=== PATIENT | female | born 1940 | race Caucasian/White ===

== ENCOUNTER → 2017-11-16 10:17 | Outpatient (CLI) | payer MEDICARE, OTHER, SELFPAY ==
--- NOTE | 2017-11-16 10:21 | US_ITS ---
STUDY: ABDOMINAL ULTRASOUND REASON FOR EXAM: Female, 77 years old. Abdominal pain. TECHNIQUE: Transabdominal ultrasound was performed with real-time and static gomez scale imaging. TECHNICAL QUALITY: Adequate. COMPARISON: None. FINDINGS: Liver: The liver measures 13.5 cm. There is normal echogenicity of the liver. The bile ducts are within normal limits. There is hepatic color flow. The direction of portal flow is hepatopetal. There is no demonstrated mass lesion. Gallbladder: Normal distended gallbladder. The gallbladder wall measures 1.9 mm. There is a negative sonographic Molina's sign. There is no pericholecystic fluid. There are no gallstones. Common Bile Duct (C.B.D.): The common bile duct measures 4.4 mm. Pancreas: Normal size of the head, body and tail of the pancreas. There is normal echogenicity of the pancreas. There is no demonstrated pancreatic mass or cyst. Spleen: Normal size of the spleen. The spleen measures 8.4 cm. Right Kidney: Normal size of the right kidney. The right kidney measures 9.3 cm in length. Normal renal cortex. The right cortex measures 1.0 cm. There is no demonstrated renal mass or cyst. There is no right hydronephrosis. Left Kidney: Normal size of the left kidney. The left kidney measures 7.5 cm in length. Normal renal cortex. The left cortex measures 1.2 cm. There is no demonstrated renal mass or cyst. There is no left hydronephrosis. Aorta: The visualized abdominal aorta is within normal limits. I.V.C.: The IVC is patent. There is no ascites. US/Abdomen Complete IMPRESSION: Normal abdominal ultrasound examination. Electronically Signed: Yulissa Reilly MD at 11:23 EDT Tel , Service support ,
== END ==
PROVIDERS: Family Provider Nurse Practitioner; PCP Nurse Practitioner; Visit Provider Nurse Practitioner
DX: R10.9 Unspecified abdominal pain (principal)
CPT/HCPCS: 76700

== ENCOUNTER → 2018-02-12 14:14 | Outpatient (CLI) | payer MEDICARE, OTHER, SELFPAY ==
--- NOTE | 2018-02-12 14:18 | RAD_ITS ---
STUDY: X-RAY - PELVIS AND RIGHT HIP REASON FOR EXAM: Female, 77 years old. Hip pain TECHNIQUE: Radiological exam, hip, unilateral, with pelvis when performed; minimum of 4 views COMPARISON: None. FINDINGS: There is a non-specific bowel gas pattern. Normal visualized soft tissue structures. Normal bilateral iliac wings, sacroiliac joints and visualized sacrum. Normal bilateral superior and inferior pubic rami. Normal pubic symphysis. Normal bilateral ischial tuberosities. There are degenerative changes of the visualized lumbar spine. Normal visualized femoral head. Normal acetabulum. Normal hip joint. RAD/HIP, UNI W/ Pelvis 2-3 Views IMPRESSION: Degenerative changes of the visualized lumbar spine. The bony pelvis and left and right hips are unremarkable. Electronically Signed: Justo Kennedy MD at 23:54 EDT , Service support ,
== END ==
PROVIDERS: Family Provider Nurse Practitioner; PCP Nurse Practitioner; Visit Provider Nurse Practitioner
DX: M25.551 Pain in right hip (principal)
CPT/HCPCS: 73502

== ENCOUNTER → 2018-03-22 13:22 | Outpatient (CLI) | payer MEDICARE, OTHER, SELFPAY ==
--- NOTE | 2018-03-22 13:25 | BI_ITS ---
MAMMOGRAPHY - BILATERAL SCREENING REASON FOR EXAM: Female, 77 years old. Routine annual screening examination. PERTINENT HISTORY: Non-contributory. TECHNIQUE: Digital bilateral breast iván (3D mammographic acquisition) in the CC and MLO projections. 2-D mediolateral oblique (MLO) and craniocaudad (CC) views of both breasts were obtained. CAD: Full Field Digital Mammography with Computer Added Detection was performed. COMPARISON: Comparison is made with prior study date March 09, 2017 and February 29, 2016. FINDINGS: Breast Composition: There are scattered areas of fibroglandular density. There are no dominant masses or suspicious calcifications. No other significant abnormalities are identified. There has been no significant change since the prior study. BI/SCREENING MAMM (CAD), BILAT IMPRESSION: Stable bilateral screening mammogram. Yearly follow-up mammogram recommended. (A) ASSESSMENT CATEGORY: BIRADS Category 1: Negative. A letter regarding these results will be sent to the patient by the facility within 30 days. Approximately 10% of breast cancers are not detected by mammography. A normal mammogram should not delay biopsy of a clinically suspicious abnormality. [id number] Electronically Signed: Sergio Perea MD at 10:28 EDT Tel [phone], Service support ,
--- NOTE | 2018-03-22 14:16 | BD_ITS ---
STUDY: DUAL ENERGY X-RAY ABSORPTIOMETRY / DXA REASON FOR EXAM: Female, 77 years old. The patient is postmenopausal. Loss of height. TECHNIQUE: Bone Mineral Density (BMD) measurements of lumbar spine and bilateral hips were obtained. COMPARISON: Comparison is made with prior examination dated April 25, 2013. FINDINGS: Lumbar Spine (L1-L4): g/cm2 (1.094) / T-score (-0.6) / Z-score (1.2) Findings are suggestive of normal bone density with a low fracture risk. Left Femur Total: g/cm2 (1.027) / T-score (0.2) / Z-score (2.1) Left Femoral Neck: g/cm2 (1.048) / T-score (0.1) / Z-score (2.2) Right Femur Total: g/cm2 (0.947) / T-score (-0.5) / Z-score (1.4) Right Femoral Neck: g/cm2 (0.979) / T-score (0.4) / Z-score (1.7) The T-Scores on the most recent prior examination were: Lumbar Spine (L1-L4): There has been worsening of bone density since the previous examination. Left Femur Total: which represents an improvement of 2.3%. Right Femur Total: which represents a worsening of 7.8%. BD/Dexa Bone Density Study IMPRESSION: The patient is considered normal as outlined below according to World Nico Organization (WHO) criteria with a low fracture risk. There has been worsening of bone density since the previous examination. Reference Information: The T-score is the number of standard deviations above or below the standard which is normal for young adults at their peak bone mineral density. The World Health Organization (WHO) interprets the T-scores as follows: Above -1 Normal bone density Between -1 and -2.5 Osteopenia Equal to / or below -2.5 Osteoporosis As a practical clinical guideline, osteopenia may be graded as follows: Mild -1 through -1.5 Moderate -1.6 through -2.0 Severe -2.1 through -2.4 The Z-score is the number of standard deviations above or below age-matched controls. A Z-score of less than -1.5 would be considered abnormal. References: 1. NIH Osteoporosis and Related Bone Diseases http://www.osteo.org 2. International Society for Clinical Densitometry http://www.iscd.org 3. National Osteoporosis Foundation http://www.nof.org Electronically Signed: Sergio Perea MD at 15:16 EDT Tel [phone], Service support ,
== END ==
PROVIDERS: Family Provider Nurse Practitioner; PCP Nurse Practitioner; Visit Provider Nurse Practitioner
DX: Z12.31 Encounter for screening mammogram for malignant neoplasm of breast (principal); Z78.0 Asymptomatic menopausal state
CPT/HCPCS: 77063; 77067; 77080

== ENCOUNTER 2018-05-04 12:15 | Outpatient (RCR) | payer MEDICARE, OTHER, SELFPAY ==
[2018-05-01 10:05] VITALS: BP 150/69; PULSE 80; RESP 18; TEMP 36.9; BMI 35.7
--- NOTE | 2018-05-01 10:54 | PCM.WC.HP ---
(1) GERD (gastroesophageal reflux disease) Status: Chronic Current Visit: No Code(s): K21.9 - Gastro-esophageal reflux disease without esophagitis (2) Osteoarthritis Status: Chronic Current Visit: No Code(s): M19.90 - Unspecified osteoarthritis, unspecified site (3) Edema of both legs Status: Chronic Current Visit: Yes Code(s): R60.0 - Localized edema (4) Hiatal hernia Status: Chronic Current Visit: No Code(s): K44.9 - Diaphragmatic hernia without obstruction or gangrene (5) Atherosclerotic heart disease of [place] coronary artery without angina pectoris Status: Chronic Current Visit: No Qualifiers: [place] vs. transplanted heart: [place] heart Code(s): I25.10 - Atherosclerotic heart disease of [place] coronary artery without angina pectoris (6) Failure to thrive Status: Chronic Current Visit: No Code(s): [id number] - (7) Positional vertigo Status: Chronic Current Visit: No Code(s): H81.10 - Benign paroxysmal vertigo, unspecified ear (8) Obesity Status: Chronic Current Visit: Yes Code(s): E66.9 - Obesity, unspecified (9) Hx of venous thrombosis and embolism Status: Chronic Current Visit: Yes Code(s): Z86.718 - Personal history of other venous thrombosis and embolism (10) history of cellulitis of leg Status: Chronic Current Visit: No (11) Leg swelling Status: Chronic Current Visit: Yes Code(s): M79.89 - Other specified soft tissue disorders (12) Hyperpigmentation of skin Status: Chronic Current Visit: Yes Code(s): L81.9 - Disorder of pigmentation, unspecified (13) Lipodermatosclerosis Status: Chronic Current Visit: Yes Code(s): I83.10 - Varicose veins of unspecified lower extremity with inflammation (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 Current Visit: Yes Code(s): I87.093 - Postthrombotic syndrome with other complications of bilateral lower extremity (15) Chronic venous hypertension (idiopathic) with inflammation of bilateral lower extremity Status: Chronic Current Visit: Yes Code(s): I87.323 - Chronic venous hypertension (idiopathic) with inflammation of bilateral lower extremity (16) Non-pressure chronic ulcer of left calf with fat layer exposed Status: Resolved Current Visit: Yes Code(s): L97.222 - Non-pressure chronic ulcer of left calf with fat layer exposed (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 Current Visit: No Code(s): E11.59 - Type 2 diabetes mellitus with other circulatory complications (18) Hyperlipidemia Status: Chronic Current Visit: No Qualifiers: Code(s): E78.5 - Hyperlipidemia, unspecified (19) Diabetes Status: Chronic Current Visit: No Code(s): E11.9 - Type 2 diabetes mellitus without complications (20) Hypertension Status: Chronic Current Visit: No Qualifiers: Code(s): I10 - Essential (primary) hypertension (21) Chronic venous hypertension (idiopathic) with ulcer of left lower extremity Status: Chronic Current Visit: Yes Code(s): I87.312 - Chronic venous hypertension (idiopathic) with ulcer of left lower extremity (22) Chronic venous stasis dermatitis Status: Chronic Current Visit: Yes Code(s): I87.2 - Venous insufficiency (chronic) (peripheral) (23) Non-pressure chronic ulcer of left ankle with fat layer exposed Status: Resolved Current Visit: Yes Code(s): L97.322 - Non-pressure chronic ulcer of left ankle with fat layer exposed (24) Type 2 diabetes mellitus Status: Chronic Current Visit: No Code(s): E11.9 - Type 2 diabetes mellitus without complications (25) Venous stasis ulcer Status: Chronic Current Visit: Yes Code(s): I83.009 - Varicose veins of unspecified lower extremity with ulcer of unspecified site; L97.909 - Non-pressure chronic ulcer of unspecified part of unspecified lower leg with unspecified severity History of Present Illness Chief Complaint: Severe swelling, edema, and lymphedema of the lower extremities associated with severe hyperpigmentation and lipodermatosclerosis; venous stasis dermatitis and venous stasis ulceration of left lower extremity; recent cat scratch of the left lower extremity History of Wound: This is a 77-year-old female who presents with an open wound on the distal aspect of the left lower extremity involving the gaiter area. According to the patient, she sustained a cat scratch by a strange cat approximately 3 weeks ago, which resulted in cellulitis. She has been evaluated by her primary care physician, at [facility], and has been prescribed Augmentin to be taken twice daily for a total of 10 days. She is in the midst of this prescription. Of significance, the patient has been treated in the past for manifestations of chronic venous disease, and has been advised of the proper conservative treatment measures relative to the management of this disease. Nonetheless, she has been largely noncompliant. She possesses graduated compression stockings, but has not been wearing them. She has been advised to elevate her lower extremities which is possible, but does so rarely. She sleeps in a recliner with her legs in a dependent position, which has been discouraged in the past. The patient is obese, which further exacerbates issues related to her chronic venous disease. Furthermore, she has been using peroxide topically at the site of the recent cat scratch. As mentioned, patient has a history of severe venous disease, and presents at this time with apparent exacerbation of her venous symptoms. This is likely due to her weight and noncompliance with recommended measures. The patient has been previously treated for an ulceration in the left lower extremity related to her venous disease. In 2010, the patient was treated for a deep vein thrombosis in the right lower extremity. She remained on Coumadin for many years. However, after gastrointestinal bleeding in September 2015, her Coumadin was discontinued. The patient has undergone vascular studies approximately 1 year ago, results of which revealed noncompressible vasculature at ankle level bilaterally, but normal digital-brachial indices bilaterally. 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 (Chronic) Positional vertigo (Chronic) Obesity (Chronic) Hx of venous thrombosis and embolism (Chronic) history of cellulitis of leg (Chronic) Leg swelling (Chronic) Hyperpigmentation of skin (Chronic) Lipodermatosclerosis (Chronic) 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) Localized edema (Chronic) 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 Surgical History: - - 2009 had colonoscopy 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 the 1979 fatty tumor tubal ligation 3 d&c spir removed. The patient underwent excision of a right hip lipoma in the past. Patient is a Ab0. Allergies/Adverse Reactions: Allergies atorvastatin calcium [From Lipitor] Allergy (Verified 09/21/17 11:28) Unknown ezetimibe [From Zetia] Allergy (Verified 09/21/17 11:28) Unknown lisinopril Allergy (Verified 09/21/17 11:28) Unknown neomycin [Neomycin] Allergy (Verified 09/21/17 11:28) Unknown neomycin sulfate [From Neosporin ([id number])] Allergy (Verified 09/21/17 11:28) Itching polymyxin B [Polymyxin B] Allergy (Verified 09/21/17 11:28) Unknown Sulfa (Sulfonamide Antibiotics) Allergy (Verified 09/21/17 11:28) Unknown tetracycline [Tetracycline] Allergy (Verified 09/21/17 11:28) Itching adhesive tape Adverse Reaction (Severe, Verified 09/21/17 11:28) Unknown Home Medications: Ambulatory Orders Medication Instructions Recorded Cholecalciferol (Vitamin D3) 2,000 unit PO DAILY 01/15/17 [Vitamin D3] Famotidine [Pepcid] 20 mg PO BID 01/15/17 Irbesartan [Avapro] 75 mg PO DAILY 01/15/17 Meclizine HCl [Antivert] 25 mg PO TID PRN PRN 01/15/17 Metformin HCl [Glucophage] 500 mg PO DAILY 01/15/17 Pentoxifylline [Trental] 400 mg PO TID 01/15/17 Potassium Chloride [K-Dur] 10 meq PO DAILY PRN 01/15/17 Pravastatin [Pravachol] 80 mg PO QHS 01/15/17 Torsemide [Demadex] 20 mg PO DAILY 01/15/17 cyanocobalamin (vit B-12) 1,000 1,000 mcg PO QDAY 09/21/17 mcg/mL oral drops - Family History Maternal Family History: Family History (Last Reviewed 09/21/17 @ 11:30 by Lila Costa) Mother CAD (coronary artery disease) Myocardial infarction Son Hypertension Brother Aortic aneurysm No pertinent history, - - Patient's father at age of 74 with a history of diabetes mellitus. The patient's mother at age of 59 with a myocardial infarction. Paternal Family History: Family History (Last Reviewed 09/21/17 @ 11:30 by Lila Costa) Mother CAD (coronary artery disease) Myocardial infarction Son Hypertension Brother Aortic aneurysm No pertinent history Smoking Status: Former smoker Tobacco Use: Non-smoker Alcohol: None Drugs: None Review of Systems Constitutional: Denies: Chills, Fever, Weight Change Eyes: Denies: Pain, Vision Change HEENT: Denies: Difficulty Hearing, Difficulty Swallowing, Sinus Congestion Cardiovascular: Denies: Chest Pain, Palpitations Respiratory: Denies: Cough, Shortness of Breath Gastrointestinal: Denies: Diarrhea, Nausea, Vomiting Genitourinary: Denies: Dysuria, Hematuria Endocrine: Denies: Heat/ Cold Intolerance, Polydipsia, Polyuria Hematologic/ Lymphatic: Denies: Easy Bruising, Easy Bleeding - Physical Exam Vital Signs Temp Pulse Resp BP 98.4 F 80 18 150/69 H 05/01/18 10:05 05/01/18 10:05 05/01/18 10:05 05/01/18 10:05 General: Alert, Oriented x3, Cooperative, No apparent distress, Well developed, Well nourished, - - Patient is obese HEENT: Atraumatic, PERRLA, EOMI, Normocephalic Oral: Moist Mucosa, No Gingival or Mucosal Lesions/ Ulcerations Neck: Supple, No JVD, Negative Carotid Bruits, Negative Hepatojugular Reflux, No Nodes, No Nuchal Rigidity, Trachea Midline Lungs: Clear to auscultation, Normal air movement, No rhonchi, No wheeze, No rales Cardiovascular: Regular rate, Regular Rhythm, Normal S1, Normal S2, No murmurs Abdomen: Soft, Non Tender, Non-Distended, Obese Extremities: No clubbing, No cyanosis, No Calf Tenderness, - - Severe swelling and edema are noted in the lower extremities bilaterally, particularly involving the ankles. In the right lower extremity, the skin is intact. There is a diffuse erythema in the right gaiter area. On the left, there is a large superficial ulceration in the gaiter area. There is erythema in the gaiter area as well. There is no evidence of a cat scratch. However, the appearance of the ulceration is consistent with a venous stasis ulceration. Dimensions are documented elsewhere. Swab cultures have been obtained for both aerobic and anaerobic bacterial growth. Wound Measurements and Assessment WC - Nurse 1 - General Ulcer Measurement Start: 05/01/18 09:46 Freq: Status: Active Protocol: Activity Type Activity Date Activity User E-Sign Co-Sign Detail Recorded Client Recorded Date Recorded By Document 05/01/18 10:05 [id number] 05/01/18 10:17 05/01/18 10:05 Wound Center Nurse 1 [Ulcer Assessment] #2 cat scratch-cellulits -Combined with other wound No -Current Size (cm) - Length 0.1 -Current Size (cm) - Width 0.1 -Current Size (cm) - Depth 0.1 -Total Square Cm 0.01 -Date of Last Picture (Recall this 05/01/18 field) -Photo Taken Yes -Epithelialization Large 67-100% -Tunneling No -Undermining/Tunneling No -Circular Undermining No -Classification - Thickness Partial Thickness -Exudate Amt Small (1-33%) -Exudate Type Serous -Wound Margin Distinct, Outline Attached -Granulation Amt Large (67-100%) -Granulation Quality [place] -Slough/Fibrin Yes -Necrosis Amt Small (1-33%) -Necrotic Tissue Type Adherent Slough -Structure Exposed None/Limited to Skin Breakdown -Texture (Leslye-wound Skin Appearance) Assessed Excoriation Friable Localized Edema Scarring -Moisture (Leslye-wound Skin Appearance Assessed ) Weeping -Color (Leslye-wound Skin Appearance) Assessed Erythema Hemosiderin Staining -Temperature (Leslye-wound Skin No Abnormality Appearance) (Pt Warm) -Tenderness on Palpation (Leslye-wound No Skin Appearance) -Ulcer Cleansing Rinsed/ Irrigated with Saline -Foul Odor after Cleansing No -Anesthetic Used 5% Lidocaine Gel [Edema Assessment] -Lower Limb Edema Present Yes -Right Calf (cm) 40.0 -Right Ankle (cm) 28.0 -Left Calf (cm) 41.5 -Left Ankle (cm) 30.0 JEAN PAUL - Nurse 2 - General Ulcer CM Notes Start: 05/01/18 09:46 Freq: Status: Active Protocol: Activity Type Activity Date Activity User E-Sign Co-Sign Detail Recorded Client Recorded Date Recorded By Document 05/01/18 10:41 [id number] 05/01/18 10:52 05/01/18 10:41 Wound Center Nurse 2 [Procedure/Treatment] #2 cat scratch-cellulits -Time 10:41 -Correct Patient Yes -Correct Side, Site, Position Yes -Correct Procedure Yes -Procedure Performed No -Wound/Ulcer Outcome Not Healed -Ulcer Cleansing Rinsed/ Irrigated with Saline -Foul Odor after Cleansing No -Topical Lidocaine (%) 4 -Lidocaine (ml) 10 -Bleeding Controlled with NA [See Physician Procedure note for Specifics] Pain Scale: 0-10 Numeric [Pain] -Is Patient Pain Free? Yes Neurological: Cranial nerves II-XII grossly intact, Neuro grossly intact Psych/Mental Status: Normal Affect, Appropriate, Alert and oriented to time, place, person, mood and affect Debridement Note Post-Debridement Measurements/Treatment JEAN PAUL - Nurse 2 - General Ulcer CM Notes Start: 05/01/18 09:46 Freq: Status: Active Protocol: Activity Type Activity Date Activity User E-Sign Co-Sign Detail Recorded Client Recorded Date Recorded By Document 05/01/18 10:41 [id number] 05/01/18 10:52 05/01/18 10:41 Wound Center Nurse 2 #2 cat scratch-cellulits -Time 10:41 -Correct Patient Yes -Correct Side, Site, Position Yes -Correct Procedure Yes -Procedure Performed No -Wound/Ulcer Outcome Not Healed -Ulcer Cleansing Rinsed/ Irrigated with Saline -Foul Odor after Cleansing No -Topical Lidocaine (%) 4 -Lidocaine (ml) 10 -Bleeding Controlled with NA Pain Scale: 0-10 Numeric Is Patient Pain Free? 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 She has been previously treated for ulcerations in the left lower extremity. However, despite clear instructions as to the appropriate management of her chronic venous disease, the patient has been largely noncompliant. She sits for prolonged periods of time. She is not very active. She sleeps in recliner with her legs in a dependent position. She does not reliably elevate her lower extreme these each day. She has failed to use compression as previously prescribed. Furthermore, she has been using peroxide topically to the ulceration in the distal left lower extremity. She relates a recent cat scratch to this area approximately 3 weeks ago, but the appearance of the ulceration is more consistent with the patient's history of chronic venous disease. The lack of compliance with previously recommended measures is likely the cause of the patient's presenting symptoms and manifestations. Plan: We have discussed the implementation of conservative treatment measures, and redoubling of the patient's efforts in this regard. The patient appears somewhat resistant to this idea. She has been largely noncompliant in the past. Leg elevation has been recommended. Her legs are to be elevated to heart level, or higher. This is to be accomplished during day and night time hours. She has been encouraged to sleep on a flat surface at night. Activity has been recommended. Prolonged idle sitting has been discouraged. Weight loss has been recommended. We are to implement compression to the left lower extremity by means of an [place] boot, which will be applied today, and changed twice weekly. The patient has been advised that the use of peroxide topically has been counterproductive. Patient has been advised to continue with her prescription for Augmentin twice daily for 10 days. Wound cultures have been obtained, and results will be awaited. The patient has previous venous and arterial studies, which do not appear to require repeating. The patient has return in 1 week for reassessment. The patient is not a smoker. Influenza vaccine was not administered today. Patient weighs 171 pounds. She stands 4 feet 10 inches tall, her BMI is 35.7, which places her in an obese class II category. Weight loss has been recommended, in collaboration with the patient's primary care physician has been advised in this regard.
--- NOTE | 2018-05-01 10:58 | HP.PCM_ITS ---
(1) GERD (gastroesophageal reflux disease) Status: Chronic Current Visit: No Code(s): K21.9 - Gastro-esophageal reflux disease without esophagitis (2) Osteoarthritis Status: Chronic Current Visit: No Code(s): M19.90 - Unspecified osteoarthritis, unspecified site (3) Edema of both legs Status: Chronic Current Visit: Yes Code(s): R60.0 - Localized edema (4) Hiatal hernia Status: Chronic Current Visit: No Code(s): K44.9 - Diaphragmatic hernia without obstruction or gangrene (5) Atherosclerotic heart disease of [place] coronary artery without angina pectoris Status: Chronic Current Visit: No Qualifiers: [place] vs. transplanted heart: [place] heart Code(s): I25.10 - Atherosclerotic heart disease of [place] coronary artery without angina pectoris (6) Failure to thrive Status: Chronic Current Visit: No Code(s): [id number] - (7) Positional vertigo Status: Chronic Current Visit: No Code(s): H81.10 - Benign paroxysmal vertigo, unspecified ear (8) Obesity Status: Chronic Current Visit: Yes Code(s): E66.9 - Obesity, unspecified (9) Hx of venous thrombosis and embolism Status: Chronic Current Visit: Yes Code(s): Z86.718 - Personal history of other venous thrombosis and embolism (10) history of cellulitis of leg Status: Chronic Current Visit: No (11) Leg swelling Status: Chronic Current Visit: Yes Code(s): M79.89 - Other specified soft tissue disorders (12) Hyperpigmentation of skin Status: Chronic Current Visit: Yes Code(s): L81.9 - Disorder of pigmentation, unspecified (13) Lipodermatosclerosis Status: Chronic Current Visit: Yes Code(s): I83.10 - Varicose veins of unspecified lower extremity with inflammation (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 Current Visit: Yes Code(s): I87.093 - Postthrombotic syndrome with other complications of bilateral lower extremity (15) Chronic venous hypertension (idiopathic) with inflammation of bilateral lower extremity Status: Chronic Current Visit: Yes Code(s): I87.323 - Chronic venous hypertension (idiopathic) with inflammation of bilateral lower extremity (16) Non-pressure chronic ulcer of left calf with fat layer exposed Status: Resolved Current Visit: Yes Code(s): L97.222 - Non-pressure chronic ulcer of left calf with fat layer exposed (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 Current Visit: No Code(s): E11.59 - Type 2 diabetes mellitus with other circulatory complications (18) Hyperlipidemia Status: Chronic Current Visit: No Qualifiers: Code(s): E78.5 - Hyperlipidemia, unspecified (19) Diabetes Status: Chronic Current Visit: No Code(s): E11.9 - Type 2 diabetes mellitus without complications (20) Hypertension Status: Chronic Current Visit: No Qualifiers: Code(s): I10 - Essential (primary) hypertension (21) Chronic venous hypertension (idiopathic) with ulcer of left lower extremity Status: Chronic Current Visit: Yes Code(s): I87.312 - Chronic venous hypertension (idiopathic) with ulcer of left lower extremity (22) Chronic venous stasis dermatitis Status: Chronic Current Visit: Yes Code(s): I87.2 - Venous insufficiency (chronic) (peripheral) (23) Non-pressure chronic ulcer of left ankle with fat layer exposed Status: Resolved Current Visit: Yes Code(s): L97.322 - Non-pressure chronic ulcer of left ankle with fat layer exposed (24) Type 2 diabetes mellitus Status: Chronic Current Visit: No Code(s): E11.9 - Type 2 diabetes mellitus without complications (25) Venous stasis ulcer Status: Chronic Current Visit: Yes Code(s): I83.009 - Varicose veins of unspecified lower extremity with ulcer of unspecified site; L97.909 - Non-p ressure chronic ulcer of unspecified part of unspecified lower leg with unspecified severity History of Present Illness Chief Complaint: Severe swelling, edema, and lymphedema of the lower extremities associated with severe hyperpigmentation and lipodermatosclerosis; venous stasis dermatitis and venous stasis ulceration of left lower extremity; recent cat scratch of the left lower extremity History of Wound: This is a 77-year-old female who presents with an open wound on the distal aspect of the left lower extremity involving the gaiter area. According to the patient, she sustained a cat scratch by a strange cat approximately 3 weeks ago, which resulted in cellulitis. She has been evaluated by her primary care physician, at [facility], and has been prescribed Augmentin to be taken twice daily for a total of 10 days. She is in the midst of this prescription. Of significance, the patient has been treated in the past for manifestations of chronic venous disease, and has been advised of the proper conservative treatment measures relative to the management of this disease. Nonetheless, she has been largely noncompliant. She possesses graduated compression stockings, but has not been wearing them. She has been advised to elevate her lower extremities which is possible, but does so rarely. She sleeps in a recliner with her legs in a dependent position, which has been discouraged in the past. The patient is obese, which further exacerbates issues related to her chronic venous disease. Furthermore, she has been using peroxide topically at the site of the recent cat scratch. As mentioned, patient has a history of severe venous disease, and presents at this time with apparent exacer bation of her venous symptoms. This is likely due to her weight and noncompliance with recommended measures. The patient has been previously treated for an ulceration in the left lower extremity related to her venous disease. In 2010, the patient was treated for a deep vein thrombosis in the right lower extremity. She remained on Coumadin for many years. However, after gastrointestinal bleeding in September 2015, her Coumadin was discontinued. The patient has undergone vascular studies approximately 1 year ago, results of which revealed noncompressible vasculature at ankle level bilaterally, but normal digital-brachial indices bilaterally. 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 (Chronic) Positional vertigo (Chronic) Obesity (Chronic) Hx of venous thrombosis and embolism (Chronic) history of cellulitis of leg (Chronic) Leg swelling (Chronic) Hyperpigmentation of skin (Chronic) Lipodermatosclerosis (Chronic) 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) Localized edema (Chronic) 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 Surgical History: - - 2009 had colonoscopy 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 the 1960s 1980 fatty tumor tubal ligation 3 d&c spir removed. The patient underwent excision of a right hip lipoma in the past. Patient is a Ab0. Allergies/Adverse Reactions: Allergies atorvastatin calcium [From Lipitor] Allergy (Verified 09/21/17 11:28) Unknown ezetimibe [From Zetia] Allergy (Verified 09/21/17 11:28) Unknown lisinopril Allergy (Verified 09/21/17 11:28) Unknown neomycin [Neomycin] Allergy (Verified 09/21/17 11:28) Unknown neomycin sulfate [From Neosporin ([id number])] Allergy (Verified 09/21/17 11:28) Itching polymyxin B [Polymyxin B] Allergy (Verified 09/21/17 11:28) Unknown Sulfa (Sulfonamide Antibiotics) Allergy (Verified 09/21/17 11:28) Unknown tetracycline [Tetracycline] Allergy (Verified 09/21/17 11:28) Itching adhesive tape Adverse Reaction (Severe, Verified 09/21/17 11:28) Unknown Home Medications: Ambulatory Orders Medication Instructions Recorded Cholecalciferol (Vitamin D3) 2,000 unit PO DAILY 01/15/17 [Vitamin D3] Famotidine [Pepcid] 20 mg PO BID 01/15/17 Irbesartan [Avapro] 75 mg PO DAILY 01/15/17 Meclizine HCl [Antivert] 25 mg PO TID PRN PRN 01/15/17 Metformin HCl [Glucophage] 500 mg PO DAILY 01/15/17 Pentoxifylline [Trental] 400 mg PO TID 01/15/17 Potassium Chloride [K-Dur] 10 meq PO DAILY PRN 08/13/17 Pravastatin [Pravachol] 80 mg PO QHS 01/15/17 Torsemide [Demadex] 20 mg PO DAILY 01/15/17 cyanocobalamin (vit B-12) 1,000 1,000 mcg PO QDAY 09/21/17 mcg/mL oral drops - Family History Maternal Family History: Family History (Last Reviewed 09/21/17 @ 11:30 by Lila Costa) Mother CAD (coronary artery disease) Myocardial infarction Son Hypertension Brother Aortic aneurysm No pertinent history, - - Patient's father at age of 74 with a history of diabetes mellitus. The patient's mother at age of 59 with a myocardial infarction. Paternal Family History: Family History (Last Reviewed 09/21/17 @ 11:30 by Lila Costa) Mother CAD (coronary artery disease) Myocardial infarction Son Hypertension Brother Aortic aneurysm No pertinent history Smoking Status: Former smoker Tobacco Use: Non-smoker Alcohol: None Drugs: None Review of Systems Constitutional: Denies: Chills, Fever, Weight Change Eyes: Denies: Pain, Vision Change HEENT: Denies: Difficulty Hearing, Difficulty Swallowing, Sinus Congestion Cardiovascular: Denies: Chest Pain, Palpitations Respiratory: Denies: Cough, Shortness of Breath Gastrointestinal: Denies: Diarrhea, Nausea, Vomiting Genitourinary: Denies: Dysuria, Hematuria Endocrine: Denies: Heat/ Cold Intolerance, Polydipsia, Polyuria Hematologic/ Lymphatic: Denies: Easy Bruising, Easy Bleeding - Physical Exam Vital Signs Temp Pulse Resp BP 98.4 F 80 18 150/69 H 05/01/18 10:05 05/01/18 10:05 05/01/18 10:05 05/01/18 10:05 General: Alert, Oriented x3, Cooperative, No apparent distress, Well developed, Well nourished, - - Patient is obese HEENT: Atraumatic, PERRLA, EOMI, Normocephalic Oral: Moist Mucosa, No Gingival or Mucosal Lesions/ Ulcerations Neck: Supple, No JVD, Negative Carotid Bruits, Negative Hepatojugular Reflux, No Nodes, No Nuchal Rigidity, Trachea Midline Lungs: Clear to auscultation, Normal air movement, No rhonchi, No wheeze, No rales Cardiovascular: Regular rate, Regular Rhythm, Normal S1, Normal S2, No murmurs Abdomen: Soft, Non Tender, Non-Distended, Obese Extremities: No clubbing, No cyanosis, No Calf Tenderness, - - Severe swelling and edema are noted in the lower extremities bilaterally, particularly involving the ankles. In the right lower extremity, the skin is intact. There is a diffuse erythema in the right gaiter area. On the left, there is a large superficial ulceration in the gaiter area. There is erythema in the gaiter area as well. There is no evidence of a cat scratch. However, the appearance of the ulceration is consistent with a venous stasis ulceration. Dimensions are documented elsewhere. Swab cultures have been obtained for both aerobic and anaerobic bacterial growth. Wound Measurements and Assessment WC - Nurse 1 - General Ulcer Measurement Start: 05/01/18 09:46 Freq: Status: Active Protocol: Activity Type Activity Date Activity User E-Sign Co-Sign Detail Recorded Client Recorded Date Recorded By Document 05/01/18 10:05 [id number] 05/01/18 10:17 TM 05/01/18 10:05 Wound Center Nurse 1 [Ulcer Assessment] #2 cat scratch-cellulits -Combined with other wound No -Current Size (cm) - Length 0.1 -Current Size (cm) - Width 0.1 -Current Size (cm) - Depth 0.1 -Total Square Cm 0.01 -Date of Last Picture (Recall this 05/01/18 field) -Photo Taken Yes -Epithelialization Large 67-100% -Tunneling No -Undermining/Tunneling No -Circular Undermining No -Classification - Thickness Partial Thickness -Exudate Amt Small (1-33%) -Exudate Type Serous -Wound Margin Distinct, Outline Attached -Granulation Amt Large (67-100%) -Granulation Quality [place] -Slough/Fibrin Yes -Necrosis Amt Small (1-33%) -Necrotic Tissue Type Adherent Slough -Structure Exposed None/Limited to Skin Breakdown -Texture (Leslye-wound Skin Appearance) Assessed Excoriation Friable Localized Edema Scarring -Moisture (Leslye-wound Skin Appearance Assessed ) Weeping -Color (Leslye-wound Skin Appearance) Assessed Erythema Hemosiderin Staining -Temperature (Leslye-wound Skin No Abnormality Appearance) (Pt Warm) -Tenderness on Palpation (Leslye-wound No Skin Appearance) -Ulcer Cleansing Rinsed/ Irrigated with Saline -Foul Odor after Cleansing No -Anesthetic Used 5% Lidocaine Gel [Edema Assessment] -Lower Limb Edema Present Yes -Right Calf (cm) 40.0 -Right Ankle (cm) 28.0 -Left Calf (cm) 41.5 -Left Ankle (cm) 30.0 WC - Nurse 2 - General Ulcer CM Notes Start: 05/01/18 09:46 Freq: Status: Active Protocol: Activity Type Activity Date Activity User E-Sign Co-Sign Detail Recorded Client Recorded Date Recorded By Document 05/01/18 10:41 [id number] 05/01/18 10:52 05/01/18 10:41 Wound Center Nurse 2 [Procedure/Treatment] #2 cat scratch-cellulits -Time 10:41 -Correct Patient Yes -Correct Side, Site, Position Yes -Correct Procedure Yes -Procedure Performed No -Wound/Ulcer Outcome Not Healed -Ulcer Cleansing Rinsed/ Irrigated with Saline -Foul Odor after Cleansing No -Topical Lidocaine (%) 4 -Lidocaine (ml) 10 -Bleeding Controlled with NA [See Physician Procedure note for Specifics] Pain Scale: 0-10 Numeric [Pain] -Is Patient Pain Free? Yes Neurological: Cranial nerves II-XII grossly intact, Neuro grossly intact Psych/Mental Status: Normal Affect, Appropriate, Alert and oriented to time, place, person, mood and affect Debridement Note Post-Debridement Measurements/Treatment JEAN PAUL - Nurse 2 - General Ulcer CM Notes Start: 05/01/18 09:46 Freq: Status: Active Protocol: Activity Type Activity Date Activity User E-Sign Co-Sign Detail Recorded Client Recorded Date Recorded By Document 05/01/18 10:41 [id number] 05/01/18 10:52 05/01/18 10:41 Wound Center Nurse 2 #2 cat scratch-cellulits -Time 10:41 -Correct Patient Yes -Correct Side, Site, Position Yes -Correct Procedure Yes -Procedure Performed No -Wound/Ulcer Outcome Not Healed -Ulcer Cleansing Rinsed/ Irrigated with Saline -Foul Odor after Cleansing No -Topical Lidocaine (%) 4 -Lidocaine (ml) 10 -Bleeding Controlled with NA Pain Scale: 0-10 Numeric Is Patient Pain Free? 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 She has been previously treated for ulcerations in the left lower extremity. However, despite clear instructions as to the appropriate management of her chronic venous disease, the patient has been largely noncompliant. She sits for prolonged periods of time. She is not very active. She sleeps in recliner with her legs in a dependent position. She does not reliably elevate her lower extreme these each day. She has failed to use compression as previously prescribed. Furthermore, she has been using peroxide topically to the ulceration in the distal left lower extremity. She relates a recent cat scratch to this area approximately 3 weeks ago, but the appearance of the ulceration is more consistent with the patient's history of chronic venous disease. The lack of compliance with previously recommended measures is likely the cause of the patient's presenting symptoms and manifestations. Plan: We have discussed the implementation of conservative treatment measures, and redoubling of the patient's efforts in this regard. The patient appears somewhat resistant to this idea. She has been largely noncompliant in the past. Leg elevation has been recommended. Her legs are to be elevated to heart level, or higher. This is to be accomplished during day and night time hours. She has been encouraged to sleep on a flat surface at night. Activity has been recommended. Prolonged idle sitting has been discouraged. Weight loss has been recommended. We are to implement compression to the left lower extremity by means of an [place] boot, which will be applied today, and changed twice weekly. The patient has been advised that the use of peroxide topically has been counterproductive. Patient has been advised to continue with her prescription for Augmentin twice daily for 10 days. Wound cultures have been obtained, and results will be awaited. The patient has previous venous and arterial studies, which do not appear to require repeating. The patient has return in 1 week for reassessment. The patient is not a smoker. Influenza vaccine was not administered today. Patient weighs 171 pounds. She stands 4 feet 10 inches tall, her BMI is 35.7, which places her in an obese class II category. Weight loss has been recommended, in collaboration with the patient's primary care physician has been advised in this regard.
[2018-05-04 12:09] VITALS: BP 152/72; PULSE 87; RESP 16; TEMP 36.9; BMI 35.7
--- OUTSIDE RECORDS SUMMARY | 2018-06-12 22:34 | XMS RPT_ITS | Continuity of Care Document ---
:1940 Author Organization [facility] Address [facility] [address] [place] [address] Phone Care Team Providers Name Role Phone Lesly Chairez CNP Unavailable [facility] Unavailable Edin BAUTISTA, Balwinder Tam Unavailable Matt Phelps Unavailable Elana BAUTISTA, Akosua Lackey Unavailable Dr. Prashant Hoffman Unavailable Liyah Diane Unavailable Dr. Shayla Goodman Unavailable Dr. Jonathan Oates Unavailable Eufemia Lemos Unavailable Unavailable Slarb SHAMPOO ASSISTANT, Maria T Unavailable Unavailable Long SHAMPOO ASSISTANT, Dima L Unavailable Unavailable Unavailable Unavailable Problems Name Dates Details Abdominal pain (R10.9, 789.00) Status: Active Anemia (D64.9, 285.9) Status: Active Arthritis (M19.90, 716.90) Comments: cant take aleve or ibuprofen ok for tylenol Status: Active Bee sting (T63.441A, 989.5) Status: Active Bee sting, accidental or unintentional, initial encounter (T63.441A, 989.5) Status: Active BMI 31.0-31.9,adult (Z68.31, V85.31) Status: Active BMI 31.0-31.9,adult (Z68.31, V85.31) Status: Active BMI 31.0-31.9,adult (Z68.31, V85.31) Status: Active Breast screening (Z12.39, V76.10) Status: Active Chronic stasis dermatitis (I87.2, 454.1) Comments: see Dr. roper. put on trental, creams and set up with cardiology. Status: Active Coronary artery disease (I25.10, 414.00) Comments: cath 1-14 mild. stres test [address] bledsoe Status: Active Current nonsmoker (Renamed from Current non-smoker) (Z78.9, V49.89) Status: Active Decubitus ulcer of buttock, left, stage I (707.05) Comments: told to get pressure off the sore. 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 see chiropactor Status: Active Deliveries (Parity) Comments: Term, 3 Status: Active Diabetes mellitus type II, controlled (E11.9, 250.00) Comments: stable good now. . metformin and creat great. A1c 5.2, will decrease metformin in 1/2, still with low BS 78 fasting and A1C 5.2 continue to decrease metformin take 1/2 tab qod, now will DC glucophageeye exam regularly yearly, ekg per cardio Status: Active Diabetic retinopathy, background (E11.319, 250.50) Status: Active Early satiety (R68.81, 780.94) Comments: gastric emptying normal esophagel ulcer healed Status: Active Edema extremities (R60.0, 782.3) Status: Active Encounter for Medicare annual wellness exam (Z00.00, V70.0) Comments: reviewed with patient all questions. not alot urinary incontinence. use water pill and if make there okay. no pap after 70. 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 both deep and superficial. pt had clot without incident and with supperficial clot in past she by literature at 10 % change to have another DVT regardless of tests. with bleedign now have to be off. Status: Active History of systemic reaction to bee sting (Z91.030, V15.06) Status: Active Hypercholesteremia (E78.00, 272.0) Comments: on pravachol labs stable Status: Active Hypercholesteremia (E78.00, 272.0) Status: Active Hypertension, benign (I10, 401.1) Comments: on avapro and stable and diuretic prn with k prn Status: Active Irritable bowel syndrome (K58.9, 564.1) Status: Active intermediate current use of 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 therapy (Z79.01, V58.61) Status: Active Low back pain, episodic (M54.5, 724.2) Comments: chronic low back pain, sees chiropracter without relief xray, takes acetamenophen, cannot take nsaids or ASAhad normal bone density in 2012 Status: Active Lymphedema, limb (I89.0, 457.1) Comments: better now with weight loss, uses compression stockings can only do 4 hrs Status: Active Need for prophylactic vaccination and inoculation against influenza (Renamed from Need for immunization against influenza) (Z23, V04.81) Status: Active Need for prophylactic vaccination and inoculation against influenza (Renamed from Need for immunization against influenza) (Z23, V04.81) Status: Active Nonsmoker (Z78.9, V49.89) Status: Active Obesity (E66.9, 278.00) Comments: pt not as hungry and loosing weight gradually which is good. Status: Active Postmenopausal (Renamed from Postmenopausal status) (Z78.0, V49.81) Status: Active Pregnancies () Comments: 3 Status: Active Sleep disorder (G47.9, 780.50) Comments: stable Status: Active Superficial thrombophlebitis (I80.9, 451.9) Comments: seeing Brothers, ASA cannot take Status: Active Tenosynovitis, de Quervain (M65.4, 727.04) Comments: rt wrist Status: Active Unspecified Diagnosis Status: Active Unspecified Diagnosis Status: Active Unspecified Diagnosis Status: Active Unspecified Diagnosis Status: Active VACCINE AGAINST INFLUENZA (Z23, V04.81) Status: Active Venous (peripheral) insufficiency (I87.2, 459.81) Comments: better since lost weight Status: Active Vitamin B12 deficiency (E53.8, 266.2) Comments: start Aug 02 for B12 122 Status: Active Vitamin D deficiency, unspecified (E55.9, 268.9) Comments: last in May was 30, now 22 will increase to D3 to 4000 daily Status: Active Weight loss (R63.4, 783.21) Comments: unintentional Status: Active Medications Name Dates Details Avapro 75 MG Oral Tablet 1 (one) Tablet QD for 0 days Quantity: 30 {Tablet} Refills: 6 Ordered:01-Sep-2017 Lesly Chairez CNP, CNP, Fátima Start : 01-Sep-2017 Active Cyanocobalamin 2500 MCG Sublingual Tablet Sublingual 1 (one) Microgram Microgram daily sublingual for 0 days Quantity: 30 {Milligram} Refills: 3 Ordered:02-Aug-2017 Dima Alexander LPN Start : 02-Aug-2017 Active Demadex 20 MG Oral Tablet 1 (one) Tablet qd prn for 0 days Quantity: 30 {Tablet} Refills: 3 Ordered:25-Jan-2018 Wendy June DO Start : 25-Jan-2018 Active DIABETIC TESTING SUPPLIES ( Strip) (Free Text) uad Strip up to QID for 0 days Quantity: 2 {Box} Refills: 6 Ordered:02-Jun-2014 Akosua Enrique MD Start : 02-Jun-2014 Active Comments:True Test Strips DX: 250.00NPI: [id number] Horse Otoe 300 MG Oral Capsule 1 qd (300 MG) Active Comments:per derm HydrOXYzine HCl 25 MG Oral Tablet 1 (one) Tablet bid prn for 10 days Quantity: 30 {Tablet} Refills: 1 Ordered:16-Apr-2018 Mihaela RODRIGUEZ Lesly CENTENOjaja RODRIGUEZ Lesly Chatman Start : 16-Apr-2018 Active MECLIZINE HCL, 25MG (Oral Tablet) 1 Tablet tid/prn for 0 days Quantity: 30 {Tablet} Refills: 0 Ordered:29-Sep-2015 Mihaela RODRIGUEZ Lesly Álvarezmichael RODRIGUEZ Lesly Chatman Start : 29-Sep-2015 Active Pentoxifylline ER 400 MG Oral Tablet Extended Release 1 (one) Tablet ER tid for 0 days Quantity: 90 {Tablet} Refills: 6 Ordered:27-Mar-2017 Mihaela RODRIGUEZ Lesly Álvarezmichael RODRIGUEZ Lesly Chatman Start : 27-Mar-2017 Active PEPCID, 20MG (Oral Tablet) 1 Tablet bid for 0 days Quantity: 60 {Tablet} Refills: 0 Ordered:19-Oct-2015 Akosua Enrique MD Start : 19-Oct-2015 Active Potassium Chloride ER 10 MEQ Oral Capsule Extended Release 1 Capsule ER qd prn when on water pill for 30 days Quantity: 30 {Capsule} Refills: 2 Ordered:29-Jan-2018 Mihaela RODRIGUEZ Lesly Álvarezmichael RODRIGUEZ Lesly Chatman Start : 29-Jan-2018 Active Pravachol 80 MG Oral Tablet 1 (one) Tablet qod for 0 days Quantity: 15 {Tablet} Refills: 6 Ordered:12-Feb-2018 Mihaela RODRIGUEZ Lesly Álvarezmichael RODRIGUEZ Lesly Chatman Start : 12-Feb-2018 Active Sucralfate 1 GM Oral Tablet 1 (one) Tablet qid prn for 0 days Quantity: 120 {Tablet} Refills: 3 Ordered:06-Nov-2017 Mihaela RODRIGUEZ Lesly Álvarezmichael RODRIGUEZ Lesly Chatman Start : 06-Nov-2017 Active Vitamin D3 Super Strength 2000 UNIT Oral Capsule 2 (two) Capsule Capsule daily for 0 days Quantity: 60 {Capsule} Refills: 0 Ordered:06-Nov-2017 Dima Alexander LPN Start : 02-Aug-2017 Active ACTOS, 45MG (Oral Tablet) 1/2 Tablet QD for 0 days Quantity: 30 {Tablet} Refills: 6 Ordered:15-Feb-2007 MATT Maloney Start : 15-Feb-2007 End : 15-Jul-2008 Inactive Amoxicillin-Pot Clavulanate 875-125 MG Oral Tablet 1 (one) Tablet Tablet bid for 0 days Quantity: 20 {Tablet} Refills: 0 Ordered:13-Mar-2017 SlaMaria T desouza LPN Start : 12-Jan-2017 End : 13-Mar-2017 Inactive ASPIRIN, 81MG (Oral Tablet) 1 qd for 0 days Refills: 0 Ordered:17-Sep-2015 MATT Maloney End : 17-Sep-2015 Inactive BACITRACIN ZINC, 500UNIT/GM (External Ointment) 1 Ointment bid for 14 days Quantity: 1 {Ointment} Refills: 1 Ordered:25-Jan-2013 MATT Maloney Start : 08-Jan-2013 End : 25-Jan-2013 Inactive Comments:large BACITRACIN, 500UNIT/GM (External Ointment) 1 Ointment bid for 0 days Quantity: 1 {Ointment} Refills: 0 Ordered:07-Jan-2013 MATT Maloney Start : 24-Dec-2012 End : 07-Jan-2013 Inactive BENADRYL, 25MG (Oral Tablet) Tablet for 0 days Refills: 0 Ordered:08-Jan-2007 MATT Maloney Start : 08-Jan-2007 End : 15-Jul-2008 Inactive Comments:OTC Cefdinir 300 MG Oral Capsule 1 (one) Capsule bid for 7 days Quantity: 14 {Capsule} Refills: 0 Ordered:24-Mar-2016 Wendy June DO Start : 24-Mar-2016 End : 31-Mar-2016 Inactive CEPHALEXIN, 500MG (Oral Capsule) 1 (one) Capsule bid for 10 days Quantity: 20 {Capsule} Refills: 0 Ordered:14-Jun-2012 Akosua Enrique MD Start : 14-Jun-2012 End : 24-Jun-2012 Inactive Comments:pt will call if need CEPHALEXIN, 500MG (Oral Tablet) 1 Tablet 4 times day for 0 days Quantity: 40 {Tablet} Refills: 0 Ordered:28-Apr-2014 MATT Maloney Start : 10-Feb-2014 End : 28-Apr-2014 Inactive CINNAMON, 500MG (Oral Capsule) 1 qd for 0 days Refills: 0 Ordered:29-Apr-2013 MATT Maloney End : 29-Apr-2013 Inactive CLARITIN, 10MG (Oral Tablet) 1 (one) Tablet daily for 0 days Quantity: 14 {Tablet(s)} Refills: 0 Ordered:29-Apr-2013 MTAT Maloney Start : 25-Jan-2013 End : 29-Apr-2013 Inactive Comments:OTC CLOBETASOL PROPIONATE, 0.05% (External Cream) uad Cream to affected area(s) prn for 0 days Quantity: 1 {Tube} Refills: 1 Ordered:17-Sep-2015 MATT Maloney Start : 28-Apr-2014 End : 17-Sep-2015 Inactive Clotrimazole 10 MG Mouth/Throat Roney 1 (one) Roney 5x daily for 10 days Quantity: 50 {Roney} Refills: 0 Ordered:31-Jul-2017 Nellypopmichael DIRECTOR OF ADMISSIONS, Lesly Leslie DIRECTOR OF ADMISSIONS, Fátima Start : 31-Jul-2017 End : 10-Aug-2017 Inactive COLESTID, 5GM (Oral Granules) Granules BID with meals for 0 days Quantity: 60 {Granules} Refills: 4 Ordered:15-Jul-2008 Mary Lorenz Start : 15-Jul-2008 Inactive COLESTID, 5GM (Oral Packet) 1 Packet bid with meals not use with meds for 0 days Quantity: 60 {Packet} Refills: 6 Ordered:20-Feb-2012 MATT Maloney Start : 08-Aug-2011 End : 20-Feb-2012 Inactive Comments:ignore COUMADIN, 1MG (Oral Tablet) uad Tablet 4 qd as directed for 0 days Quantity: 120 {Tablet} Refills: 4 Ordered:17-Sep-2015 MATT Maloney Start : 04-Sep-2015 End : 17-Sep-2015 Inactive CRESTOR, 10MG (Oral Tablet) 1/2 Tablet Q HS for 0 days Quantity: 30 {Tablet} Refills: 6 Ordered:28-Mar-2006 MATT Maloney Start : 28-Mar-2006 End : 15-Jul-2008 Inactive DERMA SOOTHE (External Lotion) Lotion BID for 0 days Quantity: 1 {Lotion} Refills: 5 Ordered:15-Feb-2007 MATT Maloney Start : 15-Feb-2007 End : 15-Jul-2008 Inactive DIFLUCAN, 150MG (Oral Tablet) 1 (one) Tablet daily for 0 days Quantity: 3 {Tablet} Refills: 0 Ordered:27-Apr-2009 Randa Aldana DAVID Start : 27-Apr-2009 End : 25-May-2009 Inactive Comments:for 3 days DUODERM CGF DRESSING (External Miscellaneous) 1 (one) Misc Misc apply and change every 72 hours for 0 days Quantity: 10 {Each} Refills: 0 Ordered:02-Mar-2015 MATT Maloney Start : 19-Jun-2014 End : 02-Mar-2015 Inactive FOLIC ACID, 400MCG (Oral Tablet) 1 qd for 0 days Refills: 0 Ordered:29-Apr-2013 MATT Maloney End : 29-Apr-2013 Inactive Glucophage 500 MG Oral Tablet 1/2 Tablet qod for 0 days Quantity: 30 {Tablet} Refills: 6 Ordered:06-Nov-2017 Nellypopmichael DIRECTOR OF ADMISSIONS, Lesly Leslie DIRECTOR OF ADMISSIONS, Fátima Start : 31-Jul-2017 End : 06-Nov-2017 Inactive HYDROCORTISONE, 2.5% (External Cream) uad to affected areas prn for 0 days Refills: 0 Ordered:10-May-2010 MATT Maloney End : 10-May-2010 Inactive HYDROCORTISONE, 2.5% (External Ointment) uad to affected areas prn for 0 days Refills: 0 Ordered:10-May-2010 MATT Maloney End : 10-May-2010 Inactive HYDROXYZINE HCL, 50MG (Oral Tablet) 1 Tablet q 8 hr prn for 0 days Quantity: 30 {Tablet} Refills: 0 Ordered:29-Apr-2013 MATT Maloney Start : 08-Apr-2013 End : 29-Apr-2013 Inactive KEFLEX, 500MG (Oral Capsule) 1 (one) Capsule qid for 10 days Quantity: 40 {Capsule} Refills: 0 Ordered:01-Mar-2013 Wendy June DO Start : 01-Mar-2013 End : 11-Mar-2013 Inactive LEVAQUIN, 500MG (Oral Tablet) 1 Tablet daily for 7 days Quantity: 7 {Tablet} Refills: 0 Ordered:14-Jan-2013 Akosua Enrique MD Start : 14-Jan-2013 End : 21-Jan-2013 Inactive LOVENOX, 100MG/ML (Subcutaneous Solution) 1 Solution bid SQ for 0 days Quantity: 10 {Solution} Refills: 0 Ordered:02-May-2011 MATT Maloney Start : 31-Jan-2011 End : 02-May-2011 Inactive MACROBID, 100MG (Oral Capsule) 1 (one) Capsule bid for 7 days Quantity: 14 {Capsule} Refills: 0 Ordered:31-Aug-2015 Mihaela RODRIGUEZ, Lesly Leslie RODRIGUEZ, Fátima Start : 31-Aug-2015 End : 07-Sep-2015 Inactive MEDROL (KUMAR), 4MG (Oral Tablet) 1 (one) Tablet TAD for 0 days Quantity: 1 {Package} Refills: 0 Ordered:17-Sep-2015 MATT Maloney Start : 07-Sep-2015 End : 17-Sep-2015 Inactive Comments:with food MUPIROCIN, 2% (External Ointment) uad Ointment apply on wound at dressing change for 0 days Quantity: 1 {Tube} Refills: 2 Ordered:17-Sep-2015 MATT Maloney Start : 18-Jun-2015 End : 17-Sep-2015 Inactive NEXIUM, 40MG (Oral Capsule Delayed Release) [address] daily for 0 days Quantity: 30 {Capsule_DR} Refills: 3 Ordered:20-Feb-2012 MATT Maloney Start : 12-Nov-2010 End : 20-Feb-2012 Inactive Nystatin 570363 UNIT/GM External Powder uad Powder bid to affected area(s) prn for 30 days Quantity: 1 {Packet} Refills: 3 Ordered:31-Jul-2017 SlaMaria T desouza LPN Start : 20-Feb-2017 End : 31-Jul-2017 Inactive PANTOPRAZOLE SODIUM, 40MG (Oral Tablet Delayed Release) 1 (one) Tablet DR qd (40 MG) Start : 22-Sep-2015 End : 19-Oct-2015 Inactive Comments:adverse reaction PredniSONE 10 MG Oral Tablet 3 (three) Tablet daily for 7 days Quantity: 21 {Tablet} Refills: 0 Ordered:13-Mar-2017 Ryanmichael RODRIGUEZ, Lesly CENTENOjaja RODRIGUEZ, Fátima Start : 13-Mar-2017 End : 20-Mar-2017 Inactive PROMETHAZINE HCL, 25MG (Oral Tablet) 1 (one) Tablet q8hrs prn nausea for 0 days Quantity: 30 {Tablet} Refills: 0 Ordered:19-Oct-2015 MATT Maloney Start : 29-Sep-2015 End : 19-Oct-2015 Inactive SPIRONOLACTONE, 50MG (Oral Tablet) 1 prn for 0 days Refills: 0 Ordered:15-Jul-2008 MATT Maloney End : 15-Jul-2008 Inactive TOPICORT LP, 0.05% (External Cream) Cream BID for 0 days Quantity: 1 {Cream} Refills: 0 Ordered:10-Oct-2006 MATT Maloney Start : 10-Oct-2006 End : 15-Jul-2008 Inactive TOPICORT, 0.25% (External Cream) apply to affected area Cream bid sparingly for 0 days Quantity: 15 {gram(s)} Refills: 0 Ordered:23-Sep-2013 MATT Maloney Start : 28-Feb-2013 End : 23-Sep-2013 Inactive Vicoprofen Inactive Vitamin D3 2000 UNIT Oral Tablet Chewable 1 (one) Tablet Chewable Tablet Chewable daily for 0 days Quantity: 30 {Tablet} Refills: 0 Ordered:13-Mar-2017 Slarb Maria T HERNANDEZ Start : 15-Aug-2016 End : 13-Mar-2017 Inactive WARFARIN SODIUM, 1MG (Oral Tablet) 3 1/2 Tablet qd as directed for 0 days Quantity: 100 {Tablet} Refills: 3 Ordered:22-Sep-2015 MATT Maloney Start : 31-Aug-2015 End : 22-Sep-2015 Inactive ZITHROMAX Z-KUMAR, 250MG (Oral Tablet) 1 Tablet TAD for 0 days Quantity: 1 {Package(s)} Refills: 0 Ordered:21-May-2012 MATT Maloney Start : 19-Mar-2012 End : 21-May-2012 Inactive ZOSTAVAX, 53380SJP/0.65ML (Subcutaneous Solution Reconstituted) 1 For Solution once SC for 0 days Quantity: 1 {For_Solution} Refills: 0 Ordered:29-Apr-2013 MATT Maloney Start : 08-Apr-2013 End : 29-Apr-2013 Inactive Cefadroxil 500 MG Oral Capsule 1 (one) Capsule bid for 7 days Quantity: 14 {Capsule} Refills: 0 Ordered:12-Jan-2017 Wendy June DO Start : 12-Jan-2017 End : 12-Jan-2017 Discontinued ERGOCALCIFEROL, 24956DPHW (Oral Capsule) 1 Capsule every 2 months for 0 days Quantity: 12 {Capsule} Refills: 3 Ordered:28-Apr-2014 Akosua Enrique MD Start : 28-Apr-2014 End : 28-Apr-2014 Discontinued Iron 325 (65 Fe) MG Oral Tablet 1 (one) Tablet daily for 0 days Quantity: 60 {Tablet} Refills: 3 Ordered:09-May-2016 Maria T Francisco LPN Start : 11-Jan-2016 End : 09-May-2016 Discontinued Medrol 4 MG Oral Tablet Therapy Pack 1 (one) Tab Ther Pack TAD for 0 days Quantity: 1 {Package} Refills: 0 Ordered:09-May-2016 Maria T Francisco LPN Start : 08-Apr-2016 End : 09-May-2016 Discontinued Comments:with food PEPCID AC, 10MG (Oral Tablet) 2 (two) Tablet Daily for 0 days Refills: 0 Ordered:08-Jan-2007 MATT Maloney Start : 08-Jan-2007 End : 14-Aug-2007 Discontinued Comments:OTC PLAVIX, 75MG (Oral Tablet) 1 Tablet QD for 0 days Refills: 0 Ordered:24-Apr-2009 Akosua Enrique MD Start : 15-Jul-2008 End : 24-Apr-2009 Discontinued PredniSONE 20 MG Oral Tablet 1 (one) Tablet qd with food for 0 days Quantity: 3 {Tablet} Refills: 0 Ordered:08-Apr-2016 Maria T Francisco LPN Start : 24-Mar-2016 End : 08-Apr-2016 Discontinued Allergies and Adverse Reactions Name Dates Details Adhesive Tape (Allergy) Status: Active Lanacane - Lidocane (Allergy) Status: Active Levaquin *Fluoroquinolones (Allergy) Status: Active Comments: rash LIDOCAINE (5%)/DEXTROSE 7.5% (Injection Solution) (Allergy) Status: Active LIPITOR, 10MG (Oral Tablet) (Allergy) Status: Active Neosporin - Tetratriacellene (Allergy) Status: Active Sulfa Drugs (Allergy) Status: Active TETRACYCLINE HCL, 100MG (PO Cap) (Allergy) Status: Active Zestril - Lipitor - Zetia (Allergy) Status: Active Allergy to Zetia *ANTIHYPERLIPIDEMICS* (Renamed from Zetia Status: Active *ANTIHYPERLIPIDEMICS*) (Allergy) Comments: Hives Past Medical History Name Dates Details Abdominal pain, acute, generalized (R10.84, 789.07) Comments: in center over umbilicus. ? hernia which is reduced if pain worsen call. lenard check aorta since fmx Status: Inactive as of 21-May-2012 Abnormal blood chemistry (R79.9, 790.6) Status: Inactive as of 21-May-2012 Abnormal mammogram (R92.8, 793.80) Comments: recheck Status: Inactive as of 21-May-2012 Abnormal TSH (R79.89, 790.6) Status: Inactive as of 23-Sep-2013 ACCIDENTAL FALL FROM ONE LEVEL TO ANOTHER NEC (E884.9) Comments: fell back from one step up to bathroom. lightheaded withwater pill. hit head but no signs and symptoms talk about on coumadin. beenover week and no signs and symptoms no headache. not scan at this point Status: Inactive as of 21-May-2012 Allergy to Zetia *ANTIHYPERLIPIDEMICS* (Renamed from Zetia *ANTIHYPERLIPIDEMICS*) Comments: Hives Status: Inactive as of 21-May-2012 Arm pain, inferior, right (M79.601, 729.5) Status: Inactive as of 13-Mar-2017 Bee sting (T63.441A, 989.5) Comments: used clobetasol propionat 0.05% to affected area Status: Inactive as of 13-Mar-2017 Bleeding ulcer (K27.4, 533.40) Comments: off coumadin and asa now. not able take PPI and now willhave on pepcid and carafate bid now. saw Dr. oates. hgb coiming back up. after strong and HGB 12 he will rescopepassed out, became weak, had julio k tary stools, was on a ventilator, and rec. multpile units PRBC's @ [facility] 09-18 Status: Inactive as of 13-Mar-2017 BMI 29.0-29.9,adult (Z68.29, V85.25) Status: Inactive as of 06-Nov-2017 BMI 29.0-29.9,adult (Z68.29, V85.25) Status: Resolved as of 31-Jul-2017 BMI 30.0-30.9,adult (Z68.30, V85.30) Status: Inactive as of 13-Mar-2017 BMI 33.0-33.9,adult (Z68.33, V85.33) Comments: much better than was pt staying here at this weight Status: Inactive as of 09-Jan-2017 Bronchitis (J40, 490) Status: Inactive as of 14-Jun-2012 Cellulitis (L03.90, 682.9) Comments: improving Status: Resolved as of 31-Jul-2017 Cellulitis and abscess of leg (L03.119, 682.6) 05-Jul-2011 Status: Resolved as of 08-Mar-2013 Cellulitis of left lower leg (L03.116, 682.6) Status: Resolved as of 31-Jul-2017 Cellulitis of right upper extremity (L03.113, 682.3) Status: Inactive as of 13-Mar-2017 Cellulitis, umbilical (682.2) Comments: resolved Status: Inactive as of 25-Jan-2013 Cerumen impaction (H61.20, 380.4) Status: Inactive as of 02-Mar-2015 Contact dermatitis and other eczema due to plants (except food) (L25.5, 692.6) Status: Inactive as of 21-May-2012 Cough (R05, 786.2) Comments: home meds Status: Inactive as of 14-Jun-2012 Deep vein thrombosis, unspecified laterality (453.40) 31-Jan-2011 Comments: right calf. no inciding event. had superficial in past. no nsaids. keep on coumadin Status: Inactive as of 14-Jun-2012 Dermatitis (L30.9, 692.9) 28-Jun-2010 Comments: stasis on ankles. hands chronic- no jewelry, no perfumes. using special hand cream. has helped. seeing gonzalo. Status: Inactive as of 21-May-2012 Diarrhea (R19.7, 787.91) Comments: scope 2009 good neg colitis bx. cultures negative. off glucophage not big change Status: Inactive as of 21-May-2012 Elevated blood pressure reading (R03.0, 796.2) Status: Inactive as of 06-Nov-2017 GI bleed (K92.2, 578.9) Comments: September 2015. Found esophagel ulcer, 09-12-15 hmg 7.9 off of all coumadin and ASA had recent gastric emptying, normal now, hemoglobin 13.0 on 12-21-2015 Status: Inactive as of 13-Mar-2017 Hematuria (R31.9, 599.70) Status: Inactive as of 13-Mar-2017 Hemorrhoids (K64.9, 455.6) Status: Inactive as of 21-May-2012 Hernia, umbilical (553.1) Status: Inactive as of 18-Jun-2015 Hypercalcemia (E83.52, 275.42) Status: Inactive as of 23-Sep-2013 Ingrown toenail (L60.0, 703.0) Comments: soaks and atb nto better back to suppan Status: Inactive as of 13-Mar-2017 Itch of skin (L29.9, 698.9) Comments: left arm Status: Resolved as of 31-Jul-2017 Itching (L29.9, 698.9) Status: Inactive as of 29-Apr-2013 Joint pain (719.4) Comments: left knee. had injection in past without problem and had marcaine inpast. will injection .told risk of bleedignwith on coumadin so will watch Status: Inactive as of 21-May-2012 Leg abrasion, left, initial encounter (S80.812A, 916.0) Status: Inactive as of 13-Mar-2017 Limb pain (M79.609, 729.5) Comments: injection help front of knee but still pain in back of knee and calf. she is concerned with clot. reveiwed with patient xray. Status: Inactive as of 14-Jun-2012 Lipoma (Renamed from Fatty tumor) (D17.9, 214.9) Comments: really think what on ankle. had in other areas of boddy had since early not change or grown not alot of pain Status: Inactive as of 23-Sep-2013 Low back pain (M54.5, 724.2) Comments: continued. will xray it and see in follow up Status: Inactive as of 21-May-2012 Nausea (R11.0, 787.02) Status: Resolved as of 31-Jul-2017 Need for prophylactic vaccination and inoculation against influenza (Z23, V04.81) Status: Inactive as of 23-Apr-2009 Need for vaccination against Streptococcus pneumoniae (Z23, V03.82) Status: Inactive as of 18-Jun-2015 Pain of lower leg, unspecified laterality (M79.669, 729.5) 06-Jan-2011 Comments: right knee pain and inject Status: Inactive as of 21-May-2012 Palpitations (R00.2, 785.1) Comments: seeing in a week occured x 2 to discuss with cardio Status: Resolved as of 31-Jul-2017 Pertussis exposure (Z20.818, V01.89) Status: Inactive as of 13-Mar-2017 Rash (R21, 782.1) 20-Feb-2012 Status: Inactive as of 29-Apr-2013 Right shoulder tendinitis (M75.81, 726.10) Comments: amanda pablo chiropactor therapy. pendulum exercises given and told how stretch. if ot better than will do [facility] PT xray Status: Inactive as of 13-Mar-2017 Shoulder pain, right (M25.511, 719.41) Comments: has seen chiro and ice, without releif, on acetamenophen, 6 months of conservative treatment with worsening pain unable to elevate Status: Inactive as of 13-Mar-2017 Skin abrasion (T14.8XXA, 919.0) Status: Resolved as of 31-Jul-2017 Stasis Dermatitis Status: Inactive as of 21-May-2012 Swelling of limb (M79.89, 729.81) 20-Feb-2012 Comments: talk about watch salt. not have echo but no cardiac ss. doppler in past with DVT and on coumdain. water pilland lymphedema wraps help. negative for sleep apnea in past. Status: Inactive as of 07-Jan-2013 SYMPTOMS INVOLVING RESPIRATORY SYSTEM AND OTHER CHEST SYMPTOMS; HICCOUGH (786.8) 20-Feb-2012 Comments: with nexium Status: Inactive as of 21-May-2012 Tendonitis of wrist, right (M77.8, 727.05) Status: Inactive as of 13-Mar-2017 Thrush (B37.0, 112.0) Status: Resolved as of 06-Nov-2017 Umbilical discharge (R19.8, 789.9) Status: Inactive as of 18-Jun-2015 Unspecified Diagnosis Status: Inactive as of 14-Jan-2013 Unspecified Diagnosis Status: Inactive as of 29-Apr-2013 Vertigo (R42, 780.4) Comments: inner [place] years--antivert works Status: Inactive as of 15-Feb-2007 Well woman exam with routine gynecological exam (Z01.419, V72.31) Comments: follow up pap once more, 02-11 colonscopy Status: Inactive as of 21-May-2012 Wrist pain, acute, right (M25.531, 719.43) Comments: use cock up splint at hs Status: Resolved as of 31-Jul-2017 WWV Comments: 12-09 pap due 12-11 Status: Inactive as of 21-May-2012 Procedures Procedure Dates Details Cardiac Cath Completed Comments: Dr. Martinez (had EKG, echo and nuclear stress test) Jun 14, 2013 Cataract Extraction-Bilateral Completed Colonoscopy Completed Comments: February 10 2009 (Dr. 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 Dilation And Curettage Of Uterus Completed Comments: Late 80s, early 90s Fatty Tumor removed Completed Comments: from right hip 1979 benign SPUR Completed Comments: Heel surgery 1997 Tubal Ligation Completed Comments: 1979 Date Value Details 22-Mar-2018 Dexa Bone Density Study Result: Comments: See Note; NOTES: [facility] Imaging Services [address] [place] [address] Dexa Bone Density Study MR#: [id number] Acct: [id number] Name: BRISSA SOARES Rep #: [id number] : 1940 F 77 From: Sergio Perea MD PCP: Lesly Chairez NP Status: REG CLI Study: Dexa Bone Density Study Date of Exam: 03/22/18 Exam# [id number] Ordering Dr: Lesly Chairez STUDY: D UAL ENERGY X-RAY ABSORPTIOMETRY / DXA REASON FOR EXAM: Female, 77 years old. The patient is postmenopausal. Loss of height. TECHNIQUE: Bone Mineral Density (BMD) measurements of lumbar spine and bilat eral hips were obtained. COMPARISON: Comparison is made with prior examination dated April 25, 2013. FINDINGS: Lumbar Spine (L1-L4): g/cm2 (1.094) / T-score (-0 .6) / Z-score (1.2) Findings are suggestive of normal bone density with a low fracture risk. Left Femur Total: g/cm2 (1.027) / T-score (0.2) / Z-score (2.1) Left Femoral Neck: g/cm2 (1.048) / T-score ( 0.1) / Z-score (2.2) Right Femur Total: g/cm2 (0.947) / T-score (-0.5) / Z-score (1.4) Right Femoral Neck: g/cm2 (0.979) / T-score (0.4) / Z-score (1.7) The T- Scores on the most recent prior examinatio n were: Lumbar Spine (L1-L4): There has been worsening of bone density since the previous examination. Left Femur Total: which represents an improvement of 2.3%. Right Femur Total: which represents a worsening of 7.8%. BD/Dexa Bone Density Study IMPRESSION: The patient is considered normal as outlined below according to World [employer]ico Organ[employer] n (WHO) criteria with a low fracture risk. There has been worsening of bone density since the previous examination. Reference Information: The T-score is the number of standard deviations above or below the standard which is normal for young adults at their peak bone mineral density. The World Health Organization (WHO) interprets the T-scores as follows: Above -1 Normal bone density Between -1 and -2.5 Osteopenia Equal to / or below -2.5 Osteoporosis As a practical clinical guideline, osteopenia may be graded as follows: Mild - 1 through -1.5 Moderate -1.6 thro ugh -2.0 Severe -2.1 through -2.4 The Z-score is the number of standard deviations above or below age-matched controls. A Z-score of less than -1.5 would be considered abnormal. References: 1. NIH Ost eoporosis and Related Bone Diseases http://www.osteo.org 2. International Society for Clinical Densitometry http://www.iscd.org 3. National Osteoporosis Foundation http://www.nof.org Electronically Sig macarena: Sergio Perea MD at 15:16 EDT Tel [phone], Service support , CC: Lesly Chairez NP Hand Tube Winder: Signed 22-Mar-2018 SCREENING MAMM (CAD), BILAT Result: Comments: See Note; NOTES: [facility] Imaging Services [address] [place] [address] SCREENING MAMM (CAD), BILAT MR#: [id number] Acct: [id number] Name: BRISSA SOARES Rep #: [id number] : 1940 F 77 From: Sergio Perea MD PCP: Lesly Chairez NP Status: REG CLI Study: SCREENING MAMM (CAD), BILAT Date of Exam: 03/22/18 Exam# [id number] Ordering Dr: Lesly Chairez [facility]-C MAMMOGRAPHY - BILATERAL SCREENING REASON FOR EXAM: Female, 77 years old. Routine annual screening examination. PERTINENT HISTORY: Non-contributory. TECHNIQUE: Digital bilateral breast iván (3D mammog raphic acquisition) in the CC and MLO projections. 2-D mediolateral oblique (MLO) and craniocaudad (CC) views of both breasts were obtained. CAD: Full Field Digital Mammography with Computer Added Detec tion was performed. COMPARISON: Comparison is made with prior study date March 09, 2017 and February 29, 2016. FINDINGS: Breast Composition: There are scattered a reas of fibroglandular density. There are no dominant masses or suspicious calcifications. No other significant abnormalities are identified. There has been no significant change since the prior study . BI/SCREENING MAMM (CAD), BILAT IMPRESSION: Stable bilateral screening mammogram. Yearly follow-up mammogram recommended. (A) ASSESSMENT CATEGORY: BIRADS Category 1: Negative. A letter regarding these results will be sent to the patient by the facility within 30 days. Approximately 10% of breast cancers ar e not detected by mammography. A normal mammogram should not delay biopsy of a clinically suspicious abnormality. [id number] Electronically Signed: Sergio Perea MD at 10:28 EDT Tel [phone], Service support , CC: Lesly Chairez NP Hand Tube Winder: Signed 12-Feb-2018 HIP, UNI W/ Pelvis 2-3 Views Result: Comments: See Note; NOTES: [facility] Imaging Services [address] [place] [id number] HIP, UNI W/ Pelvis 2-3 Views MR#: [id number] Acct: [id number] Name: BRISSA SOARES Rep # : [id number] : 1940 F 77 From: Justo Kennedy MD PCP: Lesly Chairez NP Status: REG CLI Study: HIP, UNI W/ Pelvis 2-3 Views Date of Exam: 02/12/18 Exam# [id number] Ordering Dr: Lesly Chairez Y: X-RAY - PELVIS AND RIGHT HIP REASON FOR EXAM: Female, 77 years old. Hip pain TECHNIQUE: Radiological exam, hip, unilateral, with pelvis when performed; minimum of 4 views COMPARISON: None. FINDINGS: There is a non-specific bowel gas pattern. Normal visualized soft tissue structures. Normal bilateral iliac wings, sacroiliac joints and visualized sacrum. Catrina l bilateral superior and inferior pubic rami. Normal pubic symphysis. Normal bilateral ischial tuberosities. There are degenerative changes of the visualized lumbar spine. Normal visualized femoral hea d. Normal acetabulum. Normal hip joint. RAD/HIP, UNI W/ Pelvis 2-3 Views IMPRESSION: Degenerative changes of the visualized lumbar spine. The [place] pelvis and left and right hips are unremarkable. Electronically Signed: Justo Kennedy MD at 23:54 EDT , Service support , CC: Lesly Chairez NP Hand Tube Winder: Signed 16-Nov-2017 Abdomen Complete Result: Comments: See Note; NOTES: [facility] Imaging Services [address] [place] [address] Abdomen Complete MR#: [id number] Acct: [id number] Name: BRISSA SOARES Rep #: [id number] : 1940 F 77 From: Yulissa Reilly MD PCP: Lesly Chairez NP Status: REG CLI Study: Abdomen Complete Date of Exam: 11/16/17 Exam# [id number] Ordering Dr: Lesly Chairez STUDY: ABDOMINAL ULTRASOUND R MAYELIN FOR EXAM: Female, 77 years old. Abdominal pain. TECHNIQUE: Transabdominal ultrasound was performed with real-time and static gomez scale imaging. TECHNICAL QUALITY: Adequate. COMPARISON: None. _ FINDINGS: Liver: The liver measures 13.5 cm. There is normal echogenicity of the liver. The bile ducts are within normal limits. There is hepatic color flow. The dir ection of portal flow is hepatopetal. There is no demonstrated mass lesion. Gallbladder: Normal distended gallbladder. The gallbladder wall measures 1.9 mm. There is a negative sonographic Molina's sig n. There is no pericholecystic fluid. There are no gallstones. Common Bile Duct (C.B.D.): The common bile duct measures 4.4 mm. Pancreas: Normal size of the head, body and tail of the pancreas. There is normal echogenicity of the pancreas. There is no demonstrated pancreatic mass or cyst. Spleen: Normal size of the spleen. The spleen measures 8.4 cm. Right Kidney: Normal size of the right kidney. The right kidney measures 9.3 cm in length. Normal renal cortex. The right cortex measures 1.0 cm. There is no demonstrated renal mass or cyst. There is no right hydronephrosis. Left Kidney: Normal siz e of the left kidney. The left kidney measures 7.5 cm in length. Normal renal cortex. The left cortex measures 1.2 cm. There is no demonstrated renal mass or cyst. There is no left hydronephrosis. Aort a: The visualized abdominal aorta is within normal limits. I.V.C.: The IVC is patent. There is no ascites. US/Abdomen Complete IMPRESSION: Norm al abdominal ultrasound examination. Electronically Signed: Yulissa Reilly MD at 11:23 EDT Tel , Service support , CC: Lesly Chairez NP Hand Tube Winder: Signed 22-Sep-2017 Cardiology Visit Report Result: Comments: See Note; NOTES: [facility] [address] [place], [place] [address]a. [address] [place] [address] OFFICE VISIT Date of Service: 09/21/17 MR#: [id number] Acct: [id number] Name: BRISSA SOARES Rep #: [id number] : 1940 Provider: Serenity Villarreal Age/Sex: 77/F Location: [facility] [place] Status: Signed HPI HPI Details: BRISSA SOARES, is a 77 F who presents to the office today for presents h ere today for a cardiovascular follow-up. She has a history of hypertension, DVT, hyperlipidemia and diabetes. pt had cataract surgery this past winter. From a cardiac standpoint, patient is doing wel l. She does not have any chest discomfort/heaviness/tightness. Her exercise tolerance is stable for her age. She does not have any worsening symptoms of shortness of breath. She does not have any orthop bonnie. She denies PND. She does not have any symptoms of congestive heart failure. She does not have any palpitations that she is aware of. She does not have any lightheadedness or dizziness. She does not have any near-syncope or syncope. She does not have any lower extremity edema. She does not have any symptoms of claudication. Intake Vital Signs09/21/17 Blood Pressure 130/70 09/21/17 Height 4 ft 10 in 09/21/17 Weight: 162 lb 09/21/17 Body Mass Index (BMI) 33.8 09/21/17 Blood Pressure 152/68 Intake Visit Reasons: 6 M FU Medical Office Professional Instructor Required: No Accompanied by: none Is patient in pain?: No Allerg ies atorvastatin calcium [From Lipitor] Allergy (Verified 09/21/17 11:28) Unknown ezetimibe [From Zetia] Allergy (Verified 09/21/17 11:28) Unknown lisinopril Allergy (Verified 09/21/17 11:28) Unknown n eomycin [Neomycin] Allergy (Verified 09/21/17 11:28) Unknown neomycin sulfate [From Neosporin ([id number])] Allergy (Verified 09/21/17 11:28) Itching polymyxin B [Polymyxin B] Allergy (Verified 09/21 11:28) Unknown Sulfa (Sulfonamide Antibiotics) Allergy (Verified 09/21/17 11:28) Unknown tetracycline [Tetracycline] Allergy (Verified 09/21/17 11:28) Itching adhesive tape Adverse Reaction (Severe, Verified 09/21/17 11:28) Unknown Medications Cholecalciferol (Vitamin D3) [Vitamin D3] 2,000 unit PO DAILY 01/15/17 [History Confirmed 09/21/17] Famotidine [Pepcid] 20 mg PO BID 01/15/17 [History Co nfirmed 09/21/17] Irbesartan [Avapro] 75 mg PO DAILY 01/15/17 [History Confirmed 09/21/17] Meclizine HCl [Antivert] 25 mg PO TID PRN PRN 01/15/17 [History Confirmed 09/21/17] Metformin HCl [Glucophage] 500 mg PO DAILY 01/15/17 [History Confirmed 09/21/17] Pentoxifylline [Trental] 400 mg PO TID 01/15/17 [History Confirmed 09/21/17] Potassium Chloride [K-Dur] 10 meq PO DAILY PRN 01/15/17 [History Confir med 09/21/17] Pravastatin [Pravachol] 80 mg PO QHS 01/15/17 [History Confirmed 09/21/17] Torsemide [Demadex] 20 mg PO DAILY 01/15/17 [History Confirmed 09/21/17] cyanocobalamin (vit B-12) 1,000 mcg/mL o ral drops 1,000 mcg PO QDAY 09/21/17 [History Confirmed 09/21/17] Ejection fraction %: 65 to 70 PFSH Medical History Palpitations (Chronic) 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 (Chronic) Hyperlipidemia (Chronic) Diabetes (Chronic) Hypertension (Chronic) Surgical History cataract surgery (Resolved) Heel spur (Re solved) H/O dilation and curettage (Resolved) H/O tubal ligation (Resolved) Lipoma (Resolved) Rectal fistula (Chronic) Family History Mother CAD (coronary art charity disease) Myocardial infarction Son Hypertension Brother Aortic aneurysm Social History Smoking Status: Never smoker alcohol intake: never substance use type: does not use caffeine: Yes Type: co ffee Number of servings: 1 what type of physical activity do you participate in: none seatbelt use: always do you feel safe at home: Yes ROS Const Const: Negative for weakness, fatigue, fever(s) or headache(s) Eyes Eyes: Negative for blind spots, loss of peripheral vision or transient loss of vision ENT ENT: Negative for headache(s), dizziness, tinnitus or Nosebleed/epistaxis Cardio Chest Pain : No Palpitations: No Edema: None Muscle aches with walking: None Resp Respiratory: Negative for SOB with activity, SOB at rest, SOB orthopnea\SOB lying down or Cough GI GI: Negative nausea, vomiting, h eartburn or vomiting blood/hematemesis : Negative for hematuria Musc Musc: Negative for muscle aches/ myalgia Neuro Neuro: Negative for weakness, headache(s), dizziness, near syncope, syncope, ligh theadedness or orthostatic symptoms Raoul Hematologic/Lymphatic: Negative for easy bleeding Endo Endo: Negative for fatigue Cardiology Exam Const Appearance: cooperative, no acute distress and well dev eloped Orientation: alert, awake and oriented x3 Head Head: normocephalic and atraumatic Mouth: moist mucous membranes Eyes General: appearance normal, both eyes and all related structures Conjunctivae: conjunctivae normal Pupils: PERRL EOM: EOM intact bilaterally Neck Neck: normal visual inspection, no lymphadenopathy and no JVD Carotids: Negative bruit Neck Mass: Negative Neck mass Chest Chest inspe ction: normal inspection of the chest and symmetric chest movement Auscultation: Bilateral: Clear to Auscultation Cardio Palpation: normal PMI Rate: regular rate Rhythm: regular rhythm Heart sounds: S1 normal and S2 normal; negative rub, gallop or murmur GI GI: normal to inspection, soft, no hepatosplenomegaly and bowel sounds present; negative tender Neuro General: alert, awake, oriented x3, CN's II- XI intact bilaterally and moves all extremities Extremities Pulses: Normal: Right Posterior Tibial Pulse, Left Posterior Tibial Pulse, Right Radial Pulse, Left Radial Pulse Lower Extremity Edema: +2: Bi lateral, Color Changes: Bilateral Psych Psychological: normal affect Supplemental Info Echocardiogram in 2012 demonstrated an ejection fraction of 65%. Stress test at that time indicated myocardial is chemia in the mid and distal inferior apical segments. Heart catheterization demonstrated mild coronary artery disease. Medical management was recommended. Assessment AND Plan 1. 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 We recommend that they continue with current aggr essive medical management and risk factor modification. 2. Essential hypertension I10 Plan Blood pressure is well controlled on current medications, we do not recommend any changes at this time. 3. Pu re hypercholesterolemia E78.00; E78.0 Plan Managed by primary care doctor. Have requested a copy of labs for continuity of care. Plan Detail Additional Comments Thank you for allowing us to participat e in patient's plan of care, if you have any questions please do not hesitate to call. This note was generated using a voice recognition system and there may be incorrect words, spelling or punctuation errors that were not noted when reviewing the office note prior to saving. Follow Up 9 Months (PFM) Coding Level of Care Code Off vis,est,level 3 Diagnoses Atherosclerosis of [place] coronary artery of [place] heart without angina pectoris I25.10 [place] vs. transplanted heart: [place] heart Essential hypertension I10 Hypertension type: essential hypertension Pure hypercholesterolemia E78.00; E78.0 Hy perlipidemia type: pure hypercholesterolemia Coding Level of Care Code Off vis,est,level 3 Diagnoses Atherosclerosis of [place] coronary artery of [place] heart without angina pectoris I25.10 [place] vs . transplanted heart: [place] heart Essential hypertension I10 Hypertension type: essential hypertension Pure hypercholesterolemia E78.00; E78.0 Hyperlipidemia type: pure hypercholesterolemia 09/22/17 0925 <Electronically signed by Serenity MAGAÑA> Date Serenity MAGAÑA Cosigner Signature: Date (if applicable) CC: Lesly Chairez NP 20-Mar-2017 Wound Ctr History AND Physical Result: Comments: See Note; NOTES: [facility] [address] [place] [address] Wound Ctr History AND Physical 03/20/17 1426 MR#: [id number] Acct: [id number] Name: BRISSA WHITE Rep #: [id number] : 1940 76 From: Bao Brothers MD PCP: Lesly Chairez Status: REG RCR Y Location: WC (1) 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 Status: Chronic Curr ent Visit: No Code(s): I70.249 - ATHSCL [place] ARTERIES OF LEFT LEG W ULCERATION OF UNSP SITE (2) Failure to thrive Status: Chronic Current Visit: No Code(s): [id number] - (3) Generalized weakness Status : Chronic Current Visit: No Code(s): R53.1 - WEAKNESS (4) Positional vertigo Status: Acute Current Visit: No Code(s): H81.10 - BENIGN PAROXYSMAL VERTIGO, UNSPECIFIED EAR (5) Chronic venous hypertensio n (idiopathic) with inflammation of bilateral lower extremity Status: Chronic Current Visit: Yes Code(s): I87.323 - CHRONIC VENOUS HTN W INFLAMMATION OF BILATERAL LOW EXTRM (6) Chronic venous stasis de rmatitis Status: Chronic Current Visit: Yes Code(s): I87.2 - VENOUS INSUFFICIENCY (CHRONIC) (PERIPHERAL) (7) Diabetes Status: Chronic Current Visit: Yes Qualifiers: Diabetes mellitus type: type 2 Code( s): E11.9 - TYPE 2 DIABETES MELLITUS WITHOUT COMPLICATIONS (8) Hx of venous thrombosis and embolism Status: Chronic Current Visit: Yes Code(s): Z86.718 - PERSONAL HISTORY OF OTHER VENOUS THROMBOSIS AND EMBOLISM (9) Hyperlipidemia Status: Chronic Current Visit: No Code(s): E78.5 - HYPERLIPIDEMIA, UNSPECIFIED (10) Hyperpigmentation of skin Status: Chronic Current Visit: Yes Code(s): L81.9 - DISORDER OF PIGMENTATION, UNSPECIFIED (11) Hypertension Status: Chronic Current Visit: No Code(s): I10 - ESSENTIAL (PRIMARY) HYPERTENSION (12) Hypertension Status: Chronic Current Visit: No Code(s): I10 - ESS ENTIAL (PRIMARY) HYPERTENSION (13) Leg swelling Status: Chronic Current Visit: Yes Code(s): M79.89 - OTHER SPECIFIED SOFT TISSUE DISORDERS (14) Lipodermatosclerosis Status: Chronic Current Visit: Yes Code(s): I83.10 - VARICOSE VEINS OF UNSP LOWER EXTREMITY WITH INFLAMMATION (15) Localized edema Status: Chronic Current Visit: Yes Code(s): R60.0 - LOCALIZED EDEMA (16) Obesity Status: Chronic Curren t Visit: Yes Qualifiers: Obesity type: due to excess calories Body mass index: BMI 33.0-33.9 Code(s): E66.9 - OBESITY, UNSPECIFIED (17) Post-phlebitic dermatosis of both lower extremities Status: Chron ic Current Visit: Yes Code(s): I87.093 - POSTTHROM SYNDROME W OTH COMP OF BILATERAL LOW EXTRM (18) Type 2 diabetes mellitus Status: Chronic Current Visit: Yes Code(s): E11.9 - TYPE 2 DIABETES MELLITUS WITHOUT COMPLICATIONS (19) 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 Current Visit: Yes Code(s): E11.59 - TYPE 2 DIABETES MELLITUS WITH OTH CIRCULATORY COMPLICATIONS (20) Ulcer Status: Resolved Current Visit: No Code(s): L98.499 - NON-PRESSURE CHRONIC ULCER OF SKIN OF SITES W UNSP SEVERITY (21) history of cellulitis of leg Status: Chronic Current Visit: Yes Hist ory of Present Illness Date of Service: 03/20/17 Chief Complaint: Severe swelling, edema, and lymphedema of the lower extremities associated with severe hyperpigmentation and lipodermatosclerosis Histor y of Wound: This is a 76-year-old female with a long-standing history of swelling, edema, lymphedema in her lower extremities. She has been treated at the [facility] wound healing center in recent weeks for an ulceration in the left medial supramalleolar area. With a combination of conservative treatment measures, including use of Milena and Tubigrip's, the ulcer healed. The ulceration is now completely healed and epithelialized. The patient claims to sleep in a recliner each night due to low back pain. She spends long hours each day in an idle sitting position. Patient has a history of bilateral lower extremity superficial thrombophlebitis. In 2010, the patient was treated for a deep vein thrombosis in the right lower extremity. She remained on Coumadin for many years. However, af ter gastrointestinal bleeding in September 2015, her Coumadin was discontinued. We have been using SurePress compression wraps to the lower extremities, in addition to implementing leg elevation, avoidance of idle standing and sitting, and active lifestyle as a result, the swelling in the lower extremities is markedly diminished. 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 The patient underwent excision of a right hip lipoma in the past. Patient is a Ab0. Allergies/Adverse Reactions: Allergies cathy rvastatin calcium [From Lipitor] Allergy (Verified 11/15/15 15:31) Unknown ezetimibe [From Zetia] Allergy (Verified 11/15/15 15:31) Unknown lisinopril Allergy (Verified 11/15/15 15:31) Unknown neomycin [Neomycin] Allergy (Verified 11/15/15 15:31) Unknown neomycin sulfate [From Neosporin ([id number])] Allergy (Verified 11/15/15 15:31) Itching polymyxin B [Polymyxin B] Allergy (Verified 11/15/15 15:3 1) Unknown Sulfa (Sulfonamide Antibiotics) Allergy (Verified 01/15/17 10:38) Unknown tetracycline [Tetracycline] Allergy (Verified 11/15/15 15:31) Itching Home Medications: Ambulatory Orders Medicati on Instructions Recorded Amoxicillin/Potassium Clav [Amox 1 each PO BID 01/15/17 - Family History Maternal No pertinent history, - - Patient's father at age of 74 with a history of diabetes m ellitus. The patient's mother at age of 59 with a myocardial infarction. Paternal No pertinent history Smoking Status: Never smoker Tobacco Use: Non- smoker Review of Systems Constitutional: De nies: Chills, Fever, Weight Change Eyes: Denies: Pain, Vision Change HEENT: Denies: Difficulty Hearing, Difficulty Swallowing, Sinus Congestion Cardiovascular: Denies: Chest Pain, Palpitations Respirato ry: Denies: Cough, Shortness of Breath Gastrointestinal: Denies: Diarrhea, Nausea, Vomiting Genitourinary: Denies: Dysuria, Hematuria Endocrine: Denies: Heat/ Cold Intolerance, Polydipsia, Polyuria Raoul tologic/ Lymphatic: Denies: Easy Bruising, Easy Bleeding - Physical Exam Vital Signs Temp Pulse Resp BP Pulse Ox 98.9 F 65 18 137/63 03/20/17 12:55 03/20/17 12:55 03/20/17 12:55 03/20/17 12:55 Gener al: Alert, Oriented x3, Cooperative, No apparent distress, Well developed, Well nourished HEENT: Atraumatic, PERRLA, EOMI, Normocephalic Oral: Moist Mucosa Neck: No JVD Lungs: Normal air movement Abdome n: Non-Distended Extremities: No clubbing, No cyanosis, No Calf Tenderness, - - Falling and edema in the lower extremities is markedly improved. However, soft tissue prominence persists overlying the la teral malleolus bilaterally. This may be due to lipoma or fatty tissue accumulation. There are no open wounds or ulcerations. There is no sign of infection or cellulitis. Chronic hyperpigmentation persi sts in the left distal lower extremity, consistent with the patient's chronic venous disease. Circumference measurements are documented elsewhere. Wound Measurements and Assessment WC - Nurse 1 - Gener al Ulcer Measurement Start: 03/06/17 13:13 Freq: Status: Active Activity Type Activity Date Activity User E-Sign Co-Sign Detail Recorded Client Recorded Date Recorded By Document 03/20/17 12:55 [id number] 03/20/17 13:02 Wound Center Nurse 1 [Edema Assessment] -Lower Limb Edema Present No -Right Calf (cm) 37.0 -Right Ankle (cm) 25.5 -Left Calf (cm) 37.0 - Left Ankle (cm) 24.0 WC - Nurse 2 - General Ulcer CM Notes Start: 03/06/17 13:13 Freq: Status: Active Activity Type Activity Date Activity User E-Sign Co-Sign Detail Recorded Client Recorded Date Recorded By Document 03/20/17 14:23 DV [id number] 03/05 11/19 14:25 DV Pain Scale: 0-10 Numeric [Pain] -Is Patient Pain Free? Yes Neurological: Cranial nerves II-XII grossly intact, Neuro grossly intact Psych/Mental Status: Normal Affect, Appropriate, Bonnie rt and oriented to time, place, person, mood and affect Debridement Note Post- Debridement Measurements/Treatment WC - Nurse 2 - General Ulcer CM Notes Start: 03/06/17 13:13 Freq: Status: Active Activi ty Type Activity Date Activity User E-Sign Co-Sign Detail Recorded Client Recorded Date Recorded By Document 03/20/17 14:23 DV [id number] 03/20/17 14:25 DV Pain Scale: 0-10 Numeric Is Patient Pain Free? 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 A noninvasive lower extremity arterial study has been performed, whic h was normal. Venous duplex examination reveals incompetence of the great saphenous veins bilaterally, as well as incompetence of the left small saphenous vein. Superficial thrombophlebitis is noted in the left posterior calf. These findings have been discussed with the patient in detail. It appears as though the patient's lifestyle will require modification, lest the patient continue to have problems in her lower extremities which will include swelling, edema, lymphedema, ulceration, profound skin changes, etc. In addition, with a history of lower extremity thrombophlebitis, she is also at enhanced risk, which can be moderated by means of behavioral modification. Plan: We have discussed the implementation of conservative treatment measures. The patient appears somewhat resistant to this idea. She states I cannot stand anything tight. Leg elevation has been highly recommended. The patient has been encouraged to refrain from sleeping in a recliner. She has been encouraged to sle ep on a flat surface at night. Leg elevation to heart level has been encouraged even during daytime hours. She has been discouraged from prolonged idle sitting. Activity has been encouraged. Weight loss has been encouraged. Compression of an adequate degree has also been recommended. We are to continue SurePress on a daily basis. The patient will be transitioned to the use of Juxta Lites, and a prescr iption for such has been provided. The patient will continue with SurePress wraps until which time the juxta-lites have been obtained. Patient will return in 1 week for reassessment. It is anticipated t hat compliance with recommended measures may be of significant benefit. We have briefly discussed the option of more aggressive intervention, though conservative measures appear more appropriate as an i nitial approach. Patient will return in 1 week for reassessment. Consideration may be given to an imaging study to further evaluate the possibility of suspected benign masses involving each ankle. The p atient does not smoke. Influenza vaccine was not administered today. The patient stands 4 feet 10 inches tall. She weighs 160 pounds. Her BMI is 33.4, which places her in the class I category. Weight lo ss has been recommended. The patient has been advised to collaborate with her primary care physician in terms of weight loss options. 03/20/17 1432 <Electronically signed by Bao Brothers MD&a mp;#[id number]; Date Bao Brothers MD CC: Signed 09-Mar-2017 SCREENING MAMM (CAD), BILAT Result: Comments: See Note; NOTES: [facility] Imaging Services [address] [place] [address] SCREENING MAMM (CAD), BILAT MR#: [id number] Acct: [id number] Name: BRISSA SOARES Rep #: [id number] : 1940 F 76 From: Jessica Gonzalez MD PCP: Lesly Chairez Status: REG CLI Study: SCREENING MAMM (CAD), BILAT Date of Exam: 03/09/17 Exam# [id number] Ordering Dr: Lesly Chairez MAMMOGRAPHY - BILATERAL SCREENING REASON FOR EXAM: Female, 76 years old. Routine annual screening examination. PERTINENT HISTORY: NO FAM HX LOST 40# SEVERAL BILAT MOLES AND KERATOSIS MARKED NO SX TECHNIQUE: Digi wicho bilateral breast iván (3D mammographic acquisition) in the CC and MLO projections. 2-D mediolateral oblique (MLO) and craniocaudad (CC) views of both breasts were obtained. CAD: Full Field Digital M ammography with Computer Added Detection was performed. COMPARISON: Feb 29 2016 10:31am .Feb 16 2015 10:12am FINDINGS: Breast Composition: The breasts are heterogen eously dense, which may obscure small masses. There are no dominant masses or suspicious calcifications. No other significant abnormalities are identified. HPBI/SCREENING MAMM (CAD), BILAT IMPRESSION: Stable bilateral screening mammogram. Yearly follow-up mammogram recommended. (A) ASSESSMENT CATEGORY: BIR ADS Category 2: Benign. A letter regarding these results will be sent to the patient by the facility within 30 days. Approximately 10% of breast cancers are not detected by mammography. A normal mammog coby should not delay biopsy of a clinically suspicious abnormality. 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 Curr ent Visit: No Code(s): I70.249 - ATHSCL [place] ARTERIES OF LEFT LEG W ULCERATION OF UNSP SITE (2) Cellulitis of left leg Status: Resolved Current Visit: No Code(s): L03.116 - CELLULITIS OF LEFT LOWER L IMB (3) Failure to thrive Status: Acute Current Visit: No Code(s): ING6196 - (4) Generalized weakness Status: Acute Current Visit: No Code(s): R53.1 - WEAKNESS (5) Non-pressure chronic ulcer of left ankle with fat layer exposed Status: Resolved Current Visit: No Code(s): L97.322 - NON-PRESSURE CHRONIC ULCER OF LEFT ANKLE W FAT LAYER EXPOSED (6) Non- pressure chronic ulcer of left calf with fat laye r exposed Status: Resolved Current Visit: No Code(s): L97.222 - NON-PRESSURE CHRONIC ULCER OF LEFT CALF W FAT LAYER EXPOSED (7) Positional vertigo Status: Acute Current Visit: No Code(s): H81.10 - OMAR GN PAROXYSMAL VERTIGO, UNSPECIFIED EAR (8) Chronic venous hypertension (idiopathic) with inflammation of bilateral lower extremity Status: Chronic Current Visit: Yes Code(s): I87.323 - CHRONIC VENOUS H TN W INFLAMMATION OF BILATERAL LOW EXTRM (9) Chronic venous hypertension (idiopathic) with ulcer of left lower extremity Status: Resolved Current Visit: No Code(s): I87.312 - CHRONIC VENOUS HYPERTENSIO N W ULCER OF L LOW EXTREM (10) Chronic venous stasis dermatitis Status: Chronic Current Visit: Yes Code(s): I87.2 - VENOUS INSUFFICIENCY (CHRONIC) (PERIPHERAL) (11) Diabetes Status: Chronic Current Vi sit: Yes Qualifiers: Diabetes mellitus type: type 2 Code(s): E11.9 - TYPE 2 DIABETES MELLITUS WITHOUT COMPLICATIONS (12) Hx of venous thrombosis and embolism Status: Chronic Current Visit: Yes Code(s): Z86.718 - PERSONAL HISTORY OF OTHER VENOUS THROMBOSIS AND EMBOLISM (13) Hyperlipidemia Status: Chronic Current Visit: No Code(s): E78.5 - HYPERLIPIDEMIA, UNSPECIFIED (14) Hyperpigmentation of skin St atus: Chronic Current Visit: Yes Code(s): L81.9 - DISORDER OF PIGMENTATION, UNSPECIFIED (15) Hypertension Status: Chronic Current Visit: No Code(s): I10 - ESSENTIAL (PRIMARY) HYPERTENSION (16) Hypert ension Status: Chronic Current Visit: No Code(s): I10 - ESSENTIAL (PRIMARY) HYPERTENSION (17) Leg swelling Status: Chronic Current Visit: Yes Code(s): M79.89 - OTHER SPECIFIED SOFT TISSUE DISORDERS ( 18) Lipodermatosclerosis Status: Chronic Current Visit: Yes Code(s): I83.10 - VARICOSE VEINS OF UNSP LOWER EXTREMITY WITH INFLAMMATION (19) Localized edema Status: Chronic Current Visit: Yes Code(s): R 60.0 - LOCALIZED EDEMA (20) Obesity Status: Chronic Current Visit: Yes Qualifiers: Obesity type: due to excess calories Body mass index: BMI 33.0-33.9 Code(s): E66.9 - OBESITY, UNSPECIFIED (21) Post-p hlebitic dermatosis of both lower extremities Status: Chronic Current Visit: Yes Code(s): I87.093 - POSTTHROM SYNDROME W OTH COMP OF BILATERAL LOW EXTRM (22) Type 2 diabetes mellitus Status: Chronic Cu rrent Visit: Yes Code(s): E11.9 - TYPE 2 DIABETES MELLITUS WITHOUT COMPLICATIONS (23) 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 Current Visit: Yes Code(s): E11.59 - TYPE 2 DIABETES MELLITUS WITH OTH CIRCULATORY COMPLICATIONS (24) Ulcer Status: Chronic Current Visit: No Code(s): L98.499 - NON-PRESSURE CHRONIC ULCER OF SKIN OF SITES W UNSP SEVERITY (25) history of cellulitis of leg Status: Chronic Current Visit: Yes History of Present Illness Date of Service: 03/06/17 Chief Complaint: Severe swelling, edema, and lymphedema of the lower extremities associated wit h severe hyperpigmentation and lipodermatosclerosis History of Wound: This is a 76-year-old female with a long-standing history of swelling, edema, lymphedema in her lower extremities. She has been garrett juan at the [facility] wound healing center in recent weeks for an ulceration in the left medial supramalleolar area. With a combination of conservative treatment measures, including use of Milena and Tubigrip's, the ulcer healed. The ulceration is now completely healed and epithelialized. The patient claims to sleep in a recliner each night due to low back pain. She spends long hours e ach day in an idle sitting position. Patient has a history of bilateral lower extremity superficial thrombophlebitis. In 2010, the patient was treated for a deep vein thrombosis in the right lower extre mity. She remained on Coumadin for many years. However, after gastrointestinal bleeding in September 2015, her Coumadin was discontinued. We have been using SurePress compression wraps to the lower extremit ies, in addition to implementing leg elevation, avoidance of idle standing and sitting, and active lifestyle as a result, the swelling in the lower extremities is markedly diminished. 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 The patient underwent excision of a right hip lipoma in the past. Patient is a Ab0. Allergies/Adverse Reactions: Allergies atorvastatin calcium [From Lipitor] Allergy (Verified 11/15/15 15:31) Unknown ezetimibe [From Zetia] Allergy (Verified 11/15/15 15:31) Unknown lisinopril Allergy (Verified 11/15/15 15:31) Un known neomycin [Neomycin] Allergy (Verified 11/15/15 15:31) Unknown neomycin sulfate [From Neosporin ([id number])] Allergy (Verified 11/15/15 15:31) Itching polymyxin B [Polymyxin B] Allergy (Verifie d 11/15/15 15:31) Unknown Sulfa (Sulfonamide Antibiotics) Allergy (Verified 01/15/17 10:38) Unknown tetracycline [Tetracycline] Allergy (Verified 11/15/15 15:31) Itching Home Medications: Ambulatory O rders Medication Instructions Recorded Amoxicillin/Potassium Clav [Amox 1 each PO BID 01/15/17 - Family History Maternal No pertinent history, - - Patient's father at age of 74 with a histor y of diabetes mellitus. The patient's mother at age of 59 with a myocardial infarction. Paternal No pertinent history Smoking Status: Never smoker Tobacco Use: Non-smoker Review of Systems Con stitutional: Denies: Chills, Fever, Weight Change Eyes: Denies: Pain, Vision Change HEENT: Denies: Difficulty Hearing, Difficulty Swallowing, Sinus Congestion Cardiovascular: Denies: Chest Pain, Palpita tions Respiratory: Denies: Cough, Shortness of Breath Gastrointestinal: Denies: Diarrhea, Nausea, Vomiting Genitourinary: Denies: Dysuria, Hematuria Endocrine: Denies: Heat/ Cold Intolerance, Polydipsia , Polyuria Hematologic/ Lymphatic: Denies: Easy Bruising, Easy Bleeding - Physical Exam Vital Signs Temp Pulse Resp BP Pulse Ox 99.5 F 84 18 150/59 03/06/17 13:13 03/06/17 13:13 03/06/17 13:13 7 13:13 General: Alert, Oriented x3, Cooperative, No apparent distress, Well developed, Well nourished HEENT: Atraumatic, PERRLA, EOMI, Normocephalic Oral: Moist Mucosa Neck: No JVD Lungs: Normal air movement Abdomen: Non-Distended Extremities: No clubbing, No cyanosis, No Calf Tenderness, - - Swelling and edema in the lower extremities is markedly improved. Circumference measurements are documented elsewhere. There are no open wounds or ulcerations. There is no evidence of erythema or cellulitis. Chronic changes are noted laterally, particularly on the left, comprising lipodermatosclerosis and hy perpigmentation in the gaiter areas. Wound Measurements and Assessment WC - Nurse 1 - General Ulcer Measurement Start: 03/06/17 13:13 Freq: Status: Active Activity Type Activity Date Activity User E-Si gn Co-Sign Detail Recorded Client Recorded Date Recorded By Document 03/06/17 13:13 [id number] 03/06/17 13:22 Wound Center Nurse 1 [Edema Assessment] - Lower Limb Edema Present Yes -Right Calf (cm) 38 -Right Ankle (cm) 24.5 -Left Calf (cm) 40.5 -Left Ankle (cm) 23.2 - Nurse 2 - General Ulcer CM Notes Start: 03/06/17 13:13 Freq: Status: Active Activity Type Activity Date Activity User E-Sign Co-S ign Detail Recorded Client Recorded Date Recorded By Document 03/06/17 14:12 DV [id number] 03/06/17 14:13 DV Pain Scale: 0-10 Numeric [Pain] -Is Patient Pain Free? Yes Neurological: Cranial nerves II-XI I grossly intact, Neuro grossly intact Psych/Mental Status: Normal Affect, Appropriate, Alert and oriented to time, place, person, mood and affect Debridement Note Post-Debridement Measurements/Treatme nt WC - Nurse 2 - General Ulcer CM Notes Start: 03/06/17 13:13 Freq: Status: Active Activity Type Activity Date Activity User E-Sign Co-Sign Detail Recorded Client Recorded Date Recorded By Document 14:12 DV [id number] 03/06/17 14:13 DV Pain Scale: 0-10 Numeric Is Patient Pain Free? 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 A noninvasive lower extremity arterial study has been performed, which was normal. Venous duplex examination reveals incompetence of the great saphenous veins bilaterally, as well as incompetence of the left small saphenous vein. Superficial thrombophlebitis is noted in the left posterior calf. These findings have been discussed with the patient in detail. It appears as though th e patient's lifestyle will require modification, lest the patient continue to have problems in her lower extremities which will include swelling, edema, lymphedema, ulceration, profound skin changes, et c. In addition, with a history of lower extremity thrombophlebitis, she is also at enhanced risk, which can be moderated by means of behavioral modification. Plan: We have discussed the implementation o f conservative treatment measures. The patient appears somewhat resistant to this idea. Leg elevation has been highly recommended. The patient has been encouraged to refrain from sleeping in a recliner. She has been encouraged to sleep on a flat surface at night. Leg elevation to heart level has been encouraged even during daytime hours. She has been discouraged from prolonged idle sitting. Activity h as been encouraged. Weight loss has been encouraged. Compression of an adequate degree has also been recommended. We are to continue SurePress on a daily basis. Only, the patient will be transitioned to the use of Juxta Lites or graduated compression stockings. She appears to prefer the use of Velcro garments in the future. The patient has been instructed in appropriate means of application, and she w ill do so each day from morning until bedtime. Patient will return in 1 week for reassessment. It is anticipated that compliance with recommended measures may be of significant benefit. We have briefly discussed the option of more aggressive intervention, though conservative measures appear more appropriate as an initial approach. Patient will return in 1 week for reassessment. Consideration may be gi sd to an imaging study to further evaluate the possibility of suspected benign masses involving each ankle, as has been previously diagnosed by other providers. The patient does not smoke. Influenza va ccine was not administered today. The patient stands 4 feet 10 inches tall. She weighs 160 pounds. Her BMI is 33.4, which places her in the class I category. Weight loss has been recommended. The jeffrey zhu has been advised to collaborate with her primary care physician in terms of weight loss options. 03/06/17 1422 <Electronically signed by Bao Brothers MD> Date Bao Brothers MD CC: Signed 27-Feb-2017 Wound Ctr History AND Physical Result: Comments: See Note; NOTES: [facility] [address] [place] [address] Wound Ctr History AND Physical 02/27/17 1412 MR#: [id number] Acct: [id number] Name: BRISSA WHITE Rep #: [id number] : 1940 76 From: Bao Brothers MD PCP: Lesly Chairez Status: REG RCR Y Location: WC (1) Chronic venous hypertension (idiopathic) with inflammation of bilateral lowe r extremity Status: Chronic Current Visit: Yes Code(s): I87.323 - CHRONIC VENOUS HTN W INFLAMMATION OF BILATERAL LOW EXTRM (2) 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 Curren t Visit: Yes Code(s): I87.093 - POSTTHROM SYNDROME W OTH COMP OF BILATERAL LOW EXTRM (3) Lipodermatosclerosis Status: Chronic Current Visit: Yes Code(s): I83.10 - VARICOSE VEINS OF UNSP LOWER EXTREMITY WITH INFLAMMATION (4) Hyperpigmentation of skin Status: Chronic Current Visit: Yes Code(s): L81.9 - DISORDER OF PIGMENTATION, UNSPECIFIED (5) Leg swelling Status: Chronic Current Visit: Yes Code(s): M79.89 - OTHER SPECIFIED SOFT TISSUE DISORDERS (6) Localized edema Status: Chronic Current Visit: Yes Code(s): R60.0 - LOCALIZED EDEMA (7) Type 2 diabetes mellitus with other circulatory complicatio ns Status: Chronic Current Visit: Yes Code(s): E11.59 - TYPE 2 DIABETES MELLITUS WITH OTH CIRCULATORY COMPLICATIONS (8) Chronic venous stasis dermatitis Status: Chronic Current Visit: Yes Code(s): I87. 2 - VENOUS INSUFFICIENCY (CHRONIC) (PERIPHERAL) (9) Diabetes Status: Chronic Current Visit: Yes Qualifiers: Diabetes mellitus type: type 2 Code(s): E11.9 - TYPE 2 DIABETES MELLITUS WITHOUT COMPLICATION S (10) Hyperlipidemia Status: Chronic Current Visit: No Code(s): E78.5 - HYPERLIPIDEMIA, UNSPECIFIED (11) Hypertension Status: Chronic Current Visit: No Code(s): I10 - ESSENTIAL (PRIMARY) HYPERTENSION (12) Obesity Status: Chronic Current Visit: Yes Qualifiers: Obesity type: due to excess calories Obesity classification: adult class 1 (BMI 30 ? 34.9) Body mass index: BMI 33.0-33.9 Code(s): E66.9 - O BESITY, UNSPECIFIED History of Present Illness Date of Service: 02/27/17 Chief Complaint: Severe swelling, edema, and lymphedema of the lower extremities associated with severe hyperpigmentation and li podermatosclerosis History of Wound: This is a 76-year-old female with a long- standing history of swelling, edema, lymphedema in her lower extremities. She has been treated at the [facility] wound healing center in recent weeks for an ulceration in the left medial supramalleolar area. With a combination of conservative treatment measures, including use of Milena and Tubigrip's, the ulc er healed. The ulceration is now completely healed and epithelialized. The patient claims to sleep in a recliner each night due to low back pain. She spends long hours each day in an idle sitting positi on. Patient has a history of bilateral lower extremity superficial thrombophlebitis. In 2010, the patient was treated for a deep vein thrombosis in the right lower extremity. She remained on Coumadin fo r many years. However, after gastrointestinal bleeding in September 2015, her Coumadin was discontinued. We have been using 3M 2 layer compression wraps to the lower extremities, in addition to implementing leg elevation, avoidance of idle standing and sitting, and active lifestyle as a result, the swelling in the lower extremities is markedly diminished. 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 The patient underwent excision of a right hip lipoma in the past. Patient is a Ab0. Allergies/Adverse Reactions: Allergies atorvastatin calcium [From Lipitor] Allergy (Verified 11/15/15 15:31) Unknown ezetimibe [From Zetia] Allergy (Verified 11/15/15 15:31) Unknown lisinopril Allergy (Verified 11/15/15 15:31) Unknown neomyc in [Neomycin] Allergy (Verified 11/15/15 15:31) Unknown neomycin sulfate [From Neosporin ([id number])] Allergy (Verified 11/15/15 15:31) Itching polymyxin B [Polymyxin B] Allergy (Verified 11/15/15 1 5:31) Unknown Sulfa (Sulfonamide Antibiotics) Allergy (Verified 01/15/17 10:38) Unknown tetracycline [Tetracycline] Allergy (Verified 11/15/15 15:31) Itching Home Medications: Ambulatory Orders Medic ation Instructions Recorded Amoxicillin/Potassium Clav [Amox 1 each PO BID 01/15/17 - Family History Maternal No pertinent history, - - Patient's father at age of 74 with a history of diabete s mellitus. The patient's mother at age of 59 with a myocardial infarction. Paternal No pertinent history Lives: Alone Smoking Status: Never smoker Tobacco Use: Non-smoker Alcohol: None Drugs: None Review of Systems Constitutional: Denies: Chills, Fever, Weight Change Eyes: Denies: Pain, Vision Change HEENT: Denies: Difficulty Hearing, Difficulty Swallowing, Sinus Congestion Cardiovascular: Denies: Chest Pain, Palpitations Respiratory: Denies: Cough, Shortness of Breath Gastrointestinal: Denies: Diarrhea, Nausea, Vomiting Genitourinary: Denies: Dysuria, Hematuria Endocrine: Denies: Heat/ C old Intolerance, Polydipsia, Polyuria Hematologic/ Lymphatic: Denies: Easy Bruising, Easy Bleeding - Physical Exam Vital Signs Temp Pulse Resp BP Pulse Ox 99.1 F 83 18 148/82 02/27/17 13:25 02/27/17 1 3:25 02/27/17 13:25 02/27/17 13:25 General: Alert, Oriented x3, Cooperative, No apparent distress, Well developed, Well nourished HEENT: Atraumatic, PERRLA, EOMI, Normocephalic Oral: Moist Mucosa Neck : No JVD Lungs: Normal air movement Abdomen: Non-Distended Extremities: No clubbing, No cyanosis, No Calf Tenderness, - - The swelling and edema in the lower extremities persists, but is markedly improv ed. Dimensions are documented elsewhere. There are no open wounds or ulcerations. There is no sign of infection or cellulitis. Chronic hyperpigmentation and lipodermatosclerosis persist in the distal le ft lower extremity. Ankles are markedly enlarged, and there is suspicion of possible lipomas involving the ankles, which is an issue that has been previously presented to the patient a s a possibility by other providers. Skin: No breakdown Wound Measurements and Assessment WC - Nurse 1 - General Ulcer Measurement Start: 02/03/17 13:02 Freq: Status: Active Activity Type Activity Date Activity User E-Sign Co-Sign Detail Recorded Client Recorded Date Recorded By Document 02/27/17 13:25 [facility] [id number] 02/27/17 13:34 [facility] Nurse 1 [Edema Assessment] -Lower Limb Edema Present Yes -Right Calf (cm) 39.7 -Right Ankle (cm) 26 -Left Calf (cm) 41 -Left Ankle (cm) 26.5 - Nurse 2 - General Ulcer CM Notes Start: 02/03/17 13:02 Freq: Status: Active Activity Type Activity Date Activit y User E-Sign Co-Sign Detail Recorded Client Recorded Date Recorded By Document 02/27/17 13:50 DV [id number] 02/27/17 13:50 DV Pain Scale: 0-10 Numeric [Pain] -Is Patient Pain Free? Yes Neurological: Cr anial nerves II-XII grossly intact, Neuro grossly intact Psych/Mental Status: Normal Affect, Appropriate, Alert and oriented to time, place, person, mood and affect Debridement Note Post-Debridement Me asurements/Treatment WC - Nurse 2 - General Ulcer CM Notes Start: 02/03/17 13:02 Freq: Status: Active Activity Type Activity Date Activity User E-Sign Co-Sign Detail Recorded Client Recorded Date Recor ded By Document 02/27/17 13:50 DV [id number] 02/27/17 13:50 DV Pain Scale: 0-10 Numeric Is Patient Pain Free? 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 A noninvasive lower extremity arterial study has been performed, which was normal. Venous duplex examination reveals incompete nce of the great saphenous veins bilaterally, as well as incompetence of the left small saphenous vein. Superficial thrombophlebitis is noted in the left posterior calf. These findings have been discuss ed with the patient in detail. It appears as though the patient's lifestyle will require modification, lest the patient continue to have problems in her lower extremities which will include swelling, ed mark, lymphedema, ulceration, profound skin changes, etc. In addition, with a history of lower extremity thrombophlebitis, she is also at enhanced risk, which can be moderated by means of behavioral keerthi fication. Plan: We have discussed the implementation of conservative treatment measures. The patient appears somewhat resistant to this idea. Leg elevation has been highly recommended. The patient has b een encouraged to refrain from sleeping in a recliner. She has been encouraged to sleep on a flat surface at night. Leg elevation to heart level has been encouraged even during daytime hours. She has be en discouraged from prolonged idle sitting. Activity has been encouraged. Weight loss has been encouraged. Compression of an adequate degree has also been recommended. We are to use SurePress on a daily basis. The patient has been instructed in appropriate means of application, and she will do so each day from morning until bedtime. Patient will return in 1 week for reassessment. It is anticipated kaylee t compliance with recommended measures may be of significant benefit. We have briefly discussed the option of more aggressive intervention, though conservative measures appear more appropriate as an ini tial approach. Patient will return in 1 week for reassessment. Consideration may be given to an imaging study to further evaluate the possibility of suspected benign masses involving each ankle, as has been previously diagnosed by other providers. The patient does not smoke. Influenza vaccine was not administered today. The patient stands 4 feet 10 inches tall. She weighs 160 pounds. Her BMI is 33.4, which places her in the class I category. Weight loss has been recommended. The patient has been advised to collaborate with her primary care physician in terms of weight loss options. 02/27/17 1418 & amp;#60;Electronically signed by Bao Brothers MD> Date Bao Brothers MD CC: Signed 20-Feb-2017 Wound Ctr History AND Physical Result: Comments: See Note; NOTES: [facility] [address] [place] [address] Wound Ctr History AND Physical 02/20/17 1309 MR#: [id number] Acct: [id number] Name: BRISSA WHITE Rep #: [id number] : 1940 76 From: Bao Brothers MD PCP: Lesly Chairez Status: REG RCR Y Location: WC (1) Chronic venous hypertension (idiopathic) with inflammation of bilateral lowe r extremity Status: Chronic Current Visit: Yes Code(s): I87.323 - CHRONIC VENOUS HTN W INFLAMMATION OF BILATERAL LOW EXTRM (2) 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 Curren t Visit: Yes Code(s): I87.093 - POSTTHROM SYNDROME W OTH COMP OF BILATERAL LOW EXTRM (3) Lipodermatosclerosis Status: Chronic Current Visit: Yes Code(s): I83.10 - VARICOSE VEINS OF UNSP LOWER EXTREMITY WITH INFLAMMATION (4) Hyperpigmentation of skin Status: Chronic Current Visit: Yes Code(s): L81.9 - DISORDER OF PIGMENTATION, UNSPECIFIED (5) Leg swelling Status: Chronic Current Visit: Yes Code(s): M79.89 - OTHER SPECIFIED SOFT TISSUE DISORDERS (6) Localized edema Status: Chronic Current Visit: Yes Code(s): R60.0 - LOCALIZED EDEMA (7) Type 2 diabetes mellitus with other circulatory complicatio ns Status: Chronic Current Visit: Yes Code(s): E11.59 - TYPE 2 DIABETES MELLITUS WITH OTH CIRCULATORY COMPLICATIONS (8) Chronic venous stasis dermatitis Status: Chronic Current Visit: Yes Code(s): I87. 2 - VENOUS INSUFFICIENCY (CHRONIC) (PERIPHERAL) (9) Diabetes Status: Chronic Current Visit: Yes Qualifiers: Diabetes mellitus type: type 2 Code(s): E11.9 - TYPE 2 DIABETES MELLITUS WITHOUT COMPLICATION S (10) Hyperlipidemia Status: Chronic Current Visit: No Code(s): E78.5 - HYPERLIPIDEMIA, UNSPECIFIED (11) Hypertension Status: Chronic Current Visit: No Code(s): I10 - ESSENTIAL (PRIMARY) HYPERTENSION (12) Obesity Status: Chronic Current Visit: Yes Qualifiers: Obesity type: due to excess calories Obesity classification: adult class 1 (BMI 30 ? 34.9) Body mass index: BMI 33.0-33.9 Code(s): E66.9 - O BESITY, UNSPECIFIED History of Present Illness Date of Service: 02/20/17 Chief Complaint: Severe swelling, edema, and lymphedema of the lower extremities associated with severe hyperpigmentation and li podermatosclerosis History of Wound: This is a 76-year-old female with a long- standing history of swelling, edema, lymphedema in her lower extremities. She has been treated at the [facility] wound healing center in recent weeks for an ulceration in the left medial supramalleolar area. With a combination of conservative treatment measures, including use of Milena and Tubigrip's, the [facility] er healed. The ulceration is now completely healed and epithelialized. The patient claims to sleep in a recliner each night due to low back pain. She spends long hours each day in an idle sitting positi on. Patient has a history of bilateral lower extremity superficial thrombophlebitis. In 2010, the patient was treated for a deep vein thrombosis in the right lower extremity. She remained on Coumadin fo r many years. However, after gastrointestinal bleeding in September 2015, her Coumadin was discontinued. 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 Patient's histor y is negative for myocardial infarction, congestive heart failure, cerebrovascular accident, pulmonary disease, renal disease, cancer, and thyroid disease. 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 The patient underwent excision of a right hip lipoma in the past. Patient is a Ab0. Allergies/Adve rse Reactions: Allergies atorvastatin calcium [From Lipitor] Allergy (Verified 11/15/15 15:31) Unknown ezetimibe [From Zetia] Allergy (Verified 11/15/15 15:31) Unknown lisinopril Allergy (Verified 11/03 07/21 15:31) Unknown neomycin [Neomycin] Allergy (Verified 11/15/15 15:31) Unknown neomycin sulfate [From Neosporin ([id number])] Allergy (Verified 11/15/15 15:31) Itching polymyxin B [Polymyxin B] Al lergy (Verified 11/15/15 15:31) Unknown Sulfa (Sulfonamide Antibiotics) Allergy (Verified 01/15/17 10:38) Unknown tetracycline [Tetracycline] Allergy (Verified 11/15/15 15:31) Itching Home Medications : Ambulatory Orders Medication Instructions Recorded Amoxicillin/Potassium Clav [Amox 1 each PO BID 01/15/17 - Family History Maternal No pertinent history, - - Patient's father at age of 74 with a history of diabetes mellitus. The patient's mother at age of 59 with a myocardial infarction. Paternal No pertinent history Social History: Patient is . 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 She denies use of alcohol and tobacco products. Lives: Alone Smoking Status: Never smoker Tobacco Use: Non-smoker Alcohol: None Drugs: None Review of Systems Constitutional: Denie s: Chills, Fever, Weight Change Eyes: Denies: Pain, Vision Change HEENT: Denies: Difficulty Hearing, Difficulty Swallowing, Sinus Congestion Cardiovascular: Denies: Chest Pain, Palpitations Respiratory: Denies: Cough, Shortness of Breath Gastrointestinal: Denies: Diarrhea, Nausea, Vomiting Genitourinary: Denies: Dysuria, Hematuria Endocrine: Denies: Heat/ Cold Intolerance, Polydipsia, Polyuria Hematol ogic/ Lymphatic: Denies: Easy Bruising, Easy Bleeding - Physical Exam Vital Signs Temp Pulse Resp BP Pulse Ox 97.8 F 76 18 135/92 02/20/17 12:18 02/20/17 12:18 02/20/17 12:18 02/20/17 12:18 General: Alert, Oriented x3, Cooperative, No apparent distress, Well developed, Well nourished HEENT: Atraumatic, PERRLA, EOMI, Normocephalic Oral: Moist Mucosa, No Gingival or Mucosal Lesions/ Ulcerations Neck : Supple, No JVD, Negative Carotid Bruits, Negative Hepatojugular Reflux, No Nodes, No Nuchal Rigidity, Trachea Midline Lungs: Clear to auscultation, Normal air movement, No rhonchi, No wheeze, No rales Cardiovascular: Regular rate, Regular Rhythm, Normal S1, Normal S2, No murmurs Abdomen: Soft, Non Tender, Non-Distended, Obese Extremities: No clubbing, No cyanosis, No Calf Tenderness, - - Severe swel ling, edema, lymphedema is noted in the lower extremity's bilaterally. Edema at ankle level is severe. Lipodermatosclerosis and hyperpigmentation are noted in the gaiter areas bilaterally. There are no keya open ulcerations at this time, but a pre-ulcerative lesion is noted in the right supramalleolar area on the medial surface. Wound Measurements and Assessment WC - Nurse 1 - General Ulcer Measurem ent Start: 02/03/17 13:02 Freq: Status: Active Activity Type Activity Date Activity User E-Sign Co-Sign Detail Recorded Client Recorded Date Recorded By Document 02/20/17 12:18 [facility] [id number] 02/20/17 12:21 [facility] WC - Nurse 2 - General Ulcer CM Notes Start: 02/03/17 13:02 Freq: Status: Active Activity Type Activity Date Activity User E-Sign Co-Sign Detail Recorded Client Recorded Date Recorded By Document 02/20/17 12:53 DV [id number] 02/20/17 13:04 DV Pain Scale: 0-10 Numeric [Pain] - Is Patient Pain Free? Yes Neurological: Cranial nerves II-XII grossly intact, Neuro grossly intact Psych/Mental Status: N ormal Affect, Appropriate, Alert and oriented to time, place, person, mood and affect Debridement Note Post-Debridement Measurements/Treatment WC - Nurse 2 - General Ulcer CM Notes Start: 02/03/17 13: 02 Freq: Status: Active Activity Type Activity Date Activity User E-Sign Co-Sign Detail Recorded Client Recorded Date Recorded By Document 02/20/17 12:53 DV [id number] 02/20/17 13:04 DV Pain Scale: 0-10 Amelie howell Is Patient Pain Free? 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 A n oninvasive lower extremity arterial study has been performed, which was normal. Venous duplex examination reveals incompetence of the great saphenous veins bilaterally, as well as incompetence of the le ft small saphenous vein. Superficial thrombophlebitis is noted in the left posterior calf. These findings have been discussed with the patient in detail. It appears as though the patient's lifestyle lenard l require modification, lest the patient continued to have problems in her lower extremities which will include swelling, edema, lymphedema, ulceration, profound skin changes, etc. In addition, with a h istory of lower extremity thrombophlebitis, she is also at enhanced risk, which can be moderated by means of behavioral modification. Plan: We have discussed the implementation of conservative treatment measures. The patient appears somewhat resistant to this idea. Leg elevation has been highly recommended. The patient has been encouraged to refrain from sleeping in a recliner. She has been encouraged to sleep on a flat surface at night. Leg elevation to heart level has been encouraged even during daytime hours. She has been discouraged from prolonged idle sitting. Activity has been encouraged. Weig ht loss has been encouraged. Compression of an adequate degree has also been recommended. We are to implement the use of 3M 2 layer compression wraps, which will be changed twice weekly. Patient will re turn in 1 week for reassessment. It is anticipated that compliance with recommended measures may be of significant benefit. We have briefly discussed the option of more aggressive intervention, though c onservative measures appear more appropriate as an initial approach. Patient will return in 1 week for reassessment. The patient does not smoke. Influenza vaccine was not administered today. The patient stands 4 feet 10 inches tall. She weighs 160 pounds. Her BMI is 33.4, which places her in the class I category. Weight loss has been recommended. The patient has been advised to collaborate with her [facility] physician in terms of weight loss options. 02/20/17 1330 <Electronically signed by Bao Brothers MD> Date Bao Brothers MD CC: Signed 17-Feb-2017 Lower Ext Arterial Study Result: Comments: See Note; NOTES: [facility] Cardiovascular Services [address] [place] [address] 02/17/17 1612 MR#: [id number] Acct: [id number] Name: BRISSA SOARES Rep #: [id number] : 1940 76 From: Bao Brothers MD Attending Dr: Andre Gutierrez MD Status: DIS RCR Ordering Dr: Date: 02/17/17 Location: [facility] Sex: F C Admitted: Arterial Study - Arterial Study Arteria l Study: This is a 76-year-old female with a history of coronary artery disease, peripheral arterial disease, hypertension, hyperlipidemia, and diabetes mellitus. Patient presents with a chronic nonhea ling ulceration of the left lower extremity as well as associated cellulitis. With a history of peripheral arterial occlusive disease, the patient was brought to the noninvasive vascular laboratory at t his time for the purpose of bilateral noninvasive lower extremity arterial assessment. Doppler signal assessment was used to evaluate the pulses at ankle level bilaterally. The posterior tibial and buffy salis pedis pulses were triphasic bilaterally. Segmental limb pressures were obtained bilaterally. However, ankle pressures could not be obtained on either side, based upon posterior tibial and dorsali s pedis pulses, due to the noncompressibility of the vasculature. The right digital pressure was measured at 110 mmHg. The left digital pressure was measured at 114 mmHg. Pulse-volume recordings were o btained bilaterally and segmentally. Waveform amplitudes appeared to be satisfactory at all levels bilaterally, including low thigh, calf, ankle, and digital levels. Resting ankle-brachial indices coul d not be determined on either side due to the noncompressibility of vasculature at ankle level bilaterally. Digital-brachial indices were calculated bilaterally. The right digital-brachial index was ca lculated to be 0.83. The left digital-brachial index was calculated to be 0.86. Impression: Based upon the findings of this resting noninvasive lower extremity arterial study, there is evidence of vin rial calcification at the ankle level bilaterally. This is evidenced by noncompressibility of the vasculature at ankle level bilaterally. Triphasic waveforms were noted at ankle level bilaterally. Digit al-brachial indices were bilaterally normal. These findings suggest relatively normal arterial perfusion in the lower extremities bilaterally, without evidence of significant arterial occlusive disease bilaterally. Clinical correlation is advised. 02/17/171615 <Electronically signed by Bao Brothers MD> Date Bao Brothers MD CC: Lesly Chairez Date Dictated: 02/17/171611 Date Transcribed: 02/17/171611 Hand Tube Winder: PASCALE Signed 14-Feb-2017 Venous Duplex Lower Extremity Result: Comments: See Note; NOTES: [facility] Cardiovascular Services [address] [place] [address] Venous Duplex US - Jasson Extrem 02/14/17 1252 MR#: [id number] Acct: [id number] Name: BRISSA SOARES Rep #: [id number] : 1940 76 From: Bao Brothers MD Attending Dr: Paul Srinivasan DPM Status: REG RCR Ordering Dr: Paul Srinivasan DPM Date: 02/14/17 Location: Sex: F C Admitte d: Reason For Study: Edema RIGHT LEFT GSV is normal. GSV is normal. CFV is compressible, spontaneous, phasic, CFV is compressible, spontaneous, phasic, competent and demonstrates normal competent, and demonstrates normal augmentation. augmentation. FV is compressible, spontaneous, phasic, FV is compressible, spontaneous, phasic, competent and demonstrates normal competent and demonstrates normal augmentation. augmentation. POP V is compressible, spontaneous, phasic, POP V is compressible, spontaneous, phasic, competent and demonstrates normal competent and demonstrates normal augmentation. aug mentation. T/P Trunk is compressible. T/P Trunk is compressible. PTV is compressible. PTV is compressible. RT PerV is compressible. LT PerV is compressible. SFJ is competent SFJ is competent GSV is INCO MPETENT with reflux greater GSV is INCOMPETENT with reflux greater than .5 sec and diameter of .35 x .39 cm than .5 sec and diameter of .74 x .71 cm SSV is competent. SSV is INCOMPETENT with reflux grea ter Procedure than .5 sec and diameter of .35 x .32 cm Exam performed in department. Thrombus filled varicosities noted lt A preliminary report was called and/or faxed posterior calf. to [facility]. Interpret ation Summary Deep veins of the lower extremities are bilaterally patent and compressible segmentally. There is no evidence of deep vein thrombosis on either side. Valvular competence appears intact wit hin the proximal deep venous systems bilaterally. The greater saphenous veins appear bilaterally patent and compressible segmentally. Sapheno-femoral junctions are bilaterally competent . Segmental valv ular incompetence is noted within the greater saphenous veins bilaterally. The right small saphenous vein is patent and competent. The left small saphenous vein is patent and incompetent. Acute superfic ial thrombophlebitis is noted involving superficial varicosities in the left posterior calf. Orde ring Physician: Paul Srinivasan Performed By: Laury Fragoso RVT 02/14/17 1529 Date _ Bao Brothers MD CC: Lesly Chairez; Paul Srinivasan DPM Date Dictated: 02/14/17 1252 Date Transcribed: 02/14/17 1529 Hand Tube Winder: Signed 07-Feb-2017 Wound Ctr History AND Physical Result: Comments: See Note; NOTES: [facility] [address] [place] [address] Wound Ctr History AND Physical 02/07/17 1617 MR#: [id number] Acct: [id number] Name: BRISSA WHITE Rep #: [id number] : 1940 76 From: Paul Srinivasan DPM PCP: Lesly Chairez Status: REG RCR Y Location: WC (1) Non-pressure chronic ulcer of left calf with fat layer exposed Status: Acu te Current Visit: Yes Code(s): L97.222 - NON-PRESSURE CHRONIC ULCER OF LEFT CALF W FAT LAYER EXPOSED (2) Chronic venous hypertension (idiopathic) with ulcer of left lower extremity Status: Chronic Curr ent Visit: Yes Code(s): I87.312 - CHRONIC VENOUS HYPERTENSION W ULCER OF L LOW EXTREM (3) 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 Current Visit: Yes Code(s): E11.5 9 - TYPE 2 DIABETES MELLITUS WITH OTH CIRCULATORY COMPLICATIONS (4) Localized edema Status: Chronic Current Visit: Yes Code(s): R60.0 - LOCALIZED EDEMA History of Present Illness Date of Service: 10/19 Chief Complaint: non healing ulcer left leg History of Wound: 76 year female. History of DVT RLE and chronic stasis dermatitis R and left leg, edema, and recurring cellulitis of the legs. Several w eeks ago she developed another episode of cellulitis left leg and is treated with antibiotics including augmentin by her PCP and is improving. She developed a wound on the left leg as well since about 3 weeks that is not healing. She is a former patient of Dr. Gutierrez and is seeing me for further treatment. Had arterial studies that show non-compressible blood vessels. Did not have venous study. Usin g milena every other day along with tubigrips. Ulcer improved. Denies redness, pus, malodor, warmth, pain. Denies N/V/F/C. Unable to take anti-coagulants due to hx of bleeding ulcer. 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 the 1979 fatyy tumor tubal ligation 3 d AND c spir removed Allergies/Adverse Reactions: Allergies atorvastatin jessica cium [From Lipitor] Allergy (Verified 11/15/15 15:31) Unknown ezetimibe [From Zetia] Allergy (Verified 11/15/15 15:31) Unknown lisinopril Allergy (Verified 11/15/15 15:31) Unknown neomycin [Neomycin] Al lergy (Verified 11/15/15 15:31) Unknown neomycin sulfate [From Neosporin ([id number])] Allergy (Verified 11/15/15 15:31) Itching polymyxin B [Polymyxin B] Allergy (Verified 11/15/15 15:31) Unknown De [place]az lfa (Sulfonamide Antibiotics) Allergy (Verified 01/15/17 10:38) Unknown tetracycline [Tetracycline] Allergy (Verified 11/15/15 15:31) Itching Home Medications: Ambulatory Orders Medication Instructio ns Recorded Amoxicillin/Potassium Clav [Amox 1 each PO BID 01/15/17 - Family History Maternal No pertinent history Paternal No pertinent history Smoking Status: Never smoker Tobacco Use: Non-s moker Alcohol: None Drugs: None Review of Systems Constitutional: Denies: Chills, Fever, Weight Change Eyes: Denies: Pain, Vision Change HEENT: Denies: Difficulty Hearing, Difficulty Swallowing, Sinus Congestion Cardiovascular: Reports: Edema. Denies: Chest Pain, Palpitations Respiratory: Denies: Cough, Shortness of Breath Gastrointestinal: Denies: Diarrhea, Nausea, Vomiting Genitourinary: Denies: Dy suria, Hematuria Skin: Reports: Wounds Neurological: Denies: Numbness, Tingling Endocrine: Denies: Heat/ Cold Intolerance, Polydipsia, Polyuria Hematologic/ Lymphatic: Reports: Hx of blood clot. Denies: Easy Bruising, Easy Bleeding - Physical Exam Vital Signs Temp Pulse Resp BP Pulse Ox 97.7 F 81 18 144/61 02/07/17 15:30 02/07/17 15:30 02/07/17 15:30 02/07/17 15:30 General: Alert, Oriented x3, Title I Coordinator perative, No apparent distress HEENT: Atraumatic, Normocephalic Extremities: No clubbing, No cyanosis, No Calf Tenderness, Edema, Peripheral Pulses Normal Skin: Ulcer/ Wound - L medial calf with no eryt raoul, no malodor, no purulence, no calor, or TTP of wound and tony-wound area, and no other clinical signs of acute bacterial infection noted. Please see wound/edema assessment below. Wound Measurements and Assessment WC - Nurse 1 - General Ulcer Measurement Start: 02/03/17 13:02 Freq: Status: Active Activity Type Activity Date Activity User E-Sign Co-Sign Detail Recorded Client Recorded Date Recorde d By Document 02/07/17 15:30 [id number] 02/07/17 15:32 Wound Center Nurse 1 - Nurse 2 - General Ulcer CM Notes Start: 02/03/17 13:02 Freq: Status: Active Activity Type Activity Date Activity User E-Sign Co-Sign Detail Recorded Client Recorded Date Recorded By Document 02/07/17 16:11 [id number] [id number] 02/07/17 16:12 Wound Center Nurse 2 [Procedure/Treatment] Musculoskeletal: No Tenderness to Palp ation of Joints or Extremities, No Muscle Wasting Neurological: Neuro grossly intact, Motor Exam 5/5 strength throughout, Sensory exam intact to light touch and pain, Coordination normal, Gait narrow ba sed and stable Psych/Mental Status: Alert and oriented to time, place, person, mood and affect - wnl Debridement Note Post-Debridement Measurements/Treatment WC - Nurse 2 - General Ulcer CM Notes Star t: 02/03/17 13:02 Freq: Status: Active Activity Type Activity Date Activity User E-Sign Co-Sign Detail Recorded Client Recorded Date Recorded By Document 02/07/17 16:11 IZZY [id number] 02/07/17 16:12 IZZY [facility] Nurse 2 #1 Left Medial Lower Extremity -Time 16:11 -Correct Patient Yes -Correct Side, Site, Position Yes Wound debrided: L calf Laterality: Left Wound Grade/Stage: full thickness VLU Type o f Debridement: Excisional debridement Anesthesia Used: 4% Lidocaine Solution Depth: Down to and including healthy tissue, in the subcutaneous layer Percentage of wound debrided: 100 Instrument Used: 3mm curette Tissue Removed: fibrous slough Severity: Fat Layer Exposed Amount of bleeding with debridement: Mild Bleeding Controlled with: Pressure, Compression and gauze Patient tolerated procedure well Assessment/Plan Active Problems Non-pressure chronic ulcer of left calf with fat layer exposed (Acute) Chronic venous hypertension (idiopathic) with ulcer of left lower extremity (Chronic) Localized ed mark (Chronic) 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 SQ/excision al debridement as above. Cont Milena moistened with saline followed by dry gauze every other day. Stop tubigrip, start spandagrip size E. Discussed importance of leg elevation, avoiding idle sitting or standing, increased activity, weight management for edema relief. Pt unable to take NSAIDs due to hx bleeding ulcer. Reviewed arterial studies--non-compressible vessels but waveforms are multiphasic and TBI normal. Ordered venous duplex. Will refer to Dr. Brothers prn. Monitor for redness, pus, malodor, warmth, pain, inc swelling as well as for N/V/F/C, calf pain, thigh pain, chest pain, SOB and go to [facility] ED with these. 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 Status: Acute Current Visit: Yes Code(s): I70.249 - ATHSCL [place] ARTERIES OF LEFT LEG W ULCERATION OF UNSP SI TE (3) Non-pressure chronic ulcer of left ankle with fat layer exposed Status: Acute Current Visit: Yes Code(s): L97.322 - NON-PRESSURE CHRONIC ULCER OF LEFT ANKLE W FAT LAYER EXPOSED (4) Chronic veno us stasis dermatitis Status: Acute Current Visit: Yes Code(s): I87.2 - VENOUS INSUFFICIENCY (CHRONIC) (PERIPHERAL) (5) Chronic venous hypertension (idiopathic) with ulcer of left lower extremity Status : Acute Current Visit: Yes Code(s): I87.312 - CHRONIC VENOUS HYPERTENSION W ULCER OF L LOW EXTREM (6) Hypertension Status: Acute Current Visit: Yes Code(s): I10 - ESSENTIAL (PRIMARY) HYPERTENSION (7) Diabetes Status: Acute Current Visit: Yes Code(s): E11.9 - TYPE 2 DIABETES MELLITUS WITHOUT COMPLICATIONS (8) Hyperlipidemia Status: Acute Current Visit: Yes Code(s): E78.5 - HYPERLIPIDEMIA, UNSPECIFIE D (9) Generalized weakness Status: Acute Current Visit: Yes Code(s): R53.1 - WEAKNESS (10) Hx of venous thrombosis and embolism Status: Chronic Current Visit: No Code(s): Z86.718 - PERSONAL HISTORY OF OTHER VENOUS THROMBOSIS AND EMBOLISM History of Present Illness Date of Service: 01/26/17 Chief Complaint: non healing ulcer left leg History of Wound: 76 year female. History of DVT unknown site, and chronic stasis dermatitis left leg, edema, reported PVD, and recurring cellulitis of the legs. Several weeks ago she developed another episode of cellulitis left leg and is treated with antibiotics inc luding augmentin by her PCP and is improving, cultures were not done at [facility]. She developed a wound on the left leg as well since about 2 weeks that is not healing. She presented to ER recently. She is referred to wound clinic for further care. 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 the 1960s 1979 fatyy tumor tubal ligation 3 d AND c spir removed Allergies/Adverse Reactions: Allergies atorvastatin calcium [From Lipitor] Allergy (Verified 11/15/15 15:31) Unknown ezetimibe [From Zetia] Allergy (Verified 11/15/15 15 :31) Unknown lisinopril Allergy (Verified 11/15/15 15:31) Unknown neomycin [Neomycin] Allergy (Verified 11/15/15 15:31) Unknown neomycin sulfate [From Neosporin ([id number])] Allergy (Verified 15:31) Itching polymyxin B [Polymyxin B] Allergy (Verified 11/15/15 15:31) Unknown Sulfa (Sulfonamide Antibiotics) Allergy (Verified 01/15/17 10:38) Unknown tetracycline [Tetracycline] Allergy (Verif ied 11/15/15 15:31) Itching Home Medications: Ambulatory Orders Medication Instructions Recorded Amoxicillin/Potassium Clav [Amox 1 each PO BID 01/15/17 - Family History Maternal No pertinent h istory Paternal No pertinent history Smoking Status: Never smoker Review of Systems Constitutional: Denies: Chills, Fever, Weight Change Eyes: Denies: Pain, Vision Change HEENT: Denies: Difficulty Hearing, Difficulty Swallowing, Sinus Congestion Cardiovascular: Denies: Chest Pain, Palpitations Respiratory: Denies: Cough, Shortness of Breath Gastrointestinal: Denies: Diarrhea, Nausea, Vomiting Gen itourinary: Denies: Dysuria, Hematuria Skin: Reports: Wounds - ulcer and rash of the left leg Endocrine: Denies: Heat/ Cold Intolerance, Polydipsia, Polyuria Hematologic/ Lymphatic: Denies: Easy Bruisin g, Easy Bleeding - Physical Exam Vital Signs Temp Pulse Resp BP Pulse Ox 96.0 F 54 18 140/53 01/26/17 09:48 01/26/17 09:48 01/26/17 09:48 01/26/17 09:48 General: Alert, Oriented x3, Cooperative, No apparent distress HEENT: PERRLA, EOMI Neck: Supple, No JVD, Negative Carotid Bruits Lungs: Clear to auscultation Cardiovascular: Regular rate, Regular Rhythm Abdomen: Soft, Non Tender Extremities: No ed mark, Capillary Refill Less than 3 Seconds Skin: Ulcer/ Wound - erythema and mild warmth in the mid left leg, no drainage. there is spots of erythema proximally which might be an allergy, otherwise looks like the cellulitis is improving. the wound with dry slough was debrided and exposed underlying healthy bleeding tissue. delayed capilary refil bilateral toes and cold and no palpable pedal pulses hilario artem no evidence of gangrene and this appears to be chronic. additionally chronic venous dermatitis skin changes, nonpitting lymphedema noted as well. 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 Milena dialy then gauze,. tubigrip and leg elevati on for edema relief,. check arterial studies,. follow up one week and prn, 01/26/17 1135 <Electronically signed by Andre Gutierrez MD> Date Andre Gutierrez MD CC: Signed 16-Jan-2017 Emergency Department Summary Result: Comments: See Note; NOTES: [facility] Medical Records Department [address] [place] [address] Emergency Department Summary 01/15/17 1100 MR#: [id number] Acct: [id number] Name: BARTBRISSA M Rep #: [id number] : 1940 76 From: Jackson Marshall MD PCP: Lesly Chairez Status: DEP ER - ER Visit Summary Date of Service: 01/15/17 Chief Complaint: [] Legs infected with yellow d rainage History of Present Illness: The patient is a 76 F [] presents with left leg greater than right cellulitis over the last 2-3 weeks. She has had this before and had to be admitted. She was starte d on flow cephalosporin a few days ago and then switched 3 days ago to Augmentin she said the redness is gone away but an open area on the medial left leg had some clear yellow drainage and she was conc erned. No fever chills nausea vomiting. Minimal discomfort Physical Examination: [] Vital signs are stable female lying on stretcher no sign of distress brains are moist. Her right distal leg just abov e the ankle where there is significant edema has pink erythema circumferentially no open wounds no extra warmth or discomfort. Her left leg has a same type of ankle and foot edema. Above it is a area of erythema circumferentially about 5 cm in length and then it turns into just chronic brawny changes. On the medial aspect of the reddened area she has some superficial skin loss with slight serous drain age. No signs of infection, lymphangitis, or increased warmth. Motor sensorivascular intact. Area the opened area is about 5 x 4 cm very irregular. Alert oriented good affect. She was advised of this. Test Results: [] Emergency Department Course and Treatment: [] She had a Telfa nonstick dressing after bacitracin and gauze. She should do the same once or twice daily. She notes that this may drain se ant fluid for quite some time. Watch for redness that increases which actually is less than a joya placed by her doctor a few days ago. Watch for red streaks fever chills nausea vomiting. Yellow that s he sees being serous cyst be watched for morbid purulent yellow base discharge and she understood. M is with her and understood. Treatment Plan: [] Above Disposition: [] Home with follow-up tomorrow a s already scheduled Impression: [] Lateral left greater than right lower extremity cellulitis. ED Disposition - Plan for ED Patient: Chief Complaint: Cellulitis What to do if you have Problems F or any increased pain, shortness of breath, bleeding, nausea or vomiting, chest pain, or any unexpected problems, contact your Primary Care Provider. Call [facility] ([phone]) or report to [facility] Emergency Room. Call 911 if necessary. 01/16/17 0747 <Electronically signed by Jackson Marshall MD> Date Jackson Marshall MD Cosign er Signature (If Indicated): Date CC: Lesly Chairez 09-Dec-2016 Spine Lumbar (Routine) Result: Comments: See Note; NOTES: [facility] Imaging Services [address] [place] [address] Verdana 4d Spine Lumbar (Routine) MR#: [id number] Acct: [id number] Name: BARTBRISSA Rep #: [id number] : 1940 F 76 From: Isidro Cole MD PCP: Lesly Chairez Status: REG CLI Study: Spine Lumbar (Routine) Date of Exam: 12/09/16 Exam# [id number] Ordering Dr: Lesly Chairez UDY: MRI LUMBAR SPINE WITHOUT CONTRAST REASON FOR EXAM: Female, 76 years old. Back low back pain TECHNIQUE: Standardized fat and water weighted pulse sequences were obtained in the sagittal and axial planes. COMPARISON: None FINDINGS: There is normal alignment and curvature of the lumbosacral spine with no acute fractures or dislocations and no abnormal marrow i nfiltrative processes. The conus medullaris terminates at L1. The disc spaces at L2-3 L3-4 L4-5 and L5-S1 are narrowed T12-L1: Normal endplates. Normal disc height, hydration and morphology. Normal jasson ateral facet joints. Normal central canal and bilateral lateral recesses. Normal bilateral intervertebral neural foramina. L1-2: Normal endplates. Normal disc height, hydration and morphology. Normal b ilateral facet joints. Normal central canal and bilateral lateral recesses. Normal bilateral intervertebral neural foramina. L2-3: Mild facet arthrosis. No focal disc protrusion or extrusion. Narrowed disc space L3-4: Disc space narrowing with Modic endplate changes and small marginal osteophytes. Asymmetric disc bulging. Bulging disc encroaches on the left intervertebral foramen. L4-5: Disc space narrowing with Modic endplate changes but no focal disc protrusion or extrusion. The facet joints are normal. No central canal stenosis. L5-S1: Disc space narrowing with spurs from the vertebral body a nd place an asymmetric disc bulging. The bulging disc narrows the right intervertebral foramen. There are degenerative changes of the facet joints. 013 MRI/Spine Lumbar (Routine) IMPRESSION: Intervertebral osteochondrosis at L2- 3 L3-4 L4-5 and L5-S1. No fractures and no abnormal marrow infiltrative processes Facet arthrosis at L2-3 and L5-S1. As ymmetric disc bulging at L5-S1 with bulging disc narrowing the right intervertebral foramen. Electronically Signed: Isidro Cole, at 7:17 EDT Tel , Service support 1- [phone], CC: Lesly Chairez Hand Tube Winder: Signed 23-Sep-2016 L/S Spine Min 4 Views Result: Comments: See Note; NOTES: [facility] Imaging Services [address] [place] [address] Verdana 4d L/S Spine Min 4 Views MR#: [id number] Acct: [id number] Name: BRISSA SOARES ep #: [id number] : 1940 F 76 From: Alisia Kinsey PCP: Lesly Chairez Status: REG CLI Study: L/S Spine Min 4 Views Date of Exam: 09/23/16 Exam# [id number] Ordering Dr: Lesly Chairez STUDY: X-RAY - TAYLOR MBAR SPINE REASON FOR EXAM: Female, 76 years old. low back pain TECHNIQUE: 5 view(s) of the lumbar spine were obtained. COMPARISON: None FINDINGS: There is moder ate multilevel endplate spondylosis of the lumbar vertebrae. There is moderate/severe multi-level degenerative disc disease with multi-level disc space narrowing. There is atherosclerotic calcification of the abdominal aorta without a demonstrated aneurysm. RAD/L/S Spine Min 4 Views IMPRESSION: Moderate/severe degenerative changes of the spine. Electronically Signed: Alisia Kinsey MD at 8:42 EDT Tel , Service support , CC: Lesly Chairez Hand Tube Winder: Signed 08-Apr-2016 Humerus min 2 Views Result: Comments: See Note; NOTES: [facility] Imaging Services [address] [place] [address] Verdana 4d Humerus min 2 Views MR#: [id number] Acct: [id number] Name: BRISSA SOARES p #: [id number] : 1940 F 75 From: Sergio Perea MD PCP: Lesly Chairez Status: REG CLI Study: Humerus min 2 Views Date of Exam: 04/08/16 Exam# [id number] Ordering Dr: Lesly Chairez STUDY: X-R AY - RIGHT HUMERUS REASON FOR EXAM: Female, 75 years old. Pain overlying the medial aspect of the elbow joint following a recent bee sting. TECHNIQUE: 2 view(s) of the humerus. COMPARISON: None. ____ FINDINGS: Normal visualized humerus. There is no demonstrated fracture or osseous destructive process. Suspect calcific tendinitis overlying the greater tuberosity of th e proximal humerus. RAD/Humerus min 2 Views IMPRESSION: Findings suggestive of calcific tendinitis overlying the proximal humerus. Electronica lly Signed: Sergio Perea MD at 15:05 EDT Tel [phone], Service support [phone], CC: Lesly Chairez Hand Tube Winder: Signed 29-Feb-2016 Bilat Scrn Digital AND CAD Result: Comments: See Note; NOTES: [facility] Imaging Services [address] [facility] [place] [address] Verdana 4d Bilat Scrn Digital AND CAD MR#: [id number] Acct: [id number] Name: FER SOARES Rep #: [id number] : 1940 F 75 From: Sergio Perea MD PCP: Lesly Chairez Status: REG CLI Study: Bilat Scrn Digital AND CAD Date of Exam: 02/29/16 Exam# [id number] Ordering Dr: Lesly Chairez MAMMOGRAPHY - BILATERAL SCREENING REASON FOR EXAM: Female, 75 years old. Routine annual screening examination. PERTINENT HISTORY: Non-contributory. TECHNIQUE: Digital bilateral breast iván (3D ma mmographic acquisition) in the CC and MLO projections. 2-D mediolateral oblique (MLO) and craniocaudad (CC) views of both breasts were obtained. CAD: Full Field Digital Mammography with Computer Added D etection was performed. COMPARISON: Comparison is made with prior study dated February 16, 2015 and February 06, 2014. FINDINGS: Breast Composition: There are scat tered areas of fibroglandular density. There are no dominant masses or suspicious calcifications. No other significant abnormalities are identified. There has been no significant change since the [facility] study. HPBI/Bilat Scrn Digital AND CAD IMPRESSION: Stable bilateral screening mammogram. Yearly follow-up mammogram recommended. (A) ASSESSMENT CATEGORY: BIRADS Category 1: Negative. A letter regarding these results will be sent to the patient by the facility within 30 days. Approximately 10% of breast c ancers are not detected by mammography. A normal mammogram should not delay biopsy of a clinically suspicious abnormality. [id number] Electronically Signed: Sergio Perea MD at 11:19 EDT Tel [phone], Service support [phone], CC: Lesly Chairez Hand Tube Winder: Signed 25-Dec-2015 Gastric Emptying Study Result: Comments: See Note; NOTES: [facility] Imaging Services [address] [place] [id number] Verdana 4d Gastric Emptying Study MR#: [id number] Acct: [id number] Name: BRISSA WHITE Rep #: [id number] : 1940 F 75 From: Jhon Carreno DO PCP: Akosua Enrique MD Status: REG CLI Study: Gastric Emptying Study Date of Exam: 12/25/15 Exam# [id number] Ordering Dr: Jonathan Blanco MD CLINICAL: 75-year-old female with reported history of chronic nausea and early satiety. SEMI-SOLID PHASE Tc SULFUR COLLOID GASTRIC EMPTYING STUDY COMPARISON: None available F INDINGS: The patient was administered 1.1 mCi of Tc sulfur colloid mixed with oatmeal and consumed per os. Image acquisitions in the anterior-posterior projections were obtained for 60 minutes. There is prompt visualization of the stomach. There is no gastroesophageal reflux identified. The T1/2 linear fit was calculated to be 46.1 minutes, (Normal: 12- 56 minutes). IMPRESSION: 1. NORMAL Tc sul fur colloid semi-solid phase (oatmeal) gastric emptying imaging examination. A. There is normal and preserved semi-solid phase gastric emptying compared to normal controls. (Leslie, J Nu cl Med Tech 38: 186, 2010). Electronically Signed: Jhon Carreno at 7:59 EDT Tel , Service support [phone], CC: Akosua Enrique MD; Jonathan Oates Hand Tube Winder: Signed 15-Nov-2015 Emergency Department Summary Result: Comments: See Note; NOTES: [facility] Medical Records Department [address] [place] [address] Emergency Department Summary MR#: [id number] Acct: [id number] Name: BRISSA SOARES Rep #: [id number] : 1940 75 From: Eladio Mai MD PCP: Akosua Enrique MD Status: DEP ER DATE OF SERVICE: 11/15/2015 HISTORY OF PRESENT ILLNESS: The patient presents because of black stool. She is presently on iron. She is taking one 325 mg iron sulfate tablet twice a day. She denies any orthostatic symptoms. She denies any cardiac or respiratory symptoms. She denies any abdominal discomfort. She reports not eating well and reports weight loss. PHYSICAL EXAMINATION: HEENT: Unremarkable. The conjunctiva is pink. She does not appear pale. There is no petechia or pur duane noted. LUNGS: Clear to auscultation. HEART: Regular. ABDOMEN: Soft, nontender. RECTAL: She has areas of excoriation in the perianal area and there is evidence of hemorrhoids. Stool is dark gre en. It is not black or sticky consistent with melena. Hemoccult test was obtained since there was no obvious bright red blood noted. EMERGENCY DEPARTMENT COURSE: The Hemoccult test is positive. IM PRESSION: Hemoccult-positive stool. DISPOSITION: Discharge. PLAN: Instructed to follow up with Dr. Oates. MD Parul Saunders C: Akosua Oates MD T: [facility] JOB: [id number] 11/15/152037 <Electronically signed by Eladio Mai MD> Date Eladio Mai MD Cosigner Signature (If Indicated): Date CC: Akosua Enrique MD; Jonathan Oates Date Dictated: 11/15/151620 Date Transcribed: 11/15/151620 Hand Tube Winder: Signed 15-Nov-2015 Discharge Instruction Result: Comments: See Note; NOTES: [facility] Medical Records Department [address] [place] [address] Discharge Instruction 11/15/158 MR#: [id number] Acct: [id number] Name: BRISSA SOARES Rep #: [id number] : 1940 75 From: Eladio Mai MD PCP: Akosua Enrique MD Status: REG ER ED Disposition - Plan for ED Patient: Disposition: Home or Assisted Living Chief Complaint: GI Bleed Instructions: ED GI Bleed, Upper (Stable) Referrals: Akosua Enrique MD [Primary Care Provider] - Jonathan Oates MD [STAFF PHYSICIAN] - 3-5 Days What to do if you have P roblems For any increased pain, shortness of breath, bleeding, nausea or vomiting, chest pain, or any unexpected problems, contact your doctor. Call [facility] ([phone]) or report to the closest Emergency Room. Call 911 if necessary. 11/15/151620 <Electronically signed by Eladio Mai MD> Date Eladio granados Signature (If Indicated): Date CC: Akosua Enrique MD 26-Sep-2015 Brain/Head without Contrast Result: Comments: See Note; NOTES: [facility] Imaging Services [address] [place] [address] Verdana 4d Brain/Head without Contrast MR#: [id number] Acct: [id number] Name: BRISSA SOARES Rep #: [id number] : 1940 F 75 From: Garry Knowles DO PCP: Akosua Enrique MD Status: REG ER Study: Brain/Head without Contrast Date of Exam: 09/26/15 [facility] [id number] [facility] Jacques Hunt MD STUDY: CT BRAIN WITHOUT CONTRAST REASON FOR EXAM: Female, 75 years old. Vertigo RADIATION DOSAGE (If Supplied By Facility): CTDIvol = ( 58.47 ) mGy, DLP = ( 1023.35 ) mGy cm TECHNIQUE: Transaxial CT imaging of the brain was performed without administration of intravenous contrast material. Sagittal and coronal reconstructed images are provided and reviewed. Individ ualized dose optimization techniques were used for this CT. COMPARISON: None. FINDINGS: Vascular calcifications are seen. Normal calvarium. There is mild cere bral atrophy with widening of the extra-axial spaces and ventricular dilatation. Normal white matter tracts of the cerebral hemispheres. Normal basal ganglia and thalami. Normal brainstem. Normal cer ebellum. There is no intracranial hemorrhage. There are no findings of an acute ischemic infarction. There is minimal opacification of the left ethmoid sinus. IMPRESSION: Chronic involutional changes. No acute intracranial abnormality. Electronically Signed: Garry Knowles DO at 21:04 EDT Tel , Service support [phone], F ax [phone] CC: Akosua Enrique MD; Jacques Hunt MD Hand Tube Winder: Signed 03-Aug-2015 Shoulder min 2 Views Result: Comments: See Note; NOTES: [facility] Imaging Services [address] [place] [address] Verdana 4d Shoulder min 2 Views MR#: [id number] Acct: [id number] Name: BRISSA FERNANDO Rep #: [id number] : 1940 F 75 From: Sergio Perea MD PCP: Akosua Enrique MD Status: REG CLI Study: Shoulder min 2 Views Date of Exam: 08/03/15 Exam# [id number] Ordering Dr: Lesly Huang sa STUDY: X-RAY - RIGHT SHOULDER REASON FOR EXAM: Female, 75 years old. 7 month history of pain. TECHNIQUE: 4 view(s) of the shoulder. COMPARISON: None. ___ FINDINGS: Normal glenohumeral articulation. Normal acromioclavicular joint. Normal acromion. Normal humeral head and visualized proximal humerus. There is periarticular soft tissue calcifica tion consistent with a calcific tendinitis. Normal visualized pulmonary apex. IMPRESSION: 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 Electronically Signed : Sergio Perea MD at 11:31 EST Tel [phone], Service support [phone], RAD/Shoulder min 2 Views IMPRESSION: 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 Electronically Signed: Sergio Perea MD at 11:31 EST Tel [phone], Service support [phone], CC: Lesly Chairez; Akosua Enrique MD Hand Tube Winder: Signed 16-Feb-2015 Bilat Scrn Digital AND CAD Result: Comments: See Note; NOTES: [facility] Imaging Services [address] [place] [address] Breast Imaging Report MR#: [id number] Acct: [id number] Name: BRISSA SOARES Rep # : [id number] : 1940 F 74 From: Sergio Perea MD PCP: Akosua Enrique MD Status: REG CLI Study: Bilat Scrn Digital AND CAD Date of Exam: 02/16/15 Exam# [id number] Ordering Dr: Akosua Enrique MD MAMMOGRAPHY - BILATERAL SCREENING REASON FOR EXAM: Female, 74 years old. Routine annual screening examination. PERTINENT HISTORY: Non- contributory. TECHNIQUE: Digital examination. Mediola teral oblique (MLO) and craniocaudad (CC) views of both breasts were obtained. CAD: CAD was performed on this study. COMPARISON: Comparison is made with prior study dated February 06, 2014 and 2012. FINDINGS: Breast Composition: The breasts are almost entirely fatty. There are no dominant masses or suspicious calcifications. No other signific ant abnormalities are identified. There has been no significant change since the prior study. IMPRESSION: Stable bilateral screening mammogram. Yearly follow-up recommended. (A) ASSESSMENT CATEGORY: BIRADS Category 1: Negative. A letter regarding these results will be sent to the patient by the facility within 30 days. Approximately 10% of breast cancers are not detected by mammography. A normal mammogram should not delay biopsy of a clinically suspicious abnormality. Electronically Signed: Sergio Perea MD at 10:27 EDT Tel [phone], Service support [phone], CC: Akosua Enrique MD Hand Tube Winder: Signed 06-Feb-2014 Luci Gresham Digital & CAD Result: Comments: See Note; NOTES: [facility] Imaging Services [address] [place] [address] Breast Imaging Report MR#: [id number] Acct: [id number] Name: BRISSA SOARES Rep #: [id number] : 1940 F 73 From: Sergio Perea MD PCP: Akosua Enrique MD Status: REG CLI Exam# [id number] Ordering Dr: Akosua Enrique MD MAMMOGRAPHY - BILATERAL SCREENING REASON FOR EXA M: Female, 73 years old. Routine annual screening examination. PERTINENT HISTORY: Non-contributory. TECHNIQUE: Digital examination. Mediolateral oblique (MLO) and craniocaudad (CC) views of both b reasts were obtained. CAD: CAD was performed on this study. COMPARISON: Comparison is made with prior study dated January 31, 2013 and January 30, 2012 FINDINGS: Breast Composition: There are scattered areas of fibroglandular density. There are no dominant masses or suspicious calcifications. No other significant abnormalities are identified. There has bee n no significant change since the prior study. IMPRESSION: Stable bilateral screening mammogram. Yearly follow-up recommended. (A) ASSESSMENT CATEGORY: BIRADS Category 2: Benign finding(s). A letter regarding these results will be sent to the patient by the facility within 30 days. Approximately 10% of breast cancers a re not detected by mammography. A normal mammogram should not delay biopsy of a clinically suspicious abnormality. Electronically Signed: Sergio Perea MD at 11:35 EDT , Service support [phone], CC: Akosua Enrique MD Hand Tube Winder: Signed 25-Apr-2013 Dexa Bone Density Study (HP) Result: Comments: See Note; NOTES: [facility] Imaging Services [address] [place] [address] Bone Density Report MR#: [id number] Acct: [id number] Name: BRISSA SOARES Rep #: [id number] : 1940 F 72 From: Sergio Perea MD PCP: Akosua Enrique MD Status: REG CLI Study: Dexa Bone Density Study () Date of Exam: 04/25/13 Exam# [id number] Ordering Dr: Akosua Enrique MD STUDY: DUAL ENERGY X-RAY ABSORPTIOMETRY / DXA REASON FOR EXAM: Female, 72 years old. The patient is postmenopausal. TECHNIQUE: Bone Mineral Density (BMD) measurements of lumbar spine and jasson ateral hips were obtained. COMPARISON: None. FINDINGS: Lumbar Spine (L1-L4): g/cm2 (1.266) / T-score (0.8) / Z-score (2.5) Findings are suggestive of normal b one density with a low fracture risk. Left Femur Total: g/cm2 (1.004) / T-score (0.0) / Z-score (1.6) Left Femoral Neck: g/cm2 (0.964) / T-score (-0.5) / Z- score (1.3) Right Femur Total: g/cm2 (1.02 7) / T-score (0.2) / Z-score (1.8) Right Femoral Neck: g/cm2 (0.962) / T-score (-0.5) / Z-score (1.3) IMPRESSION: The patient is considered normal as outlined b elow according to World Nico Organization (WHO) criteria with a low fracture risk. Reference Information: The T- score is the number of standard deviations abov e or below the standard which is normal for young adults at their peak bone mineral density. The World Health Organization (WHO) interprets the T-scores as follows: Above -1 Normal bone density Be tween -1 and -2.5 Osteopenia Equal to / or below -2.5 Osteoporosis As a practical clinical guideline, osteopenia may be graded as follows: Mild -1 through -1.5 Moderate -1.6 through -2.0 Severe -2 .1 through -2.4 The Z-score is the number of standard deviations above or below age-matched controls. A Z-score of less than -1.5 would be considered abnormal. References: 1. NIH Osteoporosis and Related Bone Diseases http://www.osteo.org 2. International Society for Clinical Densitometry http://www.iscd.org 3. National Osteoporosis Foundation http://www.nof.org Signed: Sergio Perea M.D. April 25, 2013 at 3:13:26 PM EST [phone] Electronically Signed GP/GP If you are the referring physician and would like to consult with the radiologist who provided this interpretati on, please contact Sergio Perea M.D. at [phone]. If this radiologist is unavailable, you will be directed to another radiologist to assist. If you are a patient with a question regarding this report, please contact your referring physician directly. Professional Interpretation Provided By: [employer], Phone , These documents contain legally protecte d and confidential health information intended only for the use of the individual or entity named above. If you are not the intended recipient, you are hereby notified that any disclosure, copying, d istribution, or other use of these documents is strictly prohibited. If you have received this information in error, please notify the sender immediately and arrange for the return or destruction of these documents. CC: Akosua Enrique MD Hand Tube Winder: Signed Immunization Name Dates Details Influenza (3 years and up) on: 28-Mar-2006 Influenza (3 years and up) on: 04-Apr-2006 Influenza (3 years and up) on: 25-Mar-2008 Influenza (3 years and up) on: 11-Mar-2009 Zoster (shingles) Comments: [place] 04-14-13 Family History Unknown Family Member Name Dates Details Brother 1 Comments: AAA Status: Active Family Members In General Comments: Stomach CA, heart, lung, HBP, Ovarian/pelvic Status: Active Father Comments: CAD, DM, liver disease Status: Active Mother Comments: heart disease 59 yo Status: Active Social History Name Dates Details Alcohol Use Comments: Occasional alcohol use Status: Active Caffeine Use Comments: 3 QD Status: Active 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 Status: Active Tobacco Use Comments: Very little Status: Inactive Smoking Status Name Dates Details Never smoker Vital Signs Date Test Result Details :28 Temperature 98 f Comments: Method: Temporal Pulse 114 /min Comments: Pattern: Regular Respiration Rate 18 /min Comments: Pattern: Unlabored O2 SAT 96 % Comments: Room air BP Systolic 152 mm[Hg] Comments: Patient Position: Sitting; Cuff Location: Left Arm; Cuff Size: Standard BP Diastolic 72 mm[Hg] Comments: Patient Position: Sitting; Cuff Location: Left Arm; Cuff Size: Standard Weight 168.25 lb Height 61 in Body Mass Index Calculated 31.79 kg/m2 Body Surface Area Calculated 1.76 m2 :02 Temperature 97.2 f Comments: Method: Temporal Pulse 60 /min Comments: Pattern: Regular Respiration Rate 16 /min Comments: Pattern: Unlabored O2 SAT 99 % Comments: Room air BP Systolic 160 mm[Hg] Comments: Patient Position: Sitting; Cuff Location: Left Arm; Cuff Size: Standard BP Diastolic 82 mm[Hg] Comments: Patient Position: Sitting; Cuff Location: Left Arm; Cuff Size: Standard Weight 169.125 lb Height 61 in Body Mass Index Calculated 31.96 kg/m2 Body Surface Area Calculated 1.76 m2 :03 Temperature 97.6 f Comments: Method: Temporal Pulse 76 /min Comments: Pattern: Regular Respiration Rate 16 /min Comments: Pattern: Unlabored O2 SAT 98 % Comments: Room air BP Systolic 138 mm[Hg] Comments: Patient Position: Sitting; Cuff Location: Left Arm; Cuff Size: Standard BP Diastolic 82 mm[Hg] Comments: Patient Position: Sitting; Cuff Location: Left Arm; Cuff Size: Standard Weight 165 lb Height 61 in Body Mass Index Calculated 31.18 kg/m2 Body Surface Area Calculated 1.74 m2 :55 Weight 165 lb Height 61 in Body Mass Index Calculated 31.18 kg/m2 Body Surface Area Calculated 1.74 m2 :30 Temperature 97.7 f Pulse 67 /min Comments: Pattern: Regular Respiration Rate 16 /min Comments: Pattern: Unlabored O2 SAT 99 % Comments: Room air BP Systolic 132 mm[Hg] Comments: Patient Position: Sitting; Cuff Location: Left Arm; Cuff Size: Standard BP Diastolic 62 mm[Hg] Comments: Patient Position: Sitting; Cuff Location: Left Arm; Cuff Size: Standard Weight 158.25 lb Height 61 in Body Mass Index Calculated 29.9 kg/m2 Body Surface Area Calculated 1.71 m2 [id number] Temperature 97.7 f Pulse 74 /min Comments: Pattern: Regular Respiration Rate 16 /min Comments: Pattern: Unlabored O2 SAT 98 % Comments: Room air BP Systolic 132 mm[Hg] Comments: Patient Position: Sitting; Cuff Location: Left Arm; Cuff Size: Standard BP Diastolic 76 mm[Hg] Comments: Patient Position: Sitting; Cuff Location: Left Arm; Cuff Size: Standard Weight 158.25 lb Height 61 in Body Mass Index Calculated 29.9 kg/m2 Body Surface Area Calculated 1.71 m2 :35 Temperature 98.1 f Pulse 77 /min Comments: Pattern: Regular Respiration Rate 18 /min Comments: Pattern: Unlabored O2 SAT 97 % Comments: Room air BP Systolic 160 mm[Hg] Comments: Patient Position: Sitting; Cuff Location: Left Arm; Cuff Size: Standard BP Diastolic 76 mm[Hg] Comments: Patient Position: Sitting; Cuff Location: Left Arm; Cuff Size: Standard Weight 156.5625 lb Height 61 in Body Mass Index Calculated 29.58 kg/m2 Body Surface Area Calculated 1.7 m2 :32 Temperature 97.7 f Pulse 64 /min Comments: Pattern: Regular Respiration Rate 16 /min Comments: Pattern: Unlabored O2 SAT 97 % Comments: Room air BP Systolic 122 mm[Hg] Comments: Patient Position: Sitting; Cuff Location: Left Arm; Cuff Size: Standard BP Diastolic 68 mm[Hg] Comments: Patient Position: Sitting; Cuff Location: Left Arm; Cuff Size: Standard Weight 162 lb Height 61 in Body Mass Index Calculated 30.61 kg/m2 Body Surface Area Calculated 1.73 m2 :43 Temperature 98.3 f Comments: Method: Temporal Pulse 68 /min Comments: Pattern: Regular Respiration Rate 18 /min Comments: Pattern: Unlabored O2 SAT 98 % Comments: Room air BP Systolic 114 mm[Hg] Comments: Patient Position: Sitting; Cuff Location: Left Arm; Cuff Size: Large BP Diastolic 68 mm[Hg] Comments: Patient Position: Sitting; Cuff Location: Left Arm; Cuff Size: Large Weight 162 lb Height 61 in Body Mass Index Calculated 30.61 kg/m2 Body Surface Area Calculated 1.73 m2 :53 Temperature 97.1 f Comments: Method: Tympanic Pulse 70 /min Comments: Pattern: Regular Respiration Rate 18 /min Comments: Pattern: Unlabored O2 SAT 96 % Comments: Room air BP Systolic 150 mm[Hg] Comments: Patient Position: Sitting; Cuff Location: Left Arm; Cuff Size: Standard BP Diastolic 60 mm[Hg] Comments: Patient Position: Sitting; Cuff Location: Left Arm; Cuff Size: Standard Weight 162 lb Height 61 in Body Mass Index Calculated 30.61 kg/m2 Body Surface Area Calculated 1.73 m2 :44 Temperature 97.1 f Pulse 81 /min Comments: Pattern: Regular Respiration Rate 18 /min Comments: Pattern: Unlabored O2 SAT 96 % Comments: Room air BP Systolic 132 mm[Hg] Comments: Patient Position: Sitting; Cuff Location: Left Arm; Cuff Size: Standard BP Diastolic 74 mm[Hg] Comments: Patient Position: Sitting; Cuff Location: Left Arm; Cuff Size: Standard Weight 162 lb Height 61 in Body Mass Index Calculated 30.61 kg/m2 Body Surface Area Calculated 1.73 m2 :34 Temperature 98 f Comments: Method: Temporal Pulse 74 /min Comments: Pattern: Regular Respiration Rate 16 /min Comments: Pattern: Unlabored O2 SAT 98 % Comments: Room air BP Systolic 122 mm[Hg] Comments: Patient Position: Sitting; Cuff Location: Left Arm; Cuff Size: Standard BP Diastolic 70 mm[Hg] Comments: Patient Position: Sitting; Cuff Location: Left Arm; Cuff Size: Standard Weight 159.125 lb Height 61 in Body Mass Index Calculated 30.07 kg/m2 Body Surface Area Calculated 1.71 m2 :44 Pulse 72 /min Comments: Pattern: Irregular Respiration Rate 16 /min Comments: Pattern: Unlabored O2 SAT 97 % Comments: Room air BP Systolic 124 mm[Hg] Comments: Patient Position: Sitting; Cuff Location: Left Arm; Cuff Size: Standard BP Diastolic 64 mm[Hg] Comments: Patient Position: Sitting; Cuff Location: Left Arm; Cuff Size: Standard Weight 165.125 lb Height 61 in Body Mass Index Calculated 31.2 kg/m2 Body Surface Area Calculated 1.74 m2 :47 Temperature 97.9 f Pulse 72 /min Comments: Pattern: Regular Respiration Rate 16 /min Comments: Pattern: Unlabored O2 SAT 98 % Comments: Room air BP Systolic 122 mm[Hg] Comments: Patient Position: Sitting; Cuff Location: Left Arm; Cuff Size: Standard BP Diastolic 76 mm[Hg] Comments: Patient Position: Sitting; Cuff Location: Left Arm; Cuff Size: Standard Weight 165.125 lb Height 61 in Body Mass Index Calculated 31.2 kg/m2 Body Surface Area Calculated 1.74 m2 :28 Pulse 78 /min Comments: Pattern: Regular Respiration Rate 18 /min Comments: Pattern: Unlabored O2 SAT 97 % Comments: Room air BP Systolic 142 mm[Hg] Comments: Patient Position: Sitting; Cuff Location: Left Arm; Cuff Size: Large BP Diastolic 88 mm[Hg] Comments: Patient Position: Sitting; Cuff Location: Left Arm; Cuff Size: Large Weight 165.125 lb Height 61 in Body Mass Index Calculated 31.2 kg/m2 Body Surface Area Calculated 1.74 m2 :59 Weight 165.125 lb Height 61 in Body Mass Index Calculated 31.2 kg/m2 Body Surface Area Calculated 1.74 m2 :37 Temperature 97.6 f Pulse 62 /min Comments: Pattern: Regular Respiration Rate 16 /min Comments: Pattern: Unlabored O2 SAT 96 % Comments: Room air BP Systolic 116 mm[Hg] Comments: Patient Position: Sitting; Cuff Location: Left Arm; Cuff Size: Standard BP Diastolic 74 mm[Hg] Comments: Patient Position: Sitting; Cuff Location: Left Arm; Cuff Size: Standard Weight 165.125 lb Height 61 in Body Mass Index Calculated 31.2 kg/m2 Body Surface Area Calculated 1.74 m2 :02 Temperature 97.1 f Pulse 71 /min Comments: Pattern: Regular Respiration Rate 16 /min Comments: Pattern: Unlabored O2 SAT 95 % Comments: Room air BP Systolic 118 mm[Hg] Comments: Patient Position: Sitting; Cuff Location: Left Arm; Cuff Size: Standard BP Diastolic 78 mm[Hg] Comments: Patient Position: Sitting; Cuff Location: Left Arm; Cuff Size: Standard Weight 165.125 lb Height 61 in Body Mass Index Calculated 31.2 kg/m2 Body Surface Area Calculated 1.74 m2 :41 Temperature 97.2 f Comments: Method: Temporal Pulse 76 /min Comments: Pattern: Regular Respiration Rate 18 /min Comments: Pattern: Unlabored O2 SAT 97 % Comments: Room air BP Systolic 126 mm[Hg] Comments: Patient Position: Sitting; Cuff Location: Left Arm; Cuff Size: Large BP Diastolic 76 mm[Hg] Comments: Patient Position: Sitting; Cuff Location: Left Arm; Cuff Size: Large Weight 171 lb Height 61 in Body Mass Index Calculated 32.31 kg/m2 Body Surface Area Calculated 1.77 m2 :33 Temperature 97.1 f Comments: Method: Temporal Pulse 80 /min Comments: Pattern: Regular Respiration Rate 20 /min Comments: Pattern: Unlabored O2 SAT 96 % Comments: Room air BP Systolic 160 mm[Hg] Comments: Patient Position: Sitting; Cuff Location: Left Arm; Cuff Size: Large BP Diastolic 60 mm[Hg] Comments: Patient Position: Sitting; Cuff Location: Left Arm; Cuff Size: Large Weight 179 lb Height 61 in Body Mass Index Calculated 33.82 kg/m2 Body Surface Area Calculated 1.8 m2 :26 Temperature 97.6 f Pulse 85 /min Comments: Pattern: Regular Respiration Rate 18 /min Comments: Pattern: Unlabored O2 SAT 99 % Comments: Room air BP Systolic 126 mm[Hg] Comments: Patient Position: Sitting; Cuff Location: Left Arm; Cuff Size: Standard BP Diastolic 78 mm[Hg] Comments: Patient Position: Sitting; Cuff Location: Left Arm; Cuff Size: Standard Weight 178.125 lb Height 61 in Body Mass Index Calculated 33.66 kg/m2 Body Surface Area Calculated 1.8 m2 :03 Temperature 97.9 f Pulse 78 /min Comments: Pattern: Regular Respiration Rate 16 /min Comments: Pattern: Unlabored O2 SAT 94 % Comments: Room air BP Systolic 120 mm[Hg] Comments: Patient Position: Sitting; Cuff Location: Left Arm; Cuff Size: Standard BP Diastolic 76 mm[Hg] Comments: Patient Position: Sitting; Cuff Location: Left Arm; Cuff Size: Standard Weight 178.125 lb Height 61 in Body Mass Index Calculated 33.66 kg/m2 Body Surface Area Calculated 1.8 m2 :40 Temperature 97.5 f Pulse 88 /min Comments: Pattern: Regular Respiration Rate 15 /min Comments: Pattern: Unlabored O2 SAT 100 % Comments: Room air BP Systolic 138 mm[Hg] Comments: Patient Position: Sitting; Cuff Location: Left Arm; Cuff Size: Standard BP Diastolic 84 mm[Hg] Comments: Patient Position: Sitting; Cuff Location: Left Arm; Cuff Size: Standard Weight 175 lb Height 61 in Body Mass Index Calculated 33.07 kg/m2 Body Surface Area Calculated 1.79 m2 :33 BP Systolic 116 mm[Hg] Comments: Patient Position: Sitting BP Diastolic 72 mm[Hg] Comments: Patient Position: Sitting :07 Temperature 97 f Comments: Method: Temporal Pulse 73 /min Comments: Pattern: Regular Respiration Rate 20 /min Comments: Pattern: Unlabored O2 SAT 94 % Comments: Room air BP Systolic 142 mm[Hg] Comments: Patient Position: Sitting; Cuff Location: Left Arm; Cuff Size: Large BP Diastolic 80 mm[Hg] Comments: Patient Position: Sitting; Cuff Location: Left Arm; Cuff Size: Large Weight 175 lb Height 61 in Body Mass Index Calculated 33.07 kg/m2 Body Surface Area Calculated 1.79 m2 :33 Temperature 97.9 f Comments: Method: Temporal Pulse 64 /min Comments: Pattern: Regular Respiration Rate 20 /min Comments: Pattern: Unlabored O2 SAT 98 % Comments: Room air BP Systolic 114 mm[Hg] Comments: Patient Position: Sitting; Cuff Location: Left Arm; Cuff Size: Large BP Diastolic 68 mm[Hg] Comments: Patient Position: Sitting; Cuff Location: Left Arm; Cuff Size: Large Weight 177 lb Height 61 in Body Mass Index Calculated 33.44 kg/m2 Body Surface Area Calculated 1.79 m2 :23 Temperature 97.6 f Comments: Method: Temporal Pulse 70 /min Comments: Pattern: Regular Respiration Rate 18 /min Comments: Pattern: Unlabored O2 SAT 97 % Comments: Room air BP Systolic 110 mm[Hg] Comments: Patient Position: Sitting; Cuff Location: Left Arm; Cuff Size: Standard BP Diastolic 70 mm[Hg] Comments: Patient Position: Sitting; Cuff Location: Left Arm; Cuff Size: Standard Weight 178 lb Height 61 in Body Mass Index Calculated 33.63 kg/m2 Body Surface Area Calculated 1.8 m2 :12 Temperature 97.2 f Comments: Method: Temporal Pulse 68 /min Comments: Pattern: Regular Respiration Rate 18 /min Comments: Pattern: Unlabored O2 SAT 97 % Comments: Room air BP Systolic 122 mm[Hg] Comments: Patient Position: Sitting; Cuff Location: Left Arm; Cuff Size: Standard BP Diastolic 64 mm[Hg] Comments: Patient Position: Sitting; Cuff Location: Left Arm; Cuff Size: Standard Weight 177 lb Height 61 in Body Mass Index Calculated 33.44 kg/m2 Body Surface Area Calculated 1.79 m2 :41 Temperature 97.4 f Comments: Method: Temporal Pulse 70 /min Comments: Pattern: Regular Respiration Rate 20 /min Comments: Pattern: Unlabored BP Systolic 120 mm[Hg] Comments: Patient Position: Sitting; Cuff Location: Left Arm; Cuff Size: Large BP Diastolic 70 mm[Hg] Comments: Patient Position: Sitting; Cuff Location: Left Arm; Cuff Size: Large Weight 177 lb Height 61 in Body Mass Index Calculated 33.44 kg/m2 Body Surface Area Calculated 1.79 m2 :31 Temperature 97.8 f Comments: Method: Tympanic Pulse 58 /min Comments: Pattern: Regular Respiration Rate 18 /min Comments: Pattern: Unlabored O2 SAT 98 % Comments: Room air BP Systolic 140 mm[Hg] Comments: Patient Position: Sitting; Cuff Location: Left Arm; Cuff Size: Standard BP Diastolic 62 mm[Hg] Comments: Patient Position: Sitting; Cuff Location: Left Arm; Cuff Size: Standard :02 Pulse 68 /min Comments: Pattern: Regular Respiration Rate 16 /min Comments: Pattern: Unlabored BP Systolic 142 mm[Hg] Comments: Patient Position: Sitting; Cuff Location: Left Arm; Cuff Size: Standard BP Diastolic 60 mm[Hg] Comments: Patient Position: Sitting; Cuff Location: Left Arm; Cuff Size: Standard Weight 185.5 lb Height 61 in Body Mass Index Calculated 35.05 kg/m2 Body Surface Area Calculated 1.83 m2 :02 Temperature 97.6 f Comments: Method: Oral Pulse 68 /min Comments: Pattern: Regular Respiration Rate 20 /min Comments: Pattern: Unlabored BP Systolic 110 mm[Hg] Comments: Patient Position: Sitting; Cuff Location: Left Arm; Cuff Size: Large BP Diastolic 74 mm[Hg] Comments: Patient Position: Sitting; Cuff Location: Left Arm; Cuff Size: Large Weight 188 lb Height 61 in Body Mass Index Calculated 35.52 kg/m2 Body Surface Area Calculated 1.84 m2 :09 Temperature 97.9 f Comments: Method: Oral Pulse 76 /min Comments: Pattern: Regular Respiration Rate 18 /min Comments: Pattern: Unlabored BP Systolic 130 mm[Hg] Comments: Patient Position: Sitting; Cuff Location: Left Arm; Cuff Size: Large BP Diastolic 70 mm[Hg] Comments: Patient Position: Sitting; Cuff Location: Left Arm; Cuff Size: Large Weight 187 lb Height 61 in Body Mass Index Calculated 35.33 kg/m2 Body Surface Area Calculated 1.84 m2 :25 Pulse 73 /min Comments: Pattern: Regular Respiration Rate 16 /min Comments: Pattern: Unlabored O2 SAT 98 % Comments: Room air BP Systolic 142 mm[Hg] Comments: Patient Position: Sitting; Cuff Location: Left Arm; Cuff Size: Standard BP Diastolic 78 mm[Hg] Comments: Patient Position: Sitting; Cuff Location: Left Arm; Cuff Size: Standard Weight 193.375 lb Height 61 in Body Mass Index Calculated 36.54 kg/m2 Body Surface Area Calculated 1.86 m2 :43 Pulse 60 /min Comments: Pattern: Regular Respiration Rate 20 /min Comments: Pattern: Unlabored BP Systolic 120 mm[Hg] Comments: Patient Position: Sitting; Cuff Location: Left Arm; Cuff Size: Large BP Diastolic 62 mm[Hg] Comments: Patient Position: Sitting; Cuff Location: Left Arm; Cuff Size: Large Weight 201.375 lb Height 61 in Body Mass Index Calculated 38.05 kg/m2 Body Surface Area Calculated 1.89 m2 :04 Temperature 99 f Comments: Method: Oral Pulse 67 /min Comments: Pattern: Regular Respiration Rate 20 /min Comments: Pattern: Unlabored O2 SAT 97 % Comments: Room air BP Systolic 128 mm[Hg] Comments: Patient Position: Sitting; Cuff Location: Left Arm; Cuff Size: Large BP Diastolic 62 mm[Hg] Comments: Patient Position: Sitting; Cuff Location: Left Arm; Cuff Size: Large Weight 200 lb Height 61 in Body Mass Index Calculated 37.79 kg/m2 Body Surface Area Calculated 1.89 m2 :40 Temperature 97.5 f Comments: Method: Oral Pulse 88 /min Comments: Pattern: Regular Respiration Rate 20 /min Comments: Pattern: Unlabored O2 SAT 98 % Comments: Room air BP Systolic 120 mm[Hg] Comments: Patient Position: Sitting; Cuff Location: Left Arm; Cuff Size: Large BP Diastolic 60 mm[Hg] Comments: Patient Position: Sitting; Cuff Location: Left Arm; Cuff Size: Large Weight 200 lb Height 61 in Body Mass Index Calculated 37.79 kg/m2 Body Surface Area Calculated 1.89 m2 :53 Temperature 97 f Comments: Method: Oral Pulse 68 /min Comments: Pattern: Regular Respiration Rate 20 /min Comments: Pattern: Unlabored BP Systolic 124 mm[Hg] Comments: Patient Position: Sitting; Cuff Location: Left Arm; Cuff Size: Large BP Diastolic 76 mm[Hg] Comments: Patient Position: Sitting; Cuff Location: Left Arm; Cuff Size: Large Weight 200 lb Height 61 in Body Mass Index Calculated 37.79 kg/m2 Body Surface Area Calculated 1.89 m2 :00 Temperature 98.1 f Comments: Method: Oral Pulse 84 /min Comments: Pattern: Regular Respiration Rate 20 /min Comments: Pattern: Unlabored BP Systolic 120 mm[Hg] Comments: Patient Position: Sitting; Cuff Location: Left Arm; Cuff Size: Standard BP Diastolic 70 mm[Hg] Comments: Patient Position: Sitting; Cuff Location: Left Arm; Cuff Size: Standard Weight 200 lb Height 61 in Body Mass Index Calculated 37.79 kg/m2 Body Surface Area Calculated 1.89 m2 :46 Temperature 97 f Comments: Method: Oral Pulse 68 /min Comments: Pattern: Regular Respiration Rate 20 /min Comments: Pattern: Unlabored BP Systolic 118 mm[Hg] Comments: Patient Position: Sitting; Cuff Location: Left Arm; Cuff Size: Standard BP Diastolic 70 mm[Hg] Comments: Patient Position: Sitting; Cuff Location: Left Arm; Cuff Size: Standard Weight 200 lb Height 61 in Body Mass Index Calculated 37.79 kg/m2 Body Surface Area Calculated 1.89 m2 :29 Temperature 98.6 f Comments: Method: Oral Pulse 72 /min Comments: Pattern: Regular Respiration Rate 16 /min Comments: Pattern: Unlabored O2 SAT 98 % Comments: Room air BP Systolic 130 mm[Hg] Comments: Patient Position: Sitting; Cuff Location: Left Arm; Cuff Size: Standard BP Diastolic 60 mm[Hg] Comments: Patient Position: Sitting; Cuff Location: Left Arm; Cuff Size: Standard Weight 203.375 lb Height 61 in Body Mass Index Calculated 38.43 kg/m2 Body Surface Area Calculated 1.9 m2 :38 Temperature 97.8 f Comments: Method: Oral Pulse 60 /min Comments: Pattern: Regular Respiration Rate 16 /min O2 SAT 98 % Comments: Room air BP Systolic 132 mm[Hg] Comments: Patient Position: Sitting; Cuff Location: Left Arm; Cuff Size: Standard BP Diastolic 82 mm[Hg] Comments: Patient Position: Sitting; Cuff Location: Left Arm; Cuff Size: Standard Weight 212 lb Height 61 in Body Mass Index Calculated 40.06 kg/m2 Body Surface Area Calculated 1.94 m2 :02 Temperature 96.8 f Comments: Method: Temporal Pulse 64 /min Comments: Pattern: Regular Respiration Rate 16 /min Comments: Pattern: Unlabored O2 SAT 98 % Comments: Room air BP Systolic 122 mm[Hg] Comments: Patient Position: Sitting; Cuff Location: Left Arm; Cuff Size: Standard BP Diastolic 80 mm[Hg] Comments: Patient Position: Sitting; Cuff Location: Left Arm; Cuff Size: Standard Weight 212 lb Height 61 in Body Mass Index Calculated 40.06 kg/m2 Body Surface Area Calculated 1.94 m2 :48 Temperature 97.9 f Comments: Method: Oral Pulse 64 /min Comments: Pattern: Regular Respiration Rate 20 /min Comments: Pattern: Unlabored BP Systolic 124 mm[Hg] Comments: Patient Position: Sitting; Cuff Location: Left Arm; Cuff Size: Standard BP Diastolic 64 mm[Hg] Comments: Patient Position: Sitting; Cuff Location: Left Arm; Cuff Size: Standard Weight 209 lb Height 61 in Body Mass Index Calculated 39.49 kg/m2 Body Surface Area Calculated 1.92 m2 :49 Temperature 98.2 f Comments: Method: Oral Pulse 74 /min Comments: Pattern: Regular Respiration Rate 20 /min Comments: Pattern: Unlabored BP Systolic 138 mm[Hg] Comments: Patient Position: Sitting; Cuff Location: Left Arm; Cuff Size: Standard BP Diastolic 60 mm[Hg] Comments: Patient Position: Sitting; Cuff Location: Left Arm; Cuff Size: Standard Weight 209 lb Height 61 in Body Mass Index Calculated 39.49 kg/m2 Body Surface Area Calculated 1.92 m2 [id number] Temperature 97.8 f Comments: Method: Oral Pulse 76 /min Comments: Pattern: Regular Respiration Rate 18 /min Comments: Pattern: Unlabored BP Systolic 140 mm[Hg] Comments: Patient Position: Sitting; Cuff Location: Left Arm; Cuff Size: Standard BP Diastolic 70 mm[Hg] Comments: Patient Position: Sitting; Cuff Location: Left Arm; Cuff Size: Standard Weight 209 lb Height 61 in Body Mass Index Calculated 39.49 kg/m2 Body Surface Area Calculated 1.92 m2 :51 Temperature 98.4 f Comments: Method: Oral Pulse 70 /min Comments: Pattern: Regular Respiration Rate 19 /min O2 SAT 97 % Comments: Room air BP Systolic 134 mm[Hg] Comments: Patient Position: Sitting; Cuff Location: Left Arm; Cuff Size: Standard BP Diastolic 64 mm[Hg] Comments: Patient Position: Sitting; Cuff Location: Left Arm; Cuff Size: Standard Weight 213 lb Height 61 in Body Mass Index Calculated 40.25 kg/m2 Body Surface Area Calculated 1.94 m2 :34 Temperature 97.6 f Comments: Method: Oral Pulse 64 /min Comments: Pattern: Regular Respiration Rate 20 /min Comments: Pattern: Unlabored BP Systolic 126 mm[Hg] Comments: Patient Position: Sitting; Cuff Location: Left Arm; Cuff Size: Standard BP Diastolic 68 mm[Hg] Comments: Patient Position: Sitting; Cuff Location: Left Arm; Cuff Size: Standard Weight 213 lb Height 64 in Body Mass Index Calculated 36.56 kg/m2 Body Surface Area Calculated 2.01 m2 :25 Temperature 98 f Comments: Method: Oral Pulse 60 /min Comments: Pattern: Regular Respiration Rate 20 /min Comments: Pattern: Unlabored BP Systolic 140 mm[Hg] Comments: Patient Position: Sitting; Cuff Location: Left Arm; Cuff Size: Standard BP Diastolic 60 mm[Hg] Comments: Patient Position: Sitting; Cuff Location: Left Arm; Cuff Size: Standard Weight 213 lb Height 64 in Body Mass Index Calculated 36.56 kg/m2 Body Surface Area Calculated 2.01 m2 :48 Temperature 97.9 f Comments: Method: Oral Pulse 68 /min Comments: Pattern: Regular Respiration Rate 20 /min Comments: Pattern: Unlabored BP Systolic 110 mm[Hg] Comments: Patient Position: Sitting; Cuff Location: Left Arm; Cuff Size: Large BP Diastolic 70 mm[Hg] Comments: Patient Position: Sitting; Cuff Location: Left Arm; Cuff Size: Large Weight 210 lb Height 64 in Body Mass Index Calculated 36.05 kg/m2 Body Surface Area Calculated 2 m2 :42 Temperature 97.9 f Comments: Method: Oral Pulse 80 /min Comments: Pattern: Regular Respiration Rate 18 /min Comments: Pattern: Unlabored BP Systolic 144 mm[Hg] Comments: Patient Position: Sitting; Cuff Location: Left Arm; Cuff Size: Large BP Diastolic 64 mm[Hg] Comments: Patient Position: Sitting; Cuff Location: Left Arm; Cuff Size: Large Weight 215 lb Height 64 in Body Mass Index Calculated 36.9 kg/m2 Body Surface Area Calculated 2.02 m2 :52 Temperature 98 f Comments: Method: Oral Pulse 72 /min Comments: Pattern: Regular Respiration Rate 16 /min Comments: Pattern: Unlabored BP Systolic 122 mm[Hg] Comments: Patient Position: Sitting; Cuff Location: Left Arm; Cuff Size: Standard BP Diastolic 68 mm[Hg] Comments: Patient Position: Sitting; Cuff Location: Left Arm; Cuff Size: Standard Weight 212 lb Height 64 in Body Mass Index Calculated 36.39 kg/m2 Body Surface Area Calculated 2.01 m2 :17 Temperature 97.9 f Pulse 70 /min Comments: Pattern: Regular Respiration Rate 18 /min Comments: Pattern: Unlabored BP Systolic 138 mm[Hg] Comments: Patient Position: Sitting; Cuff Location: Left Arm; Cuff Size: Standard BP Diastolic 70 mm[Hg] Comments: Patient Position: Sitting; Cuff Location: Left Arm; Cuff Size: Standard Weight 212 lb Height 64 in Body Mass Index Calculated 36.39 kg/m2 Body Surface Area Calculated 2.01 m2 :24 Temperature 97.6 f Comments: Method: Oral Pulse 76 /min Comments: Pattern: Regular Respiration Rate 20 /min Comments: Pattern: Unlabored BP Systolic 120 mm[Hg] Comments: Patient Position: Sitting; Cuff Location: Left Arm; Cuff Size: Standard BP Diastolic 74 mm[Hg] Comments: Patient Position: Sitting; Cuff Location: Left Arm; Cuff Size: Standard Weight 212 lb Height 64 in Body Mass Index Calculated 36.39 kg/m2 Body Surface Area Calculated 2.01 m2 :01 Temperature 98.1 f Comments: Method: Oral Pulse 64 /min Comments: Pattern: Regular Respiration Rate 20 /min Comments: Pattern: Unlabored BP Systolic 118 mm[Hg] Comments: Patient Position: Sitting; Cuff Location: Left Arm; Cuff Size: Standard BP Diastolic 70 mm[Hg] Comments: Patient Position: Sitting; Cuff Location: Left Arm; Cuff Size: Standard Weight 212 lb Height 64 in Body Mass Index Calculated 36.39 kg/m2 Body Surface Area Calculated 2.01 m2 :40 Temperature 97.9 f Comments: Method: Oral Pulse 70 /min Comments: Pattern: Regular Respiration Rate 20 /min Comments: Pattern: Unlabored BP Systolic 120 mm[Hg] Comments: Patient Position: Sitting; Cuff Location: Left Arm; Cuff Size: Standard BP Diastolic 70 mm[Hg] Comments: Patient Position: Sitting; Cuff Location: Left Arm; Cuff Size: Standard Weight 209 lb Height 64 in Body Mass Index Calculated 35.87 kg/m2 Body Surface Area Calculated 1.99 m2 :51 Temperature 97.9 f Comments: Method: Oral Pulse 68 /min Comments: Pattern: Regular Respiration Rate 18 /min Comments: Pattern: Unlabored BP Systolic 118 mm[Hg] Comments: Patient Position: Sitting; Cuff Location: Left Arm; Cuff Size: Standard BP Diastolic 64 mm[Hg] Comments: Patient Position: Sitting; Cuff Location: Left Arm; Cuff Size: Standard Weight 209 lb Height 64 in Body Mass Index Calculated 35.87 kg/m2 Body Surface Area Calculated 1.99 m2 :06 Temperature 97.6 f Comments: Method: Oral Pulse 64 /min Comments: Pattern: Regular Respiration Rate 20 /min Comments: Pattern: Unlabored BP Systolic 102 mm[Hg] Comments: Patient Position: Sitting; Cuff Location: Left Arm; Cuff Size: Large BP Diastolic 60 mm[Hg] Comments: Patient Position: Sitting; Cuff Location: Left Arm; Cuff Size: Large Weight 209 lb Height 64 in Body Mass Index Calculated 35.87 kg/m2 Body Surface Area Calculated 1.99 m2 :22 Temperature 97.7 f Comments: Method: Oral Pulse 68 /min Comments: Pattern: Regular Respiration Rate 20 /min Comments: Pattern: Unlabored BP Systolic 122 mm[Hg] Comments: Patient Position: Sitting; Cuff Location: Left Arm; Cuff Size: Standard BP Diastolic 76 mm[Hg] Comments: Patient Position: Sitting; Cuff Location: Left Arm; Cuff Size: Standard Weight 209 lb Height 61 in Body Mass Index Calculated 39.49 kg/m2 Body Surface Area Calculated 1.92 m2 :32 Temperature 97.6 f Comments: Method: Oral Pulse 64 /min Comments: Pattern: Regular Respiration Rate 20 /min Comments: Pattern: Unlabored BP Systolic 126 mm[Hg] Comments: Patient Position: Sitting; Cuff Location: Left Arm; Cuff Size: Large BP Diastolic 68 mm[Hg] Comments: Patient Position: Sitting; Cuff Location: Left Arm; Cuff Size: Large Weight 211 lb Height 61 in Body Mass Index Calculated 39.87 kg/m2 Body Surface Area Calculated 1.93 m2 :20 Temperature 97.5 f Comments: Method: Oral Pulse 60 /min Comments: Pattern: Regular Respiration Rate 16 /min Comments: Pattern: Unlabored BP Systolic 132 mm[Hg] Comments: Patient Position: Sitting; Cuff Location: Left Arm; Cuff Size: Standard BP Diastolic 70 mm[Hg] Comments: Patient Position: Sitting; Cuff Location: Left Arm; Cuff Size: Standard Weight 218 lb Height 61 in Body Mass Index Calculated 41.19 kg/m2 Body Surface Area Calculated 1.96 m2 :07 Temperature 97.3 f Comments: Method: Oral Pulse 60 /min Comments: Pattern: Regular Respiration Rate 20 /min Comments: Pattern: Unlabored BP Systolic 124 mm[Hg] Comments: Patient Position: Sitting; Cuff Location: Left Arm; Cuff Size: Large BP Diastolic 68 mm[Hg] Comments: Patient Position: Sitting; Cuff Location: Left Arm; Cuff Size: Large Weight 218 lb Height 61 in Body Mass Index Calculated 41.19 kg/m2 Body Surface Area Calculated 1.96 m2 :51 Pulse 64 /min Comments: Pattern: Regular Respiration Rate 18 /min Comments: Pattern: Unlabored BP Systolic 132 mm[Hg] Comments: Patient Position: Sitting; Cuff Location: Left Arm; Cuff Size: Standard BP Diastolic 60 mm[Hg] Comments: Patient Position: Sitting; Cuff Location: Left Arm; Cuff Size: Standard Weight 215.125 lb :56 Temperature 96.7 f Comments: Method: Oral Pulse 62 /min Comments: Pattern: Regular Respiration Rate 16 /min Comments: Pattern: Unlabored BP Systolic 132 mm[Hg] Comments: Patient Position: Sitting; Cuff Location: Left Arm; Cuff Size: Standard BP Diastolic 68 mm[Hg] Comments: Patient Position: Sitting; Cuff Location: Left Arm; Cuff Size: Standard Weight 223 lb Height 61 in Body Mass Index Calculated 42.14 kg/m2 Body Surface Area Calculated 1.98 m2 :55 Pulse 72 /min Comments: Pattern: Regular Respiration Rate 20 /min Comments: Pattern: Unlabored BP Systolic 142 mm[Hg] Comments: Patient Position: Sitting; Cuff Location: Left Arm; Cuff Size: Large BP Diastolic 78 mm[Hg] Comments: Patient Position: Sitting; Cuff Location: Left Arm; Cuff Size: Large Weight 223 lb Height 61 in Body Mass Index Calculated 42.14 kg/m2 Body Surface Area Calculated 1.98 m2 Head Circumference 0.00 cm :29 Temperature 97.9 f Comments: Method: Oral Pulse 64 /min Comments: Pattern: Regular Respiration Rate 18 /min Comments: Pattern: Unlabored BP Systolic 118 mm[Hg] Comments: Patient Position: Sitting; Cuff Location: Left Arm; Cuff Size: Large BP Diastolic 68 mm[Hg] Comments: Patient Position: Sitting; Cuff Location: Left Arm; Cuff Size: Large Weight 0 lb Height 0 in Head Circumference 0.00 cm :53 Pulse 60 /min Comments: Pattern: Regular Respiration Rate 16 /min Comments: Pattern: Unlabored BP Systolic 124 mm[Hg] Comments: Patient Position: Sitting; Cuff Location: Left Arm; Cuff Size: Large BP Diastolic 68 mm[Hg] Comments: Patient Position: Sitting; Cuff Location: Left Arm; Cuff Size: Large Weight 223 lb Height 61 in Body Mass Index Calculated 42.14 kg/m2 Body Surface Area Calculated 1.98 m2 Head Circumference 0.00 cm :22 Pulse 68 /min Comments: Pattern: Regular Respiration Rate 20 /min Comments: Pattern: Unlabored BP Systolic 128 mm[Hg] Comments: Patient Position: Sitting; Cuff Location: Left Arm; Cuff Size: Large BP Diastolic 64 mm[Hg] Comments: Patient Position: Sitting; Cuff Location: Left Arm; Cuff Size: Large Weight 225 lb Height 0 in Head Circumference 0.00 cm :30 Pulse 76 /min Comments: Pattern: Irregular Respiration Rate 16 /min Comments: Pattern: Unlabored BP Systolic 140 mm[Hg] Comments: Patient Position: Sitting; Cuff Location: Left Arm; Cuff Size: Large BP Diastolic 64 mm[Hg] Comments: Patient Position: Sitting; Cuff Location: Left Arm; Cuff Size: Large Weight 224 lb Height 0 in Head Circumference 0.00 cm :27 Temperature 98.4 f Comments: Method: Oral Pulse 68 /min Comments: Pattern: Regular Respiration Rate 18 /min Comments: Pattern: Unlabored BP Systolic 102 mm[Hg] Comments: Patient Position: Sitting; Cuff Location: Left Arm; Cuff Size: Standard BP Diastolic 62 mm[Hg] Comments: Patient Position: Sitting; Cuff Location: Left Arm; Cuff Size: Standard Weight 218 lb Height 0 in Head Circumference 0.00 cm :07 Temperature 98.2 f Comments: Method: Oral Pulse 68 /min Comments: Pattern: Regular Respiration Rate 18 /min Comments: Pattern: Unlabored BP Systolic 126 mm[Hg] Comments: Patient Position: Sitting; Cuff Location: Left Arm; Cuff Size: Standard BP Diastolic 60 mm[Hg] Comments: Patient Position: Sitting; Cuff Location: Left Arm; Cuff Size: Standard Weight 220 lb Height 0 in Head Circumference 0.00 cm :27 Temperature 97.1 f Comments: Method: Oral Pulse 82 /min Comments: Pattern: Regular BP Systolic 126 mm[Hg] Comments: Patient Position: Sitting; Cuff Location: Undefined; Cuff Size: Undefined BP Diastolic 50 mm[Hg] Comments: Patient Position: Sitting; Cuff Location: Undefined; Cuff Size: Undefined Weight 0 lb Height 0 in Head Circumference 0.00 cm :02 Temperature 98.2 f Comments: Method: Oral Pulse 72 /min Comments: Pattern: Regular Respiration Rate 18 /min Comments: Pattern: Unlabored BP Systolic 132 mm[Hg] Comments: Patient Position: Sitting; Cuff Location: Left Arm; Cuff Size: Large BP Diastolic 64 mm[Hg] Comments: Patient Position: Sitting; Cuff Location: Left Arm; Cuff Size: Large Weight 0 lb Height 0 in Head Circumference 0.00 cm :56 Temperature 97.6 f Comments: Method: Oral Pulse 70 /min Comments: Pattern: Regular Respiration Rate 20 /min Comments: Pattern: Unlabored BP Systolic 118 mm[Hg] Comments: Patient Position: Sitting; Cuff Location: Left Arm; Cuff Size: Standard BP Diastolic 62 mm[Hg] Comments: Patient Position: Sitting; Cuff Location: Left Arm; Cuff Size: Standard Weight 241 lb Height 0 in Head Circumference 0.00 cm :41 Temperature 97.7 f Comments: Method: Oral Pulse 88 /min Comments: Pattern: Regular Respiration Rate 20 /min Comments: Pattern: Unlabored BP Systolic 138 mm[Hg] Comments: Patient Position: Sitting; Cuff Location: Left Arm; Cuff Size: Standard BP Diastolic 60 mm[Hg] Comments: Patient Position: Sitting; Cuff Location: Left Arm; Cuff Size: Standard Weight 0 lb Height 0 in Head Circumference 0.00 cm :57 Temperature 98.4 f Comments: Method: Oral Pulse 76 /min Comments: Pattern: Regular Respiration Rate 20 /min Comments: Pattern: Unlabored BP Systolic 120 mm[Hg] Comments: Patient Position: Sitting; Cuff Location: Left Arm; Cuff Size: Standard BP Diastolic 72 mm[Hg] Comments: Patient Position: Sitting; Cuff Location: Left Arm; Cuff Size: Standard Weight 239 lb Height 0 in Head Circumference 0.00 cm :33 Temperature 97.6 f Comments: Method: Oral Pulse 78 /min Comments: Pattern: Regular Respiration Rate 20 /min Comments: Pattern: Unlabored BP Systolic 126 mm[Hg] Comments: Patient Position: Sitting; Cuff Location: Left Arm; Cuff Size: Standard BP Diastolic 64 mm[Hg] Comments: Patient Position: Sitting; Cuff Location: Left Arm; Cuff Size: Standard Weight 236 lb Height 0 in Head Circumference 0.00 cm :03 Temperature 97.6 f Comments: Method: Oral Pulse 74 /min Comments: Pattern: Regular Respiration Rate 17 /min Comments: Pattern: Unlabored BP Systolic 122 mm[Hg] Comments: Patient Position: Sitting; Cuff Location: Left Arm; Cuff Size: Standard BP Diastolic 60 mm[Hg] Comments: Patient Position: Sitting; Cuff Location: Left Arm; Cuff Size: Standard Weight 239.25 lb Height 60 in Body Mass Index Calculated 46.72 kg/m2 Body Surface Area Calculated 2.01 m2 Head Circumference 0.00 cm :13 Pulse 80 /min Comments: Pattern: Regular Respiration Rate 16 /min Comments: Pattern: Unlabored BP Systolic 124 mm[Hg] Comments: Patient Position: Sitting; Cuff Location: Left Arm; Cuff Size: Large BP Diastolic 60 mm[Hg] Comments: Patient Position: Sitting; Cuff Location: Left Arm; Cuff Size: Large Weight 239.25 lb Height 60 in Body Mass Index Calculated 46.72 kg/m2 Body Surface Area Calculated 2.01 m2 Head Circumference 0.00 cm Results Date Description Value Details 76-Bwa-[id number] MICROALBUMIN: CREATININE RATIO Comments: PATIENT WAS FASTINGPERFORMED BY: [facility]6370 [facility] [id number] ([id number]) AND (12413) Alb/Creat Ratio 6.6 {mg/g_creat} (Normal) Range: 0.0-30.0 Albumin, Urine 3.5 ug/mL (Normal) Creatinine, Urine 53.0 mg/dL (Normal) 13-Rde-528176:39 TSH (44410) Comments: PATIENT WAS FASTINGPERFORMED BY: [facility]CoM[facility] HospitalOtmdgt9282 [facility] [id number] TSH 1.080 {uIU/mL} (Normal) Range: 0.450-4.500 62-Brr-467038:39 CBC, Platelets & Auto Diff Comments: PATIENT WAS FASTINGPERFORMED BY: [facility]6370 [facility] [id number] ([id number]) Immature Grans (Abs) 0.0 {x10E3/uL} (Normal) Range: 0.0-0.1 Immature Granulocytes 0 % (Normal) Baso (Absolute) 0.0 {x10E3/uL} (Normal) Range: 0.0-0.2 Eos (Absolute) 0.1 {x10E3/uL} (Normal) Range: 0.0-0.4 Monocytes(Absolute) 0.6 {x10E3/uL} (Normal) Range: 0.1-0.9 Lymphs (Absolute) 2.5 {x10E3/uL} (Normal) Range: 0.7-3.1 Neutrophils (Absolute) 3.0 {x10E3/uL} (Normal) Range: 1.4-7.0 Basos 0 % (Normal) Eos 1 % (Normal) Monocytes 9 % (Normal) Lymphs 41 % (Normal) Neutrophils 49 % (Normal) Platelets 169 {x10E3/uL} (Normal) Range: 150-379 RDW 13.6 % (Normal) Range: 12.3-15.4 MCHC 32.9 g/dL (Normal) Range: 31.5-35.7 MCH 31.4 pg (Normal) Range: 26.6-33.0 MCV 96 fL (Normal) Range: 79-97 Hematocrit 40.1 % (Normal) Range: 34.0-46.6 Hemoglobin 13.2 g/dL (Normal) Range: 11.1-15.9 RBC 4.20 {x10E6/uL} (Normal) Range: 3.77-5.28 WBC 6.2 {x10E3/uL} (Normal) Range: 3.4-10.8 74-Msv-520872:39 Metabolic Panel, Comprehensive Comments: PATIENT WAS FASTINGPERFORMED BY: LILIANA Meet[employer]70 [facility] [id number] ([id number]) ALT (SGPT) 12 [iU]/L (Normal) Range: 0-32 AST (SGOT) 20 [iU]/L (Normal) Range: 0-40 Alkaline Phosphatase 53 [iU]/L (Normal) Range: 39-117 Bilirubin, Total 0.8 mg/dL (Normal) Range: 0.0-1.2 A/G Ratio 1.4 (Normal) Range: 1.2-2.2 Globulin, Total 2.8 g/dL (Normal) Range: 1.5-4.5 Albumin 3.9 g/dL (Normal) Range: 3.5-4.8 Protein, Total 6.7 g/dL (Normal) Range: 6.0-8.5 Calcium 9.7 mg/dL (Normal) Range: 8.7-10.3 Carbon Dioxide, Total 25 mmol/L (Normal) Range: 20-29 Chloride 104 mmol/L (Normal) Range: 96-106 Potassium 4.6 mmol/L (Normal) Range: 3.5-5.2 Sodium 142 mmol/L (Normal) Range: 134-144 BUN/Creatinine Ratio 25 (Normal) Range: 12-28 eGFR If Africn Am 73 mL/min/1.73 (Normal) eGFR If NonAfricn Am 63 mL/min/1.73 (Normal) Creatinine 0.88 mg/dL (Normal) Range: 0.57-1.00 BUN 22 mg/dL (Normal) Range: 8-27 Glucose 88 mg/dL (Normal) Range: 65-99 68-Arl-058359:39 LIPID PANEL (18338) Comments: PATIENT WAS FASTINGPERFORMED BY: LILIANA PharmatrophiX RoadDublin [place] [id number] LDL/HDL Ratio 1.1 {ratio} (Normal) Range: 0.0-3.2 Comments: LDL/HDL Ratio Men Women 1/2 Avg.Risk 1.0 1.5 Av g.Risk 3.6 3.2 2X Avg.Risk 6.2 5.0 3X Avg.Risk 8.0 6.1 LDL Cholesterol Calc 82 mg/dL (Normal) Range: 0-99 VLDL Cholesterol Jessica 12 mg/dL (Normal) Range: 5-40 HDL Cholesterol 77 mg/dL (Normal) Triglycerides 62 mg/dL (Normal) Range: 0-149 Cholesterol, Total 171 mg/dL (Normal) Range: 100-199 5-Cyu-940596:16 Basic Metabolic Panel (8) Comments: PATIENT NOT FASTINGPERFORMED BY: [employer] [facility] HoldingsD[facility] Health [id number] Calcium 9.8 mg/dL (Normal) Range: 8.7-10.3 Carbon Dioxide, Total 24 mmol/L (Normal) Range: 18-29 Comments: Effective November 13, 2017 Carbon Dioxide, Total reference interval will be changing to: Age Male Female 0 days - 30 days 16 - 29 16 - 29 31 days - 1 year 15 - 25 15 - 25 2 years - 5 years 17 - 26 17 - 26 6 y ears - 12 years 19 - 27 19 - 27 >12 years 20 - 29 20 - 29 Chloride 102 mmol/L (Normal) Range: 96-106 Potassium 4.8 mmol/L (Normal) Range: 3.5-5.2 Sodium 141 mmol/L (Normal) Range: 134-144 BUN/Creatinine Ratio 18 (Normal) Range: 12-28 eGFR If Africn Am 86 mL/min/1.73 (Normal) eGFR If NonAfricn Am 74 mL/min/1.73 (Normal) Creatinine 0.77 mg/dL (Normal) Range: 0.57-1.00 BUN 14 mg/dL (Normal) Range: 8-27 Glucose 76 mg/dL (Normal) Range: 65-99 2-Ehu-589480:16 CBC With Differential/Platelet Comments: PATIENT NOT FASTINGPERFORMED BY: Meetapp70 [facility] [id number] Immature Grans (Abs) 0.0 {x10E3/uL} (Normal) Range: 0.0-0.1 Immature Granulocytes 0 % (Normal) Baso (Absolute) 0.0 {x10E3/uL} (Normal) Range: 0.0-0.2 Eos (Absolute) 0.1 {x10E3/uL} (Normal) Range: 0.0-0.4 Monocytes(Absolute) 0.5 {x10E3/uL} (Normal) Range: 0.1-0.9 Lymphs (Absolute) 2.9 {x10E3/uL} (Normal) Range: 0.7-3.1 Neutrophils (Absolute) 3.0 {x10E3/uL} (Normal) Range: 1.4-7.0 Basos 1 % (Normal) Eos 1 % (Normal) Monocytes 7 % (Normal) Lymphs 45 % (Normal) Neutrophils 46 % (Normal) Platelets 188 {x10E3/uL} (Normal) Range: 150-379 RDW 13.2 % (Normal) Range: 12.3-15.4 MCHC 34.0 g/dL (Normal) Range: 31.5-35.7 MCH 31.8 pg (Normal) Range: 26.6-33.0 MCV 93 fL (Normal) Range: 79-97 Hematocrit 38.5 % (Normal) Range: 34.0-46.6 Hemoglobin 13.1 g/dL (Normal) Range: 11.1-15.9 RBC 4.12 {x10E6/uL} (Normal) Range: 3.77-5.28 WBC 6.5 {x10E3/uL} (Normal) Range: 3.4-10.8 6-Fzn-871254:18 FECAL OCCULT- Tubes sent home (75491) FECAL OCCULT HGB ASSAY, QUAL, 1-3 SIMULTANEOU negative (Normal) 1-Uwv-321962:56 HgA1C , Office (22130) HgA1C , Office 5.2 % (Normal) Range: 4.6 - 7.1 :56 Blood Glucose , Office (12985) Blood Glucose , Office 81 (Normal) 99-Iyy-745525:28 VITAMIN B12 AND FOLATES Comments: PATIENT WAS FASTINGPERFORMED BY: [place] 7200370 [facility] [id number] ([id number]) Folate (Folic Acid), Serum >20.0 ng/mL (Normal) Comments: A serum folate concentration of less than 3.1 ng/mL isconsidered to represent clinical deficiency. Vitamin B12 171 pg/mL (Abnormal) Range: 232-1245 87-Cgp-180752:28 CALCIFEDIOL (16198) Comments: PATIENT WAS FASTINGPERFORMED BY: [employer] Tzgdzg2921 [facility] [id number] Vitamin D, 25-Hydroxy 22.4 ng/mL (Abnormal) Range: 30.0-100.0 Comments: Vitamin D deficiency has been defined by the [place] of[place]icine and an Endocrine Society practice guideline as alevel of serum 25-OH vitamin D less than 20 ng/mL (1,2).The Endocrine Society went on to further define vitamin Dinsufficiency as a level between 21 and 29 ng/mL (2).1. IOM ([place] of Medicine). 2010. Dietary reference intakes for calcium and D. [place]: The National Academies Press.2. Tono MF, Jonatan NC, Fabiola HUANG, et al. Evaluation, treatment, and prevention of vitamin D deficiency: an Endocrine Society clinical practice guideline. JCEM. 2010; 96(7):1911-30. 42-Dow-380163:28 MICROALBUMIN: CREATININE RATIO Comments: PATIENT WAS FASTINGPERFORMED BY: [employer] Sujmjd4693 [facility] [id number] ([id number]) AND (76753) Alb/Creat Ratio <4.0 {mg/g_creat} (Normal) Range: 0.0-30.0 Albumin, Urine <3.0 ug/mL (Normal) Creatinine, Urine 74.9 mg/dL (Normal) 41-Kqs-175251:28 TSH (61103) Comments: PATIENT WAS FASTINGPERFORMED BY: [facility]CoM[facility] Rehabilitation HospitalBpvwgp0930 [facility] [id number] TSH 1.070 {uIU/mL} (Normal) Range: 0.450-4.500 74-Cez-588782:28 CBC, Platelets & Auto Diff Comments: PATIENT WAS FASTINGPERFORMED BY: [facility]6370 [facility] [id number] (97148) Immature Grans (Abs) 0.0 {x10E3/uL} (Normal) Range: 0.0-0.1 Immature Granulocytes 0 % (Normal) Baso (Absolute) 0.0 {x10E3/uL} (Normal) Range: 0.0-0.2 Eos (Absolute) 0.0 {x10E3/uL} (Normal) Range: 0.0-0.4 Monocytes(Absolute) 0.5 {x10E3/uL} (Normal) Range: 0.1-0.9 Lymphs (Absolute) 2.2 {x10E3/uL} (Normal) Range: 0.7-3.1 Neutrophils (Absolute) 2.7 {x10E3/uL} (Normal) Range: 1.4-7.0 Basos 0 % (Normal) Eos 1 % (Normal) Monocytes 10 % (Normal) Lymphs 40 % (Normal) Neutrophils 49 % (Normal) Platelets 207 {x10E3/uL} (Normal) Range: 150-379 RDW 13.5 % (Normal) Range: 12.3-15.4 MCHC 33.0 g/dL (Normal) Range: 31.5-35.7 MCH 31.2 pg (Normal) Range: 26.6-33.0 MCV 95 fL (Normal) Range: 79-97 Hematocrit 39.1 % (Normal) Range: 34.0-46.6 Hemoglobin 12.9 g/dL (Normal) Range: 11.1-15.9 RBC 4.13 {x10E6/uL} (Normal) Range: 3.77-5.28 WBC 5.6 {x10E3/uL} (Normal) Range: 3.4-10.8 10-Ujj-794157:28 Metabolic Panel, Comprehensive Comments: PATIENT WAS FASTINGPERFORMED BY: [facility]6[address] [facility] [id number] (58835) ALT (SGPT) 16 [iU]/L (Normal) Range: 0-32 AST (SGOT) 49 [iU]/L (Abnormal) Range: 0-40 Alkaline Phosphatase, S 65 [iU]/L (Normal) Range: 39-117 Bilirubin, Total 0.7 mg/dL (Normal) Range: 0.0-1.2 A/G Ratio 1.4 (Normal) Range: 1.2-2.2 Globulin, Total 2.9 g/dL (Normal) Range: 1.5-4.5 Albumin, Serum 4.1 g/dL (Normal) Range: 3.5-4.8 Protein, Total, Serum 7.0 g/dL (Normal) Range: 6.0-8.5 Calcium, Serum 9.8 mg/dL (Normal) Range: 8.7-10.3 Carbon Dioxide, Total 24 mmol/L (Normal) Range: 18-29 Chloride, Serum 102 mmol/L (Normal) Range: 96-106 Potassium, Serum 4.6 mmol/L (Normal) Range: 3.5-5.2 Sodium, Serum 142 mmol/L (Normal) Range: 134-144 BUN/Creatinine Ratio 17 (Normal) Range: 12-28 eGFR If Africn Am 79 mL/min/1.73 (Normal) eGFR If NonAfricn Am 69 mL/min/1.73 (Normal) Creatinine, Serum 0.82 mg/dL (Normal) Range: 0.57-1.00 BUN 14 mg/dL (Normal) Range: 8-27 Glucose, Serum 82 mg/dL (Normal) Range: 65-99 85-Frl-268736:28 Lipid Panel (25946) Comments: PATIENT WAS FASTINGPERFORMED BY: [facility]Co[facility] HospitalNudwhb9477 [facility] [id number] LDL/HDL Ratio 1.3 {ratio_units} (Normal) Range: 0.0-3.2 Comments: LDL/HDL Ratio Men Women 1/2 Avg.Risk 1.0 1.5 Av g.Risk 3.6 3.2 2X Avg.Risk 6.2 5.0 3X Avg.Risk 8.0 6.1 LDL Cholesterol Calc 101 mg/dL (Abnormal) Range: 0-99 VLDL Cholesterol Jessica 11 mg/dL (Normal) Range: 5-40 HDL Cholesterol 79 mg/dL (Normal) Triglycerides 53 mg/dL (Normal) Range: 0-149 Cholesterol, Total 191 mg/dL (Normal) Range: 100-199 79-Tpi-806262:55 Urinalysis, Office (18385) UA - LEUKOCYTE ESTERASE Small (Normal) UA - NITRITE Negative (Normal) URINE UROBILINGN HAIDER TIMED Normal mg/dL (Normal) UA - PROTEIN Negative mg/dL (Normal) UA - PH 6.0 (Normal) Comments: 5.5 UA - BLOOD non-hemolyzed trace (Normal) UA - SPECIFIC GRAVITY 1.015 (Normal) UA - KETONES Negative mg/dL (Normal) UA - BILIRUBIN Negative (Normal) UA - GLUCOSE Negative (Normal) :42 Blood Glucose , Office (27161) Comments: 91 Blood Glucose , Office 91 (Normal) :42 HgA1C , Office (50199) HgA1C , Office 5.1 % (Normal) Range: 4.6 - 7.1 :31 HgA1C , Office (56707) HgA1C , Office 5.2 % (Normal) Range: 4.6 - 7.1 :31 Blood Glucose , Office (35107) Blood Glucose , Office 78 (Normal) :13 Anaerobic & Aerobic Comments: PATIENT NOT FASTINGPERFORMED BY: [facility]CoM[facility] HospitalUqbwuo0618 [facility] [id number] Information: LEFT LEG SRC:FL Culture (20324) Antimicrobial MIHEAD (Normal) Comments: S = Susceptible; I = Intermediate; R = Resistant P = Positive; N = Negative MICS are expressed in micrograms per mL Antibiotic RSLT#1 RSLT#2 RS Susceptibility LT#3 RSLT#4Amikacin SAmpicillin/Sulbactam SCefepime SCefotaxime ICeftazidime ICeftriaxone SCiprofloxacin SGentamicin SLevofloxacin SMeropenem SPiperacillin ITobramycin STrimethoprim/Sulfa R Result 1 Acinetobacter lwoffii Comments: Heavy growth (Abnormal) Aerobic Culture Final report (Abnormal) Result 1 [id number] (Normal) Comments: No anaerobic growth in 72 hours. Anaerobic Culture Final report (Normal) :51 HgA1C , Office (62847) HgA1C , Office 5.2 % (Normal) Range: 4.6 - 7.1 :51 Blood Glucose , Office (54431) Blood Glucose , Office 83 (Normal) 82-Rky-775209:21 LIPID PANEL (36467) Comments: PATIENT WAS FASTINGPERFORMED BY: revoPT Ebjdkw3257 [facility] [id number] LDL/HDL Ratio 1.5 {ratio_units} (Normal) Range: 0.0-3.2 Comments: LDL/HDL Ratio Men Women 1/2 Avg.Risk 1.0 1.5 Av g.Risk 3.6 3.2 2X Avg.Risk 6.2 5.0 3X Avg.Risk 8.0 6.1 LDL Cholesterol Calc 88 mg/dL (Normal) Range: 0-99 VLDL Cholesterol Jessica 21 mg/dL (Normal) Range: 5-40 HDL Cholesterol 59 mg/dL (Normal) Triglycerides 106 mg/dL (Normal) Range: 0-149 Cholesterol, Total 168 mg/dL (Normal) Range: 100-199 86-Bfl-415920:21 CBC, Platelets & Auto Diff Comments: PATIENT WAS FASTINGPERFORMED BY: [employer]6370 [facility] [id number] (25042) Immature Grans (Abs) 0.0 {x10E3/uL} (Normal) Range: 0.0-0.1 Immature Granulocytes 0 % (Normal) Baso (Absolute) 0.0 {x10E3/uL} (Normal) Range: 0.0-0.2 Eos (Absolute) 0.1 {x10E3/uL} (Normal) Range: 0.0-0.4 Monocytes(Absolute) 0.7 {x10E3/uL} (Normal) Range: 0.1-0.9 Lymphs (Absolute) 2.9 {x10E3/uL} (Normal) Range: 0.7-3.1 Neutrophils (Absolute) 2.4 {x10E3/uL} (Normal) Range: 1.4-7.0 Basos 0 % (Normal) Eos 1 % (Normal) Monocytes 12 % (Normal) Lymphs 48 % (Normal) Neutrophils 39 % (Normal) Platelets 177 {x10E3/uL} (Normal) Range: 150-379 RDW 13.4 % (Normal) Range: 12.3-15.4 MCHC 32.0 g/dL (Normal) Range: 31.5-35.7 MCH 30.0 pg (Normal) Range: 26.6-33.0 MCV 94 fL (Normal) Range: 79-97 Hematocrit 37.8 % (Normal) Range: 34.0-46.6 Hemoglobin 12.1 g/dL (Normal) Range: 11.1-15.9 RBC 4.03 {x10E6/uL} (Normal) Range: 3.77-5.28 WBC 6.0 {x10E3/uL} (Normal) Range: 3.4-10.8 49-Iim-341925:21 Metabolic Panel, Comprehensive Comments: PATIENT WAS FASTINGPERFORMED BY: [facility]CoM[facility] HospitalGloein1845 [facility] [id number]; OV 11/28 (02819) ALT (SGPT) 8 [iU]/L (Normal) Range: 0-32 AST (SGOT) 21 [iU]/L (Normal) Range: 0-40 Alkaline Phosphatase, S 56 [iU]/L (Normal) Range: 39-117 Bilirubin, Total 0.4 mg/dL (Normal) Range: 0.0-1.2 A/G Ratio 1.4 (Normal) Range: 1.2-2.2 Globulin, Total 2.8 g/dL (Normal) Range: 1.5-4.5 Albumin, Serum 3.8 g/dL (Normal) Range: 3.5-4.8 Protein, Total, Serum 6.6 g/dL (Normal) Range: 6.0-8.5 Calcium, Serum 9.7 mg/dL (Normal) Range: 8.7-10.3 Carbon Dioxide, Total 25 mmol/L (Normal) Range: 18-29 Chloride, Serum 103 mmol/L (Normal) Range: 96-106 Potassium, Serum 4.9 mmol/L (Normal) Range: 3.5-5.2 Sodium, Serum 145 mmol/L (Abnormal) Range: 134-144 BUN/Creatinine Ratio 17 (Normal) Range: 12-28 eGFR If Africn Am 93 mL/min/1.73 (Normal) eGFR If NonAfricn Am 81 mL/min/1.73 (Normal) Creatinine, Serum 0.72 mg/dL (Normal) Range: 0.57-1.00 BUN 12 mg/dL (Normal) Range: 8-27 Glucose, Serum 73 mg/dL (Normal) Range: 65-99 :21 TSH (62913) Comments: PATIENT WAS FASTINGPERFORMED BY: revoPT Xfsora3991 [facility] [id number] TSH 0.748 {uIU/mL} (Normal) Range: 0.450-4.500 :33 HgA1C , Office (63372) HgA1C , Office 5.4 % (Normal) Range: 4.6 - 7.1 :33 Blood Glucose , Office (21491) Blood Glucose , Office 76 (Normal) 1-Qyc-640285:20 Microscopic Examination Comments: PATIENT WAS FASTINGPERFORMED BY: revoPT Oqndgj2102 [facility] [id number] Bacteria Few (Normal) Mucus Threads Present (Normal) Epithelial Cells (non renal) 0-10 {/hpf} (Normal) Range: 0 - 10 RBC 0-2 {/hpf} (Normal) Range: 0 - 2 WBC 11-30 {/hpf} (Abnormal) Range: 0 - 5 6-Wqn-436536:20 MICROALBUMIN: CREATININE RATIO Comments: PATIENT WAS FASTINGPERFORMED BY: revoPT Gfbdjo3107 [facility] [id number] (77903) AND (00747) Microalb/Creat Ratio 16.3 {mg/g_creat} (Normal) Range: 0.0-30.0 Microalbumin, Urine 21.2 ug/mL (Normal) Creatinine, Urine 130.4 mg/dL (Normal) 8-Wzr-566519:20 URINALYSIS (14748) Comments: PATIENT WAS FASTINGPERFORMED BY: [employer] Hudqks6927 [facility] [id number] Microscopic Examination See below: (Normal) Comments: Microscopic was indicated and was performed. Nitrite, Urine Negative (Normal) Urobilinogen,Semi-Qn 0.2 mg/dL (Normal) Range: 0.2-1.0 Bilirubin Negative (Normal) Occult Blood Negative (Normal) Ketones Negative (Normal) Glucose Negative (Normal) Protein Negative (Normal) WBC Esterase 1+ (Abnormal) Appearance Clear (Normal) Urine-Color Yellow (Normal) pH 6.0 (Normal) Range: 5.0-7.5 Specific Robertson 1.022 (Normal) Range: 1.005-1.030 8-Wah-362729:20 Metabolic Panel, Comprehensive Comments: PATIENT WAS FASTINGPERFORMED BY: LILIANA [facility] Dpvkpw3843 [facility] [id number] (21002) ALT (SGPT) 9 [iU]/L (Normal) Range: 0-32 AST (SGOT) 16 [iU]/L (Normal) Range: 0-40 Alkaline Phosphatase, S 74 [iU]/L (Normal) Range: 39-117 Bilirubin, Total 0.4 mg/dL (Normal) Range: 0.0-1.2 A/G Ratio 1.6 (Normal) Range: 1.1-2.5 Globulin, Total 2.5 g/dL (Normal) Range: 1.5-4.5 Albumin, Serum 4.1 g/dL (Normal) Range: 3.5-4.8 Protein, Total, Serum 6.6 g/dL (Normal) Range: 6.0-8.5 Calcium, Serum 9.6 mg/dL (Normal) Range: 8.7-10.3 Carbon Dioxide, Total 25 mmol/L (Normal) Range: 18-29 Chloride, Serum 102 mmol/L (Normal) Range: 97-106 Comments: Effective May 16, 2016 the reference interval for Chloride, Serum will be changing to: 96 - 106 Potassium, Serum 4.4 mmol/L (Normal) Range: 3.5-5.2 Sodium, Serum 143 mmol/L (Normal) Range: 136-144 Comments: Effective May 16, 2016 the reference interval for Sodium, Serum will be changing to: 134 - 144 BUN/Creatinine Ratio 15 (Normal) Range: 11-26 eGFR If Africn Am 99 mL/min/1.73 (Normal) eGFR If NonAfricn Am 86 mL/min/1.73 (Normal) Creatinine, Serum 0.67 mg/dL (Normal) Range: 0.57-1.00 BUN 10 mg/dL (Normal) Range: 8-27 Glucose, Serum 80 mg/dL (Normal) Range: 65-99 0-Mdt-495609:20 Lipid Panel (16288) Comments: PATIENT WAS FASTINGPERFORMED BY: LILIANA LabCoM[facility] HospitalJtmfrk2637 [facility] [id number] LDL/HDL Ratio 1.4 {ratio_units} (Normal) Range: 0.0-3.2 Comments: LDL/HDL Ratio Men Women 1/2 Avg.Risk 1.0 1.5 Av g.Risk 3.6 3.2 2X Avg.Risk 6.2 5.0 3X Avg.Risk 8.0 6.1 LDL Cholesterol Calc 98 mg/dL (Normal) Range: 0-99 VLDL Cholesterol Jessica 19 mg/dL (Normal) Range: 5-40 HDL Cholesterol 70 mg/dL (Normal) Triglycerides 95 mg/dL (Normal) Range: 0-149 Cholesterol, Total 187 mg/dL (Normal) Range: 100-199 8-Nmx-826449:20 CBC, Platelets & Auto Diff Comments: PATIENT WAS FASTINGPERFORMED BY: [employer]6370 [facility] [id number] (14588) Immature Grans (Abs) 0.0 {x10E3/uL} (Normal) Range: 0.0-0.1 Immature Granulocytes 0 % (Normal) Baso (Absolute) 0.0 {x10E3/uL} (Normal) Range: 0.0-0.2 Eos (Absolute) 0.1 {x10E3/uL} (Normal) Range: 0.0-0.4 Monocytes(Absolute) 0.5 {x10E3/uL} (Normal) Range: 0.1-0.9 Lymphs (Absolute) 2.4 {x10E3/uL} (Normal) Range: 0.7-3.1 Neutrophils (Absolute) 2.4 {x10E3/uL} (Normal) Range: 1.4-7.0 Basos 1 % (Normal) Eos 2 % (Normal) Monocytes 9 % (Normal) Lymphs 43 % (Normal) Neutrophils 45 % (Normal) Platelets 250 {x10E3/uL} (Normal) Range: 150-379 RDW 13.0 % (Normal) Range: 12.3-15.4 MCHC 32.3 g/dL (Normal) Range: 31.5-35.7 MCH 30.6 pg (Normal) Range: 26.6-33.0 MCV 95 fL (Normal) Range: 79-97 Hematocrit 40.0 % (Normal) Range: 34.0-46.6 Hemoglobin 12.9 g/dL (Normal) Range: 11.1-15.9 RBC 4.21 {x10E6/uL} (Normal) Range: 3.77-5.28 WBC 5.4 {x10E3/uL} (Normal) Range: 3.4-10.8 :20 CALCIFEDIOL (58388) Comments: PATIENT WAS FASTINGPERFORMED BY: revoPTCarlsbad Medical CenterQrzacr1328 [facility] [id number] Vitamin D, 25-Hydroxy 30.8 ng/mL (Normal) Range: 30.0-100.0 Comments: Vitamin D deficiency has been defined by the [place] ofAdena Health Systemcine and an Endocrine Society practice guideline as alevel of serum 25-OH vitamin D less than 20 ng/mL (1,2).The Endocrine Society went on to further define vitamin Dinsufficiency as a level between 21 and 29 ng/mL (2).1. IOM ([place] of Medicine). 2010. Dietary reference intakes for calcium and D. [place]: The National Academies Press.2. Tono MF, Jonatan NC, Fabiola HUANG, et al. Evaluation, treatment, and prevention of vitamin D deficiency: an Endocrine Society clinical practice guideline. JCEM. 2010; 96(7):1911-30. :53 HgA1C , Office (08523) HgA1C , Office 5.3 % (Normal) Range: 4.6 - 7.1 :53 Blood Glucose , Office (48890) Blood Glucose , Office 79 (Normal) :38 HgA1C , Office (85120) HgA1C , Office 5.5 % (Normal) Range: 4.6 - 7.1 :02 PT (Prothrobim Time) Comments: so; PATIENT NOT FASTINGPERFORMED BY: GroupVoxAspirus [facility] Hospital6370 [facility] [id number] Information: [id number] (47047) Prothrombin Time 20.8 {sec} (Abnormal) Range: 9.1-12.0 INR 2.0 (Abnormal) Range: 0.8-1.2 Comments: Reference interval is for non-anticoagulated patients. . Suggested INR therapeutic range for Vitamin K anta gonist therapy: Standard Dose (moderate intensity therapeutic range): 2.0 - 3.0 Higher intensity therapeutic range 2.5 - 3.5 11-Yru-513832:07 CBC W/Diff, Automated Comments: [facility] Gdyzhpjdng[address] [place], [place], [id number] ; Dr oates Absolute Lymph 2.18 {X10_3/ul} (Normal) Range: 0.83-4.51 Absolute Neut 1.9 {X10_3/uL} (Abnormal) Range: 2.0-7.7 IM GRAN % 0.200 % (Normal) Range: 0.0-0.9 Comments: IG% - Immature Granulocytes (promyelocytes, myelocytes andmetamyelocytes) > 1% indicates that a LEFT SHIFT is Present. BASO% 0.2 % (Normal) Range: 0-1 EO% 13.6 % (Abnormal) Range: 0-5 MONO% 10.9 % (Abnormal) Range: 0-10 LY% 40.1 % (Normal) Range: 19-41 NEUT% 35.0 % (Abnormal) Range: 47-70 MPV 12.6 fL (Abnormal) Range: 6.2-12.0 PLT 165 K/mm3 (Normal) Range: 150-450 RDW SD 44.6 fL (Abnormal) Range: 35.1-43.9 RDW CV 13.5 % (Normal) Range: 11.6-14.6 MCHC 32.3 {g/gl} (Normal) Range: 32-36 MCH 29.4 pg (Normal) Range: 27.0-32.0 MCV 91.0 fL (Normal) Range: 81-99 HCT 40.2 % (Normal) Range: 37-47 HGB 13.0 g/dL (Normal) Range: 12.0-15.0 RBC 4.42 {M/mm3} (Normal) Range: 4.2-5.4 WBC 5.4 K/mm3 (Normal) Range: 4.4-11.0 :36 CREATININE CLEARANCE ([id number]) Comments: PATIENT NOT FASTINGPERFORMED BY: [facility] [facility] [id number] Creatinine Clearance 61 mL/min (Abnormal) Range: 88-128 Comments: The above range is based on 1.73 square meter average body surfacearea. Creatinine, Ur 24hr 575.7 {mg/24_hr} (Abnormal) Range: 800.0-1800.0 Creatinine, Urine 60.6 mg/dL (Normal) :36 Total Protein,24 Hour Urine Comments: PATIENT NOT FASTINGPERFORMED BY: [facility] [facility] [id number] ([id number]) Prot,24hr calculated 191.0 {mg/24_hr} (Abnormal) Range: 30.0-150.0 Protein,Total,Urine 20.1 mg/dL (Normal) :36 METABOLIC PANEL, COMPREHENSIVE Comments: PATIENT NOT FASTINGPERFORMED BY: [place] [id number] [facility] [id number] ([id number]) ALT (SGPT) 8 [iU]/L (Normal) Range: 0-32 AST (SGOT) 14 [iU]/L (Normal) Range: 0-40 Alkaline Phosphatase, S 64 [iU]/L (Normal) Range: 39-117 Bilirubin, Total 0.5 mg/dL (Normal) Range: 0.0-1.2 A/G Ratio 1.4 (Normal) Range: 1.1-2.5 Globulin, Total 2.7 g/dL (Normal) Range: 1.5-4.5 Albumin, Serum 3.9 g/dL (Normal) Range: 3.5-4.8 Protein, Total, Serum 6.6 g/dL (Normal) Range: 6.0-8.5 Calcium, Serum 9.8 mg/dL (Normal) Range: 8.7-10.3 Carbon Dioxide, Total 27 mmol/L (Normal) Range: 18-29 Chloride, Serum 102 mmol/L (Normal) Range: 97-108 Potassium, Serum 4.7 mmol/L (Normal) Range: 3.5-5.2 Sodium, Serum 143 mmol/L (Normal) Range: 134-144 BUN/Creatinine Ratio 12 (Normal) Range: 11-26 eGFR If Africn Am 99 mL/min/1.73 (Normal) eGFR If NonAfricn Am 86 mL/min/1.73 (Normal) Creatinine, Serum 0.66 mg/dL (Normal) Range: 0.57-1.00 BUN 8 mg/dL (Normal) Range: 8-27 Glucose, Serum 87 mg/dL (Normal) Range: 65-99 :36 CBC with auto diff Comments: PATIENT NOT FASTINGPERFORMED BY: [facility]Onfexw[facility] [facility] [id number] Information: [id number] ([id number]) Immature Grans (Abs) 0.0 {x10E3/uL} (Normal) Range: 0.0-0.1 Immature Granulocytes 0 % (Normal) Baso (Absolute) 0.0 {x10E3/uL} (Normal) Range: 0.0-0.2 Eos (Absolute) 0.4 {x10E3/uL} (Normal) Range: 0.0-0.4 Monocytes(Absolute) 0.7 {x10E3/uL} (Normal) Range: 0.1-0.9 Lymphs (Absolute) 2.0 {x10E3/uL} (Normal) Range: 0.7-3.1 Neutrophils (Absolute) 2.3 {x10E3/uL} (Normal) Range: 1.4-7.0 Basos 0 % (Normal) Eos 7 % (Normal) Monocytes 12 % (Normal) Lymphs 37 % (Normal) Neutrophils 44 % (Normal) Platelets 161 {x10E3/uL} (Normal) Range: 150-379 RDW 13.8 % (Normal) Range: 12.3-15.4 MCHC 31.8 g/dL (Normal) Range: 31.5-35.7 MCH 29.4 pg (Normal) Range: 26.6-33.0 MCV 93 fL (Normal) Range: 79-97 Hematocrit 40.0 % (Normal) Range: 34.0-46.6 Hemoglobin 12.7 g/dL (Normal) Range: 11.1-15.9 RBC 4.32 {x10E6/uL} (Normal) Range: 3.77-5.28 WBC 5.4 {x10E3/uL} (Normal) Range: 3.4-10.8 :44 HgA1C , Office (83384) HgA1C , Office 5.2 % (Normal) Range: 4.6 - 7.1 :14 HH, Hemoglobin AND Hematocrit Comments: [facility] [address] [place], [address] HCT 35.4 % (Abnormal) Range: 37-47 HGB 11.3 g/dL (Abnormal) Range: 12.0-15.0 03-Lfw-014585:25 Basic Metabolic Profile (BMP) Comments: 'TROP' Serial specimen #1, #2, #3, or #4: [facility] [address] [place], [address] GAP 3 (Abnormal) Range: 5-15 CO2 29.0 mmol/L (Normal) Range: 21.0-32.0 CL 108 mmol/L (Abnormal) Range: 98-107 K 3.9 mmol/L (Normal) Range: 3.5-5.1 NA 140 mmol/L (Normal) Range: 136-145 CA 9.0 mg/dL (Normal) Range: 8.5-10.1 BUN/CRE 13.1 {RATIO} (Normal) Range: 10-20 Estimated CRCL 60.66 ml/min (Normal) EST GFR - AA 94 mL/min (Normal) Comments: GFR Calc EST GFR 78 mL/min (Normal) Comments: Non- GFR Calc CREAT,SERUM 0.76 mg/dL (Normal) Range: 0.55-1.20 Comments: The validity of the calculated GFR AND GFRAA in patients over70 years has not been determined. Clinical correlation isessential. BUN 10 mg/dL (Normal) Range: 7-18 GLU 116 mg/dL (Abnormal) Range: 70-110 Comments: Fasting Glucose result from 110 to <126 mg/dLsuggests IMPAIRED HOMEOSTASIS per A.D.A. criteria. 93-Zlc-[id number]:25 CBC W/Diff, Automated Comments: [facility] [address] [place], [place], [id number] Absolute Lymph 2.14 {X10_3/ul} (Normal) Range: 0.83-4.51 Absolute Neut 2.8 {X10_3/uL} (Normal) Range: 2.0-7.7 IM GRAN % 0.200 % (Normal) Range: 0.0-0.9 Comments: IG% - Immature Granulocytes (promyelocytes, myelocytes andmetamyelocytes) > 1% indicates that a LEFT SHIFT is Present. BASO% 0.7 % (Normal) Range: 0-1 EO% 1.0 % (Normal) Range: 0-5 MONO% 11.5 % (Abnormal) Range: 0-10 LY% 37.3 % (Normal) Range: 19-41 NEUT% 49.3 % (Normal) Range: 47-70 MPV 10.3 fL (Normal) Range: 6.2-12.0 PLT 222 K/mm3 (Normal) Range: 150-450 RDW SD 53.9 fL (Abnormal) Range: 35.1-43.9 RDW CV 15.7 % (Abnormal) Range: 11.6-14.6 MCHC 31.9 {g/gl} (Abnormal) Range: 32-36 MCH 30.2 pg (Normal) Range: 27.0-32.0 MCV 94.7 fL (Normal) Range: 81-99 HCT 32.0 % (Abnormal) Range: 37-47 HGB 10.2 g/dL (Abnormal) Range: 12.0-15.0 RBC 3.38 {M/mm3} (Abnormal) Range: 4.2-5.4 WBC 5.7 K/mm3 (Normal) Range: 4.4-11.0 78-Wam-784981:25 Troponin-I Comments: 'TROP' Serial specimen #1, #2, #3, or #4: [address] [place] [address] [address] [place], [place], [id number] TROPONIN-I < 0.02 ng/mL (Normal) Comments: TROPONIN-I EXPECTED VALUES <0.05 NEGATIVE 0.06 - 0.59 AT RISK OF NC > OR = 0.60 SUGGEST NC 18-Cuw-754799:25 METABOLIC PANEL, COMPREHENSIVE Comments: PATIENT NOT FASTINGPERFORMED BY: [facility] HospitalSshvsd2811 [facility] [id number] ([id number]) ALT (SGPT) 11 [iU]/L (Normal) Range: 0-32 AST (SGOT) 22 [iU]/L (Normal) Range: 0-40 Alkaline Phosphatase, S 41 [iU]/L (Normal) Range: 39-117 Bilirubin, Total 0.4 mg/dL (Normal) Range: 0.0-1.2 A/G Ratio 1.5 (Normal) Range: 1.1-2.5 Globulin, Total 2.5 g/dL (Normal) Range: 1.5-4.5 Albumin, Serum 3.7 g/dL (Normal) Range: 3.5-4.8 Protein, Total, Serum 6.2 g/dL (Normal) Range: 6.0-8.5 Calcium, Serum 9.3 mg/dL (Normal) Range: 8.7-10.3 Carbon Dioxide, Total 21 mmol/L (Normal) Range: 18-29 Chloride, Serum 100 mmol/L (Normal) Range: 97-108 Potassium, Serum 4.5 mmol/L (Normal) Range: 3.5-5.2 Sodium, Serum 142 mmol/L (Normal) Range: 134-144 BUN/Creatinine Ratio 13 (Normal) Range: 11-26 eGFR If Africn Am 97 mL/min/1.73 (Normal) eGFR If NonAfricn Am 84 mL/min/1.73 (Normal) Creatinine, Serum 0.70 mg/dL (Normal) Range: 0.57-1.00 BUN 9 mg/dL (Normal) Range: 8-27 Glucose, Serum 83 mg/dL (Normal) Range: 65-99 Comments: Specimen received in contact with cells. No visible hemolysispresent. However GLUC may be decreased and K increased. Clinicalcorrelation indicated. 17-Emi-633829:25 CBC with auto diff Comments: PATIENT NOT FASTINGPERFORMED BY: [facility] Qwywgu9878 [facility] [id number] Information: [id number] ([id number]) Immature Grans (Abs) 0.0 {x10E3/uL} (Normal) Range: 0.0-0.1 Immature Granulocytes 0 % (Normal) Baso (Absolute) 0.0 {x10E3/uL} (Normal) Range: 0.0-0.2 Eos (Absolute) 0.1 {x10E3/uL} (Normal) Range: 0.0-0.4 Monocytes(Absolute) 0.7 {x10E3/uL} (Normal) Range: 0.1-0.9 Lymphs (Absolute) 1.9 {x10E3/uL} (Normal) Range: 0.7-3.1 Neutrophils (Absolute) 5.1 {x10E3/uL} (Normal) Range: 1.4-7.0 Basos 1 % (Normal) Eos 1 % (Normal) Monocytes 9 % (Normal) Lymphs 24 % (Normal) Neutrophils 65 % (Normal) Platelets 249 {x10E3/uL} (Normal) Range: 150-379 RDW 15.8 % (Abnormal) Range: 12.3-15.4 MCHC 32.2 g/dL (Normal) Range: 31.5-35.7 MCH 29.8 pg (Normal) Range: 26.6-33.0 MCV 93 fL (Normal) Range: 79-97 Hematocrit 31.1 % (Abnormal) Range: 34.0-46.6 Hemoglobin 10.0 g/dL (Abnormal) Range: 11.1-15.9 RBC 3.36 {x10E6/uL} (Abnormal) Range: 3.77-5.28 WBC 7.8 {x10E3/uL} (Normal) Range: 3.4-10.8 :11 HH, Hemoglobin AND Hematocrit Comments: [facility] [address] [place], [address] ; ordred by another doctor [facility] HCT 24.1 % (Abnormal) Range: 37-47 HGB 7.9 g/dL (Abnormal) Range: 12.0-15.0 :25 Urinalysis, Complete Comments: How was Urine Obtained? ARBORIST REPRESENTATIVE TO [facility] [address] [facility] [place], [address] MUCUS, URINE 0 SEEN {/hpf} (Normal) BACTERIA 0 SEEN {/hpf} (Normal) SQUAM EPI 0 SEEN {/hpf} (Normal) Range: 5-10 RBC-UA 0 SEEN {/hpf} (Normal) Range: 0-5 WBC 0-5 SEEN {/hpf} (Normal) Range: 0-5 LEUK ESTERASE 25 /ul (Abnormal) OCCULT BLOOD-UR 10 /ul (Abnormal) NITRITE UR Negative (Normal) UROBILI Normal mg/dL (Normal) PROT DIPSTX Negative mg/dL (Normal) pH UR 6.0 (Normal) Range: 5.0 - 8.0 SP.GR. DIPSTX 1.020 (Normal) Range: 1.002-1.030 KETONE UR 5 mg/dL (Abnormal) BILIRUBIN URINE Negative mg/dL (Normal) GLUCOSE, UR Normal mg/dL (Normal) CLARITY Clear (Normal) COLOR Yellow (Normal) :00 Amylase Comments: 'TROP' Serial specimen #1, #2, #3, or #4: [facility] Lcrwihiwit5586 [facility] [address] [place], [place], [phone] LENNY 29 U/L (Normal) Range: 25-115 : CBC W/Diff, Automated Comments: [facility] [address] [facility] [place], [place], [phone] Absolute Lymph 1.14 {X10_3/ul} (Normal) Range: 0.83-4.51 Absolute Neut 6.6 {X10_3/uL} (Normal) Range: 2.0-7.7 IM GRAN % 0.200 % (Normal) Range: 0.0-0.9 Comments: IG% - Immature Granulocytes (promyelocytes, myelocytes andmetamyelocytes) > 1% indicates that a LEFT SHIFT is Present. BASO% 0.0 % (Normal) Range: 0-1 EO% 0.0 % (Normal) Range: 0-5 MONO% 8.2 % (Normal) Range: 0-10 LY% 13.4 % (Abnormal) Range: 19-41 NEUT% 78.2 % (Abnormal) Range: 47-70 MPV 11.8 fL (Normal) Range: 6.2-12.0 PLT 159 K/mm3 (Normal) Range: 150-450 RDW SD 46.6 fL (Abnormal) Range: 35.1-43.9 RDW CV 13.9 % (Normal) Range: 11.6-14.6 MCHC 32.8 {g/gl} (Normal) Range: 32-36 MCH 31.8 pg (Normal) Range: 27.0-32.0 MCV 97.0 fL (Normal) Range: 81-99 HCT 29.0 % (Abnormal) Range: 37-47 HGB 9.5 g/dL (Abnormal) Range: 12.0-15.0 RBC 2.99 {M/mm3} (Abnormal) Range: 4.2-5.4 WBC 8.5 K/mm3 (Normal) Range: 4.4-11.0 12-Sep-20153:00 Comprehensive Metabolic Profil Comments: 'TROP' Serial specimen #1, #2, #3, or #4: 1[facility] [address] [place], [place], [id number] GAP 11 (Normal) Range: 5-15 CO2 22.0 mmol/L (Normal) Range: 21.0-32.0 CL 106 mmol/L (Normal) Range: 98-107 K 4.7 mmol/L (Normal) Range: 3.5-5.1 Comments: Slight Hemolysis, Result may be falsely increased. NA 139 mmol/L (Normal) Range: 136-145 T BILI 0.40 mg/dL (Normal) Range: 0.20-1.00 ALT 21 U/L (Normal) Range: 12-78 ALK P 34 U/L (Abnormal) Range: 50-136 AST 20 U/L (Normal) Range: 15-37 Comments: Slight Hemolysis, Result may be falsely increased. CA 8.3 mg/dL (Abnormal) Range: 8.5-10.1 A/G 0.9 {RATIO} (Normal) Range: 0.9-2.4 GLOB 3.0 g/dL (Normal) Range: 2.3-3.5 ALB 2.7 g/dL (Abnormal) Range: 3.4-5.0 T PROT 5.7 g/dL (Abnormal) Range: 6.4-8.2 BUN/CRE 70.1 {RATIO} (Abnormal) Range: 10-20 Estimated CRCL 63.80 ml/min (Normal) EST GFR - AA 74 mL/min (Normal) Comments: GFR Calc EST GFR 61 mL/min (Normal) Comments: Non- GFR Calc CREAT,SERUM 0.94 mg/dL (Normal) Range: 0.55-1.20 Comments: The validity of the calculated GFR AND GFRAA in patients over70 years has not been determined. Clinical correlation isessential. BUN 66 mg/dL (Abnormal) Range: 7-18 GLU 173 mg/dL (Abnormal) Range: 70-110 Comments: Fasting Glucose result greater than or equal to 126 mg/dLsuggests DIABETES MELLITUS per A.D.A. criteria. :00 Lactic Acid Comments: [facility] [address] [place], [address] LACTIC ACID 3.8 mmol/L (Abnormal) Range: 0.4-2.0 :00 Lipase Comments: 'TROP' Serial specimen #1, #2, #3, or #4: [address] [place] [address] [place], [place], [id number] LIPASE 84 U/L (Normal) Range: 73-393 :00 Partial Thromboplast Time Comments: [place] [address] [place], [place], [phone] PTT 30.2 s (Normal) Range: 24.1-36.2 :00 Prothrombin Time w/INR Comments: [place] [address] [place], [place], [phone] INR 3.7 (Abnormal) Comments: CRITICAL VALUE REPEATED AND VERIFIED. CALLED TO [place] [phone] Nia Delong.RESULTS READ BACK BY SAME . PROTIME 35.8 s (Abnormal) Range: 11.7-14.9 12-Sep-20153:00 Troponin-I Comments: 'TROP' Serial specimen #1, #2, #3, or #4: [address] [place] [address] [place], [place], [id number] TROPONIN-I 0.05 ng/mL (Normal) Comments: TROPONIN-I EXPECTED VALUES <0.05 NEGATIVE 0.06 - 0.59 AT RISK OF NC > OR = 0.60 SUGGEST NC 37-Whw-653272:09 INR Fingerstick Comments: [facility] LaboratoryPoint [facility] [address] [place], [place] [address] INR ISTAT 1.60 (Normal) Comments: Critical Value > 3.5 28-Alh-522704:09 Prothrombin Time Fingerstick Comments: [facility] [place] [address] [place] [address] PROTIME ISTAT 19.2 {SEC} (Abnormal) Range: 11.9-14.4 Comments: Reference Range 11.9 - 14.4 74-Lze-018541:23 URINE CAMERON CULTURE-IDENTIFICATN Comments: PATIENT NOT FASTINGPERFORMED BY: [facility]Co[facility] HospitalFzbtiw1683 [facility] [id number] Information: [id number] ([id number]) Result 1 BETAGB (Abnormal) Comments: Beta hemolytic Streptococcus, group B10,000- 25,000 colony forming units per mLPenicillin and ampicillin are drugs of choice for treatment ofbeta-hemolytic streptococcal infections. Susceptibility testin g ofpenicillins and other beta-lactam agents approved by the FDA fortreatment of beta-hemolytic streptococcal infections need not beperformed routinely because nonsusceptible isolates are extremelyrare in any beta-hemolytic streptococcus and have not been reportedfor Streptococcus pyogenes (group A). (CLSI 2011) Urine Final report (Abnormal) Culture,Comprehensive 58-Qlu-228763:05 Urinalysis, Office (67974) UA - LEUKOCYTE ESTERASE Small (Normal) UA - NITRITE Negative (Normal) URINE UROBILINGN HAIDER TIMED Normal mg/dL (Normal) UA - PROTEIN Negative mg/dL (Normal) UA - PH 7 (Normal) UA - BLOOD Hemolyzed Large (Normal) UA - SPECIFIC GRAVITY 1.010 (Normal) UA - KETONES Negative mg/dL (Normal) UA - BILIRUBIN Negative (Normal) UA - GLUCOSE Negative (Normal) 78-Glo-716127:22 INR Fingerstick Comments: [facility] [place] [address] [place], [place] [phone] INR ISTAT 2.70 (Normal) Comments: Critical Value > 3.5 87-Cae-140440:22 Prothrombin Time Fingerstick Comments: [facility] [place] [address] [place] [address]( PROTIME ISTAT 30.9 {SEC} (Abnormal) Range: 11.9-14.4 Comments: Reference Range 11.9 - 14.4 :37 INR Fingerstick Comments: [place] [address] [place] [address]( INR ISTAT 2.90 (Normal) Comments: Critical Value > 3.5 :37 Prothrombin Time Fingerstick Comments: [place] [address] [place] [address] PROTIME ISTAT 32.8 {SEC} (Abnormal) Range: 11.9-14.4 Comments: Reference Range 11.9 - 14.4 :41 INR Fingerstick Comments: [place] [address] [place] [address] INR ISTAT 2.50 (Normal) Comments: Critical Value > 3.5 :41 Prothrombin Time Fingerstick Comments: [place] [address] [place] [address] PROTIME ISTAT 28.4 {SEC} (Abnormal) Range: 11.9-14.4 Comments: Reference Range 11.9 - 14.4 :30 INR Fingerstick Comments: [place] [address] [place] [address] INR ISTAT 2.40 (Normal) Comments: Critical Value > 3.5 :30 Prothrombin Time Fingerstick Comments: [place] [address] [place] [address] PROTIME ISTAT 27.3 {SEC} (Abnormal) Range: 11.9-14.4 Comments: Reference Range 11.9 - 14.4 :51 PT (Prothrobim Time) Comments: standing order fingerstick or serum; PATIENT NOT FASTINGPERFORMED BY: [facility]Co[facility] CenterDquysq5115 [place] [facility] [id number] Information: [id number] ([id number]) Prothrombin Time 33.2 {sec} (Abnormal) Range: 9.1-12.0 INR 3.2 (Abnormal) Range: 0.8-1.2 Comments: Reference interval is for non-anticoagulated patients. . Suggested INR therapeutic range for Vitamin K anta gonist therapy: Standard Dose (moderate intensity therapeutic range): 2.0 - 3.0 Higher intensity therapeutic range 2.5 - 3.5 54-Xle-212866:05 HgA1C , Office (43955) HgA1C , Office 5.5 % (Normal) Range: 4.6 - 7.1 68-Ehn-917536:50 Prothrombin Time w/INR Comments: [facility] [address] [place], [address] INR 2.5 (Normal) PROTIME 26.9 s (Abnormal) Range: 11.7-14.9 98-Pcv-115918:05 Prothrombin Time w/INR Comments: [facility] [address] [place], [address] INR 2.4 (Normal) PROTIME 26.1 s (Abnormal) Range: 11.7-14.9 54-Pgq-131580:31 Prothrombin Time w/INR Comments: [facility] [address] [place], [address] INR 3.1 (Normal) PROTIME 31.9 s (Abnormal) Range: 11.7-14.9 84-Kmj-853280:14 Prothrombin Time w/INR Comments: [facility] [address] [place], [address] INR 2.9 (Normal) PROTIME 30.4 s (Abnormal) Range: 11.7-14.9 60-Dap-707567:40 Prothrombin Time w/INR Comments: [facility] [address] [place], [address] INR 2.4 (Normal) PROTIME 26.3 s (Abnormal) Range: 11.7-14.9 59-Ltv-091830:00 PT (Prothrobim Time) Comments: standing order; PATIENT NOT FASTINGPERFORMED BY: [place] [id number] [facility] [id number] Information: [id number] ([id number]) Prothrombin Time 17.3 {sec} (Abnormal) Range: 9.1-12.0 INR 1.7 (Abnormal) Range: 0.8-1.2 Comments: Reference interval is for non-anticoagulated patients. . Suggested INR therapeutic range for Vitamin K anta gonist therapy: Standard Dose (moderate intensity therapeutic range): 2.0 - 3.0 Higher intensity therapeutic range 2.5 - 3.5 44-Fyx-356110:00 Hemoglobin Glyclated (HGB A1C) Comments: PATIENT NOT FASTINGPERFORMED BY: [facility]6370 [facility] [id number] ([id number]) Hemoglobin A1c 5.7 % (Abnormal) Range: 4.8-5.6 Comments: . Increased risk for diabetes: 5.7 - 6.4 Diabetes: >6.4 Glycemic control for adults with diabetes: <7.0 94-Okt-860540:34 Prothrombin Time w/INR Comments: Test performed at:[facility] [address] [place] [address] INR 2.3 (Normal) PROTIME 25.4 s (Abnormal) Range: 11.7-14.9 :54 Prothrombin Time w/INR Comments: Test performed at:[facility] [address] [place] [address] INR 2.6 (Normal) PROTIME 27.6 s (Abnormal) Range: 11.7-14.9 96-Rcl-063489:50 PT (Prothrobim Time) Comments: so; PATIENT NOT FASTINGPERFORMED BY: [place] [id number] [facility] [id number] Information: [id number] ([id number]) Prothrombin Time 35.6 {sec} (Abnormal) Range: 9.1-12.0 INR 3.4 (Abnormal) Range: 0.8-1.2 Comments: Reference interval is for non-anticoagulated patients. . Suggested INR therapeutic range for Vitamin K anta gonist therapy: Standard Dose (moderate intensity therapeutic range): 2.0 - 3.0 Higher intensity therapeutic range 2.5 - 3.5 :42 Prothrombin Time w/INR Comments: Test performed at:[facility] Refzkmtqet1551 [facility] [place] [address] INR 1.9 (Normal) PROTIME 22.2 s (Abnormal) Range: 11.7-14.9 06-Aye-87573:10 Prothrombin Time w/INR Comments: Test performed at:[facility] [address]um[address] [facility] [place] [address] INR 2.5 (Normal) PROTIME 26.7 s (Abnormal) Range: 11.7-14.9 93-Uog-910808:49 CBC with auto diff Comments: copy of all labs to Dr. martinez; PATIENT WAS FASTINGPERFORMED BY: [facility]CoM[facility] HospitalIrbauu0108 [facility] [id number] Information: [id number] ([id number]) Immature Grans (Abs) 0.0 {x10E3/uL} (Normal) Range: 0.0-0.1 Immature Granulocytes 0 % (Normal) Baso (Absolute) 0.0 {x10E3/uL} (Normal) Range: 0.0-0.2 Eos (Absolute) 0.1 {x10E3/uL} (Normal) Range: 0.0-0.4 Monocytes(Absolute) 0.5 {x10E3/uL} (Normal) Range: 0.1-0.9 Lymphs (Absolute) 2.6 {x10E3/uL} (Normal) Range: 0.7-3.1 Neutrophils (Absolute) 2.7 {x10E3/uL} (Normal) Range: 1.4-7.0 Basos 1 % (Normal) Eos 2 % (Normal) Monocytes 9 % (Normal) Lymphs 43 % (Normal) Neutrophils 45 % (Normal) Platelets 195 {x10E3/uL} (Normal) Range: 150-379 RDW 13.4 % (Normal) Range: 12.3-15.4 MCHC 32.0 g/dL (Normal) Range: 31.5-35.7 MCH 30.1 pg (Normal) Range: 26.6-33.0 MCV 94 fL (Normal) Range: 79-97 Hematocrit 38.7 % (Normal) Range: 34.0-46.6 Hemoglobin 12.4 g/dL (Normal) Range: 11.1-15.9 RBC 4.12 {x10E6/uL} (Normal) Range: 3.77-5.28 WBC 6.0 {x10E3/uL} (Normal) Range: 3.4-10.8 :49 CALCIFIDIOL (03804) VIT D 25 Comments: PATIENT WAS FASTINGPERFORMED BY: revoPT [address]ah[address] [place] [facility] [id number] Vitamin D, 25-Hydroxy 28.0 ng/mL (Abnormal) Range: 30.0-100.0 Comments: Vitamin D deficiency has been defined by the [place] of[facility] Systemcine and an Endocrine Society practice guideline as alevel of serum 25-OH vitamin D less than 20 ng/mL (1,2).The Endocrine Society went on to further define vitamin Dinsufficiency as a level between 21 and 29 ng/mL (2).1. IOM ([place] of Medicine). 2010. Dietary reference intakes for calcium and D. [place]: The National Academies Press.2. Tono MF, Jonatan NC, Fabiola HUANG, et al. Evaluation, treatment, and prevention of vitamin D deficiency: an Endocrine Society clinical practice guideline. JCEM. 2010; 96(7):1911-30. :49 MICROALBUMIN: CREATININE RATIO Comments: PATIENT WAS FASTINGPERFORMED BY: revoPTMarlton Rehabilitation HospitalNujvgm0084 [facility] [id number]; apt. 03-02-15 ([id number]) AND ([address]) Microalb/Creat Ratio 23.8 {mg/g_creat} (Normal) Range: 0.0-30.0 Microalbumin, Urine 17.2 ug/mL (Abnormal) Range: 0.0-17.0 Creatinine, Urine 72.3 mg/dL (Normal) Range: 15.0-278.0 :49 METABOLIC PANEL, COMPREHENSIVE Comments: PATIENT WAS FASTINGPERFORMED BY: [employer] [place] [facility] [id number] ([id number]) ALT (SGPT) 7 [iU]/L (Normal) Range: 0-32 AST (SGOT) 16 [iU]/L (Normal) Range: 0-40 Alkaline Phosphatase, S 55 [iU]/L (Normal) Range: 39-117 Bilirubin, Total 0.4 mg/dL (Normal) Range: 0.0-1.2 A/G Ratio 1.5 (Normal) Range: 1.1-2.5 Globulin, Total 2.7 g/dL (Normal) Range: 1.5-4.5 Albumin, Serum 4.0 g/dL (Normal) Range: 3.5-4.8 Protein, Total, Serum 6.7 g/dL (Normal) Range: 6.0-8.5 Calcium, Serum 9.3 mg/dL (Normal) Range: 8.7-10.3 Carbon Dioxide, Total 24 mmol/L (Normal) Range: 18-29 Chloride, Serum 102 mmol/L (Normal) Range: 97-108 Potassium, Serum 4.2 mmol/L (Normal) Range: 3.5-5.2 Sodium, Serum 141 mmol/L (Normal) Range: 134-144 BUN/Creatinine Ratio 16 (Normal) Range: 11-26 eGFR If Africn Am 99 mL/min/1.73 (Normal) eGFR If NonAfricn Am 86 mL/min/1.73 (Normal) Creatinine, Serum 0.68 mg/dL (Normal) Range: 0.57-1.00 BUN 11 mg/dL (Normal) Range: 8-27 Glucose, Serum 82 mg/dL (Normal) Range: 65-99 73-Qed-178688:49 LIPID PANEL (54604) Comments: PATIENT WAS FASTINGPERFORMED BY: revoPT Qptqkx8609 [facility] [id number] LDL/HDL Ratio 1.0 {ratio_units} (Normal) Range: 0.0-3.2 Comments: LDL/HDL Ratio Men Women 1/2 Avg.Risk 1.0 1.5 Av g.Risk 3.6 3.2 2X Avg.Risk 6.2 5.0 3X Avg.Risk 8.0 6.1 LDL Cholesterol Calc 64 mg/dL (Normal) Range: 0-99 VLDL Cholesterol Jessica 18 mg/dL (Normal) Range: 5-40 HDL Cholesterol 67 mg/dL (Normal) Comments: According to ATP-III Guidelines, HDL-C >59 mg/dL is considered anegative risk factor for CHD. Triglycerides 92 mg/dL (Normal) Range: 0-149 Cholesterol, Total 149 mg/dL (Normal) Range: 100-199 :26 HgA1C , Office (63028) HgA1C , Office 5.6 % (Normal) Range: 4.6 - 7.1 :26 Blood Glucose , Office (01371) Blood Glucose , Office 102 (Normal) :27 Prothrombin Time w/INR Comments: Test performed at:[facility] [address]rq[address] [facility] [place] [address] INR 3.3 (Normal) PROTIME 33.6 s (Abnormal) Range: 11.7-14.9 :35 Prothrombin Time w/INR Comments: Test performed at:[facility] [address] [place] [address] INR 2.7 (Normal) PROTIME 28.9 s (Abnormal) Range: 11.7-14.9 :18 Prothrombin Time w/INR Comments: Test performed at:[facility] [id number] [place] [address] INR 2.5 (Normal) PROTIME 27.0 s (Abnormal) Range: 11.7-14.9 :37 Prothrombin Time w/INR Comments: Test performed at:[facility] [id number] [place] [address] INR 2.2 (Normal) PROTIME 24.4 s (Abnormal) Range: 11.7-14.9 :13 Prothrombin Time w/INR Comments: Test performed at:[facility] [id number] [place], [place] [id number] INR 2.4 (Normal) PROTIME 26.2 s (Abnormal) Range: 11.7-14.9 :48 PT INR 2.4 (Normal) PTP 25.8 s (Abnormal) Range: 11.7-14.9 :43 HgA1C , Office (08735) HgA1C , Office 5.8 % (Normal) Range: 4.6 - 7.1 :43 Blood Glucose , Office ([id number]) Blood Glucose , Office 98 (Normal) :15 CBCD ALC 2.63 {X10_3/ul} (Normal) Range: 0.83-4.51 ANC 1.8 {X10_3/uL} (Abnormal) Range: 2.0-7.7 IG% 0.200 % (Normal) Range: 0.0-0.9 Comments: IG% - Immature Granulocytes (promyelocytes, myelocytes andmetamyelocytes) > 1% indicates that a LEFT SHIFT is Present. B% 0.6 % (Normal) Range: 0-1 E% 2.8 % (Normal) Range: 0-5 M% 9.3 % (Normal) Range: 0-10 L% 52.3 % (Abnormal) Range: 19-41 N% 34.8 % (Abnormal) Range: 47-70 MPV 12.6 fL (Abnormal) Range: 6.2-12.0 PLT 139 K/mm3 (Abnormal) Range: 150-450 RDWSD 43.5 fL (Normal) Range: 35.1-43.9 RDWCV 13.2 % (Normal) Range: 11.6-14.6 MCHC 32.4 {g/gl} (Normal) Range: 32-36 MCH 30.2 pg (Normal) Range: 27.0-32.0 MCV 93.2 fL (Normal) Range: 81-99 HCT 39.5 % (Normal) Range: 37-47 HGB 12.8 g/dL (Normal) Range: 12.0-15.0 RBC 4.24 {M/mm3} (Normal) Range: 4.2-5.4 WBC 5.0 K/mm3 (Normal) Range: 4.4-11.0 [id number]:15 CMP GAP 6 (Normal) Range: 5-15 CO2 29.0 mmol/L (Normal) Range: 21.0-32.0 CL 105 mmol/L (Normal) Range: 98-107 K 4.0 mmol/L (Normal) Range: 3.5-5.1 NA 140 mmol/L (Normal) Range: 136-145 BIT 0.70 mg/dL (Normal) Range: 0.00-4.00 ALT 15 U/L (Normal) Range: 12-78 ALK 57 U/L (Normal) Range: 50-136 AST 19 U/L (Normal) Range: 15-37 CA 8.9 mg/dL (Normal) Range: 8.5-10.1 AG 0.8 {RATIO} (Abnormal) Range: 0.9-2.4 GLOB 3.9 g/dL (Normal) Range: 2.7-4.2 ALB 3.3 g/dL (Abnormal) Range: 3.4-5.0 TPROT 7.2 g/dL (Normal) Range: 6.4-8.2 BC 17.1 {RATIO} (Normal) Range: 10-20 CREAT 0.7 mg/dL (Normal) Range: 0.6-1.0 BUN 12 mg/dL (Normal) Range: 7-18 GLU 80 mg/dL (Normal) Range: 70-110 [id number] LIPID VLDL 19 mg/dL (Normal) Range: 5-40 LDL 42 mg/dL (Normal) Range: 0-130 HDL 69 mg/dL (Normal) Comments: Reference RangeHDL <40 mg/dL Low HDL CholesterolHDL >or= 60 mg/dL High HDL Cholesterol TRIG 95 mg/dL (Normal) Range: 0-199 Comments: Serum Triglycerides Reference IntervalNormal <150 mg/dLBorderline high 150 - 199 mg/dLHigh 200 - 499 mg/ dLVery High > or = 500 mg/dL CHOL 130 mg/dL (Normal) Comments: <200 mg/dL Pedkeoysh261-613 mg/dL Borderline>240 mg/dL High Risk 32-Rqb-128944:15 PT INR 2.7 (Normal) PTP 28.2 s (Abnormal) Range: 11.7-14.9 35-Cgi-706182:15 UA Comments: How was Urine Obtained? CLEAN CATCH UMUC 0 SEEN {/hpf} (Normal) UBAC RARE {/hpf} (Normal) UEPIS 0-5 SEEN {/hpf} (Normal) Range: 5-10 URBC 0 SEEN {/hpf} (Normal) Range: 0-5 UWBC 0-5 SEEN {/hpf} (Normal) Range: 0-5 OLEG 25 /ul (Abnormal) UOB 10 /ul (Abnormal) TAMARA Negative (Normal) UROBU Normal mg/dL (Normal) uPROTU Negative mg/dL (Normal) DARLYN 7.0 (Normal) Range: 5.0 - 8.0 SGU 1.010 (Normal) Range: 1.002-1.030 KETU Negative mg/dL (Normal) BILIU Negative mg/dL (Normal) GLUR Normal mg/dL (Normal) UCLAR Clear (Normal) UCOL Yellow (Normal) :15 VITD 53.7 ng/mL (Normal) Comments: Vitamin D 25(OH) Status RangeDeficiency <20 ng/mL (50nmol/L)Insuffciency 20 - 30 ng/mL (50 - 75 nmol/L)Sufficiency 30 - 100 ng/mL (75 - 250 nmol/L)Toxicity >100 ng/mL (>250 nmol/L) :26 PT INR 2.4 (Normal) PTP 25.7 s (Abnormal) Range: 11.7-14.9 :54 PT INR 2.7 (Normal) PTP 28.7 s (Abnormal) Range: 11.7-14.9 :14 PT INR 3.0 (Normal) PTP 30.7 s (Abnormal) Range: 11.7-14.9 :30 PT INR 2.4 (Normal) PTP 26.4 s (Abnormal) Range: 11.7-14.9 Comments: Please note revised PROTIME reference range vhalhejhj40/14/15. 1-Dyb-476532:27 PT INR 1.6 (Normal) PTP 19.1 s (Abnormal) Range: 11.7-14.9 Comments: Please note revised PROTIME reference range uombpcoev91/14/15. 68-Ysa-467270:55 HgA1C , Office (09296) HgA1C , Office 6.0 % (Normal) Range: 4.6 - 7.1 :55 Blood Glucose , Office (36775) Blood Glucose , Office 103 (Normal) :55 PT INR 2.3 (Normal) PTP 24.9 s (Abnormal) Range: 11.7-14.9 Comments: Please note revised PROTIME reference range hxazqmlfr34/. 9-:51 PT INR 2.1 (Normal) PTP 21.9 s (Abnormal) Range: 11.9-14.4 :25 CBCD ANC 2.6 {X10_3/uL} (Normal) Range: 2.0-7.7 IG% 0.200 % (Normal) Range: 0.0-0.9 Comments: IG% - Immature Granulocytes (promyelocytes, myelocytes andmetamyelocytes) > 1% indicates that a LEFT SHIFT is Present. B% 0.5 % (Normal) Range: 0-1 E% 2.4 % (Normal) Range: 0-5 M% 9.4 % (Normal) Range: 0-10 L% 41.8 % (Abnormal) Range: 19-41 N% 45.7 % (Abnormal) Range: 47-70 MPV 11.8 fL (Normal) Range: 6.2-12.0 PLT 183 K/mm3 (Normal) Range: 150-450 RDWSD 44.8 fL (Abnormal) Range: 35.1-43.9 RDWCV 13.1 % (Normal) Range: 11.6-14.6 MCHC 32.8 {g/gl} (Normal) Range: 32-36 MCH 30.8 pg (Normal) Range: 27.0-32.0 MCV 93.8 fL (Normal) Range: 81-99 HCT 39.0 % (Normal) Range: 37-47 HGB 12.8 g/dL (Normal) Range: 12.0-15.0 RBC 4.16 {M/mm3} (Abnormal) Range: 4.2-5.4 WBC 5.7 K/mm3 (Normal) Range: 4.4-11.0 :25 CMP GAP 6 (Normal) Range: 5-15 CO2 30.0 mmol/L (Normal) Range: 21.0-32.0 CL 105 mmol/L (Normal) Range: 98-107 K 4.2 mmol/L (Normal) Range: 3.5-5.1 NA 141 mmol/L (Normal) Range: 136-145 BIT 0.60 mg/dL (Normal) Range: 0.00-1.00 ALT 18 U/L (Normal) Range: 12-78 ALK 58 U/L (Normal) Range: 45-117 AST 17 U/L (Normal) Range: 15-37 CA 9.6 mg/dL (Normal) Range: 8.5-10.1 AG 0.9 {RATIO} (Normal) Range: 0.9-2.4 GLOB 3.9 g/dL (Normal) Range: 2.7-4.2 ALB 3.5 g/dL (Normal) Range: 3.4-5.0 TPROT 7.4 g/dL (Normal) Range: 6.4-8.2 BC 16.3 {RATIO} (Normal) Range: 10-20 CREAT 0.8 mg/dL (Normal) Range: 0.6-1.0 BUN 13 mg/dL (Normal) Range: 7-18 GLU 96 mg/dL (Normal) Range: 70-110 :25 LIPID HDL 70 mg/dL (Normal) Comments: Reference RangeHDL <40 mg/dL Low HDL CholesterolHDL >or= 60 mg/dL High HDL Cholesterol LDL 64 mg/dL (Normal) Range: 0-130 VLDL 19 mg/dL (Normal) Range: 5-40 CHOL 153 mg/dL (Normal) Comments: <200 mg/dL Zyltbnltc656-785 mg/dL Borderline>240 mg/dL High Risk TRIG 93 mg/dL (Normal) Range: 0-199 Comments: Serum Triglycerides Reference IntervalNormal <150 mg/dLBorderline high 150 - 199 mg/dLHigh 200 - 499 mg/ dLVery High > or = 500 mg/dL :08 Blood Glucose , Office (06588) Blood Glucose , Office 90 (Normal) :08 HgA1C , Office (53838) HgA1C , Office 6.0 % (Normal) Range: 4.6 - 7.1 :10 PT INR 1.9 (Normal) PTP 20.6 s (Abnormal) Range: 11.9-14.4 :07 PT INR 2.5 (Normal) PTP 25.3 s (Abnormal) Range: 11.9-14.4 :01 PT INR 2.0 (Normal) PTP 21.1 s (Abnormal) Range: 11.9-14.4 :06 PT INR 1.1 (Normal) PTP 13.4 s (Normal) Range: 11.9-14.4 :41 PT INR 2.3 (Normal) PTP 23.8 s (Abnormal) Range: 11.9-14.4 :12 HgA1C , Office (24051) HgA1C , Office 6.8 % (Normal) Range: 4.6 - 7.1 :12 Blood Glucose , Office (22518) Blood Glucose , Office 109 (Normal) :20 CBCD ANC 2.8 {X10_3/uL} (Normal) Range: 2.0-7.7 IG% 0.000 % (Normal) Range: 0.0-0.9 Comments: IG% - Immature Granulocytes (promyelocytes, myelocytes andmetamyelocytes) > 1% indicates that a LEFT SHIFT is Present. B% 0.5 % (Normal) Range: 0-1 E% 3.3 % (Normal) Range: 0-5 M% 11.2 % (Abnormal) Range: 0-10 L% 42.5 % (Abnormal) Range: 19-41 N% 42.5 % (Abnormal) Range: 47-70 MPV 12.8 fL (Abnormal) Range: 6.2-12.0 PLT 182 K/mm3 (Normal) Range: 150-450 RDWCV 13.9 % (Normal) Range: 11.6-14.6 RDWSD 46.6 fL (Abnormal) Range: 35.1-43.9 MCHC 31.9 {g/gl} (Abnormal) Range: 32-36 MCH 29.4 pg (Normal) Range: 27.0-32.0 MCV 92.2 fL (Normal) Range: 81-99 HCT 42.3 % (Normal) Range: 37-47 HGB 13.5 g/dL (Normal) Range: 12.0-15.0 RBC 4.59 {M/mm3} (Normal) Range: 4.2-5.4 WBC 6.5 K/mm3 (Normal) Range: 4.4-11.0 :20 CMP GAP 11 (Normal) Range: 5-15 CO2 27.0 mmol/L (Normal) Range: 21.0-32.0 CL 103 mmol/L (Normal) Range: 98-107 K 4.2 mmol/L (Normal) Range: 3.5-5.1 NA 141 mmol/L (Normal) Range: 136-145 BIT 0.60 mg/dL (Normal) Range: 0.00-1.00 ALT 20 U/L (Normal) Range: 12-78 ALK 54 U/L (Normal) Range: 50-136 AST 17 U/L (Normal) Range: 15-37 CA 9.2 mg/dL (Normal) Range: 8.5-10.1 AG 0.9 {RATIO} (Normal) Range: 0.9-2.4 GLOB 3.9 g/dL (Normal) Range: 2.7-4.2 ALB 3.4 g/dL (Normal) Range: 3.4-5.0 TPROT 7.3 g/dL (Normal) Range: 6.4-8.2 BC 16.3 {RATIO} (Normal) Range: 10-20 CREAT 0.8 mg/dL (Normal) Range: 0.6-1.0 BUN 13 mg/dL (Normal) Range: 7-18 GLU 102 mg/dL (Normal) Range: 70-110 :20 LIPID VLDL 31 mg/dL (Normal) Range: 5-40 HDL 66 mg/dL (Normal) Comments: Reference RangeHDL <40 mg/dL Low HDL CholesterolHDL >or= 60 mg/dL High HDL Cholesterol LDL 70 mg/dL (Normal) Range: 0-130 CHOL 167 mg/dL (Normal) Comments: <200 mg/dL Sxgdkfewm582-345 mg/dL Borderline>240 mg/dL High Risk TRIG 155 mg/dL (Normal) Range: 0-199 Comments: Serum Triglycerides Reference IntervalNormal <150 mg/dLBorderline high 150 - 199 mg/dLHigh 200 - 499 mg/ dLVery High > or = 500 mg/dL :20 MIACRE tMICROCREAT 6.8 {mg/g_CRE} (Normal) MIALB 8.3 mg/L (Normal) CREU 121.9 mg/dL (Normal) :20 PT INR 2.1 (Normal) PTP 22.2 s (Abnormal) Range: 11.9-14.4 :20 VITD 76.9 mg/mL (Normal) Comments: Vitamin D 25(OH) Status RangeDeficiency <20 ng/mL (50nmol/L)Insuffciency 20 - 30 ng/mL (50 - 75 nmol/L)Sufficiency 30 - 100 ng/mL (75 - 250 nmol/L)Toxicity >100 ng/mL (>250 nmol/L) :54 PT (Prothrobim Time) Comments: PATIENT NOT FASTINGPERFORMED BY: [address] [id number] Information: [id number] ([id number]) Prothrombin Time 18.3 {sec} (Abnormal) Range: 9.1-12.0 INR 1.8 (Abnormal) Range: 0.8-1.2 Comments: Reference interval is for non-anticoagulated patients. . Suggested INR therapeutic range for Vitamin K anta gonist therapy: Standard Dose (moderate intensity therapeutic range): 2.0 - 3.0 Higher intensity therapeutic range 2.5 - 3.5 :06 PT (Prothrobim Time) Comments: PATIENT NOT FASTINGPERFORMED BY: [facility] [facility] [id number] Information: [id number] ([id number]) Prothrombin Time 29.0 {sec} (Abnormal) Range: 9.1-12.0 INR 2.8 (Abnormal) Range: 0.8-1.2 Comments: Reference interval is for non-anticoagulated patients. . Suggested INR therapeutic range for Vitamin K anta gonist therapy: Standard Dose (moderate intensity therapeutic range): 2.0 - 3.0 Higher intensity therapeutic range 2.5 - 3.5 :23 PT (Prothrobim Time) Comments: PATIENT NOT FASTINGPERFORMED BY: [address] [place] [id number] Information: [id number] ORDER NO DRAW F EE (56096) Prothrombin Time 31.6 {sec} (Abnormal) Range: 9.1-12.0 INR 3.0 (Abnormal) Range: 0.8-1.2 Comments: Reference interval is for non-anticoagulated patients. . Suggested INR therapeutic range for Vitamin K anta gonist therapy: Standard Dose (moderate intensity therapeutic range): 2.0 - 3.0 Higher intensity therapeutic range 2.5 - 3.5 9-Ojo-343919:23 TSH (10242) Comments: recheck in 3-4 weeks; PATIENT NOT FASTINGPERFORMED BY: [facility] [facility] [id number] TSH 1.150 {uIU/mL} (Normal) Range: 0.450-4.500 8-Cgd-272667:23 T4, FREE (THYROXINE) Comments: recheck in 3-4 weeks; PATIENT NOT FASTINGPERFORMED BY: [facility] [facility] [id number] Information: [id number] (51480) T4,Free(Direct) 1.08 ng/dL (Normal) Range: 0.82-1.77 1-Nwd-278250:23 T3, FREE (TRIDOTHYRONINE) (48013) Comments: recheck in 3-4 weeks; PATIENT NOT FASTINGPERFORMED BY: [facility] [facility] [id number] Triiodothyronine,Free,Serum 2.2 pg/mL (Normal) Range: 2.0-4.4 8-Eic-945692:44 PT (Prothrobim Time) Comments: results to Dr Enrique; PATIENT NOT FASTINGPERFORMED BY: [facility] [facility] [id number] Information: [id number] (61353) Prothrombin Time 31.4 {sec} (Abnormal) Range: 9.1-12.0 INR 3.0 (Abnormal) Range: 0.8-1.2 Comments: Reference interval is for non-anticoagulated patients. . Suggested INR therapeutic range for Vitamin K anta gonist therapy: Standard Dose (moderate intensity therapeutic range): 2.0 - 3.0 Higher intensity therapeutic range 2.5 - 3.5 :44 TSH (64062) Comments: PATIENT NOT FASTINGPERFORMED BY: [facility] [place] [id number] TSH 0.139 {uIU/mL} (Abnormal) Range: 0.450-4.500 :44 T4, FREE (THYROXINE) (27417) Comments: PATIENT NOT FASTINGPERFORMED BY: [facility] [facility] [place] [id number] T4,Free(Direct) 1.18 ng/dL (Normal) Range: 0.82-1.77 :44 T3, FREE (TRIDOTHYRONINE) (13159) Comments: PATIENT NOT FASTINGPERFORMED BY: [facility] [facility] [place] [id number] Triiodothyronine,Free,Serum 2.1 pg/mL (Normal) Range: 2.0-4.4 :02 SED RATE ERYTHROCYTE (98512) Comments: PATIENT NOT FASTINGPERFORMED BY: [facility] [facility] [place] [id number] Sedimentation Rate-Westergren 18 mm/h (Normal) Range: 0-40 :02 TSH (95068) Comments: PATIENT NOT FASTINGPERFORMED BY: [facility] [facility] [place] [id number] TSH 0.358 {uIU/mL} (Abnormal) Range: 0.450-4.500 9-Bds-063491:02 VIKI (ANTINUCLEAR ANTIBODY) Comments: PATIENT NOT FASTINGPERFORMED BY: [facility] Tqjqoq[address] [facility] [place] [id number] ([id number]) VIKI Direct Negative (Normal) : CBC WITH MANUAL DIFF Comments: PATIENT NOT FASTINGPERFORMED BY: [facility] [facility] [id number] Information: [id number] (68339) Immature Grans (Abs) 0.0 {x10E3/uL} (Normal) Range: 0.0-0.1 Immature Granulocytes 0 % (Normal) Range: 0-2 Baso (Absolute) 0.1 {x10E3/uL} (Normal) Range: 0.0-0.2 Eos (Absolute) 0.5 {x10E3/uL} (Abnormal) Range: 0.0-0.4 Lymphs (Absolute) 3.4 {x10E3/uL} (Normal) Range: 0.7-4.5 Monocytes(Absolute) 1.0 {x10E3/uL} (Normal) Range: 0.1-1.0 Neutrophils (Absolute) 4.1 {x10E3/uL} (Normal) Range: 1.8-7.8 Basos 1 % (Normal) Range: 0-3 Eos 5 % (Normal) Range: 0-7 Monocytes 11 % (Normal) Range: 4-13 Lymphs 38 % (Normal) Range: 14-46 Neutrophils 45 % (Normal) Range: 40-74 Platelets 210 {x10E3/uL} (Normal) Range: 140-415 Comments: Effective February 11, 2013, the reference intervals for CBC:WBC, Differential Parameters (Neutrophil %, Neutrophil Absolute, Lymphocyte %, Lymphocyte Absolute, Monocyte %, Monocyte Absolute, Eos inophil %, Eosinophil Absolute), and Platelet Counts will be adjusted to maintain consistency with the distribution of these values in the reference population. RDW 13.7 % (Normal) Range: 12.3-15.4 MCH 29.9 pg (Normal) Range: 26.6-33.0 MCHC 32.3 g/dL (Normal) Range: 31.5-35.7 MCV 93 fL (Normal) Range: 79-97 Hematocrit 41.8 % (Normal) Range: 34.0-46.6 Hemoglobin 13.5 g/dL (Normal) Range: 11.1-15.9 RBC 4.52 {x10E6/uL} (Normal) Range: 3.77-5.28 WBC 9.0 {x10E3/uL} (Normal) Range: 4.0-10.5 Comments: Effective February 11, 2013, the reference intervals for CBC:WBC, Differential Parameters (Neutrophil %, Neutrophil Absolute, Lymphocyte %, Lymphocyte Absolute, Monocyte %, Monocyte Absolute, Eos inophil %, Eosinophil Absolute), and Platelet Counts will be adjusted to maintain consistency with the distribution of these values in the reference population. 8-Iwh-042289:02 METABOLIC PANEL, COMPREHENSIVE Comments: PATIENT NOT FASTINGPERFORMED BY: [facility]Orqrvl[address] [facility] [id number] ([id number]) ALT (SGPT) 11 [iU]/L (Normal) Range: 0-32 AST (SGOT) 18 [iU]/L (Normal) Range: 0-40 A/G Ratio 1.2 (Normal) Range: 1.1-2.5 Alkaline Phosphatase, S 51 [iU]/L (Normal) Range: 45-108 Bilirubin, Total 0.8 mg/dL (Normal) Range: 0.0-1.2 Globulin, Total 3.3 g/dL (Normal) Range: 1.5-4.5 Albumin, Serum 3.9 g/dL (Normal) Range: 3.5-4.8 Protein, Total, Serum 7.2 g/dL (Normal) Range: 6.0-8.5 Calcium, Serum 10.0 mg/dL (Normal) Range: 8.6-10.2 Carbon Dioxide, Total 22 mmol/L (Normal) Range: 19-28 Chloride, Serum 102 mmol/L (Normal) Range: 97-108 Potassium, Serum 4.7 mmol/L (Normal) Range: 3.5-5.2 Sodium, Serum 141 mmol/L (Normal) Range: 134-144 BUN/Creatinine Ratio 17 (Normal) Range: 11-26 eGFR If Africn Am 99 mL/min/1.73 (Normal) Creatinine, Serum 0.70 mg/dL (Normal) Range: 0.57-1.00 eGFR If NonAfricn Am 86 mL/min/1.73 (Normal) BUN 12 mg/dL (Normal) Range: 8-27 Glucose, Serum 94 mg/dL (Normal) Range: 65-99 40-Bjv-667442:20 PT INR 2.0 (Normal) PTP 21.6 s (Abnormal) Range: 11.9-14.4 43-Qxo-037878:24 BILAT SCRN DIGITAL & CAD Radiology Report See Note Comments: MAMMOGRAPHY - BILATERAL SCREENING REASON FOR EXAM: Female, 72 years old. Routine annual screeningexamination. PERTINENT HISTORY: Non-contributory. TECHNIQUE: Digital examination. Med iolateral ob (Normal) lique (MLO) andcraniocaudad (CC) views of both breasts were obtained. CAD: CAD wasperformed on this study. COMPARISON: 01/30/12 FINDINGS:The breast composition is c om posed of scattered fibroglandular tissuesranging from 25% to 50% of the breast. There are no dominant masses or suspicious calcifications. Small asymmetric parenchymal density is in the outer right yadi st andupperright breast are unchanged from previous studies dating back at least to08/10/09. IMPRESSION:Stable bilateral screening mammogram. Yearly follow-up recommend ed. (A) ASSESSMENT CATEGORY:BIRADS Category 2: Benign finding(s). A letter regarding these resultswill be sent to the patient by the facility within 30 days. Appro ximately 10% of breast cancers are not detected by mammography. Anormal mammogram should not delay biopsy of a clinically suspiciousabnormality. Signed:Jhon Lazcano M.D.January 31, 2013 at 6:48:38 P M [phone] Signed RU/RU If you are the referring physician and would like to consult with theradiologist who provided this interpretation, please contact Taz Stack at [phone]. If this radiologist is unavailable, youwillbe directed to another radiologist to assist. If you are a patient with a question regarding this report, pleasecontactyour referring physician dire ctly. Professional Interpretation Provided By: [employer], Phone , These documents contain legally protected and confidential healthinformation intended only for the use o f the individual or entity namedabove. If you are not the intended recipient, you are hereby notifiedthatany disclosure, copying, distribution, or other use of these documents isstrictly prohibited. If you have received this information in error,pleasenotify the sender immediately and arrange for the return or destructionofthese documents. Dictated on 01/31/131847 by Jhon LazcanoTranscribed on 01/31/131904 by ITS IMPORTSign by Jhon Lazcano on 01/31/131905 Sign by: Jhon Lazcano :53 Blood Glucose , Office (64616) Blood Glucose , Office 115 (Normal) :53 HgA1C , Office (46690) HgA1C , Office 6.1 % (Normal) Range: 4.6 - 7.1 :52 PT INR 1.7 (Normal) PTP 18.6 s (Abnormal) Range: 11.9-14.4 :56 Aerobic Bacterial Culture Comments: PERFORMED BY: [facility] [facility] [id number] Information: SRC:UB Result 1 Mixed skin yaakov (Normal) Aerobic Bacterial Culture Final report (Normal) :37 PT INR 2.5 (Normal) PTP 25.6 s (Abnormal) Range: 11.9-14.4 :03 HgA1C , Office (69639) HgA1C , Office 7.1 % (Normal) Range: 4.6 - 7.1 :35 PT INR 3.0 (Normal) PTP 28.4 s (Abnormal) Range: 11.9-14.4 :51 PT INR 2.9 (Normal) PTP 28.0 s (Abnormal) Range: 11.9-14.4 :59 BMP GAP 8 (Normal) Range: 5-15 CO2 27.0 mmol/L (Normal) Range: 21.0-32.0 CL 104 mmol/L (Normal) Range: 98-107 K 4.6 mmol/L (Normal) Range: 3.5-5.1 NA 139 mmol/L (Normal) Range: 136-145 CA 10.5 mg/dL (Abnormal) Range: 8.5-10.1 BC 20.0 {RATIO} (Normal) Range: 10-20 BUN 14 mg/dL (Normal) Range: 7-18 CREAT 0.7 mg/dL (Normal) Range: 0.6-1.0 GLU 107 mg/dL (Normal) Range: 70-110 :59 MIACRE tMICROCREAT 6.5 {mg/g_CRE} (Normal) MIALB 5.0 mg/L (Normal) CREU 76.0 mg/dL (Normal) :59 PT INR 2.7 (Normal) PTP 26.7 s (Abnormal) Range: 11.9-14.4 :59 VITD 83.8 ng/mL (Normal) Comments: Vitamin D 25(OH) Status RangeDeficiency <20 ng/mL (50nmol/L)Insufficiency 20 - 30 ng/mL (50 - 75 nmol/L)Sufficiency 30 - 100 ng/mL (75 - 250 nm ol/L)Toxicity >100 ng/mL (250 nmol/L)Effective 2012:06 PT INR 1.8 (Normal) PTP 19.5 s (Abnormal) Range: 11.9-14.4 :51 PT INR 2.1 (Normal) PTP 22.2 s (Abnormal) Range: 11.9-14.4 :37 BMP GAP 7 (Normal) Range: 5-15 CO2 30.0 mmol/L (Normal) Range: 21.0-32.0 CL 102 mmol/L (Normal) Range: 98-107 K 4.6 mmol/L (Normal) Range: 3.5-5.1 NA 139 mmol/L (Normal) Range: 136-145 CA 9.6 mg/dL (Normal) Range: 8.5-10.1 BC 15.0 {RATIO} (Normal) Range: 10-20 CREAT 0.8 mg/dL (Normal) Range: 0.6-1.0 BUN 12 mg/dL (Normal) Range: 7-18 GLU 115 mg/dL (Abnormal) Range: 70-110 Comments: Fasting Glucose result from 110 to <126 mg/dL suggests IMPAIRED HOMEOSTASIS per A.D.A. criteria. :37 PT INR 2.1 (Normal) PTP 21.7 s (Abnormal) Range: 11.9-14.4 :20 PT INR 3.2 (Normal) PTP 30.3 s (Abnormal) Range: 11.9-14.4 :57 CBCMD RBCM NORM C+C {NORMAL} (Normal) BAS 1 % (Normal) Range: 0-1 PE ADEQUATE (Normal) EOS 1 % (Normal) Range: 0-5 MON 3 % (Normal) Range: 0-10 LYMPH 39 % (Normal) Range: 19-41 PMN 56 % (Normal) Range: 47-70 DONELL 100 (Normal) ANC 3.7 3/uL (Normal) Range: 2.0-7.7 PLT 182 K/mm3 (Normal) Range: 150-450 MCHC 32.7 g/dL (Normal) Range: 32-36 RDW 13.4 % (Normal) Range: 11.6-14.6 MCH 31.3 pg (Normal) Range: 27.0-32.0 MCV 95.6 fL (Normal) Range: 81-99 HCT 39.7 % (Normal) Range: 37-47 HGB 13.0 g.dL (Normal) Range: 12.0-15.0 RBC 4.16 {M/mm3} (Abnormal) Range: 4.2-5.4 WBC 7.1 K/mm3 (Normal) Range: 4.4-11.0 :57 CMP CO2 29.0 mmol/L (Normal) Range: 21.0-32.0 GAP 8 (Normal) Range: 5-15 CL 102 mmol/L (Normal) Range: 98-107 K 4.0 mmol/L (Normal) Range: 3.5-5.1 NA 139 mmol/L (Normal) Range: 136-145 BIT 0.60 mg/dL (Normal) Range: 0.00-1.00 ALT 23 U/L (Normal) Range: 12-78 ALK 50 U/L (Normal) Range: 50-136 AST 19 U/L (Normal) Range: 15-37 CA 9.0 mg/dL (Normal) Range: 8.5-10.1 AG 0.9 {RATIO} (Normal) Range: 0.9-2.4 GLOB 3.9 g/dL (Normal) Range: 2.7-4.2 ALB 3.5 g/dL (Normal) Range: 3.4-5.0 BC 18.6 {RATIO} (Normal) Range: 10-20 TPROT 7.4 g/dL (Normal) Range: 6.4-8.2 BUN 13 mg/dL (Normal) Range: 7-18 CREAT 0.7 mg/dL (Normal) Range: 0.6-1.0 GLU 91 mg/dL (Normal) Range: 70-110 :57 LIPID HDL 72 mg/dL (Normal) Comments: Reference Range HDL <40 mg/dL Low HDL Cholesterol HDL >or= 60 mg/dL High HDL Cholesterol LDL 70 mg/dL (Normal) Range: 0-130 VLDL 23 mg/dL (Normal) Range: 5-40 CHOL 165 mg/dL (Normal) Comments: <200 mg/dL Desirable 200-240 mg/dL Borderline >240 mg/dL High Risk TRIG 116 mg/dL (Normal) Comments: Serum Triglycerides Reference Interval Normal <150 mg/dL Borderline high 150 - 199 mg/dL High 200 - 499 mg/dL Very High > or = 500 mg/dL :57 MIACRE tMICROCREAT 62.2 {mg/g_CRE} (Abnormal) MIALB 25.7 mg/L (Normal) CREU 41.3 mg/dL (Normal) :57 VITD 55.0 ng/mL (Normal) Range: 30.0-100.0 Comments: Vitamin D deficiency has been defined by the [place] ofMedicine and an Endocrine Society practice guideline as alevel of serum 25-OH vitamin D less than 20 ng/mL (1,2).The Endocrine Society went on to further define vitamin Dinsufficiency as a level between 21 and 29 ng/mL (2).1. IOM ([place] of Medicine). 2010. Dietary reference intakes for calcium and D. [place]: The National Academies Press.2. Tono MF, Jonatan DYER, Fabiola HUANG et al. Evaluation, treatment, and prevention of vitamin D deficiency: an Endocrine Society clinical practice guideline. JCEM. 2010; 96(7): 1911-30.Performed at: [address] [id number] Director: Tyrese Arora PhD, Phone: [phone] PT INR 2.7 (Normal) PTP 26.4 s (Abnormal) Range: 11.9-14.4 :28 PT INR 1.6 (Normal) PTP 17.8 s (Abnormal) Range: 11.9-14.4 :04 PT INR 2.2 (Normal) PTP 22.8 s (Abnormal) Range: 11.9-14.4 :10 PT INR 1.8 (Normal) PTP 19.2 s (Abnormal) Range: 11.9-14.4 :32 PT INR 2.1 (Normal) PTP 21.9 s (Abnormal) Range: 11.9-14.4 :10 PT INR 2.9 (Normal) PTP 27.5 s (Abnormal) Range: 11.9-14.4 :29 PT INR 3.8 (Abnormal) Comments: RESULTS CALLED TO DIMA AT DR ENRIQUE'S002/20/12 1304 MELISSA BATEMAN.REPORT READ BACK BY SAME . PTP 34.2 s (Abnormal) Range: 11.9-14.4 :28 HgA1C , Office (40288) HgA1C , Office 6.1 % (Normal) Range: 4.6 - 7.1 :28 Blood Glucose , Office (10316) Blood Glucose , Office 154 (Normal) [id number] PT INR 2.5 (Normal) PTP 25.2 s (Abnormal) Range: 11.9-14.4 :46 BILAT SCRN DIGITAL & CAD Radiology Report See Note (Normal) Comments: MAMMOGRAPHY - BILATERAL SCREENING REASON FOR EXAM: Female, 71 years old. Routine annual screeningexamination. PERTINENT HISTORY: Non-contributory. TECHNIQUE: Digital examination. Med iolateral ob lique (MLO) andcraniocaudad (CC) views of both breasts were obtained. CAD: CAD wasperformed on this study. COMPARISON: Comparison is made with prior studies dated December 202009. FINDIN GS:The breast composition is composed of scattered fibroglandular densities. There are no dominant masses or suspicious calcifications. No other significant abnormalities are identified. There has been nosignificant change since the prior study. IMPRESSION:Stable bilateral screening mammogram. Yearly follow-up recommended. (A) ASSESSMENT CATEGORY:BIRADS Category 2: Benign finding(s). A letter re garding these resultswill be sent to the patient by the facility within 30 days. Approximately 10% of breast cancers are not detected by mammography. Anormal mammogram should not delay biopsy of a clin ically suspiciousabnormality. Signed:Sergio Perea M.D.January 30, 2012 at 12:54:04 PM [id number] Signed GP/GP If you are the referring physician and would like to consult with t heradiologist who provided this interpretation, please contact Taz Morrison at [phone]. If this radiologist is unavailable, youwill be directed to another radiologist to assist. If you a re a patient with a question regarding this report, pleasecontactyour referring physician directly. Professional Interpretation Provided By: [employer], Phone , These docu ments contain legally protected and confidential healthinformation intended only for the use of the individual or entity namedabove. If you are not the intended recipient, you are hereby notifiedthatany disclosure, copying, distribution, or other use of these documents isstrictly prohibited. If you have received this information in error,pleasenotify the sender immediately and arrange for the return o r destructionofthese documents. Dictated on 01/30/12 1146 by Spencer Perea MDribed on 01/30/12 1431 by ITS IMPORTSign by Sergio Perea MD on 01/30/12 1432 Sign by: Eliazar BAUTISTA,Sergio [id number] PT Comments: standing order INR 3.5 (Normal) PTP 32.2 s (Abnormal) Range: 11.9-14.4 [id number]:51 PT INR 2.6 (Normal) PTP 25.9 s (Abnormal) Range: 11.9-14.4 :41 AORTA Radiology Report See Note (Normal) Comments: History: Abdominal pain Findings: Real-time grayscale and color Doppler examination of abdominalaorta was performed as per standard protocol. No prior exam is available for comparison. Atherosclerotic p laques were noted at mid and distal abdomen aorta,however, no evidence of aortic aneurysmal dilatation. Proximal aorta measured 2.2 x 2.7 cm and mid abdomen aorta measured 2.4 x2.3 cm and distal aorta m easured 2.3 x 2.4 cm. Distal aorta lumenmeasuredapproximately 1.5 cm due to prominent plaque . Iliac arteries were not bevisualized due to bowel gas. IMPRESSION: Diffuse atherosclerotic disease at mid a nd distal abdomenaortawith prominent atherosclerotic plaques. No evidence of aneurysmaldilatation. Signed:Brian Alvarez M.D.December 26, 2011 at 10:00:06 AM [phone] Signed RB/RB If y ou are the referring physician and would like to consult with theradiologist who provided this interpretation, please contact Brian Alvarez M.D. at . If this radiologist is unavailable, you will bedirected to another radiologist to assist. If you are a patient with a question regarding this report, pleasecontactyour referring physician directly. Professional Interpretation Provided By: R bertramisphhelena, Phone , Dictated on 12/26/11 0846 by Lana Alvarez MDribed on 12/26/11 1005 by ITS IMPORTSign by Brian Alvarez MD on 12/26/11 1006 Sign by: Brian Alvarez MD :15 PT INR 1.9 (Normal) PTP 20.2 s (Abnormal) Range: 11.9-14.4 :46 HgA1C , Office (17322) HgA1C , Office 6.5 % (Normal) Range: 4.6 - 7.1 :46 Blood Glucose , Office (35634) Blood Glucose , Office 107 (Normal) :14 CMP GAP 8 (Normal) Range: 5-15 CO2 21.0 mmol/L (Normal) Range: 21.0-32.0 CL 106 mmol/L (Normal) Range: 98-107 K 4.6 mmol/L (Normal) Range: 3.5-5.1 NA 135 mmol/L (Abnormal) Range: 136-145 BIT 0.70 mg/dL (Normal) Range: 0.00-1.00 ALT 22 U/L (Normal) Range: 12-78 ALK 46 U/L (Abnormal) Range: 50-136 AST 24 U/L (Normal) Range: 15-37 CA 9.3 mg/dL (Normal) Range: 8.5-10.1 AG 0.8 {RATIO} (Abnormal) Range: 0.9-2.4 GLOB 4.3 g/dL (Abnormal) Range: 2.7-4.2 ALB 3.3 g/dL (Abnormal) Range: 3.4-5.0 TPROT 7.6 g/dL (Normal) Range: 6.4-8.2 BC 25.7 {RATIO} (Abnormal) Range: 10-20 CREAT 0.7 mg/dL (Normal) Range: 0.6-1.0 BUN 18 mg/dL (Normal) Range: 7-18 GLU 85 mg/dL (Normal) Range: 70-110 :14 LIPID VLDL 15 mg/dL (Normal) Range: 5-40 LDL 57 mg/dL (Normal) Range: 0-130 HDL 72 mg/dL (Normal) Comments: Reference Range HDL <40 mg/dL Low HDL Cholesterol HDL >or= 60 mg/dL High HDL Cholesterol TRIG 75 mg/dL (Normal) Comments: Serum Triglycerides Reference Interval Normal <150 mg/dL Borderline high 150 - 199 mg/dL High 200 - 499 mg/dL Very High > or = 500 mg/dL CHOL 144 mg/dL (Normal) Comments: <200 mg/dL Desirable 200-240 mg/dL Borderline >240 mg/dL High Risk :14 PT INR 2.2 (Normal) PTP 22.3 s (Abnormal) Range: 11.9-14.4 :36 PT INR 3.0 (Normal) PTP 29.5 s (Abnormal) Range: 11.9-14.4 :50 PT INR 2.6 (Normal) PTP 26.7 s (Abnormal) Range: 11.9-14.4 :05 PT INR 3.8 (Abnormal) Comments: RESULTS CALLED TO Parul BRUNER 08/24/11 0923 SHAYLA LEPE.REPORT READ BACK BY SAME . PTP 35.2 s (Abnormal) Range: 11.9-14.4 :14 HgA1C , Office (33193) HgA1C , Office 7.2 % (Abnormal) Range: 4.6 - 7.1 :14 Blood Glucose , Office (50716) Blood Glucose , Office 126 (Normal) :12 PRO TIME INR 2.9 (Normal) PROTIME 28.7 s (Abnormal) Range: 11.9-14.4 :22 CBCD,SMEAR DIFF RED CELL MORPH SeeNote {NORMAL} (Normal) Comments: Result: NORM C+C PLT EST SeeNote (Normal) Comments: Result: ADEQUATE BASOPHIL 1 % (Normal) Range: 0-1 MONOCYTE 9 % (Normal) Range: 0-10 LYMPH 25 % (Normal) Range: 19-41 SEGS 65 % (Normal) Range: 47-70 CELLS COUNTED 100 (Normal) ABSOLUTE NEUT 4.0 3/uL (Normal) Range: 2.0-7.7 PLT 187 K/mm3 (Normal) Range: 150-450 RDW 13.1 % (Normal) Range: 11.6-14.6 MCHC 33.7 g/dL (Normal) Range: 32-36 MCH 30.9 pg (Normal) Range: 27.0-32.0 MCV 91.6 fL (Normal) Range: 81-99 HCT 39.0 % (Normal) Range: 37-47 HGB 13.1 g/dL (Normal) Range: 12.0-16.0 RBC 4.25 {M/mm3} (Normal) Range: 4.2-5.4 WBC 7.4 K/mm3 (Normal) Range: 4.4-11.0 :22 COMP METABOLIC GAP 8 (Normal) Range: 5-15 CO2 29.0 mmol/L (Normal) Range: 21.0-32.0 CL 103 mmol/L (Normal) Range: 98-107 K 4.3 mmol/L (Normal) Range: 3.5-5.1 NA 140 mmol/L (Normal) Range: 136-145 T BILI 0.60 mg/dL (Normal) Range: 0.00-1.00 ALT 22 U/L (Normal) Range: 12-78 ALK P 60 U/L (Normal) Range: 50-136 AST 18 U/L (Normal) Range: 15-37 CA 8.7 mg/dL (Normal) Range: 8.5-10.1 A/G 0.8 {RATIO} (Abnormal) Range: 0.9-2.4 GLOB 4.1 g/dL (Normal) Range: 2.7-4.2 ALB 3.4 g/dL (Normal) Range: 3.4-5.0 T PROT 7.5 g/dL (Normal) Range: 6.4-8.2 BUN/CRE 20.0 {RATIO} (Normal) Range: 10-20 CREAT,SERUM 0.6 mg/dL (Normal) Range: 0.6-1.0 BUN 12 mg/dL (Normal) Range: 7-18 GLU 110 mg/dL (Normal) Range: 70-110 Comments: Fasting Glucose result from 110 to <126 mg/dL suggests IMPAIRED HOMEOSTASIS per A.D.A. criteria. :22 LIPID VLDL 25 mg/dL (Normal) Range: 5-40 HDL 62 mg/dL (Normal) Comments: Reference Range HDL <40 mg/dL Low HDL Cholesterol HDL >or= 60 mg/dL High HDL Cholesterol LDL 113 mg/dL (Normal) Range: 0-130 TRIG 125 mg/dL (Normal) Comments: Serum Triglycerides Reference Interval Normal <150 mg/dL Borderline high 150 - 199 mg/dL High 200 - 499 mg/dL Very High > or = 500 mg/dL CHOL 200 mg/dL (Normal) Comments: <200 mg/dL Desirable 200-240 mg/dL Borderline >240 mg/dL High Risk :22 MICROALB:CRE UR MALB:CREAT 7.9 {mg/g_CRE} (Normal) MICROALBUMIN,UR 7.0 mg/L (Normal) UR CREAT 88.0 mg/dL (Normal) :22 PRO TIME INR 2.5 (Normal) PROTIME 26.2 s (Abnormal) Range: 11.9-14.4 :22 VIT D,25 17530 45.9 ng/mL (Normal) Range: 30.0-100.0 Comments: Vitamin D deficiency has been defined by the [place] ofMedicine and an Endocrine Society practice guideline as alevel of serum 25-OH vitamin D less than 20 ng/mL (1,2).The Endocrine Society went on to further define vitamin Dinsufficiency as a level between 21 and 29 ng/mL (2).1. IOM ([place] of Medicine). 2011. Dietary reference intakes for calcium and D. [place]: The National Academies Press.2. Tono MF, Jonatan NC, Zach-Clifton HUANG, et al. Evaluation, treatment, and prevention of vitamin D deficiency: an Endocrine Society clinical practice guideline. JCEM. 2010; 96(7): 1911-30.Performed at: [facility] Lab[address] [id number] Director: Kathleen Lorenzo MD, Phone: [phone] :[phone] PRO TIME INR 2.6 (Normal) PROTIME 26.9 s (Abnormal) Range: 11.9-14.4 :18 PRO TIME INR 1.8 (Normal) PROTIME 20.1 s (Abnormal) Range: 11.9-14.4 :04 HgA1C , Office (23408) HgA1C , Office 5.9 % (Normal) Range: 4.6 - 7.1 :04 Blood Glucose , Office (24763) Blood Glucose , Office 101 (Normal) :12 PRO TIME INR 2.0 (Normal) PROTIME 22.1 s (Abnormal) Range: 11.9-14.4 :12 PRO TIME INR 2.1 (Normal) PROTIME 23.0 s (Abnormal) Range: 11.9-14.4 :46 CBCD ABSOLUTE NEUT 5.4 3/uL (Normal) Range: 2.0-7.7 BASO% 0.6 % (Normal) Range: 0-1 EO% 2.3 % (Normal) Range: 0-5 MONO% 8.3 % (Normal) Range: 0-10 LY% 30.2 % (Normal) Range: 19-41 NEUT% 58.6 % (Normal) Range: 47-70 MPV 9.7 fL (Normal) Range: 6.5-12.0 PLT 204 K/mm3 (Normal) Range: 150-450 RDW 13.7 % (Normal) Range: 11.6-14.6 MCHC 33.3 g/dL (Normal) Range: 32-36 MCH 31.5 pg (Normal) Range: 27.0-32.0 MCV 94.6 fL (Normal) Range: 81-99 HCT 37.7 % (Normal) Range: 37-47 HGB 12.5 g/dL (Normal) Range: 12.0-16.0 RBC 3.98 {M/mm3} (Abnormal) Range: 4.2-5.4 WBC 9.2 K/mm3 (Normal) Range: 4.4-11.0 :46 PRO TIME INR 1.6 (Normal) PROTIME 18.8 s (Abnormal) Range: 11.9-14.4 :10 PRO TIME INR 1.9 (Normal) PROTIME 21.4 s (Abnormal) Range: 11.9-14.4 :27 PRO TIME INR 5.4 (Abnormal) PROTIME 46.0 s (Abnormal) Range: 11.9-14.4 :23 PRO TIME INR 7.1 (Abnormal) PROTIME 56.4 s (Abnormal) Range: 11.9-14.4 :14 PRO TIME INR 2.8 (Normal) PROTIME 28.0 s (Abnormal) Range: 11.9-14.4 :58 PRO TIME INR 1.8 (Normal) PROTIME 20.4 s (Abnormal) Range: 11.9-14.4 :30 HgA1C , Office (08442) HgA1C , Office 6.4 % (Normal) Range: 4.6 - 7.1 C difficile Toxins Negative (Normal) Comments: PERFORMED BY: [address] [id number] :06 A+B, EIA Occult Blood, Fecal, Negative (Normal) Comments: PERFORMED BY: [address] [id number] :06 IA :06 Ova + Parasite Exam Comments: PERFORMED BY: [facility] [place] [address] [id number] Result 1 NOCP (Normal) Comments: No ova, cysts, or parasites seen. Ova + Parasite Exam Final report (Normal) Comments: These results were obtained using wet preparation(s) and trichromestained smear. This test does not include testing for Cryptosporidiumparvum, Cyclospora, or Microsporidia. :06 Stool Culture Comments: PERFORMED BY: [address] [id number] Information: SRC:ST E coli Shiga Toxin EIA Negative (Normal) Result 1 NCI (Normal) Comments: No Campylobacter species isolated. Campylobacter Culture Final report (Normal) Result 1 NSS (Normal) Comments: No Salmonella or Shigella recovered. Salmonella/Shigella Screen Final report (Normal) :06 White Blood Cells (WBC), Comments: PERFORMED BY: [address] [id number] Stool Result 1 NWBC (Normal) Comments: No white blood cells seen. White Blood Cells (WBC), Final report (Normal) Comments: Reference Range: None Seen Stool :25 KNEE,4 OR MORE VIEWS Radiology Report See Note (Normal) Comments: PROCEDURES: X-RAY - RIGHT KNEE REASON FOR EXAM: Female, 70 years old. Lower leg pain, anterior andlateral TECHNIQUE: Four views of the knee. COMPARISON: None. FINDINGS:Normal medial femorotibia l compartment. There is mild degenerativearthrosis of the lateral femorotibial compartment. There is moderatedegenerative arthrosis of the patellofemoral articulation. Normal visualized distal femur. Normal visualized proximal tibia andfibula. Normal proximal tibiofibular articulation. 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 Lower leg pain, anterior andlateral TECHNIQUE: Four views of the knee. COMPARISON: None. FINDINGS:Normal medial femorotibial compartment. Normal lateral femorotibialcompartment. There is moderate degenerative arthrosis of thepatellofemoral articulation. Normal visualized distal femur. Normal visualized proximal tibia andf ibula. Normal proximal tibiofibular articulation. IMPRESSION:Moderate arthrosis of the patellofemoral joint Dictated on 01/06/111438 by Tommy Rothman MDTranscribed on 01/06/111549 by ITS IMPORTSi gn by Tommy Rothman MD on 01/06/111549 Sign by: Tommy Rothman MD :00 L/S SPINE,MIN 4 VIEWS Radiology Report See Note (Normal) Comments: PROCEDURE: X-RAY - LUMBAR SPINE REASON FOR EXAM: Female, 70 years old. Low back pain TECHNIQUE: Five views of the lumbar spine were obtained. COMPARISON: None FINDINGS:Normal lumbar lordosis. There is no substantial scoliosis. Normal lumbar vertebrae. Narrowed disk spaces are seen at L3-4, L4-5 and L5-S1. A vacuum sign isseen on each of these disks. End plate spondylosis minimal amount is s een throughout the entire lumbarspine. There is no facet arthrosis or foraminal compromise. The soft tissue structures are unremarkable. IMPRESSION:Degenerative disk disease L3-4, L4-5, and L5-S1. End p late spondylosis is seen throughout the entire lumbar spine minimalinamount. Dictated on 01/06/11 1439 by Keya Nava MDTranscribed on 01/06/11 2223 by ITS IMPORTSign by Keya Nava MD on 2223 Sign by: Keya Nava MD [id number]:42 BILAT SCRN DIGITAL & CAD Radiology Report See Note (Normal) Comments: MAMMOGRAPHY - BILATERAL SCREENING REASON FOR EXAM: Female, 70 years old. Routine annual screeningexamination. PERTINENT HISTORY: Non-contributory. TECHNIQUE: Digital examination. Me diolateral o blique (MLO) andcraniocaudad (CC) views of both breasts were obtained. CAD: CAD wasperformed on this study. COMPARISON: August 10, 2009, November 11, 2008, May 26, 2008 FINDINGS:The breast composition i s composed of scattered fibroglandular densities. There are no masses or suspicious microcalcifications. No other significant abnormalities are identified. IMPRESSION:Normal bilateral screening mammogra m. One year follow-up recommended. (A) ASSESSMENT CATEGORY:BIRADS Category 2: Benign finding(s). A letter regarding these resultswill be sent to the patient by the facility within 30 days. Approximat dhruv 10% of breast cancers are not detected by mammography. Anormal mammogram should not delay biopsy of a clinically suspiciousabnormality. Dictated on 12/20/10 1104 by Harper Wade MDTranscribed on 12/21/10 1516 by ITS IMPORTSign by Harper Wade MD on 12/21/10 1517 Sign by: Harper Wade MD :43 CBCD,SMEAR DIFF RED CELL MORPH SeeNote {NORMAL} (Normal) Comments: Result: NORM C+C EOS 2 % (Normal) Range: 0-5 PLT EST SeeNote (Normal) Comments: Result: ADEQUATE LYMPH 43 % (Abnormal) Range: 19-41 MONOCYTE 7 % (Normal) Range: 0-10 BAND 1 % (Normal) Range: 0-5 ABSOLUTE NEUT 3.1 3/uL (Normal) Range: 2.0-7.7 CELLS COUNTED 100 (Normal) PLT 153 K/mm3 (Normal) Range: 150-450 SEGS 47 % (Normal) Range: 47-70 MCH 32.1 pg (Abnormal) Range: 27.0-32.0 MCHC 34.1 g/dL (Normal) Range: 32-36 RDW 12.9 % (Normal) Range: 11.6-14.6 HCT 38.9 % (Normal) Range: 37-47 MCV 93.9 fL (Normal) Range: 81-99 HGB 13.3 g/dL (Normal) Range: 12.0-16.0 RBC 4.15 {M/mm3} (Abnormal) Range: 4.2-5.4 WBC 7.0 K/mm3 (Normal) Range: 4.4-11.0 :43 COMP METABOLIC CO2 28.0 mmol/L (Normal) Range: 21.0-32.0 GAP 7 (Normal) Range: 5-15 CL 104 mmol/L (Normal) Range: 98-107 K 4.3 mmol/L (Normal) Range: 3.5-5.1 NA 139 mmol/L (Normal) Range: 136-145 T BILI 0.70 mg/dL (Normal) Range: 0.00-1.00 ALK P 51 U/L (Normal) Range: 50-136 ALT 28 U/L (Normal) Range: 12-78 A/G 0.9 {RATIO} (Normal) Range: 0.9-2.4 AST 18 U/L (Normal) Range: 15-37 CA 9.2 mg/dL (Normal) Range: 8.5-10.1 ALB 3.5 g/dL (Normal) Range: 3.4-5.0 GLOB 3.9 g/dL (Normal) Range: 2.7-4.2 T PROT 7.4 g/dL (Normal) Range: 6.4-8.2 BUN 14 mg/dL (Normal) Range: 7-18 BUN/CRE 17.5 {RATIO} (Normal) Range: 10-20 CREAT,SERUM 0.8 mg/dL (Normal) Range: 0.6-1.0 GLU 105 mg/dL (Normal) Range: 70-110 :43 LIPID HDL 56 mg/dL (Normal) Comments: Reference Range HDL <40 mg/dL Low HDL Cholesterol HDL >or= 60 mg/dL High HDL Cholesterol LDL 86 mg/dL (Normal) Range: 0-130 VLDL 26 mg/dL (Normal) Range: 5-40 CHOL 168 mg/dL (Normal) Comments: <200 mg/dL Desirable 200-240 mg/dL Borderline >240 mg/dL High Risk TRIG 131 mg/dL (Normal) Comments: Serum Triglycerides Reference Interval Normal <150 mg/dL Borderline high 150 - 199 mg/dL High 200 - 499 mg/dL Very High > or = 500 mg/dL :43 MICROALB:CRE UR MALB:CREAT 5.4 {mg/g_CRE} (Normal) MICROALBUMIN,UR 6.1 mg/L (Normal) UR CREAT 112.8 mg/dL (Normal) :43 VIT D,25 72079 38.3 ng/mL (Normal) Range: 32.0-100.0 Comments: Recent studies consider the lower limit of 32.0 ng/mL to gosia threshold for optimal health.Joseph NOEL. J Nutr. 2004;135(2):317-22.Performed at: [facility] [place] [address]Lab Director: Kathleen Lorenzo MD, Phone: [phone] [id number] CBCD,SMEAR DIFF PLT EST SeeNote (Normal) Comments: Result: ADEQUATE RED CELL MORPH SeeNote {NORMAL} (Normal) Comments: Result: NORM C+C EOS 3 % (Normal) Range: 0-5 MONOCYTE 8 % (Normal) Range: 0-10 BAND 1 % (Normal) Range: 0-5 CELLS COUNTED 100 (Normal) LYMPH 39 % (Normal) Range: 19-41 SEGS 49 % (Normal) Range: 47-70 ABSOLUTE NEUT 3.6 3/uL (Normal) Range: 2.0-7.7 MCHC 34.1 g/dL (Normal) Range: 32-36 PLT 157 K/mm3 (Normal) Range: 150-450 RDW 13.1 % (Normal) Range: 11.6-14.6 HCT 41.2 % (Normal) Range: 37-47 MCH 31.9 pg (Normal) Range: 27.0-32.0 MCV 93.7 fL (Normal) Range: 81-99 HGB 14.1 g/dL (Normal) Range: 12.0-16.0 RBC 4.40 {M/mm3} (Normal) Range: 4.2-5.4 WBC 7.1 K/mm3 (Normal) Range: 4.4-11.0 [id number]:14 COMP METABOLIC CO2 28.0 mmol/L (Normal) Range: 21.0-32.0 GAP 11 (Normal) Range: 5-15 CL 106 mmol/L (Normal) Range: 98-107 K 4.2 mmol/L (Normal) Range: 3.5-5.1 NA 145 mmol/L (Normal) Range: 136-145 T BILI 0.70 mg/dL (Normal) Range: 0.00-1.00 ALK P 58 U/L (Normal) Range: 50-136 ALT 24 U/L (Normal) Range: 12-78 AST 19 U/L (Normal) Range: 15-37 A/G 0.9 {RATIO} (Normal) Range: 0.9-2.4 CA 9.7 mg/dL (Normal) Range: 8.5-10.1 ALB 3.6 g/dL (Normal) Range: 3.4-5.0 GLOB 4.2 g/dL (Normal) Range: 2.7-4.2 T PROT 7.8 g/dL (Normal) Range: 6.4-8.2 BUN/CRE 18.6 {RATIO} (Normal) Range: 10-20 CREAT,SERUM 0.7 mg/dL (Normal) Range: 0.6-1.0 BUN 13 mg/dL (Normal) Range: 7-18 GLU 104 mg/dL (Normal) Range: 70-110 [id number]:14 LIPID VLDL 23 mg/dL (Normal) Range: 5-40 HDL 70 mg/dL (Normal) Comments: Reference Range HDL <40 mg/dL Low HDL Cholesterol HDL >or= 60 mg/dL High HDL Cholesterol LDL 85 mg/dL (Normal) Range: 0-130 TRIG 115 mg/dL (Normal) Comments: Serum Triglycerides Reference Interval Normal <150 mg/dL Borderline high 150 - 199 mg/dL High 200 - 499 mg/dL Very High > or = 500 mg/dL CHOL 178 mg/dL (Normal) Comments: <200 mg/dL Desirable 200-240 mg/dL Borderline >240 mg/dL High Risk :14 MICROALB:CRE UR MALB:CREAT 8.0 {mg/g_CRE} (Normal) MICROALBUMIN,UR 5.7 mg/L (Normal) UR CREAT 71.2 mg/dL (Normal) :14 VIT D,25 91242 39.1 ng/mL (Normal) Range: 32.0-100.0 Comments: Recent studies consider the lower limit of 32.0 ng/mL to gosia threshold for optimal health.Joseph NOEL. J Nutr. 2004;135(2):317-22.Performed at: [facility] [place] [address]Lab Director: Kathleen Lorenzo MD, Phone: [phone] [id number]:36 HgA1C , Office (03556) HgA1C , Office 7.5 % (Abnormal) Range: 4.6 - 7.1 :36 Blood Glucose , Office (60610) Blood Glucose , Office 108 (Normal) :41 COMP METABOLIC ALT 24 U/L (Normal) Range: 12-78 CL 104 mmol/L (Normal) Range: 98-107 CO2 28.0 mmol/L (Normal) Range: 21.0-32.0 GAP 5 (Normal) Range: 5-15 K 4.0 mmol/L (Normal) Range: 3.5-5.1 NA 137 mmol/L (Normal) Range: 136-145 T BILI 0.60 mg/dL (Normal) Range: 0.00-1.00 A/G 0.8 {RATIO} (Abnormal) Range: 0.9-2.4 ALB 3.2 g/dL (Abnormal) Range: 3.4-5.0 ALK P 66 U/L (Normal) Range: 50-136 AST 17 U/L (Normal) Range: 15-37 BUN 13 mg/dL (Normal) Range: 7-18 BUN/CRE 16.3 {RATIO} (Normal) Range: 10-20 CA 8.9 mg/dL (Normal) Range: 8.5-10.1 CREAT,SERUM 0.8 mg/dL (Normal) Range: 0.6-1.0 EST GFR 75 mL/min (Normal) EST GFR - AA 91 mL/min (Normal) GLOB 3.9 g/dL (Normal) Range: 2.7-4.2 T PROT 7.1 g/dL (Normal) Range: 6.4-8.2 GLU 117 mg/dL (Abnormal) Range: 70-110 Comments: Fasting Glucose result from 110 to <126 mg/dLsuggests IMPAIRED HOMEOSTASIS per A.D.A. criteria. :41 LIPID CHOL 148 mg/dL (Normal) Comments: <200 mg/dL Eghaqnymv270-542 mg/dL Borderline>240 mg/dL High Risk HDL 62 mg/dL (Normal) Comments: Reference RangeHDL <40 mg/dL Low HDL CholesterolHDL >or= 60 mg/dL High HDL Cholesterol LDL 64 mg/dL (Normal) Range: 0-130 TRIG 109 mg/dL (Normal) Comments: Serum Triglycerides Reference IntervalNormal <150 mg/dLBorderline high 150 - 199 mg/dLHigh 200 - 499 mg/ dLVery High > or = 500 mg/dL VLDL 22 mg/dL (Normal) Range: 5-40 :41 MICROALB:CRE UR MALB:CREAT 6.3 {mg/g_CRE} (Normal) MICROALBUMIN,UR 5.0 mg/L (Normal) UR CREAT 78.4 mg/dL (Normal) :41 VIT D,25 41443 37.9 ng/mL (Normal) Range: 32.0-100.0 Comments: Recent studies consider the lower limit of 32.0 ng/mL to gosia threshold for optimal health.Joseph NOEL. J Nutr. 2004;135(2):317-22.Performed at: - [facility] [id number]Lab Director: Kathleen Lorenzo MD, Phone: [phone] [id number]:54 Blood Glucose , Office (71561) Blood Glucose , Office 97 (Normal) :53 HgA1C , Office (20063) HgA1C , Office 7.1 % (Normal) Range: 4.6 - 7.1 :43 LIVER ALB 3.4 g/dL (Normal) Range: 3.4-5.0 ALK P 62 U/L (Normal) Range: 50-136 ALT 24 U/L (Normal) Range: 12-78 AST 16 U/L (Normal) Range: 15-37 D BILI 0.14 mg/dL (Normal) Range: 0.00-0.30 T BILI 0.60 mg/dL (Normal) Range: 0.00-1.00 T PROT 7.2 g/dL (Normal) Range: 6.4-8.2 :06 LIPID HDL 56 mg/dL (Normal) Comments: Reference RangeHDL <40 mg/dL Low HDL CholesterolHDL >or= 60 mg/dL High HDL Cholesterol LDL 83 mg/dL (Normal) Range: 0-130 VLDL 21 mg/dL (Normal) Range: 5-40 CHOL 160 mg/dL (Normal) Comments: <200 mg/dL Tdlhoutmv131-007 mg/dL Borderline>240 mg/dL High Risk TRIG 105 mg/dL (Normal) Comments: Serum Triglycerides Reference IntervalNormal <150 mg/dLBorderline high 150 - 199 mg/dLHigh 200 - 499 mg/ dLVery High > or = 500 mg/dL :06 LIVER ALB 3.3 g/dL (Abnormal) Range: 3.4-5.0 ALK P 58 U/L (Normal) Range: 50-136 ALT 22 U/L (Normal) Range: 12-78 AST 27 U/L (Normal) Range: 15-37 D BILI 0.12 mg/dL (Normal) Range: 0.00-0.30 T BILI 0.60 mg/dL (Normal) Range: 0.00-1.00 T PROT 7.2 g/dL (Normal) Range: 6.4-8.2 :06 TSH 0.87 {uIU/mL} (Normal) Range: 0.358-3.74 :55 BILAT SCRN DIGITAL & CAD Radiology Report See Note (Normal) Comments: Exam Number: [id number] MAMMOGRAM, BILATERAL SCREENING DIGITAL AND CAD HISTORYSix-month followup, abnormal mammogram. Full field digital images were obtained in mediolateral oblique andcraniocaudal proje ctions. CAD images were reviewed. Multiple smallmetal markers were placed on moles which are seen on both sides. There is a mild to moderate extent of fibroglandular parenchymapresent. There is no sk in thickening or retraction, architecturaldistortion, or cluster of suspicious microcalcifications. The densityseen in the outer right breast on the examination of May, is not significantl y changed. There is an area of density inthe retroareolar area of the right breast which most likelycorresponds to the density seen in the outer half of the breast onprevious studies. There is no skin thickening or retraction,architectural distortion or cluster of suspicious microcalcifications.If there is no suspicious palpable abnormality, followup mammogram in1 year is recommended. IMPRESSIONTher e is no radiographic evidence of malignancy identified. FINAL ASSESSMENTBenign findings. BIRADS Category 2. A letter regarding these results has been sent to the patient. This interpretation was render ed by a radiologist certified under theMammography Quality Standards Act of 1992 (MQSA). The mammograms werealso examined with computer-aided detection software ([employer], [employer] Reported By: ZULEYKA LYMAN M.D. [id number] Blood Glucose , Office (01025) Blood Glucose , Office 128 (Normal) 13-Oty-75010:24 CBCD,SMEAR DIFF BAND 1 % (Normal) Range: 0-5 CELLS COUNTED 100 (Normal) EOS 6 % (Abnormal) Range: 0-5 HCT 39.9 % (Normal) Range: 37-47 HGB 13.0 g/dL (Normal) Range: 12.0-16.0 LYMPH 40 % (Normal) Range: 19-41 MCH 30.9 pg (Normal) Range: 27.0-32.0 MCHC 32.6 g/dL (Normal) Range: 32-36 MCV 94.7 fL (Normal) Range: 81-99 MONOCYTE 8 % (Normal) Range: 0-10 PLT 172 K/mm3 (Normal) Range: 150-450 PLT EST SeeNote (Normal) Comments: Result: ADEQUATE RBC 4.21 {M/mm3} (Normal) Range: 4.2-5.4 RDW 12.9 % (Normal) Range: 11.6-14.6 RED CELL MORPH SeeNote {NORMAL} (Normal) Comments: Result: NORM C+C SEGS 45 % (Abnormal) Range: 47-70 WBC 7.8 K/mm3 (Normal) Range: 4.4-11.0 :24 COMP METABOLIC A/G 0.8 {RATIO} (Abnormal) Range: 0.9-2.4 ALB 3.4 g/dL (Normal) Range: 3.4-5.0 ALK P 55 U/L (Normal) Range: 50-136 ALT 23 U/L (Abnormal) Range: 30-65 AST 25 U/L (Normal) Range: 15-37 BUN 11 mg/dL (Normal) Range: 7-18 BUN/CRE 18.3 {RATIO} (Normal) Range: 10-20 CA 9.4 mg/dL (Normal) Range: 8.5-10.1 CL 99 mmol/L (Normal) Range: 98-107 CO2 29.0 mmol/L (Normal) Range: 21.0-32.0 CREAT,SERUM 0.6 mg/dL (Normal) Range: 0.6-1.0 EST GFR 105 mL/min (Normal) EST GFR - AA 127 mL/min (Normal) GAP 8 (Normal) Range: 5-15 GLOB 4.3 g/dL (Abnormal) Range: 2.7-4.2 K 4.2 mmol/L (Normal) Range: 3.5-5.1 NA 136 mmol/L (Normal) Range: 136-145 T BILI 0.60 mg/dL (Normal) Range: 0.00-1.00 T PROT 7.7 g/dL (Normal) Range: 6.4-8.2 GLU 116 mg/dL (Abnormal) Range: 70-110 Comments: Fasting Glucose result from 110 to <126 mg/dL suggests IMPAIRED HOMEOSTASIS per A.D.A. criteria. :24 LIPID CHOL 171 mg/dL (Normal) Comments: <200 mg/dL Desirable 200-240 mg/dL Borderline >240 mg/dL High Risk HDL 49 mg/dL (Normal) Comments: Reference Range HDL <40 mg/dL Low HDL Cholesterol HDL >or= 60 mg/dL High HDL Cholesterol LDL 91 mg/dL (Normal) Range: 0-130 TRIG 157 mg/dL (Normal) Comments: Serum Triglycerides Reference Interval Normal <150 mg/dL Borderline high 150 - 199 mg/dL High 200 - 499 mg/dL Very High > or = 500 mg/dL VLDL 31 mg/dL (Normal) Range: 5-40 :24 METHYLM [id number] 134 nmol/L (Normal) Comments: SPE Scanned image report available in PCI.See LAB REFERENCE RESULTS form. Range: 73-376 Comments: The reference range for methylmalonic acid has been set at+3sd above the mean for healthy blood bank donors. In theclinical assessment of patients with megaloblastic anemiasa cutoff of +3sd provides gre ater specificity in thediagnosis of the vitamin deficiency states, despite thesacrifice of some sensitivity. :24 MICROALB:CRE UR MALB:CREAT <TEST NOT PERFORMED> {mg/g_CRE} (Normal) MICROALBUMIN,UR < 5.0 mg/L (Normal) UR CREAT 79.1 mg/dL (Normal) :24 SPE [id number] Comments: SPE Scanned image report available in PCI.See LAB REFERENCE RESULTS form. A/G RATIO 1.1 (Normal) Range: 0.7-2.0 ALBUMIN 3.8 g/dL (Normal) Range: 3.2-5.6 ALPHA-1 GLOBUL 0.3 g/dL (Normal) Range: 0.1-0.4 ALPHA-2 GLOBUL 0.9 g/dL (Normal) Range: 0.4-1.2 BETA GLOBULIN 1.1 g/dL (Normal) Range: 0.6-1.3 GAMMA GLOBULIN 1.1 g/dL (Normal) Range: 0.5-1.6 GLOBULIN, TOTAL 3.4 g/dL (Normal) Range: 2.0-4.5 INTERPRETATION Comment (Normal) Comments: The SPE pattern appears essentially unremarkable. Evidenceof monoclonal protein is not apparent. M-SPIKE SeeNote g/dL (Normal) Comments: Result: Not Observed NOTE Comment (Normal) Comments: Protein electrophoresis scan will follow via computer,mail, or light rail signal technician delivery. PROTEIN,TOTAL 7.2 g/dL (Normal) Range: 6.0-8.5 :24 VIT D,25 31849 17.0 ng/mL (Abnormal) Comments: SPE Scanned image report available in PCI.See LAB REFERENCE RESULTS form. Range: 32.0-100.0 Comments: Recent studies consider the lower limit of 32.0 ng/mL to gosia threshold for optimal health.Joseph NOEL. J Nutr. 2004;135(2):317-22. :57 HgA1C , Office (82250) HgA1C , Office 7.3 % (Abnormal) Range: 4.6 - 7.1 :56 Blood Glucose , Office (13115) Blood Glucose , Office 144 (Normal) :52 COMP METABOLIC A/G 0.7 {RATIO} (Abnormal) Range: 0.9-2.4 ALB 3.0 g/dL (Abnormal) Range: 3.4-5.0 ALK P 66 U/L (Normal) Range: 50-136 ALT 33 U/L (Normal) Range: 30-65 AST 21 U/L (Normal) Range: 15-37 BUN 13 mg/dL (Normal) Range: 7-18 BUN/CRE 16.3 {RATIO} (Normal) Range: 10-20 CA 8.7 mg/dL (Normal) Range: 8.5-10.1 CL 107 mmol/L (Normal) Range: 98-107 CO2 26.0 mmol/L (Normal) Range: 21.0-32.0 CREAT,SERUM 0.8 mg/dL (Normal) Range: 0.6-1.0 EST GFR 76 mL/min (Normal) EST GFR - AA 92 mL/min (Normal) GAP 6 (Normal) Range: 5-15 GLOB 4.1 g/dL (Normal) Range: 2.7-4.2 GLU 120 mg/dL (Abnormal) Range: 70-110 Comments: Fasting Glucose result from 110 to <126 mg/dL suggests IMPAIRED HOMEOSTASIS per A.D.A. criteria. K 4.0 mmol/L (Normal) Range: 3.5-5.1 NA 139 mmol/L (Normal) Range: 136-145 T BILI 0.50 mg/dL (Normal) Range: 0.00-1.00 T PROT 7.1 g/dL (Normal) Range: 6.4-8.2 7-Jeferson-81229:52 LIPID CHOL 194 mg/dL (Normal) Comments: <200 mg/dL Desirable 200-240 mg/dL Borderline >240 mg/dL High Risk HDL 42 mg/dL (Normal) Comments: Reference Range HDL <40 mg/dL Low HDL Cholesterol HDL >or= 60 mg/dL High HDL Cholesterol LDL 110 mg/dL (Normal) Range: 0-130 TRIG 209 mg/dL (Abnormal) Comments: Serum Triglycerides Reference Interval Normal <150 mg/dL Borderline high 150 - 199 mg/dL High 200 - 499 mg/dL Very High > or = 500 mg/dL VLDL 42 mg/dL (Abnormal) Range: 5-40 [id number] [facility]AG DIGITAL & CAD Radiology Report See Note (Normal) Comments: Exam Number: [id number] MAMMOGRAM, UNILATERAL RIGHT DIAGNOSTIC DIGITAL AND CAD HISTORY6-month followup abnormal right mammogram. Full field digital images were obtained in mediolateral obli que andcrani ocaudal projections. Rolled craniocaudal and spot craniocaudalviews were also obtained. CAD images were reviewed. The current study is compared to the examinations of January 27, 2006,February 14, and May 20, 2008. There is moderately dense fibroglandular parenchyma present. Thereare 3 metal markers which are placed on moles which project on theright. There is no skin thickening or re traction, architecturaldistortion, or cluster of suspicious microcalcifications. The densityseen in the outer right breast May 20, 2008, is still present andunchanged. No new densities are identi fied. There are scatteredcalcifications present. There is no cluster of suspiciousmicrocalcifications seen. For further evaluation of this patient, abilateral screening mammogram in 6 months' time is recommended toreestablish the patient's screening schedule. IMPRESSIONThere is no change in the appearance of the small density seen in theouter right breast. Bilateral screening mammogram in 6 eboni hs issuggested to reestablish the patient's screening schedule. FINAL ASSESSMENTBenign findings. BIRADS Category 2. A letter regarding these results has been sent to the patient. This interpretati on was rendered by a radiologist certified under theMammography Quality Standards Act of 1992 (MQSA). The mammograms werealso examined with computer-aided detection software ([employer] Reported By: ZULEYKA LYMAN M.D. [id number] HgA1C , Office (18885) HgA1C , Office 6.6 % (Normal) Range: 4.6 - 7.1 [id number]:29 Blood Glucose , Office (32097) Blood Glucose , Office 115 (Normal) :53 LIPID CHOL 203 mg/dL (Abnormal) Comments: <200 mg/dL Desirable 200-240 mg/dL Borderline >240 mg/dL High Risk HDL 51 mg/dL (Normal) Comments: Reference Range HDL <40 mg/dL Low HDL Cholesterol HDL >or= 60 mg/dL High HDL Cholesterol LDL 126 mg/dL (Normal) Range: 0-130 TRIG 132 mg/dL (Normal) Comments: Serum Triglycerides Reference Interval Normal <150 mg/dL Borderline high 150 - 199 mg/dL High 200 - 499 mg/dL Very High > or = 500 mg/dL VLDL 26 mg/dL (Normal) Range: 5-40 :53 LIVER ALB 3.3 g/dL (Abnormal) Range: 3.4-5.0 ALK P 69 U/L (Normal) Range: 50-136 ALT 35 U/L (Normal) Range: 30-65 AST 23 U/L (Normal) Range: 15-37 D BILI 0.11 mg/dL (Normal) Range: 0.00-0.30 T BILI 0.56 mg/dL (Normal) Range: 0.00-1.00 T PROT 7.4 g/dL (Normal) Range: 6.4-8.2 [id number]:13 [facility] DIGITAL & CAD Radiology Report See Note (Normal) Comments: Exam Number: [id number] MAMMOGRAM, UNILATERAL RIGHT DIAGNOSTIC DIGITAL AND CAD HISTORYAbnormal screening study. Full field digital images were obtained in roll craniocaudal and spotcraniocaud al projectio ns. CAD images were reviewed. The current study is compared to the examinations of January 2005,January 2006, February 2007 and May 20, 2008. The density identified in the outer right breast in the craniocaudalview of May 20, 2008, appears smaller and less definite onadditional views. The appearance on the roll projections is similarto a density seen on the examination of February 14, 2007. Thisfinding, therefore, may represent superimposition or a density whichis smaller than suspected on the examination of May 20, 2008, andwhich was present February 14, 2007. If there is no suspi ciouspalpable abnormality, followup right mammogram in 6 months isrecommended. IMPRESSIONThe additional views demonstrate the density in the outer right breastto be variable in its position, in its appe arance. This appears lessfocal and may have been present February 14, 2007. If there is nosuspicious palpable abnormality, a right 6-month followup mammogram isrecommended. FINAL ASSESSMENTProbably b enign. BIRADS Category 3. A letter regarding these results has been sent to the patient. This interpretation was rendered by a radiologist certified under theMammography Quality Standards Act of 1992 (MQSA). The mammograms werealso examined with computer-aided detection software ([employer] Reported By: ZULEYKA LYMAN M.D. [id number] [facility] DIGITAL & CAD Radiology Report See Note (Normal) Comments: Exam Number: [id number] BILATERAL SCREENING MAMMOGRAM COMPARISONComparison is made to prior studies of February 14, 2007 and 2005. TECHNIQUERoutine MLO and CC views were acquired. FINDINGSTher e are scattered fibroglandular elements present. Benigncalcifications are shown in the left breast. There is a questionill-defined nodular density in the right breast shown on the CCprojection only. This measures approximately 7 mm and is shownlateral to the nipple in the mid depth. Further evaluation with spotcompression and rolled craniocaudal views would be suggested. Elsewhere no suspicious cl uster of calcification or area ofarchitectural distortion. No three-dimensional spiculated masses. IMPRESSION1. 7-mm nodular density shown on the CC projection of the right breast only. This appea rs new when compared to the prior study. Further evaluation with spot compression and rolled craniocaudal views would be suggested.2. BIRADS code 0. Incomplete. Followup with additional views o f the right breast. A letter regarding these results has been sent to the patient. This interpretation was rendered by a radiologist certified underthe Mammography Quality Standards Act of 1992 (MQSA). The mammogramswere also examined with computer-aided detection software([employer] Reported By: HARPER OLIVERA M.D. :38 Blood Glucose , Office (90039) Blood Glucose , Office 108 (Normal) :57 LIPID CHOL 214 mg/dL (Abnormal) Comments: <200 mg/dL Desirable 200-240 mg/dL Borderline >240 mg/dL High Risk HDL 42 mg/dL (Normal) Comments: Reference Range HDL <40 mg/dL Low HDL Cholesterol HDL >or= 60 mg/dL High HDL Cholesterol LDL 134 mg/dL (Abnormal) Range: 0-130 TRIG 190 mg/dL (Normal) Comments: Serum Triglycerides Reference Interval Normal <150 mg/dL Borderline high 150 - 199 mg/dL High 200 - 499 mg/dL Very High > or = 500 mg/dL VLDL 38 mg/dL (Normal) Range: 5-40 :57 LIVER ALB 3.4 g/dL (Normal) Range: 3.4-5.0 ALK P 68 U/L (Normal) Range: 50-136 ALT 38 U/L (Normal) Range: 30-65 AST 29 U/L (Normal) Range: 15-37 D BILI 0.09 mg/dL (Normal) Range: 0.00-0.30 T BILI 0.47 mg/dL (Normal) Range: 0.00-1.00 T PROT 7.4 g/dL (Normal) Range: 6.4-8.2 :42 HgA1C , Office (96183) HgA1C , Office 6.3 % (Normal) Range: 4.6 - 7.1 Comments: aw :42 CBCD,SMEAR DIFF BASOPHIL 1 % (Normal) Range: 0-1 CELLS COUNTED 100 (Normal) EOS 3 % (Normal) Range: 0-5 HCT 37.7 % (Normal) Range: 37-47 HGB 12.9 g/dL (Normal) Range: 12.0-16.0 LYMPH 29 % (Normal) Range: 19-41 MCH 30.6 pg (Normal) Range: 27.0-32.0 MCHC 34.1 g/dL (Normal) Range: 32-36 MCV 89.7 fL (Normal) Range: 81-99 MONOCYTE 13 % (Abnormal) Range: 0-10 PLT 176 K/mm3 (Normal) Range: 150-450 PLT EST SeeNote (Normal) Comments: Result: ADEQUATE RBC 4.20 {M/mm3} (Normal) Range: 4.2-5.4 RDW 13.4 % (Normal) Range: 11.6-14.6 RED CELL MORPH SeeNote {NORMAL} (Normal) Comments: Result: NORM C+C SEGS 54 % (Normal) Range: 47-70 WBC 6.0 K/mm3 (Normal) Range: 4.4-11.0 :42 COMP METABOLIC A/G 0.9 {RATIO} (Normal) Range: 0.9-2.4 ALB 3.4 g/dL (Normal) Range: 3.4-5.0 ALK P 66 U/L (Normal) Range: 50-136 ALT 36 [iU]/L (Normal) Range: 30-65 AST 26 U/L (Normal) Range: 15-37 BUN 16 mg/dL (Normal) Range: 7-18 BUN/CRE 22.9 {RATIO} (Abnormal) Range: 10-20 CA 9.0 mg/dL (Normal) Range: 8.5-10.1 CL 104 mmol/L (Normal) Range: 98-107 CO2 29.7 mmol/L (Normal) Range: 21.0-32.0 CREAT,SERUM 0.7 mg/dL (Normal) Range: 0.6-1.0 GAP 6 (Normal) Range: 5-15 GLOB 3.8 g/dL (Normal) Range: 2.7-4.2 GLU 95 mg/dL (Normal) Range: 70-110 K 4.5 mmol/L (Normal) Range: 3.5-5.1 NA 140 mmol/L (Normal) Range: 136-145 T BILI 0.46 mg/dL (Normal) Range: 0.00-1.00 T PROT 7.2 g/dL (Normal) Range: 6.4-8.2 :42 LIPID CHOL 195 mg/dL (Normal) Comments: <200 mg/dL Desirable 200-240 mg/dL Borderline >240 mg/dL High Risk HDL 48 mg/dL (Normal) Comments: Reference Range HDL <40 mg/dL Low HDL Cholesterol HDL >or= 60 mg/dL High HDL Cholesterol LDL 114 mg/dL (Normal) Range: 0-130 TRIG 167 mg/dL (Normal) Comments: Serum Triglycerides Reference Interval Normal <150 mg/dL Borderline high 150 - 199 mg/dL High 200 - 499 mg/dL Very High > or = 500 mg/dL VLDL 33 mg/dL (Normal) Range: 5-40 :42 MICROALB:CRE UR MALB:CREAT 4.3 {mg/g_CRE} (Normal) MICROALBUMIN,UR 5.1 mg/L (Normal) UR CREAT 117.3 mg/dL (Normal) :22 CBCD,SMEAR DIFF CELLS COUNTED 100 (Normal) EOS 3 % (Normal) Range: 0-5 HCT 35.7 % (Abnormal) Range: 37-47 HGB 12.2 g/dL (Normal) Range: 12.0-16.0 LYMPH 26 % (Normal) Range: 19-41 MCH 31.5 pg (Normal) Range: 27.0-32.0 MCHC 34.3 g/dL (Normal) Range: 32-36 MCV 91.9 fL (Normal) Range: 81-99 MONOCYTE 6 % (Normal) Range: 0-10 PLT 159 K/mm3 (Normal) Range: 150-450 PLT EST SeeNote (Normal) Comments: Result: ADEQUATE RBC 3.88 {M/mm3} (Abnormal) Range: 4.2-5.4 RDW 14.0 % (Normal) Range: 11.6-14.6 RED CELL MORPH SeeNote {NORMAL} (Normal) Comments: Result: NORM C&C SEGS 65 % (Normal) Range: 47-70 WBC 6.0 K/mm3 (Normal) Range: 4.4-11.0 :22 COMP METABOLIC A/G 0.9 {RATIO} (Normal) Range: 0.9-2.4 ALB 3.3 g/dL (Abnormal) Range: 3.4-5.0 ALK P 66 U/L (Normal) Range: 50-136 ALT 32 [iU]/L (Normal) Range: 30-65 AST 21 U/L (Normal) Range: 15-37 BUN 11 mg/dL (Normal) Range: 7-18 BUN/CRE 13.8 {RATIO} (Normal) Range: 10-20 CA 8.9 mg/dL (Normal) Range: 8.5-10.1 CL 103 mmol/L (Normal) Range: 98-107 CO2 31.1 mmol/L (Normal) Range: 21.0-32.0 Comments: Please Note Reference Interval Change CREAT,SERUM 0.8 mg/dL (Normal) Range: 0.6-1.0 GAP 6 (Normal) Range: 5-15 GLOB 3.5 g/dL (Normal) Range: 2.7-4.2 Comments: Please Note Reference Interval Change GLU 94 mg/dL (Normal) Range: 70-110 K 4.3 mmol/L (Normal) Range: 3.5-5.1 NA 140 mmol/L (Normal) Range: 136-145 T BILI 0.44 mg/dL (Normal) Range: 0.00-1.00 T PROT 6.8 g/dL (Normal) Range: 6.4-8.2 :22 LIPID CHOL 173 mg/dL (Normal) Comments: <200 mg/dL Desirable 200-240 mg/dL Borderline >240 mg/dL High Risk HDL 46 mg/dL (Normal) Comments: Reference Range HDL <40 mg/dL Low HDL Cholesterol HDL >or= 60 mg/dL High HDL Cholesterol LDL 97 mg/dL (Normal) Range: 0-130 TRIG 150 mg/dL (Normal) Comments: Serum Triglycerides Reference Interval Normal <150 mg/dL Borderline high 150 - 199 mg/dL High 200 - 499 mg/dL Very High > or = 500 mg/dL VLDL 30 mg/dL (Normal) Range: 5-40 :22 MICROALB:CRE UR MALB:CREAT 7.3 {mg/g_CRE} (Normal) MICROALBUMIN,UR 5.6 mg/L (Normal) UR CREAT 76.2 mg/dL (Normal) :19 Blood Glucose , Office (83844) Blood Glucose , Office 151 (Normal) Comments: :19 HgA1C , Office (62326) HgA1C , Office 6.0 % (Normal) Range: 4.6 - 7.1 Comments: opal [id number]-Wcl-[id number]:11 BREAST UNILATERAL US () Radiology Report See Note (Normal) Comments: Exam Number: [id number] TARGETED RIGHT BREAST ULTRASOUND High resolution real time linear images were obtained at 12:00 at thelevel of palpable abnormality reported by the ordering physician andin the up per outer quadrant of the breast where the patient reportedpain. No solid or cystic mass is seen. No displacement of softtissue planes is identified. IMPRESSIONThere is no ultrasound abnormality identified. Reported By: ZULEYKA LYMAN M.D. 13-[id number]:33 [facility] DIGITAL & CAD Radiology Report See Note (Normal) Comments: Exam Number: [id number] MAMMOGRAM, BILATERAL DIAGNOSTIC DIGITAL AND CAD HISTORYRoutine screening. Full field digital images were obtained in mediolateral oblique,craniocaudal and cleavage projections. C AD images were reviewed.Small metal markers were placed on moles which project on both sides. The current study is compared to the examinations of December 2003 andJanuary 2005. There is a mild extent of fib roglandular parenchyma present. No skin thickening or retraction, architectural distortion, or clusterof suspicious microcalcifications is identified. The areas ofclinical concern have been evaluated by ultrasound with no massesidentified. Based on the mammographic appearance of the breasts, noradiographic evidence of malignancy is identified. Failure todemonstrate a specific lesion should not del ay biopsy if there is aclinically palpable mass which is suspicious.Followup mammogram in 1 year is recommended. IMPRESSIONThere is no radiographic evidence of malignancy identified. FINAL ASSESSMENTBen ign findings. BIRADS Category 2. A letter regarding these results has been sent to the patient. This interpretation was rendered by a radiologist certified under theMammography Quality Standards Act o f 1992 (MQSA). The mammograms werealso examined with computer-aided detection software ([employer] Reported By: ZULEYKA LYMAN M.D. [id number]:16 DEXA BONE DENSITY STUDY () Radiology Report See Note (Normal) Comments: Exam Number: [id number] BONE DENSITOMETRY HISTORYPostmenopausal. TECHNIQUE Bone densitometry of the lumbar spine and left hip was performed. Thebest criteria for evaluation of osteoporosis is the T -value whichrepresents the comparison of the patient's bone mass to an expectedpeak bone mass. For most patients, the mean T-value of L1 through L4and the T-value of the total left hip are most useful. FINDINGSIn this patient, the mean T-value of L1 through L4 is 0.9. This iswithin normal limits. Digital lateral view for evaluation of vertebraldeformity only demonstrates no obvious compression fra ctures. Bonemineral density is measured at 3.4% greater than in 1999. The T-value of the left femoral neck is -0.4 which is normal. The T-value of the total left hip is 0.6 which is normal. Bone min eraldensity of the total left hip is measured at 8.4% less than in 1999. IMPRESSIONBone densitometry of the lumbar spine and total left hip are withinnormal limits. Reported By: ZULEYKA LYMAN M.D. 7-Wnd-891660:53 HgA1C , Office (96324) HgA1C , Office 5.8 % (Normal) Range: 4.6 - 7.1 6-Rfk-855983:53 Blood Glucose , Office (39494) Blood Glucose , Office 98 (Normal) 55-Cre-[id number]:00 CULTURE, URINE URINE CULTURE See Note {CFU/mL} (Normal) Comments: COLONY COUNT 11,000-25,000 ORGANISM 1: MIXED GRAM POS & NEG ORGANISMS 31-Fml-881485:57 Urinalysis, Office (17465) Comments: ABN signed UA - BILIRUBIN Negative (Normal) UA - BLOOD Negative (Normal) UA - GLUCOSE Negative (Normal) UA - KETONES Negative mg/dL (Normal) UA - LEUKOCYTE ESTERASE Trace (Normal) UA - NITRITE Negative (Normal) UA - PH 7.0 (Normal) UA - PROTEIN Negative mg/dL (Normal) UA - SPECIFIC GRAVITY 1.005 (Normal) URINE UROBILINGN HAIDER TIMED 2 mg/dL (Normal) 05-Rnf-13989:07 LIPID CHOL 166 mg/dL (Normal) Comments: <200 mg/dL Desirable 200-240 mg/dL Borderline >240 mg/dL High Risk HDL 46 mg/dL (Normal) Comments: Reference Range HDL <40 mg/dL Low HDL Cholesterol HDL >or= 60 mg/dL High HDL Cholesterol LDL 90 mg/dL (Normal) Range: 0-130 TRIG 151 mg/dL (Normal) Comments: Serum Triglycerides Reference Interval Normal <150 mg/dL Borderline high 150 - 199 mg/dL High 200 - 499 mg/dL Very High > or = 500 mg/dL VLDL 30 mg/dL (Normal) Range: 5-40 85-Rjj-84490:07 LIVER ALB 3.3 g/dL (Abnormal) Range: 3.4-5.0 ALK P 64 U/L (Normal) Range: 50-136 ALT 31 [iU]/L (Normal) Range: 30-65 AST 19 U/L (Normal) Range: 15-37 D BILI 0.15 mg/dL (Normal) Range: 0.00-0.30 T BILI 0.59 mg/dL (Normal) Range: 0.00-1.00 T PROT 7.2 g/dL (Normal) Range: 6.4-8.2 :21 Blood Glucose , Office (68557) Blood Glucose , Office 120 (Normal) :21 HgA1C , Office (28493) HgA1C , Office 5.6 % (Normal) Range: 4.6 - 7.1 Plan of Care Name Dates Details Instructions BMI 31.0-31.9,adult : Follow up as needed Indication: BMI 31.0-31.9,adult Encounter for Medicare annual wellness exam : fall reduction handout Indication: Encounter for Medicare annual wellness exam Encounter for Medicare annual wellness exam : elderly packet given Indication: Encounter for Medicare annual wellness exam Encounter for Medicare annual wellness exam : advance planning information Indication: Encounter for Medicare annual wellness exam Nonsmoker : Eprescribed prescriptions (G8553) Indication: Nonsmoker BMI 31.0-31.9,adult : Follow up in 3 months for Gen Med Indication: BMI 31.0-31.9,adult BMI 31.0-31.9,adult : Follow up in 1 month medicare physical Indication: BMI 31.0-31.9,adult Hypercholesteremia : Reviewed Lab Indication: Hypercholesteremia Diabetes mellitus type II, controlled : Reviewed Diagnostic Tests Indication: Diabetes mellitus type II, controlled Nonsmoker : Eprescribed prescriptions (G8553) Indication: Nonsmoker Nonsmoker : Follow up if no improvement or if symptoms worsen Indication: Nonsmoker Nonsmoker : Eprescribed prescriptions (G8553) Indication: Nonsmoker Abdominal pain : Follow up in 3 months Indication: Abdominal pain BMI 31.0-31.9,adult : Eprescribed prescriptions (G8553) Indication: BMI 31.0-31.9,adult Vitamin D deficiency, unspecified : Eprescribed prescriptions (G8553) Indication: Vitamin D deficiency, unspecified BMI 29.0-29.9,adult : Follow up in 3 months Indication: BMI 29.0-29.9,adult Thrush : Thrush: oral candidiasis Indication: Thrush Diabetes mellitus type II, controlled : Eprescribed prescriptions (G8553) Indication: Diabetes mellitus type II, controlled Cellulitis : Follow up in 3 months Indication: Cellulitis Diabetes mellitus type II, controlled : Eprescribed prescriptions (G8553) Indication: Diabetes mellitus type II, controlled Cellulitis of left lower leg : Follow up if no improvement or if symptoms worsen Indication: Cellulitis of left lower leg Cellulitis of left lower leg : Continue Current Prescription(s) Indication: Cellulitis of left lower leg Current nonsmoker (Renamed from Current non-smoker) : Eprescribed prescriptions (G8553) Indication: Current nonsmoker (Renamed from Current non-smoker) Cellulitis of left lower leg : 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 Indication: Cellulitis of left lower leg Current nonsmoker (Renamed from Current non-smoker) : Cellulitis: skin Indication: Current nonsmoker (Renamed from Current non-smoker) Current nonsmoker (Renamed from Current non-smoker) : Follow up if no improvement or if symptoms worsen Indication: Current nonsmoker (Renamed from Current non-smoker) Current nonsmoker (Renamed from Current non-smoker) : Eprescribed prescriptions (G8553) Indication: Current nonsmoker (Renamed from Current non-smoker) Hypercholesteremia : Reviewed Lab Indication: Hypercholesteremia Hypertension, benign : Reviewed Lab Indication: Hypertension, benign Current nonsmoker (Renamed from Current non-smoker) : Follow up in 3 months Indication: Current nonsmoker (Renamed from Current non-smoker) Diabetes mellitus type II, controlled : Eprescribed prescriptions (G8553) Indication: Diabetes mellitus type II, controlled Diabetes mellitus type II, controlled : Follow up in 3 months get labs prior to next visit Indication: Diabetes mellitus type II, controlled Diabetes mellitus type II, controlled : Eprescribed prescriptions (G8553) Indication: Diabetes mellitus type II, controlled Diabetes mellitus type II, controlled : Eprescribed prescriptions (G8553) Indication: Diabetes mellitus type II, controlled Bee sting, accidental or unintentional, initial encounter : Solu Medrol Injection/ Education Indication: Bee sting, accidental or unintentional, initial encounter Bleeding ulcer : Reviewed Lab Indication: Bleeding ulcer Vitamin D deficiency, unspecified : Reviewed Lab Indication: Vitamin D deficiency, unspecified Hypertension, benign : Reviewed Lab Indication: Hypertension, benign Irritable bowel syndrome : Reviewed Diagnostic Tests Indication: Irritable bowel syndrome GI bleed : Reviewed Lab Indication: GI bleed Hiatal hernia : Follow up in 3 months Indication: Hiatal hernia Diabetes mellitus type II, controlled : Eprescribed prescriptions (G8553) Indication: Diabetes mellitus type II, controlled Low back pain, episodic : Follow up in 1 week for UA and reassess back pain Indication: Low back pain, episodic Hematuria : Water in diet, brief version Indication: Hematuria Shoulder pain, right : Follow up after consult Indication: Shoulder pain, right BMI 33.0-33.9,adult : fall reduction handout Indication: BMI 33.0-33.9,adult BMI 33.0-33.9,adult : elderly packet given Indication: BMI 33.0-33.9,adult Encounter for Medicare annual wellness exam : advance planning information Indication: Encounter for Medicare annual wellness exam Encounter for Medicare annual wellness exam : Eprescribed prescriptions (G8553) Indication: Encounter for Medicare annual wellness exam Diabetes mellitus type II, controlled : Eprescribed prescriptions (G8553) Indication: Diabetes mellitus type II, controlled Encounter for Medicare annual wellness exam : Eprescribed prescriptions (G8553) Indication: Encounter for Medicare annual wellness exam Encounter for Medicare annual wellness exam : advance planning information Indication: Encounter for Medicare annual wellness exam VACCINE AGAINST INFLUENZA : Flu (Influenza) *: flu Indication: VACCINE AGAINST INFLUENZA VACCINE AGAINST INFLUENZA : Flu (Influenza) *: flu shot Indication: VACCINE AGAINST INFLUENZA Umbilical discharge : Follow up if no improvement or if symptoms worsen Indication: Umbilical discharge Diabetes mellitus type II, controlled : Diabetes and Exercise: Preventing Low Blood Sugar: blood sugar Indication: Diabetes mellitus type II, controlled Diabetes mellitus type II, controlled : Eprescribed prescriptions (G8553) Indication: Diabetes mellitus type II, controlled Encounter for Medicare annual wellness exam : Flu (Influenza) *: flu Indication: Encounter for Medicare annual wellness exam VACCINE AGAINST INFLUENZA : Flu (Influenza) *: flu shot Indication: VACCINE AGAINST INFLUENZA Cellulitis and abscess of leg : Continue Current Prescription(s) Indication: Cellulitis and abscess of leg Cellulitis and abscess of leg : Follow up in 2 days Indication: Cellulitis and abscess of leg Obesity : Diet, Exercise, and Wt loss Indication: Obesity Cellulitis and abscess of leg : Follow up tomorrow, as needed Indication: Cellulitis and abscess of leg Itching : Reviewed Lab Indication: Itching Itching : Itching: itch Indication: Itching Cellulitis and abscess of leg : Cellulitis: skin infection Indication: Cellulitis and abscess of leg Cellulitis and abscess of leg : Follow up if no improvement or if symptoms worsen Indication: Cellulitis and abscess of leg Hernia, umbilical : Follow up if no improvement or if symptoms worsen Indication: Hernia, umbilical Diabetes mellitus type II, controlled : Diabetes Overview (Living with Diabetes): diabetes type 2 Indication: Diabetes mellitus type II, controlled Bronchitis : *URI Treatment Indication: Bronchitis Bronchitis : *URI Symptoms Indication: Bronchitis Bronchitis : *Antibiotic Usage Education - Female Indication: Bronchitis Pain of lower leg, unspecified laterality : Knee Injections Indication: Pain of lower leg, unspecified laterality Diabetes mellitus type II, controlled : Follow up after lab work completed Indication: Diabetes mellitus type II, controlled Diabetes mellitus type II, controlled : Follow up in 3 months Indication: Diabetes mellitus type II, controlled Diabetes mellitus type II, controlled : Diabetes: The Importance of Exercise: type 2 diabetes Indication: Diabetes mellitus type II, controlled Joint pain : Knee Injections Indication: Joint pain Cellulitis and abscess of leg : Follow up in 1 week Indication: Cellulitis and abscess of leg Pain of lower leg, unspecified laterality : Knee Injections Indication: Pain of lower leg, unspecified laterality Diarrhea : *Abd Pain Red Flags Indication: Diarrhea Diarrhea : Diarrhea instructions Indication: Diarrhea Contact dermatitis and other eczema due to plants (except food) : FOLLOW UP IN 2 WEEKS Indication: Contact dermatitis and other eczema due to plants (except food) Pain of lower leg, unspecified laterality : FOLLOW UP IN 1 WEEK Indication: Pain of lower leg, unspecified laterality Diabetes mellitus type II, controlled : FOLLOW UP IN 6 WEEKS Indication: Diabetes mellitus type II, controlled Well woman exam with routine gynecological exam : Colon Cancer Screening Indication: Well woman exam with routine gynecological exam Well woman exam with routine gynecological exam : Pap/Pelvic/Bimanual/Rectal/Breast Exam was done. Indication: Well woman exam with routine gynecological exam Well woman exam with routine gynecological exam : Self Breast Exam Education Indication: Well woman exam with routine gynecological exam Well woman exam with routine gynecological exam : Well Female Maintenance (KF) Indication: Well woman exam with routine gynecological exam Diabetes mellitus type II, controlled : FOLLOW UP IN 6 MONTHS Indication: Diabetes mellitus type II, controlled Planned Observations CALCIFEDIOL (78721)Indication: Vitamin D deficiency, unspecified On: 75-Uap-139564:06 Request HgA1C , Office ([id number])Indication: Diabetes mellitus type II, controlled On: :02 Request Blood Glucose , Office ([id number])Indication: Diabetes mellitus type II, controlled On: 79-Fau-752770:02 Request Metabolic Panel, Basic (36424)Indication: Abdominal pain On: 5-Gdu-538889:30 Request CBC, Platelets & Auto Diff ([id number])Indication: Abdominal pain On: :29 Request CBC WITH MANUAL DIFF ([id number])Indication: Anemia On: 19-Euw-321256:56 Request CBC WITH MANUAL DIFF ([id number])Indication: Bleeding ulcer On: 01-Cvj-830931:49 Request URINALYSIS, W/ MICRO (52713)Indication: Hypertension, benign On: :21 Request METABOLIC PANEL, COMPREHENSIVE (55276)Indication: Hypertension, benign On: :21 Request LIPID PANEL (05910)Indication: Hypertension, benign On: :21 Request CBC with auto diff ([id number])Indication: Hypertension, benign On: 37-Ntf-144920:21 Request CALCIFIDIOL (39441) VIT D 25Indication: Vitamin D deficiency, unspecified On: :21 Request CALCIFIDIOL (57629) VIT D 25Indication: Vitamin D deficiency, unspecified On: :29 Request PT (Prothrobim Time) ([id number])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 On: :29 Request Comments: standing order for prn checks URINALYSIS, W/ MICRO (77907)Indication: Diabetes mellitus type II, controlled On: :28 Request METABOLIC PANEL, COMPREHENSIVE (53823)Indication: Diabetes mellitus type II, controlled On: :28 Request LIPID PANEL ([id number])Indication: Diabetes mellitus type II, controlled On: :28 Request CBC WITH MANUAL DIFF ([id number])Indication: Diabetes mellitus type II, controlled On: 71-Svb-434756:28 Request PT (Prothrobim Time) (73921)Indication: History of DVT (deep vein thrombosis) On: 71-Mvd-16646:04 Request Comments: standing order METABOLIC PANEL, COMPREHENSIVE (58173)Indication: Diabetes mellitus type II, controlled On: 06-Vno-315810:20 Request LIPID PANEL (47675)Indication: Diabetes mellitus type II, controlled On: 35-Ykm-298116:20 Request CBC WITH MANUAL DIFF ([id number])Indication: Diabetes mellitus type II, controlled On: 60-Dod-100781:20 Request PT (Prothrobim Time) (96071)Indication: intermediate current use of 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 therapy On: 13-Wbr-637471:55 Request CALCIFIDIOL (21405) VIT D 25Indication: Vitamin D deficiency, unspecified On: 80-Wta-003331:35 Request MICROALBUMIN: CREATININE RATIO (36391) AND (08950)Indication: Diabetes mellitus type II, controlled On: 41-Znd-791003:35 Request METABOLIC PANEL, COMPREHENSIVE ([id number])Indication: Diabetes mellitus type II, controlled On: 10-Afd-492459:35 Request LIPID PANEL ([id number])Indication: Diabetes mellitus type II, controlled On: 07-Amf-449649:35 Request CBC WITH MANUAL DIFF ([id number])Indication: Diabetes mellitus type II, controlled On: 81-Knt-540069:35 Request CAMERON CULTURE-OTHER (67223)Indication: Cellulitis, umbilical On: 56-Pfa-857234:06 Request PARATHORMONE (04773)Indication: Hypercalcemia On: 5-Dtr-400593:56 Request CALCIUM SERUM (11636)Indication: Hypercalcemia On: 0-Wbl-760454:56 Request Blood Glucose , Office (93315)Indication: Diabetes mellitus type II, controlled On: 2-Fzy-221537:26 Request Metabolic Panel, Basic (94929)Indication: Swelling of limb On: 93-Zuo-25039:39 Request Metabolic Panel, Basic (73165)Indication: Diabetes mellitus type II, controlled On: 51-Rkn-070278:48 Request MICROALBUMIN: CREATININE RATIO (47028) AND (31906)Indication: Diabetes mellitus type II, controlled On: 47-Pfy-537519:48 Request CALCIFIDIOL (27506) VIT D 25Indication: Vitamin D deficiency, unspecified On: 92-Ita-916971:46 Request CALCIFIDIOL (62320) VIT D 25Indication: Vitamin D deficiency, unspecified On: :42 Request MICROALBUMIN: CREATININE RATIO (53607) AND (05535)Indication: Diabetes mellitus type II, controlled On: : Request METABOLIC PANEL, COMPREHENSIVE (30762)Indication: Diabetes mellitus type II, controlled On: :42 Request LIPID PANEL (87258)Indication: Diabetes mellitus type II, controlled On: : Request CBC WITH MANUAL DIFF ([id number])Indication: Diabetes mellitus type II, controlled On: : Request METABOLIC PANEL, COMPREHENSIVE (98087)Indication: Hypercholesteremia On: :08 Request LIPID PANEL (29818)Indication: Hypercholesteremia On: :08 Request CALCIFIDIOL (81692) VIT D 25Indication: Vitamin D deficiency, unspecified On: : Request Comments: in three months (approximately) CBC WITH MANUAL DIFF ([id number])Indication: Diabetes mellitus type II, controlled On: Request Comments: in three months (approximately) MICROALBUMIN: CREATININE RATIO (15156) AND (02224)Indication: Diabetes mellitus type II, controlled On: : Request METABOLIC PANEL, COMPREHENSIVE ([id number])Indication: Diabetes mellitus type II, controlled On: : Request LIPID PANEL (99258)Indication: Diabetes mellitus type II, controlled On: : Request PT (Prothrobim Time) (97016)Indication: Deep vein thrombosis, unspecified laterality On: Request Comments: monday CBC (Auto) ([id number])Indication: Deep vein thrombosis, unspecified laterality On: : Request Comments: monday PT (Prothrobim Time) (42815)Indication: Deep vein thrombosis, unspecified laterality On: :32 Request Comments: standing order OVA & PARASITE DIR SMEAR (39928)Indication: Diarrhea On: :34 Request OCCULT BLOOD FECES SCREEN (93487)Indication: Diarrhea On: :34 Request LEUKOCYTE COUNT, FECAL (74520)Indication: Diarrhea On: :34 Request C-DIFFICILE, STOOL (21778)Indication: Diarrhea On: :34 Request CAMERON CULTURE-STOOL (16337)Indication: Diarrhea On: :34 Request CALCIFIDIOL (27742) VIT D 25Indication: Vitamin D deficiency, unspecified On: 88-Asb-818552:09 Request MICROALBUMIN: CREATININE RATIO (77154) AND ([id number])Indication: Diabetes mellitus type II, controlled On: :06 Request METABOLIC PANEL, COMPREHENSIVE (16313)Indication: Diabetes mellitus type II, controlled On: 99-Wqh-172972:06 Request LIPID PANEL (46182)Indication: Diabetes mellitus type II, controlled On: : Request CBC WITH MANUAL DIFF (25413)Indication: Diabetes mellitus type II, controlled On: 42-Ahg-949110:06 Request MICROALBUMIN: CREATININE RATIO (50238) AND (33129)Indication: Diabetes mellitus type II, controlled On: 2-Gha-461668:16 Request CALCIFIDIOL (08061) VIT D 25Indication: Vitamin D deficiency, unspecified On: 0-Nxd-623675:16 Request METABOLIC PANEL, COMPREHENSIVE (54880)Indication: Diabetes mellitus type II, controlled On: 1-Dwp-045039:15 Request LIPID PANEL (45590)Indication: Hypercholesteremia On: 8-Xsz-532553:15 Request TSH (49305)Indication: Hypercholesteremia On: 98-Hpg-983158:58 Request Comments: hair thinning HEPATIC FUNCTION PANEL (88426)Indication: Hypercholesteremia On: 06-Dsu-485316:58 Request LIPID PANEL (41954)Indication: Hypercholesteremia On: 09-Qec-696691:58 Request HgA1C , Office (05224)Indication: Diabetes mellitus type II, controlled On: 01-Nwp-247034:52 Request Methylmalonic acid, serum 58511Fqlqvatspp: Abnormal blood chemistry On: 47-Bdu-489344:26 Request CALCIFIDIOL (65802) VIT D 25Indication: Abnormal blood chemistry On: : Request Urine Protein Electrophoresis (UPEP) (25274)Indication: Abnormal blood chemistry On: : Request Serum Protein Electrophoresis (SPEP) (88836)Indication: Abnormal blood chemistry On: : Request LIPID PANEL (86607)Indication: Diabetes mellitus type II, controlled On: : Request METABOLIC PANEL, COMPREHENSIVE (11910)Indication: Diabetes mellitus type II, controlled On: : Request CBC WITH MANUAL DIFF (40714)Indication: Diabetes mellitus type II, controlled On: : Request Comments: in three months (approximately) MICROALBUMIN: CREATININE RATIO (37352) AND (40741)Indication: Diabetes mellitus type II, controlled On: : Request Metabolic Panel, Comprehensive (25734)Indication: Hypercholesteremia On: :45 Request Lipid Panel (49999)Indication: Hypercholesteremia On: 13-Knl-847501:45 Request HEPATIC FUNCTION PANEL (26264)Indication: Hypercholesteremia On: 54-Hjx-810970:12 Request Lipid Panel (36053)Indication: Hypercholesteremia On: 84-Apw-481767:11 Request Comments: in three months (approximately) HgA1C , Office (42088)Indication: Diabetes mellitus type II, controlled On: 03-Nwj-484168:38 Request HEPATIC FUNCTION PANEL (51011)Indication: Hypercholesteremia On: :40 Request Lipid Panel (00202)Indication: Hypercholesteremia On: :40 Request MICROALBUMIN: CREATININE RATIO (04007) AND (77646)Indication: Diabetes mellitus type II, controlled On: :29 Request LIPID PANEL (34898)Indication: Diabetes mellitus type II, controlled On: :29 Request METABOLIC PANEL, COMPREHENSIVE (77882)Indication: Diabetes mellitus type II, controlled On: :29 Request CBC WITH MANUAL DIFF ([id number])Indication: Diabetes mellitus type II, controlled On: 33-Fdn-372007:29 Request METABOLIC PANEL, COMPREHENSIVE (34867)Indication: Diabetes mellitus type II, controlled On: 98-Wok-405656:19 Request MICROALBUMIN: CREATININE RATIO (68219) AND (60387)Indication: Diabetes mellitus type II, controlled On: 02-Vme-119494:19 Request LIPID PANEL (07020)Indication: Diabetes mellitus type II, controlled On: 30-Xdz-529517:19 Request CBC WITH MANUAL DIFF ([id number])Indication: Diabetes mellitus type II, controlled On: 49-Ize-888649:19 Request FECAL OCCULT HGB ASSAY- tubes sent home (85343)Indication: Well woman exam with routine gynecological exam On: 41-Cht-750340:13 Request Thin prep Pap (34277)Indication: Well woman exam with routine gynecological exam On: 33-Fui-685414:13 Request URINE CAMERON CULTURE-HAIDER COL COUNT On: 59-Qvh-372856:10 Request (80006) HEPATIC FUNCTION PANEL (11225)Indication: Hypercholesteremia On: 31-Crd-452107:33 Request Comments: in six months LIPID PANEL ([id number])Indication: Hypercholesteremia On: 26-Vif-190924:33 Request Planned Encounters Medical; General Medical - On: 21-May-2018 10:45 [facility] Lesly Chairez CNP, CNP, Mary E Planned Procedures DEXA SCAN AXIAL SKELETON (29919)By: On: 19-Mar-2018 Intent Lesly Chairez CNP, CNP, Mary E SCREENING DIGITAL TOMOSYNTHESIS OF On: 19-Mar-2018 Intent BREAST ([id number])By: Lesly Chairez CNP, CNP, Mary E SCREENING DIGITAL TOMOSYNTHESIS OF On: 12-Feb-2018 Intent BREAST (87694)By: Lesly Chairez CNP Comments: after Mar 09 2018 Lesly Chairez CNP DEXA SCAN AXIAL SKELETON (05625)By: On: 12-Feb-2018 Intent Lesly Chairez CNP, CNP, Mary E Radiology - Hip - RightBy: Mihaela On: 12-Feb-2018 Intent Lesly RODRIGUEZ CNP, Mary E Flu Vaccine (Quadrivalent) 81396Hc: On: 12-Feb-2018 Intent Lesly Chairez CNP, CNP, Mary E Comments: Lot #[id number]-L dltd, IMDose prefilled syringegiven by: ELVIN ELIAS reviewed and ABN signed Kenalog 10 mg (J3301)By: Mihaela RODRIGUEZ, On: 08-Jan-2018 Intent Lesly Chairez CNP Fátima DRAIN/INJECT INTERMED JOINT/BURSA On: 08-Jan-2018 Intent ()By: Lesly Chairez CNP Comments: Rt wrist injection with marcaine and kenalog 1/2cc Lesly RODRIGUEZ Ultrasound - Abdomen CompleteBy: On: 06-Nov-2017 Intent Mihaela RODRIGUEZ Lesly Chatman Nellyfawn MICHAELLesly B 12 Injection, 1000 mcg (J3420)By: On: 24-Aug-2017 Intent Elgin Miller Comments: Vitamin b12 1000mcg injection lot:[id number]:10/2018R DELT IMpt tolerated well MSMITH,SHAMPOO ASSISTANT B 12 Injection, 1000 mcg (J3420)By: On: 17-Aug-2017 Intent Mihaela RODRIGUEZ FátimaCompa Chairez CNP Fátima Comments: vitamin b12 1000mcg injectionlot: [id number]: 10/2018L DELT IMpt tolerated wellAD SHAMPOO ASSISTANT B 12 Injection, 1000 mcg (J3420)By: On: 07-Aug-2017 Intent Visit, Nurse Comments: Lot #[id number]-10/2018Site- Left dtld, IMDose-prefilled syringegiven by:ELVIN Woo signed B 12 Injection, 1000 mcg (J3420)By: On: 02-Aug-2017 Intent Mihaela RODRIGUEZ FátimaCompa Chairez CNP Fátima Flu Vaccine (Quadrivalent) 80123Dg: On: 13-Mar-2017 Intent Mihaela RODRIGUEZ FátimaCompa Chairez CNP Fátima Comments: InfluenzaLot #[id number]/18Site-L dltd, IMDose prefilled syringeVIS and ABN signedgiven by:DAVID de paz MAMMOGRAM BREAST BILATERAL On: 27-Feb-2017 Intent SCREENING DIGITAL ([id number])By: Lesly Chairez CNP, CNP, Mary E MRI OF LUMBAR SPINE WITH AND On: 28-Nov-2016 Intent WITHOUT CONTRAST (09849)By: CiLesly augustine CNP, CNP, Mary E Radiology - Lumbar SpineBy: Ciesa On: 19-Sep-2016 Intent Lesly RODRIGUEZ CNP, Mary E Radiology - Humerus - RightBy: On: 08-Apr-2016 Intent Lesly Chairez CNP, CNP, Mary E Solu -Medrol Injection, 125 mg On: 08-Apr-2016 Intent (J2930)By: Lesly Chairez CNP, CNP, Mary E Solu- Medrol Injection, 125mg On: 24-Mar-2016 Intent (J2930)By: Wendy June DO Comments: Lot:[id number]/2018Dose:125mgRoute:imSite:r hipGiven By:Gaurang signed Flu Vaccine (Quadrivalent) 95583Kk: On: 29-Feb-2016 Intent Visit, Nurse Comments: Lot #[id number]/30/17ite-L dltd, IMDose prefilled syringegiven by:ELVIN Woo and ABN signed BILATERAL MAMMOGRAMS ([id number])By: On: 15-Feb-2016 Intent Lesly Chairez CNP, CNP, Mary E Kenalog Injection, 10 mgm On: 18-Jan-2016 Intent (J3301)By: Mihaela RODRIGUEZ Lesly Chairez CNP Lesly Chatman DRAIN/INJECT SMALL JOINT OR BURSA On: 18-Jan-2016 Intent (13644)By: Ryanmichael RODRIGUEZLesly CNP, Mary E Radiology - Lumbar SpineBy: Ciesa On: 07-Sep-2015 Intent Lesly RODRIGUEZ CNP, Mary E Toradol Injection, 30 mg On: 07-Sep-2015 Intent (J1885)By: Mihaela RODRIGUEZ Lesly Chairez Comments: Lot:[id number]:08/03/16Dose:30mgRoute:imSite:r hipGiven By:JUNG signed Lesly RODRIGUEZ MRI - Shoulder(s) - RightBy: Ciesa On: 03-Aug-2015 Intent Lesly RODRIGUEZ CNP, Mary E Radiology - Shoulder - RightBy: On: 03-Aug-2015 Intent Nellypopmichael Lesly RODRIGUEZ CNP, Mary E ADMINISTRATION OF INFLUENZA VIRUS On: 02-Mar-2015 Intent VACCINE (G0008)By: Akosua Enrique MD Flu Vaccine (Quadrivalent) 66185Fx: On: 02-Mar-2015 Intent Akosua Enrique MD Comments: Lot #:[id number] date:Amount given:0.5mlRoute: IMSite given:L DltdGiven by: jkmVIS and ABN signed Quad Flu Wax CurettesBy: Akosua Enrique MD On: 27-Nov-2014 Intent Ear Irrigation (38999)By: Elana On: 27-Nov-2014 Intent Akosua BAUTISTA MAMMOGRAM, SCREENING, BOTH BREAST On: 27-Nov-2014 Intent (46071)By: Akosua Enrique MD Prevnar 13 (51034)By: Maryam HERNANDEZ, On: 28-Apr-2014 Intent Maria T Comments: [id number] arm, IMAS ADMINISTRATION OF INFLUENZA VIRUS On: 31-Mar-2014 Intent VACCINE (G0008)By: Akosua Enrique MD Comments: [id number] syringeL Dltd, IMAS, LPNABN and VIS signed M FLU VAC, SPLIT, >3 YEARS, INTRAMUSC On: 31-Mar-2014 Intent (16426)By: Maria T Francisco LPN BILATERAL MAMMOGRAMS (81294)By: On: 06-Feb-2014 Intent Akosua Enrique MD MAMMOGRAM, SCREENING, BOTH BREAST On: 23-Dec-2013 Intent (60225)By: Akosua Enrique MD Eprescribed prescriptions On: 29-Apr-2013 Intent (G8553)By: Akosua Enrique MD Eprescribed prescriptions On: 08-Apr-2013 Intent (G8553)By: Akosua Enrique MD DXA, BONE DENSITY, AXIAL SKELETON On: 08-Apr-2013 Intent (28545)By: Akosua Enrique MD Comments: postmenapausal FLU VAC, SPLIT, >3 YEARS, INTRAMUSC On: 08-Mar-2013 Intent (55899)By: Wendy June DO Comments: Lot:[id number]:6.14Amt:0.5mlRoute:IMSite: L DltdGiven By: ELVIN Booker signed ADMINISTRATION OF INFLUENZA VIRUS On: 08-Mar-2013 Intent VACCINE (G0008)By: Wendy June DO Rocephon Injection, 2 Gm On: 28-Feb-2013 Intent (J0696)By: Wendy June DO Comments: im lt and rt hip 2.5 ml each [id number] 09/04/15 Eprescribed prescriptions On: 07-Feb-2013 Intent (G8553)By: Randa Aldana LPN Eprescribed prescriptions On: 24-Dec-2012 Intent (G8553)By: Lesly Chairez CNP, CNP, Fátima MAMMOGRAM, SCREENING, BOTH BREASTS On: 08-Oct-2012 Intent (20288)By: Akosua Enrique MD Eprescribed prescriptions On: 08-Oct-2012 Intent (G8553)By: Dima Alexander LPN Eprescribed prescriptions On: 14-Jun-2012 Intent (G8553)By: Akosua Enrique MD Eprescribed prescriptions On: 21-May-2012 Intent (G8553)By: Akosua Enrique MD Kenalog Injection, 10 mgm On: 12-Mar-2012 Intent (J3301)By: kAosua Enrique MD Kenalog Injection, 10 mgm On: 12-Mar-2012 Intent (J3301)By: Akosua Enrique MD Kenalog Injection, 10 mgm On: 12-Mar-2012 Intent (J3301)By: Akosua Enrique MD Kenalog Injection, 10 mgm On: 12-Mar-2012 Intent (J3301)By: Akosua Enrique MD FLU VAC, SPLIT, >3 YEARS, INTRAMUSC On: 20-Feb-2012 Intent (84939)By: Myrna Townsend Comments: Lot:[id number]:6.30.13Dose:prefilledRoute:IMSite:L DltdGiven By:JRAN signed ADMINISTRATION OF INFLUENZA VIRUS On: 20-Feb-2012 Intent VACCINE (G0008)By: Myrna Townsend ADMINISTRATION OF INFLUENZA VIRUS On: 20-Feb-2012 Intent VACCINE (G0008)By: MATT Maloney FLU VAC, SPLIT, >3 YEARS, INTRAMUSC On: 20-Feb-2012 Intent (56709)By: MATT Maloney MAMMOGRAM, SCREENING, BOTH BREASTS On: 24-Jan-2012 Intent (21856)By: Akosua Enrique MD Ultrasound - AortaBy: Elana BAUTISTA, On: 14-Nov-2011 Intent Akosua Lackey Kenalog Injection, 10 mgm On: 24-Oct-2011 Intent (J3301)By: Akosua Enrique MD Kenalog Injection, 10 mgm On: 24-Oct-2011 Intent (J3301)By: Akosua Enrique MD Kenalog Injection, 10 mgm On: 24-Oct-2011 Intent (J3301)By: Akosua Enrique MD Kenalog Injection, 10 mgm On: 24-Oct-2011 Intent (J3301)By: Akosua Enrique MD EKG (53831)By: Akosua Enrique MD On: 08-Aug-2011 Intent Eprescribed prescriptions On: 08-Aug-2011 Intent (G8553)By: Akosua Enrique MD INFUSION, NORMAL SALINE SOLUTION , On: 05-Jul-2011 Intent 250 CC (J7050)By: Mihaela RODRIGUEZ, Lesly Chairez CNP, Fátima FLU VAC, SPLIT, >3 YEARS, INTRAMUSC On: 02-May-2011 Intent (98021)By: Akosua Enrique MD Comments: had done ADMINISTRATION OF INFLUENZA VIRUS On: 28-Feb-2011 Intent VACCINE (G0008)By: Akosua Enrique MD FLU VAC, SPLIT, >3 YEARS, INTRAMUSC On: 28-Feb-2011 Intent (13908)By: Akosua Enrique MD Eprescribed prescriptions On: 28-Feb-2011 Intent (G8553)By: Akosua Enrique MD Venous Doppler - RightBy: Elana On: 31-Jan-2011 Intent Akosua BAUTISTA Comments: lower leg. wet read Kenalog Injection, 10 mgm On: 18-Jan-2011 Intent (J3301)By: Akosua Enrique MD Comments: x4 Radiology - Lumbar SpineBy: Elana On: 06-Jan-2011 Intent Akosua BAUTISTA Radiology - Knee - RightBy: Elana On: 06-Jan-2011 Intent Akosua BAUTISTA Radiology - Knee - LeftBy: Elana On: 06-Jan-2011 Intent Akosua BAUTISTA Radiology - Small Bowel Series On: 06-Jan-2011 Intent (23049)By: Akosua Enrique MD EKG (59872)By: Akosua Enrique MD On: 28-Jun-2010 Intent MAMMOGRAM, SCREENING, BOTH BREASTS On: 28-Jun-2010 Intent (89825)By: Akosua Enrique MD FLU VAC, SPLIT, >3 YEARS, INTRAMUSC On: 29-Mar-2010 Intent (31988)By: Ana Candelario Comments: Lot:[id number]:09/2010Dose:0.5mlRoute:IMSite:Left Deltoid Given by: WALESKA Valerio ADMINISTRATION OF INFLUENZA VIRUS On: 29-Mar-2010 Intent VACCINE (G0008)By: Ana Candelario EKG (55261)By: Akosua Enrique MD On: 24-Apr-2009 Intent IMMUNIZ ADMNIN, 1 VAC, SNGL/COMBO On: 11-Mar-2009 Intent (68979)By: Ladonna Briggs RN FLU VAC, SPLIT, >3 YEARS, INTRAMUSC On: 11-Mar-2009 Intent (07400)By: Ladonna Briggs RN Breast Diagnostic - RightBy: On: 23-Dec-2008 Intent Akosua Enrique MD Breast Screening - LeftBy: Elana On: 23-Dec-2008 Intent Akosua BAUTISTA Breast Diagnostic - RightBy: On: 15-Jul-2008 Intent Akosua Enrique MD Comments: 11-11 FLU VAC, SPLIT, >3 YEARS, INTRAMUSC On: 25-Mar-2008 Intent (17899)By: Alexa Metz ADMINISTRATION OF INFLUENZA VIRUS On: 25-Mar-2008 Intent VACCINE (G0008)By: Alexa Metz EKG ([id number])By: Akosua Enrique MD On: 04-Mar-2008 Intent MAMMOGRAM, SCREENING, BOTH BREASTS On: 04-Mar-2008 Intent (67056)By: Akosua Enrique MD Venous Doppler - BothBy: Elana On: 14-Aug-2007 Intent Akosua BAUTISTA Comments: lower legs EKG (28934)By: Akosua Enrique MD On: 15-Feb-2007 Intent Bone Density StudyBy: Jovan, On: 28-Dec-2006 Intent Randa MAMMOGRAM, SCREENING, BOTH BREASTS On: 28-Dec-2006 Intent (08771)By: Akosua Enrique MD SPECIMEN HANDLING/TRANSPORT On: 29-Sep-2006 Intent (17700)By: Akosua Enrique MD FLU VAC, SPLIT, >3 YEARS, INTRAMUSC On: 04-Apr-2006 Intent (04357)By: Alexa Joseph ADMINISTRATION OF INFLUENZA VIRUS On: 04-Apr-2006 Intent VACCINE (G0008)By: Alexa Joseph FLU VAC, SPLIT, >3 YEARS, INTRAMUSC On: 28-Mar-2006 Intent (79546)By: Akosua Enrique MD Planned Medications INFUSION, NORMAL SALINE SOLUTION , 250 CC Ordered: 05-Jul-2011 Pending Ciesa DIRECTOR OF ADMISSIONS, Fátima Ciesa DIRECTOR OF ADMISSIONS, Fátima INJECTION, CEFTRIAXONE SODIUM, PER 250 MG Ordered: 28-Feb-2013 Pending Shaylee DO, Wendy INJECTION, KETOROLAC TROMETHAMINE, PER 15 MG Ordered: 07-Sep-2015 Pending Ciesa DIRECTOR OF ADMISSIONS, Fátima Ciesa DIRECTOR OF ADMISSIONS, Fátima INJECTION, METHYLPREDNISOLONE SODIUM SUCCINATE, UP TO 125 MG Ordered: 08-Apr-2016 Pending Ciesa DIRECTOR OF ADMISSIONS, Fátima Ciesa DIRECTOR OF ADMISSIONS, Fátima INJECTION, METHYLPREDNISOLONE SODIUM SUCCINATE, UP TO 125 MG Ordered: 24-Mar-2016 Pending Shaylee DO, Wendy INJECTION, TRIAMCINOLONE ACETONIDE, NOT OTHERWISE SPECIFIED, 10 MG Ordered: 18-Jan-2011 Pending Akosua Enrique MD INJECTION, TRIAMCINOLONE ACETONIDE, NOT OTHERWISE SPECIFIED, 10 MG Ordered: 18-Jan-2016 Pending Ciesa DIRECTOR OF ADMISSIONS, Fátima Ciesa DIRECTOR OF ADMISSIONS, Fátima INJECTION, TRIAMCINOLONE ACETONIDE, NOT OTHERWISE SPECIFIED, 10 MG Ordered: 12-Mar-2012 Pending Akosua Enrique MD INJECTION, TRIAMCINOLONE ACETONIDE, NOT OTHERWISE SPECIFIED, 10 MG Ordered: 12-Mar-2012 Pending Akosua Enrique MD INJECTION, TRIAMCINOLONE ACETONIDE, NOT OTHERWISE SPECIFIED, 10 MG Ordered: 12-Mar-2012 Pending Akosua Enrique MD INJECTION, TRIAMCINOLONE ACETONIDE, NOT OTHERWISE SPECIFIED, 10 MG Ordered: 24-Oct-2011 Pending Akosua Enrique MD INJECTION, TRIAMCINOLONE ACETONIDE, NOT OTHERWISE SPECIFIED, 10 MG Ordered: 24-Oct-2011 Pending Akosua Enrique MD INJECTION, TRIAMCINOLONE ACETONIDE, NOT OTHERWISE SPECIFIED, 10 MG Ordered: 24-Oct-2011 Pending Akosua Enrique MD INJECTION, TRIAMCINOLONE ACETONIDE, NOT OTHERWISE SPECIFIED, 10 MG Ordered: 24-Oct-2011 Pending Akosua Enrique MD INJECTION, TRIAMCINOLONE ACETONIDE, NOT OTHERWISE SPECIFIED, 10 MG Ordered: 12-Mar-2012 Pending Akosua Enrique MD INJECTION, TRIAMCINOLONE ACETONIDE, NOT OTHERWISE SPECIFIED, 10 MG Ordered: 08-Jan-2018 Pending Mihaela RODRIGUEZ, Lesly Chairez CNP, Lesly Chatman Vitamin B-12 1000 MCG/ML Injection Solution Ordered: 24-Aug-2017 Pending Elgin Miller Vitamin B-12 1000 MCG/ML Injection Solution Ordered: 02-Aug-2017 Pending Lesly Chairez CNP, CNP, Lesly Chatman Vitamin B-12 1000 MCG/ML Injection Solution Ordered: 07-Aug-2017 Pending Nurse Damien Vitamin B-12 1000 MCG/ML Injection Solution Ordered: 17-Aug-2017 Pending Cifawn RODRIGUEZ, Lesly Chatman Cipopa MICHAEL, Fátima Instructions Name Dates Details Nonsmoker : How to access health information online Indication: Nonsmoker Nonsmoker : How to access health information online - Detail Indication: Nonsmoker Nonsmoker : Patient Instructions Indication: Nonsmoker Nonsmoker : How to access health information online Indication: Nonsmoker Nonsmoker : How to access health information online - Detail Indication: Nonsmoker BMI 31.0-31.9,adult : Patient Instructions Indication: BMI 31.0-31.9,adult Nonsmoker : How to access health information online Indication: Nonsmoker Nonsmoker : How to access health information online - Detail Indication: Nonsmoker Nonsmoker : Patient Instructions Indication: Nonsmoker BMI 31.0-31.9,adult : How to access health information online Indication: BMI 31.0-31.9,adult BMI 31.0-31.9,adult : How to access health information online - Detail Indication: BMI 31.0-31.9,adult Hypercholesteremia : Patient Instructions Indication: Hypercholesteremia Vitamin D deficiency, unspecified : How to access health information online Indication: Vitamin D deficiency, unspecified Vitamin D deficiency, unspecified : How to access health information online - Detail Indication: Vitamin D deficiency, unspecified Vitamin D deficiency, unspecified : Patient Instructions Indication: Vitamin D deficiency, unspecified Diabetes mellitus type II, controlled : How to access health information online Indication: Diabetes mellitus type II, controlled Diabetes mellitus type II, controlled : How to access health information online - Detail Indication: Diabetes mellitus type II, controlled Diabetes mellitus type II, controlled : Patient Instructions Indication: Diabetes mellitus type II, controlled Diabetes mellitus type II, controlled : How to access health information online Indication: Diabetes mellitus type II, controlled Diabetes mellitus type II, controlled : How to access health information online - Detail Indication: Diabetes mellitus type II, controlled Superficial thrombophlebitis : Patient Instructions Indication: Superficial thrombophlebitis Current nonsmoker (Renamed from Current non-smoker) : How to access health information online Indication: Current nonsmoker (Renamed from Current non-smoker) Current nonsmoker (Renamed from Current non-smoker) : How to access health information online - Detail Indication: Current nonsmoker (Renamed from Current non-smoker) Cellulitis of left lower leg : Patient Instructions Indication: Cellulitis of left lower leg Current nonsmoker (Renamed from Current non-smoker) : How to access health information online - Detail Indication: Current nonsmoker (Renamed from Current non-smoker) Current nonsmoker (Renamed from Current non-smoker) : Patient Instructions Indication: Current nonsmoker (Renamed from Current non-smoker) Current nonsmoker (Renamed from Current non-smoker) : How to access health information online Indication: Current nonsmoker (Renamed from Current non-smoker) Current nonsmoker (Renamed from Current non-smoker) : How to access health information online - Detail Indication: Current nonsmoker (Renamed from Current non-smoker) Current nonsmoker (Renamed from Current non-smoker) : Patient Instructions Indication: Current nonsmoker (Renamed from Current non-smoker) Diabetes mellitus type II, controlled : How to access health information online Indication: Diabetes mellitus type II, controlled Diabetes mellitus type II, controlled : How to access health information online - Detail Indication: Diabetes mellitus type II, controlled Diabetes mellitus type II, controlled : Patient Instructions Indication: Diabetes mellitus type II, controlled History of DVT (deep vein thrombosis) : DISCONTINUED - PT (PROTHROMBIN TIME) (26790) Indication: History of DVT (deep vein thrombosis) intermediate current use of 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 therapy : DISCONTINUED - PT (PROTHROMBIN TIME) (18172) Indication: intermediate current use of 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 therapy Diabetes mellitus type II, controlled : How to access health information online Indication: Diabetes mellitus type II, controlled Diabetes mellitus type II, controlled : How to access health information online - Detail Indication: Diabetes mellitus type II, controlled Diabetes mellitus type II, controlled : Patient Instructions Indication: Diabetes mellitus type II, controlled Diabetes mellitus type II, controlled : How to access health information online Indication: Diabetes mellitus type II, controlled Diabetes mellitus type II, controlled : How to access health information online - Detail Indication: Diabetes mellitus type II, controlled Diabetes mellitus type II, controlled : Patient Instructions Indication: Diabetes mellitus type II, controlled Bee sting, accidental or unintentional, initial encounter : Patient Instructions Indication: Bee sting, accidental or unintentional, initial encounter Diabetes mellitus type II, controlled : How to access health information online Indication: Diabetes mellitus type II, controlled Diabetes mellitus type II, controlled : How to access health information online - Detail Indication: Diabetes mellitus type II, controlled Diabetes mellitus type II, controlled : Patient Instructions Indication: Diabetes mellitus type II, controlled Diabetes mellitus type II, controlled : How to access health information online Indication: Diabetes mellitus type II, controlled Diabetes mellitus type II, controlled : How to access health information online - Detail Indication: Diabetes mellitus type II, controlled Diabetes mellitus type II, controlled : Patient Instructions Indication: Diabetes mellitus type II, controlled Bleeding ulcer : How to access health information online Indication: Bleeding ulcer Bleeding ulcer : How to access health information online - Detail Indication: Bleeding ulcer Bleeding ulcer : Patient Instructions Indication: Bleeding ulcer Hematuria : Patient Instructions Indication: Hematuria Encounter for Medicare annual wellness exam : How to access health information online Indication: Encounter for Medicare annual wellness exam Encounter for Medicare annual wellness exam : How to access health information online - Detail Indication: Encounter for Medicare annual wellness exam Encounter for Medicare annual wellness exam : Patient Instructions Indication: Encounter for Medicare annual wellness exam Diabetes mellitus type II, controlled : How to access health information online Indication: Diabetes mellitus type II, controlled Diabetes mellitus type II, controlled : How to access health information online - Detail Indication: Diabetes mellitus type II, controlled Diabetes mellitus type II, controlled : Patient Instructions Indication: Diabetes mellitus type II, controlled Diabetes mellitus type II, controlled : How to access health information online - Detail Indication: Diabetes mellitus type II, controlled Diabetes mellitus type II, controlled : Patient Instructions Indication: Diabetes mellitus type II, controlled Encounter for Medicare annual wellness exam : How to access health information online Indication: Encounter for Medicare annual wellness exam Encounter for Medicare annual wellness exam : How to access health information online - Detail Indication: Encounter for Medicare annual wellness exam Diabetes mellitus type II, controlled : How to access health information online Indication: Diabetes mellitus type II, controlled Diabetes mellitus type II, controlled : How to access health information online - Detail Indication: Diabetes mellitus type II, controlled Diabetes mellitus type II, controlled : Patient Instructions Indication: Diabetes mellitus type II, controlled Encounter for Medicare annual wellness exam : Patient Instructions Indication: Encounter for Medicare annual wellness exam Cellulitis and abscess of leg : Patient Instructions Indication: Cellulitis and abscess of leg Chronic stasis dermatitis : Patient Instructions Indication: Chronic stasis dermatitis Itching : Patient Instructions Indication: Itching Cellulitis and abscess of leg : Patient Instructions Indication: Cellulitis and abscess of leg Cellulitis, umbilical : Patient Instructions Indication: Cellulitis, umbilical Diabetes mellitus type II, controlled : Patient Instructions Indication: Diabetes mellitus type II, controlled Diabetes mellitus type II, controlled : Patient Instructions Indication: Diabetes mellitus type II, controlled Diabetes mellitus type II, controlled : Patient Instructions Indication: Diabetes mellitus type II, controlled Encounters Lab Order On: 30-Mar-2018 10:05 Encounter Diagnosis: Vitamin D deficiency, unspecified End: 30-Mar-2018 10:07 [facility] Office Visit On: 19-Mar-2018 13:27 Encounter Reason: Annual Medicare Exam - The patient had reviewed and updated the family history, medication/s, past medical history and social history. Yes the patient did have a mini mental status exam done today. The End: 19-Mar-2018 14:23 activities of daily living the patient needs help with are shopping for groceries and housework. The patient has had fecal incontinence, had urinary incontinence, driven in past 6 months and put handrai ls in bathroom, but the patient has not missed or ran out of medications to soon, fallen in the past 6 months, gotten lost, has a medalert necklace or bracelet or put area rugs through house. The patien t has completed the following preventative measures: mammography (1 year ago) and colonoscopy (dr oates- 9 years ago). The patient does not have durable power of trademark attorney or living will. The patient huang s noticed lack of energy and thinking most people are better off than them. Other providers contributing to the patient's care are chief resource officer (dr. martinez) and loan clerk (dr. roper). Note for Annual Medicare Exam: bone density 2012, [ADDITIONAL REASON] Cold Symptoms - Note for Cold symptoms: cold symptoms using OTC tylenol cold and flu, and tussin. Was coughing Encounter Diagnosis: Nonsmoker, BMI 31.0-31.9,adult, Encounter for Medicare annual wellness exam, Encounter for screening mammogram for breast cancer (Renamed from Encounter for screening mammogram for malignant neoplasm of breast), Postmenopausal (Renamed from Postmenopausal status) [facility] Office Visit On: 12-Feb-2018 13:00 Encounter Reason: Follow up for chronic medical issues - The patient feels well with minor complaints (hip pain) and is sleeping poorly. Patient has been compliant with instructions. Current medication use: experiencing End: 12-Feb-2018 14:00 side effects (hip pain) and compliant with dosing regimen. Patient sleeps 5 (broken) hours per night. The medical issues the patient is following up for include blood sugar issues, cardiac issues, gastr ic reflux, high blood pressure, high cholesterol and other (hx. dvt, chronic venous stasis, hx. GI bleed/anemia, DDD, IBS, glaucoma suspect, vitamin d def., venous insuff., overweight ). Note for Follo w up for chronic medical issues: Has been holding pravachol, [ADDITIONAL REASON] Follow up tests - Diagnostic tests include other (labs). Date: (02/01). Note for Discuss procedure results: Took meclizine x 2 on labor day then no more vertigo , [ADDITIONAL REASON] Hip Problem - Note for Hip problem: Rt hip pain with bending over Encounter Diagnosis: Diabetes mellitus type II, controlled, Nonsmoker, Need for prophylactic vaccination and inoculation against influenza (Renamed from Need for immunization against influenza), BMI 31.0-31.9,adult, Hypercholesteremia, Hip pain, right, Postmenopausal (Renamed from Postmenopausal status), Encounter for screening mammogram for breast cancer (Renamed from Encounter for screening mammogram for malignant neoplasm of breast) [facility] Office Visit On: 08-Jan-2018 9:01 Encounter Reason: Wrist Pain - The injury involved the right wrist. Note for Wrist pain: Rt wrist pain ongoing, some deep heat helped, but not as sharp.Encounter Diagnosis: BMI 31.0-31.9,adult, Nonsmoker, Tenosynovitis, de Quervain, Arthritis End: 08-Jan-2018 9:39 [facility] Office Visit On: 06-Nov-2017 10:50 Encounter Reason: Follow up for chronic medical issues - The patient does not feel well and is sleeping poorly. Patient has been compliant with instructions. Current medication use: compliant with dosing regimen. Patient End: 06-Nov-2017 11:30 sleeps 5 hours per night. The medical issues the patient is following up for include blood sugar issues, cardiac issues, gastric reflux, high blood pressure, high cholesterol and other (hx. dvt, chroni c venous stasis, hx. GI bleed/anemia, DDD, IBS, glaucoma suspect, vitamin d def., venous insuff., overweight ). Note for Follow up for chronic medical issues: Cataracts taken care of, [ADDITIONAL REASON] Diarrhea - Note for Diarrhea: Through last night diarrhea , [ADDITIONAL REASON] Abdominal Pain (Malignant) - Note for Malignant abdominal pain: Rt lower quad sharp, relieved with heating pad. Encounter Diagnosis: Current nonsmoker (Renamed from Current non-smoker), BMI 31.0-31.9,adult, Irritable bowel syndrome, Diabetes mellitus type II, controlled, Early satiety, Low back pain, episodic, Lymphedema, limb, Hypercholesteremia, Abdominal pain [facility] Nurse Visit On: 24-Aug-2017 11:04 Encounter Diagnosis: Vitamin B12 deficiency End: 25-Aug-2017 5:55 [facility] Nurse Visit On: 17-Aug-2017 11:22 Encounter Reason: Injections - The medication the patient is here to receive is vitamin B12 IM.Encounter Diagnosis: Vitamin B12 deficiency End: 17-Aug-2017 19:56 [facility] Office Visit On: 07-Aug-2017 11:13 Encounter Reason: Injections - The medication the patient is here to receive is vitamin B12 IM.Encounter Diagnosis: Vitamin B12 deficiency End: 07-Aug-2017 11:28 [facility] Office Visit On: 02-Aug-2017 15:10 Encounter Reason: Follow up tests - Diagnostic tests include other (labs). Note for Discuss procedure results: follow up from labs done low B12 and D here for [facility] Diagnosis: BMI 29.0-29.9,adult, Vitamin D deficiency, unspecified, End: 02-Aug-2017 16:07 Vitamin B12 deficiency [facility] Office Visit On: 31-Jul-2017 9:40 Encounter Reason: Follow up for chronic medical issues - The patient feels well with minor complaints (back pain) and is sleeping poorly. Patient has been compliant with instructions. Current medication use: compliant wi End: 31-Jul-2017 11:12 th dosing regimen. Patient sleeps 5 hours per night. Impact of disease: emotional impact-mild. Nutrition: supplemental vitamins. The medical issues the patient is following up for include blood sugar is sues, cardiac issues, gastric reflux, high blood pressure, high cholesterol and other (hx. dvt, chronic venous stasis, hx. GI bleed/anemia, DDD, IBS, glaucoma suspect, vitamin d def., venous insuff., ov erweight ). Note for Follow up for chronic medical issues: Cataracts taken care of, [ADDITIONAL REASON] Back Pain - Note for Back pain: Recently has been pushing rain water in basement , [ADDITIONAL REASON] Cellulitis - Note for Cellulitis: Uses some type of strechy thing on legs for horses, lower leg edema as a result of rain water in basement Encounter Diagnosis: Diabetes mellitus type II, controlled, Current nonsmoker (Renamed from Current non-smoker), BMI 29.0-29.9,adult, Vitamin D deficiency, unspecified, Thrush [facility] Office Visit On: 13-Mar-2017 10:25 Encounter Reason: Follow up for chronic medical issues - The patient feels well with minor complaints (rash back) and is sleeping poorly. Patient has been compliant with instructions. Current medication use: compliant wi End: 13-Mar-2017 11:31 th dosing regimen. Patient sleeps 5 hours per night. Impact of disease: emotional impact-mild. Nutrition: supplemental vitamins. The medical issues the patient is following up for include blood sugar is sues, cardiac issues, gastric reflux, high blood pressure, high cholesterol and other (hx. dvt, chronic venous stasis, hx. GI bleed/anemia, DDD, IBS, glaucoma suspect, vitamin d def., venous insuff., ov erweight ). Note for Follow up for chronic medical issues: seeing wound care has 3 superficial leg blood clots but cannot take ASA or blood thinners, had severe bleeding ulcer in past serious Was told by Иван and was told not to go on blood thinner., [ADDITIONAL REASON] Rash - Symptoms include skin redness. The skin rash is located on the left arm. The symptoms occur constantly. The patient describes this as worsening. Previous presentation included rash, redness and itching. , [ADDITIONAL REASON] Edema - Note for Edema: Bilateral leg edema, Dr. 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 Encounter Diagnosis: Current nonsmoker (Renamed from Current non-smoker), Diabetes mellitus type II, controlled, Need for prophylactic vaccination and inoculation against influenza (Renamed from Need for immunizati on against influenza), BMI 29.0-29.9,adult, Superficial thrombophlebitis, Itch of skin, Palpitations, Cellulitis [facility] Phone Encounter On: 27-Feb-2017 9:52 Encounter Diagnosis: Breast screening End: 27-Feb-2017 10:21 [facility] Annotation/Addendum On: 24-Jan-2017 16:29 Encounter Diagnosis: Unspecified Diagnosis End: 24-Jan-2017 16:32 [facility] Office Visit On: 16-Jan-2017 10:20 Encounter Reason: Follow up ER - Reason for hospitalization note: (cellulitis). Patient has been compliant with instructions. Note for Follow up ER: Pt seen last by Dr. Tung June and put on Augmentin. Went to End: 16-Jan-2017 11:37 ER on 01/15/17, thought infection was getting worse. ER dr said that her yellow drainage was good/healing drainage. No fever, chills, increased reddness, warmth or swelling. Pt still taking Augmentin.Encounter Diagnosis: BMI 30.0-30.9,adult, Cellulitis of left lower leg, Current nonsmoker (Renamed from Current non-smoker) [facility] Office Visit On: 12-Jan-2017 10:42 Encounter Reason: Cellulitis - Symptoms include pain, swelling, warmth and drainage. Symptoms are located on the left leg. The patient describes the pain as aching. Onset was gradual 3 day(s) ago.Encounter Diagnosis: BMI 30.0-30.9,adult, End: 12-Jan-2017 14:44 Current nonsmoker (Renamed from Current non-smoker), Cellulitis of left lower leg, Skin abrasion, Edema extremities [facility] Office Visit On: 09-Jan-2017 9:42 Encounter Reason: Cellulitis - Symptoms include pain, swelling, warmth and drainage. Symptoms are located on the left leg. The patient describes the pain as aching. Onset was gradual 3 day(s) ago.Encounter Diagnosis: BMI 30.0-30.9,adult, End: 09-Jan-2017 11:45 Current nonsmoker (Renamed from Current non-smoker), Cellulitis of left lower leg, Itch of skin, Leg abrasion, left, initial encounter, Elevated blood pressure reading [facility] Office Visit On: 28-Nov-2016 7:46 Encounter Reason: Follow up for chronic medical issues - The patient feels well with minor complaints (back pain, right shoulder) and is sleeping poorly. Patient has been compliant with instructions. Current medication u End: 28-Nov-2016 11:48 se: compliant with dosing regimen. Patient sleeps 5 (interuppted sleep) hours per night. Impact of disease: emotional impact-mild. Nutrition: inadequate caloric intake (appetite loss) and supplemental v itamins. The medical issues the patient is following up for include blood sugar issues, cardiac issues, gastric reflux, high blood pressure, high cholesterol and other (hx. dvt, chronic venous stasis, h x. GI bleed/anemia, DDD, IBS, glaucoma suspect, vitamin d def., venous insuff., overweight )., [ADDITIONAL REASON] Follow up tests - Diagnostic tests include other (labs) and X-Ray. Date: (11/17/16). Current symptoms include joint pains. , [ADDITIONAL REASON] Back Pain Lumbar, Chronic - Note for Chronic lumbar back pain: Low back pain for years, but worsening, has seen chiropracter with elec stim Unable to stand for long periods Encounter Diagnosis: Diabetes mellitus type II, controlled, BMI 30.0-30.9,adult, Current nonsmoker (Renamed from Current non-smoker), GERD (gastroesophageal reflux disease), Hypertension, benign, Hypercholesteremia, Low back pain, episodic [facility] Annotation/Addendum On: 19-Sep-2016 17:34 Encounter Diagnosis: Low back pain, episodic End: 19-Sep-2016 17:43 [facility] Office Visit On: 15-Aug-2016 9:31 Encounter Reason: Follow up for chronic medical issues - The patient feels well with minor complaints (hernia question), has decreased energy level and is sleeping poorly. Patient has been compliant with instructions. Cu End: 15-Aug-2016 11:33 rrent medication use: compliant with dosing regimen. Patient sleeps 5 (interuppted sleep) hours per night. Impact of disease: emotional impact-mild. Nutrition: inadequate caloric intake (appetite loss) and supplemental vitamins. The medical issues the patient is following up for include blood sugar issues, cardiac issues, gastric reflux, high blood pressure, high cholesterol and other (hx. dvt, chroni c venous stasis, hx. GI bleed/anemia, DDD, IBS, glaucoma suspect, vitamin d def., venous insuff., overweight )., [ADDITIONAL REASON] Constipation - Note for Constipation: with diarrhe and constipaition was told per Odalys 2009 had IBS Encounter Diagnosis: Diabetes mellitus type II, controlled, Current nonsmoker (Renamed from Current non-smoker), BMI 30.0-30.9,adult, Weight loss, intermediate current use of 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 therapy, History of DVT (deep vein thrombosis), Bee sting, Decubitus ulcer of buttock, left, stage I, Hypercholesteremia, Hypertension, benign, Vitamin D deficiency, unspecified, Pertussis [facility] Office Visit On: 09-May-2016 7:23 Encounter Reason: Follow up for chronic medical issues - The patient feels well with minor complaints (Still itchy from bee ) and has decreased energy level. Patient has been compliant with instructions. Current medicati End: 09-May-2016 11:26 on use: compliant with dosing regimen. Patient sleeps 5 hours per night. Impact of disease: emotional impact-mild. Nutrition: balanced diet and supplemental vitamins. The medical issues the patient is f ollowing up for include blood sugar issues, cardiac issues, gastric reflux, high blood pressure, high cholesterol and other (hx. dvt, chronic venous stasis, hx. GI bleed/anemia, DDD, IBS, glaucoma suspe ct, vitamin d def., venous insuff., overweight ). Note for Follow up for chronic medical issues: 'Rt arm still with redness and itching , [ADDITIONAL REASON] ulcer - decub ulcer left buttocks Encounter Diagnosis: BMI 33.0-33.9,adult, Current nonsmoker (Renamed from Current non-smoker), Vitamin D deficiency, unspecified, Diabetes mellitus type II, controlled, Hypertension, benign, Decubitus ulcer of buttock, left, stage I [facility] Annotation/Addendum On: 08-Apr-2016 12:01 Encounter Diagnosis: Arm pain, inferior, right End: 08-Apr-2016 12:13 [facility] Office Visit On: 08-Apr-2016 11:45 Encounter Reason: Insect Bite/Sting - The insect causing the bite/sting is thought to be a bee. The patient sustained an insect bite/sting to the right arm. This occurred week(s) ago. Symptoms include single bite or stin End: 08-Apr-2016 12:01 g, pain at the site of the bite or sting and redness at the site of the bite or sting.Encounter Diagnosis: Cellulitis of right upper extremity, Bee sting [facility] Office Visit On: 24-Mar-2016 9:26 Encounter Reason: Insect Bite/Sting - The insect causing the bite/sting is thought to be a bee. The patient sustained an insect bite/sting to the right arm. This occurred week(s) ago. Symptoms include single bite or stin End: 24-Mar-2016 11:58 g, pain at the site of the bite or sting and redness at the site of the bite or sting.Encounter Diagnosis: Bee sting, accidental or unintentional, initial encounter, Cellulitis of right upper extremity, History of systemic reaction to bee sting [facility] Office Visit On: 29-Feb-2016 10:59 Encounter Reason: InjectionsEncounter Diagnosis: VACCINE AGAINST INFLUENZA (V04.81) End: 29-Feb-2016 12:11 [facility] Phone Encounter On: 15-Feb-2016 13:20 Encounter Diagnosis: Breast screening End: 15-Feb-2016 13:25 [facility] Nurse Visit (Non-[place]) On: 25-Jan-2016 10:37 Encounter Reason: Nurse procedure visit - The symptoms have been associated with other (A1C).Encounter Diagnosis: Diabetes mellitus type II, controlled End: 26-Jan-2016 14:00 [facility] Office Visit On: 18-Jan-2016 10:33 Encounter Reason: Wrist Pain - This condition occurred without any known injury. The patient is right hand dominant. The injury involved the right wrist. This occurred 6 day(s) ago. Symptoms include wrist pain and decrea End: 18-Jan-2016 18:50 sed range of motion. Symptoms are located in the right wrist. There is no radiation. The symptoms occur constantly. Current treatment includes ice. Previous presentation included pain in the wrist.Encounter Diagnosis: Wrist pain, acute, right, Tendonitis of wrist, right [facility] Office Visit On: 11-Jan-2016 8:14 Encounter Reason: Follow up for chronic medical issues - The patient feels well with minor complaints (Still has some nausea, decreased appetite, and diarrhea) and has decreased energy level. Patient has been compliant w End: 11-Jan-2016 10:33 ith instructions. Current medication use: compliant with dosing regimen. Patient sleeps 5 hours per night. Impact of disease: emotional impact-mild. Nutrition: balanced diet and supplemental vitamins. T he medical issues the patient is following up for include blood sugar issues, cardiac issues, gastric reflux, high blood pressure, high cholesterol and other (hx. dvt, chronic venous stasis, hx. GI blee d/anemia, DDD, IBS, glaucoma suspect, vitamin d def., venous insuff., overweight ).Encounter Diagnosis: Diabetes mellitus type II, controlled, Irritable bowel syndrome, Hypertension, benign, Current nonsmoker (Renamed from Current non-smoker), Vitamin D deficiency, unspecified, GI bleed, History of DVT (deep vein thrombosis), Bleeding ulcer, Early satiety, Hiatal hernia [facility] Office Visit On: 19-Oct-2015 11:40 Encounter Reason: Follow up for chronic medical issues - The patient feels well with minor complaints and has decreased energy level. Patient has been compliant with instructions. Current medication use: compliant with d End: 19-Oct-2015 12:55 osing regimen. Patient sleeps 5 hours per night. Impact of disease: emotional impact- mild. Nutrition: balanced diet and supplemental vitamins. The medical issues the patient is following up for include blood sugar issues, cardiac issues, gastric reflux, high blood pressure, high cholesterol and other (hx. dvt, chronic venous stasis, hx. GI bleed/anemia, DDD, IBS, glaucoma suspect, vitamin d def., venous insuff., overweight ).Encounter Diagnosis: Diabetes mellitus type II, controlled, Current nonsmoker (Renamed from Current non- smoker), Ingrown toenail, Vitamin D deficiency, unspecified, Coronary artery disease, Venous (peripheral) insufficiency, Lymphedema, limb, Hypertension, benign, Arthritis, Glaucoma suspect, Chronic stasis dermatitis, Low back pain, episodic, Hypercholesteremia, GERD (gastroesophageal reflux disease), Diabetic retinopathy, background, Bleeding ulcer, Anemia, Degeneration of intervertebral disc of lumbar region, History of DVT (deep vein thrombosis), Irritable bowel syndrome, Sleep disorder, Obesity, Shoulder pain, right, BMI 33.0-33.9,adult, 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 The patient does not feel well and has decreased energy level. Patient has been compliant with instructions. Current medication use: co End: 22-Sep-2015 13:38 mpliant with dosing regimen. Patient sleeps 7 hours per night. Impact of disease: emotional impact-mild. Nutrition: balanced diet and supplemental vitamins. Hospital procedures performed were blood transfusion.Encounter Diagnosis: Current nonsmoker (Renamed from Current non-smoker), GERD (gastroesophageal reflux disease), Bleeding ulcer, History of DVT (deep vein thrombosis) [facility] Phone Encounter On: 08-Sep-2015 13:49 [facility] End: 08-Sep-2015 13:50 Office Visit On: 07-Sep-2015 9:23 Encounter Reason: Back Pain - This condition occurred without any known injury. The injury involved the lower back. This occurred 3 day(s) ago at home. Symptoms include back pain. Symptoms are located in the right lower End: 07-Sep-2015 10:24 back. The patient describes the pain as sharp. The patient describes symptoms as worsening. Symptoms are exacerbated by walking down stairs (walking in general). Symptoms are not relieved by rest, ice, heat, recumbency, nonsteroidal anti-inflammatory drugs, acetaminophen or opioid analgesics. Associated symptoms do not include fever, night sweats, abdominal pain, general malaise, weight loss, arm numb ness, leg numbness, arm weakness, leg weakness, urinary incontinence, fecal incontinence, urinary retention or rash localized to the area of pain. The patient is not currently being treated for this pro blem. Previous presentation included lower back pain.Encounter Diagnosis: Low back pain, episodic [facility] Phone Encounter On: 03-Sep-2015 8:49 [facility] End: 03-Sep-2015 8:52 Office Visit On: 31-Aug-2015 10:58 Encounter Reason: Hematuria - Symptoms include bright red urine. Onset was sudden 3 day(s) ago. There is no known event that preceded symptom onset. The symptoms occur intermittently. The episodes occur daily. The patien End: 31-Aug-2015 11:35 t describes this as unchanged. Symptoms are not exacerbated by activity, sports, prolonged sitting or prolonged standing. Symptoms are not relieved by rest, limited activity or increased fluid intake. A ssociated symptoms do not include pelvic pain, back pain, bladder spasm, incontinence, vaginal discharge, vaginal itching, fatigue, fever, chills, nausea, vomiting, edema, sore throat or rash. The patie nt is not currently being treated for this problem. By report there is good compliance with treatment. Previous presentation included hematuria.Encounter Diagnosis: Hematuria [facility] Phone Encounter On: 17-Aug-2015 15:24 [facility] End: 17-Aug-2015 15:25 Office Visit On: 03-Aug-2015 9:36 Encounter Reason: Arm pain - The onset of the pain has been gradual and has been occurring in a persistent pattern for 6 months. The course has been increasing. The pain is described as moderate. The pain is described a End: 03-Aug-2015 10:26 s being located in the right humerus. The pain is aggravated by reaching and lifting. The pain is relieved by nothing. Note for Pain: My rt shoulder hurt very bad since late Jan, chiropracter worked o n it with minimal result Cannot elevate rt shoulder. There was no precipitating event Encounter Diagnosis: Shoulder pain, right [facility] Phone Encounter On: 31-Jul-2015 15:20 [facility] End: 31-Jul-2015 15:21 Phone Encounter On: 20-Jul-2015 14:05 [facility] End: 20-Jul-2015 14:06 Phone Encounter On: 02-Jul-2015 13:22 [facility] End: 02-Jul-2015 13:26 Historical Summary On: 30-Jun-2015 12:38 [facility] End: 30-Jun-2015 12:39 Phone Encounter On: 19-Jun-2015 13:58 [facility] End: 19-Jun-2015 14:04 Office Visit On: 18-Jun-2015 11:07 Encounter Reason: Annual Medicare Exam - The patient had reviewed and updated the family history, medication/s, past medical history and social history. Yes the patient did have a mini mental status exam done today. The End: 22-Jun-2015 6:22 activities of daily living the patient needs help with are shopping for groceries (daughter and grand daughter help her ) and housework. The patient has had urinary incontinence, driven in past 6 months (not drive at night) and put handrails in bathroom, but the patient has not had fecal incontinence, missed or ran out of medications to soon, fallen in the past 6 months, gotten lost, has a medalert ne cklace or bracelet or put area rugs through house. The patient has completed the following preventative measures: PAP smear (over 70 ), mammography (02-16-2015) and colonoscopy (2008). The patient does n ot have durable power of trademark attorney or living will. The patient has noticed lack of energy. Other providers contributing to the patient's care are gastrologist (Dr. Oates ) and other: (Opthalm: Dr. Hebert ).Encounter Diagnosis: Encounter for Medicare annual wellness exam, Venous (peripheral) insufficiency, BMI 33.0-33.9,adult, Diabetes mellitus type II, controlled, Degenerative disc disease, Coronary artery disease, intermediate current use of 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 therapy, Encounter for screening for malignant neoplasm of cervix, GERD (gastroesophageal reflux disease), Chronic Stasis Dermatitis 454.1, Vitamin D deficiency, unspecified, Arthritis, Diabetic retinopathy, background, Lymphedema, limb, Irritable bowel syndrome, Sleep disorder, Obesity, History of DVT (deep vein thrombosis), Glaucoma suspect, Hypertension, benign, Hypercholesteremia, Right shoulder tendinitis [facility] Phone Encounter On: 25-May-2015 15:42 [facility] End: 25-May-2015 15:45 Phone Encounter On: 14-May-2015 15:32 [facility] End: 14-May-2015 15:33 Phone Encounter On: 27-Apr-2015 16:31 [facility] End: 27-Apr-2015 16:32 Phone Encounter On: 30-Mar-2015 16:29 [facility] End: 30-Mar-2015 16:29 Phone Encounter On: 16-Mar-2015 15:27 [facility] End: 16-Mar-2015 15:29 Phone Encounter On: 03-Mar-2015 13:19 [facility] End: 03-Mar-2015 13:20 Office Visit On: 02-Mar-2015 11:33 Encounter Reason: Follow up for chronic medical issues - The patient feels well with minor complaints and has decreased energy level. Patient has been compliant with instructions. Current medication use: no side effects, End: 02-Mar-2015 12:31 compliant with dosing regimen and considered effective by patient. Patient sleeps 7 hours per night. Impact of disease: emotional impact-mild. Nutrition: balanced diet and supplemental vitamins. The me dical issues the patient is following up for include blood sugar issues, cardiac issues, gastric reflux, high blood pressure, high cholesterol and other (obesity, venous insuff., sleep disorder, DDD, hx . DVT, vitamin d def., IBS, diabetic retinopathy ).Encounter Diagnosis: Diabetes, Type II, controlled (250.00), VACCINE AGAINST INFLUENZA (V04.81), Coronary Artery Disease (414.00), Lymphedema (457.1), Background diabetic retinopathy (362.01), Vitamin D deficiency, unspecified (268.9), Obesity (278.00), arthritis,unspecified (716.90), Well Woman Exam , Medicare (V76.2) (Renamed from Well Woman Exam , Medicare (V76.2, V72.31)), GERD (530.81), VENOUS (PERIPHERAL) INSUFFICIENCY, UNSPECIFIED (459.81), Degenerative Disc Disease (722.6), GLAUCOMA SUSPECT, NOS (365.00), Anticoagulant long-term use (V58.61), Hypertension,benign(401.1), History of DVT of lower extremity (V12.51), Sleep disorder (780.50), Irritable bowel syndrome (564.1), Chronic Stasis Dermatitis 454.1, Hypercholesteremia (272.0) [facility] Phone Encounter On: 17-Feb-2015 11:17 [facility] End: 17-Feb-2015 11:19 Phone Encounter On: 26-Jan-2015 14:00 [facility] End: 26-Jan-2015 14:01 Phone Encounter On: 06-Jan-2015 13:23 [facility] End: 06-Jan-2015 13:25 Phone Encounter On: 29-Dec-2014 17:53 [facility] End: 29-Dec-2014 17:54 Phone Encounter On: 29-Dec-2014 10:42 Encounter Diagnosis: Anticoagulant long-term use (V58.61) End: 29-Dec-2014 10:44 [facility] Phone Encounter On: 02-Dec-2014 12:58 [facility] End: 02-Dec-2014 13:01 Office Visit On: 27-Nov-2014 11:22 Encounter Reason: Follow up for chronic medical issues - The patient feels well with minor complaints and is sleeping well. Patient has been compliant with instructions. Current medication use: no side effects, compliant End: 27-Nov-2014 12:22 with dosing regimen and considered effective by patient. Patient sleeps 5 hours per night. Impact of disease: emotional impact-mild. Nutrition: balanced diet and supplemental vitamins. The medical issu es the patient is following up for include blood sugar issues, cardiac issues, gastric reflux, high blood pressure, high cholesterol, hypothyroid and other (IBS, glaucoma suspect, diabetic retinopathy, DDD, chronic venous insuff., vitamin d def., hx. DVT ).Encounter Diagnosis: Diabetes, Type II, controlled (250.00), Well Woman Exam , Medicare (V76.2) (Renamed from [facility] Exam , Medicare (V76.2, V72.31)), arthritis,unspecified (716.90), VENOUS (PERIPHERAL) INSUFFICIENCY, UNSPECIFIED (459.81), Anticoagulant long-term use (V58.61), GERD (530.81), Obesity (278.00), Lymphedema (457.1), Coronary Artery Disease (414.00), Vitamin D deficiency, unspecified (268.9), Background diabetic retinopathy (362.01), Irritable bowel syndrome (564.1), Sleep disorder (780.50), Hypercholesteremia (272.0), Chronic Stasis Dermatitis 454.1, History of DVT of lower extremity (V12.51), GLAUCOMA SUSPECT, NOS (365.00), Degenerative Disc Disease (722.6), Hypertension,benign(401.1), Annual Medicare Physical (V70.0), CERUMEN IMPACTION (380.4) [facility] Phone Encounter On: 18-Nov-2014 17:18 [facility] End: 18-Nov-2014 17:20 Office Visit On: 14-Oct-2014 17:20 [facility] End: 14-Oct-2014 17:22 Phone Encounter On: 08-Sep-2014 17:21 [facility] End: 08-Sep-2014 17:22 Phone Encounter On: 11-Aug-2014 17:32 [facility] End: 11-Aug-2014 17:34 Phone Encounter On: 14-Jul-2014 15:52 [facility] End: 14-Jul-2014 15:53 Office Visit On: 19-Jun-2014 9:12 Encounter Diagnosis: Decubitus ulcer of buttock, left, stage I End: 19-Jun-2014 10:05 [facility] Phone Encounter On: 04-Jun-2014 13:01 [facility] End: 04-Jun-2014 13:02 Phone Encounter On: 12-May-2014 14:27 [facility] End: 12-May-2014 14:28 Office Visit On: 28-Apr-2014 9:40 Encounter Reason: Follow up for chronic medical issues - The patient feels well with minor complaints, has good energy level and is sleeping well. Patient has been compliant with instructions. Current medication use: no End: 29-Apr-2014 16:34 side effects, compliant with dosing regimen and considered effective by patient. Patient sleeps 7 hours per night. Impact of disease: emotional impact-mild. Nutrition: balanced diet and supplemental vit amins. The medical issues the patient is following up for include blood sugar issues, cardiac issues, high blood pressure, high cholesterol and other (obesity, venous insuff., IBS,hx. DVT, vitamin d def ., diabetic retinopathy, glaucoma,chronic dermatitis, lymphedema )., [ADDITIONAL REASON] Annual Medicare Exam - Yes the patient did have a mini mental status exam done t nilam. The patient has driven in past 6 months and put area rugs through house. The patient has completed the following preventative measures: PAP smear (probably 5 years ago), mammography (2013) and col onoscopy (5-[address] Oates). The patient has noticed nothing from the geriatic depression scale. Other providers contributing to the patient's care are chief resource officer (Dr. Martinez) and other: (Glaucoma screens by Dr. Hebert). Encounter Diagnosis: Diabetes, Type II, controlled (250.00), VENOUS (PERIPHERAL) INSUFFICIENCY, UNSPECIFIED (459.81), GLAUCOMA SUSPECT, NOS (365.00), History of DVT of lower extremity (V12.51), Umbilical discharge, Hernia, umbilical (553.1), Lymphedema (457.1), arthritis,unspecified (716.90), Well Woman Exam , Medicare (V76.2) (Renamed from Well Woman Exam , Medicare (V76.2, V72.31)), Anticoagulant long- term use (V58.61), Hypertension,benign(401.1), Background diabetic retinopathy (362.01), Hypercholesteremia (272.0), Sleep disorder (780.50), Degenerative Disc Disease (722.6), Chronic Stasis Dermatitis 454.1, Irritable bowel syndrome (564.1), Obesity (278.00), GERD (530.81), Vitamin D deficiency, unspecified (268.9), Coronary Artery Disease (414.00), Annual Medicare Physical (V70.0), Need for vaccination against Streptococcus pneumoniae [facility] Phone Encounter On: 17-Apr-2014 13:24 [facility] End: 17-Apr-2014 13:25 Office Visit On: 31-Mar-2014 11:10 Encounter Reason: Injections - The medication the patient is here to receive is other (Flu shot).Encounter Diagnosis: VACCINE AGAINST INFLUENZA (V04.81) End: 01-Apr-2014 7:34 [facility] Phone Encounter On: 04-Mar-2014 15:02 [facility] End: 04-Mar-2014 15:04 Office Visit On: 10-Feb-2014 11:22 Encounter Reason: Skin Check - Symptoms include new skin lesion (naval seeping clear fluid, with a terrible odor). The patient describes the lesion(s) as raised, nontender, red, itchy and draining. Onset was sudden 2 day End: 10-Feb-2014 12:16 (s) ago. Lesion progression includes growing larger, changing shape and changing color. Symptoms are relieved by topical corticosteroids. Current treatment includes topical corticosteroids.Encounter Diagnosis: Umbilical discharge [facility] Phone Encounter On: 06-Feb-2014 14:32 [facility] End: 06-Feb-2014 14:32 Phone Encounter On: 06-Feb-2014 9:36 Encounter Diagnosis: Breast screening End: 06-Feb-2014 11:32 [facility] Phone Encounter On: 17-Jan-2014 15:45 [facility] End: 17-Jan-2014 15:46 Phone Encounter On: 06-Jan-2014 17:16 [facility] End: 06-Jan-2014 17:17 Office Visit On: 23-Dec-2013 12:54 Encounter Reason: Follow up for chronic medical issues - The patient feels well with no complaints, has decreased energy level and is sleeping well. Patient has been compliant with instructions. Current medication use: n End: 23-Dec-2013 13:39 o side effects, compliant with dosing regimen and considered effective by patient. Patient sleeps 6 hours per night. Impact of disease: emotional impact-mild. Nutrition: balanced diet and supplemental v itamins. The medical issues the patient is following up for include blood sugar issues, cardiac issues, gastric reflux, high blood pressure, high cholesterol, other (hx. DVT, obesity, Glaucoma, vitamin d def., IBS, lymphedema ) and peripheral vascular disease., [ADDITIONAL REASON] Follow up tests - Date: (10/07/13 blood work). Encounter Diagnosis: Diabetes, Type II, controlled (250.00), Hypercholesteremia (272.0), Anticoagulant long-term use (V58.61), Lymphedema (457.1), Degenerative Disc Disease (722.6), Irritable bowel syndrome (564.1), Obesity (278.00), Sleep disorder (780.50), Hypertension,benign(401.1), GLAUCOMA SUSPECT, NOS (365.00), Hernia, umbilical (553.1), VENOUS (PERIPHERAL) INSUFFICIENCY, UNSPECIFIED (459.81), Coronary Artery Disease (414.00), History of DVT of lower extremity (V12.51), Well Woman Exam , Medicare (V76.2) (Renamed from Well Woman Exam , Medicare (V76.2, V72.31)), arthritis,unspecified (716.90), Chronic Stasis Dermatitis 454.1, Vitamin D deficiency, unspecified (268.9), Background diabetic retinopathy (362.01), GERD (530.81) [facility] Lab Order On: 17-Dec-2013 8:04 Encounter Diagnosis: History of DVT of lower extremity (V12.51) End: 17-Dec-2013 8:05 [facility] Phone Encounter On: 11-Nov-2013 13:02 [facility] End: 11-Nov-2013 13:04 Phone Encounter On: 23-Sep-2013 16:46 [facility] End: 23-Sep-2013 16:47 Office Visit On: 23-Sep-2013 13:02 Encounter Reason: Follow up for chronic medical issues - The patient feels well with minor complaints and has decreased energy level. Patient has been compliant with instructions. Current medication use: no side effects, End: 23-Sep-2013 13:25 compliant with dosing regimen and considered effective by patient. Patient sleeps 7 hours per night. Impact of disease: emotional impact-mild. Nutrition: balanced diet and supplemental vitamins. The me dical issues the patient is following up for include blood sugar issues, cardiac issues, gastric reflux, high blood pressure, high cholesterol, other (hx. DVT, obesity, Glaucoma, vitamin d def., IBS, lymphedema ) and peripheral vascular disease. Encounter Diagnosis: Diabetes, Type II, controlled (250.00), History of DVT of lower extremity (V12.51), Sleep disorder (780.50), Obesity (278.00), GLAUCOMA SUSPECT, NOS (365.00), Hypertension,benign(401.1), Irritable bowel syndrome (564.1), Anticoagulant long-term use (V58.61), Hypercholesteremia (272.0), Degenerative Disc Disease (722.6), Well Woman Exam , Medicare (V76.2) (Renamed from [employer] Exam , Medicare (V76.2, V72.31)), Lymphedema (457.1), Hernia, umbilical (553.1), Vitamin D deficiency, unspecified (268.9), Chronic Stasis Dermatitis 454.1, GERD (530.81), Background diabetic retinopathy (362.01), arthritis,unspecified (716.90), VENOUS (PERIPHERAL) INSUFFICIENCY, UNSPECIFIED (459.81), Coronary Artery Disease (414.00) [facility] Office Visit On: 29-Apr-2013 10:09 Encounter Reason: Follow up for chronic medical issues - The patient feels well with minor complaints, has decreased energy level and is sleeping well. Patient has been compliant with instructions. Current medication use End: 29-Apr-2013 11:15 : no side effects, compliant with dosing regimen and considered effective by patient. Patient sleeps 7 hours per night. Impact of disease: emotional impact-mild. Nutrition: balanced diet and supplementa l vitamins. The medical issues the patient is following up for include blood sugar issues, cardiac issues, gastric reflux, high blood pressure, high cholesterol, osteoarthritis and other (venous insuff., vitamin d def., IBS, DDD, glaucoma, obesity ). Encounter Diagnosis: Diabetes, Type II, controlled (250.00), Anticoagulant long- term use (V58.61), Chronic Stasis Dermatitis 454.1, Irritable bowel syndrome (564.1), Hypercalcemia (275.42), Abnormal TSH (794.5), Degenerative Disc Disease (722.6), Hypercholesteremia (272.0), Obesity (278.00), Sleep disorder (780.50), Lipoma (Renamed from Fatty tumor), Hypertension,benign(401.1), Vitamin D deficiency, unspecified (268.9), GLAUCOMA SUSPECT, NOS (365.00), Well Woman Exam , Medicare (V76.2) (Renamed from Well Woman Exam , Medicare (V76.2, V72.31)), Background diabetic retinopathy (362.01), GERD (530.81), VENOUS (PERIPHERAL) INSUFFICIENCY, UNSPECIFIED (459.81), arthritis,unspecified (716.90), History of DVT of lower extremity (V12.51), Lymphedema (457.1) [facility] Office Visit On: 08-Apr-2013 11:08 Encounter Reason: Annual Medicare Exam - The patient had reviewed and updated the family history, medication/s, past medical history and social history. Yes the patient did have ( Alert) a mini mental status exam do End: 08-Apr-2013 11:47 ne today. The activities of daily living the patient needs help with are housework. The patient has had urinary incontinence, driven in past 6 months and put handrails in bathroom, but the patient has n ot had fecal incontinence, missed or ran out of medications to soon, fallen in the past 6 months, gotten lost, has a medalert necklace or bracelet or put area rugs through house. The patient has complet ed the following preventative measures: PAP smear (unsure of last timing, within last 5 yrs?), mammography (2012) and colonoscopy (2008 Dr. oates). The patient does not have durable power of trademark attorney o r living will. The patient has noticed lack of energy. Other providers contributing to the patient's care are loan clerk.Encounter Diagnosis: Annual Medicare Physical (V70.0), Itching (698.9) [facility] Office Visit On: 08-Mar-2013 11:41 Encounter Reason: Cellulitis - The last clinic visit was 1 week(s) ago. No changes in management were made at the last visit. Symptoms include pain, swelling, tenderness, warmth, drainage, edema and erythema, while sympt End: 08-Mar-2013 13:18 oms do not include fever. Symptoms are located on the left leg. The patient describes the pain as aching. Onset was sudden 3 day(s) ago. There is no known event that preceded symptom onset. The symptoms occur constantly. The patient describes this as moderate in severity and worsening. Associated symptoms include local lymphadenopathy, while associated symptoms do not include chills, joint stiffness or nausea.Encounter Diagnosis: Chronic Stasis Dermatitis 454.1, Cellulitis/ Abcess of leg (682.6), Abnormal TSH (794.5), Anticoagulant long-term use (V58.61), VACCINE AGAINST INFLUENZA (V04.81) [facility] Office Visit On: 01-Mar-2013 12:03 Encounter Reason: Cellulitis - The last clinic visit was 1 day(s) ago. No changes in management were made at the last visit. Symptoms include pain, swelling, tenderness, warmth, drainage, edema and erythema, while sympto End: 01-Mar-2013 12:40 ms do not include fever. Symptoms are located on the left leg. The patient describes the pain as aching. Onset was sudden 3 day(s) ago. There is no known event that preceded symptom onset. The symptoms occur constantly. The patient describes this as moderate in severity and worsening. Associated symptoms include local lymphadenopathy, while associated symptoms do not include chills, joint stiffness or nausea.Encounter Diagnosis: Chronic Stasis Dermatitis 454.1, Itching (698.9), Cellulitis/ Abcess of leg (682.6) [facility] Office Visit On: 28-Feb-2013 12:38 Encounter Reason: Cellulitis - The last clinic visit was 1 day(s) ago. No changes in management were made at the last visit. Symptoms include pain, swelling, tenderness, warmth, drainage, edema and erythema, while sympto End: 28-Feb-2013 14:40 ms do not include fever. Symptoms are located on the left leg. The patient describes the pain as aching. Onset was sudden 3 day(s) ago. There is no known event that preceded symptom onset. The symptoms occur constantly. The patient describes this as moderate in severity and worsening. Associated symptoms include local lymphadenopathy, while associated symptoms do not include chills, joint stiffness or nausea.Encounter Diagnosis: Itching (698.9), Obesity (278.00), Chronic Stasis Dermatitis 454.1, Cellulitis/ Abcess of leg (682.6), Rash (782.1) [facility] Lab Order On: 12-Feb-2013 9:09 Encounter Diagnosis: Abnormal TSH (794.5) End: 12-Feb-2013 9:10 [facility] Office Visit On: 11-Feb-2013 12:57 Encounter Reason: Follow up tests - Date: (02/07/13 labs).Encounter Diagnosis: Abnormal TSH (794.5), Itching (698.9) End: 11-Feb-2013 13:42 [facility] Office Visit On: 07-Feb-2013 11:49 Encounter Reason: Itching - The last clinic visit was 3 week(s) ago. No changes in management were made at the last visit. Symptoms include pruritus and rash. Symptom locations include the arms and the legs (left leg). O End: 07-Feb-2013 12:43 nset was sudden. Onset followed a new medication. The symptoms occur constantly. The patient describes this as severe and worsening.Encounter Diagnosis: Itching (698.9), Rash (782.1) [facility] Phone Encounter On: 30-Jan-2013 14:38 Encounter Diagnosis: Unspecified Diagnosis End: 30-Jan-2013 14:49 [facility] Office Visit On: 25-Jan-2013 12:59 Encounter Reason: Follow up acute care visit - The patient feels the same. Patient has been compliant with instructions. Current medication use: compliant with dosing regimen. Patient sleeps 7 hours per night. Impact of End: 25-Jan-2013 13:34 disease: emotional impact-mild. Nutrition: balanced diet and supplemental vitamins. The medical issues the patient is following up for include cellulitis.Encounter Diagnosis: Chronic Stasis Dermatitis 454.1, Rash (782.1) [facility] Office Visit On: 14-Jan-2013 9:46 Encounter Reason: Follow up for chronic medical issues - The patient feels well with minor complaints and has decreased energy level. Patient has been compliant with instructions. Current medication use: no side effects, End: 14-Jan-2013 17:49 compliant with dosing regimen and considered effective by patient. Patient sleeps 7 hours per night. Impact of disease: emotional impact-mild. Nutrition: balanced diet and supplemental vitamins. The me dical issues the patient is following up for include blood sugar issues, cardiac issues, gastric reflux, high blood pressure, high cholesterol and other (venous insuff., sleep disorder, IBS, arthiritis, DDD, glaucoma, sleed disorder, obesity ). Encounter Diagnosis: Cellulitis/ Abcess of leg (682.6), Diabetes, Type II, controlled (250.00), Degenerative Disc Disease (722.6), Irritable bowel syndrome (564.1), Sleep disorder (780.50), arthritis,unspecified (716.90), Hernia, umbilical (553.1) , Vitamin D deficiency, unspecified (268.9), Hypercalcemia (275.42), Well Woman Exam , Medicare (V76.2) (Renamed from [employer] Woman Exam , Medicare (V76.2, V72.31)), GLAUCOMA SUSPECT, NOS (365.00), Hypercholesteremia (272.0), VENOUS (PERIPHERAL) INSUFFICIENCY, UNSPECIFIED (459.81), GERD (530.81), Cellulitis, umbilical (682.2), Anticoagulant long-term use (V58.61), Chronic Stasis Dermatitis 454.1, Background diabetic retinopathy (362.01), Hypertension,benign(401.1), Obesity (278.00), Lipoma (214.9) [facility] Phone Encounter On: 08-Jan-2013 17:30 Encounter Diagnosis: Unspecified Diagnosis End: 08-Jan-2013 17:34 [facility] Office Visit On: 08-Jan-2013 11:20 Encounter Reason: Follow up hospital - Reason for ER visit: note: (cellulitis). The patient feels well with minor complaints and is sleeping well. Patient has been compliant with instructions. Current medication use: no End: 08-Jan-2013 11:51 side effects, compliant with dosing regimen and considered effective by patient. Patient sleeps 6 hours per night. Note for Follow up hospital: leg was still weeping went to ER Monday as was draining yellow told to put on bacitracin Zinc bid and wash with safeguard and bandage Has been on levoquin and also on coumadin, [ADDITIONAL REASON] Transition into care - The patient most recently received care from a hospital. Encounter Diagnosis: Cellulitis/ Abcess of leg (682.6), Anticoagulant long-term use (V58.61), Cellulitis, umbilical (682.2) [facility] Office Visit On: 24-Dec-2012 9:32 Encounter Reason: Skin Problems - The onset of the skin problems has been sudden and they have been occurring in a persistent pattern for 1 week. The course has been increasing. The problem is characterized as infection. End: 24-Dec-2012 10:10 Lesions are described as red. There has been no associated fatigue, fever, itching or pain.Encounter Diagnosis: Cellulitis, umbilical (682.2), Hernia, umbilical (553.1) [facility] Office Visit On: 08-Oct-2012 10:01 Encounter Reason: Follow up tests - Date: (august and september 2012)., [ADDITIONAL REASON] Follow up for chronic medical issues - The patient feels well with minor complai End: 08-Oct-2012 11:05 nts and has decreased energy level. Patient has been compliant with instructions. Current medication use: no side effects, compliant with dosing regimen and considered effective by patient. Patient slee ps 5 (wakes thru night) hours per night. Impact of disease: emotional impact-mild. Nutrition: balanced diet and supplemental vitamins. The medical issues the patient is following up for include blood de paz gar issues, cardiac issues, gastric reflux, high blood pressure, high cholesterol and other (chronic dermatitis, DDD, IBS, venous insuff., vitamin d def., glaucoma, hx. DVT, obesity ). Encounter Diagnosis: Diabetes, Type II, controlled (250.00), Hypercholesteremia (272.0), Vitamin D deficiency, unspecified (268.9), Hypertension,benign(401.1), Sleep disorder (780.50), Degenerative Disc Disease (722.6), arthritis,unspecified (716.90), Background diabetic retinopathy (362.01), GERD (530.81), VENOUS (PERIPHERAL) INSUFFICIENCY, UNSPECIFIED (459.81), Chronic Stasis Dermatitis 454.1, Lipoma (214.9), Obesity (278.00), Irritable bowel syndrome (564.1), GLAUCOMA SUSPECT, NOS (365.00), Well Woman Exam , Medicare (V76.2) (Renamed from Well Woman Exam , Medicare (V76.2, V72.31)), Hypercalcemia (275.42) [facility] Phone Encounter On: 03-Sep-2012 14:54 [facility] End: 03-Sep-2012 14:56 Office Visit On: 28-Jun-2012 11:47 Encounter Reason: Follow up acute care visit - The patient feeling better since last seen and improving. Patient has been compliant with instructions. Current medication use: no side effects, compliant with dosing regime End: 28-Jun-2012 12:28 n and considered effective by patient. Patient sleeps 7 hours per night. Impact of disease: emotional impact-mild. Nutrition: balanced diet and supplemental vitamins. The medical issues the patient is f ollowing up for include other (lower extrem edema ).Encounter Diagnosis: VENOUS (PERIPHERAL) INSUFFICIENCY, UNSPECIFIED (459.81), Chronic Stasis Dermatitis 454.1, Swelling of limb (729.81), Lipoma (214.9) [facility] Annotation/Addendum On: 14-Jun-2012 9:41 Encounter Diagnosis: Chronic Stasis Dermatitis 454.1 End: 14-Jun-2012 9:42 [facility] Office Visit On: 14-Jun-2012 8:49 Encounter Diagnosis: Chronic Stasis Dermatitis 454.1, Swelling of limb (729.81) End: 14-Jun-2012 9:40 [facility] Office Visit On: 21-May-2012 10:23 Encounter Reason: Follow up for chronic medical issues - The patient feels well with minor complaints and has decreased energy level. Patient has been compliant with instructions. Current medication use: no side effects, End: 21-May-2012 10:55 compliant with dosing regimen and considered effective by patient. Patient sleeps 5 hours per night. Impact of disease: emotional impact-mild. Nutrition: balanced diet and supplemental vitamins. The ok dical issues the patient is following up for include blood sugar issues, cardiac issues, gastric reflux, high blood pressure, high cholesterol and other (chronic dermatitis, DDD, IBS, venous insuff., vitamin d def., glaucoma, hx. DVT, obesity ). Encounter Diagnosis: Diabetes, Type II, controlled (250.00), Vitamin D deficiency, unspecified (268.9), Well Woman Exam , Medicare (V76.2) (Renamed from [employer] Woman Exam , Medicare (V76.2, V72.31)), Irritable bowel syndrome (564.1), VENOUS (PERIPHERAL) INSUFFICIENCY, UNSPECIFIED (459.81), Hypertension,benign(401.1), Obesity (278.00), GERD (530.81), arthritis,unspecified (716.90), Limb pain (729.5), Background diabetic retinopathy (362.01), GLAUCOMA SUSPECT, NOS (365.00), BRONCHITIS, NOT SPECIFIED ACUTE OR CHRONIC (490.), Cough (786.2), Degenerative Disc Disease (722.6), Chronic Stasis Dermatitis 454.1, Hypercholesteremia (272.0), Sleep disorder (780.50), DVT (453.42) [facility] Office Visit On: 19-Mar-2012 10:46 Encounter Reason: Cough - The onset of the cough has been sudden. The cough is characterized as dry. The amount of sputum produced is scanty. The cough occurs all the time. The symptoms are aggravated by supine posture. End: 19-Mar-2012 16:16 The symptoms have been associated with sore throat, while the symptoms have not been associated with fever, headache, hoarseness, runny nose or wheezing. Note for Cough : a little cough not as deep Encounter Diagnosis: BRONCHITIS, NOT SPECIFIED ACUTE OR CHRONIC (490.), Cough (786.2) [facility] Office Visit On: 12-Mar-2012 14:33 Encounter Reason: Injections - The medication the patient is here to receive is other (right knee injection 2cc marcaine, 1cc kenalog ).Encounter Diagnosis: Lower Leg Pain (719.46) End: 12-Mar-2012 14:45 [facility] Office Visit On: 20-Feb-2012 10:50 Encounter Diagnosis: VACCINE AGAINST INFLUENZA (V04.81) End: 20-Feb-2012 19:24 [facility] Office Visit On: 20-Feb-2012 10:25 Encounter Reason: Follow up for chronic medical issues - The patient feels well with minor complaints and is sleeping well. Patient has been compliant with instructions. Current medication use: no side effects, compliant End: 20-Feb-2012 10:47 with dosing regimen and considered effective by patient. Patient sleeps 8 hours per night. Impact of disease: emotional impact-mild. Nutrition: balanced diet and supplemental vitamins. The medical issu es the patient is following up for include asthma, blood sugar issues, cardiac issues, gastric reflux, high cholesterol, other (DVT, obesity, IBS, glaucoma, vitamin d def. ) and peripheral vascular disease.Encounter Diagnosis: Diabetes, Type II, controlled (250.00), VACCINE AGAINST INFLUENZA (V04.81), Hemorrhoids (455.8), arthritis,unspecified (716.90), Irritable bowel syndrome (564.1), Sleep disorder (780.50), Degenerative Disc Disease (722.6), Abnormal blood chemistry (790.6), Chronic Stasis Dermatitis 454.1, GLAUCOMA SUSPECT, NOS (365.00), Joint pain (719.4), VENOUS (PERIPHERAL) INSUFFICIENCY, UNSPECIFIED (459.81), Background diabetic retinopathy (362.01), Hypertension,benign(401.1), Vitamin D deficiency, unspecified (268.9), Well Woman Exam , Medicare (V76.2) (Renamed from Well Woman Exam , Medicare (V76.2, V72.31)), GERD (530.81), Obesity (278.00), Limb pain (729.5), Stasis Dermatitis, Hypercholesteremia (272.0), Low back pain (724.2), DVT (453.42), Swelling of limb (729.81), WWV, SYMPTOMS INVOLVING RESPIRATORY SYSTEM AND OTHER CHEST SYMPTOMS; HICCOUGH (786.8), Abnormal mammogram (793.80), Rash (782.1), Allergy to Zetia *ANTIHYPERLIPIDEMICS* (Renamed from Zetia *ANTIHYPERLIPIDEMICS*) [facility] Phone Encounter On: 24-Jan-2012 10:28 Encounter Diagnosis: Well Woman Exam , Medicare (V76.2) (Renamed from Well Woman Exam , Medicare (V76.2, V72.31)) End: 24-Jan-2012 10:31 [facility] Phone Encounter On: 16-Jan-2012 14:44 Encounter Diagnosis: DVT (453.42) End: 16-Jan-2012 14:45 [facility] Office Visit On: 14-Nov-2011 9:43 Encounter Reason: Follow up for chronic medical issues - The patient feels well with minor complaints and has decreased energy level. Patient has been compliant with instructions. Current medication use: no side effects, End: 14-Nov-2011 10:06 compliant with dosing regimen and considered effective by patient. Patient sleeps 6 hours per night. Impact of disease: emotional impact-mild. Nutrition: balanced diet and supplemental vitamins. The me dical issues the patient is following up for include blood sugar issues, cardiac issues, gastric reflux, high blood pressure, high cholesterol, hypothyroid and other (obesity, hx. DVT, DDD, vitamin d def., glaucoma ).Encounter Diagnosis: Diabetes, Type II, controlled (250.00), Limb pain (729.5), Low back pain (724.2), Hypercholesteremia (272.0), Obesity (278.00), Vitamin D deficiency, unspecified (268.9), Hypertension,benign(401.1), GERD (530.81), Abdominal Pain,General (789.07) [facility] Phone Encounter On: 07-Nov-2011 14:08 [facility] End: 07-Nov-2011 14:11 Office Visit On: 24-Oct-2011 10:39 Encounter Reason: Injections - The medication the patient is here to receive is other (cortisone).Encounter Diagnosis: Joint pain (719.4) End: 24-Oct-2011 11:08 [facility] Phone Encounter On: 21-Oct-2011 9:22 Encounter Diagnosis: Diabetes, Type II, controlled (250.00) End: 21-Oct-2011 9:27 [facility] Office Visit On: 08-Aug-2011 9:12 Encounter Reason: Follow up for chronic medical issues - The patient feels well with minor complaints and has decreased energy level. Patient has been compliant with instructions. Current medication use: no side effects, End: 08-Aug-2011 10:19 compliant with dosing regimen and considered effective by patient. Impact of disease: emotional impact-mild. Nutrition: balanced diet and supplemental vitamins. The medical issues the patient is follow ing up for include blood sugar issues, cardiac issues, gastric reflux, high blood pressure, high cholesterol, hypothyroid and other (obesity, hx. DVT, DDD, vitamin d def., glaucoma )., [ADDITIONAL REASON] Follow up, Laboratory Test Results - Date: (Jun 2011). Encounter Diagnosis: Diabetes, Type II, controlled (250.00), Chronic Stasis Dermatitis 454.1, VENOUS (PERIPHERAL) INSUFFICIENCY, UNSPECIFIED (459.81), Low back pain (724.2), Irritable bowel syndrome (564.1), Obesity (278.00), Hypertension,benign(401.1), Degenerative Disc Disease (722.6), Sleep disorder (780.50), Vitamin D deficiency, unspecified (268.9), Background diabetic retinopathy (362.01), Hypercholesteremia (272.0), GERD (530.81), DVT (453.42) [facility] Office Visit On: 12-Jul-2011 15:16 Encounter Reason: 1 week follow upEncounter Diagnosis: Cellulitis/ Abcess of leg (682.6) End: 12-Jul-2011 15:28 [facility] Office Visit On: 05-Jul-2011 14:17 Encounter Reason: Cellulitis - Symptoms include swelling, drainage and erythema, while symptoms do not include pain, warmth or fever. Symptoms are located on the left leg and on the right leg. Onset was sudden 3 day(s) a End: 05-Jul-2011 14:45 go. The symptoms occur constantly. The patient describes this as worsening. Associated symptoms include local lymphadenopathy, while associated symptoms do not include chills, joint stiffness or nausea.Encounter Diagnosis: Cellulitis/ Abcess of leg (682.6) [facility] Office Visit On: 02-May-2011 9:00 Encounter Reason: Follow up for chronic medical issues - The patient feels well with minor complaints and has decreased energy level. Patient has been compliant with instructions. Current medication use: no side effects, End: 02-May-2011 9:38 compliant with dosing regimen and considered effective by patient. Patient sleeps 7 hours per night. Impact of disease: emotional impact-mild. Nutrition: balanced diet and supplemental vitamins. The me dical issues the patient is following up for include blood sugar issues, cardiac issues, gastric reflux, high blood pressure, high cholesterol, hypothyroid and other (obesity, hx. DVT, DDD, vitamin d def., glaucoma ).Encounter Diagnosis: Diabetes, Type II, controlled (250.00), Background diabetic retinopathy (362.01), Vitamin D deficiency, unspecified (268.9), Obesity (278.00), Sleep disorder (780.50), GERD (530.81), Hypercholesteremia (272.0), Hypertension,benign(401.1), arthritis,unspecified (716.90), Degenerative Disc Disease (722.6), DVT (453.42), Lower Leg Pain (719.46), ACCIDENTAL FALL FROM ONE LEVEL TO ANOTHER NEC (E884.9) [facility] Phone Encounter On: 07-Mar-2011 10:04 [facility] End: 07-Mar-2011 10:06 Office Visit On: 28-Feb-2011 9:40 Encounter Diagnosis: DVT (453.42), Lower Leg Pain (719.46), Obesity (278.00), Diabetes, Type II, controlled (250.00), Vitamin D deficiency, unspecified (268.9), VACCINE AGAINST INFLUENZA (V04.81) End: 28-Feb-2011 10:10 [facility] Phone Encounter On: 28-Feb-2011 9:33 [facility] End: 28-Feb-2011 9:38 Office Visit On: 31-Jan-2011 16:21 Encounter Diagnosis: DVT (453.42) End: 31-Jan-2011 16:33 [facility] Office Visit On: 31-Jan-2011 10:51 Encounter Diagnosis: Limb pain (729.5), Degenerative Disc Disease (722.6), Obesity (278.00), Diabetes, Type II, controlled (250.00), Diarrhea (787.91), Irritable bowel syndrome (564.1), Hypertension,benign(401.1) End: 31-Jan-2011 11:34 [facility] Office Visit On: 18-Jan-2011 8:05 Encounter Reason: Injections - The medication the patient is here to receive is other (2cc marcaine, 1cc kenalog right knee ).Encounter Diagnosis: Lower Leg Pain (719.46) End: 18-Jan-2011 13:11 [facility] Office Visit On: 06-Jan-2011 13:21 Encounter Reason: Diarrhea - The onset of the diarrhea has been acute and has been occurring in an intermittent pattern for 2 years. The course has been increasing. The stools are watery. The volume of the stools is norm End: 06-Jan-2011 13:41 al. There has been no associated nausea, vomiting or weight loss. Note for Diarrhea: has seen Dr. Oates and he did colonoscopy (02/11)- and was told that her sx were r/t IBS. Encounter Diagnosis: Diabetes, Type II, controlled (250.00), Diarrhea (787.91), Low back pain (724.2), Lower Leg Pain (719.46) [facility] Office Visit On: 28-Jun-2010 13:31 Encounter Reason: Follow up for chronic medical issues - The patient feels well with minor complaints, has good energy level and is sleeping well. Patient has been compliant with instructions. Current medication use: no End: 28-Jun-2010 14:17 side effects, compliant with dosing regimen and considered effective by patient. Patient sleeps 7 hours per night. Impact of disease: emotional impact-mild. Nutrition: balanced diet and supplemental vit amins. The medical issues the patient is following up for include blood sugar issues, cardiac issues, gastric reflux, high blood pressure, high cholesterol and other (obesity, IBS, DDD, contact dermatitis ).Encounter Diagnosis: Diabetes, Type II, controlled (250.00), GERD (530.81), Stasis Dermatitis, VACCINE AGAINST INFLUENZA (V04.81), Irritable bowel syndrome (564.1), Sleep disorder (780.50), Hypercholesteremia (272.0), arthritis,unspecified (716.90), Hemorrhoids (455.8), Degenerative Disc Disease (722.6), Obesity (278.00), VENOUS (PERIPHERAL) INSUFFICIENCY, UNSPECIFIED (459.81), Hypertension,benign(401.1), GLAUCOMA SUSPECT, NOS (365.00), Dermatitis (692.9), Vitamin D deficiency, unspecified (268.9), Well Woman Exam (V72.31) (Pap,Mammo,Routine Female) [facility] Office Visit On: 21-Jun-2010 9:14 Encounter Reason: Rash - The onset of the rash has been sudden and has been occurring in a persistent pattern for 2 weeks. The course has been increasing. The rash is characterized as red, weeping and flat. The rash was End: 21-Jun-2010 9:30 first seen on sites of pressure (R hand). It spread to sites of pressure (bilatteral hands). There has been associated itching and pain (with sctaring).Encounter Diagnosis: Contact dermatitis and other eczema due to plants (except food) (692.6) [facility] Office Visit On: 10-May-2010 13:05 Encounter Reason: Rash - The onset of the rash has been acute and has been occurring in a persistent pattern for days (4). The course has been increasing. The rash is characterized as red and weeping. The rash was first End: 10-May-2010 13:35 seen on the upper extremity (left hand ). It spread to the upper extremity (right hand ). There has been associated itching.Encounter Diagnosis: Contact dermatitis and other eczema due to plants (except food) (692.6) [facility] Office Visit On: 29-Mar-2010 13:12 Encounter Reason: Injections - The medication the patient is here to receive is other (Influenza).Encounter Diagnosis: VACCINE AGAINST INFLUENZA (V04.81) End: 29-Mar-2010 13:16 [facility] Office Visit On: 08-Oct-2009 13:17 [facility] End: 08-Oct-2009 13:22 Office Visit On: 08-Oct-2009 12:44 Encounter Reason: Follow up, Laboratory Test Results - Date: (08/24 and 09/28). Encounter Diagnosis: Diabetes, Type II, controlled (250.00), Allergy to Zetia *ANTIHYPERLIPIDEMICS* (Renamed from Zetia *ANTIHYPERLIPIDEMICS*), End: 08-Oct-2009 13:17 Contact dermatitis and other eczema due to plants (except food) (692.6), Hypertension,benign(401.1), Degenerative Disc Disease (722.6), VENOUS (PERIPHERAL) INSUFFICIENCY, UNSPECIFIED (459.81), arthritis,unspecified (716.90), Stasis Dermatitis, Obesity (278.00), GLAUCOMA SUSPECT, NOS (365.00), Hemorrhoids (455.8), GERD (530.81), Hypercholesteremia (272.0), Rash (782.1), Irritable bowel syndrome (564.1), Sleep disorder (780.50), Abnormal mammogram (793.80), Well Woman Exam (V72.31) (Pap,Mammo,Routine Female), Abnormal blood chemistry (790.6), Chronic Stasis Dermatitis 454.1, Vitamin D deficiency, unspecified (268.9) [facility] Office Visit On: 09-Jun-2009 12:48 Encounter Reason: Follow up acute care visit - The patient feeling better since last seen and improving. Patient has been compliant with instructions. Current medication use: no side effects ,compliant with dosing regime End: 09-Jun-2009 13:09 n and considered effective by patient. Patient sleeps 4 hours per night. Nutrition: balanced diet. The medical issues the patient is following up for include All identified problems below and other (contact dermatitis). Encounter Diagnosis: Contact dermatitis and other eczema due to plants (except food) (692.6) [facility] Office Visit On: 25-May-2009 7:54 Encounter Reason: Rash - The onset of the rash has been sudden and has been occurring in a persistent pattern for 1 months. The course has been constant. The rash is characterized as red and raised above the skin. The ra End: 25-May-2009 8:18 sh was first seen on the upper extremity. There has been no progression. There has been associated itching. Encounter Diagnosis: Contact dermatitis and other eczema due to plants (except food) (692.6) [facility] Phone Encounter On: 14-May-2009 14:27 [facility] End: 14-May-2009 14:28 Office Visit On: 24-Apr-2009 10:25 Encounter Reason: Follow up, Laboratory Test Results - Date: (04/16/09). , [ADDITIONAL REASON] vaginal itching - The discharge has been occurring for 2 months and has been dec End: 24-Apr-2009 11:11 reasing. The discharge has been scant. The symptoms have been associated with vulvar pruritis. There is a history of wears daily pads (Pt said she bought an off brand and she thinks that is whaty starte d all of this.), while there is no history of sexual contact with a person having an STD ,use of tampons ,possible vaginal foreign body ,douching ,use of contraceptive devices ,sexual assault ,trauma ,v aginal exposure to chemical irritants ,sexual contact with a person exposed to an STD ,anal intercourse ,use of spermicides ,wearing tight fitting undergarments ,uses bubble baths or no new detergants. Encounter Diagnosis: Hypercholesteremia (272.0) , Diabetes, Type II, controlled (250.00), Hypertension,benign(401.1), GERD (530.81), Obesity (278.00), Rash (782.1) [facility] Nurse Visit On: 11-Mar-2009 16:55 Encounter Reason: Injections - The medication the patient is here to receive is other (Influenza vaccine). Encounter Diagnosis: Need for prophylactic vaccination and inoculation against influenza (V04.81) End: 11-Mar-2009 16:57 [facility] Office Visit On: 23-Dec-2008 9:53 Encounter Reason: Follow up for chronic medical issues - The patient feels well with minor complaints and has decreased energy level. Patient has been compliant with instructions. Current medication use: no side effects End: 23-Dec-2008 10:30 ,compliant with dosing regimen and considered effective by patient. Patient sleeps 6 hours per night. Impact of disease: emotional impact-mild. Nutrition: balanced diet and supplemental vitamins. The ok dical issues the patient is following up for include blood sugar issues ,cardiac issues ,gastric reflux ,high cholesterol ,hypothyroid and other (obesity, sleep disorder, arthiritis, DDD, glaucoma ). Encounter Diagnosis: Diabetes, Type II, controlled (250.00), Hypercholesteremia (272.0), Hypertension,benign(401.1), GERD (530.81), Degenerative Disc Disease (722.6), Obesity (278.00), Irritable bowel syndrome (564.1), Sleep disorder (780.50), Well Woman Exam (V72.31) (Pap,Mammo,Routine Female), Abnormal mammogram (793.80), Abnormal blood chemistry (790.6) [facility] Office Visit On: 11-Dec-2008 9:22 Encounter Reason: Follow up ER - Reason for hospitalization note: (cellullitus ). Patient has been compliant with instructions. Current medication use: no side effects ,compliant with dosing regimen and considered effect End: 11-Dec-2008 9:51 marsha by patient. The patient feels well with minor complaints. Patient sleeps 7 hours per night. Impact of disease: emotional impact-mild. Nutrition: balanced diet and supplemental vitamins. Note for Fo llow up ER: started on cephalaxin. still worsened and had go to ER. given IV now back to normalEncounter Diagnosis: Chronic Stasis Dermatitis 454.1, Cellulitis/ Abcess of leg (682.6) [facility] Historical Summary On: 20-Nov-2008 13:43 [facility] End: 20-Nov-2008 14:23 Phone Encounter On: 15-Jul-2008 15:47 [facility] End: 15-Jul-2008 15:48 Office Visit On: 15-Jul-2008 10:27 Encounter Reason: Follow up for chronic medical issues - The patient feels well with minor complaints ,has decreased energy level and is sleeping poorly. Patient has been compliant with instructions. Current medication u End: 15-Jul-2008 10:47 se: no side effects. Patient sleeps 5 hours per night. Impact of disease: emotional impact-mild. Nutrition: balanced diet and supplemental vitamins. The medical issues the patient is following up for in clude blood sugar issues ,cardiac issues ,gastric reflux ,high blood pressure ,high cholesterol and other (obesity, sleep disorder ). Encounter Diagnosis: Hypertension,benign(401.1), Diabetes, Type II, controlled (250.00), Stasis Dermatitis, Need for prophylactic vaccination and inoculation against influenza (V04.81), Obesity (278.00), Hypercholesteremia (272.0), arthritis,unspecified (716.90), Degenerative Disc Disease (722.6), GLAUCOMA SUSPECT, NOS (365.00), GERD (530.81), Dermatitis (692.9), Rash (782.1), Sleep disorder (780.50), Swelling of limb (729.81), Lower Leg Pain (719.46), Hemorrhoids (455.8), Irritable bowel syndrome (564.1), WWV, Abnormal mammogram (793.80) [facility] Nurse Visit On: 25-Mar-2008 13:32 Encounter Diagnosis: Need for prophylactic vaccination and inoculation against influenza (V04.81) End: 25-Mar-2008 13:32 [facility] Office Visit On: 04-Mar-2008 13:25 Encounter Reason: Follow up for chronic medical issues - The patient feels well with minor complaints. Patient has been compliant with instructions. Current medication use: no side effects. Patient sleeps 6 hours per nig End: 04-Mar-2008 14:21 ht. Nutrition: inappropriate diet. The medical issues the patient is following up for include All identified problems below ,blood sugar issues ,gastric reflux ,high blood pressure ,high cholesterol and other (DDD, Obesity). Encounter Diagnosis: Diabetes, Type II, controlled (250.00), Obesity (278.00), Stasis Dermatitis, Degenerative Disc Disease (722.6), Hypercholesteremia (272.0), arthritis,unspecified (716.90), GLAUCOMA SUSPECT, NOS (365.00), Hemorrhoids (455.8), GERD (530.81), Hypertension,benign(401.1), Dermatitis (692.9), Lower Leg Pain (719.46), Rash (782.1), Swelling of limb (729.81), Sleep disorder (780.50), [facility] Office Visit On: 09-Oct-2007 9:07 Encounter Reason: Follow up, Laboratory Test Results - Lab results: abnormal blood chemistry and abnormal CBC. Date: (09-19-07 ). Current symptoms/reason for visit include/s Follow up visit with no current symptoms. There End: 09-Oct-2007 9:43 is a family history of cardiovascular disease. Past medical history includes cardiovascular disease ,coronary artery disease ,diabetes mellitus ,elevated cholesterol ,elevated triglycerides and hypertension. Encounter Diagnosis: Diabetes, Type II, controlled (250.00), Hypercholesteremia (272.0) [facility] Office Visit On: 21-Aug-2007 14:19 Encounter Diagnosis: Dermatitis (692.9), Obesity (278.00), Diabetes, Type II, controlled (250.00) End: 21-Aug-2007 14:29 [facility] Office Visit On: 14-Aug-2007 14:02 Encounter Reason: Skin changes - The onset of the skin changes has been acute and they have been occurring in a persistent pattern for 5 days. The course has been increasing. The skin changes are described as moderate. N End: 14-Aug-2007 14:21 ote for Skin changes: cellulitus bilateral lower legs ?, tender in back of calf left. historu of blood clot in that leg in the 70's--superficial. note on left ankle/ palafox redder than usualEncounter Diagnosis: Lower Leg Pain (719.46) [facility] Historical Summary On: 27-Jul-2007 10:17 [facility] End: 27-Jul-2007 10:25 Office Visit On: 15-Feb-2007 13:35 [facility] End: 15-Feb-2007 14:20 Office Visit On: 15-Feb-2007 12:56 Encounter Reason: Follow up acute care visit - The patient feeling better since last seen and improving. Patient has been compliant with instructions. Current medication use: no side effects ,compliant with dosing regime End: 15-Feb-2007 13:30 n and considered effective by patient. Patient sleeps 7 hours per night. Impact of disease: emotional impact-mild. Nutrition: balanced diet and supplemental vitamins. The medical issues the patient is f ollowing up for include other (GERD ). Note for Follow up acute care visit: cut out caffiene breast better getting mammo, hives gone. still on nexium--help throat, [ADDITIONAL REASON] Follow up for chronic medical issues - The patient feels well with minor complaints. Patient has been compliant with instructions. Current medication use: no side effects. Patient s leeps 4 (frequent awakening) hours per night. Impact of disease: no overall impact. Nutrition: balanced diet. The medical issues the patient is following up for include All identified problems below. Encounter Diagnosis: Hypertension,benign(401.1), Diabetes, Type II, controlled (250.00), GERD (530.81), Rash (782.1), Degenerative Disc Disease (722.6), Obesity (278.00), Stasis Dermatitis, SYMPTOMS INVOLVING RESPIRATORY SYSTEM AND OTHER CHEST SYMPTOMS; HICCOUGH (786.8), Swelling of limb (729.81) , Hypercholesteremia (272.0), Vertigo (780.4), Dermatitis (692.9), Sleep disorder (780.50) [facility] Office Visit On: 08-Jan-2007 16:41 Encounter Reason: Rash - The onset of the rash has been acute and has been occurring in a persistent pattern for 1 days. The course has been increasing. The rash is characterized as red and raised above the skin. The mumtaz End: 08-Jan-2007 17:19 h was first seen on the back. It spread to the upper extremity. There has been associated itching. Note for Rash: [facility] and noticed back itchingEncounter Diagnosis: Rash (782.1) [facility] Office Visit On: 28-Dec-2006 9:57 Encounter Reason: Well Women Exam - The patient feels well with minor complaints ,has decreased energy level and is sleeping well. Pap smear: date of last pap: (2005). Contraceptive history: The patient is not using any End: 28-Dec-2006 12:38 method of contraception at this time. Patient does not exercise. The patient's libido is absent. The patient reports that she performs monthly self breast exam. Note for Well Women Exam: menopausal Encounter Diagnosis: Diabetes, Type II, controlled (250.00), Hypertension,benign(401.1), Well Woman Exam (V72.31) (Pap,Mammo,Routine Female), Degenerative Disc Disease (722.6), SYMPTOMS INVOLVING RESPIRATORY SYSTEM AND OTHER CHEST SYMPTOMS; HICCOUGH (786.8) [facility] Office Visit On: 10-Oct-2006 11:33 Encounter Reason: Follow up for chronic medical issues - The patient does not feel well. Patient has been compliant with instructions. Current medication use: no side effects. Patient sleeps 7 hours per night. Impact of End: 10-Oct-2006 11:58 disease: no overall impact. The medical issues the patient is following up for include All identified problems below. , [ADDITIONAL REASON] Follow up, Laboratory Test Results - Lab results: abnormal liver function tests. Date: (10-09). Current symptoms/reason for visit include/s Follow up visit with no current symptoms. There is a family history of cardiovascular disease. Past medical history includes anemia ,cardiovasc ular disease ,coronary artery disease ,diabetes mellitus ,elevated cholesterol ,elevated triglycerides ,hypertension and other (degenrative disc disease ). Note for Follow up, Laboratory Test Results: on half crestor doing okay Encounter Diagnosis: Need for prophylactic vaccination and inoculation against influenza (V04.81), Degenerative Disc Disease (722.6), Swelling of limb (729.81), Hypercholesteremia (272.0), Diabetes, Type II, controlled (250.00), Obesity (278.00), Dermatitis (692.9), Vertigo (780.4) [facility] Office Visit On: 29-Sep-2006 11:55 Encounter Diagnosis: Unspecified Diagnosis End: 29-Sep-2006 12:10 [facility] Nurse Visit On: 04-Apr-2006 10:05 Encounter Diagnosis: Need for prophylactic vaccination and inoculation against influenza (V04.81) End: 04-Apr-2006 10:05 [facility] Office Visit On: 28-Mar-2006 14:08 Encounter Reason: Follow up Hypertension - The patient has experienced follow up hypertension for years. The symptoms have been associated with kidney disease and obesity. , End: 28-Mar-2006 14:42 [ADDITIONAL REASON] Follow up for diabetes/glucose intolerance - The patient feels well with no complaints ,has decreased energy level and is sleeping poorly (wakes up often to use restroom). Patient h as been compliant with instructions. Nutrition: balanced diet and eats sweets daily. fasting blood sugars : (105). Note for Follow up for diabetes/glucose intolerance: SEE EYE DR BRAND Encounter Diagnosis: Diabetes, Type II, controlled (250.00), Obesity (278.00), Stasis Dermatitis, Degenerative Disc Disease (722.6), Swelling of limb (729.81), Hypercholesteremia (272.0) [facility] Historical Summary On: 23-Mar-2006 15:34 [facility] End: 23-Mar-2006 15:43 Office Visit On: 26-Feb-2006 20:01 [facility] End: 26-Feb-2006 20:01 Payers MedicareAARP/John Soares; michael guarantor
--- OUTSIDE RECORDS SUMMARY | 2018-06-12 22:37 | XMS RPT_ITS | Continuity of Care Document ---
:1940 Author Organization [facility] Address [facility] [address] [place] [address] Phone Care Team Providers Name Role Phone Lesly Chairez CNP Unavailable [facility] Unavailable Edin BAUTISTA, Balwinder Tam Unavailable Matt Phelps Unavailable Elana BAUTISTA, Akosua Lackey Unavailable Dr. Prashant Hoffman Unavailable Liyah Diane Unavailable Dr. Shayla Goodman Unavailable Dr. Jonathan Oates Unavailable Eufemia Lemos Unavailable Unavailable Slarb WINDING LATHE OPERATOR, Maria T Unavailable Unavailable Long WINDING LATHE OPERATOR, Dima L Unavailable Unavailable Unavailable Unavailable Problems [...] Irritable bowel syndrome (K58.9, 564.1) Status: Active care home current use of 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 therapy (Z79.01, V58.61) [...] 02-Jun-2014 Active Comments:True Test Strips DX: 250.00NPI: [id number] Horse [place] 300 MG Oral Capsule 1 qd (300 MG) Active Comments:per derm HydrOXYzine HCl 25 MG Oral Tablet 1 (one) Tablet bid prn for 10 days Quantity: 30 {Tablet} Refills: 1 Ordered:01-May-2017 Mihaela RODRIGUEZ Lesly CENTENOjaja RODRIGUEZ Lesly Chatman Start : 01-May-2017 Active MECLIZINE HCL, 25MG (Oral Tablet) 1 Tablet tid/prn for 0 days Quantity: 30 {Tablet} Refills: 0 Ordered:29-Sep-2015 Mihaela RODRIGUEZ Lesly Álvarezmichael RODRIGUEZ Lesly Chatman Start : 29-Sep-2015 Active Pentoxifylline ER 400 MG Oral Tablet Extended Release 1 (one) Tablet ER tid for 0 days Quantity: 90 {Tablet} Refills: 6 Ordered:27-Mar-2017 Mihaela RODRIGUEZ Lsely Álvarezmichael RODRIGUEZ Lesly Chatman Start : 27-Mar-2017 [...] days Quantity: 14 {Tablet(s)} Refills: 0 Ordered:29-Apr-2013 MATT Maloney Start : 25-Jan-2013 End : 29-Apr-2013 Inactive Comments:OTC CLOBETASOL PROPIONATE, 0.05% (External Cream) uad Cream to affected area(s) prn for 0 days Quantity: 1 {Tube} Refills: 1 Ordered:17-Sep-2015 MATT Maloney Start : 28-Apr-2014 End : 17-Sep-2015 Inactive Clotrimazole 10 MG Mouth/Throat Roney 1 (one) Roney 5x daily for 10 days Quantity: 50 {Roney} Refills: 0 Ordered:31-Jul-2017 Nellypopmichael PHY THERAPIST, Lesly Leslie PHY THERAPIST, Fátima Start : 31-Jul-2017 End : 10-Aug-2017 [...] Quantity: 30 {Tablet} Refills: 6 Ordered:06-Nov-2017 Nellypopmichael PHY THERAPIST, Lesly Leslie PHY THERAPIST, Fátima Start : 31-Jul-2017 End : 06-Nov-2017 [...] : 12-Nov-2010 End : 20-Feb-2012 Inactive Nystatin 380030 UNIT/GM External Powder uad Powder bid to [...] 21 {Tablet} Refills: 0 Ordered:13-Mar-2017 Ryanmichael RODRIGUEZ, Lelsy CENTENOjaja RODRIGUEZ, Fátima Start : 13-Mar-2017 End [...] : 19-Mar-2012 End : 21-May-2012 Inactive ZOSTAVAX, 96434RGS/0.65ML (Subcutaneous Solution Reconstituted) 1 For Solution once SC for 0 days Quantity: 1 {For_Solution} Refills: 0 Ordered:29-Apr-2013 MATT Maloney Start : 08-Apr-2013 End : 29-Apr-2013 Inactive Cefadroxil 500 MG Oral Capsule 1 (one) Capsule bid for 7 days Quantity: 14 {Capsule} Refills: 0 Ordered:12-Jan-2017 Wendy June DO Start : 12-Jan-2017 End : 12-Jan-2017 Discontinued ERGOCALCIFEROL, 38764CPRB (Oral Capsule) 1 Capsule every 2 months [...] ventilator, and rec. multpile units PRBC's @ [facility] 09-18 Status: Inactive as of 13-Mar-2017 [...] Density Study Result: Comments: See Note; NOTES: [facility] Imaging Services [address] [place] [address] Dexa Bone Density Study MR#: [id number] Acct: [id number] Name: BRISSA SOARES Rep #: [id number] : 1940 F 77 From: Sergio Perea MD PCP: Lesly Chairez NP Status: REG CLI Study: Dexa Bone Density Study Date of Exam: 03/22/18 Exam# [id number] Ordering Dr: Lesly Chairez STUDY: D UAL [...] Sergio Perea MD at 15:16 EDT Tel [phone], Service support , CC: Lesly Chairez NP Solvent Station Attendant: Signed 22-Mar-2018 SCREENING MAMM (CAD), BILAT Result: Comments: See Note; NOTES: [facility] Imaging Services [address] [place] [address] SCREENING MAMM (CAD), BILAT MR#: [id number] Acct: [id number] Name: BRISSA SOARES Rep #: [id number] : 1940 F 77 From: Sergio Perea MD PCP: Lesly Chairez NP Status: REG CLI Study: SCREENING MAMM (CAD), BILAT Date of Exam: 03/22/18 Exam# [id number] Ordering Dr: Lesly Chairez BAGEL MAKER-C MAMMOGRAPHY - BILATERAL SCREENING REASON FOR EXAM: [...] delay biopsy of a clinically suspicious abnormality. [id number] Electronically Signed: Sergio Perea MD at 10:28 EDT Tel [phone], Service support , CC: Lesly Chairez NP Solvent Station Attendant: Signed 12-Feb-2018 HIP, UNI W/ Pelvis 2-3 Views Result: Comments: See Note; NOTES: [facility] Imaging Services [address] [place] [address] HIP, UNI W/ Pelvis 2-3 Views MR#: [id number] Acct: [id number] Name: BRISSA SOARES Rep # : [id number] : 1940 F 77 From: Justo Kennedy MD PCP: Lesly Chairez NP Status: REG CLI Study: HIP, UNI W/ Pelvis 2-3 Views Date of Exam: 02/12/18 Exam# [id number] Ordering Dr: Lesly Chairez Y: X-RAY - [...] Service support , CC: Lesly Chairez NP Solvent Station Attendant: Signed 16-Nov-2017 Abdomen Complete Result: Comments: See Note; NOTES: [facility] Imaging Services [address] [place] [address] Abdomen Complete MR#: [id number] Acct: [id number] Name: BRISSA SOARES Rep #: [id number] : 1940 F 77 From: Yulissa Reilly MD PCP: Lesly Chairez NP Status: REG CLI Study: Abdomen Complete Date of Exam: 11/16/17 Exam# [id number] Ordering Dr: Lesly Chairez STUDY: ABDOMINAL ULTRASOUND [...] Service support , CC: Lesly Chairez NP Solvent Station Attendant: Signed 22-Sep-2017 Cardiology Visit Report Result: Comments: See Note; NOTES: [facility] [address] [place], [place] [address]compa. 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 Required: No Accompanied by: none Is patient in pain?: No Allerg ies atorvastatin calcium [From Lipitor] Allergy (Verified 09/21/17 11:28) Unknown ezetimibe [From Zetia] Allergy (Verified 09/21/17 11:28) Unknown lisinopril Allergy (Verified 09/21/17 11:28) Unknown n eomycin [Neomycin] Allergy (Verified 09/21/17 11:28) Unknown neomycin sulfate [From Neosporin (vie-vfu-enjqu)] Allergy (Verified 09/21/17 11:28) Itching polymyxin B [...] History Palpitations (Chronic) 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 transplanted heart: [place] heart Essential hypertension I10 Hypertension type: essential hypertension Pure hypercholesterolemia E78.00; E78.0 Hyperlipidemia type: pure hypercholesterolemia 09/22/17 0925 <Electronically signed by Serenity MAGAÑA> Date Serenity MGAAÑA Cosigner Signature: Date (if applicable) CC: Lesly Chairez NP 20-Mar-2017 Wound Ctr History AND Physical Result: Comments: See Note; NOTES: [facility] [address] [place] [address] Wound Ctr History AND Physical 03/20/17 1426 MR#: [id number] Acct: [id number] Name: BRISSA WHITE Rep #: [id number] : 1940 76 From: Bao Brothers MD PCP: Lesly Chairez Status: REG RCR Y Location: WC (1) 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 She has been treated at the [facility] wound healing center in recent weeks [...] 11/15/15 15:31) Unknown neomycin sulfate [From Neosporin (hbw-mcw-ftuew)] Allergy (Verified 11/15/15 15:31) Itching polymyxin B [...] Date Recorded By Document 03/20/17 14:23 DV [id number] 03/05 11/19 14:25 DV Pain Scale: 0-10 [...] Date Recorded By Document 03/20/17 14:23 DV [id number] 03/20/17 14:25 DV Pain Scale: 0-10 Numeric [...] (CAD), BILAT Result: Comments: See Note; NOTES: [facility] Imaging Services [address] [place] [address] SCREENING MAMM (CAD), BILAT MR#: [id number] Acct: [id number] Name: BRISSA SOARES Rep #: [id number] : 1940 F 76 From: Jessica Gonzalez MD PCP: Lesly Chairez Status: REG CLI Study: SCREENING MAMM (CAD), BILAT Date of Exam: 03/09/17 Exam# [id number] Ordering Dr: Lesly Chairez MAMMOGRAPHY - BILATERAL [...] delay biopsy of a clinically suspicious abnormality. 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 Curr ent Visit: No Code(s): I70.249 - ATHSCL HABEMATOLEL ARTERIES OF LEFT LEG W ULCERATION OF UNSP SITE (2) Cellulitis of left leg Status: Resolved Current Visit: No Code(s): L03.116 - CELLULITIS OF LEFT LOWER L IMB (3) Failure to thrive Status: Acute Current Visit: No Code(s): BER1922 - (4) Generalized weakness Status: Acute Current [...] She has been garrett juan at the [facility] wound healing center in recent weeks [...] 11/15/15 15:31) Unknown neomycin sulfate [From Neosporin (vzr-ruv-bamls)] Allergy (Verified 11/15/15 15:31) Itching polymyxin B [...] Recorded Date Recorded By Document 03/06/17 13:13 [id number] 03/06/17 13:22 Wound Center Nurse 1 [Edema [...] Date Recorded By Document 03/06/17 14:12 DV [id number] 03/06/17 14:13 DV Pain Scale: 0-10 Numeric [...] Recorded Date Recorded By Document 14:12 DV [id number] 03/06/17 14:13 DV Pain Scale: 0-10 Numeric [...] AND Physical Result: Comments: See Note; NOTES: [facility] [address] [place] [address] Wound Ctr History AND Physical 02/27/17 1412 MR#: [id number] Acct: [id number] Name: BRISSA WHITE Rep #: [id number] : 1940 76 From: Bao Brothers MD [...] extremities. She has been treated at the [facility] wound healing center in recent weeks [...] 11/15/15 15:31) Unknown neomycin sulfate [From Neosporin (vvm-pgc-jlniw)] Allergy (Verified 11/15/15 15:31) Itching polymyxin B [...] Date Recorded By Document 02/27/17 13:25 [facility] [id number] 02/27/17 13:34 [facility] Wound Center Nurse 1 [Edema Assessment] -Lower Limb Edema Present Yes -Right Calf (cm) 39.7 -Right Ankle (cm) 26 -Left Calf (cm) 41 -Left Ankle (cm) 26.5 - Nurse 2 - General Ulcer CM Notes Start: 02/03/17 13:02 Freq: Status: Active Activity Type Activity Date Activit y User E-Sign Co-Sign Detail Recorded Client Recorded Date Recorded By Document 02/27/17 13:50 DV [id number] 02/27/17 13:50 DV Pain Scale: 0-10 Numeric [...] Recor ded By Document 02/27/17 13:50 DV [id number] 02/27/17 13:50 DV Pain Scale: 0-10 Numeric [...] AND Physical Result: Comments: See Note; NOTES: [facility] [address] [place] [address] Wound Ctr History AND Physical 02/20/17 1309 MR#: [id number] Acct: [id number] Name: BRISSA WHITE Rep #: [id number] : 1940 76 From: Bao Brothers MD [...] extremities. She has been treated at the [facility] wound healing center in recent weeks for an ulceration in the left medial supramalleolar area. With a combination of conservative treatment measures, including use of Milena and Tubigrip's, the [facility] er healed. The ulceration is now completely [...] (Chronic) Chronic venous stasis dermatitis (Chronic) Diabetes (Freight Adjuster scarlett) Hyperpigmentation of skin (Chronic) Leg swelling [...] 11/15/15 15:31) Unknown neomycin sulfate [From Neosporin (dab-tpv-txaif)] Allergy (Verified 11/15/15 15:31) Itching polymyxin B [...] Date Recorded By Document 02/20/17 12:18 [facility] [id number] 02/20/17 12:21 [facility] WC - Nurse 2 - General Ulcer CM Notes Start: 02/03/17 13:02 Freq: Status: Active Activity Type Activity Date Activity User E-Sign Co-Sign Detail Recorded Client Recorded Date Recorded By Document 02/20/17 12:53 DV [id number] 02/20/17 13:04 DV Pain Scale: 0-10 Numeric [...] Date Recorded By Document 02/20/17 12:53 DV [id number] 02/20/17 13:04 DV Pain Scale: 0-10 Amelie [...] [facility]. 02/20/17 1330 <Electronically signed by Bao Brothers MD> Date Bao Brothers MD CC: Signed 17-Feb-2017 Lower Ext Arterial Study Result: Comments: See Note; NOTES: [facility] Cardiovascular Services [address] [place] [address] 02/17/17 1612 MR#: [id number] Acct: [id number] Name: BRISSA SOARES Rep #: [id number] : 1940 76 From: Bao Brothers MD Attending Dr: Andre Gutierrez MD Status: DIS RCR Ordering Dr: Date: 02/17/17 Location: [facility] Sex: F C Admitted: Arterial Study - [...] Chairez Date Dictated: 02/17/171611 Date Transcribed: 02/17/171611 Solvent Station Attendant: PASCALE Signed 14-Feb-2017 Venous Duplex Lower Extremity Result: Comments: See Note; NOTES: [facility] Cardiovascular Services [address] [place] [address] Venous Duplex US - Jasson Extrem 02/14/17 1252 MR#: [id number] Acct: [id number] Name: BRISSA SOARES Rep #: [id number] : 1940 76 From: Bao Brothers MD [...] was called and/or faxed posterior calf. to [facility]. Interpret ation Summary Deep veins of the [...] Dictated: 02/14/17 1252 Date Transcribed: 02/14/17 1529 Solvent Station Attendant: Signed 07-Feb-2017 Wound Ctr History AND Physical Result: Comments: See Note; NOTES: [facility] [address] [address] Wound Ctr History AND Physical 02/07/17 1617 MR#: [id number] Acct: [id number] Name: BRISSA WHITE Rep #: [id number] : 1940 76 From: Paul Srinivasan DPM [...] 11/15/15 15:31) Unknown neomycin sulfate [From Neosporin (elr-oec-xnsyv)] Allergy (Verified 11/15/15 15:31) Itching polymyxin B [...] 15:30 02/07/17 15:30 General: Alert, Oriented x3, Gis Analyst Developer perative, No apparent distress HEENT: Atraumatic, Normocephalic [...] Date Recorde d By Document 02/07/17 15:30 [id number] 02/07/17 15:32 Wound Center Nurse 1 - Nurse 2 - General Ulcer CM Notes Start: 02/03/17 13:02 Freq: Status: Active Activity Type Activity Date Activity User E-Sign Co-Sign Detail Recorded Client Recorded Date Recorded By Document 02/07/17 16:11 IZZY [id number] 02/07/17 16:12 Wound Center Nurse 2 [Procedure/Treatment] [...] Date Recorded By Document 02/07/17 16:11 IZZY [id number] 02/07/17 16:12 [facility] Nurse 2 [...] pressure ulcer, venous incompetence, arterial insufficiency Plan: BAGEL MAKER exam. SQ/excision al debridement as above. Cont [...] pain, chest pain, SOB and go to [facility] ED with these. 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 She developed a wound on the [...] 11/15/15 15:31) Unknown neomycin sulfate [From Neosporin (cqy-fvp-nzwqp)] Allergy (Verified 15:31) Itching polymyxin B [Polymyxin [...] Department Summary Result: Comments: See Note; NOTES: [facility] Medical Records Department [address] [address] Emergency Department Summary 01/15/17 1100 MR#: [id number] Acct: [id number] Name: BARTBRISSA M Rep #: [id number] : 1940 76 From: Jackson Marshall MD [...] your Primary Care Provider. Call [facility] ([phone]) or report to [facility] Emergency Room. Call 911 if necessary. 01/16/17 0747 <Electronically signed by Jackson Marshall MD> Date Jackson Marshall MD Cosign er Signature (If Indicated): Date CC: Lesly Chairez 09-Dec-2016 Spine Lumbar (Routine) Result: Comments: See Note; NOTES: [facility] Imaging Services [address] [place] [address] Verdana 4d Spine Lumbar (Routine) MR#: [id number] Acct: [id number] Name: BARTBRISSA Rep #: [id number] : 1940 F 76 From: Isidro Cole MD PCP: Lesly Chairez Status: REG CLI Study: Spine Lumbar (Routine) Date of Exam: 12/09/16 Exam# [id number] Ordering Dr: Lesly Chairez UDY: MRI LUMBAR [...] 7:17 EDT Tel , Service support [phone]- [phone], CC: Lesly Chairez Solvent Station Attendant: Signed 23-Sep-2016 L/S Spine Min 4 Views Result: Comments: See Note; NOTES: [facility] Imaging Services [address] [place] [address] Verdana 4d L/S Spine Min 4 Views MR#: [id number] Acct: [id number] Name: BRISSA SAORES ep #: [id number] : 1940 F 76 From: Alisia Kinsey PCP: Lesly Chairez Status: REG CLI Study: L/S Spine Min 4 Views Date of Exam: 09/23/16 Exam# [id number] Ordering Dr: Lesly Chairez STUDY: X-RAY - [...] , Service support , CC: Lesly Chairez Solvent Station Attendant: Signed 08-Apr-2016 Humerus min 2 Views Result: Comments: See Note; NOTES: [facility] Imaging Services [address] [place] [address] Verdana 4d Humerus min 2 Views MR#: [id number] Acct: [id number] Name: BRISSA SOARES p #: [id number] : 1940 F 75 From: Sergio Perea MD PCP: Lesly Chairez Status: REG CLI Study: Humerus min 2 Views Date of Exam: 04/08/16 Exam# [id number] Ordering Dr: Lesly Chairez STUDY: X-R AY [...] Sergio Perea MD at 15:05 EDT Tel [phone], Service support [phone], CC: Lesly Chairez Solvent Station Attendant: Signed 29-Feb-2016 Bilat Scrn Digital AND CAD Result: Comments: See Note; NOTES: [facility] [address] [facility] [address] Verdana 4d Bilat Scrn Digital AND CAD MR#: [id number] Acct: [id number] Name: FER SOARES Rep #: [id number] : 1940 F 75 From: Sergio Perea MD PCP: Lesly Chairez Status: REG CLI Study: Bilat Scrn Digital AND CAD Date of Exam: 02/29/16 Exam# [id number] Ordering Dr: Lesly Chairez MAMMOGRAPHY - BILATERAL [...] has been [facility] significant [facility] HPBI/Bilat Scrn Digital AND CAD IMPRESSION: Stable bilateral screening mammogram. Yearly follow-up mammogram recommended. (A) ASSESSMENT CATEGORY: BIRADS Category 1: Negative. A letter regarding these results will be sent to the patient by the facility within 30 days. Approximately 10% of breast c ancers are not detected by mammography. A normal mammogram should not delay biopsy of a clinically suspicious abnormality. [id number] Electronically Signed: Sergio Perea MD at 11:19 EDT Tel [phone], Service support [phone], CC: Lesly Chairez Solvent Station Attendant: Signed 25-Dec-2015 Gastric Emptying Study Result: Comments: See Note; NOTES: [facility] Imaging Services [address] [place] [address] Verdana 4d Gastric Emptying Study MR#: [id number] Acct: [id number] Name: BRISSA WHITE Rep #: [id number] : 1940 F 75 From: Jhon Carreno DO PCP: Akosua Enrique MD Status: REG CLI Study: Gastric Emptying Study Date of Exam: 12/25/15 Exam# [id number] Ordering Dr: Jonathan Blanco MD CLINICAL: 75-year-old [...] at 7:59 EDT Tel , Service support [phone], CC: Akosua Enrique MD; Jonathan Oates Solvent Station Attendant: Signed 15-Nov-2015 Emergency Department Summary Result: Comments: See Note; NOTES: [facility] Medical Records Department [address] [address] Emergency Department Summary MR#: [id number] Acct: [id number] Name: BRISSA SOARES Rep #: [id number] : 1940 75 From: Eladio Mai MD [...] Parul Saunders C: Akosua Oates MD T: [facility] JOB: [id number] 11/15/152037 <Electronically signed by Eladio Mai MD> Date Eladio Mai MD Cosigner Signature (If Indicated): Date CC: Akosua Enrique MD; Jonathan Oates Date Dictated: 11/15/151620 Date Transcribed: 11/15/151620 Solvent Station Attendant: Signed 15-Nov-2015 Discharge Instruction Result: Comments: See Note; NOTES: [facility] Medical Records Department [address] [place] [address] Discharge Instruction 11/15/158 MR#: [id number] Acct: [id number] Name: BRISSA SOARES Rep #: [id number] : 1940 75 From: Eladio Mai MD [...] problems, contact your doctor. Call [facility] ([phone]) or report to the closest Emergency Room. Call 911 if necessary. 11/15/151620 <Electronically signed by Eladio Mai MD> Date Eladio granados Signature (If Indicated): Date CC: Akosua Enrique MD 26-Sep-2015 Brain/Head without Contrast Result: Comments: See Note; NOTES: [facility] Imaging Services [address] [address] Verdana 4d Brain/Head without Contrast MR#: [id number] Acct: [id number] Name: BRISSA SOARES Rep #: [id number] : 1940 F 75 From: Garry Knowles DO PCP: Akosua Enrique MD Status: REG ER Study: Brain/Head without Contrast Date of Exam: 09/26/15 Exam# [id number] [facility]: Jacques Hunt MD STUDY: CT [...] at 21:04 EDT Tel , Service support [phone], F ax [phone] CC: Akosua Enrique MD; Jacques Hunt MD Solvent Station Attendant: Signed 03-Aug-2015 Shoulder min 2 Views Result: Comments: See Note; NOTES: [facility] Imaging Services [address] [place] [address] Verdana 4d Shoulder min 2 Views MR#: [id number] Acct: [id number] Name: BRISSA FERNANDO Rep #: [id number] : 1940 F 75 From: Sergio Perea MD PCP: Akosua Enrique MD Status: REG CLI Study: Shoulder min 2 Views Date of Exam: 08/03/15 Exam# [id number] Ordering Dr: Lesly Huang sa STUDY: X-RAY [...] Sergio Perea MD at 11:31 EST Tel [phone], Service support [phone], RAD/Shoulder min 2 Views IMPRESSION: 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 Electronically Signed: Sergio Perea MD at 11:31 EST Tel [phone], Service support [phone], CC: Lesly Chairez; Akosua Enrique MD Solvent Station Attendant: Signed 16-Feb-2015 Bilat Scrn Digital AND CAD Result: Comments: See Note; NOTES: [facility] Imaging Services [address] [place] [address] Breast Imaging Report MR#: [id number] Acct: [id number] Name: BRISSA SOARES Rep # : [id number] : 1940 F 74 From: Sergio Perea MD PCP: Akosua Enrique MD Status: REG CLI Study: Bilat Scrn Digital AND CAD Date of Exam: 02/16/15 Exam# [id number] Ordering Dr: Akosua Enrique MD MAMMOGRAPHY - [...] Sergio Perea MD at 10:27 EDT Tel [phone], Service support [phone], CC: Akosua Enrique MD Solvent Station Attendant: Signed 06-Feb-2014 Luci Gresham Digital & CAD Result: Comments: See Note; NOTES: [facility] Imaging Services [address] [place] [address] Breast Imaging Report MR#: [id number] Acct: [id number] Name: BRISSA SOARES Rep #: [id number] : 1940 F 73 From: Sergio Perea MD PCP: Akosua Enrique MD Status: REG CLI Exam# [id number] Ordering Dr: Akosua Enrique MD MAMMOGRAPHY - [...] MD at 11:35 EDT , Service support [phone], CC: Akosua Enrique MD Solvent Station Attendant: Signed 25-Apr-2013 Dexa Bone Density Study (HP) Result: Comments: See Note; NOTES: [facility] Imaging Services [address] [place] [address] Bone Density Report MR#: [id number] Acct: [id number] Name: BRISSA SOARES Rep #: [id number] : 1940 F 72 From: Sergio Perea MD PCP: Akosua Enrique MD Status: REG CLI Study: Dexa Bone Density Study () Date of Exam: 04/25/13 Exam# [id number] Ordering Dr: Akosua Enrique MD STUDY: DUAL [...] April 25, 2013 at 3:13:26 PM EST [phone] Electronically Signed GP/GP If you are the referring physician and would like to consult with the radiologist who provided this interpretati on, please contact Sergio Perea M.D. at [phone]. If this radiologist is unavailable, you will be directed to another radiologist to assist. If you are a patient with a question regarding this report, please contact your referring physician directly. Professional Interpretation Provided By: [employer], Phone , These documents contain legally protecte [...] of these documents. CC: Akosua Enrique MD Solvent Station Attendant: Signed Immunization Name Dates Details Influenza (3 [...] kg/m2 Body Surface Area Calculated 1.71 m2 17-Iiv-690270:23 Temperature 97.7 f Pulse 74 /min Comments: [...] kg/m2 Body Surface Area Calculated 1.92 m2 51-Mjg-052657:23 Temperature 97.8 f Comments: Method: Oral Pulse [...] 0.00 cm Results Date Description Value Details 64-Uwy-625876:39 MICROALBUMIN: CREATININE RATIO Comments: PATIENT WAS FASTINGPERFORMED BY: [facility] [id number] ([id number]) AND (39083) Alb/Creat Ratio 6.6 {mg/g_creat} (Normal) Range: 0.0-30.0 Albumin, Urine 3.5 ug/mL (Normal) Creatinine, Urine 53.0 mg/dL (Normal) 80-Zcc-465084:39 TSH (22186) Comments: PATIENT WAS FASTINGPERFORMED BY: [facility]CoB[facility] for RehabilitationDmkqjk4492 [facility] [id number] TSH 1.080 {uIU/mL} (Normal) Range: 0.450-4.500 97-Mhq-348308:39 CBC, Platelets & Auto Diff Comments: PATIENT WAS FASTINGPERFORMED BY: [facility]6370 [facility] [id number] ([id number]) Immature Grans (Abs) 0.0 {x10E3/uL} (Normal) Range: [...] 3.77-5.28 WBC 6.2 {x10E3/uL} (Normal) Range: 3.4-10.8 68-Zpy-223573:39 Metabolic Panel, Comprehensive Comments: PATIENT WAS FASTINGPERFORMED BY: LILIANA [employer] Micropower70 [facility] [id number] ([id number]) ALT (SGPT) 12 [iU]/L (Normal) Range: 0-32 [...] 8-27 Glucose 88 mg/dL (Normal) Range: 65-99 79-Ycm-947831:39 LIPID PANEL (19819) Comments: PATIENT WAS FASTINGPERFORMED BY: LILIANA [employer] [place] RoadDublin [place] [id number] LDL/HDL Ratio 1.1 {ratio} (Normal) Range: 0.0-3.2 Comments: LDL/HDL Ratio Men Women 1/2 Avg.Risk 1.0 1.5 Av g.Risk 3.6 3.2 2X Avg.Risk 6.2 5.0 3X Avg.Risk 8.0 6.1 LDL Cholesterol Calc 82 mg/dL (Normal) Range: 0-99 VLDL Cholesterol Jessica 12 mg/dL (Normal) Range: 5-40 HDL Cholesterol 77 mg/dL (Normal) Triglycerides 62 mg/dL (Normal) Range: 0-149 Cholesterol, Total 171 mg/dL (Normal) Range: 100-199 7-Gxu-213360:16 Basic Metabolic Panel (8) Comments: PATIENT NOT FASTINGPERFORMED BY: [facility] [id number] Calcium 9.8 mg/dL (Normal) Range: 8.7-10.3 Carbon [...] 8-27 Glucose 76 mg/dL (Normal) Range: 65-99 1-Kil-687191:16 CBC With Differential/Platelet Comments: PATIENT NOT FASTINGPERFORMED BY: [employer] Micropower70 [facility] [id number] Immature Grans (Abs) 0.0 {x10E3/uL} (Normal) Range: [...] 3.77-5.28 WBC 6.5 {x10E3/uL} (Normal) Range: 3.4-10.8 7-Vyp-901702:18 FECAL OCCULT- Tubes sent home (84995) FECAL OCCULT HGB ASSAY, QUAL, 1-3 SIMULTANEOU negative (Normal) 6-Oxc-148499:56 HgA1C , Office (78639) HgA1C , Office 5.2 % (Normal) Range: 4.6 - 7.1 :56 Blood Glucose , Office (92860) Blood Glucose , Office 81 (Normal) 34-Quk-213681:28 VITAMIN B12 AND FOLATES Comments: PATIENT WAS FASTINGPERFORMED BY: [place] [id number] [facility] [id number] (75629) Folate (Folic Acid), Serum >20.0 ng/mL (Normal) Comments: A serum folate concentration of less than 3.1 ng/mL isconsidered to represent clinical deficiency. Vitamin B12 171 pg/mL (Abnormal) Range: 232-1245 16-Xfo-734950:28 CALCIFEDIOL (90130) Comments: PATIENT WAS FASTINGPERFORMED BY: [employer] Qygkbk8005 [facility] [id number] Vitamin D, 25-Hydroxy 22.4 ng/mL (Abnormal) Range: 30.0-100.0 Comments: Vitamin D deficiency has been defined by the [place] ofMedicine and an Endocrine Society practice guideline as alevel of serum 25-OH vitamin D less than 20 ng/mL (1,2).The Endocrine Society went on to further define vitamin Dinsufficiency as a level between 21 and 29 ng/mL (2).1. IOM ([place] of Medicine). 2010. Dietary reference intakes for calcium and D. [place]: The National Academies Press.2. Tono MF, Jonatan NC, Fabiola HUANG, et al. Evaluation, treatment, and prevention of vitamin D deficiency: an Endocrine Society clinical practice guideline. JCEM. 2010; 96(7):1911-30. 29-Qjn-723175:28 MICROALBUMIN: CREATININE RATIO Comments: PATIENT WAS FASTINGPERFORMED BY: [employer] Yogbzq5283 [facility] [id number] (03055) AND (76101) Alb/Creat Ratio <4.0 {mg/g_creat} (Normal) Range: 0.0-30.0 Albumin, Urine <3.0 ug/mL (Normal) Creatinine, Urine 74.9 mg/dL (Normal) 59-Xvo-293569:28 TSH (66989) Comments: PATIENT WAS FASTINGPERFORMED BY: [facility]CoB[facility] Institute for RehabilitationWgzdzy5086 [facility] [id number] TSH 1.070 {uIU/mL} (Normal) Range: 0.450-4.500 71-Ggj-485210:28 CBC, Platelets & Auto Diff Comments: PATIENT WAS FASTINGPERFORMED BY: [facility]6370 [facility] [id number] (02158) Immature Grans (Abs) 0.0 {x10E3/uL} (Normal) Range: [...] 3.77-5.28 WBC 5.6 {x10E3/uL} (Normal) Range: 3.4-10.8 28-Hij-183105:28 Metabolic Panel, Comprehensive Comments: PATIENT WAS FASTINGPERFORMED BY: [facility]6370 [facility] [id number] (37329) ALT (SGPT) 16 [iU]/L (Normal) Range: 0-32 [...] Glucose, Serum 82 mg/dL (Normal) Range: 65-99 44-Pmb-295221:28 Lipid Panel (92518) Comments: PATIENT WAS FASTINGPERFORMED BY: [facility]CoB[facility] Institute for RehabilitationCpdezu9977 [facility] [id number] LDL/HDL Ratio 1.3 {ratio_units} (Normal) Range: 0.0-3.2 Comments: LDL/HDL Ratio Men Women 1/2 Avg.Risk 1.0 1.5 Av g.Risk 3.6 3.2 2X Avg.Risk 6.2 5.0 3X Avg.Risk 8.0 6.1 LDL Cholesterol Calc 101 mg/dL (Abnormal) Range: 0-99 VLDL Cholesterol Jessica 11 mg/dL (Normal) Range: 5-40 HDL Cholesterol 79 mg/dL (Normal) Triglycerides 53 mg/dL (Normal) Range: 0-149 Cholesterol, Total 191 mg/dL (Normal) Range: 100-199 33-Dfv-341211:55 Urinalysis, Office (50182) UA - LEUKOCYTE ESTERASE Small (Normal) UA [...] Negative (Normal) :42 Blood Glucose , Office (42969) Comments: 91 Blood Glucose , Office 91 (Normal) :42 HgA1C , Office (29135) HgA1C , Office 5.1 % (Normal) Range: 4.6 - 7.1 :31 HgA1C , Office (47505) HgA1C , Office 5.2 % (Normal) Range: 4.6 - 7.1 :31 Blood Glucose , Office (52022) Blood Glucose , Office 78 (Normal) :13 Anaerobic & Aerobic Comments: PATIENT NOT FASTINGPERFORMED BY: [facility]CoB[facility] Institute for RehabilitationBkongs7238 [facility] [id number] Information: LEFT LEG SRC:FL Culture (73400) Antimicrobial MIHEAD (Normal) Comments: S = Susceptible; [...] Final report (Normal) :51 HgA1C , Office (60373) HgA1C , Office 5.2 % (Normal) Range: 4.6 - 7.1 :51 Blood Glucose , Office (88994) Blood Glucose , Office 83 (Normal) 29-Gfe-867198:21 LIPID PANEL (73890) Comments: PATIENT WAS FASTINGPERFORMED BY: [employer] Pmgpiy1166 [facility] [id number] LDL/HDL Ratio 1.5 {ratio_units} (Normal) Range: 0.0-3.2 Comments: LDL/HDL Ratio Men Women 1/2 Avg.Risk 1.0 1.5 Av g.Risk 3.6 3.2 2X Avg.Risk 6.2 5.0 3X Avg.Risk 8.0 6.1 LDL Cholesterol Calc 88 mg/dL (Normal) Range: 0-99 VLDL Cholesterol Jessica 21 mg/dL (Normal) Range: 5-40 HDL Cholesterol 59 mg/dL (Normal) Triglycerides 106 mg/dL (Normal) Range: 0-149 Cholesterol, Total 168 mg/dL (Normal) Range: 100-199 17-Jzy-998790:21 CBC, Platelets & Auto Diff Comments: PATIENT WAS FASTINGPERFORMED BY: [employer]6370 [facility] [id number] (34904) Immature Grans (Abs) 0.0 {x10E3/uL} (Normal) Range: [...] 3.77-5.28 WBC 6.0 {x10E3/uL} (Normal) Range: 3.4-10.8 28-Lvm-725845:21 Metabolic Panel, Comprehensive Comments: PATIENT WAS FASTINGPERFORMED BY: [facility]CoB[facility] Institute for RehabilitationUtdqvi5029 [facility] [id number]; OV 11/28 (87207) ALT (SGPT) 8 [iU]/L (Normal) Range: 0-32 [...] 73 mg/dL (Normal) Range: 65-99 :21 TSH (53817) Comments: PATIENT WAS FASTINGPERFORMED BY: [employer] Bvhhxn6661 [facility] [id number] TSH 0.748 {uIU/mL} (Normal) Range: 0.450-4.500 :33 HgA1C , Office (68452) HgA1C , Office 5.4 % (Normal) Range: 4.6 - 7.1 :33 Blood Glucose , Office (28183) Blood Glucose , Office 76 (Normal) 5-Tzj-156042:20 Microscopic Examination Comments: PATIENT WAS FASTINGPERFORMED BY: [employer] Kbsnkj6175 [facility] [id number] Bacteria Few (Normal) Mucus Threads Present (Normal) Epithelial Cells (non renal) 0-10 {/hpf} (Normal) Range: 0 - 10 RBC 0-2 {/hpf} (Normal) Range: 0 - 2 WBC 11-30 {/hpf} (Abnormal) Range: 0 - 5 2-Jmu-579469:20 MICROALBUMIN: CREATININE RATIO Comments: PATIENT WAS FASTINGPERFORMED BY: [employer] Fpdyan4394 [facility] [id number] (92870) AND (32595) Microalb/Creat Ratio 16.3 {mg/g_creat} (Normal) Range: 0.0-30.0 Microalbumin, Urine 21.2 ug/mL (Normal) Creatinine, Urine 130.4 mg/dL (Normal) 2-Tga-304074:20 URINALYSIS (81590) Comments: PATIENT WAS FASTINGPERFORMED BY: [email or web address] Fuogtz5174 [facility] [id number] Microscopic Examination See below: (Normal) Comments: Microscopic was indicated and was performed. Nitrite, Urine Negative (Normal) Urobilinogen,Semi-Qn 0.2 mg/dL (Normal) Range: 0.2-1.0 Bilirubin Negative (Normal) Occult Blood Negative (Normal) Ketones Negative (Normal) Glucose Negative (Normal) Protein Negative (Normal) WBC Esterase 1+ (Abnormal) Appearance Clear (Normal) Urine-Color Yellow (Normal) pH 6.0 (Normal) Range: 5.0-7.5 Specific [employer] 1.022 (Normal) Range: 1.005-1.030 2-Naa-629244:20 Metabolic Panel, Comprehensive Comments: PATIENT WAS FASTINGPERFORMED BY: LILIANA [facility] Awhnku3828 [facility]T.[facility] [id number] (68461) ALT (SGPT) 9 [iU]/L (Normal) Range: 0-32 [...] Glucose, Serum 80 mg/dL (Normal) Range: 65-99 4-Elm-548164:20 Lipid Panel (12732) Comments: PATIENT WAS FASTINGPERFORMED BY: LILIANA LabCoBacharach Institute for RehabilitationAtdsgp2032 [facility] [id number] LDL/HDL Ratio 1.4 {ratio_units} (Normal) Range: 0.0-3.2 Comments: LDL/HDL Ratio Men Women 1/2 Avg.Risk 1.0 1.5 Av g.Risk 3.6 3.2 2X Avg.Risk 6.2 5.0 3X Avg.Risk 8.0 6.1 LDL Cholesterol Calc 98 mg/dL (Normal) Range: 0-99 VLDL Cholesterol Jessica 19 mg/dL (Normal) Range: 5-40 HDL Cholesterol 70 mg/dL (Normal) Triglycerides 95 mg/dL (Normal) Range: 0-149 Cholesterol, Total 187 mg/dL (Normal) Range: 100-199 8-Psd-971947:20 CBC, Platelets & Auto Diff Comments: PATIENT WAS FASTINGPERFORMED BY: [employer]6370 [facility] [id number] (64016) Immature Grans (Abs) 0.0 {x10E3/uL} (Normal) Range: [...] 5.4 {x10E3/uL} (Normal) Range: 3.4-10.8 :20 CALCIFEDIOL (99741) Comments: PATIENT WAS FASTINGPERFORMED BY: [employer] Mobile TechnologiesCarlsbad Medical CenterMankbo3818 [facility] [id number] Vitamin D, 25-Hydroxy 30.8 ng/mL (Normal) Range: 30.0-100.0 Comments: Vitamin D deficiency has been defined by the [place] ofBarnes[facility] Hospitalcine and an Endocrine Society practice guideline as alevel of serum 25-OH vitamin D less than 20 ng/mL (1,2).The Endocrine Society went on to further define vitamin Dinsufficiency as a level between 21 and 29 ng/mL (2).1. IOM ([place] of Medicine). 2010. Dietary reference intakes for calcium and D. [place]: The National Academies Press.2. Tono MF, Jonatan NC, Fabiola HUANG, et al. Evaluation, treatment, and prevention of vitamin D deficiency: an Endocrine Society clinical practice guideline. JCEM. 2010; 96(7):1911-30. :53 HgA1C , Office (19652) HgA1C , Office 5.3 % (Normal) Range: 4.6 - 7.1 :53 Blood Glucose , Office (31832) Blood Glucose , Office 79 (Normal) :38 HgA1C , Office (27233) HgA1C , Office 5.5 % (Normal) Range: 4.6 - 7.1 :02 PT (Prothrobim Time) Comments: so; PATIENT NOT FASTINGPERFORMED BY: [facility]PaymentSelect [facility]6370 [facility] [id number] Information: [id number] (88647) Prothrombin Time 20.8 {sec} (Abnormal) Range: 9.1-12.0 INR 2.0 (Abnormal) Range: 0.8-1.2 Comments: Reference interval is for non-anticoagulated patients. . Suggested INR therapeutic range for Vitamin K anta gonist therapy: Standard Dose (moderate intensity therapeutic range): 2.0 - 3.0 Higher intensity therapeutic range 2.5 - 3.5 44-Exd-401658:07 CBC W/Diff, Automated Comments: [facility] [address] [place], [place], [id number] ; Dr oates Absolute Lymph 2.18 {X10_3/ul} [...] K/mm3 (Normal) Range: 4.4-11.0 :36 CREATININE CLEARANCE (49112) Comments: PATIENT NOT FASTINGPERFORMED BY: [facility]6370 [facility] [id number] Creatinine Clearance 61 mL/min (Abnormal) Range: 88-128 Comments: The above range is based on 1.73 square meter average body surfacearea. Creatinine, Ur 24hr 575.7 {mg/24_hr} (Abnormal) Range: 800.0-1800.0 Creatinine, Urine 60.6 mg/dL (Normal) :36 Total Protein,24 Hour Urine Comments: PATIENT NOT FASTINGPERFORMED BY: [facility]6370 [facility] [id number] (99074) Prot,24hr calculated 191.0 {mg/24_hr} (Abnormal) Range: 30.0-150.0 Protein,Total,Urine 20.1 mg/dL (Normal) :36 METABOLIC PANEL, COMPREHENSIVE Comments: PATIENT NOT FASTINGPERFORMED BY: [place] [id number] [facility] [id number] (87762) ALT (SGPT) 8 [iU]/L (Normal) Range: 0-32 [...] auto diff Comments: PATIENT NOT FASTINGPERFORMED BY: LabCoB[facility]arach Institute for RehabilitationGtcpem9285 [facility] [id number] Information: [id number] (85299) Immature Grans (Abs) 0.0 {x10E3/uL} (Normal) Range: [...] (Normal) Range: 3.4-10.8 :44 HgA1C , Office (49495) HgA1C , Office 5.2 % (Normal) Range: 4.6 - 7.1 :14 HH, Hemoglobin AND Hematocrit Comments: [facility] [address] [place], [address] HCT 35.4 % (Abnormal) Range: 37-47 HGB 11.3 g/dL (Abnormal) Range: 12.0-15.0 02-Mij-312867:25 Basic Metabolic Profile (BMP) Comments: 'TROP' Serial specimen #1, #2, #3, or #4: [facility] [address] [place], [address] GAP 3 (Abnormal) Range: 5-15 CO2 29.0 [...] <126 mg/dLsuggests IMPAIRED HOMEOSTASIS per A.D.A. criteria. 49-Vss-167418:25 CBC W/Diff, Automated Comments: [facility] [address] [place], [place], [address] Absolute Lymph 2.14 {X10_3/ul} (Normal) Range: 0.83-4.51 [...] 4.2-5.4 WBC 5.7 K/mm3 (Normal) Range: 4.4-11.0 98-Spd-387311:25 Troponin-I Comments: 'TROP' Serial specimen #1, #2, #3, or #4: [address] [place] [address] [address] [place], [place], [address] TROPONIN-I < 0.02 ng/mL (Normal) Comments: TROPONIN-I EXPECTED VALUES <0.05 NEGATIVE 0.06 - 0.59 AT RISK OF OR > OR = 0.60 SUGGEST OR 76-Zmq-983110:25 METABOLIC PANEL, COMPREHENSIVE Comments: PATIENT NOT FASTINGPERFORMED BY: LabCoBacharach Institute for RehabilitationDabvut4553 [facility] [id number] (94937) ALT (SGPT) 11 [iU]/L (Normal) Range: 0-32 [...] be decreased and K increased. Clinicalcorrelation indicated. 25-Zag-072443:25 CBC with auto diff Comments: PATIENT NOT FASTINGPERFORMED BY: [facility] Yvdchw0271 [facility] [id number] Information: [id number] (53059) Immature Grans (Abs) 0.0 {x10E3/uL} (Normal) Range: [...] 3.4-10.8 :11 HH, Hemoglobin AND Hematocrit Comments: [facility] [address] [place], [address] ; ordred by another doctor [facility] HCT 24.1 % (Abnormal) Range: 37-47 HGB 7.9 g/dL (Abnormal) Range: 12.0-15.0 :25 Urinalysis, Complete Comments: How was Urine Obtained? PV INSTALLER TECH TO [facility] J[address]ixyt5810 [facility] [place], [address] MUCUS, URINE 0 SEEN {/hpf} [...] Serial specimen #1, #2, #3, or #4: [facility] [address]mq3805 [facility] [address] [place], [place], [id number](588) LENNY 29 U/L (Normal) Range: 25-115 : CBC W/Diff, Automated Comments: [facility] X[address]184 [facility] [place], [place], [phone] Absolute Lymph 1.14 {X10_3/ul} (Normal) Range: 0.83-4.51 [...] Serial specimen #1, #2, #3, or #4: 1[facility] [address] [place], [place], [address] GAP 11 (Normal) Range: 5-15 CO2 22.0 [...] per A.D.A. criteria. :00 Lactic Acid Comments: [facility] [address] [place], [address] LACTIC ACID 3.8 mmol/L (Abnormal) Range: 0.4-2.0 :00 Lipase Comments: 'TROP' Serial specimen #1, #2, #3, or #4: [address] [place] [address] [place], [place], [address] LIPASE 84 U/L (Normal) Range: 73-393 :00 Partial Thromboplast Time Comments: [place] [address] [place], [place], [address] PTT 30.2 s (Normal) Range: 24.1-36.2 :00 Prothrombin Time w/INR Comments: [place] [address] [place], [place], [address] INR 3.7 (Abnormal) Comments: CRITICAL VALUE REPEATED AND VERIFIED. CALLED TO [place] [phone] Nia Delong.RESULTS READ BACK BY SAME . PROTIME 35.8 s (Abnormal) Range: 11.7-14.9 12-Sep-20153:00 Troponin-I Comments: 'TROP' Serial specimen #1, #2, #3, or #4: [address] [place] [address] [place], [place], [address] TROPONIN-I 0.05 ng/mL (Normal) Comments: TROPONIN-I EXPECTED VALUES <0.05 NEGATIVE 0.06 - 0.59 AT RISK OF OR > OR = 0.60 SUGGEST OR 06-Xvx-201753:09 INR Fingerstick Comments: [facility] LaboratoryPoint of [address] [place], [place] [address] INR ISTAT 1.60 (Normal) Comments: Critical Value > 3.5 43-Dhf-217114:09 Prothrombin Time Fingerstick Comments: [facility] [place] [address] [place] [address] PROTIME ISTAT 19.2 {SEC} (Abnormal) Range: 11.9-14.4 Comments: Reference Range 11.9 - 14.4 42-Qqy-106821:23 URINE CAMERON CULTURE-IDENTIFICATN Comments: PATIENT NOT FASTINGPERFORMED BY: LabCoBacharach Institute for RehabilitationJmnixz6099 [facility] [id number] Information: [id number] (02534) Result 1 BETAGB (Abnormal) Comments: Beta hemolytic [...] (CLSI 2011) Urine Final report (Abnormal) Culture,Comprehensive 47-Tiu-623679:05 Urinalysis, Office (50171) UA - LEUKOCYTE ESTERASE Small (Normal) UA - NITRITE Negative (Normal) URINE UROBILINGN HAIDER TIMED Normal mg/dL (Normal) UA - PROTEIN Negative mg/dL (Normal) UA - PH 7 (Normal) UA - BLOOD Hemolyzed Large (Normal) UA - SPECIFIC GRAVITY 1.010 (Normal) UA - KETONES Negative mg/dL (Normal) UA - BILIRUBIN Negative (Normal) UA - GLUCOSE Negative (Normal) 24-Zcb-144186:22 INR Fingerstick Comments: [facility] [place] [address] [place], [place] [address] INR ISTAT 2.70 (Normal) Comments: Critical Value > 3.5 07-Csv-725999:22 Prothrombin Time Fingerstick Comments: [facility] [place] [address] [place] [address]( PROTIME ISTAT 30.9 {SEC} (Abnormal) Range: 11.9-14.4 Comments: Reference Range 11.9 - 14.4 :37 INR Fingerstick Comments: [place] [address] [place] [address]( INR ISTAT 2.90 (Normal) Comments: Critical Value > 3.5 :37 Prothrombin Time Fingerstick Comments: [place] [address] [place] [address] PROTIME ISTAT 32.8 {SEC} (Abnormal) Range: 11.9-14.4 Comments: Reference Range 11.9 - 14.4 :41 INR Fingerstick Comments: [place] [address] [place] [address] INR ISTAT 2.50 (Normal) Comments: Critical Value > 3.5 :41 Prothrombin Time Fingerstick Comments: [place] [address] [place] [address] PROTIME ISTAT 28.4 {SEC} (Abnormal) Range: 11.9-14.4 Comments: Reference Range 11.9 - 14.4 :30 INR Fingerstick Comments: [place] [address] [place] [address] INR ISTAT 2.40 (Normal) Comments: Critical Value > 3.5 :30 Prothrombin Time Fingerstick Comments: [place] [address] [place] [address] PROTIME ISTAT 27.3 {SEC} (Abnormal) Range: 11.9-14.4 Comments: Reference Range 11.9 - 14.4 :51 PT (Prothrobim Time) Comments: standing order fingerstick or serum; PATIENT NOT FASTINGPERFORMED BY: LabCoCarlsbad Medical CenterRffydq5773 [facility] [id number] Information: [id number] (30527) Prothrombin Time 33.2 {sec} (Abnormal) Range: 9.1-12.0 INR 3.2 (Abnormal) Range: 0.8-1.2 Comments: Reference interval is for non-anticoagulated patients. . Suggested INR therapeutic range for Vitamin K anta gonist therapy: Standard Dose (moderate intensity therapeutic range): 2.0 - 3.0 Higher intensity therapeutic range 2.5 - 3.5 80-Diu-590751:05 HgA1C , Office (68533) HgA1C , Office 5.5 % (Normal) Range: 4.6 - 7.1 69-Thk-165787:50 Prothrombin Time w/INR Comments: [facility] [address] [place], [address] INR 2.5 (Normal) PROTIME 26.9 s (Abnormal) Range: 11.7-14.9 75-Asc-743121:05 Prothrombin Time w/INR Comments: [facility] [address] [place], [address] INR 2.4 (Normal) PROTIME 26.1 s (Abnormal) Range: 11.7-14.9 14-Sfw-288939:31 Prothrombin Time w/INR Comments: [facility] [address] [place], [address] INR 3.1 (Normal) PROTIME 31.9 s (Abnormal) Range: 11.7-14.9 70-Eyo-364861:14 Prothrombin Time w/INR Comments: [facility] [address] [place], [address] INR 2.9 (Normal) PROTIME 30.4 s (Abnormal) Range: 11.7-14.9 78-Ola-767938:40 Prothrombin Time w/INR Comments: [facility] [address] [place], [address] INR 2.4 (Normal) PROTIME 26.3 s (Abnormal) Range: 11.7-14.9 74-Rvo-985954:00 PT (Prothrobim Time) Comments: standing order; PATIENT NOT FASTINGPERFORMED BY: [place] [id number] [facility] [id number] Information: [id number] (14240) Prothrombin Time 17.3 {sec} (Abnormal) Range: 9.1-12.0 INR 1.7 (Abnormal) Range: 0.8-1.2 Comments: Reference interval is for non-anticoagulated patients. . Suggested INR therapeutic range for Vitamin K anta gonist therapy: Standard Dose (moderate intensity therapeutic range): 2.0 - 3.0 Higher intensity therapeutic range 2.5 - 3.5 94-Jll-786937:00 Hemoglobin Glyclated (HGB A1C) Comments: PATIENT NOT FASTINGPERFORMED BY: [facility]6370 [facility] [id number] (50095) Hemoglobin A1c 5.7 % (Abnormal) Range: 4.8-5.6 Comments: . Increased risk for diabetes: 5.7 - 6.4 Diabetes: >6.4 Glycemic control for adults with diabetes: <7.0 59-Ujy-494722:34 Prothrombin Time w/INR Comments: Test performed at:[facility] [address] [place] [address] INR 2.3 (Normal) PROTIME 25.4 s (Abnormal) Range: 11.7-14.9 :54 Prothrombin Time w/INR Comments: Test performed at:[facility] [id number] [place] [address] INR 2.6 (Normal) PROTIME 27.6 s (Abnormal) Range: 11.7-14.9 [id number] PT (Prothrobim Time) Comments: so; PATIENT NOT FASTINGPERFORMED BY: [place] [id number] [facility] [id number] Information: [id number] ([id number]) Prothrombin Time 35.6 {sec} (Abnormal) Range: 9.1-12.0 INR 3.4 (Abnormal) Range: 0.8-1.2 Comments: Reference interval is for non-anticoagulated patients. . Suggested INR therapeutic range for Vitamin K anta gonist therapy: Standard Dose (moderate intensity therapeutic range): 2.0 - 3.0 Higher intensity therapeutic range 2.5 - 3.5 :42 Prothrombin Time w/INR Comments: Test performed at:[facility] Akduwmnpje1022 [facility] [place] [address] INR 1.9 (Normal) PROTIME 22.2 s (Abnormal) Range: 11.7-14.9 35-Dzz-27058:10 Prothrombin Time w/INR Comments: Test performed at:[facility] Llxtpzmuos7367 [facility] [place] [address] INR 2.5 (Normal) PROTIME 26.7 s (Abnormal) Range: 11.7-14.9 24-Prs-411891:49 CBC with auto diff Comments: copy of all labs to Dr. martinez; PATIENT WAS FASTINGPERFORMED BY: LabCoBacharach Institute for RehabilitationVyfosh2809 [facility] [id number] Information: [id number] (08759) Immature Grans (Abs) 0.0 {x10E3/uL} (Normal) Range: [...] 6.0 {x10E3/uL} (Normal) Range: 3.4-10.8 :49 CALCIFIDIOL (47290) VIT D 25 Comments: PATIENT WAS FASTINGPERFORMED BY: [employer] Yeqbyc0862 [facility] [id number] Vitamin D, 25-Hydroxy 28.0 ng/mL (Abnormal) Range: 30.0-100.0 Comments: Vitamin D deficiency has been defined by the [place] [facility] and an Endocrine Society practice guideline as alevel of serum 25-OH vitamin D less than 20 ng/mL (1,2).The Endocrine Society went on to further define vitamin Dinsufficiency as a level between 21 and 29 ng/mL (2).1. IOM ([place] of Medicine). 2010. Dietary reference intakes for calcium and D. [place]: The National Academies Press.2. Tono MF, Jonatan NC, Fabiola HUANG, et al. Evaluation, treatment, and prevention of vitamin D deficiency: an Endocrine Society clinical practice guideline. JCEM. 2010; 96(7):1911-30. :49 MICROALBUMIN: CREATININE RATIO Comments: PATIENT WAS FASTINGPERFORMED BY: [employer] Mobile TechnologiesBacharach Institute for RehabilitationJqiudf8274 [facility] [id number]; apt. 03-02-15 (92285) AND (68447) Microalb/Creat Ratio 23.8 {mg/g_creat} (Normal) Range: 0.0-30.0 Microalbumin, Urine 17.2 ug/mL (Abnormal) Range: 0.0-17.0 Creatinine, Urine 72.3 mg/dL (Normal) Range: 15.0-278.0 :49 METABOLIC PANEL, COMPREHENSIVE Comments: PATIENT WAS FASTINGPERFORMED BY: [employer] [facility] [id number] (26724) ALT (SGPT) 7 [iU]/L (Normal) Range: 0-32 [...] Glucose, Serum 82 mg/dL (Normal) Range: 65-99 90-Jtb-875431:49 LIPID PANEL (59168) Comments: PATIENT WAS FASTINGPERFORMED BY: [employer] Xbbjyz5861 [facility] [id number] LDL/HDL Ratio 1.0 {ratio_units} (Normal) Range: 0.0-3.2 [...] (Normal) Range: 100-199 :26 HgA1C , Office (92763) HgA1C , Office 5.6 % (Normal) Range: 4.6 - 7.1 :26 Blood Glucose , Office (56511) Blood Glucose , Office 102 (Normal) :27 Prothrombin Time w/INR Comments: Test performed at:[facility] X[address] [facility] [place] [address] INR 3.3 (Normal) PROTIME 33.6 s (Abnormal) Range: 11.7-14.9 :35 Prothrombin Time w/INR Comments: Test performed at:[facility] [address] [place] [address] INR 2.7 (Normal) PROTIME 28.9 s (Abnormal) Range: 11.7-14.9 :18 Prothrombin Time w/INR Comments: Test performed at:[facility] [address] [place] [address] INR 2.5 (Normal) PROTIME 27.0 s (Abnormal) Range: 11.7-14.9 :37 Prothrombin Time w/INR Comments: Test performed at:[facility] [address] [place] [address] INR 2.2 (Normal) PROTIME 24.4 s (Abnormal) Range: 11.7-14.9 :13 Prothrombin Time w/INR Comments: Test performed at:[facility] [address] [place], [place] [address] INR 2.4 (Normal) PROTIME 26.2 s (Abnormal) Range: 11.7-14.9 :48 PT INR 2.4 (Normal) PTP 25.8 s (Abnormal) Range: 11.7-14.9 :43 HgA1C , Office (83698) HgA1C , Office 5.8 % (Normal) Range: 4.6 - 7.1 :43 Blood Glucose , Office (94427) Blood Glucose , Office 98 (Normal) :15 [...] 4.2-5.4 WBC 5.0 K/mm3 (Normal) Range: 4.4-11.0 93-Fqg-461853:15 CMP GAP 6 (Normal) Range: 5-15 CO2 [...] 7-18 GLU 80 mg/dL (Normal) Range: 70-110 28-Txy-724745:15 LIPID VLDL 19 mg/dL (Normal) Range: 5-40 [...] CHOL 130 mg/dL (Normal) Comments: <200 mg/dL Chkrodinb810-515 mg/dL Borderline>240 mg/dL High Risk 00-Ght-030773:15 PT INR 2.7 (Normal) PTP 28.2 s (Abnormal) Range: 11.7-14.9 88-Ffi-718682:15 UA Comments: How was Urine Obtained? CLEAN [...] Comments: Please note revised PROTIME reference range oxuncunya70/14/15. 0-Kbj-014557:27 PT INR 1.6 (Normal) PTP 19.1 s (Abnormal) Range: 11.7-14.9 Comments: Please note revised PROTIME reference range ajjqfyqpb10/14/15. 81-Lhl-250678:55 HgA1C , Office (83663) HgA1C , Office 6.0 % (Normal) Range: 4.6 - 7.1 :55 Blood Glucose , Office (01209) Blood Glucose , Office 103 (Normal) :55 PT INR 2.3 (Normal) PTP 24.9 s (Abnormal) Range: 11.7-14.9 Comments: Please note revised PROTIME reference range boeosiyxx10/. 9-:51 PT INR 2.1 (Normal) PTP 21.9 [...] CHOL 153 mg/dL (Normal) Comments: <200 mg/dL Wvcytuzsm088-821 mg/dL Borderline>240 mg/dL High Risk TRIG 93 mg/dL (Normal) Range: 0-199 Comments: Serum Triglycerides Reference IntervalNormal <150 mg/dLBorderline high 150 - 199 mg/dLHigh 200 - 499 mg/ dLVery High > or = 500 mg/dL :08 Blood Glucose , Office (99280) Blood Glucose , Office 90 (Normal) :08 HgA1C , Office (45287) HgA1C , Office 6.0 % (Normal) Range: [...] (Abnormal) Range: 11.9-14.4 :12 HgA1C , Office (79025) HgA1C , Office 6.8 % (Normal) Range: 4.6 - 7.1 :12 Blood Glucose , Office (73612) Blood Glucose , Office 109 (Normal) :20 [...] CHOL 167 mg/dL (Normal) Comments: <200 mg/dL Pufdxrzvz242-228 mg/dL Borderline>240 mg/dL High Risk TRIG 155 [...] (Prothrobim Time) Comments: PATIENT NOT FASTINGPERFORMED BY: [address] [id number] Information: [id number] (78769) Prothrombin Time 18.3 {sec} (Abnormal) Range: 9.1-12.0 INR 1.8 (Abnormal) Range: 0.8-1.2 Comments: Reference interval is for non-anticoagulated patients. . Suggested INR therapeutic range for Vitamin K anta gonist therapy: Standard Dose (moderate intensity therapeutic range): 2.0 - 3.0 Higher intensity therapeutic range 2.5 - 3.5 :06 PT (Prothrobim Time) Comments: PATIENT NOT FASTINGPERFORMED BY: [facility]6370 [facility] [id number] Information: [id number] (56011) Prothrombin Time 29.0 {sec} (Abnormal) Range: 9.1-12.0 INR 2.8 (Abnormal) Range: 0.8-1.2 Comments: Reference interval is for non-anticoagulated patients. . Suggested INR therapeutic range for Vitamin K anta gonist therapy: Standard Dose (moderate intensity therapeutic range): 2.0 - 3.0 Higher intensity therapeutic range 2.5 - 3.5 :23 PT (Prothrobim Time) Comments: PATIENT NOT FASTINGPERFORMED BY: [address] [place] [id number] Information: [id number] ORDER NO DRAW F EE (53306) Prothrombin Time 31.6 {sec} (Abnormal) Range: 9.1-12.0 INR 3.0 (Abnormal) Range: 0.8-1.2 Comments: Reference interval is for non-anticoagulated patients. . Suggested INR therapeutic range for Vitamin K anta gonist therapy: Standard Dose (moderate intensity therapeutic range): 2.0 - 3.0 Higher intensity therapeutic range 2.5 - 3.5 7-Jjo-000703:23 TSH (97413) Comments: recheck in 3-4 weeks; PATIENT NOT FASTINGPERFORMED BY: [facility]6370 [facility] [id number] TSH 1.150 {uIU/mL} (Normal) Range: 0.450-4.500 2-Cly-262379:23 T4, FREE (THYROXINE) Comments: recheck in 3-4 weeks; PATIENT NOT FASTINGPERFORMED BY: [facility]6370 [facility] [id number] Information: [id number] (65666) T4,Free(Direct) 1.08 ng/dL (Normal) Range: 0.82-1.77 2-Ofr-973575:23 T3, FREE (TRIDOTHYRONINE) (52339) Comments: recheck in 3-4 weeks; PATIENT NOT FASTINGPERFORMED BY: [facility]6370 [facility] [id number] Triiodothyronine,Free,Serum 2.2 pg/mL (Normal) Range: 2.0-4.4 1-Bpx-185610:44 PT (Prothrobim Time) Comments: results to Dr Enrique; PATIENT NOT FASTINGPERFORMED BY: [facility]6370 [facility] [id number] Information: [id number] (68766) Prothrombin Time 31.4 {sec} (Abnormal) Range: 9.1-12.0 INR 3.0 (Abnormal) Range: 0.8-1.2 Comments: Reference interval is for non-anticoagulated patients. . Suggested INR therapeutic range for Vitamin K anta gonist therapy: Standard Dose (moderate intensity therapeutic range): 2.0 - 3.0 Higher intensity therapeutic range 2.5 - 3.5 :44 TSH (18745) Comments: PATIENT NOT FASTINGPERFORMED BY: [facility] [place] [id number] TSH 0.139 {uIU/mL} (Abnormal) Range: 0.450-4.500 :44 T4, FREE (THYROXINE) (50639) Comments: PATIENT NOT FASTINGPERFORMED BY: [facility] [facility] [place] [id number] T4,Free(Direct) 1.18 ng/dL (Normal) Range: 0.82-1.77 :44 T3, FREE (TRIDOTHYRONINE) (69233) Comments: PATIENT NOT FASTINGPERFORMED BY: [facility] [facility] [place] [id number] Triiodothyronine,Free,Serum 2.1 pg/mL (Normal) Range: 2.0-4.4 :02 SED RATE ERYTHROCYTE (71944) Comments: PATIENT NOT FASTINGPERFORMED BY: [facility]6[address] [facility] [place] [id number] Sedimentation Rate-Westergren 18 mm/h (Normal) Range: 0-40 :02 TSH (96225) Comments: PATIENT NOT FASTINGPERFORMED BY: [facility]6[address] [facility] [place] [id number] TSH 0.358 {uIU/mL} (Abnormal) Range: 0.450-4.500 8-Biw-335504:02 VIKI (ANTINUCLEAR ANTIBODY) Comments: PATIENT NOT FASTINGPERFORMED BY: [facility] Sqorqw6[address] [facility] Hospital[facility] [place] [id number] (40698) VIKI Direct Negative (Normal) : CBC WITH MANUAL DIFF Comments: PATIENT NOT FASTINGPERFORMED BY: [facility] [facility] [id number] Information: [id number] (62550) Immature Grans (Abs) 0.0 {x10E3/uL} (Normal) Range: [...] of these values in the reference population. 4-Qnv-020918:02 METABOLIC PANEL, COMPREHENSIVE Comments: PATIENT NOT FASTINGPERFORMED BY: LabCoBacharach Institute for RehabilitationCsutsp6166 [facility] [id number] (87252) ALT (SGPT) 11 [iU]/L (Normal) Range: 0-32 [...] Glucose, Serum 94 mg/dL (Normal) Range: 65-99 18-Vaw-449947:20 PT INR 2.0 (Normal) PTP 21.6 s (Abnormal) Range: 11.9-14.4 27-Ewy-962861:24 BILAT SCRN DIGITAL & CAD Radiology Report [...] M.D.January 31, 2013 at 6:48:38 P M [id number] Signed RU/RU If you are the referring physician and would like to consult with theradiologist who provided this interpretation, please contact Taz Stack at . If this radiologist is unavailable, youwillbe directed to another radiologist to assist. If you are a patient with a question regarding this report, pleasecontactyour referring physician dire ctly. Professional Interpretation Provided By: [employer], Phone , These documents contain legally protected [...] Jhon Lazcano :53 Blood Glucose , Office (26286) Blood Glucose , Office 115 (Normal) :53 HgA1C , Office (74339) HgA1C , Office 6.1 % (Normal) Range: 4.6 - 7.1 :52 PT INR 1.7 (Normal) PTP 18.6 s (Abnormal) Range: 11.9-14.4 :56 Aerobic Bacterial Culture Comments: PERFORMED BY: [facility]6370 [facility] [id number] Information: SRC:UB Result 1 Mixed skin yaakov (Normal) Aerobic Bacterial Culture Final report (Normal) :37 PT INR 2.5 (Normal) PTP 25.6 s (Abnormal) Range: 11.9-14.4 :03 HgA1C , Office (05874) HgA1C , Office 7.1 % (Normal) Range: [...] D deficiency has been defined by the [place] ofMedicine and an Endocrine Society practice guideline as alevel of serum 25-OH vitamin D less than 20 ng/mL (1,2).The Endocrine Society went on to further define vitamin Dinsufficiency as a level between 21 and 29 ng/mL (2).1. IOM ([place] of Medicine). 2010. Dietary reference intakes for calcium and D. [place]: The National Academies Press.2. Tono MF, Jonatan DYER, Fabiola HUANG et al. Evaluation, treatment, and prevention of vitamin D deficiency: an Endocrine Society clinical practice guideline. JCEM. 2010; 96(7): 1911-30.Performed at: [address] [id number] Director: Tyrese Arora PhD, Phone: [phone] PT INR 2.7 (Normal) PTP 26.4 [...] (Abnormal) Range: 11.9-14.4 :28 HgA1C , Office (52044) HgA1C , Office 6.1 % (Normal) Range: 4.6 - 7.1 :28 Blood Glucose , Office (23409) Blood Glucose , Office 154 (Normal) 99-Ynw-911399:15 PT INR 2.5 (Normal) PTP 25.2 s [...] Perea M.D.January 30, 2012 at 12:54:04 PM [id number] Signed GP/GP If you are the referring physician and would like to consult with t heradiologist who provided this interpretation, please contact Taz Morrison at [phone]. If this radiologist is unavailable, youwill be directed to another radiologist to assist. If you a re a patient with a question regarding this report, pleasecontactyour referring physician directly. Professional Interpretation Provided By: [employer], Phone , These docu ments contain legally [...] on 01/30/12 1432 Sign by: Eliazar BAUTISTA,Sergio 53-Zyw-903154:58 PT Comments: standing order INR 3.5 (Normal) PTP 32.2 s (Abnormal) Range: 11.9-14.4 07-Dbx-923308:51 PT INR 2.6 (Normal) PTP 25.9 s [...] Alvarez M.D.December 26, 2011 at 10:00:06 AM [id number] Signed RB/RB If y ou are the [...] (Abnormal) Range: 11.9-14.4 :46 HgA1C , Office (12796) HgA1C , Office 6.5 % (Normal) Range: 4.6 - 7.1 :46 Blood Glucose , Office (77838) Blood Glucose , Office 107 (Normal) :14 [...] (Abnormal) Range: 11.9-14.4 :14 HgA1C , Office (68762) HgA1C , Office 7.2 % (Abnormal) Range: 4.6 - 7.1 :14 Blood Glucose , Office (94982) Blood Glucose , Office 126 (Normal) :12 [...] s (Abnormal) Range: 11.9-14.4 :22 VIT D,25 41004 45.9 ng/mL (Normal) Range: 30.0-100.0 Comments: Vitamin D deficiency has been defined by the [place] ofMedicine and an Endocrine Society practice guideline as alevel of serum 25-OH vitamin D less than 20 ng/mL (1,2).The Endocrine Society went on to further define vitamin Dinsufficiency as a level between 21 and 29 ng/mL (2).1. IOM ([place] of Medicine). 2011. Dietary reference intakes for calcium and D. [place]: The National Academies Press.2. Tono MF, Jonatan NC, Zach-Clifton HUANG, et al. Evaluation, treatment, and prevention of vitamin D deficiency: an Endocrine Society clinical practice guideline. JCEM. 2010; 96(7): 1911-30.Performed at: [facility] Lab[address] [id number] Director: Kathleen Lorenzo MD, Phone: [phone] PRO TIME INR 2.6 (Normal) PROTIME 26.9 s (Abnormal) Range: 11.9-14.4 :18 PRO TIME INR 1.8 (Normal) PROTIME 20.1 s (Abnormal) Range: 11.9-14.4 :04 HgA1C , Office (43072) HgA1C , Office 5.9 % (Normal) Range: 4.6 - 7.1 :04 Blood Glucose , Office (96868) Blood Glucose , Office 101 (Normal) :12 [...] (Abnormal) Range: 11.9-14.4 :30 HgA1C , Office (68820) HgA1C , Office 6.4 % (Normal) Range: 4.6 - 7.1 C difficile Toxins Negative (Normal) Comments: PERFORMED BY: [address] [id number] :[id number] A+B, EIA Occult Blood, Fecal, Negative (Normal) Comments: PERFORMED BY: [address] [id number] :[id number] IA :06 Ova + Parasite Exam Comments: PERFORMED BY: [facility] [place] [address] [id number] Result 1 NOCP (Normal) Comments: No ova, cysts, or parasites seen. Ova + Parasite Exam Final report (Normal) Comments: These results were obtained using wet preparation(s) and trichromestained smear. This test does not include testing for Cryptosporidiumparvum, Cyclospora, or Microsporidia. :06 Stool Culture Comments: PERFORMED BY: [address] [id number] Information: SRC:ST E coli Shiga Toxin EIA Negative (Normal) Result 1 NCI (Normal) Comments: No Campylobacter species isolated. Campylobacter Culture Final report (Normal) Result 1 NSS (Normal) Comments: No Salmonella or Shigella recovered. Salmonella/Shigella Screen Final report (Normal) :06 White Blood Cells (WBC), Comments: PERFORMED BY: [address] [id number] Stool Result 1 NWBC (Normal) Comments: No [...] on 2223 Sign by: Keya Nava MD 79-Gzt-187685:42 BILAT SCRN DIGITAL & CAD Radiology Report [...] CREAT 112.8 mg/dL (Normal) :43 VIT D,25 46461 38.3 ng/mL (Normal) Range: 32.0-100.0 Comments: Recent studies consider the lower limit of 32.0 ng/mL to gosia threshold for optimal health.Joseph NOEL. J Nutr. 2004;135(2):317-22.Performed at: [facility] LabStephanie [place] [address]Lab Director: Kathleen Lorenzo MD, Phone: [phone] 8-Vgh-188850:14 CBCD,SMEAR DIFF PLT EST SeeNote (Normal) Comments: [...] 4.2-5.4 WBC 7.1 K/mm3 (Normal) Range: 4.4-11.0 7-Khy-639696:14 COMP METABOLIC CO2 28.0 mmol/L (Normal) Range: [...] 7-18 GLU 104 mg/dL (Normal) Range: 70-110 6-Bdo-576380:14 LIPID VLDL 23 mg/dL (Normal) Range: 5-40 [...] CREAT 71.2 mg/dL (Normal) :14 VIT D,25 40054 39.1 ng/mL (Normal) Range: 32.0-100.0 Comments: Recent studies consider the lower limit of 32.0 ng/mL to gosia threshold for optimal health.Joseph NOEL. J Nutr. 2004;135(2):317-22.Performed at: [facility] LabSte[place]ie [place] [address]Lab Director: Kathleen Lorezno MD, Phone: [phone] 76-Qgr-521186:36 HgA1C , Office (58766) HgA1C , Office 7.5 % (Abnormal) Range: 4.6 - 7.1 :36 Blood Glucose , Office (52756) Blood Glucose , Office 108 (Normal) :41 [...] CHOL 148 mg/dL (Normal) Comments: <200 mg/dL Oszgffupu371-964 mg/dL Borderline>240 mg/dL High Risk HDL 62 [...] CREAT 78.4 mg/dL (Normal) :41 VIT D,25 76321 37.9 ng/mL (Normal) Range: 32.0-100.0 Comments: Recent studies consider the lower limit of 32.0 ng/mL to gosia threshold for optimal health.Joseph NOEL. J Nutr. 2004;135(2):317-22.Performed at: - LabCo[address] [id number] Director: Kathleen Lorenzo MD, Phone: [phone] 9-Jlv-534599:54 Blood Glucose , Office (88680) Blood Glucose , Office 97 (Normal) :53 HgA1C , Office (46099) HgA1C , Office 7.1 % (Normal) Range: [...] CHOL 160 mg/dL (Normal) Comments: <200 mg/dL Ielzxbnju952-561 mg/dL Borderline>240 mg/dL High Risk TRIG 105 [...] Report See Note (Normal) Comments: Exam Number: [id number] MAMMOGRAM, BILATERAL SCREENING DIGITAL AND CAD HISTORYSix-month [...] mammograms werealso examined with computer-aided detection software ([employer], [employer] Reported By: ZULEYKA LYMAN M.D. 20-Ydl-277383:52 Blood Glucose , Office (57426) Blood Glucose , Office 128 (Normal) 10-Moa-89768:24 CBCD,SMEAR DIFF BAND 1 % (Normal) Range: [...] 31 mg/dL (Normal) Range: 5-40 :24 METHYLM 185713 134 nmol/L (Normal) Comments: SPE Scanned image [...] UR CREAT 79.1 mg/dL (Normal) :24 SPE [id number] Comments: SPE Scanned image report available in [...] electrophoresis scan will follow via computer,mail, or airplane rigger delivery. PROTEIN,TOTAL 7.2 g/dL (Normal) Range: 6.0-8.5 :24 VIT D,25 48933 17.0 ng/mL (Abnormal) Comments: SPE Scanned image report available in PCI.See LAB REFERENCE RESULTS form. Range: 32.0-100.0 Comments: Recent studies consider the lower limit of 32.0 ng/mL to gosia threshold for optimal health.Joseph NOEL. J Nutr. 2004;135(2):317-22. :57 HgA1C , Office (12790) HgA1C , Office 7.3 % (Abnormal) Range: 4.6 - 7.1 :56 Blood Glucose , Office (42339) Blood Glucose , Office 144 (Normal) :52 [...] T PROT 7.1 g/dL (Normal) Range: 6.4-8.2 7-Jeferson-57424:52 LIPID CHOL 194 mg/dL (Normal) Comments: <200 [...] mg/dL VLDL 42 mg/dL (Abnormal) Range: 5-40 7-Gao-309662:19 UNILAT RT DIAG DIGITAL & CAD Radiology Report See Note (Normal) Comments: Exam Number: [id number] MAMMOGRAM, UNILATERAL RIGHT DIAGNOSTIC DIGITAL AND CAD [...] mammograms werealso examined with computer-aided detection software ([employer], [employer] Reported By: ZULEYKA LYMAN M.D. 08-Oaa-628197:29 HgA1C , Office (83461) HgA1C , Office 6.6 % (Normal) Range: 4.6 - 7.1 73-Bou-987514:29 Blood Glucose , Office (77152) Blood Glucose , Office 115 (Normal) :53 [...] T PROT 7.4 g/dL (Normal) Range: 6.4-8.2 82-Sxc-134892:13 [facility] DIA DIGITAL & CAD Radiology Report See Note (Normal) Comments: Exam Number: [id number] MAMMOGRAM, UNILATERAL RIGHT DIAGNOSTIC DIGITAL AND CAD [...] mammograms werealso examined with computer-aided detection software ([employer].). Reported By: ZULEYKA LYMAN M.D. 22-Jkz-252993:41 [facility] DIGITAL & CAD Radiology Report See Note (Normal) Comments: Exam Number: [id number] BILATERAL SCREENING MAMMOGRAM COMPARISONComparison is made to [...] The mammogramswere also examined with computer-aided detection software([employer].). Reported By: HARPER OLIVERA M.D. :38 Blood Glucose , Office (89171) Blood Glucose , Office 108 (Normal) :57 [...] (Normal) Range: 6.4-8.2 :42 HgA1C , Office (07498) HgA1C , Office 6.3 % (Normal) Range: [...] mg/dL (Normal) :19 Blood Glucose , Office (31105) Blood Glucose , Office 151 (Normal) Comments: :19 HgA1C , Office (18300) HgA1C , Office 6.0 % (Normal) Range: 4.6 - 7.1 Comments: opal 94-Pwl-755284:11 BREAST UNILATERAL US () Radiology Report See Note (Normal) Comments: Exam Number: [id number] TARGETED RIGHT BREAST ULTRASOUND High resolution real time linear images were obtained at 12:00 at thelevel of palpable abnormality reported by the ordering physician andin the up per outer quadrant of the breast where the patient reportedpain. No solid or cystic mass is seen. No displacement of softtissue planes is identified. IMPRESSIONThere is no ultrasound abnormality identified. Reported By: ZULEYKA LYMAN M.D. 00-Zik-537618:33 BILAT DIAG DIGITAL & CAD Radiology Report See Note (Normal) Comments: Exam Number: [id number] MAMMOGRAM, BILATERAL DIAGNOSTIC DIGITAL AND CAD HISTORYRoutine [...] mammograms werealso examined with computer-aided detection software ([employer], [employer] Reported By: ZULEYKA LYMAN M.D. 5-Lys-782639:16 DEXA BONE DENSITY STUDY () Radiology Report See Note (Normal) Comments: Exam Number: [id number] BONE DENSITOMETRY HISTORYPostmenopausal. TECHNIQUE Bone densitometry of [...] withinnormal limits. Reported By: ZULEYKA LYMAN M.D. 6-Ecb-732365:53 HgA1C , Office (21494) HgA1C , Office 5.8 % (Normal) Range: 4.6 - 7.1 8-Zmg-136625:53 Blood Glucose , Office (98391) Blood Glucose , Office 98 (Normal) 92-Llh-757117:00 CULTURE, URINE URINE CULTURE See Note {CFU/mL} (Normal) Comments: COLONY COUNT 11,000-25,000 ORGANISM 1: MIXED GRAM POS & NEG ORGANISMS 36-Dup-754970:57 Urinalysis, Office (78985) Comments: ABN signed UA - BILIRUBIN Negative (Normal) UA - BLOOD Negative (Normal) UA - GLUCOSE Negative (Normal) UA - KETONES Negative mg/dL (Normal) UA - LEUKOCYTE ESTERASE Trace (Normal) UA - NITRITE Negative (Normal) UA - PH 7.0 (Normal) UA - PROTEIN Negative mg/dL (Normal) UA - SPECIFIC GRAVITY 1.005 (Normal) URINE UROBILINGN HAIDER TIMED 2 mg/dL (Normal) 42-Ihu-17544:07 LIPID CHOL 166 mg/dL (Normal) Comments: <200 [...] mg/dL VLDL 30 mg/dL (Normal) Range: 5-40 63-Bsy-56483:07 LIVER ALB 3.3 g/dL (Abnormal) Range: 3.4-5.0 ALK P 64 U/L (Normal) Range: 50-136 ALT 31 [iU]/L (Normal) Range: 30-65 AST 19 U/L (Normal) Range: 15-37 D BILI 0.15 mg/dL (Normal) Range: 0.00-0.30 T BILI 0.59 mg/dL (Normal) Range: 0.00-1.00 T PROT 7.2 g/dL (Normal) Range: 6.4-8.2 :21 Blood Glucose , Office (69714) Blood Glucose , Office 120 (Normal) :21 HgA1C , Office (54423) HgA1C , Office 5.6 % (Normal) Range: [...] Cellulitis of left lower leg : Reviewed Safety Scientist Letter Indication: Cellulitis of left lower leg [...] mellitus type II, controlled Planned Observations CALCIFEDIOL (68699)Indication: Vitamin D deficiency, unspecified On: 25-Thk-600875:06 Request HgA1C , Office (56839)Indication: Diabetes mellitus type II, controlled On: :02 Request Blood Glucose , Office (54131)Indication: Diabetes mellitus type II, controlled On: 18-Qbe-613843:02 Request Metabolic Panel, Basic ([id number])Indication: Abdominal pain On: 1-Xtq-701615:30 Request CBC, Platelets & Auto Diff ([id number])Indication: Abdominal pain On: :29 Request CBC WITH MANUAL DIFF ([id number])Indication: Anemia On: 96-Uzh-328820:56 Request CBC WITH MANUAL DIFF ([id number])Indication: Bleeding ulcer On: 50-Kyl-949387:49 Request URINALYSIS, W/ MICRO (22499)Indication: Hypertension, benign On: :21 Request METABOLIC PANEL, COMPREHENSIVE (43510)Indication: Hypertension, benign On: :21 Request LIPID PANEL ([id number])Indication: Hypertension, benign On: :21 Request CBC with auto diff ([id number])Indication: Hypertension, benign On: 09-Rpc-763164:21 Request CALCIFIDIOL (45524) VIT D 25Indication: Vitamin D deficiency, unspecified On: :21 Request CALCIFIDIOL (11053) VIT D 25Indication: Vitamin D deficiency, unspecified On: :29 Request PT (Prothrobim Time) (01508)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 On: :29 Request Comments: standing order for prn checks URINALYSIS, W/ MICRO (62073)Indication: Diabetes mellitus type II, controlled On: :28 Request METABOLIC PANEL, COMPREHENSIVE (76815)Indication: Diabetes mellitus type II, controlled On: :28 Request LIPID PANEL (77797)Indication: Diabetes mellitus type II, controlled On: :28 Request CBC WITH MANUAL DIFF ([id number])Indication: Diabetes mellitus type II, controlled On: 82-Nwq-190386:28 Request PT (Prothrobim Time) ([id number])Indication: History of DVT (deep vein thrombosis) On: 30-Eox-74598:04 Request Comments: standing order METABOLIC PANEL, COMPREHENSIVE ([id number])Indication: Diabetes mellitus type II, controlled On: 18-Tkt-962012:20 Request LIPID PANEL ([id number])Indication: Diabetes mellitus type II, controlled On: 82-Dmf-623083:20 Request CBC WITH MANUAL DIFF ([id number])Indication: Diabetes mellitus type II, controlled On: 60-Kyl-490238:20 Request PT (Prothrobim Time) ([id number])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: care home 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 of 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 therapy On: 91-Etx-776364:55 Request CALCIFIDIOL (54112) VIT D 25Indication: Vitamin D deficiency, unspecified On: 61-Cwp-607641:35 Request MICROALBUMIN: CREATININE RATIO (63672) AND ([id number])Indication: Diabetes mellitus type II, controlled On: 57-Pcb-639119:35 Request METABOLIC PANEL, COMPREHENSIVE ([id number])Indication: Diabetes mellitus type II, controlled On: 58-Iih-351208:35 Request LIPID PANEL ([id number])Indication: Diabetes mellitus type II, controlled On: 10-Dtg-880201:35 Request CBC WITH MANUAL DIFF ([id number])Indication: Diabetes mellitus type II, controlled On: 34-Nyi-446010:35 Request CAMERON CULTURE-OTHER ([id number])Indication: Cellulitis, umbilical On: 50-Qbw-435511:06 Request PARATHORMONE ([id number])Indication: Hypercalcemia On: 5-Yaz-788679:56 Request CALCIUM SERUM (83163)Indication: Hypercalcemia On: 1-Nbr-864689:56 Request Blood Glucose , Office (99510)Indication: Diabetes mellitus type II, controlled On: 7-Xfu-113391:26 Request Metabolic Panel, Basic ([id number])Indication: Swelling of limb On: 43-Jty-43911:39 Request Metabolic Panel, Basic ([id number])Indication: Diabetes mellitus type II, controlled On: 46-Ogn-469100:48 Request MICROALBUMIN: CREATININE RATIO ([id number]) AND (28143)Indication: Diabetes mellitus type II, controlled On: 88-Jbp-912608:48 Request CALCIFIDIOL (18508) VIT D 25Indication: Vitamin D deficiency, unspecified On: 09-Zjh-284100:46 Request CALCIFIDIOL (69274) VIT D 25Indication: Vitamin D deficiency, unspecified On: :42 Request MICROALBUMIN: CREATININE RATIO ([id number]) AND ([id number])Indication: Diabetes mellitus type II, controlled On: : Request METABOLIC PANEL, COMPREHENSIVE ([id number])Indication: Diabetes mellitus type II, controlled On: :42 Request LIPID PANEL ([id number])Indication: Diabetes mellitus type II, controlled On: : Request CBC WITH MANUAL DIFF ([id number])Indication: Diabetes mellitus type II, controlled On: : Request METABOLIC PANEL, COMPREHENSIVE ([id number])Indication: Hypercholesteremia On: :08 Request LIPID PANEL ([id number])Indication: Hypercholesteremia On: :08 Request CALCIFIDIOL (51076) VIT D 25Indication: Vitamin D deficiency, unspecified On: : Request Comments: in three months (approximately) CBC WITH MANUAL DIFF ([id number])Indication: Diabetes mellitus type II, controlled On: Request Comments: in three months (approximately) MICROALBUMIN: CREATININE RATIO ([id number]) AND (80120)Indication: Diabetes mellitus type II, controlled On: : Request METABOLIC PANEL, COMPREHENSIVE ([id number])Indication: Diabetes mellitus type II, controlled On: : Request LIPID PANEL ([id number])Indication: Diabetes mellitus type II, controlled On: : Request PT (Prothrobim Time) (94563)Indication: Deep vein thrombosis, unspecified laterality On: Request Comments: monday CBC (Auto) (23492)Indication: Deep vein thrombosis, unspecified laterality On: : Request Comments: monday PT (Prothrobim Time) ([id number])Indication: Deep vein thrombosis, unspecified laterality On: :32 Request Comments: standing order OVA & PARASITE DIR SMEAR ([id number])Indication: Diarrhea On: :34 Request OCCULT BLOOD FECES SCREEN (98003)Indication: Diarrhea On: :34 Request LEUKOCYTE COUNT, FECAL ([id number])Indication: Diarrhea On: :34 Request C-DIFFICILE, STOOL (59354)Indication: Diarrhea On: :34 Request CAMERON CULTURE-STOOL (88653)Indication: Diarrhea On: :34 Request CALCIFIDIOL (98011) VIT D 25Indication: Vitamin D deficiency, unspecified On: 92-Qul-442872:09 Request MICROALBUMIN: CREATININE RATIO (63371) AND ([id number])Indication: Diabetes mellitus type II, controlled On: :06 Request METABOLIC PANEL, COMPREHENSIVE (22791)Indication: Diabetes mellitus type II, controlled On: 98-Qzx-378103:06 Request LIPID PANEL ([id number])Indication: Diabetes mellitus type II, controlled On: : Request CBC WITH MANUAL DIFF ([id number])Indication: Diabetes mellitus type II, controlled On: 89-Hbq-089993:06 Request MICROALBUMIN: CREATININE RATIO (62660) AND (06980)Indication: Diabetes mellitus type II, controlled On: 9-Xch-847266:16 Request CALCIFIDIOL (10967) VIT D 25Indication: Vitamin D deficiency, unspecified On: 6-Ing-515063:16 Request METABOLIC PANEL, COMPREHENSIVE (37126)Indication: Diabetes mellitus type II, controlled On: 6-Wyk-308280:15 Request LIPID PANEL (53328)Indication: Hypercholesteremia On: 7-Csx-809613:15 Request TSH ([id number])Indication: Hypercholesteremia On: 67-Uzq-002582:58 Request Comments: hair thinning HEPATIC FUNCTION PANEL (73026)Indication: Hypercholesteremia On: 22-Yst-902425:58 Request LIPID PANEL (66897)Indication: Hypercholesteremia On: 85-Bgg-867670:58 Request HgA1C , Office (48581)Indication: Diabetes mellitus type II, controlled On: 32-Eht-176693:52 Request Methylmalonic acid, serum 87428Rszoglfnsj: Abnormal blood chemistry On: 72-Oqx-481371:26 Request CALCIFIDIOL (03629) VIT D 25Indication: Abnormal blood chemistry On: : Request Urine Protein Electrophoresis (UPEP) ([id number])Indication: Abnormal blood chemistry On: : Request Serum Protein Electrophoresis (SPEP) (72297)Indication: Abnormal blood chemistry On: : Request LIPID PANEL (52473)Indication: Diabetes mellitus type II, controlled On: : Request METABOLIC PANEL, COMPREHENSIVE (54922)Indication: Diabetes mellitus type II, controlled On: : Request CBC WITH MANUAL DIFF ([id number])Indication: Diabetes mellitus type II, controlled On: : Request Comments: in three months (approximately) MICROALBUMIN: CREATININE RATIO (75254) AND ([id number])Indication: Diabetes mellitus type II, controlled On: : Request Metabolic Panel, Comprehensive ([id number])Indication: Hypercholesteremia On: :45 Request Lipid Panel (36175)Indication: Hypercholesteremia On: 92-Lqq-381542:45 Request HEPATIC FUNCTION PANEL ([id number])Indication: Hypercholesteremia On: 75-Yyz-620591:12 Request Lipid Panel (28645)Indication: Hypercholesteremia On: 77-Off-178188:11 Request Comments: in three months (approximately) HgA1C , Office ([id number])Indication: Diabetes mellitus type II, controlled On: 99-Sza-446561:38 Request HEPATIC FUNCTION PANEL (60430)Indication: Hypercholesteremia On: :40 Request Lipid Panel (22130)Indication: Hypercholesteremia On: :40 Request MICROALBUMIN: CREATININE RATIO (29639) AND (33992)Indication: Diabetes mellitus type II, controlled On: :29 Request LIPID PANEL (19138)Indication: Diabetes mellitus type II, controlled On: :29 Request METABOLIC PANEL, COMPREHENSIVE ([id number])Indication: Diabetes mellitus type II, controlled On: :29 Request CBC WITH MANUAL DIFF ([id number])Indication: Diabetes mellitus type II, controlled On: 11-Jyj-148735:29 Request METABOLIC PANEL, COMPREHENSIVE (28240)Indication: Diabetes mellitus type II, controlled On: 25-Yxv-912215:19 Request MICROALBUMIN: CREATININE RATIO ([id number]) AND (58805)Indication: Diabetes mellitus type II, controlled On: 87-Lcw-452552:19 Request LIPID PANEL ([id number])Indication: Diabetes mellitus type II, controlled On: 47-Fei-567259:19 Request CBC WITH MANUAL DIFF ([id number])Indication: Diabetes mellitus type II, controlled On: 04-Bat-933942:19 Request FECAL OCCULT HGB ASSAY- tubes sent home ([id number])Indication: Well woman exam with routine gynecological exam On: 92-Ugu-683776:13 Request Thin prep Pap ([id number])Indication: Well woman exam with routine gynecological exam On: 15-Fwy-397040:13 Request URINE CAMERON CULTURE-HAIDER COL COUNT On: 95-Owx-893143:10 Request ([id number]) HEPATIC FUNCTION PANEL (13469)Indication: Hypercholesteremia On: 11-Sjq-386901:33 Request Comments: in six months LIPID PANEL ([id number])Indication: Hypercholesteremia On: 18-Vcc-856464:33 Request Planned Encounters Medical; General Medical - On: 21-May-2018 10:45 [facility] Lesly Chairez CNP, CNP, Mary E Planned Procedures DEXA SCAN AXIAL SKELETON (33271)By: On: 19-Mar-2018 Intent Lesly Chairez CNP, CNP, Mary E SCREENING DIGITAL TOMOSYNTHESIS OF On: 19-Mar-2018 Intent BREAST (06493)By: Lesly Chairez CNP, CNP, Mary E SCREENING DIGITAL TOMOSYNTHESIS OF On: 12-Feb-2018 Intent BREAST ([id number])By: Lesly Chairez CNP Comments: after Mar 09 2018 Lesly Chairez CNP DEXA SCAN AXIAL SKELETON ([id number])By: On: 12-Feb-2018 Intent Lesly Chairez CNP, CNP, Mary E Radiology - Hip - RightBy: Mihaela On: 12-Feb-2018 Intent Lesly RODRIGUEZ CNP, Mary E Flu Vaccine (Quadrivalent) 58566Pt: On: 12-Feb-2018 Intent Lesly Chairez CNP, CNP, Mary E Comments: Lot #[id number]-L dltd, IMDose prefilled syringegiven by: ELVIN ELIAS [...] Elgin Miller Comments: Vitamin b12 1000mcg injection lot:[id number]:10/2018R DELT IMpt tolerated well MSMITH,WINDING LATHE OPERATOR B 12 Injection, 1000 mcg (J3420)By: On: 17-Aug-2017 Intent Mihaela RODRIGUEZ FátimaCompa Chairez CNP Fátima Comments: vitamin b12 1000mcg injectionlot: [id number]: 10/2018L DELT IMpt tolerated wellAD WINDING LATHE OPERATOR B 12 Injection, 1000 mcg (J3420)By: On: 07-Aug-2017 Intent Visit, Nurse Comments: Lot #[id number]-10/2018Site- Left dtld, IMDose-prefilled syringegiven by:ELVIN Woo signed B 12 Injection, 1000 mcg (J3420)By: On: 02-Aug-2017 Intent Mihaela RODRIGUEZ FátimaCompa Chairez CNP Fátima Flu Vaccine (Quadrivalent) 13554De: On: 13-Mar-2017 Intent Mihaela RODRIGUEZ FátimaCompa Chairez CNP Fátima Comments: InfluenzaLot #[id number]/18Site-L dltd, IMDose prefilled syringeVIS and ABN signedgiven by:DAVID de paz MAMMOGRAM BREAST BILATERAL On: 27-Feb-2017 Intent SCREENING DIGITAL (86194)By: Lesly Chairez CNP, CNP, Mary E MRI OF LUMBAR SPINE WITH AND On: 28-Nov-2016 Intent WITHOUT CONTRAST ([id number])By: CiLesly augustine CNP, CNP, Mary E Radiology - Lumbar SpineBy: Ciesa On: 19-Sep-2016 Intent Lesly RODRIGUEZ CNP, Mary E Radiology - Humerus - RightBy: On: 08-Apr-2016 Intent Lesly Chairez CNP, CNP, Mary E Solu -Medrol Injection, 125 mg On: 08-Apr-2016 Intent (J2930)By: Lesly Chairez CNP, CNP, Mary E Solu- Medrol Injection, 125mg On: 24-Mar-2016 Intent (J2930)By: Wendy June DO Comments: Lot:[id number]:10/2018Dose:125mgRoute:imSite:r hipGiven By:Gaurang signed Flu Vaccine (Quadrivalent) 27388Gr: On: 29-Feb-2016 Intent Visit, Nurse Comments: Lot #[id number]/30/17ite-L dltd, IMDose prefilled syringegiven by:ELVIN Woo and ABN signed BILATERAL MAMMOGRAMS (08701)By: On: 15-Feb-2016 Intent Lesly Chairez CNP, CNP, Mary E Kenalog Injection, 10 mgm On: 18-Jan-2016 Intent (J3301)By: Mihaela RODRIGUEZ Lesly Chairez CNP Lesly Chatman DRAIN/INJECT SMALL JOINT OR BURSA On: 18-Jan-2016 Intent ([id number])By: Ryanmichael RODRIGUEZLesly CNP, Mary E Radiology - Lumbar SpineBy: Ciesa On: 07-Sep-2015 Intent Lesly RODRIGUEZ CNP, Mary E Toradol Injection, 30 mg On: 07-Sep-2015 Intent (J1885)By: Mihaela RODRIGUEZ Lesly Chairez Comments: Lot:[id number]:08/03/16Dose:30mgRoute:imSite:r hipGiven By:JUNG signed Lesly RODRIGUEZ MRI - Shoulder(s) - RightBy: Ciesa On: 03-Aug-2015 Intent Lesly RODRIGUEZ CNP, Mary E Radiology - Shoulder - RightBy: On: 03-Aug-2015 Intent Nellypopmichael Lesly RODRIGUEZ CNP, Mary E ADMINISTRATION OF INFLUENZA VIRUS On: 02-Mar-2015 Intent VACCINE (G0008)By: Akosua Enrique MD Flu Vaccine (Quadrivalent) 96512Hc: On: 02-Mar-2015 Intent Akosua Enrique MD Comments: Lot #:[id number] date:Amount given:0.5mlRoute: IMSite given:L DltdGiven by: jkmVIS and ABN signed Quad Flu Wax CurettesBy: Akosua Enrique MD On: 27-Nov-2014 Intent Ear Irrigation (51445)By: Elana On: 27-Nov-2014 Intent Akosua BAUTISTA MAMMOGRAM, SCREENING, BOTH BREAST On: 27-Nov-2014 Intent (59266)By: Akosua Enrique MD Prevnar 13 (85845)By: Maryam HERNANDEZ, On: 28-Apr-2014 Intent Maria T Comments: [id number] arm, IMAS ADMINISTRATION OF INFLUENZA VIRUS On: 31-Mar-2014 Intent VACCINE (G0008)By: Akosua Enrique MD Comments: [id number] syringeL Dltd, IMAS, LPNABN and VIS signed M FLU VAC, SPLIT, >3 YEARS, INTRAMUSC On: 31-Mar-2014 Intent (32737)By: Maria T Francisco LPN BILATERAL MAMMOGRAMS (81376)By: On: 06-Feb-2014 Intent Akosua Enrique MD MAMMOGRAM, SCREENING, BOTH BREAST On: 23-Dec-2013 Intent (94933)By: Akosua Enrique MD Eprescribed prescriptions On: 29-Apr-2013 Intent (G8553)By: Akosua Enrique MD Eprescribed prescriptions On: 08-Apr-2013 Intent (G8553)By: Akosua Enrique MD DXA, BONE DENSITY, AXIAL SKELETON On: 08-Apr-2013 Intent (32587)By: Akosua Enrique MD Comments: postmenapausal FLU VAC, SPLIT, >3 YEARS, INTRAMUSC On: 08-Mar-2013 Intent (81852)By: Wendy June DO Comments: Lot:[id number]:6.14Amt:0.5mlRoute:IMSite: L DltdGiven By: ELVIN Booker signed ADMINISTRATION OF INFLUENZA VIRUS On: 08-Mar-2013 Intent VACCINE (G0008)By: Wendy June DO Rocephon Injection, 2 Gm On: 28-Feb-2013 Intent (J0696)By: Wendy June DO Comments: im lt and rt hip 2.5 ml each [id number] exp 09/04/15 Eprescribed prescriptions On: 07-Feb-2013 Intent (G8553)By: Randa Aldana LPN Eprescribed prescriptions On: 24-Dec-2012 Intent (G8553)By: Lesly Chairez CNP, CNP, Fátima MAMMOGRAM, SCREENING, BOTH BREASTS On: 08-Oct-2012 Intent (40016)By: Akosua Enrique MD Eprescribed prescriptions On: 08-Oct-2012 [...] SPLIT, >3 YEARS, INTRAMUSC On: 20-Feb-2012 Intent (32146)By: Myrna Townsend Comments: Lot:[id number]:6.30.13Dose:prefilledRoute:IMSite:L DltdGiven By:JRAN signed ADMINISTRATION OF INFLUENZA VIRUS On: 20-Feb-2012 Intent VACCINE (G0008)By: Myrna Townsend ADMINISTRATION OF INFLUENZA VIRUS On: 20-Feb-2012 Intent VACCINE (G0008)By: MATT Maloney FLU VAC, SPLIT, >3 YEARS, INTRAMUSC On: 20-Feb-2012 Intent (64590)By: MATT Maloney MAMMOGRAM, SCREENING, BOTH BREASTS On: 24-Jan-2012 Intent (47394)By: Akosua Enrique MD Ultrasound - AortaBy: Elana BAUTISTA, On: 14-Nov-2011 Intent Akosua Lackey Kenalog Injection, 10 mgm On: 24-Oct-2011 Intent (J3301)By: Akosua Enrique MD Kenalog Injection, 10 mgm On: 24-Oct-2011 Intent (J3301)By: Akosua Enrique MD Kenalog Injection, 10 mgm On: 24-Oct-2011 Intent (J3301)By: Akosua Enrique MD Kenalog Injection, 10 mgm On: 24-Oct-2011 Intent (J3301)By: Akosua Enrique MD EKG (12134)By: Akosua Enrique MD On: 08-Aug-2011 Intent Eprescribed prescriptions On: 08-Aug-2011 Intent (G8553)By: Akosua Enrique MD INFUSION, NORMAL SALINE SOLUTION , On: 05-Jul-2011 Intent 250 CC (J7050)By: Mihaela RODRIGUEZ, Lesly Chairez CNP, Fátima FLU VAC, SPLIT, >3 YEARS, INTRAMUSC On: 02-May-2011 Intent (22452)By: Akosua Enrique MD Comments: had done ADMINISTRATION OF INFLUENZA VIRUS On: 28-Feb-2011 Intent VACCINE (G0008)By: Akosua Enrique MD FLU VAC, SPLIT, >3 YEARS, INTRAMUSC On: 28-Feb-2011 Intent (23723)By: Akosua Enrique MD Eprescribed prescriptions On: 28-Feb-2011 Intent (G8553)By: Akosua Enrique MD Venous Doppler - RightBy: Elana On: 31-Jan-2011 Intent Akosua BAUTISTA Comments: lower leg. wet read Kenalog Injection, 10 mgm On: 18-Jan-2011 Intent (J3301)By: Akosau Enrique MD Comments: x4 Radiology - Lumbar SpineBy: Elaan On: 06-Jan-2011 Intent Akosua BAUTISTA Radiology - Knee - RightBy: Elana On: 06-Jan-2011 Intent Akosua BAUTISTA Radiology - Knee - LeftBy: Elana On: 06-Jan-2011 Intent Akosua BAUTISTA Radiology - Small Bowel Series On: 06-Jan-2011 Intent (14010)By: Akosua Enrique MD EKG (98150)By: Akosua Enrique MD On: 28-Jun-2010 Intent MAMMOGRAM, SCREENING, BOTH BREASTS On: 28-Jun-2010 Intent (94541)By: Akosua Enrique MD FLU VAC, SPLIT, >3 YEARS, INTRAMUSC On: 29-Mar-2010 Intent (62583)By: Ana Candelario Comments: Lot:[id number]:09/2010Dose:0.5mlRoute:IMSite:Left Deltoid Given by: WALESKA Valerio ADMINISTRATION OF INFLUENZA VIRUS On: 29-Mar-2010 Intent VACCINE (G0008)By: Ana Candelario EKG (44847)By: Akosua Enrique MD On: 24-Apr-2009 Intent IMMUNIZ ADMNIN, 1 VAC, SNGL/COMBO On: 11-Mar-2009 Intent (80197)By: Ladonna Briggs RN FLU VAC, SPLIT, >3 YEARS, INTRAMUSC On: 11-Mar-2009 Intent (17206)By: Ladonna Briggs RN Breast Diagnostic - RightBy: On: 23-Dec-2008 Intent Akosua Enrqiue MD Breast Screening - LeftBy: Elana On: 23-Dec-2008 Intent Akosua BAUTISTA Breast Diagnostic - RightBy: On: 15-Jul-2008 Intent Akosua Enrique MD Comments: 11-11 FLU VAC, SPLIT, >3 YEARS, INTRAMUSC On: 25-Mar-2008 Intent (16779)By: Alexa Metz ADMINISTRATION OF INFLUENZA VIRUS On: 25-Mar-2008 Intent VACCINE (G0008)By: Alexa Metz EKG (24247)By: Akosua Enrique MD On: 04-Mar-2008 Intent MAMMOGRAM, SCREENING, BOTH BREASTS On: 04-Mar-2008 Intent (63632)By: Akosua Enrique MD Venous Doppler - BothBy: Elana On: 14-Aug-2007 Intent Akosua BAUTISTA Comments: lower legs EKG (36634)By: Akosau Enrique MD On: 15-Feb-2007 Intent Bone Density StudyBy: Jovan, On: 28-Dec-2006 Intent Randa MAMMOGRAM, SCREENING, BOTH BREASTS On: 28-Dec-2006 Intent (24265)By: Akosua Enrique MD SPECIMEN HANDLING/TRANSPORT On: 29-Sep-2006 Intent (70034)By: Akosua Enrique MD FLU VAC, SPLIT, >3 YEARS, INTRAMUSC On: 04-Apr-2006 Intent (01045)By: Alexa Joseph ADMINISTRATION OF INFLUENZA VIRUS On: 04-Apr-2006 Intent VACCINE (G0008)By: Alexa Joseph FLU VAC, SPLIT, >3 YEARS, INTRAMUSC On: 28-Mar-2006 Intent (26247)By: Akosua Enrique MD Planned Medications INFUSION, NORMAL SALINE SOLUTION , 250 CC Ordered: 05-Jul-2011 Pending Ciesa PHY THERAPIST, Fátima Ciesa PHY THERAPIST, Fátima INJECTION, CEFTRIAXONE SODIUM, PER 250 MG Ordered: 28-Feb-2013 Pending Shaylee DO, Wendy INJECTION, KETOROLAC TROMETHAMINE, PER 15 MG Ordered: 07-Sep-2015 Pending Ciesa PHY THERAPIST, Fátima Ciesa PHY THERAPIST, Fátima INJECTION, METHYLPREDNISOLONE SODIUM SUCCINATE, UP TO 125 MG Ordered: 08-Apr-2016 Pending Ciesa PHY THERAPIST, Fátima Ciesa PHY THERAPIST, Fátima INJECTION, METHYLPREDNISOLONE SODIUM SUCCINATE, UP TO 125 MG Ordered: 24-Mar-2016 Pending Shaylee DO, Wendy INJECTION, TRIAMCINOLONE ACETONIDE, NOT OTHERWISE SPECIFIED, 10 MG Ordered: 18-Jan-2011 Pending Akosua Enrique MD INJECTION, TRIAMCINOLONE ACETONIDE, NOT OTHERWISE SPECIFIED, 10 MG Ordered: 18-Jan-2016 Pending Ciesa PHY THERAPIST, Fátima Ciesa PHY THERAPIST, Fátima INJECTION, TRIAMCINOLONE ACETONIDE, NOT OTHERWISE SPECIFIED, [...] thrombosis) : DISCONTINUED - PT (PROTHROMBIN TIME) (09938) Indication: History of DVT (deep vein thrombosis) 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 The patient huang s noticed lack of energy and thinking most people are better off than them. Other providers contributing to the patient's care are [facility] (dr. martinez) and machine striper (dr. roper). 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 The patient has noticed lack of energy. Other providers contributing to the patient's care are gastrologist (Dr. Oates ) and other: (Opthalm: Dr. Hebert ).Encounter Diagnosis: Encounter for Medicare annual wellness exam, Venous (peripheral) insufficiency, BMI 33.0-33.9,adult, Diabetes mellitus type II, controlled, Degenerative disc disease, Coronary artery disease, care home current use of 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 therapy, Encounter for [...] Woman Exam , Medicare (V76.2) (Renamed from [facility] Exam , Medicare (V76.2, V72.31)), arthritis,unspecified (716.90), [...] providers contributing to the patient's care are [facility] (Dr. Martinez) and other: (Glaucoma screens by [...] Woman Exam , Medicare (V76.2) (Renamed from [employer] Woman Exam , Medicare (V76.2, V72.31)), Lymphedema [...] patient does not have durable power of commonwealth attorney o r living will. The patient has noticed lack of energy. Other providers contributing to the patient's care are machine striper.Encounter Diagnosis: Annual Medicare Physical (V70.0), Itching (698.9) [...] Woman Exam , Medicare (V76.2) (Renamed from [employer] Woman Exam , Medicare (V76.2, V72.31)), GLAUCOMA [...] Nutrition: balanced diet and supplemental vitamins. The il dical issues the patient is following up for include blood sugar issues, cardiac issues, gastric reflux, high blood pressure, high cholesterol and other (chronic dermatitis, DDD, IBS, venous insuff., vitamin d def., glaucoma, hx. DVT, obesity ). Encounter Diagnosis: Diabetes, Type II, controlled (250.00), Vitamin D deficiency, unspecified (268.9), Well Woman Exam , Medicare (V76.2) (Renamed from [employer] Woman Exam , Medicare (V76.2, V72.31)), Irritable [...] Nutrition: balanced diet and supplemental vitamins. The il dical issues the patient is following up [...] Swelling of limb (729.81), Sleep disorder (780.50), [facility] Comprehensive Internal Medicine Office Visit On: [...] itching. Note for Rash: was [facility] and noticed back itchingEncounter Diagnosis: Rash [...]
--- OUTSIDE RECORDS SUMMARY | 2018-06-12 22:41 | XMS RPT_ITS | Continuity of Care Document ---
:1940 Author Organization [facility] Address [facility] [address] [place] [address] Phone Care Team Providers Name Role Phone Lesly Chairez CNP Unavailable [facility], [facility] Unavailable Edin BAUTISTA, Balwinder Tam Unavailable Matt Phelps Unavailable Elana BAUTISTA, Akosua Lackey Unavailable Dr. Prashant Hoffman Unavailable Healing Center, Wound Unavailable Liyah Diane Unavailable Dr. Shayla Goodman Unavailable Dr. Jonathan Oates Unavailable Eufemia Lemos Unavailable Unavailable Slarb MANAGER GAS, Maria T Unavailable Unavailable Long MANAGER GAS, Dima L Unavailable Unavailable Unavailable Unavailable Problems [...] BMI 31.0-31.9,adult (Z68.31, V85.31) Status: Active BMI 32.0-32.9,adult (Z68.32, V85.32) Status: Active Breast screening (Z12.39, V76.10) Status: Active Cat scratch of lower leg, unspecified laterality, sequela (S80.819S, 906.2) Status: Active Cellulitis (L03.90, 682.9) Comments: worsening Status: Active Chronic stasis dermatitis (I87.2, 454.1) [...] vaseline and helping got cushion, using gold b ond healing cream Using xerofoam per wound care Status: Active Degeneration of intervertebral disc of [...] (Z91.030, V15.06) Status: Active Hypercholesteremia (E78.00, 272.0) Status: Active Hypercholesteremia (E78.00, 272.0) Comments: on pravachol labs stable Status: Active Hypertension, benign (I10, 401.1) Comments: on avapro and stable and diuretic prn with k prn Status: Active Irritable bowel syndrome (K58.9, 564.1) Status: Active 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 Status: Active Postmenopausal (Renamed from Postmenopausal status) (Z78.0, V49.81) Status: Active Pregnancies () Comments: 3 Status: Active Skin tear of lower leg without complication, left, initial encounter (S81.812A, 891.0) Comments: with cat scratch lower extremity Status: Active Sleep disorder (G47.9, 780.50) Comments: stable Status: Active Superficial thrombophlebitis (I80.9, 451.9) Comments: seeing LUCIA Brothers cannot take Status: Active Tenosynovitis, de Quervain [...] now 22 will increase to D3 to 5000 daily Status: Active Weight loss (R63.4, 783.21) Comments: unintentional Status: Active Medications Name Dates Details Avapro 75 MG Oral Tablet 1 (one) Tablet QD for 0 days Quantity: 30 {Tablet} Refills: 6 Ordered:01-Sep-2017 Mihaela RODRIGUEZ, Lesly Nelson CNP, Lesly Chatman Start : 01-Sep-2017 Active Cyanocobalamin 2500 MCG Sublingual Tablet Sublingual 1 (one) Microgram Microgram daily sublingual for 0 days Quantity: 30 {Milligram} Refills: 3 Ordered:02-Aug-2017 Long MANAGER GASDima Scott L Start : 02-Aug-2017 Active Demadex 20 MG Oral Tablet 1 (one) Tablet qd prn for 0 days Quantity: 30 {Tablet} Refills: 3 Ordered:25-Jan-2018 Wendy June DO Start : 25-Jan-2018 Active DIABETIC TESTING SUPPLIES ( Strip) (Free Text) uad Strip up to QID for 0 days Quantity: 2 {Box} Refills: 6 Ordered:02-Jun-2014 Akosua Enrique MD Start : 02-Jun-2014 Active Comments:True Test Strips DX: 250.00NPI: [id number] Horse Olla 300 MG Oral Capsule 1 qd (300 MG) Active Comments:per derm HydrOXYzine HCl 25 MG Oral Tablet 1 (one) Tablet bid prn for 10 days Quantity: 30 {Tablet} Refills: 1 Ordered:16-Apr-2018 Mihaela RODRIGUEZ, Lesly Nelson CNP, Lesly Chatman Start : 16-Apr-2018 Active MECLIZINE HCL, 25MG (Oral Tablet) 1 Tablet tid/prn for 0 days Quantity: 30 {Tablet} Refills: 0 Ordered:29-Sep-2015 Mihaela RODRIGUEZ, Lesly Nelson CNP, Lesly Chatman Start : 29-Sep-2015 Active Pentoxifylline ER 400 MG Oral Tablet Extended Release 1 (one) Tablet ER tid for 0 days Quantity: 90 {Tablet} Refills: 6 Ordered:27-Mar-2017 Mihaela RODRIGUEZ, Lesly Nelson CNP, Lesly Chatman Start : 27-Mar-2017 Active PEPCID, 20MG (Oral Tablet) 1 Tablet bid for 0 days Quantity: 60 {Tablet} Refills: 0 Ordered:19-Oct-2015 Akosua Enrique MD Start : 19-Oct-2015 Active Potassium Chloride ER 10 MEQ Oral Capsule Extended Release 1 Capsule ER qd prn when on water pill for 30 days Quantity: 30 {Capsule} Refills: 2 Ordered:29-Jan-2018 Ciesa EXTERNAL GRINDER TENDER, Lesly Fleming CNP Start : 29-Jan-2018 Active Pravachol 80 MG Oral Tablet 1 (one) Tablet qod for 0 days Quantity: 15 {Tablet} Refills: 6 Ordered:12-Feb-2018 Mihaela RODRIGUEZ, Lesly Fleming CNP Start : 12-Feb-2018 Active Sucralfate 1 GM Oral Tablet 1 (one) Tablet qid prn for 0 days Quantity: 120 {Tablet} Refills: 3 Ordered:06-Nov-2017 Mihaela RODRIGUEZ, Lesly Fleming CNP Start : 06-Nov-2017 Active Vitamin D3 Super Strength 2000 UNIT Oral Capsule 2 (two) Capsule Capsule daily for 0 days Quantity: 60 {Capsule} Refills: 0 Ordered:06-Nov-2017 Long MANAGER GASDima L Start : 02-Aug-2017 Active Vitamin D3 Ultra Potency 42868 UNIT Oral Tablet 1 (one) Tablet daily for 0 days Quantity: 30 {Tablet} Refills: 0 Ordered:21-May-2018 Mihaela RODRIGUEZ, Lesly Fleming CNP Start : 21-May-2018 Active ACTOS, 45MG (Oral Tablet) 1/2 Tablet QD for 0 days Quantity: 30 {Tablet} Refills: 6 Ordered:15-Feb-2007 MATT Maloney Start : 15-Feb-2007 End : 15-Jul-2008 Inactive Amoxicillin 500 MG Oral Capsule 1 (one) Capsule tid for 7 days Quantity: 15 {Capsule} Refills: 0 Ordered:18-Apr-2018 Mihaela RODRIGUEZ, Lesly Fleming CNP Start : 18-Apr-2018 End : 25-Apr-2018 Inactive ASPIRIN, 81MG (Oral Tablet) 1 qd [...] days Quantity: 50 {Roney} Refills: 0 Ordered:31-Jul-2017 Mihaela RODRIGUEZ, Lesly Nelson CNP, Lesly Chatman Start : 31-Jul-2017 End : 10-Aug-2017 Inactive [...] 3 {Tablet} Refills: 0 Ordered:27-Apr-2009 Randa Aldana LPN Start : 27-Apr-2009 End : 25-May-2009 Inactive [...] days Quantity: 30 {Tablet} Refills: 6 Ordered:06-Nov-2017 Lesly Chairez CNP, CNP, Fátima Start : 31-Jul-2017 End : 06-Nov-2017 Inactive HYDROCORTISONE, 2.5% (External Cream) uad to affected areas prn for 0 days Refills: 0 Ordered:10-May-2010 MTAT Maloney End : 10-May-2010 Inactive HYDROCORTISONE, 2.5% [...] days Quantity: 40 {Capsule} Refills: 0 Ordered:01-Mar-2013 Shaylee LONG Wendy Start : 01-Mar-2013 End : 11-Mar-2013 Inactive [...] {Capsule} Refills: 0 Ordered:31-Aug-2015 Mihaela RODRIGUEZ, Lesly Nelson CNP, Fátima Start : 31-Aug-2015 End : 07-Sep-2015 [...] : 12-Nov-2010 End : 20-Feb-2012 Inactive Nystatin 573262 UNIT/GM External Powder uad Powder bid to affected area(s) prn for 30 days Quantity: 1 {Packet} Refills: 3 Ordered:31-Jul-2017 Slarb DAVID Maria T Start : 20-Feb-2017 End : 31-Jul-2017 Inactive PANTOPRAZOLE SODIUM, 40MG (Oral Tablet Delayed Release) 1 (one) Tablet DR qd (40 MG) Start : 22-Sep-2015 End : 19-Oct-2015 Inactive Comments:adverse reaction PredniSONE 10 MG Oral Tablet 3 (three) Tablet daily for 7 days Quantity: 21 {Tablet} Refills: 0 Ordered:13-Mar-2017 Mihaela RODRIGUEZ, Lesly Nelson CNP, Lesly Chatman Start : 13-Mar-2017 End : 20-Mar-2017 Inactive [...] Quantity: 30 {Tablet} Refills: 0 Ordered:13-Mar-2017 Slarb Shawn HERNANDEZa Start : 15-Aug-2016 End : 13-Mar-2017 Inactive WARFARIN SODIUM, 1MG (Oral Tablet) 3 1/2 Tablet qd as directed for 0 days Quantity: 100 {Tablet} Refills: 3 Ordered:22-Sep-2015 MATT Maloney Start : 31-Aug-2015 End : 22-Sep-2015 Inactive ZITHROMAX Z-KUMAR, 250MG (Oral Tablet) 1 Tablet TAD for 0 days Quantity: 1 {Package(s)} Refills: 0 Ordered:21-May-2012 MATT Maloney Start : 19-Mar-2012 End : 21-May-2012 Inactive ZOSTAVAX, 63442ZAF/0.65ML (Subcutaneous Solution Reconstituted) 1 For Solution once SC for 0 days Quantity: 1 {For_Solution} Refills: 0 Ordered:29-Apr-2013 MATT Maloney Start : 08-Apr-2013 End : 29-Apr-2013 Inactive Amoxicillin-Pot Clavulanate 875-125 MG Oral Tablet 1 (one) Tablet bid for 0 days Quantity: 20 {Tablet} Refills: 0 Ordered:21-May-2018 Eufemia Lemos Start : 25-Apr-2018 End : 21-May-2018 Discontinued Cefadroxil 500 MG Oral Capsule 1 (one) Capsule bid for 7 days Quantity: 14 {Capsule} Refills: 0 Ordered:12-Jan-2017 Wendy June DO Start : 12-Jan-2017 End : 12-Jan-2017 Discontinued ERGOCALCIFEROL, 76285CUAD (Oral Capsule) 1 Capsule every 2 months [...] ventilator, and rec. multpile units PRBC's @ [facility] 09-18 Status: Inactive as of 13-Mar-2017 BMI 29.0-29.9,adult (Z68.29, V85.25) Status: Inactive as of 06-Nov-2017 BMI 29.0-29.9,adult (Z68.29, V85.25) Status: Resolved as of 31-Jul-2017 BMI 30.0-30.9,adult (Z68.30, V85.30) Status: Inactive as of 13-Mar-2017 BMI 33.0-33.9,adult (Z68.33, V85.33) Comments: much better than was pt staying here at this weight Status: Inactive as of 09-Jan-2017 Bronchitis (J40, 490) Status: Inactive as of 14-Jun-2012 Cellulitis and abscess of leg (L03.119, 682.6) [...] 18-Jun-2015 Unspecified Diagnosis Status: Inactive as of 29-Apr-2013 Unspecified Diagnosis Status: Inactive as of 14-Jan-2013 Vertigo (R42, 780.4) Comments: inner parox years--antivert [...] Ligation Completed Comments: 1979 Date Value Details 18-May-2018 Wound Ctr History AND Physical Result: Comments: See Note; NOTES: [facility] [address] [place] [address] Wound Ctr History AND Physical 05/18/18 1245 MR#: [id number] Acct: [id number] Name: BRISSA WHITE Rep #: [id number] : 1940 77 From: Racquel OCHOA PCP: Lesly Chairez NP Status: REG RCR Y Location: (1) Diabetes Status: Chronic Current Visit: No Qualifiers: Diabetes melli tus type: type 2 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 insulin use: without senior living use Diabetes mellitus complication status: without complication Qualified Code(s): E11.9 - Type 2 diabetes mellitus without co mplications Code(s): E11.9 - Type 2 diabetes mellitus without complications (2) Failure to thrive Status: Chronic Current Visit: Yes Code(s): [id number] - (3) GERD (gastroesophageal reflux disease) Statu s: Chronic Current Visit: Yes Code(s): K21.9 - Gastro-esophageal reflux disease without esophagitis (4) Decubitus ulcer of left buttock, stage 2 Status: Acute Current Visit: Yes Code(s): L89.322 - Pres sure ulcer of left buttock, stage 2 History of Present Illness Chief Complaint: Here for nurse visit but is complaining about burning and pain in her left buttocks ulcer History of Wound: This is a 77 -year-old white female that has history of those buttocks ulcer approximately 2 years ago and closed it on her own with bag balm has recurrent opening that is been trying to take care of her to self wit h [id number] zinc oxide. Patient complains of increased pain and burning and unable to take it anymore. She has a small opening on her left buttocks cheek that is tender to palpate erythematous ar ound the edges has a crusted yellow slough across it. 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) Positional vertigo (Chronic) Obesity (Chronic) Hx of venous thrombosis and embolism (Chronic) history of cellulitis of leg (Chronic) Leg swelling (Chronic) Hyperpigmentation of skin (Chronic) Lipodermatosclerosis (Chronic) 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) Localized edema (Chronic) 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 The patient underwent excision of a right hip lipo ma in the past. Patient is a Ab0. Allergies/Adverse Reactions: Allergies atorvastatin calcium [From Lipitor] Allergy (Verified 09/21/17 11:28) Unknown ezetimibe [From Zetia] Allergy (Verified 11:28) Unknown lisinopril Allergy (Verified 09/21/17 11:28) Unknown neomycin [Neomycin] Allergy (Verified 09/21/17 11:28) Unknown neomycin sulfate [From Neosporin ([id number])] Allergy (Verifie d 09/21/17 11:28) Itching polymyxin B [Polymyxin B] Allergy (Verified 09/21/17 11:28) Unknown Sulfa (Sulfonamide Antibiotics) Allergy (Verified 09/21/17 11:28) Unknown tetracycline [Tetracycline] Allerg y (Verified 09/21/17 11:28) Itching adhesive tape Adverse Reaction (Severe, Verified 09/21/17 11:28) Unknown Home Medications: Ambulatory Orders Medication Instructions Recorded Cholecalciferol (Lizbet min D3) 2,000 unit PO DAILY 01/15/17 [Vitamin D3] Famotidine [Pepcid] 20 mg PO BID 01/15/17 Irbesartan [Avapro] 75 mg PO DAILY 01/15/17 - Family History Maternal Family History: Family History (La st Reviewed 09/21/17 @ 11:30 by Lila Costa) Mother CAD (coronary artery disease) Myocardial infarction Son Hypertension Brother Aortic aneurysm No pertinent history, - - Patient's father at age o f 74 with a history of diabetes mellitus. The patient's mother at age of 59 with a myocardial infarction. Paternal Family History: Family History (Last Reviewed 09/21/17 @ 11:30 by Lila Costa) Mother CAD (coronary artery disease) Myocardial infarction Son Hypertension Brother Aortic aneurysm No pertinent history Smoking Status: Former smoker Tobacco Use: Non-smoker Review of Systems Consti tutional: Denies: Chills, Fever Eyes: Denies: Blurred vision, Drainage, Pain HEENT: Denies: Difficulty Hearing, Difficulty Swallowing, Sore Throat, Visual Changes Cardiovascular: Denies: Chest Pain, Pal pitations, Syncope Respiratory: Denies: Cough, Shortness of Breath Gastrointestinal: Denies: Abdominal Pain, Nausea, Vomiting Genitourinary: Denies: Dysuria, Frequency Musculoskeletal: Denies: Joint Joni n, Muscle pain Skin: Denies: Jaundice, Rash Neurological: Denies: Balance problems, Change in Speech, Difficulty swallowing, Focal weakness Psychiatric: Denies: Anxiety, Depression Endocrine: Denies: Ch brittney in Body Habitus Hematologic/ Lymphatic: Denies: Adenopathy - Physical Exam Vital Signs Temp Pulse Resp BP 99.3 F H 89 16 154/72 H 05/18/18 11:46 05/18/18 11:46 05/18/18 11:46 05/18/18 11:46 Gen eral: Oriented x3, Cooperative, Well developed HEENT: Atraumatic, PERRLA Oral: Moist Mucosa Neck: Supple, No JVD Lungs: Clear to auscultation, Normal air movement Cardiovascular: Regular rate, Regular R hythm Abdomen: Bowel Sounds Present, Soft, Non Tender, No Hepato-splenomegaly Extremities: No clubbing, No edema Skin: Ulcer/ Wound - Decubitus ulcer left buttocks stage II Wound Measurements and Assess ment WC - Nurse 1 - General Ulcer Measurement Start: 12/04/18 09:50 Freq: Status: Active Protocol: Activity Type Activity Date Activity User E-Sign Co-Sign Detail Wound Center Nurse 1 [Ulcer Assessmen t] WC - Nurse 2 - General Ulcer CM Notes Start: 05/08/18 09:50 Freq: Status: Active Protocol: Activity Type Activity Date Activity User E-Sign Co-Sign Detail Recorded Client Recorded Date Recorded By Quang lopez 05/18/18 12:21 MW [id number] 05/18/18 12:25 MW Wound Center Nurse 2 Musculoskeletal: No Tenderness to Palpation of Joints or Extremities Lymphatic: No Cervical, Supraclavicular, or Inguinal Nic opathy Neurological: Cranial nerves II-XII grossly intact, Neuro grossly intact Psych/Mental Status: Normal Affect, Appropriate Debridement Note Post- Debridement Measurements/Treatment WC - Nurse 2 - General Ulcer CM Notes Start: 05/08/18 09:50 Freq: Status: Active Protocol: Activity Type Activity Date Activity User E-Sign Co-Sign Detail Wound debrided: Decubitus buttocks Laterality: Left Wound Grade/Stage: Stage II Type of Debridement: Excisional debridement Anesthesia Used: 5% Lidocaine Gel Depth: Down to and including healthy tissue, in the subcutaneous layer Percentage of wound debrided: 1 00 Instrument Used: 5mm curette Tissue Removed: Fibrin and slough Severity: Limited To Skin Breakdown Amount of bleeding with debridement: Mild Bleeding Controlled with: Compression and gauze Patient to lerated procedure well Assessment/Plan Active Problems (Last Updated 09/21/17 @ 11:42 by ARCHANA Ontiveros) GERD (gastroesophageal reflux disease) (Chronic) Edema of both legs (Chronic) Venous stasis ulcer (Chronic) Decubitus ulcer of left buttock, stage 2 (Acute) Failure to thrive (Chronic) history of cellulitis of leg (Chronic) Leg swelling (Chronic) Hyperpigmentation of skin (Chronic) Lipo dermatosclerosis (Chronic) 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 Failure to thrive. Diabetes controlled Plan: Xeroform gauze and tape to buttocks once or twice a day. Follow-up in [address] Brothers 05/18/18 1251 <Electronically signed by Racquel OCHOA&am p;#62; Date Racquel Teran CC: Signed 08-May-2018 Wound Ctr History AND Physical Result: Comments: See Note; NOTES: [facility] [address] [place] [address] Wound Ctr History AND Physical 05/08/18 1014 MR#: [id number] Acct: [id number] Name: BRISSA WHITE Rep #: [id number] : 1940 77 From: Bao Brothers MD PCP: Lesly Chairez NP Status: REG RCR Y Location: (1) GERD (gastroesophageal reflux disease) Status: Chronic Current Visit: No Code(s): K21.9 - Gastro-esophageal reflux disease without esophagitis (2) Osteoarthritis Status: Chronic Current Visit: No Code(s): M19.90 - Unspecified osteoarthritis, unspecified site (3) Edema of b oth legs Status: Chronic Current Visit: Yes Code(s): R60.0 - Localized edema (4) Hiatal hernia Status: Chronic Current Visit: No Code(s): K44.9 - Diaphragmatic hernia without obstruction or gangrene ( 5) Venous stasis ulcer Status: Chronic Current Visit: Yes Qualifiers: Venous stasis ulcer site: calf Varicose vein presence: with varicose veins Laterality: left Non-pressure ulcer stage: with fat layer exposed Qualified Code(s): I83.022 - Varicose veins of left lower extremity with ulcer of calf; L97.222 - Non-pressure chronic ulcer of left calf with fat layer exposed Code(s): I83.009 - Varicose vein s of unspecified lower extremity with ulcer of unspecified site; L97.909 - Non- pressure chronic ulcer of unspecified part of unspecified lower leg with unspecified severity (6) cataract surgery Status: Resolved Current Visit: No (7) Abnormal exercise myocardial perfusion study Status: Chronic Current Visit: No Code(s): R94.39 - Abnormal result of other cardiovascular function study (8) Palpitations Status: Chronic Current Visit: No Code(s): R00.2 - Palpitations (9) Heel spur Status: Resolved Current Visit: No Code(s): M77.30 - Calcaneal spur, unspecified foot Comment: right heel spur removed (1 0) H/O dilation and curettage Status: Resolved Current Visit: No Code(s): Z98.890 - Other specified postprocedural states (11) H/O tubal ligation Status: Resolved Current Visit: No Code(s): Z98.51 - T ubal ligation status (12) Lipoma Status: Resolved Current Visit: No Code(s): D17.9 - Benign lipomatous neoplasm, unspecified Comment: removed from right hip (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 Current Visit: No Code(s): K60.4 - Rectal fistula Comment: 1960 (14) Atherosclerotic heart disease of [place] coronary artery without angina pectoris Status: Chronic Current Visit: No Qualifiers: Code(s): I25 .10 - Atherosclerotic heart disease of [place] coronary artery without angina pectoris (15) Cellulitis of left leg Status: Resolved Current Visit: No Code(s): L03.116 - Cellulitis of left lower limb (1 6) Failure to thrive Status: Chronic Current Visit: No Code(s): CLL3298 - (17) Positional vertigo Status: Chronic Current Visit: No Code(s): H81.10 - Benign paroxysmal vertigo, unspecified ear (18) Ul cer Status: Resolved Current Visit: No Code(s): L98.499 - Non-pressure chronic ulcer of skin of other sites with unspecified severity (19) Obesity Status: Chronic Current Visit: No Code(s): E66.9 - Obe sity, unspecified (20) Hx of venous thrombosis and embolism Status: Chronic Current Visit: No Code(s): Z86.718 - Personal history of other venous thrombosis and embolism (21) history of cellulitis of leg Status: Chronic Current Visit: Yes (22) Leg swelling Status: Chronic Current Visit: Yes Code(s): M79.89 - Other specified soft tissue disorders (23) Hyperpigmentation of skin Status: Chronic Curr ent Visit: Yes Code(s): L81.9 - Disorder of pigmentation, unspecified (24) Lipodermatosclerosis Status: Chronic Current Visit: Yes Code(s): I83.10 - Varicose veins of unspecified lower extremity with inflammation (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 Current Visit: Yes Code(s): I87.093 - Postthrombotic syndrome with other complications of bilateral lower extremity (26) Chronic venous hypertension (idiopathic) with inflammation of bilateral lower extremity Status: Chronic Current Visit: Yes Code(s): I87.323 - Chronic venous hypertension (idiopathic) with inflamm ation of bilateral lower extremity (27) Localized edema Status: Chronic Current Visit: Yes Code(s): R60.0 - Localized edema (28) Non-pressure chronic ulcer of left calf with fat layer exposed Status: Resolved Current Visit: Yes Code(s): L97.222 - Non-pressure chronic ulcer of left calf with fat layer exposed (29) 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 Current Visit: No Code(s): E11.59 - Type 2 diabetes mellitus with other circulatory complications (30) Generalized weakness Status: Chronic Current Visit: No Code(s): R53.1 - Weakness (31) Hyperlipidemia Stat us: Chronic Current Visit: No Qualifiers: Code(s): E78.5 - Hyperlipidemia, unspecified (32) Diabetes Status: Chronic Current Visit: No Code(s): E11.9 - Type 2 diabetes mellitus without complications (33) Hypertension Status: Chronic Current Visit: No Qualifiers: Code(s): I10 - Essential (primary) hypertension (34) Chronic venous hypertension (idiopathic) with ulcer of left lower extremity Status: Chronic Current Visit: Yes Code(s): I87.312 - Chronic venous hypertension (idiopathic) with ulcer of left lower extremity (35) Chronic venous stasis dermatitis Status: Chronic Current Visit: Yes Code( s): I87.2 - Venous insufficiency (chronic) (peripheral) (36) Non-pressure chronic ulcer of left ankle with fat layer exposed Status: Resolved Current Visit: Yes Code(s): L97.322 - Non-pressure chronic ulcer of left ankle with fat layer exposed (37) 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 Status: Chronic Current Visit: No Code(s): I70.249 - Atherosclerosis of [place] arteries of left l eg with ulceration of unspecified site (38) Type 2 diabetes mellitus Status: Chronic Current Visit: No Code(s): E11.9 - Type 2 diabetes mellitus without complications History of Present Illness Chief Complaint: Severe swelling, edema, and lymphedema of the lower extremities associated with severe hyperpigmentation and lipodermatosclerosis; venous stasis dermatitis and venous stasis ulceration of lef t lower extremity; recent cat scratch of the left lower extremity History of Wound: This is a 77-year-old female who presents with an open wound on the distal aspect of the left lower extremity involvin g the [facility] area. According to the patient, she sustained a cat scratch by a strange cat approximately 3 weeks ago, which resulted in cellulitis. She has been evaluated by her primary care physician, michael zhu [facility], and has been prescribed Augmentin to be taken twice daily for a total of 10 days. She is in the midst of this prescription. Of significance, the patient has been treat ed in the past for manifestations of chronic venous disease, and has been advised of the proper conservative treatment measures relative to the management of this disease. Nonetheless, she has been larg dhruv noncompliant. She possesses graduated compression stockings, but has not been wearing them. She has been advised to elevate her lower extremities which is possible, but does so rarely. She sleeps in a recliner with her legs in a dependent position, which has been discouraged in the past. The patient is obese, which further exacerbates issues related to her chronic venous disease. Furthermore, she has been using peroxide topically at the site of the recent cat scratch. As mentioned, patient has a history of severe venous disease, and presents at this time with apparent exacerbation of her venous symptoms. This is likely due to her weight and noncompliance with recommended measures. The patient has been previously treated for an ulceration in the left lower extremity related to her venous diseas e. In 2010, the patient was treated for a deep vein thrombosis in the right lower extremity. She remained on Coumadin for many years. However, after gastrointestinal bleeding in September 2015, her Coumadin was discontinued. The patient has undergone vascular studies approximately 1 year ago, results of which revealed noncompressible vasculature at ankle level bilaterally, but normal digital-brachial miiram gaby bilaterally. 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) Failure to thrive (Chronic) Positional vertigo (Chronic) Obesity (Chronic) Hx of venous thrombosis and embolism (Chronic) history of cellulitis of leg (Chronic) Leg swelling (Chronic) Hyperpigmentation of skin (Chronic) Lipodermatosclerosis (Chronic) 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 hypertension (idiopathic) with inflamm ation of bilateral lower extremity (Chronic) Localized edema (Chronic) 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 The patient underwent excision of a right hip lipoma in the past. Patient is a Ab0. Allergies/Adverse Reactions: Allergies atorvastatin calcium [From Lipitor] Allergy (Verified 8 11:28) Unknown ezetimibe [From Zetia] Allergy (Verified 09/21/17 11:28) Unknown lisinopril Allergy (Verified 09/21/17 11:28) Unknown neomycin [Neomycin] Allergy (Verified 09/21/17 11:28) Unknown neomy germania sulfate [From Neosporin ([id number])] Allergy (Verified 09/21/17 11:28) Itching polymyxin B [Polymyxin B] Allergy (Verified 09/21/17 11:28) Unknown Sulfa (Sulfonamide Antibiotics) Allergy (Verifi ed 09/21/17 11:28) Unknown tetracycline [Tetracycline] Allergy (Verified 09/21/17 11:28) Itching adhesive tape Adverse Reaction (Severe, Verified 09/21/17 11:28) Unknown Home Medications: Ambulatory O rders Medication Instructions Recorded Cholecalciferol (Vitamin D3) 2,000 unit PO DAILY 01/15/17 [Vitamin D3] Famotidine [Pepcid] 20 mg PO BID 01/15/17 Irbesartan [Avapro] 75 mg PO DAILY 01/15/17 - Family History Maternal Family History: Family History (Last Reviewed 09/21/17 @ 11:30 by Lila Costa) Mother CAD (coronary artery disease) Myocardial infarction Son Hypertension Brother Aortic aneury sm No pertinent history, - - Patient's father at age of 74 with a history of diabetes mellitus. The patient's mother at age of 59 with a myocardial infarction. Paternal Family History: F amily History (Last Reviewed 09/21/17 @ 11:30 by Lila Costa) Mother CAD (coronary artery disease) Myocardial infarction Son Hypertension Brother Aortic aneurysm No pertinent history Smoking Status: Fo rmer smoker Tobacco Use: Non-smoker Review of Systems Constitutional: Denies: Chills, Fever, Weight Change Eyes: Denies: Pain, Vision Change HEENT: Denies: Difficulty Hearing, Difficulty Swallowing, Si nus Congestion Cardiovascular: Denies: Chest Pain, Palpitations Respiratory: Denies: Cough, Shortness of Breath Gastrointestinal: Denies: Diarrhea, Nausea, Vomiting Genitourinary: Denies: Dysuria, Hemat uria Endocrine: Denies: Heat/ Cold Intolerance, Polydipsia, Polyuria Hematologic/ Lymphatic: Denies: Easy Bruising, Easy Bleeding - Physical Exam Vital Signs Temp Pulse Resp BP 97.7 F L 79 16 149/57 H 05/08/18 09:50 05/08/18 09:50 05/08/18 09:50 05/08/18 09:50 General: Alert, Oriented x3, Cooperative, No apparent distress, Well developed, Well nourished HEENT: Atraumatic, PERRLA, EOMI, Normocephal ic Oral: Moist Mucosa Neck: No JVD Lungs: Normal air movement Abdomen: Non-Distended Extremities: No clubbing, No cyanosis, No Calf Tenderness, - - Mild swelling and edema persist in the left lower extr emity. The ulceration on the left anterior tibial surface is smaller in size. The base of the ulceration is generally pink and healthy in appearance, with evidence of active healthy granulation tissue. There is a small amount of bioburden. There is no sign of infection or cellulitis. Dimensions are documented elsewhere. Chronic skin changes are noted, including hyperpigmentation and lipodermatoscleros is. Wound Measurements and Assessment WC - Nurse 1 - General Ulcer Measurement Start: 05/08/18 09:50 Freq: Status: Active Protocol: Activity Type Activity Date Activity User E-Sign Co-Sign Detail Recor ded Client Recorded Date Recorded By Document 05/08/18 09:50 IZZY [id number] 05/08/18 09:55 IZZY W[facility] Center Nurse 1 [Ulcer Assessment] - Nurse 2 - General Ulcer CM Notes Start: 05/08/18 09:50 Freq: Statu s: Active Protocol: Activity Type Activity Date Activity User E-Sign Co-Sign Detail Recorded Client Recorded Date Recorded By Document 05/08/18 10:06 KELI [id number] 05/08/18 10:12 KELI W[facility] Center Nurse 2 Neurological: Cranial nerves II-XII grossly intact, Neuro grossly intact Psych/Mental Status: Normal Affect, Appropriate, Alert and oriented to time, place, person, mood and affect Debridement Note Po st-Debridement Measurements/Treatment WC - Nurse 2 - General Ulcer CM Notes Start: 05/08/18 09:50 Freq: Status: Active Protocol: Activity Type Activity Date Activity User E-Sign Co-Sign Detail Recorded Client Recorded Date Recorded By Document 05/08/18 10:06 KELI [id number] 05/08/18 10:12 DV W[facility] Center Nurse 2 #2 cat scratch-cellulits -Time 10:06 -Correct Patient Yes -Correct Side, Site, Position Yes Laterality: Left - Anterior tibial surface Type of Debridement: Excisional debridement Anesthesia Used: 5% Lidocaine Gel Depth: Down to and including healthy tissue, in the subcutaneous layer Percentag e of wound debrided: 100 Instrument Used: 3mm curette Severity: Fat Layer Exposed Amount of bleeding with debridement: Mild Bleeding Controlled with: Compression and gauze Patient tolerated procedure we ll Assessment/Plan Active Problems (Last Updated 09/21/17 @ 11:42 by ARCHANA Ontiveros) Edema of both legs (Chronic) Venous stasis ulcer (Chronic) history of cellulitis of leg (Chronic) Leg swe lling (Chronic) Hyperpigmentation of skin (Chronic) Lipodermatosclerosis (Chronic) 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 She has been previously treated for ulcerations in the left lower extremity. Malcolm gerardo, despite clear instructions as to the appropriate management of her chronic venous disease, the patient has been largely noncompliant. She sits for prolonged periods of time. She is not very activ e. She sleeps in recliner with her legs in a dependent position. She does not reliably elevate her lower extreme these each day. She has failed to use compression as previously prescribed. Furthermore, she has been using peroxide topically to the ulceration in the distal left lower extremity. She relates a recent cat scratch to this area approximately 3 weeks ago, but the appearance of the ulceration is more consistent with the patient's history of chronic venous disease. The lack of compliance with previously recommended measures is likely the cause of the patient's presenting symptoms and manifest ations. Plan: We have discussed the implementation of conservative treatment measures, and redoubling of the patient's efforts in this regard. The patient appears somewhat resistant to this idea. She huang s been largely noncompliant in the past. Leg elevation has been recommended. Her legs are to be elevated to heart level, or higher. This is to be accomplished during day and night time hours. She has be en encouraged to sleep on a flat surface at night. Activity has been recommended. Prolonged idle sitting has been discouraged. Weight loss has been recommended. We are to continue compression to the lef t lower extremity by means of an Unna boot, which will be applied today, and changed twice weekly. The patient has been advised that the use of peroxide topically has been counterproductive. Patient has now completed her prescription for Augmentin twice daily for 10 days. Wound cultures have been obtained, and results were negative. The patient has previous venous and arterial studies, which do not ap pear to require repeating. The patient will return in 2 weeks for reassessment. Her Unna boot will continue to be changed twice weekly. The patient is not a smoker. Influenza vaccine was not administere d today. Patient weighs 171 pounds. She stands 4 feet 10 inches tall, her BMI is 35.7, which places her in an obese class II category. Weight loss has been recommended, in collaboration with the patient 's primary care physician has been advised in this regard. 05/08/18 1020 <Electronically signed by Bao Brothers MD> Date Bao Brothers MD CC: Signed 01-May-2018 Wound Ctr History AND Physical Result: Comments: See Note; NOTES: [facility] [address] [place] [address] Wound Ctr History AND Physical 05/01/18 1054 MR#: [id number] Acct: [id number] Name: BRISSA WHITE Rep #: [id number] : 1940 77 From: Bao Brothers MD PCP: Lesly Chairez NP Status: REG RCR Y Location: WC (1) GERD (gastroesophageal reflux disease) Status: Chronic Current Visit: No Code(s): K21.9 - Gastro-esophageal reflux disease without esophagitis (2) Osteoarthritis Status: Chronic Current Visit: No Code(s): M19.90 - Unspecified osteoarthritis, unspecified site (3) Edema of b oth legs Status: Chronic Current Visit: Yes Code(s): R60.0 - Localized edema (4) Hiatal hernia Status: Chronic Current Visit: No Code(s): K44.9 - Diaphragmatic hernia without obstruction or gangrene ( 5) Atherosclerotic heart disease of [place] coronary artery without angina pectoris Status: Chronic Current Visit: No Qualifiers: [place] vs. transplanted heart: [place] heart Code(s): I25.10 - Atheroscler otic heart disease of [place] coronary artery without angina pectoris (6) Failure to thrive Status: Chronic Current Visit: No Code(s): [id number] - (7) Positional vertigo Status: Chronic Current Visit: No Code(s): H81.10 - Benign paroxysmal vertigo, unspecified ear (8) Obesity Status: Chronic Current Visit: Yes Code(s): E66.9 - Obesity, unspecified (9) Hx of venous thrombosis and embolism Status: [employer] Current Visit: Yes Code(s): Z86.718 - Personal history of other venous thrombosis and embolism (10) history of cellulitis of leg Status: Chronic Current Visit: No (11) Leg swelling Status: Chronic Current Visit: Yes Code(s): M79.89 - Other specified soft tissue disorders (12) Hyperpigmentation of skin Status: Chronic Current Visit: Yes Code(s): L81.9 - Disorder of pigmentation, unspecified ( 13) Lipodermatosclerosis Status: Chronic Current Visit: Yes Code(s): I83.10 - Varicose veins of unspecified lower extremity with inflammation (14) Post- phlebitic dermatosis of both lower extremities St atus: Chronic Current Visit: Yes Code(s): I87.093 - Postthrombotic syndrome with other complications of bilateral lower extremity (15) Chronic venous hypertension (idiopathic) with inflammation of bila teral lower extremity Status: Chronic Current Visit: Yes Code(s): I87.323 - Chronic venous hypertension (idiopathic) with inflammation of bilateral lower extremity (16) Non-pressure chronic ulcer of le ft calf with fat layer exposed Status: Resolved Current Visit: Yes Code(s): L97.222 - Non-pressure chronic ulcer of left calf with fat layer exposed (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 Current Visit: No Code(s): E11.59 - Type 2 diabetes mellitus with other circulatory complications (18) Hyperlipidemia Status: Chronic Current Visit: No Qualifiers: Code( s): E78.5 - Hyperlipidemia, unspecified (19) Diabetes Status: Chronic Current Visit: No Code(s): E11.9 - Type 2 diabetes mellitus without complications (20) Hypertension Status: Chronic Current Visit: No Qualifiers: Code(s): I10 - Essential (primary) hypertension (21) Chronic venous hypertension (idiopathic) with ulcer of left lower extremity Status: Chronic Current Visit: Yes Code(s): I87.312 - C hronic venous hypertension (idiopathic) with ulcer of left lower extremity (22) Chronic venous stasis dermatitis Status: Chronic Current Visit: Yes Code(s): I87.2 - Venous insufficiency (chronic) (tony pheral) (23) Non-pressure chronic ulcer of left ankle with fat layer exposed Status: Resolved Current Visit: Yes Code(s): L97.322 - Non-pressure chronic ulcer of left ankle with fat layer exposed (24) Type 2 diabetes mellitus Status: Chronic Current Visit: No Code(s): E11.9 - Type 2 diabetes mellitus without complications (25) Venous stasis ulcer Status: Chronic Current Visit: Yes Code(s): I83.009 - Varicose veins of unspecified lower extremity with ulcer of unspecified site; L97.909 - Non-pressure chronic ulcer of unspecified part of unspecified lower leg with unspecified severity History of Pr esent Illness Chief Complaint: Severe swelling, edema, and lymphedema of the lower extremities associated with severe hyperpigmentation and lipodermatosclerosis; venous stasis dermatitis and venous marty is ulceration of left lower extremity; recent cat scratch of the left lower extremity History of Wound: This is a 77-year-old female who presents with an open wound on the distal aspect of the left lowe r extremity involving the gaiter area. According to the patient, she sustained a cat scratch by a strange cat approximately 3 weeks ago, which resulted in cellulitis. She has been evaluated by her prima care physician, at [facility], and has been prescribed Augmentin to be taken twice daily for a total of 10 days. She is in the midst of this prescription. Of significance, the pa sumit has been treated in the past for manifestations of chronic venous disease, and has been advised of the proper conservative treatment measures relative to the management of this disease. Nonetheles s, she has been largely noncompliant. She possesses graduated compression stockings, but has not been wearing them. She has been advised to elevate her lower extremities which is possible, but does so r shilpa. She sleeps in a recliner with her legs in a dependent position, which has been discouraged in the past. The patient is obese, which further exacerbates issues related to her chronic venous diseas e. Furthermore, she has been using peroxide topically at the site of the recent cat scratch. As mentioned, patient has a history of severe venous disease, and presents at this time with apparent exacerb ation of her venous symptoms. This is likely due to her weight and noncompliance with recommended measures. The patient has been previously treated for an ulceration in the left lower extremity related to her venous disease. In 2010, the patient was treated for a deep vein thrombosis in the right lower extremity. She remained on Coumadin for many years. However, after gastrointestinal bleeding in 2015, her Coumadin was discontinued. The patient has undergone vascular studies approximately 1 year ago, results of which revealed noncompressible vasculature at ankle level bilaterally, but normal d igital-brachial indices bilaterally. 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) Failure to thrive (Chronic) Positional vertigo (Chronic) Obesity (Chronic) Hx of venous thrombosis and embolism (Chronic) history of cellulitis of leg (Chronic) Leg swelling (Chronic) Hyperpigmentation of skin (Chronic) Lipodermatosclerosis (Chronic) 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 hypertension (idio pathic) with inflammation of bilateral lower extremity (Chronic) Localized edema (Chronic) 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 Surgical History: - - 2009 had colonoscopy 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 the 1979 fa tty tumor tubal ligation 3 d AND c spir removed. The patient underwent excision of a right hip lipoma in the past. Patient is a Ab0. Allergies/Adverse Reactions: Allergies atorvastatin calcium [F rom Lipitor] Allergy (Verified 09/21/17 11:28) Unknown ezetimibe [From Zetia] Allergy (Verified 09/21/17 11:28) Unknown lisinopril Allergy (Verified 09/21/17 11:28) Unknown neomycin [Neomycin] Allergy ( Verified 09/21/17 11:28) Unknown neomycin sulfate [From Neosporin ([id number])] Allergy (Verified 09/21/17 11:28) Itching polymyxin B [Polymyxin B] Allergy (Verified 09/21/17 11:28) Unknown Sulfa (De Apz lfonamide Antibiotics) Allergy (Verified 09/21/17 11:28) Unknown tetracycline [Tetracycline] Allergy (Verified 09/21/17 11:28) Itching adhesive tape Adverse Reaction (Severe, Verified 09/21/17 11:28) Un known Home Medications: Ambulatory Orders Medication Instructions Recorded Cholecalciferol (Vitamin D3) 2,000 unit PO DAILY 01/15/17 [Vitamin D3] Famotidine [Pepcid] 20 mg PO BID 01/15/17 Irbesartan [Avapro] 75 mg PO DAILY 01/15/17 - Family History Maternal Family History: Family History (Last Reviewed 09/21/17 @ 11:30 by Lila Costa) Mother CAD (coronary artery disease) Myocardial infarction Son Hypertension Brother Aortic aneurysm No pertinent history, - - Patient's father at age of 74 with a history of diabetes mellitus. The patient's mother at age of 59 with a myocardial infa rction. Paternal Family History: Family History (Last Reviewed 09/21/17 @ 11:30 by Lila Costa) Mother CAD (coronary artery disease) Myocardial infarction Son Hypertension Brother Aortic aneurysm N o pertinent history Smoking Status: Former smoker Tobacco Use: Non-smoker Alcohol: None Drugs: None Review of Systems Constitutional: Denies: Chills, Fever, Weight Change Eyes: Denies: Pain, Vision Rufina nge HEENT: Denies: Difficulty Hearing, Difficulty Swallowing, Sinus Congestion Cardiovascular: Denies: Chest Pain, Palpitations Respiratory: Denies: Cough, Shortness of Breath Gastrointestinal: Denies: Diarrhea, Nausea, Vomiting Genitourinary: Denies: Dysuria, Hematuria Endocrine: Denies: Heat/ Cold Intolerance, Polydipsia, Polyuria Hematologic/ Lymphatic: Denies: Easy Bruising, Easy Bleeding - Physi jessica Exam Vital Signs Temp Pulse Resp BP 98.4 F 80 18 150/69 H 05/01/18 10:05 05/01/18 10:05 05/01/18 10:05 05/01/18 10:05 General: Alert, Oriented x3, Cooperative, No apparent distress, Well develope d, Well nourished, - - Patient is obese HEENT: Atraumatic, PERRLA, EOMI, Normocephalic Oral: Moist Mucosa, No Gingival or Mucosal Lesions/ Ulcerations Neck: Supple, No JVD, Negative Carotid Bruits, Nega tive Hepatojugular Reflux, No Nodes, No Nuchal Rigidity, Trachea Midline Lungs: Clear to auscultation, Normal air movement, No rhonchi, No wheeze, No rales Cardiovascular: Regular rate, Regular Rhythm, Normal S1, Normal S2, No murmurs Abdomen: Soft, Non Tender, Non-Distended, Obese Extremities: No clubbing, No cyanosis, No Calf Tenderness, - - Severe swelling and edema are noted in the lower extremiti es bilaterally, particularly involving the ankles. In the right lower extremity, the skin is intact. There is a diffuse erythema in the right gaiter area. On the left, there is a large superficial ulcer ation in the gaiter area. There is erythema in the gaiter area as well. There is no evidence of a cat scratch. However, the appearance of the ulceration is consistent with a venous stasis ulceration. Di mensions are documented elsewhere. Swab cultures have been obtained for both aerobic and anaerobic bacterial growth. Wound Measurements and Assessment WC - Nurse 1 - General Ulcer Measurement Start: 09:46 Freq: Status: Active Protocol: Activity Type Activity Date Activity User E-Sign Co-Sign Detail Recorded Client Recorded Date Recorded By Document 05/01/18 10:05 TM [id number] 05/01/18 10:17 TM Wound Center Nurse 1 [Ulcer Assessment] #2 cat scratch-cellulits -Combined with other wound No WC - Nurse 2 - General Ulcer CM Notes Start: 05/01/18 09:46 Freq: Status: Active Protocol: Activity Type Activity Date Activity User E-Sign Co-Sign Detail Recorded Client Recorded Date Recorded By Document 05/01/18 10:41 JS [id number] 05/01/18 10:52 CLAISTA Wound Center Nurse 2 [Procedure/Treatment] #2 cat scratch -cellulits -Time 10:41 -Correct Patient Yes -Correct Side, Site, Position Yes Neurological: Cranial nerves II-XII grossly intact, Neuro grossly intact Psych/Mental Status: Normal Affect, Appropriate, Alert and oriented to time, place, person, mood and affect Debridement Note Post-Debridement Measurements/Treatment WC - Nurse 2 - General Ulcer CM Notes Start: 05/01/18 09:46 Freq: Status: Active Pr otocol: Activity Type Activity Date Activity User E-Sign Co-Sign Detail Recorded Client Recorded Date Recorded By Document 05/01/18 10:41 CALISTA [id number] 05/01/18 10:52 [facility]ISTA [facility] Nurse 2 #2 cat scratch -cellulits No debridement was completed today Assessment/Plan Active Problems (Last Updated 09/21/17 @ 11:42 by ARCHANA Ontiveros) Edema of both legs (Chronic) Venous stasis ulcer (Chronic) Obesity (Chronic) Hx of venous thrombosis and embolism (Chronic) Leg swelling (Chronic) Hyperpigmentation of skin (Chronic) Lipodermatosclerosis (Chronic) 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 She has been previously treated f or ulcerations in the left lower extremity. However, despite clear instructions as to the appropriate management of her chronic venous disease, the patient has been largely noncompliant. She sits for pr olonged periods of time. She is not very active. She sleeps in recliner with her legs in a dependent position. She does not reliably elevate her lower extreme these each day. She has failed to use compr ession as previously prescribed. Furthermore, she has been using peroxide topically to the ulceration in the distal left lower extremity. She relates a recent cat scratch to this area approximately 3 we eks ago, but the appearance of the ulceration is more consistent with the patient's history of chronic venous disease. The lack of compliance with previously recommended measures is likely the cause of the patient's presenting symptoms and manifestations. Plan: We have discussed the implementation of conservative treatment measures, and redoubling of the patient's efforts in this regard. The patient a ppears somewhat resistant to this idea. She has been largely noncompliant in the past. Leg elevation has been recommended. Her legs are to be elevated to heart level, or higher. This is to be accomplish ed during day and night time hours. She has been encouraged to sleep on a flat surface at night. Activity has been recommended. Prolonged idle sitting has been discouraged. Weight loss has been recommen ded. We are to implement compression to the left lower extremity by means of an Unna boot, which will be applied today, and changed twice weekly. The patient has been advised that the use of peroxide to pically has been counterproductive. Patient has been advised to continue with her prescription for Augmentin twice daily for 10 days. Wound cultures have been obtained, and results will be awaited. The patient has previous venous and arterial studies, which do not appear to require repeating. The patient has return in 1 week for reassessment. The patient is not a smoker. Influenza vaccine was not admi nistered today. Patient weighs 171 pounds. She stands 4 feet 10 inches tall, her BMI is 35.7, which places her in an obese class II category. Weight loss has been recommended, in collaboration with the patient's primary care physician has been advised in this regard. 05/01/18 1122 <Electronically signed by Bao Brothers MD> Date Bao Brothers MD CC: Signed 22-Mar-2018 Dexa Bone Density Study Result: Comments: See Note; NOTES: [facility] Imaging Services [address] [place] [address] Dexa Bone Density Study MR#: [id number] Acct: [id number] Name: BRISSA SOARES Rep #: [id number] : 1940 F 77 From: Sergio Perea MD PCP: Lesly Chairez NP Status: REG CLI Study: Dexa Bone Density Study Date of Exam: 03/22/18 Exam# [id number] Ordering Dr: Lesly Chairez STUDY: D UAL [...] Sergio Perea MD at 15:16 EDT Tel [phone], Service support , CC: Lesly Chairez NP Primary Care Md: Signed 22-Mar-2018 SCREENING MAMM (CAD), BILAT Result: Comments: See Note; NOTES: [facility] Imaging Services [address] [place] [address] SCREENING MAMM (CAD), BILAT MR#: [id number] Acct: [id number] Name: BRISSA SOARES Rep #: [id number] : 1940 F 77 From: Sergio Perea MD PCP: Lesly Chairez NP Status: REG CLI Study: SCREENING MAMM (CAD), BILAT Date of Exam: 03/22/18 Exam# [id number] Ordering Dr: Lesly Chairez ELECTRICAL SYSTEMS DESIGNER-C MAMMOGRAPHY - BILATERAL SCREENING REASON FOR EXAM: [...] delay biopsy of a clinically suspicious abnormality. [id number] Electronically Signed: Sergio Perea MD at 10:28 EDT Tel [phone], Service support , CC: Lesly Chairez NP Primary Care Md: Signed 12-Feb-2018 HIP, UNI W/ Pelvis 2-3 Views Result: Comments: See Note; NOTES: [facility] Imaging Services [address] [place] [address] HIP, UNI W/ Pelvis 2-3 Views MR#: [id number] Acct: [id number] Name: BRISSA SOARES Rep # : [id number] : 1940 F 77 From: Justo Kennedy MD PCP: Lesly Chairez NP Status: REG CLI Study: HIP, UNI W/ Pelvis 2-3 Views Date of Exam: 02/12/18 Exam# [id number] Ordering Dr: Lesly Chairez STUD Y: X-RAY - PELVIS AND RIGHT HIP [...] Service support , CC: Lesly Chairez NP Primary Care Md: Signed 16-Nov-2017 Abdomen Complete Result: Comments: See Note; NOTES: [facility] Imaging Services [address] [place] [address] Abdomen Complete MR#: [id number] Acct: [id number] Name: BRISSA SOARES Rep #: [id number] : 1940 F 77 From: Yulissa Reilly MD PCP: Lesly Chairez NP Status: REG CLI Study: Abdomen Complete Date of Exam: 11/16/17 Exam# [id number] Ordering Dr: Lesly Chairez STUDY: ABDOMINAL ULTRASOUND [...] Service support , CC: Lesly Chairez NP Primary Care Md: Signed 22-Sep-2017 Cardiology Visit Report Result: Comments: See Note; NOTES: [facility] [address] [place] [address] OFFICE VISIT Date of Service: 09/21/17 MR#: [id number] Acct: [id number] Name: BARTBRISSA M Rep #: [id number] : 1940 Provider: Serenity Villarreal Age/Sex: 77/F Location: [facility] Status: Signed HPI HPI Details: BRISSA SOARES, [...] 152/68 Intake Visit Reasons: 6 M FU Rn Patient Services Required: No Accompanied by: none Is patient in pain?: No Allerg ies atorvastatin calcium [From Lipitor] Allergy (Verified 09/21/17 11:28) Unknown ezetimibe [From Zetia] Allergy (Verified 09/21/17 11:28) Unknown lisinopril Allergy (Verified 09/21/17 11:28) Unknown n eomycin [Neomycin] Allergy (Verified 09/21/17 11:28) Unknown neomycin sulfate [From Neosporin (mrs-ujd-uzbak)] Allergy (Verified 09/21/17 11:28) Itching polymyxin B [...] History Palpitations (Chronic) 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 Stress test at that time indicated myocardial is chemia in the mid and distal inferior apical segments. Heart catheterization demonstrated mild coronary artery disease. Medical management was recommended. Assessment AND Plan 1. Atherosclerosis of na tive coronary artery of [place] heart without angina pectoris I25.10 Plan Stable, [...] Code Off vis,est,level 3 Diagnoses Atherosclerosis of [place] coronary artery of [place] heart without angina pectoris I25.10 [place] vs. transplanted heart: [place] heart Essential hypertension I10 Hypertension type: essential hypertension Pure hypercholesterolemia E78.00; E78.0 Hy perlipidemia type: pure hypercholesterolemia Coding Level of Care Code Off vis,est,level 3 Diagnoses Atherosclerosis of [place] coronary artery of [place] heart without angina pectoris I25.10 [place] vs . transplanted heart: [place] heart Essential hypertension I10 Hypertension type: essential hypertension Pure hypercholesterolemia E78.00; E78.0 Hyperlipidemia type: pure hypercholesterolemia 09/22/17 0925 <Electronically signed by Serenity MAGAÑA> Date Serenity MAGAÑA Cosigner Signature: Date (if applicable) CC: Lesly Chairez ELECTRICAL SYSTEMS DESIGNER 20-Mar-2017 Wound Ctr History AND Physical Result: Comments: See Note; NOTES: [facility] [address] [facility] [place] [address] Wound Ctr History AND Physical 03/20/17 1426 MR#: [id number] Acct: [id number] Name: BRISSA WHITE Rep #: [id number] : 1940 76 From: Bao Brothers MD PCP: Lesly Chairez Status: REG RCR Y Location: WC (1) 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 Status: Chronic Curr ent Visit: No Code(s): I70.249 - ATHSCL AGUA CALIENTE ARTERIES OF LEFT LEG W ULCERATION OF UNSP SITE (2) Failure to thrive Status: Chronic Current Visit: No Code(s): CND3894 - (3) Generalized weakness Status : Chronic [...] has been treated at the [facility] wound healing center in recent weeks for [...] 11/15/15 15:31) Unknown neomycin sulfate [From Neosporin (iwq-zvh-haotc)] Allergy (Verified 11/15/15 15:31) Itching polymyxin B [...] Recorded Date Recorded By Document 03/20/17 12:55 TM [id number] 2 03/20/17 13:02 Wound Center Nurse [...] Date Recorded By Document 03/20/17 14:23 DV [id number] 03/05 11/19 14:25 DV Pain Scale: 0-10 [...] Date Recorded By Document 03/20/17 14:23 DV [id number] 03/20/17 14:25 DV Pain Scale: 0-10 Numeric [...] (CAD), BILAT Result: Comments: See Note; NOTES: [facility] Imaging Services [address] [place] [address] SCREENING MAMM (CAD), BILAT MR#: [id number] Acct: [id number] Name: BRISSA SOARES Rep #: [id number] : 1940 F 76 From: Jessica Gonzalez MD PCP: Lesly Chairez Status: REG CLI Study: SCREENING MAMM (CAD), BILAT Date of Exam: 03/09/17 Exam# [id number] Ordering Dr: Lesly Chairez MAMMOGRAPHY - BILATERAL [...] delay biopsy of a clinically suspicious abnormality. 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 Status: Chronic Curr ent Visit: No Code(s): I70.249 - ATHSCL AGUA CALIENTE ARTERIES OF LEFT LEG W ULCERATION OF UNSP SITE (2) Cellulitis of left leg Status: Resolved Current Visit: No Code(s): L03.116 - CELLULITIS OF LEFT LOWER L IMB (3) Failure to thrive Status: Acute Current Visit: No Code(s): KGH9358 - (4) Generalized weakness Status: Acute Current [...] She has been garrett juan at the [facility] wound healing center in recent weeks for [...] (Chronic) Ulcer (Chronic) Surgical History: - - 2009 had colonoscopy 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 tubal ligation 3 d [...] 11/15/15 15:31) Unknown neomycin sulfate [From Neosporin (gzl-epu-iryfk)] Allergy (Verified 11/15/15 15:31) Itching polymyxin B [...] Recorded Date Recorded By Document 03/06/17 13:13 IZZY [id number] 03/06/17 13:22 IZZY Wound Center Nurse 1 [Edema Assessment] - Lower Limb Edema Present Yes -Right Calf (cm) 38 -Right Ankle (cm) 24.5 -Left Calf (cm) 40.5 -Left Ankle (cm) 23.2 JEAN PAUL - Nurse 2 - General Ulcer CM Notes Start: 03/06/17 13:13 Freq: Status: Active Activity Type Activity Date Activity User E-Sign Co-S ign Detail Recorded Client Recorded Date Recorded By Document 03/06/17 14:12 DV [id number] 03/06/17 14:13 DV Pain Scale: 0-10 Numeric [...] Recorded Date Recorded By Document 14:12 DV [id number] 03/06/17 14:13 DV Pain Scale: 0-10 Numeric [...] Weight loss has been recommended. The jeffrey t has been advised to collaborate with her primary care physician in terms of weight loss options. 03/06/17 142 <Electronically signed by Bao Brothers MD> Date Bao Brothers MD CC: Signed 27-Feb-2017 Wound Ctr History AND Physical Result: Comments: See Note; NOTES: [facility] [address] [place] [address] Wound Ctr History AND Physical 02/27/17 1412 MR#: [id number] Acct: [id number] Name: BRISSA WHITE Rep #: [id number] : 1940 76 From: Bao Brothers MD [...] extremities. She has been treated at the [facility] wound healing center in recent weeks [...] 11/15/15 15:31) Unknown neomycin sulfate [From Neosporin (gmd-cei-tcbhg)] Allergy (Verified 11/15/15 15:31) Itching polymyxin B [...] Recorded Date Recorded By Document 02/27/17 13:25 [facility] [id number] 02/27/17 13:34 [facility] Wound Center Nurse 1 [Edema Assessment] -Lower Limb Edema Present Yes -Right Calf (cm) 39.7 -Right Ankle (cm) 26 -Left Calf (cm) 41 -Left Ankle (cm) 26.5 WC - Nurse 2 - General Ulcer CM Notes Start: 02/03/17 13:02 Freq: Status: Active Activity Type Activity Date Activit y User E-Sign Co-Sign Detail Recorded Client Recorded Date Recorded By Document 02/27/17 13:50 DV [id number] 02/27/17 13:50 DV Pain Scale: 0-10 Numeric [...] Recor ded By Document 02/27/17 13:50 DV [id number] 02/27/17 13:50 DV Pain Scale: 0-10 Numeric [...] AND Physical Result: Comments: See Note; NOTES: [facility] [address] [place] [address] Wound Ctr History AND Physical 02/20/17 1309 MR#: [id number] Acct: [id number] Name: BRISSA WHITE Rep #: [id number] : 1940 76 From: Bao Brothers MD [...] extremities. She has been treated at the [facility] wound healing center in recent weeks for an ulceration in the left medial supramalleolar area. With a combination of conservative treatment measures, including use of Milena and Tubigrip's, the [facility] er healed. 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 Wound Measurements and Assessment - Nurse 1 - General Ulcer Measurem ent Start: 02/03/17 13:02 Freq: Status: Active Activity Type Activity Date Activity User E-Sign Co-Sign Detail Recorded Client Recorded Date Recorded By Document 02/20/17 12:18 [facility] [id number] 02/20/17 12:21 [facility] - Nurse 2 - General Ulcer CM Notes Start: 02/03/17 13:02 Freq: Status: Active Activity Type Activity Date Activity User E-Sign Co-Sign Detail Recorded Client Recorded Date Recorded By Document 02/20/17 12:53 DV [id number] 02/20/17 13:04 DV Pain Scale: 0-10 Numeric [...] Date Recorded By Document 02/20/17 12:53 DV [id number] 02/20/17 13:04 DV Pain Scale: 0-10 Nu meric Is Patient Pain Free? Yes No debridement [...] has been advised to collaborate with her [facility] physician in terms of weight loss options. 02/20/17 1330 <Electronically signed by Bao Brothers MD> Date Bao Brothers MD CC: Signed 17-Feb-2017 Lower Ext Arterial Study Result: Comments: See Note; NOTES: [facility] Cardiovascular Services [address] [place] [address] 02/17/17 1612 MR#: [id number] Acct: [id number] Name: BRISSA SOARES Rep #: [id number] : 1940 76 From: Bao Brothers MD Attending Dr: Andre Gutierrez MD Status: DIS RCR Ordering Dr: Date: 02/17/17 Location: [facility] Sex: F C Admitted: Arterial Study [...] occlusive disease bilaterally. Clinical correlation is advised. 02/17/176 <Electronically signed by Bao Brothers MD> Date Bao Brothers MD CC: Lesly Chairez Date Dictated: 02/17/171611 Date Transcribed: 02/17/171611 Primary Care Md: PASCALE Signed 14-Feb-2017 Venous Duplex Lower Extremity Result: Comments: See Note; NOTES: [facility] Cardiovascular Services [address] [place] [address] Venous Duplex US - Jasson Extrem 02/14/17 1252 MR#: [id number] Acct: [id number] Name: BRISSA SOARES Rep #: [id number] : 1940 76 From: Bao Brothers MD Attending Dr: Paul Srinivasan DPM Status: REG RCR Ordering Dr: Paul Srinivasan DPM Date: 02/14/17 Location: WC Sex: F C Admitte d: Reason For [...] was called and/or faxed posterior calf. to [facility]. Interpret ation Summary Deep veins of [...] Dictated: 02/14/17 1252 Date Transcribed: 02/14/17 1529 Primary Care Md: Signed 07-Feb-2017 Wound Ctr History AND Physical Result: Comments: See Note; NOTES: [facility] [address] [facility] [place] [address] Wound Ctr History AND Physical 02/07/17 1617 MR#: [id number] Acct: [id number] Name: BRISSA WHITE Rep #: [id number] : 1940 76 From: Paul Srinivasan DPM PCP: Lesly Chairez Status: REG RCR Y Location: (1) Non-pressure chronic ulcer of left calf [...] of leg (Chronic) Surgical History: - - 2008 had colonoscopy 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 the 1979 fatyy tumor tubal ligation 3 d AND c spir removed Allergies/Adverse Reactions: Allergies atorvastatin jessica cium [From Lipitor] Allergy (Verified 11/15/15 15:31) Unknown ezetimibe [From Zetia] Allergy (Verified 11/15/15 15:31) Unknown lisinopril Allergy (Verified 11/15/15 15:31) Unknown neomycin [Neomycin] Al lergy (Verified 11/15/15 15:31) Unknown neomycin sulfate [From Neosporin (cem-vyq-esfyj)] Allergy (Verified 11/15/15 15:31) Itching polymyxin B [...] 15:30 02/07/17 15:30 General: Alert, Oriented x3, Ion Exchange Operator perative, No apparent distress HEENT: Atraumatic, Normocephalic [...] Date Recorde d By Document 02/07/17 15:30 [id number] 02/07/17 15:32 Wound Center Nurse 1 WC - Nurse 2 - General Ulcer CM Notes Start: 02/03/17 13:02 Freq: Status: Active Activity Type Activity Date Activity User E-Sign Co-Sign Detail Recorded Client Recorded Date Recorded By Document 02/07/17 16:11 [id number] 02/07/17 16:12 Wound Center Nurse 2 [Procedure/Treatment] [...] Date Recorded By Document 02/07/17 16:11 IZZY [id number] 02/07/17 16:12 [facility] Nurse 2 #1 Left Medial Lower [...] pressure ulcer, venous incompetence, arterial insufficiency Plan: ELECTRICAL SYSTEMS DESIGNER exam. SQ/excision al debridement as above. Cont [...] pain, chest pain, SOB and go to [facility] ED with these. 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 She developed a wound on the left [...] 11/15/15 15:31) Unknown neomycin sulfate [From Neosporin (tzu-fhs-tlaxk)] Allergy (Verified 15:31) Itching polymyxin B [Polymyxin [...] cold and no palpable pedal pulses hilario nisreen no evidence of gangrene and this appears [...] follow up one week and prn, 01/26/17 8295 <Electronically signed by Andre Gutierrez MD> Date Andre Gutierrez MD CC: Signed 16-Jan-2017 Emergency Department Summary Result: Comments: See Note; NOTES: [facility] Medical Records Department [address] [place] [address] Emergency Department Summary 01/15/17 1100 MR#: [id number] Acct: [id number] Name: BRISSA SOARES Rep #: [id number] : 1940 76 From: Jackson Marshall MD [...] problems, contact your Primary Care Provider. Call [facility] ([phone]) or report to [facility] Emergency Room. Call 911 if necessary. 01/16/17 0747 <Electronically signed by Jackson Marshall MD> Date Jackson Marshall MD Cosign er Signature (If Indicated): Date CC: Lesly Chairez 09-Dec-2016 Spine Lumbar (Routine) Result: Comments: See Note; NOTES: [facility] Imaging Services [address] [place] [address] Verdana 4d Spine Lumbar (Routine) MR#: [id number] Acct: [id number] Name: BRISSA SOARES Rep #: [id number] : 1940 F 76 From: Isidro Cole MD PCP: Lesly Chairez Status: REG CLI Study: Spine Lumbar (Routine) Date of Exam: 12/09/16 Exam# [id number] Ordering Dr: Lesly Chairez UDY: MRI LUMBAR [...] 7:17 EDT Tel , Service support [phone]- [phone], CC: Lesly Chairez Primary Care Md: Signed 23-Sep-2016 L/S Spine Min 4 Views Result: Comments: See Note; NOTES: [facility] Imaging Services [address] [place] [address] Nisreendalyly 4d L/S Spine Min 4 Views MR#: [id number] Acct: [id number] Name: BRISSA SOARES ep #: [id number] : 1940 F 76 From: Alisia Kinsey PCP: Lesly Chairez Status: REG CLI Study: L/S Spine Min 4 Views Date of Exam: 09/23/16 Exam# [id number] Ordering Dr: Lesly Chairez STUDY: X-RAY - [...] , Service support , CC: Lesly Chairez Primary Care Md: Signed 08-Apr-2016 Humerus min 2 Views Result: Comments: See Note; NOTES: [facility] Imaging Services [address] [place] [address] Verdana 4d Humerus min 2 Views MR#: [id number] Acct: [id number] Name: BRISSA SOARES Re p #: [id number] : 1940 F 75 From: Sergio Perea MD PCP: Lesly Chairez Status: REG CLI Study: Humerus min 2 Views Date of Exam: 04/08/16 Exam# [id number] Ordering Dr: Lesly Chairez STUDY: X-R AY [...] Sergio Perea MD at 15:05 EDT Tel [phone], Service support [phone], CC: Lesly Chairez Primary Care Md: Signed 29-Feb-2016 Bilat Scrn Digital AND CAD Result: Comments: See Note; NOTES: [facility] Imaging Services [address] [place] [address] Verdana 4d Bilat Scrn Digital AND CAD MR#: [id number] Acct: [id number] Name: FER SOARES Rep #: [id number] : 1940 F 75 From: Sergio Perea MD PCP: Lesly Chairez Status: REG CLI Study: Bilat Scrn Digital AND CAD Date of Exam: 02/29/16 Exam# [id number] Ordering Dr: Lesly Chairez MAMMOGRAPHY - BILATERAL [...] has been no significant change since the prio r study. HPBI/Bilat Scrn Digital AND CAD IMPRESSION: Stable bilateral screening mammogram. Yearly follow-up mammogram recommended. (A) ASSESSMENT CATEGORY: BIRADS Category 1: Negative. A letter regarding these results will be sent to the patient by the facility within 30 days. Approximately 10% of breast c ancers are not detected by mammography. A normal mammogram should not delay biopsy of a clinically suspicious abnormality. [id number] Electronically Signed: Sergio Perea MD at 11:19 EDT Tel [phone], Service support [phone], CC: Lesly Chairez Primary Care Md: Signed 25-Dec-2015 Gastric Emptying Study Result: Comments: See Note; NOTES: [facility] Imaging Services [address] [place] [address] Verdana 4d Gastric Emptying Study MR#: [id number] Acct: [id number] Name: BRISSA WHITE Rep #: [id number] : 1940 F 75 From: Jhon Carreno DO PCP: Akosua Enrique MD Status: REG CLI Study: Gastric Emptying Study Date of Exam: 12/25/15 Exam# [id number] Ordering Dr: Jonathan Blanco MD CLINICAL: 75-year-old [...] J Nu cl Med Tech 38: 186, 2009). Electronically Signed: Jhon Carreno DO at 7:59 EDT Tel , Service support [phone], CC: Akosua Enrique MD; Jonathan Oates Primary Care Md: Signed 15-Nov-2015 Emergency Department Summary Result: Comments: See Note; NOTES: [facility] Medical Records [facility] [address] [facility] [place] [address] Emergency Department Summary MR#: [id number] Acct: [id number] Name: BRISSA SOARES Rep #: [id number] : 1940 75 From: Eladio Mai MD [...] Parul Saunders C: Akosua Oates MD T: [facility] JOB: [id number] 11/15/152037 <Electronically signed by Eladio Mai MD> Date Eladio Mai MD Cosigner Signature (If Indicated): Date CC: Akosua Enrique MD; Jonathan Oates Date Dictated: 11/15/151620 Date Transcribed: 11/15/151620 Primary Care Md: Signed 15-Nov-2015 Discharge Instruction Result: Comments: See Note; NOTES: [facility] Medical Records Department [address] [place] [address] Discharge Instruction 11/15/151617 MR#: [id number] Acct: [id number] Name: BARTBRISSA Rep #: [id number] : 1940 75 From: Eladio Mai MD [...] problems, contact your doctor. Call [facility] ([phone]) or report to the closest Emergency Room. Call 911 if necessary. 11/15/151620 <Electronically signed by Eladio Mai MD> Date Eladio Villanueva gnradhames Signature (If Indicated): Date _ CC: Akosua Enrique MD 26-Sep-2015 Brain/Head without Contrast Result: Comments: See Note; NOTES: [facility] Imaging Services [address] [place] [address] Nisreendana 4d Brain/Head without Contrast MR#: [id number] Acct: [id number] Name: BRISSA SOARES Rep #: [id number] : 1940 F 75 From: Garry Knowles DO PCP: Akosua Enrique MD Status: REG ER Study: Brain/Head without Contrast Date of Exam: 09/26/15 Exam# [id number] Glendy horn Dr: Jacques Hunt MD STUDY: CT BRAIN [...] at 21:04 EDT Tel , Service support [phone], F [phone] CC: Akosua Enrique MD; Jacques Hunt MD Primary Care Md: Signed 03-Aug-2015 Shoulder min 2 Views Result: Comments: See Note; NOTES: [facility] Imaging Services [address] [place] [address] Verdana 4d Shoulder min 2 Views MR#: [id number] Acct: [id number] Name: BRISSA FERNANDO Rep #: [id number] : 1940 F 75 From: Sergio Perea MD PCP: Akosua Enrique MD Status: REG CLI Study: Shoulder min 2 Views Date of Exam: 08/03/15 Exam# [id number] Ordering Dr: Lesly Huang sa STUDY: X-RAY [...] Sergio Perea MD at 11:31 EST Tel [phone], Service support [phone], RAD/Shoulder min 2 Views IMPRESSION: 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 Electronically Signed: Sergio Perea MD at 11:31 EST Tel [phone], Service support [phone], CC: Lesly Chairez; Akosua Enrique MD Primary Care Md: Signed 16-Feb-2015 Bilat Scrn Digital AND CAD Result: Comments: See Note; NOTES: [facility] Imaging Services [address] [place] [address] Breast Imaging Report MR#: [id number] Acct: [id number] Name: BRISSA SOARES Rep # : [id number] : 1940 F 74 From: Sergio Perea MD PCP: Akosua Enrique MD Status: REG CLI Study: Bilramin Florezn Digital AND CAD Date of Exam: 02/16/15 Exam# [id number] Ordering Dr: Akosua Enrique MD MAMMOGRAPHY - [...] Sergio Perea MD at 10:27 EDT Tel [phone], Service support [phone], CC: Akosua Enrique MD Primary Care Md: Signed 06-Feb-2014 Luci Gresham Digital & CAD Result: Comments: See Note; NOTES: [facility] Imaging Services [address] [place] [address] Breast Imaging Report MR#: [id number] Acct: [id number] Name: BRISSA SOARES Rep #: [id number] : 1940 F 73 From: Sergio Perea MD PCP: Akosua Enrique MD Status: REG CLI Exam# [id number] Ordering Dr: Akosua Enrique MD MAMMOGRAPHY - [...] MD at 11:35 EDT , Service support [phone], CC: Akosua Enrique MD Primary Care Md: Signed 25-Apr-2013 Dexa Bone Density Study (HP) Result: Comments: See Note; NOTES: [facility] Imaging Services [address] [place] [address] Bone Density Report MR#: [id number] Acct: [id number] Name: BRISSA SOARES Rep #: [id number] : 1940 F 72 From: Sergio Perea MD PCP: Akosua Enrique MD Status: REG CLI Study: Dexa Bone Density Study () Date of Exam: 04/25/13 Exam# [id number] Ordering Dr: Akosua Enrique MD STUDY: DUAL [...] April 25, 2013 at 3:13:26 PM EST [phone] Electronically Signed GP/GP If you are the referring physician and would like to consult with the radiologist who provided this interpretati on, please contact Sergio Perea M.D. at [phone]. If this radiologist is unavailable, you will be directed to another radiologist to assist. If you are a patient with a question regarding this report, please contact your referring physician directly. Professional Interpretation Provided By: [place], Phone , These documents contain legally protecte [...] of these documents. CC: Akosua Enrique MD Primary Care Md: Signed Immunization Name Dates Details Influenza (3 [...] smoker Vital Signs Date Test Result Details :34 Temperature 97.2 f Comments: Method: Temporal Pulse 98 /min Comments: Pattern: Regular Respiration Rate 18 /min Comments: Pattern: Unlabored O2 SAT 91 % Comments: Room air BP Systolic 132 mm[Hg] Comments: Patient Position: Sitting; Cuff Location: Left Arm; Cuff Size: Standard BP Diastolic 68 mm[Hg] Comments: Patient Position: Sitting; Cuff Location: Left Arm; Cuff Size: Standard Weight 170.5 lb Height 61 in Body Mass Index Calculated 32.22 kg/m2 Body Surface Area Calculated 1.77 m2 :36 Temperature 98.6 f Comments: Method: Temporal Pulse 90 /min Comments: Pattern: Regular Respiration Rate 16 /min Comments: Pattern: Unlabored O2 SAT 98 % Comments: Room air BP Systolic 123 mm[Hg] Comments: Patient Position: Sitting; Cuff Location: Left Arm; Cuff Size: Standard BP Diastolic 79 mm[Hg] Comments: Patient Position: Sitting; Cuff Location: Left Arm; Cuff Size: Standard Weight 172.25 lb Height 61 in Body Mass Index Calculated 32.55 kg/m2 Body Surface Area Calculated 1.77 m2 :39 Temperature 97.6 f Comments: Method: Temporal Pulse 83 /min Comments: Pattern: Regular Respiration Rate 16 /min Comments: Pattern: Unlabored O2 SAT 96 % Comments: Room air BP Systolic 120 mm[Hg] Comments: Patient Position: Sitting; Cuff Location: Left Arm; Cuff Size: Standard BP Diastolic 66 mm[Hg] Comments: Patient Position: Sitting; Cuff Location: Left Arm; Cuff Size: Standard Weight 168.25 lb Height 61 in Body Mass Index Calculated 31.79 kg/m2 Body Surface Area Calculated 1.76 m2 :28 Temperature 98 f Comments: Method: Temporal [...] kg/m2 Body Surface Area Calculated 1.71 m2 00-Xsm-077259:23 Temperature 97.7 f Pulse 74 /min Comments: [...] kg/m2 Body Surface Area Calculated 1.92 m2 32-Jvi-027554:23 Temperature 97.8 f Comments: Method: Oral Pulse [...] kg/m2 Body Surface Area Calculated 2.01 m2 : Temperature 98.1 f Comments: Method: Oral Pulse [...] 0.00 cm Results Date Description Value Details :34 HgA1C , Office (86174) HgA1C , Office 5.4 % (Normal) Range: 4.6 - 7.1 :34 Blood Glucose , Office (98676) Blood Glucose , Office 99 (Normal) 67-Idd-314039:50 Prealbumin Comments: [facility] [address] [place], [address] PREALBUMIN 21.8 mg/dL (Normal) Range: 20.0-40.0 18-Zvs-486887:45 Culture, Deep Wound Comments: [facility] [address] [place], [address] CUDW See Note (Normal) Comments: Gram StainGram Stain No organisms seen Wound CultureNo growth aerobically. Cult, AnaerobicNo growth in 5 days. 5-Ime-885395:32 CALCIFEDIOL (32163) Comments: PATIENT WAS FASTINGPERFORMED BY: [employer]gedIn Gbpuxg8679 [facility] [id number] Vitamin D, 25-Hydroxy 37.8 ng/mL (Normal) Range: 30.0-100.0 Comments: Vitamin D deficiency has been defined by the [place] of[place]icine and an Endocrine Society practice guideline as alevel of serum 25-OH vitamin D less than 20 ng/mL (1,2).The Endocrine Society went on to further define vitamin Dinsufficiency as a level between 21 and 29 ng/mL (2).1. IOM ([place] of Medicine). 2010. Dietary reference intakes for calcium and D. [place]: The National Academies Press.2. Tono MF, Jonatan NC, Fabiola HUANG, et al. Evaluation, treatment, and prevention of vitamin D deficiency: an Endocrine Society clinical practice guideline. JCEM. 2010; 96(7):1911-30. 42-Pvw-917089:39 MICROALBUMIN: CREATININE RATIO Comments: PATIENT WAS FASTINGPERFORMED BY: FixberInspira Medical Center WoodburyQgauwm6616 [facility] [id number] (52688) AND (96710) Alb/Creat Ratio 6.6 {mg/g_creat} (Normal) Range: 0.0-30.0 Albumin, Urine 3.5 ug/mL (Normal) Creatinine, Urine 53.0 mg/dL (Normal) 30-Bre-082259:39 TSH (26517) Comments: PATIENT WAS FASTINGPERFORMED BY: Vita ProductsInspira Medical Center WoodburyAfeqvf5375 [facility] [id number] TSH 1.080 {uIU/mL} (Normal) Range: 0.450-4.500 49-Xew-714820:39 CBC, Platelets & Auto Diff Comments: PATIENT WAS FASTINGPERFORMED BY: [facility] CenterMx OrthopedicsInspira Medical Center WoodburyBppewh5829 [facility] [id number] (41250) Immature Grans (Abs) 0.0 {x10E3/uL} (Normal) Range: [...] 3.77-5.28 WBC 6.2 {x10E3/uL} (Normal) Range: 3.4-10.8 52-Fyv-854800:39 Metabolic Panel, Comprehensive Comments: PATIENT WAS FASTINGPERFORMED BY: FixberInspira Medical Center WoodburyVmyxqb2338 [facility] [id number] (35248) ALT (SGPT) 12 [iU]/L (Normal) Range: 0-32 [...] 8-27 Glucose 88 mg/dL (Normal) Range: 65-99 30-Aeo-626218:39 LIPID PANEL (56147) Comments: PATIENT WAS FASTINGPERFORMED BY: LabCoInspira Medical Center WoodburyQqinod1016 [facility] [id number] LDL/HDL Ratio 1.1 {ratio} (Normal) Range: 0.0-3.2 Comments: LDL/HDL Ratio Men Women 1/2 Avg.Risk 1.0 1.5 Av g.Risk 3.6 3.2 2X Avg.Risk 6.2 5.0 3X Avg.Risk 8.0 6.1 LDL Cholesterol Calc 82 mg/dL (Normal) Range: 0-99 VLDL Cholesterol Jessica 12 mg/dL (Normal) Range: 5-40 HDL Cholesterol 77 mg/dL (Normal) Triglycerides 62 mg/dL (Normal) Range: 0-149 Cholesterol, Total 171 mg/dL (Normal) Range: 100-199 3-Iru-763922:16 Basic Metabolic Panel (8) Comments: PATIENT NOT FASTINGPERFORMED BY: [employer] Rioqyu3036 [facility] [id number] Calcium 9.8 mg/dL (Normal) Range: 8.7-10.3 Carbon Dioxide, Total 24 mmol/L (Normal) Range: 18-29 Comments: Effective November 13, 2017 Carbon Dioxide, Total reference interval will be changing to: Age Male Female 0 days - 30 days 16 - 16 - 31 days - 1 year 15 - 25 15 - 25 2 years - 5 years 17 - 26 17 - 26 6 y ears - 12 years 19 - 19 - 27 >12 years 20 - 20 - 29 Chloride 102 mmol/L (Normal) Range: 96-106 Potassium 4.8 mmol/L (Normal) Range: 3.5-5.2 Sodium 141 mmol/L (Normal) Range: 134-144 BUN/Creatinine Ratio 18 (Normal) Range: 12-28 eGFR If Africn Am 86 mL/min/1.73 (Normal) eGFR If NonAfricn Am 74 mL/min/1.73 (Normal) Creatinine 0.77 mg/dL (Normal) Range: 0.57-1.00 BUN 14 mg/dL (Normal) Range: 8-27 Glucose 76 mg/dL (Normal) Range: 65-99 5-Wsm-691672:16 CBC With Differential/Platelet Comments: PATIENT NOT FASTINGPERFORMED BY: Medical DepotCo Ofovwd5225 [facility] [id number] Immature Grans (Abs) 0.0 {x10E3/uL} (Normal) Range: [...] 3.77-5.28 WBC 6.5 {x10E3/uL} (Normal) Range: 3.4-10.8 5-Exr-932943:30 Metabolic Panel, Basic (15984) Comments: PATIENT WAS FASTINGPERFORMED BY: [employer] LabCoPoliglotaEmouow9178 [facility] [id number] Calcium 9.6 mg/dL (Normal) Range: 8.7-10.3 Carbon Dioxide, Total 24 mmol/L (Normal) Range: 20-29 Chloride 103 mmol/L (Normal) Range: 96-106 Potassium 4.3 mmol/L (Normal) Range: 3.5-5.2 Sodium 142 mmol/L (Normal) Range: 134-144 BUN/Creatinine Ratio 21 (Normal) Range: 12-28 eGFR If Africn Am 94 mL/min/1.73 (Normal) eGFR If NonAfricn Am 82 mL/min/1.73 (Normal) Creatinine 0.71 mg/dL (Normal) Range: 0.57-1.00 BUN 15 mg/dL (Normal) Range: 8-27 Glucose 85 mg/dL (Normal) Range: 65-99 5-Rlz-150118:30 CBC, Platelets & Auto Diff Comments: PATIENT WAS FASTINGPERFORMED BY: [employer] [facility] Ckmqjg8821 Chow[address] [facility] [id number] (72683) Immature Grans (Abs) 0.0 {x10E3/uL} (Normal) Range: 0.0-0.1 Immature Granulocytes 0 % (Normal) Baso (Absolute) 0.0 {x10E3/uL} (Normal) Range: 0.0-0.2 Eos (Absolute) 0.3 {x10E3/uL} (Normal) Range: 0.0-0.4 Monocytes(Absolute) 0.5 {x10E3/uL} (Normal) Range: 0.1-0.9 Lymphs (Absolute) 3.1 {x10E3/uL} (Normal) Range: 0.7-3.1 Neutrophils (Absolute) 2.7 {x10E3/uL} (Normal) Range: 1.4-7.0 Basos 1 % (Normal) Eos 4 % (Normal) Monocytes 8 % (Normal) Lymphs 46 % (Normal) Neutrophils 41 % (Normal) Platelets 222 {x10E3/uL} (Normal) Range: 150-379 RDW 13.2 % (Normal) Range: 12.3-15.4 MCHC 32.1 g/dL (Normal) Range: 31.5-35.7 MCH 31.3 pg (Normal) Range: 26.6-33.0 MCV 97 fL (Normal) Range: 79-97 Hematocrit 41.4 % (Normal) Range: 34.0-46.6 Hemoglobin 13.3 g/dL (Normal) Range: 11.1-15.9 RBC 4.25 {x10E6/uL} (Normal) Range: 3.77-5.28 WBC 6.8 {x10E3/uL} (Normal) Range: 3.4-10.8 4-Ssu-682437:18 FECAL OCCULT- Tubes sent home (72526) FECAL OCCULT HGB ASSAY, QUAL, 1-3 SIMULTANEOU negative (Normal) 0-Ina-745181:56 HgA1C , Office (41999) HgA1C , Office 5.2 % (Normal) Range: 4.6 - 7.1 :56 Blood Glucose , Office (60332) Blood Glucose , Office 81 (Normal) 08-Nqa-302348:28 VITAMIN B12 AND FOLATES Comments: PATIENT WAS FASTINGPERFORMED BY: [place] [id number] (48393) Folate (Folic Acid), Serum >20.0 ng/mL (Normal) Comments: A serum folate concentration of less than 3.1 ng/mL isconsidered to represent clinical deficiency. Vitamin B12 171 pg/mL (Abnormal) Range: 232-1245 40-Lih-233605:28 CALCIFEDIOL (92919) Comments: PATIENT WAS FASTINGPERFORMED BY: [facility]6370 [facility] [id number] Vitamin D, 25-Hydroxy 22.4 ng/mL (Abnormal) Range: 30.0-100.0 Comments: Vitamin D deficiency has been defined by the [place] of[place]icine and an Endocrine Society practice guideline as alevel of serum 25-OH vitamin D less than 20 ng/mL (1,2).The Endocrine Society went on to further define vitamin Dinsufficiency as a level between 21 and 29 ng/mL (2).1. IOM ([place] of [employer]). 2010. Dietary reference intakes for calcium and D. [place]: The National Academies Press.2. Tono MF, Jonatan NC, Fabiola HUANG, et al. Evaluation, treatment, and prevention of vitamin D deficiency: an Endocrine Society clinical practice guideline. JCEM. 2010; 96(7):1911-30. 68-Qkn-729970:28 MICROALBUMIN: CREATININE RATIO Comments: PATIENT WAS FASTINGPERFORMED BY: [facility]ot[facility] Center6370 [facility] [id number] (92472) AND (36708) Alb/Creat Ratio <4.0 {mg/g_creat} (Normal) Range: 0.0-30.0 Albumin, Urine <3.0 ug/mL (Normal) Creatinine, Urine 74.9 mg/dL (Normal) 91-Uzl-129784:28 TSH (87135) Comments: PATIENT WAS FASTINGPERFORMED BY: [facility]6370 [facility] [id number] TSH 1.070 {uIU/mL} (Normal) Range: 0.450-4.500 28-Upa-265591:28 CBC, Platelets & Auto Diff Comments: PATIENT WAS FASTINGPERFORMED BY: [facility]6370 [facility] [id number] (31728) Immature Grans (Abs) 0.0 {x10E3/uL} (Normal) Range: [...] 3.77-5.28 WBC 5.6 {x10E3/uL} (Normal) Range: 3.4-10.8 37-Wxw-679403:28 Metabolic Panel, Comprehensive Comments: PATIENT WAS FASTINGPERFORMED BY: [facility]6370 [facility] [id number] (49268) ALT (SGPT) 16 [iU]/L (Normal) Range: 0-32 [...] Glucose, Serum 82 mg/dL (Normal) Range: 65-99 81-Vox-400677:28 Lipid Panel (64585) Comments: PATIENT WAS FASTINGPERFORMED BY: LabCoInspira Medical Center WoodburyFnyywg4742 [facility] [id number] LDL/HDL Ratio 1.3 {ratio_units} (Normal) Range: 0.0-3.2 Comments: LDL/HDL Ratio Men Women 1/2 Avg.Risk 1.0 1.5 Av g.Risk 3.6 3.2 2X Avg.Risk 6.2 5.0 3X Avg.Risk 8.0 6.1 LDL Cholesterol Calc 101 mg/dL (Abnormal) Range: 0-99 VLDL Cholesterol Jessica 11 mg/dL (Normal) Range: 5-40 HDL Cholesterol 79 mg/dL (Normal) Triglycerides 53 mg/dL (Normal) Range: 0-149 Cholesterol, Total 191 mg/dL (Normal) Range: 100-199 70-Ghq-438799:55 Urinalysis, Office (45398) UA - LEUKOCYTE ESTERASE Small (Normal) UA [...] Negative (Normal) :42 Blood Glucose , Office (14911) Comments: 91 Blood Glucose , Office 91 (Normal) :42 HgA1C , Office (52553) HgA1C , Office 5.1 % (Normal) Range: 4.6 - 7.1 :31 HgA1C , Office (83917) HgA1C , Office 5.2 % (Normal) Range: 4.6 - 7.1 :31 Blood Glucose , Office (99523) Blood Glucose , Office 78 (Normal) :13 Anaerobic & Aerobic Comments: PATIENT NOT FASTINGPERFORMED BY: [facility] Uqmezz4397 [facility] [id number] Information: LEFT LEG SRC:FL Culture (73572) Antimicrobial MIHEAD (Normal) Comments: S = Susceptible; [...] Final report (Normal) :51 HgA1C , Office (92579) HgA1C , Office 5.2 % (Normal) Range: 4.6 - 7.1 :51 Blood Glucose , Office (39400) Blood Glucose , Office 83 (Normal) 11-Ghm-840532:21 LIPID PANEL (09073) Comments: PATIENT WAS FASTINGPERFORMED BY: [employer] Gjqpgz0618 [facility] [id number] LDL/HDL Ratio 1.5 {ratio_units} (Normal) Range: 0.0-3.2 Comments: LDL/HDL Ratio Men Women 1/2 Avg.Risk 1.0 1.5 Av g.Risk 3.6 3.2 2X Avg.Risk 6.2 5.0 3X Avg.Risk 8.0 6.1 LDL Cholesterol Calc 88 mg/dL (Normal) Range: 0-99 VLDL Cholesterol Jessica 21 mg/dL (Normal) Range: 5-40 HDL Cholesterol 59 mg/dL (Normal) Triglycerides 106 mg/dL (Normal) Range: 0-149 Cholesterol, Total 168 mg/dL (Normal) Range: 100-199 46-Ami-159740:21 CBC, Platelets & Auto Diff Comments: PATIENT WAS FASTINGPERFORMED BY: Teleborder6370 [facility] [id number] (12138) Immature Grans (Abs) 0.0 {x10E3/uL} (Normal) Range: [...] 3.77-5.28 WBC 6.0 {x10E3/uL} (Normal) Range: 3.4-10.8 66-Ghn-187915:21 Metabolic Panel, Comprehensive Comments: PATIENT WAS FASTINGPERFORMED BY: LabCoInspira Medical Center WoodburyAhdfmm7038 [facility] [id number]; OV 11/28 (25011) ALT (SGPT) 8 [iU]/L (Normal) Range: 0-32 [...] Glucose, Serum 73 mg/dL (Normal) Range: 65-99 07-Jfs-794352:21 TSH (98527) Comments: PATIENT WAS FASTINGPERFORMED BY: [employer] Dpuhcs2262 [facility] [id number] TSH 0.748 {uIU/mL} (Normal) Range: 0.450-4.500 :33 HgA1C , Office (87770) HgA1C , Office 5.4 % (Normal) Range: 4.6 - 7.1 :33 Blood Glucose , Office (28040) Blood Glucose , Office 76 (Normal) 3-Xsf-465588:20 Microscopic Examination Comments: PATIENT WAS FASTINGPERFORMED BY: [employer] Kihdwc0905 [facility] [id number] Bacteria Few (Normal) Mucus Threads Present (Normal) Epithelial Cells (non renal) 0-10 {/hpf} (Normal) Range: 0 - 10 RBC 0-2 {/hpf} (Normal) Range: 0 - 2 WBC 11-30 {/hpf} (Abnormal) Range: 0 - 5 4-Ytm-033991:20 MICROALBUMIN: CREATININE RATIO Comments: PATIENT WAS FASTINGPERFORMED BY: [employer] Irsyto2570 [facility] [id number] (58213) AND (25885) Microalb/Creat Ratio 16.3 {mg/g_creat} (Normal) Range: 0.0-30.0 Microalbumin, Urine 21.2 ug/mL (Normal) Creatinine, Urine 130.4 mg/dL (Normal) 5-Qtd-974872:20 URINALYSIS (69527) Comments: PATIENT WAS FASTINGPERFORMED BY: [employer] Lxouyg1105 [facility] [id number] Microscopic Examination See below: (Normal) Comments: Microscopic was indicated and was performed. Nitrite, Urine Negative (Normal) Urobilinogen,Semi-Qn 0.2 mg/dL (Normal) Range: 0.2-1.0 Bilirubin Negative (Normal) Occult Blood Negative (Normal) Ketones Negative (Normal) Glucose Negative (Normal) Protein Negative (Normal) WBC Esterase 1+ (Abnormal) Appearance Clear (Normal) Urine-Color Yellow (Normal) pH 6.0 (Normal) Range: 5.0-7.5 Specific [employer] 1.022 (Normal) Range: 1.005-1.030 4-Amy-102095:20 Metabolic Panel, Comprehensive Comments: PATIENT WAS FASTINGPERFORMED BY: LILIANA [facility] Tifxbm7374 Chowdary [facility] HospitalNathanScion[facility] [id number] (20496) ALT (SGPT) 9 [iU]/L (Normal) Range: 0-32 [...] Glucose, Serum 80 mg/dL (Normal) Range: 65-99 9-Jxz-495927:20 Lipid Panel (12513) Comments: PATIENT WAS FASTINGPERFORMED BY: LILIANA LabCoInspira Medical Center WoodburyAkqwvw7139 [facility] [id number] LDL/HDL Ratio 1.4 {ratio_units} (Normal) Range: 0.0-3.2 Comments: LDL/HDL Ratio Men Women 1/2 Avg.Risk 1.0 1.5 Av g.Risk 3.6 3.2 2X Avg.Risk 6.2 5.0 3X Avg.Risk 8.0 6.1 LDL Cholesterol Calc 98 mg/dL (Normal) Range: 0-99 VLDL Cholesterol Jessica 19 mg/dL (Normal) Range: 5-40 HDL Cholesterol 70 mg/dL (Normal) Triglycerides 95 mg/dL (Normal) Range: 0-149 Cholesterol, Total 187 mg/dL (Normal) Range: 100-199 5-Qsg-718570:20 CBC, Platelets & Auto Diff Comments: PATIENT WAS FASTINGPERFORMED BY: Teleborder6370 [facility] [id number] (14335) Immature Grans (Abs) 0.0 {x10E3/uL} (Normal) Range: [...] 5.4 {x10E3/uL} (Normal) Range: 3.4-10.8 :20 CALCIFEDIOL (89925) Comments: PATIENT WAS FASTINGPERFORMED BY: FixberCrownpoint Healthcare FacilityVhkhks8400 [facility] [id number] Vitamin D, 25-Hydroxy 30.8 ng/mL (Normal) Range: 30.0-100.0 Comments: Vitamin D deficiency has been defined by the [place] ofCh[facility] Hospitalcine and an Endocrine Society practice guideline as alevel of serum 25-OH vitamin D less than 20 ng/mL (1,2).The Endocrine Society went on to further define vitamin Dinsufficiency as a level between 21 and 29 ng/mL (2).1. IOM ([place] of Medicine). 2010. Dietary reference intakes for calcium and D. [place]: The National Academies Press.2. Tono MF, Jonatan NC, Fabiola HUANG, et al. Evaluation, treatment, and prevention of vitamin D deficiency: an Endocrine Society clinical practice guideline. JCEM. 2010; 96(7):1911-30. :53 HgA1C , Office (49431) HgA1C , Office 5.3 % (Normal) Range: 4.6 - 7.1 :53 Blood Glucose , Office (09831) Blood Glucose , Office 79 (Normal) :38 HgA1C , Office (76248) HgA1C , Office 5.5 % (Normal) Range: 4.6 - 7.1 :02 PT (Prothrobim Time) Comments: so; PATIENT NOT FASTINGPERFORMED BY: [facility]6370 [facility] [id number] Information: [id number] (86552) Prothrombin Time 20.8 {sec} (Abnormal) Range: 9.1-12.0 INR 2.0 (Abnormal) Range: 0.8-1.2 Comments: Reference interval is for non-anticoagulated patients. . Suggested INR therapeutic range for Vitamin K anta gonist therapy: Standard Dose (moderate intensity therapeutic range): 2.0 - 3.0 Higher intensity therapeutic range 2.5 - 3.5 70-Ajl-943688:07 CBC W/Diff, Automated Comments: [facility] [address] [place], [place], [id number] ; Dr oates Absolute Lymph 2.18 {X10_3/ul} [...] K/mm3 (Normal) Range: 4.4-11.0 :36 CREATININE CLEARANCE (99061) Comments: PATIENT NOT FASTINGPERFORMED BY: [facility]6370 [facility] [id number] Creatinine Clearance 61 mL/min (Abnormal) Range: 88-128 Comments: The above range is based on 1.73 square meter average body surfacearea. Creatinine, Ur 24hr 575.7 {mg/24_hr} (Abnormal) Range: 800.0-1800.0 Creatinine, Urine 60.6 mg/dL (Normal) :36 Total Protein,24 Hour Urine Comments: PATIENT NOT FASTINGPERFORMED BY: [facility]6370 [facility] [id number] (38249) Prot,24hr calculated 191.0 {mg/24_hr} (Abnormal) Range: 30.0-150.0 Protein,Total,Urine 20.1 mg/dL (Normal) :36 METABOLIC PANEL, COMPREHENSIVE Comments: PATIENT NOT FASTINGPERFORMED BY: [place] 5117770 [facility] [id number] (96833) ALT (SGPT) 8 [iU]/L (Normal) Range: 0-32 [...] auto diff Comments: PATIENT NOT FASTINGPERFORMED BY: LabCoInspira [facility] Center WoodburyLkznjn4568 [facility] [id number] Information: [id number] (65358) Immature Grans (Abs) 0.0 {x10E3/uL} (Normal) Range: [...] (Normal) Range: 3.4-10.8 :44 HgA1C , Office (64699) HgA1C , Office 5.2 % (Normal) Range: 4.6 - 7.1 :14 HH, Hemoglobin AND Hematocrit Comments: [facility] [address] [place], [place], [address] HCT 35.4 % (Abnormal) Range: 37-47 HGB 11.3 g/dL (Abnormal) Range: 12.0-15.0 96-Naf-752646:25 Basic Metabolic Profile (BMP) Comments: 'TROP' Serial specimen #1, #2, #3, or #4: [facility] [address]ami[address] [place], [address] GAP 3 (Abnormal) Range: 5-15 CO2 29.0 [...] <126 mg/dLsuggests IMPAIRED HOMEOSTASIS per A.D.A. criteria. 83-Aqp-887492:25 CBC W/Diff, Automated Comments: [facility] [address] [place], [place], [address] Absolute Lymph 2.14 {X10_3/ul} (Normal) Range: 0.83-4.51 [...] 4.2-5.4 WBC 5.7 K/mm3 (Normal) Range: 4.4-11.0 09-[id number]:25 Troponin-I Comments: 'TROP' Serial specimen #1, #2, #3, or #4: [address] [place] [address] [id number] [place], [place], [id number] TROPONIN-I < 0.02 ng/mL (Normal) Comments: TROPONIN-I EXPECTED VALUES <0.05 NEGATIVE 0.06 - 0.59 AT RISK OF OK > OR = 0.60 SUGGEST OK 60-Ykp-[id number]:25 METABOLIC PANEL, COMPREHENSIVE Comments: PATIENT NOT FASTINGPERFORMED BY: [id number] [id number] ([id number]) ALT (SGPT) 11 [iU]/L (Normal) Range: 0-32 [...] be decreased and K increased. Clinicalcorrelation indicated. 95-Xyj-779373:25 CBC with auto diff Comments: PATIENT NOT FASTINGPERFORMED BY: [facility] Ygtwag6787 [facility] [id number] Information: [id number] ([id number]) Immature Grans (Abs) 0.0 {x10E3/uL} (Normal) Range: [...] 3.4-10.8 :11 HH, Hemoglobin AND Hematocrit Comments: [facility] [address] [place], [address] ; ordred by another doctor [facility] HCT 24.1 % (Abnormal) Range: 37-47 HGB 7.9 g/dL (Abnormal) Range: 12.0-15.0 :25 Urinalysis, Complete Comments: How was Urine Obtained? RN [facility] Axbnmshqia[address] [place], [address] MUCUS, URINE 0 SEEN {/hpf} [...] Serial specimen #1, #2, #3, or #4: [facility] Pfmhjeimnz230[address] [facility] [address] [place], [place], [phone] LENNY 29 U/L (Normal) Range: 25-115 : CBC W/Diff, Automated Comments: [facility] Rtucerneix[address] [facility] [address] [place], [place], [phone] Absolute Lymph 1.14 {X10_3/ul} (Normal) Range: 0.83-4.51 [...] Serial specimen #1, #2, #3, or #4: 1[facility] [address] [place], [place], [address] GAP 11 (Normal) Range: 5-15 CO2 22.0 [...] per A.D.A. criteria. :00 Lactic Acid Comments: [facility] [address] [place], [place], [phone] LACTIC ACID 3.8 mmol/L (Abnormal) Range: 0.4-2.0 :00 Lipase Comments: 'TROP' Serial specimen #1, #2, #3, or #4: [address] [place] [address] [place], [place], [phone] LIPASE 84 U/L (Normal) Range: 73-393 :00 Partial Thromboplast Time Comments: [place] [address] [place], [place], [address] PTT 30.2 s (Normal) Range: 24.1-36.2 :00 Prothrombin Time w/INR Comments: [place] [address] [place], [place], [address] INR 3.7 (Abnormal) Comments: CRITICAL VALUE REPEATED AND VERIFIED. CALLED TO [place] [phone] Nia Delong.RESULTS READ BACK BY SAME . PROTIME 35.8 s (Abnormal) Range: 11.7-14.9 12-Sep-20153:00 Troponin-I Comments: 'TROP' Serial specimen #1, #2, #3, or #4: [address] [place] [address] [place], [place], [address] TROPONIN-I 0.05 ng/mL (Normal) Comments: TROPONIN-I EXPECTED VALUES <0.05 NEGATIVE 0.06 - 0.59 AT RISK OF OK > OR = 0.60 SUGGEST OK 69-Qgl-233547:09 INR Fingerstick Comments: [facility] [address] [place], [place] [address] INR ISTAT 1.60 (Normal) Comments: Critical Value > 3.5 46-Nzq-801257:09 Prothrombin Time Fingerstick Comments: [facility] [place] [address] [place] [address] PROTIME ISTAT 19.2 {SEC} (Abnormal) Range: 11.9-14.4 Comments: Reference Range 11.9 - 14.4 13-Hqd-091259:23 URINE CAMERON CULTURE-IDENTIFICATN Comments: PATIENT NOT FASTINGPERFORMED BY: [facility] WoodburyEflwjj3428 [facility] [id number] Information: [id number] ([id number]) Result 1 BETAGB (Abnormal) Comments: Beta hemolytic [...] (CLSI 2011) Urine Final report (Abnormal) Culture,Comprehensive 60-Gqn-282788:05 Urinalysis, Office (81982) UA - LEUKOCYTE ESTERASE Small (Normal) UA - NITRITE Negative (Normal) URINE UROBILINGN HAIDER TIMED Normal mg/dL (Normal) UA - PROTEIN Negative mg/dL (Normal) UA - PH 7 (Normal) UA - BLOOD Hemolyzed Large (Normal) UA - SPECIFIC GRAVITY 1.010 (Normal) UA - KETONES Negative mg/dL (Normal) UA - BILIRUBIN Negative (Normal) UA - GLUCOSE Negative (Normal) 48-Sgf-463136:22 INR Fingerstick Comments: [facility] [place] [address] [place], [place] [id number] INR ISTAT 2.70 (Normal) Comments: Critical Value > 3.5 04-Ker-368985:22 Prothrombin Time Fingerstick Comments: [facility] [place] [address] [place], [place] [phone] PROTIME ISTAT 30.9 {SEC} (Abnormal) Range: 11.9-14.4 Comments: Reference Range 11.9 - 14.4 :37 INR Fingerstick Comments: [place] [address] [place] [address]( INR ISTAT 2.90 (Normal) Comments: Critical Value > 3.5 :37 Prothrombin Time Fingerstick Comments: [place] [address] [place] [address]( PROTIME ISTAT 32.8 {SEC} (Abnormal) Range: 11.9-14.4 Comments: Reference Range 11.9 - 14.4 :41 INR Fingerstick Comments: [place] [address] [place] [address] INR ISTAT 2.50 (Normal) Comments: Critical Value > 3.5 :41 Prothrombin Time Fingerstick Comments: [place] [address] [place] [address]( PROTIME ISTAT 28.4 {SEC} (Abnormal) Range: 11.9-14.4 Comments: Reference Range 11.9 - 14.4 :30 INR Fingerstick Comments: [place] [address] [place] [place] [address]( INR ISTAT 2.40 (Normal) Comments: Critical Value > 3.5 :30 Prothrombin Time Fingerstick Comments: [place] [address] [place] [place] [address]( PROTIME ISTAT 27.3 {SEC} (Abnormal) Range: 11.9-14.4 Comments: Reference Range 11.9 - 14.4 :51 PT (Prothrobim Time) Comments: standing order fingerstick or serum; PATIENT NOT FASTINGPERFORMED BY: [facility] Luudoq2728 [address] [facility] [id number] Information: [id number] ([id number]) Prothrombin Time 33.2 {sec} (Abnormal) Range: 9.1-12.0 INR 3.2 (Abnormal) Range: 0.8-1.2 Comments: Reference interval is for non-anticoagulated patients. . Suggested INR therapeutic range for Vitamin K anta gonist therapy: Standard Dose (moderate intensity therapeutic range): 2.0 - 3.0 Higher intensity therapeutic range 2.5 - 3.5 84-Lvn-359550:05 HgA1C , Office (96530) HgA1C , Office 5.5 % (Normal) Range: 4.6 - 7.1 68-Lim-516922:50 Prothrombin Time w/INR Comments: [facility] [address] [place], [address] INR 2.5 (Normal) PROTIME 26.9 s (Abnormal) Range: 11.7-14.9 38-Pzy-666293:05 Prothrombin Time w/INR Comments: [facility] [address] [place], [address] INR 2.4 (Normal) PROTIME 26.1 s (Abnormal) Range: 11.7-14.9 50-Rrw-909063:31 Prothrombin Time w/INR Comments: [facility] [address] [place], [address] INR 3.1 (Normal) PROTIME 31.9 s (Abnormal) Range: 11.7-14.9 11-Bph-949732:14 Prothrombin Time w/INR Comments: [facility] [address] [place], [address] INR 2.9 (Normal) PROTIME 30.4 s (Abnormal) Range: 11.7-14.9 07-Esk-219024:40 Prothrombin Time w/INR Comments: [facility] [address] [place], [address] INR 2.4 (Normal) PROTIME 26.3 s (Abnormal) Range: 11.7-14.9 19-Fjq-633802:00 PT (Prothrobim Time) Comments: standing order; PATIENT NOT FASTINGPERFORMED BY: [place] [address] [facility] [id number] Information: [id number] (93521) Prothrombin Time 17.3 {sec} (Abnormal) Range: 9.1-12.0 INR 1.7 (Abnormal) Range: 0.8-1.2 Comments: Reference interval is for non-anticoagulated patients. . Suggested INR therapeutic range for Vitamin K anta gonist therapy: Standard Dose (moderate intensity therapeutic range): 2.0 - 3.0 Higher intensity therapeutic range 2.5 - 3.5 15-Chs-432060:00 Hemoglobin Glyclated (HGB A1C) Comments: PATIENT NOT FASTINGPERFORMED BY: [place] [address] [facility] [id number] ([id number]) Hemoglobin A1c 5.7 % (Abnormal) Range: 4.8-5.6 Comments: . Increased risk for diabetes: 5.7 - 6.4 Diabetes: >6.4 Glycemic control for adults with diabetes: <7.0 61-Nbs-699949:34 Prothrombin Time w/INR Comments: Test performed at:[facility] [address] [place] [address] INR 2.3 (Normal) PROTIME 25.4 s (Abnormal) Range: 11.7-14.9 :54 Prothrombin Time w/INR Comments: Test performed at:[facility] [address] [place] [address] INR 2.6 (Normal) PROTIME 27.6 s (Abnormal) Range: 11.7-14.9 49-Bbr-158219:50 PT (Prothrobim Time) Comments: so; PATIENT NOT FASTINGPERFORMED BY: [place] [address] [facility] [id number] Information: [id number] (30511) Prothrombin Time 35.6 {sec} (Abnormal) Range: 9.1-12.0 INR 3.4 (Abnormal) Range: 0.8-1.2 Comments: Reference interval is for non-anticoagulated patients. . Suggested INR therapeutic range for Vitamin K anta gonist therapy: Standard Dose (moderate intensity therapeutic range): 2.0 - 3.0 Higher intensity therapeutic range 2.5 - 3.5 :42 Prothrombin Time w/INR Comments: Test performed at:[facility] [address]wyig[address] [facility] [place] [address] INR 1.9 (Normal) PROTIME 22.2 s (Abnormal) Range: 11.7-14.9 08-Viy-26884:10 Prothrombin Time w/INR Comments: Test performed at:[facility] Q[address]vszmvliu[address] [facility] [place] [address] INR 2.5 (Normal) PROTIME 26.7 s (Abnormal) Range: 11.7-14.9 03-Fdl-946202:49 CBC with auto diff Comments: copy of all labs to Dr. martinez; PATIENT WAS FASTINGPERFORMED BY: [facility] WoodburyRtmijq7017 [facility] [id number] Information: [id number] ([id number]) Immature Grans (Abs) 0.0 {x10E3/uL} (Normal) Range: [...] 6.0 {x10E3/uL} (Normal) Range: 3.4-10.8 :49 CALCIFIDIOL (87938) VIT D 25 Comments: PATIENT WAS FASTINGPERFORMED BY: Fixber Ninudi2144 [facility] [id number] Vitamin D, 25-Hydroxy 28.0 ng/mL (Abnormal) Range: 30.0-100.0 Comments: Vitamin D deficiency has been defined by the [place] [facility] and an Endocrine Society practice guideline as alevel of serum 25-OH vitamin D less than 20 ng/mL (1,2).The Endocrine Society went on to further define vitamin Dinsufficiency as a level between 21 and 29 ng/mL (2).1. IOM ([place] of Medicine). 2010. Dietary reference intakes for calcium and D. [place]: The National Academies Press.2. Tono MF, Jonatan NC, Fabiola HUANG, et al. Evaluation, treatment, and prevention of vitamin D deficiency: an Endocrine Society clinical practice guideline. JCEM. 2010; 96(7):1911-30. :49 MICROALBUMIN: CREATININE RATIO Comments: PATIENT WAS FASTINGPERFORMED BY: [facility] WoodburyAzdrao0767 [facility] [id number]; apt. 03-02-[birth year] ([address]) AND (64796) Microalb/Creat Ratio 23.8 {mg/g_creat} (Normal) Range: 0.0-30.0 Microalbumin, Urine 17.2 ug/mL (Abnormal) Range: 0.0-17.0 Creatinine, Urine 72.3 mg/dL (Normal) Range: 15.0-278.0 :49 METABOLIC PANEL, COMPREHENSIVE Comments: PATIENT WAS FASTINGPERFORMED BY: [employer] [facility] [id number] (10580) ALT (SGPT) 7 [iU]/L (Normal) Range: 0-32 [...] Glucose, Serum 82 mg/dL (Normal) Range: 65-99 13-Vwv-050940:49 LIPID PANEL (54734) Comments: PATIENT WAS FASTINGPERFORMED BY: [employer] [id number] LDL/HDL Ratio 1.0 {ratio_units} (Normal) Range: 0.0-3.2 [...] Cholesterol, Total 149 mg/dL (Normal) Range: 100-199 39-Cnc-889116:26 HgA1C , Office (07816) HgA1C , Office 5.6 % (Normal) Range: 4.6 - 7.1 :26 Blood Glucose , Office (29492) Blood Glucose , Office 102 (Normal) :27 Prothrombin Time w/INR Comments: Test performed at:[facility] [address] [place] [address] INR 3.3 (Normal) PROTIME 33.6 s (Abnormal) Range: 11.7-14.9 :35 Prothrombin Time w/INR Comments: Test performed at:[facility] [address] [place], [place] [address] INR 2.7 (Normal) PROTIME 28.9 s (Abnormal) Range: 11.7-14.9 :18 Prothrombin Time w/INR Comments: Test performed at:[facility] [address] [place], [place] [address] INR 2.5 (Normal) PROTIME 27.0 s (Abnormal) Range: 11.7-14.9 :37 Prothrombin Time w/INR Comments: Test performed at:[facility] [address] [place], [place] [address] INR 2.2 (Normal) PROTIME 24.4 s (Abnormal) Range: 11.7-14.9 :13 Prothrombin Time w/INR Comments: Test performed at:[facility] [address]ns[address] [facility] [place], [place] [address] INR 2.4 (Normal) PROTIME 26.2 s (Abnormal) Range: 11.7-14.9 :48 PT INR 2.4 (Normal) PTP 25.8 s (Abnormal) Range: 11.7-14.9 :43 HgA1C , Office (67674) HgA1C , Office 5.8 % (Normal) Range: 4.6 - 7.1 :43 Blood Glucose , Office (45494) Blood Glucose , Office 98 (Normal) :15 [...] 4.2-5.4 WBC 5.0 K/mm3 (Normal) Range: 4.4-11.0 74-Ses-263270:15 CMP GAP 6 (Normal) Range: 5-15 CO2 [...] 7-18 GLU 80 mg/dL (Normal) Range: 70-110 19-Wvm-585485:15 LIPID VLDL 19 mg/dL (Normal) Range: 5-40 [...] CHOL 130 mg/dL (Normal) Comments: <200 mg/dL Sqshlyqro312-501 mg/dL Borderline>240 mg/dL High Risk 89-Tbd-315733:15 PT INR 2.7 (Normal) PTP 28.2 s (Abnormal) Range: 11.7-14.9 98-Toh-397875:15 [facility] Comments: How was Urine Obtained? CLEAN CATCH [...] Comments: Please note revised PROTIME reference range jabdwpjhd07/14/15. 2-Mnu-808444:27 PT INR 1.6 (Normal) PTP 19.1 s (Abnormal) Range: 11.7-14.9 Comments: Please note revised PROTIME reference range jvoypvssx29/14/15. 15-Vgq-689153:55 HgA1C , Office (01601) HgA1C , Office 6.0 % (Normal) Range: 4.6 - 7.1 :55 Blood Glucose , Office (88950) Blood Glucose , Office 103 (Normal) :55 PT INR 2.3 (Normal) PTP 24.9 s (Abnormal) Range: 11.7-14.9 Comments: Please note revised PROTIME reference range oqcmutdje91/. 9-:51 PT INR 2.1 (Normal) PTP 21.9 [...] CHOL 153 mg/dL (Normal) Comments: <200 mg/dL Uyzswbcdl746-011 mg/dL Borderline>240 mg/dL High Risk TRIG 93 mg/dL (Normal) Range: 0-199 Comments: Serum Triglycerides Reference IntervalNormal <150 mg/dLBorderline high 150 - 199 mg/dLHigh 200 - 499 mg/ dLVery High > or = 500 mg/dL 29-Umt-845248:08 Blood Glucose , Office (57210) Blood Glucose , Office 90 (Normal) 49-Frl-280787:08 HgA1C , Office (75418) HgA1C , Office 6.0 % (Normal) Range: 4.6 - 7.1 84-Qva-647894:10 PT INR 1.9 (Normal) PTP 20.6 s (Abnormal) Range: 11.9-14.4 :07 PT INR 2.5 (Normal) PTP 25.3 s (Abnormal) Range: 11.9-14.4 :01 PT INR 2.0 (Normal) PTP 21.1 s (Abnormal) Range: 11.9-14.4 :06 PT INR 1.1 (Normal) PTP 13.4 s (Normal) Range: 11.9-14.4 :41 PT INR 2.3 (Normal) PTP 23.8 s (Abnormal) Range: 11.9-14.4 :12 HgA1C , Office (60053) HgA1C , Office 6.8 % (Normal) Range: 4.6 - 7.1 :12 Blood Glucose , Office (64958) Blood Glucose , Office 109 (Normal) :20 [...] CHOL 167 mg/dL (Normal) Comments: <200 mg/dL Qhhengamu627-453 mg/dL Borderline>240 mg/dL High Risk TRIG 155 [...] (Prothrobim Time) Comments: PATIENT NOT FASTINGPERFORMED BY: [facility] [employer] [id number] Information: [id number] (47168) Prothrombin Time 18.3 {sec} (Abnormal) Range: 9.1-12.0 INR 1.8 (Abnormal) Range: 0.8-1.2 Comments: Reference interval is for non-anticoagulated patients. . Suggested INR therapeutic range for Vitamin K anta gonist therapy: Standard Dose (moderate intensity therapeutic range): 2.0 - 3.0 Higher intensity therapeutic range 2.5 - 3.5 :06 PT (Prothrobim Time) Comments: PATIENT NOT FASTINGPERFORMED BY: [facility]6370 [facility] [id number] Information: [id number] (00796) Prothrombin Time 29.0 {sec} (Abnormal) Range: 9.1-12.0 INR 2.8 (Abnormal) Range: 0.8-1.2 Comments: Reference interval is for non-anticoagulated patients. . Suggested INR therapeutic range for Vitamin K anta gonist therapy: Standard Dose (moderate intensity therapeutic range): 2.0 - 3.0 Higher intensity therapeutic range 2.5 - 3.5 :23 PT (Prothrobim Time) Comments: PATIENT NOT FASTINGPERFORMED BY: [place] [address] [facility] [id number] Information: [id number],2ND ORDER NO DRAW F EE (01140) Prothrombin Time 31.6 {sec} (Abnormal) Range: 9.1-12.0 INR 3.0 (Abnormal) Range: 0.8-1.2 Comments: Reference interval is for non-anticoagulated patients. . Suggested INR therapeutic range for Vitamin K anta gonist therapy: Standard Dose (moderate intensity therapeutic range): 2.0 - 3.0 Higher intensity therapeutic range 2.5 - 3.5 5-Lcq-838466:23 TSH (69459) Comments: recheck in 3-4 weeks; PATIENT NOT FASTINGPERFORMED BY: [facility]6370 [facility] [id number] TSH 1.150 {uIU/mL} (Normal) Range: 0.450-4.500 8-Tll-186760:23 T4, FREE (THYROXINE) Comments: recheck in 3-4 weeks; PATIENT NOT FASTINGPERFORMED BY: [facility]6370 [facility] [id number] Information: [id number] (90132) T4,Free(Direct) 1.08 ng/dL (Normal) Range: 0.82-1.77 1-Pkq-470936:23 T3, FREE (TRIDOTHYRONINE) (55340) Comments: recheck in 3-4 weeks; PATIENT NOT FASTINGPERFORMED BY: [facility]6370 [facility] [id number] Triiodothyronine,Free,Serum 2.2 pg/mL (Normal) Range: 2.0-4.4 3-Keh-699878:44 PT (Prothrobim Time) Comments: results to Dr Enrique; PATIENT NOT FASTINGPERFORMED BY: [facility]6370 [facility] [id number] Information: [id number] (29009) Prothrombin Time 31.4 {sec} (Abnormal) Range: 9.1-12.0 INR 3.0 (Abnormal) Range: 0.8-1.2 Comments: Reference interval is for non-anticoagulated patients. . Suggested INR therapeutic range for Vitamin K anta gonist therapy: Standard Dose (moderate intensity therapeutic range): 2.0 - 3.0 Higher intensity therapeutic range 2.5 - 3.5 :44 TSH (80129) Comments: PATIENT NOT FASTINGPERFORMED BY: [facility] Iexeqb[address] [place] [id number] TSH 0.139 {uIU/mL} (Abnormal) Range: 0.450-4.500 :44 T4, FREE (THYROXINE) (44845) Comments: PATIENT NOT FASTINGPERFORMED BY: [facility] Dfgedv89[address] [place] [id number] T4,Free(Direct) 1.18 ng/dL (Normal) Range: 0.82-1.77 :44 T3, FREE (TRIDOTHYRONINE) (85474) Comments: PATIENT NOT FASTINGPERFORMED BY: [facility] [facility] [place] [id number] Triiodothyronine,Free,Serum 2.1 pg/mL (Normal) Range: 2.0-4.4 :02 SED RATE ERYTHROCYTE (17697) Comments: PATIENT NOT FASTINGPERFORMED BY: [facility] [facility] [place] [id number] Sedimentation Rate-Westergren 18 mm/h (Normal) Range: 0-40 :02 TSH (98748) Comments: PATIENT NOT FASTINGPERFORMED BY: [facility] Bvurdv8[address] [facility] [place] [id number] TSH 0.358 {uIU/mL} (Abnormal) Range: 0.450-4.500 3-Bey-459801:02 VIKI (ANTINUCLEAR ANTIBODY) Comments: PATIENT NOT FASTINGPERFORMED BY: [facility] Ygbxqn[address] [facility] [place] [id number] (79366) VIKI Direct Negative (Normal) :02 CBC WITH MANUAL DIFF Comments: PATIENT NOT FASTINGPERFORMED BY: [facility] Mphejg8075 [address] [facility] [id number] Information: [id number] (32811) Immature Grans (Abs) 0.0 {x10E3/uL} (Normal) Range: [...] of these values in the reference population. 7-Sex-925520:02 METABOLIC PANEL, COMPREHENSIVE Comments: PATIENT NOT FASTINGPERFORMED BY: [facility] WoodburyZxrikq4812 [facility] [id number] (09332) ALT (SGPT) 11 [iU]/L (Normal) Range: 0-32 [...] Glucose, Serum 94 mg/dL (Normal) Range: 65-99 40-Ntl-484808:20 PT INR 2.0 (Normal) PTP 21.6 s (Abnormal) Range: 11.9-14.4 38-Ssl-789526:24 BILAT SCRN DIGITAL & CAD Radiology Report [...] M.D.January 31, 2013 at 6:48:38 P M [id number] Signed RU/RU If you are the referring physician and would like to consult with theradiologist who provided this interpretation, please contact Taz Stack at [phone]. If this radiologist is unavailable, youwillbe directed to another radiologist to assist. If you are a patient with a question regarding this report, pleasecontactyour referring physician dire ctly. Professional Interpretation Provided By: [employer], Phone , These documents contain legally protected [...] Jhon Lazcano :53 Blood Glucose , Office (91287) Blood Glucose , Office 115 (Normal) :53 HgA1C , Office (31865) HgA1C , Office 6.1 % (Normal) Range: 4.6 - 7.1 :52 PT INR 1.7 (Normal) PTP 18.6 s (Abnormal) Range: 11.9-14.4 :56 Aerobic Bacterial Culture Comments: PERFORMED BY: [facility]6370 [facility] [id number] Information: SRC:UB Result 1 Mixed skin yaakov (Normal) Aerobic Bacterial Culture Final report (Normal) :37 PT INR 2.5 (Normal) PTP 25.6 s (Abnormal) Range: 11.9-14.4 :03 HgA1C , Office (39633) HgA1C , Office 7.1 % (Normal) Range: [...] D deficiency has been defined by the [place] ofMedicine and an Endocrine Society practice guideline as alevel of serum 25-OH vitamin D less than 20 ng/mL (1,2).The Endocrine Society went on to further define vitamin Dinsufficiency as a level between 21 and 29 ng/mL (2).1. IOM ([place] of Medicine). 2010. Dietary reference intakes for calcium and D. [place]: The National Academies Press.2. Tono MF, Jonatan DYER, Fabiola HUANG et al. Evaluation, treatment, and prevention of vitamin D deficiency: an Endocrine Society clinical practice guideline. JCEM. 2010; 96(7): 1911-30.Performed at: [address] [id number] Director: Tyrese Arora PhD, Phone: [phone] :[phone] PT INR 2.7 (Normal) PTP 26.4 [...] (Abnormal) Range: 11.9-14.4 :28 HgA1C , Office (35214) HgA1C , Office 6.1 % (Normal) Range: 4.6 - 7.1 :28 Blood Glucose , Office (29210) Blood Glucose , Office 154 (Normal) 00-Bad-415882:15 PT INR 2.5 (Normal) PTP 25.2 s [...] Perea M.D.January 30, 2012 at 12:54:04 PM [id number] Signed GP/GP If you are the referring physician and would like to consult with t heradiologist who provided this interpretation, please contact Taz Morrison at [phone]. If this radiologist is unavailable, youwill be directed to another radiologist to assist. If you a re a patient with a question regarding this report, pleasecontactyour referring physician directly. Professional Interpretation Provided By: [employer], Phone , These docu ments contain legally [...] destructionofthese documents. Dictated on 01/30/12 1146 by Dann Perea MDscribed on 01/30/12 1431 by ITS IMPORTSign by Sergio Perea MD on 01/30/12 1432 Sign by: Eliazar BAUTISTA,Sergio 88-Lcb-220238:58 PT Comments: standing order INR 3.5 (Normal) PTP 32.2 s (Abnormal) Range: 11.9-14.4 26-Yse-034521:51 PT INR 2.6 (Normal) PTP 25.9 s [...] Alvarez M.D.December 26, 2011 at 10:00:06 AM [id number] Signed RB/RB If y ou are the referring physician and would like to consult with theradiologist who provided this interpretation, please contact Brian Alvarez M.D. at . If this radiologist is unavailable, you will bedirected to another radiologist to assist. If you are a patient with a question regarding this report, pleasecontactyour referring physician directly. Professional Interpretation Provided By: R jony, Phone , Dictated on 12/26/11 0846 by Lana Alvarez MDribed on 12/26/11 1005 by ITS IMPORTSign by Brian Alvarez MD on 12/26/11 1006 Sign by: Eldon Alvarez MDh :15 PT INR 1.9 (Normal) PTP 20.2 s (Abnormal) Range: 11.9-14.4 :46 HgA1C , Office (28482) HgA1C , Office 6.5 % (Normal) Range: 4.6 - 7.1 :46 Blood Glucose , Office (63813) Blood Glucose , Office 107 (Normal) :14 [...] (Abnormal) Range: 11.9-14.4 :14 HgA1C , Office (49193) HgA1C , Office 7.2 % (Abnormal) Range: 4.6 - 7.1 :14 Blood Glucose , Office (27254) Blood Glucose , Office 126 (Normal) :12 [...] s (Abnormal) Range: 11.9-14.4 :22 VIT D,25 16148 45.9 ng/mL (Normal) Range: 30.0-100.0 Comments: Vitamin D deficiency has been defined by the [place] of[place]icine and an Endocrine Society practice guideline as alevel of serum 25-OH vitamin D less than 20 ng/mL (1,2).The Endocrine Society went on to further define vitamin Dinsufficiency as a level between 21 and 29 ng/mL (2).1. IOM ([place] [employer]). 2011. Dietary reference intakes for calcium and D. [place]: The National Academies Press.2. Tono MF, Jonatan NC, Fabiola HUANG, et al. Evaluation, treatment, and prevention of vitamin D deficiency: an Endocrine Society clinical practice guideline. JCEM. 2010; 96(7): 1911-30.Performed at: [address] [id number] Director: Kathleen Lorenzo MD, Phone: [phone] PRO TIME INR 2.6 (Normal) PROTIME 26.9 s (Abnormal) Range: 11.9-14.4 :18 PRO TIME INR 1.8 (Normal) PROTIME 20.1 s (Abnormal) Range: 11.9-14.4 :04 HgA1C , Office (61187) HgA1C , Office 5.9 % (Normal) Range: 4.6 - 7.1 :04 Blood Glucose , Office (33055) Blood Glucose , Office 101 (Normal) :12 [...] (Abnormal) Range: 11.9-14.4 :30 HgA1C , Office (35985) HgA1C , Office 6.4 % (Normal) Range: 4.6 - 7.1 C difficile Toxins Negative (Normal) Comments: PERFORMED BY: [address] [id number] :06 A+B, EIA Occult Blood, Fecal, Negative (Normal) Comments: PERFORMED BY: [address] [id number] :06 IA :06 Ova + Parasite Exam Comments: PERFORMED BY: [facility] [place] [address] [id number] Result 1 NOCP (Normal) Comments: No ova, cysts, or parasites seen. Ova + Parasite Exam Final report (Normal) Comments: These results were obtained using wet preparation(s) and trichromestained smear. This test does not include testing for Cryptosporidiumparvum, Cyclospora, or Microsporidia. :06 Stool Culture Comments: PERFORMED BY: [address] [id number] Information: SRC:ST E coli Shiga Toxin EIA Negative (Normal) Result 1 NCI (Normal) Comments: No Campylobacter species isolated. Campylobacter Culture Final report (Normal) Result 1 NSS (Normal) Comments: No Salmonella or Shigella recovered. Salmonella/Shigella Screen Final report (Normal) :06 White Blood Cells (WBC), Comments: PERFORMED BY: [facility] [place] [address] [id number] Stool Result 1 NWBC (Normal) Comments: No [...] 01/06/11 1439 by Keya Nava MDTranscribed on 01/06/113 by ITS IMPORTSign by Keya Nava MD on 2223 Sign by: Keya Nava MD 01-Ghn-879894:42 BILAT SCRN DIGITAL & CAD Radiology Report [...] CREAT 112.8 mg/dL (Normal) :43 VIT D,25 46536 38.3 ng/mL (Normal) Range: 32.0-100.0 Comments: Recent studies consider the lower limit of 32.0 ng/mL to gosia threshold for optimal health.Joseph NOEL. J Nutr. 2004;135(2):317-22.Performed at: [place] [address]Lab Director: Kathleen Lorenzo MD, Phone: [phone] 3-Pzg-974121:14 CBCD,SMEAR DIFF PLT EST SeeNote (Normal) Comments: [...] 4.2-5.4 WBC 7.1 K/mm3 (Normal) Range: 4.4-11.0 9-Pqb-230302:14 COMP METABOLIC CO2 28.0 mmol/L (Normal) Range: [...] 7-18 GLU 104 mg/dL (Normal) Range: 70-110 5-Mcq-769133:14 LIPID VLDL 23 mg/dL (Normal) Range: 5-40 [...] 200-240 mg/dL Borderline >240 mg/dL High Risk 5-Srm-197590:14 MICROALB:CRE UR MALB:CREAT 8.0 {mg/g_CRE} (Normal) MICROALBUMIN,UR 5.7 mg/L (Normal) UR CREAT 71.2 mg/dL (Normal) :14 VIT D,25 63737 39.1 ng/mL (Normal) Range: 32.0-100.0 Comments: Recent studies consider the lower limit of 32.0 ng/mL to gosia threshold for optimal health.Joseph NOEL. J Nutr. 2004;135(2):317-22.Performed at: [facility] [place] [address]Lab Director: Kathleen Lorenzo MD, Phone: [phone] 07-Ero-560066:36 HgA1C , Office (27245) HgA1C , Office 7.5 % (Abnormal) Range: 4.6 - 7.1 :36 Blood Glucose , Office (08226) Blood Glucose , Office 108 (Normal) :41 [...] CHOL 148 mg/dL (Normal) Comments: <200 mg/dL Iaoikhvev799-050 mg/dL Borderline>240 mg/dL High Risk HDL 62 [...] CREAT 78.4 mg/dL (Normal) :41 VIT D,25 07464 37.9 ng/mL (Normal) Range: 32.0-100.0 Comments: Recent studies consider the lower limit of 32.0 ng/mL to gosia threshold for optimal health.Joseph NOEL. J Nutr. 2004;135(2):317-22.Performed at: - [place] [address]Lab Director: Kathleen Lorenzo MD, Phone: [phone] 9-Uud-494045:54 Blood Glucose , Office (80438) Blood Glucose , Office 97 (Normal) :53 HgA1C , Office (19968) HgA1C , Office 7.1 % (Normal) Range: [...] CHOL 160 mg/dL (Normal) Comments: <200 mg/dL Wyfimlzob406-286 mg/dL Borderline>240 mg/dL High Risk TRIG 105 [...] Report See Note (Normal) Comments: Exam Number: [id number] MAMMOGRAM, BILATERAL SCREENING DIGITAL AND CAD HISTORYSix-month [...] mammograms werealso examined with computer-aided detection software ([employer], [employer] Reported By: ZULEYKA LYMAN M.D. 73-Rwg-667956:52 Blood Glucose , Office (57886) Blood Glucose , Office 128 (Normal) 80-Hht-03126:24 CBCD,SMEAR DIFF BAND 1 % (Normal) Range: [...] 31 mg/dL (Normal) Range: 5-40 :24 METHYLM 027567 134 nmol/L (Normal) Comments: SPE Scanned image [...] UR CREAT 79.1 mg/dL (Normal) :24 SPE [id number] Comments: SPE Scanned image report available in [...] electrophoresis scan will follow via computer,mail, or concrete stone finisher delivery. PROTEIN,TOTAL 7.2 g/dL (Normal) Range: 6.0-8.5 :24 VIT D,25 03536 17.0 ng/mL (Abnormal) Comments: SPE Scanned image report available in PCI.See LAB REFERENCE RESULTS form. Range: 32.0-100.0 Comments: Recent studies consider the lower limit of 32.0 ng/mL to gosia threshold for optimal health.Joseph NOEL. J Nutr. 2004;135(2):317-22. :57 HgA1C , Office (87292) HgA1C , Office 7.3 % (Abnormal) Range: 4.6 - 7.1 :56 Blood Glucose , Office (77352) Blood Glucose , Office 144 (Normal) :52 [...] T PROT 7.1 g/dL (Normal) Range: 6.4-8.2 09-Dec-20088:52 LIPID CHOL 194 mg/dL (Normal) Comments: <200 [...] mg/dL VLDL 42 mg/dL (Abnormal) Range: 5-40 3-Lwb-954928:19 UNILAT RT DIAG DIGITAL & CAD Radiology Report See Note (Normal) Comments: Exam Number: [id number] MAMMOGRAM, UNILATERAL RIGHT DIAGNOSTIC DIGITAL AND CAD [...] mammograms werealso examined with computer-aided detection software ([employer], [employer] Reported By: ZULEYKA LYMAN M.D. 75-Txi-711994:29 HgA1C , Office (69627) HgA1C , Office 6.6 % (Normal) Range: 4.6 - 7.1 :29 Blood Glucose , Office (39187) Blood Glucose , Office 115 (Normal) :53 [...] T PROT 7.4 g/dL (Normal) Range: 6.4-8.2 28-Uii-185420:13 [facility] DIA DIGITAL & CAD Radiology Report See Note (Normal) Comments: Exam Number: [id number] MAMMOGRAM, UNILATERAL RIGHT DIAGNOSTIC DIGITAL AND CAD [...] mammograms werealso examined with computer-aided detection software ([employer].). Reported By: ZULEYKA LYMAN M.D. 52-Ydz-430188:41 [facility] DIGITAL & CAD Radiology Report See Note (Normal) Comments: Exam Number: [id number] BILATERAL SCREENING MAMMOGRAM COMPARISONComparison is made to [...] The mammogramswere also examined with computer-aided detection software([employer].). Reported By: HARPER OLIVERA M.D. :38 Blood Glucose , Office (52695) Blood Glucose , Office 108 (Normal) :57 [...] (Normal) Range: 6.4-8.2 :42 HgA1C , Office (28725) HgA1C , Office 6.3 % (Normal) Range: [...] mg/dL (Normal) :19 Blood Glucose , Office (76105) Blood Glucose , Office 151 (Normal) Comments: :19 HgA1C , Office (91946) HgA1C , Office 6.0 % (Normal) Range: 4.6 - 7.1 Comments: opal 70-Clr-588147:11 BREAST UNILATERAL US (HP) Radiology Report See Note (Normal) Comments: Exam Number: [id number] TARGETED RIGHT BREAST ULTRASOUND High resolution real time linear images were obtained at 12:00 at thelevel of palpable abnormality reported by the ordering physician andin the up per outer quadrant of the breast where the patient reportedpain. No solid or cystic mass is seen. No displacement of softtissue planes is identified. IMPRESSIONThere is no ultrasound abnormality identified. Reported By: ZULEYKA LYMAN M.D. 85-Vzw-371347:33 BILAT DIAG DIGITAL & CAD Radiology Report See Note (Normal) Comments: Exam Number: [id number] MAMMOGRAM, BILATERAL DIAGNOSTIC DIGITAL AND CAD HISTORYRoutine [...] mammograms werealso examined with computer-aided detection software ([employer], [employer] Reported By: ZULEYKA LYMAN M.D. 0-Gzl-587499:16 DEXA BONE DENSITY STUDY () Radiology Report See Note (Normal) Comments: Exam Number: [id number] BONE DENSITOMETRY HISTORYPostmenopausal. TECHNIQUE Bone densitometry of [...] withinnormal limits. Reported By: ZULEYKA LYMAN M.D. 7-Okf-871850:53 HgA1C , Office (17057) HgA1C , Office 5.8 % (Normal) Range: 4.6 - 7.1 0-Mhu-420103:53 Blood Glucose , Office (15790) Blood Glucose , Office 98 (Normal) 63-Gjx-046019:00 CULTURE, URINE URINE CULTURE See Note {CFU/mL} (Normal) Comments: COLONY COUNT 11,000-25,000 ORGANISM 1: MIXED GRAM POS & NEG ORGANISMS 11-Tzj-921246:57 Urinalysis, Office (70421) Comments: ABN signed UA - BILIRUBIN Negative (Normal) UA - BLOOD Negative (Normal) UA - GLUCOSE Negative (Normal) UA - KETONES Negative mg/dL (Normal) UA - LEUKOCYTE ESTERASE Trace (Normal) UA - NITRITE Negative (Normal) UA - PH 7.0 (Normal) UA - PROTEIN Negative mg/dL (Normal) UA - SPECIFIC GRAVITY 1.005 (Normal) URINE UROBILINGN HAIDER TIMED 2 mg/dL (Normal) 14-Nfm-57678:07 LIPID CHOL 166 mg/dL (Normal) Comments: <200 [...] mg/dL VLDL 30 mg/dL (Normal) Range: 5-40 74-Roo-35737:07 LIVER ALB 3.3 g/dL (Abnormal) Range: 3.4-5.0 ALK P 64 U/L (Normal) Range: 50-136 ALT 31 [iU]/L (Normal) Range: 30-65 AST 19 U/L (Normal) Range: 15-37 D BILI 0.15 mg/dL (Normal) Range: 0.00-0.30 T BILI 0.59 mg/dL (Normal) Range: 0.00-1.00 T PROT 7.2 g/dL (Normal) Range: 6.4-8.2 42-Jai-856624:21 Blood Glucose , Office (94425) Blood Glucose , Office 120 (Normal) :21 HgA1C , Office (87772) HgA1C , Office 5.6 % (Normal) Range: 4.6 - 7.1 Plan of Care Name Dates Details Instructions BMI 32.0-32.9,adult : Follow up in 3 months Indication: BMI 32.0-32.9,adult Decubitus ulcer of buttock, left, stage I : Reviewed Jelly Maker Letter Indication: Decubitus ulcer of buttock, left, stage I Cat scratch of lower leg, unspecified laterality, sequela : Reviewed Jelly Maker Letter Indication: Cat scratch of lower leg, unspecified laterality, sequela Diabetes mellitus type II, controlled : Eprescribed prescriptions (G8553) Indication: Diabetes mellitus type II, controlled Non-smoker : Eprescribed prescriptions (G8553) Indication: Non-smoker Nonsmoker : Follow up in 10 days Indication: Nonsmoker Nonsmoker : Eprescribed prescriptions (G8553) Indication: Nonsmoker BMI 31.0-31.9,adult : Follow up as needed [...] Cellulitis of left lower leg : Reviewed Jelly Maker Letter Indication: Cellulitis of left lower leg [...] Diabetes mellitus type II, controlled Planned Observations HgA1C , Office (84115)Indication: Diabetes mellitus type II, controlled On: 62-Lvk-825482:02 Request Blood Glucose , Office (38378)Indication: Diabetes mellitus type II, controlled On: 22-Aeq-824728:02 Request CBC WITH MANUAL DIFF (56690)Indication: Anemia On: 49-Nxh-807974:56 Request CBC WITH MANUAL DIFF (68464)Indication: Bleeding ulcer On: 92-Qzd-183300:49 Request URINALYSIS, W/ MICRO (68066)Indication: Hypertension, benign On: :21 Request METABOLIC PANEL, COMPREHENSIVE (75154)Indication: Hypertension, benign On: :21 Request LIPID PANEL (24419)Indication: Hypertension, benign On: :21 Request CBC with auto diff (80433)Indication: Hypertension, benign On: 96-Ujw-135198:21 Request CALCIFIDIOL (83840) VIT D 25Indication: Vitamin D deficiency, unspecified On: :21 Request CALCIFIDIOL (31675) VIT D 25Indication: Vitamin D deficiency, unspecified On: :29 Request PT (Prothrobim Time) (71648)Indication: MCFP current use of 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 therapy On: :29 Request Comments: standing order for prn checks URINALYSIS, W/ MICRO (21309)Indication: Diabetes mellitus type II, controlled On: :28 Request METABOLIC PANEL, COMPREHENSIVE (28477)Indication: Diabetes mellitus type II, controlled On: :28 Request LIPID PANEL (32876)Indication: Diabetes mellitus type II, controlled On: :28 Request CBC WITH MANUAL DIFF (72170)Indication: Diabetes mellitus type II, controlled On: :28 Request PT (Prothrobim Time) (44912)Indication: History of DVT (deep vein thrombosis) On: 51-Mev-32993:04 Request Comments: standing order METABOLIC PANEL, COMPREHENSIVE (11354)Indication: Diabetes mellitus type II, controlled On: :20 Request LIPID PANEL (42211)Indication: Diabetes mellitus type II, controlled On: :20 Request CBC WITH MANUAL DIFF (10707)Indication: Diabetes mellitus type II, controlled On: :20 Request PT (Prothrobim Time) (93995)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 On: 28-Xbt-009258:55 Request CALCIFIDIOL (24633) VIT D 25Indication: Vitamin D deficiency, unspecified On: 12-Sap-091164:35 Request MICROALBUMIN: CREATININE RATIO (64911) AND (13283)Indication: Diabetes mellitus type II, controlled On: 22-Vze-741950:35 Request METABOLIC PANEL, COMPREHENSIVE (62287)Indication: Diabetes mellitus type II, controlled On: 60-Eho-515471:35 Request LIPID PANEL (30791)Indication: Diabetes mellitus type II, controlled On: 13-Exb-347593:35 Request CBC WITH MANUAL DIFF (62961)Indication: Diabetes mellitus type II, controlled On: 86-Tld-683754:35 Request CAMERON CULTURE-OTHER (55015)Indication: Cellulitis, umbilical On: 58-Vxh-088587:06 Request PARATHORMONE (11645)Indication: Hypercalcemia On: 1-Brr-412868:56 Request CALCIUM SERUM (23043)Indication: Hypercalcemia On: 6-Phu-291941:56 Request Blood Glucose , Office (09797)Indication: Diabetes mellitus type II, controlled On: 6-Xcm-267502:26 Request Metabolic Panel, Basic (96379)Indication: Swelling of limb On: 88-Dei-87704:39 Request Metabolic Panel, Basic (33913)Indication: Diabetes mellitus type II, controlled On: :48 Request MICROALBUMIN: CREATININE RATIO (64711) AND (90157)Indication: Diabetes mellitus type II, controlled On: :48 Request CALCIFIDIOL (86288) VIT D 25Indication: Vitamin D deficiency, unspecified On: 08-Ozj-095744:46 Request CALCIFIDIOL (52412) VIT D 25Indication: Vitamin D deficiency, unspecified On: :42 Request MICROALBUMIN: CREATININE RATIO (64199) AND (36593)Indication: Diabetes mellitus type II, controlled On: :42 Request METABOLIC PANEL, COMPREHENSIVE (06938)Indication: Diabetes mellitus type II, controlled On: :42 Request LIPID PANEL (05753)Indication: Diabetes mellitus type II, controlled On: :42 Request CBC WITH MANUAL DIFF (21063)Indication: Diabetes mellitus type II, controlled On: :42 Request METABOLIC PANEL, COMPREHENSIVE (61787)Indication: Hypercholesteremia On: :08 Request LIPID PANEL (96692)Indication: Hypercholesteremia On: :08 Request CALCIFIDIOL (14672) VIT D 25Indication: Vitamin D deficiency, unspecified On: : Request Comments: in three months (approximately) CBC WITH MANUAL DIFF (07662)Indication: Diabetes mellitus type II, controlled On: : Request Comments: in three months (approximately) MICROALBUMIN: CREATININE RATIO (92627) AND (22007)Indication: Diabetes mellitus type II, controlled On: : Request METABOLIC PANEL, COMPREHENSIVE (71764)Indication: Diabetes mellitus type II, controlled On: : Request LIPID PANEL (18223)Indication: Diabetes mellitus type II, controlled On: 37-Mfy-993603: Request PT (Prothrobim Time) (54429)Indication: Deep vein thrombosis, unspecified laterality On: :06 Request Comments: monday CBC (Auto) (24300)Indication: Deep vein thrombosis, unspecified laterality On: 84-Bxl-805451:06 Request Comments: monday PT (Prothrobim Time) (21303)Indication: Deep vein thrombosis, unspecified laterality On: 68-Hju-123528:32 Request Comments: standing order OVA & PARASITE DIR SMEAR (04299)Indication: Diarrhea On: :34 Request OCCULT BLOOD FECES SCREEN (65656)Indication: Diarrhea On: :34 Request LEUKOCYTE COUNT, FECAL (93585)Indication: Diarrhea On: :34 Request C-DIFFICILE, STOOL (44615)Indication: Diarrhea On: 34 Request CAMERON CULTURE-STOOL (58732)Indication: Diarrhea On: :34 Request CALCIFIDIOL (71565) VIT D 25Indication: Vitamin D deficiency, unspecified On: 52-Qcf-591471:09 Request MICROALBUMIN: CREATININE RATIO (28119) AND (89501)Indication: Diabetes mellitus type II, controlled On: 70-Mtz-693428:06 Request METABOLIC PANEL, COMPREHENSIVE (06578)Indication: Diabetes mellitus type II, controlled On: 86-Dwk-080027:06 Request LIPID PANEL (12202)Indication: Diabetes mellitus type II, controlled On: 83-Ten-913507:06 Request CBC WITH MANUAL DIFF (52363)Indication: Diabetes mellitus type II, controlled On: 28-Nbo-288494:06 Request MICROALBUMIN: CREATININE RATIO (92152) AND (29211)Indication: Diabetes mellitus type II, controlled On: 9-Nss-010831:16 Request CALCIFIDIOL (10541) VIT D 25Indication: Vitamin D deficiency, unspecified On: 3-Ajq-687429:16 Request METABOLIC PANEL, COMPREHENSIVE (93794)Indication: Diabetes mellitus type II, controlled On: 9-Ony-769211:15 Request LIPID PANEL (06665)Indication: Hypercholesteremia On: 1-Ohx-975490:15 Request TSH (29042)Indication: Hypercholesteremia On: 13-Byj-075668:58 Request Comments: hair thinning HEPATIC FUNCTION PANEL (50984)Indication: Hypercholesteremia On: 05-Cpm-123184:58 Request LIPID PANEL (66708)Indication: Hypercholesteremia On: 37-Gtk-712834:58 Request HgA1C , Office (99058)Indication: Diabetes mellitus type II, controlled On: 69-Rkb-457738:52 Request Methylmalonic acid, serum 66323Ghmeaxecgu: Abnormal blood chemistry On: : Request CALCIFIDIOL (27907) VIT D 25Indication: Abnormal blood chemistry On: : Request Urine Protein Electrophoresis (UPEP) (02544)Indication: Abnormal blood chemistry On: : Request Serum Protein Electrophoresis (SPEP) (45890)Indication: Abnormal blood chemistry On: : Request LIPID PANEL (46586)Indication: Diabetes mellitus type II, controlled On: :22 Request METABOLIC PANEL, COMPREHENSIVE (18166)Indication: Diabetes mellitus type II, controlled On: : Request CBC WITH MANUAL DIFF (09643)Indication: Diabetes mellitus type II, controlled On: 59-Ljb-106944:22 Request Comments: in three months (approximately) MICROALBUMIN: CREATININE RATIO (50827) AND (38828)Indication: Diabetes mellitus type II, controlled On: 99-Ite-807209:22 Request Metabolic Panel, Comprehensive (41168)Indication: Hypercholesteremia On: 22-Khn-991704:45 Request Lipid Panel (63767)Indication: Hypercholesteremia On: 85-Itz-605722:45 Request HEPATIC FUNCTION PANEL (28950)Indication: Hypercholesteremia On: 93-Elh-779185:12 Request Lipid Panel (66039)Indication: Hypercholesteremia On: 04-Zva-158862:11 Request Comments: in three months (approximately) HgA1C , Office (72225)Indication: Diabetes mellitus type II, controlled On: 22-Mws-437770:38 Request HEPATIC FUNCTION PANEL (84397)Indication: Hypercholesteremia On: :40 Request Lipid Panel (70778)Indication: Hypercholesteremia On: 09-Oct-20079:40 Request MICROALBUMIN: CREATININE RATIO (51323) AND (54016)Indication: Diabetes mellitus type II, controlled On: 97-Kxg-052847:29 Request LIPID PANEL (88493)Indication: Diabetes mellitus type II, controlled On: :29 Request METABOLIC PANEL, COMPREHENSIVE (82247)Indication: Diabetes mellitus type II, controlled On: :29 Request CBC WITH MANUAL DIFF (81240)Indication: Diabetes mellitus type II, controlled On: :29 Request METABOLIC PANEL, COMPREHENSIVE (33865)Indication: Diabetes mellitus type II, controlled On: :19 Request MICROALBUMIN: CREATININE RATIO (52557) AND (01264)Indication: Diabetes mellitus type II, controlled On: 41-Cki-499862:19 Request LIPID PANEL (67508)Indication: Diabetes mellitus type II, controlled On: :19 Request CBC WITH MANUAL DIFF (48400)Indication: Diabetes mellitus type II, controlled On: :19 Request FECAL OCCULT HGB ASSAY- tubes sent home (83089)Indication: Well woman exam with routine gynecological exam On: 85-Cny-245489:13 Request Thin prep Pap (82034)Indication: Well woman exam with routine gynecological exam On: 83-Hpm-767456:13 Request URINE CAMERON CULTURE-HAIDER COL COUNT On: 56-Ndw-320501:10 Request (74315) HEPATIC FUNCTION PANEL (49354)Indication: Hypercholesteremia On: 28-Yha-028004:33 Request Comments: in six months LIPID PANEL (44799)Indication: Hypercholesteremia On: 96-Kky-880094:33 Request Planned Encounters Medical; 3 Month FU - On: 20-Aug-2018 10:15 [facility] Lesly Chairez CNP, CNP, Mary E Planned Procedures DEXA SCAN AXIAL SKELETON (76469)By: On: 19-Mar-2018 Intent Lesly Chairez CNP, CNP, Mary E SCREENING DIGITAL TOMOSYNTHESIS OF On: 19-Mar-2018 Intent BREAST (95167)By: Lesly Chairez CNP, CNP, Mary E SCREENING DIGITAL TOMOSYNTHESIS OF On: 12-Feb-2018 Intent BREAST (70135)By: Lesly Chairez CNP Comments: after Mar 09 2018 Lesly Chairez CNP DEXA SCAN AXIAL SKELETON (46112)By: On: 12-Feb-2018 Intent Lesly Chairez CNP, CNP, Mary E Radiology - Hip - RightBy: Mihaela On: 12-Feb-2018 Intent Lesly RODRIGUEZ CNP, Mary E Flu Vaccine (Quadrivalent) 56213Fo: On: 12-Feb-2018 Intent Lesly Chairez CNP, CNP, Mary E Comments: Lot #[id number]-L dltd, IMDose prefilled syringegiven by: ELVIN ELIAS reviewed and ABN signed Kenalog 10 mg (J3301)By: Mihaela RODRIGUEZ, On: 08-Jan-2018 Intent Lesly Bianchi CNP DRAIN/INJECT INTERMED JOINT/BURSA On: 08-Jan-2018 Intent ()By: Nellypopmichael RODRIGUEZ Lesly Chairez Comments: Rt wrist injection with marcaine and kenalog 1/2cc Lesly RODRIGUEZ Ultrasound - Abdomen CompleteBy: On: 06-Nov-2017 Intent Lesly Chairez CNP, CNP, Mary E B 12 Injection, 1000 mcg (J3420)By: On: 24-Aug-2017 Intent Elgin Miller Comments: Vitamin b12 1000mcg injection lot:[id number]:10/2018R DELT IMpt tolerated well MSMITH,MANAGER GAS B 12 Injection, 1000 mcg (J3420)By: On: 17-Aug-2017 Intent Lesly Chairez CNP, CNP, Mary E Comments: vitamin b12 1000mcg injectionlot: [id number]: 10/2018L DELT IMpt tolerated wellAD MANAGER GAS B 12 Injection, 1000 mcg (J3420)By: On: 07-Aug-2017 Intent Visit, Nurse Comments: Lot #[id number]-10/2018Site- Left dtld, IMDose-prefilled syringegiven by:ELVIN Woo signed B 12 Injection, 1000 mcg (J3420)By: On: 02-Aug-2017 Intent Lesly Chairez CNP, CNP, Mary E Flu Vaccine (Quadrivalent) 39219Np: On: 13-Mar-2017 Intent Lesly Chairez CNP, CNP, Mary E Comments: InfluenzaLot #[id number]-L dltd, IMDose prefilled syringeVIS and ABN signedgiven by:DAVID de paz MAMMOGRAM BREAST BILATERAL On: 27-Feb-2017 Intent SCREENING DIGITAL (54415)By: Mihaela RODRIGUEZ Lesly Chairez MICHAEL Lesly Chatman MRI OF LUMBAR SPINE WITH AND On: 28-Nov-2016 Intent WITHOUT CONTRAST (27501)By: Mihaela RODRIGUEZ Lesly Chairez MICHAEL Fátima Radiology - Lumbar SpineBy: Mihaela On: 19-Sep-2016 Intent MICHAEL Lesly Chatman Nellyfawn MICHAEL Lesly Chatman Radiology - Humerus - RightBy: On: 08-Apr-2016 Intent Mihaela MICHAELLesly CNP, Mary E Solu -Medrol Injection, 125 mg On: 08-Apr-2016 Intent (J2930)By: Mihaela RODRIGUEZ Lesly Chairez CNP Lesly Chatman Solu- Medrol Injection, 125mg On: 24-Mar-2016 Intent (J2930)By: Wendy Jnue DO Comments: Lot:[id number]:10/2018Dose:125mgRoute:imSite:r hipGiven By:Gaurang signed Flu Vaccine (Quadrivalent) 50232Df: On: 29-Feb-2016 Intent Visit, Nurse Comments: Lot #[id number]/30/17ite-L dltd, IMDose prefilled syringegiven by:NISHANT WooNVIS and ABN signed BILATERAL MAMMOGRAMS (38882)By: On: 15-Feb-2016 Intent Mihaela RODRIGUEZ Lesly Chatman Nellyfawn MICHAEL Lesly Chatman Kenalog Injection, 10 mgm On: 18-Jan-2016 Intent (J3301)By: Mihaela RODRIGUEZ FátimaCompa Chairez CNP Fátima DRAIN/INJECT SMALL JOINT OR BURSA On: 18-Jan-2016 Intent (33594)By: Mihaela RODRIGUEZ Lesly Chatman Nellypopmichael RODRIGUEZ Fátima Radiology - Lumbar SpineBy: Mihaela On: 07-Sep-2015 Intent MICHAELLesly Nellyfawn MICHAEL Lesly Chatman Toradol Injection, 30 mg On: 07-Sep-2015 Intent (J1885)By: Lesly Chairez CNP Comments: Lot:[id number]:08/03/16Dose:30mgRoute:imSite:r hipGiven By:JUNG signed EXTERNAL GRINDER TENDER, Fátima MRI - Shoulder(s) - RightBy: Ciesa On: 03-Aug-2015 Intent MICHAEL, Fátima Mihaela RODRIGUEZ, Fátima Radiology - Shoulder - RightBy: On: 03-Aug-2015 Intent Ciesa EXTERNAL GRINDER TENDER, Fátima Cipopa EXTERNAL GRINDER TENDER, Fátima ADMINISTRATION OF INFLUENZA VIRUS On: 02-Mar-2015 Intent VACCINE (G0008)By: Akosua Enrique MD Flu Vaccine (Quadrivalent) 96675Yb: On: 02-Mar-2015 Intent Akosua Enrique MD Comments: Lot #:[id number] date:Amount given:0.5mlRoute: IMSite given:L DltdGiven by: Jung and ABN signed Quad Flu Wax CurettesBy: Akosua Enrique MD On: 27-Nov-2014 Intent Ear Irrigation (54232)By: Elana On: 27-Nov-2014 Intent Akosua BAUTISTA MAMMOGRAM, SCREENING, BOTH BREAST On: 27-Nov-2014 Intent (04768)By: Akosua Enrique MD Prevnar 13 (66090)By: Maryam HERNANDEZ, On: 28-Apr-2014 Intent Maria T Comments: [id number] arm, IMAS ADMINISTRATION OF INFLUENZA VIRUS On: 31-Mar-2014 Intent VACCINE (G0008)By: Akosua Enrique MD Comments: [id number] syringeL Dltd, IMAS, LPNABN and VIS signed M FLU VAC, SPLIT, >3 YEARS, INTRAMUSC On: 31-Mar-2014 Intent (00001)By: Maria T Francisco LPN BILATERAL MAMMOGRAMS (03206)By: On: 06-Feb-2014 Intent Akosua Enrique MD MAMMOGRAM, SCREENING, BOTH BREAST On: 23-Dec-2013 Intent (11602)By: Akosua Enrique MD Eprescribed prescriptions On: 29-Apr-2013 Intent (G8553)By: Akosua Enrique MD Eprescribed prescriptions On: 08-Apr-2013 Intent (G8553)By: Akosua Enrique MD DXA, BONE DENSITY, AXIAL SKELETON On: 08-Apr-2013 Intent (67006)By: Akosua Enrique MD Comments: postmenapausal FLU VAC, SPLIT, >3 YEARS, INTRAMUSC On: 08-Mar-2013 Intent ([id number])By: Wendy June DO Comments: Lot:[id number]:0.5mlRoute:IMSite: L DltdGiven By: DAVID BookerVIS signed ADMINISTRATION OF INFLUENZA VIRUS On: 08-Mar-2013 Intent VACCINE (G0008)By: Wendy June DO Rocephon Injection, 2 Gm On: 28-Feb-2013 Intent ([id number])By: Wendy June DO Comments: im lt and rt hip 2.5 ml each [id number] exp 09/04/15 Eprescribed prescriptions On: 07-Feb-2013 Intent (G8553)By: Randa Aldana LPN Eprescribed prescriptions On: 24-Dec-2012 Intent (G8553)By: Lesly Chairez CNP, CNP, Lesly Chatman MAMMOGRAM, SCREENING, BOTH BREASTS On: 08-Oct-2012 Intent ([id number])By: Akosua Enrique MD Eprescribed prescriptions On: 08-Oct-2012 [...] SPLIT, >3 YEARS, INTRAMUSC On: 20-Feb-2012 Intent ([id number])By: Myrna Townsend Comments: Lot:[id number]:[id number]:prefilledRoute:IMSite:L DltdGiven By:JUNG signed ADMINISTRATION OF INFLUENZA VIRUS On: 20-Feb-2012 Intent VACCINE (G0008)By: Myrna Townsend ADMINISTRATION OF INFLUENZA VIRUS On: 20-Feb-2012 Intent VACCINE (G0008)By: MATT Maloney FLU VAC, SPLIT, >3 YEARS, INTRAMUSC On: 20-Feb-2012 Intent ([id number])By: MATT Maloney MAMMOGRAM, SCREENING, BOTH BREASTS On: 24-Jan-2012 Intent ([id number])By: Akosua Enrique MD Ultrasound - AortaBy: Elana BAUTISTA, On: 14-Nov-2011 Intent Akosua Lackey Kenalog Injection, 10 mgm On: 24-Oct-2011 Intent ([id number])By: Akosua Enrique MD Kenalog Injection, 10 mgm On: 24-Oct-2011 Intent ([id number])By: Akosua Enrique MD Kenalog Injection, 10 mgm On: 24-Oct-2011 Intent ([id number])By: Akosua Enrique MD Kenalog Injection, 10 mgm On: 24-Oct-2011 Intent ([id number])By: Akosua Enrique MD EKG ([id number])By: Akosua Enrique MD On: 08-Aug-2011 Intent Eprescribed prescriptions On: 08-Aug-2011 Intent (G8553)By: Akosua Enrique MD INFUSION, NORMAL SALINE SOLUTION , On: 05-Jul-2011 Intent 250 CC ([id number])By: Lesly Chairez CNP, CNP, Mary E FLU VAC, SPLIT, >3 YEARS, INTRAMUSC On: 02-May-2011 Intent ([id number])By: Akosua Enrique MD Comments: had done ADMINISTRATION OF INFLUENZA VIRUS On: 28-Feb-2011 Intent VACCINE (G0008)By: Akosua Enrique MD FLU VAC, SPLIT, >3 YEARS, INTRAMUSC On: 28-Feb-2011 Intent ([id number])By: Akosua Enrique MD Eprescribed prescriptions On: 28-Feb-2011 [...] - Small Bowel Series On: 06-Jan-2011 Intent ([id number])By: Akosua Enrique MD EKG ([id number])By: Akosua Enrique MD On: 28-Jun-2010 Intent MAMMOGRAM, SCREENING, BOTH BREASTS On: 28-Jun-2010 Intent ([id number])By: Akosua Enrique MD FLU VAC, SPLIT, >3 YEARS, INTRAMUSC On: 29-Mar-2010 Intent ([id number])By: Ana Candelario Comments: Lot:[id number]:09/2010Dose:0.5mlRoute:IMSite:Left Deltoid Given by: WALESKA Valerio ADMINISTRATION OF INFLUENZA VIRUS On: 29-Mar-2010 Intent VACCINE (G0008)By: Ana Candelario EKG ([id number])By: Akosua Enrique MD On: 24-Apr-2009 Intent IMMUNIZ ADMNIN, 1 VAC, SNGL/COMBO On: 11-Mar-2009 Intent ([id number])By: Ladonna Birggs RN FLU VAC, SPLIT, >3 YEARS, INTRAMUSC On: 11-Mar-2009 Intent ([id number])By: Ladonna Briggs RN Breast Diagnostic - RightBy: On: 23-Dec-2008 Intent Akosua Enrique MD Breast Screening - LeftBy: Elana On: 23-Dec-2008 Intent Akosua BAUTISTA Breast Diagnostic - RightBy: On: 15-Jul-2008 Intent Akosua Enrique MD Comments: 11-11 FLU VAC, SPLIT, >3 YEARS, INTRAMUSC On: 25-Mar-2008 Intent ([id number])By: Alexa Metz ADMINISTRATION OF INFLUENZA VIRUS On: 25-Mar-2008 Intent VACCINE (G0008)By: Alexa Metz EKG ([id number])By: Akosua Enrique MD On: 04-Mar-2008 Intent MAMMOGRAM, SCREENING, BOTH BREASTS On: 04-Mar-2008 Intent ([id number])By: Akosua Enrique MD Venous Doppler - BothBy: Elana On: 14-Aug-2007 Intent Akosua BAUTISTA Comments: lower legs EKG ([id number])By: Akosua Enrique MD On: 15-Feb-2007 Intent Bone Density StudyBy: Jovan, On: 28-Dec-2006 Intent Randa MAMMOGRAM, SCREENING, BOTH BREASTS On: 28-Dec-2006 Intent ([id number])By: Akosua Enrique MD SPECIMEN HANDLING/TRANSPORT On: 29-Sep-2006 Intent ([id number])By: Akosua Enrique MD FLU VAC, SPLIT, >3 YEARS, INTRAMUSC On: 04-Apr-2006 Intent ([id number])By: Alexa Joseph ADMINISTRATION OF INFLUENZA VIRUS On: 04-Apr-2006 Intent VACCINE (G0008)By: Alexa Joseph FLU VAC, SPLIT, >3 YEARS, INTRAMUSC On: 28-Mar-2006 Intent ([id number])By: Akosua Enrique MD Planned Medications INFUSION, NORMAL SALINE SOLUTION , 250 CC Ordered: 05-Jul-2011 Pending Ciesa EXTERNAL GRINDER TENDER, Fátima Ciesa EXTERNAL GRINDER TENDER, Fátima INJECTION, CEFTRIAXONE SODIUM, PER 250 MG Ordered: 28-Feb-2013 Pending Shaylee DO, Wendy INJECTION, KETOROLAC TROMETHAMINE, PER 15 MG Ordered: 07-Sep-2015 Pending Ciesa EXTERNAL GRINDER TENDER, Fátima Ciesa EXTERNAL GRINDER TENDER, Fátima INJECTION, METHYLPREDNISOLONE SODIUM SUCCINATE, UP TO 125 MG Ordered: 08-Apr-2016 Pending Ciesa EXTERNAL GRINDER TENDER, Fátima Ciesa EXTERNAL GRINDER TENDER, Fátima INJECTION, METHYLPREDNISOLONE SODIUM SUCCINATE, UP TO 125 MG Ordered: 24-Mar-2016 Pending Shaylee DO, Wendy INJECTION, TRIAMCINOLONE ACETONIDE, NOT OTHERWISE SPECIFIED, 10 MG Ordered: 18-Jan-2011 Pending Akosua Enrique MD INJECTION, TRIAMCINOLONE ACETONIDE, NOT OTHERWISE SPECIFIED, 10 MG Ordered: 18-Jan-2016 PendLesly Francis CNP, CNP, Lesly Chatman INJECTION, TRIAMCINOLONE ACETONIDE, NOT OTHERWISE SPECIFIED, 10 MG Ordered: 12-Mar-2012 Pending Akosua Enrique MD M INJECTION, TRIAMCINOLONE ACETONIDE, NOT OTHERWISE SPECIFIED, 10 MG Ordered: 12-Mar-2012 Pending Akosua Enrique MD INJECTION, TRIAMCINOLONE ACETONIDE, NOT OTHERWISE SPECIFIED, 10 MG Ordered: 12-Mar-2012 Pending Akosua Enrique MD M INJECTION, TRIAMCINOLONE ACETONIDE, NOT OTHERWISE SPECIFIED, 10 MG Ordered: 24-Oct-2011 Pending Akosua Enrique MD M INJECTION, TRIAMCINOLONE ACETONIDE, NOT OTHERWISE SPECIFIED, 10 MG Ordered: 24-Oct-2011 Pending Akosua Enrique MD M INJECTION, TRIAMCINOLONE ACETONIDE, NOT OTHERWISE SPECIFIED, 10 MG Ordered: 24-Oct-2011 Pending Akosua Enrique MD M INJECTION, TRIAMCINOLONE ACETONIDE, NOT OTHERWISE SPECIFIED, 10 MG Ordered: 24-Oct-2011 Pending Akosua Enrique MD INJECTION, TRIAMCINOLONE ACETONIDE, NOT OTHERWISE SPECIFIED, 10 MG Ordered: 12-Mar-2012 Pending Akosua Enrique MD INJECTION, TRIAMCINOLONE ACETONIDE, NOT OTHERWISE SPECIFIED, 10 MG Ordered: 08-Jan-2018 Pending Lesly Chairez CNP, CNP, Lesly Chatman Vitamin B-12 1000 MCG/ML Injection Solution Ordered: 24-Aug-2017 Pending Elgin Miller Vitamin B-12 1000 MCG/ML Injection Solution Ordered: 02-Aug-2017 Pending Lesly Chairez CNP, CNP, Lesly Chatman Vitamin B-12 1000 MCG/ML Injection Solution Ordered: 07-Aug-2017 Pending Nurse Damien Vitamin B-12 1000 MCG/ML Injection Solution Ordered: 17-Aug-2017 Pending Lesly Chairez CNP, CNP, Lesly Chatman Instructions Name Dates Details Diabetes mellitus type II, controlled : How to access health information online Indication: Diabetes mellitus type II, controlled Diabetes mellitus type II, controlled : How to access health information online - Detail Indication: Diabetes mellitus type II, controlled Diabetes mellitus type II, controlled : Patient Instructions Indication: Diabetes mellitus type II, controlled Non-smoker : How to access health information online Indication: Non-smoker Non-smoker : How to access health information online - Detail Indication: Non-smoker Non-smoker : Patient Instructions Indication: Non-smoker Nonsmoker : How to access health information [...] thrombosis) : DISCONTINUED - PT (PROTHROMBIN TIME) (70315) Indication: History of DVT (deep vein thrombosis) 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 Patient has been compliant with instructions. Current medication u End: 21-May-2018 11:28 se: no side effects, compliant with dosing regimen and considered effective by patient. Patient sleeps 5 (broken) hours per night. Nutrition: inappropriate diet. The medical issues the patient is follow ing up for include blood sugar issues, cardiac issues, gastric reflux, high blood pressure, high cholesterol and other (hx. dvt, chronic venous stasis, hx. GI bleed/anemia, DDD, IBS, glaucoma suspect, v itamin d def., venous insuff., overweight ). fasting blood sugars : (97 this am). Note for Follow up for chronic medical issues: Seeing wound center with zinc on leg for cat scratch. Also sore on back side using STage 2 ulcer, [ADDITIONAL REASON] Follow up tests - Diagnostic tests include other (labs). , [ADDITIONAL REASON] Heartburn - Note for Heartburn: Feels worsening heartburn with lying flat and needing to leg raise , [ADDITIONAL REASON] decubitus ulcer - decubitus ulcer coccyx Encounter Diagnosis: Diabetes mellitus type II, controlled, Non-smoker, BMI 32.0-32.9,adult, Cat scratch of lower leg, unspecified laterality, sequela, Hiatal hernia, Decubitus ulcer of buttock, left, stage I, Vitamin D deficiency, unspecified [facility] Office Visit On: 25-Apr-2018 13:21 Encounter Reason: Cellulitis - The last clinic visit was 1 week(s) ago. Symptoms include pain, swelling, tenderness, warmth, drainage, edema and limited range of motion. Symptoms are located on the left leg (lower l leg)., End: 25-Apr-2018 14:23 [ADDITIONAL REASON] Diarrhea - Note for Diarrhea: started this am Encounter Diagnosis: BMI 32.0-32.9,adult, Non-smoker, Cellulitis [facility] Office Visit On: 18-Apr-2018 13:28 Encounter Reason: Cellulitis - Symptoms include pain, swelling, warmth and erythema. Symptoms are located on the left leg. The patient describes the pain as aching. Onset was 3 day(s) ago., End: 18-Apr-2018 14:32 [ADDITIONAL REASON] abrasion - Abrasion left lower extremity from cat scratch Encounter Diagnosis: BMI 31.0-31.9,adult, Nonsmoker, Skin tear of lower leg without complication, left, initial encounter, Cat scratch of lower leg, unspecified laterality, sequela [facility] Lab Order On: 30-Mar-2018 10:05 Encounter Diagnosis: [...] or put area rugs through house. The leticiaen t has completed the following preventative measures: mammography (1 year ago) and colonoscopy (dr oates- 9 years ago). The patient does not have durable power of finance attorney or living will. The patient huang s noticed lack of energy and thinking most people are better off than them. Other providers contributing to the patient's care are mechanical maintenance foreman (dr. martinez) and logistics service representative (dr. roper). Note for Annual Medicare Exam: [...] procedure results: Took meclizine x 2 on day then no more vertigo , [ADDITIONAL [...] done low B12 and D here for 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 The patient has completed the following preventative measures: PAP smear (over 70 ), mammography (02-16-2015) and colonoscopy (2008). The patient does n ot have durable power of finance attorney or living will. The patient has noticed lack of energy. Other providers contributing to the patient's care are gastrologist (Dr. Oates ) and other: (Opthalm: Dr. Hebert ).Encounter Diagnosis: Encounter for Medicare annual wellness exam, Venous (peripheral) insufficiency, BMI 33.0-33.9,adult, Diabetes mellitus type II, controlled, Degenerative disc disease, Coronary artery disease, [facility] current use of 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 therapy, Encounter for [...] Woman Exam , Medicare (V76.2) (Renamed from [facility] Exam , Medicare (V76.2, V72.31)), arthritis,unspecified (716.90), [...] providers contributing to the patient's care are mechanical maintenance foreman (Dr. Martinez) and other: (Glaucoma screens by [...] Woman Exam , Medicare (V76.2) (Renamed from [facility] Woman Exam , Medicare (V76.2, V72.31)), arthritis,unspecified [...] Woman Exam , Medicare (V76.2) (Renamed from [facility] Woman Exam , Medicare (V76.2, V72.31)), Lymphedema [...] patient does not have durable power of finance attorney o r living will. The patient has noticed lack of energy. Other providers contributing to the patient's care are logistics service representative.Encounter Diagnosis: Annual Medicare Physical (V70.0), Itching (698.9) [...] Woman Exam , Medicare (V76.2) (Renamed from [facility] Woman Exam , Medicare (V76.2, V72.31)), GLAUCOMA [...] Nutrition: balanced diet and supplemental vitamins. The wi dical issues the patient is following up [...] Well Woman Exam , Medicare (V76.2, V72.31)), Irritable [...] (362.01), Hypertension,benign(401.1), Vitamin D deficiency, unspecified (268.9), Leetchi Exam , Medicare (V76.2) (Renamed from [facility] , Medicare (V76.2, V72.31)), GERD (530.81), Obesity (278.00), Limb pain (729.5), Stasis Dermatitis, Hypercholesteremia (272.0), Low back pain (724.2), DVT (453.42), Swelling of limb (729.81), WWV, SYMPTOMS INVOLVING RESPIRATORY SYSTEM AND OTHER CHEST SYMPTOMS; HICCOUGH (786.8), Abnormal mammogram (793.80), Rash (782.1), Allergy to Zetia *ANTIHYPERLIPIDEMICS* (Renamed from Zetia *ANTIHYPERLIPIDEMICS*) [facility] Phone Encounter On: 24-Jan-2012 10:28 Encounter Diagnosis: [facility] Exam , Medicare (V76.2) (Renamed from [facility] , Medicare (V76.2, V72.31)) End: 24-Jan-2012 10:31 [...] Nutrition: balanced diet and supplemental vitamins. The wi dical issues the patient is following up [...] Swelling of limb (729.81), Sleep disorder (780.50), [facility] Office Visit On: 09-Oct-2007 [...] itching. Note for Rash: [facility] noticed back itchingEncounter Diagnosis: Rash (782.1) [...] [facility] End: 26-Feb-2006 20:01 Payers MedicareKEON/Massiel Soares; michael guarantor
--- OUTSIDE RECORDS SUMMARY | 2018-06-12 22:44 | XMS RPT_ITS | Continuity of Care Document ---
:1940 Author Organization [facility] Address [facility] [address] [place] [address] Phone Care Team Providers Name Role Phone Lesly Chairez CNP Unavailable [facility] Unavailable Edin BAUTISTA, Balwinder Tam Unavailable Matt Phelps Unavailable Elana BAUTISTA, Nell Lackey Unavailable Dr. Prashant Hoffman Unavailable Healing Center, Wound Unavailable Liyah Diane Unavailable Dr. Shayla Goodman Unavailable Dr. Jonathan Oates Unavailable Slarb PROJECT ADMINISTRATOR, Maria T Unavailable Unavailable Eufemia Lemos Unavailable Unavailable Long PROJECT ADMINISTRATOR, Dima L Unavailable Unavailable Unavailable Unavailable Problems [...] Irritable bowel syndrome (K58.9, 564.1) Status: Active half-way current use of 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 therapy (Z79.01, V58.61) [...] unintentional Status: Active Medications Name Dates Details Amoxicillin-Pot Clavulanate 875-125 MG Oral Tablet 1 (one) Tablet bid for 0 days Quantity: 20 {Tablet} Refills: 0 Ordered:25-Apr-2018 Mihaela RODRIGUEZ, Lesly Nelson CNP, Lesly Chatman Start : 25-Apr-2018 Active Avapro 75 MG Oral Tablet 1 (one) Tablet QD for 0 days Quantity: 30 {Tablet} Refills: 6 Ordered:01-Sep-2017 Mihaela RODRIGUEZ, Lesly Nelson CNP, Lesly Chatman Start : 01-Sep-2017 Active Cyanocobalamin 2500 MCG Sublingual Tablet Sublingual 1 (one) Microgram Microgram daily sublingual for 0 days Quantity: 30 {Milligram} Refills: 3 Ordered:02-Aug-2017 Long PROJECT ADMINISTRATOR, Dima L Start : 02-Aug-2017 Active Demadex 20 MG Oral Tablet 1 (one) Tablet qd prn for 0 days Quantity: 30 {Tablet} Refills: 3 Ordered:25-Jan-2018 ShayleeWendy swanson DO Start : 25-Jan-2018 Active DIABETIC TESTING SUPPLIES ( Strip) (Free Text) uad Strip up to QID for 0 days Quantity: 2 {Box} Refills: 6 Ordered:02-Jun-2014 Nell Enrique MD Start : 02-Jun-2014 Active Comments:True Test Strips DX: 250.00NPI: [id number] [place] 300 MG Oral Capsule 1 qd (300 [...] days Quantity: 60 {Tablet} Refills: 0 Ordered:19-Oct-2015 Nell Enrique MD Start : 19-Oct-2015 Active Potassium Chloride ER 10 MEQ Oral Capsule Extended Release 1 Capsule ER qd prn when on water pill for 30 days Quantity: 30 {Capsule} Refills: 2 Ordered:29-Jan-2018 Mihaela RODRIGUEZ, Lesly Nelson CNP, Lesly Chatman Start : 29-Jan-2018 Active Pravachol 80 MG Oral Tablet 1 (one) Tablet qod for 0 days Quantity: 15 {Tablet} Refills: 6 Ordered:12-Feb-2018 Mihaela RODRIGUEZ, Lesly Nelson CNP, Lesly Chatman Start : 12-Feb-2018 Active Sucralfate 1 GM Oral Tablet 1 (one) Tablet qid prn for 0 days Quantity: 120 {Tablet} Refills: 3 Ordered:06-Nov-2017 Mihaela RODRIGUEZ, Lesly Nelson CNP, Lesly Chatman Start : 06-Nov-2017 Active Vitamin [...] {Capsule} Refills: 0 Ordered:18-Apr-2018 Mihaela RODRIGUEZ, Lesly Nelson CNP, Lesly Chatman Start : 18-Apr-2018 End : 25-Apr-2018 Inactive [...] days Quantity: 14 {Capsule} Refills: 0 Ordered:24-Mar-2016 Shaylee LONG Wendy Start : 24-Mar-2016 End : 31-Mar-2016 Inactive CEPHALEXIN, 500MG (Oral Capsule) 1 (one) Capsule bid for 10 days Quantity: 20 {Capsule} Refills: 0 Ordered:14-Jun-2012 Nell Enrique MD Start : 14-Jun-2012 End : [...] 0 Ordered:31-Jul-2017 Mihaela RODRIGUEZ, Lesly Nelson CNP, Fátima Start : 31-Jul-2017 End : 10-Aug-2017 [...] days Quantity: 7 {Tablet} Refills: 0 Ordered:14-Jan-2013 Nell Enrique MD Start : 14-Jan-2013 End : [...] : 12-Nov-2010 End : 20-Feb-2012 Inactive Nystatin 230937 UNIT/GM External Powder uad Powder bid to affected area(s) prn for 30 days Quantity: 1 {Packet} Refills: 3 Ordered:31-Jul-2017 Maria T Francisco LPN Start : 20-Feb-2017 End : 31-Jul-2017 Inactive PANTOPRAZOLE SODIUM, 40MG (Oral Tablet Delayed Release) 1 (one) Tablet DR qd (40 MG) Start : 22-Sep-2015 End : 19-Oct-2015 Inactive Comments:adverse reaction PredniSONE 10 MG Oral Tablet 3 (three) Tablet daily for 7 days Quantity: 21 {Tablet} Refills: 0 Ordered:13-Mar-2017 Lesly Chairez CNP, CNP, Mary E Start : 13-Mar-2017 End : 20-Mar-2017 Inactive [...] days Quantity: 30 {Tablet} Refills: 0 Ordered:13-Mar-2017 Maria T Francisco LPN Start : 15-Aug-2016 End : 13-Mar-2017 Inactive WARFARIN SODIUM, 1MG (Oral Tablet) 3 1/2 Tablet qd as directed for 0 days Quantity: 100 {Tablet} Refills: 3 Ordered:22-Sep-2015 MATT Maloney Start : 31-Aug-2015 End : 22-Sep-2015 Inactive ZITHROMAX Z-KUMAR, 250MG (Oral Tablet) 1 Tablet TAD for 0 days Quantity: 1 {Package(s)} Refills: 0 Ordered:21-May-2012 MATT Maloney Start : 19-Mar-2012 End : 21-May-2012 Inactive ZOSTAVAX, 67990FVH/0.65ML (Subcutaneous Solution Reconstituted) 1 For Solution once SC for 0 days Quantity: 1 {For_Solution} Refills: 0 Ordered:29-Apr-2013 MATT Maloney Start : 08-Apr-2013 End : 29-Apr-2013 Inactive Cefadroxil 500 MG Oral Capsule 1 (one) Capsule bid for 7 days Quantity: 14 {Capsule} Refills: 0 Ordered:12-Jan-2017 Wendy June DO Start : 12-Jan-2017 End : 12-Jan-2017 Discontinued ERGOCALCIFEROL, 01223YAJQ (Oral Capsule) 1 Capsule every 2 months for 0 days Quantity: 12 {Capsule} Refills: 3 Ordered:28-Apr-2014 Nell Enrique MD Start : 28-Apr-2014 End : [...] QD for 0 days Refills: 0 Ordered:24-Apr-2009 Nell Enrique MD Start : 15-Jul-2008 End : [...] ventilator, and rec. multpile units PRBC's @ [facility] 09-18 Status: Inactive as of 13-Mar-2017 BMI [...] Status: Resolved as of 31-Jul-2017 WWV Comments: 7- pap due 12-11 Status: Inactive as of [...] Density Study Result: Comments: See Note; NOTES: [facility] Imaging Services [address] [place] [address] Dexa Bone Density Study MR#: [id number] Acct: [id number] Name: BRISSA SOARES Rep #: [id number] : 1940 F 77 From: Sergio Perea MD PCP: Lesly Chairez NP Status: REG CLI Study: Dexa Bone Density Study Date of Exam: 03/22/18 Exam# [id number] Ordering Dr: Lesly Chairez HUMAN RESOURCES ADVISOR-C STUDY: D UAL ENERGY X-RAY ABSORPTIOMETRY / [...] Sergio Perea MD at 15:16 EDT Tel [phone], Service support , CC: Lesly Chairez NP Commercial Real Estate Manager: Signed 22-Mar-2018 SCREENING MAMM (CAD), BILAT Result: Comments: See Note; NOTES: [facility] Imaging Services [address] [place] [address] SCREENING MAMM (CAD), BILAT MR#: [id number] Acct: [id number] Name: BRISSA SOARES Rep #: [id number] : 1940 F 77 From: Sergio Perea MD PCP: Lesly Chairez NP Status: REG CLI Study: SCREENING MAMM (CAD), BILAT Date of Exam: 03/22/18 Exam# [id number] Ordering Dr: Lesly Chairez HUMAN RESOURCES ADVISOR-C MAMMOGRAPHY - BILATERAL SCREENING REASON FOR EXAM: [...] delay biopsy of a clinically suspicious abnormality. [id number] Electronically Signed: Sergio Perea MD at 10:28 EDT Tel [phone], Service support , CC: Lesly Chairez NP Commercial Real Estate Manager: Signed 12-Feb-2018 HIP, UNI W/ Pelvis 2-3 Views Result: Comments: See Note; NOTES: [facility] Imaging Services [address] [place] [address] HIP, UNI W/ Pelvis 2-3 Views MR#: [id number] Acct: [id number] Name: BRISSA SOARES Rep # : [id number] : 1940 F 77 From: Justo Kennedy MD PCP: Lesly Chairez NP Status: REG CLI Study: HIP, UNI W/ Pelvis 2-3 Views Date of Exam: 02/12/18 Exam# [id number] Ordering Dr: Lesly Chairez STUD Y: X-RAY [...] Service support , CC: Lesly Chairez NP Commercial Real Estate Manager: Signed 16-Nov-2017 Abdomen Complete Result: Comments: See Note; NOTES: [facility] Imaging Services [address] [place] [address] Abdomen Complete MR#: [id number] Acct: [id number] Name: BRISSA SOARES Rep #: [id number] : 1940 F 77 From: Yulissa Reilly MD PCP: Lesly Chairez NP Status: REG CLI Study: Abdomen Complete Date of Exam: 11/16/17 Exam# [id number] Ordering Dr: Lesly Chairez STUDY: ABDOMINAL ULTRASOUND [...] Service support , CC: Lesly Chairez NP Commercial Real Estate Manager: Signed 22-Sep-2017 Cardiology Visit Report Result: Comments: See Note; NOTES: [facility] [address] [place] [address] OFFICE VISIT Date of Service: 09/21/17 MR#: [id number] Acct: [id number] Name: BRISSA SOARES Rep #: [id number] : 1940 Provider: Serenity Villarreal Age/Sex: 77/F Location: [facility] Status: Signed HPI HPI Details: BRISSA SOARES, [...] 152/68 Intake Visit Reasons: 6 M FU Linoleum Printer Required: No Accompanied by: none Is patient in pain?: No Allerg ies atorvastatin calcium [From Lipitor] Allergy (Verified 09/21/17 11:28) Unknown ezetimibe [From Zetia] Allergy (Verified 09/21/17 11:28) Unknown lisinopril Allergy (Verified 09/21/17 11:28) Unknown n eomycin [Neomycin] Allergy (Verified 09/21/17 11:28) Unknown neomycin sulfate [From Neosporin (wll-dco-kclhw)] Allergy (Verified 09/21/17 11:28) Itching polymyxin B [...] History Palpitations (Chronic) 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 transplanted heart: al[place]q heart Essential hypertension I10 Hypertension type: essential hypertension Pure hypercholesterolemia E78.00; E78.0 Hyperlipidemia type: pure hypercholesterolemia 09/22/17 0925 <Electronically signed by Serenity MAGAÑA> Date Serenity MAGAÑA Cosigner Signature: Date (if applicable) CC: Lesly Chairez NOHEMY 20-Mar-2017 Wound Ctr History AND Physical Result: Comments: See Note; NOTES: [facility] W[facility]aling [facility] [address] [place] [address] Wound Ctr History AND Physical 03/20/17 1426 MR#: [id number] Acct: [id number] Name: BRISSA WHITE Rep #: [id number] : 1940 76 From: Bao Brothers MD PCP: Lesly Chairez Status: REG RCR Y Location: WC (1) 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 She has been treated at the [facility] wound healing center in recent [...] 11/15/15 15:31) Unknown neomycin sulfate [From Neosporin (jff-fya-tgfqj)] Allergy (Verified 11/15/15 15:31) Itching polymyxin B [...] Date Recorded By Document 03/20/17 14:23 DV [id number] 03/05 11/19 14:25 DV Pain Scale: 0-10 [...] Date Recorded By Document 03/20/17 14:23 DV [id number] 03/20/17 14:25 DV Pain Scale: 0-10 Numeric [...] (CAD), BILAT Result: Comments: See Note; NOTES: [facility] Imaging Services [address] [place] [address] SCREENING MAMM (CAD), BILAT MR#: [id number] Acct: [id number] Name: BRISSA SOARES Rep #: [id number] : 1940 F 76 From: Jessica Gonzalez MD PCP: Lesly Chairez Status: REG CLI Study: SCREENING MAMM (CAD), BILAT Date of Exam: 03/09/17 Exam# [id number] Ordering Dr: Lesly Chairez MAMMOGRAPHY - BILATERAL [...] delay biopsy of a clinically suspicious abnormality. 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 Curr ent Visit: No Code(s): I70.249 - ATHSCL KASHIA ARTERIES OF LEFT LEG W ULCERATION OF UNSP SITE (2) Cellulitis of left leg Status: Resolved Current Visit: No Code(s): L03.116 - CELLULITIS OF LEFT LOWER L IMB (3) Failure to thrive Status: Acute Current Visit: No Code(s): MZE5347 - (4) Generalized weakness Status: Acute Current [...] She has been garrett juan at the [facility] wound healing center in recent [...] 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 fatty [...] 11/15/15 15:31) Unknown neomycin sulfate [From Neosporin (wan-sxn-ndjqf)] Allergy (Verified 11/15/15 15:31) Itching polymyxin B [...] Date Recorded By Document 03/06/17 13:13 IZZY [id number] 03/06/17 13:22 Wound Center Nurse 1 [Edema Assessment] - Lower Limb Edema Present Yes -Right Calf (cm) 38 -Right Ankle (cm) 24.5 -Left Calf (cm) 40.5 -Left Ankle (cm) 23.2 WC - Nurse 2 - General Ulcer CM Notes Start: 03/06/17 13:13 Freq: Status: Active Activity Type Activity Date Activity User E-Sign Co-S ign Detail Recorded Client Recorded Date Recorded By Document 03/06/17 14:12 DV [id number] 03/06/17 14:13 DV Pain Scale: 0-10 Numeric [...] Recorded Date Recorded By Document 14:12 DV [id number] 03/06/17 14:13 DV Pain Scale: 0-10 Numeric [...] category. Weight loss has been recommended. The patien t has been advised to collaborate with her primary care physician in terms of weight loss options. 03/06/17 1422 <Electronically signed by Bao Brothers MD> Date Bao Brothers MD CC: Signed 27-Feb-2017 Wound Ctr History AND Physical Result: Comments: See Note; NOTES: [facility] Wound Healing Center [address] [place] [address] Wound Ctr History AND Physical 02/27/17 1412 MR#: [id number] Acct: [id number] Name: BRISSA WHITE Rep #: [id number] : 1940 76 From: Bao Brothers MD [...] extremities. She has been treated at the [facility] wound healing center in recent weeks for an ulceration in the left medial supramalleolar area. With a combination of conservative treatment measures, including use of Milena and Tubigrip's, the [facility] er healed. The ulceration is now completely [...] 11/15/15 15:31) Unknown neomycin sulfate [From Neosporin (cku-qrd-dldmq)] Allergy (Verified 11/15/15 15:31) Itching polymyxin B [...] Recorded Date Recorded By Document 02/27/17 13:25 [facility] [id number] 02/27/17 13:34 [facility] Wound Center Nurse 1 [Edema Assessment] -Lower Limb Edema Present Yes -Right Calf (cm) 39.7 -Right Ankle (cm) 26 -Left Calf (cm) 41 -Left Ankle (cm) 26.5 WC - Nurse 2 - General Ulcer CM Notes Start: 02/03/17 13:02 Freq: Status: Active Activity Type Activity Date Activit y User E-Sign Co-Sign Detail Recorded Client Recorded Date Recorded By Document 02/27/17 13:50 DV [id number] 02/27/17 13:50 DV Pain Scale: 0-10 Numeric [...] Recor ded By Document 02/27/17 13:50 DV [id number] 02/27/17 13:50 DV Pain Scale: 0-10 Numeric [...] AND Physical Result: Comments: See Note; NOTES: [facility] Wound Healing Center [address] [place] [address] Wound Ctr History AND Physical 02/20/17 1309 MR#: [id number] Acct: [id number] Name: BRISSA WHITE Rep #: [id number] : 1940 76 From: Bao Brothers MD [...] extremities. 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 Surgical History: - - 2008 had colonoscopy rec ent egd fistula in [...] 11/15/15 15:31) Unknown neomycin sulfate [From Neosporin (xfj-tdk-qfgyu)] Allergy (Verified 11/15/15 15:31) Itching polymyxin B [...] the medial surface. Wound Measurements and Assessment JEAN PAUL - Nurse 1 - General Ulcer Measurem ent Start: 02/03/17 13:02 Freq: Status: Active Activity Type Activity Date Activity User E-Sign Co-Sign Detail Recorded Client Recorded Date Recorded By Document 02/20/17 12:18 [facility] [id number] 02/20/17 12:21 [facility] JEAN PAUL - Nurse 2 - General Ulcer CM Notes Start: 02/03/17 13:02 Freq: Status: Active Activity Type Activity Date Activity User E-Sign Co-Sign Detail Recorded Client Recorded Date Recorded By Document 02/20/17 12:53 DV [id number] 02/20/17 13:04 DV Pain Scale: 0-10 Numeric [...] Date Recorded By Document 02/20/17 12:53 DV [id number] 02/20/17 13:04 DV Pain Scale: 0-10 Nu [...] has been advised to collaborate with her [facility] physician in terms of weight loss options. 02/20/17 1330 <Electronically signed by Bao Brothers MD> Date Bao Brothers MD CC: Signed 17-Feb-2017 Lower Ext Arterial Study Result: Comments: See Note; NOTES: [facility] Cardiovascular Services [address] [place] [address] 02/17/17 1612 MR#: [id number] Acct: [id number] Name: BRISSA SOARES Rep #: [id number] : 1940 76 From: Bao Brothers MD Attending Dr: Andre Gutierrez MD Status: DIS RCR Ordering Dr: Date: 02/17/17 Location: [facility] Sex: F C Admitted: Arterial Study - [...] Chairez Date Dictated: 02/17/171611 Date Transcribed: 02/17/171611 Commercial Real Estate Manager: PASCALE Signed 14-Feb-2017 Venous Duplex Lower Extremity Result: Comments: See Note; NOTES: [facility] Cardiovascular Services [address] [place] [address] Venous Duplex US - Jasson Extrem 02/14/17 1252 MR#: [id number] Acct: [id number] Name: BRISSA SOARES Rep #: [id number] : 1940 76 From: Bao Brothers MD [...] was called and/or faxed posterior calf. to [facility]. Interpret ation Summary Deep veins of [...] DPM Date Dictated: 02/14/17 1252 Date Transcribed: 02/14/171528 Commercial Real Estate Manager: Signed 07-Feb-2017 Wound Ctr History AND Physical Result: Comments: See Note; NOTES: [facility] Wound Healing Center [address] [place] [address] Wound Ctr History AND Physical 02/07/17 1617 MR#: [id number] Acct: [id number] Name: BRISSA WHITE Rep #: [id number] : 1940 76 From: Paul Srinivasan DPM [...] 11/15/15 15:31) Unknown neomycin sulfate [From Neosporin (gjq-swo-kxysu)] Allergy (Verified 11/15/15 15:31) Itching polymyxin B [...] 15:30 02/07/17 15:30 General: Alert, Oriented x3, Central Office Associate perative, No apparent distress HEENT: Atraumatic, Normocephalic [...] Date Recorde d By Document 02/07/17 15:30 [id number] 02/07/17 15:32 Wound Center Nurse 1 WC - Nurse 2 - General Ulcer CM Notes Start: 02/03/17 13:02 Freq: Status: Active Activity Type Activity Date Activity User E-Sign Co-Sign Detail Recorded Client Recorded Date Recorded By Document 02/07/17 16:11 [id number] 02/07/17 16:12 Wound Center Nurse 2 [Procedure/Treatment] [...] Date Recorded By Document 02/07/17 16:11 IZZY [id number] 02/07/17 16:12 [facility] Nurse 2 [...] pressure ulcer, venous incompetence, arterial insufficiency Plan: HUMAN RESOURCES ADVISOR exam. SQ/excision al debridement as above. Cont [...] venous duplex. Will refer to Dr. Brothers prdixon. Monitor for redness, pus, malodor, warmth, pain, inc swelling as well as for N/V/F/C, calf pain, thigh pain, chest pain, SOB and go to [facility] ED with these. 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 She developed a wound on the [...] 11/15/15 15:31) Unknown neomycin sulfate [From Neosporin (qja-swp-gwkkf)] Allergy (Verified 15:31) Itching polymyxin B [Polymyxin [...] Department Summary Result: Comments: See Note; NOTES: [facility] Medical Records Department [address] [place] [address] Emergency Department Summary 01/15/17 1100 MR#: [id number] Acct: [id number] Name: RBISSA SOARES Rep #: [id number] : 1940 76 From: Jackson Marshall MD [...] problems, contact your Primary Care Provider. Call [facility] ([phone]) or report to [facility] Emergency Room. Call 911 if necessary. 01/16/17 0747 <Electronically signed by Jackson Marshall MD> Date Jackson Marshall MD Cosign er Signature (If Indicated): Date CC: Lesly Chairez 09-Dec-2016 Spine Lumbar (Routine) Result: Comments: See Note; NOTES: [facility] Imaging Services [address] [place] [address] Vernell 4d Spine Lumbar (Routine) MR#: [id number] Acct: [id number] Name: BRISSA SOARES Rep #: [id number] : 1940 F 76 From: Isidro Cole MD PCP: Lesly Chairez Status: REG CLI Study: Spine Lumbar (Routine) Date of Exam: 12/09/16 Exam# [id number] Ordering Dr: Lesly Chairez ST UDY: MRI LUMBAR SPINE WITHOUT CONTRAST REASON [...] 7:17 EDT Tel , Service support [phone]- [phone], CC: Lesly Chairez Commercial Real Estate Manager: Signed 23-Sep-2016 L/S Spine Min 4 Views Result: Comments: See Note; NOTES: [facility] Imaging Services [address] [place] [address] Verdana 4d L/S Spine Min 4 Views MR#: [id number] Acct: [id number] Name: BRISSA SOARES Ziyad Wilkins ep #: [id number] : 1940 F 76 From: Alisia Kinsey PCP: Lesly Chairez Status: REG CLI Study: L/S Spine Min 4 Views Date of Exam: 09/23/16 Exam# [id number] Ordering Dr: Lesly Chairez STUDY: X-RAY - [...] , Service support , CC: Lesly Chairez Commercial Real Estate Manager: Signed 08-Apr-2016 Humerus min 2 Views Result: Comments: See Note; NOTES: [facility] Imaging Services [address] [place] [address] Verdana 4d Humerus min 2 Views MR#: [id number] Acct: [id number] Name: BRISSA SOARES p #: [id number] : 1940 F 75 From: Sergio Perea MD PCP: Lesly Chairez Status: REG CLI Study: Humerus min 2 Views Date of Exam: 04/08/16 Exam# [id number] Ordering Dr: Lesly Chairez STUDY: X-R AY [...] Sergio Perea MD at 15:05 EDT Tel [phone], Service support [phone], CC: Lesly Chairez Commercial Real Estate Manager: Signed 29-Feb-2016 Bilat Scrn Digital AND CAD Result: Comments: See Note; NOTES: [facility] Imaging Services [address] [place] [address] Verdana 4d Bilat Scrn Digital AND CAD MR#: [id number] Acct: [id number] Name: FER SOARES Rep #: [id number] : 1940 F 75 From: Sergio Perea MD PCP: Lesly Chairez Status: REG CLI Study: Bilat Scrn Digital AND CAD Date of Exam: 02/29/16 Exam# [id number] Ordering Dr: Lesly Chairez MAMMOGRAPHY - BILATERAL [...] delay biopsy of a clinically suspicious abnormality. [id number] Electronically Signed: Sergio Perea MD at 11:19 EDT Tel [phone], Service support [phone], CC: Lesly Chairez Commercial Real Estate Manager: Signed 25-Dec-2015 Gastric Emptying Study Result: Comments: See Note; NOTES: [facility] Imaging Services [address] [place] [address] Verdana 4d Gastric Emptying Study MR#: [id number] Acct: [id number] Name: BRISSA WHITE Ziyad Rep #: [id number] : 1940 F 75 From: Jhon Carreno DO PCP: Nell Enrique MD Status: REG CLI Study: Gastric Emptying Study Date of Exam: 12/25/15 Exam# [id number] Ordering Dr: Jonathan Blanco MD CLINICAL: 75-year-old [...] 38: 186, 2010). Electronically Signed: Jhon Carreno DO at 7:59 EDT Tel , Service support [phone], CC: Nell Enrique MD; Jonathan Oates Commercial Real Estate Manager: Signed 15-Nov-2015 Emergency Department Summary Result: Comments: See Note; NOTES: [facility] Medical Records Department [address] [place] [address] Emergency Department Summary MR#: [id number] Acct: [id number] Name: BRISSA SOARES Rep #: [id number] : 1940 75 From: Eladio Mai MD PCP: Nell Enrique MD Status: DEP ER DATE OF [...] with Dr. Oates. MD Parul Saunders C: Nell Oates MD T: NTS JOB: [id number] 11/15/152037 <Electronically signed by Eladio Mai MD> Date Eladio Mai MD Cosigner Signature (If Indicated): Date CC: Nell Enrique MD; Jonathan Oates Date Dictated: 11/15/151620 Date Transcribed: 11/15/151620 Commercial Real Estate Manager: Signed 15-Nov-2015 Discharge Instruction Result: Comments: See Note; NOTES: [facility] Medical Records Department [address] [place] [address] Discharge Instruction 11/15/151617 MR#: [id number] Acct: [id number] Name: BRISSA SOARES Rep #: [id number] : 1940 75 From: Eladio Mai MD PCP: Nell Enrique MD Status: REG ER ED Disposition - Plan for ED Patient: Disposition: Home or Assisted Living Chief Complaint: GI Bleed Instructions: ED GI Bleed, Upper (Stable) Referrals: Nell Enrique MD [Primary Care Provider] - Jonathan Oates MD [STAFF PHYSICIAN] - 3-5 Days What to do if you have P roblems For any increased pain, shortness of breath, bleeding, nausea or vomiting, chest pain, or any unexpected problems, contact your doctor. Call [facility] ([phone]) or report to the closest Emergency Room. Call 911 if necessary. 11/15/151620 <Electronically signed by Eladio Mai MD> Date Eladio granados Signature (If Indicated): Date CC: Nell Enrique MD 26-Sep-2015 Brain/Head without Contrast Result: Comments: See Note; NOTES: [facility] Imaging Services [address] [place] [address] Verdana 4d Brain/Head without Contrast MR#: [id number] Acct: [id number] Name: BRISSA SOARES Rep #: [id number] : 1940 F 75 From: Garry Knowles DO PCP: Nell Enrique MD Status: REG ER Study: Brain/Head without Contrast Date of Exam: 09/26/15 Exam# [id number] [facility] Dr: Jacques Hunt MD STUDY: CT BRAIN [...] No acute intracranial abnormality. Electronically Signed: Garry DO Benson at 21:04 EDT Tel , Service support [phone], F ax [phone] CC: Nell Enrique MD; Jacques Hunt MD Commercial Real Estate Manager: Signed 03-Aug-2015 Shoulder min 2 Views Result: Comments: See Note; NOTES: [facility] Imaging Services [address] [place] [address] Verdana 4d Shoulder min 2 Views MR#: [id number] Acct: [id number] Name: BRISSA FERNANDO Rep #: [id number] : 1940 F 75 From: Sergio Perea MD PCP: Nell Enrique MD Status: REG CLI Study: Shoulder min 2 Views Date of Exam: 08/03/15 Exam# [id number] Ordering Dr: Lesly Huang sa STUDY: X-RAY [...] Sergio Perea MD at 11:31 EST Tel [phone], Service support [phone], RAD/Shoulder min 2 Views IMPRESSION: 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 Electronically Signed: Sergio Perea MD at 11:31 EST Tel [phone], Service support [phone], CC: Lesly Chaierz; Nell Enrique MD Commercial Real Estate Manager: Signed 16-Feb-2015 [employer] AND CAD Result: Comments: See Note; NOTES: [facility] Imaging Services [address] [place] [address] Breast Imaging Report MR#: [id number] Acct: [id number] Name: BRISSA SOARES Rep # : [id number] : 1940 F 74 From: Sergio Perea MD PCP: Nell Enrique MD Status: REG CLI Study: [employer] Date of Exam: 02/16/15 Exam# [id number] Ordering Dr: Nell Enrique MD MAMMOGRAPHY - BILATERAL SCREENING REASON [...] Sergio Perea MD at 10:27 EDT Tel [phone], Service support [phone], CC: Nell Enrique MD Commercial Real Estate Manager: Signed 06-Feb-2014 [employer] CAD Result: Comments: See Note; NOTES: [facility] Imaging Services [address] [place] [address] Breast Imaging Report MR#: [id number] Acct: [id number] Name: BRISSA SOARES Rep #: [id number] : 1940 F 73 From: Sergio Perea MD PCP: Nell Enrique MD Status: REG CLI Exam# [id number] Ordering Dr: Nell Enrique MD MAMMOGRAPHY - BILATERAL SCREENING REASON FOR EXTatum M: Female, 73 years old. Routine annual [...] MD at 11:35 EDT , Service support [phone], CC: Nell Enrique MD Commercial Real Estate Manager: Signed 25-Apr-2013 Dexa Bone Density Study (HP) Result: Comments: See Note; NOTES: [facility] Imaging Services [address] [facility] [place] [address] Bone Density Report MR#: [id number] Acct: [id number] Name: BRISSA SOARES Rep #: [id number] : 1940 F 72 From: Sergio Perea MD PCP: Nell Enrique MD Status: REG CLI Study: Dexa Bone Density Study (HP) Date of Exam: 04/25/13 Exam# [id number] Ordering Dr: Nell Enrique MD STUDY: DUAL ENERGY X-RAY ABSORPTIOMETRY [...] April 25, 2013 at 3:13:26 PM EST [phone] Electronically Signed GP/GP If you are the referring physician and would like to consult with the radiologist who provided this interpretati on, please contact Sergio Perea M.D. at [phone]. If this radiologist is unavailable, you will be directed to another radiologist to assist. If you are a patient with a question regarding this report, please contact your referring physician directly. Professional Interpretation Provided By: [employer], Phone , These documents contain legally protecte [...] return or destruction of these documents. CC: Nell Enrique MD Commercial Real Estate Manager: Signed Immunization Name Dates Details Influenza (3 [...] smoker Vital Signs Date Test Result Details :36 Temperature 98.6 f Comments: Method: Temporal [...] kg/m2 Body Surface Area Calculated 1.71 m2 50-Cml-063304:23 Temperature 97.7 f Pulse 74 /min Comments: [...] kg/m2 Body Surface Area Calculated 1.92 m2 :23 Temperature 97.8 f Comments: Method: Oral Pulse [...] 0.00 cm Results Date Description Value Details 56-Oxd-758989:39 MICROALBUMIN: CREATININE RATIO Comments: PATIENT WAS FASTINGPERFORMED BY: [facility] Hqyldl8262 [facility] [id number] ([id number]) AND (80029) Alb/Creat Ratio 6.6 {mg/g_creat} (Normal) Range: 0.0-30.0 Albumin, Urine 3.5 ug/mL (Normal) Creatinine, Urine 53.0 mg/dL (Normal) 16-Bzo-210994:39 TSH (84439) Comments: PATIENT WAS FASTINGPERFORMED BY: [facility]6370 [facility] [id number] TSH 1.080 {uIU/mL} (Normal) Range: 0.450-4.500 71-Axl-011768:39 CBC, Platelets & Auto Diff Comments: PATIENT WAS FASTINGPERFORMED BY: [facility]6370 [facility] [id number] (78067) Immature Grans (Abs) 0.0 {x10E3/uL} (Normal) Range: [...] 3.77-5.28 WBC 6.2 {x10E3/uL} (Normal) Range: 3.4-10.8 11-Zlz-366637:39 Metabolic Panel, Comprehensive Comments: PATIENT WAS FASTINGPERFORMED BY: [facility] Ste[employer] StudioHunterdon Medical CenterXxvhhl6045 [facility] [id number] (05647) ALT (SGPT) 12 [iU]/L (Normal) Range: 0-32 [...] 8-27 Glucose 88 mg/dL (Normal) Range: 65-99 94-Meh-667048:39 LIPID PANEL (07344) Comments: PATIENT WAS FASTINGPERFORMED BY: [employer] Ste[employer] StudioHunterdon Medical CenterYdksgw2953 [facility] [id number] LDL/HDL Ratio 1.1 {ratio} (Normal) Range: 0.0-3.2 Comments: LDL/HDL Ratio Men Women 1/2 Avg.Risk 1.0 1.5 Av g.Risk 3.6 3.2 2X Avg.Risk 6.2 5.0 3X Avg.Risk 8.0 6.1 LDL Cholesterol Calc 82 mg/dL (Normal) Range: 0-99 VLDL Cholesterol Jessica 12 mg/dL (Normal) Range: 5-40 HDL Cholesterol 77 mg/dL (Normal) Triglycerides 62 mg/dL (Normal) Range: 0-149 Cholesterol, Total 171 mg/dL (Normal) Range: 100-199 6-Tla-499615:16 Basic Metabolic Panel (8) Comments: PATIENT NOT FASTINGPERFORMED BY: [employer] Fbcxbx6464 [facility]Formerly [facility] [id number] Calcium 9.8 mg/dL (Normal) Range: 8.7-10.3 Carbon [...] 8-27 Glucose 76 mg/dL (Normal) Range: 65-99 6-Fmb-810693:16 CBC With Differential/Platelet Comments: PATIENT NOT FASTINGPERFORMED BY: [employer] Jurqre[address] [facility] [id number] Immature Grans (Abs) 0.0 {x10E3/uL} (Normal) Range: [...] 3.77-5.28 WBC 6.5 {x10E3/uL} (Normal) Range: 3.4-10.8 5-Vbg-104359:18 FECAL OCCULT- Tubes sent home (39813) FECAL OCCULT HGB ASSAY, QUAL, 1-3 SIMULTANEOU negative (Normal) 1-Lxu-856331:56 HgA1C , Office (14600) HgA1C , Office 5.2 % (Normal) Range: 4.6 - 7.1 1-Irh-570489:56 Blood Glucose , Office (98248) Blood Glucose , Office 81 (Normal) 86-Osi-075031:28 VITAMIN B12 AND FOLATES Comments: PATIENT WAS FASTINGPERFORMED BY: [facility]6370 [facility] [id number] (95546) Folate (Folic Acid), Serum >20.0 ng/mL (Normal) Comments: A serum folate concentration of less than 3.1 ng/mL isconsidered to represent clinical deficiency. Vitamin B12 171 pg/mL (Abnormal) Range: 232-1245 91-Xxw-521729:28 CALCIFEDIOL (13671) Comments: PATIENT WAS FASTINGPERFORMED BY: [employer]osCo Snjkzv6314 [facility] [place] [id number] Vitamin D, 25-Hydroxy 22.4 ng/mL (Abnormal) Range: 30.0-100.0 Comments: Vitamin D deficiency has been defined by the [place] ofMedicine and an Endocrine Society practice guideline as alevel of serum 25-OH vitamin D less than 20 ng/mL (1,2).The Endocrine Society went on to further define vitamin Dinsufficiency as a level between 21 and 29 ng/mL (2).1. IOM ([place] of Medicine). 2010. Dietary reference intakes for calcium and D. [place]: The National Academies Press.2. Tono MF, Jonatan NC, Fabiola HUANG, et al. Evaluation, treatment, and prevention of vitamin D deficiency: an Endocrine Society clinical practice guideline. JCEM. 2010; 96(7):1911-30. 17-Jtj-642293:28 MICROALBUMIN: CREATININE RATIO Comments: PATIENT WAS FASTINGPERFORMED BY: [facility] Kzhzrm0441 [facility] [id number] (06345) AND (30315) Alb/Creat Ratio <4.0 {mg/g_creat} (Normal) Range: 0.0-30.0 Albumin, Urine <3.0 ug/mL (Normal) Creatinine, Urine 74.9 mg/dL (Normal) 55-Idz-114570:28 TSH (84027) Comments: PATIENT WAS FASTINGPERFORMED BY: [facility] Lklsin5670 [facility] [id number] TSH 1.070 {uIU/mL} (Normal) Range: 0.450-4.500 58-Eab-767400:28 CBC, Platelets & Auto Diff Comments: PATIENT WAS FASTINGPERFORMED BY: [facility] Ekbypr0448 [facility] [id number] (55279) Immature Grans (Abs) 0.0 {x10E3/uL} (Normal) Range: [...] 3.77-5.28 WBC 5.6 {x10E3/uL} (Normal) Range: 3.4-10.8 61-Chp-987504:28 Metabolic Panel, Comprehensive Comments: PATIENT WAS FASTINGPERFORMED BY: LabCoHunterdon Medical CenterQqbwgr4125 [facility] [id number] (93719) ALT (SGPT) 16 [iU]/L (Normal) Range: 0-32 [...] Glucose, Serum 82 mg/dL (Normal) Range: 65-99 24-Zsv-068334:28 Lipid Panel (79503) Comments: PATIENT WAS FASTINGPERFORMED BY: LabCoHunterdon Medical CenterRlcgnc4096 [facility] [id number] LDL/HDL Ratio 1.3 {ratio_units} (Normal) Range: 0.0-3.2 Comments: LDL/HDL Ratio Men Women 1/2 Avg.Risk 1.0 1.5 Av g.Risk 3.6 3.2 2X Avg.Risk 6.2 5.0 3X Avg.Risk 8.0 6.1 LDL Cholesterol Calc 101 mg/dL (Abnormal) Range: 0-99 VLDL Cholesterol Jessica 11 mg/dL (Normal) Range: 5-40 HDL Cholesterol 79 mg/dL (Normal) Triglycerides 53 mg/dL (Normal) Range: 0-149 Cholesterol, Total 191 mg/dL (Normal) Range: 100-199 37-Yxo-403118:55 Urinalysis, Office (23533) UA - LEUKOCYTE ESTERASE Small (Normal) UA [...] Negative (Normal) :42 Blood Glucose , Office (97117) Comments: 91 Blood Glucose , Office 91 (Normal) :42 HgA1C , Office (17561) HgA1C , Office 5.1 % (Normal) Range: 4.6 - 7.1 :31 HgA1C , Office (01284) HgA1C , Office 5.2 % (Normal) Range: 4.6 - 7.1 :31 Blood Glucose , Office (01830) Blood Glucose , Office 78 (Normal) :13 Anaerobic & Aerobic Comments: PATIENT NOT FASTINGPERFORMED BY: [facility] Atjiog3549 [facility] [id number] Information: LEFT LEG SRC:FL Culture (86517) Antimicrobial MIHEAD (Normal) Comments: S = Susceptible; [...] Final report (Normal) :51 HgA1C , Office (50209) HgA1C , Office 5.2 % (Normal) Range: 4.6 - 7.1 :51 Blood Glucose , Office (80418) Blood Glucose , Office 83 (Normal) :21 LIPID PANEL (43169) Comments: PATIENT WAS FASTINGPERFORMED BY: LabCoHunterdon Medical CenterYhjoxm7311 [facility] [id number] LDL/HDL Ratio 1.5 {ratio_units} (Normal) Range: 0.0-3.2 Comments: LDL/HDL Ratio Men Women 1/2 Avg.Risk 1.0 1.5 Av g.Risk 3.6 3.2 2X Avg.Risk 6.2 5.0 3X Avg.Risk 8.0 6.1 LDL Cholesterol Calc 88 mg/dL (Normal) Range: 0-99 VLDL Cholesterol Jessica 21 mg/dL (Normal) Range: 5-40 HDL Cholesterol 59 mg/dL (Normal) Triglycerides 106 mg/dL (Normal) Range: 0-149 Cholesterol, Total 168 mg/dL (Normal) Range: 100-199 58-Xrp-623641:21 CBC, Platelets & Auto Diff Comments: PATIENT WAS FASTINGPERFORMED BY: LabCoHunterdon Medical CenterAdmqau3682 [facility] [id number] (74078) Immature Grans (Abs) 0.0 {x10E3/uL} (Normal) Range: [...] 3.77-5.28 WBC 6.0 {x10E3/uL} (Normal) Range: 3.4-10.8 73-Noe-787342:21 Metabolic Panel, Comprehensive Comments: PATIENT WAS FASTINGPERFORMED BY: [facility] Xlnnuk2852 [facility] [id number]; OV 11/28 (04319) ALT (SGPT) 8 [iU]/L (Normal) Range: 0-32 [...] Glucose, Serum 73 mg/dL (Normal) Range: 65-99 79-Pej-340390:21 TSH (98492) Comments: PATIENT WAS FASTINGPERFORMED BY: LabGini.netHunterdon Medical CenterMgritz9452 [facility] [id number] TSH 0.748 {uIU/mL} (Normal) Range: 0.450-4.500 :33 HgA1C , Office (95210) HgA1C , Office 5.4 % (Normal) Range: 4.6 - 7.1 86-Ywv-29360:33 Blood Glucose , Office (56306) Blood Glucose , Office 76 (Normal) :20 Microscopic Examination Comments: PATIENT WAS FASTINGPERFORMED BY: Steel Steed StudioLea Regional Medical CenterZpxmqq3422 [facility] [id number] Bacteria Few (Normal) Mucus Threads Present (Normal) Epithelial Cells (non renal) 0-10 {/hpf} (Normal) Range: 0 - 10 RBC 0-2 {/hpf} (Normal) Range: 0 - 2 WBC 11-30 {/hpf} (Abnormal) Range: 0 - 5 :20 MICROALBUMIN: CREATININE RATIO Comments: PATIENT WAS FASTINGPERFORMED BY: [employer] Steed StudioLea Regional Medical CenterQiodbd1078 [facility] [id number] (41138) AND (21200) Microalb/Creat Ratio 16.3 {mg/g_creat} (Normal) Range: 0.0-30.0 Microalbumin, Urine 21.2 ug/mL (Normal) Creatinine, Urine 130.4 mg/dL (Normal) :20 URINALYSIS (45643) Comments: PATIENT WAS FASTINGPERFORMED BY: [employer] [facility] [id number] Microscopic Examination See below: (Normal) Comments: Microscopic was indicated and was performed. Nitrite, Urine Negative (Normal) Urobilinogen,Semi-Qn 0.2 mg/dL (Normal) Range: 0.2-1.0 Bilirubin Negative (Normal) Occult Blood Negative (Normal) Ketones Negative (Normal) Glucose Negative (Normal) Protein Negative (Normal) WBC Esterase 1+ (Abnormal) Appearance Clear (Normal) Urine-Color Yellow (Normal) pH 6.0 (Normal) Range: 5.0-7.5 Specific [place] 1.022 (Normal) Range: 1.005-1.030 :20 Metabolic Panel, Comprehensive Comments: PATIENT WAS FASTINGPERFORMED BY: [facility] ConcursosApex Medical Center6370 [facility] [id number] (27961) ALT (SGPT) 9 [iU]/L (Normal) Range: 0-32 [...] Glucose, Serum 80 mg/dL (Normal) Range: 65-99 6-Jpi-325830:20 Lipid Panel (32004) Comments: PATIENT WAS FASTINGPERFORMED BY: LabCoHunterdon Medical CenterVhsugl0346 [facility] [id number] LDL/HDL Ratio 1.4 {ratio_units} (Normal) Range: 0.0-3.2 Comments: LDL/HDL Ratio Men Women 1/2 Avg.Risk 1.0 1.5 Av g.Risk 3.6 3.2 2X Avg.Risk 6.2 5.0 3X Avg.Risk 8.0 6.1 LDL Cholesterol Calc 98 mg/dL (Normal) Range: 0-99 VLDL Cholesterol Jesscia 19 mg/dL (Normal) Range: 5-40 HDL Cholesterol 70 mg/dL (Normal) Triglycerides 95 mg/dL (Normal) Range: 0-149 Cholesterol, Total 187 mg/dL (Normal) Range: 100-199 7-Ylv-727783:20 CBC, Platelets & Auto Diff Comments: PATIENT WAS FASTINGPERFORMED BY: LabApex Medical Center6370 [facility] [id number] (80684) Immature Grans (Abs) 0.0 {x10E3/uL} (Normal) Range: [...] 3.77-5.28 WBC 5.4 {x10E3/uL} (Normal) Range: 3.4-10.8 2-Lxc-556824:20 CALCIFEDIOL (49023) Comments: PATIENT WAS FASTINGPERFORMED BY: LabCoHunterdon Medical CenterTorgwd5524 [facility] [id number] Vitamin D, 25-Hydroxy 30.8 ng/mL (Normal) Range: 30.0-100.0 Comments: Vitamin D deficiency has been defined by the [place] ofMedicine and an Endocrine Society practice guideline as alevel of serum 25-OH vitamin D less than 20 ng/mL (1,2).The Endocrine Society went on to further define vitamin Dinsufficiency as a level between 21 and 29 ng/mL (2).1. IOM ([place] of Medicine). 2010. Dietary reference intakes for calcium and D. [place]: The National Academies Press.2. Tono MF, Jonatan DYER, Fabiola HUANG, et al. Evaluation, treatment, and prevention of vitamin D deficiency: an Endocrine Society clinical practice guideline. JCEM. 2010; 96(7):1911-30. :53 HgA1C , Office (95492) HgA1C , Office 5.3 % (Normal) Range: 4.6 - 7.1 :53 Blood Glucose , Office (20393) Blood Glucose , Office 79 (Normal) :38 HgA1C , Office (75835) HgA1C , Office 5.5 % (Normal) Range: 4.6 - 7.1 :02 PT (Prothrobim Time) Comments: so; PATIENT NOT FASTINGPERFORMED BY: [facility] Ejzsxf7670 [facility] [id number] Information: [id number] (11741) Prothrombin Time 20.8 {sec} (Abnormal) Range: 9.1-12.0 INR 2.0 (Abnormal) Range: 0.8-1.2 Comments: Reference interval is for non-anticoagulated patients. . Suggested INR therapeutic range for Vitamin K anta gonist therapy: Standard Dose (moderate intensity therapeutic range): 2.0 - 3.0 Higher intensity therapeutic range 2.5 - 3.5 :07 CBC W/Diff, Automated Comments: [facility] [address] [place], [place], [id number] ; Dr oates Absolute Lymph 2.18 {X10_3/ul} [...] K/mm3 (Normal) Range: 4.4-11.0 :36 CREATININE CLEARANCE (00156) Comments: PATIENT NOT FASTINGPERFORMED BY: LabCoHunterdon Medical CenterKxsgbb0652 [facility] [id number] Creatinine Clearance 61 mL/min (Abnormal) Range: 88-128 Comments: The above range is based on 1.73 square meter average body surfacearea. Creatinine, Ur 24hr 575.7 {mg/24_hr} (Abnormal) Range: 800.0-1800.0 Creatinine, Urine 60.6 mg/dL (Normal) :36 Total Protein,24 Hour Urine Comments: PATIENT NOT FASTINGPERFORMED BY: LILIANA [facility]ota dos ConcursosApex Medical Center6370 [facility] [id number] (61242) Prot,24hr calculated 191.0 {mg/24_hr} (Abnormal) Range: 30.0-150.0 Protein,Total,Urine 20.1 mg/dL (Normal) :36 METABOLIC PANEL, COMPREHENSIVE Comments: PATIENT NOT FASTINGPERFORMED BY: LILIANA Rota dos ConcursosHca Midwest DivisionBicspj8045 [facility] [id number] (43849) ALT (SGPT) 8 [iU]/L (Normal) Range: 0-32 [...] auto diff Comments: PATIENT NOT FASTINGPERFORMED BY: LILIANA [facility] Xybcet6225 E[address] [place] [id number] Information: [id number] (40183) Immature Grans (Abs) 0.0 {x10E3/uL} (Normal) Range: [...] (Normal) Range: 3.4-10.8 :44 HgA1C , Office (66975) HgA1C , Office 5.2 % (Normal) Range: 4.6 - 7.1 :14 HH, Hemoglobin AND Hematocrit Comments: [facility] [address] [place], [address] HCT 35.4 % (Abnormal) Range: 37-47 HGB 11.3 g/dL (Abnormal) Range: 12.0-15.0 75-Eef-563012:25 Basic Metabolic Profile (BMP) Comments: 'TROP' Serial specimen #1, #2, #3, or #4: 1[facility] [address]gaz[address] [place], [place], [address] GAP 3 (Abnormal) Range: 5-15 CO2 29.0 [...] <126 mg/dLsuggests IMPAIRED HOMEOSTASIS per A.D.A. criteria. 20-Csv-519901:25 CBC W/Diff, Automated Comments: [facility] [address]vhs[address] [place], [place], [address] Absolute Lymph 2.14 {X10_3/ul} (Normal) Range: 0.83-4.51 [...] 4.2-5.4 WBC 5.7 K/mm3 (Normal) Range: 4.4-11.0 91-Mpf-036952:25 Troponin-I Comments: 'TROP' Serial specimen #1, #2, #3, or #4: [address] [place] [address] [address] [place], [address] TROPONIN-I < 0.02 ng/mL (Normal) Comments: TROPONIN-I EXPECTED VALUES <0.05 NEGATIVE 0.06 - 0.59 AT RISK OF AL > OR = 0.60 SUGGEST AL 57-Vhm-104226:25 METABOLIC PANEL, COMPREHENSIVE Comments: PATIENT NOT FASTINGPERFORMED BY: LabCoHunterdon Medical CenterKrtkhf9901 [facility] [id number] (26847) ALT (SGPT) 11 [iU]/L (Normal) Range: 0-32 [...] be decreased and K increased. Clinicalcorrelation indicated. 89-Kjx-960108:25 CBC with auto diff Comments: PATIENT NOT FASTINGPERFORMED BY: [facility] Dsrahl2440 [facility] [id number] Information: [id number] (03418) Immature Grans (Abs) 0.0 {x10E3/uL} (Normal) Range: [...] 3.4-10.8 :11 HH, Hemoglobin AND Hematocrit Comments: [facility] [address]ax[address] [place], [place], [address] ; ordred by another doctor [facility] HCT 24.1 % (Abnormal) Range: 37-47 HGB 7.9 g/dL (Abnormal) Range: 12.0-15.0 :25 Urinalysis, Complete Comments: How was Urine Obtained? SENIOR C DEVELOPER TO [facility] [address] [place], [place], [id number] MUCUS, URINE 0 SEEN {/hpf} (Normal) BACTERIA [...] (Normal) CLARITY Clear (Normal) COLOR Yellow (Normal) 12-Sep-20153:00 Amylase Comments: 'TROP' Serial specimen #1, #2, #3, or #4: [facility] [address]htnh[address] [place], [place], [address] LENNY 29 U/L (Normal) Range: 25-115 12-Sep-20153:00 CBC W/Diff, Automated Comments: [facility] [address] [place], [place], [address] Absolute Lymph 1.14 {X10_3/ul} (Normal) Range: 0.83-4.51 [...] 4.2-5.4 WBC 8.5 K/mm3 (Normal) Range: 4.4-11.0 :00 Comprehensive Metabolic Profil Comments: 'TROP' Serial specimen #1, #2, #3, or #4: 1[facility] [address] [place], [address] GAP 11 (Normal) Range: 5-15 CO2 22.0 [...] 126 mg/dLsuggests DIABETES MELLITUS per A.D.A. criteria. 12-Sep-20153:00 Lactic Acid Comments: [facility] [address] [place], [address] LACTIC ACID 3.8 mmol/L (Abnormal) Range: 0.4-2.0 12-Sep-20153:00 Lipase Comments: 'TROP' Serial specimen #1, #2, #3, or #4: [address] [place] [address] [place], [address] LIPASE 84 U/L (Normal) Range: 73-393 12-Sep-20153:00 Partial Thromboplast Time Comments: [facility] [address] [place], [address] PTT 30.2 s (Normal) Range: 24.1-36.2 12-Sep-20153:00 Prothrombin Time w/INR Comments: [place] [address] [place], [address] INR 3.7 (Abnormal) Comments: CRITICAL VALUE REPEATED AND VERIFIED. CALLED TO [place] [phone] Nia Delong.RESULTS READ BACK BY SAME . PROTIME 35.8 s (Abnormal) Range: 11.7-14.9 12-Sep-20153:00 Troponin-I Comments: 'TROP' Serial specimen #1, #2, #3, or #4: [address] [place] [address] [place], [address] TROPONIN-I 0.05 ng/mL (Normal) Comments: TROPONIN-I EXPECTED VALUES <0.05 NEGATIVE 0.06 - 0.59 AT RISK OF AL > OR = 0.60 SUGGEST AL 47-Xdx-355215:09 INR Fingerstick Comments: [facility] LaboratoryPoint [place] [address] [place] [address] INR ISTAT 1.60 (Normal) Comments: Critical Value > 3.5 46-Yns-722902:09 Prothrombin Time Fingerstick Comments: [place] [address] [place] [address] PROTIME ISTAT 19.2 {SEC} (Abnormal) Range: 11.9-14.4 Comments: Reference Range 11.9 - 14.4 56-Qpv-126491:23 URINE CAMERON CULTURE-IDENTIFICATN Comments: PATIENT NOT FASTINGPERFORMED BY: [facility] Pnyfnm5156 [address] [place] [id number] Information: [id number] (08506) Result 1 BETAGB (Abnormal) Comments: Beta hemolytic [...] (CLSI 2011) Urine Final report (Abnormal) Culture,Comprehensive 26-Adk-284181:05 Urinalysis, Office (31104) UA - LEUKOCYTE ESTERASE Small (Normal) UA - NITRITE Negative (Normal) URINE UROBILINGN HAIDER TIMED Normal mg/dL (Normal) UA - PROTEIN Negative mg/dL (Normal) UA - PH 7 (Normal) UA - BLOOD Hemolyzed Large (Normal) UA - SPECIFIC GRAVITY 1.010 (Normal) UA - KETONES Negative mg/dL (Normal) UA - BILIRUBIN Negative (Normal) UA - GLUCOSE Negative (Normal) 46-Nsd-341970:22 INR Fingerstick Comments: [facility] LaboratoryPoint [place] [address] [place] [address] INR ISTAT 2.70 (Normal) Comments: Critical Value > 3.5 76-Okw-278085:22 Prothrombin Time Fingerstick Comments: [place] [address] [place] [address] PROTIME ISTAT 30.9 {SEC} (Abnormal) Range: 11.9-14.4 Comments: Reference Range 11.9 - 14.4 85-Xqe-377252:37 INR Fingerstick Comments: [place] [address] [address] [place] [address] INR ISTAT 2.90 (Normal) Comments: Critical Value > 3.5 60-Zeq-370817:37 Prothrombin Time Fingerstick Comments: [place] [address] [place] [address] PROTIME ISTAT 32.8 {SEC} (Abnormal) Range: 11.9-14.4 Comments: Reference Range 11.9 - 14.4 :41 INR Fingerstick Comments: [place] [address] [place] [address] INR ISTAT 2.50 (Normal) Comments: Critical Value > 3.5 :41 Prothrombin Time Fingerstick Comments: [place] [address] [place] [address] PROTIME ISTAT 28.4 {SEC} (Abnormal) Range: 11.9-14.4 Comments: Reference Range 11.9 - 14.4 45-Ngp-909207:30 INR Fingerstick Comments: [place] [address] [place] [address] INR ISTAT 2.40 (Normal) Comments: Critical Value > 3.5 :30 Prothrombin Time Fingerstick Comments: [place] [address] [place] [address] PROTIME ISTAT 27.3 {SEC} (Abnormal) Range: 11.9-14.4 Comments: Reference Range 11.9 - 14.4 :51 PT (Prothrobim Time) Comments: standing order fingerstick or serum; PATIENT NOT FASTINGPERFORMED BY: [facility] Ykpfch1845 [facility] [id number] Information: [id number] ([id number]) Prothrombin Time 33.2 {sec} (Abnormal) Range: 9.1-12.0 INR 3.2 (Abnormal) Range: 0.8-1.2 Comments: Reference interval is for non-anticoagulated patients. . Suggested INR therapeutic range for Vitamin K anta gonist therapy: Standard Dose (moderate intensity therapeutic range): 2.0 - 3.0 Higher intensity therapeutic range 2.5 - 3.5 09-Boc-667739:05 HgA1C , Office (88790) HgA1C , Office 5.5 % (Normal) Range: 4.6 - 7.1 68-Bcd-606668:50 Prothrombin Time w/INR Comments: [facility] [address] [place], [address] INR 2.5 (Normal) PROTIME 26.9 s (Abnormal) Range: 11.7-14.9 09-Aht-565240:05 Prothrombin Time w/INR Comments: [address] [place], [address] INR 2.4 (Normal) PROTIME 26.1 s (Abnormal) Range: 11.7-14.9 89-Dva-358049:31 Prothrombin Time w/INR Comments: [address] [place], [address] INR 3.1 (Normal) PROTIME 31.9 s (Abnormal) Range: 11.7-14.9 61-Our-217908:14 Prothrombin Time w/INR Comments: [place] [address] [place], [address] INR 2.9 (Normal) PROTIME 30.4 s (Abnormal) Range: 11.7-14.9 37-Ywf-104691:40 Prothrombin Time w/INR Comments: [place] [address] [place], [address] INR 2.4 (Normal) PROTIME 26.3 s (Abnormal) Range: 11.7-14.9 82-Zwe-657325:00 PT (Prothrobim Time) Comments: standing order; PATIENT NOT FASTINGPERFORMED BY: [facility] Mndifv9487 [facility] [id number] Information: [id number] ([id number]) Prothrombin Time 17.3 {sec} (Abnormal) Range: 9.1-12.0 INR 1.7 (Abnormal) Range: 0.8-1.2 Comments: Reference interval is for non-anticoagulated patients. . Suggested INR therapeutic range for Vitamin K anta gonist therapy: Standard Dose (moderate intensity therapeutic range): 2.0 - 3.0 Higher intensity therapeutic range 2.5 - 3.5 70-Pgf-517262:00 Hemoglobin Glyclated (HGB A1C) Comments: PATIENT NOT FASTINGPERFORMED BY: [facility] HospitalGini.netRachel Ville [id number] [facility] [id number] ([id number]) Hemoglobin A1c 5.7 % (Abnormal) Range: 4.8-5.6 Comments: . Increased risk for diabetes: 5.7 - 6.4 Diabetes: >6.4 Glycemic control for adults with diabetes: <7.0 59-Vhn-499248:34 Prothrombin Time w/INR Comments: Test performed at:[facility] [address] [place] [address] 134701 INR 2.3 (Normal) PROTIME 25.4 s (Abnormal) Range: 11.7-14.9 :54 Prothrombin Time w/INR Comments: Test performed at:[facility] [address] [place] [address] INR 2.6 (Normal) PROTIME 27.6 s (Abnormal) Range: 11.7-14.9 56-Vnw-123789:50 PT (Prothrobim Time) Comments: so; PATIENT NOT FASTINGPERFORMED BY: [facility]6370 [facility] [id number] Information: [id number] ([id number]) Prothrombin Time 35.6 {sec} (Abnormal) Range: 9.1-12.0 INR 3.4 (Abnormal) Range: 0.8-1.2 Comments: Reference interval is for non-anticoagulated patients. . Suggested INR therapeutic range for Vitamin K anta gonist therapy: Standard Dose (moderate intensity therapeutic range): 2.0 - 3.0 Higher intensity therapeutic range 2.5 - 3.5 62-Bha-569915:42 Prothrombin Time w/INR Comments: Test performed at:[facility] [address] [place] [address] INR 1.9 (Normal) PROTIME 22.2 s (Abnormal) Range: 11.7-14.9 :10 Prothrombin Time w/INR Comments: Test performed at:[facility] [address] [place] [address] INR 2.5 (Normal) PROTIME 26.7 s (Abnormal) Range: 11.7-14.9 59-Qim-088042:49 CBC with auto diff Comments: copy of all labs to Dr. martinez; PATIENT WAS FASTINGPERFORMED BY: [facility]CoHunterdon Medical CenterDwcgls7158 [facility] [id number] Information: [id number] (17984) Immature Grans (Abs) 0.0 {x10E3/uL} (Normal) Range: [...] 6.0 {x10E3/uL} (Normal) Range: 3.4-10.8 :49 CALCIFIDIOL (89308) VIT D 25 Comments: PATIENT WAS FASTINGPERFORMED BY: [employer] Vxhpny3160 [facility] [id number] Vitamin D, 25-Hydroxy 28.0 ng/mL (Abnormal) Range: 30.0-100.0 Comments: Vitamin D deficiency has been defined by the [place] ofMedicine and an Endocrine Society practice guideline as alevel of serum 25-OH vitamin D less than 20 ng/mL (1,2).The Endocrine Society went on to further define vitamin Dinsufficiency as a level between 21 and 29 ng/mL (2).1. IOM ([place] of Medicine). 2010. Dietary reference intakes for calcium and D. [place]: The National Academies Press.2. Tono MF, Jonatan DYER, Fabiola HUANG, et al. Evaluation, treatment, and prevention of vitamin D deficiency: an Endocrine Society clinical practice guideline. JCEM. 2010; 96(7):1911-30. :49 MICROALBUMIN: CREATININE RATIO Comments: PATIENT WAS FASTINGPERFORMED BY: [facility]6370 [facility] [id number]; apt. 03-02-[birth year] (37663) AND (82253) Microalb/Creat Ratio 23.8 {mg/g_creat} (Normal) Range: 0.0-30.0 Microalbumin, Urine 17.2 ug/mL (Abnormal) Range: 0.0-17.0 Creatinine, Urine 72.3 mg/dL (Normal) Range: 15.0-278.0 :49 METABOLIC PANEL, COMPREHENSIVE Comments: PATIENT WAS FASTINGPERFORMED BY: [facility] StudioHunterdon Medical CenterIelkme6450 [facility] [id number] (35649) ALT (SGPT) 7 [iU]/L (Normal) Range: 0-32 [...] Glucose, Serum 82 mg/dL (Normal) Range: 65-99 19-Rho-786239:49 LIPID PANEL (95732) Comments: PATIENT WAS FASTINGPERFORMED BY: [facility]CoHunterdon Medical CenterWfamut9467 [facility] [id number] LDL/HDL Ratio 1.0 {ratio_units} (Normal) Range: 0.0-3.2 [...] (Normal) Range: 100-199 :26 HgA1C , Office (26050) HgA1C , Office 5.6 % (Normal) Range: 4.6 - 7.1 :26 Blood Glucose , Office (37176) Blood Glucose , Office 102 (Normal) :27 Prothrombin Time w/INR Comments: Test performed at:[facility] [address] [place] [address] INR 3.3 (Normal) PROTIME 33.6 s (Abnormal) Range: 11.7-14.9 :35 Prothrombin Time w/INR Comments: Test performed at:[facility] [address] [place] [address] INR 2.7 (Normal) PROTIME 28.9 s (Abnormal) Range: 11.7-14.9 :18 Prothrombin Time w/INR Comments: Test performed at:[facility] P[address]no[address] [facility] [place] [address] INR 2.5 (Normal) PROTIME 27.0 s (Abnormal) Range: 11.7-14.9 :37 Prothrombin Time w/INR Comments: Test performed at:[facility] [address] [facility] [place] [address] INR 2.2 (Normal) PROTIME 24.4 s (Abnormal) Range: 11.7-14.9 :13 Prothrombin Time w/INR Comments: Test performed at:[facility] [address] [place] [address] INR 2.4 (Normal) PROTIME 26.2 s (Abnormal) Range: 11.7-14.9 :48 PT INR 2.4 (Normal) PTP 25.8 s (Abnormal) Range: 11.7-14.9 :43 HgA1C , Office (09571) HgA1C , Office 5.8 % (Normal) Range: 4.6 - 7.1 :43 Blood Glucose , Office (02974) Blood Glucose , Office 98 (Normal) 03-Fvs-219225:15 CBCD ALC 2.63 {X10_3/ul} (Normal) Range: 0.83-4.51 [...] 4.2-5.4 WBC 5.0 K/mm3 (Normal) Range: 4.4-11.0 :15 CMP GAP 6 (Normal) Range: 5-15 CO2 [...] 7-18 GLU 80 mg/dL (Normal) Range: 70-110 13-Exn-712741:15 LIPID VLDL 19 mg/dL (Normal) Range: 5-40 [...] CHOL 130 mg/dL (Normal) Comments: <200 mg/dL Xapnsbbai021-510 mg/dL Borderline>240 mg/dL High Risk 70-Tsg-885694:15 PT INR 2.7 (Normal) PTP 28.2 s (Abnormal) Range: 11.7-14.9 57-Igb-482408:15 UAC Comments: How was Urine Obtained? CLEAN CATCH [...] Comments: Please note revised PROTIME reference range wgsukrele94/14/15. 8-Ios-805662:27 PT INR 1.6 (Normal) PTP 19.1 s (Abnormal) Range: 11.7-14.9 Comments: Please note revised PROTIME reference range chkubnhxa44/14/15. :55 HgA1C , Office (25694) HgA1C , Office 6.0 % (Normal) Range: 4.6 - 7.1 :55 Blood Glucose , Office (02970) Blood Glucose , Office 103 (Normal) :55 PT INR 2.3 (Normal) PTP 24.9 s (Abnormal) Range: 11.7-14.9 Comments: Please note revised PROTIME reference range khnxlidfa32/14/15. 9-:51 PT INR 2.1 (Normal) PTP 21.9 [...] CHOL 153 mg/dL (Normal) Comments: <200 mg/dL Mnvdvxkbe567-789 mg/dL Borderline>240 mg/dL High Risk TRIG 93 mg/dL (Normal) Range: 0-199 Comments: Serum Triglycerides Reference IntervalNormal <150 mg/dLBorderline high 150 - 199 mg/dLHigh 200 - 499 mg/ dLVery High > or = 500 mg/dL :08 Blood Glucose , Office (37047) Blood Glucose , Office 90 (Normal) :08 HgA1C , Office (22566) HgA1C , Office 6.0 % (Normal) Range: [...] (Abnormal) Range: 11.9-14.4 :12 HgA1C , Office (10541) HgA1C , Office 6.8 % (Normal) Range: 4.6 - 7.1 :12 Blood Glucose , Office (45526) Blood Glucose , Office 109 (Normal) :20 [...] CHOL 167 mg/dL (Normal) Comments: <200 mg/dL Ppjgandhu903-779 mg/dL Borderline>240 mg/dL High Risk TRIG 155 [...] (Prothrobim Time) Comments: PATIENT NOT FASTINGPERFORMED BY: [address] [id number] Information: [id number] (66877) Prothrombin Time 18.3 {sec} (Abnormal) Range: 9.1-12.0 INR 1.8 (Abnormal) Range: 0.8-1.2 Comments: Reference interval is for non-anticoagulated patients. . Suggested INR therapeutic range for Vitamin K anta gonist therapy: Standard Dose (moderate intensity therapeutic range): 2.0 - 3.0 Higher intensity therapeutic range 2.5 - 3.5 03-Cvy-752079:06 PT (Prothrobim Time) Comments: PATIENT NOT FASTINGPERFORMED BY: [facility]6370 [facility] [id number] Information: [id number] (84569) Prothrombin Time 29.0 {sec} (Abnormal) Range: 9.1-12.0 INR 2.8 (Abnormal) Range: 0.8-1.2 Comments: Reference interval is for non-anticoagulated patients. . Suggested INR therapeutic range for Vitamin K anta gonist therapy: Standard Dose (moderate intensity therapeutic range): 2.0 - 3.0 Higher intensity therapeutic range 2.5 - 3.5 :23 PT (Prothrobim Time) Comments: PATIENT NOT FASTINGPERFORMED BY: [facility]6370 [facility] [id number] Information: [id number] ORDER NO DRAW F (72787) Prothrombin Time 31.6 {sec} (Abnormal) Range: 9.1-12.0 INR 3.0 (Abnormal) Range: 0.8-1.2 Comments: Reference interval is for non-anticoagulated patients. . Suggested INR therapeutic range for Vitamin K anta gonist therapy: Standard Dose (moderate intensity therapeutic range): 2.0 - 3.0 Higher intensity therapeutic range 2.5 - 3.5 4-Vvy-085346:23 TSH (57062) Comments: recheck in 3-4 weeks; PATIENT NOT FASTINGPERFORMED BY: [facility] Cwirlf4363 Chowdary RoadDublin [place] [id number] TSH 1.150 {uIU/mL} (Normal) Range: 0.450-4.500 0-Elt-492037:23 T4, FREE (THYROXINE) Comments: recheck in 3-4 weeks; PATIENT NOT FASTINGPERFORMED BY: [facility] Fntcgo[address] [facility]in [place] [id number] Information: [id number] (58943) T4,Free(Direct) 1.08 ng/dL (Normal) Range: 0.82-1.77 :23 T3, FREE (TRIDOTHYRONINE) (46701) Comments: recheck in 3-4 weeks; PATIENT NOT FASTINGPERFORMED BY: [facility] Zitiim[address] [facility]in [place] [id number] Triiodothyronine,Free,Serum 2.2 pg/mL (Normal) Range: 2.0-4.4 :44 PT (Prothrobim Time) Comments: results to Dr Enrique; PATIENT NOT FASTINGPERFORMED BY: [facility] Qohgfz0495 [facility] [place] [id number] Information: [id number] (61828) Prothrombin Time 31.4 {sec} (Abnormal) Range: 9.1-12.0 INR 3.0 (Abnormal) Range: 0.8-1.2 Comments: Reference interval is for non-anticoagulated patients. . Suggested INR therapeutic range for Vitamin K anta gonist therapy: Standard Dose (moderate intensity therapeutic range): 2.0 - 3.0 Higher intensity therapeutic range 2.5 - 3.5 :44 TSH (28845) Comments: PATIENT NOT FASTINGPERFORMED BY: [facility] Dcfpzw[address] [facility]in [place] [id number] TSH 0.139 {uIU/mL} (Abnormal) Range: 0.450-4.500 :44 T4, FREE (THYROXINE) (91794) Comments: PATIENT NOT FASTINGPERFORMED BY: [facility]6370 [facility] [id number] T4,Free(Direct) 1.18 ng/dL (Normal) Range: 0.82-1.77 :44 T3, FREE (TRIDOTHYRONINE) (42087) Comments: PATIENT NOT FASTINGPERFORMED BY: [place] [address] [facility] [id number] Triiodothyronine,Free,Serum 2.1 pg/mL (Normal) Range: 2.0-4.4 :02 SED RATE ERYTHROCYTE (16665) Comments: PATIENT NOT FASTINGPERFORMED BY: [facility]6370 [facility] [id number] Sedimentation Rate-Westergren 18 mm/h (Normal) Range: 0-40 :02 TSH (54477) Comments: PATIENT NOT FASTINGPERFORMED BY: [facility]6370 [facility] [id number] TSH 0.358 {uIU/mL} (Abnormal) Range: 0.450-4.500 :02 VIKI (ANTINUCLEAR ANTIBODY) Comments: PATIENT NOT FASTINGPERFORMED BY: [facility]6370 [facility] [id number] (34929) VIKI Direct Negative (Normal) :02 CBC WITH MANUAL DIFF Comments: PATIENT NOT FASTINGPERFORMED BY: [facility]6370 [facility] [id number] Information: [id number] (44051) Immature Grans (Abs) 0.0 {x10E3/uL} (Normal) Range: [...] of these values in the reference population. 0-Iiw-031717:02 METABOLIC PANEL, COMPREHENSIVE Comments: PATIENT NOT FASTINGPERFORMED BY: [facility] HospitalCoRachel [facility]ille [address] [place] [id number] (38419) ALT (SGPT) 11 [iU]/L (Normal) Range: 0-32 [...] Glucose, Serum 94 mg/dL (Normal) Range: 65-99 47-Awc-753965:20 PT INR 2.0 (Normal) PTP 21.6 s (Abnormal) Range: 11.9-14.4 99-Pef-021185:24 BILAT SCRN DIGITAL & CAD Radiology Report [...] M.D.January 31, 2013 at 6:48:38 P M [id number] Signed RU/RU If you are the referring physician and would like to consult with theradiologist who provided this interpretation, please contact Taz Stack at . If this radiologist is unavailable, youwillbe directed to another radiologist to assist. If you are a patient with a question regarding this report, pleasecontactyour referring physician dire ctly. Professional Interpretation Provided By: [employer], Phone , These documents contain legally protected [...] or destructionofthese documents. Dictated on 01/31/131847 by NenoJhonTranscribed on 01/31/131904 by ITS IMPORTSign by Jhon Lazcano on 01/31/131905 Sign by: yousifJhon :53 Blood Glucose , Office (31495) Blood Glucose , Office 115 (Normal) :53 HgA1C , Office (43393) HgA1C , Office 6.1 % (Normal) Range: 4.6 - 7.1 :52 PT INR 1.7 (Normal) PTP 18.6 s (Abnormal) Range: 11.9-14.4 :56 Aerobic Bacterial Culture Comments: PERFORMED BY: [facility]6370 [facility] [id number] Information: SRC:UB Result 1 Mixed skin yaakov (Normal) Aerobic Bacterial Culture Final report (Normal) :37 PT INR 2.5 (Normal) PTP 25.6 s (Abnormal) Range: 11.9-14.4 :03 HgA1C , Office (61368) HgA1C , Office 7.1 % (Normal) Range: [...] (Normal) PTP 30.3 s (Abnormal) Range: 11.9-14.4 03-Byq-277926:57 CBCMD RBCM NORM C+C {NORMAL} (Normal) BAS [...] 0.6-1.0 GLU 91 mg/dL (Normal) Range: 70-110 51-Mgd-584005:57 LIPID HDL 72 mg/dL (Normal) Comments: Reference [...] Very High > or = 500 mg/dL 92-Tur-380949:57 MIACRE tMICROCREAT 62.2 {mg/g_CRE} (Abnormal) MIALB 25.7 mg/L (Normal) CREU 41.3 mg/dL (Normal) :57 VITD 55.0 ng/mL (Normal) Range: 30.0-100.0 Comments: Vitamin D deficiency has been defined by the [place] ofMedicine and an Endocrine Society practice guideline as alevel of serum 25-OH vitamin D less than 20 ng/mL (1,2).The Endocrine Society went on to further define vitamin Dinsufficiency as a level between 21 and 29 ng/mL (2).1. IOM ([place] of Medicine). 2010. Dietary reference intakes for calcium and D. [place]: The National Academies Press.2. Tono MF, Jonatan NC, Zach-Clifton HUANG, et al. Evaluation, treatment, and prevention of vitamin D deficiency: an Endocrine Society clinical practice guideline. JCEM. 2010; 96(7): 1911-30.Performed at: [facility] Lab[address] [id number] Director: Tyrese Arora PhD, Phone: [phone] 05-Mli-125946:56 PT INR 2.7 (Normal) PTP 26.4 s (Abnormal) Range: 11.9-14.4 :28 PT INR 1.6 (Normal) PTP 17.8 s (Abnormal) Range: 11.9-14.4 38-Zxc-879341:04 PT INR 2.2 (Normal) PTP 22.8 s [...] (Abnormal) Range: 11.9-14.4 :28 HgA1C , Office (66284) HgA1C , Office 6.1 % (Normal) Range: 4.6 - 7.1 :28 Blood Glucose , Office (72277) Blood Glucose , Office 154 (Normal) 12-Jjf-821206:15 PT INR 2.5 (Normal) PTP 25.2 s [...] is made with prior studies dated December 20ndAugust 10, 2009. FINDIN GS:The breast composition is composed of [...] Perea M.D.January 30, 2012 at 12:54:04 PM [id number] Signed GP/GP If you are the referring physician and would like to consult with t heradiologist who provided this interpretation, please contact Taz Morrison at [phone]. If this radiologist is unavailable, youwill be directed to another radiologist to assist. If you a re a patient with a question regarding this report, pleasecontactyour referring physician directly. Professional Interpretation Provided By: [employer], Phone , These docu ments contain legally [...] Perea MD on 01/30/12 1432 Sign by: Sergio Perea MD 84-Jsy-381547:58 PT Comments: standing order INR 3.5 (Normal) PTP 32.2 s (Abnormal) Range: 11.9-14.4 59-Kpu-939524:51 PT INR 2.6 (Normal) PTP 25.9 s [...] Alvarez M.D.December 26, 2011 at 10:00:06 AM [phone] Signed RB/RB If y ou are the referring physician and would like to consult with theradiologist who provided this interpretation, please contact Brian Alvarez M.D. at . If this radiologist is unavailable, you will bedirected to another radiologist to assist. If you are a patient with a question regarding this report, pleasecontactyour referring physician directly. Professional Interpretation Provided By: Franky borges, Phone , Dictated on 12/26/11 0846 by Doni Alvarez MDranscribed on 12/26/11 1005 by ITS IMPORTSign by Brian Alvarez MD on 12/26/11 1006 Sign by: Brian Alvarez MD 8-Vjs-650934:15 PT INR 1.9 (Normal) PTP 20.2 s (Abnormal) Range: 11.9-14.4 :46 HgA1C , Office (43231) HgA1C , Office 6.5 % (Normal) Range: 4.6 - 7.1 :46 Blood Glucose , Office (93707) Blood Glucose , Office 107 (Normal) :14 [...] (Abnormal) Range: 11.9-14.4 :14 HgA1C , Office (97848) HgA1C , Office 7.2 % (Abnormal) Range: 4.6 - 7.1 :14 Blood Glucose , Office (08705) Blood Glucose , Office 126 (Normal) :12 [...] s (Abnormal) Range: 11.9-14.4 :22 VIT D,25 72582 45.9 ng/mL (Normal) Range: 30.0-100.0 Comments: Vitamin D deficiency has been defined by the [place] of[place]icine and an Endocrine Society practice guideline as alevel of serum 25-OH vitamin D less than 20 ng/mL (1,2).The Endocrine Society went on to further define vitamin Dinsufficiency as a level between 21 and 29 ng/mL (2).1. IOM ([place] of Medicine). 2011. Dietary reference intakes for calcium and D. [place]: The National Academies Press.2. Tono MF, Jonatan DYER, Fabiola HUANG, et al. Evaluation, treatment, and prevention of vitamin D deficiency: an Endocrine Society clinical practice guideline. JCEM. 2010; 96(7): 1911-30.Performed at: - Lab[address] [id number] Director: Kathleen Lorenzo MD, Phone: [phone] :[phone] PRO TIME INR 2.6 (Normal) PROTIME 26.9 s (Abnormal) Range: 11.9-14.4 :18 PRO TIME INR 1.8 (Normal) PROTIME 20.1 s (Abnormal) Range: 11.9-14.4 :04 HgA1C , Office (92969) HgA1C , Office 5.9 % (Normal) Range: 4.6 - 7.1 :04 Blood Glucose , Office (99347) Blood Glucose , Office 101 (Normal) :12 [...] (Abnormal) Range: 11.9-14.4 :30 HgA1C , Office (31692) HgA1C , Office 6.4 % (Normal) Range: 4.6 - 7.1 C difficile Toxins Negative (Normal) Comments: PERFORMED BY: [facility] [id number] :06 A+B, EIA Occult Blood, Fecal, Negative (Normal) Comments: PERFORMED BY: [address] [id number] :[id number] IA :06 Ova + Parasite Exam Comments: PERFORMED BY: [address] [id number] Result 1 NOCP (Normal) Comments: No ova, cysts, or parasites seen. Ova + Parasite Exam Final report (Normal) Comments: These results were obtained using wet preparation(s) and trichromestained smear. This test does not include testing for Cryptosporidiumparvum, Cyclospora, or Microsporidia. :06 Stool Culture Comments: PERFORMED BY: [address] [id number] Information: SRC:ST E coli Shiga Toxin EIA Negative (Normal) Result 1 NCI (Normal) Comments: No Campylobacter species isolated. Campylobacter Culture Final report (Normal) Result 1 NSS (Normal) Comments: No Salmonella or Shigella recovered. Salmonella/Shigella Screen Final report (Normal) :06 White Blood Cells (WBC), Comments: PERFORMED BY: [facility] [id number] Stool Result 1 NWBC (Normal) Comments: No [...] the entire lumbar spine minimalinamount. Dictated on 01/06/111438 by Keya Nava MDTranscribed on 01/06/112222 by ITS IMPORTSign by Keya Nava MD on 2224 Sign by: Keya Nava MD 01-Csp-880280:42 BILAT SCRN DIGITAL & CAD Radiology Report [...] CREAT 112.8 mg/dL (Normal) :43 VIT D,25 91141 38.3 ng/mL (Normal) Range: 32.0-100.0 Comments: Recent studies consider the lower limit of 32.0 ng/mL to gosia threshold for optimal health.Joseph NOEL. J Nutr. 2004;135(2):317-22.Performed at: [address] [id number]Lab Director: Kathleen Lorenzo MD, Phone: [phone] 4-Xpn-880640:14 CBCD,SMEAR DIFF PLT EST SeeNote (Normal) Comments: [...] 4.2-5.4 WBC 7.1 K/mm3 (Normal) Range: 4.4-11.0 4-Pbj-516557:14 COMP METABOLIC CO2 28.0 mmol/L (Normal) Range: [...] 7-18 GLU 104 mg/dL (Normal) Range: 70-110 1-Fmp-837260:14 LIPID VLDL 23 mg/dL (Normal) Range: 5-40 [...] 200-240 mg/dL Borderline >240 mg/dL High Risk 0-Ldm-056464:14 MICROALB:CRE UR MALB:CREAT 8.0 {mg/g_CRE} (Normal) MICROALBUMIN,UR 5.7 mg/L (Normal) UR CREAT 71.2 mg/dL (Normal) 4-Kna-209926:14 VIT D,25 55224 39.1 ng/mL (Normal) Range: 32.0-100.0 Comments: Recent studies consider the lower limit of 32.0 ng/mL to gosia threshold for optimal health.Joseph NOEL. J Nutr. 2004;135(2):317-22.Performed at: - [facility] [address] [id number] 296Lab Director: Kathleen Lorenzo MD, Phone: [phone] 53-Esn-423339:36 HgA1C , Office (47271) HgA1C , Office 7.5 % (Abnormal) Range: 4.6 - 7.1 18-Kub-080487:36 Blood Glucose , Office (62678) Blood Glucose , Office 108 (Normal) 08-Hdz-09282:41 COMP METABOLIC ALT 24 U/L (Normal) Range: [...] CHOL 148 mg/dL (Normal) Comments: <200 mg/dL Woklfalno393-342 mg/dL Borderline>240 mg/dL High Risk HDL 62 [...] CREAT 78.4 mg/dL (Normal) :41 VIT D,25 01640 37.9 ng/mL (Normal) Range: 32.0-100.0 Comments: Recent studies consider the lower limit of 32.0 ng/mL to gosia threshold for optimal health.Joseph NOEL. J Nutr. 2004;135(2):317-22.Performed at: [facility] LabSteven Ville [address]Lab Director: Kathleen Lorenzo MD, Phone: [phone] :[phone] Blood Glucose , Office (41353) Blood Glucose , Office 97 (Normal) :53 HgA1C , Office (76755) HgA1C , Office 7.1 % (Normal) Range: [...] CHOL 160 mg/dL (Normal) Comments: <200 mg/dL Csmlsubug761-256 mg/dL Borderline>240 mg/dL High Risk TRIG 105 [...] Report See Note (Normal) Comments: Exam Number: [id number] MAMMOGRAM, BILATERAL SCREENING DIGITAL AND CAD HISTORYSix-month [...] mammograms werealso examined with computer-aided detection software (ImageQueplix, [employer]ient, [employer].). Reported By: ZULEYKA LYMAN M.D. 22-Jif-460640:52 Blood Glucose , Office (84806) Blood Glucose , Office 128 (Normal) :24 CBCD,SMEAR DIFF BAND 1 % (Normal) Range: [...] 31 mg/dL (Normal) Range: 5-40 :24 METHYLM [id number] 134 nmol/L (Normal) Comments: SPE Scanned image [...] UR CREAT 79.1 mg/dL (Normal) :24 SPE [id number] Comments: SPE Scanned image report available in [...] electrophoresis scan will follow via computer,mail, or director medical economics delivery. PROTEIN,TOTAL 7.2 g/dL (Normal) Range: 6.0-8.5 :24 VIT D,25 35743 17.0 ng/mL (Abnormal) Comments: SPE Scanned image report available in PCI.See LAB REFERENCE RESULTS form. Range: 32.0-100.0 Comments: Recent studies consider the lower limit of 32.0 ng/mL to gosia threshold for optimal health.Joseph BW. J Nutr. 2004;135(2):317-22. :57 HgA1C , Office (95967) HgA1C , Office 7.3 % (Abnormal) Range: 4.6 - 7.1 :56 Blood Glucose , Office (10686) Blood Glucose , Office 144 (Normal) :52 [...] T PROT 7.1 g/dL (Normal) Range: 6.4-8.2 :52 LIPID CHOL 194 mg/dL (Normal) Comments: <200 [...] mg/dL VLDL 42 mg/dL (Abnormal) Range: 5-40 0-Atv-261084:19 UNILAT RT DIAG DIGITAL & CAD Radiology Report See Note (Normal) Comments: Exam Number: [id number] MAMMOGRAM, UNILATERAL RIGHT DIAGNOSTIC DIGITAL AND CAD [...] mammograms werealso examined with computer-aided detection software ([employer]ag, [employer]ient, [employer].). Reported By: ZULEYKA LYMAN M.D. 12-Ewr-482968:29 HgA1C , Office (21308) HgA1C , Office 6.6 % (Normal) Range: 4.6 - 7.1 53-Ids-024066:29 Blood Glucose , Office (71798) Blood Glucose , Office 115 (Normal) 95-Fjk-55046:53 LIPID CHOL 203 mg/dL (Abnormal) Comments: <200 [...] T PROT 7.4 g/dL (Normal) Range: 6.4-8.2 59-Onu-926127:13 UNILAT RT DIAG DIGITAL & CAD Radiology Report See Note (Normal) Comments: Exam Number: [id number] MAMMOGRAM, UNILATERAL RIGHT DIAGNOSTIC DIGITAL AND CAD [...] mammograms werealso examined with computer-aided detection software (Poken). Reported By: ZULEYKA LYMAN M.D. 44-Hlw-930045:41 BILAT SCRN DIGITAL & CAD Radiology Report See Note (Normal) Comments: Exam Number: [id number] BILATERAL SCREENING MAMMOGRAM COMPARISONComparison is made to [...] The mammogramswere also examined with computer-aided detection software(ZoomInfo.). Reported By: HARPER OLIVERA M.D. 01-Wgn-855901:38 Blood Glucose , Office (51152) Blood Glucose , Office 108 (Normal) :57 [...] (Normal) Range: 6.4-8.2 :42 HgA1C , Office (79710) HgA1C , Office 6.3 % (Normal) Range: 4.6 - 7.1 Comments: :42 CBCD,SMEAR DIFF BASOPHIL 1 % (Normal) [...] mg/dL (Normal) :19 Blood Glucose , Office (01222) Blood Glucose , Office 151 (Normal) Comments: :19 HgA1C , Office (87592) HgA1C , Office 6.0 % (Normal) Range: 4.6 - 7.1 Comments: :11 BREAST UNILATERAL US () Radiology Report See Note (Normal) Comments: Exam Number: [id number] TARGETED RIGHT BREAST ULTRASOUND High resolution real time linear images were obtained at 12:00 at thelevel of palpable abnormality reported by the ordering physician andin the up per outer quadrant of the breast where the patient reportedpain. No solid or cystic mass is seen. No displacement of softtissue planes is identified. IMPRESSIONThere is no ultrasound abnormality identified. Reported By: ZULEYKA LYMAN M.D. 57-Cnt-892815:33 BILAT DIAG DIGITAL & CAD Radiology Report See Note (Normal) Comments: Exam Number: [id number] MAMMOGRAM, BILATERAL DIAGNOSTIC DIGITAL AND CAD HISTORYRoutine [...] mammograms werealso examined with computer-aided detection software (PrepClass, [employer]oste [employer]y.). Reported By: ZULEYKA LYMAN M.D. 0-Syv-652112:16 DEXA BONE DENSITY STUDY (HP) Radiology Report See Note (Normal) Comments: Exam Number: [id number] BONE DENSITOMETRY HISTORYPostmenopausal. TECHNIQUE Bone densitometry of [...] is measured at 3.4% greater than in 1998. The T-value of the left femoral neck is -0.4 which is normal. The T-value of the total left hip is 0.6 which is normal. Bone min eraldensity of the total left hip is measured at 8.4% less than in 1999. IMPRESSIONBone densitometry of the lumbar spine and total left hip are withinnormal limits. Reported By: ZULEYKA LYMAN M.D. 3-Rzu-244366:53 HgA1C , Office (60219) HgA1C , Office 5.8 % (Normal) Range: 4.6 - 7.1 :53 Blood Glucose , Office (54662) Blood Glucose , Office 98 (Normal) 81-Qam-573992:00 CULTURE, URINE URINE CULTURE See Note {CFU/mL} (Normal) Comments: COLONY COUNT 11,000-25,000 ORGANISM 1: MIXED GRAM POS & NEG ORGANISMS 96-Fqc-862433:57 Urinalysis, Office (21737) Comments: ABN signed UA - BILIRUBIN Negative (Normal) UA - BLOOD Negative (Normal) UA - GLUCOSE Negative (Normal) UA - KETONES Negative mg/dL (Normal) UA - LEUKOCYTE ESTERASE Trace (Normal) UA - NITRITE Negative (Normal) UA - PH 7.0 (Normal) UA - PROTEIN Negative mg/dL (Normal) UA - SPECIFIC GRAVITY 1.005 (Normal) URINE UROBILINGN HAIDER TIMED 2 mg/dL (Normal) :07 LIPID CHOL 166 mg/dL (Normal) Comments: <200 [...] mg/dL VLDL 30 mg/dL (Normal) Range: 5-40 :07 LIVER ALB 3.3 g/dL (Abnormal) Range: 3.4-5.0 ALK P 64 U/L (Normal) Range: 50-136 ALT 31 [iU]/L (Normal) Range: 30-65 AST 19 U/L (Normal) Range: 15-37 D BILI 0.15 mg/dL (Normal) Range: 0.00-0.30 T BILI 0.59 mg/dL (Normal) Range: 0.00-1.00 T PROT 7.2 g/dL (Normal) Range: 6.4-8.2 :21 Blood Glucose , Office (13007) Blood Glucose , Office 120 (Normal) :21 HgA1C , Office (16777) HgA1C , Office 5.6 % (Normal) Range: 4.6 - 7.1 Plan of Care Name Dates Details Instructions Non-smoker : Eprescribed prescriptions (G8553) Indication: Non-smoker [...] : Follow up in 3 months for 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 Indication: Cellulitis of left lower leg [...] mellitus type II, controlled Planned Observations CALCIFEDIOL (43237)Indication: Vitamin D deficiency, unspecified On: 41-Uao-634090:06 Request HgA1C , Office (08473)Indication: Diabetes mellitus type II, controlled On: :02 Request Blood Glucose , Office (91451)Indication: Diabetes mellitus type II, controlled On: :02 Request Metabolic Panel, Basic (20560)Indication: Abdominal pain On: 8-Ben-622286:30 Request CBC, Platelets & Auto Diff (33106)Indication: Abdominal pain On: 2-Uki-307481:29 Request CBC WITH MANUAL DIFF (29294)Indication: Anemia On: 39-Tqk-132445:56 Request CBC WITH MANUAL DIFF (89828)Indication: Bleeding ulcer On: :49 Request URINALYSIS, W/ MICRO (41905)Indication: Hypertension, benign On: : Request METABOLIC PANEL, COMPREHENSIVE (10437)Indication: Hypertension, benign On: : Request LIPID PANEL (77174)Indication: Hypertension, benign On: : Request CBC with auto diff (17379)Indication: Hypertension, benign On: :21 Request CALCIFIDIOL (77307) VIT D 25Indication: Vitamin D deficiency, unspecified On: :21 Request CALCIFIDIOL (46181) VIT D 25Indication: Vitamin D deficiency, unspecified On: :29 Request PT (Prothrobim Time) (93664)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 On: :29 Request Comments: standing order for prn checks URINALYSIS, W/ MICRO (69075)Indication: Diabetes mellitus type II, controlled On: :28 Request METABOLIC PANEL, COMPREHENSIVE (21912)Indication: Diabetes mellitus type II, controlled On: :28 Request LIPID PANEL (97974)Indication: Diabetes mellitus type II, controlled On: : Request CBC WITH MANUAL DIFF (99706)Indication: Diabetes mellitus type II, controlled On: :28 Request PT (Prothrobim Time) (89552)Indication: History of DVT (deep vein thrombosis) On: 61-Yqv-83132:04 Request Comments: standing order METABOLIC PANEL, COMPREHENSIVE (15685)Indication: Diabetes mellitus type II, controlled On: :20 Request LIPID PANEL (81523)Indication: Diabetes mellitus type II, controlled On: :20 Request CBC WITH MANUAL DIFF (10883)Indication: Diabetes mellitus type II, controlled On: 30-Pwx-385372:20 Request PT (Prothrobim Time) (30904)Indication: half-way current use of 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 therapy On: 42-Shd-079554:55 Request CALCIFIDIOL (33550) VIT D 25Indication: Vitamin D deficiency, unspecified On: 30-Wpk-095569:35 Request MICROALBUMIN: CREATININE RATIO (56591) AND (57688)Indication: Diabetes mellitus type II, controlled On: 21-Sqf-850078:35 Request METABOLIC PANEL, COMPREHENSIVE (93839)Indication: Diabetes mellitus type II, controlled On: 66-Ezu-176701:35 Request LIPID PANEL (25660)Indication: Diabetes mellitus type II, controlled On: 24-Dye-846158:35 Request CBC WITH MANUAL DIFF (85964)Indication: Diabetes mellitus type II, controlled On: 14-Ezj-408705:35 Request CAMERON CULTURE-OTHER (76772)Indication: Cellulitis, umbilical On: 41-Dcq-698621:06 Request PARATHORMONE (91462)Indication: Hypercalcemia On: 8-Sdl-552055:56 Request CALCIUM SERUM (97102)Indication: Hypercalcemia On: 6-Flo-310989:56 Request Blood Glucose , Office (25966)Indication: Diabetes mellitus type II, controlled On: 8-Sjq-785784:26 Request Metabolic Panel, Basic (60470)Indication: Swelling of limb On: 77-Avf-64765:39 Request Metabolic Panel, Basic (09203)Indication: Diabetes mellitus type II, controlled On: 07-Mxx-510516:48 Request MICROALBUMIN: CREATININE RATIO (34852) AND (41568)Indication: Diabetes mellitus type II, controlled On: 53-Dqe-040980:48 Request CALCIFIDIOL (36740) VIT D 25Indication: Vitamin D deficiency, unspecified On: 73-Cli-036979:46 Request CALCIFIDIOL (50780) VIT D 25Indication: Vitamin D deficiency, unspecified On: :42 Request MICROALBUMIN: CREATININE RATIO (97764) AND (48341)Indication: Diabetes mellitus type II, controlled On: :42 Request METABOLIC PANEL, COMPREHENSIVE (70451)Indication: Diabetes mellitus type II, controlled On: : Request LIPID PANEL (60884)Indication: Diabetes mellitus type II, controlled On: Request CBC WITH MANUAL DIFF (03012)Indication: Diabetes mellitus type II, controlled On: : Request METABOLIC PANEL, COMPREHENSIVE (98596)Indication: Hypercholesteremia On: : Request LIPID PANEL (85462)Indication: Hypercholesteremia On: : Request CALCIFIDIOL (23228) VIT D 25Indication: Vitamin D deficiency, unspecified On: : Request Comments: in three months (approximately) CBC WITH MANUAL DIFF (49066)Indication: Diabetes mellitus type II, controlled On: : Request Comments: in three months (approximately) MICROALBUMIN: CREATININE RATIO (14614) AND (42878)Indication: Diabetes mellitus type II, controlled On: : Request METABOLIC PANEL, COMPREHENSIVE (64055)Indication: Diabetes mellitus type II, controlled On: : Request LIPID PANEL (79555)Indication: Diabetes mellitus type II, controlled On: : Request PT (Prothrobim Time) (56332)Indication: Deep vein thrombosis, unspecified laterality On: : Request Comments: monday CBC (Auto) (12693)Indication: Deep vein thrombosis, unspecified laterality On: : Request Comments: monday PT (Prothrobim Time) (73719)Indication: Deep vein thrombosis, unspecified laterality On: :32 Request Comments: standing order OVA & PARASITE DIR SMEAR (25617)Indication: Diarrhea On: :34 Request OCCULT BLOOD FECES SCREEN (89156)Indication: Diarrhea On: :34 Request LEUKOCYTE COUNT, FECAL (17261)Indication: Diarrhea On: :34 Request C-DIFFICILE, STOOL (70232)Indication: Diarrhea On: :34 Request CAMERON CULTURE-STOOL (86564)Indication: Diarrhea On: :34 Request CALCIFIDIOL (24302) VIT D 25Indication: Vitamin D deficiency, unspecified On: 87-Ofn-700429:09 Request MICROALBUMIN: CREATININE RATIO (61884) AND (94348)Indication: Diabetes mellitus type II, controlled On: 04-Cae-263142:06 Request METABOLIC PANEL, COMPREHENSIVE (62911)Indication: Diabetes mellitus type II, controlled On: :06 Request LIPID PANEL (48675)Indication: Diabetes mellitus type II, controlled On: : Request CBC WITH MANUAL DIFF (82862)Indication: Diabetes mellitus type II, controlled On: 33-Zvu-139686:06 Request MICROALBUMIN: CREATININE RATIO (13194) AND (58798)Indication: Diabetes mellitus type II, controlled On: 7-Tly-423888:16 Request CALCIFIDIOL (88701) VIT D 25Indication: Vitamin D deficiency, unspecified On: 3-Xit-597439:16 Request METABOLIC PANEL, COMPREHENSIVE (49004)Indication: Diabetes mellitus type II, controlled On: 9-Pwm-069562:15 Request LIPID PANEL (61142)Indication: Hypercholesteremia On: 6-Zwy-357996:15 Request TSH (77127)Indication: Hypercholesteremia On: 88-Oxl-098724:58 Request Comments: hair thinning HEPATIC FUNCTION PANEL (40558)Indication: Hypercholesteremia On: 88-Elt-321524:58 Request LIPID PANEL (71790)Indication: Hypercholesteremia On: 08-Rao-681976:58 Request HgA1C , Office (35125)Indication: Diabetes mellitus type II, controlled On: 62-Jpy-826830:52 Request Methylmalonic acid, serum 57269Igtjbpkgsb: Abnormal blood chemistry On: 89-Zyh-120766:26 Request CALCIFIDIOL (56604) VIT D 25Indication: Abnormal blood chemistry On: 26-Plc-404280:26 Request Urine Protein Electrophoresis (UPEP) (31141)Indication: Abnormal blood chemistry On: :26 Request Serum Protein Electrophoresis (SPEP) (98344)Indication: Abnormal blood chemistry On: :26 Request LIPID PANEL (92422)Indication: Diabetes mellitus type II, controlled On: :22 Request METABOLIC PANEL, COMPREHENSIVE (63327)Indication: Diabetes mellitus type II, controlled On: :22 Request CBC WITH MANUAL DIFF (26445)Indication: Diabetes mellitus type II, controlled On: 82-Rkl-825861:22 Request Comments: in three months (approximately) MICROALBUMIN: CREATININE RATIO (23731) AND (73387)Indication: Diabetes mellitus type II, controlled On: :22 Request Metabolic Panel, Comprehensive (45165)Indication: Hypercholesteremia On: :45 Request Lipid Panel (07542)Indication: Hypercholesteremia On: :45 Request HEPATIC FUNCTION PANEL (59175)Indication: Hypercholesteremia On: 64-Kqm-848924:12 Request Lipid Panel (07670)Indication: Hypercholesteremia On: 39-Rmv-669303:11 Request Comments: in three months (approximately) HgA1C , Office (26926)Indication: Diabetes mellitus type II, controlled On: 41-Vyu-672468:38 Request HEPATIC FUNCTION PANEL (56275)Indication: Hypercholesteremia On: :40 Request Lipid Panel (26545)Indication: Hypercholesteremia On: :40 Request MICROALBUMIN: CREATININE RATIO (84612) AND (45504)Indication: Diabetes mellitus type II, controlled On: :29 Request LIPID PANEL (19431)Indication: Diabetes mellitus type II, controlled On: 77-Jft-217005:29 Request METABOLIC PANEL, COMPREHENSIVE (83837)Indication: Diabetes mellitus type II, controlled On: :29 Request CBC WITH MANUAL DIFF (34361)Indication: Diabetes mellitus type II, controlled On: 79-Wwo-428958:29 Request METABOLIC PANEL, COMPREHENSIVE (28916)Indication: Diabetes mellitus type II, controlled On: 35-Qsq-706036:19 Request MICROALBUMIN: CREATININE RATIO (04001) AND (74329)Indication: Diabetes mellitus type II, controlled On: :19 Request LIPID PANEL (07064)Indication: Diabetes mellitus type II, controlled On: :19 Request CBC WITH MANUAL DIFF (88768)Indication: Diabetes mellitus type II, controlled On: :19 Request FECAL OCCULT HGB ASSAY- tubes sent home (84193)Indication: Well woman exam with routine gynecological exam On: 90-Ixc-783146:13 Request Thin prep Pap (37573)Indication: Well woman exam with routine gynecological exam On: 40-Pij-089050:13 Request URINE CAMERON CULTURE-HAIDER COL COUNT On: 69-Rja-758536:10 Request (51455) HEPATIC FUNCTION PANEL (90946)Indication: Hypercholesteremia On: :33 Request Comments: in six months LIPID PANEL (13520)Indication: Hypercholesteremia On: 87-Dnt-236451:33 Request Planned Encounters Medical; General Medical - On: 21-May-2018 10:45 Comprehensive Internal Medicine Lesly Chairez CNP, CNP, Mary E Planned Procedures DEXA SCAN AXIAL SKELETON (72997)By: On: 19-Mar-2018 Intent Lesly Chairez CNP, CNP, Mary E SCREENING DIGITAL TOMOSYNTHESIS OF On: 19-Mar-2018 Intent BREAST (72442)By: Lesly Chairez CNP, CNP, Mary E SCREENING DIGITAL TOMOSYNTHESIS OF On: 12-Feb-2018 Intent BREAST (18097)By: Lesly Chairez CNP Comments: after Mar 09 2018 Lesly Chairez CNP DEXA SCAN AXIAL SKELETON (55522)By: On: 12-Feb-2018 Intent Lesly Chairez CNP, CNP, Mary E Radiology - Hip - RightBy: Mihaela On: 12-Feb-2018 Intent Lesly RODRIGUEZ CNP, Mary E Flu Vaccine (Quadrivalent) 19426Xj: On: 12-Feb-2018 Intent Lesly Chairez CNP, CNP, Mary E Comments: Lot #[id number]-L dltd, IMDose prefilled syringegiven by: ELVIN ELIAS reviewed and ABN signed Kenalog 10 mg (J3301)By: Mihaela RODRIGUEZ, On: 08-Jan-2018 Intent Lesly Chairez CNP Fátima DRAIN/INJECT INTERMED JOINT/BURSA On: 08-Jan-2018 Intent ()By: Lesly Chairez CNP Comments: Rt wrist injection with marcaine and kenalog 1/2cc Lesly RODRIGUEZ Ultrasound - Abdomen CompleteBy: On: 06-Nov-2017 Intent Mihaela RODRIGUEZ FátimaCompa Chairez CNP Fátima B 12 Injection, 1000 mcg (J3420)By: On: 24-Aug-2017 Intent Elgin Miller Comments: Vitamin b12 1000mcg injection lot:[id number]:10/2018R DELT IMpt tolerated well MSMITH,PROJECT ADMINISTRATOR B 12 Injection, 1000 mcg (J3420)By: On: 17-Aug-2017 Intent Mihaela RODRIGUEZ FátimaCompa Chairez CNP Lesly Chatman Comments: vitamin b12 1000mcg injectionlot: [id number]: 10/2018L DELT IMpt tolerated wellAD PROJECT ADMINISTRATOR B 12 Injection, 1000 mcg (J3420)By: On: 07-Aug-2017 Intent Visit, Nurse Comments: Lot #[id number]-10/2018Site- Left dtld, IMDose-prefilled syringegiven by:ELVIN Woo signed B 12 Injection, 1000 mcg (J3420)By: On: 02-Aug-2017 Intent Mihaela RODRIGUEZ FátimaCompa Chairez CNP Fátima Flu Vaccine (Quadrivalent) 23540Sh: On: 13-Mar-2017 Intent Lesly Chairez CNP, CNP Fátima Comments: InfluenzaLot #[id number]-L dltd, IMDose prefilled syringeVIS and ABN signedgiven by:asNISHANTN MAMMOGRAM BREAST BILATERAL On: 27-Feb-2017 Intent SCREENING DIGITAL (03736)By: Lesly Chairez CNP, CNP, Mary E MRI OF LUMBAR SPINE WITH AND On: 28-Nov-2016 Intent WITHOUT CONTRAST (32513)By: Lesly Chairez CNP, CNP, Mary E Radiology - Lumbar SpineBy: Mihaela On: 19-Sep-2016 Intent Lesly RODRIGUEZ CNP, Mary E Radiology - Humerus - RightBy: On: 08-Apr-2016 Intent Lesly Chairez CNP, CNP, Mary E Solu -Medrol Injection, 125 mg On: 08-Apr-2016 Intent (J2930)By: Lesly Chairez CNP, CNP, Mary E Solu- Medrol Injection, 125mg On: 24-Mar-2016 Intent (J2930)By: Wendy June DO Comments: Lot:[id number]:10/2018Dose:125mgRoute:imSite:r hipGiven By:Gaurang signed Flu Vaccine (Quadrivalent) 09691Nw: On: 29-Feb-2016 Intent Visit, Nurse Comments: Lot #[id number]/30/17ite-L dltd, IMDose prefilled syringegiven by:ELVIN Woo and ANGIE signed BILATERAL MAMMOGRAMS (97095)By: On: 15-Feb-2016 Intent Mihaela MICHAEL Lesly Chairez CNP Lesly Chatman Kenalog Injection, 10 mgm On: 18-Jan-2016 Intent (J3301)By: Mihaela RODRIGUEZ Lesly Chatman Nellyfawn MICHAEL Fátima DRAIN/INJECT SMALL JOINT OR BURSA On: 18-Jan-2016 Intent (47142)By: Ryantatum RODRIGUEZ Lesly Chairez MICHAEL Fátima Radiology - Lumbar SpineBy: Ciesa On: 07-Sep-2015 Intent Lesly RODRIGUEZ CNP, Mary E Toradol Injection, 30 mg On: 07-Sep-2015 Intent (J1885)By: Mihaela RODRIGUEZ Lesly Chatman Nellyfawn Comments: Lot:[id number]:08/03/16Dose:30mgRoute:imSite:r hipGiven By:JUNG signed MICHAEL Lesly Chatman MRI - Shoulder(s) - RightBy: Ciesa On: 03-Aug-2015 Intent Lesly RODRIGUEZ CNP Lesly Chatman Radiology - Shoulder - RightBy: On: 03-Aug-2015 Intent Mihaela RODRIGUEZ Lesly Davistatum RODRIGUEZ Fátima ADMINISTRATION OF INFLUENZA VIRUS On: 02-Mar-2015 Intent VACCINE (G0008)By: Nell Enrique MD Flu Vaccine (Quadrivalent) 22732Be: On: 02-Mar-2015 Intent Nell Enrique MD Comments: Lot #:[id number] date:Amount given:0.5mlRoute: IMSite given:L DltdGiven by: Jung and ABN signed Quad Flu Wax CurettesBy: Nell Enrique MD On: 27-Nov-2014 Intent Ear Irrigation (76918)By: Elana On: 27-Nov-2014 Intent Nell BAUTISTA MAMMOGRAM, SCREENING, BOTH BREAST On: 27-Nov-2014 Intent (15179)By: Nell Enrique MD Prevnar 13 (58184)By: Maryam HERNANDEZ, On: 28-Apr-2014 Intent Maria T Comments: [id number] arm, IMAS ADMINISTRATION OF INFLUENZA VIRUS On: 31-Mar-2014 Intent VACCINE (G0008)By: Nell Enrique MD Comments: [id number] syringeL Dltd, IMAS, LPNABN and VIS signed M FLU VAC, SPLIT, >3 YEARS, INTRAMUSC On: 31-Mar-2014 Intent (20026)By: Maria T Francisco LPN BILATERAL MAMMOGRAMS (00147)By: On: 06-Feb-2014 Intent Nell Enrique MD MAMMOGRAM, SCREENING, BOTH BREAST On: 23-Dec-2013 Intent (35452)By: Nell Enrique MD Eprescribed prescriptions On: 29-Apr-2013 Intent (G8553)By: Nell Enrique MD Eprescribed prescriptions On: 08-Apr-2013 Intent (G8553)By: Nell Enrique MD DXA, BONE DENSITY, AXIAL SKELETON On: 08-Apr-2013 Intent (85170)By: Nell Enrique MD Comments: postmenapausal FLU VAC, SPLIT, >3 YEARS, INTRAMUSC On: 08-Mar-2013 Intent (64186)By: Wendy June DO Comments: Lot:[id number]:0.5mlRoute:IMSite: L DltdGiven By: ELVIN Booker signed ADMINISTRATION OF INFLUENZA VIRUS On: 08-Mar-2013 Intent VACCINE (G0008)By: Wendy June DO Rocephon Injection, 2 Gm On: 28-Feb-2013 Intent (J0696)By: Wendy June DO Comments: im lt and rt hip 2.5 ml each [id number] 09/04/15 Eprescribed prescriptions On: 07-Feb-2013 Intent (G8553)By: Randa Aldana LPN Eprescribed prescriptions On: 24-Dec-2012 Intent (G8553)By: Lesly Chairez CNP, CNP, Mary E MAMMOGRAM, SCREENING, BOTH BREASTS On: 08-Oct-2012 Intent (09410)By: Nell Enrique MD Eprescribed prescriptions On: 08-Oct-2012 Intent (G8553)By: Dima Alexander LPN Eprescribed prescriptions On: 14-Jun-2012 Intent (G8553)By: Nell Enrique MD Eprescribed prescriptions On: 21-May-2012 Intent (G8553)By: Nell Enrique MD Kenalog Injection, 10 mgm On: 12-Mar-2012 Intent (J3301)By: Nell Enrique MD Kenalog Injection, 10 mgm On: 12-Mar-2012 Intent (J3301)By: Nell Enrique MD Kenalog Injection, 10 mgm On: 12-Mar-2012 Intent (J3301)By: Nell Enrique MD Kenalog Injection, 10 mgm On: 12-Mar-2012 Intent (J3301)By: Nell Enrique MD FLU VAC, SPLIT, >3 YEARS, INTRAMUSC On: 20-Feb-2012 Intent (99405)By: Myrna Townsend Comments: Lot:[id number]:6.30.13Dose:prefilledRoute:IMSite:L DltdGiven By:JUNG signed ADMINISTRATION OF INFLUENZA VIRUS On: 20-Feb-2012 Intent VACCINE (G0008)By: Myrna Townsend ADMINISTRATION OF INFLUENZA VIRUS On: 20-Feb-2012 Intent VACCINE (G0008)By: MATT Maloney FLU VAC, SPLIT, >3 YEARS, INTRAMUSC On: 20-Feb-2012 Intent (29189)By: MATT Maloney MAMMOGRAM, SCREENING, BOTH BREASTS On: 24-Jan-2012 Intent (22545)By: Nell Enrique MD Ultrasound - AortaBy: Elana BAUTISTA, On: 14-Nov-2011 Intent Nell Lackey Kenalog Injection, 10 mgm On: 24-Oct-2011 Intent (J3301)By: Nell Enrique MD Kenalog Injection, 10 mgm On: 24-Oct-2011 Intent (J3301)By: Nell Enrique MD Kenalog Injection, 10 mgm On: 24-Oct-2011 Intent (J3301)By: Nell Enrique MD Kenalog Injection, 10 mgm On: 24-Oct-2011 Intent (J3301)By: Nell Enrique MD EKG (36586)By: Nell Enrique MD On: 08-Aug-2011 Intent Eprescribed prescriptions On: 08-Aug-2011 Intent (G8553)By: Nell Enrique MD INFUSION, NORMAL SALINE SOLUTION , On: 05-Jul-2011 Intent 250 CC (J7050)By: Mihaela RODRIGUEZ, FátimaCompa Chairez EQUIPMENT MAINTENANCE ENGINEER, Fátima FLU VAC, SPLIT, >3 YEARS, INTRAMUSC On: 02-May-2011 Intent (37802)By: Nell Enrique MD Comments: had done ADMINISTRATION OF INFLUENZA VIRUS On: 28-Feb-2011 Intent VACCINE (G0008)By: Nell Enrique MD FLU VAC, SPLIT, >3 YEARS, INTRAMUSC On: 28-Feb-2011 Intent (03975)By: Nell Enrique MD Eprescribed prescriptions On: 28-Feb-2011 Intent (G8553)By: Nell Enrique MD Venous Doppler - RightBy: Elana On: 31-Jan-2011 Intent Nell BAUTISTA Comments: lower leg. wet read Kenalog Injection, 10 mgm On: 18-Jan-2011 Intent (J3301)By: Nell Enrique MD Comments: x4 Radiology - Lumbar SpineBy: Elana On: 06-Jan-2011 Intent Nell BAUTISTA Radiology - Knee - RightBy: Elana On: 06-Jan-2011 Intent Nell BAUTISTA Radiology - Knee - LeftBy: Elana On: 06-Jan-2011 Intent Nell BAUTISTA Radiology - Small Bowel Series On: 06-Jan-2011 Intent (08624)By: Nell Enrique MD EKG (40218)By: Nell Enrique MD On: 28-Jun-2010 Intent MAMMOGRAM, SCREENING, BOTH BREASTS On: 28-Jun-2010 Intent (92605)By: Nell Enrique MD FLU VAC, SPLIT, >3 YEARS, INTRAMUSC On: 29-Mar-2010 Intent (17013)By: Ana Candelario Comments: Lot:[id number]:09/2010Dose:0.5mlRoute:IMSite:Left Deltoid Given by: WALESKA [place]MINISTRATION OF INFLUENZA VIRUS On: 29-Mar-2010 Intent VACCINE (G0008)By: Ana Candelario EKG ([id number])By: Nell Enrique MD On: 24-Apr-2009 Intent IMMUNIZ ADMNIN, 1 VAC, SNGL/COMBO On: 11-Mar-2009 Intent ([id number])By: Ldaonna Briggs RN FLU VAC, SPLIT, >3 YEARS, INTRAMUSC On: 11-Mar-2009 Intent ([id number])By: Ladonna Briggs RN Breast Diagnostic - RightBy: On: 23-Dec-2008 Intent Nell Enrique MD Breast Screening - LeftBy: Elana On: 23-Dec-2008 Intent Nell BAUTISTA Breast Diagnostic - RightBy: On: 15-Jul-2008 Intent Nell Enrique MD Comments: 11-11 FLU VAC, SPLIT, >3 YEARS, INTRAMUSC On: 25-Mar-2008 Intent ([id number])By: Alexa Metz ADMINISTRATION OF INFLUENZA VIRUS On: 25-Mar-2008 Intent VACCINE ([id number])By: Alexa Metz EKG ([id number])By: Nell Enrique MD On: 04-Mar-2008 Intent MAMMOGRAM, SCREENING, BOTH BREASTS On: 04-Mar-2008 Intent ([id number])By: Nell Enrique MD Venous Doppler - BothBy: Elana On: 14-Aug-2007 Intent Nell BAUTISTA Comments: lower legs EKG ([id number])By: Nell Enrique MD On: 15-Feb-2007 Intent Bone Density StudyBy: Messenger, On: 28-Dec-2006 Intent Randa MAMMOGRAM, SCREENING, BOTH BREASTS On: 28-Dec-2006 Intent ([id number])By: Nell Enrique MD SPECIMEN HANDLING/TRANSPORT On: 29-Sep-2006 Intent ([id number])By: Nell Enrique MD FLU VAC, SPLIT, >3 YEARS, INTRAMUSC On: 04-Apr-2006 Intent ([id number])By: Alexa Joseph ADMINISTRATION OF INFLUENZA VIRUS On: 04-Apr-2006 Intent VACCINE ([id number])By: Alexa Joseph FLU VAC, SPLIT, >3 YEARS, INTRAMUSC On: 28-Mar-2006 Intent ([id number])By: Nell Enrique MD Planned Medications INFUSION, NORMAL SALINE SOLUTION , 250 CC Ordered: 05-Jul-2011 Pending Ciesa EQUIPMENT MAINTENANCE ENGINEER, Fátima Ciesa EQUIPMENT MAINTENANCE ENGINEER, Fátima INJECTION, CEFTRIAXONE SODIUM, PER 250 MG Ordered: 28-Feb-2013 Pending Shaylee DO, Wendy INJECTION, KETOROLAC TROMETHAMINE, PER 15 MG Ordered: 07-Sep-2015 Pending Ciesa EQUIPMENT MAINTENANCE ENGINEER, Fátima Ciesa EQUIPMENT MAINTENANCE ENGINEER, Fátima INJECTION, METHYLPREDNISOLONE SODIUM SUCCINATE, UP TO 125 MG Ordered: 08-Apr-2016 Pending Ciesa EQUIPMENT MAINTENANCE ENGINEER, Fátima Ciesa EQUIPMENT MAINTENANCE ENGINEER, Fátima INJECTION, METHYLPREDNISOLONE SODIUM SUCCINATE, UP TO 125 MG Ordered: 24-Mar-2016 Pending Shaylee DO, Wendy INJECTION, TRIAMCINOLONE ACETONIDE, NOT OTHERWISE SPECIFIED, 10 MG Ordered: 18-Jan-2011 Pending Nell Enrique MD INJECTION, TRIAMCINOLONE ACETONIDE, NOT OTHERWISE SPECIFIED, 10 MG Ordered: 18-Jan-2016 Pending Ciesa EQUIPMENT MAINTENANCE ENGINEER, Fátima Ciesa EQUIPMENT MAINTENANCE ENGINEER, Fátima INJECTION, TRIAMCINOLONE ACETONIDE, NOT OTHERWISE SPECIFIED, 10 MG Ordered: 12-Mar-2012 Pending Nell Enrique MD INJECTION, TRIAMCINOLONE ACETONIDE, NOT OTHERWISE SPECIFIED, 10 MG Ordered: 12-Mar-2012 Pending Nell Enrique MD INJECTION, TRIAMCINOLONE ACETONIDE, NOT OTHERWISE SPECIFIED, 10 MG Ordered: 12-Mar-2012 Pending Nell Enrique MD INJECTION, TRIAMCINOLONE ACETONIDE, NOT OTHERWISE SPECIFIED, 10 MG Ordered: 24-Oct-2011 Pending Nell Enrique MD INJECTION, TRIAMCINOLONE ACETONIDE, NOT OTHERWISE SPECIFIED, 10 MG Ordered: 24-Oct-2011 Pending Nell Enrique MD INJECTION, TRIAMCINOLONE ACETONIDE, NOT OTHERWISE SPECIFIED, 10 MG Ordered: 24-Oct-2011 Pending Nell Enrique MD INJECTION, TRIAMCINOLONE ACETONIDE, NOT OTHERWISE SPECIFIED, 10 MG Ordered: 24-Oct-2011 Pending Nell Enrique MD INJECTION, TRIAMCINOLONE ACETONIDE, NOT OTHERWISE SPECIFIED, 10 MG Ordered: 12-Mar-2012 Pending Nell Enrique MD INJECTION, TRIAMCINOLONE ACETONIDE, NOT OTHERWISE [...] CNP, Lesly Chatman Instructions Name Dates Details Non-smoker : How to access health information [...] thrombosis) : DISCONTINUED - PT (PROTHROMBIN TIME) (33722) Indication: History of DVT (deep vein thrombosis) half-way current use of 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 therapy : DISCONTINUED - PT (PROTHROMBIN TIME) ([id number]) Indication: half-way current use of 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 therapy Diabetes mellitus [...] type II, controlled Encounters Office Visit On: 25-Apr-2018 13:21 Encounter Reason: [...] aching. Onset was 3 day(s) ago., End: 14-Nov-2018 14:32 [ADDITIONAL REASON] abrasion - Abrasion left [...] or put area rugs through house. The jeffrey t has completed the following preventative measures: mammography (1 year ago) and colonoscopy (dr oates- 9 years ago). The patient does not have durable power of assistant prosecuting attorney or living will. The patient huang s noticed lack of energy and thinking most people are better off than them. Other providers contributing to the patient's care are searchlight operator (dr. martinez) and life insurance salesperson (dr. roper). Note for Annual Medicare Exam: [...] done low B12 and D here for [facility] Diagnosis: BMI 29.0-29.9,adult, Vitamin D [...] from Current non-smoker), BMI 30.0-30.9,adult, Weight loss, half-way current use of 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 therapy, History of [...] Obesity, Shoulder pain, right, BMI 33.0-33.9,adult, Hematuria, half-way current use of 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 therapy, Encounter for [...] does n ot have durable power of assistant prosecuting attorney or living will. The patient has noticed lack of energy. Other providers contributing to the patient's care are gastrologist (Dr. Oates ) and other: (Opthalm: Dr. 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 Martinez) and other: (Glaucoma screens by [...] Woman Exam , Medicare (V76.2) (Renamed from [facility] Woman Exam , Medicare (V76.2, V72.31)), arthritis,unspecified [...] Woman Exam , Medicare (V76.2) (Renamed from [employer] Woman Exam , Medicare (V76.2, V72.31)), Lymphedema [...] patient does not have durable power of assistant prosecuting attorney o r living will. The patient has noticed lack of energy. Other providers contributing to the patient's care are life insurance salesperson.Encounter Diagnosis: Annual Medicare Physical (V70.0), Itching (698.9) [...] Woman Exam , Medicare (V76.2) (Renamed from [employer] Woman Exam , Medicare (V76.2, V72.31)), GLAUCOMA [...] Nutrition: balanced diet and supplemental vitamins. The ms dical issues the patient is following up [...] Woman Exam , Medicare (V76.2) (Renamed from [facility] Exam , Medicare (V76.2, V72.31)), GERD (530.81), [...] Woman Exam , Medicare (V76.2) (Renamed from [facility] Exam , Medicare (V76.2, V72.31)) End: 24-Jan-2012 [...] Swelling of limb (729.81), Sleep disorder (780.50), [facility] Comprehensive Internal Medicine Office Visit On: 09-Oct-2007 [...] itching. Note for Rash: [facility] and noticed back itchingEncounter Diagnosis: Rash (782.1) [...] Comprehensive Internal Medicine End: 26-Feb-2006 20:01 Payers MedicareAARP/Massiel Soares; tatum guarantor
--- OUTSIDE RECORDS SUMMARY | 2018-06-12 22:47 | XMS RPT_ITS | Continuity of Care Document ---
:1940 Author Organization [facility] Address [facility] 2 [place] [address] Phone Care Team Providers Name Role Phone Lesly Chairez CNP Unavailable [facility] Unavailable Edin BAUTISTA, Balwinder Tam Unavailable Matt Phelps Unavailable Elana BAUTISTA, Akosua Lackey Unavailable Dr. Prashant Hoffman Unavailable Liyah Diane Unavailable Dr. Shayla Goodman Unavailable Dr. Jonathan Oates Unavailable Eufemia Lemos Unavailable Unavailable Slarb DIRECTOR PROCESS IMPROVEMENT, Maria T Unavailable Unavailable Long DIRECTOR PROCESS IMPROVEMENT, Dima L Unavailable Unavailable Unavailable Unavailable Problems [...] unspecified laterality, sequela (S80.819S, 906.2) Status: Active Chronic stasis dermatitis (I87.2, 454.1) [...] there okay. no pap after 70. 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 current use of 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 therapy (Z79.01, V58.61) [...] unintentional Status: Active Medications Name Dates Details Amoxicillin 500 MG Oral Capsule 1 (one) Capsule tid for 7 days Quantity: 15 {Capsule} Refills: 0 Ordered:18-Apr-2018 Lesly Chairez CNP, CNP, Mary E Start : 18-Apr-2018 Active Avapro 75 MG Oral Tablet 1 (one) Tablet QD for 0 days Quantity: 30 {Tablet} Refills: 6 Ordered:01-Sep-2017 Lesly Chairez CNP, CNP, Mary E Start : 01-Sep-2017 Active Cyanocobalamin 2500 MCG [...] 02-Jun-2014 Active Comments:True Test Strips DX: 250.00NPI: [id number] Horse [place] 300 MG Oral Capsule 1 qd (300 MG) Active Comments:per derm HydrOXYzine HCl 25 MG Oral Tablet 1 (one) Tablet bid prn for 10 days Quantity: 30 {Tablet} Refills: 1 Ordered:16-Apr-2018 Mihaela RODRIGUEZ Lesly Leslie RODRIGUEZ, Fátima Start : 16-Apr-2018 Active MECLIZINE HCL, 25MG (Oral Tablet) 1 Tablet tid/prn for 0 days Quantity: 30 {Tablet} Refills: 0 Ordered:29-Sep-2015 Mihaela RODRIGUEZ, Lesly Leslie RODRIGUEZ, Fátima Start : 29-Sep-2015 Active Pentoxifylline ER 400 MG Oral Tablet Extended Release 1 (one) Tablet ER tid for 0 days Quantity: 90 {Tablet} Refills: 6 Ordered:27-Mar-2017 Mihaela RODRIGUEZ, Lesly Leslie RODRIGUEZ, Lesly Chatman Start : 27-Mar-2017 Active PEPCID, 20MG (Oral Tablet) 1 Tablet bid for 0 days Quantity: 60 {Tablet} Refills: 0 Ordered:19-Oct-2015 Akosua Enrique MD Start : 19-Oct-2015 Active Potassium Chloride ER 10 MEQ Oral Capsule Extended Release 1 Capsule ER qd prn when on water pill for 30 days Quantity: 30 {Capsule} Refills: 2 Ordered:29-Jan-2018 Mihaela RODRIGUEZ, Lesly Leslie RODRIGUEZ, Fátima Start : 29-Jan-2018 Active Pravachol 80 MG Oral Tablet 1 (one) Tablet qod for 0 days Quantity: 15 {Tablet} Refills: 6 Ordered:12-Feb-2018 Mihaela RODRIGUEZ, Lesly Nelson CNP, Fátima Start : 12-Feb-2018 Active Sucralfate 1 GM Oral Tablet 1 (one) Tablet qid prn for 0 days Quantity: 120 {Tablet} Refills: 3 Ordered:06-Nov-2017 Mihaela RODRIGUEZ, Lesly Nelson CNP, Lesly Chatman Start : 06-Nov-2017 Active Vitamin D3 Super Strength 2000 UNIT Oral Capsule 2 (two) Capsule Capsule daily for 0 days Quantity: 60 {Capsule} Refills: 0 Ordered:06-Nov-2017 Long Dima HERNANDEZ Start : 02-Aug-2017 Active ACTOS, 45MG (Oral Tablet) 1/2 Tablet QD for 0 days Quantity: 30 {Tablet} Refills: 6 Ordered:15-Feb-2007 MATT Maloney Start : 15-Feb-2007 End : 15-Jul-2008 Inactive Amoxicillin-Pot Clavulanate 875-125 MG Oral Tablet 1 (one) Tablet Tablet bid for 0 days Quantity: 20 {Tablet} Refills: 0 Ordered:13-Mar-2017 Slarb Maria T HERNANDEZ Start : 12-Jan-2017 End : 13-Mar-2017 Inactive [...] {Tablet} Refills: 6 Ordered:06-Nov-2017 Lesly Chairez CNP, CNP Fátima Start : 31-Jul-2017 End : 06-Nov-2017 [...] : 12-Nov-2010 End : 20-Feb-2012 Inactive Nystatin 052277 UNIT/GM External Powder uad Powder bid to [...] Quantity: 21 {Tablet} Refills: 0 Ordered:13-Mar-2017 Mihaela MICHAEL, Lesly Leslie RODRIGUEZ, Lesly Chatman Start : 13-Mar-2017 End : [...] : 19-Mar-2012 End : 21-May-2012 Inactive ZOSTAVAX, 56366IQP/0.65ML (Subcutaneous Solution Reconstituted) 1 For Solution once SC for 0 days Quantity: 1 {For_Solution} Refills: 0 Ordered:29-Apr-2013 MATT Maloney Start : 08-Apr-2013 End : 29-Apr-2013 Inactive Cefadroxil 500 MG Oral Capsule 1 (one) Capsule bid for 7 days Quantity: 14 {Capsule} Refills: 0 Ordered:12-Jan-2017 Shaylee LONG Wendy Start : 12-Jan-2017 End : 12-Jan-2017 Discontinued ERGOCALCIFEROL, 44425HWHW (Oral Capsule) 1 Capsule every 2 months [...] ventilator, and rec. multpile units [facility]BC's @ [facility] 09-18 Status: Inactive as of 13-Mar-2017 [...] Density Study Result: Comments: See Note; NOTES: [facility] Imaging Services [address] [place] [address] Dexa Bone Density Study MR#: [id number] Acct: [id number] Name: BRISSA SOARES Rep #: [id number] : 1940 F 77 From: Sergio Perea MD PCP: Lesly Chairez NP Status: REG CLI Study: Dexa Bone Density Study Date of Exam: 03/22/18 Exam# [id number] Ordering Dr: Lesly Chairez NP-Parul STUDY: D UAL ENERGY X-RAY ABSORPTIOMETRY / [...] Sergio Perea MD at 15:16 EDT Tel [phone], Service support , CC: Lesly Chairez NP Curing Finisher: Signed 22-Mar-2018 SCREENING MAMM (CAD), BILAT Result: Comments: See Note; NOTES: [facility] Imaging Services [address] [place] [address] SCREENING MAMM (CAD), BILAT MR#: [id number] Acct: [id number] Name: BRISSA SOARES Rep #: [id number] : 1940 F 77 From: Sergio Perea MD PCP: Lesly Chairez NP Status: REG CLI Study: SCREENING MAMM (CAD), BILAT Date of Exam: 03/22/18 Exam# [id number] Ordering Dr: Lesly Chairez BEHAVIORAL HEALTH TECHNICIAN-C MAMMOGRAPHY - BILATERAL SCREENING REASON FOR EXAM: [...] delay biopsy of a clinically suspicious abnormality. [id number] Electronically Signed: Sergio Perea MD at 10:28 EDT Tel [phone], Service support , CC: Lesly Chairez NP Curing Finisher: Signed 12-Feb-2018 HIP, UNI W/ Pelvis 2-3 Views Result: Comments: See Note; NOTES: [facility] Imaging Services [address] [place] [address] HIP, UNI W/ Pelvis 2-3 Views MR#: [id number] Acct: [id number] Name: BRISSA SOARES Rep # : [id number] : 1940 F 77 From: Justo Kennedy MD PCP: Lesly Chairez NP Status: REG CLI Study: HIP, UNI W/ Pelvis 2-3 Views Date of Exam: 02/12/18 Exam# [id number] Ordering Dr: Ciesa, Lesly STUD Y: X-RAY - PELVIS AND RIGHT [...] Service support , CC: Lesly Chairez NP Curing Finisher: Signed 16-Nov-2017 Abdomen Complete Result: Comments: See Note; NOTES: [facility] Imaging Services [address] [place] [address] Abdomen Complete MR#: [id number] Acct: [id number] Name: BRISSA SOARES Rep #: [id number] : 1940 F 77 From: Yulissa Reilly MD PCP: Lesly Chairez NP Status: REG CLI Study: Abdomen Complete Date of Exam: 11/16/17 Exam# [id number] Ordering Dr: Lesly Chairez STUDY: ABDOMINAL ULTRASOUND [...] Service support , CC: Lesly Chairez NP Curing Finisher: Signed 22-Sep-2017 Cardiology Visit Report Result: Comments: See Note; NOTES: [facility] [address] [place] [address]. [address] [place] [address] OFFICE VISIT Date of Service: 09/21/17 MR#: [id number] Acct: [id number] Name: BRISSA SOARES Rep #: [id number] : 1940 Provider: Serenity Villarreal Age/Sex: 77/F Location: [facility] Status: Signed HPI HPI Details: BRISSA [...] 152/68 Intake Visit Reasons: 6 M FU Topographical Drafter Required: No Accompanied by: none Is patient in pain?: No Allerg ies atorvastatin calcium [From Lipitor] Allergy (Verified 09/21/17 11:28) Unknown ezetimibe [From Zetia] Allergy (Verified 09/21/17 11:28) Unknown lisinopril Allergy (Verified 09/21/17 11:28) Unknown n eomycin [Neomycin] Allergy (Verified 09/21/17 11:28) Unknown neomycin sulfate [From Neosporin (yyw-plz-ykpsu)] Allergy (Verified 09/21/17 11:28) Itching polymyxin B [...] History Palpitations (Chronic) 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 transplanted heart: [place] heart Essential hypertension I10 Hypertension type: essential hypertension Pure hypercholesterolemia E78.00; E78.0 Hy perlipidemia type: pure hypercholesterolemia Coding Level of Care Code Off vis,est,level 3 Diagnoses Atherosclerosis of [place] coronary artery of [place] heart without angina pectoris I25.10 [place] vs . transplanted heart: [place] heart Essential hypertension I10 Hypertension type: essential hypertension Pure hypercholesterolemia E78.00; E78.0 Hyperlipidemia type: pure hypercholesterolemia 09/22/17 0925 <Electronically signed by Serenity MAGAÑA> Date Serenity MAGAÑA Cosigner Signature: Date (if applicable) CC: Lesly Chairez NP 20-Mar-2017 Wound Ctr History AND Physical Result: Comments: See Note; NOTES: [facility] Wound [facility]aling Center [address] [place] [address] Wound Ctr History AND Physical 03/20/17 1426 MR#: [id number] Acct: [id number] Name: BRISSA WHITE Rep #: [id number] : 1940 76 From: Bao Brothers MD PCP: Lesly Chairez Status: REG RCR Y Location: WC (1) 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 She has been treated at the [facility] wound healing center in recent [...] 11/15/15 15:31) Unknown neomycin sulfate [From Neosporin (mld-dxo-eekkq)] Allergy (Verified 11/15/15 15:31) Itching polymyxin B [...] Date Recorded By Document 03/20/17 14:23 DV [id number] 03/05 11/19 14:25 DV Pain Scale: 0-10 [...] Date Recorded By Document 03/20/17 14:23 DV [id number] 03/20/17 14:25 DV Pain Scale: 0-10 Numeric [...] (CAD), BILAT Result: Comments: See Note; NOTES: [facility] Imaging Services [address] [place] [address] SCREENING MAMM (CAD), BILAT MR#: [id number] Acct: [id number] Name: BRISSA SOARES Rep #: [id number] : 1940 F 76 From: Jessica Gonzalez MD PCP: Lesly Chairez Status: REG CLI Study: SCREENING MAMM (CAD), BILAT Date of Exam: 03/09/17 Exam# [id number] Ordering Dr: Lesly Chairez MAMMOGRAPHY - BILATERAL [...] delay biopsy of a clinically suspicious abnormality. 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 Curr ent Visit: No Code(s): I70.249 - ATHSCL LITTLE SHELL TRIBE ARTERIES OF LEFT LEG W ULCERATION OF UNSP SITE (2) Cellulitis of left leg Status: Resolved Current Visit: No Code(s): L03.116 - CELLULITIS OF LEFT LOWER L IMB (3) Failure to thrive Status: Acute Current Visit: No Code(s): UPK4647 - (4) Generalized weakness Status: Acute Current [...] She has been garrett juan at the [facility] wound healing center in recent [...] 11/15/15 15:31) Unknown neomycin sulfate [From Neosporin (wsb-ybo-nwdgr)] Allergy (Verified 11/15/15 15:31) Itching polymyxin B [...] Date Recorded By Document 03/06/17 13:13 IZZY [id number] 03/06/17 13:22 IZZY Wound Center Nurse 1 [...] Date Recorded By Document 03/06/17 14:12 DV [id number] 03/06/17 14:13 DV Pain Scale: 0-10 Numeric [...] Recorded Date Recorded By Document 14:12 DV [id number] 03/06/17 14:13 DV Pain Scale: 0-10 Numeric [...] patient in detail. It appears as though e patient's lifestyle will require modification, lest [...] AND Physical Result: Comments: See Note; NOTES: [facility] Wound Healing Center [address] [place] [address] Wound Ctr History AND Physical 02/27/17 1412 MR#: [id number] Acct: [id number] Name: BRISSA WHITE Rep #: [id number] : 1940 76 From: Bao Brothers MD PCP: Lesly Chairez Status: REG RCR Y Location: (1) Chronic venous hypertension (idiopathic) with inflammation [...] has been treated at the [facility] wound healing center in recent weeks for an ulceration in the left medial supramalleolar area. With a combination of conservative treatment measures, including use of Milena and Tubigrip's, the [facility] er healed. 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 ligation [...] 11/15/15 15:31) Unknown neomycin sulfate [From Neosporin (jgu-dre-plrbe)] Allergy (Verified 11/15/15 15:31) Itching polymyxin B [...] Recorded Date Recorded By Document 02/27/17 13:25 [facility] [id number] 02/27/17 13:34 [facility] Wound Center Nurse 1 [Edema Assessment] -Lower Limb Edema Present Yes -Right Calf (cm) 39.7 -Right Ankle (cm) 26 -Left Calf (cm) 41 -Left Ankle (cm) 26.5 WC - Nurse 2 - General Ulcer CM Notes Start: 02/03/17 13:02 Freq: Status: Active Activity Type Activity Date Activit y User E-Sign Co-Sign Detail Recorded Client Recorded Date Recorded By Document 02/27/17 13:50 DV [id number] 02/27/17 13:50 DV Pain Scale: 0-10 Numeric [...] Recor ded By Document 02/27/17 13:50 DV [id number] 02/27/17 13:50 DV Pain Scale: 0-10 Numeric [...] AND Physical Result: Comments: See Note; NOTES: [facility] Wound Healing Center [address] [place] [address] Wound Ctr History AND Physical 02/20/17 1309 MR#: [id number] Acct: [id number] Name: BRISSA WHITE Rep #: [id number] : 1940 76 From: Bao Brothers MD [...] has been treated at the [facility] wound healing center in recent weeks for [...] (Chronic) Chronic venous stasis dermatitis (Chronic) Diabetes (Human Factors Ergonomist scarlett) Hyperpigmentation of skin (Chronic) Leg swelling [...] 11/15/15 15:31) Unknown neomycin sulfate [From Neosporin (xzs-cwf-sdtab)] Allergy (Verified 11/15/15 15:31) Itching polymyxin B [...] Recorded Date Recorded By Document 02/20/17 12:18 [facility] [id number] 02/20/17 12:21 [facility] - Nurse 2 - General Ulcer CM Notes Start: 02/03/17 13:02 Freq: Status: Active Activity Type Activity Date Activity User E-Sign Co-Sign Detail Recorded Client Recorded Date Recorded By Document 02/20/17 12:53 DV [id number] 02/20/17 13:04 DV Pain Scale: 0-10 Numeric [...] Date Recorded By Document 02/20/17 12:53 DV [id number] 02/20/17 13:04 DV Pain Scale: 0-10 Nu [...] has been advised to collaborate with her [facility] physician in terms of weight loss options. 02/20/17 1330 <Electronically signed by Bao Brothers MD> Date Bao Brothers MD CC: Signed 17-Feb-2017 Lower Ext Arterial Study Result: Comments: See Note; NOTES: [facility] Cardiovascular Services [address] [place] [address] 02/17/17 1612 MR#: [id number] Acct: [id number] Name: BRISSA SOARES Rep #: [id number] : 1940 76 From: Bao Brothers MD Attending Dr: Andre Gutierrez MD Status: DIS RCR Ordering Dr: Date: 02/17/17 Location: [facility] Sex: F C Admitted: [...] occlusive disease bilaterally. Clinical correlation is advised. 02/17/17 1616 <Electronically signed by Bao Brothers MD> Date Bao Brothers MD CC: Lesly Nellypoptatum Date Dictated: 02/17/171611 Date Transcribed: 02/17/171611 Curing Finisher: PASCALE Signed 14-Feb-2017 Venous Duplex Lower Extremity Result: Comments: See Note; NOTES: [facility] Cardiovascular Services [address] [place] [address] Venous Duplex US - Jasson Extrem 02/14/17 1252 MR#: [id number] Acct: [id number] Name: BRISSA SOARES Rep #: [id number] : 1940 76 From: Bao Brothers MD [...] was called and/or faxed posterior calf. to [facility]. Interpret ation Summary Deep veins of the [...] Dictated: 02/14/17 1252 Date Transcribed: 02/14/17 1529 Curing Finisher: Signed 07-Feb-2017 Wound Ctr History AND Physical Result: Comments: See Note; NOTES: [facility] Wound Healing Center [address] [facility] [place] [place] [address] Wound Ctr History AND Physical 02/07/17 1617 MR#: [id number] Acct: [id number] Name: BRISSA WHITE Rep #: [id number] : 1940 76 From: Paul Srinivasan DPM [...] 11/15/15 15:31) Unknown neomycin sulfate [From Neosporin (dhp-xap-wrmhj)] Allergy (Verified 11/15/15 15:31) Itching polymyxin B [...] 15:30 02/07/17 15:30 General: Alert, Oriented x3, Wet Pour Mixer perative, No apparent distress HEENT: Atraumatic, Normocephalic [...] Date Recorde d By Document 02/07/17 15:30 [id number] 02/07/17 15:32 Wound Center Nurse 1 WC - Nurse 2 - General Ulcer CM Notes Start: 02/03/17 13:02 Freq: Status: Active Activity Type Activity Date Activity User E-Sign Co-Sign Detail Recorded Client Recorded Date Recorded By Document 02/07/17 16:11 [id number] 02/07/17 16:12 Wound Center Nurse 2 [Procedure/Treatment] Musculoskeletal: No Tenderness to Palp ation of Joints or Extremities, No Muscle Wasting Neurological: Neuro grossly intact, Motor Exam 5/5 strength throughout, Sensory exam intact to light touch and pain, Coordination normal, Gait narrow ba sed and stable Psych/Mental Status: Alert and oriented to time, place, person, mood and affect - wnl Debridement Note Post-Debridement Measurements/Treatment - Nurse 2 - General Ulcer CM Notes Star t: 02/03/17 13:02 Freq: Status: Active Activity Type Activity Date Activity User E-Sign Co-Sign Detail Recorded Client Recorded Date Recorded By Document 02/07/17 16:11 IZZY [id number] 02/07/17 16:12 IZZY [facility] Nurse 2 [...] pressure ulcer, venous incompetence, arterial insufficiency Plan: BEHAVIORAL HEALTH TECHNICIAN exam. SQ/excision al debridement as above. Cont [...] pain, chest pain, SOB and go to [facility] ED with these. 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 She developed a wound on the left [...] 11/15/15 15:31) Unknown neomycin sulfate [From Neosporin (jjd-maj-quejy)] Allergy (Verified 15:31) Itching polymyxin B [Polymyxin [...] 96.0 F 54 18 140/53 01/26/17 09:48 08/24/17 09:48 01/26/17 09:48 01/26/17 09:48 General: Alert, [...] follow up one week and prn, 01/26/17 3695 <Electronically signed by Andre Gutierrez MD> Date Andre Brenda BAUTISTA CC: Signed 16-Jan-2017 Emergency Department Summary Result: Comments: See Note; NOTES: [facility] Medical Records Department [address] [place] [address] Emergency Department Summary 01/15/17 1100 MR#: [id number] Acct: [id number] Name: BRISSA SOARES Rep #: [id number] : 1940 76 From: Jackson Marshall MD [...] your Primary Care Provider. Call [facility] ([phone]) or report to [facility] Emergency Room. Call 911 if necessary. 01/16/17 0747 <Electronically signed by Jackson Marshall MD> Date Jackson Marshall MD Cosign er Signature (If Indicated): Date CC: Lesly Chairez 09-Dec-2016 Spine Lumbar (Routine) Result: Comments: See Note; NOTES: [facility] Imaging Services [address] [place] [address] Verdana 4d Spine Lumbar (Routine) MR#: [id number] Acct: [id number] Name: BARTBRISSA M Rep #: [id number] : 1940 F 76 From: Isidro Cole MD PCP: Lesly Chairez Status: REG CLI Study: Spine Lumbar (Routine) Date of Exam: 12/09/16 Exam# [id number] Ordering Dr: Lesly Chairez UDY: MRI LUMBAR [...] 7:17 EDT Tel , Service support [phone]- [phone], CC: Lesly Chairez Curing Finisher: Signed 23-Sep-2016 L/S Spine Min 4 Views Result: Comments: See Note; NOTES: [facility] Imaging Services [facility] [place] [address] Verdana 4d L/S Spine Min 4 Views MR#: [id number] Acct: [id number] Name: BRISSA SOARES Franky ep #: [id number] : 1940 F 76 From: Alisia Kinsey PCP: Lesly Chairez Status: REG CLI Study: L/S Spine Min 4 Views Date of Exam: 09/23/16 Exam# [id number] Ordering Dr: Lesly Chairez STUDY: X-RAY - [...] , Service support , CC: Lesly Chairez Curing Finisher: Signed 08-Apr-2016 Humerus min 2 Views Result: Comments: See Note; NOTES: [facility] Imaging Services [address] [place] [address] Verdana 4d Humerus min 2 Views MR#: [id number] Acct: [id number] Name: BRISSA SOARES Re p #: [id number] : 1940 F 75 From: Sergio Perea MD PCP: Lesly Chairez Status: REG CLI Study: Humerus min 2 Views Date of Exam: 04/08/16 Exam# [id number] Ordering Dr: Lesly Chairez STUDY: X-R AY [...] Sergio Perea MD at 15:05 EDT Tel [phone], Service support [phone], CC: Lesly Chairez Curing Finisher: Signed 29-Feb-2016 Bilat Scrn Digital AND CAD Result: Comments: See Note; NOTES: [facility] Imaging Services [address] [place] [address] Verdana 4d Bilat Scrn Digital AND CAD MR#: [id number] Acct: [id number] Name: FER SOARES Rep #: [id number] : 1940 F 75 From: Sergio Perea MD PCP: Lesly Chairez Status: REG CLI Study: Bilat Scrn Digital AND CAD Date of Exam: 02/29/16 Exam# [id number] Ordering Dr: Lesly Chairez MAMMOGRAPHY - BILATERAL [...] delay biopsy of a clinically suspicious abnormality. [id number] Electronically Signed: Sergio Perea MD at 11:19 EDT Tel [phone], Service support [phone], CC: Lesly Chairez Curing Finisher: Signed 25-Dec-2015 Gastric Emptying Study Result: Comments: See Note; NOTES: [facility] Imaging Services [address] [place] [address] Verdana 4d Gastric Emptying Study MR#: [id number] Acct: [id number] Name: BRISSA WHITE Rep #: [id number] : 1940 F 75 From: Jhon Carreno DO PCP: Akosua Enrique MD Status: REG CLI Study: Gastric Emptying Study Date of Exam: 12/25/15 Exam# [id number] Ordering Dr: Jonathan Blanco MD CLINICAL: 75-year-old [...] at 7:59 EDT Tel , Service support [phone], CC: Akosua Enrique MD; Jonathan Oates Curing Finisher: Signed 15-Nov-2015 Emergency Department Summary Result: Comments: See Note; NOTES: [facility] Medical Records Department [address] [place] [address] Emergency Department Summary MR#: [id number] Acct: [id number] Name: BRISSA SOARES Rep #: [id number] : 1940 75 From: Eladio Mai MD [...] Parul Saunders C: Akosua Oates MD T: NTS JOB: [id number] 11/15/152037 <Electronically signed by Eladio Mai MD> Date Eladio Mai MD Cosigner Signature (If Indicated): Date __ CC: Akosua Enrique MD; Jonathan Oates Date Dictated: 11/15/151620 Date Transcribed: 11/15/151620 Curing Finisher: Signed 15-Nov-2015 Discharge Instruction Result: Comments: See Note; NOTES: [facility] Medical Records Department [address] [place] [address] Discharge Instruction 11/15/151617 MR#: [id number] Acct: [id number] Name: BRISSA SOARES Rep #: [id number] : 1940 75 From: Eladio Mai MD [...] problems, contact your doctor. Call [facility] ([phone]) or report to the closest Emergency Room. Call 911 if necessary. 11/15/151620 <Electronically signed by Eladio Mai MD> Date Eladio granados Signature (If Indicated): Date CC: Akosua Enrique MD 26-Sep-2015 Brain/Head without Contrast Result: Comments: See Note; NOTES: [facility] Imaging Services [address] [place] [address] Verdana 4d Brain/Head without Contrast MR#: [id number] Acct: [id number] Name: BRISSA SOARES Rep #: [id number] : 1940 F 75 From: Garry Knowles DO PCP: Akosua Enrique MD Status: REG ER Study: Brain/Head without Contrast Date of Exam: 09/26/15 Exam# [id number] Glendy horn Dr: Jacques Hunt MD STUDY: [...] at 21:04 EDT Tel , Service support [phone], F ax [phone] CC: Akosua Enrique MD; Jacques Hunt MD Curing Finisher: Signed 03-Aug-2015 Shoulder min 2 Views Result: Comments: See Note; NOTES: [facility] Imaging Services [address] [place] [address] Nisreendana 4d Shoulder min 2 Views MR#: [id number] Acct: [id number] Name: BRISSA FERNANDO Rep #: [id number] : 1940 F 75 From: Sergio Perea MD PCP: Akosua Enrique MD Status: REG CLI Study: Shoulder min 2 Views Date of Exam: 08/03/15 Exam# [id number] Ordering Dr: Lesly Huang sa STUDY: X-RAY [...] Sergio Perea MD at 11:31 EST Tel [phone], Service support [phone], RAD/Shoulder min 2 Views IMPRESSION: 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 Electronically Signed: Sergio Perea MD at 11:31 EST Tel [phone], Service support [phone], CC: Lesly Chairez; Akosua Enrique MD Curing Finisher: Signed 16-Feb-2015 Bilat Scrn Digital AND CAD Result: Comments: See Note; NOTES: [facility] Imaging Services [address] [place] [address] Breast Imaging Report MR#: [id number] Acct: [id number] Name: BRISSA SOARES Rep # : [id number] : 1940 F 74 From: Sergio Perea MD PCP: Akosua Enrique MD Status: REG CLI Study: Bilat Scrn Digital AND CAD Date of Exam: 02/16/15 Exam# [id number] Ordering Dr: Akosua Enrique MD MAMMOGRAPHY - [...] Sergio Perea MD at 10:27 EDT Tel [phone], Service support [phone], CC: Akosua Enrique MD Curing Finisher: Signed 06-Feb-2014 Luci [facility] Digital & CAD Result: Comments: See Note; NOTES: [facility] Imaging Services [address] [place] [address] Breast Imaging Report MR#: [id number] Acct: [id number] Name: BRISSA SOARES Rep #: [id number] : 1940 F 73 From: Sergio Perea MD PCP: Akosua Enrique MD Status: REG CLI Exam# [id number] Ordering Dr: Akosua Enrique MD MAMMOGRAPHY - [...] MD at 11:35 EDT , Service support [phone], CC: Akosua Enrique MD Curing Finisher: Signed 25-Apr-2013 Dexa Bone Density Study (HP) Result: Comments: See Note; NOTES: [facility] Imaging Services [address] [place] [address] Bone Density Report MR#: [id number] Acct: [id number] Name: BRISSA SOARES Rep #: [id number] : 1940 F 72 From: Sergio Perea MD PCP: Akosua Enrique MD Status: REG CLI Study: Dexa Bone Density Study (HP) Date of Exam: 04/25/13 Exam# [id number] Ordering Dr: Akosua Enrique MD STUDY: DUAL [...] April 25, 2013 at 3:13:26 PM EST [phone] Electronically Signed GP/GP If you are the referring physician and would like to consult with the radiologist who provided this interpretati on, please contact Sergio Perea M.D. at [phone]. If this radiologist is unavailable, you will be directed to another radiologist to assist. If you are a patient with a question regarding this report, please contact your referring physician directly. Professional Interpretation Provided By: [employer], Phone , These documents contain legally protecte [...] of these documents. CC: Akosua Enrique MD Curing Finisher: Signed Immunization Name Dates Details Influenza (3 [...] smoker Vital Signs Date Test Result Details :39 Temperature 97.6 f Comments: Method: Temporal [...] kg/m2 Body Surface Area Calculated 1.71 m2 :23 Temperature 97.7 f Pulse 74 /min Comments: [...] Calculated 2.01 m2 Head Circumference 0.00 cm 46-Xvm-999075:13 Pulse 80 /min Comments: Pattern: Regular Respiration [...] 0.00 cm Results Date Description Value Details 67-Kjr-381053:39 MICROALBUMIN: CREATININE RATIO Comments: PATIENT WAS FASTINGPERFORMED BY: [facility]Rxnixm7594 [facility] [id number] ([id number]) AND (80146) Alb/Creat Ratio 6.6 {mg/g_creat} (Normal) Range: 0.0-30.0 Albumin, Urine 3.5 ug/mL (Normal) Creatinine, Urine 53.0 mg/dL (Normal) 15-Ryy-470426:39 TSH (07925) Comments: PATIENT WAS FASTINGPERFORMED BY: [facility])Cgjrst9503 [facility] [id number] TSH 1.080 {uIU/mL} (Normal) Range: 0.450-4.500 03-Diz-561441:39 CBC, Platelets & Auto Diff Comments: PATIENT WAS FASTINGPERFORMED BY: LabCoKelsey [place] 8327970 [facility] [id number] (91519) Immature Grans (Abs) 0.0 {x10E3/uL} (Normal) Range: [...] 3.77-5.28 WBC 6.2 {x10E3/uL} (Normal) Range: 3.4-10.8 67-Yji-473244:39 Metabolic Panel, Comprehensive Comments: PATIENT WAS FASTINGPERFORMED BY: [facility])Yjjqce6680 [facility] [id number] (50935) ALT (SGPT) 12 [iU]/L (Normal) Range: 0-32 [...] 8-27 Glucose 88 mg/dL (Normal) Range: 65-99 29-Tsq-359536:39 LIPID PANEL (83496) Comments: PATIENT WAS FASTINGPERFORMED BY: [employer]70 [facility] [id number] LDL/HDL Ratio 1.1 {ratio} (Normal) Range: 0.0-3.2 Comments: LDL/HDL Ratio Men Women 1/2 Avg.Risk 1.0 1.5 Av g.Risk 3.6 3.2 2X Avg.Risk 6.2 5.0 3X Avg.Risk 8.0 6.1 LDL Cholesterol Calc 82 mg/dL (Normal) Range: 0-99 VLDL Cholesterol Jessica 12 mg/dL (Normal) Range: 5-40 HDL Cholesterol 77 mg/dL (Normal) Triglycerides 62 mg/dL (Normal) Range: 0-149 Cholesterol, Total 171 mg/dL (Normal) Range: 100-199 8-Zix-194741:16 Basic Metabolic Panel (8) Comments: PATIENT NOT FASTINGPERFORMED BY: [employer]70 [facility] [id number] Calcium 9.8 mg/dL (Normal) Range: 8.7-10.3 Carbon [...] 12 years 19 - 27 19 - >12 years 20 - 20 - Chloride 102 mmol/L (Normal) Range: 96-106 Potassium 4.8 mmol/L (Normal) Range: 3.5-5.2 Sodium 141 mmol/L (Normal) Range: 134-144 BUN/Creatinine Ratio 18 (Normal) Range: 12-28 eGFR If Africn Am 86 mL/min/1.73 (Normal) eGFR If NonAfricn Am 74 mL/min/1.73 (Normal) Creatinine 0.77 mg/dL (Normal) Range: 0.57-1.00 BUN 14 mg/dL (Normal) Range: 8-27 Glucose 76 mg/dL (Normal) Range: 65-99 1-Dcg-875552:16 CBC With Differential/Platelet Comments: PATIENT NOT FASTINGPERFORMED BY: [facility])Ldzmid3882 [facility] [id number] Immature Grans (Abs) 0.0 {x10E3/uL} (Normal) Range: [...] 3.77-5.28 WBC 6.5 {x10E3/uL} (Normal) Range: 3.4-10.8 7-Nbw-270053:18 FECAL OCCULT- Tubes sent home (42643) FECAL OCCULT HGB ASSAY, QUAL, 1-3 SIMULTANEOU negative (Normal) :56 HgA1C , Office (40530) HgA1C , Office 5.2 % (Normal) Range: 4.6 - 7.1 1-Zrc-355649:56 Blood Glucose , Office (85084) Blood Glucose , Office 81 (Normal) 23-Mft-684998:28 VITAMIN B12 AND FOLATES Comments: PATIENT WAS FASTINGPERFORMED BY: Jiuxian.comVirtua [facility])Bsxips0475 [facility] [id number] (51037) Folate (Folic Acid), Serum >20.0 ng/mL (Normal) Comments: A serum folate concentration of less than 3.1 ng/mL isconsidered to represent clinical deficiency. Vitamin B12 171 pg/mL (Abnormal) Range: 232-1245 40-Cox-914312:28 CALCIFEDIOL (85985) Comments: PATIENT WAS FASTINGPERFORMED BY: Jiuxian.comRehabilitation Hospital of Southern New MexicoTxkgzs7572 [facility] [id number] Vitamin D, 25-Hydroxy 22.4 ng/mL (Abnormal) Range: 30.0-100.0 Comments: Vitamin D deficiency has been defined by the Golden ofMedicine and an Endocrine Society practice guideline as alevel of serum 25-OH vitamin D less than 20 ng/mL (1,2).The Endocrine Society went on to further define vitamin Dinsufficiency as a level between 21 and 29 ng/mL (2).1. IOM (Golden of Medicine). 2010. Dietary reference intakes for calcium and D. [place]: The National Academies Press.2. Tono MF, Jonatan DYER, Fabiola HUANG, et al. Evaluation, treatment, and prevention of vitamin D deficiency: an Endocrine Society clinical practice guideline. JCEM. 2010; 96(7):1911-30. 71-Lew-984042:28 MICROALBUMIN: CREATININE RATIO Comments: PATIENT WAS FASTINGPERFORMED BY: [facility]uxian.comVirt[facility])Jhszij3554 [facility] [id number] (43837) AND (63675) Alb/Creat Ratio <4.0 {mg/g_creat} (Normal) Range: 0.0-30.0 Albumin, Urine <3.0 ug/mL (Normal) Creatinine, Urine 74.9 mg/dL (Normal) :28 TSH (69879) Comments: PATIENT WAS FASTINGPERFORMED BY: [facility] GamesKres[facility] Institute6370 [facility] [id number] TSH 1.070 {uIU/mL} (Normal) Range: 0.450-4.500 30-Ais-975543:28 CBC, Platelets & Auto Diff Comments: PATIENT WAS FASTINGPERFORMED BY: [facility] GamesKres[facility] Institute6370 [facility] [id number] (51973) Immature Grans (Abs) 0.0 {x10E3/uL} (Normal) Range: [...] 3.77-5.28 WBC 5.6 {x10E3/uL} (Normal) Range: 3.4-10.8 08-Ctk-475647:28 Metabolic Panel, Comprehensive Comments: PATIENT WAS FASTINGPERFORMED BY: [facility])Fnnnen2804 [facility] [id number] (13872) ALT (SGPT) 16 [iU]/L (Normal) Range: 0-32 [...] Glucose, Serum 82 mg/dL (Normal) Range: 65-99 :28 Lipid Panel (89292) Comments: PATIENT WAS FASTINGPERFORMED BY: LILIANA [employer] mPort [facility] [id number] LDL/HDL Ratio 1.3 {ratio_units} (Normal) Range: 0.0-3.2 Comments: LDL/HDL Ratio Men Women 1/2 Avg.Risk 1.0 1.5 Av g.Risk 3.6 3.2 2X Avg.Risk 6.2 5.0 3X Avg.Risk 8.0 6.1 LDL Cholesterol Calc 101 mg/dL (Abnormal) Range: 0-99 VLDL Cholesterol Jessica 11 mg/dL (Normal) Range: 5-40 HDL Cholesterol 79 mg/dL (Normal) Triglycerides 53 mg/dL (Normal) Range: 0-149 Cholesterol, Total 191 mg/dL (Normal) Range: 100-199 85-Hyo-595948:55 Urinalysis, Office (34297) UA - LEUKOCYTE ESTERASE Small (Normal) UA [...] Negative (Normal) :42 Blood Glucose , Office (67174) Comments: 91 Blood Glucose , Office 91 (Normal) :42 HgA1C , Office (58676) HgA1C , Office 5.1 % (Normal) Range: 4.6 - 7.1 :31 HgA1C , Office (40580) HgA1C , Office 5.2 % (Normal) Range: 4.6 - 7.1 7-Abz-881562:31 Blood Glucose , Office (22602) Blood Glucose , Office 78 (Normal) :13 Anaerobic & Aerobic Comments: PATIENT NOT FASTINGPERFORMED BY: Jiuxian.comVirtua [facility] ([facility])Pztkbv2216 [facility] [id number] Information: LEFT LEG SRC:FL Culture (08059) Antimicrobial MIHEAD (Normal) Comments: S = Susceptible; [...] Final report (Normal) :51 HgA1C , Office (51891) HgA1C , Office 5.2 % (Normal) Range: 4.6 - 7.1 :51 Blood Glucose , Office (96196) Blood Glucose , Office 83 (Normal) 33-Qho-572973:21 LIPID PANEL (04402) Comments: PATIENT WAS FASTINGPERFORMED BY: [employer]24 [facility] HospitalTransMedicsGr[facility] [id number] LDL/HDL Ratio 1.5 {ratio_units} (Normal) Range: 0.0-3.2 Comments: LDL/HDL Ratio Men Women 1/2 Avg.Risk 1.0 1.5 Av g.Risk 3.6 3.2 2X Avg.Risk 6.2 5.0 3X Avg.Risk 8.0 6.1 LDL Cholesterol Calc 88 mg/dL (Normal) Range: 0-99 VLDL Cholesterol Jessica 21 mg/dL (Normal) Range: 5-40 HDL Cholesterol 59 mg/dL (Normal) Triglycerides 106 mg/dL (Normal) Range: 0-149 Cholesterol, Total 168 mg/dL (Normal) Range: 100-199 :21 CBC, Platelets & Auto Diff Comments: PATIENT WAS FASTINGPERFORMED BY: [employer]6370 [facility] [id number] (48187) Immature Grans (Abs) 0.0 {x10E3/uL} (Normal) Range: [...] 3.77-5.28 WBC 6.0 {x10E3/uL} (Normal) Range: 3.4-10.8 65-Vwi-394182:21 Metabolic Panel, Comprehensive Comments: PATIENT WAS FASTINGPERFORMED BY: [facility])Eimwbw5253 [facility] [id number]; OV 11/28 (22254) ALT (SGPT) 8 [iU]/L (Normal) Range: 0-32 [...] Glucose, Serum 73 mg/dL (Normal) Range: 65-99 59-Cki-777733:21 TSH (98783) Comments: PATIENT WAS FASTINGPERFORMED BY: [employer] Sxmqiq1825 [facility] [id number] TSH 0.748 {uIU/mL} (Normal) Range: 0.450-4.500 :33 HgA1C , Office (60714) HgA1C , Office 5.4 % (Normal) Range: 4.6 - 7.1 :33 Blood Glucose , Office (65488) Blood Glucose , Office 76 (Normal) 8-Ubj-953253:20 Microscopic Examination Comments: PATIENT WAS FASTINGPERFORMED BY: [employer] LabCoV[facility])Gixsnw3129 [facility] [id number] Bacteria Few (Normal) Mucus Threads Present (Normal) Epithelial Cells (non renal) 0-10 {/hpf} (Normal) Range: 0 - 10 RBC 0-2 {/hpf} (Normal) Range: 0 - 2 WBC 11-30 {/hpf} (Abnormal) Range: 0 - 5 :20 MICROALBUMIN: CREATININE RATIO Comments: PATIENT WAS FASTINGPERFORMED BY: [facility]6370 [facility] [id number] (97527) AND (02750) Microalb/Creat Ratio 16.3 {mg/g_creat} (Normal) Range: 0.0-30.0 Microalbumin, Urine 21.2 ug/mL (Normal) Creatinine, Urine 130.4 mg/dL (Normal) 9-Gzo-589674:20 URINALYSIS (27404) Comments: PATIENT WAS FASTINGPERFORMED BY: [facility]6370 [facility] [id number] Microscopic Examination See below: (Normal) Comments: Microscopic was indicated and was performed. Nitrite, Urine Negative (Normal) Urobilinogen,Semi-Qn 0.2 mg/dL (Normal) Range: 0.2-1.0 Bilirubin Negative (Normal) Occult Blood Negative (Normal) Ketones Negative (Normal) Glucose Negative (Normal) Protein Negative (Normal) WBC Esterase 1+ (Abnormal) Appearance Clear (Normal) Urine-Color Yellow (Normal) pH 6.0 (Normal) Range: 5.0-7.5 Specific Liberty 1.022 (Normal) Range: 1.005-1.030 5-Fxl-913076:20 Metabolic Panel, Comprehensive Comments: PATIENT WAS FASTINGPERFORMED BY: [facility]6370 [facility] [id number] (10642) ALT (SGPT) 9 [iU]/L (Normal) Range: 0-32 [...] Glucose, Serum 80 mg/dL (Normal) Range: 65-99 3-Vbe-255313:20 Lipid Panel (25473) Comments: PATIENT WAS FASTINGPERFORMED BY: [facility] TechnologiesGr[facility]ville Medical Center [id number] LDL/HDL Ratio 1.4 {ratio_units} (Normal) Range: 0.0-3.2 Comments: LDL/HDL Ratio Men Women 1/2 Avg.Risk 1.0 1.5 Av g.Risk 3.6 3.2 2X Avg.Risk 6.2 5.0 3X Avg.Risk 8.0 6.1 LDL Cholesterol Calc 98 mg/dL (Normal) Range: 0-99 VLDL Cholesterol Jessica 19 mg/dL (Normal) Range: 5-40 HDL Cholesterol 70 mg/dL (Normal) Triglycerides 95 mg/dL (Normal) Range: 0-149 Cholesterol, Total 187 mg/dL (Normal) Range: 100-199 8-Eda-392505:20 CBC, Platelets & Auto Diff Comments: PATIENT WAS FASTINGPERFORMED BY: [employer]70 [facility] [id number] (25011) Immature Grans (Abs) 0.0 {x10E3/uL} (Normal) Range: [...] 3.77-5.28 WBC 5.4 {x10E3/uL} (Normal) Range: 3.4-10.8 4-Qcm-621056:20 CALCIFEDIOL (02963) Comments: PATIENT WAS FASTINGPERFORMED BY: [facility]6370 [facility] [id number] Vitamin D, 25-Hydroxy 30.8 ng/mL (Normal) Range: 30.0-100.0 Comments: Vitamin D deficiency has been defined by the Golden ofMedicine and an Endocrine Society practice guideline as alevel of serum 25-OH vitamin D less than 20 ng/mL (1,2).The Endocrine Society went on to further define vitamin Dinsufficiency as a level between 21 and 29 ng/mL (2).1. IOM (Golden of Medicine). 2010. Dietary reference intakes for calcium and D. [place]: The National Academies Press.2. Tono KO, Jonatan DYER, Fabiola HUANG, et al. Evaluation, treatment, and prevention of vitamin D deficiency: an Endocrine Society clinical practice guideline. JCEM. 2010; 96(7):1911-30. :53 HgA1C , Office (74760) HgA1C , Office 5.3 % (Normal) Range: 4.6 - 7.1 :53 Blood Glucose , Office (71693) Blood Glucose , Office 79 (Normal) :38 HgA1C , Office (26267) HgA1C , Office 5.5 % (Normal) Range: 4.6 - 7.1 :02 PT (Prothrobim Time) Comments: so; PATIENT NOT FASTINGPERFORMED BY: [facility] Stycxz6378 [facility] [id number] Information: [id number] (93617) Prothrombin Time 20.8 {sec} (Abnormal) Range: 9.1-12.0 INR 2.0 (Abnormal) Range: 0.8-1.2 Comments: Reference interval is for non-anticoagulated patients. . Suggested INR therapeutic range for Vitamin K anta gonist therapy: Standard Dose (moderate intensity therapeutic range): 2.0 - 3.0 Higher intensity therapeutic range 2.5 - 3.5 :07 CBC W/Diff, Automated Comments: [facility] [address] [place], [place], [address] ; Dr oates Absolute Lymph 2.18 {X10_3/ul} [...] K/mm3 (Normal) Range: 4.4-11.0 :36 CREATININE CLEARANCE (11370) Comments: PATIENT NOT FASTINGPERFORMED BY: [employer] m[employer] [facility] [id number] Creatinine Clearance 61 mL/min (Abnormal) Range: 88-128 Comments: The above range is based on 1.73 square meter average body surfacearea. Creatinine, Ur 24hr 575.7 {mg/24_hr} (Abnormal) Range: 800.0-1800.0 Creatinine, Urine 60.6 mg/dL (Normal) :36 Total Protein,24 Hour Urine Comments: PATIENT NOT FASTINGPERFORMED BY: [facility]LETUS NETWORKVirtua [facility])Jdxuud6961 [facility] [id number] (51677) Prot,24hr calculated 191.0 {mg/24_hr} (Abnormal) Range: 30.0-150.0 Protein,Total,Urine 20.1 mg/dL (Normal) :36 METABOLIC PANEL, COMPREHENSIVE Comments: PATIENT NOT FASTINGPERFORMED BY: BOLETUS NETWORKVirtua [facility] ([facility])Murkwb6151 [facility] [id number] (53142) ALT (SGPT) 8 [iU]/L (Normal) Range: 0-32 [...] auto diff Comments: PATIENT NOT FASTINGPERFORMED BY: [facility]CoV[facility])Gjmpob8698 [facility] [id number] Information: [id number] (83579) Immature Grans (Abs) 0.0 {x10E3/uL} (Normal) Range: [...] (Normal) Range: 3.4-10.8 :44 HgA1C , Office (75293) HgA1C , Office 5.2 % (Normal) Range: 4.6 - 7.1 :14 HH, Hemoglobin AND Hematocrit Comments: [facility] Bdhnjfhirk6262 [facility] [address] [place], [place], [address](676) HCT 35.4 % (Abnormal) Range: 37-47 HGB 11.3 g/dL (Abnormal) Range: 12.0-15.0 11-Lte-216435:25 Basic Metabolic Profile (BMP) Comments: 'TROP' Serial specimen #1, #2, #3, or #4: [facility] [address] [place], [place], [address] GAP 3 (Abnormal) Range: 5-15 CO2 29.0 [...] <126 mg/dLsuggests IMPAIRED HOMEOSTASIS per A.D.A. criteria. 75-Nxk-271507:25 CBC W/Diff, Automated Comments: [facility] [address] [place], [place], [address] Absolute Lymph 2.14 {X10_3/ul} (Normal) Range: 0.83-4.51 [...] 4.2-5.4 WBC 5.7 K/mm3 (Normal) Range: 4.4-11.0 24-Gex-957088:25 Troponin-I Comments: 'TROP' Serial specimen #1, #2, #3, or #4: 1[facility] [address] [place], [address] TROPONIN-I < 0.02 ng/mL (Normal) Comments: TROPONIN-I EXPECTED VALUES <0.05 NEGATIVE 0.06 - 0.59 AT RISK OF MA > OR = 0.60 SUGGEST MA 51-Tve-669811:25 METABOLIC PANEL, COMPREHENSIVE Comments: PATIENT NOT FASTINGPERFORMED BY: [facility] Zqjqll7924 [facility] [id number] (61970) ALT (SGPT) 11 [iU]/L (Normal) Range: 0-32 [...] be decreased and K increased. Clinicalcorrelation indicated. 88-Ytd-662881:25 CBC with auto diff Comments: PATIENT NOT FASTINGPERFORMED BY: [facility] Ggtnwf9382 [facility] [id number] Information: [id number] (85967) Immature Grans (Abs) 0.0 {x10E3/uL} (Normal) Range: [...] 3.4-10.8 :11 HH, Hemoglobin AND Hematocrit Comments: [facility] [address] [place], [address] ; ordred by another doctor [facility] HCT 24.1 % (Abnormal) Range: 37-47 HGB 7.9 g/dL (Abnormal) Range: 12.0-15.0 :25 Urinalysis, Complete Comments: How was Urine Obtained? CLEANER TOUCH UP WORKER TO SPECIFYGrand [facility] Joint [facility] Hospital [address] [place], [address] MUCUS, URINE 0 SEEN {/hpf} (Normal) [...] Serial specimen #1, #2, #3, or #4: 1[facility] [address] [place], [address] LENNY 29 U/L (Normal) Range: 25-115 :00 CBC W/Diff, Automated Comments: [facility] [address] [place], [address] Absolute Lymph 1.14 {X10_3/ul} (Normal) Range: 0.83-4.51 [...] Serial specimen #1, #2, #3, or #4: 1[facility] [address] [place], [place], [address] GAP 11 (Normal) Range: 5-15 CO2 22.0 [...] per A.D.A. criteria. 12-Sep-20153:00 Lactic Acid Comments: [facility] [address] [place], [address] LACTIC ACID 3.8 mmol/L (Abnormal) Range: 0.4-2.0 12-Sep-20153:00 Lipase Comments: 'TROP' Serial specimen #1, #2, #3, or #4: [facility] [address] [place], [address] LIPASE 84 U/L (Normal) Range: 73-393 12-Sep-20153:00 Partial Thromboplast Time Comments: [facility] [address] [place], [address] PTT 30.2 s (Normal) Range: 24.1-36.2 12-Sep-20153:00 Prothrombin Time w/INR Comments: [facility] [address] [place], [address] INR 3.7 (Abnormal) Comments: CRITICAL VALUE REPEATED AND VERIFIED. CALLED TO HJBGZSQI68/09/16 0336 Nia Delong.RESULTS READ BACK BY SAME . PROTIME 35.8 s (Abnormal) Range: 11.7-14.9 12-Sep-20153:00 Troponin-I Comments: 'TROP' Serial specimen #1, #2, #3, or #4: 1[facility] [address] [place], [address] TROPONIN-I 0.05 ng/mL (Normal) Comments: TROPONIN-I EXPECTED VALUES <0.05 NEGATIVE 0.06 - 0.59 AT RISK OF MA > OR = 0.60 SUGGEST MA 23-Oac-461298:09 INR Fingerstick Comments: [facility] LaboratoryPoint [address] [place] [address] INR ISTAT 1.60 (Normal) Comments: Critical Value > 3.5 92-Qfi-237955:09 Prothrombin Time Fingerstick Comments: [facility] [address] [place] [address] PROTIME ISTAT 19.2 {SEC} (Abnormal) Range: 11.9-14.4 Comments: Reference Range 11.9 - 14.4 85-Gms-396303:23 URINE CAMERON CULTURE-IDENTIFICATN Comments: PATIENT NOT FASTINGPERFORMED BY: LabCoVirtua [facility])Nfyzts2622 [facility] [id number] Information: [id number] (96905) Result 1 BETAGB (Abnormal) Comments: Beta hemolytic [...] (CLSI 2011) Urine Final report (Abnormal) Culture,Comprehensive 93-Ulq-426354:05 Urinalysis, Office (65292) UA - LEUKOCYTE ESTERASE Small (Normal) UA - NITRITE Negative (Normal) URINE UROBILINGN HAIDER TIMED Normal mg/dL (Normal) UA - PROTEIN Negative mg/dL (Normal) UA - PH 7 (Normal) UA - BLOOD Hemolyzed Large (Normal) UA - SPECIFIC GRAVITY 1.010 (Normal) UA - KETONES Negative mg/dL (Normal) UA - BILIRUBIN Negative (Normal) UA - GLUCOSE Negative (Normal) 63-Nzv-603245:22 INR Fingerstick Comments: [address] [place] [address] INR ISTAT 2.70 (Normal) Comments: Critical Value > 3.5 76-Tro-577744:22 Prothrombin Time Fingerstick Comments: [address] [place] [address] PROTIME ISTAT 30.9 {SEC} (Abnormal) Range: 11.9-14.4 Comments: Reference Range 11.9 - 14.4 99-Dlr-560895:37 INR Fingerstick Comments: [place] [address] [place] [address] INR ISTAT 2.90 (Normal) Comments: Critical Value > 3.5 77-Vrf-116910:37 Prothrombin Time Fingerstick Comments: [place] [address] [place] [address] PROTIME ISTAT 32.8 {SEC} (Abnormal) Range: 11.9-14.4 Comments: Reference Range 11.9 - 14.4 :41 INR Fingerstick Comments: [place] [address] [place] [address] INR ISTAT 2.50 (Normal) Comments: Critical Value > 3.5 :41 Prothrombin Time Fingerstick Comments: [place] [address] [place] [address] PROTIME ISTAT 28.4 {SEC} (Abnormal) Range: 11.9-14.4 Comments: Reference Range 11.9 - 14.4 08-Fjh-871413:30 INR Fingerstick Comments: [place] [address] [place] [address] INR ISTAT 2.40 (Normal) Comments: Critical Value > 3.5 66-Iwx-130555:30 Prothrombin Time Fingerstick Comments: [place] [address] [place] [address] PROTIME ISTAT 27.3 {SEC} (Abnormal) Range: 11.9-14.4 Comments: Reference Range 11.9 - 14.4 :51 PT (Prothrobim Time) Comments: standing order fingerstick or serum; PATIENT NOT FASTINGPERFORMED BY: [facility])Iqtnbi7400 [facility] [id number] Information: [id number] (33094) Prothrombin Time 33.2 {sec} (Abnormal) Range: 9.1-12.0 INR 3.2 (Abnormal) Range: 0.8-1.2 Comments: Reference interval is for non-anticoagulated patients. . Suggested INR therapeutic range for Vitamin K anta gonist therapy: Standard Dose (moderate intensity therapeutic range): 2.0 - 3.0 Higher intensity therapeutic range 2.5 - 3.5 34-Ndx-336190:05 HgA1C , Office (74382) HgA1C , Office 5.5 % (Normal) Range: 4.6 - 7.1 62-Dot-476452:50 Prothrombin Time w/INR Comments: [place] [address] [place], [address] INR 2.5 (Normal) PROTIME 26.9 s (Abnormal) Range: 11.7-14.9 63-Mvo-620947:05 Prothrombin Time w/INR Comments: [place] [address] [place], [place], [phone] INR 2.4 (Normal) PROTIME 26.1 s (Abnormal) Range: 11.7-14.9 22-Wpm-946485:31 Prothrombin Time w/INR Comments: [facility] [address] [place], [address] INR 3.1 (Normal) PROTIME 31.9 s (Abnormal) Range: 11.7-14.9 12-Hgp-604383:14 Prothrombin Time w/INR Comments: [facility] [address] [place], [address] INR 2.9 (Normal) PROTIME 30.4 s (Abnormal) Range: 11.7-14.9 25-Jvx-160996:40 Prothrombin Time w/INR Comments: [facility] [address] [place], [address] INR 2.4 (Normal) PROTIME 26.3 s (Abnormal) Range: 11.7-14.9 14-Mfj-697780:00 PT (Prothrobim Time) Comments: standing order; PATIENT NOT FASTINGPERFORMED BY: Jiuxian.comRehabilitation Hospital of Southern New MexicoGtieuz9261 [facility] [id number] Information: [id number] (49994) Prothrombin Time 17.3 {sec} (Abnormal) Range: 9.1-12.0 INR 1.7 (Abnormal) Range: 0.8-1.2 Comments: Reference interval is for non-anticoagulated patients. . Suggested INR therapeutic range for Vitamin K anta gonist therapy: Standard Dose (moderate intensity therapeutic range): 2.0 - 3.0 Higher intensity therapeutic range 2.5 - 3.5 16-Uhz-702664:00 Hemoglobin Glyclated (HGB A1C) Comments: PATIENT NOT FASTINGPERFORMED BY: [place] GamesCoVirtua Mt. [facility] ([facility])Umawrl9305 [facility] [id number] (05479) Hemoglobin A1c 5.7 % (Abnormal) Range: 4.8-5.6 Comments: . Increased risk for diabetes: 5.7 - 6.4 Diabetes: >6.4 Glycemic control for adults with diabetes: <7.0 16-Soc-922322:34 Prothrombin Time w/INR Comments: Test performed at:[facility] [address] [place] [address] INR 2.3 (Normal) PROTIME 25.4 s (Abnormal) Range: 11.7-14.9 :54 Prothrombin Time w/INR Comments: Test performed at:[facility] [address] [place] [address] INR 2.6 (Normal) PROTIME 27.6 s (Abnormal) Range: 11.7-14.9 :50 PT (Prothrobim Time) Comments: so; PATIENT NOT FASTINGPERFORMED BY: [employer] [facility] [id number] Information: [id number] ([id number]) Prothrombin Time 35.6 {sec} (Abnormal) Range: 9.1-12.0 INR 3.4 (Abnormal) Range: 0.8-1.2 Comments: Reference interval is for non-anticoagulated patients. . Suggested INR therapeutic range for Vitamin K anta gonist therapy: Standard Dose (moderate intensity therapeutic range): 2.0 - 3.0 Higher intensity therapeutic range 2.5 - 3.5 71-Jae-559081:42 Prothrombin Time w/INR Comments: Test performed at:[facility] [address] [place] [address] INR 1.9 (Normal) PROTIME 22.2 s (Abnormal) Range: 11.7-14.9 :10 Prothrombin Time w/INR Comments: Test performed at:[facility] [address] [place] [address] INR 2.5 (Normal) PROTIME 26.7 s (Abnormal) Range: 11.7-14.9 :49 CBC with auto diff Comments: copy of all labs to Dr. martinez; PATIENT WAS FASTINGPERFORMED BY: [facility] Kfyktj1084 [facility] [id number] Information: [id number] (14065) Immature Grans (Abs) 0.0 {x10E3/uL} (Normal) Range: [...] 3.77-5.28 WBC 6.0 {x10E3/uL} (Normal) Range: 3.4-10.8 93-Hpu-290732:49 CALCIFIDIOL (49433) VIT D 25 Comments: PATIENT WAS FASTINGPERFORMED BY: [facility]6370 [facility] [id number] Vitamin D, 25-Hydroxy 28.0 ng/mL (Abnormal) Range: 30.0-100.0 Comments: Vitamin D deficiency has been defined by the Golden ofMedicine and an Endocrine Society practice guideline as alevel of serum 25-OH vitamin D less than 20 ng/mL (1,2).The Endocrine Society went on to further define vitamin Dinsufficiency as a level between 21 and 29 ng/mL (2).1. IOM (Golden of Medicine). 2010. Dietary reference intakes for calcium and D. [place]: The National Academies Press.2. Tono MF, Jonatan DYER, Fabiola HUANG, et al. Evaluation, treatment, and prevention of vitamin D deficiency: an Endocrine Society clinical practice guideline. JCEM. 2010; 96(7):1911-30. :49 MICROALBUMIN: CREATININE RATIO Comments: PATIENT WAS FASTINGPERFORMED BY: Jiuxian.comRehabilitation Hospital of Southern New MexicoMogmak5156 [facility] [id number]; [address] ([address]) AND (56360) Microalb/Creat Ratio 23.8 {mg/g_creat} (Normal) Range: 0.0-30.0 Microalbumin, Urine 17.2 ug/mL (Abnormal) Range: 0.0-17.0 Creatinine, Urine 72.3 mg/dL (Normal) Range: 15.0-278.0 :49 METABOLIC PANEL, COMPREHENSIVE Comments: PATIENT WAS FASTINGPERFORMED BY: BOLETUS NETWORKRehabilitation Hospital of Southern New MexicoKfnurh6838 [facility] [id number] (22895) ALT (SGPT) 7 [iU]/L (Normal) Range: 0-32 [...] Glucose, Serum 82 mg/dL (Normal) Range: 65-99 13-Uxi-993047:49 LIPID PANEL (61977) Comments: PATIENT WAS FASTINGPERFORMED BY: [facility]CoV[facility])Sdvdwb4225 [facility] [id number] LDL/HDL Ratio 1.0 {ratio_units} (Normal) Range: 0.0-3.2 [...] Cholesterol, Total 149 mg/dL (Normal) Range: 100-199 99-Onq-593962:26 HgA1C , Office (17462) HgA1C , Office 5.6 % (Normal) Range: 4.6 - 7.1 06-Gga-641561:26 Blood Glucose , Office (05366) Blood Glucose , Office 102 (Normal) :27 Prothrombin Time w/INR Comments: Test performed at:[facility] [address] [place], [place] [address] INR 3.3 (Normal) PROTIME 33.6 s (Abnormal) Range: 11.7-14.9 65-Gkv-208766:35 Prothrombin Time w/INR Comments: Test performed at:[facility] [address] [place] [address] INR 2.7 (Normal) PROTIME 28.9 s (Abnormal) Range: 11.7-14.9 :18 Prothrombin Time w/INR Comments: Test performed at:[facility] [address] [place] [address] INR 2.5 (Normal) PROTIME 27.0 s (Abnormal) Range: 11.7-14.9 :37 Prothrombin Time w/INR Comments: Test performed at:[facility] [address] [place] [address] INR 2.2 (Normal) PROTIME 24.4 s (Abnormal) Range: 11.7-14.9 :13 Prothrombin Time w/INR Comments: Test performed at:[facility] [address] [facility] [place] [address] INR 2.4 (Normal) PROTIME 26.2 s (Abnormal) Range: 11.7-14.9 :48 PT INR 2.4 (Normal) PTP 25.8 s (Abnormal) Range: 11.7-14.9 :43 HgA1C , Office (67653) HgA1C , Office 5.8 % (Normal) Range: 4.6 - 7.1 :43 Blood Glucose , Office (98404) Blood Glucose , Office 98 (Normal) :15 [...] 4.2-5.4 WBC 5.0 K/mm3 (Normal) Range: 4.4-11.0 01-Iyn-539511:15 CMP GAP 6 (Normal) Range: 5-15 CO2 [...] 7-18 GLU 80 mg/dL (Normal) Range: 70-110 10-Ohv-043646:15 LIPID VLDL 19 mg/dL (Normal) Range: 5-40 [...] CHOL 130 mg/dL (Normal) Comments: <200 mg/dL Dfhprekjn595-321 mg/dL Borderline>240 mg/dL High Risk 09-Icq-384427:15 PT INR 2.7 (Normal) PTP 28.2 s (Abnormal) Range: 11.7-14.9 75-Sio-477467:15 UAC Comments: How was Urine Obtained? CLEAN [...] (Normal) UCLAR Clear (Normal) UCOL Yellow (Normal) 63-Upb-275156:15 VITD 53.7 ng/mL (Normal) Comments: Vitamin D [...] Comments: Please note revised PROTIME reference range cbebidnuc47/14/15. 4-Vow-617837:27 PT INR 1.6 (Normal) PTP 19.1 s (Abnormal) Range: 11.7-14.9 Comments: Please note revised PROTIME reference range qjyyqmndy50/14/15. :55 HgA1C , Office (85296) HgA1C , Office 6.0 % (Normal) Range: 4.6 - 7.1 :55 Blood Glucose , Office (00970) Blood Glucose , Office 103 (Normal) :55 PT INR 2.3 (Normal) PTP 24.9 s (Abnormal) Range: 11.7-14.9 Comments: Please note revised PROTIME reference range ytissbqjz25. 9-:51 PT INR 2.1 (Normal) PTP 21.9 [...] CHOL 153 mg/dL (Normal) Comments: <200 mg/dL Dqdyvpror517-197 mg/dL Borderline>240 mg/dL High Risk TRIG 93 mg/dL (Normal) Range: 0-199 Comments: Serum Triglycerides Reference IntervalNormal <150 mg/dLBorderline high 150 - 199 mg/dLHigh 200 - 499 mg/ dLVery High > or = 500 mg/dL :08 Blood Glucose , Office (39480) Blood Glucose , Office 90 (Normal) :08 HgA1C , Office (61246) HgA1C , Office 6.0 % (Normal) Range: [...] (Abnormal) Range: 11.9-14.4 :12 HgA1C , Office (41412) HgA1C , Office 6.8 % (Normal) Range: 4.6 - 7.1 :12 Blood Glucose , Office (04326) Blood Glucose , Office 109 (Normal) :20 [...] CHOL 167 mg/dL (Normal) Comments: <200 mg/dL Sxcehwkth205-016 mg/dL Borderline>240 mg/dL High Risk TRIG 155 [...] (Prothrobim Time) Comments: PATIENT NOT FASTINGPERFORMED BY: [facility]CoV[facility])Aqozdz1508 [facility] [id number] Information: [id number] (98595) Prothrombin Time 18.3 {sec} (Abnormal) Range: 9.1-12.0 INR 1.8 (Abnormal) Range: 0.8-1.2 Comments: Reference interval is for non-anticoagulated patients. . Suggested INR therapeutic range for Vitamin K anta gonist therapy: Standard Dose (moderate intensity therapeutic range): 2.0 - 3.0 Higher intensity therapeutic range 2.5 - 3.5 82-Nuh-233076:06 PT (Prothrobim Time) Comments: PATIENT NOT FASTINGPERFORMED BY: [facility] Teiljn4256 [facility] [id number] Information: [id number] (45326) Prothrombin Time 29.0 {sec} (Abnormal) Range: 9.1-12.0 INR 2.8 (Abnormal) Range: 0.8-1.2 Comments: Reference interval is for non-anticoagulated patients. . Suggested INR therapeutic range for Vitamin K anta gonist therapy: Standard Dose (moderate intensity therapeutic range): 2.0 - 3.0 Higher intensity therapeutic range 2.5 - 3.5 4-Aqe-435599:23 PT (Prothrobim Time) Comments: PATIENT NOT FASTINGPERFORMED BY: [facility]6370 [facility] [id number] Information: [id number],2ND ORDER NO DRAW F EE (89588) Prothrombin Time 31.6 {sec} (Abnormal) Range: 9.1-12.0 INR 3.0 (Abnormal) Range: 0.8-1.2 Comments: Reference interval is for non-anticoagulated patients. . Suggested INR therapeutic range for Vitamin K anta gonist therapy: Standard Dose (moderate intensity therapeutic range): 2.0 - 3.0 Higher intensity therapeutic range 2.5 - 3.5 7-Jgl-001425:23 TSH (08614) Comments: recheck in 3-4 weeks; PATIENT NOT FASTINGPERFORMED BY: [facility] Cscesv4443 [facility] [id number] TSH 1.150 {uIU/mL} (Normal) Range: 0.450-4.500 5-Okd-611356:23 T4, FREE (THYROXINE) Comments: recheck in 3-4 weeks; PATIENT NOT FASTINGPERFORMED BY: [facility]6370 [facility] [id number] Information: [id number] (00614) T4,Free(Direct) 1.08 ng/dL (Normal) Range: 0.82-1.77 6-Dzu-571689:23 T3, FREE (TRIDOTHYRONINE) (63387) Comments: recheck in 3-4 weeks; PATIENT NOT FASTINGPERFORMED BY: [facility] Vofhmk1725 [facility] [place] [id number] Triiodothyronine,Free,Serum 2.2 pg/mL (Normal) Range: 2.0-4.4 :44 PT (Prothrobim Time) Comments: results to Dr Enrique; PATIENT NOT FASTINGPERFORMED BY: [facility] Nslgub2082 [facility] [id number] Information: [id number] (50461) Prothrombin Time 31.4 {sec} (Abnormal) Range: 9.1-12.0 INR 3.0 (Abnormal) Range: 0.8-1.2 Comments: Reference interval is for non-anticoagulated patients. . Suggested INR therapeutic range for Vitamin K anta gonist therapy: Standard Dose (moderate intensity therapeutic range): 2.0 - 3.0 Higher intensity therapeutic range 2.5 - 3.5 :44 TSH (10770) Comments: PATIENT NOT FASTINGPERFORMED BY: [facility] Fhepto0087 [facility] [id number] TSH 0.139 {uIU/mL} (Abnormal) Range: 0.450-4.500 :44 T4, FREE (THYROXINE) (62210) Comments: PATIENT NOT FASTINGPERFORMED BY: [facility] Grufel9262 [facility] [place] [id number] T4,Free(Direct) 1.18 ng/dL (Normal) Range: 0.82-1.77 :44 T3, FREE (TRIDOTHYRONINE) (82575) Comments: PATIENT NOT FASTINGPERFORMED BY: [facility] Emdwmk6434 [facility] [place] [id number] Triiodothyronine,Free,Serum 2.1 pg/mL (Normal) Range: 2.0-4.4 :02 SED RATE ERYTHROCYTE (74864) Comments: PATIENT NOT FASTINGPERFORMED BY: [facility]6370 [facility] [id number] Sedimentation Rate-Westergren 18 mm/h (Normal) Range: 0-40 :02 TSH (25147) Comments: PATIENT NOT FASTINGPERFORMED BY: LabCoKelsey [facility] [address]70 [facility] [id number] TSH 0.358 {uIU/mL} (Abnormal) Range: 0.450-4.500 :02 VIKI (ANTINUCLEAR ANTIBODY) Comments: PATIENT NOT FASTINGPERFORMED BY: [address] [id number] (64991) VIKI Direct Negative (Normal) :02 CBC WITH MANUAL DIFF Comments: PATIENT NOT FASTINGPERFORMED BY: LabTanner [place] [address] [facility] [id number] Information: [id number] (01858) Immature Grans (Abs) 0.0 {x10E3/uL} (Normal) Range: [...] of these values in the reference population. 9-Pss-296825:02 METABOLIC PANEL, COMPREHENSIVE Comments: PATIENT NOT FASTINGPERFORMED BY: [facility]CoV[facility])Spdoit2021 [facility] [id number] (26821) ALT (SGPT) 11 [iU]/L (Normal) Range: 0-32 [...] Glucose, Serum 94 mg/dL (Normal) Range: 65-99 29-Juw-516908:20 PT INR 2.0 (Normal) PTP 21.6 s (Abnormal) Range: 11.9-14.4 68-Yzf-722835:24 BILAT SCRN DIGITAL & CAD Radiology Report [...] M.D.January 31, 2013 at 6:48:38 P M [id number] Signed RU/RU If you are the referring physician and would like to consult with theradiologist who provided this interpretation, please contact Taz Stack at . If this radiologist is unavailable, youwillbe directed to another radiologist to assist. If you are a patient with a question regarding this report, pleasecontactyour referring physician johan dxeter. Professional Interpretation Provided By: [employer], Phone , These documents contain legally protected [...] the return or destructionofthese documents. Dictated on 01/31/13 184 by Jhon LazcanoTranscribed on 01/31/131904 by ITS IMPORTSign by Jhon Lazcano on 01/31/131905 Sign by: Jhon Lazcano :53 Blood Glucose , Office (94979) Blood Glucose , Office 115 (Normal) :53 HgA1C , Office (66409) HgA1C , Office 6.1 % (Normal) Range: 4.6 - 7.1 5-Baq-082039:52 PT INR 1.7 (Normal) PTP 18.6 s (Abnormal) Range: 11.9-14.4 66-Hye-398268:56 Aerobic Bacterial Culture Comments: PERFORMED BY: LILIANA LabCoV[facility])Rsbvgp0362 [place] [id number] Information: SRC:UB Result 1 Mixed skin yaakov (Normal) Aerobic Bacterial Culture Final report (Normal) :37 PT INR 2.5 (Normal) PTP 25.6 s (Abnormal) Range: 11.9-14.4 :03 HgA1C , Office (66867) HgA1C , Office 7.1 % (Normal) Range: [...] D deficiency has been defined by the Golden ofMedicine and an Endocrine Society practice guideline as alevel of serum 25-OH vitamin D less than 20 ng/mL (1,2).The Endocrine Society went on to further define vitamin Dinsufficiency as a level between 21 and 29 ng/mL (2).1. IOM (Golden of Medicine). 2010. Dietary reference intakes for calcium and D. [place]: The National Academies Press.2. Tono MF, Jonatan DYER, Fabiola HUANG, et al. Evaluation, treatment, and prevention of vitamin D deficiency: an Endocrine Society clinical practice guideline. JCEM. 2010; 96(7): 1911-30.Performed at: [facility] Lab[address] [id number] Director: Tyrese Arora PhD, Phone: [phone] PT INR 2.7 (Normal) PTP 26.4 [...] (Normal) PTP 27.5 s (Abnormal) Range: 11.9-14.4 82-Qju-632699:29 PT INR 3.8 (Abnormal) Comments: RESULTS CALLED TO DIMA AT DR ENRIQUE'S002/20/12 1304 MELISSA BATEMAN.REPORT READ BACK BY SAME . PTP 34.2 s (Abnormal) Range: 11.9-14.4 :28 HgA1C , Office (41745) HgA1C , Office 6.1 % (Normal) Range: 4.6 - 7.1 26-Lfx-420174:28 Blood Glucose , Office (52993) Blood Glucose , Office 154 (Normal) 69-Xfj-383387:15 PT INR 2.5 (Normal) PTP 25.2 s (Abnormal) Range: 11.9-14.4 62-Qdc-632937:46 BILAT SCRN DIGITAL & CAD Radiology Report [...] Perea M.D.January 30, 2012 at 12:54:04 PM [id number] Signed GP/GP If you are the referring physician and would like to consult with t heradiologist who provided this interpretation, please contact Taz Morrison at [phone]. If this radiologist is unavailable, youwill be directed to another radiologist to assist. If you a re a patient with a question regarding this report, pleasecontactyour referring physician directly. Professional Interpretation Provided By: [employer], Phone , These docu ments contain legally [...] destructionofthese documents. Dictated on 01/30/12 1146 by Eliazar BAUTISTA,Silvinoranscribed on 01/30/12 1431 by ITS IMPORTSign by Sergio Perea MD on 01/30/12 1432 Sign by: Sergio Perea MD 69-Frl-431643:58 PT Comments: standing order INR 3.5 (Normal) PTP 32.2 s (Abnormal) Range: 11.9-14.4 78-Dxm-234872:51 PT INR 2.6 (Normal) PTP 25.9 s [...] Alvarez M.D.December 26, 2011 at 10:00:06 AM [id number] Signed RB/RB If y ou are the [...] Phone , Dictated on 12/26/11 0846 by Antonio BAUTISTA,Doniranscribed on 12/26/11 1005 by ITS IMPORTSign by Brian Alvarez MD on 12/26/11 1006 Sign by: Brian Alvarez MD 2-Erp-046805:15 PT INR 1.9 (Normal) PTP 20.2 s (Abnormal) Range: 11.9-14.4 :46 HgA1C , Office (29514) HgA1C , Office 6.5 % (Normal) Range: 4.6 - 7.1 :46 Blood Glucose , Office (15494) Blood Glucose , Office 107 (Normal) :14 [...] (Abnormal) Range: 11.9-14.4 :14 HgA1C , Office (82069) HgA1C , Office 7.2 % (Abnormal) Range: 4.6 - 7.1 :14 Blood Glucose , Office (84350) Blood Glucose , Office 126 (Normal) 85-Jaq-998691:12 PRO TIME INR 2.9 (Normal) PROTIME 28.7 [...] s (Abnormal) Range: 11.9-14.4 :22 VIT D,25 99694 45.9 ng/mL (Normal) Range: 30.0-100.0 Comments: Vitamin D deficiency has been defined by the Golden ofMedicine and an Endocrine Society practice guideline as alevel of serum 25-OH vitamin D less than 20 ng/mL (1,2).The Endocrine Society went on to further define vitamin Dinsufficiency as a level between 21 and 29 ng/mL (2).1. IOM (Golden of Medicine). 2011. Dietary reference intakes for calcium and D. [place]: The National Academies Press.2. Tono MF, Jonatan DYER, Fabiola HUANG, et al. Evaluation, treatment, and prevention of vitamin D deficiency: an Endocrine Society clinical practice guideline. JCEM. 2010; 96(7): 1911-30.Performed at: - [address] [id number] Director: Kathleen Lorenzo MD, Phone: [phone] :[phone] PRO TIME INR 2.6 (Normal) PROTIME 26.9 s (Abnormal) Range: 11.9-14.4 :18 PRO TIME INR 1.8 (Normal) PROTIME 20.1 s (Abnormal) Range: 11.9-14.4 :04 HgA1C , Office (83175) HgA1C , Office 5.9 % (Normal) Range: 4.6 - 7.1 :04 Blood Glucose , Office (27175) Blood Glucose , Office 101 (Normal) :12 [...] (Abnormal) Range: 11.9-14.4 :30 HgA1C , Office (53848) HgA1C , Office 6.4 % (Normal) Range: 4.6 - 7.1 C difficile Toxins Negative (Normal) Comments: PERFORMED BY: Jiuxian.comRehabilitation Hospital of Southern New MexicoKzdohb3001 [facility] [id number] :06 A+B, EIA Occult Blood, Fecal, Negative (Normal) Comments: PERFORMED BY: Jiuxian.comVirtua Mt. Holly ([facility])Ogwktc1210 [facility] [id number] :06 IA :06 Ova + Parasite Exam Comments: PERFORMED BY: Jiuxian.comVirtua Mt. Holly ([facility]orial)Dpobuy8030 [facility] [id number] Result 1 NOCP (Normal) Comments: No ova, cysts, or parasites seen. Ova + Parasite Exam Final report (Normal) Comments: These results were obtained using wet preparation(s) and trichromestained smear. This test does not include testing for Cryptosporidiumparvum, Cyclospora, or Microsporidia. 39-Eij-680123:06 Stool Culture Comments: PERFORMED BY: [facility]6370 [facility] [id number] Information: SRC:ST E coli Shiga Toxin EIA Negative (Normal) Result 1 NCI (Normal) Comments: No Campylobacter species isolated. Campylobacter Culture Final report (Normal) Result 1 NSS (Normal) Comments: No Salmonella or Shigella recovered. Salmonella/Shigella Screen Final report (Normal) 30-Mmg-722709:06 White Blood Cells (WBC), Comments: PERFORMED BY: [facility]6370 [facility] [id number] Stool Result 1 NWBC (Normal) Comments: No white blood cells seen. White Blood Cells (WBC), Final report (Normal) Comments: Reference Range: None Seen Stool 7-Qyx-195620:25 KNEE,4 OR MORE VIEWS Radiology Report See [...] lateral compartment and patellofemoral joint Dictated on 01/06/11 1439 by Tommy Rothman MDTranscribed on 01/06/11 1550 by ITS IMPORTSign by Tommy Rothman MD on 01/06/11 1551 Sign by: Tommy Rothman MD :00 KNEE,4 [...] on 01/06/111549 Sign by: Tommy Rothman MD 06-Jan-20110:00 L/S SPINE,MIN 4 VIEWS Radiology Report See [...] on 2223 Sign by: Keya Nava MD 71-Cem-929898:42 BILAT SCRN DIGITAL & CAD Radiology Report [...] CREAT 112.8 mg/dL (Normal) :43 VIT D,25 98169 38.3 ng/mL (Normal) Range: 32.0-100.0 Comments: Recent studies consider the lower limit of 32.0 ng/mL to gosia threshold for optimal health.Joseph NOEL. J Nutr. 2004;135(2):317-22.Performed at: - LabCoAngela Ville [id number] Director: Kathleen Lorenzo MD, Phone: [phone] 1-Tij-980906:14 CBCD,SMEAR DIFF PLT EST SeeNote (Normal) Comments: [...] 4.2-5.4 WBC 7.1 K/mm3 (Normal) Range: 4.4-11.0 5-Zyc-467798:14 COMP METABOLIC CO2 28.0 mmol/L (Normal) Range: [...] 7-18 GLU 104 mg/dL (Normal) Range: 70-110 3-Peh-230814:14 LIPID VLDL 23 mg/dL (Normal) Range: 5-40 [...] 200-240 mg/dL Borderline >240 mg/dL High Risk 4-Myc-302747:14 MICROALB:CRE UR MALB:CREAT 8.0 {mg/g_CRE} (Normal) MICROALBUMIN,UR 5.7 mg/L (Normal) UR CREAT 71.2 mg/dL (Normal) :14 VIT D,25 71785 39.1 ng/mL (Normal) Range: 32.0-100.0 Comments: Recent studies consider the lower limit of 32.0 ng/mL to gosia threshold for optimal health.Joseph NOEL. J Nutr. 2004;135(2):317-22.Performed at: - LabJohn Ville [address]Lab Director: Kathleen Lorenzo MD, Phone: [phone] 68-Toq-079295:36 HgA1C , Office (28150) HgA1C , Office 7.5 % (Abnormal) Range: 4.6 - 7.1 07-Fov-914412:36 Blood Glucose , Office (15034) Blood Glucose , Office 108 (Normal) :41 [...] CHOL 148 mg/dL (Normal) Comments: <200 mg/dL Gibijsrbx801-408 mg/dL Borderline>240 mg/dL High Risk HDL 62 [...] CREAT 78.4 mg/dL (Normal) :41 VIT D,25 36391 37.9 ng/mL (Normal) Range: 32.0-100.0 Comments: Recent studies consider the lower limit of 32.0 ng/mL to gosia threshold for optimal health.Joseph NOEL. J Nutr. 2004;135(2):317-22.Performed at: [facility] [address]Lab Director: Kathleen Lorenzo MD, Phone: [phone] Blood Glucose , Office (24410) Blood Glucose , Office 97 (Normal) :53 HgA1C , Office (81286) HgA1C , Office 7.1 % (Normal) Range: [...] CHOL 160 mg/dL (Normal) Comments: <200 mg/dL Maduspmfr309-046 mg/dL Borderline>240 mg/dL High Risk TRIG 105 [...] T PROT 7.2 g/dL (Normal) Range: 6.4-8.2 : TSH 0.87 {uIU/mL} (Normal) Range: 0.358-3.74 :55 BILAT SCRN DIGITAL & CAD Radiology Report See Note (Normal) Comments: Exam Number: [id number] MAMMOGRAM, BILATERAL SCREENING DIGITAL AND CAD HISTORYSix-month [...] mammograms werealso examined with computer-aided detection software ([employer] Engine, [employer] Reported By: ZULEYKA LYMAN M.D. 72-Kbf-940475:52 Blood Glucose , Office (21858) Blood Glucose , Office 128 (Normal) :24 [...] 31 mg/dL (Normal) Range: 5-40 :24 METHYLM 332116 134 nmol/L (Normal) Comments: SPE Scanned image [...] UR CREAT 79.1 mg/dL (Normal) :24 SPE [id number] Comments: SPE Scanned image report available in [...] electrophoresis scan will follow via computer,mail, or consumer sales representative delivery. PROTEIN,TOTAL 7.2 g/dL (Normal) Range: 6.0-8.5 :24 VIT D,25 65912 17.0 ng/mL (Abnormal) Comments: SPE Scanned image report available in PCI.See LAB REFERENCE RESULTS form. Range: 32.0-100.0 Comments: Recent studies consider the lower limit of 32.0 ng/mL to gosia threshold for optimal health.Joseph NOEL. J Nutr. 2004;135(2):317-22. :57 HgA1C , Office (84909) HgA1C , Office 7.3 % (Abnormal) Range: 4.6 - 7.1 :56 Blood Glucose , Office (19225) Blood Glucose , Office 144 (Normal) :52 [...] mg/dL VLDL 42 mg/dL (Abnormal) Range: 5-40 4-Usx-700027:19 UNILAT RT DIAG DIGITAL & CAD Radiology Report See Note (Normal) Comments: Exam Number: [id number] MAMMOGRAM, UNILATERAL RIGHT DIAGNOSTIC DIGITAL AND CAD HISTORY6-month followup abnormal right mammogram. Full field digital images were obtained in mediolateral obli que andcrani ocaudal projections. Rolled craniocaudal and spot craniocaudalviews were also obtained. CAD images were reviewed. The current study is compared to the examinations of January 27, 2006,February 14 7, and May 20, 2008. There is moderately [...] mammograms werealso examined with computer-aided detection software ([employer], [employer], [employer] Reported By: ZULEYKA LYMAN M.D. 46-Kdt-446803:29 HgA1C , Office (99172) HgA1C , Office 6.6 % (Normal) Range: 4.6 - 7.1 64-Hns-819934:29 Blood Glucose , Office (43094) Blood Glucose , Office 115 (Normal) :53 [...] T PROT 7.4 g/dL (Normal) Range: 6.4-8.2 70-Jhi-156612:13 UNILAT RT DIAG DIGITAL & CAD Radiology Report See Note (Normal) Comments: Exam Number: [id number] MAMMOGRAM, UNILATERAL RIGHT DIAGNOSTIC DIGITAL AND CAD [...] mammograms werealso examined with computer-aided detection software ([employer], [employer] Reported By: ZULEYKA LYMAN M.D. 15-Muo-960229:41 BILAT SCRN DIGITAL & CAD Radiology Report See Note (Normal) Comments: Exam Number: [id number] BILATERAL SCREENING MAMMOGRAM COMPARISONComparison is made to [...] The mammogramswere also examined with computer-aided detection software([employer].). Reported By: HARPER OLIVERA M.D. 83-Ssm-590490:38 Blood Glucose , Office (91423) Blood Glucose , Office 108 (Normal) :57 [...] (Normal) Range: 6.4-8.2 :42 HgA1C , Office (51563) HgA1C , Office 6.3 % (Normal) Range: [...] mg/dL (Normal) :19 Blood Glucose , Office (78787) Blood Glucose , Office 151 (Normal) Comments: :19 HgA1C , Office (00032) HgA1C , Office 6.0 % (Normal) Range: 4.6 - 7.1 Comments: 62-Mfd-206916:11 BREAST UNILATERAL US (HP) Radiology Report See Note (Normal) Comments: Exam Number: [id number] TARGETED RIGHT BREAST ULTRASOUND High resolution real time linear images were obtained at 12:00 at thelevel of palpable abnormality reported by the ordering physician andin the up per outer quadrant of the breast where the patient reportedpain. No solid or cystic mass is seen. No displacement of softtissue planes is identified. IMPRESSIONThere is no ultrasound abnormality identified. Reported By: ZULEYKA LYMAN M.D. :33 BILAT DIAG DIGITAL & CAD Radiology Report See Note (Normal) Comments: Exam Number: [id number] MAMMOGRAM, BILATERAL DIAGNOSTIC DIGITAL AND CAD HISTORYRoutine [...] mammograms werealso examined with computer-aided detection software ([employer].). Reported By: ZULEYKA LYMAN M.D. 5-Drb-491089:16 DEXA BONE DENSITY STUDY (HP) Radiology Report See Note (Normal) Comments: Exam Number: [id number] BONE DENSITOMETRY HISTORYPostmenopausal. TECHNIQUE Bone densitometry of [...] withinnormal limits. Reported By: ZULEYKA LYMAN M.D. 6-Wyz-118188:53 HgA1C , Office (18357) HgA1C , Office 5.8 % (Normal) Range: 4.6 - 7.1 0-Hlv-017617:53 Blood Glucose , Office (76868) Blood Glucose , Office 98 (Normal) 56-Kon-667231:00 CULTURE, URINE URINE CULTURE See Note {CFU/mL} (Normal) Comments: COLONY COUNT 11,000-25,000 ORGANISM 1: MIXED GRAM POS & NEG ORGANISMS 97-Nxz-607363:57 Urinalysis, Office (05846) Comments: ABN signed UA - BILIRUBIN Negative (Normal) UA - BLOOD Negative (Normal) UA - GLUCOSE Negative (Normal) UA - KETONES Negative mg/dL (Normal) UA - LEUKOCYTE ESTERASE Trace (Normal) UA - NITRITE Negative (Normal) UA - PH 7.0 (Normal) UA - PROTEIN Negative mg/dL (Normal) UA - SPECIFIC GRAVITY 1.005 (Normal) URINE UROBILINGN HAIDER TIMED 2 mg/dL (Normal) 48-Maa-25160:07 LIPID CHOL 166 mg/dL (Normal) Comments: <200 [...] T PROT 7.2 g/dL (Normal) Range: 6.4-8.2 95-Dma-059633:21 Blood Glucose , Office (32012) Blood Glucose , Office 120 (Normal) :21 HgA1C , Office (58769) HgA1C , Office 5.6 % (Normal) Range: 4.6 - 7.1 Plan of Care Name Dates Details Instructions Nonsmoker : Follow up in 10 days [...] : Follow up in 3 months for [facility] Med Indication: BMI 31.0-31.9,adult BMI 31.0-31.9,adult : [...] Cellulitis of left lower leg : Reviewed Solar Resource Assessor Letter Indication: Cellulitis of left lower leg [...] mellitus type II, controlled Planned Observations CALCIFEDIOL (91284)Indication: Vitamin D deficiency, unspecified On: 86-Tlo-047824:06 Request HgA1C , Office (43562)Indication: Diabetes mellitus type II, controlled On: :02 Request Blood Glucose , Office (45905)Indication: Diabetes mellitus type II, controlled On: :02 Request Metabolic Panel, Basic (58700)Indication: Abdominal pain On: 4-Yrn-791194:30 Request CBC, Platelets & Auto Diff (60589)Indication: Abdominal pain On: 9-Tnk-179273:29 Request CBC WITH MANUAL DIFF (53367)Indication: Anemia On: 83-Ejg-871865:56 Request CBC WITH MANUAL DIFF (13059)Indication: Bleeding ulcer On: 76-Pza-618350:49 Request URINALYSIS, W/ MICRO (66394)Indication: Hypertension, benign On: 16-Srk-027441:21 Request METABOLIC PANEL, COMPREHENSIVE (72221)Indication: Hypertension, benign On: :21 Request LIPID PANEL (74975)Indication: Hypertension, benign On: : Request CBC with auto diff (27370)Indication: Hypertension, benign On: : Request CALCIFIDIOL (26199) VIT D 25Indication: Vitamin D deficiency, unspecified On: : Request CALCIFIDIOL (93069) VIT D 25Indication: Vitamin D deficiency, unspecified On: :29 Request PT (Prothrobim Time) (28302)Indication: FDC current use of 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 therapy On: : Request Comments: standing order for prn checks URINALYSIS, W/ MICRO (72618)Indication: Diabetes mellitus type II, controlled On: : Request METABOLIC PANEL, COMPREHENSIVE (37235)Indication: Diabetes mellitus type II, controlled On: : Request LIPID PANEL (26559)Indication: Diabetes mellitus type II, controlled On: :28 Request CBC WITH MANUAL DIFF (74844)Indication: Diabetes mellitus type II, controlled On: :28 Request PT (Prothrobim Time) (40717)Indication: History of DVT (deep vein thrombosis) On: 53-Hcz-90283:04 Request Comments: standing order METABOLIC PANEL, COMPREHENSIVE (14366)Indication: Diabetes mellitus type II, controlled On: :20 Request LIPID PANEL (82587)Indication: Diabetes mellitus type II, controlled On: :20 Request CBC WITH MANUAL DIFF (62143)Indication: Diabetes mellitus type II, controlled On: 23-Bfx-747963:20 Request PT (Prothrobim Time) (60473)Indication: FDC current use of 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 therapy On: 43-Uey-555879:55 Request CALCIFIDIOL (86639) VIT D 25Indication: Vitamin D deficiency, unspecified On: 01-Btr-710704:35 Request MICROALBUMIN: CREATININE RATIO (32428) AND (20349)Indication: Diabetes mellitus type II, controlled On: 91-Cvp-768637:35 Request METABOLIC PANEL, COMPREHENSIVE (83837)Indication: Diabetes mellitus type II, controlled On: 67-Kbz-886728:35 Request LIPID PANEL (81233)Indication: Diabetes mellitus type II, controlled On: 66-Igj-473674:35 Request CBC WITH MANUAL DIFF (85359)Indication: Diabetes mellitus type II, controlled On: 70-Qpq-030344:35 Request CAMERON CULTURE-OTHER (02748)Indication: Cellulitis, umbilical On: 34-Lnd-816581:06 Request PARATHORMONE (51488)Indication: Hypercalcemia On: 8-Zym-324087:56 Request CALCIUM SERUM (21143)Indication: Hypercalcemia On: 4-Ywj-755510:56 Request Blood Glucose , Office (94491)Indication: Diabetes mellitus type II, controlled On: 3-Sgw-084896:26 Request Metabolic Panel, Basic (56673)Indication: Swelling of limb On: 07-Tqh-77712:39 Request Metabolic Panel, Basic (35281)Indication: Diabetes mellitus type II, controlled On: 28-Nvu-105805:48 Request MICROALBUMIN: CREATININE RATIO (41356) AND (45935)Indication: Diabetes mellitus type II, controlled On: 45-Xse-883278:48 Request CALCIFIDIOL (39971) VIT D 25Indication: Vitamin D deficiency, unspecified On: 14-Qck-254344:46 Request CALCIFIDIOL (32735) VIT D 25Indication: Vitamin D deficiency, unspecified On: 38-Epo-100657:42 Request MICROALBUMIN: CREATININE RATIO (14231) AND (19271)Indication: Diabetes mellitus type II, controlled On: 22-Hwx-350647:42 Request METABOLIC PANEL, COMPREHENSIVE (46438)Indication: Diabetes mellitus type II, controlled On: 32-Gty-944524:42 Request LIPID PANEL (32093)Indication: Diabetes mellitus type II, controlled On: 59-Gmw-914898:42 Request CBC WITH MANUAL DIFF (59723)Indication: Diabetes mellitus type II, controlled On: 55-Umd-980384:42 Request METABOLIC PANEL, COMPREHENSIVE (78099)Indication: Hypercholesteremia On: 1-Dhb-367696:08 Request LIPID PANEL (25119)Indication: Hypercholesteremia On: 9-Rkd-199392:08 Request CALCIFIDIOL (03246) VIT D 25Indication: Vitamin D deficiency, unspecified On: : Request Comments: in three months (approximately) CBC WITH MANUAL DIFF (95609)Indication: Diabetes mellitus type II, controlled On: Request Comments: in three months (approximately) MICROALBUMIN: CREATININE RATIO (26994) AND (23833)Indication: Diabetes mellitus type II, controlled On: : Request METABOLIC PANEL, COMPREHENSIVE (54361)Indication: Diabetes mellitus type II, controlled On: : Request LIPID PANEL (40721)Indication: Diabetes mellitus type II, controlled On: : Request PT (Prothrobim Time) (39998)Indication: Deep vein thrombosis, unspecified laterality On: Request Comments: monday CBC (Auto) (54717)Indication: Deep vein thrombosis, unspecified laterality On: Request Comments: monday PT (Prothrobim Time) (54542)Indication: Deep vein thrombosis, unspecified laterality On: 32 Request Comments: standing order OVA & PARASITE DIR SMEAR (83314)Indication: Diarrhea On: 34 Request OCCULT BLOOD FECES SCREEN (18607)Indication: Diarrhea On: 34 Request LEUKOCYTE COUNT, FECAL (18294)Indication: Diarrhea On: 34 Request C-DIFFICILE, STOOL (13332)Indication: Diarrhea On: Request CAMERON CULTURE-STOOL (07798)Indication: Diarrhea On: 34 Request CALCIFIDIOL (30260) VIT D 25Indication: Vitamin D deficiency, unspecified On: :09 Request MICROALBUMIN: CREATININE RATIO (82528) AND (01708)Indication: Diabetes mellitus type II, controlled On: : Request METABOLIC PANEL, COMPREHENSIVE (61182)Indication: Diabetes mellitus type II, controlled On: : Request LIPID PANEL (12884)Indication: Diabetes mellitus type II, controlled On: : Request CBC WITH MANUAL DIFF (04552)Indication: Diabetes mellitus type II, controlled On: 87-Ulm-744496:06 Request MICROALBUMIN: CREATININE RATIO (50119) AND (05511)Indication: Diabetes mellitus type II, controlled On: 7-Bld-408007:16 Request CALCIFIDIOL (05021) VIT D 25Indication: Vitamin D deficiency, unspecified On: 9-Bpg-545036:16 Request METABOLIC PANEL, COMPREHENSIVE (67252)Indication: Diabetes mellitus type II, controlled On: 6-Hev-268337:15 Request LIPID PANEL (82276)Indication: Hypercholesteremia On: 5-Xrb-618352:15 Request TSH (54550)Indication: Hypercholesteremia On: 05-Rgf-489048:58 Request Comments: hair thinning HEPATIC FUNCTION PANEL (99139)Indication: Hypercholesteremia On: 86-Ajd-657014:58 Request LIPID PANEL (91503)Indication: Hypercholesteremia On: 87-Ida-172944:58 Request HgA1C , Office (08970)Indication: Diabetes mellitus type II, controlled On: 43-Isd-868782:52 Request Methylmalonic acid, serum 99956Pkwxkslaih: Abnormal blood chemistry On: 58-Fhw-587478:26 Request CALCIFIDIOL (56060) VIT D 25Indication: Abnormal blood chemistry On: 96-Mhy-288188:26 Request Urine Protein Electrophoresis (UPEP) (25942)Indication: Abnormal blood chemistry On: 58-Qsd-421447:26 Request Serum Protein Electrophoresis (SPEP) (39742)Indication: Abnormal blood chemistry On: 49-Lvm-031611:26 Request LIPID PANEL (86938)Indication: Diabetes mellitus type II, controlled On: 67-Nfq-145623:22 Request METABOLIC PANEL, COMPREHENSIVE (03293)Indication: Diabetes mellitus type II, controlled On: 19-Vhe-155090:22 Request CBC WITH MANUAL DIFF (60388)Indication: Diabetes mellitus type II, controlled On: 05-Rhh-614306:22 Request Comments: in three months (approximately) MICROALBUMIN: CREATININE RATIO (04289) AND (74804)Indication: Diabetes mellitus type II, controlled On: 80-Lir-480890:22 Request Metabolic Panel, Comprehensive (47599)Indication: Hypercholesteremia On: 53-Pes-605916:45 Request Lipid Panel (59280)Indication: Hypercholesteremia On: 31-Vna-690819:45 Request HEPATIC FUNCTION PANEL (29726)Indication: Hypercholesteremia On: 04-Jqw-880064:12 Request Lipid Panel (49080)Indication: Hypercholesteremia On: 99-Rhj-856436:11 Request Comments: in three months (approximately) HgA1C , Office (88981)Indication: Diabetes mellitus type II, controlled On: 43-Kbg-643875:38 Request HEPATIC FUNCTION PANEL (35780)Indication: Hypercholesteremia On: :40 Request Lipid Panel (88403)Indication: Hypercholesteremia On: :40 Request MICROALBUMIN: CREATININE RATIO (45209) AND (62380)Indication: Diabetes mellitus type II, controlled On: :29 Request LIPID PANEL (54314)Indication: Diabetes mellitus type II, controlled On: :29 Request METABOLIC PANEL, COMPREHENSIVE (00433)Indication: Diabetes mellitus type II, controlled On: :29 Request CBC WITH MANUAL DIFF (75162)Indication: Diabetes mellitus type II, controlled On: 31-Ggu-804547:29 Request METABOLIC PANEL, COMPREHENSIVE (69140)Indication: Diabetes mellitus type II, controlled On: 91-Txg-035455:19 Request MICROALBUMIN: CREATININE RATIO (76465) AND (52620)Indication: Diabetes mellitus type II, controlled On: 08-Jll-283286:19 Request LIPID PANEL (25441)Indication: Diabetes mellitus type II, controlled On: 41-Ufd-931550:19 Request CBC WITH MANUAL DIFF (05280)Indication: Diabetes mellitus type II, controlled On: 64-Gsy-473026:19 Request FECAL OCCULT HGB ASSAY- tubes sent home (34381)Indication: Well woman exam with routine gynecological exam On: 36-Cte-668950:13 Request Thin prep Pap (57370)Indication: Well woman exam with routine gynecological exam On: 59-Owv-061055:13 Request URINE CAMERON CULTURE-HAIDER COL COUNT On: 50-Xsx-506288:10 Request (18969) HEPATIC FUNCTION PANEL (71697)Indication: Hypercholesteremia On: 00-Ylf-984671:33 Request Comments: in six months LIPID PANEL (05827)Indication: Hypercholesteremia On: 46-Szt-446609:33 Request Planned Encounters Medical; 1 Week FU - On: 25-Apr-2018 13:30 [facility] Nellypoptatum RODRIGUEZ Lesly Chatman Nellypoptatum RODRIGUEZ F[facility]; General Medical - On: 21-May-2018 10:45 [facility] Nellypoptatum RODRIGUEZ Lesly Chatman Nellypoptatum RODRIGUEZ Lesly Chatman Planned Procedures DEXA SCAN AXIAL SKELETON (92526)By: On: 19-Mar-2018 Intent Mihaela RODRIGUEZ Lesly Chatman Mihaela RODRIGUEZ Fátima SCREENING DIGITAL TOMOSYNTHESIS OF On: 19-Mar-2018 Intent BREAST (52530)By: Mihaela RODRIGUEZ FátimaCompa Chairez CNP Fátima SCREENING DIGITAL TOMOSYNTHESIS OF On: 12-Feb-2018 Intent BREAST (58512)By: Mihaela RODRIGUEZ Fátima Comments: after Mar 09 2018 Mihaela RODRIGUEZ Fátima DEXA SCAN AXIAL SKELETON (23834)By: On: 12-Feb-2018 Intent Mihaela RODRIGUEZ Lesly Chatman Mihaela RODRIGUEZ Fátima Radiology - Hip - RightBy: Mihaela On: 12-Feb-2018 Intent MICHAELLesly Mihaela RODRIGUEZ Lesly Chatman Flu Vaccine (Quadrivalent) 91937Nn: On: 12-Feb-2018 Intent Nellypoptatum RODRIGUEZ Lesly Chatman Nellypoptatum RODRIGUEZ Lesly Chatman Comments: Lot #[id number]-L dltd, IMDose prefilled syringegiven by: ELVIN ELIAS reviewed and ABN signed Kenalog 10 mg (J3301)By: Mihaela RODRIGUEZ, On: 08-Jan-2018 Intent FátimaCompa Chairez CNP Fátima DRAIN/INJECT INTERMED JOINT/BURSA On: 08-Jan-2018 Intent ()By: Lesly Chairez CNP Comments: Rt wrist injection with marcaine and kenalog 1/2cc MICHAEL Fátima Ultrasound - Abdomen CompleteBy: On: 06-Nov-2017 Intent Nellypoptatum RODRIGUEZ Lesly Chatman Mihaela RODRIGUEZ Fátima B 12 Injection, 1000 mcg (J3420)By: On: 24-Aug-2017 Intent Elgin Miller Comments: Vitamin b12 1000mcg injection lot:[id number]:10/2018R DELT IMpt tolerated well MSMITH,DIRECTOR PROCESS IMPROVEMENT B 12 Injection, 1000 mcg (J3420)By: On: 17-Aug-2017 Intent Lesly Chairez CNP, CNP, Mary E Comments: vitamin b12 1000mcg injectionlot: [id number]: 10/2018L DELT IMpt tolerated wellAD DIRECTOR PROCESS IMPROVEMENT B 12 Injection, 1000 mcg (J3420)By: On: 07-Aug-2017 Intent Visit, Nurse Comments: Lot #[id number]-10/2018Site- Left dtld, IMDose-prefilled syringegiven by:ELVIN Woo signed B 12 Injection, 1000 mcg (J3420)By: On: 02-Aug-2017 Intent Lesly Chairez CNP, CNP, Mary E Flu Vaccine (Quadrivalent) 89904Cx: On: 13-Mar-2017 Intent Lesly Chairez CNP, CNP, Mary E Comments: InfluenzaLot #[id number]-L dltd, IMDose prefilled syringeVIS and ABN signedgiven by:DAVID de paz MAMMOGRAM BREAST BILATERAL On: 27-Feb-2017 Intent SCREENING DIGITAL (86730)By: Mihaela RODRIGUEZ Lesly Chatman Nellyfawn MICHAEL Lesly Chatman MRI OF LUMBAR SPINE WITH AND On: 28-Nov-2016 Intent WITHOUT CONTRAST (21884)By: Nellyfawn RODRIGUEZ Lesly Chairez CNP Lesly Chatman Radiology - Lumbar SpineBy: Mihaela On: 19-Sep-2016 Intent Lesly RODRIGUEZ CNP, Mary E Radiology - Humerus - RightBy: On: 08-Apr-2016 Intent Lesly Chairez CNP, CNP, Mary E Solu -Medrol Injection, 125 mg On: 08-Apr-2016 Intent (J2930)By: Mihaela RODRIGUEZ Lesly Chairez CNP Lesly Chatman Solu- Medrol Injection, 125mg On: 24-Mar-2016 Intent (J2930)By: Wendy June DO Comments: Lot:[id number]:10/2018Dose:125mgRoute:imSite:r hipGiven By:Gaurang signed Flu Vaccine (Quadrivalent) 29202Hj: On: 29-Feb-2016 Intent Visit, Nurse Comments: Lot #[id number]/30/17ite-L dltd, IMDose prefilled syringegiven by:ELVIN Woo and ABN signed BILATERAL MAMMOGRAMS (65133)By: On: 15-Feb-2016 Intent Lesly Chairez CNP, CNP Lesly Chatman Kenalog Injection, 10 mgm On: 18-Jan-2016 Intent (J3301)By: Mihaela RODRIGUEZ Lesly Chairez CNP Lesly Chatman DRAIN/INJECT SMALL JOINT OR BURSA On: 18-Jan-2016 Intent (33930)By: Mihaela RODRIGUEZ Lesly Chairez CNP Lesly Chatman Radiology - Lumbar SpineBy: Nellyesa On: 07-Sep-2015 Intent Lesly RODRIGUEZ CNP, Mary E Toradol Injection, 30 mg On: 07-Sep-2015 Intent (J1885)By: Mihaela RODRIGUEZ Lesly Chairez Comments: Lot:[id number]:08/03/16Dose:30mgRoute:imSite:r hipGiven By:JUNG signed Lesly RODRIGUEZ MRI - Shoulder(s) - RightBy: Mihaela On: 03-Aug-2015 Intent Lesly RODRIGUEZ CNP, Mary E Radiology - Shoulder - RightBy: On: 03-Aug-2015 Intent Lesly Chairez CNP, CNP Lesly Chatman ADMINISTRATION OF INFLUENZA VIRUS On: 02-Mar-2015 Intent VACCINE (G0008)By: Akosua Enrique MD Flu Vaccine (Quadrivalent) 61032Mi: On: 02-Mar-2015 Intent Akosua Enrique MD Comments: Lot #:[id number] date:Amount given:0.5mlRoute: IMSite given:L DltdGiven by: Jung and ANGIE signed Quad Flu Wax CurettesBy: Akosua Enrique MD On: 27-Nov-2014 Intent Ear Irrigation (01025)By: Elana On: 27-Nov-2014 Intent Akosua BAUTISTA MAMMOGRAM, SCREENING, BOTH BREAST On: 27-Nov-2014 Intent (16243)By: Akosua Enrique MD Prevnar 13 (47150)By: Maryam HERNANDEZ, On: 28-Apr-2014 Intent Maria T Comments: [id number] arm, IMAS ADMINISTRATION OF INFLUENZA VIRUS On: 31-Mar-2014 Intent VACCINE (G0008)By: Akosua Enrique MD Comments: [id number] syringeL Dltd, IMAS, LPNABN and VIS signed M FLU VAC, SPLIT, >3 YEARS, INTRAMUSC On: 31-Mar-2014 Intent (60731)By: Maria T Francisco LPN BILATERAL MAMMOGRAMS (46847)By: On: 06-Feb-2014 Intent Akosua Enrique MD MAMMOGRAM, SCREENING, BOTH BREAST On: 23-Dec-2013 Intent (95215)By: Akosua Enrique MD Eprescribed prescriptions On: 29-Apr-2013 Intent (G8553)By: Akosua Enrique MD Eprescribed prescriptions On: 08-Apr-2013 Intent (G8553)By: Akosua Enrique MD DXA, BONE DENSITY, AXIAL SKELETON On: 08-Apr-2013 Intent (55098)By: Akosua Enrique MD Comments: postmenapausal FLU VAC, SPLIT, >3 YEARS, INTRAMUSC On: 08-Mar-2013 Intent (71833)By: Wendy June DO Comments: Lot:[id number]:6.14Amt:0.5mlRoute:IMSite: L DltdGiven By: DAVID BookerVIS signed ADMINISTRATION OF INFLUENZA VIRUS On: 08-Mar-2013 Intent VACCINE (G0008)By: Wendy June DO Rocephon Injection, 2 Gm On: 28-Feb-2013 Intent (J0696)By: Wnedy June DO Comments: im lt and rt hip 2.5 ml each [id number] exp 09/04/15 Eprescribed prescriptions On: 07-Feb-2013 Intent (G8553)By: Randa Aldana LPN Eprescribed prescriptions On: 24-Dec-2012 Intent (G8553)By: Lesly Chairez CNP, CNP, Mary E MAMMOGRAM, SCREENING, BOTH BREASTS On: 08-Oct-2012 Intent (63003)By: Akosua Enrique MD Eprescribed prescriptions On: 08-Oct-2012 [...] SPLIT, >3 YEARS, INTRAMUSC On: 20-Feb-2012 Intent (77070)By: Myrna Townsend Comments: Lot:[id number]:6.30.13Dose:prefilledRoute:IMSite:L DltdGiven By:JUNG signed ADMINISTRATION OF INFLUENZA VIRUS On: 20-Feb-2012 Intent VACCINE (G0008)By: Myrna Townsend ADMINISTRATION OF INFLUENZA VIRUS On: 20-Feb-2012 Intent VACCINE (G0008)By: MATT Maloney FLU VAC, SPLIT, >3 YEARS, INTRAMUSC On: 20-Feb-2012 Intent (70131)By: MATT Maloney MAMMOGRAM, SCREENING, BOTH BREASTS On: 24-Jan-2012 Intent (19610)By: Akosua Enrique MD Ultrasound - AortaBy: Elana BAUTISTA, On: 14-Nov-2011 Intent Akosua Lackey Kenalog Injection, 10 mgm On: 24-Oct-2011 Intent (J3301)By: Akosua Enrique MD Kenalog Injection, 10 mgm On: 24-Oct-2011 Intent (J3301)By: Akosua Enrique MD Kenalog Injection, 10 mgm On: 24-Oct-2011 Intent (J3301)By: Akosua Enrique MD Kenalog Injection, 10 mgm On: 24-Oct-2011 Intent (J3301)By: Akosua Enrique MD EKG (92474)By: Akosua Enrique MD On: 08-Aug-2011 Intent Eprescribed prescriptions On: 08-Aug-2011 Intent (G8553)By: Akosua Enrique MD INFUSION, NORMAL SALINE SOLUTION , On: 05-Jul-2011 Intent 250 CC (J7050)By: Mihaela RODRIGUEZ, Fátima Cifawn SOLAR ENERGY TECHNICIAN, Fátima FLU VAC, SPLIT, >3 YEARS, INTRAMUSC On: 02-May-2011 Intent (63748)By: Akosua Enrique MD Comments: had done ADMINISTRATION OF INFLUENZA VIRUS On: 28-Feb-2011 Intent VACCINE (G0008)By: Akosua Enrique MD FLU VAC, SPLIT, >3 YEARS, INTRAMUSC On: 28-Feb-2011 Intent (65543)By: Akosua Enrique MD Eprescribed prescriptions On: 28-Feb-2011 [...] - Small Bowel Series On: 06-Jan-2011 Intent (89487)By: Akosua Enrique MD EKG (32408)By: Akosua Enrique MD On: 28-Jun-2010 Intent MAMMOGRAM, SCREENING, BOTH BREASTS On: 28-Jun-2010 Intent (77497)By: Akosua Enrique MD FLU VAC, SPLIT, >3 YEARS, INTRAMUSC On: 29-Mar-2010 Intent (15687)By: Ana Candelario Comments: Lot:[id number] 4pExp:09/2010Dose:0.5mlRoute:IMSite:Left Deltoid Given by: WALESKA Valerio ADMINISTRATION OF INFLUENZA VIRUS On: 29-Mar-2010 Intent VACCINE (G0008)By: Andree Ana EKG ([id number])By: Akosua Enrique MD On: 24-Apr-2009 Intent IMMUNIZ ADMNIN, 1 VAC, SNGL/COMBO On: 11-Mar-2009 Intent ([id number])By: Ladonna Briggs RN FLU VAC, SPLIT, >3 YEARS, INTRAMUSC On: 11-Mar-2009 Intent ([id number])By: Ladonna Briggs RN Breast Diagnostic - RightBy: On: 23-Dec-2008 Intent Akosua Enrique MD Breast Screening - LeftBy: Elana On: 23-Dec-2008 Intent Akosua BAUTISTA Breast Diagnostic - RightBy: On: 15-Jul-2008 Intent Akosua Enrique MD Comments: 11-11 FLU VAC, SPLIT, >3 YEARS, INTRAMUSC On: 25-Mar-2008 Intent ([id number])By: Alexa Metz ADMINISTRATION OF INFLUENZA VIRUS On: 25-Mar-2008 Intent VACCINE (G0008)By: Alexa Metz EKG ([id number])By: Akosua Enrique MD On: 04-Mar-2008 Intent MAMMOGRAM, SCREENING, BOTH BREASTS On: 04-Mar-2008 Intent ([id number])By: Akosua Enrique MD Venous Doppler - BothBy: Elana On: 14-Aug-2007 Intent Akosua BAUTISTA Comments: lower legs EKG ([id number])By: Akosua Enrique MD On: 15-Feb-2007 Intent Bone Density StudyBy: Jovan, On: 28-Dec-2006 Intent Radna MAMMOGRAM, SCREENING, BOTH BREASTS On: 28-Dec-2006 Intent ([id number])By: Akosua Enrique MD SPECIMEN HANDLING/TRANSPORT On: 29-Sep-2006 Intent ([id number])By: Akosua Enrique MD FLU VAC, SPLIT, >3 YEARS, INTRAMUSC On: 04-Apr-2006 Intent ([id number])By: Alexa Joseph ADMINISTRATION OF INFLUENZA VIRUS On: 04-Apr-2006 Intent VACCINE (G0008)By: Alexa Joseph FLU VAC, SPLIT, >3 YEARS, INTRAMUSC On: 28-Mar-2006 Intent ([id number])By: Akosua Enrique MD Planned Medications INFUSION, NORMAL SALINE SOLUTION , 250 CC Ordered: 05-Jul-2011 Pending Ciesa SOLAR ENERGY TECHNICIAN, Fátima Ciesa SOLAR ENERGY TECHNICIAN, Fátima INJECTION, CEFTRIAXONE SODIUM, PER 250 MG Ordered: 28-Feb-2013 Pending Shaylee DO, Wendy INJECTION, KETOROLAC TROMETHAMINE, PER 15 MG Ordered: 07-Sep-2015 Pending Ciesa SOLAR ENERGY TECHNICIAN, Fátima Ciesa SOLAR ENERGY TECHNICIAN, Fátima INJECTION, METHYLPREDNISOLONE SODIUM SUCCINATE, UP TO 125 MG Ordered: 08-Apr-2016 Pending Ciesa SOLAR ENERGY TECHNICIAN, Fátima Ciesa SOLAR ENERGY TECHNICIAN, Fátima INJECTION, METHYLPREDNISOLONE SODIUM SUCCINATE, UP TO 125 MG Ordered: 24-Mar-2016 Pending Shaylee DO, Wendy INJECTION, TRIAMCINOLONE ACETONIDE, NOT OTHERWISE SPECIFIED, 10 MG Ordered: 18-Jan-2011 Pending Akosua Enrique MD INJECTION, TRIAMCINOLONE ACETONIDE, NOT OTHERWISE SPECIFIED, 10 MG Ordered: 18-Jan-2016 Pending Ciesa SOLAR ENERGY TECHNICIAN, Fátima Ciesa SOLAR ENERGY TECHNICIAN, Fátima INJECTION, TRIAMCINOLONE ACETONIDE, NOT OTHERWISE SPECIFIED, [...] OTHERWISE SPECIFIED, 10 MG Ordered: 08-Jan-2018 Pending CiLesly augustine CNP, CNP Lesly Chatman Vitamin B-12 1000 MCG/ML Injection Solution Ordered: 24-Aug-2017 Pending Elgin Miller Vitamin B-12 1000 MCG/ML Injection Solution Ordered: 02-Aug-2017 Pending RyanLesly rodriguez CNP, CNP, Fátima Vitamin B-12 1000 MCG/ML Injection Solution Ordered: 07-Aug-2017 Pending Nurse Damien Vitamin B-12 1000 MCG/ML Injection Solution Ordered: 17-Aug-2017 Pending RyanLesly rodriguez CNP Ryantatum RODRIGUEZ, Lesly Chatman Instructions Name Dates Details Nonsmoker : How [...] thrombosis) : DISCONTINUED - PT (PROTHROMBIN TIME) (39120) Indication: History of DVT (deep vein thrombosis) FDC current use of 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 therapy : DISCONTINUED - PT (PROTHROMBIN TIME) (66594) 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 The patient huang s noticed lack of energy and thinking most people are better off than them. Other providers contributing to the patient's care are associate material handler (dr. martinez) and director of restaurant operations (dr. roper). 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 The patient has noticed lack of energy. Other providers contributing to the patient's care are gastrologist (Dr. Oates ) and other: (Opthalm: Dr. Hebert ).Encounter Diagnosis: Encounter for Medicare annual wellness exam, Venous (peripheral) insufficiency, BMI 33.0-33.9,adult, Diabetes mellitus type II, controlled, Degenerative disc disease, Coronary artery disease, FDC current use of 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 therapy, Encounter for [...] Woman Exam , Medicare (V76.2) (Renamed from [facility] Woman Exam , Medicare (V76.2, V72.31)), arthritis,unspecified [...] providers contributing to the patient's care are associate material handler (Dr. Martinez) and other: (Glaucoma screens by [...] Well Woman Exam , Medicare (V76.2, V72.31)), Lymphedema [...] patient does not have durable power of tax attorney o r living will. The patient has noticed lack of energy. Other providers contributing to the patient's care are director of restaurant operations.Encounter Diagnosis: Annual Medicare Physical (V70.0), Itching (698.9) [...] Well Woman Exam , Medicare (V76.2, V72.31)), GLAUCOMA [...] Nutrition: balanced diet and supplemental vitamins. The in dical issues the patient is following up for include blood sugar issues, cardiac issues, gastric reflux, high blood pressure, high cholesterol and other (chronic dermatitis, DDD, IBS, venous insuff., vitamin d def., glaucoma, hx. DVT, obesity ). Encounter Diagnosis: Diabetes, Type II, controlled (250.00), Vitamin D deficiency, unspecified (268.9), Well Woman Exam , Medicare (V76.2) (Renamed from [facility] Woman Exam , Medicare (V76.2, V72.31)), Irritable [...] Swelling of limb (729.81), Sleep disorder (780.50), [facility] Comprehensive Internal Medicine Office Visit On: [...] itching. Note for Rash: was at a familty reunion and noticed back itchingEncounter Diagnosis: Rash [...] Comprehensive Internal Medicine End: 26-Feb-2006 20:01 Payers MedicareCASS/Massiel Soares; a guarantor
--- OUTSIDE RECORDS SUMMARY | 2018-06-12 22:50 | XMS RPT_ITS | Continuity of Care Document ---
:1940 Author Organization [facility] Address [facility] 2 [place] [address] Phone Care Team Providers Name Role Phone Lesly Chairez CNP Unavailable [facility] Unavailable Edin BAUTISTA, Balwinder Tam Unavailable Matt Phelps Unavailable Elana BAUTISTA, Akosua Lackey Unavailable Dr. Prashant Hoffman Unavailable Liyah Diane Unavailable Dr. Shayla Goodman Unavailable Dr. 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 current use of 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 therapy (Z79.01, V58.61) [...] 02-Jun-2014 Active Comments:True Test Strips DX: 250.00NPI: [id number] [place] 300 MG Oral Capsule 1 qd (300 [...] for 0 days Refills: 0 Ordered:17-Sep-2015 MATT Mlaoney End : 17-Sep-2015 Inactive BACITRACIN ZINC, 500UNIT/GM [...] days Quantity: 30 {Tablet} Refills: 6 Ordered:06-Nov-2017 Lesyl Chairez CNP, CNP Fátima Start : 31-Jul-2017 [...] : 12-Nov-2010 End : 20-Feb-2012 Inactive Nystatin 756281 UNIT/GM External Powder uad Powder bid to [...] : 19-Mar-2012 End : 21-May-2012 Inactive ZOSTAVAX, 17774VWM/0.65ML (Subcutaneous Solution Reconstituted) 1 For Solution once SC for 0 days Quantity: 1 {For_Solution} Refills: 0 Ordered:29-Apr-2013 MATT Maloney Start : 08-Apr-2013 End : 29-Apr-2013 Inactive Cefadroxil 500 MG Oral Capsule 1 (one) Capsule bid for 7 days Quantity: 14 {Capsule} Refills: 0 Ordered:12-Jan-2017 Shaylee LONG Wendy Start : 12-Jan-2017 End : 12-Jan-2017 Discontinued ERGOCALCIFEROL, 09367IDAU (Oral Capsule) 1 Capsule every 2 months [...] and rec. multpile units PRBC's @ [facility] 09-18 Status: Inactive as of 13-Mar-2017 [...] Density Study Result: Comments: See Note; NOTES: [facility] Imaging Services [address] [place] [address] Dexa Bone Density Study MR#: [id number] Acct: [id number] Name: BRISSA SOARES Rep #: [id number] : 1940 F 77 From: Sergio Perea MD PCP: Lesly Chairez NP Status: REG CLI Study: Dexa Bone Density Study Date of Exam: 03/22/18 Exam# [id number] Ordering Dr: Lesly Chairez NP-Parul STUDY: D [...] Sergio Perea MD at 15:16 EDT Tel [phone], Service support , CC: Lesly Chairez NP Bellows Tester: Signed 22-Mar-2018 SCREENING MAMM (CAD), BILAT Result: Comments: See Note; NOTES: [facility] Imaging Services [address] [place] [address] SCREENING MAMM (CAD), BILAT MR#: [id number] Acct: [id number] Name: BRISSA SOARES Rep #: [id number] : 1940 F 77 From: Sergio Perea MD PCP: Lesly Chairez NP Status: REG CLI Study: SCREENING MAMM (CAD), BILAT Date of Exam: 03/22/18 Exam# [id number] Ordering Dr: Lesly Chairez CLASSIFICATION CASE MANAGER-C MAMMOGRAPHY - BILATERAL SCREENING REASON FOR EXAM: [...] delay biopsy of a clinically suspicious abnormality. [id number] Electronically Signed: Sergio Perea MD at 10:28 EDT Tel [phone], Service support , CC: Lesly Chairez NP Bellows Tester: Signed 12-Feb-2018 HIP, UNI W/ Pelvis 2-3 Views Result: Comments: See Note; NOTES: [facility] Imaging Services [address] [place] [address] HIP, UNI W/ Pelvis 2-3 Views MR#: [id number] Acct: [id number] Name: BRISSA SOARES Rep # : [id number] : 1940 F 77 From: Justo Kennedy MD PCP: Lesly Chairez NP Status: REG CLI Study: HIP, UNI W/ Pelvis 2-3 Views Date of Exam: 02/12/18 Exam# [id number] Ordering Dr: Ciesa, Lesly STUD Y: X-RAY [...] Service support , CC: Lesly Chairez NP Bellows Tester: Signed 16-Nov-2017 Abdomen Complete Result: Comments: See Note; NOTES: [facility] Imaging Services [address] [place] [address] Abdomen Complete MR#: [id number] Acct: [id number] Name: BRISSA SOARES Rep #: [id number] : 1940 F 77 From: Yulissa Reilly MD PCP: Lesly Chairez NP Status: REG CLI Study: Abdomen Complete Date of Exam: 11/16/17 Exam# [id number] Ordering Dr: Lesly Chairez STUDY: ABDOMINAL ULTRASOUND [...] Service support , CC: Lesly Chairez NP Bellows Tester: Signed 22-Sep-2017 Cardiology Visit Report Result: Comments: See Note; NOTES: [facility] [address] [place] [address]. [address] [place] [address] OFFICE VISIT Date of Service: 09/21/17 MR#: [id number] Acct: [id number] Name: BRISSA SOARES Rep #: [id number] : 1940 Provider: Serenity Villarreal Age/Sex: 77/F Location: [facility] Status: Signed HPI HPI Details: [...] 152/68 Intake Visit Reasons: 6 M FU Monotype Caster Required: No Accompanied by: none Is patient in pain?: No Allerg ies atorvastatin calcium [From Lipitor] Allergy (Verified 09/21/17 11:28) Unknown ezetimibe [From Zetia] Allergy (Verified 09/21/17 11:28) Unknown lisinopril Allergy (Verified 09/21/17 11:28) Unknown n eomycin [Neomycin] Allergy (Verified 09/21/17 11:28) Unknown neomycin sulfate [From Neosporin (set-lkz-lzjsh)] Allergy (Verified 09/21/17 11:28) Itching polymyxin B [...] History Palpitations (Chronic) 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 transplanted heart: [place] heart Essential hypertension I10 Hypertension type: essential hypertension Pure hypercholesterolemia E78.00; E78.0 Hy perlipidemia type: pure hypercholesterolemia Coding Level of Care Code Off vis,est,level 3 Diagnoses Atherosclerosis of [place] coronary artery of [place] heart without angina pectoris I25.10 [place] vs . transplanted heart: [place] heart Essential hypertension I10 Hypertension type: essential hypertension Pure hypercholesterolemia E78.00; E78.0 Hyperlipidemia type: pure hypercholesterolemia 09/22/17 0925 <Electronically signed by Serenity MAGAÑA> Date Serenity MAGAÑA Cosigner Signature: Date (if applicable) CC: Lesly Chairez NP 20-Mar-2017 Wound Ctr History AND Physical Result: Comments: See Note; NOTES: 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 She has been treated at the [facility] wound healing center in recent weeks for [...] 11/15/15 15:31) Unknown neomycin sulfate [From Neosporin (cxg-lkt-dmdxr)] Allergy (Verified 11/15/15 15:31) Itching polymyxin B [...] Date Recorded By Document 03/20/17 14:23 DV [id number] 03/05 11/19 14:25 DV Pain Scale: 0-10 [...] Date Recorded By Document 03/20/17 14:23 DV [id number] 03/20/17 14:25 DV Pain Scale: 0-10 Numeric [...] (CAD), BILAT Result: Comments: See Note; NOTES: [facility] Imaging Services [address] [place] [address] SCREENING MAMM (CAD), BILAT MR#: [id number] Acct: [id number] Name: BRISSA SOARES Rep #: [id number] : 1940 F 76 From: Jessica Gonzalez MD PCP: Lesly Chairez Status: REG CLI Study: SCREENING MAMM (CAD), BILAT Date of Exam: 03/09/17 Exam# [id number] Ordering Dr: Lesly Chairez MAMMOGRAPHY - BILATERAL [...] delay biopsy of a clinically suspicious abnormality. [id number] Electronically Signed: Jessica Gonzalez MD at 15:29 EDT Tel , Service support , Fax CC: Lesly Chairez Bellows Tester: Signed 06-Mar-2017 Wound Ctr History AND Physical Result: Comments: See Note; NOTES: 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 Curr ent Visit: No Code(s): I70.249 - ATHSCL SLEETMUTE ARTERIES OF LEFT LEG W ULCERATION OF UNSP SITE (2) Cellulitis of left leg Status: Resolved Current Visit: No Code(s): L03.116 - CELLULITIS OF LEFT LOWER L IMB (3) Failure to thrive Status: Acute Current Visit: No Code(s): BLR3410 - (4) Generalized weakness Status: Acute Current [...] She has been garrett juan at the [facility] wound healing center in recent weeks for [...] 11/15/15 15:31) Unknown neomycin sulfate [From Neosporin (cws-xft-csmoc)] Allergy (Verified 11/15/15 15:31) Itching polymyxin B [...] Date Recorded By Document 03/06/17 13:13 IZZY [id number] 03/06/17 13:22 IZZY Wound Center Nurse 1 [...] Date Recorded By Document 03/06/17 14:12 DV [id number] 03/06/17 14:13 DV Pain Scale: 0-10 Numeric [...] Recorded Date Recorded By Document 14:12 DV [id number] 03/06/17 14:13 DV Pain Scale: 0-10 Numeric [...] AND Physical Result: Comments: See Note; NOTES: [facility] Wound Healing Center [address] [place] [address] Wound Ctr History AND Physical 02/27/17 1412 MR#: [id number] Acct: [id number] Name: BRISSA WHITE Rep #: [id number] : 1940 76 From: Bao Brothers MD [...] extremities. She has been treated at the [facility] wound healing center in recent weeks for an ulceration in the left medial supramalleolar area. With a combination of conservative treatment measures, including use of Milena and Tubigrip's, the [facility] er healed. The ulceration is now [...] 11/15/15 15:31) Unknown neomycin sulfate [From Neosporin (qyr-rrz-lokto)] Allergy (Verified 11/15/15 15:31) Itching polymyxin B [...] Recorded Date Recorded By Document 02/27/17 13:25 [facility] [id number] 02/27/17 13:34 [facility] Wound Center Nurse 1 [Edema Assessment] -Lower Limb Edema Present Yes -Right Calf (cm) 39.7 -Right Ankle (cm) 26 -Left Calf (cm) 41 -Left Ankle (cm) 26.5 WC - Nurse 2 - General Ulcer CM Notes Start: 02/03/17 13:02 Freq: Status: Active Activity Type Activity Date Activit y User E-Sign Co-Sign Detail Recorded Client Recorded Date Recorded By Document 02/27/17 13:50 DV [id number] 02/27/17 13:50 DV Pain Scale: 0-10 Numeric [...] Recor ded By Document 02/27/17 13:50 DV [id number] 02/27/17 13:50 DV Pain Scale: 0-10 Numeric [...] AND Physical Result: Comments: See Note; NOTES: [facility] Wound Healing Center [address] [place] [address] Wound Ctr History AND Physical 02/20/17 1309 MR#: [id number] Acct: [id number] Name: BRISSA WHITE Rep #: [id number] : 1940 76 From: Bao Brothers MD [...] extremities. 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) Hyperpigmentation of skin (Chronic) Leg swelling [...] 11/15/15 15:31) Unknown neomycin sulfate [From Neosporin (iab-jrw-dfdqt)] Allergy (Verified 11/15/15 15:31) Itching polymyxin B [...] Recorded Date Recorded By Document 02/20/17 12:18 [facility] [id number] 02/20/17 12:21 [facility] - Nurse 2 - General Ulcer CM Notes Start: 02/03/17 13:02 Freq: Status: Active Activity Type Activity Date Activity User E-Sign Co-Sign Detail Recorded Client Recorded Date Recorded By Document 02/20/17 12:53 DV [id number] 02/20/17 13:04 DV Pain Scale: 0-10 Numeric [...] Date Recorded By Document 02/20/17 12:53 DV [id number] 02/20/17 13:04 DV Pain Scale: 0-10 Nu [...] [facility]. 02/20/17 1330 <Electronically signed by Bao Brothers MD> Date Bao Brothers MD CC: Signed 17-Feb-2017 Lower Ext Arterial Study Result: Comments: See Note; NOTES: [facility] Cardiovascular Services [address] [place] [address] 02/17/17 1612 MR#: [id number] Acct: [id number] Name: BRISSA SOARES Rep #: [id number] : 1940 76 From: Bao Brothers MD Attending Dr: Andre Gutierrez MD Status: DIS RCR Ordering Dr: Date: 02/17/17 Location: [facility] Sex: F C Admitted: Arterial [...] Nellypoptatum Date Dictated: 02/17/171611 Date Transcribed: 02/17/171611 Bellows Tester: PASCALE Signed 14-Feb-2017 Venous Duplex Lower Extremity Result: Comments: See Note; NOTES: [facility] Cardiovascular Services [address] [place] [address] Venous Duplex US - Jasson Extrem 02/14/17 1252 MR#: [id number] Acct: [id number] Name: BRISSA SOARES Rep #: [id number] : 1940 76 From: Bao Brothers MD [...] was called and/or faxed posterior calf. to [facility]. Interpret ation Summary Deep veins [...] Dictated: 02/14/17 1252 Date Transcribed: 02/14/17 1529 Bellows Tester: Signed 07-Feb-2017 Wound Ctr History AND Physical Result: Comments: See Note; NOTES: [facility] Wound Healing Center [address] [place] [address] Wound Ctr History AND Physical 02/07/17 1617 MR#: [id number] Acct: [id number] Name: BRISSA WHITE Rep #: [id number] : 1940 76 From: Paul Srinivasan DPM [...] 11/15/15 15:31) Unknown neomycin sulfate [From Neosporin (hvb-zye-cluic)] Allergy (Verified 11/15/15 15:31) Itching polymyxin B [...] 15:30 02/07/17 15:30 General: Alert, Oriented x3, Cell Technician perative, No apparent distress HEENT: Atraumatic, Normocephalic [...] Date Recorde d By Document 02/07/17 15:30 [id number] 02/07/17 15:32 Wound Center Nurse 1 WC - Nurse 2 - General Ulcer CM Notes Start: 02/03/17 13:02 Freq: Status: Active Activity Type Activity Date Activity User E-Sign Co-Sign Detail Recorded Client Recorded Date Recorded By Document 02/07/17 16:11 [id number] 02/07/17 16:12 Wound Center Nurse 2 [Procedure/Treatment] [...] Date Recorded By Document 02/07/17 16:11 IZZY [id number] 02/07/17 16:12 IZZY [facility] Nurse 2 [...] pressure ulcer, venous incompetence, arterial insufficiency Plan: CLASSIFICATION CASE MANAGER exam. SQ/excision al debridement as above. Cont [...] pain, chest pain, SOB and go to [facility] ED with these. 02/07/17 0987 <Electronically signed by Paul Srinivasan DPM> Date Paul Srinivasan DPM CC: Signed 26-Jan-2017 Wound Ctr History AND Physical Result: Comments: See Note; NOTES: 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 She developed a wound on the [...] 11/15/15 15:31) Unknown neomycin sulfate [From Neosporin (qai-eku-misor)] Allergy (Verified 15:31) Itching polymyxin B [Polymyxin [...] follow up one week and prn, 01/26/17 3445 <Electronically signed by Andre Gutierrez MD> Date Andre Brenda BAUTISTA CC: Signed 16-Jan-2017 Emergency Department Summary Result: Comments: See Note; NOTES: [facility] Medical Records Department [address] [place] [address] Emergency Department Summary 01/15/17 1100 MR#: [id number] Acct: [id number] Name: BRISSA SOARES Rep #: [id number] : 1940 76 From: Jackson Marshall MD [...] your Primary Care Provider. Call [facility] ([phone]) or report to [facility] Emergency Room. Call 911 if necessary. 01/16/17 0747 <Electronically signed by Jackson Marshall MD> Date Jackson Marshall MD Cosign er Signature (If Indicated): Date CC: Lesly Chairez 09-Dec-2016 Spine Lumbar (Routine) Result: Comments: See Note; NOTES: [facility] Imaging Services [address] [place] [address] Verdana 4d Spine Lumbar (Routine) MR#: [id number] Acct: [id number] Name: BARTBRISSA M Rep #: [id number] : 1940 F 76 From: Isidro Cole MD PCP: Lesly Chairez Status: REG CLI Study: Spine Lumbar (Routine) Date of Exam: 12/09/16 Exam# [id number] Ordering Dr: Lesly Chairez UDY: MRI LUMBAR [...] 7:17 EDT Tel , Service support [phone], CC: Lesly Chairez Bellows Tester: Signed 23-Sep-2016 L/S Spine Min 4 Views Result: Comments: See Note; NOTES: [facility] Imaging Services [facility] [address] Verdana 4d L/S Spine Min 4 Views MR#: [id number] Acct: [id number] Name: BRISSA SOARES Franky ep #: [id number] : 1940 F 76 From: Alisia Kinsey PCP: Lesly Chairez Status: REG CLI Study: L/S Spine Min 4 Views Date of Exam: 09/23/16 Exam# [id number] Ordering Dr: Lesly Chairez STUDY: X-RAY - [...] , Service support , CC: Lesly Chairez Bellows Tester: Signed 08-Apr-2016 Humerus min 2 Views Result: Comments: See Note; NOTES: [facility] Imaging Services [address] [place] [address] Verdana 4d Humerus min 2 Views MR#: [id number] Acct: [id number] Name: BRISSA SOARES Re p #: [id number] : 1940 F 75 From: Sergio Perea MD PCP: Lesly Chairez Status: REG CLI Study: Humerus min 2 Views Date of Exam: 04/08/16 Exam# [id number] Ordering Dr: Lesly Chairez STUDY: X-R AY [...] Sergio Perea MD at 15:05 EDT Tel [phone], Service support [phone], CC: Lesly Chairez Bellows Tester: Signed 29-Feb-2016 Bilat Scrn Digital AND CAD Result: Comments: See Note; NOTES: [facility] Imaging Services [address] [place] [address] Verdana 4d Bilat Scrn Digital AND CAD MR#: [id number] Acct: [id number] Name: FER SOARES Rep #: [id number] : 1940 F 75 From: Sergio Perea MD PCP: Lesly Chairez Status: REG CLI Study: Bilat Scrn Digital AND CAD Date of Exam: 02/29/16 Exam# [id number] Ordering Dr: Lesly Chairez MAMMOGRAPHY - BILATERAL [...] delay biopsy of a clinically suspicious abnormality. [id number] Electronically Signed: Sergio Perea MD at 11:19 EDT Tel [phone], Service support [phone], CC: Lesly Chairez Bellows Tester: Signed 25-Dec-2015 Gastric Emptying Study Result: Comments: See Note; NOTES: [facility] Imaging Services [address] [place] [address] Verdana 4d Gastric Emptying Study MR#: [id number] Acct: [id number] Name: BRISSA WHITE Rep #: [id number] : 1940 F 75 From: Jhon Carreno DO PCP: Akosua Enrique MD Status: REG CLI Study: Gastric Emptying Study Date of Exam: 12/25/15 Exam# [id number] Ordering Dr: Jonathan Blanco MD CLINICAL: 75-year-old [...] at 7:59 EDT Tel , Service support [phone], CC: Akosua Enrique MD; Jonathan Oates Bellows Tester: Signed 15-Nov-2015 Emergency Department Summary Result: Comments: See Note; NOTES: [facility] Medical Records Department [address] [place] [address] Emergency Department Summary MR#: [id number] Acct: [id number] Name: BRISSA SOARES Rep #: [id number] : 1940 75 From: Eladio Mai MD [...] C: Akosua Oates MD T: NTS JOB: [id number] 11/15/152037 <Electronically signed by Eladio Mai MD> Date Eladio Mai MD Cosigner Signature (If Indicated): Date __ CC: Akosua Enrique MD; Jonathan Oates Date Dictated: 11/15/151620 Date Transcribed: 11/15/151620 Bellows Tester: Signed 15-Nov-2015 Discharge Instruction Result: Comments: See Note; NOTES: [facility] Medical Records Department [address] [place] [address] Discharge Instruction 11/15/151617 MR#: [id number] Acct: [id number] Name: BRISSA SOARES Rep #: [id number] : 1940 75 From: Eladio Mai MD [...] problems, contact your doctor. Call [facility] ([phone]) or report to the closest Emergency Room. Call 911 if necessary. 11/15/151620 <Electronically signed by Eladio Mai MD> Date Eladio granados Signature (If Indicated): Date CC: Akosua Enrique MD 26-Sep-2015 Brain/Head without Contrast Result: Comments: See Note; NOTES: [facility] Imaging Services [address] [place] [address] Verdana 4d Brain/Head without Contrast MR#: [id number] Acct: [id number] Name: BRISSA SOARES Rep #: [id number] : 1940 F 75 From: Garry Knowles DO PCP: Akosua Enrique MD Status: REG ER Study: Brain/Head without Contrast Date of Exam: 09/26/15 Exam# [id number] Glendy horn Dr: Jacques Hunt MD STUDY: [...] at 21:04 EDT Tel , Service support [phone], F ax [phone] CC: Akosua Enrique MD; Jacques Hunt MD Bellows Tester: Signed 03-Aug-2015 Shoulder min 2 Views Result: Comments: See Note; NOTES: 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 Electronically Signed: Sergio Perea MD at 11:31 EST Tel [phone], Service support [phone], CC: Lesly Chairez; Akosua Enrique MD Bellows Tester: Signed 16-Feb-2015 Bilat Scrn Digital AND CAD Result: Comments: See Note; NOTES: [facility] Imaging Services [address] [place] [address] Breast Imaging Report MR#: [id number] Acct: [id number] Name: BRISSA SOARES Rep # : [id number] : 1940 F 74 From: Sergio Perea MD PCP: Akosua Enrique MD Status: REG CLI Study: Bilat Scrn Digital AND CAD Date of Exam: 02/16/15 Exam# [id number] Ordering Dr: Akosua Enrique MD MAMMOGRAPHY - [...] Sergio Perea MD at 10:27 EDT Tel [phone], Service support [phone], CC: Akosua Enrique MD Bellows Tester: Signed 06-Feb-2014 [facility] Result: Comments: See Note; NOTES: [facility] Imaging Services [address] [place] [address] Breast Imaging Report MR#: [id number] Acct: [id number] Name: BRISSA SOARES Rep #: [id number] : 1940 F 73 From: Sergio Perea MD PCP: Akosua Enrique MD Status: REG CLI Exam# [id number] Ordering Dr: Akosua Enrique MD MAMMOGRAPHY - [...] MD at 11:35 EDT , Service support [phone], CC: Akosua Enrique MD Bellows Tester: Signed 25-Apr-2013 Dexa Bone Density Study (HP) Result: Comments: See Note; NOTES: [facility] Imaging Services [address] [place] [address] Bone Density Report MR#: [id number] Acct: [id number] Name: BRISSA SOARES Rep #: [id number] : 1940 F 72 From: Sergio Perea MD PCP: Akosua Enrique MD Status: REG CLI Study: Dexa Bone Density Study (HP) Date of Exam: 04/25/13 Exam# [id number] Ordering Dr: Akosua Enrique MD STUDY: DUAL [...] April 25, 2013 at 3:13:26 PM EST [phone] Electronically Signed GP/GP If you are the referring physician and would like to consult with the radiologist who provided this interpretati on, please contact Sergio Perea M.D. at [phone]. If this radiologist is unavailable, you will be directed to another radiologist to assist. If you are a patient with a question regarding this report, please contact your referring physician directly. Professional Interpretation Provided By: [employer], Phone , These documents contain legally protecte [...] of these documents. CC: Akosua Enrique MD Bellows Tester: Signed Immunization Name Dates Details Influenza (3 [...] Calculated 2.01 m2 Head Circumference 0.00 cm [id number]-Cpp-904121:13 Pulse 80 /min Comments: Pattern: Regular Respiration [...] 0.00 cm Results Date Description Value Details [id number] MICROALBUMIN: CREATININE RATIO Comments: PATIENT WAS FASTINGPERFORMED BY: [id number] [id number] ([id number]) AND ([id number]) Alb/Creat Ratio 6.6 {mg/g_creat} (Normal) Range: 0.0-30.0 Albumin, Urine 3.5 ug/mL (Normal) Creatinine, Urine 53.0 mg/dL (Normal) 91-Pwc-674060:39 TSH (22873) Comments: PATIENT WAS FASTINGPERFORMED BY: LabCoSaint Clare's Hospital at DoverHrlomc4146 [facility] [id number] TSH 1.080 {uIU/mL} (Normal) Range: 0.450-4.500 89-Xci-078737:39 CBC, Platelets & Auto Diff Comments: PATIENT WAS FASTINGPERFORMED BY: LabCoMelissa Ville 9540370 [facility] [id number] (59043) Immature Grans (Abs) 0.0 {x10E3/uL} (Normal) Range: [...] 3.77-5.28 WBC 6.2 {x10E3/uL} (Normal) Range: 3.4-10.8 23-Gbu-932297:39 Metabolic Panel, Comprehensive Comments: PATIENT WAS FASTINGPERFORMED BY: LabCoSaint Clare's Hospital at DoverXsbfmi3815 [facility] [id number] (88409) ALT (SGPT) 12 [iU]/L (Normal) Range: 0-32 [...] 8-27 Glucose 88 mg/dL (Normal) Range: 65-99 74-Dsw-943867:39 LIPID PANEL (69896) Comments: PATIENT WAS FASTINGPERFORMED BY: TextDigger70 [facility] [id number] LDL/HDL Ratio 1.1 {ratio} (Normal) Range: 0.0-3.2 Comments: LDL/HDL Ratio Men Women 1/2 Avg.Risk 1.0 1.5 Av g.Risk 3.6 3.2 2X Avg.Risk 6.2 5.0 3X Avg.Risk 8.0 6.1 LDL Cholesterol Calc 82 mg/dL (Normal) Range: 0-99 VLDL Cholesterol Jessica 12 mg/dL (Normal) Range: 5-40 HDL Cholesterol 77 mg/dL (Normal) Triglycerides 62 mg/dL (Normal) Range: 0-149 Cholesterol, Total 171 mg/dL (Normal) Range: 100-199 4-Orz-210434:16 Basic Metabolic Panel (8) Comments: PATIENT NOT FASTINGPERFORMED BY: TextDigger70 Rewind MeNov[facility] [id number] Calcium 9.8 mg/dL (Normal) Range: 8.7-10.3 Carbon [...] 8-27 Glucose 76 mg/dL (Normal) Range: 65-99 6-Zlm-469254:16 CBC With Differential/Platelet Comments: PATIENT NOT FASTINGPERFORMED BY: LabCoSaint Clare's Hospital at DoverYjiovx0597 [facility] [id number] Immature Grans (Abs) 0.0 {x10E3/uL} (Normal) Range: [...] 3.77-5.28 WBC 6.5 {x10E3/uL} (Normal) Range: 3.4-10.8 5-Egl-265555:18 FECAL OCCULT- Tubes sent home (70651) FECAL OCCULT HGB ASSAY, QUAL, 1-3 SIMULTANEOU negative (Normal) :56 HgA1C , Office (16308) HgA1C , Office 5.2 % (Normal) Range: 4.6 - 7.1 3-Lnu-831645:56 Blood Glucose , Office (39002) Blood Glucose , Office 81 (Normal) 81-Cav-119145:28 VITAMIN B12 AND FOLATES Comments: PATIENT WAS FASTINGPERFORMED BY: Living ProofSaint Clare's Hospital at DoverQwucju1985 [facility] [id number] (87410) Folate (Folic Acid), Serum >20.0 ng/mL (Normal) Comments: A serum folate concentration of less than 3.1 ng/mL isconsidered to represent clinical deficiency. Vitamin B12 171 pg/mL (Abnormal) Range: 232-1245 99-Hwo-555505:28 CALCIFEDIOL (45550) Comments: PATIENT WAS FASTINGPERFORMED BY: Living ProofRehoboth McKinley Christian Health Care ServicesPkbdsc5571 [facility] [id number] Vitamin D, 25-Hydroxy 22.4 ng/mL (Abnormal) Range: 30.0-100.0 Comments: Vitamin D deficiency has been defined by the [place] ofMedicine and an Endocrine Society practice guideline as alevel of serum 25-OH vitamin D less than 20 ng/mL (1,2).The Endocrine Society went on to further define vitamin Dinsufficiency as a level between 21 and 29 ng/mL (2).1. IOM ([place] of Medicine). 2010. Dietary reference intakes for calcium and D. [place]: The National Academies Press.2. Tono MF, Jonatan DYER, Fabiola HUANG, et al. Evaluation, treatment, and prevention of vitamin D deficiency: an Endocrine Society clinical practice guideline. JCEM. 2010; 96(7):1911-30. 24-Ocs-450507:28 MICROALBUMIN: CREATININE RATIO Comments: PATIENT WAS FASTINGPERFORMED BY: Living ProofSaint Clare's Hospital at DoverAbrvqv2254 [facility] [id number] (83458) AND (08028) Alb/Creat Ratio <4.0 {mg/g_creat} (Normal) Range: 0.0-30.0 Albumin, Urine <3.0 ug/mL (Normal) Creatinine, Urine 74.9 mg/dL (Normal) :28 TSH (75281) Comments: PATIENT WAS FASTINGPERFORMED BY: AvesthagenHenry Ford West Bloomfield Hospital6370 [facility] [id number] TSH 1.070 {uIU/mL} (Normal) Range: 0.450-4.500 12-Mew-334021:28 CBC, Platelets & Auto Diff Comments: PATIENT WAS FASTINGPERFORMED BY: AvesthagenHenry Ford West Bloomfield Hospital6370 [facility] [id number] (22298) Immature Grans (Abs) 0.0 {x10E3/uL} (Normal) Range: [...] 3.77-5.28 WBC 5.6 {x10E3/uL} (Normal) Range: 3.4-10.8 49-Dcs-961350:28 Metabolic Panel, Comprehensive Comments: PATIENT WAS FASTINGPERFORMED BY: LabCoSaint Clare's Hospital at DoverXdpsxm3329 [facility] [id number] (08868) ALT (SGPT) 16 [iU]/L (Normal) Range: 0-32 [...] mg/dL (Normal) Range: 65-99 :28 Lipid Panel (22641) Comments: PATIENT WAS FASTINGPERFORMED BY: LILIANA Living Proof [place] [facility] [id number] LDL/HDL Ratio 1.3 {ratio_units} (Normal) Range: 0.0-3.2 Comments: LDL/HDL Ratio Men Women 1/2 Avg.Risk 1.0 1.5 Av g.Risk 3.6 3.2 2X Avg.Risk 6.2 5.0 3X Avg.Risk 8.0 6.1 LDL Cholesterol Calc 101 mg/dL (Abnormal) Range: 0-99 VLDL Cholesterol Jessica 11 mg/dL (Normal) Range: 5-40 HDL Cholesterol 79 mg/dL (Normal) Triglycerides 53 mg/dL (Normal) Range: 0-149 Cholesterol, Total 191 mg/dL (Normal) Range: 100-199 53-Pnx-299842:55 Urinalysis, Office (83546) UA - LEUKOCYTE ESTERASE Small (Normal) UA [...] Negative (Normal) :42 Blood Glucose , Office (54259) Comments: 91 Blood Glucose , Office 91 (Normal) :42 HgA1C , Office (78016) HgA1C , Office 5.1 % (Normal) Range: 4.6 - 7.1 :31 HgA1C , Office (33605) HgA1C , Office 5.2 % (Normal) Range: 4.6 - 7.1 4-Ihk-770749:31 Blood Glucose , Office (29555) Blood Glucose , Office 78 (Normal) :13 Anaerobic & Aerobic Comments: PATIENT NOT FASTINGPERFORMED BY: Living ProofSaint Clare's Hospital at DoverMzahay4978 [facility] [id number] Information: LEFT LEG SRC:FL Culture (58051) Antimicrobial MIHEAD (Normal) Comments: S = Susceptible; [...] Final report (Normal) :51 HgA1C , Office (56228) HgA1C , Office 5.2 % (Normal) Range: 4.6 - 7.1 :51 Blood Glucose , Office (59969) Blood Glucose , Office 83 (Normal) 57-Jql-119487:21 LIPID PANEL (24386) Comments: PATIENT WAS FASTINGPERFORMED BY: [employer]otec [facility] HospitalPromptCareNovant Health [facility] [id number] LDL/HDL Ratio 1.5 {ratio_units} (Normal) Range: 0.0-3.2 [...] Auto Diff Comments: PATIENT WAS FASTINGPERFORMED BY: AIRSIS6370 [employer] [facility] [id number] (12430) Immature Grans (Abs) 0.0 {x10E3/uL} (Normal) Range: [...] 3.77-5.28 WBC 6.0 {x10E3/uL} (Normal) Range: 3.4-10.8 50-Bls-651945:21 Metabolic Panel, Comprehensive Comments: PATIENT WAS FASTINGPERFORMED BY: LabCoSaint Clare's Hospital at DoverGkquvw4267 [facility] [id number]; OV 11/28 (89183) ALT (SGPT) 8 [iU]/L (Normal) Range: 0-32 [...] Glucose, Serum 73 mg/dL (Normal) Range: 65-99 73-Ypo-681420:21 TSH (96702) Comments: PATIENT WAS FASTINGPERFORMED BY: SimpleOrder LabCoQordoba Zpbmdc9893 [facility] [id number] TSH 0.748 {uIU/mL} (Normal) Range: 0.450-4.500 :33 HgA1C , Office (74906) HgA1C , Office 5.4 % (Normal) Range: 4.6 - 7.1 :33 Blood Glucose , Office (95471) Blood Glucose , Office 76 (Normal) 2-Kfq-700767:20 Microscopic Examination Comments: PATIENT WAS FASTINGPERFORMED BY: SimpleOrder LabCoSaint Clare's Hospital at DoverYutacs4841 [facility] [id number] Bacteria Few (Normal) Mucus Threads Present (Normal) Epithelial Cells (non renal) 0-10 {/hpf} (Normal) Range: 0 - 10 RBC 0-2 {/hpf} (Normal) Range: 0 - 2 WBC 11-30 {/hpf} (Abnormal) Range: 0 - 5 :20 MICROALBUMIN: CREATININE RATIO Comments: PATIENT WAS FASTINGPERFORMED BY: [facility]6370 [facility] [id number] (00119) AND (89758) Microalb/Creat Ratio 16.3 {mg/g_creat} (Normal) Range: 0.0-30.0 Microalbumin, Urine 21.2 ug/mL (Normal) Creatinine, Urine 130.4 mg/dL (Normal) 2-Ubs-419503:20 URINALYSIS (84538) Comments: PATIENT WAS FASTINGPERFORMED BY: [facility]6370 [facility] [id number] Microscopic Examination See below: (Normal) Comments: Microscopic was indicated and was performed. Nitrite, Urine Negative (Normal) Urobilinogen,Semi-Qn 0.2 mg/dL (Normal) Range: 0.2-1.0 Bilirubin Negative (Normal) Occult Blood Negative (Normal) Ketones Negative (Normal) Glucose Negative (Normal) Protein Negative (Normal) WBC Esterase 1+ (Abnormal) Appearance Clear (Normal) Urine-Color Yellow (Normal) pH 6.0 (Normal) Range: 5.0-7.5 Specific [place] 1.022 (Normal) Range: 1.005-1.030 5-Sbh-170928:20 Metabolic Panel, Comprehensive Comments: PATIENT WAS FASTINGPERFORMED BY: [facility]6370 [facility] [id number] (36500) ALT (SGPT) 9 [iU]/L (Normal) Range: 0-32 [...] Glucose, Serum 80 mg/dL (Normal) Range: 65-99 8-Qev-857106:20 Lipid Panel (69083) Comments: PATIENT WAS FASTINGPERFORMED BY: Alkami TechnologyNovant Health Brunswick Medical Center [id number] LDL/HDL Ratio 1.4 {ratio_units} (Normal) Range: 0.0-3.2 Comments: LDL/HDL Ratio Men Women 1/2 Avg.Risk 1.0 1.5 Av g.Risk 3.6 3.2 2X Avg.Risk 6.2 5.0 3X Avg.Risk 8.0 6.1 LDL Cholesterol Calc 98 mg/dL (Normal) Range: 0-99 VLDL Cholesterol Jessica 19 mg/dL (Normal) Range: 5-40 HDL Cholesterol 70 mg/dL (Normal) Triglycerides 95 mg/dL (Normal) Range: 0-149 Cholesterol, Total 187 mg/dL (Normal) Range: 100-199 4-Fez-328480:20 CBC, Platelets & Auto Diff Comments: PATIENT WAS FASTINGPERFORMED BY: TextDigger70 [employer] [facility] [id number] (79358) Immature Grans (Abs) 0.0 {x10E3/uL} (Normal) Range: [...] 3.77-5.28 WBC 5.4 {x10E3/uL} (Normal) Range: 3.4-10.8 3-Qbv-916189:20 CALCIFEDIOL (51071) Comments: PATIENT WAS FASTINGPERFORMED BY: [facility]6370 [facility] [id number] Vitamin D, 25-Hydroxy 30.8 ng/mL (Normal) Range: 30.0-100.0 Comments: Vitamin D deficiency has been defined by the [place] ofMedicine and an Endocrine Society practice guideline as alevel of serum 25-OH vitamin D less than 20 ng/mL (1,2).The Endocrine Society went on to further define vitamin Dinsufficiency as a level between 21 and 29 ng/mL (2).1. IOM ([place] of Medicine). 2010. Dietary reference intakes for calcium and D. [place]: The National Academies Press.2. Tono KO, Jonatan DYER, Fabiola HUANG, et al. Evaluation, treatment, and prevention of vitamin D deficiency: an Endocrine Society clinical practice guideline. JCEM. 2010; 96(7):1911-30. :53 HgA1C , Office (32646) HgA1C , Office 5.3 % (Normal) Range: 4.6 - 7.1 :53 Blood Glucose , Office (37390) Blood Glucose , Office 79 (Normal) :38 HgA1C , Office (53525) HgA1C , Office 5.5 % (Normal) Range: 4.6 - 7.1 :02 PT (Prothrobim Time) Comments: so; PATIENT NOT FASTINGPERFORMED BY: [facility] Pwttjg7431 [facility] [id number] Information: [id number] (40872) Prothrombin Time 20.8 {sec} (Abnormal) Range: 9.1-12.0 INR 2.0 (Abnormal) Range: 0.8-1.2 Comments: Reference interval is for non-anticoagulated patients. . Suggested INR therapeutic range for Vitamin K anta gonist therapy: Standard Dose (moderate intensity therapeutic range): 2.0 - 3.0 Higher intensity therapeutic range 2.5 - 3.5 :07 CBC W/Diff, Automated Comments: [facility] [address]faxrg[address] [place], [place], [id number] ; Dr oates Absolute Lymph 2.18 {X10_3/ul} [...] K/mm3 (Normal) Range: 4.4-11.0 :36 CREATININE CLEARANCE (02232) Comments: PATIENT NOT FASTINGPERFORMED BY: [employer] [place] [facility] [id number] Creatinine Clearance 61 mL/min (Abnormal) Range: 88-128 Comments: The above range is based on 1.73 square meter average body surfacearea. Creatinine, Ur 24hr 575.7 {mg/24_hr} (Abnormal) Range: 800.0-1800.0 Creatinine, Urine 60.6 mg/dL (Normal) :36 Total Protein,24 Hour Urine Comments: PATIENT NOT FASTINGPERFORMED BY: Amp'd MobileSaint Clare's Hospital at DoverAxwhyb9013 [facility] [id number] (20590) Prot,24hr calculated 191.0 {mg/24_hr} (Abnormal) Range: 30.0-150.0 Protein,Total,Urine 20.1 mg/dL (Normal) :36 METABOLIC PANEL, COMPREHENSIVE Comments: PATIENT NOT FASTINGPERFORMED BY: Amp'd MobileSaint Clare's Hospital at DoverByaebw1510 [facility] [id number] (58532) ALT (SGPT) 8 [iU]/L (Normal) Range: 0-32 [...] auto diff Comments: PATIENT NOT FASTINGPERFORMED BY: LabCoSaint Clare's Hospital at DoverDhlwtq8966 [facility] [id number] Information: [id number] (02861) Immature Grans (Abs) 0.0 {x10E3/uL} (Normal) Range: [...] (Normal) Range: 3.4-10.8 :44 HgA1C , Office (40269) HgA1C , Office 5.2 % (Normal) Range: 4.6 - 7.1 :14 HH, Hemoglobin AND Hematocrit Comments: [facility] Zcxztrcnsw4197 [facility] [address]. [place], [place], [phone](213) HCT 35.4 % (Abnormal) Range: 37-47 HGB 11.3 g/dL (Abnormal) Range: 12.0-15.0 22-Ycv-791294:25 Basic Metabolic Profile (BMP) Comments: 'TROP' Serial specimen #1, #2, #3, or #4: 1WC[facility] [address]rminil[address] [place], [place], [id number] GAP 3 (Abnormal) Range: 5-15 CO2 29.0 [...] <126 mg/dLsuggests IMPAIRED HOMEOSTASIS per A.D.A. criteria. 74-Gaa-521872:25 CBC W/Diff, Automated Comments: [facility] [address]asxlxfy[address] [place], [place], [address] Absolute Lymph 2.14 {X10_3/ul} (Normal) Range: 0.83-4.51 [...] 4.2-5.4 WBC 5.7 K/mm3 (Normal) Range: 4.4-11.0 08-Vjr-260578:25 Troponin-I Comments: 'TROP' Serial specimen #1, #2, #3, or #4: 1[facility] [address] [place], [address] TROPONIN-I < 0.02 ng/mL (Normal) Comments: TROPONIN-I EXPECTED VALUES <0.05 NEGATIVE 0.06 - 0.59 AT RISK OF NC > OR = 0.60 SUGGEST NC 13-Anx-232681:25 METABOLIC PANEL, COMPREHENSIVE Comments: PATIENT NOT FASTINGPERFORMED BY: [facility] Dnvnph6235 [facility] [id number] (39725) ALT (SGPT) 11 [iU]/L (Normal) Range: 0-32 [...] be decreased and K increased. Clinicalcorrelation indicated. 95-Tpf-467664:25 CBC with auto diff Comments: PATIENT NOT FASTINGPERFORMED BY: [facility] Wiloao8270 [facility] [id number] Information: [id number] (58217) Immature Grans (Abs) 0.0 {x10E3/uL} (Normal) Range: [...] 3.4-10.8 :11 HH, Hemoglobin AND Hematocrit Comments: [facility] [address] [place], [address] ; ord[facility] by [facility] HCT 24.1 % (Abnormal) Range: 37-47 HGB 7.9 g/dL (Abnormal) Range: 12.0-15.0 :25 Urinalysis, Complete Comments: How was Urine Obtained? SCRIPT DEVELOPER TO SPECIFYSum[facility] [address]mnpg[address] [place], [address] MUCUS, URINE 0 SEEN {/hpf} (Normal) [...] Serial specimen #1, #2, #3, or #4: 1[facility] [address] [place], [address] LENNY 29 U/L (Normal) Range: 25-115 :00 CBC W/Diff, Automated Comments: [facility] [address]brxw[address] [place], [address] Absolute Lymph 1.14 {X10_3/ul} (Normal) Range: [...] Serial specimen #1, #2, #3, or #4: 1[facility] Brgieykivf58[address] [place], [place], [id number] GAP 11 (Normal) Range: 5-15 CO2 22.0 [...] per A.D.A. criteria. 12-Sep-20153:00 Lactic Acid Comments: [facility] [address] [place], [address] LACTIC ACID 3.8 mmol/L (Abnormal) Range: 0.4-2.0 12-Sep-20153:00 Lipase Comments: 'TROP' Serial specimen #1, #2, #3, or #4: 1WC[facility] [address] [place], [address] LIPASE 84 U/L (Normal) Range: 73-393 12-Sep-20153:00 Partial Thromboplast Time Comments: [facility] [address] [place], [address] PTT 30.2 s (Normal) Range: 24.1-36.2 12-Sep-20153:00 Prothrombin Time w/INR Comments: [facility] [address] [place], [address] INR 3.7 (Abnormal) Comments: CRITICAL VALUE REPEATED AND VERIFIED. CALLED TO YSPYRIMT81/09/16 0336 Nia Delong.RESULTS READ BACK BY SAME . PROTIME 35.8 s (Abnormal) Range: 11.7-14.9 12-Sep-20153:00 Troponin-I Comments: 'TROP' Serial specimen #1, #2, #3, or #4: 1WC[facility] [address] [place], [address] TROPONIN-I 0.05 ng/mL (Normal) Comments: TROPONIN-I EXPECTED VALUES <0.05 NEGATIVE 0.06 - 0.59 AT RISK OF NC > OR = 0.60 SUGGEST NC 82-Xap-057066:09 INR Fingerstick Comments: [facility] LaboratoryPoint [address]qi[address] [place] [address] INR ISTAT 1.60 (Normal) Comments: Critical Value > 3.5 81-Ttu-192935:09 Prothrombin Time Fingerstick Comments: [facility]Point [address] [place] [address] PROTIME ISTAT 19.2 {SEC} (Abnormal) Range: 11.9-14.4 Comments: Reference Range 11.9 - 14.4 96-Gns-531826:23 URINE CAMERON CULTURE-IDENTIFICATN Comments: PATIENT NOT FASTINGPERFORMED BY: LabCoSaint Clare's Hospital at DoverMibtgj2207 [facility] [id number] Information: [id number] (96620) Result 1 BETAGB (Abnormal) Comments: Beta hemolytic [...] (CLSI 2011) Urine Final report (Abnormal) Culture,Comprehensive 65-Iyc-558133:05 Urinalysis, Office (00582) UA - LEUKOCYTE ESTERASE Small (Normal) UA - NITRITE Negative (Normal) URINE UROBILINGN HAIDER TIMED Normal mg/dL (Normal) UA - PROTEIN Negative mg/dL (Normal) UA - PH 7 (Normal) UA - BLOOD Hemolyzed Large (Normal) UA - SPECIFIC GRAVITY 1.010 (Normal) UA - KETONES Negative mg/dL (Normal) UA - BILIRUBIN Negative (Normal) UA - GLUCOSE Negative (Normal) 68-Pvq-895022:22 INR Fingerstick Comments: [address] [place] [address] INR ISTAT 2.70 (Normal) Comments: Critical Value > 3.5 83-Soj-151095:22 Prothrombin Time Fingerstick Comments: [address] [place] [address] PROTIME ISTAT 30.9 {SEC} (Abnormal) Range: 11.9-14.4 Comments: Reference Range 11.9 - 14.4 83-Pzy-031864:37 INR Fingerstick Comments: [place] [address] [place] [address] INR ISTAT 2.90 (Normal) Comments: Critical Value > 3.5 83-Xyg-842178:37 Prothrombin Time Fingerstick Comments: [place] [address] [place] [address] PROTIME ISTAT 32.8 {SEC} (Abnormal) Range: 11.9-14.4 Comments: Reference Range 11.9 - 14.4 :41 INR Fingerstick Comments: [place] [address] [place] [address] INR ISTAT 2.50 (Normal) Comments: Critical Value > 3.5 :41 Prothrombin Time Fingerstick Comments: [place] [address] [place] [address] PROTIME ISTAT 28.4 {SEC} (Abnormal) Range: 11.9-14.4 Comments: Reference Range 11.9 - 14.4 26-Ayh-631086:30 INR Fingerstick Comments: [place] [address] [place] [address] INR ISTAT 2.40 (Normal) Comments: Critical Value > 3.5 82-Wxs-205847:30 Prothrombin Time Fingerstick Comments: [place] [address] [place] [address] PROTIME ISTAT 27.3 {SEC} (Abnormal) Range: 11.9-14.4 Comments: Reference Range 11.9 - 14.4 :51 PT (Prothrobim Time) Comments: standing order fingerstick or serum; PATIENT NOT FASTINGPERFORMED BY: LabCoSaint Clare's Hospital at DoverHehbsu7418 [facility] [id number] Information: [id number] ([id number]) Prothrombin Time 33.2 {sec} (Abnormal) Range: 9.1-12.0 INR 3.2 (Abnormal) Range: 0.8-1.2 Comments: Reference interval is for non-anticoagulated patients. . Suggested INR therapeutic range for Vitamin K anta gonist therapy: Standard Dose (moderate intensity therapeutic range): 2.0 - 3.0 Higher intensity therapeutic range 2.5 - 3.5 05-Vuw-347062:05 HgA1C , Office (40227) HgA1C , Office 5.5 % (Normal) Range: 4.6 - 7.1 09-Dqo-770864:50 Prothrombin Time w/INR Comments: [place] [address] [place], [address] INR 2.5 (Normal) PROTIME 26.9 s (Abnormal) Range: 11.7-14.9 36-Mrm-638653:05 Prothrombin Time w/INR Comments: [place] [address] [place], [place], [phone] INR 2.4 (Normal) PROTIME 26.1 s (Abnormal) Range: 11.7-14.9 23-Ffy-158389:31 Prothrombin Time w/INR Comments: [facility] [address] [place], [address] INR 3.1 (Normal) PROTIME 31.9 s (Abnormal) Range: 11.7-14.9 59-Sra-953230:14 Prothrombin Time w/INR Comments: [facility] [address] [place], [address] INR 2.9 (Normal) PROTIME 30.4 s (Abnormal) Range: 11.7-14.9 09-Dzh-573495:40 Prothrombin Time w/INR Comments: [facility] [address] [place], [address] INR 2.4 (Normal) PROTIME 26.3 s (Abnormal) Range: 11.7-14.9 34-Qgs-553171:00 PT (Prothrobim Time) Comments: standing order; PATIENT NOT FASTINGPERFORMED BY: Living ProofRehoboth McKinley Christian Health Care ServicesRbggif6506 [facility] [id number] Information: [id number] (41439) Prothrombin Time 17.3 {sec} (Abnormal) Range: 9.1-12.0 INR 1.7 (Abnormal) Range: 0.8-1.2 Comments: Reference interval is for non-anticoagulated patients. . Suggested INR therapeutic range for Vitamin K anta gonist therapy: Standard Dose (moderate intensity therapeutic range): 2.0 - 3.0 Higher intensity therapeutic range 2.5 - 3.5 55-Rpv-951200:00 Hemoglobin Glyclated (HGB A1C) Comments: PATIENT NOT FASTINGPERFORMED BY: AvesthagenCoSaint Clare's Hospital at DoverCvjmey7110 [facility] [id number] ([id number]) Hemoglobin A1c 5.7 % (Abnormal) Range: 4.8-5.6 Comments: . Increased risk for diabetes: 5.7 - 6.4 Diabetes: >6.4 Glycemic control for adults with diabetes: <7.0 62-Bsh-583533:34 Prothrombin Time w/INR Comments: Test performed at:[facility] [address] [place] [address] INR 2.3 (Normal) PROTIME 25.4 s (Abnormal) Range: 11.7-14.9 :54 Prothrombin Time w/INR Comments: Test performed at:[facility] [address] [place] [address] INR 2.6 (Normal) PROTIME 27.6 s (Abnormal) Range: 11.7-14.9 :50 PT (Prothrobim Time) Comments: so; PATIENT NOT FASTINGPERFORMED BY: [employer] [facility] [id number] Information: [id number] ([id number]) Prothrombin Time 35.6 {sec} (Abnormal) Range: 9.1-12.0 INR 3.4 (Abnormal) Range: 0.8-1.2 Comments: Reference interval is for non-anticoagulated patients. . Suggested INR therapeutic range for Vitamin K anta gonist therapy: Standard Dose (moderate intensity therapeutic range): 2.0 - 3.0 Higher intensity therapeutic range 2.5 - 3.5 96-Gfu-953692:42 Prothrombin Time w/INR Comments: Test performed at:[facility] [address] [place] [address] INR 1.9 (Normal) PROTIME 22.2 s (Abnormal) Range: 11.7-14.9 :10 Prothrombin Time w/INR Comments: Test performed at:[facility] [address] [place] [address] INR 2.5 (Normal) PROTIME 26.7 s (Abnormal) Range: 11.7-14.9 :49 CBC with auto diff Comments: copy of all labs to Dr. martinez; PATIENT WAS FASTINGPERFORMED BY: [facility] Xiixsq7526 [facility] [id number] Information: [id number] (96582) Immature Grans (Abs) 0.0 {x10E3/uL} (Normal) Range: [...] 3.77-5.28 WBC 6.0 {x10E3/uL} (Normal) Range: 3.4-10.8 98-Qva-799068:49 CALCIFIDIOL (14182) VIT D 25 Comments: PATIENT WAS FASTINGPERFORMED BY: [facility]6370 [facility] [id number] Vitamin D, 25-Hydroxy 28.0 ng/mL (Abnormal) Range: 30.0-100.0 Comments: Vitamin D deficiency has been defined by the [place] ofMedicine and an Endocrine Society practice guideline as alevel of serum 25-OH vitamin D less than 20 ng/mL (1,2).The Endocrine Society went on to further define vitamin Dinsufficiency as a level between 21 and 29 ng/mL (2).1. IOM ([place] of Medicine). 2010. Dietary reference intakes for calcium and D. [place]: The National Academies Press.2. Tono MF, Jonatan DYER, Fabiola HUANG, et al. Evaluation, treatment, and prevention of vitamin D deficiency: an Endocrine Society clinical practice guideline. JCEM. 2010; 96(7):1911-30. :49 MICROALBUMIN: CREATININE RATIO Comments: PATIENT WAS FASTINGPERFORMED BY: [facility] [facility]qpk[facility]q8316 [facility] [id number]; [address] ([address]) AND ([address]87) Microalb/Creat Ratio 23.8 {mg/g_creat} (Normal) Range: 0.0-30.0 Microalbumin, Urine 17.2 ug/mL (Abnormal) Range: 0.0-17.0 Creatinine, Urine 72.3 mg/dL (Normal) Range: 15.0-278.0 :49 METABOLIC PANEL, COMPREHENSIVE Comments: PATIENT WAS FASTINGPERFORMED BY: Amp'd MobileRehoboth McKin[facility] Care ServicesRshvxi3281 [facility] [id number] (95838) ALT (SGPT) 7 [iU]/L (Normal) Range: 0-32 [...] Glucose, Serum 82 mg/dL (Normal) Range: 65-99 77-Afy-018185:49 LIPID PANEL (63070) Comments: PATIENT WAS FASTINGPERFORMED BY: [facility]CoSaint [facility] Hospital at DoverUmolpm3187 [facility] [id number] LDL/HDL Ratio 1.0 {ratio_units} (Normal) Range: 0.0-3.2 [...] Cholesterol, Total 149 mg/dL (Normal) Range: 100-199 60-Bdx-478236:26 HgA1C , Office (84910) HgA1C , Office 5.6 % (Normal) Range: 4.6 - 7.1 05-Fqe-778926:26 Blood Glucose , Office (24927) Blood Glucose , Office 102 (Normal) :27 Prothrombin Time w/INR Comments: Test performed at:[facility] [address] [place], [place] [address] INR 3.3 (Normal) PROTIME 33.6 s (Abnormal) Range: 11.7-14.9 90-Cwu-527612:35 Prothrombin Time w/INR Comments: Test performed at:[facility] [address] [place] [address] INR 2.7 (Normal) PROTIME 28.9 s (Abnormal) Range: 11.7-14.9 :18 Prothrombin Time w/INR Comments: Test performed at:[facility] [address] [place] [address] INR 2.5 (Normal) PROTIME 27.0 s (Abnormal) Range: 11.7-14.9 :37 Prothrombin Time w/INR Comments: Test performed at:[facility] [address] [place] [address] INR 2.2 (Normal) PROTIME 24.4 s (Abnormal) Range: 11.7-14.9 :13 Prothrombin Time w/INR Comments: Test performed at:[facility] [address] [facility] [address] [address] [place] [address] INR 2.4 (Normal) PROTIME 26.2 s (Abnormal) Range: 11.7-14.9 :48 PT INR 2.4 (Normal) PTP 25.8 s (Abnormal) Range: 11.7-14.9 :43 HgA1C , Office (39769) HgA1C , Office 5.8 % (Normal) Range: 4.6 - 7.1 :43 Blood Glucose , Office (94975) Blood Glucose , Office 98 (Normal) :15 [...] 4.2-5.4 WBC 5.0 K/mm3 (Normal) Range: 4.4-11.0 41-Bhk-683498:15 CMP GAP 6 (Normal) Range: 5-15 CO2 [...] 7-18 GLU 80 mg/dL (Normal) Range: 70-110 05-Xhs-303318:15 LIPID VLDL 19 mg/dL (Normal) Range: 5-40 [...] CHOL 130 mg/dL (Normal) Comments: <200 mg/dL Lfkhnldxf830-444 mg/dL Borderline>240 mg/dL High Risk 61-Abj-284016:15 PT INR 2.7 (Normal) PTP 28.2 s (Abnormal) Range: 11.7-14.9 93-Ehy-312534:15 UAC Comments: How was Urine Obtained? CLEAN [...] (Normal) UCLAR Clear (Normal) UCOL Yellow (Normal) 46-Bnz-241889:15 VITD 53.7 ng/mL (Normal) Comments: Vitamin D [...] Comments: Please note revised PROTIME reference range bbkcytmca91/14/15. 0-Tzh-589624:27 PT INR 1.6 (Normal) PTP 19.1 s (Abnormal) Range: 11.7-14.9 Comments: Please note revised PROTIME reference range /14/15. :55 HgA1C , Office (70668) HgA1C , Office 6.0 % (Normal) Range: 4.6 - 7.1 :55 Blood Glucose , Office (42512) Blood Glucose , Office 103 (Normal) :55 PT INR 2.3 (Normal) PTP 24.9 s (Abnormal) Range: 11.7-14.9 Comments: Please note revised PROTIME reference range rrrorgvkz78. 9-:51 PT INR 2.1 (Normal) PTP 21.9 [...] CHOL 153 mg/dL (Normal) Comments: <200 mg/dL Eksykeniu412-580 mg/dL Borderline>240 mg/dL High Risk TRIG 93 mg/dL (Normal) Range: 0-199 Comments: Serum Triglycerides Reference IntervalNormal <150 mg/dLBorderline high 150 - 199 mg/dLHigh 200 - 499 mg/ dLVery High > or = 500 mg/dL :08 Blood Glucose , Office (41922) Blood Glucose , Office 90 (Normal) :08 HgA1C , Office (26259) HgA1C , Office 6.0 % (Normal) Range: [...] (Abnormal) Range: 11.9-14.4 :12 HgA1C , Office (30378) HgA1C , Office 6.8 % (Normal) Range: 4.6 - 7.1 :12 Blood Glucose , Office (21140) Blood Glucose , Office 109 (Normal) :20 [...] CHOL 167 mg/dL (Normal) Comments: <200 mg/dL Vwxvovggf110-249 mg/dL Borderline>240 mg/dL High Risk TRIG 155 [...] (Prothrobim Time) Comments: PATIENT NOT FASTINGPERFORMED BY: LabCoSaint Clare's Hospital at DoverNlgyhx5097 [facility] [id number] Information: [id number] (38814) Prothrombin Time 18.3 {sec} (Abnormal) Range: 9.1-12.0 INR 1.8 (Abnormal) Range: 0.8-1.2 Comments: Reference interval is for non-anticoagulated patients. . Suggested INR therapeutic range for Vitamin K anta gonist therapy: Standard Dose (moderate intensity therapeutic range): 2.0 - 3.0 Higher intensity therapeutic range 2.5 - 3.5 86-Oyz-560333:06 PT (Prothrobim Time) Comments: PATIENT NOT FASTINGPERFORMED BY: [facility]Co Bgncbc7066 [facility] [id number] Information: [id number] (86989) Prothrombin Time 29.0 {sec} (Abnormal) Range: 9.1-12.0 INR 2.8 (Abnormal) Range: 0.8-1.2 Comments: Reference interval is for non-anticoagulated patients. . Suggested INR therapeutic range for Vitamin K anta gonist therapy: Standard Dose (moderate intensity therapeutic range): 2.0 - 3.0 Higher intensity therapeutic range 2.5 - 3.5 5-Dxs-389576:23 PT (Prothrobim Time) Comments: PATIENT NOT FASTINGPERFORMED BY: [facility]6370 [facility] [id number] Information: [id number],2ND ORDER NO DRAW F EE (15585) Prothrombin Time 31.6 {sec} (Abnormal) Range: 9.1-12.0 INR 3.0 (Abnormal) Range: 0.8-1.2 Comments: Reference interval is for non-anticoagulated patients. . Suggested INR therapeutic range for Vitamin K anta gonist therapy: Standard Dose (moderate intensity therapeutic range): 2.0 - 3.0 Higher intensity therapeutic range 2.5 - 3.5 3-Xnk-749094:23 TSH (81737) Comments: recheck in 3-4 weeks; PATIENT NOT FASTINGPERFORMED BY: [facility]Co Mamivj7831 [facility] [id number] TSH 1.150 {uIU/mL} (Normal) Range: 0.450-4.500 4-Cmn-115456:23 T4, FREE (THYROXINE) Comments: recheck in 3-4 weeks; PATIENT NOT FASTINGPERFORMED BY: [facility]6370 [facility] [id number] Information: [id number] (13712) T4,Free(Direct) 1.08 ng/dL (Normal) Range: 0.82-1.77 9-Wjb-962185:23 T3, FREE (TRIDOTHYRONINE) (57286) Comments: recheck in 3-4 weeks; PATIENT NOT FASTINGPERFORMED BY: [facility] Pdjvuu6810 [address] [facility] [place] [id number] Triiodothyronine,Free,Serum 2.2 pg/mL (Normal) Range: 2.0-4.4 :44 PT (Prothrobim Time) Comments: results to Dr Enrique; PATIENT NOT FASTINGPERFORMED BY: [facility] Kzvofn3875 [address] [facility] [id number] Information: [id number] (44237) Prothrombin Time 31.4 {sec} (Abnormal) Range: 9.1-12.0 INR 3.0 (Abnormal) Range: 0.8-1.2 Comments: Reference interval is for non-anticoagulated patients. . Suggested INR therapeutic range for Vitamin K anta gonist therapy: Standard Dose (moderate intensity therapeutic range): 2.0 - 3.0 Higher intensity therapeutic range 2.5 - 3.5 :44 TSH (79105) Comments: PATIENT NOT FASTINGPERFORMED BY: [facility] Afhcwn1942 [address] [facility] [id number] TSH 0.139 {uIU/mL} (Abnormal) Range: 0.450-4.500 :44 T4, FREE (THYROXINE) (54725) Comments: PATIENT NOT FASTINGPERFORMED BY: [facility] Mrujop5271 [address] [facility] [place] [id number] T4,Free(Direct) 1.18 ng/dL (Normal) Range: 0.82-1.77 :44 T3, FREE (TRIDOTHYRONINE) (60182) Comments: PATIENT NOT FASTINGPERFORMED BY: [facility] Wuleuc3683 [address] [facility] [place] [id number] Triiodothyronine,Free,Serum 2.1 pg/mL (Normal) Range: 2.0-4.4 :02 SED RATE ERYTHROCYTE (48214) Comments: PATIENT NOT FASTINGPERFORMED BY: [facility]Henry [facility]6370 [facility] [id number] Sedimentation Rate-Westergren 18 mm/h (Normal) Range: 0-40 :02 TSH (90332) Comments: PATIENT NOT FASTINGPERFORMED BY: LabCoMelissa [place] 9540370 [facility] [id number] TSH 0.358 {uIU/mL} (Abnormal) Range: 0.450-4.500 :02 VIKI (ANTINUCLEAR ANTIBODY) Comments: PATIENT NOT FASTINGPERFORMED BY: [address] [id number] (91139) VIKI Direct Negative (Normal) :02 CBC WITH MANUAL DIFF Comments: PATIENT NOT FASTINGPERFORMED BY: LabAllison Ville 3607270 [facility] [id number] Information: [id number] (82192) Immature Grans (Abs) 0.0 {x10E3/uL} (Normal) Range: [...] of these values in the reference population. 6-Frp-770195:02 METABOLIC PANEL, COMPREHENSIVE Comments: PATIENT NOT FASTINGPERFORMED BY: LabCoSaint Clare's Hospital at DoverGflmmj1714 [facility] [id number] (80358) ALT (SGPT) 11 [iU]/L (Normal) Range: 0-32 [...] Glucose, Serum 94 mg/dL (Normal) Range: 65-99 36-Ciq-520930:20 PT INR 2.0 (Normal) PTP 21.6 s (Abnormal) Range: 11.9-14.4 28-Trl-024282:24 BILAT SCRN DIGITAL & CAD Radiology Report [...] M.D.January 31, 2013 at 6:48:38 P M [id number] Signed RU/RU If you are the referring physician and would like to consult with theradiologist who provided this interpretation, please contact Taz Stack at . If this radiologist is unavailable, youwillbe directed to another radiologist to assist. If you are a patient with a question regarding this report, pleasecontactyour referring physician johan dexter. Professional Interpretation Provided By: [employer], Phone , These documents contain legally protected [...] Jhon Lazcano :53 Blood Glucose , Office (93963) Blood Glucose , Office 115 (Normal) :53 HgA1C , Office (64401) HgA1C , Office 6.1 % (Normal) Range: 4.6 - 7.1 0-Ucu-391903:52 PT INR 1.7 (Normal) PTP 18.6 s (Abnormal) Range: 11.9-14.4 05-Hvn-406523:56 Aerobic Bacterial Culture Comments: PERFORMED BY: LILIANA LabCoSaint Clare's Hospital at DoverQynoez7388 [address] [place] [id number] Information: SRC:UB Result 1 Mixed skin yaakov (Normal) Aerobic Bacterial Culture Final report (Normal) :37 PT INR 2.5 (Normal) PTP 25.6 s (Abnormal) Range: 11.9-14.4 :03 HgA1C , Office (49584) HgA1C , Office 7.1 % (Normal) Range: [...] D deficiency has been defined by the [place] ofMedicine and an Endocrine Society practice guideline as alevel of serum 25-OH vitamin D less than 20 ng/mL (1,2).The Endocrine Society went on to further define vitamin Dinsufficiency as a level between 21 and 29 ng/mL (2).1. IOM ([place] of Medicine). 2010. Dietary reference intakes for calcium and D. [place]: The National Academies Press.2. Tono MF, Jonatan DYER, Fabiola HUANG, et al. Evaluation, treatment, and prevention of vitamin D deficiency: an Endocrine Society clinical practice guideline. JCEM. 2010; 96(7): 1911-30.Performed at: [facility] Lab[address] [id number] Director: Tyrese Arora PhD, Phone: [phone] :[phone] PT INR 2.7 (Normal) PTP 26.4 [...] (Normal) PTP 27.5 s (Abnormal) Range: 11.9-14.4 57-Wca-940705:29 PT INR 3.8 (Abnormal) Comments: RESULTS CALLED TO DIMA AT DR ENRIQUE'S002/20/12 1304 MELISSA BATEMAN.REPORT READ BACK BY SAME . PTP 34.2 s (Abnormal) Range: 11.9-14.4 :28 HgA1C , Office (61234) HgA1C , Office 6.1 % (Normal) Range: 4.6 - 7.1 86-Btq-148791:28 Blood Glucose , Office (32523) Blood Glucose , Office 154 (Normal) 20-Wjy-378917:15 PT INR 2.5 (Normal) PTP 25.2 s (Abnormal) Range: 11.9-14.4 61-Nis-242775:46 BILAT SCRN DIGITAL & CAD Radiology Report [...] Perea M.D.January 30, 2012 at 12:54:04 PM [id number] Signed GP/GP If you are the referring physician and would like to consult with t heradiologist who provided this interpretation, please contact Taz Morrison at [phone]. If this radiologist is unavailable, youwill be directed to another radiologist to assist. If you a re a patient with a question regarding this report, pleasecontactyour referring physician directly. Professional Interpretation Provided By: [employer], Phone , These docu ments contain legally [...] 01/30/12 1432 Sign by: Sergio Perea MD 80-Yeb-712310:58 PT Comments: standing order INR 3.5 (Normal) PTP 32.2 s (Abnormal) Range: 11.9-14.4 93-Geq-956619:51 PT INR 2.6 (Normal) PTP 25.9 s [...] Alvarez M.D.December 26, 2011 at 10:00:06 AM [id number] Signed RB/RB If y ou are the [...] 12/26/11 1006 Sign by: Brian Alvarez MD 3-Mov-014207:15 PT INR 1.9 (Normal) PTP 20.2 s (Abnormal) Range: 11.9-14.4 :46 HgA1C , Office (57857) HgA1C , Office 6.5 % (Normal) Range: 4.6 - 7.1 :46 Blood Glucose , Office (67645) Blood Glucose , Office 107 (Normal) :14 [...] (Abnormal) Range: 11.9-14.4 :14 HgA1C , Office (31231) HgA1C , Office 7.2 % (Abnormal) Range: 4.6 - 7.1 :14 Blood Glucose , Office (46528) Blood Glucose , Office 126 (Normal) 33-Iuq-779230:12 PRO TIME INR 2.9 (Normal) PROTIME 28.7 [...] s (Abnormal) Range: 11.9-14.4 :22 VIT D,25 79634 45.9 ng/mL (Normal) Range: 30.0-100.0 Comments: Vitamin D deficiency has been defined by the [place] ofMedicine and an Endocrine Society practice guideline as alevel of serum 25-OH vitamin D less than 20 ng/mL (1,2).The Endocrine Society went on to further define vitamin Dinsufficiency as a level between 21 and 29 ng/mL (2).1. IOM ([place] of Medicine). 2011. Dietary reference intakes for calcium and D. [place]: The National Academies Press.2. Tono MF, Jonatan DYER, Fabiola HUANG, et al. Evaluation, treatment, and prevention of vitamin D deficiency: an Endocrine Society clinical practice guideline. JCEM. 2010; 96(7): 1911-30.Performed at: - [address] [id number] Director: Kathleen Lorenzo MD, Phone: [phone] :[phone] PRO TIME INR 2.6 (Normal) PROTIME 26.9 s (Abnormal) Range: 11.9-14.4 :18 PRO TIME INR 1.8 (Normal) PROTIME 20.1 s (Abnormal) Range: 11.9-14.4 :04 HgA1C , Office (92292) HgA1C , Office 5.9 % (Normal) Range: 4.6 - 7.1 :04 Blood Glucose , Office (26141) Blood Glucose , Office 101 (Normal) :12 [...] (Abnormal) Range: 11.9-14.4 :30 HgA1C , Office (03650) HgA1C , Office 6.4 % (Normal) Range: 4.6 - 7.1 C difficile Toxins Negative (Normal) Comments: PERFORMED BY: Living ProofRehob[facility] Care ServicesYmqjkz6078 [facility] [id number] :[id number] A+B, EIA Occult Blood, Fecal, Negative (Normal) Comments: PERFORMED BY: Living ProofSaint [facility] Hospital at DoverSfbbnh1884 [facility] [id number] :06 IA :06 Ova + Parasite Exam Comments: PERFORMED BY: Living ProofSaint [facility] Hospital at DoverArirey1795 [facility] [id number] Result 1 NOCP (Normal) Comments: No ova, cysts, or parasites seen. Ova + Parasite Exam Final report (Normal) Comments: These results were obtained using wet preparation(s) and trichromestained smear. This test does not include testing for Cryptosporidiumparvum, Cyclospora, or Microsporidia. 05-Bdg-047404:06 Stool Culture Comments: PERFORMED BY: [facility]6370 [facility] [id number] Information: SRC:ST E coli Shiga Toxin EIA Negative (Normal) Result 1 NCI (Normal) Comments: No Campylobacter species isolated. Campylobacter Culture Final report (Normal) Result 1 NSS (Normal) Comments: No Salmonella or Shigella recovered. Salmonella/Shigella Screen Final report (Normal) 09-Siy-240059:06 White Blood Cells (WBC), Comments: PERFORMED BY: [facility]6370 [facility] [id number] Stool Result 1 NWBC (Normal) Comments: No white blood cells seen. White Blood Cells (WBC), Final report (Normal) Comments: Reference Range: None Seen Stool 3-Fzh-928609:25 KNEE,4 OR MORE VIEWS Radiology Report See [...] on 01/06/111549 by ITS IMPORTSi gn by oTmmy Rothman MD on 01/06/111549 Sign by: Tommy [...] on 2223 Sign by: Keya Nava MD 64-Yit-101350:42 BILAT SCRN DIGITAL & CAD Radiology Report [...] CREAT 112.8 mg/dL (Normal) :43 VIT D,25 64907 38.3 ng/mL (Normal) Range: 32.0-100.0 Comments: Recent studies consider the lower limit of 32.0 ng/mL to gosia threshold for optimal health.Joseph NOEL. J Nutr. 2004;135(2):317-22.Performed at: - LabCoLaurie Ville [address]Lab Director: Kathleen Lorenzo MD, Phone: [phone] 4-Gjx-085259:14 CBCD,SMEAR DIFF PLT EST SeeNote (Normal) Comments: [...] 4.2-5.4 WBC 7.1 K/mm3 (Normal) Range: 4.4-11.0 7-Jwu-971651:14 COMP METABOLIC CO2 28.0 mmol/L (Normal) Range: [...] 7-18 GLU 104 mg/dL (Normal) Range: 70-110 6-Rkr-797965:14 LIPID VLDL 23 mg/dL (Normal) Range: 5-40 [...] 200-240 mg/dL Borderline >240 mg/dL High Risk 9-Gmu-651459:14 MICROALB:CRE UR MALB:CREAT 8.0 {mg/g_CRE} (Normal) MICROALBUMIN,UR 5.7 mg/L (Normal) UR CREAT 71.2 mg/dL (Normal) :14 VIT D,25 71351 39.1 ng/mL (Normal) Range: 32.0-100.0 Comments: Recent studies consider the lower limit of 32.0 ng/mL to gosia threshold for optimal health.Joseph NOEL. J Nutr. 2004;135(2):317-22.Performed at: - LabCameron Ville [address]Lab Director: Kathleen Lorenzo MD, Phone: [phone] 03-Ulo-915597:36 HgA1C , Office (71830) HgA1C , Office 7.5 % (Abnormal) Range: 4.6 - 7.1 49-Elv-692806:36 Blood Glucose , Office (05506) Blood Glucose , Office 108 (Normal) :41 [...] CHOL 148 mg/dL (Normal) Comments: <200 mg/dL Agpfzjejb132-730 mg/dL Borderline>240 mg/dL High Risk HDL 62 [...] CREAT 78.4 mg/dL (Normal) :41 VIT D,25 24751 37.9 ng/mL (Normal) Range: 32.0-100.0 Comments: Recent studies consider the lower limit of 32.0 ng/mL to gosia threshold for optimal health.Joseph NOEL. J Nutr. 2004;135(2):317-22.Performed at: [facility] - LabCo[address] [id number]Lab Director: Kathleen Lorenzo MD, Phone: [phone] :[phone] Blood Glucose , Office (07583) Blood Glucose , Office 97 (Normal) :53 HgA1C , Office (60995) HgA1C , Office 7.1 % (Normal) Range: [...] CHOL 160 mg/dL (Normal) Comments: <200 mg/dL Jqqtzscjs078-290 mg/dL Borderline>240 mg/dL High Risk TRIG 105 [...] Report See Note (Normal) Comments: Exam Number: [id number] MAMMOGRAM, BILATERAL SCREENING DIGITAL AND CAD HISTORYSix-month [...] mammograms werealso examined with computer-aided detection software ([employer], [employer] Reported By: ZULEYKA LYMAN M.D. 47-Mka-016770:52 Blood Glucose , Office (64223) Blood Glucose , Office 128 (Normal) :24 [...] 31 mg/dL (Normal) Range: 5-40 :24 METHYLM 112125 134 nmol/L (Normal) Comments: SPE Scanned image [...] UR CREAT 79.1 mg/dL (Normal) :24 SPE [id number] Comments: SPE Scanned image report available in [...] electrophoresis scan will follow via computer,mail, or nip wrapper delivery. PROTEIN,TOTAL 7.2 g/dL (Normal) Range: 6.0-8.5 :24 VIT D,25 77342 17.0 ng/mL (Abnormal) Comments: SPE Scanned image report available in PCI.See LAB REFERENCE RESULTS form. Range: 32.0-100.0 Comments: Recent studies consider the lower limit of 32.0 ng/mL to gosia threshold for optimal health.Joseph NOEL. J Nutr. 2004;135(2):317-22. :57 HgA1C , Office (65551) HgA1C , Office 7.3 % (Abnormal) Range: 4.6 - 7.1 :56 Blood Glucose , Office (41174) Blood Glucose , Office 144 (Normal) :52 [...] mg/dL VLDL 42 mg/dL (Abnormal) Range: 5-40 4-Klp-169766:19 UNILAT RT DIAG DIGITAL & CAD Radiology Report See Note (Normal) Comments: Exam Number: [id number] MAMMOGRAM, UNILATERAL RIGHT DIAGNOSTIC DIGITAL AND CAD [...] mammograms werealso examined with computer-aided detection software ([employer], [employer], [employer].). Reported By: ZULEYKA LYMAN M.D. 14-Zsg-421394:29 HgA1C , Office (36347) HgA1C , Office 6.6 % (Normal) Range: 4.6 - 7.1 58-Liz-653253:29 Blood Glucose , Office (10818) Blood Glucose , Office 115 (Normal) :53 [...] T PROT 7.4 g/dL (Normal) Range: 6.4-8.2 98-Ywy-149107:13 UNILAT RT DIAG DIGITAL & CAD Radiology Report See Note (Normal) Comments: Exam Number: [id number] MAMMOGRAM, UNILATERAL RIGHT DIAGNOSTIC DIGITAL AND CAD [...] mammograms werealso examined with computer-aided detection software ([employer], [employer], Inc.). Reported By: ZULEYKA LYMAN M.D. 11-Xhq-269612:41 BILAT SCRN DIGITAL & CAD Radiology Report See Note (Normal) Comments: Exam Number: [id number] BILATERAL SCREENING MAMMOGRAM COMPARISONComparison is made to [...] The mammogramswere also examined with computer-aided detection software(ImageFresenius Medical [facility] OKCD.). Reported By: HARPER OLIVERA M.D. 95-Xgw-149493:38 Blood Glucose , Office (43645) Blood Glucose , Office 108 (Normal) :57 [...] (Normal) Range: 6.4-8.2 :42 HgA1C , Office (82579) HgA1C , Office 6.3 % (Normal) Range: [...] mg/dL (Normal) :19 Blood Glucose , Office (01946) Blood Glucose , Office 151 (Normal) Comments: :19 HgA1C , Office (76650) HgA1C , Office 6.0 % (Normal) Range: 4.6 - 7.1 Comments: 30-Hlg-677871:11 BREAST UNILATERAL US (HP) Radiology Report See Note (Normal) Comments: Exam Number: [id number] TARGETED RIGHT BREAST ULTRASOUND High resolution real [...] Report See Note (Normal) Comments: Exam Number: [id number] MAMMOGRAM, BILATERAL DIAGNOSTIC DIGITAL AND CAD HISTORYRoutine [...] mammograms werealso examined with computer-aided detection software ([employer].). Reported By: ZULEYKA LYMAN M.D. 6-Ruh-961194:16 DEXA BONE DENSITY STUDY (HP) Radiology Report See Note (Normal) Comments: Exam Number: [id number] BONE DENSITOMETRY HISTORYPostmenopausal. TECHNIQUE Bone densitometry of [...] withinnormal limits. Reported By: ZULEYKA LYMAN M.D. 2-Wch-201325:53 HgA1C , Office (58824) HgA1C , Office 5.8 % (Normal) Range: 4.6 - 7.1 3-Vzz-417737:53 Blood Glucose , Office (18432) Blood Glucose , Office 98 (Normal) 14-Sva-928057:00 CULTURE, URINE URINE CULTURE See Note {CFU/mL} (Normal) Comments: COLONY COUNT 11,000-25,000 ORGANISM 1: MIXED GRAM POS & NEG ORGANISMS 63-Uim-412986:57 Urinalysis, Office (49253) Comments: ABN signed UA - BILIRUBIN Negative (Normal) UA - BLOOD Negative (Normal) UA - GLUCOSE Negative (Normal) UA - KETONES Negative mg/dL (Normal) UA - LEUKOCYTE ESTERASE Trace (Normal) UA - NITRITE Negative (Normal) UA - PH 7.0 (Normal) UA - PROTEIN Negative mg/dL (Normal) UA - SPECIFIC GRAVITY 1.005 (Normal) URINE UROBILINGN HAIDER TIMED 2 mg/dL (Normal) 83-Jzy-67200:07 LIPID CHOL 166 mg/dL (Normal) Comments: <200 [...] T PROT 7.2 g/dL (Normal) Range: 6.4-8.2 96-Wko-509234:21 Blood Glucose , Office (80127) Blood Glucose , Office 120 (Normal) :21 HgA1C , Office (85086) HgA1C , Office 5.6 % (Normal) Range: [...] : Follow up in 3 months for [facility] Med Indication: BMI 31.0-31.9,adult BMI 31.0-31.9,adult [...] Cellulitis of left lower leg : Reviewed Net Sql Developer Letter Indication: Cellulitis of left lower leg [...] mellitus type II, controlled Planned Observations CALCIFEDIOL (77557)Indication: Vitamin D deficiency, unspecified On: 96-Xsu-229495:06 Request HgA1C , Office (71501)Indication: Diabetes mellitus type II, controlled On: :02 Request Blood Glucose , Office (77915)Indication: Diabetes mellitus type II, controlled On: :02 Request Metabolic Panel, Basic (91593)Indication: Abdominal pain On: 8-Tjo-906091:30 Request CBC, Platelets & Auto Diff (53482)Indication: Abdominal pain On: 3-Xer-394880:29 Request CBC WITH MANUAL DIFF (89281)Indication: Anemia On: 97-Zmy-920441:56 Request CBC WITH MANUAL DIFF (53585)Indication: Bleeding ulcer On: 88-Gji-711191:49 Request URINALYSIS, W/ MICRO (13607)Indication: Hypertension, benign On: 97-Tac-844655:21 Request METABOLIC PANEL, COMPREHENSIVE (95476)Indication: Hypertension, benign On: :21 Request LIPID PANEL (64913)Indication: Hypertension, benign On: : Request CBC with auto diff (91887)Indication: Hypertension, benign On: : Request CALCIFIDIOL (31290) VIT D 25Indication: Vitamin D deficiency, unspecified On: : Request CALCIFIDIOL (59887) VIT D 25Indication: Vitamin D deficiency, unspecified On: :29 Request PT (Prothrobim Time) (11499)Indication: prison current use of 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 therapy On: : Request Comments: standing order for prn checks URINALYSIS, W/ MICRO (09686)Indication: Diabetes mellitus type II, controlled On: : Request METABOLIC PANEL, COMPREHENSIVE (51251)Indication: Diabetes mellitus type II, controlled On: : Request LIPID PANEL (51775)Indication: Diabetes mellitus type II, controlled On: :28 Request CBC WITH MANUAL DIFF (20660)Indication: Diabetes mellitus type II, controlled On: :28 Request PT (Prothrobim Time) (03589)Indication: History of DVT (deep vein thrombosis) On: 72-Zei-17707:04 Request Comments: standing order METABOLIC PANEL, COMPREHENSIVE ([id number])Indication: Diabetes mellitus type II, controlled On: :20 Request LIPID PANEL ([id number])Indication: Diabetes mellitus type II, controlled On: :20 Request CBC WITH MANUAL DIFF ([id number])Indication: Diabetes mellitus type II, controlled On: 48-Dvo-142813:20 Request PT (Prothrobim Time) ([id number])Indication: prison current use of 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 therapy On: 93-Boq-708101:55 Request CALCIFIDIOL (80518) VIT D 25Indication: Vitamin D deficiency, unspecified On: 12-Vok-207221:35 Request MICROALBUMIN: CREATININE RATIO ([id number]) AND ([id number])Indication: Diabetes mellitus type II, controlled On: 63-Prx-131848:35 Request METABOLIC PANEL, COMPREHENSIVE ([id number])Indication: Diabetes mellitus type II, controlled On: 85-Ddo-210219:35 Request LIPID PANEL ([id number])Indication: Diabetes mellitus type II, controlled On: 73-Zmt-983371:35 Request CBC WITH MANUAL DIFF ([id number])Indication: Diabetes mellitus type II, controlled On: 96-Crx-639658:35 Request CAMERNO CULTURE-OTHER ([id number])Indication: Cellulitis, umbilical On: 48-Oxw-132377:06 Request PARATHORMONE ([id number])Indication: Hypercalcemia On: 4-Ejq-831470:56 Request CALCIUM SERUM ([id number])Indication: Hypercalcemia On: 7-Ihe-684624:56 Request Blood Glucose , Office ([id number])Indication: Diabetes mellitus type II, controlled On: 4-Sjv-127906:26 Request Metabolic Panel, Basic (52774)Indication: Swelling of limb On: 94-Weu-78034:39 Request Metabolic Panel, Basic (97989)Indication: Diabetes mellitus type II, controlled On: 91-Ztl-280172:48 Request MICROALBUMIN: CREATININE RATIO (00334) AND ([id number])Indication: Diabetes mellitus type II, controlled On: 35-Ygj-051994:48 Request CALCIFIDIOL (01930) VIT D 25Indication: Vitamin D deficiency, unspecified On: 03-Toe-557335:46 Request CALCIFIDIOL (25845) VIT D 25Indication: Vitamin D deficiency, unspecified On: 49-Gpp-298887:42 Request MICROALBUMIN: CREATININE RATIO ([id number]) AND (08025)Indication: Diabetes mellitus type II, controlled On: 60-Hub-508272:42 Request METABOLIC PANEL, COMPREHENSIVE (54946)Indication: Diabetes mellitus type II, controlled On: 42-Fsn-184040:42 Request LIPID PANEL ([id number])Indication: Diabetes mellitus type II, controlled On: 55-Rgw-888816:42 Request CBC WITH MANUAL DIFF ([id number])Indication: Diabetes mellitus type II, controlled On: 94-Zfn-533630:42 Request METABOLIC PANEL, COMPREHENSIVE (17266)Indication: Hypercholesteremia On: 0-Fvp-315206:08 Request LIPID PANEL ([id number])Indication: Hypercholesteremia On: 7-Vdk-299495:08 Request CALCIFIDIOL (81350) VIT D 25Indication: Vitamin D deficiency, unspecified On: : Request Comments: in three months (approximately) CBC WITH MANUAL DIFF ([id number])Indication: Diabetes mellitus type II, controlled On: Request Comments: in three months (approximately) MICROALBUMIN: CREATININE RATIO (37313) AND ([id number])Indication: Diabetes mellitus type II, controlled On: : Request METABOLIC PANEL, COMPREHENSIVE ([id number])Indication: Diabetes mellitus type II, controlled On: : Request LIPID PANEL ([id number])Indication: Diabetes mellitus type II, controlled On: : Request PT (Prothrobim Time) (38109)Indication: Deep vein thrombosis, unspecified laterality On: Request Comments: monday CBC (Auto) ([id number])Indication: Deep vein thrombosis, unspecified laterality On: Request Comments: monday PT (Prothrobim Time) ([id number])Indication: Deep vein thrombosis, unspecified laterality On: 32 Request Comments: standing order OVA & PARASITE DIR SMEAR ([id number])Indication: Diarrhea On: 34 Request OCCULT BLOOD FECES SCREEN ([id number])Indication: Diarrhea On: 34 Request LEUKOCYTE COUNT, FECAL (10512)Indication: Diarrhea On: 34 Request C-DIFFICILE, STOOL (46930)Indication: Diarrhea On: Request CAMERON CULTURE-STOOL (02028)Indication: Diarrhea On: 34 Request CALCIFIDIOL (60467) VIT D 25Indication: Vitamin D deficiency, unspecified On: :09 Request MICROALBUMIN: CREATININE RATIO (01106) AND ([id number])Indication: Diabetes mellitus type II, controlled On: : Request METABOLIC PANEL, COMPREHENSIVE ([id number])Indication: Diabetes mellitus type II, controlled On: : Request LIPID PANEL ([id number])Indication: Diabetes mellitus type II, controlled On: : Request CBC WITH MANUAL DIFF ([id number])Indication: Diabetes mellitus type II, controlled On: 46-Xpi-252696:06 Request MICROALBUMIN: CREATININE RATIO (40130) AND ([id number])Indication: Diabetes mellitus type II, controlled On: 7-Ebb-789886:16 Request CALCIFIDIOL (88701) VIT D 25Indication: Vitamin D deficiency, unspecified On: 3-Vmw-833667:16 Request METABOLIC PANEL, COMPREHENSIVE (91689)Indication: Diabetes mellitus type II, controlled On: 8-Yeb-866797:15 Request LIPID PANEL (70743)Indication: Hypercholesteremia On: 2-Mds-248332:15 Request TSH (15903)Indication: Hypercholesteremia On: 89-Dxt-172129:58 Request Comments: hair thinning HEPATIC FUNCTION PANEL (09139)Indication: Hypercholesteremia On: 65-Pzp-251250:58 Request LIPID PANEL (02556)Indication: Hypercholesteremia On: 57-Dxj-966792:58 Request HgA1C , Office (06833)Indication: Diabetes mellitus type II, controlled On: 98-Gsp-261090:52 Request Methylmalonic acid, serum 43461Koxdvxfmzs: Abnormal blood chemistry On: 63-Iji-011188:26 Request CALCIFIDIOL ([id number]) VIT D 25Indication: Abnormal blood chemistry On: 61-Fsh-428488:26 Request Urine Protein Electrophoresis (UPEP) ([id number])Indication: Abnormal blood chemistry On: 14-Uid-514727:26 Request Serum Protein Electrophoresis (SPEP) ([id number])Indication: Abnormal blood chemistry On: 17-Ioy-662702:26 Request LIPID PANEL (80150)Indication: Diabetes mellitus type II, controlled On: 05-Oxe-748667:22 Request METABOLIC PANEL, COMPREHENSIVE ([id number])Indication: Diabetes mellitus type II, controlled On: 18-Loe-335928:22 Request CBC WITH MANUAL DIFF ([id number])Indication: Diabetes mellitus type II, controlled On: 56-Dxn-638249:22 Request Comments: in three months (approximately) MICROALBUMIN: CREATININE RATIO (97804) AND ([id number])Indication: Diabetes mellitus type II, controlled On: 42-Yxi-204077:22 Request Metabolic Panel, Comprehensive (92053)Indication: Hypercholesteremia On: 24-Hml-289025:45 Request Lipid Panel ([id number])Indication: Hypercholesteremia On: 11-Hsa-592808:45 Request HEPATIC FUNCTION PANEL ([id number])Indication: Hypercholesteremia On: 86-Bhb-519888:12 Request Lipid Panel ([id number])Indication: Hypercholesteremia On: 80-Jvl-361032:11 Request Comments: in three months (approximately) HgA1C , Office (82653)Indication: Diabetes mellitus type II, controlled On: 07-Drt-741422:38 Request HEPATIC FUNCTION PANEL (57163)Indication: Hypercholesteremia On: :40 Request Lipid Panel ([id number])Indication: Hypercholesteremia On: :40 Request MICROALBUMIN: CREATININE RATIO (42905) AND (54416)Indication: Diabetes mellitus type II, controlled On: :29 Request LIPID PANEL ([id number])Indication: Diabetes mellitus type II, controlled On: :29 Request METABOLIC PANEL, COMPREHENSIVE ([id number])Indication: Diabetes mellitus type II, controlled On: :29 Request CBC WITH MANUAL DIFF ([id number])Indication: Diabetes mellitus type II, controlled On: 97-Syu-522473:29 Request METABOLIC PANEL, COMPREHENSIVE (31480)Indication: Diabetes mellitus type II, controlled On: 86-Wzg-378798:19 Request MICROALBUMIN: CREATININE RATIO ([id number]) AND ([id number])Indication: Diabetes mellitus type II, controlled On: 32-Dyr-758607:19 Request LIPID PANEL ([id number])Indication: Diabetes mellitus type II, controlled On: 56-Naa-654169:19 Request CBC WITH MANUAL DIFF ([id number])Indication: Diabetes mellitus type II, controlled On: 22-Pdj-246774:19 Request FECAL OCCULT HGB ASSAY- tubes sent home ([id number])Indication: Well woman exam with routine gynecological exam On: 71-Hii-554733:13 Request Thin prep Pap ([id number])Indication: Well woman exam with routine gynecological exam On: 93-Hom-782530:13 Request URINE CAMERON CULTURE-HAIDER COL COUNT On: 76-Veo-495192:10 Request ([id number]) HEPATIC FUNCTION PANEL ([id number])Indication: Hypercholesteremia On: 10-Kny-245055:33 Request Comments: in six months LIPID PANEL ([id number])Indication: Hypercholesteremia On: 89-Int-371529:33 Request Planned Encounters Medical; 1 Week FU - On: 25-Apr-2018 13:30 [facility] Nellypoptatum RODRIGUEZ Lesly Chatman Nellypoptatum RODRIGUEZ [facility]; General Medical - On: 21-May-2018 10:45 [facility] Nellypoptatum RODRIGUEZ Lesly Chatman Nellypoptatum RODRIGUEZ Lesly Chatman Planned Procedures DEXA SCAN AXIAL SKELETON ([id number])By: On: 19-Mar-2018 Intent Mihaela RODRIGUEZ Lesly Chatman Mihaela RODRIGUEZ Fátima SCREENING DIGITAL TOMOSYNTHESIS OF On: 19-Mar-2018 Intent BREAST ([id number])By: Mihaela RODRIGUEZ FátimaCompa Chairez CNP Fátima SCREENING DIGITAL TOMOSYNTHESIS OF On: 12-Feb-2018 Intent BREAST ([id number])By: Mihaela RODRIGUEZ Fátima Comments: after Mar 09 2018 Mihaela RODRIGUEZ Fátima DEXA SCAN AXIAL SKELETON ([id number])By: On: 12-Feb-2018 Intent Mihaela RODRIGUEZ Lesly Chatman Mihaela RODRIGUEZ [facility] Radiology - Hip - RightBy: Mihaela On: 12-Feb-2018 Intent MICHAELLesly Mihaela RODRIGUEZ Lesly Chatman Flu Vaccine (Quadrivalent) 56823Gi: On: 12-Feb-2018 Intent Nellypoptatum RODRIGUEZ Lesly Chatman Nellypoptatum RODRIGUEZ Lesly Chatman Comments: Lot #[id number]-L dltd, IMDose prefilled syringegiven by: ELVIN ELIAS [...] Elgin Miller Comments: Vitamin b12 1000mcg injection lot:[id number]:10/2018R DELT IMpt tolerated well MSMITH,COLLAR PACKER B 12 Injection, 1000 mcg ([id number])By: On: 17-Aug-2017 Intent Lesly Chairez CNP, CNP, Mary E Comments: vitamin b12 1000mcg injectionlot: [id number]: 10/2018L DELT IMpt tolerated wellAD COLLAR PACKER B 12 Injection, 1000 mcg (J3420)By: On: 07-Aug-2017 Intent Visit, Nurse Comments: Lot #[id number]-10/2018Site- Left dtld, IMDose-prefilled syringegiven by:ELVIN Woo signed B 12 Injection, 1000 mcg (J3420)By: On: 02-Aug-2017 Intent Lesly Chairez CNP, CNP, Mary E Flu Vaccine (Quadrivalent) 44066Mf: On: 13-Mar-2017 Intent Lesly Chairez CNP, CNP, Mary E Comments: InfluenzaLot #[id number]-L dltd, IMDose prefilled syringeVIS and ABN signedgiven by:DAVID de paz MAMMOGRAM BREAST BILATERAL On: 27-Feb-2017 Intent SCREENING DIGITAL (67552)By: Mihaela RODRIGUEZ Lesly Chatman Nellyfawn MICHAEL Lesly Chatman MRI OF LUMBAR SPINE WITH AND On: 28-Nov-2016 Intent WITHOUT CONTRAST ([id number])By: Nellyfawn RODRIGUEZ Lesly Chairez CNP Lesly Chatman Radiology - Lumbar SpineBy: Mihaela On: 19-Sep-2016 Intent Lesly RODRIGUEZ CNP, Mary E Radiology - Humerus - RightBy: On: 08-Apr-2016 Intent Lesly Chairez CNP, CNP, Mary E Solu -Medrol Injection, 125 mg On: 08-Apr-2016 Intent (J2930)By: Mihaela RODRIGUEZ Lesly Chairez CNP Lesly Chatman Solu- Medrol Injection, 125mg On: 24-Mar-2016 Intent (J2930)By: Wendy June DO Comments: Lot:[id number]:10/2018Dose:125mgRoute:imSite:r hipGiven By:Gaurang signed Flu Vaccine (Quadrivalent) 61235Ky: On: 29-Feb-2016 Intent Visit, Nurse Comments: Lot #[id number]/17ite-L dltd, IMDose prefilled syringegiven by:ELVIN Woo and ABN signed BILATERAL MAMMOGRAMS ([id number])By: On: 15-Feb-2016 Intent Lesly Chairez CNP, CNP Lesly Chatman Kenalog Injection, 10 mgm On: 18-Jan-2016 Intent (J3301)By: Mihaela RODRIGUEZ Lesly Chairez CNP Lesly Chatman DRAIN/INJECT SMALL JOINT OR BURSA On: 18-Jan-2016 Intent ([id number])By: Mihaela RODRIGUEZ Lesly Chairez CNP Lesly Chatman Radiology - Lumbar SpineBy: Nellyesa On: 07-Sep-2015 Intent Lesly RODRIGUEZ CNP, Mary E Toradol Injection, 30 mg On: 07-Sep-2015 Intent (J1885)By: Mihaela RODRIGUEZ Lesly Chairez Comments: Lot:[id number]:08/03/16Dose:30mgRoute:imSite:r hipGiven By:JUNG signed Lesly RODRIGUEZ MRI - Shoulder(s) - RightBy: Mihaela On: 03-Aug-2015 Intent Lesly RODRIGUEZ CNP, Mary E Radiology - Shoulder - RightBy: On: 03-Aug-2015 Intent Lesly Chairez CNP, CNP Lesly Chatman ADMINISTRATION OF INFLUENZA VIRUS On: 02-Mar-2015 Intent VACCINE (G0008)By: Akosua Enrique MD Flu Vaccine (Quadrivalent) 00386Sx: On: 02-Mar-2015 Intent Akosua Enrique MD Comments: Lot #:[id number] date:Amount given:0.5mlRoute: IMSite given:L DltdGiven by: Jung and ANGIE signed Quad Flu Wax CurettesBy: Akosua Enrique MD On: 27-Nov-2014 Intent Ear Irrigation (78383)By: Elana On: 27-Nov-2014 Intent Akosua BAUTISTA MAMMOGRAM, SCREENING, BOTH BREAST On: 27-Nov-2014 Intent (12313)By: Akosua Enrique MD Prevnar 13 (76261)By: Maryam HERNANDEZ, On: 28-Apr-2014 Intent Maria T Comments: [id number] arm, IMAS ADMINISTRATION OF INFLUENZA VIRUS On: 31-Mar-2014 Intent VACCINE (G0008)By: Akosua Enrique MD Comments: [id number] syringeL Dltd, IMAS, LPNABN and VIS signed M FLU VAC, SPLIT, >3 YEARS, INTRAMUSC On: 31-Mar-2014 Intent (50162)By: Maria T Francisco LPN BILATERAL MAMMOGRAMS ([id number])By: On: 06-Feb-2014 Intent Akosua Enrique MD MAMMOGRAM, SCREENING, BOTH BREAST On: 23-Dec-2013 Intent (45545)By: Akosua Enrique MD Eprescribed prescriptions On: 29-Apr-2013 Intent (G8553)By: Akosua Enrique MD Eprescribed prescriptions On: 08-Apr-2013 Intent (G8553)By: Akosua Enrique MD DXA, BONE DENSITY, AXIAL SKELETON On: 08-Apr-2013 Intent (92065)By: Akosua Enrique MD Comments: postmenapausal FLU VAC, SPLIT, >3 YEARS, INTRAMUSC On: 08-Mar-2013 Intent (90961)By: Wendy June DO Comments: Lot:[id number]:6.14Amt:0.5mlRoute:IMSite: L DltdGiven By: DAVID BookerVIS signed ADMINISTRATION OF INFLUENZA VIRUS On: 08-Mar-2013 Intent VACCINE (G0008)By: Wendy June DO Rocephon Injection, 2 Gm On: 28-Feb-2013 Intent (J0696)By: Wendy June DO Comments: im lt and rt hip 2.5 ml each [id number] exp 09/04/15 Eprescribed prescriptions On: 07-Feb-2013 Intent (G8553)By: Randa Aldana LPN Eprescribed prescriptions On: 24-Dec-2012 Intent (G8553)By: Lesly Chairez CNP, CNP, Mary E MAMMOGRAM, SCREENING, BOTH BREASTS On: 08-Oct-2012 Intent (30620)By: Akosua Enrique MD Eprescribed prescriptions On: 08-Oct-2012 [...] SPLIT, >3 YEARS, INTRAMUSC On: 20-Feb-2012 Intent (00278)By: Myrna Townsend Comments: Lot:[id number]:6.30.13Dose:prefilledRoute:IMSite:L DltdGiven By:JUNG signed ADMINISTRATION OF INFLUENZA VIRUS On: 20-Feb-2012 Intent VACCINE (G0008)By: Myrna Townsend ADMINISTRATION OF INFLUENZA VIRUS On: 20-Feb-2012 Intent VACCINE (G0008)By: MATT Maloney FLU VAC, SPLIT, >3 YEARS, INTRAMUSC On: 20-Feb-2012 Intent (94499)By: MATT Maloney MAMMOGRAM, SCREENING, BOTH BREASTS On: 24-Jan-2012 Intent (91611)By: Akosua Enrique MD Ultrasound - AortaBy: Elana BAUTISTA, On: 14-Nov-2011 Intent Akosua Lackey Kenalog Injection, 10 mgm On: 24-Oct-2011 Intent (J3301)By: Akosua Enrique MD Kenalog Injection, 10 mgm On: 24-Oct-2011 Intent (J3301)By: Akosua Enrique MD Kenalog Injection, 10 mgm On: 24-Oct-2011 Intent (J3301)By: Akosua Enrique MD Kenalog Injection, 10 mgm On: 24-Oct-2011 Intent (J3301)By: Akosua Enrique MD EKG ([id number])By: Akosua Enrique MD On: 08-Aug-2011 Intent Eprescribed prescriptions On: 08-Aug-2011 Intent (G8553)By: Akosua Enrique MD INFUSION, NORMAL SALINE SOLUTION , On: 05-Jul-2011 Intent 250 CC (J7050)By: Mihaela RODRIGUEZ, Fátima Cifawn HOTEL CLERK, Fátima FLU VAC, SPLIT, >3 YEARS, INTRAMUSC On: 02-May-2011 Intent (25744)By: Akosua Enrique MD Comments: had done ADMINISTRATION OF INFLUENZA VIRUS On: 28-Feb-2011 Intent VACCINE (G0008)By: Akosua Enrique MD FLU VAC, SPLIT, >3 YEARS, INTRAMUSC On: 28-Feb-2011 Intent (01626)By: Akosua Enrique MD Eprescribed prescriptions On: 28-Feb-2011 [...] - Small Bowel Series On: 06-Jan-2011 Intent (09729)By: Akosua Enrique MD EKG ([id number])By: Akosua Enrique MD On: 28-Jun-2010 Intent MAMMOGRAM, SCREENING, BOTH BREASTS On: 28-Jun-2010 Intent (43539)By: Akosua Enrique MD FLU VAC, SPLIT, >3 YEARS, INTRAMUSC On: 29-Mar-2010 Intent (33017)By: Ana Candelario Comments: Lot:[id number] 4pExp:09/2010Dose:0.5mlRoute:IMSite:Left Deltoid Given by: WALESKA Valerio ADMINISTRATION OF INFLUENZA VIRUS On: 29-Mar-2010 Intent VACCINE (G0008)By: Andree Ana EKG (46477)By: Akosua Enrique MD On: 24-Apr-2009 Intent IMMUNIZ ADMNIN, 1 VAC, SNGL/COMBO On: 11-Mar-2009 Intent (04784)By: Ladonna Briggs RN FLU VAC, SPLIT, >3 YEARS, INTRAMUSC On: 11-Mar-2009 Intent (44850)By: Ladonna Briggs RN Breast Diagnostic - RightBy: On: 23-Dec-2008 Intent Akosua Enrique MD Breast Screening - LeftBy: Elana On: 23-Dec-2008 Intent Akosua BAUTISTA Breast Diagnostic - RightBy: On: 15-Jul-2008 Intent Akosua Enrique MD Comments: 11-11 FLU VAC, SPLIT, >3 YEARS, INTRAMUSC On: 25-Mar-2008 Intent (02469)By: Alexa Metz ADMINISTRATION OF INFLUENZA VIRUS On: 25-Mar-2008 Intent VACCINE (G0008)By: Alexa Metz EKG (33271)By: Akosua Enrique MD On: 04-Mar-2008 Intent MAMMOGRAM, SCREENING, BOTH BREASTS On: 04-Mar-2008 Intent ([id number])By: Akosua Enrique MD Venous Doppler - BothBy: Elana On: 14-Aug-2007 Intent Akosua BAUTISTA Comments: lower legs EKG (79312)By: Akosua Enrique MD On: 15-Feb-2007 Intent Bone Density StudyBy: Jovan, On: 28-Dec-2006 Intent Randa MAMMOGRAM, SCREENING, BOTH BREASTS On: 28-Dec-2006 Intent (00880)By: Akosua Enrique MD SPECIMEN HANDLING/TRANSPORT On: 29-Sep-2006 Intent (04737)By: Akosua Enrique MD FLU VAC, SPLIT, >3 YEARS, INTRAMUSC On: 04-Apr-2006 Intent (98681)By: Alexa Joseph ADMINISTRATION OF INFLUENZA VIRUS On: 04-Apr-2006 Intent VACCINE (G0008)By: Alexa Joseph FLU VAC, SPLIT, >3 YEARS, INTRAMUSC On: 28-Mar-2006 Intent (47462)By: Akosua Enrique MD Planned Medications INFUSION, NORMAL SALINE SOLUTION , 250 CC Ordered: 05-Jul-2011 Pending Ciesa HOTEL CLERK, Fátima Ciesa HOTEL CLERK, Fátima INJECTION, CEFTRIAXONE SODIUM, PER 250 MG Ordered: 28-Feb-2013 Pending Shaylee DO, Wendy INJECTION, KETOROLAC TROMETHAMINE, PER 15 MG Ordered: 07-Sep-2015 Pending Ciesa HOTEL CLERK, Fátima Ciesa HOTEL CLERK, Fátima INJECTION, METHYLPREDNISOLONE SODIUM SUCCINATE, UP TO 125 MG Ordered: 08-Apr-2016 Pending Ciesa HOTEL CLERK, Fátima Ciesa HOTEL CLERK, Fátima INJECTION, METHYLPREDNISOLONE SODIUM SUCCINATE, UP TO 125 MG Ordered: 24-Mar-2016 Pending Shaylee DO, Wendy INJECTION, TRIAMCINOLONE ACETONIDE, NOT OTHERWISE SPECIFIED, 10 MG Ordered: 18-Jan-2011 Pending Akosua Enrique MD INJECTION, TRIAMCINOLONE ACETONIDE, NOT OTHERWISE SPECIFIED, 10 MG Ordered: 18-Jan-2016 Pending Ciesa HOTEL CLERK, Fátima Ciesa HOTEL CLERK, Fátima INJECTION, TRIAMCINOLONE ACETONIDE, NOT OTHERWISE SPECIFIED, [...] thrombosis) : DISCONTINUED - PT (PROTHROMBIN TIME) (31040) Indication: History of DVT (deep vein thrombosis) prison current use of 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 therapy : DISCONTINUED - PT (PROTHROMBIN TIME) (18135) 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 The patient huang s noticed lack of energy and thinking most people are better off than them. Other providers contributing to the patient's care are medical numerical control operator (dr. martinez) and purchasing analyst (dr. roper). 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 The patient has noticed lack of energy. Other providers contributing to the patient's care are gastrologist (Dr. Oates ) and other: (Opthalm: Dr. Hebetr ).Encounter Diagnosis: Encounter for Medicare annual wellness exam, Venous (peripheral) insufficiency, BMI 33.0-33.9,adult, Diabetes mellitus type II, controlled, Degenerative disc disease, Coronary artery disease, prison current use of 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 therapy, Encounter for [...] Medicare (V76.2) (Renamed from [facility] Woman Exam , Medicare (V76.2, V72.31)), arthritis,unspecified [...] providers contributing to the patient's care are medical numerical control operator (Dr. Martinez) and other: (Glaucoma screens [...] patient does not have durable power of international trade teacher o r living will. The patient has noticed lack of energy. Other providers contributing to the patient's care are purchasing analyst.Encounter Diagnosis: Annual Medicare Physical (V70.0), Itching (698.9) [...] Nutrition: balanced diet and supplemental vitamins. The nj dical issues the patient is following up for include blood sugar issues, cardiac issues, gastric reflux, high blood pressure, high cholesterol and other (chronic dermatitis, DDD, IBS, venous insuff., vitamin d def., glaucoma, hx. DVT, obesity ). Encounter Diagnosis: Diabetes, Type II, controlled (250.00), Vitamin D deficiency, unspecified (268.9), Well Woman Exam , Medicare (V76.2) (Renamed from [facility] Woman Exam , Medicare (V76.2, V72.31)), Irritable [...] Swelling of limb (729.81), Sleep disorder (780.50), [facility] Office Visit On: 09-Oct-2007 [...]
--- OUTSIDE RECORDS SUMMARY | 2018-06-12 22:51 | XMS RPT_ITS ---
:1940 Author Organization [employer] Name Relationship Address Phone ERVIN ANNIE Unavailable [phone] + [place] [address] [employer] Unavailable [address] + [place] [address] ANNIE MUELLER Unavailable [address] + [place] [address] [employer] Unavailable [address] + [place] [address] ANNIE MUELLER Unavailable [address] + [place] [address] [employer] Unavailable [address] + [place] [address] ANNIE MUELLER Unavailable [address] + [place] [address] [employer] Unavailable [address] + [place] [address] ANNIE MUELLER Unavailable [address] [phone] [place] [address] [employer] Unavailable [address] + [place] [address] ANNIE MUELLER Unavailable . [phone] [place] [address] [employer] Unavailable [address] + [place] [address] [employer] Unavailable [address] + [place] [address] ANNIE MUELLER Unavailable . [phone] [place] [address] [employer] Unavailable [address] + [place] [address] PATRICIA MCGRATHA Unavailable [address] + [place] [address] ANNIE MUELLER Unavailable . [phone] [place] [address] [employer] Unavailable [address] + [place] [address] RAMILA MARYAM Unavailable [address] + [place] [address] Care Team Providers Name Role Phone Lesly Chairez Attending Unavailable Mihaela, Lesly Referring Unavailable Mihaela, Lesly Consulting Unavailable Lila Costa Attending Unavailable Samantha Oliveros Attending Unavailable Serenity Villarreal Attending Unavailable Nellyesa, Lesly Referring Unavailable Ciesa, Lesly Primary Care Unavailable Ciesa, Lesly Attending Unavailable Ciesa, Lesly Referring Unavailable Ciesa, Lesly Primary Care Unavailable Ciesa, Lesly Attending Unavailable Ciesa, Lesly Referring Unavailable Ciesa, Lesly Primary Care Unavailable Ciesa, Lesly Attending Unavailable Ciesa, Lesly Primary Care Unavailable Bao Brothers Attending Unavailable Ciesa, Lesly Primary Care Unavailable Bao Brothers Referring Unavailable Bao Brothers Attending Unavailable Bao Brothers Referring Unavailable Ciesa, Lesly Primary Care Unavailable PROBLEMS PROBLEMS DATE TYPE CONDITION / CODE ATTENDING STATUS SOURCE 03/22/2018 Unknown M81.0 - Age-related Lesly Chairez osteoporosis without Community current pathological Hospital fracture / Repository M81.0(ICD-10) 03/22/2018 Unknown Z12.31 - Encounter Lesly Chairez for screening Community mammogram for Hospital malignant neoplasm of Repository breast / Z12.31(ICD-10) 09/21/2017 Unknown R00.2 - Palpitations Regis Villarreal / R00.2(ICD-10) [facility] Repository 09/21/2017 Unknown I25.10 - Regis Villarreal Atherosclerotic heart [facility] disease [facility] coronary artery Repository without angina pectoris / I25.10(ICD-10) PROCEDURES PROCEDURES No Procedure Records FoundRESULTS RESULTS WOUND CTR HISTORY Observed: 05/22/2018 Status: F Source: DANIKA AND PHYSICAL 11:41 AM [facility] REPOSITORY [facility] Wound Healing Center [address] [place] [address] Wound Ctr History AND Physical 05/22/18 1114 MR#: [id number] Acct: [id number] Name: BRISSA ARRIAGA Rep #: [id number] : 1940 77 From: Bao Brothers MD PCP: Lesly Chairez NP Status: REG RCR Y Location: (1) GERD (gastroesophageal reflux disease) Status: Chronic Current Visit: Yes Code(s): K21.9 - Gastro- esophageal reflux disease without esophagitis (2) Osteoarthritis Status: Chronic Current Visit: No Code(s): M19.90 - Unspecified osteoarthritis, unspecified site (3) Edema of both legs Status: Chronic Current Visit: Yes Code(s): R60.0 - Localized edema (4) Hiatal hernia Status: Chronic Current Visit: No Code(s): K44.9 - Diaphragmatic hernia without obstruction or gangrene (5) Venous stasis ulcer Status: Chronic Current Visit: Yes Qualifiers: Venous stasis ulcer site: calf Varicose vein presence: with varicose veins Laterality: left Non-pressure ulcer stage: with fat layer exposed Qualified Code(s): I83.022 - Varicose veins of left lower extremity with ulcer of calf; L97.222 - Non-pressure chronic ulcer of left calf with fat layer exposed Code(s): I83.009 - Varicose veins of unspecified lower extremity with ulcer of unspecified site; L97.909 - Non-pressure chronic ulcer of unspecified part of unspecified lower leg with unspecified severity (6) Abnormal exercise myocardial perfusion study Status: Chronic Current Visit: No Code(s): R94.39 - Abnormal result of other cardiovascular function study (7) Palpitations Status: Chronic Current Visit: No Code(s): R00.2 - Palpitations (8) Rectal fistula Status: Chronic Current Visit: No Code(s): K60.4 - Rectal fistula Comment: 1960 (9) Atherosclerotic heart disease of [place] coronary artery without angina pectoris Status: Chronic Current Visit: No Qualifiers: Code(s): I25.10 - Atherosclerotic heart disease of [place] coronary artery without angina pectoris (10) Failure to thrive Status: Chronic Current Visit: Yes Code(s): [id number] - (11) Positional vertigo Status: Chronic Current Visit: No Code(s): H81.10 - Benign paroxysmal vertigo, unspecified ear (12) Obesity Status: Chronic Current Visit: No Code(s): E66.9 - Obesity, unspecified (13) Hx of venous thrombosis and embolism Status: Chronic Current Visit: No Code(s): Z86.718 - Personal history of other venous thrombosis and embolism (14) history of cellulitis of leg Status: Chronic Current Visit: Yes (15) Leg swelling Status: Chronic Current Visit: Yes Code(s): M79.89 - Other specified soft tissue disorders (16) Hyperpigmentation of skin Status: Chronic Current Visit: Yes Code(s): L81.9 - Disorder of pigmentation, unspecified (17) Lipodermatosclerosis Status: Chronic Current Visit: Yes Code(s): I83.10 - Varicose veins of unspecified lower extremity with inflammation (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 Current Visit: Yes Code(s): I87.093 - Postthrombotic syndrome with other complications of bilateral lower extremity (19) Chronic venous hypertension (idiopathic) with inflammation of bilateral lower extremity Status: Chronic Current Visit: Yes Code(s): I87.323 - Chronic venous hypertension (idiopathic) with inflammation of bilateral lower extremity (20) Localized edema Status: Chronic Current Visit: Yes Code(s): R60.0 - Localized edema (21) Non-pressure chronic ulcer of left calf with fat layer exposed Status: Resolved Current Visit: Yes Code(s): L97.222 - Non-pressure chronic ulcer of left calf with fat layer exposed (22) 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 Current Visit: No Code(s): E11.59 - Type 2 diabetes mellitus with other circulatory complications (23) Generalized weakness Status: Chronic Current Visit: No Code(s): R53.1 - Weakness (24) Hyperlipidemia Status: Chronic Current Visit: No Qualifiers: Code(s): E78.5 - Hyperlipidemia, unspecified (25) Diabetes Status: Chronic Current Visit: No Qualifiers: Diabetes mellitus type: type 2 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 care home use Diabetes mellitus complication status: without complication Qualified Code(s): E11.9 - Type 2 diabetes mellitus without complications Code(s): E11.9 - Type 2 diabetes mellitus without complications (26) Hypertension Status: Chronic Current Visit: No Qualifiers: Code(s): I10 - Essential (primary) hypertension (27) Chronic venous hypertension (idiopathic) with ulcer of left lower extremity Status: Chronic Current Visit: Yes Code(s): I87.312 - Chronic venous hypertension (idiopathic) with ulcer of left lower extremity (28) Chronic venous stasis dermatitis Status: Chronic Current Visit: Yes Code(s): I87.2 - Venous insufficiency (chronic) (peripheral) (29) Non-pressure chronic ulcer of left ankle with fat layer exposed Status: Resolved Current Visit: Yes Code(s): L97.322 - Non-pressure chronic ulcer of left ankle with fat layer exposed (30) 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 Status: Chronic Current Visit: No Code(s): I70.249 - Atherosclerosis of [place] arteries of left leg with ulceration of unspecified site (31) Type 2 diabetes mellitus Status: Chronic Current Visit: No Code(s): E11.9 - Type 2 diabetes mellitus without complications (32) Pressure ulcer of right buttock, stage 3 Status: Acute Current Visit: Yes Code(s): L89.313 - Pressure ulcer of right buttock, stage 3 History of Present Illness Chief Complaint: Here for nurse visit but is complaining about burning and pain in her left buttocks ulcer History of Wound: This is a 77-year-old white female that has history of those buttocks ulcer approximately 2 years ago and closed it on her own with bag balm has recurrent opening that is been trying to take care of her to self with [id number] zinc oxide. Patient complains of increased pain and burning and unable to take it anymore. She has a small opening on her left buttocks cheek that is tender to palpate erythematous around the edges has a crusted yellow slough across it. 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) Failure [...] diabetes mellitus (Chronic) Surgical History: - - 2009 had [...] 09/21/17 11:28) Unknown neomycin sulfate [From Neosporin ([id number])] Allergy (Verified 09/21/17 11:28) Itching polymyxin B [...] 11:46 05/18/18 11:46 05/18/18 11:46 05/18/18 11:46 General: Alert, Oriented x3, Cooperative, No apparent distress, Well developed, Well nourished HEENT: Atraumatic, PERRLA, EOMI, Normocephalic Oral: Moist Mucosa Neck: No JVD Lungs: Normal air movement Abdomen: Non-Distended Extremities: No clubbing, No cyanosis, No Calf Tenderness, - - The ulcerations of the left lower extremity are now completely healed and epithelialized. Chronic hyperpigmentation and lipodermatosclerosis persist in the left lower extremity. There is no significant swelling in the left lower extremity, having removed the patient's Unna boots upon her arrival today. Skin: - - A stage III pressure ulceration is noted on the left buttock. The base of the ulceration is generally pink and healthy in appearance. There is no sign of infection or cellulitis. Dimensions are documented elsewhere. Wound Measurements and Assessment WC - Nurse 1 - General Ulcer Measurement Start: 05/08/18 09:50 Freq: Status: Active Protocol: Activity Type Activity Date Activity User E-Sign Co-Sign Detail Recorded Client Recorded Date Recorded By Document 05/22/18 09:51 IZZY [id number] 05/22/18 10:02 IZZY Wound Center Nurse 1 [Ulcer Assessment] #3- LT BUTTOCK -Combined with other wound No -Current Size (cm) - Length 0.7 -Current Size (cm) - Width 0.6 -Current Size (cm) - Depth 0.1 JEAN PAUL - Nurse 2 - General Ulcer CM Notes Start: 05/08/18 09:50 Freq: Status: Active Protocol: Activity Type Activity Date Activity User E-Sign Co-Sign Detail Recorded Client Recorded Date Recorded By Document 05/22/18 11:08 KELI [id number] 05/22/18 11:13 KELI Wound Center Nurse 2 [Procedure/Treatment] #3- LT BUTTOCK -Time 11:09 -Correct Patient Yes -Correct Side, Site, Position Yes -Correct Procedure Yes Neurological: Cranial nerves II-XII grossly intact, Neuro grossly intact Psych/Mental Status: Normal Affect, Appropriate, Alert and oriented to time, place, person, mood and affect Debridement Note Post-Debridement Measurements/Treatment JEAN PAUL - Nurse 2 - General Ulcer CM Notes Start: 05/08/18 09:50 Freq: Status: Active Protocol: Activity Type Activity Date Activity User E-Sign Co-Sign Detail Recorded Client Recorded Date Recorded By Wound Center Nurse 2 Laterality: Left - Buttock Type of Debridement: Excisional debridement Anesthesia Used: 5% Lidocaine Gel Depth: Down to and including healthy tissue, in the subcutaneous layer Percentage of wound debrided: 100 Instrument Used: 7mm curette Severity: Fat Layer Exposed Amount of bleeding with debridement: Mild Bleeding Controlled with: Compression and gauze Patient tolerated procedure well Assessment/Plan Active Problems (Last Updated 09/21/17 @ 11:42 by ARCHANA Ontiveros) GERD (gastroesophageal reflux disease) (Chronic) Edema of both legs (Chronic) Venous stasis ulcer (Chronic) Decubitus ulcer of left buttock, stage 2 (Acute) Pressure ulcer of right buttock, stage 3 (Acute) 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 Diabetes controlled. The ulcerations in the patient's left lower extremity now appear to be completely healed. Chronic changes of the skin persist, namely hyperpigmentation and lipodermatosclerosis. The swelling appears to be reasonably well controlled at this moment. The patient has a recent ulceration which has developed on the left buttock. It appears to represent a stage III pressure ulceration. Plan: With respect to the patient's lower extremity swelling and edema and her chronic venous disease, leg elevation has been encouraged. Her legs are to be elevated to heart level, or higher. An adequate amount of compression is also been recommended, though the patient is resistant to this idea. At least 20-30 mmHg compression has been recommended, though the patient indicates that she will do as she pleases. She prefers a lesser degree of compression. This factor suggests a likelihood of lower extremity venous ulcer recurrence. The patient now has an ulceration on her left buttock. Offloading measures have been recommended. This has been discussed with the patient thoroughly. We are to utilize Milena topically, which will be applied by the patient every other day. The patient will return on a weekly basis, though the upcoming holidays will likely interfere with such scheduling. The patient is not a smoker. Influenza vaccine was not administered today. Patient weighs 171 pounds. She stands 4 feet 10 inches tall. Her BMI is 35.7, which places her in an obese class II category. Weight loss has been recommended, and collaboration with the patient's primary care physician has been advised in this regard. 05/22/18 1141 <Electronically signed by Bao Brothers MD> Date Bao Brothers MD CC: Signed WOUND CTR HISTORY Observed: 05/18/2018 Status: F Source: DANIKA AND PHYSICAL 12:51 PM [facility] REPOSITORY [facility] Wound Healing Center [address] [place], [place] [address] [place] [address] Wound Ctr History AND Physical 05/18/18 9175 MR#: [id number] Acct: [id number] Name: BRISSA ARRIAGA Rep #: [id number] : 1940 77 From: Maryam OCHOA PCP: Lesly Chairez NP Status: REG RCR Y Location: (1) Diabetes Status: Chronic Current Visit: No Qualifiers: Diabetes mellitus type: type 2 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 care home use Diabetes mellitus complication status: without complication Qualified Code(s): E11.9 - Type 2 diabetes mellitus without complications Code(s): E11.9 - Type 2 diabetes mellitus without complications (2) Failure to thrive Status: Chronic Current Visit: Yes Code(s): [id number] - (3) GERD (gastroesophageal reflux disease) Status: Chronic Current Visit: Yes Code(s): K21.9 - Gastro- esophageal reflux disease without esophagitis (4) Decubitus ulcer of left buttock, stage 2 Status: Acute Current Visit: Yes Code(s): L89.322 - Pressure ulcer of left buttock, stage 2 History of Present Illness Chief Complaint: Here for nurse visit but is complaining about burning and pain in her left buttocks ulcer History of Wound: This is a 77-year-old white female that has history of those buttocks ulcer approximately 2 years ago and closed it on her own with bag balm has recurrent opening that is been trying to take care of her to self with [id number] zinc oxide. Patient complains of increased pain and burning and unable to take it anymore. She has a small opening on her left buttocks cheek that is tender to palpate erythematous around the edges has a crusted yellow slough across it. 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) Failure [...] (Chronic) Past Medical History: Decubitus ulcer left buttocks Surgical History: - - 2009 had colonoscopy [...] 09/21/17 11:28) Unknown neomycin sulfate [From Neosporin ([id number])] Allergy (Verified 09/21/17 11:28) Itching polymyxin B [...] Non-smoker Review of Systems Constitutional: Denies: Chills, Fever Eyes: Denies: Blurred vision, Drainage, Pain HEENT: Denies: Difficulty Hearing, Difficulty Swallowing, Sore Throat, Visual Changes Cardiovascular: Denies: Chest Pain, Palpitations, Syncope Respiratory: Denies: Cough, Shortness of Breath Gastrointestinal: Denies: Abdominal Pain, Nausea, Vomiting Genitourinary: Denies: Dysuria, Frequency Musculoskeletal: Denies: Joint Pain, Muscle pain Skin: Denies: Jaundice, Rash Neurological: Denies: Balance problems, Change in Speech, Difficulty swallowing, Focal weakness Psychiatric: Denies: Anxiety, Depression Endocrine: Denies: Change in Body Habitus Hematologic/ Lymphatic: Denies: Adenopathy - Physical Exam Vital Signs Temp Pulse Resp BP 99.3 F H 89 16 154/72 H 05/18/18 11:46 05/18/18 11:46 05/18/18 11:46 05/18/18 11:46 General: Oriented x3, Cooperative, Well developed HEENT: Atraumatic, PERRLA Oral: Moist Mucosa Neck: Supple, No JVD Lungs: Clear to auscultation, Normal air movement Cardiovascular: Regular rate, Regular Rhythm Abdomen: Bowel Sounds Present, Soft, Non Tender, No Hepato-splenomegaly Extremities: No clubbing, No edema Skin: Ulcer/ Wound - Decubitus ulcer left buttocks stage II Wound Measurements and Assessment WC - Nurse 1 - General Ulcer Measurement Start: 05/08/18 09:50 Freq: Status: Active Protocol: Activity Type Activity Date Activity User E-Sign Co-Sign Detail Wound Center Nurse 1 [Ulcer Assessment] WC - Nurse 2 - General Ulcer CM Notes Start: 05/08/18 09:50 Freq: Status: Active Protocol: Activity Type Activity Date Activity User E-Sign Co-Sign Detail Recorded Client Recorded Date Recorded By Document 05/18/18 12:21 MW [id number] 05/18/18 12:25 MW Wound Center Nurse 2 Musculoskeletal: No Tenderness to Palpation of Joints or Extremities Lymphatic: No Cervical, Supraclavicular, or Inguinal Adenopathy Neurological: Cranial nerves II-XII grossly intact, Neuro grossly intact Psych/Mental Status: Normal Affect, Appropriate Debridement Note Post-Debridement Measurements/Treatment WC - Nurse [...] Percentage of wound debrided: 100 Instrument Used: 5mm curette Tissue Removed: Fibrin and slough Severity: Limited To Skin Breakdown Amount of bleeding with debridement: Mild Bleeding Controlled with: Compression and gauze Patient tolerated procedure well Assessment/Plan Active Problems (Last Updated [...] in [address] Brothers 05/18/18 9411 <Electronically signed by Maryam OCHOA> Date Maryam OCHOA CC: Signed PREALBUMIN Collected: 05/18/2018 Status: F Source: DANIKA 12:50 PM [facility] REPOSITORY TYPE CODE TESTS RESULT OUT OF RANGE REFERENCE UNITS LAB L506.0500 20.0-40.0 mg/dL Normal PREALBUMIN 21.8 Performed By: #### L506.0500 #### [facility] [address] [place], [address] WOUND CTR HISTORY Observed: 05/08/2018 Status: F Source: DANIKA AND PHYSICAL 10:20 AM [facility] REPOSITORY [facility] Wound Healing Center [address] [place] [address] Wound Ctr History AND Physical 05/08/18 1014 MR#: [id number] Acct: [id number] Name: BRISSA ARRIAGA Rep #: [id number] : 1940 77 From: Bao Brothers MD PCP: Lesly Chairez NP Status: REG RCR Y Location: (1) GERD (gastroesophageal reflux disease) Status: Chronic Current Visit: No Code(s): K21.9 - Gastro- esophageal reflux disease without esophagitis (2) Osteoarthritis Status: Chronic Current Visit: No Code(s): M19.90 - Unspecified osteoarthritis, unspecified site (3) Edema of both legs Status: Chronic Current Visit: Yes Code(s): R60.0 - Localized edema (4) Hiatal hernia Status: Chronic Current Visit: No Code(s): K44.9 - Diaphragmatic hernia without obstruction or gangrene (5) Venous stasis ulcer Status: Chronic Current Visit: Yes Qualifiers: Venous stasis ulcer site: calf Varicose vein presence: with varicose veins Laterality: left Non-pressure ulcer stage: with fat layer exposed Qualified Code(s): I83.022 - Varicose veins of left lower extremity with ulcer of calf; L97.222 - Non-pressure chronic ulcer of left calf with fat layer exposed Code(s): I83.009 - Varicose veins of unspecified [...] unspecified foot Comment: right heel spur removed (10) H/O dilation and curettage Status: Resolved Current Visit: No Code(s): Z98.890 - Other specified postprocedural states (11) H/O tubal ligation Status: Resolved Current Visit: No Code(s): Z98.51 - Tubal ligation status (12) Lipoma Status: Resolved Current Visit: No Code(s): D17.9 - Benign lipomatous neoplasm, unspecified Comment: removed from right hip (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 Current Visit: No Code(s): K60.4 - Rectal fistula Comment: 1960 (14) Atherosclerotic heart disease of [place] coronary artery without angina pectoris Status: Chronic Current Visit: No Qualifiers: Code(s): I25.10 - Atherosclerotic heart disease of [place] coronary artery without angina pectoris (15) Cellulitis of left leg Status: Resolved Current Visit: No Code(s): L03.116 - Cellulitis of left lower limb (16) Failure to thrive Status: Chronic Current Visit: No Code(s): [id number] - (17) Positional vertigo Status: Chronic Current Visit: No Code(s): H81.10 - Benign paroxysmal vertigo, unspecified ear (18) Ulcer Status: Resolved Current Visit: No Code(s): L98.499 - Non-pressure chronic ulcer of skin of other sites with unspecified severity (19) Obesity Status: Chronic Current Visit: No Code(s): E66.9 - Obesity, unspecified (20) Hx of venous thrombosis and embolism Status: Chronic Current Visit: No Code(s): Z86.718 - Personal history of other venous thrombosis and embolism (21) history of cellulitis of leg Status: Chronic Current Visit: Yes (22) Leg swelling Status: Chronic Current Visit: Yes Code(s): M79.89 - Other specified soft tissue disorders (23) Hyperpigmentation of skin Status: Chronic Current Visit: [...] (idiopathic) with inflammation of bilateral lower extremity (27) Localized edema [...] No Code(s): R53.1 - Weakness (31) Hyperlipidemia Status: Chronic Current Visit: No Qualifiers: Code(s): E78.5 [...] Yes Code(s): I87.2 - Venous insufficiency (chronic) (peripheral) (36) Non-pressure chronic ulcer of left ankle with fat layer exposed Status: Resolved Current Visit: Yes Code(s): L97.322 - Non-pressure chronic ulcer of left ankle with fat layer exposed (37) 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 Status: Chronic Current Visit: No Code(s): I70.249 - Atherosclerosis of [place] arteries of left leg with ulceration of unspecified site (38) Type 2 diabetes mellitus Status: Chronic Current Visit: No Code(s): E11.9 - Type 2 diabetes mellitus without complications History of Present Illness Chief Complaint: Severe swelling, edema, and lymphedema of the lower extremities associated with severe hyperpigmentation and lipodermatosclerosis; venous stasis dermatitis and venous stasis ulceration of left lower extremity; recent cat scratch of the left lower extremity History of Wound: This is a 77-year-old female who presents with an open wound on the distal aspect of the left lower extremity involving the gaiter area. According to the patient, she sustained a cat scratch by a strange cat approximately 3 weeks ago, which resulted in cellulitis. She has been evaluated by her primary care physician, at [facility], and has been prescribed Augmentin to be taken twice daily for a total of 10 days. She is in the midst of this prescription. Of significance, the patient has been treated in the past for manifestations of chronic venous disease, and has been advised of the proper conservative treatment measures relative to the management of this disease. Nonetheless, she has been largely noncompliant. She possesses [...] at ankle level bilaterally, but normal digital-brachial indices bilaterally. 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 The ulceration on the left anterior tibial surface is smaller in size. The base of the ulceration is generally pink and healthy in appearance, with evidence of active healthy granulation tissue. There is a small amount of bioburden. There is no sign of infection or cellulitis. Dimensions are documented elsewhere. Chronic skin changes are noted, including hyperpigmentation and lipodermatosclerosis. Wound Measurements and Assessment WC - Nurse 1 - General Ulcer Measurement Start: 05/08/18 09:50 Freq: Status: Active Protocol: Activity Type Activity Date Activity User E-Sign Co-Sign Detail Recorded Client Recorded Date Recorded By Document 05/08/18 09:50 [id number] 05/08/18 09:55 Wound Center Nurse 1 [Ulcer Assessment] WC - Nurse 2 - General Ulcer CM Notes Start: 05/08/18 09:50 Freq: Status: Active Protocol: Activity Type Activity Date Activity User E-Sign Co-Sign Detail Recorded Client Recorded Date Recorded By Document 05/08/18 10:06 DV [id number] 05/08/18 10:12 DV Wound Center Nurse 2 Neurological: Cranial nerves [...] Recorded Date Recorded By Document 05/08/18 10:06 DV [id number] 05/08/18 10:12 DV Wound Center Nurse 2 [...] with: Compression and gauze Patient tolerated procedure well Assessment/Plan Active Problems (Last Updated [...] (Chronic) Chronic venous stasis dermatitis (Chronic) Assessment: This is a 77-year-old female with a long-standing history of chronic venous disease and associated manifestations. She has been previously treated for ulcerations in the left lower extremity. However, [...] appears somewhat resistant to this idea. She has [...] We are to continue compression to the left lower extremity by [...] not appear to require repeating. The patient will return in 2 weeks for reassessment. Her Unna boot will continue to be changed twice weekly. The patient is not a smoker. Influenza vaccine was not administered today. Patient weighs 171 pounds. She stands 4 feet 10 inches tall, her BMI is 35.7, which places her in an obese class II category. Weight loss has been recommended, in collaboration with the patient's primary care physician has been advised in this regard. 05/08/18 1020 <Electronically signed by Bao Brothers MD> Date Bao Brothers MD CC: Signed WOUND CTR HISTORY Observed: 05/01/2018 Status: F Source: [facility] 11:22 AM [facility] REPOSITORY [facility] [address] [place] [address] Wound Ctr History AND Physical 05/01/18 1054 MR#: [id number] Acct: [id number] Name: BRISSA ARRIAGA Rep #: [id number] : 1940 77 From: Bao Brothers MD PCP: Lesly Chairez NP Status: REG RCR Y Location: (1) GERD (gastroesophageal reflux disease) Status: Chronic Current Visit: No Code(s): K21.9 - Gastro- esophageal reflux disease without esophagitis (2) Osteoarthritis Status: Chronic Current Visit: No Code(s): M19.90 - Unspecified osteoarthritis, unspecified site (3) Edema of both legs Status: Chronic Current Visit: Yes Code(s): R60.0 - Localized edema (4) Hiatal hernia Status: Chronic Current Visit: No Code(s): K44.9 - Diaphragmatic hernia without obstruction or gangrene (5) Atherosclerotic heart disease of [place] coronary artery without angina pectoris Status: Chronic Current Visit: No Qualifiers: [place] vs. transplanted heart: [place] heart Code(s): I25.10 - Atherosclerotic heart disease of [place] coronary artery without angina pectoris (6) Failure to thrive Status: Chronic Current Visit: No Code(s): [id number] - (7) Positional vertigo Status: Chronic Current Visit: No Code(s): H81.10 - Benign paroxysmal vertigo, unspecified ear (8) Obesity Status: Chronic Current Visit: Yes Code(s): E66.9 - Obesity, unspecified (9) Hx of venous thrombosis and embolism Status: Chronic Current Visit: Yes Code(s): Z86.718 - Personal history of other venous thrombosis and embolism (10) history of cellulitis of leg Status: Chronic Current Visit: No (11) Leg swelling Status: Chronic Current Visit: Yes Code(s): M79.89 - Other specified soft tissue disorders (12) Hyperpigmentation of skin Status: Chronic Current Visit: Yes Code(s): L81.9 - Disorder of pigmentation, unspecified (13) Lipodermatosclerosis Status: Chronic Current Visit: Yes Code(s): I83.10 - Varicose veins of unspecified lower extremity with inflammation (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 Current Visit: Yes Code(s): I87.093 - Postthrombotic syndrome with other complications of bilateral lower extremity (15) Chronic venous hypertension (idiopathic) with inflammation of bilateral lower extremity Status: Chronic Current Visit: Yes Code(s): I87.323 - Chronic venous hypertension (idiopathic) with inflammation of bilateral lower extremity (16) Non-pressure chronic ulcer of left calf with fat layer exposed Status: Resolved Current Visit: Yes Code(s): L97.222 - Non-pressure chronic ulcer of left calf with fat layer exposed (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 Current Visit: No Code(s): E11.59 - Type 2 diabetes mellitus with other circulatory complications (18) Hyperlipidemia Status: Chronic Current Visit: No Qualifiers: Code(s): E78.5 - Hyperlipidemia, unspecified (19) Diabetes Status: [...] Yes Code(s): I87.2 - Venous insufficiency (chronic) (peripheral) (23) Non-pressure chronic ulcer of left ankle [...] lower leg with unspecified severity History of Present Illness Chief Complaint: Severe swelling, edema, and lymphedema of the lower extremities associated with severe hyperpigmentation and lipodermatosclerosis; venous stasis dermatitis and venous stasis ulceration of left lower extremity; recent cat scratch of the left lower extremity History of Wound: This is a 77-year-old female who presents with an open wound on the distal aspect of the left lower extremity involving the gaiter area. According to the patient, she sustained a cat scratch by a strange cat approximately 3 weeks ago, which resulted in cellulitis. She has been evaluated by her primary care physician, at [facility], and has been prescribed Augmentin to be taken twice daily for a total of 10 days. She is in the midst of this prescription. Of significance, the patient has been treated in the past for manifestations of chronic venous disease, and has been advised of the proper conservative treatment measures relative to the management of this disease. Nonetheless, she has been largely noncompliant. She possesses [...] at ankle level bilaterally, but normal digital-brachial indices bilaterally. 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 Surgical History: - - 2008 had colonoscopy [...] 09/21/17 11:28) Unknown neomycin sulfate [From Neosporin ([id number]-jlx-aoegb)] Allergy (Verified 09/21/17 11:28) Itching polymyxin B [...] Cooperative, No apparent distress, Well developed, Well nourished, - - Patient is obese HEENT: Atraumatic, PERRLA, EOMI, Normocephalic Oral: Moist Mucosa, No Gingival or Mucosal Lesions/ Ulcerations Neck: Supple, No JVD, Negative Carotid Bruits, Negative [...] and edema are noted in the lower extremities bilaterally, particularly involving the ankles. In the right lower extremity, the skin is intact. There is a diffuse erythema in the right gaiter area. On the left, there is a large superficial ulceration in the gaiter area. There is erythema in the gaiter area as well. There is no evidence of a cat scratch. However, the appearance of the ulceration is consistent with a venous stasis ulceration. Dimensions are documented elsewhere. Swab cultures have been obtained for both aerobic and anaerobic bacterial growth. Wound Measurements and Assessment WC - Nurse 1 - General Ulcer Measurement Start: 05/01/18 09:46 Freq: Status: Active Protocol: Activity Type Activity Date Activity User E-Sign Co-Sign Detail Recorded Client Recorded Date Recorded By Document 05/01/18 10:05 [id number] 05/01/18 10:17 Wound Center Nurse 1 [Ulcer Assessment] #2 cat scratch-cellulits -Combined with other wound No WC - Nurse 2 - General Ulcer CM Notes Start: 05/01/18 09:46 Freq: Status: Active Protocol: Activity Type Activity Date Activity User E-Sign Co-Sign Detail Recorded Client Recorded Date Recorded By Document 05/01/18 10:41 [id number] 05/01/18 10:52 Wound Center Nurse 2 [Procedure/Treatment] #2 cat scratch-cellulits -Time 10:41 -Correct Patient Yes -Correct Side, [...] Recorded Date Recorded By Document 05/01/18 10:41 [id number] 05/01/18 10:52 Wound Center Nurse 2 #2 cat scratch-cellulits No debridement was completed today Assessment/Plan Active [...] (Chronic) Chronic venous stasis dermatitis (Chronic) Assessment: This is a 77-year-old female with a long-standing history of chronic venous disease and associated manifestations. She has been previously treated for ulcerations in the left lower extremity. However, [...] appears somewhat resistant to this idea. She has [...] loss has been recommended. We are to implement compression to the left lower extremity by means of an Unna boot, which will be applied today, and changed twice weekly. The patient has been advised that the use of peroxide topically has been counterproductive. Patient has been advised to continue with her prescription for Augmentin twice daily for 10 days. Wound cultures have been obtained, and results will be awaited. The patient has previous venous and arterial studies, which do not appear to require repeating. The patient has return in 1 week for reassessment. The patient is not a smoker. Influenza vaccine was not administered today. Patient weighs 171 pounds. She stands 4 feet 10 inches tall, her BMI is 35.7, which places her in an obese class II category. Weight loss has been recommended, in collaboration with the patient's primary care physician has been advised in this regard. 05/01/18 1122 <Electronically signed by Bao Brothers MD> Date Bao Brothers MD CC: Signed Observed: 05/01/2018 Status: F Source: [place] CULTURE, DEEP WOUND 10:45 AM [facility] REPOSITORY Gram Stain Gram Stain No organisms seen Wound Culture No growth aerobically. Cult, Anaerobic No growth in 5 days. Performed By: #### M100.1500 #### [facility] [address] [place], [address] SCREENING MAMM (CAD), Observed: 03/22/2018 Status: F Source: [place] BILAT 1:32 PM [facility] REPOSITORY [facility] Imaging Services [address] [place] [address] SCREENING MAMM (CAD), BILAT MR#: [id number] Acct: [id number] Name: BRISSA ARRIAGA Rep #: [id number] : 1940 F 77 From: Sergio Perea MD PCP: Lesly Chairez NP Status: REG CLI Study: SCREENING MAMM (CAD), BILAT Date of Exam: 03/22/18 Exam# [id number] Ordering Dr: Lesly Chairez [facility]-C MAMMOGRAPHY - BILATERAL SCREENING REASON FOR EXAM: Female, 77 years old. Routine annual screening examination. PERTINENT HISTORY: Non-contributory. TECHNIQUE: Digital bilateral breast iván (3D mammographic acquisition) in the CC and MLO projections. 2-D mediolateral oblique (MLO) and craniocaudad (CC) views of both breasts were obtained. CAD: Full Field Digital Mammography with Computer Added Detection was performed. COMPARISON: Comparison is made with prior study date March 09, 2017 and February 29, 2016. FINDINGS: Breast Composition: There are scattered areas of fibroglandular density. There are no dominant masses or suspicious calcifications. No other significant abnormalities are identified. There has been no significant change since the prior study. BI/SCREENING MAMM (CAD), BILAT IMPRESSION: Stable bilateral screening mammogram. Yearly follow-up mammogram recommended. (A) ASSESSMENT CATEGORY: BIRADS Category 1: Negative. A letter regarding these results will be sent to the patient by the facility within 30 days. Approximately 10% of breast cancers are not detected by mammography. A normal mammogram should not delay biopsy of a clinically suspicious abnormality. [id number] Electronically Signed: Sergio Perea MD at 10:28 EDT Tel [phone], Service support , CC: Lesly Chairez NP Nitroglycerin Supervisor: Signed DEXA BONE DENSITY Observed: 03/22/2018 Status: F Source: [place] STUDY 1:32 PM [facility] REPOSITORY [facility] Imaging Services [address] [place] [address] Dexa Bone Density Study MR#: [id number] Acct: [id number] Name: BRISSA ARRIAGA Rep #: [id number] : 1940 F 77 From: Sergio Perea MD PCP: Lesly Chairez NP Status: REG CLI Study: Dexa Bone Density Study Date of Exam: 03/22/18 Exam# [id number] Ordering Dr: Lesly Chairez MINE [facility]TER-C STUDY: DUAL ENERGY X-RAY ABSORPTIOMETRY / DXA REASON FOR EXAM: Female, 77 years old. The patient is postmenopausal. Loss of height. TECHNIQUE: Bone Mineral Density (BMD) measurements of lumbar spine and bilateral hips were obtained. COMPARISON: Comparison is made with prior examination dated April 25, 2013. FINDINGS: Lumbar Spine (L1-L4): g/cm2 (1.094) / T-score (-0.6) / Z-score (1.2) Findings are suggestive of normal bone density with a low fracture risk. Left Femur Total: g/cm2 (1.027) / T-score (0.2) / Z-score (2.1) Left Femoral Neck: g/cm2 (1.048) / T-score (0.1) / Z- score (2.2) Right Femur Total: g/cm2 (0.947) / T-score (-0.5) / Z- score (1.4) Right Femoral Neck: g/cm2 (0.979) / T-score (0.4) / Z- score (1.7) The T-Scores on the most recent prior examination were: Lumbar Spine (L1-L4): There has been worsening of bone density since the previous examination. Left Femur Total: which represents an improvement of 2.3%. Right Femur Total: which represents a worsening of 7.8%. BD/Dexa Bone Density Study IMPRESSION: The patient is considered normal as outlined below according to World Nico Organization (WHO) criteria [...] through -1.5 Moderate -1.6 through -2.0 Severe -2.1 through -2.4 The Z-score is the number of standard deviations above or below age-matched controls. A Z-score of less than -1.5 would be considered abnormal. References: 1. NIH Osteoporosis and Related Bone Diseases http://www.osteo.org 2. International Society for Clinical Densitometry http://www.iscd.org 3. National Osteoporosis Foundation http://www.nof.org Electronically Signed: Sergio Perea MD at 15:16 EDT Tel [phone], Service support , CC: Lesly Chairez NP Nitroglycerin Supervisor: Signed HIP, UNI W/ PELVIS Observed: 02/12/2018 Status: F Source: [place] 2-3 VIEWS 2:18 PM [facility] REPOSITORY [facility] Imaging Services [address] [place] [address] HIP, UNI W/ Pelvis 2-3 Views MR#: [id number] Acct: [id number] Name: BRISSA ARRIAGA Rep #: [id number] : 1940 F 77 From: Justo Kennedy MD PCP: Lesly Chairez NP Status: REG CLI Study: HIP, UNI W/ Pelvis 2-3 Views Date of Exam: 02/12/18 Exam# [id number] Ordering Dr: Lesly Chairez STUDY: X-RAY - PELVIS AND RIGHT HIP REASON FOR EXAM: Female, 77 years old. Hip pain TECHNIQUE: Radiological exam, hip, unilateral, with pelvis when performed; minimum of 4 views COMPARISON: None. FINDINGS: There is a non-specific bowel gas pattern. Normal visualized soft tissue structures. Normal bilateral iliac wings, sacroiliac joints and visualized sacrum. Normal bilateral superior and inferior pubic rami. Normal pubic symphysis. Normal bilateral ischial tuberosities. There are degenerative changes of the visualized lumbar spine. Normal visualized femoral head. Normal acetabulum. Normal hip joint. RAD/HIP, UNI W/ Pelvis 2-3 Views IMPRESSION: Degenerative changes of the visualized lumbar spine. The bony pelvis and left and right hips are unremarkable. Electronically Signed: Justo Kennedy MD at 23:54 EDT , Service support , CC: Lesly Chairez NP Nitroglycerin Supervisor: Signed ABDOMEN COMPLETE Observed: 11/16/2017 Status: F Source: [place] 10:21 AM [facility] REPOSITORY [facility] Imaging Services [address] [place] [address] Abdomen Complete MR#: [id number] Acct: [id number] Name: BRISSA ARRIAGA Rep #: [id number] : 1940 F 77 From: Yulissa Reilly MD PCP: Lesly Chairez NP Status: REG CLI Study: Abdomen Complete Date of Exam: 11/16/17 Exam# [id number] Ordering Dr: Lesly Chairez STUDY: ABDOMINAL ULTRASOUND REASON FOR EXAM: Female, 77 years old. Abdominal pain. TECHNIQUE: Transabdominal ultrasound was performed with real-time and static gomez scale imaging. TECHNICAL QUALITY: Adequate. COMPARISON: None. FINDINGS: Liver: The liver measures 13.5 cm. There is normal echogenicity of the liver. The bile ducts are within normal limits. There is hepatic color flow. The direction of portal flow is hepatopetal. There is no demonstrated mass lesion. Gallbladder: Normal distended gallbladder. The gallbladder wall measures 1.9 mm. There is a negative sonographic Molina's sign. There is no pericholecystic fluid. There are [...] is no right hydronephrosis. Left Kidney: Normal size of the left kidney. The left kidney measures 7.5 cm in length. Normal renal cortex. The left cortex measures 1.2 cm. There is no demonstrated renal mass or cyst. There is no left hydronephrosis. Aorta: The visualized abdominal aorta is within normal limits. I.V.C.: The IVC is patent. There is no ascites. US/Abdomen Complete IMPRESSION: Normal abdominal ultrasound examination. Electronically Signed: Yulissa Reilly MD at 11:23 EDT Tel , Service support , CC: Lesly Chairez NP Nitroglycerin Supervisor: Signed CARDIOLOGY VISIT Observed: 09/22/2017 Status: F Source: [place] REPORT 9:25 AM [facility] REPOSITORY [facility] [address] [place] [address]. [address] [place] [address] OFFICE VISIT Date of Service: 09/21/17 MR#: [id number] Acct: [id number] Name: BRISSA ARRIAGA Rep #: [id number] : 1940 Provider: Serenity Villarreal Age/Sex: 77/F [place] [facility] [place]: Signed HPI HPI Details: BRISSA ARRIAGA, is a 77 F who presents to the office today for presents here today for a cardiovascular follow-up. She has a history of hypertension, DVT, hyperlipidemia and diabetes. pt had cataract surgery this past winter. From a cardiac standpoint, patient is doing well. She does not have any chest discomfort/heaviness/tightness. Her exercise tolerance is stable for her age. She does not have any worsening symptoms of shortness of breath. She does not have any orthopnea. She denies PND. 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 Required: No Accompanied by: none Is patient in pain?: No Allergies atorvastatin calcium [From Lipitor] Allergy (Verified 09/21/17 11:28) Unknown ezetimibe [From Zetia] Allergy (Verified 09/21/17 11:28) Unknown lisinopril Allergy (Verified 09/21/17 11:28) Unknown neomycin [Neomycin] Allergy (Verified 09/21/17 11:28) Unknown neomycin sulfate [From Neosporin ([id number]-[id number])] Allergy (Verified 09/21/17 11:28) Itching polymyxin B [Polymyxin B] Allergy (Verified 09/21/17 11:28) Unknown Sulfa (Sulfonamide Antibiotics) Allergy (Verified 09/21/17 11:28) Unknown tetracycline [Tetracycline] Allergy (Verified 09/21/17 11:28) Itching adhesive tape Adverse Reaction (Severe, Verified 09/21/17 11:28) Unknown Medications Cholecalciferol (Vitamin D3) [Vitamin D3] 2,000 unit PO DAILY 01/15/17 [History Confirmed 09/21/17] Famotidine [Pepcid] 20 mg PO BID 01/15/17 [History Confirmed 09/21/17] Irbesartan [Avapro] 75 mg PO DAILY 01/15/17 [History Confirmed 09/21/17] Meclizine HCl [Antivert] 25 mg PO TID PRN PRN 01/15/17 [History Confirmed 09/21/17] Metformin HCl [Glucophage] 500 mg PO DAILY 01/15/17 [History Confirmed 09/21/17] Pentoxifylline [Trental] 400 mg PO TID 01/15/17 [History Confirmed 09/21/17] Potassium Chloride [K-Dur] 10 meq PO DAILY PRN 01/15/17 [History Confirmed 09/21/17] Pravastatin [Pravachol] 80 mg PO QHS 01/15/17 [History Confirmed 09/21/17] Torsemide [Demadex] 20 mg PO DAILY 01/15/17 [History Confirmed 09/21/17] cyanocobalamin (vit B-12) 1,000 mcg/mL oral drops 1,000 mcg PO QDAY 09/21/17 [History Confirmed 09/21/17] Ejection fraction %: 65 to 70 PFSH Medical History Palpitations (Chronic) Atherosclerotic heart disease of [place] coronary artery without angina pectoris (Chronic) Hyperlipidemia (Chronic) Diabetes (Chronic) Hypertension (Chronic) Surgical History cataract surgery (Resolved) Heel spur (Resolved) H/O dilation and curettage (Resolved) H/O tubal ligation (Resolved) Lipoma (Resolved) Rectal fistula (Chronic) Family History Mother CAD (coronary artery disease) Myocardial infarction Son Hypertension Brother Aortic aneurysm Social History Smoking Status: Never smoker alcohol intake: never substance use type: does not use caffeine: Yes Type: coffee Number of servings: 1 what type of physical activity do you participate in: none seatbelt use: always do you feel safe at home: Yes ROS Const Const: Negative for weakness, fatigue, fever(s) or headache(s) Eyes Eyes: Negative for blind spots, loss of peripheral vision or transient loss of vision ENT ENT: Negative for headache(s), dizziness, tinnitus or Nosebleed/epistaxis Cardio Chest Pain: No Palpitations: No Edema: None Muscle aches with walking: None Resp Respiratory: Negative for SOB with activity, SOB at rest, SOB orthopnea\SOB lying down or Cough GI GI: Negative nausea, vomiting, heartburn or vomiting blood/hematemesis : Negative for hematuria Musc Musc: Negative for muscle aches/ myalgia Neuro Neuro: Negative for weakness, headache(s), dizziness, near syncope, syncope, lightheadedness or orthostatic symptoms Raoul Hematologic/Lymphatic: Negative for easy bleeding Endo Endo: Negative for fatigue Cardiology Exam Const Appearance: cooperative, no acute distress and well developed Orientation: alert, awake and oriented x3 Head Head: normocephalic and atraumatic Mouth: moist mucous membranes Eyes General: appearance normal, both eyes and all related structures Conjunctivae: conjunctivae normal Pupils: PERRL EOM: EOM intact bilaterally Neck Neck: normal visual inspection, no lymphadenopathy and no JVD Carotids: Negative bruit Neck Mass: Negative Neck mass Chest Chest inspection: normal inspection of the chest and symmetric chest movement Auscultation: Bilateral: Clear to Auscultation Cardio Palpation: normal PMI Rate: regular rate Rhythm: regular rhythm Heart sounds: S1 normal and S2 normal; negative rub, gallop or murmur GI GI: normal to inspection, soft, no hepatosplenomegaly and bowel sounds present; negative tender Neuro General: alert, awake, oriented x3, CN's II-XI intact bilaterally and moves all extremities Extremities Pulses: Normal: Right Posterior Tibial Pulse, Left Posterior Tibial Pulse, Right Radial Pulse, Left Radial Pulse Lower Extremity Edema: +2: Bilateral, Color Changes: Bilateral Psych Psychological: normal affect Supplemental Info Echocardiogram in 2012 demonstrated an ejection fraction of 65%. Stress test at that time indicated myocardial ischemia in the mid and distal inferior apical segments. Heart catheterization demonstrated mild coronary artery disease. Medical management was recommended. Assessment AND Plan 1. Atherosclerosis of [place] coronary artery of [place] heart without angina pectoris I25.10 Plan Stable, from a cardiac standpoint patient does not have any symptoms of angina. We recommend that they continue with current aggressive medical management and risk factor modification. 2. Essential hypertension I10 Plan Blood pressure is well controlled on current medications, we do not recommend any changes at this time. 3. Pure hypercholesterolemia E78.00; E78.0 Plan Managed by primary care doctor. Have requested a copy of labs for continuity of care. Plan Detail Additional Comments Thank you for allowing us to participate in patient's plan of care, if you have any questions please do not hesitate to call. This note was generated using a voice recognition system and there may be incorrect words, spelling or punctuation errors that were not noted when reviewing the office note prior to saving. Follow Up 9 Months (PFM) Coding Level of Care Code Off vis,est,level 3 Diagnoses Atherosclerosis of [place] coronary artery of [place] heart without angina pectoris I25.10 [place] vs. transplanted heart: [place] heart Essential hypertension I10 Hypertension type: essential hypertension Pure hypercholesterolemia E78.00; E78.0 Hyperlipidemia type: pure hypercholesterolemia Coding Level of Care Code Off vis,est,level 3 Diagnoses Atherosclerosis of [place] coronary artery of [place] heart without angina pectoris I25.10 [place] vs. transplanted heart: [place] heart Essential hypertension I10 Hypertension type: essential hypertension Pure hypercholesterolemia E78.00; E78.0 Hyperlipidemia type: pure hypercholesterolemia 09/22/17 0925 <Electronically signed by Serenity MAGAÑA> Date Serenity MAGAÑA Cosigner Signature: Date (if applicable) CC: Lesly Chairez [facility] ALLERGIES DATE TYPE / CODE NAME / CODE REACTION SEVERITY SOURCE 09/21/2017 Drug neomycin Itching Unknown [place] Allergy/416 sulfate/[id number]( [facility] [id number] [place] [address]) Repository 09/21/2017 Drug atorvastatin Unknown Unknown [place] Allergy/416 calcium/[id number]( [address]) Repository 09/21/2017 Drug Sulfa (Sulfonamide Unknown Unknown [place] Allergy/416 Antibiotics)/[id number] [facility] 685863([address]) Repository 09/21/2017 Drug lisinopril/[id number] Unknown Unknown [place] Allergy/416 58(RXNORM) Community 513402([facility] ED CT) Repository 09/21/2017 Drug tetracycline/H96983 Itching Unknown [place] Allergy/416 2738(RXNORM) Community 372243([facility] ED CT) Repository 09/21/2017 Drug neomycin/[id number] Unknown Unknown [place] Allergy/416 (RXNORM) [facility] 235633([facility] ED CT) Repository 09/21/2017 Drug polymyxin Unknown Unknown [place] Allergy/416 B/[id number](RXNORM [address]) Repository 09/21/2017 Drug ezetimibe/[id number] Unknown Unknown [place] Allergy/416 7(RXNORM) Community 554745([facility] ED CT) Repository 09/21/2017 Drug adhesive Unknown SV [place] Allergy/416 tape/[id number](RXN [facility] 234739[facility]) Repository ENCOUNTERS ENCOUNTERS ADMIT/DISCHARGE ACCOUNT ADMITTING ENCOUNTER LOCATION SOURCE NUMBER CLASS 05/22/2018 [id number] Ambulatory Danika Danika 8 [facility] ing: Repository 05/21/2018 [id number] Ambulatory Building:[facility] [place] Practices Repository 05/04/2018/ [id number] Ambulatory [place] Danika 8 9 [facility] ing:WC Repository 03/22/2018 [id number] Ambulatory Danika Danika 8 [facility] ing:OPBD Repository 02/12/2018 [id number] Ambulatory Danika [place] 7 [facility] ing:HPRAD Repository 11/16/2017 [id number] Ambulatory [place] 4 [facility] ing:US Repository 09/21/2017/ [id number] Ambulatory BMSBuilding:B [place] 8 6 [facility] Repository 09/19/2017 [id number] Ambulatory BMS [place] 0 [facility] Repository 09/15/2017 [id number] Ambulatory BMSBuilding:B [place] 8 [facility] Repository PAYERS PAYERS ENCOUNTER GUARANTOR PAYER SUBSCRIBER SOURCE 05/22/2018 BRISSA Lackey Primary BRISSA Ziyad Danika [id number] Insurance:MEDICARE ACKERMANDOB: [facility] PART A [facility] [id number] Number: Repository [address]Ivi: [phone] [id number] [phone] () Date:2018-04-25 05/22/2018 Secondary BRISSA Ziyad Garnica Insurance:AARPPolicy ACKERMANDOB: [facility] Number: [id number] [facility] [id number] Repository Date:3321-21-96[address], [place] [address]EX: 05/22/2018 Tertiary NOT GIVENUNK [place] Insurance:SELF PAY [facility] Number: Effective Repository Date:2018-05-05 05/21/2018 Brissa Lackey Primary Brissa M OHIP Practices AckermanDOB: Insurance:MedicarePol AckermanDOB: Repository [id number] Box icy Number: [id number] [place] [id number] [address] [place], [place] Date:3811-60-33[facility], [place], [address]Lrb: (250) Name:GENERAL ACC[place] [address]Ysp: [phone] 773923Yoiayfbz, [place] (HP)Tel: [phone]: [phone] () [phone] 05/21/2018 Secondary Brissa Lackey OHIP Practices Insurance:AARP/UHCPol AckermanDOB: Repository icy Number: [id number] [id number] Date:9344-57-04Xvlu [address] STSjun, Name:F[place] [address]Gqh: [place], [place] [id number]: [phone] () [phone] 05/04/2018 BRISSA Lackey Primary BRISSA Lackey Danika [id number] Insurance:MEDICARE ACKERMANDOB: [facility] BOX PART A BPolicy [id number] Number: Repository [address]Yae: [phone] [id number] [phone] () Date:2018-04-25 05/04/2018 Secondary BRISSA Lackey Danika Insurance:AARPPolicy ACKERMANDOB: Community Number: [id number] Hospital [id number] Repository Date:3722-03-69TH [address], [place] [address]MF: 05/04/2018 Tertiary NOT GIVENUNK [place] Insurance:SELF PAY [facility] Number: Effective Repository Date:2018-04-25 03/22/2018 BRISSA Lackey Primary BRISSA M [place] [id number] E Insurance:MEDICARE ACKERMANDOB: Community [address] PART A [facility] [id number] Number: Repository [address]Out: 330 [id number] [phone] () Date:2018-02-13 03/22/2018 Secondary BRISSA Lackey Danika Insurance:AARPPolicy ACKERMANDOB: Community Number: [id number] [facility] [id number] Repository Date:4060-15-38[address] [address]HE: 03/22/2018 Tertiary NOT GIVENUNK [place] Insurance:SELF PAY [facility] Number: Effective Repository Date:2018-02-13 02/12/2018 BRISSA Lackey Primary BRISSA Lackey Danika [id number] [address] Insurance:MEDICARE ACKERMANDOB: Community [address] PART A [facility] [id number], [place] Number: Repository [address]Sqy: 330 [id number] [phone] () Date:2018-02-12 02/12/2018 Secondary BRISSA Lackey Danika Insurance:AARPPolicy ACKERMANDOB: Community Number: [id number] Hospital [id number] Repository Date:1915-18-96[address], [place] [address]VM: 02/12/2018 Tertiary NOT GIVENUNK [place] Insurance:SELF PAY [facility] Number: Effective Repository Date:2018-02-12 11/16/2017 BRISSA Lackey Primary BRISSA Lackey Danika [id number] Insurance:MEDICARE ACKERMANDOB: Community [address] PART A [facility] [id number], [place] Number: Repository [address]Iwm: 330 [id number] [phone] () Date:2017-11-13 11/16/2017 Secondary BRISSA Ziyad [place] Insurance:AARPPolicy ACKERMANDOB: Community Number: [id number] Hospital [id number] Repository Date:5614-57-27HA [address], [place] [address]QC: 11/16/2017 Tertiary NOT GIVENUNK [place] Insurance:SELF PAY [facility] Number: Effective Repository Date:2017-11-13 09/21/2017 BRISSA Lackey Primary BRISSA Lackey [place] [id number] [address] Insurance:MEDICARE ACKERMANDOB: Community [facility] BOX PART A [facility] [id number] Number: Repository [address]Kbe: 330 [id number] [phone] () Date:2017-05-15 09/21/2017 Secondary BRISSA M Danika Insurance:AARPPolicy ACKERMANDOB: Community Number: [id number] Hospital [id number] Repository Date:4245-40-15[address], [place] [address]PG: 09/21/2017 Tertiary NOT GIVENUNK [place] Insurance:SELF PAY [facility] Number: Effective Repository Date:2017-05-15 09/19/2017 Brissa Lackey Primary Brissa Lackey Danika [id number] Insurance:AARPPolicy AckermanDOB: [facility] Box Number: [id number] [id number] Repository [address]Rro: 330) Date:8893-37-00[phone] () [place], [place] [address]BC: 09/19/2017 Secondary Brissa M Danika Insurance:MEDICARE AckermanDOB: Community PART A [facility] [id number] Hospital Number: Repository [id number] Date:2017-09-19 09/19/2017 Tertiary NOT GIVENUNK [place] Insurance:SELF PAY [facility] Number: Effective Repository Date:2017-09-19 09/15/2017 Brissa Lackey Primary Brissa M [place] [id number] [address] Insurance:AARPPolicy AckermanDOB: [facility] Box Number: [id number] [id number] Repository [address]Kso: 330) Date:1047-70-86QA [phone] ( [place], [place] [address]BP: 09/15/2017 Secondary Brissa Garnica Insurance:MEDICARE AckermanDOB: Community [facility] [id number] Hospital Number: Repository [id number] Date:2017-09-15 09/15/2017 Tertiary NOT GIVENUNK [place] Insurance:SELF PAY [facility] Number: Effective Repository Date:2017-09-15
== END 2018-05-04 23:59 ==
LOC: WC 12:15
PROVIDERS: Family Provider Nurse Practitioner; PCP Nurse Practitioner; Referring Provider Surgery; Visit Provider Surgery
DX: I83.228 Varicose veins of left lower extremity with both ulcer of other part of lower extremity and inflammation (principal); L97.829 Non-pressure chronic ulcer of other part of left lower leg with unspecified severity; I89.0 Lymphedema, not elsewhere classified; E11.9 Type 2 diabetes mellitus without complications; K21.9 Gastro-esophageal reflux disease without esophagitis; M19.90 Unspecified osteoarthritis, unspecified site; R60.0 Localized edema; I25.10 Atherosclerotic heart disease of native coronary artery without angina pectoris; Z86.718 Personal history of other venous thrombosis and embolism; E66.9 Obesity, unspecified; Z68.35 Body mass index [BMI] 35.0-35.9, adult; Z91.19 Patient's noncompliance with other medical treatment and regimen; Z71.3 Dietary counseling and surveillance; E78.5 Hyperlipidemia, unspecified; I10 Essential (primary) hypertension; Z87.891 Personal history of nicotine dependence; I83.11 Varicose veins of right lower extremity with inflammation
CPT/HCPCS: 29580; 87070; 87075; 87205; 99212; G0463

== ENCOUNTER 2018-05-22 09:30 | Outpatient (RCR) | payer MEDICARE, OTHER, SELFPAY ==
[2018-05-05 02:10] VITALS: BP 152/72; PULSE 87; RESP 16; TEMP 36.9
[2018-05-08 09:50] VITALS: BP 149/57; PULSE 79; RESP 16; TEMP 36.5; BMI 35.7
--- NOTE | 2018-05-08 10:14 | PCM.WC.HP ---
(1) GERD (gastroesophageal reflux disease) Status: Chronic Current Visit: No Code(s): K21.9 - Gastro-esophageal reflux disease without esophagitis (2) Osteoarthritis Status: Chronic Current Visit: No Code(s): M19.90 - Unspecified osteoarthritis, unspecified site (3) Edema of both legs Status: Chronic Current Visit: Yes Code(s): R60.0 - Localized edema (4) Hiatal hernia Status: Chronic Current Visit: No Code(s): K44.9 - Diaphragmatic hernia without obstruction or gangrene (5) Venous stasis ulcer Status: Chronic Current Visit: Yes Qualifiers: Venous stasis ulcer site: calf Varicose vein presence: with varicose veins Laterality: left Non-pressure ulcer stage: with fat layer exposed Qualified Code(s): I83.022 - Varicose veins of left lower extremity with ulcer of calf; L97.222 - Non-pressure chronic ulcer of left calf with fat layer exposed Code(s): I83.009 - Varicose veins of unspecified lower extremity with ulcer of unspecified site; L97.909 - Non-pressure chronic ulcer of unspecified part of unspecified lower leg with unspecified severity (6) cataract surgery Status: Resolved Current Visit: No (7) Abnormal exercise myocardial perfusion study Status: Chronic Current Visit: No Code(s): R94.39 - Abnormal result of other cardiovascular function study (8) Palpitations Status: Chronic Current Visit: No Code(s): R00.2 - Palpitations (9) Heel spur Status: Resolved Current Visit: No Code(s): M77.30 - Calcaneal spur, unspecified foot Comment: right heel spur removed (10) H/O dilation and curettage Status: Resolved Current Visit: No Code(s): Z98.890 - Other specified postprocedural states (11) H/O tubal ligation Status: Resolved Current Visit: No Code(s): Z98.51 - Tubal ligation status (12) Lipoma Status: Resolved Current Visit: No Code(s): D17.9 - Benign lipomatous neoplasm, unspecified Comment: removed from right hip (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 Current Visit: No Code(s): K60.4 - Rectal fistula Comment: 1960 (14) Atherosclerotic heart disease of [place] coronary artery without angina pectoris Status: Chronic Current Visit: No Qualifiers: Code(s): I25.10 - Atherosclerotic heart disease of [place] coronary artery without angina pectoris (15) Cellulitis of left leg Status: Resolved Current Visit: No Code(s): L03.116 - Cellulitis of left lower limb (16) Failure to thrive Status: Chronic Current Visit: No Code(s): [id number] - (17) Positional vertigo Status: Chronic Current Visit: No Code(s): H81.10 - Benign paroxysmal vertigo, unspecified ear (18) Ulcer Status: Resolved Current Visit: No Code(s): L98.499 - Non-pressure chronic ulcer of skin of other sites with unspecified severity (19) Obesity Status: Chronic Current Visit: No Code(s): E66.9 - Obesity, unspecified (20) Hx of venous thrombosis and embolism Status: Chronic Current Visit: No Code(s): Z86.718 - Personal history of other venous thrombosis and embolism (21) history of cellulitis of leg Status: Chronic Current Visit: Yes (22) Leg swelling Status: Chronic Current Visit: Yes Code(s): M79.89 - Other specified soft tissue disorders (23) Hyperpigmentation of skin Status: Chronic Current Visit: Yes Code(s): L81.9 - Disorder of pigmentation, unspecified (24) Lipodermatosclerosis Status: Chronic Current Visit: Yes Code(s): I83.10 - Varicose veins of unspecified lower extremity with inflammation (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 Current Visit: Yes Code(s): I87.093 - Postthrombotic syndrome with other complications of bilateral lower extremity (26) Chronic venous hypertension (idiopathic) with inflammation of bilateral lower extremity Status: Chronic Current Visit: Yes Code(s): I87.323 - Chronic venous hypertension (idiopathic) with inflammation of bilateral lower extremity (27) Localized edema Status: Chronic Current Visit: Yes Code(s): R60.0 - Localized edema (28) Non-pressure chronic ulcer of left calf with fat layer exposed Status: Resolved Current Visit: Yes Code(s): L97.222 - Non-pressure chronic ulcer of left calf with fat layer exposed (29) 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 Current Visit: No Code(s): E11.59 - Type 2 diabetes mellitus with other circulatory complications (30) Generalized weakness Status: Chronic Current Visit: No Code(s): R53.1 - Weakness (31) Hyperlipidemia Status: Chronic Current Visit: No Qualifiers: Code(s): E78.5 - Hyperlipidemia, unspecified (32) Diabetes Status: Chronic Current Visit: No Code(s): E11.9 - Type 2 diabetes mellitus without complications (33) Hypertension Status: Chronic Current Visit: No Qualifiers: Code(s): I10 - Essential (primary) hypertension (34) Chronic venous hypertension (idiopathic) with ulcer of left lower extremity Status: Chronic Current Visit: Yes Code(s): I87.312 - Chronic venous hypertension (idiopathic) with ulcer of left lower extremity (35) Chronic venous stasis dermatitis Status: Chronic Current Visit: Yes Code(s): I87.2 - Venous insufficiency (chronic) (peripheral) (36) Non-pressure chronic ulcer of left ankle with fat layer exposed Status: Resolved Current Visit: Yes Code(s): L97.322 - Non-pressure chronic ulcer of left ankle with fat layer exposed (37) 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 Status: Chronic Current Visit: No Code(s): I70.249 - Atherosclerosis of [place] arteries of left leg with ulceration of unspecified site (38) Type 2 diabetes mellitus Status: Chronic Current Visit: No Code(s): E11.9 - Type 2 diabetes mellitus without complications History of Present Illness Chief Complaint: Severe swelling, edema, and lymphedema of the lower extremities associated with severe hyperpigmentation and lipodermatosclerosis; venous stasis dermatitis and venous stasis ulceration of left lower extremity; recent cat scratch of the left lower extremity History of Wound: This is a 77-year-old female who presents with an open wound on the distal aspect of the left lower extremity involving the gaiter area. According to the patient, she sustained a cat scratch by a strange cat approximately 3 weeks ago, which resulted in cellulitis. She has been evaluated by her primary care physician, at [facility], and has been prescribed Augmentin to be taken twice daily for a total of 10 days. She is in the midst of this prescription. Of significance, the patient has been treated in the past for manifestations of chronic venous disease, and has been advised of the proper conservative treatment measures relative to the management of this disease. Nonetheless, she has been largely noncompliant. She possesses graduated compression stockings, but has not been wearing them. She has been advised to elevate her lower extremities which is possible, but does so rarely. She sleeps in a recliner with her legs in a dependent position, which has been discouraged in the past. The patient is obese, which further exacerbates issues related to her chronic venous disease. Furthermore, she has been using peroxide topically at the site of the recent cat scratch. As mentioned, patient has a history of severe venous disease, and presents at this time with apparent exacerbation of her venous symptoms. This is likely due to her weight and noncompliance with recommended measures. The patient has been previously treated for an ulceration in the left lower extremity related to her venous disease. In 2010, the patient was treated for a deep vein thrombosis in the right lower extremity. She remained on Coumadin for many years. However, after gastrointestinal bleeding in September 2015, her Coumadin was discontinued. The patient has undergone vascular studies approximately 1 year ago, results of which revealed noncompressible vasculature at ankle level bilaterally, but normal digital-brachial indices bilaterally. 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 (Chronic) Positional vertigo (Chronic) Obesity (Chronic) Hx of venous thrombosis and embolism (Chronic) history of cellulitis of leg (Chronic) Leg swelling (Chronic) Hyperpigmentation of skin (Chronic) Lipodermatosclerosis (Chronic) 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) Localized edema (Chronic) 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 The patient underwent excision of a right hip lipoma in the past. Patient is a Ab0. Allergies/Adverse Reactions: Allergies atorvastatin calcium [From Lipitor] Allergy (Verified 09/21/17 11:28) Unknown ezetimibe [From Zetia] Allergy (Verified 09/21/17 11:28) Unknown lisinopril Allergy (Verified 09/21/17 11:28) Unknown neomycin [Neomycin] Allergy (Verified 09/21/17 11:28) Unknown neomycin sulfate [From Neosporin ([id number])] Allergy (Verified 09/21/17 11:28) Itching polymyxin B [Polymyxin B] Allergy (Verified 09/21/17 11:28) Unknown Sulfa (Sulfonamide Antibiotics) Allergy (Verified 09/21/17 11:28) Unknown tetracycline [Tetracycline] Allergy (Verified 09/21/17 11:28) Itching adhesive tape Adverse Reaction (Severe, Verified 09/21/17 11:28) Unknown Home Medications: Ambulatory Orders Medication Instructions Recorded Cholecalciferol (Vitamin D3) 2,000 unit PO DAILY 01/15/17 [Vitamin D3] Famotidine [Pepcid] 20 mg PO BID 01/15/17 Irbesartan [Avapro] 75 mg PO DAILY 01/15/17 Meclizine HCl [Antivert] 25 mg PO TID PRN PRN 01/15/17 Metformin HCl [Glucophage] 500 mg PO DAILY 01/15/17 Pentoxifylline [Trental] 400 mg PO TID 01/15/17 Potassium Chloride [K-Dur] 10 meq PO DAILY PRN 01/15/17 Pravastatin [Pravachol] 80 mg PO QHS 01/15/17 Torsemide [Demadex] 20 mg PO DAILY 01/15/17 cyanocobalamin (vit B-12) 1,000 1,000 mcg PO QDAY 09/21/17 mcg/mL oral drops - Family History Maternal Family History: Family History (Last Reviewed 09/21/17 @ 11:30 by Lila Costa) Mother CAD (coronary artery disease) Myocardial infarction Son Hypertension Brother Aortic aneurysm No pertinent history, - - Patient's father at age of 74 with a history of diabetes mellitus. The patient's mother at age of 59 with a myocardial infarction. Paternal Family History: Family History (Last Reviewed 09/21/17 @ 11:30 by Lila Costa) Mother CAD (coronary artery disease) Myocardial infarction Son Hypertension Brother Aortic aneurysm No pertinent history Smoking Status: Former smoker Tobacco Use: Non-smoker Review of Systems Constitutional: Denies: Chills, Fever, Weight Change Eyes: Denies: Pain, Vision Change HEENT: Denies: Difficulty Hearing, Difficulty Swallowing, Sinus Congestion Cardiovascular: Denies: Chest Pain, Palpitations Respiratory: Denies: Cough, Shortness of Breath Gastrointestinal: Denies: Diarrhea, Nausea, Vomiting Genitourinary: Denies: Dysuria, Hematuria Endocrine: Denies: Heat/ Cold Intolerance, Polydipsia, Polyuria Hematologic/ Lymphatic: Denies: Easy Bruising, Easy Bleeding - Physical Exam Vital Signs Temp Pulse Resp BP 97.7 F L 79 16 149/57 H 05/08/18 09:50 05/08/18 09:50 05/08/18 09:50 05/08/18 09:50 General: Alert, Oriented x3, Cooperative, No apparent distress, Well developed, Well nourished HEENT: Atraumatic, PERRLA, EOMI, Normocephalic Oral: Moist Mucosa Neck: No JVD Lungs: Normal air movement Abdomen: Non-Distended Extremities: No clubbing, No cyanosis, No Calf Tenderness, - - Mild swelling and edema persist in the left lower extremity. The ulceration on the left anterior tibial surface is smaller in size. The base of the ulceration is generally pink and healthy in appearance, with evidence of active healthy granulation tissue. There is a small amount of bioburden. There is no sign of infection or cellulitis. Dimensions are documented elsewhere. Chronic skin changes are noted, including hyperpigmentation and lipodermatosclerosis. Wound Measurements and Assessment WC - Nurse 1 - General Ulcer Measurement Start: 05/08/18 09:50 Freq: Status: Active Protocol: Activity Type Activity Date Activity User E-Sign Co-Sign Detail Recorded Client Recorded Date Recorded By Document 05/08/18 09:50 [email or web address] [id number] 05/08/18 09:55 JF 05/08/18 09:50 Wound Center Nurse 1 [Ulcer Assessment] #2 cat scratch-cellulits -Combined with other wound No -Current Size (cm) - Length 2.4 -Current Size (cm) - Width 5.3 -Current Size (cm) - Depth 0.1 -Total Square Cm 12.72 -Photo Taken No -Epithelialization Medium 34-66% -Tunneling No -Undermining/Tunneling No -Circular Undermining No -Exudate Amt Medium (34-66%) -Exudate Type Serosanguineous -Wound Margin Flat & Intact -Granulation Amt Large (67-100%) -Granulation Quality Red -Slough/Fibrin Yes -Necrosis Amt Small (1-33%) -Necrotic Tissue Type Adherent Slough -Structure Exposed N/A -Texture (Leslye-wound Skin Appearance) Assessed Localized Edema -Moisture (Leslye-wound Skin Appearance Assessed ) Dry/Scaly -Color (Leslye-wound Skin Appearance) Assessed Hemosiderin Staining -Temperature (Leslye-wound Skin No Abnormality Appearance) (Pt Warm) -Tenderness on Palpation (Leslye-wound No Skin Appearance) -Ulcer Cleansing Wound Cleanser -Foul Odor after Cleansing No -Anesthetic Used 4% Lidocaine Solution [Edema Assessment] -Lower Limb Edema Present Yes -Left Calf (cm) 41.0 -Left Ankle (cm) 23.6 WC - Nurse 2 - General Ulcer CM Notes Start: 05/08/18 09:50 Freq: Status: Active Protocol: Activity Type Activity Date Activity User E-Sign Co-Sign Detail Recorded Client Recorded Date Recorded By Document 05/08/18 10:06 DV [id number] 05/08/18 10:12 DV 05/08/18 10:06 Wound Center Nurse 2 [Procedure/Treatment] #2 cat scratch-cellulits -Time 10:06 -Correct Patient Yes -Correct Side, Site, Position Yes -Correct Procedure Yes -Procedure Performed Yes -Type of Procedure Debridement -Clinical Debridement Subcutaneous -Post Debridement Size (cm) - Length 2.5 -Post Debridement Size (cm) - Width 5.5 -Post Debridement Size (cm) - Depth 0.1 -Total Square Cm 13.75 -Wound/Ulcer Outcome Not Healed -Ulcer Cleansing Rinsed/ Irrigated with Saline -Foul Odor after Cleansing No -Bioengineered Tissue No -Bleeding Controlled with Pressure -Treatment Response Procedure Tolerated Well [See Physician Procedure note for Specifics] Pain Scale: 0-10 Numeric [Pain] -Is Patient Pain Free? Yes Neurological: Cranial nerves II-XII grossly intact, Neuro grossly intact Psych/Mental Status: Normal Affect, Appropriate, Alert and oriented to time, place, person, mood and affect Debridement Note Post-Debridement Measurements/Treatment WC - Nurse 2 - General Ulcer CM Notes Start: 05/08/18 09:50 Freq: Status: Active Protocol: Activity Type Activity Date Activity User E-Sign Co-Sign Detail Recorded Client Recorded Date Recorded By Document 05/08/18 10:06 DV [id number] 05/08/18 10:12 DV 05/08/18 10:06 Wound Center Nurse 2 #2 cat scratch-cellulits -Time 10:06 -Correct Patient Yes -Correct Side, Site, Position Yes -Correct Procedure Yes -Procedure Performed Yes -Type of Procedure Debridement -Clinical Debridement Subcutaneous -Post Debridement Size (cm) - Length 2.5 -Post Debridement Size (cm) - Width 5.5 -Post Debridement Size (cm) - Depth 0.1 -Total Square Cm 13.75 -Wound/Ulcer Outcome Not Healed -Ulcer Cleansing Rinsed/ Irrigated with Saline -Foul Odor after Cleansing No -Bioengineered Tissue No -Bleeding Controlled with Pressure -Treatment Response Procedure Tolerated Well Pain Scale: 0-10 Numeric Is Patient Pain Free? Yes Laterality: Left - Anterior tibial surface Type of Debridement: Excisional debridement Anesthesia Used: 5% Lidocaine Gel Depth: Down to and including healthy tissue, in the subcutaneous layer Percentage of wound debrided: 100 Instrument Used: 3mm curette Severity: Fat Layer Exposed Amount of bleeding with debridement: Mild Bleeding Controlled with: Compression and gauze Patient tolerated procedure well Assessment/Plan Active Problems (Last Updated 09/21/17 @ 11:42 by ARCHANA Ontiveros) Edema of both legs (Chronic) Venous stasis ulcer (Chronic) history of cellulitis of leg (Chronic) Leg swelling (Chronic) Hyperpigmentation of skin (Chronic) Lipodermatosclerosis (Chronic) 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 She has been previously treated for ulcerations in the left lower extremity. However, despite clear instructions as to the appropriate management of her chronic venous disease, the patient has been largely noncompliant. She sits for prolonged periods of time. She is not very active. She sleeps in recliner with her legs in a dependent position. She does not reliably elevate her lower extreme these each day. She has failed to use compression as previously prescribed. Furthermore, she has been using peroxide topically to the ulceration in the distal left lower extremity. She relates a recent cat scratch to this area approximately 3 weeks ago, but the appearance of the ulceration is more consistent with the patient's history of chronic venous disease. The lack of compliance with previously recommended measures is likely the cause of the patient's presenting symptoms and manifestations. Plan: We have discussed the implementation of conservative treatment measures, and redoubling of the patient's efforts in this regard. The patient appears somewhat resistant to this idea. She has been largely noncompliant in the past. Leg elevation has been recommended. Her legs are to be elevated to heart level, or higher. This is to be accomplished during day and night time hours. She has been encouraged to sleep on a flat surface at night. Activity has been recommended. Prolonged idle sitting has been discouraged. Weight loss has been recommended. We are to continue compression to the left lower extremity by means of an Unna boot, which will be applied today, and changed twice weekly. The patient has been advised that the use of peroxide topically has been counterproductive. Patient has now completed her prescription for Augmentin twice daily for 10 days. Wound cultures have been obtained, and results were negative. The patient has previous venous and arterial studies, which do not appear to require repeating. The patient will return in 2 weeks for reassessment. Her Unna boot will continue to be changed twice weekly. The patient is not a smoker. Influenza vaccine was not administered today. Patient weighs 171 pounds. She stands 4 feet 10 inches tall, her BMI is 35.7, which places her in an obese class II category. Weight loss has been recommended, in collaboration with the patient's primary care physician has been advised in this regard.
[2018-05-11 11:53] VITALS: BP 151/69; PULSE 78; RESP 18; TEMP 36.8; BMI 35.7
[2018-05-15 15:17] VITALS: BP 148/62; PULSE 64; RESP 18; TEMP 37.3; BMI 35.7
[2018-05-18 11:46] VITALS: BP 154/72; PULSE 89; RESP 16; TEMP 37.4; BMI 35.7
--- NOTE | 2018-05-18 12:45 | PCM.WC.HP ---
(1) Diabetes Status: Chronic Current Visit: No Qualifiers: Diabetes mellitus type: type 2 Diabetes mellitus terminal carman insulin use: without terminal carman use Diabetes mellitus complication status: without complication Qualified Code(s): E11.9 - Type 2 diabetes mellitus without complications Code(s): E11.9 - Type 2 diabetes mellitus without complications (2) Failure to thrive Status: Chronic Current Visit: Yes Code(s): [id number] - (3) GERD (gastroesophageal reflux disease) Status: Chronic Current Visit: Yes Code(s): K21.9 - Gastro-esophageal reflux disease without esophagitis (4) Decubitus ulcer of left buttock, stage 2 Status: Acute Current Visit: Yes Code(s): L89.322 - Pressure ulcer of left buttock, stage 2 History of Present Illness Chief Complaint: Here for nurse visit but is complaining about burning and pain in her left buttocks ulcer History of Wound: This is a 77-year-old white female that has history of those buttocks ulcer approximately 2 years ago and closed it on her own with bag balm has recurrent opening that is been trying to take care of her to self with [id number] zinc oxide. Patient complains of increased pain and burning and unable to take it anymore. She has a small opening on her left buttocks cheek that is tender to palpate erythematous around the edges has a crusted yellow slough across it. 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) Positional vertigo (Chronic) Obesity (Chronic) Hx of venous thrombosis and embolism (Chronic) history of cellulitis of leg (Chronic) Leg swelling (Chronic) Hyperpigmentation of skin (Chronic) Lipodermatosclerosis (Chronic) 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) Localized edema (Chronic) 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 The patient underwent excision of a right hip lipoma in the past. Patient is a Ab0. Allergies/Adverse Reactions: Allergies atorvastatin calcium [From Lipitor] Allergy (Verified 09/21/17 11:28) Unknown ezetimibe [From Zetia] Allergy (Verified 09/21/17 11:28) Unknown lisinopril Allergy (Verified 09/21/17 11:28) Unknown neomycin [Neomycin] Allergy (Verified 09/21/17 11:28) Unknown neomycin sulfate [From Neosporin ([id number])] Allergy (Verified 09/21/17 11:28) Itching polymyxin B [Polymyxin B] Allergy (Verified 09/21/17 11:28) Unknown Sulfa (Sulfonamide Antibiotics) Allergy (Verified 09/21/17 11:28) Unknown tetracycline [Tetracycline] Allergy (Verified 09/21/17 11:28) Itching adhesive tape Adverse Reaction (Severe, Verified 09/21/17 11:28) Unknown Home Medications: Ambulatory Orders Medication Instructions Recorded Cholecalciferol (Vitamin D3) 2,000 unit PO DAILY 01/15/17 [Vitamin D3] Famotidine [Pepcid] 20 mg PO BID 01/15/17 Irbesartan [Avapro] 75 mg PO DAILY 01/15/17 Meclizine HCl [Antivert] 25 mg PO TID PRN PRN 01/15/17 Metformin HCl [Glucophage] 500 mg PO DAILY 01/15/17 Pentoxifylline [Trental] 400 mg PO TID 01/15/17 Potassium Chloride [K-Dur] 10 meq PO DAILY PRN 01/15/17 Pravastatin [Pravachol] 80 mg PO QHS 01/15/17 Torsemide [Demadex] 20 mg PO DAILY 01/15/17 cyanocobalamin (vit B-12) 1,000 1,000 mcg PO QDAY 09/21/17 mcg/mL oral drops - Family History Maternal Family History: Family History (Last Reviewed 09/21/17 @ 11:30 by Lila Costa) Mother CAD (coronary artery disease) Myocardial infarction Son Hypertension Brother Aortic aneurysm No pertinent history, - - Patient's father at age of 74 with a history of diabetes mellitus. The patient's mother at age of 59 with a myocardial infarction. Paternal Family History: Family History (Last Reviewed 09/21/17 @ 11:30 by Lila Costa) Mother CAD (coronary artery disease) Myocardial infarction Son Hypertension Brother Aortic aneurysm No pertinent history Smoking Status: Former smoker Tobacco Use: Non-smoker Review of Systems Constitutional: Denies: Chills, Fever Eyes: Denies: Blurred vision, Drainage, Pain HEENT: Denies: Difficulty Hearing, Difficulty Swallowing, Sore Throat, Visual Changes Cardiovascular: Denies: Chest Pain, Palpitations, Syncope Respiratory: Denies: Cough, Shortness of Breath Gastrointestinal: Denies: Abdominal Pain, Nausea, Vomiting Genitourinary: Denies: Dysuria, Frequency Musculoskeletal: Denies: Joint Pain, Muscle pain Skin: Denies: Jaundice, Rash Neurological: Denies: Balance problems, Change in Speech, Difficulty swallowing, Focal weakness Psychiatric: Denies: Anxiety, Depression Endocrine: Denies: Change in Body Habitus Hematologic/ Lymphatic: Denies: Adenopathy - Physical Exam Vital Signs Temp Pulse Resp BP 99.3 F H 89 16 154/72 H 05/18/18 11:46 05/18/18 11:46 05/18/18 11:46 05/18/18 11:46 General: Oriented x3, Cooperative, Well developed HEENT: Atraumatic, PERRLA Oral: Moist Mucosa Neck: Supple, No JVD Lungs: Clear to auscultation, Normal air movement Cardiovascular: Regular rate, Regular Rhythm Abdomen: Bowel Sounds Present, Soft, Non Tender, No Hepato-splenomegaly Extremities: No clubbing, No edema Skin: Ulcer/ Wound - Decubitus ulcer left buttocks stage II Wound Measurements and Assessment WC - Nurse 1 - General Ulcer Measurement Start: 05/08/18 09:50 Freq: Status: Active Protocol: Activity Type Activity Date Activity User E-Sign Co-Sign Detail Recorded Client Recorded Date Recorded By Document 05/15/18 15:17 DV [id number] 05/15/18 15:35 DV Document 05/18/18 11:46 [facility] [id number] 05/18/18 12:03 BMF 05/15/18 05/18/18 15:17 11:46 Wound Center Nurse 1 [Ulcer Assessment] #3- LT BUTTOCK -Combined with other wound No -Current Size (cm) - Length 0.9 -Current Size (cm) - Width 0.6 -Current Size (cm) - Depth 0.2 -Total Square Cm 0.54 -Date of Last Picture (Recall this 05/18/18 field) -Photo Taken Yes -Epithelialization None Present -Tunneling No -Undermining/Tunneling No -Circular Undermining No -Exudate Amt None Present (0 %) -Wound Margin Thickened & Rolled Under -Granulation Amt Medium (34-66%) -Granulation Quality Red -Slough/Fibrin Yes -Necrosis Amt Medium (34-66%) -Necrotic Tissue Type Adherent Slough -Texture (Leslye-wound Skin Appearance) Scarring -Moisture (Leslye-wound Skin Appearance Dry/Scaly ) -Color (Leslye-wound Skin Appearance) Erythema -Temperature (Leslye-wound Skin No Abnormality Appearance) (Pt Warm) -Tenderness on Palpation (Leslye-wound No Skin Appearance) -Ulcer Cleansing Rinsed/ Irrigated with Saline -Foul Odor after Cleansing No -Anesthetic Used 5% Lidocaine Gel #2 cat scratch-cellulits -Combined with other wound No -Current Size (cm) - Length 0.7 -Current Size (cm) - Width 0.4 -Current Size (cm) - Depth 0.1 -Total Square Cm 0.28 -Photo Taken No -Epithelialization None Present -Tunneling No -Undermining/Tunneling No -Circular Undermining No -Classification - Thickness Full Thickness without Exposed Support Structure -Slough/Fibrin No -Necrosis Amt None Present (0 %) -Structure Exposed None/Limited to Skin Breakdown -Texture (Leslye-wound Skin Appearance) No Abnormality Assessed -Moisture (Leslye-wound Skin Appearance No Abnormality ) Assessed -Color (Leslye-wound Skin Appearance) No Abnormality Assessed -Temperature (Leslye-wound Skin No Abnormality Appearance) (Pt Warm) -Tenderness on Palpation (Leslye-wound No Skin Appearance) -Ulcer Cleansing Rinsed/ Irrigated with Saline -Foul Odor after Cleansing No [Edema Assessment] -Lower Limb Edema Present No Yes -Left Calf (cm) 45.2 -Left Ankle (cm) 25.2 WC - Nurse 2 - General Ulcer CM Notes Start: 05/08/18 09:50 Freq: Status: Active Protocol: Activity Type Activity Date Activity User E-Sign Co-Sign Detail Recorded Client Recorded Date Recorded By Document 05/18/18 12:21 MW [id number] 05/18/18 12:25 MW 05/18/18 12:21 Wound Center Nurse 2 [Procedure/Treatment] #3- LT BUTTOCK -Time 12:21 -Correct Patient Yes -Correct Side, Site, Position Yes -Correct Procedure Yes -Procedure Performed Yes -Type of Procedure Debridement -Clinical Debridement Subcutaneous -Post Debridement Size (cm) - Length 1.0 -Post Debridement Size (cm) - Width 1.0 -Post Debridement Size (cm) - Depth 0.1 -Total Square Cm 1.00 -Wound/Ulcer Outcome Not Healed -Ulcer Cleansing Rinsed/ Irrigated with Saline -Foul Odor after Cleansing No -Bioengineered Tissue No -Bleeding Controlled with Pressure -Offloading No -Treatment Response Procedure Tolerated Well [See Physician Procedure note for Specifics] Pain Scale: 0-10 Numeric [Pain] -Is Patient Pain Free? Yes Musculoskeletal: No Tenderness to Palpation of Joints or Extremities Lymphatic: No Cervical, Supraclavicular, or Inguinal Adenopathy Neurological: Cranial nerves II-XII grossly intact, Neuro grossly intact Psych/Mental Status: Normal Affect, Appropriate Debridement Note Post-Debridement Measurements/Treatment WC - Nurse 2 - General Ulcer CM Notes Start: 05/08/18 09:50 Freq: Status: Active Protocol: Activity Type Activity Date Activity User E-Sign Co-Sign Detail Recorded Client Recorded Date Recorded By Document 05/08/18 10:06 DV [id number] 05/08/18 10:12 DV Document 05/18/18 12:21 MW [id number] 05/18/18 12:25 MW 05/08/18 05/18/18 10:06 12:21 Wound Center Nurse 2 #3- LT BUTTOCK -Time 12:21 -Correct Patient Yes -Correct Side, Site, Position Yes -Correct Procedure Yes -Procedure Performed Yes -Type of Procedure Debridement -Clinical Debridement Subcutaneous -Post Debridement Size (cm) - Length 1.0 -Post Debridement Size (cm) - Width 1.0 -Post Debridement Size (cm) - Depth 0.1 -Total Square Cm 1.00 -Wound/Ulcer Outcome Not Healed -Ulcer Cleansing Rinsed/ Irrigated with Saline -Foul Odor after Cleansing No -Bioengineered Tissue No -Bleeding Controlled with Pressure -Offloading No -Treatment Response Procedure Tolerated Well #2 cat scratch-cellulits -Time 10:06 -Correct Patient Yes -Correct Side, Site, Position Yes -Correct Procedure Yes -Procedure Performed Yes -Type of Procedure Debridement -Clinical Debridement Subcutaneous -Post Debridement Size (cm) - Length 2.5 -Post Debridement Size (cm) - Width 5.5 -Post Debridement Size (cm) - Depth 0.1 -Total Square Cm 13.75 -Wound/Ulcer Outcome Not Healed -Ulcer Cleansing Rinsed/ Irrigated with Saline -Foul Odor after Cleansing No -Bioengineered Tissue No -Bleeding Controlled with Pressure -Treatment Response Procedure Tolerated Well Pain Scale: 0-10 Numeric Is Patient Pain Free? Yes Yes Wound debrided: Decubitus buttocks Laterality: Left Wound Grade/Stage: Stage II Type of Debridement: Excisional debridement Anesthesia Used: 5% Lidocaine Gel Depth: Down to and including healthy tissue, in the subcutaneous layer Percentage of wound debrided: 100 Instrument Used: 5mm curette Tissue Removed: Fibrin and slough Severity: Limited To Skin Breakdown Amount of bleeding with debridement: Mild Bleeding Controlled with: Compression and gauze Patient tolerated procedure well Assessment/Plan Active Problems (Last Updated 09/21/17 @ 11:42 by ARCHANA Ontiveros) GERD (gastroesophageal reflux disease) (Chronic) Edema of both legs (Chronic) Venous stasis ulcer (Chronic) Decubitus ulcer of left buttock, stage 2 (Acute) 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 Failure to thrive. Diabetes controlled Plan: Xeroform gauze and tape to buttocks once or twice a day. Follow-up in [address] Brothers
--- NOTE | 2018-05-18 12:49 | HP.PCM_ITS ---
(1) Diabetes Status: Chronic Current Visit: No Qualifiers: Diabetes mellitus type: type 2 Diabetes mellitus intermediate project manager insulin use: without intermediate project manager use Diabetes mellitus complication status: without complication Qualified Code(s): E11.9 - Type 2 diabetes mellitus without complications Code(s): E11.9 - Type 2 diabetes mellitus without complications (2) Failure to thrive Status: Chronic Current Visit: Yes Code(s): LVP5309 - (3) GERD (gastroesophageal reflux disease) Status: Chronic Current Visit: Yes Code(s): K21.9 - Gastro-esophageal reflux disease without esophagitis (4) Decubitus ulcer of left buttock, stage 2 Status: Acute Current Visit: Yes Code(s): L89.322 - Pressure ulcer of left buttock, stage 2 History of Present Illness Chief Complaint: Here for nurse visit but is complaining about burning and pain in her left buttocks ulcer History of Wound: This is a 77-year-old white female that has history of those buttocks ulcer approximately 2 years ago and closed it on her own with bag balm has recurrent opening that is been trying to take care of her to self with [id number] zinc oxide. Patient complains of increased pain and burning and unable to take it anymore. She has a small opening on her left buttocks cheek that is tender to palpate erythematous around the edges has a crusted yellow slough across it. 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) Positional vertigo (Chronic) Obesity (Chronic) Hx of venous thrombosis and embolism (Chronic) history of cellulitis of leg (Chronic) Leg swelling (Chronic) Hyperpigmentation of skin (Chronic) Lipodermatosclerosis (Chronic) 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) Localized edema (Chronic) 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 The patient underwent excision of a right hip lipoma in the past. Patient is a Ab0. Allergies/Adverse Reactions: Allergies atorvastatin calcium [From Lipitor] Allergy (Verified 09/21/17 11:28) Unknown ezetimibe [From Zetia] Allergy (Verified 09/21/17 11:28) Unknown lisinopril Allergy (Verified 09/21/17 11:28) Unknown neomycin [Neomycin] Allergy (Verified 09/21/17 11:28) Unknown neomycin sulfate [From Neosporin ([id number])] Allergy (Verified 09/21/17 11:28) Itching polymyxin B [Polymyxin B] Allergy (Verified 09/21/17 11:28) Unknown Sulfa (Sulfonamide Antibiotics) Allergy (Verified 09/21/17 11:28) Unknown tetracycline [Tetracycline] Allergy (Verified 09/21/17 11:28) Itching adhesive tape Adverse Reaction (Severe, Verified 09/21/17 11:28) Unknown Home Medications: Ambulatory Orders Medication Instructions Recorded Cholecalciferol (Vitamin D3) 2,000 unit PO DAILY 01/15/17 [Vitamin D3] Famotidine [Pepcid] 20 mg PO BID 01/15/17 Irbesartan [Avapro] 75 mg PO DAILY 01/15/17 Meclizine HCl [Antivert] 25 mg PO TID PRN PRN 01/15/17 Metformin HCl [Glucophage] 500 mg PO DAILY 01/15/17 Pentoxifylline [Trental] 400 mg PO TID 01/15/17 Potassium Chloride [K-Dur] 10 meq PO DAILY PRN 01/15/17 Pravastatin [Pravachol] 80 mg PO QHS 01/15/17 Torsemide [Demadex] 20 mg PO DAILY 01/15/17 cyanocobalamin (vit B-12) 1,000 1,000 mcg PO QDAY 09/21/17 mcg/mL oral drops - Family History Maternal Family History: Family History (Last Reviewed 09/21/17 @ 11:30 by Lila Costa) Mother CAD (coronary artery disease) Myocardial infarction Son Hypertension Brother Aortic aneurysm No pertinent history, - - Patient's father at age of 74 with a history of diabetes mellitus. The patient's mother at age of 59 with a myocardial infarction. Paternal Family History: Family History (Last Reviewed 09/21/17 @ 11:30 by Lila Costa) Mother CAD (coronary artery disease) Myocardial infarction Son Hypertension Brother Aortic aneurysm No pertinent history Smoking Status: Former smoker Tobacco Use: Non-smoker Review of Systems Constitutional: Denies: Chills, Fever Eyes: Denies: Blurred vision, Drainage, Pain HEENT: Denies: Difficulty Hearing, Difficulty Swallowing, Sore Throat, Visual Changes Cardiovascular: Denies: Chest Pain, Palpitations, Syncope Respiratory: Denies: Cough, Shortness of Breath Gastrointestinal: Denies: Abdominal Pain, Nausea, Vomiting Genitourinary: Denies: Dysuria, Frequency Musculoskeletal: Denies: Joint Pain, Muscle pain Skin: Denies: Jaundice, Rash Neurological: Denies: Balance problems, Change in Speech, Difficulty swallowing, Focal weakness Psychiatric: Denies: Anxiety, Depression Endocrine: Denies: Change in Body Habitus Hematologic/ Lymphatic: Denies: Adenopathy - Physical Exam Vital Signs Temp Pulse Resp BP 99.3 F H 89 16 154/72 H 05/18/18 11:46 05/18/18 11:46 05/18/18 11:46 05/18/18 11:46 General: Oriented x3, Cooperative, Well developed HEENT: Atraumatic, PERRLA Oral: Moist Mucosa Neck: Supple, No JVD Lungs: Clear to auscultation, Normal air movement Cardiovascular: Regular rate, Regular Rhythm Abdomen: Bowel Sounds Present, Soft, Non Tender, No Hepato-splenomegaly Extremities: No clubbing, No edema Skin: Ulcer/ Wound - Decubitus ulcer left buttocks stage II Wound Measurements and Assessment WC - Nurse 1 - General Ulcer Measurement Start: 05/08/18 09:50 Freq: Status: Active Protocol: Activity Type Activity Date Activity User E-Sign Co-Sign Detail Recorded Client Recorded Date Recorded By Document 05/15/18 15:17 DV [id number] 05/15/18 15:35 DV Document 05/18/18 11:46 [facility] [id number] 05/18/18 12:03 BMF 05/15/18 05/18/18 15:17 11:46 Wound Center Nurse 1 [Ulcer Assessment] #3- LT BUTTOCK -Combined with other wound No -Current Size (cm) - Length 0.9 -Current Size (cm) - Width 0.6 -Current Size (cm) - Depth 0.2 -Total Square Cm 0.54 -Date of Last Picture (Recall this 05/18/18 field) -Photo Taken Yes -Epithelialization None Present -Tunneling No -Undermining/Tunneling No -Circular Undermining No -Exudate Amt None Present (0 %) -Wound Margin Thickened & Rolled Under -Granulation Amt Medium (34-66%) -Granulation Quality Red -Slough/Fibrin Yes -Necrosis Amt Medium (34-66%) -Necrotic Tissue Type Adherent Slough -Texture (Leslye-wound Skin Appearance) Scarring -Moisture (Leslye-wound Skin Appearance Dry/Scaly ) -Color (Leslye-wound Skin Appearance) Erythema -Temperature (Leslye-wound Skin No Abnormality Appearance) (Pt Warm) -Tenderness on Palpation (Leslye-wound No Skin Appearance) -Ulcer Cleansing Rinsed/ Irrigated with Saline -Foul Odor after Cleansing No -Anesthetic Used 5% Lidocaine Gel #2 cat scratch-cellulits -Combined with other wound No -Current Size (cm) - Length 0.7 -Current Size (cm) - Width 0.4 -Current Size (cm) - Depth 0.1 -Total Square Cm 0.28 -Photo Taken No -Epithelialization None Present -Tunneling No -Undermining/Tunneling No -Circular Undermining No -Classification - Thickness Full Thickness without Exposed Support Structure -Slough/Fibrin No -Necrosis Amt None Present (0 %) -Structure Exposed None/Limited to Skin Breakdown -Texture (Leslye-wound Skin Appearance) No Abnormality Assessed -Moisture (Leslye-wound Skin Appearance No Abnormality ) Assessed -Color (Leslye-wound Skin Appearance) No Abnormality Assessed -Temperature (Leslye-wound Skin No Abnormality Appearance) (Pt Warm) -Tenderness on Palpation (Leslye-wound No Skin Appearance) -Ulcer Cleansing Rinsed/ Irrigated with Saline -Foul Odor after Cleansing No [Edema Assessment] -Lower Limb Edema Present No Yes -Left Calf (cm) 45.2 -Left Ankle (cm) 25.2 WC - Nurse 2 - General Ulcer CM Notes Start: 05/08/18 09:50 Freq: Status: Active Protocol: Activity Type Activity Date Activity User E-Sign Co-Sign Detail Recorded Client Recorded Date Recorded By Document 05/18/18 12:21 MW [id number] 05/18/18 12:25 MW 05/18/18 12:21 Wound Center Nurse 2 [Procedure/Treatment] #3- LT BUTTOCK -Time 12:21 -Correct Patient Yes -Correct Side, Site, Position Yes -Correct Procedure Yes -Procedure Performed Yes -Type of Procedure Debridement -Clinical Debridement Subcutaneous -Post Debridement Size (cm) - Length 1.0 -Post Debridement Size (cm) - Width 1.0 -Post Debridement Size (cm) - Depth 0.1 -Total Square Cm 1.00 -Wound/Ulcer Outcome Not Healed -Ulcer Cleansing Rinsed/ Irrigated with Saline -Foul Odor after Cleansing No -Bioengineered Tissue No -Bleeding Controlled with Pressure -Offloading No -Treatment Response Procedure Tolerated Well [See Physician Procedure note for Specifics] Pain Scale: 0-10 Numeric [Pain] -Is Patient Pain Free? Yes Musculoskeletal: No Tenderness to Palpation of Joints or Extremities Lymphatic: No Cervical, Supraclavicular, or Inguinal Adenopathy Neurological: Cranial nerves II-XII grossly intact, Neuro grossly intact Psych/Mental Status: Normal Affect, Appropriate Debridement Note Post-Debridement Measurements/Treatment WC - Nurse 2 - General Ulcer CM Notes Start: 05/08/18 09:50 Freq: Status: Active Protocol: Activity Type Activity Date Activity User E-Sign Co-Sign Detail Recorded Client Recorded Date Recorded By Document 05/08/18 10:06 DV [id number] 05/08/18 10:12 DV Document 05/18/18 12:21 MW [id number] 05/18/18 12:25 MW 05/08/18 05/18/18 10:06 12:21 Wound Center Nurse 2 #3- LT BUTTOCK -Time 12:21 -Correct Patient Yes -Correct Side, Site, Position Yes -Correct Procedure Yes -Procedure Performed Yes -Type of Procedure Debridement -Clinical Debridement Subcutaneous -Post Debridement Size (cm) - Length 1.0 -Post Debridement Size (cm) - Width 1.0 -Post Debridement Size (cm) - Depth 0.1 -Total Square Cm 1.00 -Wound/Ulcer Outcome Not Healed -Ulcer Cleansing Rinsed/ Irrigated with Saline -Foul Odor after Cleansing No -Bioengineered Tissue No -Bleeding Controlled with Pressure -Offloading No -Treatment Response Procedure Tolerated Well #2 cat scratch-cellulits -Time 10:06 -Correct Patient Yes -Correct Side, Site, Position Yes -Correct Procedure Yes -Procedure Performed Yes -Type of Procedure Debridement -Clinical Debridement Subcutaneous -Post Debridement Size (cm) - Length 2.5 -Post Debridement Size (cm) - Width 5.5 -Post Debridement Size (cm) - Depth 0.1 -Total Square Cm 13.75 -Wound/Ulcer Outcome Not Healed -Ulcer Cleansing Rinsed/ Irrigated with Saline -Foul Odor after Cleansing No -Bioengineered Tissue No -Bleeding Controlled with Pressure -Treatment Response Procedure Tolerated Well Pain Scale: 0-10 Numeric Is Patient Pain Free? Yes Yes Wound debrided: Decubitus buttocks Laterality: Left Wound Grade/Stage: Stage II Type of Debridement: Excisional debridement Anesthesia Used: 5% Lidocaine Gel Depth: Down to and including healthy tissue, in the subcutaneous layer Percentage of wound debrided: 100 Instrument Used: 5mm curette Tissue Removed: Fibrin and slough Severity: Limited To Skin Breakdown Amount of bleeding with debridement: Mild Bleeding Controlled with: Compression and gauze Patient tolerated procedure well Assessment/Plan Active Problems (Last Updated 09/21/17 @ 11:42 by ARCHANA Ontiveros) GERD (gastroesophageal reflux disease) (Chronic) Edema of both legs (Chronic) Venous stasis ulcer (Chronic) Decubitus ulcer of left buttock, stage 2 (Acute) 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 Failure to thrive. Diabetes controlled Plan: Xeroform gauze and tape to buttocks once or twice a day. Follow-up in [address] Brothers
[2018-05-18 14:42] LABS: Prealbumin 21.8 mg/dL (20.0-40.0)
[2018-05-22 09:51] VITALS: BMI 35.7
--- NOTE | 2018-05-22 11:14 | PCM.WC.HP ---
(1) GERD (gastroesophageal reflux disease) Status: Chronic Current Visit: Yes Code(s): K21.9 - Gastro-esophageal reflux disease without esophagitis (2) Osteoarthritis Status: Chronic Current Visit: No Code(s): M19.90 - Unspecified osteoarthritis, unspecified site (3) Edema of both legs Status: Chronic Current Visit: Yes Code(s): R60.0 - Localized edema (4) Hiatal hernia Status: Chronic Current Visit: No Code(s): K44.9 - Diaphragmatic hernia without obstruction or gangrene (5) Venous stasis ulcer Status: Chronic Current Visit: Yes Qualifiers: Venous stasis ulcer site: calf Varicose vein presence: with varicose veins Laterality: left Non-pressure ulcer stage: with fat layer exposed Qualified Code(s): I83.022 - Varicose veins of left lower extremity with ulcer of calf; L97.222 - Non-pressure chronic ulcer of left calf with fat layer exposed Code(s): I83.009 - Varicose veins of unspecified lower extremity with ulcer of unspecified site; L97.909 - Non-pressure chronic ulcer of unspecified part of unspecified lower leg with unspecified severity (6) Abnormal exercise myocardial perfusion study Status: Chronic Current Visit: No Code(s): R94.39 - Abnormal result of other cardiovascular function study (7) Palpitations Status: Chronic Current Visit: No Code(s): R00.2 - Palpitations (8) Rectal fistula Status: Chronic Current Visit: No Code(s): K60.4 - Rectal fistula Comment: 1960 (9) 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 Status: Chronic Current Visit: No Qualifiers: Code(s): I25.10 - 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 (10) Failure to thrive Status: Chronic Current Visit: Yes Code(s): [id number] - (11) Positional vertigo Status: Chronic Current Visit: No Code(s): H81.10 - Benign paroxysmal vertigo, unspecified ear (12) Obesity Status: Chronic Current Visit: No Code(s): E66.9 - Obesity, unspecified (13) Hx of venous thrombosis and embolism Status: Chronic Current Visit: No Code(s): Z86.718 - Personal history of other venous thrombosis and embolism (14) history of cellulitis of leg Status: Chronic Current Visit: Yes (15) Leg swelling Status: Chronic Current Visit: Yes Code(s): M79.89 - Other specified soft tissue disorders (16) Hyperpigmentation of skin Status: Chronic Current Visit: Yes Code(s): L81.9 - Disorder of pigmentation, unspecified (17) Lipodermatosclerosis Status: Chronic Current Visit: Yes Code(s): I83.10 - Varicose veins of unspecified lower extremity with inflammation (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 Current Visit: Yes Code(s): I87.093 - Postthrombotic syndrome with other complications of bilateral lower extremity (19) Chronic venous hypertension (idiopathic) with inflammation of bilateral lower extremity Status: Chronic Current Visit: Yes Code(s): I87.323 - Chronic venous hypertension (idiopathic) with inflammation of bilateral lower extremity (20) Localized edema Status: Chronic Current Visit: Yes Code(s): R60.0 - Localized edema (21) Non-pressure chronic ulcer of left calf with fat layer exposed Status: Resolved Current Visit: Yes Code(s): L97.222 - Non-pressure chronic ulcer of left calf with fat layer exposed (22) 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 Current Visit: No Code(s): E11.59 - Type 2 diabetes mellitus with other circulatory complications (23) Generalized weakness Status: Chronic Current Visit: No Code(s): R53.1 - Weakness (24) Hyperlipidemia Status: Chronic Current Visit: No Qualifiers: Code(s): E78.5 - Hyperlipidemia, unspecified (25) Diabetes Status: Chronic Current Visit: No Qualifiers: Diabetes mellitus type: type 2 Diabetes mellitus alf insulin use: without alf use Diabetes mellitus complication status: without complication Qualified Code(s): E11.9 - Type 2 diabetes mellitus without complications Code(s): E11.9 - Type 2 diabetes mellitus without complications (26) Hypertension Status: Chronic Current Visit: No Qualifiers: Code(s): I10 - Essential (primary) hypertension (27) Chronic venous hypertension (idiopathic) with ulcer of left lower extremity Status: Chronic Current Visit: Yes Code(s): I87.312 - Chronic venous hypertension (idiopathic) with ulcer of left lower extremity (28) Chronic venous stasis dermatitis Status: Chronic Current Visit: Yes Code(s): I87.2 - Venous insufficiency (chronic) (peripheral) (29) Non-pressure chronic ulcer of left ankle with fat layer exposed Status: Resolved Current Visit: Yes Code(s): L97.322 - Non-pressure chronic ulcer of left ankle with fat layer exposed (30) 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 Status: Chronic Current Visit: No Code(s): I70.249 - Atherosclerosis of kn[place] arteries of left leg with ulceration of unspecified site (31) Type 2 diabetes mellitus Status: Chronic Current Visit: No Code(s): E11.9 - Type 2 diabetes mellitus without complications (32) Pressure ulcer of right buttock, stage 3 Status: Acute Current Visit: Yes Code(s): L89.313 - Pressure ulcer of right buttock, stage 3 History of Present Illness Chief Complaint: Here for nurse visit but is complaining about burning and pain in her left buttocks ulcer History of Wound: This is a 77-year-old white female that has history of those buttocks ulcer approximately 2 years ago and closed it on her own with bag balm has recurrent opening that is been trying to take care of her to self with [id number] zinc oxide. Patient complains of increased pain and burning and unable to take it anymore. She has a small opening on her left buttocks cheek that is tender to palpate erythematous around the edges has a crusted yellow slough across it. 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) Positional vertigo (Chronic) Obesity (Chronic) Hx of venous thrombosis and embolism (Chronic) history of cellulitis of leg (Chronic) Leg swelling (Chronic) Hyperpigmentation of skin (Chronic) Lipodermatosclerosis (Chronic) 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) Localized edema (Chronic) 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 The patient underwent excision of a right hip lipoma in the past. Patient is a Ab0. Allergies/Adverse Reactions: Allergies atorvastatin calcium [From Lipitor] Allergy (Verified 09/21/17 11:28) Unknown ezetimibe [From Zetia] Allergy (Verified 09/21/17 11:28) Unknown lisinopril Allergy (Verified 09/21/17 11:28) Unknown neomycin [Neomycin] Allergy (Verified 09/21/17 11:28) Unknown neomycin sulfate [From Neosporin ([id number])] Allergy (Verified 09/21/17 11:28) Itching polymyxin B [Polymyxin B] Allergy (Verified 09/21/17 11:28) Unknown Sulfa (Sulfonamide Antibiotics) Allergy (Verified 09/21/17 11:28) Unknown tetracycline [Tetracycline] Allergy (Verified 09/21/17 11:28) Itching adhesive tape Adverse Reaction (Severe, Verified 09/21/17 11:28) Unknown Home Medications: Ambulatory Orders Medication Instructions Recorded Cholecalciferol (Vitamin D3) 2,000 unit PO DAILY 01/15/17 [Vitamin D3] Famotidine [Pepcid] 20 mg PO BID 01/15/17 Irbesartan [Avapro] 75 mg PO DAILY 01/15/17 Meclizine HCl [Antivert] 25 mg PO TID PRN PRN 01/15/17 Metformin HCl [Glucophage] 500 mg PO DAILY 01/15/17 Pentoxifylline [Trental] 400 mg PO TID 01/15/17 Potassium Chloride [K-Dur] 10 meq PO DAILY PRN 01/15/17 Pravastatin [Pravachol] 80 mg PO QHS 01/15/17 Torsemide [Demadex] 20 mg PO DAILY 01/15/17 cyanocobalamin (vit B-12) 1,000 1,000 mcg PO QDAY 09/21/17 mcg/mL oral drops - Family History Maternal Family History: Family History (Last Reviewed 09/21/17 @ 11:30 by Lila Costa) Mother CAD (coronary artery disease) Myocardial infarction Son Hypertension Brother Aortic aneurysm No pertinent history, - - Patient's father at age of 74 with a history of diabetes mellitus. The patient's mother at age of 59 with a myocardial infarction. Paternal Family History: Family History (Last Reviewed 09/21/17 @ 11:30 by Lila Costa) Mother CAD (coronary artery disease) Myocardial infarction Son Hypertension Brother Aortic aneurysm No pertinent history Smoking Status: Former smoker Tobacco Use: Non-smoker Review of Systems Constitutional: Denies: Chills, Fever, Weight Change Eyes: Denies: Pain, Vision Change HEENT: Denies: Difficulty Hearing, Difficulty Swallowing, Sinus Congestion Cardiovascular: Denies: Chest Pain, Palpitations Respiratory: Denies: Cough, Shortness of Breath Gastrointestinal: Denies: Diarrhea, Nausea, Vomiting Genitourinary: Denies: Dysuria, Hematuria Endocrine: Denies: Heat/ Cold Intolerance, Polydipsia, Polyuria Hematologic/ Lymphatic: Denies: Easy Bruising, Easy Bleeding - Physical Exam Vital Signs Temp Pulse Resp BP 99.3 F H 89 16 154/72 H 05/18/18 11:46 05/18/18 11:46 05/18/18 11:46 05/18/18 11:46 General: Alert, Oriented x3, Cooperative, No apparent distress, Well developed, Well nourished HEENT: Atraumatic, PERRLA, EOMI, Normocephalic Oral: Moist Mucosa Neck: No JVD Lungs: Normal air movement Abdomen: Non-Distended Extremities: No clubbing, No cyanosis, No Calf Tenderness, - - The ulcerations of the left lower extremity are now completely healed and epithelialized. Chronic hyperpigmentation and lipodermatosclerosis persist in the left lower extremity. There is no significant swelling in the left lower extremity, having removed the patient's Unna boots upon her arrival today. Skin: - - A stage III pressure ulceration is noted on the left buttock. The base of the ulceration is generally pink and healthy in appearance. There is no sign of infection or cellulitis. Dimensions are documented elsewhere. Wound Measurements and Assessment WC - Nurse 1 - General Ulcer Measurement Start: 05/08/18 09:50 Freq: Status: Active Protocol: Activity Type Activity Date Activity User E-Sign Co-Sign Detail Recorded Client Recorded Date Recorded By Document 05/22/18 09:51 [email or web address] [id number] 05/22/18 10:02 05/22/18 09:51 Wound Center Nurse 1 [Ulcer Assessment] #3- LT BUTTOCK -Combined with other wound No -Current Size (cm) - Length 0.7 -Current Size (cm) - Width 0.6 -Current Size (cm) - Depth 0.1 -Total Square Cm 0.42 -Photo Taken Yes -Epithelialization Small 1-33% -Tunneling No -Undermining/Tunneling No -Circular Undermining No -Exudate Amt None Present (0 %) -Wound Margin Flat & Intact -Granulation Amt Large (67-100%) -Granulation Quality Red -Slough/Fibrin Yes -Necrosis Amt Small (1-33%) -Necrotic Tissue Type Adherent Slough -Structure Exposed N/A -Texture (Leslye-wound Skin Appearance) Assessed -Moisture (Leslye-wound Skin Appearance Assessed ) Dry/Scaly -Color (Leslye-wound Skin Appearance) Assessed -Temperature (Leslye-wound Skin No Abnormality Appearance) (Pt Warm) -Tenderness on Palpation (Leslye-wound No Skin Appearance) -Ulcer Cleansing Wound Cleanser -Foul Odor after Cleansing No -Anesthetic Used 4% Lidocaine Solution 5% Lidocaine Gel #2 cat scratch-cellulits -Combined with other wound No -Current Size (cm) - Length 0 -Current Size (cm) - Width 0 -Current Size (cm) - Depth 0 -Total Square Cm 0 -Photo Taken Yes -Epithelialization Large 67-100% [Edema Assessment] -Left Calf (cm) 41.6 -Left Ankle (cm) 23.7 WC - Nurse 2 - General Ulcer CM Notes Start: 05/08/18 09:50 Freq: Status: Active Protocol: Activity Type Activity Date Activity User E-Sign Co-Sign Detail Recorded Client Recorded Date Recorded By Document 05/22/18 11:08 KELI [id number] 05/22/18 11:13 KELI 05/22/18 11:08 Wound Center Nurse 2 [Procedure/Treatment] #3- LT BUTTOCK -Time 11:09 -Correct Patient Yes -Correct Side, Site, Position Yes -Correct Procedure Yes -Procedure Performed Yes -Type of Procedure Debridement -Clinical Debridement Subcutaneous -Post Debridement Size (cm) - Length 1.0 -Post Debridement Size (cm) - Width 0.6 -Post Debridement Size (cm) - Depth 0.1 -Total Square Cm 0.60 -Wound/Ulcer Outcome Not Healed -Ulcer Cleansing Rinsed/ Irrigated with Saline -Foul Odor after Cleansing No -Bioengineered Tissue No -Bleeding Controlled with Pressure -Offloading No -Treatment Response Procedure Tolerated Well #2 cat scratch-cellulits -Time 11:09 -Correct Patient Yes -Correct Side, Site, Position Yes -Procedure Performed No -Post Debridement Size (cm) - Length 0 -Post Debridement Size (cm) - Width 0 -Post Debridement Size (cm) - Depth 0 -Total Square Cm 0 -Wound/Ulcer Outcome Healed- Epithelialized [See Physician Procedure note for Specifics] Pain Scale: 0-10 Numeric [Pain] -Is Patient Pain Free? No Neurological: Cranial nerves II-XII grossly intact, Neuro grossly intact Psych/Mental Status: Normal Affect, Appropriate, Alert and oriented to time, place, person, mood and affect Debridement Note Post-Debridement Measurements/Treatment WC - Nurse 2 - General Ulcer CM Notes Start: 05/08/18 09:50 Freq: Status: Active Protocol: Activity Type Activity Date Activity User E-Sign Co-Sign Detail Recorded Client Recorded Date Recorded By Document 05/08/18 10:06 DV [id number] 05/08/18 10:12 DV Document 05/18/18 12:21 MW [id number] 05/18/18 12:25 MW Document 05/22/18 11:08 DV [id number] 05/22/18 11:13 DV 05/08/18 05/18/18 05/22/18 10:06 12:21 11:08 Wound Center Nurse 2 #3- LT BUTTOCK -Time 12:21 11:09 -Correct Patient Yes Yes -Correct Side, Site, Position Yes Yes -Correct Procedure Yes Yes -Procedure Performed Yes Yes -Type of Procedure Debridement Debridement -Clinical Debridement Subcutaneous Subcutaneous -Post Debridement Size (cm) - Length 1.0 1.0 -Post Debridement Size (cm) - Width 1.0 0.6 -Post Debridement Size (cm) - Depth 0.1 0.1 -Total Square Cm 1.00 0.60 -Wound/Ulcer Outcome Not Healed Not Healed -Ulcer Cleansing Rinsed/ Rinsed/ Irrigated with Irrigated with Saline Saline -Foul Odor after Cleansing No No -Bioengineered Tissue No No -Bleeding Controlled with Pressure Pressure -Offloading No No -Treatment Response Procedure Procedure Tolerated Well Tolerated Well #2 cat scratch-cellulits -Time 10:06 11:09 -Correct Patient Yes Yes -Correct Side, Site, Position Yes Yes -Correct Procedure Yes -Procedure Performed Yes No -Type of Procedure Debridement -Clinical Debridement Subcutaneous -Post Debridement Size (cm) - Length 2.5 0 -Post Debridement Size (cm) - Width 5.5 0 -Post Debridement Size (cm) - Depth 0.1 0 -Total Square Cm 13.75 0 -Wound/Ulcer Outcome Not Healed Healed- Epithelialized -Ulcer Cleansing Rinsed/ Irrigated with Saline -Foul Odor after Cleansing No -Bioengineered Tissue No -Bleeding Controlled with Pressure -Treatment Response Procedure Tolerated Well Pain Scale: 0-10 Numeric Is Patient Pain Free? Yes Yes No Laterality: Left - Buttock Type of Debridement: Excisional debridement Anesthesia Used: 5% Lidocaine Gel Depth: Down to and including healthy tissue, in the subcutaneous layer Percentage of wound debrided: 100 Instrument Used: 7mm curette Severity: Fat Layer Exposed Amount of bleeding with debridement: Mild Bleeding Controlled with: Compression and gauze Patient tolerated procedure well Assessment/Plan Active Problems (Last Updated 09/21/17 @ 11:42 by ARCHANA Ontiveros) GERD (gastroesophageal reflux disease) (Chronic) Edema of both legs (Chronic) Venous stasis ulcer (Chronic) Decubitus ulcer of left buttock, stage 2 (Acute) Pressure ulcer of right buttock, stage 3 (Acute) 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 Diabetes controlled. The ulcerations in the patient's left lower extremity now appear to be completely healed. Chronic changes of the skin persist, namely hyperpigmentation and lipodermatosclerosis. The swelling appears to be reasonably well controlled at this moment. The patient has a recent ulceration which has developed on the left buttock. It appears to represent a stage III pressure ulceration. Plan: With respect to the patient's lower extremity swelling and edema and her chronic venous disease, leg elevation has been encouraged. Her legs are to be elevated to heart level, or higher. An adequate amount of compression is also been recommended, though the patient is resistant to this idea. At least 20-30 mmHg compression has been recommended, though the patient indicates that she will do as she pleases. She prefers a lesser degree of compression. This factor suggests a likelihood of lower extremity venous ulcer recurrence. The patient now has an ulceration on her left buttock. Offloading measures have been recommended. This has been discussed with the patient thoroughly. We are to utilize Milena topically, which will be applied by the patient every other day. The patient will return on a weekly basis, though the upcoming holidays will likely interfere with such scheduling. The patient is not a smoker. Influenza vaccine was not administered today. Patient weighs 171 pounds. She stands 4 feet 10 inches tall. Her BMI is 35.7, which places her in an obese class II category. Weight loss has been recommended, and collaboration with the patient's primary care physician has been advised in this regard.
--- NOTE | 2018-05-22 11:19 | HP.PCM_ITS ---
(1) GERD (gastroesophageal reflux disease) Status: Chronic Current Visit: Yes Code(s): K21.9 - Gastro-esophageal reflux disease without esophagitis (2) Osteoarthritis Status: Chronic Current Visit: No Code(s): M19.90 - Unspecified osteoarthritis, unspecified site (3) Edema of both legs Status: Chronic Current Visit: Yes Code(s): R60.0 - Localized edema (4) Hiatal hernia Status: Chronic Current Visit: No Code(s): K44.9 - Diaphragmatic hernia without obstruction or gangrene (5) Venous stasis ulcer Status: Chronic Current Visit: Yes Qualifiers: Venous stasis ulcer site: calf Varicose vein presence: with varicose veins Laterality: left Non-pressure ulcer stage: with fat layer exposed Qualified Code(s): I83.022 - Varicose veins of left lower extremity with ulcer of calf; L97.222 - Non-pressure chronic ulcer of left calf with fat layer exposed Code(s): I83.009 - Varicose veins of unspecified lower extremity with ulcer of unspecified site; L97.909 - Non-pressure chronic ulcer of unspecified part of unspecified lower leg with unspecified severity (6) Abnormal exercise myocardial perfusion study Status: Chronic Current Visit: No Code(s): R94.39 - Abnormal result of other cardiovascular function study (7) Palpitations Status: Chronic Current Visit: No Code(s): R00.2 - Palpitations (8) Rectal fistula Status: Chronic Current Visit: No Code(s): K60.4 - Rectal fistula Comment: 1960 (9) Atherosclerotic heart disease of [place] coronary artery without angina pectoris Status: Chronic Current Visit: No Qualifiers: Code(s): I25.10 - Atherosclerotic heart disease of [place] coronary artery without angina pectoris (10) Failure to thrive Status: Chronic Current Visit: Yes Code(s): [id number] - (11) Positional vertigo Status: Chronic Current Visit: No Code(s): H81.10 - Benign paroxysmal vertigo, unspecified ear (12) Obesity Status: Chronic Current Visit: No Code(s): E66.9 - Obesity, unspecified (13) Hx of venous thrombosis and embolism Status: Chronic Current Visit: No Code(s): Z86.718 - Personal history of other venous thrombosis and embolism (14) history of cellulitis of leg Status: Chronic Current Visit: Yes (15) Leg swelling Status: Chronic Current Visit: Yes Code(s): M79.89 - Other specified soft tissue disorders (16) Hyperpigmentation of skin Status: Chronic Current Visit: Yes Code(s): L81.9 - Disorder of pigmentation, unspecified (17) Lipodermatosclerosis Status: Chronic Current Visit: Yes Code(s): I83.10 - Varicose veins of unspecified lower extremity with inflammation (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 Current Visit: Yes Code(s): I87.093 - Postthrombotic syndrome with other complications of bilateral lower extremity (19) Chronic venous hypertension (idiopathic) with inflammation of bilateral lower extremity Status: Chronic Current Visit: Yes Code(s): I87.323 - Chronic venous hypertension (idiopathic) with inflammation of bilateral lower extremity (20) Localized edema Status: Chronic Current Visit: Yes Code(s): R60.0 - Localized edema (21) Non-pressure chronic ulcer of left calf with fat layer exposed Status: Resolved Current Visit: Yes Code(s): L97.222 - Non-pressure chronic ulcer of left calf with fat layer exposed (22) 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 Current Visit: No Code(s): E11.59 - Type 2 diabetes mellitus with other circulatory complications (23) Generalized weakness Status: Chronic Current Visit: No Code(s): R53.1 - Weakness (24) Hyperlipidemia Status: Chronic Current Visit: No Qualifiers: Code(s): E78.5 - Hyperlipidemia, unspecified (25) Diabetes Status: Chronic Current Visit: No Qualifiers: Diabetes mellitus type: type 2 Diabetes mellitus long-term insulin use: without long-term use Diabetes mellitus complication status: without complication Qualified Code(s): E11.9 - Type 2 diabetes mellitus without complications Code(s): E11.9 - Type 2 diabetes mellitus without complications (26) Hypertension Status: Chronic Current Visit: No Qualifiers: Code(s): I10 - Essential (primary) hypertension (27) Chronic venous hypertension (idiopathic) with ulcer of left lower extremity Status: Chronic Current Visit: Yes Code(s): I87.312 - Chronic venous hypertension (idiopathic) with ulcer of left lower extremity (28) Chronic venous stasis dermatitis Status: Chronic Current Visit: Yes Code(s): I87.2 - Venous insufficiency (chronic) (peripheral) (29) Non-pressure chronic ulcer of left ankle with fat layer exposed Status: Resolved Current Visit: Yes Code(s): L97.322 - Non-pressure chronic ulcer of left ankle with fat layer exposed (30) 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 Status: Chronic Current Visit: No Code(s): I70.249 - Atherosclerosis of [place] arteries of left leg with ulceration of unspecified site (31) Type 2 diabetes mellitus Status: Chronic Current Visit: No Code(s): E11.9 - Type 2 diabetes mellitus without complications (32) Pressure ulcer of right buttock, stage 3 Status: Acute Current Visit: Yes Code(s): L89.313 - Pressure ulcer of right buttock, stage 3 History of Present Illness Chief Complaint: Here for nurse visit but is complaining about burning and pain in her left buttocks ulcer History of Wound: This is a 77-year-old white female that has history of those buttocks ulcer approximately 2 years ago and closed it on her own with bag balm has recurrent opening that is been trying to take care of her to self with [id number] zinc oxide. Patient complains of increased pain and burning and unable to take it anymore. She has a small opening on her left buttocks cheek that is tender to palpate erythematous around the edges has a crusted yellow slough across it. 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) Positional vertigo (Chronic) Obesity (Chronic) Hx of venous thrombosis and embolism (Chronic) history of cellulitis of leg (Chronic) Leg swelling (Chronic) Hyperpigmentation of skin (Chronic) Lipodermatosclerosis (Chronic) 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) Localized edema (Chronic) 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 The patient underwent excision of a right hip lipoma in the past. Patient is a Ab0. Allergies/Adverse Reactions: Allergies atorvastatin calcium [From Lipitor] Allergy (Verified 09/21/17 11:28) Unknown ezetimibe [From Zetia] Allergy (Verified 09/21/17 11:28) Unknown lisinopril Allergy (Verified 09/21/17 11:28) Unknown neomycin [Neomycin] Allergy (Verified 09/21/17 11:28) Unknown neomycin sulfate [From Neosporin ([id number])] Allergy (Verified 09/21/17 11:28) Itching polymyxin B [Polymyxin B] Allergy (Verified 09/21/17 11:28) Unknown Sulfa (Sulfonamide Antibiotics) Allergy (Verified 09/21/17 11:28) Unknown tetracycline [Tetracycline] Allergy (Verified 09/21/17 11:28) Itching adhesive tape Adverse Reaction (Severe, Verified 09/21/17 11:28) Unknown Home Medications: Ambulatory Orders Medication Instructions Recorded Cholecalciferol (Vitamin D3) 2,000 unit PO DAILY 01/15/17 [Vitamin D3] Famotidine [Pepcid] 20 mg PO BID 01/15/17 Irbesartan [Avapro] 75 mg PO DAILY 01/15/17 Meclizine HCl [Antivert] 25 mg PO TID PRN PRN 01/15/17 Metformin HCl [Glucophage] 500 mg PO DAILY 01/15/17 Pentoxifylline [Trental] 400 mg PO TID 01/15/17 Potassium Chloride [K-Dur] 10 meq PO DAILY PRN 01/15/17 Pravastatin [Pravachol] 80 mg PO QHS 01/15/17 Torsemide [Demadex] 20 mg PO DAILY 01/15/17 cyanocobalamin (vit B-12) 1,000 1,000 mcg PO QDAY 09/21/17 mcg/mL oral drops - Family History Maternal Family History: Family History (Last Reviewed 09/21/17 @ 11:30 by Lila Costa) Mother CAD (coronary artery disease) Myocardial infarction Son Hypertension Brother Aortic aneurysm No pertinent history, - - Patient's father at age of 74 with a history of diabetes mellitus. The patient's mother at age of 59 with a myocardial infarction. Paternal Family History: Family History (Last Reviewed 09/21/17 @ 11:30 by Lila Costa) Mother CAD (coronary artery disease) Myocardial infarction Son Hypertension Brother Aortic aneurysm No pertinent history Smoking Status: Former smoker Tobacco Use: Non-smoker Review of Systems Constitutional: Denies: Chills, Fever, Weight Change Eyes: Denies: Pain, Vision Change HEENT: Denies: Difficulty Hearing, Difficulty Swallowing, Sinus Congestion Cardiovascular: Denies: Chest Pain, Palpitations Respiratory: Denies: Cough, Shortness of Breath Gastrointestinal: Denies: Diarrhea, Nausea, Vomiting Genitourinary: Denies: Dysuria, Hematuria Endocrine: Denies: Heat/ Cold Intolerance, Polydipsia, Polyuria Hematologic/ Lymphatic: Denies: Easy Bruising, Easy Bleeding - Physical Exam Vital Signs Temp Pulse Resp BP 99.3 F H 89 16 154/72 H 05/18/18 11:46 05/18/18 11:46 05/18/18 11:46 05/18/18 11:46 General: Alert, Oriented x3, Cooperative, No apparent distress, Well developed, Well nourished HEENT: Atraumatic, PERRLA, EOMI, Normocephalic Oral: Moist Mucosa Neck: No JVD Lungs: Normal air movement Abdomen: Non-Distended Extremities: No clubbing, No cyanosis, No Calf Tenderness, - - The ulcerations of the left lower extremity are now completely healed and epithelialized. Chronic hyperpigmentation and lipodermatosclerosis persist in the left lower extremity. There is no significant swelling in the left lower extremity, having removed the patient's Unna boots upon her arrival today. Skin: - - A stage III pressure ulceration is noted on the left buttock. The base of the ulceration is generally pink and healthy in appearance. There is no sign of infection or cellulitis. Dimensions are documented elsewhere. Wound Measurements and Assessment WC - Nurse 1 - General Ulcer Measurement Start: 05/08/18 09:50 Freq: Status: Active Protocol: Activity Type Activity Date Activity User E-Sign Co-Sign Detail Recorded Client Recorded Date Recorded By Document 05/22/18 09:51 [email or web address] [id number] 05/22/18 10:02 05/22/18 09:51 Wound Center Nurse 1 [Ulcer Assessment] #3- LT BUTTOCK -Combined with other wound No -Current Size (cm) - Length 0.7 -Current Size (cm) - Width 0.6 -Current Size (cm) - Depth 0.1 -Total Square Cm 0.42 -Photo Taken Yes -Epithelialization Small 1-33% -Tunneling No -Undermining/Tunneling No -Circular Undermining No -Exudate Amt None Present (0 %) -Wound Margin Flat & Intact -Granulation Amt Large (67-100%) -Granulation Quality Red -Slough/Fibrin Yes -Necrosis Amt Small (1-33%) -Necrotic Tissue Type Adherent Slough -Structure Exposed N/A -Texture (Leslye-wound Skin Appearance) Assessed -Moisture (Leslye-wound Skin Appearance Assessed ) Dry/Scaly -Color (Leslye-wound Skin Appearance) Assessed -Temperature (Leslye-wound Skin No Abnormality Appearance) (Pt Warm) -Tenderness on Palpation (Leslye-wound No Skin Appearance) -Ulcer Cleansing Wound Cleanser -Foul Odor after Cleansing No -Anesthetic Used 4% Lidocaine Solution 5% Lidocaine Gel #2 cat scratch-cellulits -Combined with other wound No -Current Size (cm) - Length 0 -Current Size (cm) - Width 0 -Current Size (cm) - Depth 0 -Total Square Cm 0 -Photo Taken Yes -Epithelialization Large 67-100% [Edema Assessment] -Left Calf (cm) 41.6 -Left Ankle (cm) 23.7 WC - Nurse 2 - General Ulcer CM Notes Start: 05/08/18 09:50 Freq: Status: Active Protocol: Activity Type Activity Date Activity User E-Sign Co-Sign Detail Recorded Client Recorded Date Recorded By Document 05/22/18 11:08 KELI [id number] 05/22/18 11:13 KELI 05/22/18 11:08 Wound Center Nurse 2 [Procedure/Treatment] #3- LT BUTTOCK -Time 11:09 -Correct Patient Yes -Correct Side, Site, Position Yes -Correct Procedure Yes -Procedure Performed Yes -Type of Procedure Debridement -Clinical Debridement Subcutaneous -Post Debridement Size (cm) - Length 1.0 -Post Debridement Size (cm) - Width 0.6 -Post Debridement Size (cm) - Depth 0.1 -Total Square Cm 0.60 -Wound/Ulcer Outcome Not Healed -Ulcer Cleansing Rinsed/ Irrigated with Saline -Foul Odor after Cleansing No -Bioengineered Tissue No -Bleeding Controlled with Pressure -Offloading No -Treatment Response Procedure Tolerated Well #2 cat scratch-cellulits -Time 11:09 -Correct Patient Yes -Correct Side, Site, Position Yes -Procedure Performed No -Post Debridement Size (cm) - Length 0 -Post Debridement Size (cm) - Width 0 -Post Debridement Size (cm) - Depth 0 -Total Square Cm 0 -Wound/Ulcer Outcome Healed- Epithelialized [See Physician Procedure note for Specifics] Pain Scale: 0-10 Numeric [Pain] -Is Patient Pain Free? No Neurological: Cranial nerves II-XII grossly intact, Neuro grossly intact Psych/Mental Status: Normal Affect, Appropriate, Alert and oriented to time, place, person, mood and affect Debridement Note Post-Debridement Measurements/Treatment WC - Nurse 2 - General Ulcer CM Notes Start: 05/08/18 09:50 Freq: Status: Active Protocol: Activity Type Activity Date Activity User E-Sign Co-Sign Detail Recorded Client Recorded Date Recorded By Document 05/08/18 10:06 DV [id number] 05/08/18 10:12 DV Document 05/18/18 12:21 MW [id number] 05/18/18 12:25 MW Document 05/22/18 11:08 DV [id number] 05/22/18 11:13 DV 05/08/18 05/18/18 05/22/18 10:06 12:21 11:08 Wound Center Nurse 2 #3- LT BUTTOCK -Time 12:21 11:09 -Correct Patient Yes Yes -Correct Side, Site, Position Yes Yes -Correct Procedure Yes Yes -Procedure Performed Yes Yes -Type of Procedure Debridement Debridement -Clinical Debridement Subcutaneous Subcutaneous -Post Debridement Size (cm) - Length 1.0 1.0 -Post Debridement Size (cm) - Width 1.0 0.6 -Post Debridement Size (cm) - Depth 0.1 0.1 -Total Square Cm 1.00 0.60 -Wound/Ulcer Outcome Not Healed Not Healed -Ulcer Cleansing Rinsed/ Rinsed/ Irrigated with Irrigated with Saline Saline -Foul Odor after Cleansing No No -Bioengineered Tissue No No -Bleeding Controlled with Pressure Pressure -Offloading No No -Treatment Response Procedure Procedure Tolerated Well Tolerated Well #2 cat scratch-cellulits -Time 10:06 11:09 -Correct Patient Yes Yes -Correct Side, Site, Position Yes Yes -Correct Procedure Yes -Procedure Performed Yes No -Type of Procedure Debridement -Clinical Debridement Subcutaneous -Post Debridement Size (cm) - Length 2.5 0 -Post Debridement Size (cm) - Width 5.5 0 -Post Debridement Size (cm) - Depth 0.1 0 -Total Square Cm 13.75 0 -Wound/Ulcer Outcome Not Healed Healed- Epithelialized -Ulcer Cleansing Rinsed/ Irrigated with Saline -Foul Odor after Cleansing No -Bioengineered Tissue No -Bleeding Controlled with Pressure -Treatment Response Procedure Tolerated Well Pain Scale: 0-10 Numeric Is Patient Pain Free? Yes Yes No Laterality: Left - Buttock Type of Debridement: Excisional debridement Anesthesia Used: 5% Lidocaine Gel Depth: Down to and including healthy tissue, in the subcutaneous layer Percentage of wound debrided: 100 Instrument Used: 7mm curette Severity: Fat Layer Exposed Amount of bleeding with debridement: Mild Bleeding Controlled with: Compression and gauze Patient tolerated procedure well Assessment/Plan Active Problems (Last Updated 09/21/17 @ 11:42 by ARCHANA Ontiveros) GERD (gastroesophageal reflux disease) (Chronic) Edema of both legs (Chronic) Venous stasis ulcer (Chronic) Decubitus ulcer of left buttock, stage 2 (Acute) Pressure ulcer of right buttock, stage 3 (Acute) 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 Diabetes controlled. The ulcerations in the patient's left lower extremity now appear to be completely healed. Chronic changes of the skin persist, namely hyperpigmentation and lipodermatosclerosis. The swelling appears to be reasonably well controlled at this moment. The patient has a recent ulceration which has developed on the left buttock. It appears to represent a stage III pressure ulceration. Plan: With respect to the patient's lower extremity swelling and edema and her chronic venous disease, leg elevation has been encouraged. Her legs are to be elevated to heart level, or higher. An adequate amount of compression is also been recommended, though the patient is resistant to this idea. At least 20-30 mmHg compression has been recommended, though the patient indicates that she will do as she pleases. She prefers a lesser degree of compression. This factor suggests a likelihood of lower extremity venous ulcer recurrence. The patient now has an ulceration on her left buttock. Offloading measures have been recommended. This has been discussed with the patient thoroughly. We are to utilize Milena topically, which will be applied by the patient every other day. The patient will return on a weekly basis, though the upcoming holidays will likely interfere with such scheduling. The patient is not a smoker. Influenza vaccine was not administered today. Patient weighs 171 pounds. She stands 4 feet 10 inches tall. Her BMI is 35.7, which places her in an obese class II category. Weight loss has been recommended, and collaboration with the patient's primary care physician has been advised in this regard.
== END 2018-06-04 23:59 ==
LOC: WC 09:30
PROVIDERS: Family Provider Nurse Practitioner; PCP Nurse Practitioner; Referring Provider Surgery; Visit Provider Surgery
DX: I83.022 Varicose veins of left lower extremity with ulcer of calf (principal); L97.222 Non-pressure chronic ulcer of left calf with fat layer exposed; K21.9 Gastro-esophageal reflux disease without esophagitis; M19.90 Unspecified osteoarthritis, unspecified site; L89.322 Pressure ulcer of left buttock, stage 2; R60.0 Localized edema; K44.9 Diaphragmatic hernia without obstruction or gangrene; D17.9 Benign lipomatous neoplasm, unspecified; I25.10 Atherosclerotic heart disease of native coronary artery without angina pectoris; E11.622 Type 2 diabetes mellitus with other skin ulcer; E78.5 Hyperlipidemia, unspecified; I10 Essential (primary) hypertension; I89.0 Lymphedema, not elsewhere classified; Z91.19 Patient's noncompliance with other medical treatment and regimen; E66.9 Obesity, unspecified; Z68.35 Body mass index [BMI] 35.0-35.9, adult; Z71.3 Dietary counseling and surveillance; Z86.718 Personal history of other venous thrombosis and embolism; L89.323 Pressure ulcer of left buttock, stage 3
CPT/HCPCS: 11042; 29580; 84134; 99212; 99213; G0463

== ENCOUNTER 2018-06-11 13:01 | Outpatient (RCR) | payer SELFPAY ==
[2018-06-05 01:25] VITALS: BP 154/72; PULSE 89; RESP 16; TEMP 37.4
[2018-06-11 13:03] VITALS: BP 151/80; PULSE 83; RESP 16; TEMP 37; BMI 35.7
--- NOTE | 2018-06-11 13:46 | PCM.WC.HP ---
(1) GERD (gastroesophageal reflux disease) Status: Chronic Current Visit: No Code(s): K21.9 - Gastro-esophageal reflux disease without esophagitis (2) Osteoarthritis Status: Chronic Current Visit: No Code(s): M19.90 - Unspecified osteoarthritis, unspecified site (3) Edema of both legs Status: Chronic Current Visit: No Code(s): R60.0 - Localized edema (4) Hiatal hernia Status: Chronic Current Visit: No Code(s): K44.9 - Diaphragmatic hernia without obstruction or gangrene (5) Decubitus ulcer of left buttock, stage 2 Status: Chronic Current Visit: No Code(s): L89.322 - Pressure ulcer of left buttock, stage 2 (6) cataract surgery Status: Acute Current Visit: No (7) Abnormal exercise myocardial perfusion study Status: Chronic Current Visit: No Code(s): R94.39 - Abnormal result of other cardiovascular function study (8) Palpitations Status: Chronic Current Visit: No Code(s): R00.2 - Palpitations (9) Heel spur Status: Resolved Current Visit: No Code(s): M77.30 - Calcaneal spur, unspecified foot Comment: right heel spur removed (10) H/O dilation and curettage Status: Resolved Current Visit: No Code(s): Z98.890 - Other specified postprocedural states (11) H/O tubal ligation Status: Resolved Current Visit: No Code(s): Z98.51 - Tubal ligation status (12) Lipoma Status: Resolved Current Visit: No Code(s): D17.9 - Benign lipomatous neoplasm, unspecified Comment: removed from right hip (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 Current Visit: No Code(s): K60.4 - Rectal fistula Comment: 1960 (14) Atherosclerotic heart disease of [place] coronary artery without angina pectoris Status: Chronic Current Visit: No Qualifiers: Code(s): I25.10 - Atherosclerotic heart disease of [place] coronary artery without angina pectoris (15) Cellulitis of left leg Status: Resolved Current Visit: No Code(s): L03.116 - Cellulitis of left lower limb (16) Failure to thrive Status: Chronic Current Visit: No Code(s): ILE2086 - (17) Positional vertigo Status: Chronic Current Visit: No Code(s): H81.10 - Benign paroxysmal vertigo, unspecified ear (18) Ulcer Status: Resolved Current Visit: No Code(s): L98.499 - Non-pressure chronic ulcer of skin of other sites with unspecified severity (19) Obesity Status: Chronic Current Visit: No Code(s): E66.9 - Obesity, unspecified (20) Hx of venous thrombosis and embolism Status: Chronic Current Visit: No Code(s): Z86.718 - Personal history of other venous thrombosis and embolism (21) history of cellulitis of leg Status: Chronic Current Visit: No (22) Leg swelling Status: Chronic Current Visit: No Code(s): M79.89 - Other specified soft tissue disorders (23) Hyperpigmentation of skin Status: Chronic Current Visit: No Code(s): L81.9 - Disorder of pigmentation, unspecified (24) Lipodermatosclerosis Status: Chronic Current Visit: No Code(s): I83.10 - Varicose veins of unspecified lower extremity with inflammation (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 Current Visit: No Code(s): I87.093 - Postthrombotic syndrome with other complications of bilateral lower extremity (26) Chronic venous hypertension (idiopathic) with inflammation of bilateral lower extremity Status: Chronic Current Visit: No Code(s): I87.323 - Chronic venous hypertension (idiopathic) with inflammation of bilateral lower extremity (27) Localized edema Status: Chronic Current Visit: No Code(s): R60.0 - Localized edema (28) Non-pressure chronic ulcer of left calf with fat layer exposed Status: Resolved Current Visit: No Code(s): L97.222 - Non-pressure chronic ulcer of left calf with fat layer exposed (29) 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 Current Visit: No Code(s): E11.59 - Type 2 diabetes mellitus with other circulatory complications (30) Generalized weakness Status: Chronic Current Visit: No Code(s): R53.1 - Weakness (31) Hyperlipidemia Status: Chronic Current Visit: No Qualifiers: Code(s): E78.5 - Hyperlipidemia, unspecified (32) Diabetes Status: Chronic Current Visit: No Qualifiers: Code(s): E11.9 - Type 2 diabetes mellitus without complications (33) Hypertension Status: Chronic Current Visit: No Qualifiers: Code(s): I10 - Essential (primary) hypertension (34) Chronic venous hypertension (idiopathic) with ulcer of left lower extremity Status: Chronic Current Visit: No Code(s): I87.312 - Chronic venous hypertension (idiopathic) with ulcer of left lower extremity (35) Chronic venous stasis dermatitis Status: Chronic Current Visit: No Code(s): I87.2 - Venous insufficiency (chronic) (peripheral) (36) Non-pressure chronic ulcer of left ankle with fat layer exposed Status: Resolved Current Visit: No Code(s): L97.322 - Non-pressure chronic ulcer of left ankle with fat layer exposed (37) 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 Status: Resolved Current Visit: No Code(s): I70.249 - Atherosclerosis of [place] arteries of left leg with ulceration of unspecified site (38) Type 2 diabetes mellitus Status: Chronic Current Visit: No Code(s): E11.9 - Type 2 diabetes mellitus without complications History of Present Illness Chief Complaint: Left buttocks ulceration History of Wound: This is a 77-year-old white female that has history of buttocks ulcer approximately 2 years ago. It healed with self treatment using bag balm. It has recurred and the patient has been treating herself with [id number] zinc oxide. Patient complains of increased pain and burning and unable to take it anymore. She presented with a small ulceration on her left buttocks cheek that was tender to palpate erythematous around the edges has a crusted yellow slough across it. 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 (Chronic) Positional vertigo (Chronic) Obesity (Chronic) Hx of venous thrombosis and embolism (Chronic) history of cellulitis of leg (Chronic) Leg swelling (Chronic) Hyperpigmentation of skin (Chronic) Lipodermatosclerosis (Chronic) 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 The patient underwent excision of a right hip lipoma in the past. Patient is a Ab0. Allergies/Adverse Reactions: Allergies atorvastatin calcium [From Lipitor] Allergy (Verified 09/21/17 11:28) Unknown ezetimibe [From Zetia] Allergy (Verified 09/21/17 11:28) Unknown lisinopril Allergy (Verified 09/21/17 11:28) Unknown neomycin [Neomycin] Allergy (Verified 09/21/17 11:28) Unknown neomycin sulfate [From Neosporin ([id number]-szpir)] Allergy (Verified 09/21/17 11:28) Itching polymyxin B [Polymyxin B] Allergy (Verified 09/21/17 11:28) Unknown Sulfa (Sulfonamide Antibiotics) Allergy (Verified 09/21/17 11:28) Unknown tetracycline [Tetracycline] Allergy (Verified 09/21/17 11:28) Itching adhesive tape Adverse Reaction (Severe, Verified 09/21/17 11:28) Unknown Home Medications: Ambulatory Orders Medication Instructions Recorded Cholecalciferol (Vitamin D3) 2,000 unit PO DAILY 01/15/17 [Vitamin D3] Famotidine [Pepcid] 20 mg PO BID 01/15/17 Irbesartan [Avapro] 75 mg PO DAILY 01/15/17 Meclizine HCl [Antivert] 25 mg PO TID PRN PRN 01/15/17 Metformin HCl [Glucophage] 500 mg PO DAILY 01/15/17 Pentoxifylline [Trental] 400 mg PO TID 01/15/17 Potassium Chloride [K-Dur] 10 meq PO DAILY PRN 01/15/17 Pravastatin [Pravachol] 80 mg PO QHS 01/15/17 Torsemide [Demadex] 20 mg PO DAILY 01/15/17 cyanocobalamin (vit B-12) 1,000 1,000 mcg PO QDAY 09/21/17 mcg/mL oral drops - Family History Maternal Family History: Family History (Last Reviewed 09/21/17 @ 11:30 by Lila Costa) Mother CAD (coronary artery disease) Myocardial infarction Son Hypertension Brother Aortic aneurysm No pertinent history, - - Patient's father at age of 74 with a history of diabetes mellitus. The patient's mother at age of 59 with a myocardial infarction. Paternal Family History: Family History (Last Reviewed 09/21/17 @ 11:30 by Lila Costa) Mother CAD (coronary artery disease) Myocardial infarction Son Hypertension Brother Aortic aneurysm No pertinent history Smoking Status: Former smoker Tobacco Use: Non-smoker Review of Systems Constitutional: Denies: Chills, Fever, Weight Change Eyes: Denies: Pain, Vision Change HEENT: Denies: Difficulty Hearing, Difficulty Swallowing, Sinus Congestion Cardiovascular: Denies: Chest Pain, Palpitations Respiratory: Denies: Cough, Shortness of Breath Gastrointestinal: Denies: Diarrhea, Nausea, Vomiting Genitourinary: Denies: Dysuria, Hematuria Endocrine: Denies: Heat/ Cold Intolerance, Polydipsia, Polyuria Hematologic/ Lymphatic: Denies: Easy Bruising, Easy Bleeding - Physical Exam Vital Signs Temp Pulse Resp BP 98.6 F 83 16 151/80 H 06/11/18 13:03 06/11/18 13:03 06/11/18 13:03 06/11/18 13:03 General: Alert, Oriented x3, Cooperative, No apparent distress, Well developed, Well nourished HEENT: Atraumatic, PERRLA, EOMI, Normocephalic Oral: Moist Mucosa Neck: No JVD Lungs: Normal air movement Abdomen: Non-Distended Extremities: No clubbing, No cyanosis, No Calf Tenderness, Edema - Lower extremities Skin: No breakdown, - - The left buttock ulceration is now completely healed and epithelialized. Wound Measurements and Assessment WC - Nurse 1 - General Ulcer Measurement Start: 06/11/18 13:03 Freq: Status: Active Protocol: Activity Type Activity Date Activity User E-Sign Co-Sign Detail Recorded Client Recorded Date Recorded By Document 06/11/18 13:03 [facility] [id number] 06/11/18 13:10 [facility] 06/11/18 13:03 Wound Center Nurse 1 [Ulcer Assessment] #3- LT BUTTOCK -Combined with other wound No -Current Size (cm) - Length 0.1 -Current Size (cm) - Width 0.1 -Current Size (cm) - Depth 0.1 -Total Square Cm 0.01 -Date of Last Picture (Recall this 06/11/18 field) -Photo Taken Yes -Epithelialization Large 67-100% -Tunneling No -Undermining/Tunneling No -Circular Undermining No -Exudate Amt None Present (0 %) -Structure Exposed N/A -Texture (Leslye-wound Skin Appearance) Scarring -Moisture (Leslye-wound Skin Appearance Assessed ) -Color (Leslye-wound Skin Appearance) Assessed -Temperature (Leslye-wound Skin No Abnormality Appearance) (Pt Warm) -Tenderness on Palpation (Leslye-wound No Skin Appearance) -Ulcer Cleansing Rinsed/ Irrigated with Saline -Foul Odor after Cleansing No -Anesthetic Used 5% Lidocaine Gel WC - Nurse 2 - General Ulcer CM Notes Start: 06/11/18 13:03 Freq: Status: Active Protocol: Activity Type Activity Date Activity User E-Sign Co-Sign Detail Recorded Client Recorded Date Recorded By Document 06/11/18 13:34 [id number] 06/11/18 13:42 06/11/18 13:34 Wound Center Nurse 2 [Procedure/Treatment] -Time 13:34 -Correct Patient Yes -Correct Side, Site, Position Yes -Correct Procedure Yes -Procedure Performed No -Post Debridement Size (cm) - Length 0 -Post Debridement Size (cm) - Width 0 -Post Debridement Size (cm) - Depth 0 -Total Square Cm 0 -Wound/Ulcer Outcome Healed- Epithelialized [See Physician Procedure note for Specifics] Pain Scale: 0-10 Numeric [Pain] -Is Patient Pain Free? Yes Neurological: Cranial nerves II-XII grossly intact, Neuro grossly intact Psych/Mental Status: Normal Affect, Appropriate, Alert and oriented to time, place, person, mood and affect Debridement Note Post-Debridement Measurements/Treatment WC - Nurse 2 - General Ulcer CM Notes Start: 06/11/18 13:03 Freq: Status: Active Protocol: Activity Type Activity Date Activity User E-Sign Co-Sign Detail Recorded Client Recorded Date Recorded By Document 06/11/18 13:34 [id number] 06/11/18 13:42 06/11/18 13:34 Wound Center Nurse 2 #3- LT BUTTOCK -Time 13:34 -Correct Patient Yes -Correct Side, Site, Position Yes -Correct Procedure Yes -Procedure Performed No -Post Debridement Size (cm) - Length 0 -Post Debridement Size (cm) - Width 0 -Post Debridement Size (cm) - Depth 0 -Total Square Cm 0 -Wound/Ulcer Outcome Healed- Epithelialized Pain Scale: 0-10 Numeric Is Patient Pain Free? Yes No debridement was completed today Assessment/Plan Assessment: Patient's left buttock ulceration is now completely healed and epithelialized. Plan: With respect to the patient's lower extremity swelling and edema and her chronic venous disease, leg elevation has been encouraged. Her legs are to be elevated to heart level, or higher. An adequate amount of compression is also been recommended, though the patient is resistant to this idea. At least 20-30 mmHg compression has been recommended, though the patient indicates that she will do as she pleases. She prefers a lesser degree of compression. This factor suggests a likelihood of lower extremity venous ulcer recurrence. The patient developed an ulceration on her left buttock. Offloading measures were recommended. This was discussed with the patient thoroughly. Milena was implemented topically, every other day. The patient is now completely healed and epithelialized, and will be discharged, for follow-up on an as-needed basis. The patient is not a smoker. Influenza vaccine was not administered today. Patient weighs 171 pounds. She stands 4 feet 10 inches tall. Her BMI is 35.7, which places her in an obese class II category. Weight loss has been recommended, and collaboration with the patient's primary care physician has been advised in this regard.
--- NOTE | 2018-06-11 13:51 | HP.PCM_ITS ---
(1) GERD (gastroesophageal reflux disease) Status: Chronic Current Visit: No Code(s): K21.9 - Gastro-esophageal reflux disease without esophagitis (2) Osteoarthritis Status: Chronic Current Visit: No Code(s): M19.90 - Unspecified osteoarthritis, unspecified site (3) Edema of both legs Status: Chronic Current Visit: No Code(s): R60.0 - Localized edema (4) Hiatal hernia Status: Chronic Current Visit: No Code(s): K44.9 - Diaphragmatic hernia without obstruction or gangrene (5) Decubitus ulcer of left buttock, stage 2 Status: Chronic Current Visit: No Code(s): L89.322 - Pressure ulcer of left buttock, stage 2 (6) cataract surgery Status: Acute Current Visit: No (7) Abnormal exercise myocardial perfusion study Status: Chronic Current Visit: No Code(s): R94.39 - Abnormal result of other cardiovascular function study (8) Palpitations Status: Chronic Current Visit: No Code(s): R00.2 - Palpitations (9) Heel spur Status: Resolved Current Visit: No Code(s): M77.30 - Calcaneal spur, unspecified foot Comment: right heel spur removed (10) H/O dilation and curettage Status: Resolved Current Visit: No Code(s): Z98.890 - Other specified postprocedural states (11) H/O tubal ligation Status: Resolved Current Visit: No Code(s): Z98.51 - Tubal ligation status (12) Lipoma Status: Resolved Current Visit: No Code(s): D17.9 - Benign lipomatous neoplasm, unspecified Comment: removed from right hip (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 Current Visit: No Code(s): K60.4 - Rectal fistula Comment: 1960 (14) Atherosclerotic heart disease of [place] coronary artery without angina pectoris Status: Chronic Current Visit: No Qualifiers: Code(s): I25.10 - Atherosclerotic heart disease of [place] coronary artery without angina pectoris (15) Cellulitis of left leg Status: Resolved Current Visit: No Code(s): L03.116 - Cellulitis of left lower limb (16) Failure to thrive Status: Chronic Current Visit: No Code(s): [id number] - (17) Positional vertigo Status: Chronic Current Visit: No Code(s): H81.10 - Benign paroxysmal vertigo, unspecified ear (18) Ulcer Status: Resolved Current Visit: No Code(s): L98.499 - Non-pressure chronic ulcer of skin of other sites with unspecified severity (19) Obesity Status: Chronic Current Visit: No Code(s): E66.9 - Obesity, unspecified (20) Hx of venous thrombosis and embolism Status: Chronic Current Visit: No Code(s): Z86.718 - Personal history of other venous thrombosis and embolism (21) history of cellulitis of leg Status: Chronic Current Visit: No (22) Leg swelling Status: Chronic Current Visit: No Code(s): M79.89 - Other specified soft tissue disorders (23) Hyperpigmentation of skin Status: Chronic Current Visit: No Code(s): L81.9 - Disorder of pigmentation, unspecified (24) Lipodermatosclerosis Status: Chronic Current Visit: No Code(s): I83.10 - Varicose veins of unspecified lower extremity with inflammation (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 Current Visit: No Code(s): I87.093 - Postthrombotic syndrome with other complications of bilateral lower extremity (26) Chronic venous hypertension (idiopathic) with inflammation of bilateral lower extremity Status: Chronic Current Visit: No Code(s): I87.323 - Chronic venous hypertension (idiopathic) with inflammation of bilateral lower extremity (27) Localized edema Status: Chronic Current Visit: No Code(s): R60.0 - Localized edema (28) Non-pressure chronic ulcer of left calf with fat layer exposed Status: Resolved Current Visit: No Code(s): L97.222 - Non-pressure chronic ulcer of left calf with fat layer exposed (29) 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 Current Visit: No Code(s): E11.59 - Type 2 diabetes mellitus with other circulatory complications (30) Generalized weakness Status: Chronic Current Visit: No Code(s): R53.1 - Weakness (31) Hyperlipidemia Status: Chronic Current Visit: No Qualifiers: Code(s): E78.5 - Hyperlipidemia, unspecified (32) Diabetes Status: Chronic Current Visit: No Qualifiers: Code(s): E11.9 - Type 2 diabetes mellitus without complications (33) Hypertension Status: Chronic Current Visit: No Qualifiers: Code(s): I10 - Essential (primary) hypertension (34) Chronic venous hypertension (idiopathic) with ulcer of left lower extremity Status: Chronic Current Visit: No Code(s): I87.312 - Chronic venous hypertension (idiopathic) with ulcer of left lower extremity (35) Chronic venous stasis dermatitis Status: Chronic Current Visit: No Code(s): I87.2 - Venous insufficiency (chronic) (peripheral) (36) Non-pressure chronic ulcer of left ankle with fat layer exposed Status: Resolved Current Visit: No Code(s): L97.322 - Non-pressure chronic ulcer of left ankle with fat layer exposed (37) 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 Status: Resolved Current Visit: No Code(s): I70.249 - Atherosclerosis of [place] arteries of left leg with ulceration of unspecified site (38) Type 2 diabetes mellitus Status: Chronic Current Visit: No Code(s): E11.9 - Type 2 diabetes mellitus without complications History of Present Illness Chief Complaint: Left buttocks ulceration History of Wound: This is a 77-year-old white female that has history of buttocks ulcer approximately 2 years ago. It healed with self treatment using bag balm. It has recurred and the patient has been treating herself with [id number] zinc oxide. Patient complains of increased pain and burning and unable to take it anymore. She presented with a small ulceration on her left buttocks cheek that was tender to palpate erythematous around the edges has a crusted yellow slough across it. 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 (Chronic) Positional vertigo (Chronic) Obesity (Chronic) Hx of venous thrombosis and embolism (Chronic) history of cellulitis of leg (Chronic) Leg swelling (Chronic) Hyperpigmentation of skin (Chronic) Lipodermatosclerosis (Chronic) 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 The patient underwent excision of a right hip lipoma in the past. Patient is a Ab0. Allergies/Adverse Reactions: Allergies atorvastatin calcium [From Lipitor] Allergy (Verified 09/21/17 11:28) Unknown ezetimibe [From Zetia] Allergy (Verified 09/21/17 11:28) Unknown lisinopril Allergy (Verified 09/21/17 11:28) Unknown neomycin [Neomycin] Allergy (Verified 09/21/17 11:28) Unknown neomycin sulfate [From Neosporin ([id number])] Allergy (Verified 09/21/17 11:28) Itching polymyxin B [Polymyxin B] Allergy (Verified 09/21/17 11:28) Unknown Sulfa (Sulfonamide Antibiotics) Allergy (Verified 09/21/17 11:28) Unknown tetracycline [Tetracycline] Allergy (Verified 09/21/17 11:28) Itching adhesive tape Adverse Reaction (Severe, Verified 09/21/17 11:28) Unknown Home Medications: Ambulatory Orders Medication Instructions Recorded Cholecalciferol (Vitamin D3) 2,000 unit PO DAILY 01/15/17 [Vitamin D3] Famotidine [Pepcid] 20 mg PO BID 01/15/17 Irbesartan [Avapro] 75 mg PO DAILY 01/15/17 Meclizine HCl [Antivert] 25 mg PO TID PRN PRN 01/15/17 Metformin HCl [Glucophage] 500 mg PO DAILY 01/15/17 Pentoxifylline [Trental] 400 mg PO TID 01/15/17 Potassium Chloride [K-Dur] 10 meq PO DAILY PRN 01/15/17 Pravastatin [Pravachol] 80 mg PO QHS 01/15/17 Torsemide [Demadex] 20 mg PO DAILY 01/15/17 cyanocobalamin (vit B-12) 1,000 1,000 mcg PO QDAY 09/21/17 mcg/mL oral drops - Family History Maternal Family History: Family History (Last Reviewed 09/21/17 @ 11:30 by Lila Costa) Mother CAD (coronary artery disease) Myocardial infarction Son Hypertension Brother Aortic aneurysm No pertinent history, - - Patient's father at age of 74 with a history of diabetes mellitus. The patient's mother at age of 59 with a myocardial infarction. Paternal Family History: Family History (Last Reviewed 09/21/17 @ 11:30 by Lila Costa) Mother CAD (coronary artery disease) Myocardial infarction Son Hypertension Brother Aortic aneurysm No pertinent history Smoking Status: Former smoker Tobacco Use: Non-smoker Review of Systems Constitutional: Denies: Chills, Fever, Weight Change Eyes: Denies: Pain, Vision Change HEENT: Denies: Difficulty Hearing, Difficulty Swallowing, Sinus Congestion Cardiovascular: Denies: Chest Pain, Palpitations Respiratory: Denies: Cough, Shortness of Breath Gastrointestinal: Denies: Diarrhea, Nausea, Vomiting Genitourinary: Denies: Dysuria, Hematuria Endocrine: Denies: Heat/ Cold Intolerance, Polydipsia, Polyuria Hematologic/ Lymphatic: Denies: Easy Bruising, Easy Bleeding - Physical Exam Vital Signs Temp Pulse Resp BP 98.6 F 83 16 151/80 H 06/11/18 13:03 06/11/18 13:03 06/11/18 13:03 06/11/18 13:03 General: Alert, Oriented x3, Cooperative, No apparent distress, Well developed, Well nourished HEENT: Atraumatic, PERRLA, EOMI, Normocephalic Oral: Moist Mucosa Neck: No JVD Lungs: Normal air movement Abdomen: Non-Distended Extremities: No clubbing, No cyanosis, No Calf Tenderness, Edema - Lower extremities Skin: No breakdown, - - The left buttock ulceration is now completely healed and epithelialized. Wound Measurements and Assessment WC - Nurse 1 - General Ulcer Measurement Start: 06/11/18 13:03 Freq: Status: Active Protocol: Activity Type Activity Date Activity User E-Sign Co-Sign Detail Recorded Client Recorded Date Recorded By Document 06/11/18 13:03 [facility] [id number] 06/11/18 13:10 [facility] 06/11/18 13:03 Wound Center Nurse 1 [Ulcer Assessment] #3- LT BUTTOCK -Combined with other wound No -Current Size (cm) - Length 0.1 -Current Size (cm) - Width 0.1 -Current Size (cm) - Depth 0.1 -Total Square Cm 0.01 -Date of Last Picture (Recall this 06/11/18 field) -Photo Taken Yes -Epithelialization Large 67-100% -Tunneling No -Undermining/Tunneling No -Circular Undermining No -Exudate Amt None Present (0 %) -Structure Exposed N/A -Texture (Leslye-wound Skin Appearance) Scarring -Moisture (Leslye-wound Skin Appearance Assessed ) -Color (Leslye-wound Skin Appearance) Assessed -Temperature (Leslye-wound Skin No Abnormality Appearance) (Pt Warm) -Tenderness on Palpation (Leslye-wound No Skin Appearance) -Ulcer Cleansing Rinsed/ Irrigated with Saline -Foul Odor after Cleansing No -Anesthetic Used 5% Lidocaine Gel WC - Nurse 2 - General Ulcer CM Notes Start: 06/11/18 13:03 Freq: Status: Active Protocol: Activity Type Activity Date Activity User E-Sign Co-Sign Detail Recorded Client Recorded Date Recorded By Document 06/11/18 13:34 [id number] 06/11/18 13:42 06/11/18 13:34 Wound Center Nurse 2 [Procedure/Treatment] -Time 13:34 -Correct Patient Yes -Correct Side, Site, Position Yes -Correct Procedure Yes -Procedure Performed No -Post Debridement Size (cm) - Length 0 -Post Debridement Size (cm) - Width 0 -Post Debridement Size (cm) - Depth 0 -Total Square Cm 0 -Wound/Ulcer Outcome Healed- Epithelialized [See Physician Procedure note for Specifics] Pain Scale: 0-10 Numeric [Pain] -Is Patient Pain Free? Yes Neurological: Cranial nerves II-XII grossly intact, Neuro grossly intact Psych/Mental Status: Normal Affect, Appropriate, Alert and oriented to time, place, person, mood and affect Debridement Note Post-Debridement Measurements/Treatment WC - Nurse 2 - General Ulcer CM Notes Start: 06/11/18 13:03 Freq: Status: Active Protocol: Activity Type Activity Date Activity User E-Sign Co-Sign Detail Recorded Client Recorded Date Recorded By Document 06/11/18 13:34 [id number] 06/11/18 13:42 06/11/18 13:34 Wound Center Nurse 2 #3- LT BUTTOCK -Time 13:34 -Correct Patient Yes -Correct Side, Site, Position Yes -Correct Procedure Yes -Procedure Performed No -Post Debridement Size (cm) - Length 0 -Post Debridement Size (cm) - Width 0 -Post Debridement Size (cm) - Depth 0 -Total Square Cm 0 -Wound/Ulcer Outcome Healed- Epithelialized Pain Scale: 0-10 Numeric Is Patient Pain Free? Yes No debridement was completed today Assessment/Plan Assessment: Patient's left buttock ulceration is now completely healed and epithelialized. Plan: With respect to the patient's lower extremity swelling and edema and her chronic venous disease, leg elevation has been encouraged. Her legs are to be elevated to heart level, or higher. An adequate amount of compression is also been recommended, though the patient is resistant to this idea. At least 20-30 mmHg compression has been recommended, though the patient indicates that she will do as she pleases. She prefers a lesser degree of compression. This factor suggests a likelihood of lower extremity venous ulcer recurrence. The patient developed an ulceration on her left buttock. Offloading measures were recommended. This was discussed with the patient thoroughly. Milena was implemented topically, every other day. The patient is now completely healed and epithelialized, and will be discharged, for follow-up on an as-needed basis. The patient is not a smoker. Influenza vaccine was not administered today. Patient weighs 171 pounds. She stands 4 feet 10 inches tall. Her BMI is 35.7, which places her in an obese class II category. Weight loss has been rec ommended, and collaboration with the patient's primary care physician has been advised in this regard.
== END 2018-07-05 23:59 ==
LOC: WC 13:01
PROVIDERS: Family Provider Nurse Practitioner; PCP Nurse Practitioner; Referring Provider Surgery; Visit Provider Surgery
DX: Z09 Encounter for follow-up examination after completed treatment for conditions other than malignant neoplasm (principal); R60.0 Localized edema; M79.89 Other specified soft tissue disorders; I25.10 Atherosclerotic heart disease of native coronary artery without angina pectoris; E66.9 Obesity, unspecified; Z68.35 Body mass index [BMI] 35.0-35.9, adult; Z71.3 Dietary counseling and surveillance; Z86.718 Personal history of other venous thrombosis and embolism; K21.9 Gastro-esophageal reflux disease without esophagitis; M19.90 Unspecified osteoarthritis, unspecified site; E11.59 Type 2 diabetes mellitus with other circulatory complications; E78.5 Hyperlipidemia, unspecified; I10 Essential (primary) hypertension; I87.2 Venous insufficiency (chronic) (peripheral); Z79.899 Other long term (current) drug therapy; Z79.84 Long term (current) use of oral hypoglycemic drugs; Z87.891 Personal history of nicotine dependence
CPT/HCPCS: 99213; G0463

== ENCOUNTER → 2018-10-23 11:49 | Outpatient (CLI) | payer MEDICARE, OTHER, SELFPAY ==
[2018-09-10 13:37] VITALS: BMI 36.8
--- NOTE | 2018-10-23 11:57 | RAD_ITS ---
STUDY: X-RAY CHEST REASON FOR EXAM: Female, 78 years old. Shortness of breath. TECHNIQUE: PA and lateral views of the chest. COMPARISON: Comparison is made with prior study dated April 29, 2013. FINDINGS: Hyperinflation. No acute abnormality is seen. There is no demonstrated pleural abnormality. Normal size heart. Normal mediastinum and elsy. Normal visualized pulmonary arteries. There is atherosclerotic tortuosity of the aortic arch and descending thoracic aorta. There are diffuse degenerative changes of the visualized thoracic spine. Normal visualized ribs, clavicles, and shoulders. There is no demonstrated abnormality of the visualized soft tissue structures of the upper abdomen. RAD/Chest PA and Lateral IMPRESSION: Hyperinflation. No acute abnormality is seen. Electronically Signed: Sergio Perea, at 12:39 EDT , Service support ,
--- NOTE | 2018-10-23 11:57 | RAD_ITS ---
STUDY: X-RAY - ABDOMEN/PELVIS REASON FOR EXAM: Female, 78 years old. One-week history of right lower quadrant pain. TECHNIQUE: AP supine and upright views of the abdomen and pelvis. COMPARISON: None. FINDINGS: Normal visualized lung bases. There is a moderate amount of colonic fecal material. There is no demonstrated free abdominal air. The visualized liver, spleen and kidneys are grossly normal in size and morphology. There are calcified phleboliths in the pelvis. There are diffuse degenerative changes of the visualized lumbar spine. Mild dextroscoliosis. Degenerative changes of the sacroiliac joints bilaterally. RAD/Abd Inc Decub and/or Erect IMPRESSION: Moderate amount of fecal material is seen in the colon. Electronically Signed: Sergio Perea, at 12:35 EDT , Service support ,
--- NOTE | 2018-10-23 14:32 | US_ITS ---
STUDY: ABDOMINAL ULTRASOUND - RIGHT UPPER QUADRANT REASON FOR VISIT: Female, 78 years old. Abdominal pain TECHNIQUE: Ultrasound evaluation of the right upper quadrant was performed with real-time and static gomez-scale imaging. TECHNICAL QUALITY: Adequate. COMPARISON: November 16, 2017 FINDINGS: Liver: The liver measures 15.1 cm. There is normal echogenicity of the liver. The bile ducts are within normal limits. There is hepatic color flow. The direction of portal flow is hepatopetal. There is no demonstrated mass lesion. Gallbladder: Normal distended gallbladder. The gallbladder wall measures 2 mm. There is a negative sonographic Molina's sign. There is no pericholecystic fluid. There is biliary sludge dependent within the gallbladder. Common Bile Duct (C.B.D.): The common bile duct measures 5-6 mm. Pancreas: Pancreatic tail is not well visualized due to bowel gas. There is normal echogenicity of the pancreas. There is no demonstrated pancreatic mass or cyst. Right Kidney: Normal size of the right kidney. The right kidney measures 9.2 cm. Normal renal cortex. The right cortex measures 1 cm. There is no demonstrated renal mass or cyst. There is no right hydronephrosis. US/Gallbladder IMPRESSION: Gallbladder sludge without evidence of cholecystitis or common bile duct obstruction Electronically Signed: Paul Alexandre MD at 17:13 EDT , Service support ,
== END ==
PROVIDERS: Family Provider Nurse Practitioner; PCP Nurse Practitioner; Referring Provider Nurse Practitioner; Visit Provider Nurse Practitioner
DX: R10.9 Unspecified abdominal pain (principal); R06.02 Shortness of breath
CPT/HCPCS: 71046; 74019; 76705

== ENCOUNTER 2018-11-22 05:39 | Day surgery (SDC) | payer MEDICARE, OTHER, SELFPAY ==
--- NOTE | 2018-11-08 01:46 | HP_ITS ---
Intake Vital Signs 11/08/18 Body Mass Index (BMI) 36.8 11/08/18 Height 4 ft 10 in 11/08/18 Weight: 179 lb 11/08/18 Body Mass Index (BMI) 37.4 11/08/18 Blood Pressure 154/70 H 11/08/18 Blood Pressure Location Rt brachial 11/08/18 Blood Pressure Position Sitting 11/08/18 Respiratory Rate 18 11/08/18 Pulse Rate 58 L 11/08/18 Pulse Source Monitor 11/08/18 Temperature 97.9 F 11/08/18 Temperature Source Oral 11/08/18 Pulse Ox 100 11/08/18 Oxygen Delivery Method room air Intake Visit Reasons: Gall Bladder Sludge US 10/23/18 Business Communications Instructor Required: No Is patient in pain?: No Allergies atorvastatin calcium [From Lipitor] Allergy (Verified 11/08/18 13:05) Unknown ezetimibe [From Zetia] Allergy (Verified 11/08/18 13:05) Unknown lisinopril Allergy (Verified 11/08/18 13:05) Unknown neomycin [Neomycin] Allergy (Verified 11/08/18 13:05) Unknown neomycin sulfate [From Neosporin ([id number])] Allergy (Verified 11/08/18 13:05) Itching polymyxin B [Polymyxin B] Allergy (Verified 11/08/18 13:05) Unknown Sulfa (Sulfonamide Antibiotics) Allergy (Verified 11/08/18 13:05) Unknown tetracycline [Tetracycline] Allergy (Verified 11/08/18 13:05) Itching adhesive tape Adverse Reaction (Severe, Verified 11/08/18 13:05) Unknown Medications Cholecalciferol (Vitamin D3) [Vitamin D3] 2,000 unit PO DAILY 01/15/17 [History Confirmed 11/08/18] Famotidine [Pepcid] 20 mg PO BID 01/15/17 [History Confirmed 11/08/18] Irbesartan [Avapro] 75 mg PO DAILY 01/15/17 [History Confirmed 11/08/18] Meclizine HCl [Antivert] 25 mg PO TID PRN PRN 01/15/17 [History Confirmed 11/08/18] Pentoxifylline [Trental] 400 mg PO TID 01/15/17 [History Confirmed 11/08/18] Potassium Chloride [K-Dur] 10 meq PO DAILY PRN 01/15/17 [History Confirmed 11/08/18] cyanocobalamin (vit B-12) 1,000 mcg/mL oral drops 1,000 mcg PO QDAY 09/21/17 [History Confirmed 11/08/18] pravastatin 80 mg tablet 40 mg PO .3xweek tab 09/10/18 [History Confirmed 11/08/18] torsemide 20 mg tablet 20 mg PO DAILY PRN 09/10/18 [History Confirmed 11/08/18] [facility] Medical History Type 2 diabetes mellitus (Chronic) Pure hypercholesterolemia (Chronic) Essential hypertension (Chronic) GERD (gastroesophageal reflux disease) (Chronic) Osteoarthritis (Chronic) Edema of both legs (Chronic) Hiatal hernia (Chronic) Venous stasis ulcer (Chronic) Decubitus ulcer of left buttock, stage 2 (Acute) Pressure ulcer of right buttock, stage 3 (Acute) Abnormal exercise myocardial perfusion study (Chronic) Palpitations (Chronic) Atherosclerotic heart disease of [place] coronary artery without angina pectoris (Chronic) Cellulitis of left leg (Resolved) Failure to thrive (Chronic) Positional vertigo (Chronic) Ulcer (Resolved) Obesity (Chronic) Hx of venous thrombosis and embolism (Chronic) history of cellulitis of leg (Chronic) Leg swelling (Chronic) Hyperpigmentation of skin (Chronic) Lipodermatosclerosis (Chronic) 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) Localized edema (Chronic) Non-pressure chronic ulcer of left calf with fat layer exposed (Resolved) 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) Generalized weakness (Chronic) Chronic venous hypertension (idiopathic) with ulcer of left lower 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) Non-pressure chronic ulcer of left ankle with fat layer exposed (Resolved) 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 (Resolved) Abdominal pain (Acute) Nausea (Acute) Sludge in gallbladder (Acute) Heel spur (Resolved) Diabetes (Inactive) Hypertension (Inactive) Surgical History Rectal fistula (Chronic) History of left heart catheterization (Acute) history excision heel spur right foot (Acute) H/O dilation and curettage (Resolved) History of cataract surgery (Resolved) History of tubal ligation (Resolved) Lipoma (Resolved) Family History Mother CAD (coronary artery disease) Myocardial infarction Son Hypertension Brother Aortic aneurysm Father Diabetes Heart disease Social History Smoking Status: Former smoker alcohol intake: never substance use type: does not use caffeine: Yes Type: coffee Number of servings: 1 what type of physical activity do you participate in: none seatbelt use: always do you feel safe at home: Yes HPI HPI HPI: BRISSA ARRIAGA, is a 78 F who presents to the office today for HPI HPI Surgical H&P: Yes HPI: BRISSA ARRIAGA, is a 78 F who presents to the office today for evaluation of right upper quadrant abdominal pain and nausea. Patient has had this going on for many months she has a history of having a ulcer and being treated with H2 blockers as well as Carafate. She has had a recent gallbladder ultrasound which showed sludge but no pericholecystic fluid and no other signs of acute cholecystitis. The gallbladder wall measured 2 mm in size. ROS General General: Yes weight change and fatigue; no appetite, colon cancer, breast cancer or weakness HEENT HEENT: Yes eye surgery; no difficulty swallowing, eye injury, swollen glands or hoarseness Endo Endocrine: Yes diabetes mellitus; no thyroid disease, thyroid cancer, Hair loss, heat intolerance or cold intolerance Skin Skin: No rash or changing moles Breast Breast: No left breast lump, right breast lump, nipple discharge, breast pain, abnormal mammogram, abnormal US or breast enlargement Musc Musculoskeletal: Yes back problems and arthritis; no rheumatoid arthritis, gout or joint pain Cardio Cardiovascular: Yes high blood pressure; no murmur, pacemaker, heart disease, atrial fibrillation, heart attack, heart stent, palpitations, shortness of breat with exertion or chest pain Psych Psychiatric: Yes anxiety; no depression or hearing voices Resp Respiratory: Yes shortness of breath, No sleep apnea, No cough, No COPD, No asthma, No emphysema, No wheezing Gastro Gastrointestinal: Yes abdominal pain, Yes nausea or vomiting, Yes diarrhea, Yes constipation, No blood in stool, Yes acid reflux, No hemorrhoids, No ulcers, Yes gallbladder problem, No black,tarry stools Raoul Hematologic: No blood thinners, No blood disorders, No bleeding, No anemia, No blood clots Neuro Neurologic: No system reviewed and no additional complaints, except as docu, No as per HPI, No abnormal walking, No abnormal hearing, No abnormal movements, No abnormal speech, No behavioral changes, No burning sensations, No confusion, No seizure-like activity, No unsteadiness, No dizziness, No localized weakness, No frequent falls, No headache(s), No lack of coordination, No loss of vision, No memory loss, No numbness, No other visual disturbances, No radiating pain, No restless legs, No sensory deficit, No fainting, No tingling, No tremor(s), No weakness, No other Exam Const General: no acute distress, well developed, well hydrated Orientation: oriented to person, oriented to place, oriented to time [facility] Head: normocephalic, atraumatic Ears: external ears normal Mouth: moist mucous membranes Eyes Sclera: sclerae normal Pupils: normal by confrontation Neck Neck: no lymphadenopathy noted Neck mass: No Thyroid: thyroid normal, symmetrical Chest Chest palpation & inspection: normal inspection of the chest Breast Palpation: No nipple discharge Resp Effort & Inspection: normal respiratory effort Auscultation: clear to auscultation bilaterally Percussion: percussion normal Cardio Rate: regular rate Rhythm: regular rhythm Heart Sounds: no murmurs GI Palpation: soft, no hepatosplenomegaly, no masses, tender Auscultation: normal bowel sounds Rectal Exam: other Other: Rectal exam deferred. Extrem General: normal to inspection, no clubbing, cyanosis or edema Assessment & Plan Problems 1. Gallbladder sludge K82.8 2. Right upper quadrant abdominal pain R10.11 3. Umbilical hernia without obstruction and without gangrene K42.9 Plan Reviewed the anatomy with the patient and discussed the procedure: laparoscopic cholecystectomy with possible cholangiograms, possible open. Review risks including but not limited to bleeding, infection, hernia, bile leak, retained gallstones requiring another procedure ERCP- Endoscopic Retrograde Cholangiopancreatography, injury to another organ (bile ducts, common bile duct, small bowel, etc.) and conversion to an open procedure. All questions were answered. Plan to do an umbilical herniorrhaphy without mesh. Reviewed the procedure with the patient including the risks, including but not limited to infection, bleeding, injury to the small bowel, and recurrence. All questions were answered. Also, discussed risk of strangulated bowel. Cautioned the patient that if she has N/V, ABD distention, increased umbilical pain or changes of the skin over the hernia needs to go to the ER. Patient understands and in the process of me repairing her umbilical hernia if the skin looks too tenuous I am going to remove her umbilicus and only give her a straight line scar. Coding Level of Care Code Off vis,new,level 3 Diagnoses Gallbladder sludge K82.8 Right upper quadrant abdominal pain R10.11 Umbilical hernia without obstruction and without gangrene K42.9 11/08/18 1348 <Electronically signed by Alan mchugh MD> Date _ Alan Valencia MD I have re-examined the patient. There are no clinical changes since date of exam.
[2018-11-08 13:06] VITALS: BMI 36.8
--- NOTE | 2018-11-19 12:30 | EKG12_ITS ---
Test Reason : PRE-OP Blood Pressure : / mmHG Vent. Rate : 062 BPM Atrial Rate : 062 BPM P-R Int : 222 ms QRS Dur : 096 ms QT Int : 400 ms P-R-T Axes : 063 -51 042 degrees QTc Int : 406 ms Sinus rhythm with sinus arrhythmia with 1st degree A-V block Left anterior fascicular block Abnormal ECG Confirmed by ELVA BAUTISTA, PEDRO ([id number]), food expeditor BARBARA JACOBO ([id number]) on 11/20/2018 9:20:43 AM Referred By: Alan Valencia Confirmed By:PEDRO STEVENSON MD
[2018-11-22] VITALS (9 sets, daily range): BP systolic 124–150; BP diastolic 45–76; PULSE 54–86; RESP 16–20; TEMP 36.7–37.1; O2SAT 92–100; BMI 36.4
--- NOTE | 2018-11-22 07:15 | GALL_PTH ---
PATIENT: BRISSA ARRIAGA LOC: [facility] U#:[id number] AGE/SX: 78/F ROOM: RE11/22/[address]: Dr. Alan Valencia MD : [id number] BED: DIS: 11/22/2018 SPEC #: [id number] RECD: 11/22/18 15:07 STATUS: NIRANJAN SNEHA #: [id number] RUBY: 11/22/18 07:[address]: Alan Valencia DEPT: SURGICAL PATHOLOGY RECD BY: Foster Hernandez ENTERED: 11/23/18 08:05 SP TYPE: JAMILA CURRIE DR: Lesly Chairez, HAULAGE ENGINE OPERATOR-C Tissues: Gallbladder, NOS Procedures: Surgery Specimen Level III HEADER OPERATION: Laparoscopic cholecystectomy, umbilical hernia repair PRE-OP DIAGNOSIS: Gallbladder sludge; right upper quadrant abdominal pain; umbilical hernia TISSUE SUBMITTED: Gallbladder and contents MICROSCOPIC DIAGNOSIS Gallbladder and contents, cholecystectomy: Chronic cholecystitis. Cholelithiasis. CE:hal 11/26/18 MICROSCOPIC DESCRIPTION Slides are reviewed. GROSS DESCRIPTION Received in fixative is one container labeled with the patient's name and designated gallbladder and contents. The specimen consists of an intact gallbladder measuring 9.5 x 3.8 x 3.8 cm. The serosal surface is green and smooth. The gallbladder is opened to reveal several black pigmented calculi ranging in diameter from 0.1 to 0.2 cm in diameter. The mucosal surface of the gallbladder is green and velvety. Sections through the cystic duct demonstrate a patent lumen. The gallbladder wall is uniform and thin (0.2 cm). Plant Protection Guard sections of the gallbladder and the cystic duct are submitted in one cassette. / CE:hal 11/23/18 TC:3 CPT: 79454
[2018-11-22] MEDS: Cefazolin 2 GM in 0.9% Normal Saline 100 ML IV (07:17)
--- NOTE | 2018-11-22 08:09 | OP.PCM_ITS ---
Problem List (1) Gallbladder sludge Status: Acute (2) Right upper quadrant pain Status: Acute (3) Umbilical hernia without obstruction or gangrene Status: Acute Report of Operation Date of Procedure: 11/22/18 Pre-Operative Diagnosis: 1. Gallbladder sludge. 2. Right upper quadrant abdominal pain. 3. Umbilical hernia Post-Operative Diagnosis: Same Surgery/Procedure Performed:: 1. Laparoscopic cholecystectomy. 2. Umbilical herniorrhaphy Type of Anesthesia:: General Anesthesiologist: Rikki Quick Estimated Blood Loss (mL): < 25 cc Description of Procedure: Patient was brought to the operating room. Placed in the supine position. Under excellent general trach intubation the abdomen was sterilely prepped and draped in usual fashion. Curvilinear incision was made above the umbilicus dissection was carried down I dissected off the umbilical hernia from the skin I did unfortunately buttonhole a small section of the umbilicus approximately 3 mm in width but I was able to get access to the abdominal cavity I placed a 10/12 trocar through the umbilical defect. Abdomen was insufflated to 15 torr. Patient was placed in the head up position rotated to the left subxiphoid #5 trocar was placed, inferior to this another #5 trocar was placed, laterally a #5 trocar was placed. All these under direct visualization without injury to underlying structures. Fundus of the gallbladder was retracted cephalad directi on I dissected the cystic artery free first place a Hemoclip on this and placed one proximally distally. Ligated the artery and identified the cystic duct placed hemoclips proximally distally and ligated the duct identified the posterior branch of the cystic artery placed a Hemoclip on this. I placed another one distally. I ligated the artery. Deliver the gallbladder from gallbladder bed with use of electrocautery. Place a specimen specimen bag delivered through the umbilical port. Irrigated the right upper quadrant good hemostasis was noted. Took down some adhesions from the umbilical defect without difficulty. I deflated the abdomen. I closed the umbilical defect with 3 interrupted sutures of 0 Nurolon reinflated the abdomen and inspected I had good hemostasis and there was no adhesions on the repair of the umbilical defect. I then went to the umbilical skin that I had buttonholed I closed this with deep dermal stitches of 4-0 Monocryl. The rest of the skin incisions were closed with 4-0 Monocryl deep dermal stitches. Sterile dressings were applied and the patient tolerated the procedure well. - Admit VTE Documentation VTE Present on Admission: No VTE Mechan Device Prophylaxis: SCD's VTE Pharm Prophylaxis ordered?: No Reason prophylaxis not ordered:: Treatment Not Indicated
[2018-11-22] MEDS: Bupivacaine Mpf 0.5% 30 ML VIAL (08:10)
--- NOTE | 2018-11-22 08:12 | DCINST_ITS ---
Discharge Diet: Light diet - advance as tolerated Discharge Activity: May Not Drive - for 2-3 days or while taking narcotic pain medications., - - Do not drive, work heavy equipment or sign legal documents for 24 hours. May shower in (days): 1 - with the bandage in place. Additional Activity Instructions:: Pain medication may cause nausea. You should typically eat light foods as you take your pain medications. Pain medication may also cause constipation. If this is a problem for you, please discuss with your doctor. Call your doctor if your incision/area has: Continuous Slow Oozing, Sudden Increased Bleeding, Increased Pain/ Swelling, Increased Redness, Foul Smelling Discharge Call your doctor if you observe: Fever of 101 or Higher Suture Line Care: Avoid Pulling/Pushing, Avoid Pinching/Bending Additional Dressing/Incision Instructions:: Leave operative bandaids on for 2 days. When you remove dressing, leave Steri-Strips on until your follow-up appointment, or until the Steri-Strips fall off on their own. Allergies/Adverse Reactions: Allergies atorvastatin calcium [From Lipitor] Allergy (Verified 11/16/18 08:17) Unknown ezetimibe [From Zetia] Allergy (Verified 11/16/18 08:17) Unknown lisinopril Allergy (Verified 11/16/18 08:17) Unknown neomycin [Neomycin] Allergy (Verified 11/16/18 08:17) Unknown neomycin sulfate [From Neosporin ([id number])] Allergy (Verified 11/16/18 08:17) Itching polymyxin B [Polymyxin B] Allergy (Verified 11/16/18 08:17) Unknown Sulfa (Sulfonamide Antibiotics) Allergy (Verified 11/16/18 08:17) Unknown tetracycline [Tetracycline] Allergy (Verified 11/16/18 08:17) Itching adhesive tape Adverse Reaction (Severe, Verified 11/16/18 08:17) Unknown Medications to take at Discharge Cholecalciferol (Vitamin D3) [Vitamin D3] 2,000 unit PO DAILY 01/15/17 Famotidine [Pepcid] 20 mg PO BID 01/15/17 Irbesartan [Avapro] 75 mg PO DAILY 01/15/17 Meclizine HCl [Antivert] 25 mg PO TID PRN PRN 01/15/17 Pentoxifylline [Trental] 400 mg PO BID 01/15/17 Potassium Chloride [K-Dur] 10 meq PO DAILY PRN 01/15/17 cyanocobalamin (vit B-12) 1,000 mcg/mL oral drops 1,000 mcg PO QDAY 09/21/17 pravastatin 80 mg tablet 40 mg PO MOWE tab 09/10/18 torsemide 20 mg tablet 20 mg PO DAILY PRN 09/10/18 Horse [place] Seed [Horse [place]] 300 mg PO DAILY 11/16/18 Oxycodone HCl/Acetaminophen [Percocet 5/325] 1 - 2 tab PO Q4H PRN PRN 6 Days #30 tab 11/22/18 The following prescriptions were given: Oxycodone HCl/Acetaminophen [Percocet 5/325] 1 - 2 tab PO Q4H PRN PRN 6 Days #30 tab PRN Reason: Pain Prescription Printed Orders to be completed after discharge: 12 Lead EKG [[facility]] Time Frame: 11/16/18, Facility: [facility], Location: Cardiovascular Services Primary Care Physician: Lesly Chairez NP-C [Primary Care Provider] - Test Results: Test results from this visit will be discussed in further detail at your follow- up appointment, if applicable. Please Follow Up With: Alan Valencia MD - Please call [phone] to schedule an appointment. When: 7 days after your surgery.
[2018-11-22 08:51] LABS: Bedside Glucose 100 mg/dL (70-110)
[2018-11-22] MEDS: oxyCODONE 5 MG Tablet PO (09:34)
[2018-11-22] MEDS: Acetaminophen 325 MG Tablet PO (09:35)
== END 2018-11-22 13:17 | disposition home or self-care (01) ==
LOC: PAT 05:41 → AC 05:42
PROVIDERS: Family Provider Nurse Practitioner; PCP Nurse Practitioner; Referring Provider Surgery; Visit Provider Surgery
PROC: (CPT 47562; principal; 2018-11-22 06:55)
DX: K82.8 Other specified diseases of gallbladder (principal); R10.11 Right upper quadrant pain; K42.9 Umbilical hernia without obstruction or gangrene; E11.9 Type 2 diabetes mellitus without complications; E78.00 Pure hypercholesterolemia, unspecified; I10 Essential (primary) hypertension; K21.9 Gastro-esophageal reflux disease without esophagitis; I25.10 Atherosclerotic heart disease of native coronary artery without angina pectoris; Z86.718 Personal history of other venous thrombosis and embolism; Z87.891 Personal history of nicotine dependence
CPT/HCPCS: 00750; 47562; 49585; 82962; 88304; 93005; J7120; J2405

== ENCOUNTER 2019-04-15 15:32 | Inpatient (IN) | payer MEDICARE, OTHER, SELFPAY ==
[2018-11-22 06:14] VITALS: BMI 36.4
[2019-04-15 15:34] VITALS: BP 158/75; PULSE 101; RESP 20; TEMP 36.6; O2SAT 97; BMI 35.9
--- NOTE | 2019-04-15 15:51 | ED.VISSUMM ---
- ER Visit Summary Date of Service: 04/15/19 Chief Complaint: Right upper quadrant abdominal pain History of Present Illness: The patient is a 78 F history of prior cholecystectomy, hiatal hernia, prior peptic ulcer disease and diet-controlled diabetes. Patient states she had diarrhea this morning which was loose. No melena. Became nauseated. Has had right upper quadrant abdominal pain. No fever or chills. Nausea without vomiting. No trauma. Physical Examination: Older female no acute distress. Vital signs are stable. She is afebrile. Initial pressure 158/75. HEENT exam unremarkable. Neck nontender no lymphadenopathy. Lungs clear to auscultation bilaterally. Heart regular rate and rhythm no murmur. Chest were nontender. Abdomen soft mild epigastric and right upper quadrant tenderness. No Molina sign. No signs of obstruction. No peritoneal signs. The left upper left lower and right lower quadrants are all unremarkable. Normal bowel sounds. No pulsatile mass. Patient is moving all 4 extremities. Neurologically she is awake and alert with no focal motor deficits. Test Results: CBC White count 7. Hemoglobin 12. Chemistries unremarkable normal creatinine gap. Liver enzymes slightly elevated total bilirubin 1.1. Direct bilirubin 0.3 and AST of 53. Otherwise liver enzymes are normal. Lipase elevated at 4695. Consistent with acute pancreatitis. Troponin normal. EKG sinus rhythm rate of 72 with PACs. I spoke to the hospitalist. The patient will be admitted she would like a CT abdomen pelvis with IV contrast prior to admission. That has been ordered. Emergency Department Course and Treatment: Patient with right upper quadrant midepigastric abdominal pain. Only mildly tender. Labs will be obtained. Clinically this does not appear to be cardiac. She has had a history of both a bleeding ulcer and a cholecystectomy in the past. Treatment Plan: Mid to the hospitalist. Disposition: Discharge Impression: Acute abdominal pain secondary to acute pancreatitis This note was generated with [employer] dictation software. It may contain incorrect words, spelling, and punctuation that were not noted in review of the chart prior to signing ED Disposition - Plan for ED Patient: Referrals: Lesly Chairez, NOHEMY-C [Primary Care Provider] -
--- NOTE | 2019-04-15 15:57 | EKG12_ITS ---
Test Reason : ABD PAIN Blood Pressure : / mmHG Vent. Rate : 077 BPM Atrial Rate : 077 BPM P-R Int : 256 ms QRS Dur : 100 ms QT Int : 362 ms P-R-T Axes : 070 -40 059 degrees QTc Int : 409 ms Sinus rhythm with 1st degree A-V block with Premature atrial complexes Left axis deviation Poor R wave progression Abnormal ECG Confirmed by NATALIA BAUTISTA, MARY ([id number]), associate entertainment editor MIKHAIL NOLASCO ([id number]) on 04/17/2019 9:35:49 AM Referred By: CARROLL Confirmed By:MARY FISHER MD
[2019-04-15] MEDS: 0.9% Normal Saline 1,000 ML 125 ML IV ×2 (16:03→22:57)
[2019-04-15] MEDS: Ondansetron 4 MG/2 ML Vial IV (16:04)
[2019-04-15 16:15] LABS: Absolute Lymphocyte Count 1.74 X10^3/uL (0.83-4.51); Absolute Neutrophil Count 5.3 X10^3/uL (2.0-7.7); Basophil# 0.02 X10^3/uL; Basophil% 0.3 % (0-1); Eosinophil# 0.07 X10^3/uL; Eosinophils% 0.9 % (0-5); Hematocrit 37.8 % (37-47); Hemoglobin 12.2 g/dL (12.0-15.0); Lymphocyte # 1.74 X10^3/ul (4.0); Lymphocyte % 22.4 % (19-41); Mean Corp Hgb Conc 32.3 g/dL (32-36); Mean Corpuscular Hgb 31.2 pg (27.0-32.0); Mean Corpuscular Volume 96.7 fL (81-99); Mean Platelet Vol. 11.7 fl (6.2-12.0); Monocyte# 0.68 X10^3/uL; Monocyte% 8.8 % (0-10); NRBC Flagged by Analyzer 0 % (0-5); Neutrophil # 5.25 X10^3/uL (2.7-7.7); Neutrophil % 67.5 % (47-70); Platelet Count 160 K/mm3 (150-450); RBC Distribution Width CV 12.9 % (11.6-14.6); RBC Distribution Width SD 46.4 fl (35.1-43.9); Red Blood Count 3.91 M/mm3 (4.2-5.4); White Blood Count 7.8 K/mm3 (4.4-11.0)
[2019-04-15] MEDS: Morphine 4 MG/ML Syringe IV (16:21)
[2019-04-15 16:45] LABS: AST(SGOT) 53 U/L (15-37); Alanine Aminotransfer ALT/SGPT 26 U/L (13-56); Alkaline Phosphatase 82 U/L (45-117); Anion Gap 7 (5-15); BUN 15 mg/dL (7-18); BUN/Creat Ratio 18.3 RATIO (10-20); Bilirubin, Direct 0.39 mg/dL (0.00-0.30); Calcium,Total 8.9 mg/dL (8.5-10.1); Chloride 106 mmol/L (98-107); Creatinine, Serum 0.82 mg/dL (0.55-1.02); EST Glomerular Filtration Rate 71 mL/min (>60); Est Glom Filt Rate - Afr Amer 86 mL/min (>60); Estimated Creatinine Clearance 68.41 ml/min; Glucose 96 mg/dL (74-106); Lipase 4695 U/L (73-393); Potassium 3.7 mmol/L (3.5-5.1); Sodium Level 141 mmol/L (136-145)
--- NOTE | 2019-04-15 16:59 | CT_ITS ---
STUDY: CT ABDOMEN AND PELVIS WITH CONTRAST REASON FOR EXAM: Female, 78 years old. Pancreatitis abdominal pain and diarrhea RADIATION DOSAGE (If Supplied By Facility): CTDIvol = ( 14.70 ) mGy, DLP = ( 803.43 ) mGycm TECHNIQUE: CT images were obtained from the dome of the diaphragm to the symphysis pubis without oral contrast. IV Isovue 300 100 was administered. Sagittal and coronal images were reconstructed. Individualized dose optimization techniques were used for this CT. COMPARISON: None. FINDINGS: The visualized lung bases are unremarkable. The visualized portions of the heart are within normal limits. There is a small hiatal hernia. There are no focal hepatic lesions. There is moderate central and peripheral biliary dilation. There is cholecystectomy. There is moderate dilation of the extrahepatic bile duct. Pancreatic duct is normal without dilation. Pancreas is normal without imaging findings of pancreatitis and there are no peripancreatic fluid collections. Spleen is normal. Normal bilateral adrenal glands. Normal right kidney. Normal left kidney. There is a left renal cyst and/or scar. There is no intestinal obstruction. Normal abdominal aorta. Normal inferior vena cava. Normal retroperitoneum. Normal urinary bladder. Normal abdominal wall. There is bilateral L5 lysis without anterolisthesis. There is osteoporosis. CT/Abdomen/Pelvis W IV Cont ONLY IMPRESSION: 1. Intrahepatic and extrahepatic biliary dilation without distinct obstructing lesion. A small lesion in the pancreatic head/ampulla below the resolution of CT is in the differential diagnosis, refer to further investigation/imaging. Electronically Signed: Renee Arambula, at 17:51 EST Tel , Service support ,
--- NOTE | 2019-04-15 17:06 | PCM.HP.STD ---
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 Pain is dull, worse with meals. No fever or chills associated. No sick contact. No new foods. Her vitals in ED showed temp 98F, HR 101, BP 158/75, RR 20, Spo2 97% on RA. Labs showed unremarkable CBCD, CMP also showed total bilirubin of 1.10, direct bilirubin 0.39, AST 53, lipase 4695. CT abd/pelvis showed intrahepatic and extrahepatic biliary dilatation without distinct obstruction, possible small lesion in pancreatic head/ampulla. 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) Positional vertigo (Chronic) Obesity (Chronic) Hx of venous thrombosis and embolism (Chronic) history of cellulitis of leg (Chronic) Leg swelling (Chronic) Hyperpigmentation of skin (Chronic) Lipodermatosclerosis (Chronic) 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) Localized edema (Chronic) 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) Generalized weakness (Chronic) Chronic venous hypertension (idiopathic) with ulcer of left lower 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) Type 2 diabetes mellitus (Chronic) Medical History: Medical History (Last Reviewed 11/08/18 @ 13:43 by Alan Valencia MD) Type 2 diabetes mellitus (Chronic) E11.9 Pure hypercholesterolemia (Chronic) E78.00 Essential hypertension (Chronic) I10 GERD (gastroesophageal reflux disease) (Chronic) K21.9 Osteoarthritis (Chronic) M19.90 Edema of both legs (Chronic) R60.0 Hiatal hernia (Chronic) K44.9 Venous stasis ulcer (Chronic) I83.009, L97.909 Decubitus ulcer of left buttock, stage 2 (Acute) L89.322 Pressure ulcer of right buttock, stage 3 (Acute) L89.313 Abnormal exercise myocardial perfusion study (Chronic) R94.39 Palpitations (Chronic) R00.2 Atherosclerotic heart disease of [place] coronary artery without angina pectoris (Chronic) I25.10 Mild Cellulitis of left leg (Resolved) L03.116 Failure to thrive (Chronic) [id number] Positional vertigo (Chronic) H81.10 Ulcer (Resolved) L98.499 Obesity (Chronic) E66.9 Hx of venous thrombosis and embolism (Chronic) Z86.718 history of cellulitis of leg (Chronic) Leg swelling (Chronic) M79.89 Hyperpigmentation of skin (Chronic) L81.9 Lipodermatosclerosis (Chronic) I83.10 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) I87.093 Chronic venous hypertension (idiopathic) with inflammation of bilateral lower extremity (Chronic) I87.323 Localized edema (Chronic) R60.0 Non-pressure chronic ulcer of left calf with fat layer exposed (Resolved) L97.222 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) E11.59 Generalized weakness (Chronic) R53.1 Chronic venous hypertension (idiopathic) with ulcer of left lower extremity (Chronic) I87.312 Chronic venous stasis dermatitis (Chronic) I87.2 Non-pressure chronic ulcer of left ankle with fat layer exposed (Resolved) L97.322 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 (Resolved) I70.249 Abdominal pain R10.9 Nausea R11.0 Sludge in gallbladder K82.8 Heel spur M77.30 Diabetes (Inactive) E11.9 Hypertension (Inactive) I10 Allergies atorvastatin calcium [From Lipitor] Allergy (Verified 04/15/19 15:34) Unknown ezetimibe [From Zetia] Allergy (Verified 04/15/19 15:34) Unknown lisinopril Allergy (Verified 04/15/19 15:34) Unknown neomycin [Neomycin] Allergy (Verified 04/15/19 15:34) Unknown neomycin sulfate [From Neosporin ([id number]-sbtur)] Allergy (Verified 04/15/19 15:34) Itching polymyxin B [Polymyxin B] Allergy (Verified 04/15/19 15:34) Unknown Sulfa (Sulfonamide Antibiotics) Allergy (Verified 04/15/19 15:34) Unknown tetracycline [Tetracycline] Allergy (Verified 04/15/19 15:34) Itching adhesive tape Adverse Reaction (Severe, Verified 04/15/19 15:34) Unknown Home Medications: Ambulatory Orders Medication Instructions Recorded Famotidine [Pepcid] 20 mg PO BID 01/15/17 Irbesartan [Avapro] 75 mg PO DAILY 01/15/17 Meclizine HCl [Antivert] 25 mg PO TID PRN PRN 01/15/17 Pentoxifylline [Trental] 400 mg PO BID 01/15/17 Potassium Chloride [K-Dur] 10 meq PO DAILY PRN 01/15/17 cyanocobalamin (vit B-12) 1,000 1,000 mcg PO DAILY 09/21/17 mcg/mL oral drops pravastatin 80 mg tablet 40 mg PO MOWE tab 09/10/18 torsemide 20 mg tablet 20 mg PO DAILY PRN 09/10/18 Horse [place] Seed [Horse 300 mg PO DAILY 11/16/18 [place]] Cholecalciferol (Vitamin D3) 2,000 unit PO DAILY 04/15/19 [Vitamin D3] Surgical History: Surgical History (Last Reviewed 11/08/18 @ 13:43 by Alan Valencia MD) Rectal fistula (Chronic) K60.4 1961 History of left heart catheterization Z98.890 history excision heel spur right foot H/O dilation and curettage Z98.890 History of cataract surgery Z98.49 History of tubal ligation Z98.51 Lipoma D17.9 removed from Rt hip Surgical History: - - 2009 had colonoscopy 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 the 1960s 1980 fatty tumor tubal ligation 3 d&c spir removed. The patient underwent excision of a right hip lipoma in the past. Patient is a Ab0. 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 Lives: Alone Smoking Status: Former smoker Tobacco Use: Non-smoker Alcohol: None Drugs: None - *Family History Maternal Family History: Family History (Last Reviewed 11/08/18 @ 13:43 by Alan Valencia MD) Mother CAD (coronary artery disease) Myocardial infarction Son Hypertension Brother Aortic aneurysm Father Diabetes Heart disease History Items: Heart Disease, - Paternal Family History: Family History (Last Reviewed 11/08/18 @ 13:43 by Alan Valencia MD) Mother CAD (coronary artery disease) Myocardial infarction Son Hypertension Brother Aortic aneurysm Father Diabetes Heart disease History Items: Diabetes Review of Systems Constitutional: Reports: Anorexia. Denies: Chills, Fever, Night Sweats, Weight Change Eyes: Denies: Blurred vision, Cataracts, Redness HEENT: Denies: Difficulty Swallowing, Head Aches, Hearing Changes, Sinus Congestion, Sinus Drainage Cardiovascular: Denies: Chest Pain, Claudication, Orthopnea, Palpitations, Paroxysmal Noc. Dyspnea Respiratory: Denies: Cough, Shortness of breath at rest, Sputum production Gastrointestinal: Reports: Abdominal Pain, Diarrhea, Dyspepsia, Nausea, Vomiting Genitourinary: Denies: Dysuria Musculoskeletal: Denies: Joint Pain, Joint stiffness, Joint swelling, Joint Tenderness Skin: Denies: Pruritis, Rash, Wounds Neurological: Denies: Numbness, Tingling, Focal weakness Psychiatric: Denies: Anxiety, Depression, Homicidal Ideations, Suicidal Ideations Hematologic/ Lymphatic: Denies: Easy Bruising, Easy Bleeding VTE Information - Inpt Only VTE Present on Admission: No VTE Pharm Prophylaxis ordered?: Yes Patient Problems: Active and Suspected Problems (Last Reviewed 11/08/18 @ 13:43 by Alan Valencia MD) Abdominal pain (Acute) - Physical Exam Vitals/I&O's: Vital Signs Temp Pulse Resp BP Pulse Ox 98 F 101 H 20 H 158/75 H 97 04/15/19 15:34 04/15/19 15:34 04/15/19 15:34 04/15/19 15:34 04/15/19 15:34 Oxygen Delivery Method Room Air Weight: 77.9 kg Body Mass Index (BMI) 35.9 Finger Stick Blood Glucose 101 Intake and Output for Last 24 Hours 04/13/19 04/14/19 04/15/19 23:59 23:59 23:59 Intake Total 110 / 110 Balance 110 / 110 General: Alert, Oriented x3, Cooperative, No apparent distress HEENT: Atraumatic, PERRLA, EOMI, Normocephalic Neck: Supple, No JVD, Negative Carotid Bruits Lungs: Clear to auscultation, Normal air movement Cardiovascular: Regular rate, Regular Rhythm, Normal S1, Normal S2 Abdomen: Bowel Sounds Present, Soft, Non-Distended, Tender - epigastric and RUQ tenderness with guarding but no RBT Extremities: No edema Skin: No rashes Musculoskeletal: No Tenderness to Palpation of Joints or Extremities Lymphatic: No Cervical, Supraclavicular, or Inguinal Adenopathy Neurological: Cranial nerves II-XII grossly intact, Neuro grossly intact Psych/Mental Status: Normal Affect, Appropriate Laboratory Results 04/15/19 16:03: WBC 7.8, RBC 3.91 L, Hgb 12.2, Hct 37.8, MCV 96.7, MCH 31.2, MCHC 32.3, RDW Std Deviation 46.4 H, RDW Coeff of Mihir 12.9, Plt Count 160, MPV 11.7, Immature Gran % (Auto) 0.100, Neut % (Auto) 67.5, Lymph % (Auto) 22.4, [place] % (Auto) 8.8, Eos % (Auto) 0.9, Baso % (Auto) 0.3, Absolute Neuts (auto) 5.3, Absolute Lymphs (auto) 1.74, Nucleated RBC % 0 04/15/19 16:03: Sodium 141, Potassium 3.7, Chloride 106, Carbon Dioxide 28.0, Anion Gap 7, BUN 15, Creatinine 0.82, Estim Creat Clear Calc 68.41, Est GFR (MDRD) Af Amer 86, Est GFR (MDRD) Non-Af 71, BUN/Creatinine Ratio 18.3, Glucose 96, Calcium 8.9, Total Bilirubin 1.10 H, Direct Bilirubin 0.39 H, AST 53 H, ALT 26, Alkaline Phosphatase 82, Troponin I < 0.015, Total Protein 7.0, Albumin 3.0 L, Globulin 4.0, Lipase 4695 H Current Medications Sodium Chloride () 1,000 mls @ 125 mls/hr IV .Q8H STEPHANIE Last Admin: 04/15/19 16:03 Dose: 125 mls/hr Documented by: Assessment/Plan All Active Problems (Last Reviewed 11/08/18 @ 13:43 by Alan Valencia MD) Gallbladder sludge (Acute) Right upper quadrant pain (Acute) Umbilical hernia without obstruction or gangrene (Acute) Abdominal pain (Acute) Decubitus ulcer of left buttock, stage 2 (Acute) Pressure ulcer of right buttock, stage 3 (Acute) Cellulitis of left leg (Resolved) Ulcer (Resolved) Non-pressure chronic ulcer of left calf with fat layer exposed (Resolved) Non-pressure chronic ulcer of left ankle with fat layer exposed (Resolved) 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 (Resolved) 78 year old F with PMHx of hypertension, Type 2 DM, s/p laparosocpic cholecyctecyomy in November 2018 comes in with sudden onset right upper and epigastric discomfort, associated with nausea, vomiting and diarrhea. 1. Possible gallstone pancreatitis with elevated lipase, presence of intrahepatic and extrahepatic duct dilatation s/p lap cholecystectomy, although CT abd/pelvis reported pancreas as normal except for the head of pancreas with small lesion PLan: Admit to Med surg, NPO, IVF, pain control, repeat LFTs, general surgery consult for possible ERCP 2. Hypertension, controlled, will continue to monitor 3. Type 2 DM, diet controlled, will monitor with blood glucose checks and ISS 4. Obesity, BMI 35.3, life style modification recommended 5. DVT PPx- Heparin Sc Code Visit Inpatient E&M: 93533 Init Hosp L3
[2019-04-15 18:06] VITALS: BMI 35.3
[2019-04-15 18:09] VITALS: BMI 35.3
[2019-04-15 18:37] VITALS: BP 138/63; PULSE 76; RESP 18; TEMP 36.6; O2SAT 96
[2019-04-15 23:02] VITALS: BP 114/46; PULSE 69; RESP 18; TEMP 36.5; O2SAT 98
[2019-04-15 23:16] LABS: Bedside Glucose 82 mg/dL (70-110)
[2019-04-16] VITALS (9 sets, daily range): BP systolic 127–163; BP diastolic 55–95; PULSE 60–88; RESP 16–18; TEMP 36.1–36.7; O2SAT 92–98; BMI 35.3
[2019-04-16] MEDS: Dextrose 50%-Water 25 GM/50 ML DISP.SYRIN IV (03:06)
[2019-04-16 03:36] LABS: Bedside Glucose 109 mg/dL (70-110)
[2019-04-16 03:36] LABS: Bedside Glucose 68 mg/dL (70-110)
[2019-04-16 05:49] LABS: Absolute Lymphocyte Count 1.75 X10^3/uL (0.83-4.51); Absolute Neutrophil Count 2.2 X10^3/uL (2.0-7.7); Basophil# 0.02 X10^3/uL; Basophil% 0.4 % (0-1); Eosinophil# 0.12 X10^3/uL; Eosinophils% 2.6 % (0-5); Hematocrit 35.1 % (37-47); Hemoglobin 11.1 g/dL (12.0-15.0); Lymphocyte # 1.75 X10^3/ul (4.0); Lymphocyte % 38.4 % (19-41); Mean Corp Hgb Conc 31.6 g/dL (32-36); Mean Corpuscular Hgb 31.4 pg (27.0-32.0); Mean Corpuscular Volume 99.2 fL (81-99); Mean Platelet Vol. 12.3 fl (6.2-12.0); Monocyte# 0.49 X10^3/uL; Monocyte% 10.7 % (0-10); NRBC Flagged by Analyzer 0 % (0-5); Neutrophil # 2.17 X10^3/uL (2.7-7.7); Neutrophil % 47.7 % (47-70); Platelet Count 139 K/mm3 (150-450); Red Blood Count 3.54 M/mm3 (4.2-5.4); White Blood Count 4.6 K/mm3 (4.4-11.0)
[2019-04-16 06:10] LABS: ALB/GLOB Ratio 0.8 RATIO (0.9-2.4); AST(SGOT) 292 U/L (15-37); Alanine Aminotransfer ALT/SGPT 156 U/L (13-56); Albumin, Serum 2.5 g/dL (3.2-5.0); Alkaline Phosphatase 121 U/L (45-117); Anion Gap 4 (5-15); BUN 11 mg/dL (7-18); BUN/Creat Ratio 16.7 RATIO (10-20); Calcium,Total 8.3 mg/dL (8.5-10.1); Chloride 112 mmol/L (98-107); Creatinine, Serum 0.66 mg/dL (0.55-1.02); EST Glomerular Filtration Rate 92 mL/min (>60); Est Glom Filt Rate - Afr Amer 111 mL/min (>60); Globulin 3.3 g/dL (2.2-4.2); Glucose 82 mg/dL (74-106); Potassium 3.8 mmol/L (3.5-5.1); Protein, Total 5.8 g/dL (6.4-8.2); Sodium Level 141 mmol/L (136-145)
[2019-04-16 06:20] LABS: Bedside Glucose 74 mg/dL (70-110)
--- NOTE | 2019-04-16 07:34 | PN_ITS ---
Patient Problems: Active and Suspected Problems (Last Reviewed 11/08/18 @ 13:43 by Alan Valencia MD) Abdominal pain (Acute) Bile duct obstruction (Acute) Pancreatitis (Acute) Subjective: Follow-up on probable gallstone pancreatitis Patient was seen and examined. Her pain is much improved. Denied any fever or chills. Denied any nausea vomiting or diarrhea. She is going for ERCP today. Objective: Physical exam: General: Alert, Oriented x3, Cooperative, No apparent distress HEENT: Atraumatic, PERRLA, EOMI, Normocephalic Neck: Supple, No JVD, Negative Carotid Bruits Lungs: Clear to auscultation, Normal air movement Cardiovascular: Regular rate, Regular Rhythm, Normal S1, Normal S2 Abdomen: Bowel Sounds Present, Soft, Non-Distended, Tender - epigastric and RUQ tenderness with guarding but no RBT Extremities: No edema Skin: No rashes Musculoskeletal: No Tenderness to Palpation of Joints or Extremities Lymphatic: No Cervical, Supraclavicular, or Inguinal Adenopathy Neurological: Cranial nerves II-XII grossly intact, Neuro grossly intact Psych/Mental Status: Normal Affect, Appropriate Vitals/I&O's: Vital Signs Temp Pulse Resp BP Pulse Ox 97.9 F 60 16 129/57 H 98 04/16/19 05:00 04/16/19 05:00 04/16/19 05:00 04/16/19 05:00 04/16/19 05:00 Oxygen Delivery Method Room Air Weight: 74.1 kg Body Mass Index (BMI) 35.3 Finger Stick Blood Glucose 101 Intake and Output for Last 24 Hours 04/14/19 04/15/19 04/16/19 23:59 23:59 23:59 Intake Total 1082.5 / 1082.5 Balance 1082.5 / 1082.5 Laboratory Results 04/15/19 16:03: WBC 7.8, RBC 3.91 L, Hgb 12.2, Hct 37.8, MCV 96.7, MCH 31.2, MCHC 32.3, RDW Std Deviation 46.4 H, RDW Coeff of Mihir 12.9, Plt Count 160, MPV 11.7, Immature Gran % (Auto) 0.100, Neut % (Auto) 67.5, Lymph % (Auto) 22.4, [place] % (Auto) 8.8, Eos % (Auto) 0.9, Baso % (Auto) 0.3, Absolute Neuts (auto) 5.3, Absolute Lymphs (auto) 1.74, Nucleated RBC % 0 04/15/19 16:03: Sodium 141, Potassium 3.7, Chloride 106, Carbon Dioxide 28.0, Anion Gap 7, BUN 15, Creatinine 0.82, Estim Creat Clear Calc 68.41, Est GFR (MDRD) Af Amer 86, Est GFR (MDRD) Non-Af 71, BUN/Creatinine Ratio 18.3, Glucose 96, Calcium 8.9, Total Bilirubin 1.10 H, Direct Bilirubin 0.39 H, AST 53 H, ALT 26, Alkaline Phosphatase 82, Troponin I < 0.015, Total Protein 7.0, Albumin 3.0 L, Globulin 4.0, Lipase 4695 H 04/15/19 22:59: POC Glucose 82 04/16/19 02:58: POC Glucose 68 L 04/16/19 03:32: POC Glucose 109 04/16/19 05:05: WBC 4.6, RBC 3.54 L, Hgb 11.1 L, Hct 35.1 L, MCV 99.2 H, MCH 31.4, MCHC 31.6 L, RDW Std Deviation 47.0 H, RDW Coeff of Mihir 13.0, Plt Count 139 L, MPV 12.3 H, Immature Gran % (Auto) 0.200, Neut % (Auto) 47.7, Lymph % (Auto) 38.4, [place] % (Auto) 10.7 H, Eos % (Auto) 2.6, Baso % (Auto) 0.4, Absolute Neuts (auto) 2.2, Absolute Lymphs (auto) 1.75, Nucleated RBC % 0 04/16/19 05:05: Sodium 141, Potassium 3.8, Chloride 112 H, Carbon Dioxide 25.0, Anion Gap 4 L, BUN 11, Creatinine 0.66, Estim Creat Clear Calc 55.20, Est GFR (MDRD) Af Amer 111, Est GFR (MDRD) Non-Af 92, BUN/Creatinine Ratio 16.7, Glucose 82, Calcium 8.3 L, Total Bilirubin 1.50 H, AST 292 H, ALT 156 H, Alkaline Phosphatase 121 H, Total Protein 5.8 L, Albumin 2.5 L, Globulin 3.3, Albumin/Globulin Ratio 0.8 L 04/16/19 06:15: POC Glucose 74 Current Medications Acetaminophen (Tylenol) 650 mg PO Q6H PRN PRN PRN Reason: Pain Score 1-3/Temp > 100.7 F Dextrose (D50w Syringe) 0 gm IV X1 PRN; Protocol PRN Reason: Hypoglycemia Last Admin: 04/16/19 03:06 Dose: 12.5 gm Documented by: Glucagon () 1 mg IM .X1 PRN PRN Reason: Hypoglycemia Heparin Sodium (Porcine) (Heparin Na) 5,000 unit SC Q8 STEPH[facility]IE Last Admin: 04/16/19 05:18 Dose: Not Given Documented by: Sodium Chloride () 1,000 mls @ 125 mls/hr IV .Q8H [facility] Last Infusion: 04/15/19 23:17 Dose: 125 mls/hr Documented by: Pantoprazole Sodium 40 mg/ (Sodium Chloride) 110 mls @ 330 mls/hr IV Q12 [facility] Last Infusion: 04/15/19 23:17 Dose: Infused Documented by: Insulin Human Lispro (Humalog Kwikpen (Bkc)) 0 unit SC Q6 [facility]; Protocol Last Admin: 04/16/19 06:20 Dose: Not Given Documented by: Melatonin (Melatonin) 3 mg PO QHS PRN PRN PRN Reason: INSOMNIA Morphine Sulfate () 2 mg IV Q3H PRN PRN PRN Reason: Pain Score 6-10/10 Ondansetron HCl (Zofran) 4 mg IV Q8H PRN PRN PRN Reason: NAUSEA/VOMITING Sodium Chloride () 10 - 40 ml IV UD PRN PRN Reason: SALINE FLUSH STROKE Vital Signs/Narrative: Vital Signs Temp Pulse Resp BP Pulse Ox 04/16/19 05:00 97.9 F 60 16 129/57 H 98 Medical Necessity - Tobacco Use Smoking Status: Never smoker Tobacco Use: Non-smoker Assessment/Plan All Active Problems (Last Reviewed 11/08/18 @ 13:43 by Alan Valencia MD) Gallbladder sludge (Acute) Right upper quadrant pain (Acute) Umbilical hernia without obstruction or gangrene (Acute) Abdominal pain (Acute) Bile duct obstruction (Acute) Pancreatitis (Acute) Decubitus ulcer of left buttock, stage 2 (Acute) Pressure ulcer of right buttock, stage 3 (Acute) Cellulitis of left leg (Resolved) Ulcer (Resolved) Non-pressure chronic ulcer of left calf with fat layer exposed (Resolved) Non-pressure chronic ulcer of left ankle with fat layer exposed (Resolved) 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 (Resolved) 78 year old F with PMHx of hypertension, Type 2 DM, s/p laparosocpic cholecyctecyomy in November 2018 comes in with sudden onset right upper and epigastric discomfort, associated with nausea, vomiting and diarrhea. 1. Probable gallstone pancreatitis with elevated lipase, presence of intrahepatic and extrahepatic duct dilatation s/p lap cholecystectomy, although CT abd/pelvis reported pancreas as normal except for the head of pancreas with small lesion Pain is fairly controlled. General surgery consulted, patient going for ERCP Continue with IV fluids, pain control, repeat LFTs in am, general surgery consult for possible ERCP 2. Hypertension, controlled, will continue to monitor 3. Type 2 DM, diet controlled, will monitor with blood glucose checks and ISS 4. Obesity, BMI 35.3, life style modification recommended 5. DVT PPx- Heparin Sc Code Visit Inpatient E&M: 40000 Subs Hosp L2
[2019-04-16] MEDS: 0.9% Normal Saline 1,000 ML 125 ML IV ×2 (07:40→17:48)
--- NOTE | 2019-04-16 07:43 | CON.PCM_ITS ---
Problem List (1) Bile duct obstruction Status: Acute (2) Pancreatitis Status: Acute Qualifiers: Chronicity: acute Pancreatitis type: biliary Acute pancreatitis complication: unspecified Qualified Code(s): K85.10 - Biliary acute pancreatitis without necrosis or infection Reason for Consult Date of Consultation: 04/16/19 History of Present Illness: The patient is a 78 year old F who presented to the hospital with epigastric pain yesterday. She had her gallbladder taken out 6 months ago and ever since she has had intermittent right upper quadrant pain. She reports that yesterday it became very severe all the sudden and it was in the epigastric region. She said it felt like somebody was tightening a rope around her. She did have nausea as well. 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) Positional vertigo (Chronic) Obesity (Chronic) Hx of venous thrombosis and embolism (Chronic) history of cellulitis of leg (Chronic) Leg swelling (Chronic) Hyperpigmentation of skin (Chronic) Lipodermatosclerosis (Chronic) 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) Localized edema (Chronic) 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) Generalized weakness (Chronic) Chronic venous hypertension (idiopathic) with ulcer of left lower 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) Type 2 diabetes mellitus (Chronic) Medical History: Medical History (Last Reviewed 11/08/18 @ 13:43 by Alan Valencia MD) Type 2 diabetes mellitus (Chronic) E11.9 Pure hypercholesterolemia (Chronic) E78.00 Essential hypertension (Chronic) I10 GERD (gastroesophageal reflux disease) (Chronic) K21.9 Osteoarthritis (Chronic) M19.90 Edema of both legs (Chronic) R60.0 Hiatal hernia (Chronic) K44.9 Venous stasis ulcer (Chronic) I83.009, L97.909 Decubitus ulcer of left buttock, stage 2 (Acute) L89.322 Pressure ulcer of right buttock, stage 3 (Acute) L89.313 Abnormal exercise myocardial perfusion study (Chronic) R94.39 Palpitations (Chronic) R00.2 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) I25.10 Mild Cellulitis of left leg (Resolved) L03.116 Failure to thrive (Chronic) [id number] Positional vertigo (Chronic) H81.10 Ulcer (Resolved) L98.499 Obesity (Chronic) E66.9 Hx of venous thrombosis and embolism (Chronic) Z86.718 history of cellulitis of leg (Chronic) Leg swelling (Chronic) M79.89 Hyperpigmentation of skin (Chronic) L81.9 Lipodermatosclerosis (Chronic) I83.10 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) I87.093 Chronic venous hypertension (idiopathic) with inflammation of bilateral lower extremity (Chronic) I87.323 Localized edema (Chronic) R60.0 Non-pressure chronic ulcer of left calf with fat layer exposed (Resolved) L97.222 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) E11.59 Generalized weakness (Chronic) R53.1 Chronic venous hypertension (idiopathic) with ulcer of left lower extremity (Chronic) I87.312 Chronic venous stasis dermatitis (Chronic) I87.2 Non-pressure chronic ulcer of left ankle with fat layer exposed (Resolved) L97 .322 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 (Resolved) I70.249 Abdominal pain R10.9 Nausea R11.0 Sludge in gallbladder K82.8 Heel spur M77.30 Diabetes (Inactive) E11.9 Hypertension (Inactive) I10 Allergies ezetimibe [From Zetia] Allergy (Verified 04/15/19 18:05) Itching lisinopril Allergy (Verified 04/15/19 18:05) Other cough neomycin [Neomycin] Allergy (Verified 04/15/19 15:34) Unknown neomycin sulfate [From Neosporin ([id number])] Allergy (Verified 04/15/19 15:34) Itching polymyxin B [Polymyxin B] Allergy (Verified 04/15/19 15:34) Unknown Sulfa (Sulfonamide Antibiotics) Allergy (Verified 04/15/19 15:34) Unknown tetracycline [Tetracycline] Allergy (Verified 04/15/19 15:34) Itching adhesive tape Adverse Reaction (Severe, Verified 04/15/19 15:34) Unknown atorvastatin calcium [From Lipitor] Adverse Reaction (Verified 04/15/19 18:10) Pain in joints Home Medications: Ambulatory Orders Medication Instructions Recorded Famotidine [Pepcid] 20 mg PO BID 01/15/17 Irbesartan [Avapro] 75 mg PO DAILY 01/15/17 Meclizine HCl [Antivert] 25 mg PO TID PRN PRN 01/15/17 Pentoxifylline [Trental] 400 mg PO BID 01/15/17 Potassium Chloride [K-Dur] 10 meq PO DAILY PRN 01/15/17 cyanocobalamin (vit B-12) 1,000 1,000 mcg PO DAILY 09/21/17 mcg/mL oral drops pravastatin 80 mg tablet 40 mg PO MOWE tab 09/10/18 torsemide 20 mg tablet 20 mg PO DAILY PRN 09/10/18 Horse Starbuck Seed [Horse 300 mg PO DAILY 11/16/18 Starbuck] Cholecalciferol (Vitamin D3) 2,000 unit PO DAILY 04/15/19 [Vitamin D3] Surgical History: Surgical History (Last Reviewed 11/08/18 @ 13:43 by Alan Valencia MD) Rectal fistula (Chronic) K60.4 1961 History of left heart catheterization Z98.890 history excision heel spur right foot H/O dilation and curettage Z98.890 History of cataract surgery Z98.49 History of tubal ligation Z98.51 Lipoma D17.9 removed from Rt hip Surgical History: - - 2009 had colonoscopy 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 the 1960s 1979 fatty tumor tubal ligation 3 d&c spir removed. The patient und erwent excision of a right hip lipoma in the past. Patient is a Ab0. 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 Lives: Alone Smoking Status: Never smoker Tobacco Use: Non-smoker Alcohol: None Drugs: None - *Family History Maternal Family History: Family History (Last Reviewed 11/08/18 @ 13:43 by Alan Valencia MD) Mother CAD (coronary artery disease) Myocardial infarction Son Hypertension Brother Aortic aneurysm Father Diabetes Heart disease History Items: Heart Disease, - Paternal Family History: Family History (Last Reviewed 11/08/18 @ 13:43 by Alan Valencia MD) Mother CAD (coronary artery disease) Myocardial infarction Son Hypertension Brother Aortic aneurysm Father Diabetes Heart disease History Items: Diabetes Review of Systems Constitutional: Denies: Anorexia, Fever Eyes: Denies: Blurred vision Cardiovascular: Denies: Chest Pain Respiratory: Denies: Cough, Shortness of Breath Gastrointestinal: Reports: Abdominal Pain, Diarrhea, Nausea. Denies: Constipation, Hematemesis, Hematochezia, Vomiting Genitourinary: Denies: Dysuria Musculoskeletal: Denies: Joint Tenderness Skin: Denies: Lesions Neurological: Denies: Balance problems Hematologic/ Lymphatic: Denies: Anemia Patient Problems: Active and Suspected Problems (Last Reviewed 11/08/18 @ 13:43 by Alan Valencia MD) Abdominal pain (Acute) Bile duct obstruction (Acute) Pancreatitis (Acute) - Physical Exam Vitals/I&O's: Vital Signs Temp Pulse Resp BP Pulse Ox 97.9 F 60 16 129/57 H 98 04/16/19 05:00 04/16/19 05:00 04/16/19 05:00 04/16/19 05:00 04/16/19 05:00 Oxygen Delivery Method Room Air Weight: 163 lb 5.8 oz Body Mass Index (BMI) 35.3 Finger Stick Blood Glucose 101 Intake and Output for Last 24 Hours 04/14/19 04/15/19 04/16/19 23:59 23:59 23:59 Intake Total 1082.5 / 1082.5 1000 / 1000 Balance 1082.5 / 1082.5 1000 / 1000 General: Alert, Oriented x3, No apparent distress HEENT: Atraumatic Neck: No JVD Lungs: Normal air movement Cardiovascular: Regular rate, Regular Rhythm Abdomen: Soft, Non-Distended, Tender - Mild tenderness in the epigastric region Psych/Mental Status: Normal Affect Laboratory Results 04/15/19 16:03: WBC 7.8, RBC 3.91 L, Hgb 12.2, Hct 37.8, MCV 96.7, MCH 31.2, MCHC 32.3, RDW Std Deviation 46.4 H, RDW Coeff of Mihir 12.9, Plt Count 160, MPV 11.7, Immature Gran % (Auto) 0.100, Neut % (Auto) 67.5, Lymph % (Auto) 22.4, [place] % (Auto) 8.8, Eos % (Auto) 0.9, Baso % (Auto) 0.3, Absolute Neuts (auto) 5.3, Absolute Lymphs (auto) 1.74, Nucleated RBC % 0 04/15/19 16:03: Sodium 141, Potassium 3.7, Chloride 106, Carbon Dioxide 28.0, Anion Gap 7, BUN 15, Creatinine 0.82, Estim Creat Clear Calc 68.41, Est GFR (MDRD) Af Amer 86, Est GFR (MDRD) Non-Af 71, BUN/Creatinine Ratio 18.3, Glucose 96, Calcium 8.9, Total Bilirubin 1.10 H, Direct Bilirubin 0.39 H, AST 53 H, ALT 26, Alkaline Phosphatase 82, Troponin I < 0.015, Total Protein 7.0, Albumin 3.0 L, Globulin 4.0, Lipase 4695 H 04/15/19 22:59: POC Glucose 82 04/16/19 02:58: POC Glucose 68 L 04/16/19 03:32: POC Glucose 109 04/16/19 05:05: WBC 4.6, RBC 3.54 L, Hgb 11.1 L, Hct 35.1 L, MCV 99.2 H, MCH 31.4, MCHC 31.6 L, RDW Std Deviation 47.0 H, RDW Coeff of Mihir 13.0, Plt Count 139 L, MPV 12.3 H, Immature Gran % (Auto) 0.200, Neut % (Auto) 47.7, Lymph % (Auto) 38.4, [place] % (Auto) 10.7 H, Eos % (Auto) 2.6, Baso % (Auto) 0.4, Absolute Neuts (auto) 2.2, Absolute Lymphs (auto) 1.75, Nucleated RBC % 0 04/16/19 05:05: Sodium 141, Potassium 3.8, Chloride 112 H, Carbon Dioxide 25.0, Anion Gap 4 L, BUN 11, Creatinine 0.66, Estim Creat Clear Calc 55.20, Est GFR (MDRD) Af Amer 111, Est GFR (MDRD) Non-Af 92, BUN/Creatinine Ratio 16.7, Glucose 82, Calcium 8.3 L, Total Bilirubin 1.50 H, AST 292 H, ALT 156 H, Alkaline Phosphatase 121 H, Total Protein 5.8 L, Albumin 2.5 L, Globulin 3.3, Albumin/Globulin Ratio 0.8 L 04/16/19 06:15: POC Glucose 74 Clinical Impression(s) from Imaging Studies Abdomen/Pelvis CT 04/15/19 16:59 IMPRESSION: 1. Intrahepatic and extrahepatic biliary dilation without distinct obstructing lesion. A small lesion in the pancreatic head/ampulla below the resolution of CT is in the differential diagnosis, refer to further investigation/imaging. Electronically Signed: Renee Arambula, at 17:51 EST Tel , Service support , Current Medications Acetaminophen (Tylenol) 650 mg PO Q6H PRN PRN PRN Reason: Pain Score 1-3/Temp > 100.7 F Dextrose (D50w Syringe) 0 gm IV X1 PRN; Protocol PRN Reason: Hypoglycemia Last Admin: 04/16/19 03:06 Dose: 12.5 gm Documented by: Glucagon () 1 mg IM .X1 PRN PRN Reason: Hypoglycemia Heparin Sodium (Porcine) (Heparin Na) 5,000 unit SC Q8 [facility] Last Admin: 04/16/19 07:39 Dose: Not Given Documented by: Sodium Chloride () 1,000 mls @ 125 mls/hr IV .Q8H [facility] Last Admin: 04/16/19 07:40 Dose: 125 mls/hr Documented by: Pantoprazole Sodium 40 mg/ (Sodium Chloride) 110 mls @ 330 mls/hr IV Q12 [facility] Last Infusion: 04/15/19 23:17 Dose: Infused Documented by: Insulin Human Lispro (Humalog Kwikpen (Bkc)) 0 unit SC Q6 STEPHANIE; Protocol Last Admin: 04/16/19 06:20 Dose: Not Given Documented by: Melatonin (Melatonin) 3 mg PO QHS PRN PRN PRN Reason: INSOMNIA Morphine Sulfate () 2 mg IV Q3H PRN PRN PRN Reason: Pain Score 6-10/10 Ondansetron HCl (Zofran) 4 mg IV Q8H PRN PRN PRN Reason: NAUSEA/VOMITING Sodium Chloride () 10 - 40 ml IV UD PRN PRN Reason: SALINE FLUSH Assessment/Plan All Active Problems (Last Reviewed 11/08/18 @ 13:43 by Alan Valencia MD) Gallbladder sludge (Acute) Right upper quadrant pain (Acute) Umbilical hernia without obstruction or gangrene (Acute) Abdominal pain (Acute) Bile duct obstruction (Acute) Pancreatitis (Acute) Decubitus ulcer of left buttock, stage 2 (Acute) Pressure ulcer of right buttock, stage 3 (Acute) Cellulitis of left leg (Resolved) Ulcer (Resolved) Non-pressure chronic ulcer of left calf with fat layer exposed (Resolved) Non-pressure chronic ulcer of left ankle with fat layer exposed (Resolved) 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 (Resolved) 78-year-old female with likely gallstone pancreatitis 1. The patient had a lipase level of almost 5000 yesterday. She described ep igastric pain which has now resolved. She said there is still some tenderness in the right upper quadrant and epigastric region. She had a cholecystectomy [address] scan showed dilation of the intra-and extrahepatic biliary ducts. Likely there is sludge or stones in her common bile duct which is causing the intermittent pain and caused her pancreatitis. I recommend ERCP to clear the duct and investigate for any mass in the duct which could be causing this. 2. I describe ERCP in detail with the patient including the risks. I described the risks including but not limited to bleeding, infection, perforation of the bile duct or bowel, pancreatitis, heart attack or stroke. The patient understands risks and is willing to proceed with ERCP. I also discussed the possibility of having to place a biliary or pancreatic stent and subsequent need for removal. Spencer Estevez MD Pager: [facility] [address] [place] [address], [address] [place] [address] Office:
[2019-04-16 07:59] LABS: Bilirubin, Direct 0.61 mg/dL (0.00-0.30); Lipase 2158 U/L (73-393)
--- NOTE | 2019-04-16 11:35 | CASEMGMT ---
RN CM attempted to complete assessment at this time. Patient is currently at ERCP. CM will attempted assessment at later time.
[2019-04-16 12:20] LABS: Bedside Glucose 68 mg/dL (70-110)
--- NOTE | 2019-04-16 15:30 | RAD_ITS ---
CLINICAL HISTORY: Female, 78 years old. Jaundice. Pancreatitis. PROCEDURE: CHOLANGIOGRAM - ERCP TECHNIQUE: A single procedural imaging was presented for interpretation. COMPARISON: CT of the abdomen and pelvis, April 15, 2019. FINDINGS: Study demonstrates an endoscope in the duodenum. There is a wire extending into the CBD. There is contrast in the intrahepatic ducts which are normal diameter without filling defect. Contrast is also seen in the pancreatic duct which appears unremarkable. The CBD is not opacified. Please refer to the procedural report for further details. RAD/ERCP Biliary Only IMPRESSION: ERCP in the OR. Electronically Signed: Reji Mcneal DO at 21:30 EST Tel [phone], Service support ,
[2019-04-16 16:25] LABS: Bedside Glucose 80 mg/dL (70-110)
--- NOTE | 2019-04-16 16:28 | OP.ERCP_ITS ---
Patient Name: Rebeca Soares Procedure Date: 04/16/2019 11:51 AM Date of : 1940 Age: 78 Procedure: ERCP Indications: Suspected bile duct stone(s) Providers: Spencer Estevez MD Medicines: General Anesthesia Patient Profile: This is a 78 year old female. Refer to note in patient chart for documentation of history and physical. Complications: No immediate complications. Estimated blood loss: Minimal. Procedure: Pre-Anesthesia Assessment: - Prior to the procedure, a History and Physical was performed, and patient medications and allergies were reviewed. The patient's tolerance of previous anesthesia was also reviewed. The risks and benefits of the procedure and the sedation options and risks were discussed with the patient. All questions were answered, and informed consent was obtained. Prior Anticoagulants: The patient has taken no previous 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 or antiplatelet agents. After reviewing the risks and benefits, the patient was deemed in satisfactory condition to undergo the procedure. After obtaining informed consent, the scope was passed under direct vision. Throughout the procedure, the patient's blood pressure, pulse, and oxygen saturations were monitored continuously. The [id number] endoscope was introduced through the mouth, and advanced to the duodenum and used to inject contrast into the bile duct. The ERCP was accomplished without difficulty. The patient tolerated the procedure well. Scope In: 3:32:13 PM Scope Out: 3:39:55 PM Total Procedure Duration Time 0 hours 7 minutes 42 seconds Findings: The major papilla was normal. A 0.035 inch x 260 cm straight Dreamwire was passed into the biliary tree. The sphincterotome was passed over the guidewire and the bile duct was then deeply cannulated. Contrast was injected. The entire biliary tree was dilated. Biliary sphincterotomy was made with a monofilament sphincterotome using ERBE electrocautery. There was no post-sphincterotomy bleeding. To discover objects, the biliary tree was swept with a 12 mm balloon starting at the bifurcation. Debris was swept from the duct. Impression: - The major papilla appeared normal. - The entire biliary tree was dilated. - A biliary sphincterotomy was performed. - The biliary tree was swept and debris was found. Recommendation: - Return patient to [facility] for ongoing care. - NPO. Procedure Code(s): --- Professional --- 58020, Endoscopic retrograde cholangiopancreatography (ERCP); with removal of calculi/debris from biliary/pancreatic duct(s) Diagnosis Code(s): --- Professional --- K83.8, Other specified diseases of biliary tract CPT copyright 2017 [employer]. All rights reserved. 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 Spencer Estevez MD 04/16/2019 4:28:15 PM This report has been signed electronically. Number of Addenda: 0 Note Initiated On: 04/16/2019 11:51 AM
[2019-04-16] MEDS: Lactated Ringers 1,000 ML 100 ML IV (16:36)
[2019-04-16 17:56] LABS: Bedside Glucose 88 mg/dL (70-110)
[2019-04-17] MEDS: 0.9% Normal Saline 1,000 ML 125 ML IV (00:41)
[2019-04-17 00:46] LABS: Bedside Glucose 123 mg/dL (70-110)
[2019-04-17 02:21] VITALS: BP 123/57; PULSE 63; RESP 18; TEMP 36.4; O2SAT 95
[2019-04-17 05:22] LABS: Absolute Lymphocyte Count 0.82 X10^3/uL (0.83-4.51); Absolute Neutrophil Count 5.2 X10^3/uL (2.0-7.7); Hematocrit 35.5 % (37-47); Hemoglobin 11.2 g/dL (12.0-15.0); Lymphocyte # 0.82 X10^3/ul (4.0); Lymphocyte % 13.4 % (19-41); Mean Corp Hgb Conc 31.5 g/dL (32-36); Mean Corpuscular Hgb 31.2 pg (27.0-32.0); Mean Corpuscular Volume 98.9 fL (81-99); Mean Platelet Vol. 12.5 fl (6.2-12.0); Monocyte# 0.12 X10^3/uL; NRBC Flagged by Analyzer 0 % (0-5); Neutrophil # 5.15 X10^3/uL (2.7-7.7); Neutrophil % 84.3 % (47-70); Platelet Count 134 K/mm3 (150-450); RBC Distribution Width CV 12.9 % (11.6-14.6); RBC Distribution Width SD 47.1 fl (35.1-43.9); Red Blood Count 3.59 M/mm3 (4.2-5.4); White Blood Count 6.1 K/mm3 (4.4-11.0)
[2019-04-17 05:46] LABS: ALB/GLOB Ratio 0.7 RATIO (0.9-2.4); AST(SGOT) 102 U/L (15-37); Alanine Aminotransfer ALT/SGPT 106 U/L (13-56); Albumin, Serum 2.6 g/dL (3.2-5.0); Alkaline Phosphatase 113 U/L (45-117); Anion Gap 7 (5-15); BUN 9 mg/dL (7-18); BUN/Creat Ratio 11.8 RATIO (10-20); Chloride 111 mmol/L (98-107); Creatinine, Serum 0.76 mg/dL (0.55-1.02); EST Glomerular Filtration Rate 78 mL/min (>60); Est Glom Filt Rate - Afr Amer 94 mL/min (>60); Estimated Creatinine Clearance 53.36 ml/min; Globulin 3.6 g/dL (2.2-4.2); Glucose 169 mg/dL (74-106); Lipase 1860 U/L (73-393); Protein, Total 6.2 g/dL (6.4-8.2); Sodium Level 142 mmol/L (136-145)
[2019-04-17] MEDS: Insulin Lispro 100 UNIT/ML INSULN.PEN SC ×2 (06:51→11:27)
[2019-04-17 07:00] LABS: Bedside Glucose 156 mg/dL (70-110)
--- NOTE | 2019-04-17 07:28 | PN_ITS ---
Patient Problems: Active and Suspected Problems (Last Reviewed 11/08/18 @ 13:43 by Alan Valencia MD) Abdominal pain (Acute) Bile duct obstruction (Acute) Pancreatitis (Acute) Subjective: Patient was seen and examined. Denied any new complaints. Denied any shortness of breath, chest pain. I personally examined patient's left buttck and saw the stage I pressure ulcers. Wound RN consulted for wound care recommendations. I recommended to patient to follow-up with the wound care center. Objective: Physical exam: General: Alert, Oriented x3, Cooperative, No apparent distress HEENT: Atraumatic, PERRLA, EOMI, Normocephalic Neck: Supple, No JVD, Negative Carotid Bruits Lungs: Clear to auscultation, Normal air movement Cardiovascular: Regular rate, Regular Rhythm, Normal S1, Normal S2 Abdomen: Bowel Sounds Present, Soft, Non-Distended, Tender - epigastric and RUQ tenderness with guarding but no RBT Extremities: No edema Skin: No rashes, 2 small left buttocks stage 1 pressure ulcers Musculoskeletal: No Tenderness to Palpation of Joints or Extremities Lymphatic: No Cervical, Supraclavicular, or Inguinal Adenopathy Neurological: Cranial nerves II-XII grossly intact, Neuro grossly intact Psych/Mental Status: Normal Affect, Appropriate Vitals/I&O's: Vital Signs Temp Pulse Resp BP Pulse Ox 97.6 F L 63 18 123/57 H 95 04/17/19 02:21 04/17/19 02:21 04/17/19 02:21 04/17/19 02:21 04/17/19 02:21 Oxygen Delivery Method Room Air Weight: 78.925 kg Body Mass Index (BMI) 35.3 Finger Stick Blood Glucose 80 Intake and Output for Last 24 Hours 04/15/19 04/16/19 04/17/19 23:59 23:59 23:59 Intake Total 1082.5 / 1082.5 2568.33 / 3368.33 2060.42 / 2060.42 Output Total 750 / 750 Balance 1082.5 / 1082.5 2568.33 / 2968.33 1310.42 / 1310.42 Laboratory Results 04/16/19 05:05: Direct Bilirubin 0.61 H, Lipase 2158 H 04/16/19 12:15: POC Glucose 68 L 04/16/19 16:15: POC Glucose 80 04/16/19 17:46: POC Glucose 88 04/17/19 00:39: POC Glucose 123 H 04/17/19 04:52: WBC 6.1, RBC 3.59 L, Hgb 11.2 L, Hct 35.5 L, MCV 98.9, MCH 31.2, MCHC 31.5 L, RDW Std Deviation 47.1 H, RDW Coeff of Mihir 12.9, Plt Count 134 L, MPV 12.5 H, Immature Gran % (Auto) 0.300, Neut % (Auto) 84.3 H, Lymph % (Auto) 13.4 L, [place] % (Auto) 2.0, Eos % (Auto) 0.0, Baso % (Auto) 0.0, Absolute Neuts (auto) 5.2, Absolute Lymphs (auto) 0.82 L, Nucleated RBC % 0 04/17/19 04:52: Sodium 142, Potassium 4.0, Chloride 111 H, Carbon Dioxide 24.0, Anion Gap 7, BUN 9, Creatinine 0.76, Estim Creat Clear Calc 53.36, Est GFR (MDRD) Af Amer 94, Est GFR (MDRD) Non-Af 78, BUN/Creatinine Ratio 11.8, Glucose 169 H, Calcium 8.0 L, Total Bilirubin 0.60, AST 102 H, ALT 106 H, Alkaline Phosphatase 113, Total Protein 6.2 L, Albumin 2.6 L, Globulin 3.6, Albumin/Globulin Ratio 0.7 L, Lipase 1860 H 04/17/19 06:43: POC Glucose 156 H Current Medications Acetaminophen (Tylenol) 650 mg PO Q6H PRN PRN PRN Reason: Pain Score 1-3/Temp > 100.7 F Dextrose (D50w Syringe) 0 gm IV X1 PRN; Protocol PRN Reason: Hypoglycemia Last Admin: 04/16/19 03:06 Dose: 12.5 gm Documented by: Glucagon () 1 mg IM .X1 PRN PRN Reason: Hypoglycemia Heparin Sodium (Porcine) (Heparin Na) 5,000 unit SC Q8 [facility] Last Admin: 04/17/19 06:22 Dose: Not Given Documented by: Pantoprazole Sodium 40 mg/ (Sodium Chloride) 110 mls @ 330 mls/hr IV Q12 [facility] Last Infusion: 04/16/19 22:10 Dose: Infused Documented by: Insulin Human Lispro (Humalog Kwikpen (Bkc)) 0 unit SC ACHS [facility]; Protocol Last Admin: 04/17/19 06:51 Dose: 1 u Documented by: Melatonin (Melatonin) 3 mg PO QHS PRN PRN PRN Reason: INSOMNIA Morphine Sulfate () 2 mg IV Q3H PRN PRN PRN Reason: Pain Score 6-10/10 Ondansetron HCl (Zofran) 4 mg IV Q8H PRN PRN PRN Reason: NAUSEA/VOMITING Sodium Chloride () 10 - 40 ml IV UD PRN PRN Reason: SALINE FLUSH Medical Necessity - Tobacco Use Smoking Status: Never smoker Tobacco Use: Non-smoker Assessment/Plan All Active Problems (Last Reviewed 11/08/18 @ 13:43 by Alan Valencia MD) Gallbladder sludge (Acute) Right upper quadrant pain (Acute) Umbilical hernia without obstruction or gangrene (Acute) Abdominal pain (Acute) Bile duct obstruction (Acute) Pancreatitis (Acute) Decubitus ulcer of left buttock, stage 2 (Acute) Pressure ulcer of right buttock, stage 3 (Acute) Cellulitis of left leg (Resolved) Ulcer (Resolved) Non-pressure chronic ulcer of left calf with fat layer exposed (Resolved) Non-pressure chronic ulcer of left ankle with fat layer exposed (Resolved) 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 (Resolved) 78 year old F with PMHx of hypertension, Type 2 DM, s/p laparosocpic c holecyctecyomy in November 2018 comes in with sudden onset right upper and epigastric discomfort, associated with nausea, vomiting and diarrhea. 1. Gallstone pancreatitis s/p ERCP, status post sphincterectomy. Intra-procedure findings included dissection of the extra and intrahepatic ducts, debris in the biliary tree. Patient is improved. Able to tolerate a diet. Liver function test shows improvement 2. Hypertension, controlled, will continue to monitor 3. Type 2 DM, diet controlled, will monitor with blood glucose checks and ISS 4. Obesity, BMI 35.3, life style modification recommended 5. DVT PPx- Heparin Sc Code Visit Inpatient E&M: 33146 Subs Hosp L2
--- NOTE | 2019-04-17 08:16 | PCM.PN.SRG ---
Patient Problems: Active and Suspected Problems (Last Reviewed 11/08/18 @ 13:43 by Alan Valencia MD) Abdominal pain (Acute) Bile duct obstruction (Acute) Pancreatitis (Acute) Subjective: Patient is doing well and tolerating clear liquids. She is passing urine and having no nausea or vomiting. She reports that her epigastric pain is very minimal. - Physical Exam Vitals/I&O's: Vital Signs Temp Pulse Resp BP Pulse Ox 97.6 F L 63 18 123/57 H 95 04/17/19 02:21 04/17/19 02:21 04/17/19 02:21 04/17/19 02:21 04/17/19 02:21 Oxygen Delivery Method Room Air Weight: 174 lb Body Mass Index (BMI) 35.3 Finger Stick Blood Glucose 80 Intake and Output for Last 24 Hours 04/15/19 04/16/19 04/17/19 23:59 23:59 23:59 Intake Total 1082.5 / 1082.5 2568.33 / 3368.33 2910.42 / 2910.42 Output Total 750 / 750 Balance 1082.5 / 1082.5 2568.33 / 2968.33 2160.42 / 2160.42 General: Alert, Oriented x3 Lungs: Normal air movement Cardiovascular: Regular rate, Regular Rhythm Abdomen: Soft, Non Tender, Non-Distended Laboratory Results 04/16/19 12:15: POC Glucose 68 L 04/16/19 16:15: POC Glucose 80 04/16/19 17:46: POC Glucose 88 04/17/19 00:39: POC Glucose 123 H 04/17/19 04:52: WBC 6.1, RBC 3.59 L, Hgb 11.2 L, Hct 35.5 L, MCV 98.9, MCH 31.2, MCHC 31.5 L, RDW Std Deviation 47.1 H, RDW Coeff of Mihir 12.9, Plt Count 134 L, MPV 12.5 H, Immature Gran % (Auto) 0.300, Neut % (Auto) 84.3 H, Lymph % (Auto) 13.4 L, [place] % (Auto) 2.0, Eos % (Auto) 0.0, Baso % (Auto) 0.0, Absolute Neuts (auto) 5.2, Absolute Lymphs (auto) 0.82 L, Nucleated RBC % 0 04/17/19 04:52: Sodium 142, Potassium 4.0, Chloride 111 H, Carbon Dioxide 24.0, Anion Gap 7, BUN 9, Creatinine 0.76, Estim Creat Clear Calc 53.36, Est GFR (MDRD) Af Amer 94, Est GFR (MDRD) Non-Af 78, BUN/Creatinine Ratio 11.8, Glucose 169 H, Calcium 8.0 L, Total Bilirubin 0.60, AST 102 H, ALT 106 H, Alkaline Phosphatase 113, Total Protein 6.2 L, Albumin 2.6 L, Globulin 3.6, Albumin/Globulin Ratio 0.7 L, Lipase 1860 H 04/17/19 06:43: POC Glucose 156 H Current Medications Acetaminophen (Tylenol) 650 mg PO Q6H PRN PRN PRN Reason: Pain Score 1-3/Temp > 100.7 F Dextrose (D50w Syringe) 0 gm IV X1 PRN; Protocol PRN Reason: Hypoglycemia Last Admin: 04/16/19 03:06 Dose: 12.5 gm Documented by: Glucagon () 1 mg IM .X1 PRN PRN Reason: Hypoglycemia Heparin Sodium (Porcine) (Heparin Na) 5,000 unit SC Q8 [facility] Last Admin: 04/17/19 06:22 Dose: Not Given Documented by: Pantoprazole Sodium 40 mg/ (Sodium Chloride) 110 mls @ 330 mls/hr IV Q12 [facility] Last Infusion: 04/16/19 22:10 Dose: Infused Documented by: Insulin Human Lispro (Humalog Kwikpen (Bkc)) 0 unit SC ACHS [facility]; Protocol Last Admin: 04/17/19 06:51 Dose: 1 u Documented by: Melatonin (Melatonin) 3 mg PO QHS PRN PRN PRN Reason: INSOMNIA Morphine Sulfate () 2 mg IV Q3H PRN PRN PRN Reason: Pain Score 6-10/10 Ondansetron HCl (Zofran) 4 mg IV Q8H PRN PRN PRN Reason: NAUSEA/VOMITING Sodium Chloride () 10 - 40 ml IV UD PRN PRN Reason: SALINE FLUSH Medical Necessity - Tobacco Use Smoking Status: Never smoker Tobacco Use: Non-smoker Assessment/Plan All Active Problems (Last Reviewed 11/08/18 @ 13:43 by Alan Valencia MD) Gallbladder sludge (Acute) Right upper quadrant pain (Acute) Umbilical hernia without obstruction or gangrene (Acute) Abdominal pain (Acute) Bile duct obstruction (Acute) Pancreatitis (Acute) Decubitus ulcer of left buttock, stage 2 (Acute) Pressure ulcer of right buttock, stage 3 (Acute) Cellulitis of left leg (Resolved) Ulcer (Resolved) Non-pressure chronic ulcer of left calf with fat layer exposed (Resolved) Non-pressure chronic ulcer of left ankle with fat layer exposed (Resolved) 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 (Resolved) 78-year-old female with pancreatitis status post ERCP 1. Patient appears to be doing well this morning. I will advance her to full liquid diet. If she tolerates that she can advance to regular diet at lunch to be discharged home this afternoon. Her lipase is decreasing and she is feeling better. She can follow-up with me in 2 weeks. Spencer Estevez MD Pager: [facility] [address] [place] [address], [address] [place] [address] Office:
[2019-04-17 09:42] VITALS: BP 111/54; PULSE 69; RESP 16; TEMP 36.6; O2SAT 96
--- NOTE | 2019-04-17 10:20 | CASEMGMT ---
RN KATHERINE Face to Face with patient for initial transition planning/care coordination assessment. RN CM introduced self and role at [facility]. Patient sitting in chair, alert and oriented. Patient willing to participate in assessment and is able to answer all questions appropriately. Care providers, pharmacy, and demographics verified. Patient wishes to discharge home, denies need for home health at this time. Patient states she has no further needs or concerns at this time. CM to follow for discharge planning needs that may arise. PCP: Mihaela BUSINESS SUPPORT ADMINISTRATOR Specialists: Michelle, field laboratory operator; MATT Oates Preferred Pharmacy: [facility] Insurance: [facility], [employer] Prescription Benefit: yes Living Will/HPOA: none, would like to complete while here at [facility], SW notified LNOK: son, daughter Living Arrangements: Patient lives alone in 2 story home with bed and bath on first floor. Patient is independent at home. Transportation: self/family DME/HHC: Patient has shower chair, raised toilet, cane, grab bars, walker. Patient denies need for HHC. Disposition Plan: Patient to discharge home with family support and follow-up plans in place. Lara JORDAN, RN, CM
--- NOTE | 2019-04-17 11:01 | PCM.DC ---
- Discharge Diagnoses Current Active Problems: Current Active and Chronic Problems (Last Reviewed 11/08/18 @ 13:43 by Alan Valencia MD) Abdominal pain (Acute) Bile duct obstruction (Acute) Pancreatitis (Acute) Reason(s) for Visit for Discharge Instructions: Abdominal pain You will use the following diet at home:: Calorie/Carbohydrate Controlled (specify 1200, 1400, etc) - 1800, Cardiac Your food should be the consistency of: Regular Your liquids should be the consistency of: Regular/Thin Discharge Activity: Return to Normal Activity Additional Instructions: Continue to remain active. Follow-up with your primary care doctor within 2 weeks, Dr. Estevez in 2 weeks. Allergies/Adverse Reactions: Allergies ezetimibe [From Zetia] Allergy (Verified 04/15/19 18:05) Itching lisinopril Allergy (Verified 04/15/19 18:05) Other cough neomycin [Neomycin] Allergy (Verified 04/15/19 15:34) Unknown neomycin sulfate [From Neosporin ([id number])] Allergy (Verified 04/15/19 15:34) Itching polymyxin B [Polymyxin B] Allergy (Verified 04/15/19 15:34) Unknown Sulfa (Sulfonamide Antibiotics) Allergy (Verified 04/15/19 15:34) Unknown tetracycline [Tetracycline] Allergy (Verified 04/15/19 15:34) Itching adhesive tape Adverse Reaction (Severe, Verified 04/15/19 15:34) Unknown atorvastatin calcium [From Lipitor] Adverse Reaction (Verified 04/15/19 18:10) Pain in joints Medications to take at Discharge Famotidine [Pepcid] 20 mg PO BID 01/15/17 Irbesartan [Avapro] 75 mg PO DAILY 01/15/17 Meclizine HCl [Antivert] 25 mg PO TID PRN PRN 01/15/17 Pentoxifylline [Trental] 400 mg PO BID 01/15/17 Potassium Chloride [K-Dur] 10 meq PO DAILY PRN 01/15/17 cyanocobalamin (vit B-12) 1,000 mcg/mL oral drops 1,000 mcg PO DAILY 09/21/17 pravastatin 80 mg tablet 40 mg PO MOWE tab 09/10/18 torsemide 20 mg tablet 20 mg PO DAILY PRN 09/10/18 Horse [place] Seed [Horse [place]] 300 mg PO DAILY 11/16/18 Cholecalciferol (Vitamin D3) [Vitamin D3] 2,000 unit PO DAILY 04/15/19 Primary Care Physician: Lesly Chairez NP-C [Primary Care Provider] - Please follow up with your Primary Care Physician in: within 1-2 weeks Test Results: Test results from this visit will be discussed in further detail at your follow-up appointment, if applicable. Please Follow Up With: Spencer Estevez MD When: in 2 weeks Proposed Discharge Date: 04/17/19
--- NOTE | 2019-04-17 11:03 | DS.PCM_ITS ---
Discharge Date and Diagnosis - Problem List Patient Problems: Active and Suspected Problems (Last Reviewed 11/08/18 @ 13:43 by Alan Valencia MD) Abdominal pain (Acute) Bile duct obstruction (Acute) Pancreatitis (Acute) Date of Admission: 04/15/19 Date of Discharge: 04/17/19 - Primary Discharge Diagnosis Active and Suspected Problems (Last Reviewed 11/08/18 @ 13:43 by Alan Valencia MD) Gallstone Pancreatitis (Acute) Biliary sludge Stage I pressure ulcers, present on admission - Secondary Discharge Diagnosis Chronic Problems (Last Reviewed 11/08/18 @ 13:43 by Alan Valencia MD) Type 2 diabetes mellitus (Chronic) Pure hypercholesterolemia (Chronic) Essential hypertension (Chronic) GERD (gastroesophageal reflux disease) (Chronic) Osteoarthritis (Chronic) Edema of both legs (Chronic) Hiatal hernia (Chronic) Venous stasis ulcer (Chronic) Abnormal exercise myocardial perfusion study (Chronic) Palpitations (Chronic) 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) Mild Failure to thrive (Chronic) Positional vertigo (Chronic) Obesity (Chronic) Hx of venous thrombosis and embolism (Chronic) history of cellulitis of leg (Chronic) Leg swelling (Chronic) Hyperpigmentation of skin (Chronic) Lipodermatosclerosis (Chronic) 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 Intrahepatic and extrahepatic biliary dilation without distinct obstructing lesion. A small lesion in the pancreatic head/ampulla below the resolution of CT is in the differential diagnosis, refer to further investigation/imaging. Electronically Signed: Renee Arambula, at 17:51 EST Tel , Service support , ERCP X-Ray 04/16/19 15:30 IMPRESSION: ERCP in the OR. Electronically Signed: Reji Mcneal DO at 21:30 EST Tel [phone], Service support , General surgery?Dr. Estevez Operations: ERCP Summary of Care Provided: The patient is a 78 year old F with PMHx of hypertension, Type 2 DM, s/p laparosocpic cholecyctecyomy in November 2018 comes in with sudden onset right upper and epigastric discomfort, associated with nausea, vomiting and diarrhea. Patient had an elevated lipase more thousand 600. She has a history of laparoscopic cholecystectomy [address] abd/pelvis reported pancreas as normal except for the head of pancreas with small lesion. Her LFTs were initially not elevated except for total bilirubin. General surgery was consulted for ERCP. Her liver enzymes increased next day. Patient underwent ERCP with sphincterectomy. Findings included dilated intrahepatic and extrahepatic duct. There was biliary debris throughout the biliary tree. Post procedure, patient continued to remain stable. She tolerated an advancement in her diet. Of note is that patient had a stage I the portals pressure ulcers which were present on admission. She said he had developed on the . She admits to sitting on her buttocks a lot. This is not the first time she has had pressure ulcers. She used to follow-up with the wound center. Wound RN was consulted. Patient will continue treatment with a barrier cream. I encouraged her to follow-up with the wound center. Patient Problems: Active and Suspected Problems (Last Reviewed 11/08/18 @ 13:43 by Alan Valencia MD) Abdominal pain (Acute) Bile duct obstruction (Acute) Pancreatitis (Acute) Subjective: See progress note of the day Objective: See progress note of the day - Physical Exam Vitals/I&O's: Vital Signs Temp Pulse Resp BP Pulse Ox 97.9 F 69 16 111/54 L 96 04/17/19 09:42 04/17/19 09:42 04/17/19 09:42 04/17/19 09:42 04/17/19 09:42 Oxygen Delivery Method Room Air Weight: 78.925 kg Body Mass Index (BMI) 35.3 Finger Stick Blood Glucose 80 Intake and Output for Last 24 Hours 04/15/19 04/16/19 04/17/19 23:59 23:59 23:59 Intake Total 1082.5 / 1082.5 2568.33 / 3368.33 2910.42 / 2910.42 Output Total 750 / 750 Balance 1082.5 / 1082.5 2568.33 / 2968.33 2160.42 / 2160.42 Laboratory Results 04/16/19 12:15: POC Glucose 68 L 04/16/19 16:15: POC Glucose 80 04/16/19 17:46: POC Glucose 88 04/17/19 00:39: POC Glucose 123 H 04/17/19 04:52: WBC 6.1, RBC 3.59 L, Hgb 11.2 L, Hct 35.5 L, MCV 98.9, MCH 31.2, MCHC 31.5 L, RDW Std Deviation 47.1 H, RDW Coeff of Mihir 12.9, Plt Count 134 L, MPV 12.5 H, Immature Gran % (Auto) 0.300, Neut % (Auto) 84.3 H, Lymph % (Auto) 13.4 L, [place] % (Auto) 2.0, Eos % (Auto) 0.0, Baso % (Auto) 0.0, Absolute Neuts (auto) 5.2, Absolute Lymphs (auto) 0.82 L, Nucleated RBC % 0 04/17/19 04:52: Sodium 142, Potassium 4.0, Chloride 111 H, Carbon Dioxide 24.0, Anion Gap 7, BUN 9, Creatinine 0.76, Estim Creat Clear Calc 53.36, Est GFR (MDRD) Af Amer 94, Est GFR (MDRD) Non-Af 78, BUN/Creatinine Ratio 11.8, Glucose 169 H, Calcium 8.0 L, Total Bilirubin 0.60, AST 102 H, ALT 106 H, Alkaline Phosphatase 113, Total Protein 6.2 L, Albumin 2.6 L, Globulin 3.6, Albumin/Globulin Ratio 0.7 L, Lipase 1860 H 04/17/19 06:43: POC Glucose 156 H Current Medications Acetaminophen (Tylenol) 650 mg PO Q6H PRN PRN PRN Reason: Pain Score 1-3/Temp > 100.7 F Dextrose (D50w Syringe) 0 gm IV X1 PRN; Protocol PRN Reason: Hypoglycemia Last Admin: 04/16/19 03:06 Dose: 12.5 gm Documented by: Glucagon () 1 mg IM .X1 PRN PRN Reason: Hypoglycemia Heparin Sodium (Porcine) (Heparin Na) 5,000 unit SC Q8 [facility] Last Admin: 04/17/19 06:22 Dose: Not Given Documented by: Pantoprazole Sodium 40 mg/ (Sodium Chloride) 110 mls @ 330 mls/hr IV Q12 [facility] Last Admin: 04/17/19 09:58 Dose: 330 mls/hr Documented by: Insulin Human Lispro (Humalog Kwikpen (Bkc)) 0 unit SC ACHS [facility]; Protocol Last Admin: 04/17/19 06:51 Dose: 1 u Documented by: Melatonin (Melatonin) 3 mg PO QHS PRN PRN PRN Reason: INSOMNIA Morphine Sulfate () 2 mg IV Q3H PRN PRN PRN Reason: Pain Score 6-10/10 Ondansetron HCl (Zofran) 4 mg IV Q8H PRN PRN PRN Reason: NAUSEA/VOMITING Sodium Chloride () 10 - 40 ml IV UD PRN PRN Reason: SALINE FLUSH Discharge Diet: Low fat/ Low Cholesterol, 1800 Calorie Control Diet, 2000 mg Sodium Diet Discharge Activity: Return to Normal Activity Home Medications: Medications to take at Discharge Famotidine [Pepcid] 20 mg PO BID 01/15/17 Irbesartan [Avapro] 75 mg PO DAILY 01/15/17 Meclizine HCl [Antivert] 25 mg PO TID PRN PRN 01/15/17 Pentoxifylline [Trental] 400 mg PO BID 01/15/17 Potassium Chloride [K-Dur] 10 meq PO DAILY PRN 01/15/17 cyanocobalamin (vit B-12) 1,000 mcg/mL oral drops 1,000 mcg PO DAILY 09/21/17 pravastatin 80 mg tablet 40 mg PO MOWE tab 09/10/18 torsemide 20 mg tablet 20 mg PO DAILY PRN 09/10/18 Horse [place] Seed [Horse [place]] 300 mg PO DAILY 11/16/18 Cholecalciferol (Vitamin D3) [Vitamin D3] 2,000 unit PO DAILY 04/15/19 Ensure Clear 120 ml PO 4X/DAY #120 liquid 04/17/19 Following Prescrptions Were Given to Patient: Ensure Clear 120 ml PO 4X/DAY #120 liquid Transmission Status: Received by [facility] Primary Care Physician: Lesly Chairez, GRAIN [employer] PL[employer]S SUPERVISOR-C [Primary Care Provider] - Please follow up with your Primary Care Physician in: within 1-2 weeks Please Follow Up With: Spencer Estevez MD When: in 2 weeks Disposition: Home Minutes spent on discharge:: 40 Patient Condition:: Stable Medical Necessity - Tobacco Use Smoking Status: Never smoker Tobacco Use: Non-smoker Meaningful Use Info Meaningful Use Diagnoses (Choose all that apply): None applicable Code Visit Inpatient E&M: 53445 Disch Hosp
--- NOTE | 2019-04-17 11:23 | CASEMGMT ---
SW met w/pt, assisted in completing LW/POA forms. Pt put her daughter Terrie Bowers as Healthcare POA. SW gave pt originals and copies, and placed copies on the chart. CORBY Morales
[2019-04-17 11:35] LABS: Bedside Glucose 164 mg/dL (70-110)
--- NOTE | 2019-04-17 12:30 | NURSING ---
wound photo: left buttock
[2019-04-17 14:55] VITALS: BP 128/55; PULSE 63; RESP 16; TEMP 36.8; O2SAT 98
[2019-04-17] MEDS: Acetaminophen 325 MG Tablet 650 MG PO ×2 (15:00→21:09)
--- NOTE | 2019-04-17 15:06 | NURSING ---
Called the wound healing center twice to set up appt for patient. had to leave a message. no return call so far. will have patient call the wound center tomorrow to verify her appt.
--- NOTE | 2019-04-17 15:07 | CHAPLAIN ---
Type of Pastoral Visit _x__ Initial Visit ___ Follow-up Visit ___ On-call Visit ___ General Patient Visit ___ Spiritual Assessment ___ Family Conference ___ Bereavement ___ Rapid Response ___ Code Blue ___ Other (describe below) Pastoral Care Referral From _x__ Patient ___ Family ___ Nurse ___ Physician ___ Production Pattern Maker ___ Fire Extinguisher Tester ___ Other (describe below) Sacrament/Intervention _x__ Active listening ___ Anointing ___ Tenriism ___ Bereavement ___ Communion ___ Crystal exploration ___ _x__ Life review _x__ Prayer ___ Reconciliation ___ Sacrament of Sick _x__ Supportive presence ___ Wedding ___ Other (describe below) Pastoral Comments
[2019-04-17 16:55] LABS: Bedside Glucose 119 mg/dL (70-110)
[2019-04-17 20:06] VITALS: BP 138/45; PULSE 62; RESP 18; TEMP 36.7; O2SAT 95
[2019-04-17] MEDS: Famotidine 20 MG Tablet PO (21:45)
[2019-04-17 21:56] LABS: Bedside Glucose 110 mg/dL (70-110)
[2019-04-18 05:40] VITALS: BP 140/57; PULSE 64; RESP 18; TEMP 36.8; O2SAT 95
[2019-04-18] MEDS: Acetaminophen 325 MG Tablet 650 MG PO ×3 (06:11→19:45)
[2019-04-18 06:21] LABS: Bedside Glucose 79 mg/dL (70-110)
[2019-04-18 08:14] LABS: ALB/GLOB Ratio 0.8 RATIO (0.9-2.4); AST(SGOT) 51 U/L (15-37); Alanine Aminotransfer ALT/SGPT 74 U/L (13-56); Alkaline Phosphatase 102 U/L (45-117); Anion Gap 8 (5-15); BUN 12 mg/dL (7-18); BUN/Creat Ratio 15.2 RATIO (10-20); Calcium,Total 8.7 mg/dL (8.5-10.1); Chloride 108 mmol/L (98-107); Creatinine, Serum 0.79 mg/dL (0.55-1.02); EST Glomerular Filtration Rate 75 mL/min (>60); Est Glom Filt Rate - Afr Amer 90 mL/min (>60); Estimated Creatinine Clearance 56.89 ml/min; Globulin 3.6 g/dL (2.2-4.2); Glucose 77 mg/dL (74-106); Potassium 3.7 mmol/L (3.5-5.1); Protein, Total 6.6 g/dL (6.4-8.2); Sodium Level 141 mmol/L (136-145)
--- NOTE | 2019-04-18 08:31 | PN.SURG_ITS ---
Patient Problems: Active and Suspected Problems (Last Reviewed 11/08/18 @ 13:43 by Alan Valencia MD) Abdominal pain (Acute) Bile duct obstruction (Acute) Pancreatitis (Acute) Subjective: Patient reported increased pain after eating lunch yesterday. She reported some nausea but no vomiting. - Physical Exam Vitals/I&O's: Vital Signs Temp Pulse Resp BP Pulse Ox 98.3 F 64 18 140/57 H 95 04/18/19 05:40 04/18/19 05:40 04/18/19 05:40 04/18/19 05:40 04/18/19 05:40 Oxygen Delivery Method Room Air Weight: 174 lb 2.643 oz Body Mass Index (BMI) 35.3 Finger Stick Blood Glucose 80 Intake and Output for Last 24 Hours 04/16/19 04/17/19 04/18/19 23:59 23:59 23:59 Intake Total 2568.33 / 3368.33 3020.42 / 3020.42 Output Total 750 / 750 Balance 2568.33 / 2968.33 2270.42 / 2270.42 General: Alert, Oriented x3 Cardiovascular: Regular Rhythm Abdomen: Soft, Non-Distended, Tender - Tender in the epigastrium Laboratory Results 04/17/19 11:23: POC Glucose 164 H 04/17/19 16:50: POC Glucose 119 H 04/17/19 21:48: POC Glucose 110 04/18/19 06:14: POC Glucose 79 04/18/19 07:50: Sodium 141, Potassium 3.7, Chloride 108 H, Carbon Dioxide 25.0, Anion Gap 8, BUN 12, Creatinine 0.79, Estim Creat Clear Calc 56.89, Est GFR (MDRD) Af Amer 90, Est GFR (MDRD) Non-Af 75, BUN/Creatinine Ratio 15.2, Glucose 77, Calcium 8.7, Total Bilirubin 0.70, AST 51 H, ALT 74 H, Alkaline Phosphatase 102, Total Protein 6.6, Albumin 3.0 L, Globulin 3.6, Albumin/Globulin Ratio 0.8 L 04/18/19 07:50: Lipase Pending Current Medications Acetaminophen (Tylenol) 650 mg PO Q6H PRN PRN PRN Reason: Pain Score 1-3/Temp > 100.7 F Last Admin: 11/14/19 06:11 Dose: 650 mg Documented by: Dextrose (D50w Syringe) 0 gm IV X1 PRN; Protocol PRN Reason: Hypoglycemia Last Admin: 04/16/19 03:06 Dose: 12.5 gm Documented by: Famotidine (Pepcid) 20 mg PO BID [facility] Last Admin: 04/17/19 21:45 Dose: 20 mg Documented by: Glucagon () 1 mg IM .X1 PRN PRN Reason: Hypoglycemia Heparin Sodium (Porcine) (Heparin Na) 5,000 unit SC Q8 [facility]IE Last Admin: 04/18/19 05:26 Dose: Not Given Documented by: Ibuprofen (Motrin) 600 mg PO Q6H PRN PRN PRN Reason: Pain Score 1-10/10 Insulin Human Lispro (Humalog Kwikpen (Bkc)) 0 unit SC ACHS [facility]; Protocol Last Admin: 04/18/19 06:15 Dose: Not Given Documented by: Melatonin (Melatonin) 3 mg PO QHS PRN PRN PRN Reason: INSOMNIA Ondansetron HCl (Zofran) 4 mg IV Q8H PRN PRN PRN Reason: NAUSEA/VOMITING Sodium Chloride () 10 - 40 ml IV UD PRN PRN Reason: SALINE FLUSH Medical Necessity - Tobacco Use Smoking Status: Never smoker Tobacco Use: Non-smoker Assessment/Plan All Active Problems (Last Reviewed 11/08/18 @ 13:43 by Alan Valencia MD) Gallbladder sludge (Acute) Right upper quadrant pain (Acute) Umbilical hernia without obstruction or gangrene (Acute) Abdominal pain (Acute) Bile duct obstruction (Acute) Pancreatitis (Acute) Decubitus ulcer of left buttock, stage 2 (Acute) Pressure ulcer of right buttock, stage 3 (Acute) Cellulitis of left leg (Resolved) Ulcer (Resolved) Non-pressure chronic ulcer of left calf with fat layer exposed (Resolved) Non-pressure chronic ulcer of left ankle with fat layer exposed (Resolved) 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 (Resolved) 78-year-old female with pancreatitis 1. Patient's LFTs continue to decrease. She started a regular diet yesterday afternoon and this caused her epigastric pain which was severe. He also caused her nausea. I would like to change her diet back to clear liquids and check lipase today. We may have started a diet too soon and the pancreatitis needs to settle down some more. Spencer Estevez MD Pager: [phone] [address] [place] [address], [address] [place] [address] Office:
[2019-04-18 08:42] LABS: Lipase 2585 U/L (73-393)
[2019-04-18 10:00] VITALS: BP 152/54; PULSE 65; RESP 18; TEMP 36.9; O2SAT 97
[2019-04-18] MEDS: Famotidine 20 MG Tablet PO (10:07)
--- NOTE | 2019-04-18 12:26 | PCM.PN.HOSP ---
Patient Problems: Active and Suspected Problems (Last Reviewed 11/08/18 @ 13:43 by Alan Valencia MD) Abdominal pain (Acute) Bile duct obstruction (Acute) Pancreatitis (Acute) Subjective: Late entry note for 04/17/19. Patient was seen and examined and dischargedon 04/17/19. She developed abdominal pain later around 7pm and discharge was cancelled. On 04/17/19, patient denied any pain. She was able to tolerate improvement in hand diet earlier on. Review of systems were negative. Objective: Physical exam: General: Alert, Oriented x3, Cooperative, No apparent distress HEENT: Atraumatic, PERRLA, EOMI, Normocephalic Neck: Supple, No JVD, Negative Carotid Bruits Lungs: Clear to auscultation, Normal air movement Cardiovascular: Regular rate, Regular Rhythm, Normal S1, Normal S2 Abdomen: Bowel Sounds Present, Soft, Non-Distended, Tender - epigastric and RUQ tenderness with guarding but no RBT Extremities: No edema Skin: No rashes, 2 small left buttocks stage 1 pressure ulcers Musculoskeletal: No Tenderness to Palpation of Joints or Extremities Lymphatic: No Cervical, Supraclavicular, or Inguinal Adenopathy Neurological: Cranial nerves II-XII grossly intact, Neuro grossly intact Psych/Mental Status: Normal Affect, Appropriate Vitals/I&O's: Vital Signs Temp Pulse Resp BP Pulse Ox 98.5 F 65 18 152/54 H 97 04/18/19 10:00 04/18/19 10:00 04/18/19 10:00 04/18/19 10:00 04/18/19 10:00 Oxygen Delivery Method Room Air Weight: 79 kg Body Mass Index (BMI) 35.3 Finger Stick Blood Glucose 80 Intake and Output for Last 24 Hours 04/16/19 04/17/19 04/18/19 23:59 23:59 23:59 Intake Total 2568.33 / 3368.33 3020.42 / 3020.42 240 / 240 Output Total 750 / 750 Balance 2568.33 / 2968.33 2270.42 / 2270.42 240 / 240 Laboratory Results 04/17/19 16:50: POC Glucose 119 H 04/17/19 21:48: POC Glucose 110 04/18/19 06:14: POC Glucose 79 04/18/19 07:50: Sodium 141, Potassium 3.7, Chloride 108 H, Carbon Dioxide 25.0, Anion Gap 8, BUN 12, Creatinine 0.79, Estim Creat Clear Calc 56.89, Est GFR (MDRD) Af Amer 90, Est GFR (MDRD) Non-Af 75, BUN/Creatinine Ratio 15.2, Glucose 77, Calcium 8.7, Total Bilirubin 0.70, AST 51 H, ALT 74 H, Alkaline Phosphatase 102, Total Protein 6.6, Albumin 3.0 L, Globulin 3.6, Albumin/Globulin Ratio 0.8 L 04/18/19 07:50: Lipase 2585 H Current Medications Acetaminophen (Tylenol) 650 mg PO Q6H PRN PRN PRN Reason: Pain Score 1-3/Temp > 100.7 F Last Admin: 04/18/19 12:22 Dose: 650 mg Documented by: Dextrose (D50w Syringe) 0 gm IV X1 PRN; Protocol PRN Reason: Hypoglycemia Last Admin: 04/16/19 03:06 Dose: 12.5 gm Documented by: Famotidine (Pepcid) 20 mg PO BID [facility] Last Admin: 04/18/19 10:07 Dose: 20 mg Documented by: Glucagon () 1 mg IM .X1 PRN PRN Reason: Hypoglycemia Heparin Sodium (Porcine) (Heparin Na) 5,000 unit SC Q8 [facility]PH[facility]IE Last Admin: 04/18/19 05:26 Dose: Not Given Documented by: Ibuprofen (Motrin) 600 mg PO Q6H PRN PRN PRN Reason: Pain Score 1-10/10 Insulin Human Lispro (Humalog Kwikpen (Bkc)) 0 unit SC ACHS [facility]; Protocol Last Admin: 04/18/19 11:42 Dose: Not Given Documented by: Melatonin (Melatonin) 3 mg PO QHS PRN PRN PRN Reason: INSOMNIA Ondansetron HCl (Zofran) 4 mg IV Q8H PRN PRN PRN Reason: NAUSEA/VOMITING Sodium Chloride () 10 - 40 ml IV UD PRN PRN Reason: SALINE FLUSH STROKE Vital Signs/Narrative: Vital Signs Temp Pulse Resp BP Pulse Ox 04/18/19 10:00 98.5 F 65 18 152/54 H 97 Medical Necessity - Tobacco Use Smoking Status: Never smoker Tobacco Use: Non-smoker Assessment/Plan All Active Problems (Last Reviewed 11/08/18 @ 13:43 by Alan Valencia MD) Gallbladder sludge (Acute) Right upper quadrant pain (Acute) Umbilical hernia without obstruction or gangrene (Acute) Abdominal pain (Acute) Bile duct obstruction (Acute) Pancreatitis (Acute) Decubitus ulcer of left buttock, stage 2 (Acute) Pressure ulcer of right buttock, stage 3 (Acute) Cellulitis of left leg (Resolved) Ulcer (Resolved) Non-pressure chronic ulcer of left calf with fat layer exposed (Resolved) Non-pressure chronic ulcer of left ankle with fat layer exposed (Resolved) 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 (Resolved) 78 year old F with PMHx of hypertension, Type 2 DM, s/p laparosocpic cholecyctecyomy in November 2018 comes in with sudden onset right upper and epigastric discomfort, associated with nausea, vomiting and diarrhea. 1. Gallstone pancreatitis s/p ERCP, status post sphincterectomy. Intra-procedure findings included dissection of the extra and intrahepatic ducts, debris in the biliary tree. Patient is improved. Able to tolerate a diet. Liver function test shows improvement 2. Hypertension, controlled, will continue to monitor 3. Type 2 DM, diet controlled, will monitor with blood glucose checks and ISS 4. Obesity, BMI 35.3, life style modification recommended 5. DVT PPx- Heparin Sc Code Visit Inpatient E&M: 88133 Subs Hosp L2
--- NOTE | 2019-04-18 12:27 | PCM.PN.HOSP ---
Patient Problems: Active and Suspected Problems (Last Reviewed 11/08/18 @ 13:43 by Alan Valencia MD) Abdominal pain (Acute) Bile duct obstruction (Acute) Pancreatitis (Acute) Vitals/I&O's: Vital Signs Temp Pulse Resp BP Pulse Ox 98.5 F 65 18 152/54 H 97 04/18/19 10:00 04/18/19 10:00 04/18/19 10:00 04/18/19 10:00 04/18/19 10:00 Oxygen Delivery Method Room Air Weight: 79 kg Body Mass Index (BMI) 35.3 Finger Stick Blood Glucose 80 Intake and Output for Last 24 Hours 04/16/19 04/17/19 04/18/19 23:59 23:59 23:59 Intake Total 2568.33 / 3368.33 3020.42 / 3020.42 240 / 240 Output Total 750 / 750 Balance 2568.33 / 2968.33 2270.42 / 2270.42 240 / 240 Laboratory Results 04/17/19 16:50: POC Glucose 119 H 04/17/19 21:48: POC Glucose 110 04/18/19 06:14: POC Glucose 79 04/18/19 07:50: Sodium 141, Potassium 3.7, Chloride 108 H, Carbon Dioxide 25.0, Anion Gap 8, BUN 12, Creatinine 0.79, Estim Creat Clear Calc 56.89, Est GFR (MDRD) Af Amer 90, Est GFR (MDRD) Non-Af 75, BUN/Creatinine Ratio 15.2, Glucose 77, Calcium 8.7, Total Bilirubin 0.70, AST 51 H, ALT 74 H, Alkaline Phosphatase 102, Total Protein 6.6, Albumin 3.0 L, Globulin 3.6, Albumin/Globulin Ratio 0.8 L 04/18/19 07:50: Lipase 2585 H Current Medications Acetaminophen (Tylenol) 650 mg PO Q6H PRN PRN PRN Reason: Pain Score 1-3/Temp > 100.7 F Last Admin: 04/18/19 12:22 Dose: 650 mg Documented by: Dextrose (D50w Syringe) 0 gm IV X1 PRN; Protocol PRN Reason: Hypoglycemia Last Admin: 04/16/19 03:06 Dose: 12.5 gm Documented by: Famotidine (Pepcid) 20 mg PO BID [facility] Last Admin: 04/18/19 10:07 Dose: 20 mg Documented by: Glucagon () 1 mg IM .X1 PRN PRN Reason: Hypoglycemia Heparin Sodium (Porcine) (Heparin Na) 5,000 unit SC Q8 [facility] Last Admin: 04/18/19 05:26 Dose: Not Given Documented by: Ibuprofen (Motrin) 600 mg PO Q6H PRN PRN PRN Reason: Pain Score 1-10/10 Insulin Human Lispro (Humalog Kwikpen (Bkc)) 0 unit SC ACHS [facility]; Protocol Last Admin: 04/18/19 11:42 Dose: Not Given Documented by: Melatonin (Melatonin) 3 mg PO QHS PRN PRN PRN Reason: INSOMNIA Ondansetron HCl (Zofran) 4 mg IV Q8H PRN PRN PRN Reason: NAUSEA/VOMITING Sodium Chloride () 10 - 40 ml IV UD PRN PRN Reason: SALINE FLUSH STROKE Vital Signs/Narrative: Vital Signs Temp Pulse Resp BP Pulse Ox 04/18/19 10:00 98.5 F 65 18 152/54 H 97 Medical Necessity - Tobacco Use Smoking Status: Never smoker Tobacco Use: Non-smoker Assessment/Plan All Active Problems (Last Reviewed 11/08/18 @ 13:43 by Alan Valencia MD) Gallbladder sludge (Acute) Right upper quadrant pain (Acute) Umbilical hernia without obstruction or gangrene (Acute) Abdominal pain (Acute) Bile duct obstruction (Acute) Pancreatitis (Acute) Decubitus ulcer of left buttock, stage 2 (Acute) Pressure ulcer of right buttock, stage 3 (Acute) Cellulitis of left leg (Resolved) Ulcer (Resolved) Non-pressure chronic ulcer of left calf with fat layer exposed (Resolved) Non-pressure chronic ulcer of left ankle with fat layer exposed (Resolved) 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 (Resolved) 78 year old F with PMHx of hypertension, Type 2 DM, s/p laparosocpic cholecyctecyomy in November 2018 comes in with sudden onset right upper and epigastric discomfort, associated with nausea, vomiting and diarrhea. 1. Gallstone pancreatitis s/p ERCP, status post sphincterectomy, slightly worse today. Lipase appears to have increased Findings during ERCP included dissection of the extra and intrahepatic ducts, debris in the biliary tree. Started on clear liquid diet. We will continue to monitor 2. Hypertension, controlled, will continue to monitor 3. Type 2 DM, diet controlled, will monitor with blood glucose checks and ISS 4. Obesity, BMI 35.3, life style modification recommended 5. DVT PPx- Heparin Sc Code Visit Inpatient E&M: 57275 Subs Hosp L2
[2019-04-18 13:15] LABS: Bedside Glucose 80 mg/dL (70-110)
[2019-04-18 13:15] LABS: Bedside Glucose 66 mg/dL (70-110)
[2019-04-18 15:27] VITALS: BP 152/47; PULSE 68; RESP 16; TEMP 36.7; O2SAT 97
[2019-04-18 17:05] LABS: Bedside Glucose 61 mg/dL (70-110)
[2019-04-18 18:36] LABS: Bedside Glucose 77 mg/dL (70-110)
[2019-04-18 20:03] VITALS: BP 155/58; PULSE 70; RESP 16; TEMP 37.2; O2SAT 100
[2019-04-18] MEDS: 0.9% Saline Lock 10 ML Syringe IV (22:12)
[2019-04-18 22:31] LABS: Bedside Glucose 91 mg/dL (70-110)
[2019-04-19] MEDS: Acetaminophen 325 MG Tablet 650 MG PO ×2 (02:04→08:10)
[2019-04-19 02:08] VITALS: BP 149/53; PULSE 76; RESP 16; TEMP 36.8; O2SAT 96
[2019-04-19 06:26] LABS: ALB/GLOB Ratio 0.7 RATIO (0.9-2.4); AST(SGOT) 29 U/L (15-37); Alanine Aminotransfer ALT/SGPT 52 U/L (13-56); Albumin, Serum 2.6 g/dL (3.2-5.0); Alkaline Phosphatase 97 U/L (45-117); Anion Gap 7 (5-15); BUN 8 mg/dL (7-18); BUN/Creat Ratio 11.7 RATIO (10-20); Calcium,Total 8.4 mg/dL (8.5-10.1); Chloride 108 mmol/L (98-107); Creatinine, Serum 0.69 mg/dL (0.55-1.02); EST Glomerular Filtration Rate 88 mL/min (>60); Est Glom Filt Rate - Afr Amer 106 mL/min (>60); Estimated Creatinine Clearance 56.89 ml/min; Globulin 3.8 g/dL (2.2-4.2); Glucose 88 mg/dL (74-106); Lipase 212 U/L (73-393); Potassium 3.7 mmol/L (3.5-5.1); Protein, Total 6.4 g/dL (6.4-8.2); Sodium Level 140 mmol/L (136-145)
[2019-04-19 06:46] LABS: Bedside Glucose 84 mg/dL (70-110)
--- NOTE | 2019-04-19 07:29 | PCM.PN.HOSP ---
Patient Problems: Active and Suspected Problems (Last Reviewed 11/08/18 @ 13:43 by Alan Valencia MD) Abdominal pain (Acute) Bile duct obstruction (Acute) Pancreatitis (Acute) Vitals/I&O's: Vital Signs Temp Pulse Resp BP Pulse Ox 98.3 F 76 16 149/53 H 96 04/19/19 02:08 04/19/19 02:08 04/19/19 02:08 04/19/19 02:08 04/19/19 02:08 Oxygen Delivery Method Room Air Weight: 78.562 kg Body Mass Index (BMI) 35.3 Finger Stick Blood Glucose 80 Intake and Output for Last 24 Hours 04/17/19 04/18/19 04/19/19 23:59 23:59 23:59 Intake Total 3020.42 / 3020.42 1000 / 1000 Output Total 750 / 750 Balance 2270.42 / 2270.42 1000 / 1000 General: Alert, Oriented x3, Cooperative, No apparent distress HEENT: Atraumatic, PERRLA, EOMI, Normocephalic Oral: Moist Mucosa Neck: Supple Lungs: Clear to auscultation, Normal air movement Cardiovascular: Regular rate, Regular Rhythm, Normal S1, Normal S2, No murmurs Abdomen: Bowel Sounds Present, Soft, Tender - over the upper abdomen Extremities: No edema Skin: No rashes, No breakdown Musculoskeletal: No Tenderness to Palpation of Joints or Extremities Lymphatic: No Cervical, Supraclavicular, or Inguinal Adenopathy Neurological: Cranial nerves II-XII grossly intact Psych/Mental Status: Normal Affect, Appropriate Laboratory Results 04/18/19 07:50: Sodium 141, Potassium 3.7, Chloride 108 H, Carbon Dioxide 25.0, Anion Gap 8, BUN 12, Creatinine 0.79, Estim Creat Clear Calc 56.89, Est GFR (MDRD) Af Amer 90, Est GFR (MDRD) Non-Af 75, BUN/Creatinine Ratio 15.2, Glucose 77, Calcium 8.7, Total Bilirubin 0.70, AST 51 H, ALT 74 H, Alkaline Phosphatase 102, Total Protein 6.6, Albumin 3.0 L, Globulin 3.6, Albumin/Globulin Ratio 0.8 L 04/18/19 07:50: Lipase 2585 H 04/18/19 11:41: POC Glucose 66 L 04/18/19 12:20: POC Glucose 80 04/18/19 16:58: POC Glucose 61 L 04/18/19 18:30: POC Glucose 77 04/18/19 22:15: POC Glucose 91 04/19/19 05:40: Sodium 140, Potassium 3.7, Chloride 108 H, Carbon Dioxide 25.0, Anion Gap 7, BUN 8, Creatinine 0.69, Estim Creat Clear Calc 56.89, Est GFR (MDRD) Af Amer 106, Est GFR (MDRD) Non-Af 88, BUN/Creatinine Ratio 11.7, Glucose 88, Calcium 8.4 L, Total Bilirubin 1.00, AST 29, ALT 52, Alkaline Phosphatase 97, Total Protein 6.4, Albumin 2.6 L, Globulin 3.8, Albumin/Globulin Ratio 0.7 L, Lipase 212 04/19/19 06:39: POC Glucose 84 Current Medications Acetaminophen (Tylenol) 650 mg PO Q6H PRN PRN PRN Reason: Pain Score 1-3/Temp > 100.7 F Last Admin: 04/19/19 02:04 Dose: 650 mg Documented by: Dextrose (D50w Syringe) 0 gm IV X1 PRN; Protocol PRN Reason: Hypoglycemia Last Admin: 04/16/19 03:06 Dose: 12.5 gm Documented by: Glucagon () 1 mg IM .X1 PRN PRN Reason: Hypoglycemia Heparin Sodium (Porcine) (Heparin Na) 5,000 unit SC Q8 STEPHANIE Last Admin: 04/19/19 05:07 Dose: Not Given Documented by: Pantoprazole Sodium 40 mg/ (Sodium Chloride) 110 mls @ 330 mls/hr IV Q12 STEPHANIE Last Infusion: 04/18/19 22:32 Dose: Infused Documented by: Sodium Chloride () 250 mls @ 15 mls/hr IV .[id number] PRN PRN Reason: Saline Flush Last Infusion: 04/18/19 23:52 Dose: 0 mls/hr Documented by: Insulin Human Lispro (Humalog Kwikpen (Bkc)) 0 unit SC ACHS [facility]; Protocol Last Admin: 04/19/19 06:48 Dose: Not Given Documented by: Melatonin (Melatonin) 3 mg PO QHS PRN PRN PRN Reason: INSOMNIA Morphine Sulfate () 1 mg IV Q4H PRN PRN PRN Reason: Pain Score 6-10/10 Ondansetron HCl (Zofran) 4 mg IV Q8H PRN PRN PRN Reason: NAUSEA/VOMITING Polyethylene Glycol (Miralax) 17 gm PO X1 ONE Stop: 04/19/19 07:31 Sodium Chloride () 10 - 40 ml IV UD PRN PRN Reason: SALINE FLUSH Last Admin: 04/18/19 22:12 Dose: 10 ml Documented by: Medical Necessity - Tobacco Use Smoking Status: Never smoker Tobacco Use: Non-smoker Assessment/Plan All Active Problems (Last Reviewed 11/08/18 @ 13:43 by Alan Valencia MD) Gallbladder sludge (Acute) Right upper quadrant pain (Acute) Umbilical hernia without obstruction or gangrene (Acute) Abdominal pain (Acute) Bile duct obstruction (Acute) Pancreatitis (Acute) Decubitus ulcer of left buttock, stage 2 (Acute) Pressure ulcer of right buttock, stage 3 (Acute) Cellulitis of left leg (Resolved) Ulcer (Resolved) Non-pressure chronic ulcer of left calf with fat layer exposed (Resolved) Non-pressure chronic ulcer of left ankle with fat layer exposed (Resolved) 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 (Resolved) 78 year old F with PMHx of hypertension, Type 2 DM, s/p laparoscopic cholecystectomy in November 2018 comes in with sudden onset right upper and epigastric discomfort, associated with nausea, vomiting and diarrhea. 1. Gallstone pancreatitis s/p ERCP, status post sphincterectomy, patient is still clinically not improved Unable to tolerate advancement in her diet; has severe nausea Started on clear liquid diet. Lipase was 212 We will continue on clear liquid diet and conservative management, IV fluids 2. Stage II left buttocks pressure ulcers, 2 in number, Wound RN consulted, Will continue with topical care and mobilization 3. Hypertension, controlled, will continue to monitor 4. Type 2 DM, diet controlled, blood sugars are relatively low Will continue to monitor with blood glucose checks and ISS 5. Obesity, BMI 35.3, life style modification recommended 6. DVT PPx- Heparin Sc Code Visit Inpatient E&M: 68309 Subs Hosp L2
--- NOTE | 2019-04-19 07:49 | PN.SURG_ITS ---
Patient Problems: Active and Suspected Problems (Last Reviewed 11/08/18 @ 13:43 by Alan Valencia MD) Abdominal pain (Acute) Bile duct obstruction (Acute) Pancreatitis (Acute) Subjective: The patient reports that her abdominal pain has resolved. She did not have any nausea or vomiting overnight. - Physical Exam Vitals/I&O's: Vital Signs Temp Pulse Resp BP Pulse Ox 98.3 F 76 16 149/53 H 96 04/19/19 02:08 04/19/19 02:08 04/19/19 02:08 04/19/19 02:08 04/19/19 02:08 Oxygen Delivery Method Room Air Weight: 173 lb 3.2 oz Body Mass Index (BMI) 35.3 Finger Stick Blood Glucose 80 Intake and Output for Last 24 Hours 04/17/19 04/18/19 04/19/19 23:59 23:59 23:59 Intake Total 3020.42 / 3020.42 1000 / 1000 Output Total 750 / 750 Balance 2270.42 / 2270.42 1000 / 1000 General: Alert, Oriented x3, Cooperative Neck: No JVD Lungs: Normal air movement Cardiovascular: Regular rate, Regular Rhythm Abdomen: Soft, Non Tender Laboratory Results 04/18/19 07:50: Sodium 141, Potassium 3.7, Chloride 108 H, Carbon Dioxide 25.0, Anion Gap 8, BUN 12, Creatinine 0.79, Estim Creat Clear Calc 56.89, Est GFR (MDRD) Af Amer 90, Est GFR (MDRD) Non-Af 75, BUN/Creatinine Ratio 15.2, Glucose 77, Calcium 8.7, Total Bilirubin 0.70, AST 51 H, ALT 74 H, Alkaline Phosphatase 102, Total Protein 6.6, Albumin 3.0 L, Globulin 3.6, Albumin/Globulin Ratio 0.8 L 04/18/19 07:50: Lipase 2585 H 04/18/19 11:41: POC Glucose 66 L 04/18/19 12:20: POC Glucose 80 04/18/19 16:58: POC Glucose 61 L 04/18/19 18:30: POC Glucose 77 04/18/19 22:15: POC Glucose 91 04/19/19 05:40: Sodium 140, Potassium 3.7, Chloride 108 H, Carbon Dioxide 25.0, Anion Gap 7, BUN 8, Creatinine 0.69, Estim Creat Clear Calc 56.89, Est GFR (MDRD) Af Amer 106, Est GFR (MDRD) Non-Af 88, BUN/Creatinine Ratio 11.7, Glucose 88, Calcium 8.4 L, Total Bilirubin 1.00, AST 29, ALT 52, Alkaline Phosphatase 97, Total Protein 6.4, Albumin 2.6 L, Globulin 3.8, Albumin/Globulin Ratio 0.7 L , Lipase 212 04/19/19 06:39: POC Glucose 84 Current Medications Acetaminophen (Tylenol) 650 mg PO Q6H PRN PRN PRN Reason: Pain Score 1-3/Temp > 100.7 F Last Admin: 04/19/19 02:04 Dose: 650 mg Documented by: Dextrose (D50w Syringe) 0 gm IV X1 PRN; Protocol PRN Reason: Hypoglycemia Last Admin: 04/16/19 03:06 Dose: 12.5 gm Documented by: Glucagon () 1 mg IM .X1 PRN PRN Reason: Hypoglycemia Heparin Sodium (Porcine) (Heparin Na) 5,000 unit SC Q8 STEPHANIE Last Admin: 04/19/19 05:07 Dose: Not Given Documented by: Pantoprazole Sodium 40 mg/ (Sodium Chloride) 110 mls @ 330 mls/hr IV Q12 STEPHANIE Last Infusion: 04/18/19 22:32 Dose: Infused Documented by: Sodium Chloride () 250 mls @ 15 mls/hr IV .[id number] PRN PRN Reason: Saline Flush Last Infusion: 04/18/19 23:52 Dose: 0 mls/hr Documented by: Insulin Human Lispro (Humalog Kwikpen (Bkc)) 0 unit SC ACHS [facility]; Protocol Last Admin: 04/19/19 06:48 Dose: Not Given Documented by: Melatonin (Melatonin) 3 mg PO QHS PRN PRN PRN Reason: INSOMNIA Morphine Sulfate () 1 mg IV Q4H PRN PRN PRN Reason: Pain Score 6-10/10 Ondansetron HCl (Zofran) 4 mg IV Q8H PRN PRN PRN Reason: NAUSEA/VOMITING Sodium Chloride () 10 - 40 ml IV UD PRN PRN Reason: SALINE FLUSH Last Admin: 04/18/19 22:12 Dose: 10 ml Documented by: Medical Necessity - Tobacco Use Smoking Status: Never smoker Tobacco Use: Non-smoker Assessment/Plan All Active Problems (Last Reviewed 11/08/18 @ 13:43 by Alan Valencia MD) Gallbladder sludge (Acute) Right upper quadrant pain (Acute) Umbilical hernia without obstruction or gangrene (Acute) Abdominal pain (Acute) Bile duct obstruction (Acute) Pancreatitis (Acute) Decubitus ulcer of left buttock, stage 2 (Acute) Pressure ulcer of right buttock, stage 3 (Acute) Cellulitis of left leg (Resolved) Ulcer (Resolved) Non-pressure chronic ulcer of left calf with fat layer exposed (Resolved) Non-pressure chronic ulcer of left ankle with fat layer exposed (Resolved) 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 (Resolved) 78-year-old female with pancreatitis 1. The patient reports that her abdominal pain has gotten better overnight. Today her lipase is normal. I will try her on a low-fat diet today. 2. Patient also ports she has not had a bowel movement I will order her dose of MiraLAX. Spencer Estevez MD Pager: [facility] [address] [place] [address] [address] [place] [address] Office:
[2019-04-19] MEDS: Polyethylene Glycol 3350 17 GM PACKET PO (08:10)
[2019-04-19] MEDS: Pantoprazole Sodium 40 MG Tablet PO (10:33)
[2019-04-19 10:39] VITALS: BP 145/68; PULSE 76; RESP 18; TEMP 36.7; O2SAT 100
[2019-04-19 11:45] LABS: Bedside Glucose 96 mg/dL (70-110)
[2019-04-19] MEDS: Ondansetron 4 MG/2 ML Vial IV (14:19)
[2019-04-19] MEDS: Morphine 2 MG/ML Syringe 1 MG IV (14:19)
[2019-04-19] MEDS: 0.9% Saline Lock 10 ML Syringe IV (14:20)
[2019-04-19] MEDS: Dextrose 5%/0.9% NaCl 1,000 ML 100 ML IV (16:23)
[2019-04-19] MEDS: Sucralfate 1 GM Tablet PO ×2 (16:23→21:08)
[2019-04-19 16:28] VITALS: BP 159/64; PULSE 72; RESP 18; TEMP 36.3; O2SAT 100
--- NOTE | 2019-04-19 17:15 | NURSING ---
multiple attempts to restart iv which started leaking- unsucessful x2 staff- nursing supervisor of instruction notified and will ask ER staff nurse to come assist with attempting iv. Pt given carb for blood sugar.
[2019-04-19 18:15] LABS: Bedside Glucose 75 mg/dL (70-110)
[2019-04-19 18:15] LABS: Bedside Glucose 69 mg/dL (70-110)
[2019-04-19 18:16] LABS: Bedside Glucose 90 mg/dL (70-110)
[2019-04-19 20:54] VITALS: BP 152/56; PULSE 68; RESP 18; TEMP 36.9; O2SAT 97
[2019-04-19 22:15] LABS: Bedside Glucose 96 mg/dL (70-110)
[2019-04-20 03:33] VITALS: BP 136/56; PULSE 65; RESP 18; TEMP 36.9; O2SAT 96
[2019-04-20] MEDS: Dextrose 5%/0.9% NaCl 1,000 ML 100 ML IV (03:41)
[2019-04-20] MEDS: Sucralfate 1 GM Tablet PO ×4 (06:53→21:33)
[2019-04-20 07:06] LABS: Bedside Glucose 102 mg/dL (70-110)
[2019-04-20 07:14] LABS: ALB/GLOB Ratio 0.6 RATIO (0.9-2.4); AST(SGOT) 20 U/L (15-37); Alanine Aminotransfer ALT/SGPT 36 U/L (13-56); Albumin, Serum 2.3 g/dL (3.2-5.0); Alkaline Phosphatase 84 U/L (45-117); Anion Gap 7 (5-15); BUN 7 mg/dL (7-18); BUN/Creat Ratio 10.7 RATIO (10-20); Chloride 111 mmol/L (98-107); Creatinine, Serum 0.65 mg/dL (0.55-1.02); EST Glomerular Filtration Rate 93 mL/min (>60); Est Glom Filt Rate - Afr Amer 112 mL/min (>60); Estimated Creatinine Clearance 57.49 ml/min; Globulin 3.7 g/dL (2.2-4.2); Glucose 105 mg/dL (74-106); Lipase 58 U/L (73-393); Potassium 3.5 mmol/L (3.5-5.1); Sodium Level 142 mmol/L (136-145)
[2019-04-20 08:02] LABS: Absolute Lymphocyte Count 1.98 X10^3/uL (0.83-4.51); Absolute Neutrophil Count 6.1 X10^3/uL (2.0-7.7); Basophil# 0.03 X10^3/uL; Basophil% 0.3 % (0-1); Eosinophils% 1.1 % (0-5); Hematocrit 33.7 % (37-47); Hemoglobin 10.9 g/dL (12.0-15.0); Lymphocyte # 1.98 X10^3/ul (4.0); Lymphocyte % 22.1 % (19-41); Mean Corp Hgb Conc 32.3 g/dL (32-36); Mean Corpuscular Hgb 31.6 pg (27.0-32.0); Mean Corpuscular Volume 97.7 fL (81-99); Mean Platelet Vol. 12.3 fl (6.2-12.0); Monocyte# 0.71 X10^3/uL; Monocyte% 7.9 % (0-10); NRBC Flagged by Analyzer 0 % (0-5); Neutrophil # 6.11 X10^3/uL (2.7-7.7); Neutrophil % 68.3 % (47-70); Platelet Count 129 K/mm3 (150-450); RBC Distribution Width SD 46.5 fl (35.1-43.9); Red Blood Count 3.45 M/mm3 (4.2-5.4)
--- NOTE | 2019-04-20 08:33 | PN_ITS ---
Patient Problems: Active and Suspected Problems (Last Reviewed 11/08/18 @ 13:43 by Alan Valencia MD) Abdominal pain (Acute) Bile duct obstruction (Acute) Pancreatitis (Acute) Subjective: Follow-up on gallstone pancreatitis: Patient was seen and examined. Her abdominal pain is improved. She did not take any clear liquid diet last night because of pain. She was started on IV fluids. She is feeling a little hungry. She is willing to continue on the clear liquid diet. Denied any nausea or vomiting or diarrhea today Objective: Physical exam: General: Alert, Oriented x3, Cooperative, No apparent distress HEENT: Atraumatic, PERRLA, EOMI, Normocephalic Oral: Moist Mucosa Neck: Supple Lungs: Clear to auscultation, Normal air movement Cardiovascular: Regular rate, Regular Rhythm, Normal S1, Normal S2, No murmurs Abdomen: Bowel Sounds Present, Soft, Tender - over the upper abdomen Extremities: No edema Skin: No rashes, No breakdown Musculoskeletal: No Tenderness to Palpation of Joints or Extremities Lymphatic: No Cervical, Supraclavicular, or Inguinal Adenopathy Neurological: Cranial nerves II-XII grossly intact Psych/Mental Status: Normal Affect, Appropriate Vitals/I&O's: Vital Signs Temp Pulse Resp BP Pulse Ox 98.5 F 65 18 136/56 H 96 04/20/19 03:33 04/20/19 03:33 04/20/19 03:33 04/20/19 03:33 04/20/19 03:33 Oxygen Delivery Method Room Air Weight: 79.832 kg Body Mass Index (BMI) 35.3 Finger Stick Blood Glucose 80 Intake and Output for Last 24 Hours 04/18/19 04/19/19 04/20/19 23:59 23:59 23:59 Intake Total 1000 / 1000 121.67 / 271.67 1216.67 / 1216.67 Balance 1000 / 1000 121.67 / 271.67 1216.67 / 1216.67 Laboratory Results 04/19/19 11:41: POC Glucose 96 04/19/19 16:14: POC Glucose 69 L 04/19/19 17:22: POC Glucose 75 04/19/19 18:06: POC Glucose 90 04/19/19 21:07: POC Glucose 96 04/20/19 06:13: WBC Cancelled, Corrected WBC Cancelled, RBC Cancelled, Hgb Cancelled, Hct Cancelled, MCV Cancelled, MCH Cancelled, MCHC Cancelled, RDW Std Deviation Cancelled, RDW Coeff of Mihir Cancelled, Plt Count Cancelled, MPV Cancelled, Immature Gran % (Auto) Cancelled, Neut % (Auto) Cancelled, Lymph % (Auto) Cancelled, [place] % (Auto) Cancelled, Eos % (Auto) Cancelled, Baso % (Auto) Cancelled, Absolute Neuts (auto) Cancelled, Absolute Lymphs (auto) Cancelled, Total Counted Cancelled, Neutrophils % (Manual) Cancelled, Band Neutrophils % Cancelled, Lymphocytes % (Manual) Cancelled, Monocytes % (Manual) Cancelled, Eosinophils % (Manual) Cancelled, Basophils % (Manual) Cancelled, Metamyelocytes % Cancelled, Myelocytes % Cancelled, Promyelocytes % Cancelled, Blast Cells % Cancelled, Plasma Cell % (Manual) Cancelled, Other Cells % Cancelled, Nucleated RBC % Cancelled, Nucleated RBCs/100 WBC Cancelled, Differential Comment Cancelled, Diff Path Review Cancelled, Hypersegmented Neuts Cancelled, Atypical Lymphocytes Cancelled, Reactive Lymphocytes Cancelled, Smudge Cells Cancelled, Toxic Granulation Cancelled, Toxic Vacuolation Cancelled, Dohle Bodies Cancelled, Radha Rods Cancelled, Platelet Estimate Cancelled, Plt Morphology Comment Cancelled, RBC Morphology Cancelled, Polychromasia Cancelled, Hypochromasia Cancelled, Poikilocytosis Cancelled, Basophilic Stippling Cancelled, Anisocytosis Cancelled, Microcytosis Cancelled, Macrocytosis Cancelled, Spherocytes Cancelled, Sickle Cells Cancelled, Target Cells Cancelled, Tear Drop Cells Cancelled, Ovalocytes Cancelled, Stomatocytes Cancelled, [place] Bodies Cancelled, Elmo Cells Cancelled, Bite Cells Cancelled, Crenated Cell Cancelled, Acanthocytes (Spur) Cancelled, Rouleaux Cancelled, Schistocytes Cancelled 04/20/19 06:13: Sodium 142, Potassium 3.5, Chloride 111 H, Carbon Dioxide 24.0, Anion Gap 7, BUN 7, Creatinine 0.65, Estim Creat Clear Calc 57.49, Est GFR (MDRD) Af Amer 112, Est GFR (MDRD) Non-Af 93, BUN/Creatinine Ratio 10.7, Glucose 105, Calcium 8.0 L, Total Bilirubin 0.60, AST 20, ALT 36, Alkaline Phosphatase 84, Total Protein 6.0 L, Albumin 2.3 L, Globulin 3.7, Albumin/Globulin Ratio 0.6 L, Lipase 58 L 04/20/19 06:47: POC Glucose 102 04/20/19 07:56: WBC 9.0, RBC 3.45 L, Hgb 10.9 L, Hct 33.7 L, MCV 97.7, MCH 31.6, MCHC 32.3, RDW Std Deviation 46.5 H, RDW Coeff of Mihir 13.0, Plt Count 129 L, MPV 12.3 H, Immature Gran % (Auto) 0.300, Neut % (Auto) 68.3, Lymph % (Auto) 22.1, [place] % (Auto) 7.9, Eos % (Auto) 1.1, Baso % (Auto) 0.3, Absolute Neuts (auto) 6.1, Absolute Lymphs (auto) 1.98, Nucleated RBC % 0 Current Medications Acetaminophen (Tylenol) 650 mg PO Q6H PRN PRN PRN Reason: Pain Score 1-3/Temp > 100.7 F Last Admin: 04/19/19 08:10 Dose: 650 mg Documented by: Dextrose (D50w Syringe) 0 gm IV X1 PRN; Protocol PRN Reason: Hypoglycemia Last Admin: 04/16/19 03:06 Dose: 12.5 gm Documented by: Glucagon () 1 mg IM .X1 PRN PRN Reason: Hypoglycemia Heparin Sodium (Porcine) (Heparin Na) 5,000 unit SC Q8 [facility] Last Admin: 04/20/19 06:12 Dose: Not Given Documented by: Sodium Chloride () 250 mls @ 15 mls/hr IV .[id number] PRN PRN Reason: Saline Flush Last Infusion: 04/19/19 10:40 Dose: Infused Documented by: Dextrose/Sodium Chloride (Dextrose 5%/0.9% Nacl) 1,000 mls @ 100 mls/hr IV .Q10H [facility] Stop: 04/20/19 12:22 Last Admin: 04/20/19 03:41 Dose: 100 mls/hr Documented by: Insulin Human Lispro (Humalog Kwikpen (Bkc)) 0 unit SC ACHS [facility]; Protocol Last Admin: 04/20/19 06:52 Dose: Not Given Documented by: Melatonin (Melatonin) 3 mg PO QHS PRN PRN PRN Reason: INSOMNIA Morphine Sulfate () 1 mg IV Q4H PRN PRN PRN Reason: Pain Score 6-10/10 Last Admin: 04/19/19 14:19 Dose: 1 mg Documented by: Ondansetron HCl (Zofran) 4 mg IV Q8H PRN PRN PRN Reason: NAUSEA/VOMITING Last Admin: 04/19/19 14:19 Dose: 4 mg Documented by: Pantoprazole Sodium (Protonix) 40 mg PO DAILY [facility] Last Admin: 04/19/19 10:33 Dose: 40 mg Documented by: Sodium Chloride () 10 - 40 ml IV UD PRN PRN Reason: SALINE FLUSH Last Admin: 04/19/19 14:20 Dose: 10 ml Documented by: Sucralfate (Carafate) 1 gm PO 1HR_ACHS [facility] Last Admin: 04/20/19 06:53 Dose: 1 gm Documented by: Medical Necessity - Tobacco Use Smoking Status: Never smoker Tobacco Use: Non-smoker Assessment/Plan All Active Problems (Last Reviewed 11/08/18 @ 13:43 by Alan Valencia MD) Gallbladder sludge (Acute) Right upper quadrant pain (Acute) Umbilical hernia without obstruction or gangrene (Acute) Abdominal pain (Acute) Bile duct obstruction (Acute) Pancreatitis (Acute) Decubitus ulcer of left buttock, stage 2 (Acute) Pressure ulcer of right buttock, stage 3 (Acute) Cellulitis of left leg (Resolved) Ulcer (Resolved) Non-pressure chronic ulcer of left calf with fat layer exposed (Resolved) Non-pressure chronic ulcer of left ankle with fat layer exposed (Resolved) 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 (Resolved) 78 year old F with PMHx of hypertension, Type 2 DM, s/p laparoscopic cholecystectomy in November 2018 comes in with sudden onset right upper and epigastric discomfort, associated with nausea, vomiting and diarrhea. 1. Gallstone pancreatitis s/p ERCP, status post sphincterectomy, patient's lipase is 22 today. However has been intolerant of advancement in her diet. She was started on clear liquid diet yesterday He appears to be a little improved today. We will continue her on the clear liquid diet. Continue with gentle IV fluids and conservative management. Possible discharge tomorrow if she is tolerating her diet. 2. Stage II left buttocks pressure ulcers, 2 in number, Wound RN consulted, Will continue with topical care and mobilization 3. Hypertension, controlled, will continue to monitor 4. Type 2 DM, diet controlled, blood sugars are relatively low Will continue to monitor with blood glucose checks and ISS 5. Obesity, BMI 35.3, life style modification recommended 6. DVT PPx- Heparin Sc Code Visit Inpatient E&M: 54343 Subs Hosp L2
--- NOTE | 2019-04-20 09:10 | PCM.PN.SRG ---
Patient Problems: Active and Suspected Problems (Last Reviewed 11/08/18 @ 13:43 by Alan Valencia MD) Abdominal pain (Acute) Bile duct obstruction (Acute) Pancreatitis (Acute) Subjective: Patient tried some Jell-O this morning started to feel nauseated. She has had no vomiting. Still complaining of some abdominal distention. He is passing some flatus Objective: Abdomen is soft it is slightly distended there is a few bowel sounds present. She has no rebound guarding or peritoneal signs. - Physical Exam Vitals/I&O's: Vital Signs Temp Pulse Resp BP Pulse Ox 98.5 F 65 18 136/56 H 96 04/20/19 03:33 04/20/19 03:33 04/20/19 03:33 04/20/19 03:33 04/20/19 03:33 Oxygen Delivery Method Room Air Weight: 176 lb Body Mass Index (BMI) 35.3 Finger Stick Blood Glucose 80 Intake and Output for Last 24 Hours 04/18/19 04/19/19 04/20/19 23:59 23:59 23:59 Intake Total 1000 / 1000 121.67 / 271.67 1216.67 / 1216.67 Balance 1000 / 1000 121.67 / 271.67 1216.67 / 1216.67 Laboratory Results 04/19/19 11:41: POC Glucose 96 04/19/19 16:14: POC Glucose 69 L 04/19/19 17:22: POC Glucose 75 04/19/19 18:06: POC Glucose 90 04/19/19 21:07: POC Glucose 96 04/20/19 06:13: WBC Cancelled, Corrected WBC Cancelled, RBC Cancelled, Hgb Cancelled, Hct Cancelled, MCV Cancelled, MCH Cancelled, MCHC Cancelled, RDW Std Deviation Cancelled, RDW Coeff of Mihir Cancelled, Plt Count Cancelled, MPV Cancelled, Immature Gran % (Auto) Cancelled, Neut % (Auto) Cancelled, Lymph % (Auto) Cancelled, [place] % (Auto) Cancelled, Eos % (Auto) Cancelled, Baso % (Auto) Cancelled, Absolute Neuts (auto) Cancelled, Absolute Lymphs (auto) Cancelled, Total Counted Cancelled, Neutrophils % (Manual) Cancelled, Band Neutrophils % Cancelled, Lymphocytes % (Manual) Cancelled, Monocytes % (Manual) Cancelled, Eosinophils % (Manual) Cancelled, Basophils % (Manual) Cancelled, Metamyelocytes % Cancelled, Myelocytes % Cancelled, Promyelocytes % Cancelled, Blast Cells % Cancelled, Plasma Cell % (Manual) Cancelled, Other Cells % Cancelled, Nucleated RBC % Cancelled, Nucleated RBCs/100 WBC Cancelled, Differential Comment Cancelled, Diff Path Review Cancelled, Hypersegmented Neuts Cancelled, Atypical Lymphocytes Cancelled, Reactive Lymphocytes Cancelled, Smudge Cells Cancelled, Toxic Granulation Cancelled, Toxic Vacuolation Cancelled, Dohle Bodies Cancelled, Radha Rods Cancelled, Platelet Estimate Cancelled, Plt Morphology Comment Cancelled, RBC Morphology Cancelled, Polychromasia Cancelled, Hypochromasia Cancelled, Poikilocytosis Cancelled, Basophilic Stippling Cancelled, Anisocytosis Cancelled, Microcytosis Cancelled, Macrocytosis Cancelled, Spherocytes Cancelled, Sickle Cells Cancelled, Target Cells Cancelled, Tear Drop Cells Cancelled, Ovalocytes Cancelled, Stomatocytes Cancelled, [place] Bodies Cancelled, Elmo Cells Cancelled, Bite Cells Cancelled, Crenated Cell Cancelled, Acanthocytes (Spur) Cancelled, Rouleaux Cancelled, Schistocytes Cancelled 04/20/19 06:13: Sodium 142, Potassium 3.5, Chloride 111 H, Carbon Dioxide 24.0, Anion Gap 7, BUN 7, Creatinine 0.65, Estim Creat Clear Calc 57.49, Est GFR (MDRD) Af Amer 112, Est GFR (MDRD) Non-Af 93, BUN/Creatinine Ratio 10.7, Glucose 105, Calcium 8.0 L, Total Bilirubin 0.60, AST 20, ALT 36, Alkaline Phosphatase 84, Total Protein 6.0 L, Albumin 2.3 L, Globulin 3.7, Albumin/Globulin Ratio 0.6 L, Lipase 58 L 04/20/19 06:47: POC Glucose 102 04/20/19 07:56: WBC 9.0, RBC 3.45 L, Hgb 10.9 L, Hct 33.7 L, MCV 97.7, MCH 31.6, MCHC 32.3, RDW Std Deviation 46.5 H, RDW Coeff of Mihir 13.0, Plt Count 129 L, MPV 12.3 H, Immature Gran % (Auto) 0.300, Neut % (Auto) 68.3, Lymph % (Auto) 22.1, [place] % (Auto) 7.9, Eos % (Auto) 1.1, Baso % (Auto) 0.3, Absolute Neuts (auto) 6.1, Absolute Lymphs (auto) 1.98, Nucleated RBC % 0 Current Medications Acetaminophen (Tylenol) 650 mg PO Q6H PRN PRN PRN Reason: Pain Score 1-3/Temp > 100.7 F Last Admin: 04/19/19 08:10 Dose: 650 mg Documented by: Dextrose (D50w Syringe) 0 gm IV X1 PRN; Protocol PRN Reason: Hypoglycemia Last Admin: 04/16/19 03:06 Dose: 12.5 gm Documented by: Glucagon () 1 mg IM .X1 PRN PRN Reason: Hypoglycemia Heparin Sodium (Porcine) (Heparin Na) 5,000 unit SC Q8 STEPHANIE Last Admin: 04/20/19 06:12 Dose: Not Given Documented by: Sodium Chloride () 250 mls @ 15 mls/hr IV .[id number] PRN PRN Reason: Saline Flush Last Infusion: 04/19/19 10:40 Dose: Infused Documented by: Dextrose/Sodium Chloride (Dextrose 5%/0.9% Nacl) 1,000 mls @ 100 mls/hr IV .Q10H [facility] Stop: 04/20/19 12:22 Last Admin: 04/20/19 03:41 Dose: 100 mls/hr Documented by: Insulin Human Lispro (Humalog Kwikpen (Bkc)) 0 unit SC ACHS [facility]; Protocol Last Admin: 04/20/19 06:52 Dose: Not Given Documented by: Melatonin (Melatonin) 3 mg PO QHS PRN PRN PRN Reason: INSOMNIA Morphine Sulfate () 1 mg IV Q4H PRN PRN PRN Reason: Pain Score 6-10/10 Last Admin: 04/19/19 14:19 Dose: 1 mg Documented by: Ondansetron HCl (Zofran) 4 mg IV Q8H PRN PRN PRN Reason: NAUSEA/VOMITING Last Admin: 04/19/19 14:19 Dose: 4 mg Documented by: Pantoprazole Sodium (Protonix) 40 mg PO DAILY [facility] Last Admin: 04/19/19 10:33 Dose: 40 mg Documented by: Sodium Chloride () 10 - 40 ml IV UD PRN PRN Reason: SALINE FLUSH Last Admin: 04/19/19 14:20 Dose: 10 ml Documented by: Sucralfate (Carafate) 1 gm PO 1HR_ACHS STEPHANIE Last Admin: 04/20/19 06:53 Dose: 1 gm Documented by: Medical Necessity - Tobacco Use Smoking Status: Never smoker Tobacco Use: Non-smoker Assessment/Plan All Active Problems (Last Reviewed 11/08/18 @ 13:43 by Alan Valencia MD) Gallbladder sludge (Acute) Right upper quadrant pain (Acute) Umbilical hernia without obstruction or gangrene (Acute) Abdominal pain (Acute) Bile duct obstruction (Acute) Pancreatitis (Acute) Decubitus ulcer of left buttock, stage 2 (Acute) Pressure ulcer of right buttock, stage 3 (Acute) Cellulitis of left leg (Resolved) Ulcer (Resolved) Non-pressure chronic ulcer of left calf with fat layer exposed (Resolved) Non-pressure chronic ulcer of left ankle with fat layer exposed (Resolved) 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 (Resolved) Labs show that the lipase is normal however clinically she clearly is not ready to start aggressive p.o. intake I think in would recommend at this point that we just give her the weekend to see how she progresses with just minimal p.o. intake.
[2019-04-20] MEDS: Pantoprazole Sodium 40 MG Tablet PO (09:50)
[2019-04-20 11:46] LABS: Bedside Glucose 81 mg/dL (70-110)
[2019-04-20 14:14] VITALS: BP 122/35; PULSE 70; RESP 18; TEMP 36.7; O2SAT 97
[2019-04-20 17:16] LABS: Bedside Glucose 84 mg/dL (70-110)
[2019-04-20 20:15] VITALS: BP 124/57; PULSE 71; RESP 18; TEMP 36.7; O2SAT 97
[2019-04-20 21:00] VITALS: O2SAT 97
[2019-04-20 21:16] LABS: Bedside Glucose 179 mg/dL (70-110)
[2019-04-20] MEDS: Insulin Lispro 100 UNIT/ML INSULN.PEN SC (21:33)
[2019-04-20] MEDS: 0.9% Saline Lock 10 ML Syringe IV (21:34)
[2019-04-21 02:15] VITALS: BP 125/71; PULSE 67; RESP 18; TEMP 36.8; O2SAT 97
[2019-04-21] MEDS: Sucralfate 1 GM Tablet PO ×4 (06:34→21:38)
[2019-04-21 06:55] LABS: Bedside Glucose 86 mg/dL (70-110)
[2019-04-21] MEDS: Pantoprazole Sodium 40 MG Tablet PO (07:59)
[2019-04-21 08:15] VITALS: BP 140/52; PULSE 65; RESP 18; TEMP 36.6; O2SAT 98
--- NOTE | 2019-04-21 09:08 | PN_ITS ---
Patient Problems: Active and Suspected Problems (Last Reviewed 11/08/18 @ 13:43 by Alan Valencia MD) Abdominal pain (Acute) Bile duct obstruction (Acute) Pancreatitis (Acute) Subjective: Follow-up on gallstone pancreatitis: Patient was seen and examined. Denies any abdominal pain or nausea or vomiting. She feels hungry. She was able to tolerate a clear liquid diet yesterday. ROS is negative Objective: Physical exam: General: Alert, Oriented x3, Cooperative, No apparent distress HEENT: Atraumatic, PERRLA, EOMI, Normocephalic Oral: Moist Mucosa Neck: Supple Lungs: Clear to auscultation, Normal air movement Cardiovascular: Regular rate, Regular Rhythm, Normal S1, Normal S2, No murmurs Abdomen: Bowel Sounds Present, Soft, Tender - over the upper abdomen Extremities: No edema Skin: No rashes, No breakdown Musculoskeletal: No Tenderness to Palpation of Joints or Extremities Lymphatic: No Cervical, Supraclavicular, or Inguinal Adenopathy Neurological: Cranial nerves II-XII grossly intact Psych/Mental Status: Normal Affect, Appropriate Vitals/I&O's: Vital Signs Temp Pulse Resp BP Pulse Ox 98.2 F 67 18 125/71 H 97 04/21/19 02:15 04/21/19 02:15 04/21/19 02:15 04/21/19 02:15 04/21/19 02:15 Oxygen Delivery Method Room Air Weight: 79.651 kg Body Mass Index (BMI) 35.3 Finger Stick Blood Glucose 80 Intake and Output for Last 24 Hours 04/19/19 04/20/19 04/21/19 23:59 23:59 23:59 Intake Total 121.67 / 271.67 3036.67 / 3336.67 650 / 650 Balance 121.67 / 271.67 3036.67 / 3336.67 650 / 650 Laboratory Results 04/20/19 11:35: POC Glucose 81 04/20/19 16:25: POC Glucose 84 04/20/19 21:13: POC Glucose 179 H 04/21/19 06:36: POC Glucose 86 Current Medications Acetaminophen (Tylenol) 650 mg PO Q6H PRN PRN PRN Reason: Pain Score 1-3/Temp > 100.7 F Last Admin: 04/19/19 08:10 Dose: 650 mg Documented by: Dextrose (D50w Syringe) 0 gm IV X1 PRN; Protocol PRN Reason: Hypoglycemia Last Admin: 04/16/19 03:06 Dose: 12.5 gm Documented by: Glucagon () 1 mg IM .X1 PRN PRN Reason: Hypoglycemia Heparin Sodium (Porcine) (Heparin Na) 5,000 unit SC Q8 [facility] Last Admin: 04/21/19 04:59 Dose: Not Given Documented by: Sodium Chloride () 250 mls @ 15 mls/hr IV .[id number] PRN PRN Reason: Saline Flush Last Infusion: 04/19/19 10:40 Dose: Infused Documented by: Insulin Human Lispro (Humalog Kwikpen (Bkc)) 0 unit SC [facility]; Protocol Last Admin: 04/21/19 06:37 Dose: Not Given Documented by: Melatonin (Melatonin) 3 mg PO QHS PRN PRN PRN Reason: INSOMNIA Morphine Sulfate () 1 mg IV Q4H PRN PRN PRN Reason: Pain Score 6-10/10 Last Admin: 04/19/19 14:19 Dose: 1 mg Documented by: Ondansetron HCl (Zofran) 4 mg IV Q8H PRN PRN PRN Reason: NAUSEA/VOMITING Last Admin: 04/19/19 14:19 Dose: 4 mg Documented by: Pantoprazole Sodium (Protonix) 40 mg PO DAILY [facility] Last Admin: 04/21/19 07:59 Dose: 40 mg Documented by: Sodium Chloride () 10 - 40 ml IV UD PRN PRN Reason: SALINE FLUSH Last Admin: 04/20/19 21:34 Dose: 10 ml Documented by: Sucralfate (Carafate) 1 gm PO [facility] Last Admin: 04/21/19 06:34 Dose: 1 gm Documented by: Medical Necessity - Tobacco Use Smoking Status: Never smoker Tobacco Use: Non-smoker Assessment/Plan All Active Problems (Last Reviewed 11/08/18 @ 13:43 by Alan Valencia MD) Gallbladder sludge (Acute) Right upper quadrant pain (Acute) Umbilical hernia without obstruction or gangrene (Acute) Abdominal pain (Acute) Bile duct obstruction (Acute) Pancreatitis (Acute) Decubitus ulcer of left buttock, stage 2 (Acute) Pressure ulcer of right buttock, stage 3 (Acute) Cellulitis of left leg (Resolved) Ulcer (Resolved) Non-pressure chronic ulcer of left calf with fat layer exposed (Resolved) Non-pressure chronic ulcer of left ankle with fat layer exposed (Resolved) 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 (Resolved) 78 year old F with PMHx of hypertension, Type 2 DM, s/p laparoscopic cholecystectomy in November 2018 comes in with sudden onset right upper and epigastric discomfort, associated with nausea, vomiting and diarrhea. 1. Gallstone pancreatitis s/p ERCP, status post sphincterectomy, slowly improving We will continue on clear liquid diet this morning and advance to a full liquid diet in the afternoon We will discharge if she is able to tolerate her diet 2. Stage II left buttocks pressure ulcers, 2 in number, Will continue with topical care and mobilization 3. Hypertension, controlled, will continue to monitor 4. Type 2 DM, diet controlled, blood sugars are relatively low Will continue to monitor with blood glucose checks and ISS 5. Obesity, BMI 35.3, life style modification recommended 6. DVT PPx- Heparin Sc Code Visit Inpatient E&M: 51213 Subs Hosp L2
--- NOTE | 2019-04-21 10:40 | PCM.PN.SRG ---
Patient Problems: Active and Suspected Problems (Last Reviewed 11/08/18 @ 13:43 by lAan Valencia MD) Abdominal pain (Acute) Bile duct obstruction (Acute) Pancreatitis (Acute) Subjective: Patient is feeling much better this morning. Tolerating liquids. Objective: Soft and nontender - Physical Exam Vitals/I&O's: Vital Signs Temp Pulse Resp BP Pulse Ox 98.2 F 67 18 125/71 H 97 04/21/19 02:15 04/21/19 02:15 04/21/19 02:15 04/21/19 02:15 04/21/19 02:15 Oxygen Delivery Method Room Air Weight: 175 lb 9.6 oz Body Mass Index (BMI) 35.3 Finger Stick Blood Glucose 80 Intake and Output for Last 24 Hours 04/19/19 04/20/19 04/21/19 23:59 23:59 23:59 Intake Total 121.67 / 271.67 3036.67 / 3336.67 650 / 650 Balance 121.67 / 271.67 3036.67 / 3336.67 650 / 650 Laboratory Results 04/20/19 11:35: POC Glucose 81 04/20/19 16:25: POC Glucose 84 04/20/19 21:13: POC Glucose 179 H 04/21/19 06:36: POC Glucose 86 Current Medications Acetaminophen (Tylenol) 650 mg PO Q6H PRN PRN PRN Reason: Pain Score 1-3/Temp > 100.7 F Last Admin: 04/19/19 08:10 Dose: 650 mg Documented by: Dextrose (D50w Syringe) 0 gm IV X1 PRN; Protocol PRN Reason: Hypoglycemia Last Admin: 04/16/19 03:06 Dose: 12.5 gm Documented by: Glucagon () 1 mg IM .X1 PRN PRN Reason: Hypoglycemia Heparin Sodium (Porcine) (Heparin Na) 5,000 unit SC Q8 [facility]IE Last Admin: 04/21/19 04:59 Dose: Not Given Documented by: Sodium Chloride () 250 mls @ 15 mls/hr IV .[id number] PRN PRN Reason: Saline Flush Last Infusion: 04/19/19 10:40 Dose: Infused Documented by: Insulin Human Lispro (Humalog Kwikpen (Bkc)) 0 unit SC ACHS STEPHANIE; Protocol Last Admin: 04/21/19 06:37 Dose: Not Given Documented by: Melatonin (Melatonin) 3 mg PO QHS PRN PRN PRN Reason: INSOMNIA Morphine Sulfate () 1 mg IV Q4H PRN PRN PRN Reason: Pain Score 6-10/10 Last Admin: 04/19/19 14:19 Dose: 1 mg Documented by: Ondansetron HCl (Zofran) 4 mg IV Q8H PRN PRN PRN Reason: NAUSEA/VOMITING Last Admin: 04/19/19 14:19 Dose: 4 mg Documented by: Pantoprazole Sodium (Protonix) 40 mg PO DAILY [facility] Last Admin: 04/21/19 07:59 Dose: 40 mg Documented by: Sodium Chloride () 10 - 40 ml IV UD PRN PRN Reason: SALINE FLUSH Last Admin: 04/20/19 21:34 Dose: 10 ml Documented by: Sucralfate (Carafate) 1 gm PO 1HR_ACHS [facility] Last Admin: 04/21/19 06:34 Dose: 1 gm Documented by: Medical Necessity - Tobacco Use Smoking Status: Never smoker Tobacco Use: Non-smoker Assessment/Plan All Active Problems (Last Reviewed 11/08/18 @ 13:43 by Alan Valencia MD) Gallbladder sludge (Acute) Right upper quadrant pain (Acute) Umbilical hernia without obstruction or gangrene (Acute) Abdominal pain (Acute) Bile duct obstruction (Acute) Pancreatitis (Acute) Decubitus ulcer of left buttock, stage 2 (Acute) Pressure ulcer of right buttock, stage 3 (Acute) Cellulitis of left leg (Resolved) Ulcer (Resolved) Non-pressure chronic ulcer of 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
[2019-04-21 11:35] LABS: Bedside Glucose 96 mg/dL (70-110)
[2019-04-21 14:15] VITALS: BP 138/56; PULSE 64; RESP 18; TEMP 36.6; O2SAT 98
[2019-04-21 16:46] LABS: Bedside Glucose 87 mg/dL (70-110)
[2019-04-21 20:06] VITALS: BP 141/49; PULSE 65; RESP 15; TEMP 36.7; O2SAT 96
[2019-04-21 21:00] VITALS: RESP 15
[2019-04-21 22:00] LABS: Bedside Glucose 82 mg/dL (70-110)
[2019-04-22 04:00] VITALS: BP 145/57; PULSE 57; RESP 15; TEMP 36.7; O2SAT 95
[2019-04-22] MEDS: Sucralfate 1 GM Tablet PO (06:54)
[2019-04-22 07:05] LABS: Bedside Glucose 75 mg/dL (70-110)
[2019-04-22 07:42] VITALS: BP 162/55; PULSE 68; RESP 16; TEMP 36.6; O2SAT 98
--- NOTE | 2019-04-22 08:03 | DCINST_ITS ---
- Discharge Diagnoses Current Active Problems: Current Active and Chronic Problems (Last Reviewed 11/08/18 @ 13:43 by Alan Valencia MD) Abdominal pain (Acute) Bile duct obstruction (Acute) Pancreatitis (Acute) You will use the following diet at home:: Full liquid Your food should be the consistency of: Mechanical soft (ground) Discharge Activity: Return to Normal Activity Allergies/Adverse Reactions: Allergies ezetimibe [From Zetia] Allergy (Verified 04/15/19 18:05) Itching lisinopril Allergy (Verified 04/15/19 18:05) Other cough neomycin [Neomycin] Allergy (Verified 04/15/19 15:34) Unknown neomycin sulfate [From Neosporin ([id number])] Allergy (Verified 04/15/19 15:34) Itching polymyxin B [Polymyxin B] Allergy (Verified 04/15/19 15:34) Unknown Sulfa (Sulfonamide Antibiotics) Allergy (Verified 04/15/19 15:34) Unknown tetracycline [Tetracycline] Allergy (Verified 04/15/19 15:34) Itching adhesive tape Adverse Reaction (Severe, Verified 04/15/19 15:34) Unknown atorvastatin calcium [From Lipitor] Adverse Reaction (Verified 04/15/19 18:10) Pain in joints Medications to take at Discharge Famotidine [Pepcid] 20 mg PO BID 01/15/17 Irbesartan [Avapro] 75 mg PO DAILY 01/15/17 Meclizine HCl [Antivert] 25 mg PO TID PRN PRN 01/15/17 Pentoxifylline [Trental] 400 mg PO BID 01/15/17 Potassium Chloride [K-Dur] 10 meq PO DAILY PRN 01/15/17 cyanocobalamin (vit B-12) 1,000 mcg/mL oral drops 1,000 mcg PO DAILY 09/21/17 pravastatin 80 mg tablet 40 mg PO MOWE tab 09/10/18 torsemide 20 mg tablet 20 mg PO DAILY PRN 09/10/18 [place] Seed [[place]] 300 mg PO DAILY 11/16/18 Cholecalciferol (Vitamin D3) [Vitamin D3] 2,000 unit PO DAILY 04/15/19 Ensure Clear 120 ml PO 4X/DAY #120 liquid 04/17/19 The following prescriptions were given: Ensure Clear 120 ml PO 4X/DAY #120 liquid Transmission Status: Received by [employer] [facility]30 Primary Care Physician: Lesly Chairez NP-C [Primary Care Provider] - Please follow up with your Primary Care Physician in: within 1-2 weeks Test Results: Test results from this visit will be discussed in further detail at your follow- up appointment, if applicable. Please Follow Up With: Spencer Estevez MD When: in 2 weeks Please Follow Up With: Lesly Chairez NP-C When: 1-2 weeks Please Follow Up With: [facility] When: next week Proposed Discharge Date: 04/22/19
--- NOTE | 2019-04-22 08:05 | DS.PCM_ITS ---
Discharge Date and Diagnosis - Problem List Patient Problems: Active and Suspected Problems (Last Reviewed 11/08/18 @ 13:43 by Alan Valencia MD) Abdominal pain (Acute) Bile duct obstruction (Acute) Pancreatitis (Acute) Date of Admission: 04/15/19 Date of Discharge: 04/22/19 - Primary Discharge Diagnosis Active and Suspected Problems (Last Reviewed 11/08/18 @ 13:43 by Alan Valencia MD) Abdominal pain (Acute) Bile duct obstruction (Acute) Pancreatitis (Acute) - Secondary Discharge Diagnosis Chronic Problems (Last Reviewed 11/08/18 @ 13:43 by Alan Valencia MD) Type 2 diabetes mellitus (Chronic) Pure hypercholesterolemia (Chronic) Essential hypertension (Chronic) GERD (gastroesophageal reflux disease) (Chronic) Osteoarthritis (Chronic) Edema of both legs (Chronic) Hiatal hernia (Chronic) Venous stasis ulcer (Chronic) Abnormal exercise myocardial perfusion study (Chronic) Palpitations (Chronic) 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) Mild Failure to thrive (Chronic) Positional vertigo (Chronic) Obesity (Chronic) Hx of venous thrombosis and embolism (Chronic) history of cellulitis of leg (Chronic) Leg swelling (Chronic) Hyperpigmentation of skin (Chronic) Lipodermatosclerosis (Chronic) 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 Intrahepatic and extrahepatic biliary dilation without distinct obstructing lesion. A small lesion in the pancreatic head/ampulla below the resolution of CT is in the differential diagnosis, refer to further investigation/imaging. Electronically Signed: Renee Arambula, at 17:51 EST Tel , Service support , ERCP X-Ray 04/16/19 15:30 IMPRESSION: ERCP in the OR. Electronically Signed: Reji Mcneal DO at 21:30 EST Tel [phone], Service support , Consultations 04/17/19 11:42 Consult: Onc/Wound/physical chemistry professor Routine Comment: Operations: ERCP Summary of Care Provided: The patient is a 78 year old F admitted with right upper quadrant and epigastric discomfort 1. Gallstone pancreatitis status post ERCP and sphincterectomy. Patient did improve with subsequent management 2. History of laparoscopic cholecystectomy in November 2018 stable 3. Hypertension ~ blood pressure controlled, home medications continued with dose adjustment as needed 4. Diabetes mellitus type II ~Diet controlled. Placed on Accu-Cheks a.c. and at bedtime and covered with sliding scale insulin 5. Obesity with BMI of 35.3 lifestyle modification advised 6. Stage II left buttocks pressure ulcer consult was placed to wound care nurse treated with frequent mobilization and topical care 7. DVT prophylaxis SC heparin Patient Problems: Active and Suspected Problems (Last Reviewed 11/08/18 @ 13:43 by Alan Valencia MD) Abdominal pain (Acute) Bile duct obstruction (Acute) Pancreatitis (Acute) - Physical Exam Vitals/I&O's: Vital Signs Temp Pulse Resp BP Pulse Ox 97.8 F 68 16 162/55 H 98 04/22/19 07:42 04/22/19 07:42 04/22/19 07:42 04/22/19 07:42 04/22/19 07:42 Oxygen Delivery Method Room Air Weight: 79.651 kg Body Mass Index (BMI) 35.3 Finger Stick Blood Glucose 80 Intake and Output for Last 24 Hours 04/20/19 04/21/19 04/22/19 23:59 23:59 23:59 Intake Total 3036.67 / 3336.67 650 / 750 100 / 100 Balance 3036.67 / 3336.67 650 / 750 100 / 100 General: Alert HEENT: Atraumatic Neck: No JVD Lungs: Clear to auscultation Cardiovascular: Regular rate, Regular Rhythm Neurological: Neuro grossly intact Psych/Mental Status: Normal Affect Laboratory Results 04/21/19 11:17: POC Glucose 96 04/21/19 15:55: POC Glucose 87 04/21/19 21:54: POC Glucose 82 04/22/19 06:58: POC Glucose 75 Current Medications Acetaminophen (Tylenol) 650 mg PO Q6H PRN PRN PRN Reason: Pain Score 1-3/Temp > 100.7 F Last Admin: 04/19/19 08:10 Dose: 650 mg Documented by: Dextrose (D50w Syringe) 0 gm IV X1 PRN; Protocol PRN Reason: Hypoglycemia Last Admin: 04/16/19 03:06 Dose: 12.5 gm Documented by: Glucagon () 1 mg IM .X1 PRN PRN Reason: Hypoglycemia Heparin Sodium (Porcine) (Heparin Na) 5,000 unit SC Q8 STEPHANIE Last Admin: 04/22/19 06:54 Dose: Not Given Documented by: Sodium Chloride () 250 mls @ 15 mls/hr IV .[id number] PRN PRN Reason: Saline Flush Last Infusion: 04/19/19 10:40 Dose: Infused Documented by: Insulin Human Lispro (Humalog Kwikpen (Bkc)) 0 unit SC [facility]; Protocol Last Admin: 04/22/19 07:41 Dose: Not Given Documented by: Melatonin (Melatonin) 3 mg PO QHS PRN PRN PRN Reason: INSOMNIA Morphine Sulfate () 1 mg IV Q4H PRN PRN PRN Reason: Pain Score 6-10/10 Last Admin: 04/19/19 14:19 Dose: 1 mg Documented by: Ondansetron HCl (Zofran) 4 mg IV Q8H PRN PRN PRN Reason: NAUSEA/VOMITING Last Admin: 04/19/19 14:19 Dose: 4 mg Documented by: Pantoprazole Sodium (Protonix) 40 mg PO DAILY [facility] Last Admin: 04/21/19 07:59 Dose: 40 mg Documented by: Sodium Chloride () 10 - 40 ml IV UD PRN PRN Reason: SALINE FLUSH Last Admin: 04/20/19 21:34 Dose: 10 ml Documented by: Sucralfate (Carafate) 1 gm PO 1HR_ACHS [facility] Last Admin: 04/22/19 06:54 Dose: 1 gm Documented by: Discharge Diet: Low fat/ Low Cholesterol, 1800 Calorie Control Diet, 2000 mg Sodium Diet Discharge Activity: Return to Normal Activity Home Medications: Medications to take at Discharge Famotidine [Pepcid] 20 mg PO BID 01/15/17 Irbesartan [Avapro] 75 mg PO DAILY 01/15/17 Meclizine HCl [Antivert] 25 mg PO TID PRN PRN 01/15/17 Pentoxifylline [Trental] 400 mg PO BID 01/15/17 Potassium Chloride [K-Dur] 10 meq PO DAILY PRN 01/15/17 cyanocobalamin (vit B-12) 1,000 mcg/mL oral drops 1,000 mcg PO DAILY 09/21/17 pravastatin 80 mg tablet 40 mg PO MOWE tab 09/10/18 torsemide 20 mg tablet 20 mg PO DAILY PRN 09/10/18 [place] Seed [[place]] 300 mg PO DAILY 11/16/18 Cholecalciferol (Vitamin D3) [Vitamin D3] 2,000 unit PO DAILY 04/15/19 Ensure Clear 120 ml PO 4X/DAY #120 liquid 04/17/19 Following Prescrptions Were Given to Patient: Ensure Clear 120 ml PO 4X/DAY #120 liquid Transmission Status: Received by [employer] #30 Primary Care Physician: Lesly Chairez NP-C [Primary Care Provider] - Please follow up with your Primary Care Physician in: within 1-2 weeks Please Follow Up With: Spencer Estevez MD When: in 2 weeks Please Follow Up With: Lesly Chairez NP-C When: 1-2 weeks Please Follow Up With: [facility] When: next week Disposition: Home Minutes spent on discharge:: 35 Patient Condition:: Stable Medical Necessity - Tobacco Use Smoking Status: Never smoker Tobacco Use: Non-smoker Meaningful Use Info Meaningful Use Diagnoses (Choose all that apply): None applicable Code Visit Inpatient E&M: 05478 Disch Hosp
--- NOTE | 2019-04-22 08:44 | PN.SURG_ITS ---
Patient Problems: Active and Suspected Problems (Last Reviewed 11/08/18 @ 13:43 by Alan Valencia MD) Abdominal pain (Acute) Bile duct obstruction (Acute) Pancreatitis (Acute) Subjective: Patient reports she is doing well with full liquids. - Physical Exam Vitals/I&O's: Vital Signs Temp Pulse Resp BP Pulse Ox 97.8 F 68 16 162/55 H 98 04/22/19 07:42 04/22/19 07:42 04/22/19 07:42 04/22/19 07:42 04/22/19 07:42 Oxygen Delivery Method Room Air Weight: 175 lb 9.6 oz Body Mass Index (BMI) 35.3 Finger Stick Blood Glucose 80 Intake and Output for Last 24 Hours 04/20/19 04/21/19 04/22/19 23:59 23:59 23:59 Intake Total 3036.67 / 3336.67 650 / 750 100 / 100 Balance 3036.67 / 3336.67 650 / 750 100 / 100 General: Alert, Oriented x3 Lungs: Normal air movement Cardiovascular: Regular rate, Regular Rhythm Abdomen: Soft, Non Tender Laboratory Results 04/21/19 11:17: POC Glucose 96 04/21/19 15:55: POC Glucose 87 04/21/19 21:54: POC Glucose 82 04/22/19 06:58: POC Glucose 75 Current Medications Acetaminophen (Tylenol) 650 mg PO Q6H PRN PRN PRN Reason: Pain Score 1-3/Temp > 100.7 F Last Admin: 04/19/19 08:10 Dose: 650 mg Documented by: Dextrose (D50w Syringe) 0 gm IV X1 PRN; Protocol PRN Reason: Hypoglycemia Last Admin: 04/16/19 03:06 Dose: 12.5 gm Documented by: Glucagon () 1 mg IM .X1 PRN PRN Reason: Hypoglycemia Heparin Sodium (Porcine) (Heparin Na) 5,000 unit SC Q8 STEPHANIE Last Admin: 04/22/19 06:54 Dose: Not Given Documented by: Sodium Chloride () 250 mls @ 15 mls/hr IV .[id number] PRN PRN Reason: Saline Flush Last Infusion: 04/19/19 10:40 Dose: Infused Documented by: Insulin Human Lispro (Humalog Kwikpen (Bkc)) 0 unit SC ACHS STEPHANIE; Protocol Last Admin: 04/22/19 07:41 Dose: Not Given Documented by: Melatonin (Melatonin) 3 mg PO QHS PRN PRN PRN Reason: INSOMNIA Morphine Sulfate () 1 mg IV Q4H PRN PRN PRN Reason: Pain Score 6-10/10 Last Admin: 04/19/19 14:19 Dose: 1 mg Documented by: Ondansetron HCl (Zofran) 4 mg IV Q8H PRN PRN PRN Reason: NAUSEA/VOMITING Last Admin: 04/19/19 14:19 Dose: 4 mg Documented by: Pantoprazole Sodium (Protonix) 40 mg PO DAILY [facility] Last Admin: 04/21/19 07:59 Dose: 40 mg Documented by: Sodium Chloride () 10 - 40 ml IV UD PRN PRN Reason: SALINE FLUSH Last Admin: 04/20/19 21:34 Dose: 10 ml Documented by: Sucralfate (Carafate) 1 gm PO 1HR_ACHS [facility] Last Admin: 04/22/19 06:54 Dose: 1 gm Documented by: Medical Necessity - Tobacco Use Smoking Status: Never smoker Tobacco Use: Non-smoker Assessment/Plan All Active Problems (Last Reviewed 11/08/18 @ 13:43 by Alan Valencia MD) Gallbladder sludge (Acute) Right upper quadrant pain (Acute) Umbilical hernia without obstruction or gangrene (Acute) Abdominal pain (Acute) Bile duct obstruction (Acute) Pancreatitis (Acute) Decubitus ulcer of left buttock, stage 2 (Acute) Pressure ulcer of right buttock, stage 3 (Acute) Cellulitis of left leg (Resolved) Ulcer (Resolved) Non-pressure chronic ulcer of left calf with fat layer exposed (Resolved) Non-pressure chronic ulcer of left ankle with fat layer exposed (Resolved) 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 (Resolved) 78-year-old female with pancreatitis 1. The patient seems to be doing better with full liquids. She is not having any epigastric pain. The patient may be having gastric outlet obstruction from his pancreatitis. He is tolerating full liquids and I would recommend discharge home on full liquids and she can follow-up with me in 2 weeks and we will try to advance diet as an outpatient. Spencer Estevez MD Pager: [facility] [address] [place] [address], [address] [place] [address] Office:
[2019-04-22] MEDS: Pantoprazole Sodium 40 MG Tablet PO (09:10)
--- NOTE | 2019-04-23 12:50 | CASEMGMT ---
NOAH CM Discharge Follow-up Phone Call: PAN: Sandra Strata: 4 Call Date: 04/23/19 Discharge Date: 04/22/19 Time of Call: 1130 & 1245 ? Admitting Diagnosis: Pancreatitis Discharge follow-up call placed to patient. Pt states she has been doing well since discharge. Rates her pain a 1-2 on the pain scale. States she has been able to get around her home without difficulty. Tolerated scrambled eggs, 1/2 cup of honey nut cheerios with a tiny bit of milk, and some tea for breakfast. Pt states her legs had become swollen while in the hospital but states she was up throughout the night with frequent urination and they look improved this morning. They remain slightly swollen and she plans to take her fluid pill after she has run some errands today. Reviewed appointments. Pt states she cancelled her appointment with the [facility] for this afternoon as she did not feel she needed to be seen so soon after discharge. She has an appointment with the [facility] for 05/20 with lab work to be obtained the week prior to the appointment. She is aware of the wound center appointment and plans to attend. Discussed buttock wound. Pt states she removed the dressing with her shower last evening and is applying udder cream with a panty liner cover. States she is fearful of using the cream provided as it is thick and difficult to remove. She feels this will make it difficult for the provider to see her wound at the wound center on . Discussed with wound RN Ebony and either product is acceptable at this time. Communicated this to pt who plans to continue to apply the udder cream at least 2 times a day. Pt denied any other questions or concerns since discharge. No additional needs identified. Radha Cortes RN
== END 2019-04-22 11:06 | disposition home or self-care (01) | DRG 438 ==
LOC: ED 16:19 → MS3 17:28
PROVIDERS: Surgery; Admitting Provider Internal Medicine; Emergency Provider Emergency Medicine; Family Provider Nurse Practitioner; PCP Nurse Practitioner; Visit Provider Internal Medicine
PROC: 0FC98ZZ Extirpation of Matter from Common Bile Duct, Via Natural or Artificial Opening Endoscopic (ICD-10-PCS; CPT 43260; principal; 2019-04-16 11:30)
DX: K85.10 Biliary acute pancreatitis without necrosis or infection (principal); K83.1 Obstruction of bile duct; K83.8 Other specified diseases of biliary tract; E66.9 Obesity, unspecified; K82.8 Other specified diseases of gallbladder; L89.322 Pressure ulcer of left buttock, stage 2; I10 Essential (primary) hypertension; K21.9 Gastro-esophageal reflux disease without esophagitis; E78.00 Pure hypercholesterolemia, unspecified; Z90.49 Acquired absence of other specified parts of digestive tract; K44.9 Diaphragmatic hernia without obstruction or gangrene; Z68.35 Body mass index [BMI] 35.0-35.9, adult; I25.10 Atherosclerotic heart disease of native coronary artery without angina pectoris; M19.90 Unspecified osteoarthritis, unspecified site; Z86.718 Personal history of other venous thrombosis and embolism
CPT/HCPCS: 36415; 74177; 74328; 76000; 80048; 80053; 80076; 82248; 82962; 83690; 84484; 85025; 93005; 97802; 97803; 99284; J7030; J7040; J7050; J7120; Q9967; A4216; J2405

== ENCOUNTER 2019-07-04 09:46 | Outpatient (RCR) | payer MEDICARE, OTHER, SELFPAY ==
[2019-04-17 12:56] VITALS: BMI 35.3
[2019-07-04 10:44] VITALS: BP 156/51; PULSE 71; RESP 16; TEMP 36.5; BMI 33.8
--- NOTE | 2019-07-04 12:23 | HP.PCM_ITS ---
(1) Decubitus ulcer of left buttock, stage 3 Status: Chronic Current Visit: Yes Code(s): L89.323 - Pressure ulcer of left buttock, stage 3 (2) Type 2 diabetes mellitus Status: Chronic Current Visit: Yes Code(s): E11.9 - Type 2 diabetes mellitus without complications History of Present Illness Date of Service: 07/04/19 Chief Complaint: Non healing left buttock ulcer History of Wound: Ms. Soares is an 79-year-old who presents to the wound center due to nonhealing left buttock ulcer. Has been seen at the wound center for this however current episode said to have started in April during recent hospital stay. Due to her chronic back pain, patient states that she stays seated most of the time. During her hospital stay, ulcer improved with Milena however since discharge home and due to being largely sedentary, it reopened. She has tried bacitracin ointment, gauze and other ointments without any significant improvement. She denies fecal contamination. She feels well otherwise at this time denies chills, fever or change in bowel habit. 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) Mild Failure to thrive (Chronic) Positional vertigo (Chronic) Obesity (Chronic) Hx of venous thrombosis and embolism (Chronic) history of cellulitis of leg (Chronic) Leg swelling (Chronic) Hyperpigmentation of skin (Chronic) Lipodermatosclerosis (Chronic) 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) Localized edema (Chronic) 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) Generalized weakness (Chronic) Chronic venous hypertension (idiopathic) with ulcer of left lower 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) Type 2 diabetes mellitus (Chronic) Surgical History: - Allergies/Adverse Reactions: Allergies ezetimibe [From Zetia] Allergy (Verified 05/01/19 09:54) Itching lisinopril Allergy (Verified 05/01/19 09:54) Other cough neomycin [Neomycin] Allergy (Verified 05/01/19 09:54) Unknown neomycin sulfate [From Neosporin ([id number])] Allergy (Verified 05/01/19 09:54) Itching polymyxin B [Polymyxin B] Allergy (Verified 05/01/19 09:54) Unknown Sulfa (Sulfonamide Antibiotics) Allergy (Verified 05/01/19 09:54) Unknown tetracycline [Tetracycline] Allergy (Verified 05/01/19 09:54) Itching adhesive tape Adverse Reaction (Severe, Verified 05/01/19 09:54) Unknown atorvastatin calcium [From Lipitor] Adverse Reaction (Verified 05/01/19 09:54) Pain in joints Home Medications: Ambulatory Orders Medication Instructions Recorded Famotidine [Pepcid] 20 mg PO BID 01/15/17 Irbesartan [Avapro] 75 mg PO DAILY 01/15/17 cyanocobalamin (vitamin B-12) 1,000 mcg PO DAILY 09/21/17 1,000 mcg/mL oral drops Cholecalciferol (Vitamin D3) 2,000 unit PO DAILY 04/15/19 [Vitamin D3] Sucralfate [Carafate] 2 gm PO DAILY 07/04/19 Vitamin B Complex 1 ea PO DAILY 07/04/19 - Family History Maternal Family History: Family History (Last Reviewed 05/01/19 @ 10:14 by Myrna Bowers) Mother CAD (coronary artery disease) Myocardial infarction Son Hypertension Brother Aortic aneurysm Father Diabetes Heart disease Heart Disease, - Paternal Family History: Family History (Last Reviewed 05/01/19 @ 10:14 by Myrna Bowers) Mother CAD (coronary artery disease) Myocardial infarction Son Hypertension Brother Aortic aneurysm Father Diabetes Heart disease Diabetes Smoking Status: Never smoker Review of Systems Constitutional: Denies: Anorexia, Chills, Fever Eyes: Denies: Pain, Redness HEENT: Denies: Difficulty Swallowing Cardiovascular: Denies: Chest Pain, Chest Pressure Gastrointestinal: Denies: Hematemesis, Vomiting Skin: Reports: Jaundice - Physical Exam Vital Signs Temp Pulse Resp BP 97.7 F L 71 16 156/51 H 07/04/19 10:44 07/04/19 10:44 07/04/19 10:44 07/04/19 10:44 General: Alert, Oriented x3, Cooperative, No apparent distress HEENT: Atraumatic, Normocephalic Oral: Moist Mucosa Neck: Supple Lungs: Normal air movement Cardiovascular: Regular rate, Regular Rhythm, Normal S1, Normal S2 Abdomen: Soft Extremities: No cyanosis Skin: Ulcer/ Wound Wound Measurements and Assessment WC - Nurse 1 - General Ulcer Measurement Start: 07/04/19 09:54 Freq: Status: Active Protocol: Activity Type Activity Date Activity User E-Sign Co-Sign Detail Recorded Client Recorded Date Recorded By Document 07/04/19 10:44 JF [id number] 07/04/19 10:47 [email or web address] 07/04/19 10:44 Wound Center Nurse 1 [Ulcer Assessment] 4-left buttucks -Combined with other wound No -Current Size (cm) - Length 1.2 -Current Size (cm) - Width 0.7 -Current Size (cm) - Depth 0.2 -Total Square Cm 0.84 -Photo Taken Yes -Epithelialization Small 1-33% -Tunneling No -Undermining/Tunneling No -Circular Undermining No -Classification - Pressure Ulcer Stage 2 -Exudate Amt Small -Exudate Type Serosanguineous -Wound Margin Flat & Intact -Granulation Amt Medium (34-66%) -Granulation Quality Red -Slough/Fibrin Yes -Necrosis Amt Small (1-33%) -Necrotic Tissue Type Adherent Slough -Structure Exposed N/A -Texture (Leslye-wound Skin Appearance) Assessed, Excoriation -Moisture (Leslye-wound Skin Appearance Assessed,Dry/ ) Scaly -Color (Leslye-wound Skin Appearance) Assessed -Temperature (Leslye-wound Skin No Abnormality Appearance) (Pt Warm) -Tenderness on Palpation (Leslye-wound No Skin Appearance) -Ulcer Cleansing Rinsed/ Irrigated with Saline -Foul Odor after Cleansing No -Anesthetic Used 5% Lidocaine Gel [Edema Assessment] -Lower Limb Edema Present NA WC - Nurse 2 - General Ulcer CM Notes Start: 07/04/19 09:54 Freq: Status: Active Protocol: Activity Type Activity Date Activity User E-Sign Co-Sign Detail Recorded Client Recorded Date Recorded By Document 01/30/20 10:38 MW [id number] 07/04/19 10:46 MW 07/04/19 10:38 Wound Center Nurse 2 [Procedure/Treatment] #4 left buttock -Time 10:40 -Correct Patient Yes -Correct Side, Site, Position Yes -Correct Procedure Yes -Procedure Performed Yes -Type of Procedure Debridement -Clinical Debridement Subcutaneous -Post Debridement Size (cm) - Length 1.2 -Post Debridement Size (cm) - Width 1.0 -Post Debridement Size (cm) - Depth 0.1 -Total Square Cm 1.20 -Wound/Ulcer Outcome Not Healed -Ulcer Cleansing Rinsed/ Irrigated with Saline -Foul Odor after Cleansing No -Bioengineered Tissue No -Bleeding Controlled with Pressure -Offloading No -Treatment Response Procedure Tolerated Well [See Physician Procedure note for Specifics] Pain Scale: 0-10 Numeric [Pain] -Is Patient Pain Free? Yes Musculoskeletal: No Muscle Wasting Neurological: Cranial nerves II-XII grossly intact Debridement Note Post-Debridement Measurements/Treatment WC - Nurse 2 - General Ulcer CM Notes Start: 07/04/19 09:54 Freq: Status: Active Protocol: Activity Type Activity Date Activity User E-Sign Co-Sign Detail Recorded Client Recorded Date Recorded By Document 07/04/19 10:38 MW [id number] 07/04/19 10:46 MW 07/04/19 10:38 Wound Center Nurse 2 #4 left buttock -Time 10:40 -Correct Patient Yes -Correct Side, Site, Position Yes -Correct Procedure Yes -Procedure Performed Yes -Type of Procedure Debridement -Clinical Debridement Subcutaneous -Post Debridement Size (cm) - Length 1.2 -Post Debridement Size (cm) - Width 1.0 -Post Debridement Size (cm) - Depth 0.1 -Total Square Cm 1.20 -Wound/Ulcer Outcome Not Healed -Ulcer Cleansing Rinsed/ Irrigated with Saline -Foul Odor after Cleansing No -Bioengineered Tissue No -Bleeding Controlled with Pressure -Offloading No -Treatment Response Procedure Tolerated Well Pain Scale: 0-10 Numeric Is Patient Pain Free? Yes Wound debrided: Left buttock Wound Grade/Stage: Stage III Type of Debridement: Excisional debridement Anesthesia Used: 4% Lidocaine Solution Depth: Down to and including healthy tissue, in the subcutaneous layer Percentage of wound debrided: 100 Instrument Used: 3mm curette Tissue Removed: Slough and devitalized tissue Severity: Fat Layer Exposed Amount of bleeding with debridement: Mild Bleeding Controlled with: Pressure Patient tolerated procedure well Assessment/Plan Active Problems (Last Reviewed 05/01/19 @ 10:14 by Myrna Bowers) Decubitus ulcer of left buttock, stage 3 (Chronic) Type 2 diabetes mellitus (Chronic) Assessment: Nonhealing/recurrent left buttock ulcer stage III. Plan: Debridement done as documented above. Procedure was well-tolerated. Culture taken. Milena with Optifoam over top. Change every other day. Offloading very strongly recommended. Increased protein intake also recommended. She does need a new cushion for her chair, prescription was given. Last A1c at 5.1, continue lifestyle and dietary modification for optimal diabetes control. Her questions were answered and she was advised to call with any further questions or concerns. Follow-up in a week. This note was generated with nprogress dictation software. It may contain incorrect words, spelling, and punctuation that were not noted in checking the note before signing. Multi Select Codes - Visit Charges Office Visit/Consults: 70667 OV L3 Est - Integumentary Integumentary CPT Codes: 54335 Yasmeen subq tissue 20 sq cm/<
== END 2019-07-05 23:59 ==
LOC: WC 09:46
PROVIDERS: PCP Nurse Practitioner; Referring Provider Internal Medicine; Visit Provider Internal Medicine
DX: L89.323 Pressure ulcer of left buttock, stage 3 (principal); I10 Essential (primary) hypertension; E78.00 Pure hypercholesterolemia, unspecified; K21.9 Gastro-esophageal reflux disease without esophagitis; M19.90 Unspecified osteoarthritis, unspecified site; I25.10 Atherosclerotic heart disease of native coronary artery without angina pectoris; E11.59 Type 2 diabetes mellitus with other circulatory complications
CPT/HCPCS: 11042; 87070; 87075; 87077; 87186; 87205; 99213; G0463

== ENCOUNTER 2019-08-01 11:00 | Outpatient (RCR) | payer MEDICARE, OTHER, SELFPAY ==
[2019-07-06 01:18] VITALS: BP 156/51; PULSE 71; RESP 16; TEMP 36.5
[2019-07-11 09:37] VITALS: BP 175/71; PULSE 83; RESP 16; BMI 33.8
--- NOTE | 2019-07-11 10:41 | PN.PCM_ITS ---
(1) Type 2 diabetes mellitus Status: Chronic Current Visit: No Code(s): E11.9 - Type 2 diabetes mellitus without complications (2) Decubitus ulcer of left buttock, stage 3 Status: Chronic Current Visit: Yes Code(s): L89.323 - Pressure ulcer of left buttock, stage 3 Type of Wound Date of Service: 07/11/19 Chief Complaint: Non healing left buttock ulcer History of Wound: Ms. Soares is an 79-year-old who presents to the wound center due to nonhealing left buttock ulcer. Has been seen at the wound center for this however current episode said to have started in April during recent hospital stay. Due to her chronic back pain, patient states that she stays seated most of the time. During her hospital stay, ulcer improved with Milena however since discharge home and due to being largely sedentary, it reopened. She has tried bacitracin ointment, gauze and other ointments without any significant improvement. She denies fecal contamination. She feels well otherwise at this time denies chills, fever or change in bowel habit. Progress of Wound: Improving, no new concerns at this time. - Physical Exam Vital Signs Temp Pulse Resp BP 97.7 F L 83 16 175/71 H 07/06/19 01:18 07/11/19 09:37 07/11/19 09:37 07/11/19 09:37 General: Alert, Oriented x3, Cooperative, No apparent distress HEENT: Atraumatic, Normocephalic Oral: Moist Mucosa Neck: Supple Lungs: Normal air movement Skin: Ulcer/ Wound Wound Measurements and Assessment WC - Nurse 1 - General Ulcer Measurement Start: 07/11/19 09:37 Freq: Status: Active Protocol: Activity Type Activity Date Activity User E-Sign Co-Sign Detail Recorded Client Recorded Date Recorded By Document 07/11/19 09:37 [facility] [id number] 07/11/19 09:46 [facility] 07/11/19 09:37 Wound Center Nurse 1 [Ulcer Assessment] 4-left buttucks -Combined with other wound No -Current Size (cm) - Length 1 -Current Size (cm) - Width 0.4 -Current Size (cm) - Depth 0.1 -Total Square Cm 0.4 -Photo Taken No -Epithelialization None Present -Tunneling No -Undermining/Tunneling No -Circular Undermining No -Exudate Amt Small -Exudate Type Serosanguineous -Wound Margin Flat & Intact -Granulation Amt Small (1-33%) -Granulation Quality Red -Slough/Fibrin Yes -Necrosis Amt Medium (34-66%) -Necrotic Tissue Type Adherent Slough -Texture (Leslye-wound Skin Appearance) Assessed, Excoriation, Scarring -Moisture (Leslye-wound Skin Appearance Assessed,Dry/ ) Scaly -Color (Leslye-wound Skin Appearance) Assessed, Erythema -Temperature (Leslye-wound Skin No Abnormality Appearance) (Pt Warm) -Tenderness on Palpation (Leslye-wound No Skin Appearance) -Ulcer Cleansing Rinsed/ Irrigated with Saline -Foul Odor after Cleansing No -Anesthetic Used 5% Lidocaine Gel WC - Nurse 2 - General Ulcer CM Notes Start: 07/11/19 09:37 Freq: Status: Active Protocol: Activity Type Activity Date Activity User E-Sign Co-Sign Detail Recorded Client Recorded Date Recorded By Document 07/11/19 10:24 MW [id number] 07/11/19 10:32 MW 07/11/19 10:24 Wound Center Nurse 2 [Procedure/Treatment] -Time 10:24 -Correct Patient Yes -Correct Side, Site, Position Yes -Correct Procedure Yes -Procedure Performed Yes -Type of Procedure Debridement -Clinical Debridement Subcutaneous -Post Debridement Size (cm) - Length 0.9 -Post Debridement Size (cm) - Width 0.4 -Post Debridement Size (cm) - Depth 0.1 -Total Square Cm 0.36 -Wound/Ulcer Outcome Not Healed -Ulcer Cleansing Rinsed/ Irrigated with Saline -Foul Odor after Cleansing No -Bioengineered Tissue No -Bleeding Controlled with Pressure -Offloading No -Treatment Response Procedure Tolerated Well [See Physician Procedure note for Specifics] Pain Scale: 0-10 Numeric [Pain] -Is Patient Pain Free? Yes Musculoskeletal: No Muscle Wasting Neurological: Cranial nerves II-XII grossly intact Psych/Mental Status: Normal Affect Debridement Note Post-Debridement Measurements/Treatment WC - Nurse 2 - General Ulcer CM Notes Start: 07/11/19 09:37 Freq: Status: Active Protocol: Activity Type Activity Date Activity User E-Sign Co-Sign Detail Recorded Client Recorded Date Recorded By Document 07/11/19 10:24 MW [id number] 07/11/19 10:32 MW 07/11/19 10:24 Wound Center Nurse 2 4-left buttucks -Time 10:24 -Correct Patient Yes -Correct Side, Site, Position Yes -Correct Procedure Yes -Procedure Performed Yes -Type of Procedure Debridement -Clinical Debridement Subcutaneous -Post Debridement Size (cm) - Length 0.9 -Post Debridement Size (cm) - Width 0.4 -Post Debridement Size (cm) - Depth 0.1 -Total Square Cm 0.36 -Wound/Ulcer Outcome Not Healed -Ulcer Cleansing Rinsed/ Irrigated with Saline -Foul Odor after Cleansing No -Bioengineered Tissue No -Bleeding Controlled with Pressure -Offloading No -Treatment Response Procedure Tolerated Well Pain Scale: 0-10 Numeric Is Patient Pain Free? Yes Wound debrided: Left Buttock Wound Grade/Stage: Stage III Type of Debridement: Excisional debridement Anesthesia Used: 4% Lidocaine Solution Depth: Down to and including healthy tissue, in the subcutaneous layer Percentage of wound debrided: 100 Instrument Used: 3mm curette Tissue Removed: Slough and devitalized tissue Severity: Fat Layer Exposed Amount of bleeding with debridement: Mild Bleeding Controlled with: Pressure Patient tolerated procedure well Assessment/Plan Active Problems (Last Reviewed 05/01/19 @ 10:14 by Myrna Bowers) Decubitus ulcer of left buttock, stage 3 (Chronic) Assessment: Nonhealing/recurrent left buttock ulcer stage III. Plan: Debridement done as documented above. Procedure was well-tolerated. Culture with no significant growth and ulcer size is improving. Continue Milena with adaptic and optifoam over top. Change every other day. Offloading very strongly recommended. Increased protein intake also recommended. She does need a new cushion for her chair, prescription was given. Last A1c at 5.1, continue lifestyle and dietary modification for optimal diabetes control. Her questions were answered and she was advised to call with any further questions or concerns. Follow-up in a week. This note was generated with [employer]toViva[employer] software. It may contain incorrect words, spelling, and punctuation that were not noted in checking the note before signing. Code Visit 111xxx-113xx: 38684 Yasmeen subq tissue 20 sq cm/<
[2019-07-25 10:31] VITALS: BP 170/60; PULSE 64; RESP 16; TEMP 36.4; BMI 33.8
[2019-08-01 11:44] VITALS: BP 178/61; PULSE 66; RESP 18; TEMP 36.4; BMI 33.8
--- NOTE | 2019-08-01 13:17 | PN.PCM_ITS ---
(1) Type 2 diabetes mellitus Status: Chronic Current Visit: No Code(s): E11.9 - Type 2 diabetes mellitus without complications (2) Decubitus ulcer of left buttock, stage 3 Status: Chronic Current Visit: Yes Code(s): L89.323 - Pressure ulcer of left buttock, stage 3 Type of Wound Date of Service: 08/01/19 Chief Complaint: Non healing left buttock ulcer History of Wound: Ms. Soares is an 79-year-old who presents to the wound center due to nonhealing left buttock ulcer. Has been seen at the wound center for this however current episode said to have started in April during recent hospital stay. Due to her chronic back pain, patient states that she stays seated most of the time. During her hospital stay, ulcer improved with Milena however since discharge home and due to being largely sedentary, it reopened. She has tried bacitracin ointment, gauze and other ointments without any significant improvement. She denies fecal contamination. She feels well otherwise at this time denies chills, fever or change in bowel habit. Progress of Wound: Improving, no new concerns at this time. - Physical Exam Vital Signs Temp Pulse Resp BP 97.5 F L 66 18 178/61 H 08/01/19 11:44 08/01/19 11:44 08/01/19 11:44 08/01/19 11:44 General: Alert, Oriented x3, Cooperative, No apparent distress HEENT: Atraumatic Oral: Moist Mucosa Neck: Supple Lungs: Normal air movement Extremities: No cyanosis Skin: Ulcer/ Wound Wound Measurements and Assessment WC - Nurse 1 - General Ulcer Measurement Start: 07/11/19 09:37 Freq: Status: Active Protocol: Activity Type Activity Date Activity User E-Sign Co-Sign Detail Recorded Client Recorded Date Recorded By Document 08/01/19 11:44 RB [id number] 08/01/19 11:46 RB 08/01/19 11:44 Wound Center Nurse 1 [Ulcer Assessment] 4-left buttucks -Combined with other wound No -Current Size (cm) - Length 0.2 -Current Size (cm) - Width 0.2 -Current Size (cm) - Depth 0.1 -Total Square Cm 0.04 -Tunneling No -Undermining/Tunneling No -Circular Undermining No -Exudate Amt Small -Exudate Type Serosanguineous -Wound Margin Flat & Intact -Granulation Amt Medium (34-66%) -Granulation Quality [place] -Slough/Fibrin Yes -Necrosis Amt Small (1-33%) -Necrotic Tissue Type Adherent Slough -Structure Exposed N/A -Texture (Leslye-wound Skin Appearance) Assessed -Moisture (Lesley-wound Skin Appearance Assessed ) -Color (Leslye-wound Skin Appearance) Hemosiderin Staining -Temperature (Leslye-wound Skin No Abnormality Appearance) (Pt Warm) -Tenderness on Palpation (Leslye-wound No Skin Appearance) -Ulcer Cleansing Wound Cleanser -Foul Odor after Cleansing No -Anesthetic Used 5% Lidocaine Gel WC - Nurse 2 - General Ulcer CM Notes Start: 07/11/19 09:37 Freq: Status: Active Protocol: Activity Type Activity Date Activity User E-Sign Co-Sign Detail Recorded Client Recorded Date Recorded By Document 08/01/19 12:32 MW [id number] 08/01/19 12:32 MW 08/01/19 12:32 Wound Center Nurse 2 [Procedure/Treatment] -Time 12:32 -Correct Patient Yes -Correct Side, Site, Position Yes -Correct Procedure Yes -Procedure Performed Yes -Type of Procedure Debridement -Clinical Debridement Subcutaneous -Post Debridement Size (cm) - Length 0.3 -Post Debridement Size (cm) - Width 0.3 -Post Debridement Size (cm) - Depth 0.1 -Total Square Cm 0.09 -Wound/Ulcer Outcome Not Healed -Ulcer Cleansing Rinsed/ Irrigated with Saline -Foul Odor after Cleansing No -Bioengineered Tissue No -Bleeding Controlled with Pressure -Offloading No -Treatment Response Procedure Tolerated Well [See Physician Procedure note for Specifics] Pain Scale: 0-10 Numeric [Pain] -Is Patient Pain Free? Yes Musculoskeletal: No Muscle Wasting Neurological: Cranial nerves II-XII grossly intact Psych/Mental Status: Normal Affect Debridement Note Post-Debridement Measurements/Treatment WC - Nurse 2 - General Ulcer CM Notes Start: 07/11/19 09:37 Freq: Status: Active Protocol: Activity Type Activity Date Activity User E-Sign Co-Sign Detail Recorded Client Recorded Date Recorded By Document 07/11/19 10:24 MW [id number] 07/11/19 10:32 MW Document 07/25/19 11:01 MW [id number] 07/25/19 11:04 MW Document 08/01/19 12:32 MW [id number] 08/01/19 12:32 MW 07/11/19 07/25/19 08/01/19 10:24 11:01 12:32 Wound Center Nurse 2 4-left buttucks -Time 10:24 11:01 12:32 -Correct Patient Yes Yes Yes -Correct Side, Site, Position Yes Yes Yes -Correct Procedure Yes Yes Yes -Procedure Performed Yes Yes Yes -Type of Procedure Debridement Debridement Debridement -Clinical Debridement Subcutaneous Subcutaneous Subcutaneous -Post Debridement Size (cm) - Length 0.9 1.0 0.3 -Post Debridement Size (cm) - Width 0.4 0.4 0.3 -Post Debridement Size (cm) - Depth 0.1 0.1 0.1 -Total Square Cm 0.36 0.40 0.09 -Wound/Ulcer Outcome Not Healed Not Healed Not Healed -Ulcer Cleansing Rinsed/ Rinsed/ Rinsed/ Irrigated with Irrigated with Irrigated with Saline Saline Saline -Foul Odor after Cleansing No No No -Bioengineered Tissue No No No -Bleeding Controlled with Pressure Pressure Pressure -Offloading No No No -Treatment Response Procedure Procedure Procedure Tolerated Well Tolerated Well Tolerated Well Pain Scale: 0-10 Numeric Is Patient Pain Free? Yes Yes Yes Wound debrided: Left Buttock Wound Grade/Stage: Stage II Type of Debridement: Selective debridement Anesthesia Used: 4% Lidocaine Solution Depth: Down to and including healthy tissue, in the subcutaneous layer Percentage of wound debrided: 100 Instrument Used: - - 1mm Tissue Removed: Devitalized tissue Severity: Limited To Skin Breakdown Amount of bleeding with debridement: Mild Bleeding Controlled with: Pressure Patient tolerated procedure well Assessment/Plan Active Problems (Last Reviewed 05/01/19 @ 10:14 by Myrna Bowers) Decubitus ulcer of left buttock, stage 3 (Chronic) Assessment: Nonhealing/recurrent left buttock ulcer stage III. Plan: Debridement done as documented above. Procedure was well-tolerated. Continue Milena with adaptic and guaze over top. Change daily. Offloading very strongly recommended. Increased protein intake also recommended. Last A1c at 5.1, continue lifestyle and dietary modification for optimal diabetes control. Her questions were answered and she was advised to call with any further questions or concerns. Follow-up in a week. This note was generated with Dragon dictation software. It may contain incorrect words, spelling, and punctuation that were not noted in checking the note before signing. Code Visit 111xxx-113xx: 13364 Yasmeen subq tissue 20 sq cm/< - Selective debridement done.
--- NOTE | 2019-08-01 13:23 | PCM.WC.PN ---
(1) Type 2 diabetes mellitus Status: Chronic Current Visit: No Code(s): E11.9 - Type 2 diabetes mellitus without complications (2) Decubitus ulcer of left buttock, stage 3 Status: Chronic Current Visit: Yes Code(s): L89.323 - Pressure ulcer of left buttock, stage 3 Type of Wound Date of Service: 07/25/19 Chief Complaint: Non healing left buttock ulcer History of Wound: Ms. Soares is an 79-year-old who presents to the wound center due to nonhealing left buttock ulcer. Has been seen at the wound center for this however current episode said to have started in April during recent hospital stay. Due to her chronic back pain, patient states that she stays seated most of the time. During her hospital stay, ulcer improved with Nahomi however since discharge home and due to being largely sedentary, it reopened. She has tried bacitracin ointment, gauze and other ointments without any significant improvement. She denies fecal contamination. She feels well otherwise at this time denies chills, fever or change in bowel habit. Progress of Wound: Late entry note. Entered on 08/01/19 for Visit on 07/25/19. Surrounding superficial skin tear. Has not applied nahomi to ulcer in over a week. Been applying A and D ointment. - Physical Exam Vital Signs Temp Pulse Resp BP 97.5 F L 66 18 178/61 H 08/01/19 11:44 08/01/19 11:44 08/01/19 11:44 08/01/19 11:44 General: Alert, Oriented x3, Cooperative, No apparent distress HEENT: Atraumatic, Normocephalic Oral: Moist Mucosa Neck: Supple Lungs: Normal air movement Skin: Ulcer/ Wound Wound Measurements and Assessment WC - Nurse 1 - General Ulcer Measurement Start: 07/11/19 09:37 Freq: Status: Active Protocol: Activity Type Activity Date Activity User E-Sign Co-Sign Detail Recorded Client Recorded Date Recorded By Document 08/01/19 11:44 RB [id number] 08/01/19 11:46 RB 08/01/19 11:44 Wound Center Nurse 1 [Ulcer Assessment] 4-left buttucks -Combined with other wound No -Current Size (cm) - Length 0.2 -Current Size (cm) - Width 0.2 -Current Size (cm) - Depth 0.1 -Total Square Cm 0.04 -Tunneling No -Undermining/Tunneling No -Circular Undermining No -Exudate Amt Small -Exudate Type Serosanguineous -Wound Margin Flat & Intact -Granulation Amt Medium (34-66%) -Granulation Quality [place] -Slough/Fibrin Yes -Necrosis Amt Small (1-33%) -Necrotic Tissue Type Adherent Slough -Structure Exposed N/A -Texture (Leslye-wound Skin Appearance) Assessed -Moisture (Leslye-wound Skin Appearance Assessed ) -Color (Leslye-wound Skin Appearance) Hemosiderin Staining -Temperature (Leslye-wound Skin No Abnormality Appearance) (Pt Warm) -Tenderness on Palpation (Leslye-wound No Skin Appearance) -Ulcer Cleansing Wound Cleanser -Foul Odor after Cleansing No -Anesthetic Used 5% Lidocaine Gel WC - Nurse 2 - General Ulcer CM Notes Start: 07/11/19 09:37 Freq: Status: Active Protocol: Activity Type Activity Date Activity User E-Sign Co-Sign Detail Recorded Client Recorded Date Recorded By Document 08/01/19 12:32 MW [id number] 08/01/19 12:32 MW 08/01/19 12:32 Wound Center Nurse 2 [Procedure/Treatment] -Time 12:32 -Correct Patient Yes -Correct Side, Site, Position Yes -Correct Procedure Yes -Procedure Performed Yes -Type of Procedure Debridement -Clinical Debridement Subcutaneous -Post Debridement Size (cm) - Length 0.3 -Post Debridement Size (cm) - Width 0.3 -Post Debridement Size (cm) - Depth 0.1 -Total Square Cm 0.09 -Wound/Ulcer Outcome Not Healed -Ulcer Cleansing Rinsed/ Irrigated with Saline -Foul Odor after Cleansing No -Bioengineered Tissue No -Bleeding Controlled with Pressure -Offloading No -Treatment Response Procedure Tolerated Well [See Physician Procedure note for Specifics] Pain Scale: 0-10 Numeric [Pain] -Is Patient Pain Free? Yes Neurological: Cranial nerves II-XII grossly intact Psych/Mental Status: Normal Affect Debridement Note Post-Debridement Measurements/Treatment WC - Nurse 2 - General Ulcer CM Notes Start: 07/11/19 09:37 Freq: Status: Active Protocol: Activity Type Activity Date Activity User E-Sign Co-Sign Detail Recorded Client Recorded Date Recorded By Document 02/06/20 10:24 MW [id number] 07/11/19 10:32 MW Document 07/25/19 11:01 MW [id number] 07/25/19 11:04 MW Document 08/01/19 12:32 MW [id number] 08/01/19 12:32 MW 07/11/19 07/25/19 08/01/19 10:24 11:01 12:32 Wound Center Nurse 2 4-left buttucks -Time 10:24 11:01 12:32 -Correct Patient Yes Yes Yes -Correct Side, Site, Position Yes Yes Yes -Correct Procedure Yes Yes Yes -Procedure Performed Yes Yes Yes -Type of Procedure Debridement Debridement Debridement -Clinical Debridement Subcutaneous Subcutaneous Subcutaneous -Post Debridement Size (cm) - Length 0.9 1.0 0.3 -Post Debridement Size (cm) - Width 0.4 0.4 0.3 -Post Debridement Size (cm) - Depth 0.1 0.1 0.1 -Total Square Cm 0.36 0.40 0.09 -Wound/Ulcer Outcome Not Healed Not Healed Not Healed -Ulcer Cleansing Rinsed/ Rinsed/ Rinsed/ Irrigated with Irrigated with Irrigated with Saline Saline Saline -Foul Odor after Cleansing No No No -Bioengineered Tissue No No No -Bleeding Controlled with Pressure Pressure Pressure -Offloading No No No -Treatment Response Procedure Procedure Procedure Tolerated Well Tolerated Well Tolerated Well Pain Scale: 0-10 Numeric Is Patient Pain Free? Yes Yes Yes Wound debrided: Left Buttock Wound Grade/Stage: Stage II Type of Debridement: Excisional debridement Anesthesia Used: 4% Lidocaine Solution Depth: Down to and including healthy tissue, in the subcutaneous layer Percentage of wound debrided: 100 Instrument Used: 3mm curette Tissue Removed: Slough and devitalized tissue Severity: Fat Layer Exposed Amount of bleeding with debridement: Mild Bleeding Controlled with: Pressure Patient tolerated procedure well Assessment/Plan Active Problems (Last Reviewed 05/01/19 @ 10:14 by Myrna Bowers) Decubitus ulcer of left buttock, stage 3 (Chronic) Assessment: Nonhealing/recurrent left buttock ulcer stage III. Plan: Debridement done as documented above. Procedure was well-tolerated. Advised to stop using A and D ointment. Continue Nahomi with adaptic and guaze over top. Change daily. Offloading very strongly recommended. Increased protein intake also recommended. Last A1c at 5.1, continue lifestyle and dietary modification for optimal diabetes control. Her questions were answered and she was advised to call with any further questions or concerns. Follow-up in a week. This note was generated with [employer] software. It may contain incorrect words, spelling, and punctuation that were not noted in checking the note before signin Code Visit [id number]: [id number] Yasmeen subq tissue 20 sq cm/<
== END 2019-08-03 23:59 ==
LOC: WC 11:00
PROVIDERS: PCP Nurse Practitioner; Referring Provider Internal Medicine; Visit Provider Internal Medicine
DX: L89.323 Pressure ulcer of left buttock, stage 3 (principal); E11.9 Type 2 diabetes mellitus without complications; L89.322 Pressure ulcer of left buttock, stage 2
CPT/HCPCS: 11042; 97597

== ENCOUNTER 2019-08-22 11:15 | Outpatient (RCR) | payer MEDICARE, OTHER, SELFPAY ==
[2019-08-04 00:59] VITALS: BP 178/61; PULSE 66; RESP 18; TEMP 36.4
[2019-08-08 11:15] VITALS: BP 178/67; PULSE 62; RESP 18; TEMP 36.8; BMI 33.8
--- NOTE | 2019-08-08 11:31 | WC ---
Patient requested rail stay down on the bed in case she needs to get to the bathroom real quick. This nurse expressed concern over doing so but patient insisted and stated she would take full responsibilty
--- NOTE | 2019-08-08 13:00 | PN.PCM_ITS ---
(1) Pressure ulcer of right buttock, stage 3 Status: Acute Current Visit: Yes Code(s): L89.313 - Pressure ulcer of right buttock, stage 3 (2) Type 2 diabetes mellitus Status: Chronic Current Visit: Yes Code(s): E11.9 - Type 2 diabetes mellitus without complications Type of Wound Date of Service: 08/08/19 Chief Complaint: Non healing left buttock ulcer History of Wound: Ms. Soares is an 79-year-old who presents to the wound center due to nonhealing left buttock ulcer. Has been seen at the wound center for this however current episode said to have started in April during recent hospital stay. Due to her chronic back pain, patient states that she stays seated most of the time. During her hospital stay, ulcer improved with Milena however since discharge home and due to being largely sedentary, it reopened. She has tried bacitracin ointment, gauze and other ointments without any significant improvement. She denies fecal contamination. She feels well otherwise at this time denies chills, fever or change in bowel habit. Progress of Wound: Superficial/surrounding skin tear noted. - Physical Exam Vital Signs Temp Pulse Resp BP 98.2 F 62 18 178/67 H 08/08/19 11:15 08/08/19 11:15 08/08/19 11:15 08/08/19 11:15 General: Alert, Oriented x3, Cooperative, No apparent distress HEENT: Atraumatic, Normocephalic Oral: Moist Mucosa Neck: Supple Lungs: Normal air movement Extremities: No cyanosis Skin: Ulcer/ Wound Wound Measurements and Assessment WC - Nurse 1 - General Ulcer Measurement Start: 08/08/19 11:14 Freq: Status: Active Protocol: Activity Type Activity Date Activity User E-Sign Co-Sign Detail Recorded Client Recorded Date Recorded By Document 08/08/19 11:15 DV [id number] 08/08/19 11:27 DV 08/08/19 11:15 Wound Center Nurse 1 [Ulcer Assessment] 4-left buttucks -Combined with other wound No -Current Size (cm) - Length 0.2 -Current Size (cm) - Width 0.1 -Current Size (cm) - Depth 0.1 -Total Square Cm 0.02 -Date of Last Picture (Recall this 08/08/19 field) -Photo Taken Yes -Epithelialization None Present -Tunneling No -Undermining/Tunneling No -Circular Undermining No -Exudate Amt None Present -Wound Margin Flat & Intact -Granulation Amt None Present (0 %) -Granulation Quality N/A -Slough/Fibrin No -Necrosis Amt None Present (0 %) -Structure Exposed N/A -Texture (Lesyle-wound Skin Appearance) Assessed, Scarring -Moisture (Leslye-wound Skin Appearance No Abnormality, ) Assessed -Color (Leslye-wound Skin Appearance) Assessed, Erythema -Temperature (Leslye-wound Skin No Abnormality Appearance) (Pt Warm) -Ulcer Cleansing Rinsed/ Irrigated with Saline -Foul Odor after Cleansing No -Anesthetic Used 4% Lidocaine Solution WC - Nurse 2 - General Ulcer CM Notes Start: 08/08/19 11:14 Freq: Status: Active Protocol: Activity Type Activity Date Activity User E-Sign Co-Sign Detail Recorded Client Recorded Date Recorded By Document 08/08/19 11:42 MW [id number] 08/08/19 11:43 MW 08/08/19 11:42 Wound Center Nurse 2 [Procedure/Treatment] -Time 11:42 -Correct Patient Yes -Correct Side, Site, Position Yes -Correct Procedure Yes -Procedure Performed Yes -Type of Procedure Debridement -Clinical Debridement Selective -Post Debridement Size (cm) - Length 0.4 -Post Debridement Size (cm) - Width 0.4 -Post Debridement Size (cm) - Depth 0.1 -Total Square Cm 0.16 -Wound/Ulcer Outcome Not Healed -Ulcer Cleansing Rinsed/ Irrigated with Saline -Foul Odor after Cleansing No -Bioengineered Tissue No -Bleeding Controlled with Pressure -Offloading No -Treatment Response Procedure Tolerated Well [See Physician Procedure note for Specifics] Pain Scale: 0-10 Numeric [Pain] -Is Patient Pain Free? Yes Musculoskeletal: No Muscle Wasting Neurological: Cranial nerves II-XII grossly intact Psych/Mental Status: Normal Affect Debridement Note Post-Debridement Measurements/Treatment - Nurse 2 - General Ulcer CM Notes Start: 08/08/19 11:14 Freq: Status: Active Protocol: Activity Type Activity Date Activity User E-Sign Co-Sign Detail Recorded Client Recorded Date Recorded By Document 08/08/19 11:42 MW [email or web address] 08/08/19 11:43 MW 08/08/19 11:42 Wound Center Nurse 2 4-left buttucks -Time 11:42 -Correct Patient Yes -Correct Side, Site, Position Yes -Correct Procedure Yes -Procedure Performed Yes -Type of Procedure Debridement -Clinical Debridement Selective -Post Debridement Size (cm) - Length 0.4 -Post Debridement Size (cm) - Width 0.4 -Post Debridement Size (cm) - Depth 0.1 -Total Square Cm 0.16 -Wound/Ulcer Outcome Not Healed -Ulcer Cleansing Rinsed/ Irrigated with Saline -Foul Odor after Cleansing No -Bioengineered Tissue No -Bleeding Controlled with Pressure -Offloading No -Treatment Response Procedure Tolerated Well Pain Scale: 0-10 Numeric Is Patient Pain Free? Yes Wound debrided: Right buttock Wound Grade/Stage: Stage 3 Type of Debridement: Selective debridement Depth: Down to and including healthy tissue Percentage of wound debrided: 100 Instrument Used: 3mm curette Tissue Removed: Devitalized tissue Severity: Limited To Skin Breakdown Amount of bleeding with debridement: Mild Bleeding Controlled with: Pressure Patient tolerated procedure well Assessment/Plan Active Problems (Last Reviewed 05/01/19 @ 10:14 by Myrna Bowers) Type 2 diabetes mellitus (Chronic) Pressure ulcer of right buttock, stage 3 (Acute) Assessment: Nonhealing/recurrent left buttock ulcer stage III. Plan: Debridement done as documented above. Procedure was well-tolerated. Continue Milena with adaptic and guaze over top. Tape changed. Change daily. Offloading very strongly recommended. Increased protein intake also recommended. Last A1c at 5.1, continue lifestyle and dietary modification for optimal diabetes control. Her questions were answered and she was advised to call with any further questions or concerns. Follow-up in a week. This note was generated with [employer] software. It may contain incorrect words, spelling, and punctuation that were not noted in checking the note before signing [id number]: [id number] Yasmeen subq tissue 20 sq cm/< - Selective debridement done.
[2019-08-15 13:34] VITALS: BP 178/61; PULSE 76; RESP 18; TEMP 36.4; BMI 33.8
--- NOTE | 2019-08-15 19:22 | PN.PCM_ITS ---
(1) Decubitus ulcer of left buttock, stage 3 Status: Chronic Current Visit: Yes Code(s): L89.323 - Pressure ulcer of left buttock, stage 3 (2) Pressure ulcer of right buttock, stage 3 Status: Acute Current Visit: Yes Code(s): L89.313 - Pressure ulcer of right buttock, stage 3 (3) Type 2 diabetes mellitus Status: Chronic Current Visit: Yes Code(s): E11.9 - Type 2 diabetes mellitus without complications (4) Edema of both legs Status: Chronic Current Visit: No Code(s): R60.0 - Localized edema (5) Essential hypertension Status: Chronic Current Visit: No Code(s): I10 - Essential (primary) hypertension Type of Wound Date of Service: 08/15/19 Chief Complaint: Non healing left buttock ulcer History of Wound: Ms. Soares is an 79-year-old who presents to the wound center due to nonhealing left buttock ulcer. Has been seen at the wound center for this however current episode said to have started in April during recent hospital stay. Due to her chronic back pain, patient states that she stays seated most of the time. During her hospital stay, ulcer improved with Milena however since discharge home and due to being largely sedentary, it reopened. She has tried bacitracin ointment, gauze and other ointments without any significant improvement. She denies fecal contamination. She feels well otherwise at this time denies chills, fever or change in bowel habit. Progress of Wound: right buttock healed, left buttock Superficial/surrounding skin tear noted. - Physical Exam Vital Signs Temp Pulse Resp BP 97.6 F L 76 18 178/61 H 08/15/19 13:34 08/15/19 13:34 08/15/19 13:34 08/15/19 13:34 General: Alert, Oriented x3, Cooperative, No apparent distress HEENT: Atraumatic Oral: Moist Mucosa Lungs: Clear to auscultation, Normal air movement Cardiovascular: Regular rate Abdomen: Soft Extremities: No clubbing, No cyanosis, No edema Skin: Ulcer/ Wound - Left buttock ulceration with adherent slough, no signs of infection at this time Wound Measurements and Assessment WC - Nurse 1 - General Ulcer Measurement Start: 08/08/19 11:14 Freq: Status: Active Protocol: Activity Type Activity Date Activity User E-Sign Co-Sign Detail Recorded Client Recorded Date Recorded By Document 08/15/19 13:34 DV [id number] 08/15/19 13:35 DV 08/15/19 13:34 Wound Center Nurse 1 [Ulcer Assessment] 4-left buttucks -Combined with other wound No -Current Size (cm) - Length 0.1 -Current Size (cm) - Width 0.1 -Current Size (cm) - Depth 0.1 -Total Square Cm 0.01 -Photo Taken No -Epithelialization None Present -Tunneling No -Undermining/Tunneling No -Circular Undermining No -Classification - Thickness Full Thickness without Exposed Support Structure -Wound Margin Flat & Intact -Granulation Amt None Present (0 %) -Granulation Quality N/A -Slough/Fibrin No -Necrosis Amt None Present (0 %) -Texture (Leslye-wound Skin Appearance) Assessed, Scarring,Rash -Moisture (Leslye-wound Skin Appearance Assessed,Dry/ ) Scaly -Color (Leslye-wound Skin Appearance) Assessed, Erythema -Temperature (Leslye-wound Skin No Abnormality Appearance) (Pt Warm) -Ulcer Cleansing Rinsed/ Irrigated with Saline -Foul Odor after Cleansing No -Anesthetic Used 4% Lidocaine Solution WC - Nurse 2 - General Ulcer CM Notes Start: 08/08/19 11:14 Freq: Status: Active Protocol: Activity Type Activity Date Activity User E-Sign Co-Sign Detail Recorded Client Recorded Date Recorded By Document 08/15/19 13:43 [id number] [id number] 08/15/19 13:44 08/15/19 13:43 Wound Center Nurse 2 [Procedure/Treatment] -Time 13:43 -Correct Patient Yes -Correct Side, Site, Position Yes -Correct Procedure Yes -Procedure Performed Yes -Type of Procedure Debridement -Clinical Debridement Subcutaneous -Post Debridement Size (cm) - Length 3.0 -Post Debridement Size (cm) - Width 0.5 -Post Debridement Size (cm) - Depth 0.1 -Total Square Cm 1.50 -Wound/Ulcer Outcome Not Healed -Ulcer Cleansing Rinsed/ Irrigated with Saline -Foul Odor after Cleansing No -Bioengineered Tissue No -Bleeding Controlled with Pressure -Offloading No -Treatment Response Procedure Tolerated Well [See Physician Procedure note for Specifics] Pain Scale: 0-10 Numeric [Pain] -Is Patient Pain Free? Yes Neurological: Neuro grossly intact Psych/Mental Status: Normal Affect, Appropriate, Alert and oriented to time, place, person, mood and affect Debridement Note Post-Debridement Measurements/Treatment WC - Nurse 2 - General Ulcer CM Notes Start: 08/08/19 11:14 Freq: Status: Active Protocol: Activity Type Activity Date Activity User E-Sign Co-Sign Detail Recorded Client Recorded Date Recorded By Document 08/08/19 11:42 MW [id number] 08/08/19 11:43 MW Document 08/15/19 13:43 [id number] 08/15/19 13:44 08/08/19 08/15/19 11:42 13:43 Wound Center Nurse 2 4-left buttucks -Time 11:42 13:43 -Correct Patient Yes Yes -Correct Side, Site, Position Yes Yes -Correct Procedure Yes Yes -Procedure Performed Yes Yes -Type of Procedure Debridement Debridement -Clinical Debridement Selective Subcutaneous -Post Debridement Size (cm) - Length 0.4 3.0 -Post Debridement Size (cm) - Width 0.4 0.5 -Post Debridement Size (cm) - Depth 0.1 0.1 -Total Square Cm 0.16 1.50 -Wound/Ulcer Outcome Not Healed Not Healed -Ulcer Cleansing Rinsed/ Rinsed/ Irrigated with Irrigated with Saline Saline -Foul Odor after Cleansing No No -Bioengineered Tissue No No -Bleeding Controlled with Pressure Pressure -Offloading No No -Treatment Response Procedure Procedure Tolerated Well Tolerated Well Pain Scale: 0-10 Numeric Is Patient Pain Free? Yes Yes Wound debrided: Nonhealing ulcer left buttock Type of Debridement: Excisional debridement Anesthesia Used: 5% Lidocaine Gel Depth: in the subcutaneous layer Percentage of wound debrided: 100 Instrument Used: 5mm curette Tissue Removed: Slough and devitalized tissue Severity: Fat Layer Exposed Amount of bleeding with debridement: Mild Bleeding Controlled with: Pressure Patient tolerated procedure well Assessment/Plan Active Problems (Last Reviewed 05/01/19 @ 10:14 by Myrna Bowers) Decubitus ulcer of left buttock, stage 3 (Chronic) Type 2 diabetes mellitus (Chronic) Pressure ulcer of right buttock, stage 3 (Acute) Assessment: Nonhealing/recurrent left buttock ulcer stage III. Plan: Courtesy visit for Dr. Finnegan?Debridement done as documented above. Procedure was well-tolerated. Continue with adaptic and guaze over top. Tape changed. Change daily. Offloading very strongly recommended. Increased protein intake also recommended. Last A1c at 5.1, continue lifestyle and dietary modification for optimal diabetes control. Her questions were answered and she was advised to call with any further questions or concerns. Follow-up in a week. This note was generated with [employer] dictation software. It may contain incorrect words, spelling, and punctuation that were not noted in checking the note before signing [id number]: [id number] Yasmeen subq tissue 20 sq cm/<
[2019-08-22 11:01] VITALS: BP 174/53; PULSE 59; RESP 16; TEMP 36.8; BMI 33.8
--- NOTE | 2019-08-22 12:18 | PN.PCM_ITS ---
(1) Pressure ulcer of right buttock, stage 3 Status: Acute Current Visit: No Code(s): L89.313 - Pressure ulcer of right buttock, stage 3 (2) Type 2 diabetes mellitus Status: Chronic Current Visit: Yes Code(s): E11.9 - Type 2 diabetes mellitus without complications (3) Decubitus ulcer of left buttock, stage 3 Status: Chronic Current Visit: Yes Code(s): L89.323 - Pressure ulcer of left buttock, stage 3 Type of Wound Date of Service: 08/22/19 Chief Complaint: Non healing left buttock ulcer History of Wound: Ms. Soares is an 79-year-old who presents to the wound center due to nonhealing left buttock ulcer. Has been seen at the wound center for this however current episode said to have started in April during recent hospital stay. Due to her chronic back pain, patient states that she stays seated most of the time. During her hospital stay, ulcer improved with Milena however since discharge home and due to being largely sedentary, it reopened. She has tried bacitracin ointment, gauze and other ointments without any significant improvement. She denies fecal contamination. She feels well otherwise at this time denies chills, fever or change in bowel habit. Progress of Wound: No new concerns at this time. Improving. - Physical Exam Vital Signs Temp Pulse Resp BP 98.3 F 59 L 16 174/53 H 08/22/19 11:01 08/22/19 11:01 08/22/19 11:01 08/22/19 11:01 General: Alert, Oriented x3, Cooperative, No apparent distress HEENT: Atraumatic, Normocephalic Oral: Moist Mucosa Neck: Supple Lungs: Normal air movement Extremities: No cyanosis Skin: Ulcer/ Wound Wound Measurements and Assessment WC - Nurse 1 - General Ulcer Measurement Start: 08/08/19 11:14 Freq: Status: Active Protocol: Activity Type Activity Date Activity User E-Sign Co-Sign Detail Recorded Client Recorded Date Recorded By Document 08/22/19 11:01 [facility] [id number] 08/22/19 11:07 [facility] 08/22/19 11:01 Wound Center Nurse 1 [Ulcer Assessment] 4-left buttucks -Combined with other wound No -Current Size (cm) - Length 0.4 -Current Size (cm) - Width 0.3 -Current Size (cm) - Depth 0.1 -Total Square Cm 0.12 -Photo Taken No -Epithelialization Large 67-100% -Tunneling No -Undermining/Tunneling No -Circular Undermining No -Exudate Amt None Present -Wound Margin Flat & Intact -Granulation Amt Large (67-100%) -Granulation Quality Red -Slough/Fibrin No -Necrosis Amt None Present (0 %) -Texture (Leslye-wound Skin Appearance) Assessed, Scarring -Moisture (Leslye-wound Skin Appearance Assessed ) -Color (Leslye-wound Skin Appearance) Assessed, Erythema -Temperature (Leslye-wound Skin No Abnormality Appearance) (Pt Warm) -Tenderness on Palpation (Leslye-wound No Skin Appearance) -Ulcer Cleansing Rinsed/ Irrigated with Saline -Foul Odor after Cleansing No -Anesthetic Used 5% Lidocaine Gel WC - Nurse 2 - General Ulcer CM Notes Start: 08/08/19 11:14 Freq: Status: Active Protocol: Activity Type Activity Date Activity User E-Sign Co-Sign Detail Recorded Client Recorded Date Recorded By Document 08/22/19 11:12 MW [id number] 08/22/19 11:14 MW 08/22/19 11:12 Wound Center Nurse 2 [Procedure/Treatment] -Time 11:13 -Correct Patient Yes -Correct Side, Site, Position Yes -Correct Procedure Yes -Procedure Performed No -Wound/Ulcer Outcome Not Healed -Ulcer Cleansing Rinsed/ Irrigated with Saline -Foul Odor after Cleansing No -Bioengineered Tissue No -Bleeding Controlled with Pressure -Offloading No -Treatment Response Procedure Tolerated Well [See Physician Procedure note for Specifics] Pain Scale: 0-10 Numeric [Pain] -Is Patient Pain Free? Yes Musculoskeletal: No Muscle Wasting Neurological: Cranial nerves II-XII grossly intact Psych/Mental Status: Normal Affect Debridement Note Post-Debridement Measurements/Treatment WC - Nurse 2 - General Ulcer CM Notes Start: 08/08/19 11:14 Freq: Status: Active Protocol: Activity Type Activity Date Activity User E-Sign Co-Sign Detail Recorded Client Recorded Date Recorded By Document 08/08/19 11:42 MW [id number] 08/08/19 11:43 MW Document 08/15/19 13:43 JF [id number] 08/15/19 13:44 JF Document 03/19/20 11:12 MW [id number] 08/22/19 11:14 MW 08/08/19 08/15/19 08/22/19 11:42 13:43 11:12 Wound Center Nurse 2 4-left buttucks -Time 11:42 13:43 11:13 -Correct Patient Yes Yes Yes -Correct Side, Site, Position Yes Yes Yes -Correct Procedure Yes Yes Yes -Procedure Performed Yes Yes No -Type of Procedure Debridement Debridement -Clinical Debridement Selective Subcutaneous -Post Debridement Size (cm) - Length 0.4 3.0 -Post Debridement Size (cm) - Width 0.4 0.5 -Post Debridement Size (cm) - Depth 0.1 0.1 -Total Square Cm 0.16 1.50 -Wound/Ulcer Outcome Not Healed Not Healed Not Healed -Ulcer Cleansing Rinsed/ Rinsed/ Rinsed/ Irrigated with Irrigated with Irrigated with Saline Saline Saline -Foul Odor after Cleansing No No No -Bioengineered Tissue No No No -Bleeding Controlled with Pressure Pressure Pressure -Offloading No No No -Treatment Response Procedure Procedure Procedure Tolerated Well Tolerated Well Tolerated Well Pain Scale: 0-10 Numeric Is Patient Pain Free? Yes Yes Yes No debridement was completed today Assessment/Plan Active Problems (Last Reviewed 05/01/19 @ 10:14 by Myrna Bowers) Decubitus ulcer of left buttock, stage 3 (Chronic) Type 2 diabetes mellitus (Chronic) Assessment: Nonhealing/recurrent left buttock ulcer stage III. Plan: No debridement completed today. Very superficial. Continue moistened pomogran with adaptic and guaze over top.Change daily. Offloading very strongly recommended. Increased protein intake also recommended. Last A1c at 5.1, continue lifestyle and dietary modification for optimal diabetes control. Her questions were answered and she was advised to call with any further questions or concerns. Follow-up in a week. This note was generated with [employer] software. It may contain incorrect words, spelling, and punctuation that were not noted in checking the note before signing Office Visits / Consults: [id number] OV L3 Est
== END 2019-09-03 23:59 ==
LOC: WC 11:15
PROVIDERS: PCP Nurse Practitioner; Referring Provider Internal Medicine; Visit Provider Internal Medicine
DX: L89.323 Pressure ulcer of left buttock, stage 3 (principal); E11.9 Type 2 diabetes mellitus without complications; L89.313 Pressure ulcer of right buttock, stage 3; I10 Essential (primary) hypertension
CPT/HCPCS: 11042; 97597; 99213; G0463

== ENCOUNTER 2019-09-19 09:30 | Outpatient (RCR) | payer MEDICARE, OTHER, SELFPAY ==
[2019-09-04 00:44] VITALS: BP 174/53; PULSE 59; RESP 16; TEMP 36.8
[2019-09-05 09:28] VITALS: BP 181/54; PULSE 67; RESP 16; TEMP 36.1; BMI 33.8
--- NOTE | 2019-09-05 09:51 | PCM.WC.PN ---
(1) Decubitus ulcer of left buttock, stage 2 Status: Acute Current Visit: No Code(s): L89.322 - Pressure ulcer of left buttock, stage 2 (2) Decubitus ulcer of left buttock, stage 3 Status: Chronic Current Visit: Yes Code(s): L89.323 - Pressure ulcer of left buttock, stage 3 (3) Type 2 diabetes mellitus Status: Chronic Current Visit: Yes Code(s): E11.9 - Type 2 diabetes mellitus without complications Type of Wound Date of Service: 09/05/19 Chief Complaint: Non healing left buttock ulcer History of Wound: Ms. Soares is an 79-year-old who presents to the wound center due to nonhealing left buttock ulcer. Has been seen at the wound center for this however current episode said to have started in April during recent hospital stay. Due to her chronic back pain, patient states that she stays seated most of the time. During her hospital stay, ulcer improved with Milena however since discharge home and due to being largely sedentary, it reopened. She has tried bacitracin ointment, gauze and other ointments without any significant improvement. She denies fecal contamination. She feels well otherwise at this time denies chills, fever or change in bowel habit. Progress of Wound: Prior ulcer has healed.New Stage II ulcer which may have been from a skin tear. - Physical Exam Vital Signs Temp Pulse Resp BP 96.9 F L 67 16 181/54 H 09/05/19 09:28 09/05/19 09:28 09/05/19 09:28 09/05/19 09:28 General: Alert, Oriented x3, Cooperative, No apparent distress HEENT: Atraumatic, Normocephalic Oral: Moist Mucosa Neck: Supple Lungs: Normal air movement Skin: Ulcer/ Wound Wound Measurements and Assessment WC - Nurse 1 - General Ulcer Measurement Start: 09/05/19 09:27 Freq: Status: Active Protocol: Activity Type Activity Date Activity User E-Sign Co-Sign Detail Recorded Client Recorded Date Recorded By Document 09/05/19 09:28 [facility] [id number] 09/05/19 09:34 [facility] 09/05/19 09:28 Wound Center Nurse 1 [Ulcer Assessment] 4-left buttucks -Combined with other wound No -Current Size (cm) - Length 0.5 -Current Size (cm) - Width 1 -Current Size (cm) - Depth 0.1 -Total Square Cm 0.5 -Photo Taken No -Epithelialization None Present -Tunneling No -Undermining/Tunneling No -Circular Undermining No -Exudate Amt Small -Exudate Type Sanguineous -Wound Margin Flat & Intact -Granulation Amt Large (67-100%) -Granulation Quality Red -Slough/Fibrin No -Necrosis Amt None Present (0 %) -Texture (Leslye-wound Skin Appearance) Assessed, Scarring -Moisture (Leslye-wound Skin Appearance Assessed,Dry/ ) Scaly -Color (Leslye-wound Skin Appearance) Erythema -Temperature (Leslye-wound Skin No Abnormality Appearance) (Pt Warm) -Tenderness on Palpation (Leslye-wound No Skin Appearance) -Ulcer Cleansing Rinsed/ Irrigated with Saline -Foul Odor after Cleansing No -Anesthetic Used 5% Lidocaine Gel WC - Nurse 2 - General Ulcer CM Notes Start: 09/05/19 09:27 Freq: Status: Active Protocol: Activity Type Activity Date Activity User E-Sign Co-Sign Detail Recorded Client Recorded Date Recorded By Document 09/05/19 09:39 MW [id number] 09/05/19 09:41 MW 09/05/19 09:39 Wound Center Nurse 2 [Procedure/Treatment] -Time 09:39 -Correct Patient Yes -Correct Side, Site, Position Yes -Correct Procedure Yes -Procedure Performed Yes -Type of Procedure Debridement -Clinical Debridement Subcutaneous -Post Debridement Size (cm) - Length 0.6 -Post Debridement Size (cm) - Width 1.0 -Post Debridement Size (cm) - Depth 0.1 -Total Square Cm 0.60 -Wound/Ulcer Outcome Not Healed -Ulcer Cleansing Rinsed/ Irrigated with Saline -Foul Odor after Cleansing No -Bioengineered Tissue No -Bleeding Controlled with Pressure -Offloading No -Treatment Response Procedure Tolerated Well [See Physician Procedure note for Specifics] Pain Scale: 0-10 Numeric [Pain] -Is Patient Pain Free? Yes Neurological: Cranial nerves II-XII grossly intact Psych/Mental Status: Normal Affect Debridement Note Post-Debridement Measurements/Treatment WC - Nurse 2 - General Ulcer CM Notes Start: 09/05/19 09:27 Freq: Status: Active Protocol: Activity Type Activity Date Activity User E-Sign Co-Sign Detail Recorded Client Recorded Date Recorded By Document 09/05/19 09:39 MW [id number] 09/05/19 09:41 MW 09/05/19 09:39 Wound Center Nurse 2 4-left buttucks -Time 09:39 -Correct Patient Yes -Correct Side, Site, Position Yes -Correct Procedure Yes -Procedure Performed Yes -Type of Procedure Debridement -Clinical Debridement Subcutaneous -Post Debridement Size (cm) - Length 0.6 -Post Debridement Size (cm) - Width 1.0 -Post Debridement Size (cm) - Depth 0.1 -Total Square Cm 0.60 -Wound/Ulcer Outcome Not Healed -Ulcer Cleansing Rinsed/ Irrigated with Saline -Foul Odor after Cleansing No -Bioengineered Tissue No -Bleeding Controlled with Pressure -Offloading No -Treatment Response Procedure Tolerated Well Pain Scale: 0-10 Numeric Is Patient Pain Free? Yes Wound debrided: Left Buttock Type of Debridement: Excisional debridement Anesthesia Used: 4% Lidocaine Solution Depth: Down to and including healthy tissue Percentage of wound debrided: 100 Instrument Used: 3mm curette Tissue Removed: Devitalized tissue Severity: Fat Layer Exposed Amount of bleeding with debridement: Mild Bleeding Controlled with: Pressure Patient tolerated procedure well Assessment/Plan Active Problems (Last Reviewed 05/01/19 @ 10:14 by Myrna Bowers) Decubitus ulcer of left buttock, stage 3 (Chronic) Type 2 diabetes mellitus (Chronic) Assessment: Nonhealing/recurrent left buttock ulcer stage III ( Healed ). New left stage II left buttock ulcer. Plan: Previous ulcer is healed. New stage II ulcer ? from skin tear. Moistened Milena with adaptic and guaze over top.Change daily. Offloading very strongly recommended. Increased protein intake also recommended. Last A1c at 5.1, continue lifestyle and dietary modification for optimal diabetes control. Her questions were answered and she was advised to call with any further questions or concerns. Follow-up in a week. This note was generated with [employer] software. It may contain incorrect words, spelling, and punctuation that were not noted in checking the note before signing [id number]: [id number] Yasmeen subq tissue 20 sq cm/<
[2019-09-19 09:33] VITALS: BP 182/56; PULSE 68; RESP 18; TEMP 36.6; BMI 33.8
--- NOTE | 2019-09-19 10:12 | PCM.WC.PN ---
(1) Decubitus ulcer of left buttock, stage 2 Status: Acute Current Visit: No Code(s): L89.322 - Pressure ulcer of left buttock, stage 2 (2) Decubitus ulcer of left buttock, stage 3 Status: Chronic Current Visit: Yes Code(s): L89.323 - Pressure ulcer of left buttock, stage 3 (3) Type 2 diabetes mellitus Status: Chronic Current Visit: Yes Code(s): E11.9 - Type 2 diabetes mellitus without complications Type of Wound Date of Service: 09/19/19 Chief Complaint: Non healing left buttock ulcer History of Wound: Ms. Soares is an 79-year-old who presents to the wound center due to nonhealing left buttock ulcer. Has been seen at the wound center for this however current episode said to have started in April during recent hospital stay. Due to her chronic back pain, patient states that she stays seated most of the time. During her hospital stay, ulcer improved with Milena however since discharge home and due to being largely sedentary, it reopened. She has tried bacitracin ointment, gauze and other ointments without any significant improvement. She denies fecal contamination. She feels well otherwise at this time denies chills, fever or change in bowel habit. Progress of Wound: Healed. No new concerns. - Physical Exam Vital Signs Temp Pulse Resp BP 97.8 F 68 18 182/56 H 09/19/19 09:33 09/19/19 09:33 09/19/19 09:33 09/19/19 09:33 General: Alert, Oriented x3, Cooperative, No apparent distress HEENT: Atraumatic, Normocephalic Oral: Moist Mucosa Neck: Supple Lungs: Normal air movement Abdomen: Non Tender Extremities: No cyanosis Wound Measurements and Assessment WC - Nurse 1 - General Ulcer Measurement Start: 09/05/19 09:27 Freq: Status: Active Protocol: Activity Type Activity Date Activity User E-Sign Co-Sign Detail Recorded Client Recorded Date Recorded By Document 09/19/19 09:33 PL [id number] 09/19/19 09:40 PL 09/19/19 09:33 Wound Center Nurse 1 [Ulcer Assessment] 4-left buttucks -Combined with other wound No -Current Size (cm) - Length 0 -Current Size (cm) - Width 0 -Current Size (cm) - Depth 0 -Total Square Cm 0 -Photo Taken No -Tunneling No -Undermining/Tunneling No -Exudate Amt None Present -Granulation Amt Large (67-100%) -Granulation Quality Weir -Texture (Leslye-wound Skin Appearance) No Abnormality -Moisture (Leslye-wound Skin Appearance No Abnormality ) -Color (Leslye-wound Skin Appearance) No Abnormality -Temperature (Leslye-wound Skin No Abnormality Appearance) (Pt Warm) -Tenderness on Palpation (Leslye-wound Yes Skin Appearance) -Ulcer Cleansing Rinsed/ Irrigated with Saline -Foul Odor after Cleansing No WC - Nurse 2 - General Ulcer CM Notes Start: 09/05/19 09:27 Freq: Status: Active Protocol: Activity Type Activity Date Activity User E-Sign Co-Sign Detail Recorded Client Recorded Date Recorded By Document 09/19/19 10:00 MW [id number] 09/19/19 10:01 MW 09/19/19 10:00 Wound Center Nurse 2 [Procedure/Treatment] -Time 10:00 -Correct Patient Yes -Correct Side, Site, Position Yes -Correct Procedure Yes -Procedure Performed No -Post Debridement Size (cm) - Length 0 -Post Debridement Size (cm) - Width 0 -Post Debridement Size (cm) - Depth 0 -Total Square Cm 0 -Wound/Ulcer Outcome Healed- Epithelialized [See Physician Procedure note for Specifics] Pain Scale: 0-10 Numeric [Pain] -Is Patient Pain Free? Yes Musculoskeletal: No Muscle Wasting Neurological: Cranial nerves II-XII grossly intact Psych/Mental Status: Normal Affect Debridement Note Post-Debridement Measurements/Treatment WC - Nurse 2 - General Ulcer CM Notes Start: 09/05/19 09:27 Freq: Status: Active Protocol: Activity Type Activity Date Activity User E-Sign Co-Sign Detail Recorded Client Recorded Date Recorded By Document 09/05/19 09:39 MW [id number] 09/05/19 09:41 MW Document 09/19/19 10:00 MW [id number] 09/19/19 10:01 MW 09/05/19 09/19/19 09:39 10:00 Wound Center Nurse 2 4-left buttucks -Time 09:39 10:00 -Correct Patient Yes Yes -Correct Side, Site, Position Yes Yes -Correct Procedure Yes Yes -Procedure Performed Yes No -Type of Procedure Debridement -Clinical Debridement Subcutaneous -Post Debridement Size (cm) - Length 0.6 0 -Post Debridement Size (cm) - Width 1.0 0 -Post Debridement Size (cm) - Depth 0.1 0 -Total Square Cm 0.60 0 -Wound/Ulcer Outcome Not Healed Healed- Epithelialized -Ulcer Cleansing Rinsed/ Irrigated with Saline -Foul Odor after Cleansing No -Bioengineered Tissue No -Bleeding Controlled with Pressure -Offloading No -Treatment Response Procedure Tolerated Well Pain Scale: 0-10 Numeric Is Patient Pain Free? Yes Yes No debridement was completed today Assessment/Plan Active Problems (Last Reviewed 05/01/19 @ 10:14 by Myrna Bowers) Decubitus ulcer of left buttock, stage 3 (Chronic) Type 2 diabetes mellitus (Chronic) Assessment: Nonhealing/recurrent left buttock ulcer stage III ( Healed ). New left stage II left buttock ulcer. ( Healed ) Plan: Healed. No new concerns. Continue A and D ointment and offloading very strongly recommended. Increased protein intake also recommended. Last A1c at 5.1, continue lifestyle and dietary modification for optimal diabetes control. Her questions were answered and she was advised to call with any further questions or concerns. Discharged from the wound clinic. This note was generated with [employer] dictation software. It may contain incorrect words, spelling, and punctuation that were not noted in checking the note before signing Office Visits / Consults: [id number] OV L3 Est
== END 2019-10-03 23:59 ==
LOC: WC 09:30
PROVIDERS: PCP Nurse Practitioner; Referring Provider Internal Medicine; Visit Provider Internal Medicine
DX: L89.323 Pressure ulcer of left buttock, stage 3 (principal); E11.9 Type 2 diabetes mellitus without complications; I10 Essential (primary) hypertension
CPT/HCPCS: 11042; 99212; G0463

== ENCOUNTER 2019-11-29 10:25 | Outpatient (RCR) | payer MEDICARE, OTHER, SELFPAY ==
[2019-10-11 13:05] VITALS: BMI 34.0
[2019-11-29 10:31] VITALS: BP 163/51; PULSE 63; RESP 16; TEMP 36.4; BMI 34.0
--- NOTE | 2019-11-29 16:48 | PCM.WC.HP ---
(1) Essential hypertension Status: Chronic Current Visit: Yes Code(s): I10 - Essential (primary) hypertension (2) Edema of both legs Status: Chronic Current Visit: Yes Code(s): R60.0 - Localized edema (3) Obesity Status: Chronic Current Visit: Yes Qualifiers: Obesity type: due to excess calories Obesity classification: unspecified obesity classification Serious obesity comorbidity presence: unspecified whether serious comorbidity present Qualified Code(s): E66.09 - Other obesity due to excess calories Code(s): E66.9 - Obesity, unspecified (4) Hx of venous thrombosis and embolism Status: Chronic Current Visit: Yes Code(s): Z86.718 - Personal history of other venous thrombosis and embolism (5) history of cellulitis of leg Status: Chronic Current Visit: Yes (6) Chronic venous stasis dermatitis Status: Chronic Current Visit: Yes Code(s): I87.2 - Venous insufficiency (chronic) (peripheral) (7) Type 2 diabetes mellitus Status: Chronic Current Visit: Yes Qualifiers: Diabetes mellitus chcf insulin use: unspecified long term care administrator insulin use status Diabetes mellitus complication status: with skin complications Diabetes mellitus complication detail: with other skin ulcer Qualified Code(s): E11.622 - Type 2 diabetes mellitus with other skin ulcer; L98.499 - Non-pressure chronic ulcer of skin of other sites with unspecified severity Code(s): E11.9 - Type 2 diabetes mellitus without complications History of Present Illness Date of Service: 11/29/19 Chief Complaint: Non healing ulcers left lower extremity History of Wound: Ms. Soares is an 79-year-old who presents to the wound center due to nonhealing ulcer of left lower leg. She has been seen for similar ulcers in the past. She noticed the ulcers on 11/14/2019 and has been applying Adaptic initially and then ran out of this so she started to apply Xeroform that she had from a previous wound. She is not sure how they developed but she does have intermittent cellulitis and did have a flare of cellulitis at that time and saw her PCP who prescribed her keflex and referred her to be seen here at the wound center. She feels well otherwise at this time denies chills, fever or change in bowel habit. 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) Mild Failure to thrive (Chronic) Positional vertigo (Chronic) Obesity (Chronic) Hx of venous thrombosis and embolism (Chronic) history of cellulitis of leg (Chronic) Leg swelling (Chronic) Hyperpigmentation of skin (Chronic) Lipodermatosclerosis (Chronic) 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) Localized edema (Chronic) 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) Generalized weakness (Chronic) Chronic venous hypertension (idiopathic) with ulcer of left lower 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) Type 2 diabetes mellitus (Chronic) Surgical History: - Allergies/Adverse Reactions: Allergies ezetimibe [From Zetia] Allergy (Verified 11/29/19 10:45) Itching lisinopril Allergy (Verified 11/29/19 10:45) Other cough neomycin [Neomycin] Allergy (Verified 11/29/19 10:45) Unknown neomycin sulfate [From Neosporin ([id number])] Allergy (Verified 11/29/19 10:45) Itching polymyxin B [Polymyxin B] Allergy (Verified 11/29/19 10:45) Unknown Sulfa (Sulfonamide Antibiotics) Allergy (Verified 11/29/19 10:45) Unknown tetracycline [Tetracycline] Allergy (Verified 11/29/19 10:45) Itching adhesive tape Adverse Reaction (Severe, Verified 11/29/19 10:45) Unknown atorvastatin calcium [From Lipitor] Adverse Reaction (Verified 11/29/19 10:45) Pain in joints Home Medications: Ambulatory Orders Medication Instructions Recorded Famotidine [Pepcid] 20 mg PO BID 01/15/17 Irbesartan [Avapro] 75 mg PO DAILY 01/15/17 cyanocobalamin (vitamin B-12) 1,000 mcg PO DAILY 09/21/17 1,000 mcg/mL oral drops meclizine 25 mg tablet 25 mg PO DAILY PRN 10/11/19 potassium chloride 10 mEq 10 meq PO DAILY PRN 10/11/19 capsule,extended release sucralfate 1 gram tablet 2 g PO DAILY PRN tab 10/11/19 torsemide 20 mg tablet 10 mg PO DAILY PRN tab 10/11/19 - Family History Maternal Family History: Family History (Last Reviewed 10/11/19 @ 13:17 by Serenity Gonzales) Mother CAD (coronary artery disease) Myocardial infarction Son Hypertension Brother Aortic aneurysm Father Diabetes Heart disease Heart Disease, - Paternal Family History: Family History (Last Reviewed 10/11/19 @ 13:17 by Serenity Gonzales) Mother CAD (coronary artery disease) Myocardial infarction Son Hypertension Brother Aortic aneurysm Father Diabetes Heart disease Diabetes Lives: Alone Smoking Status: Never smoker Tobacco Use: Non-smoker Alcohol: None Drugs: None Review of Systems Constitutional: Denies: Chills, Fever, Weight Change Eyes: Denies: Pain, Vision Change HEENT: Denies: Difficulty Hearing, Difficulty Swallowing, Sinus Congestion Cardiovascular: Denies: Chest Pain, Palpitations Respiratory: Denies: Cough, Shortness of Breath Gastrointestinal: Denies: Diarrhea, Nausea, Vomiting Genitourinary: Denies: Dysuria, Hematuria Musculoskeletal: Reports: Back Pain Skin: Reports: Wounds Endocrine: Denies: Heat/ Cold Intolerance, Polydipsia, Polyuria Hematologic/ Lymphatic: Denies: Easy Bruising, Easy Bleeding - Physical Exam Vital Signs Temp Pulse Resp BP 97.6 F L 63 16 163/51 H 11/29/19 10:31 11/29/19 10:31 11/29/19 10:31 11/29/19 10:31 General: Alert, Oriented x3, Cooperative, No apparent distress HEENT: Atraumatic, Normocephalic Oral: Moist Mucosa Abdomen: Obese Extremities: Edema Skin: Ulcer/ Wound Wound Measurements and Assessment WC - Nurse 1 - General Ulcer Measurement Start: 11/29/19 10:31 Freq: Status: Active Protocol: Activity Type Activity Date Activity User E-Sign Co-Sign Detail Recorded Client Recorded Date Recorded By Document 11/29/19 10:31 [facility] [id number] 11/29/19 10:44 [facility] 11/29/19 10:31 Wound Center Nurse 1 [Ulcer Assessment] #6- L LATERAL PALAFOX CLUSTER -Combined with other wound No -Current Size (cm) - Length 1.3 -Current Size (cm) - Width 0.8 -Current Size (cm) - Depth 0.1 -Total Square Cm 1.04 -Date of Last Picture (Recall this 11/29/19 field) -Photo Taken Yes -Epithelialization None Present -Tunneling No -Undermining/Tunneling No -Circular Undermining No -Exudate Amt Small -Exudate Type Serosanguineous -Wound Margin Flat & Intact -Granulation Amt Large (67-100%) -Granulation Quality Red -Slough/Fibrin No -Necrosis Amt None Present (0 %) -Texture (Leslye-wound Skin Appearance) Assessed -Moisture (Leslye-wound Skin Appearance Assessed ) -Color (Leslye-wound Skin Appearance) Assessed, Hemosiderin Staining -Temperature (Leslye-wound Skin No Abnormality Appearance) (Pt Warm) -Tenderness on Palpation (Leslye-wound No Skin Appearance) -Ulcer Cleansing Rinsed/ Irrigated with Saline -Foul Odor after Cleansing No -Anesthetic Used 5% Lidocaine Gel #5- L MEDIAL PALAFOX CLUSTER -Combined with other wound No -Current Size (cm) - Length 1.3 -Current Size (cm) - Width 2.6 -Current Size (cm) - Depth 0.1 -Total Square Cm 3.38 -Date of Last Picture (Recall this 11/29/19 field) -Photo Taken Yes -Epithelialization None Present -Tunneling No -Undermining/Tunneling No -Circular Undermining No -Exudate Amt Small -Exudate Type Serosanguineous -Wound Margin Flat & Intact -Granulation Amt Large (67-100%) -Granulation Quality Red -Slough/Fibrin No -Necrosis Amt None Present (0 %) -Texture (Leslye-wound Skin Appearance) Assessed, Scarring -Moisture (Leslye-wound Skin Appearance Assessed ) -Color (Leslye-wound Skin Appearance) Assessed, Hemosiderin Staining -Temperature (Leslye-wound Skin No Abnormality Appearance) (Pt Warm) -Tenderness on Palpation (Leslye-wound No Skin Appearance) -Ulcer Cleansing Rinsed/ Irrigated with Saline -Foul Odor after Cleansing No -Anesthetic Used 5% Lidocaine Gel [Edema Assessment] -Lower Limb Edema Present Yes -Right Calf (cm) 41.1 -Right Ankle (cm) 27.6 -Left Calf (cm) 43.5 -Left Ankle (cm) 26.8 WC - Nurse 2 - General Ulcer CM Notes Start: 11/29/19 10:31 Freq: Status: Active Protocol: Activity Type Activity Date Activity User E-Sign Co-Sign Detail Recorded Client Recorded Date Recorded By Document 11/29/19 11:35 DV [id number] 11/29/19 11:41 DV 11/29/19 11:35 Wound Center Nurse 2 [Procedure/Treatment] #6- L LATERAL PALAFOX CLUSTER -Time 11:36 -Correct Patient Yes -Correct Side, Site, Position Yes -Correct Procedure Yes -Procedure Performed Yes -Type of Procedure Debridement -Clinical Debridement Selective -Post Debridement Size (cm) - Length 1.5 -Post Debridement Size (cm) - Width 1.4 -Post Debridement Size (cm) - Depth 0.1 -Total Square Cm 2.10 -Wound/Ulcer Outcome Not Healed -Foul Odor after Cleansing No -Bioengineered Tissue No -Bleeding Controlled with Pressure -Offloading No -Treatment Response Procedure Tolerated Well #5- L MEDIAL PALAFOX CLUSTER -Time 11:36 -Correct Patient Yes -Correct Side, Site, Position Yes -Correct Procedure Yes -Procedure Performed Yes -Type of Procedure Debridement -Clinical Debridement Selective -Post Debridement Size (cm) - Length 1.4 -Post Debridement Size (cm) - Width 2.5 -Post Debridement Size (cm) - Depth 0.1 -Total Square Cm 3.50 -Wound/Ulcer Outcome Not Healed -Ulcer Cleansing Rinsed/ Irrigated with Saline -Foul Odor after Cleansing No -Bioengineered Tissue No -Bleeding Controlled with Pressure -Offloading No -Treatment Response Procedure Tolerated Well [See Physician Procedure note for Specifics] Pain Scale: 0-10 Numeric [Pain] -Is Patient Pain Free? Yes Psych/Mental Status: Normal Affect, Appropriate Debridement Note Post-Debridement Measurements/Treatment WC - Nurse 2 - General Ulcer CM Notes Start: 11/29/19 10:31 Freq: Status: Active Protocol: Activity Type Activity Date Activity User E-Sign Co-Sign Detail Recorded Client Recorded Date Recorded By Document 11/29/19 11:35 DV [id number] 11/29/19 11:41 DV 11/29/19 11:35 Wound Center Nurse 2 #6- L LATERAL PALAFOX CLUSTER -Time 11:36 -Correct Patient Yes -Correct Side, Site, Position Yes -Correct Procedure Yes -Procedure Performed Yes -Type of Procedure Debridement -Clinical Debridement Selective -Post Debridement Size (cm) - Length 1.5 -Post Debridement Size (cm) - Width 1.4 -Post Debridement Size (cm) - Depth 0.1 -Total Square Cm 2.10 -Wound/Ulcer Outcome Not Healed -Foul Odor after Cleansing No -Bioengineered Tissue No -Bleeding Controlled with Pressure -Offloading No -Treatment Response Procedure Tolerated Well #5- L MEDIAL PALAFOX CLUSTER -Time 11:36 -Correct Patient Yes -Correct Side, Site, Position Yes -Correct Procedure Yes -Procedure Performed Yes -Type of Procedure Debridement -Clinical Debridement Selective -Post Debridement Size (cm) - Length 1.4 -Post Debridement Size (cm) - Width 2.5 -Post Debridement Size (cm) - Depth 0.1 -Total Square Cm 3.50 -Wound/Ulcer Outcome Not Healed -Ulcer Cleansing Rinsed/ Irrigated with Saline -Foul Odor after Cleansing No -Bioengineered Tissue No -Bleeding Controlled with Pressure -Offloading No -Treatment Response Procedure Tolerated Well Pain Scale: 0-10 Numeric Is Patient Pain Free? Yes Wound debrided: left medial palafox cluster Laterality: Left Type of Debridement: Selective debridement Anesthesia Used: 4% Lidocaine Solution Depth: Down to and including healthy tissue, in the subcutaneous layer Percentage of wound debrided: 100 Tissue Removed: Yellow slough, devitalized tissue Severity: Fat Layer Exposed Amount of bleeding with debridement: Mild Bleeding Controlled with: Compression and gauze Patient tolerated procedure well - Additional Wound Wound debrided: left lateral palafox cluster Laterality: Left Type of Debridement: Selective debridement Anesthesia Used: 4% Lidocaine Solution Depth: Down to and including healthy tissue Percentage of wound debrided: 100 Tissue Removed: Yellow slough, devitalized tissue Severity: Limited To Skin Breakdown Amount of bleeding with debridement: Mild Bleeding Controlled with: Compression and gauze Patient tolerated procedure: Patient tolerated procedure well Assessment/Plan Active Problems (Last Reviewed 10/11/19 @ 13:17 by Serenity Gonzales) Essential hypertension (Chronic) Edema of both legs (Chronic) Obesity (Chronic) Hx of venous thrombosis and embolism (Chronic) history of cellulitis of leg (Chronic) Chronic venous stasis dermatitis (Chronic) Type 2 diabetes mellitus (Chronic) Assessment: Nonhealing/recurrent left buttock ulcer stage III ( Healed ). New left stage II left buttock ulcer. ( Healed ) Plan: Rebeca's ulcers were evaluated and debrided today as above. She was advised to continue using Xeroform gauze to the ulcers and to use BELLE wrap for compression of her LE and elevate as much as possible. Encouraged glucose control, increased protein intake and offloading. Advised to call with any increased pain, erythema, odor, or drainage. F/U in 2 weeks.
== END 2019-12-03 23:59 ==
LOC: WC 10:25
PROVIDERS: PCP Nurse Practitioner; Visit Provider Family Medicine
DX: E11.622 Type 2 diabetes mellitus with other skin ulcer (principal); I83.228 Varicose veins of left lower extremity with both ulcer of other part of lower extremity and inflammation; L97.821 Non-pressure chronic ulcer of other part of left lower leg limited to breakdown of skin; L97.822 Non-pressure chronic ulcer of other part of left lower leg with fat layer exposed; R60.0 Localized edema; I10 Essential (primary) hypertension; I25.10 Atherosclerotic heart disease of native coronary artery without angina pectoris; E78.00 Pure hypercholesterolemia, unspecified; M19.90 Unspecified osteoarthritis, unspecified site; K21.9 Gastro-esophageal reflux disease without esophagitis; E66.9 Obesity, unspecified; Z79.899 Other long term (current) drug therapy; Z86.718 Personal history of other venous thrombosis and embolism
CPT/HCPCS: 97597; 99213; G0463

== ENCOUNTER 2019-12-13 12:24 | Outpatient (RCR) | payer MEDICARE, OTHER, SELFPAY ==
[2019-12-04 00:40] VITALS: BP 163/51; PULSE 63; RESP 16; TEMP 36.4
[2019-12-13 13:04] VITALS: BP 148/60; PULSE 65; RESP 18; TEMP 36.9; BMI 34.0
== END 2020-01-03 23:59 ==
LOC: WC 12:24
PROVIDERS: PCP Nurse Practitioner; Visit Provider Family Medicine
DX: Z04.89 Encounter for examination and observation for other specified reasons (principal)
CPT/HCPCS: 99212; G0463

== ENCOUNTER 2020-10-11 14:20 | Inpatient (IN) | payer MEDICARE, OTHER, SELFPAY ==
[2020-10-11 14:21] VITALS: BP 144/65; PULSE 72; RESP 15; TEMP 36.8; O2SAT 100; BMI 36.3
--- NOTE | 2020-10-11 14:40 | CT_ITS ---
STUDY: CT ABDOMEN AND PELVIS WITH CONTRAST REASON FOR EXAM: Female, 80 years old. abdominal pain RADIATION DOSAGE (If Supplied By Facility): CTDIvol = ( 15.81 ) mGy, DLP = ( 794.25 ) mGycm TECHNIQUE: Transaxial images were obtained from the dome of the diaphragm to the symphysis pubis without oral contrast. IV 100mL Isovue-370 was administered. Sagittal and coronal images were reconstructed. Individualized dose optimization techniques were used for this CT. COMPARISON: 04/15/2019 FINDINGS: The visualized lung bases are unremarkable. The visualized portions of the heart are within normal limits. Biliary dilation likely related to prior cholecystectomy (stable since prior study). No hepatic masses. Gallbladder is surgically absent. Normal spleen. Normal pancreas. Normal bilateral adrenal glands. Normal right kidney. Normal left kidney. There is a small hiatal hernia. Normal small intestine. There are multiple colonic diverticula consistent with diverticulosis. There is non-visualization of the appendix. There is diffuse atherosclerotic calcification of the abdominal aorta, without a demonstrated aneurysm. Normal inferior vena cava. Normal retroperitoneum. Normal urinary bladder. Normal visualized uterus. Injection granulomata of the right hip subcutaneous fat. There are diffuse degenerative changes of the visualized lumbar spine. CT/Abdomen/Pelvis W IV Cont ONLY IMPRESSION: 1. No acute inflammatory process or bowel obstruction. 2. Stable chronic changes, as above. Electronically Signed: Bennett Man MD (Brooks) at 16:34 EDT , Service support ,
--- NOTE | 2020-10-11 14:40 | EKG12_ITS ---
Test Reason : Blood Pressure : / mmHG Vent. Rate : 061 BPM Atrial Rate : 061 BPM P-R Int : 220 ms QRS Dur : 094 ms QT Int : 408 ms P-R-T Axes : 020 -51 040 degrees QTc Int : 410 ms Sinus rhythm with 1st degree A-V block Left anterior fascicular block Nonspecific ST and T wave abnormality Abnormal ECG Confirmed by ELVA BAUTISTA, PEDRO ([id number]), editor in chief BARBARA JACOBO ([id number]) on 10/12/2020 1:04:03 PM Referred By: BJ Confirmed By:PEDRO STEVENSON MD
--- NOTE | 2020-10-11 14:42 | EX.ED.DYSGE1 ---
HPI History of Present Illness Chief Complaint: Abd Pain Informant: patient and family Onset/Context/Timing Onset: Today Narrative Narrative: 80-year-old female presents with abdominal pain. States this started at 1 AM. She has had nausea, vomiting, diarrhea. She states she has history of pancreatitis in April 2019 and this feels similar. At that time her gallbladder was removed. She denies fever. Denies chest pain or shortness of breath. Denies other complaints. Denies alcohol use. Prior similar symptoms: Yes Recent Illness/Hospitalization: No PFSH [facility] Medical History (Updated 10/11/20 @ 16:[address] 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 Cellulitis of left leg Chronic venous hypertension (idiopathic) with inflammation of bilateral lower extremity Chronic venous hypertension (idiopathic) with ulcer of left lower extremity Chronic venous stasis dermatitis Decubitus ulcer of left buttock, stage 2 Diabetes Edema of both legs Essential hypertension Failure to thrive Generalized weakness GERD (gastroesophageal reflux disease) Heel spur Hiatal hernia history of cellulitis of leg Hx of venous thrombosis and embolism Hyperpigmentation of skin Hypertension Leg swelling Lipodermatosclerosis Localized edema Nausea 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 Obesity Osteoarthritis Palpitations Positional vertigo Post-phlebitic dermatosis of both lower extremities Pressure ulcer of right buttock, stage 3 Pure hypercholesterolemia Sludge in gallbladder Type 2 diabetes mellitus Type 2 diabetes mellitus with other circulatory complications Ulcer Venous stasis ulcer Home Medications famotidine 20 mg PO BID 01/15/17 [History Last Taken 04/14/19] irbesartan 75 mg PO DAILY 01/15/17 [History Last Taken 04/14/19] cyanocobalamin (vitamin B-12) 1,000 mcg/mL oral drops 1,000 mcg PO DAILY 09/21/17 [History Last Taken Unknown] meclizine 25 mg tablet 25 mg PO DAILY PRN 10/11/19 [History Last Taken Unknown] potassium chloride 10 mEq capsule,extended release 10 meq PO DAILY PRN 10/11/19 [History Last Taken Unknown] sucralfate 1 gram tablet 2 g PO DAILY PRN tab 10/11/19 [History Last Taken Unknown] torsemide 20 mg tablet 10 mg PO DAILY PRN tab 10/11/19 [History Last Taken Unknown] Allergy/AdvReac Type Severity Reaction Status Date / Time ezetimibe [From Zetia] Allergy Itching Verified 10/11/20 14:21 lisinopril Allergy Other Verified 10/11/20 14:21 neomycin [Neomycin] Allergy Unknown Verified 10/11/20 14:21 neomycin sulfate Allergy Itching Verified 10/11/20 14:21 [From Neosporin ([id number])] polymyxin B [Polymyxin B] Allergy Unknown Verified 10/11/20 14:21 Sulfa (Sulfonamide Allergy Unknown Verified 10/11/20 14:21 Antibiotics) tetracycline [Tetracycline] Allergy Itching Verified 10/11/20 14:21 adhesive tape AdvReac Severe Unknown Verified 10/11/20 14:21 atorvastatin calcium AdvReac Pain in Verified 10/11/20 14:21 [From Lipitor] joints Family History Mother CAD (coronary artery disease) Myocardial infarction Son Hypertension Brother Aortic aneurysm Father Diabetes Heart disease Surgical History H/O dilation and curettage history excision heel spur right foot History of cataract surgery History of cholecystectomy History of hernia repair History of left heart catheterization History of tubal ligation Lipoma Rectal fistula Social History (Updated 10/11/20 @ 16:[address] Ana Chand MD) household members: none Smoking Status: Never smoker alcohol intake: never substance use type: does not use caffeine: Yes Type: coffee Number of servings: 1 what type of physical activity do you participate in: none seatbelt use: always do you feel safe at home: Yes ROS ROS ED Constitutional Constitutional ED: Denies fever(s) Eyes Eyes: Denies change in vision ENT ENT ED: Denies rhinorrhea or sore throat Cardiovascular Cardiovascular: Denies chest pain or palpitations Respiratory/Chest Respiratory/Chest: Denies cough or dyspnea Gastrointestinal Gastrointestinal: Reports abdominal pain, diarrhea, nausea and vomiting Genitourinary Genitourinary ED: Denies dysuria Musculoskeletal Musculoskeletal: Denies myalgias Integumentary Denies rash Neurologic Neurologic: Denies headache(s) Endocrine Endocrinology: Denies polyuria EXAM Physical Exam Const Vital Signs: 10/11/20 14:21 Temperature 98.2 F Temperature Source Temporal Pulse Rate 72 Respiratory Rate 15 Blood Pressure 144/65 H Blood Pressure Mean 91 Pulse Ox 100 Oxygen Delivery Method Room Air Positive well nourished and well developed General Appearance ED: well developed HEENT Reports normocephalic and head/scalp atraumatic Eyes PERRL and EOMs intact bilaterally Neck supple General: Negative for tenderness Chest Wall inspection of chest normal Resp normal respiratory effort and clear to auscultation bilaterally Cardio regular rate and regular rhythm GI non-distended Palpation: soft and tender epigastric; Negative for guarding or rebound tenderness present no CVA tenderness Extremity normal to inspection Neuro oriented x3 Sensorium / Orientation: alert Psych mental status grossly normal MDM MDM MDM Narrative Medical decision making narrative: Patient was given morphine, Zofran IV. Patient had some improvement of her pain with medications. Lipase 1249. CT is unremarkable. Discussed with hospitalist for admission. Lab Data Attestation: I reviewed the patient's lab results. Labs: Laboratory Results - last 24 hr 10/11/20 10/11/20 10/11/20 14:50 14:50 14:50 WBC 4.5 RBC 4.07 L Hgb 12.3 Hct 38.8 MCV 95.3 MCH 30.2 MCHC 31.7 L RDW Std Deviation 45.7 H RDW Coeff of Mihir 13.0 Plt Count 160 MPV 11.1 Immature Gran % (Auto) 0.200 Neut % (Auto) 56.4 Lymph % (Auto) 33.0 [place] % (Auto) 9.5 Eos % (Auto) 0.7 Baso % (Auto) 0.2 Absolute Neuts (auto) 2.5 Absolute Lymphs (auto) 1.49 Nucleated RBC % 0 Sodium 139 Potassium 3.3 L Chloride 102 Carbon Dioxide 28.0 Anion Gap 9 BUN 18 Creatinine 1.00 Estim Creat Clear Calc 54.97 Est GFR (MDRD) Af Amer 69 Est GFR (MDRD) Non-Af 57 L BUN/Creatinine Ratio 18.0 Glucose 111 H Calcium 8.4 L Magnesium 1.8 Total Bilirubin 0.80 AST 75 H ALT 34 Alkaline Phosphatase 85 Troponin I < 0.015 Total Protein 7.0 Albumin 3.0 L Globulin 4.0 Albumin/Globulin Ratio 0.8 L Lipase 1249 H Urine Color Urine Clarity Urine pH Ur Specific [place] Urine Protein Urine Glucose (UA) Urine Ketones Urine Occult Blood Urine Nitrite Urine Bilirubin Urine Urobilinogen Ur Leukocyte Esterase Urine RBC Urine WBC Ur Squamous Epith Cells Urine Bacteria Hyaline Casts Urine Mucus 10/11/20 15:15 WBC RBC Hgb Hct MCV MCH MCHC RDW Std Deviation RDW Coeff of Mihir Plt Count MPV Immature Gran % (Auto) Neut % (Auto) Lymph % (Auto) [place] % (Auto) Eos % (Auto) Baso % (Auto) Absolute Neuts (auto) Absolute Lymphs (auto) Nucleated RBC % Sodium Potassium Chloride Carbon Dioxide Anion Gap BUN Creatinine Estim Creat Clear Calc Est GFR (MDRD) Af Amer Est GFR (MDRD) Non-Af BUN/Creatinine Ratio Glucose Calcium Magnesium Total Bilirubin AST ALT Alkaline Phosphatase Troponin I Total Protein Albumin Globulin Albumin/Globulin Ratio Lipase Urine Color Yellow Urine Clarity Sl. Cloudy Urine pH 6.0 Ur Specific [place] 1.015 Urine Protein 15 H Urine Glucose (UA) Normal Urine Ketones 5 H Urine Occult Blood 250 H Urine Nitrite Negative Urine Bilirubin Negative Urine Urobilinogen Normal Ur Leukocyte Esterase 25 H Urine RBC 5-10 SEEN Urine WBC 0-5 SEEN Ur Squamous Epith Cells 5-10 SEEN Urine Bacteria 1+ Hyaline Casts 0-5 SEEN Urine Mucus 0 SEEN Radiography Diagnostic Testing: Radiology Impression Abdomen/Pelvis CT 10/11/20 14:40 IMPRESSION: 1. No acute inflammatory process or bowel obstruction. 2. Stable chronic changes, as above. Electronically Signed: Bennett Man MD ([place]) at 16:34 EDT , Service support , EKG Initial EKG: Attestation: I personally reviewed and interpreted this EKG as follows: Interpretation: Sinus Rhythm and No Acute Injury Pattern Discharge Plan Dx/Rx/DC Orders Clinical Impression: Acute pancreatitis Disposition Disposition: Acute Care Hospital [facility]
[2020-10-11] MEDS: Ondansetron 4 MG/2 ML Vial IV (14:57)
[2020-10-11] MEDS: Morphine 4 MG/ML Syringe IV (14:57)
[2020-10-11 14:59] LABS: Absolute Lymphocyte Count 1.49 X10^3/uL (0.83-4.51); Absolute Neutrophil Count 2.5 X10^3/uL (2.0-7.7); Basophil# 0.01 X10^3/uL; Basophil% 0.2 % (0-1); Eosinophil# 0.03 X10^3/uL; Eosinophils% 0.7 % (0-5); Hematocrit 38.8 % (37-47); Hemoglobin 12.3 g/dL (12.0-15.0); Lymphocyte # 1.49 X10^3/ul (0.83-4.51); Mean Corp Hgb Conc 31.7 g/dL (32-36); Mean Corpuscular Hgb 30.2 pg (27.0-32.0); Mean Corpuscular Volume 95.3 fL (81-99); Mean Platelet Vol. 11.1 fl (6.2-12.0); Monocyte# 0.43 X10^3/uL; Monocyte% 9.5 % (0-10); NRBC Flagged by Analyzer 0 % (0-5); Neutrophil # 2.54 X10^3/uL (2.7-7.7); Neutrophil % 56.4 % (47-70); Platelet Count 160 K/mm3 (150-450); RBC Distribution Width SD 45.7 fl (35.1-43.9); Red Blood Count 4.07 M/mm3 (4.2-5.4); White Blood Count 4.5 K/mm3 (4.4-11.0)
[2020-10-11 15:26] LABS: Mucous, Urine 0 SEEN /hpf (<or=2+)
[2020-10-11 15:27] LABS: Color, Urine Yellow (Yellow); Glucose, Dipstick Normal (Normal); Ketone-Dipstick 5 mg/dl (Negative); Leukocyte Esterase-Dipstick 25 /ul (Negative); Nitrite-Dipstick Negative (Negative); Occult Blood-Urine 250 /ul (Negative); Protein-Dipstick 15 mg/dl (Negative); Specific Gravity, Urine 1.015 (1.002-1.030); Urine Bilirubin Dipstick Negative (Negative); Urine Clarity Sl. Cloudy (Clear); Urine Urobilinogen Normal (Normal)
[2020-10-11 15:34] LABS: ALB/GLOB Ratio 0.8 RATIO (0.9-2.4); AST(SGOT) 75 U/L (15-37); Alanine Aminotransfer ALT/SGPT 34 U/L (13-56); Alkaline Phosphatase 85 U/L (45-117); Anion Gap 9 (5-15); BUN 18 mg/dL (7-18); Calcium,Total 8.4 mg/dL (8.5-10.1); Chloride 102 mmol/L (98-107); EST Glomerular Filtration Rate 57 mL/min (>60); Est Glom Filt Rate - Afr Amer 69 mL/min (>60); Estimated Creatinine Clearance 54.97 ml/min; Glucose 111 mg/dL (74-106); Lipase 1249 U/L (73-393); Potassium 3.3 mmol/L (3.5-5.1); Sodium Level 139 mmol/L (136-145)
[2020-10-11 15:34] LABS: Bacteria 1+ /hpf (None Seen); Hyaline Cast 0-5 SEEN /lpf (0-5); Red Blood Cells-Urine 5-10 SEEN /hpf (0-5); Squamous Epithelial Cells - UA 5-10 SEEN /hpf (5-10); White Blood Cells 0-5 SEEN /hpf (0-5)
--- NOTE | 2020-10-11 16:03 | PCM.HP.STD ---
HPI - General HPI Narrative The patient is an 80 y/o F w/ PMHx: HTN, HLD, Obesity, BL LE chronic lymphedema, Hx prior pancreatitis, Hx Gastric Ulcer, GERD, Hiatal hernia, Non-obstructive CAD, Hx DVT who presents to the [facility] ED on 10/11/20 with onset epigastric abdominal pain, sharp described as stabbing sensation, 10/10 in severity starting on day of presentation however noting nausea, emesis and loose stools starting the day prior with poor appetite similar to prior presentations for acute pancreatitis prompting ED evaluation given not improving. Work-up in the ED included T 98.2, heart rate 72, BP 144/65, respiratory rate 15, on her percent on room air, CBC with WBC 4.5, hemoglobin 12.3, platelet 160 without marked shift, CMP with potassium 3.3, glucose 111, total bilirubin 0.8, AST/ALT 75/34, trope less than 0.015, lipase 1249, EKG with sinus rhythm with first-degree AV block with nonspecific ST-T wave changes with no acute evidence of ischemia, urinalysis with specific IV 1.015, protein 15, ketone 5, occult blood 250, negative nitrite, leukocytes esterase 25, 0-5 urine WBCs, 1+ urine bacteria otherwise not symptomatic therefore, CT abdomen and pelvis requested per ED physician but patient yet to go to imaging upon evaluation. [facility] Medical History (Updated 10/11/20 @ 16:[address] 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 Atherosclerotic heart disease of [place] coronary artery without angina pectoris Cellulitis of left leg Chronic venous hypertension (idiopathic) with inflammation of bilateral lower extremity Chronic venous hypertension (idiopathic) with ulcer of left lower extremity Chronic venous stasis dermatitis Decubitus ulcer of left buttock, stage 2 Diabetes Edema of both legs Essential hypertension Failure to thrive Generalized weakness GERD (gastroesophageal reflux disease) Heel spur Hiatal hernia history of cellulitis of leg Hx of venous thrombosis and embolism Hyperpigmentation of skin Hypertension Leg swelling Lipodermatosclerosis Localized edema Nausea 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 Obesity Osteoarthritis Palpitations Positional vertigo Post-phlebitic dermatosis of both lower extremities Pressure ulcer of right buttock, stage 3 Pure hypercholesterolemia Sludge in gallbladder Type 2 diabetes mellitus Type 2 diabetes mellitus with other circulatory complications Ulcer Venous stasis ulcer Home Medications famotidine 20 mg PO BID 01/15/17 [History Last Taken 04/14/19] irbesartan 75 mg PO DAILY 01/15/17 [History Last Taken 04/14/19] cyanocobalamin (vitamin B-12) 1,000 mcg/mL oral drops 1,000 mcg PO DAILY 09/21/17 [History Last Taken Unknown] meclizine 25 mg tablet 25 mg PO DAILY PRN 10/11/19 [History Last Taken Unknown] potassium chloride 10 mEq capsule,extended release 10 meq PO DAILY PRN 10/11/19 [History Last Taken Unknown] sucralfate 1 gram tablet 2 g PO DAILY PRN tab 10/11/19 [History Last Taken Unknown] torsemide 20 mg tablet 10 mg PO DAILY PRN tab 10/11/19 [History Last Taken Unknown] Allergy/AdvReac Type Severity Reaction Status Date / Time ezetimibe [From Zetia] Allergy Itching Verified 10/11/20 14:21 lisinopril Allergy Other Verified 10/11/20 14:21 neomycin [Neomycin] Allergy Unknown Verified 10/11/20 14:21 neomycin sulfate Allergy Itching Verified 10/11/20 14:21 [From Neosporin ([id number])] polymyxin B [Polymyxin B] Allergy Unknown Verified 10/11/20 14:21 Sulfa (Sulfonamide Allergy Unknown Verified 10/11/20 14:21 Antibiotics) tetracycline [Tetracycline] Allergy Itching Verified 10/11/20 14:21 adhesive tape AdvReac Severe Unknown Verified 10/11/20 14:21 atorvastatin calcium AdvReac Pain in Verified 10/11/20 14:21 [From Lipitor] joints Family History Mother CAD (coronary artery disease) Myocardial infarction Son Hypertension Brother Aortic aneurysm Father Diabetes Heart disease Surgical History H/O dilation and curettage history excision heel spur right foot History of cataract surgery History of cholecystectomy History of hernia repair History of left heart catheterization History of tubal ligation Lipoma Rectal fistula Social History (Updated 10/11/20 @ 16:[address] Ana Chand MD) household members: none Smoking Status: Never smoker alcohol intake: never substance use type: does not use caffeine: Yes Type: coffee Number of servings: 1 what type of physical activity do you participate in: none seatbelt use: always do you feel safe at home: Yes ROS ANDRE Narrative Admission Review of Systems: CONSTITUTIONAL: No weight loss, fever, chills, + weakness or fatigue. HEENT: Eyes: No visual loss, blurred vision, double vision or yellow sclerae. Ears, Nose, Throat: No hearing loss, sneezing, congestion, runny nose or sore throat. SKIN: + BL LE chronic venous stasis skin changes. No rash or itching, lesions, wounds. CARDIOVASCULAR: No chest pain, chest pressure or chest discomfort, palpitations, edema, orthopnea, syncopal events. RESPIRATORY: No shortness of breath, cough or sputum, wheezing, hemoptysis. GASTROINTESTINAL: + anorexia, nausea, vomiting, diarrhea, abdominal pain, No melena, BRBPR, GENITOURINARY: No dysuria, frequency, urgency or retention. NEUROLOGICAL: No headache, dizziness, syncope, paralysis, ataxia, numbness or tingling in the extremities, focal weakness, change in bowel or bladder control, seizure. MUSCULOSKELETAL: + muscle, back pain, joint pain or stiffness. HEMATOLOGIC: No anemia, bleeding or bruising. LYMPHATICS: No enlarged nodes. No history of splenectomy. PSYCHIATRIC: No history of depression or anxiety. ENDOCRINOLOGIC: No reports of sweating, cold or heat intolerance. No polyuria or polydipsia. ALLERGIES: No history of asthma, hives, eczema or rhinitis. Vital Signs Vital Signs Vital Signs: 10/11/20 14:21 Temperature 98.2 F Temperature Source Temporal Pulse Rate 72 Respiratory Rate 15 Blood Pressure 144/65 H Blood Pressure Mean 91 Pulse Ox 100 Oxygen Delivery Method Room Air Physical Exam Narrative Physical Examination: General: awake, alert, oriented x 3 and cooperative, seated upright in the ED bed, notes still uncomfortable, rating pain 5 out of 10, recent IV pain medication, and holding emesis bag. Skin: normal color, normal turgor, no icterus, no cyanosis except for noted bilateral lower extremity chronic venous stasis skin changes. HEENT: AT/NC, EOMI, PERRLA, dry MM, no carotid bruits or JVD noted. Lungs: CTA bilaterally, moderate effort, mild decrease BL bases, no rales, ronchi or wheezing. Heart: Regular rate and rhythm; no gallop, rub audible. Abdomen: soft, obese, epigastric discomfort however no rebound or guarding, no obvious distention, mildly distant hyperactive bowel sounds, no obvious HSM. Extremities: no cyanosis or clubbing, bilateral lower extremity chronic stasis skin changes, significant bilateral lower extremity lymphedema, chronic. Neurological: patient awake, alert, oriented x 3, cognitive function intact; pupils equally reactive to light and accommodation, cranial nerves II-XII grossly normal, moving all 4 extremities, no focal deficits, strength moderately to severely global decrease given acute presentation. Psychiatric: affect appears fatigued, mildly uncomfortable, no acute evidence of depressive or anxiety feelings. Lab / Micro Data Result Diagrams: 10/11/20 14:50 10/11/20 14:50 Labs: Laboratory Results - last 24 hr 10/11/20 10/11/20 10/11/20 14:50 14:50 15:15 WBC 4.5 RBC 4.07 L Hgb 12.3 Hct 38.8 MCV 95.3 MCH 30.2 MCHC 31.7 L RDW Std Deviation 45.7 H RDW Coeff of Mihir 13.0 Plt Count 160 MPV 11.1 Immature Gran % (Auto) 0.200 Neut % (Auto) 56.4 Lymph % (Auto) 33.0 [place] % (Auto) 9.5 Eos % (Auto) 0.7 Baso % (Auto) 0.2 Absolute Neuts (auto) 2.5 Absolute Lymphs (auto) 1.49 Nucleated RBC % 0 Sodium 139 Potassium 3.3 L Chloride 102 Carbon Dioxide 28.0 Anion Gap 9 BUN 18 Creatinine 1.00 Estim Creat Clear Calc 54.97 Est GFR (MDRD) Af Amer 69 Est GFR (MDRD) Non-Af 57 L BUN/Creatinine Ratio 18.0 Glucose 111 H Calcium 8.4 L Total Bilirubin 0.80 AST 75 H ALT 34 Alkaline Phosphatase 85 Troponin I < 0.015 Total Protein 7.0 Albumin 3.0 L Globulin 4.0 Albumin/Globulin Ratio 0.8 L Lipase 1249 H Urine Color Yellow Urine Clarity Sl. Cloudy Urine pH 6.0 Ur Specific [place] 1.015 Urine Protein 15 H Urine Glucose (UA) Normal Urine Ketones 5 H Urine Occult Blood 250 H Urine Nitrite Negative Urine Bilirubin Negative Urine Urobilinogen Normal Ur Leukocyte Esterase 25 H Urine RBC 5-10 SEEN Urine WBC 0-5 SEEN Ur Squamous Epith Cells 5-10 SEEN Urine Bacteria 1+ Hyaline Casts 0-5 SEEN Urine Mucus 0 SEEN Assessment & Plan Assessment/Plan (1) Acute pancreatitis: QUALIFIERS: Pancreatitis type: unspecified pancreatitis type Acute pancreatitis complication: unspecified Qualified Code(s): K85.90 - Acute pancreatitis without necrosis or infection, unspecified PLAN: The patient is an 80 y/o F w/ PMHx: HTN, HLD, Obesity, BL LE chronic lymphedema, Hx prior pancreatitis, Hx Gastric Ulcer, GERD, Hiatal hernia, Non-obstructive CAD, Hx DVT who presents to the [facility] ED on 10/11/20 with onset epigastric abdominal pain, sharp described as stabbing sensation, 10/10 in severity starting on day of presentation however noting nausea, emesis and loose stools starting the day prior with poor appetite similar to prior presentations for acute pancreatitis prompting ED evaluation given not improving. 1. Acute pancreatitis w/ abdominal pain, N/V: CT abdomen and pelvis pending upon admission, lipase 1249. Will admit to medical surgical floor if no acute findings on CT abdomen pelvis requiring transfer, maintain on IVFs, NPO, PPI, IV/po pain control, trend lipase, CMP. Patient status post prior cholecystectomy with hepatic profile not marked appearing. Will obtain FLP. Patient does have a history of prior from description possible gastric ulcer therefore if no obvious etiology may need upper endoscopy follow-up given recurrent pancreatitis as noted. 2. Hypokalemia: Admission K+ 3.3, magnesium level requested, supplementation given, repeat level in AM. 3. Hx of Diabetes mellitus type II: Patient not on regimen, last A1c she notes 5.4%, given presentation in the interim we will maintain n.p.o. status and obtain every 6 hours Accu-Cheks with insulin sliding scale but not de-escalate off if blood sugars remain appropriate. 4. History of DVT: Not on 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 therapy, will maintain on prophylaxis. 5. Hypertension: Continue home regimen including irbesartan with hold parameters, PRN hydralazine. 6. Hyperlipidemia: Not on regimen, FLP requested. 7. Nonobstructive CAD: Noted mild in history, hold aspirin given #1 with history of gastric ulcer as may be etiology for current presentation, not on beta-leobardo therapy, on ARB, not on statin currently as had de-escalate it off. 8. Bilateral lower extremity chronic venous stasis, lymphedema: We will placed on gapes wraps if able to tolerate, encourage elevation, discussed sleeping habits which include patient sleeping in a chair and noted that the lower extremity swelling would never improve if this continues. 9. GERD with history of hiatal hernia, history of possible gastric ulcer: IV PPI as noted, given presentation may require upper endoscopy given recurrent pancreatitis. 10. Obesity: Weight loss and lifestyle changes encouraged. 11. DVT prophylaxis: SCDs, Lovenox. 12. CODE status: Patient HCPOA is her daughter who is present and living will is currently in place. Discussed CODE status at length including difference between FULL code, DNR-CCA and DNR-CC status. Following discussions about the differences in these status, requested Full Code status. Advanced Care Planning Face to Face Time: 16 minutes. Visit Charges Inpatient E&M: 27052 Init Hosp L3 Procedures Hospitalists Procedures: 69546 Advncd Care Plan 30 Min
[2020-10-11 16:11] VITALS: BP 154/57; PULSE 83; RESP 15; TEMP 36.8
[2020-10-11 16:16] LABS: Magnesium 1.8 mg/dL (1.6-2.6)
[2020-10-11 16:57] VITALS: BMI 35.4
[2020-10-11 17:27] VITALS: BP 134/51; PULSE 76; RESP 16; TEMP 36.8; O2SAT 94
[2020-10-11] MEDS: 0.9% Normal Saline 1,000 ML 150 ML IV (18:22)
[2020-10-11] MEDS: Enoxaparin 40 MG/0.4 ML Syringe SC (18:22)
[2020-10-11] MEDS: 0.9% Saline Lock 10 ML Syringe IV (18:24)
[2020-10-11] MEDS: Potassium Chloride Oral Tablet 20 MEQ 40 MEQ PO (18:30)
[2020-10-11 20:19] VITALS: BP 137/57; PULSE 65; RESP 16; TEMP 36.4; O2SAT 97
[2020-10-11 23:30] LABS: Bedside Glucose 84 mg/dL (70-110)
[2020-10-12 00:35] LABS: Bedside Glucose 95 mg/dL (70-110)
[2020-10-12] MEDS: 0.9% Normal Saline 1,000 ML 150 ML IV ×2 (01:20→08:44)
[2020-10-12 02:26] VITALS: BP 152/60; PULSE 84; RESP 17; TEMP 37.2; O2SAT 93
[2020-10-12 06:11] LABS: Bedside Glucose 83 mg/dL (70-110)
[2020-10-12 07:17] VITALS: O2SAT 93
[2020-10-12 07:26] LABS: Absolute Lymphocyte Count 1.07 X10^3/uL (0.83-4.51); Basophil# 0.02 X10^3/uL; Basophil% 0.3 % (0-1); Eosinophil# 0.03 X10^3/uL; Eosinophils% 0.5 % (0-5); Hematocrit 36.8 % (37-47); Hemoglobin 11.8 g/dL (12.0-15.0); Lymphocyte # 1.07 X10^3/ul (0.83-4.51); Lymphocyte % 16.1 % (19-41); Mean Corp Hgb Conc 32.1 g/dL (32-36); Mean Corpuscular Hgb 31.6 pg (27.0-32.0); Mean Corpuscular Volume 98.4 fL (81-99); Monocyte# 0.55 X10^3/uL; Monocyte% 8.3 % (0-10); NRBC Flagged by Analyzer 0 % (0-5); Neutrophil # 4.95 X10^3/uL (2.7-7.7); Neutrophil % 74.5 % (47-70); Platelet Count 125 K/mm3 (150-450); RBC Distribution Width CV 13.1 % (11.6-14.6); RBC Distribution Width SD 47.4 fl (35.1-43.9); Red Blood Count 3.74 M/mm3 (4.2-5.4); White Blood Count 6.6 K/mm3 (4.4-11.0)
[2020-10-12 07:48] LABS: ALB/GLOB Ratio 0.7 RATIO (0.9-2.4); AST(SGOT) 210 U/L (15-37); Alanine Aminotransfer ALT/SGPT 140 U/L (13-56); Albumin, Serum 2.6 g/dL (3.2-5.0); Alkaline Phosphatase 126 U/L (45-117); Anion Gap 5 (5-15); BUN 12 mg/dL (7-18); BUN/Creat Ratio 14.3 RATIO (10-20); Chloride 110 mmol/L (98-107); Cholesterol 135 mg/dL (200); Creatinine, Serum 0.84 mg/dL (0.55-1.02); EST Glomerular Filtration Rate 69 mL/min (>60); Est Glom Filt Rate - Afr Amer 84 mL/min (>60); Estimated Creatinine Clearance 64.76 ml/min; Globulin 3.5 g/dL (2.2-4.2); Glucose 71 mg/dL (74-106); High Density Lipoprotein 54 mg/dL; Lipase 861 U/L (73-393); Potassium 3.9 mmol/L (3.5-5.1); Protein, Total 6.1 g/dL (6.4-8.2); Sodium Level 140 mmol/L (136-145); Triglycerides 89 mg/dL; Very Low Density Lipoprotein 18 mg/dL (5-40)
[2020-10-12 08:28] LABS: Magnesium 1.7 mg/dL (1.6-2.6)
[2020-10-12 09:01] VITALS: BP 118/52; PULSE 61; RESP 17; TEMP 36.8; O2SAT 96
[2020-10-12] MEDS: Cyanocobalamin 500 MCG Tablet 1000 MCG PO (09:13)
[2020-10-12] MEDS: Losartan Potassium 25 MG Tablet PO (09:13)
[2020-10-12] MEDS: Enoxaparin 40 MG/0.4 ML Syringe SC (09:13)
--- NOTE | 2020-10-12 11:20 | CASEMGMT ---
RN KATHERINE Face to Face with patient for initial transition planning/care coordination assessment. RN CM introduced self and role at [facility]. Patient lying in bed, alert and oriented. Patient willing to participate in assessment and is able to answer all questions appropriately. Care providers, pharmacy, and demographics verified. Patient wishes to discharge home, denies need for home health at this time. Patient states she has no further needs or concerns at this time. CM to follow for discharge planning needs that may arise. PCP: Mihaela SUPPLY CONTROLLER Specialists: Michelle, staff technologist; MATT Oates; Snow, jewel hole gauger Preferred Pharmacy: [facility] Insurance: [facility], [place] Prescription Benefit: yes Living Will/HPOA: yes, daughter Terrie Bowers HPOA LNOK: daughter and son Living Arrangements: Patient lives alone in a 2 story home with bed and bath on first floor. Patient states she is independent at home. Transportation: self/daughter DME/HHC: Patient states she has shower chair, raised toilet, cane, walker, grab bars at home. Patient denies previous HHC or SNF. Disposition Plan: Patient to discharge home with family support and follow-up plans in place. Lara JORDAN, RN, CM
--- NOTE | 2020-10-12 11:43 | PN.HOSP_ITS ---
Subjective Subjective: Patient was seen and examined. She denies any pain. She feels hungry. She has been passing gas. Yet to move her bowels. Denies any fever or chills Objective Data Objective Data Vital Signs: Vital Signs Temp Pulse Resp BP Pulse Ox 98.2 F 61 17 118/52 L 96 10/12/20 09:01 10/12/20 09:01 10/12/20 09:01 10/12/20 09:01 10/12/20 09:01 Oxygen Delivery Method Room Air Weight: 78.1 kg Body Mass Index (BMI) 35.4 Finger Stick Blood Glucose 80 Intake & Output: Intake and Output for Last 24 Hours 10/10/20 10/11/20 10/12/20 23:59 23:59 23:59 Intake Total 610 / 610 2109 Balance 610 / 610 2109 / 2109 Lab / Micro Data Result Diagrams: 10/12/20 06:15 10/12/20 06:15 Labs: Laboratory Results - last 24 hr 10/11/20 10/11/20 10/11/20 14:50 14:50 14:50 WBC 4.5 RBC 4.07 L Hgb 12.3 Hct 38.8 MCV 95.3 MCH 30.2 MCHC 31.7 L RDW Std Deviation 45.7 H RDW Coeff of Mihir 13.0 Plt Count 160 MPV 11.1 Immature Gran % (Auto) 0.200 Neut % (Auto) 56.4 Lymph % (Auto) 33.0 [place] % (Auto) 9.5 Eos % (Auto) 0.7 Baso % (Auto) 0.2 Absolute Neuts (auto) 2.5 Absolute Lymphs (auto) 1.49 Nucleated RBC % 0 Sodium 139 Potassium 3.3 L Chloride 102 Carbon Dioxide 28.0 Anion Gap 9 BUN 18 Creatinine 1.00 Estim Creat Clear Calc 54.97 Est GFR (MDRD) Af Amer 69 Est GFR (MDRD) Non-Af 57 L BUN/Creatinine Ratio 18.0 Glucose 111 H Calcium 8.4 L Magnesium 1.8 Total Bilirubin 0.80 AST 75 H ALT 34 Alkaline Phosphatase 85 Troponin I < 0.015 Total Protein 7.0 Albumin 3.0 L Globulin 4.0 Albumin/Globulin Ratio 0.8 L Triglycerides Cholesterol LDL Cholesterol VLDL Cholesterol HDL Cholesterol Lipase 1249 H Urine Color Urine Clarity Urine pH Ur Specific [place] Urine Protein Urine Glucose (UA) Urine Ketones Urine Occult Blood Urine Nitrite Urine Bilirubin Urine Urobilinogen Ur Leukocyte Esterase Urine RBC Urine WBC Ur Squamous Epith Cells Urine Bacteria Hyaline Casts Urine Mucus POC Glucose 10/11/20 10/11/20 10/11/20 15:15 18:24 23:27 WBC RBC Hgb Hct MCV MCH MCHC RDW Std Deviation RDW Coeff of Mihir Plt Count MPV Immature Gran % (Auto) Neut % (Auto) Lymph % (Auto) [place] % (Auto) Eos % (Auto) Baso % (Auto) Absolute Neuts (auto) Absolute Lymphs (auto) Nucleated RBC % Sodium Potassium Chloride Carbon Dioxide Anion Gap BUN Creatinine Estim Creat Clear Calc Est GFR (MDRD) Af Amer Est GFR (MDRD) Non-Af BUN/Creatinine Ratio Glucose Calcium Magnesium Total Bilirubin AST ALT Alkaline Phosphatase Troponin I Total Protein Albumin Globulin Albumin/Globulin Ratio Triglycerides Cholesterol LDL Cholesterol VLDL Cholesterol HDL Cholesterol Lipase Urine Color Yellow Urine Clarity Sl. Cloudy Urine pH 6.0 Ur Specific [place] 1.015 Urine Protein 15 H Urine Glucose (UA) Normal Urine Ketones 5 H Urine Occult Blood 250 H Urine Nitrite Negative Urine Bilirubin Negative Urine Urobilinogen Normal Ur Leukocyte Esterase 25 H Urine RBC 5-10 SEEN Urine WBC 0-5 SEEN Ur Squamous Epith Cells 5-10 SEEN Urine Bacteria 1+ Hyaline Casts 0-5 SEEN Urine Mucus 0 SEEN POC Glucose 95 84 10/12/20 10/12/20 10/12/20 06:01 06:15 06:15 WBC 6.6 RBC 3.74 L Hgb 11.8 L Hct 36.8 L MCV 98.4 MCH 31.6 MCHC 32.1 RDW Std Deviation 47.4 H RDW Coeff of Mihir 13.1 Plt Count 125 L MPV 12.0 Immature Gran % (Auto) 0.300 Neut % (Auto) 74.5 H Lymph % (Auto) 16.1 L [place] % (Auto) 8.3 Eos % (Auto) 0.5 Baso % (Auto) 0.3 Absolute Neuts (auto) 5.0 Absolute Lymphs (auto) 1.07 Nucleated RBC % 0 Sodium 140 Potassium 3.9 Chloride 110 H Carbon Dioxide 25.0 Anion Gap 5 BUN 12 Creatinine 0.84 Estim Creat Clear Calc 64.76 Est GFR (MDRD) Af Amer 84 Est GFR (MDRD) Non-Af 69 BUN/Creatinine Ratio 14.3 Glucose 71 L Calcium 8.0 L Magnesium Total Bilirubin 0.80 AST 210 H ALT 140 H Alkaline Phosphatase 126 H Troponin I Total Protein 6.1 L Albumin 2.6 L Globulin 3.5 Albumin/Globulin Ratio 0.7 L Triglycerides 89 Cholesterol 135 LDL Cholesterol 63 VLDL Cholesterol 18 HDL Cholesterol 54 Lipase 861 H Urine Color Urine Clarity Urine pH Ur Specific [place] Urine Protein Urine Glucose (UA) Urine Ketones Urine Occult Blood Urine Nitrite Urine Bilirubin Urine Urobilinogen Ur Leukocyte Esterase Urine RBC Urine WBC Ur Squamous Epith Cells Urine Bacteria Hyaline Casts Urine Mucus POC Glucose 83 10/12/20 06:15 WBC RBC Hgb Hct MCV MCH MCHC RDW Std Deviation RDW Coeff of Mihir Plt Count MPV Immature Gran % (Auto) Neut % (Auto) Lymph % (Auto) [place] % (Auto) Eos % (Auto) Baso % (Auto) Absolute Neuts (auto) Absolute Lymphs (auto) Nucleated RBC % Sodium Potassium Chloride Carbon Dioxide Anion Gap BUN Creatinine Estim Creat Clear Calc Est GFR (MDRD) Af Amer Est GFR (MDRD) Non-Af BUN/Creatinine Ratio Glucose Calcium Magnesium 1.7 Total Bilirubin AST ALT Alkaline Phosphatase Troponin I Total Protein Albumin Globulin Albumin/Globulin Ratio Triglycerides Cholesterol LDL Cholesterol VLDL Cholesterol HDL Cholesterol Lipase Urine Color Urine Clarity Urine pH Ur Specific [place] Urine Protein Urine Glucose (UA) Urine Ketones Urine Occult Blood Urine Nitrite Urine Bilirubin Urine Urobilinogen Ur Leukocyte Esterase Urine RBC Urine WBC Ur Squamous Epith Cells Urine Bacteria Hyaline Casts Urine Mucus POC Glucose Radiography Diagnostic Testing: Radiology Impression Abdomen/Pelvis CT 10/11/20 14:40 IMPRESSION: 1. No acute inflammatory process or bowel obstruction. 2. Stable chronic changes, as above. Electronically Signed: Bennett Man MD ([place]) at 16:34 EDT , Service support , Physical Exam Narrative General: awake, alert, oriented x 3 and cooperative, comfortable Skin: bilateral lower extremity chronic venous stasis skin changes. HEENT: AT/NC, EOMI, PERRLA, dry MM, no carotid bruits or JVD noted. Lungs: CTA bilaterally Heart: Regular rate and rhythm, no murmurs Abdomen: soft, obese, nontender, no palpable organs, bowel sounds present Extremities: bilateral lower extremity chronic stasis skin changes, significant bilateral lower extremity lymphedema, chronic. Neurological: Grossly intact Assessment & Plan Assessment/Plan (1) Acute pancreatitis: QUALIFIERS: Acute pancreatitis complication: unspecified Pancreatitis type: unspecified pancreatitis type Qualified Code(s): K85.90 - Acute pancreatitis without necrosis or infection, unspecified (2) Hypokalemia: (3) Hypomagnesemia: PLAN: 1. Acute pancreatitis, improving CT abdomen and pelvis showed normal pancreas Admitting lipase 1249; lipase today is 861. History of gastric ulcer, continue on IV PPI Patient kept n.p.o.; would start on clear liquid diet; will advance diet as tolerated 2. Hypokalemia, resolved 3. Hypomagnesemia, magnesium is 1.8, replaced, recheck in a.m. 4. Hx of Diabetes mellitus type II, blood sugars are controlled, not on any medications at home Last HbA1c is 5.4, will discontinue Accu-Cheks and ISS 5. Rest of chronic medical problems appear stable -rest of home medication continued Visit Charges Inpatient E&M: 69555 Subs Hosp L2
[2020-10-12 12:15] LABS: Bedside Glucose 64 mg/dL (70-110)
[2020-10-12 13:21] LABS: Bedside Glucose 82 mg/dL (70-110)
[2020-10-12 15:50] VITALS: BP 138/50; PULSE 62; RESP 18; TEMP 36.8; O2SAT 95
[2020-10-12] MEDS: 0.9% Normal Saline 1,000 ML 100 ML IV (18:53)
[2020-10-12 21:46] VITALS: BP 127/44; PULSE 60; RESP 16; TEMP 36.6; O2SAT 100
[2020-10-13] VITALS: PULSE 60
[2020-10-13 03:50] VITALS: BP 114/46; PULSE 61; RESP 16; TEMP 36.4; O2SAT 100
[2020-10-13] MEDS: 0.9% Normal Saline 1,000 ML 100 ML IV (05:18)
[2020-10-13 07:12] LABS: Absolute Lymphocyte Count 1.91 X10^3/uL (0.83-4.51); Basophil# 0.01 X10^3/uL; Basophil% 0.2 % (0-1); Eosinophil# 0.12 X10^3/uL; Eosinophils% 2.6 % (0-5); Hematocrit 34.5 % (37-47); Hemoglobin 10.9 g/dL (12.0-15.0); Lymphocyte # 1.91 X10^3/ul (0.83-4.51); Lymphocyte % 40.8 % (19-41); Mean Corp Hgb Conc 31.6 g/dL (32-36); Mean Corpuscular Hgb 31.1 pg (27.0-32.0); Mean Corpuscular Volume 98.3 fL (81-99); Mean Platelet Vol. 12.2 fl (6.2-12.0); Monocyte% 12.8 % (0-10); NRBC Flagged by Analyzer 0 % (0-5); Neutrophil # 2.03 X10^3/uL (2.7-7.7); Neutrophil % 43.4 % (47-70); Platelet Count 128 K/mm3 (150-450); RBC Distribution Width CV 13.2 % (11.6-14.6); RBC Distribution Width SD 47.2 fl (35.1-43.9); Red Blood Count 3.51 M/mm3 (4.2-5.4); White Blood Count 4.7 K/mm3 (4.4-11.0)
[2020-10-13 07:25] VITALS: O2SAT 98
[2020-10-13 07:37] LABS: ALB/GLOB Ratio 0.7 RATIO (0.9-2.4); AST(SGOT) 88 U/L (15-37); Alanine Aminotransfer ALT/SGPT 90 U/L (13-56); Albumin, Serum 2.5 g/dL (3.2-5.0); Alkaline Phosphatase 108 U/L (45-117); Anion Gap 5 (5-15); BUN 10 mg/dL (7-18); BUN/Creat Ratio 14.5 RATIO (10-20); Chloride 110 mmol/L (98-107); Creatinine, Serum 0.69 mg/dL (0.55-1.02); EST Glomerular Filtration Rate 87 mL/min (>60); Est Glom Filt Rate - Afr Amer 105 mL/min (>60); Estimated Creatinine Clearance 55.79 ml/min; Globulin 3.5 g/dL (2.2-4.2); Glucose 74 mg/dL (74-106); Magnesium 2.2 mg/dL (1.6-2.6); Potassium 3.8 mmol/L (3.5-5.1); Sodium Level 141 mmol/L (136-145)
[2020-10-13 08:24] VITALS: BP 146/64; PULSE 58; RESP 16; TEMP 36.6; O2SAT 98
[2020-10-13] MEDS: Enoxaparin 40 MG/0.4 ML Syringe SC (08:45)
[2020-10-13] MEDS: Losartan Potassium 25 MG Tablet PO (08:46)
[2020-10-13] MEDS: Cyanocobalamin 500 MCG Tablet 1000 MCG PO (08:46)
[2020-10-13 09:01] LABS: Bedside Glucose 76 mg/dL (70-110)
--- NOTE | 2020-10-13 10:32 | DS.PCM_ITS ---
Providers Date of Admission: 10/11/20 Primary Care Physician: WILL BarbosaC Reason For Visit: ACUTE PANCREATITIS Diagnosis Discharge Diagnosis (1) Acute pancreatitis: Status: Resolved Code(s): K85.90 - Acute pancreatitis without necrosis or infection, unspecified Qualifiers: Acute pancreatitis complication: unspecified Pancreatitis type: unspecified pancreatitis type Qualified Code(s): K85.90 - Acute pancreatitis without necrosis or infection, unspecified (2) Hypokalemia: Status: Resolved Code(s): E87.6 - Hypokalemia (3) Hypomagnesemia: Status: Resolved Code(s): E83.42 - Hypomagnesemia Medications at Discharge Home Medications irbesartan 75 mg PO DAILY 01/15/17 cyanocobalamin (vitamin B-12) 1,000 mcg/mL oral drops 1,000 mcg PO DAILY 09/21/17 potassium chloride 10 mEq capsule,extended release 10 meq PO DAILY PRN 10/11/19 sucralfate 1 gram tablet 2 g PO DAILY PRN tab 10/11/19 nystatin 400,000 unit BUCCAL 4X/DAY #473 ml NS 10/13/20 pantoprazole 40 mg PO BID #60 tab 10/13/20 Hospital Course Operations None Procedures None Summary of Care Provided Minutes Spent on Discharge: 40 Hospital Course: 80-year-old with multiple comorbidities significant for recurrent pancreatitis, who presented with epigastric pain that started suddenly on the day of presentation, associated with nausea vomiting and loose stools. Patient's vitals in the ED were stable. Her admitting blood work was sent for count for lipase of 1249. CT of the abdomen and pelvis showed no acute abnormalities, pancreas was normal. Patient was managed symptomatically in the hospital, kept n.p.o., IV fluids with improvement in her lipase. She was advan ronal in her diet and she tolerated the advancement. She was discharged on pantoprazole 40 mg p.o. twice daily. No specific etiology was found for this pancreatitis. She was asked to follow-up with Dr. Estevez in the outpatient within 2 weeks. Physical Exam Narrative General: awake, alert, oriented x 3 and cooperative, comfortable Skin: bilateral lower extremity chronic venous stasis skin changes. HEENT: AT/NC, EOMI, PERRLA, dry MM, no carotid bruits or JVD noted. Lungs: CTA bilaterally Heart: Regular rate and rhythm, no murmurs Abdomen: soft, obese, nontender, no palpable organs, bowel sounds present Extremities: bilateral lower extremity chronic stasis skin changes, significant bilateral lower extremity lymphedema, chronic. Neurological: Grossly intact ABG / Lab / Microbiology Data Result Diagrams: 10/13/20 06:05 10/13/20 06:05 Laboratory: Laboratory Results - last 24 hr 10/12/20 10/12/20 10/13/20 12:13 13:02 06:05 WBC 4.7 RBC 3.51 L Hgb 10.9 L Hct 34.5 L MCV 98.3 MCH 31.1 MCHC 31.6 L RDW Std Deviation 47.2 H RDW Coeff of Mihir 13.2 Plt Count 128 L MPV 12.2 H Immature Gran % (Auto) 0.200 Neut % (Auto) 43.4 L Lymph % (Auto) 40.8 [place] % (Auto) 12.8 H Eos % (Auto) 2.6 Baso % (Auto) 0.2 Absolute Neuts (auto) 2.0 Absolute Lymphs (auto) 1.91 Nucleated RBC % 0 Sodium Potassium Chloride Carbon Dioxide Anion Gap BUN Creatinine Estim Creat Clear Calc Est GFR (MDRD) Af Amer Est GFR (MDRD) Non-Af BUN/Creatinine Ratio Glucose Calcium Magnesium Total Bilirubin AST ALT Alkaline Phosphatase Total Protein Albumin Globulin Albumin/Globulin Ratio POC Glucose 64 L 82 10/13/20 10/13/20 06:05 08:22 WBC RBC Hgb Hct MCV MCH MCHC RDW Std Deviation RDW Coeff of Mihir Plt Count MPV Immature Gran % (Auto) Neut % (Auto) Lymph % (Auto) [place] % (Auto) Eos % (Auto) Baso % (Auto) Absolute Neuts (auto) Absolute Lymphs (auto) Nucleated RBC % Sodium 141 Potassium 3.8 Chloride 110 H Carbon Dioxide 26.0 Anion Gap 5 BUN 10 Creatinine 0.69 Estim Creat Clear Calc 55.79 Est GFR (MDRD) Af Amer 105 Est GFR (MDRD) Non-Af 87 BUN/Creatinine Ratio 14.5 Glucose 74 Calcium 8.0 L Magnesium 2.2 Total Bilirubin 0.80 AST 88 H ALT 90 H Alkaline Phosphatase 108 Total Protein 6.0 L Albumin 2.5 L Globulin 3.5 Albumin/Globulin Ratio 0.7 L POC Glucose 76 D/C Instructions Discharge Diet: No restrictions Discharge Activity: Return to Normal Activity Meaningful Use Info Meaningful Use Diagnoses (Choose all that apply): None applicable Discharge Plan Admission Admit Date/Time: 10/11/20 16:03 Primary Reason for Your Visit: Acute pancreatitis Attending Provider: Alcira Vanegas Primary Care Provider: Lesly Chairez NP Instructions Additional Instructions / Restrictions: Continue to keep yourself hydrated. Take note of changes to medications. Follow-up with your primary care doctor within 1 to 2 weeks. Follow-up with the general surgeon within 2 weeks. Discharge Orders/Prescriptions Prescriptions: New pantoprazole 40 mg tablet,delayed release (DR/EC) 40 mg PO BID Qty: 60 RF: 0 nystatin 100,000 unit/mL suspension 400,000 unit buccal 4X/DAY Qty: 473 RF: 0 Continued cyanocobalamin (vitamin B-12) [Vitamin B-12] 1,000 mcg/mL drops 1,000 mcg PO DAILY RF: 0 potassium chloride 10 mEq capsule, extended release 10 meq PO DAILY PRN (Reason: HYPOKALEMIA) RF: 0 irbesartan 75 MG tablet 75 mg PO DAILY RF: 0 sucralfate 1 gram tablet 2 g PO DAILY PRN (Reason: GERD) RF: 0 Discontinued meclizine 25 mg tablet 25 mg PO DAILY PRN (Reason: Dizziness) RF: 0 torsemide 20 mg tablet 10 mg PO DAILY PRN (Reason: Dizziness) RF: 0 famotidine 20 MG tablet 20 mg PO BID RF: 0 Referrals / Follow Up: Spencer Estevez MD [STAFF PHYSICIAN] - Within 2 Weeks Lesly Chairez NP, CONSTRUCTION SERVICES TECHNICIAN-C [Primary Care Provider] - Disposition Disposition (needs filled in before D/C Order can be placed): Home, self care Visit Charges Inpatient E&M: 68635 Disch Hosp
[2020-10-13 13:40] VITALS: BP 150/66; PULSE 65; RESP 16; TEMP 36.7; O2SAT 100
--- NOTE | 2020-10-13 15:00 | PHA.DC.MR ---
Pharmacy Service has performed discharge medication reconciliation for this patient. The patient's discharge medication list was reviewed for discrepancies and discrepancies were resolved. Home Medications irbesartan 75 mg PO DAILY 01/15/17 cyanocobalamin (vitamin B-12) 1,000 mcg/mL oral drops 1,000 mcg PO DAILY 09/21/17 potassium chloride 10 mEq capsule,extended release 10 meq PO DAILY PRN 10/11/19 sucralfate 1 gram tablet 2 g PO DAILY PRN tab 10/11/19 nystatin 400,000 unit BUCCAL 4X/DAY #473 ml NS 10/13/20 pantoprazole 40 mg PO BID #60 tab 10/13/20
--- NOTE | 2020-10-14 13:33 | NURSING ---
LAURA DC F/u Call DC Date: 10/13/20 Discharge Diagnosis (1) Acute pancreatitis: Status: Resolved Code(s): K85.90 - Acute pancreatitis without necrosis or infection, unspecified Qualifiers: Acute pancreatitis complication: unspecified Pancreatitis type: unspecified pancreatitis type Qualified Code(s): K85.90 - Acute pancreatitis without necrosis or infection, unspecified (2) Hypokalemia: Status: Resolved Code(s): E87.6 - Hypokalemia (3) Hypomagnesemia: Status: Resolved Code(s): E83.42 - Hypomagnesemia DC Disposition: Home Lace/Strata: 03/07 Called patient listed number, patient answered. This video games storywriter introduced self and role. Patient states that she is doing better, confirmed her dtr picked up her DC medication. Has not made her F/u appt with Rj yet but states she does see Dr Oates. Answered questions and clarified her stopped medication on ACI. Ferny any further questions, issues or concerns with medications, ACI or f/u. Thanked patient for choosing care at [facility] and ended conversation. LAURA Corea
== END 2020-10-13 14:00 | disposition home or self-care (01) | DRG 440 ==
LOC: ED 16:12 → MS3 16:17
PROVIDERS: Admitting Provider Family Medicine; Emergency Provider Emergency Medicine; PCP Nurse Practitioner; Visit Provider Internal Medicine
DX: K85.90 Acute pancreatitis without necrosis or infection, unspecified (principal); E87.6 Hypokalemia; E83.42 Hypomagnesemia; E66.9 Obesity, unspecified; E11.9 Type 2 diabetes mellitus without complications; Z86.718 Personal history of other venous thrombosis and embolism; I10 Essential (primary) hypertension; E78.5 Hyperlipidemia, unspecified; I25.10 Atherosclerotic heart disease of native coronary artery without angina pectoris; I87.8 Other specified disorders of veins; K21.9 Gastro-esophageal reflux disease without esophagitis; K86.1 Other chronic pancreatitis; Z79.899 Other long term (current) drug therapy; Z68.35 Body mass index [BMI] 35.0-35.9, adult; Z87.11 Personal history of peptic ulcer disease
CPT/HCPCS: 36415; 74177; 80053; 80061; 81001; 82962; 83690; 83735; 84484; 85025; 93005; 97802; 99251; 99284; J7030; J7040; Q9967; A4216; G0463; J2405

== ENCOUNTER → 2020-10-26 10:57 | Outpatient (CLI) | payer MEDICARE, OTHER, SELFPAY ==
[2020-10-26 10:10] VITALS: BMI 35.4
--- NOTE | 2020-10-26 10:58 | MRI_ITS ---
STUDY: MR MRCP WITHOUT CONTRAST REASON FOR EXAM: Female, 80 years old. Dilated bile duct TECHNIQUE: Standard MRCP technique was utilized. 3-D post processed images were created. COMPARISON: None. FINDINGS: The study is limited by patient motion. The patient is status post cholecystectomy. The common bile duct is dilated, measuring up to 11 mm. There is mild intrahepatic biliary duct dilatation. This is stable when compared with the CT dated 10/11/20. The pancreatic duct is normal in caliber. There are no ductal stones identified. Evaluation of the abdominal organs is limited without intravenous contrast. The liver, spleen, pancreas and adrenal glands are normal in contour and signal intensity. There is a 1.2 cm cyst in the left kidney. There is no hydronephrosis. There is a stable small hiatal hernia. The visualized bowel demonstrates no evidence of obstruction. The aorta is normal in caliber. MRI/MRCP Abdomen without Contrast IMPRESSION: Study limited by patient motion. Status post cholecystectomy. Stable mild intrahepatic biliary duct dilatation and dilated common bile duct. No ductal stones identified. Electronically Signed: Luis Felipe Christina MD at 16:28 EDT Tel , Service support ,
== END ==
PROVIDERS: PCP Nurse Practitioner; Referring Provider Surgery; Visit Provider Surgery
DX: K83.8 Other specified diseases of biliary tract (principal)
CPT/HCPCS: 74181

== ENCOUNTER → 2020-11-30 12:49 | Outpatient (CLI) | payer MEDICARE, OTHER, SELFPAY ==
[2020-10-26 10:10] VITALS: BMI 35.4
--- NOTE | 2020-11-30 12:52 | ART_ITS ---
Reason For Study: Peripheral vascular insufficiency Procedure A bilateral upper extremity continuous wave Doppler with analog waveform analysis and segmental pressures. Left Segmental Pressures Left brachial= 143mmHg. Left ulnar= 171mmHg. Left radial= 170mmHg. The left radial waveforms are triphasic. The left ulnar waveforms are triphasic. Right Segmental Pressures Right brachial= 146mmHg. Right ulnar= 162mmHg. Right radial= 162mmHg. The right ulnar waveforms are triphasic. The right radial waveforms are triphasic. Indices Right wrist-brachial index by radial artery is 1.11. Right wrist-brachial index by ulnar artery is 1.11. Left wrist-brachial index by radial artery is 1.16. Left wrist-brachial index by ulnar artery is 1.17. VL/Upper Extremity Arterial Study Interpretation Summary Triphasic Doppler waveforms are noted at wrist level bilaterally. Pulse-volume recordings are satisfactory at all levels bilaterally. Wrist-brachial indices are normal bilat erally. There is no evidence of significant arterial occlusive disease in the upper ext remities bilaterally. Ordering Physician: Lesly Chairez Referring Physician: Lesly Chairez Performed By: Lara Johnson RVT and Student
--- NOTE | 2020-11-30 12:52 | ART_ITS ---
Reason For Study: Peripheral vascular insufficiency Procedure A bilateral lower extremity continuous wave Doppler with analog waveform analysis,segmental pressures,and ankle brachial indexes without exercise. Left Segmental Pressures Left brachial= 143mmHg. Left posterior tibial artery = >254mmHg. Left dorsalis pedis artery = 155mmHg. Left digit = 68 mmHg. The left dorsalis pedis waveforms are triphasic. The left posterior tibial artery waveforms are triphasic. Right Segmental Pressures Right brachial= 146mmHg. Right posterior tibial artery = >254mmHg. Right dorsalis pedis artery = >254mmHg. Right digit = 88 mmHg. The right dorsalis pedis waveforms are triphasic. The right posterior tibial artery waveforms are triphasic. Indices The right ankle brachial index by the dorsalis pedis is NC. The right ankle brachial index by the posterior tibial artery is NC. The right digital-brachial index is 0.55. The left ankle brachial index by the dorsalis pedis is 1.06. The left ankle brachial index by the posterior tibial artery is NC. The left digital-brachial index is 0.47. VL/Lower Ext Art Exam w/o Exercis Interpretation Summary Triphasic Doppler waveforms are noted at ankle level bilaterally. Pulse-volume recordings appear satisfactory at all levels bilaterally. The resting right ankle-brachial index could not be determined due to the non-compressibility of the vasculature. The resting left ankle-brachial index is normal. The right digital-brachial index is mildly diminished. The left digi wicho-brachial index is moderately diminished. There is evidence of arterial calcification at ankle level bilaterally, particu larly on the right. Arterial flow appears normal at ankle level bilaterally. There is evidence of m ild, distal, small- vessel arterial occlusive disease at digital level on the right. There is evide nce of moderate, distal, small-vessel arterial occlusive disease at digital level on the left. Ordering Physician: Lesly Chairez Referring Physician: Lesly Chairez Performed By: Lara Johnson RVT and Student
== END ==
PROVIDERS: PCP Nurse Practitioner; Referring Provider Nurse Practitioner; Visit Provider Nurse Practitioner
DX: I73.9 Peripheral vascular disease, unspecified (principal)
CPT/HCPCS: 93923

== ENCOUNTER 2020-12-21 20:13 | Inpatient (IN) | payer MEDICARE, OTHER, SELFPAY ==
[2020-10-26 10:10] VITALS: BMI 35.4
[2020-12-21] VITALS (10 sets, daily range): BP systolic 112–162; BP diastolic 48–75; PULSE 86–99; RESP 16–20; TEMP 36.9–37.4; O2SAT 96–100; BMI 35.3
--- NOTE | 2020-12-21 21:53 | EKG12_ITS ---
Test Reason : CP Blood Pressure : / mmHG Vent. Rate : 081 BPM Atrial Rate : 081 BPM P-R Int : 236 ms QRS Dur : 092 ms QT Int : 380 ms P-R-T Axes : 049 -59 068 degrees QTc Int : 441 ms Sinus rhythm with 1st degree A-V block Left axis deviation Poor R wave progression Abnormal ECG Confirmed by NATALIA BAUTISTA, MARY ([id number]), map editor BARBARA JACOBO ([id number]) on 12/23/2020 12:38:43 PM Referred By: SALVADOR Confirmed By:MARY FISHER MD
[2020-12-21 22:38] LABS: Absolute Lymphocyte Count 0.23 X10^3/uL (0.83-4.51); Absolute Neutrophil Count 12.7 X10^3/uL (2.0-7.7); Basophil# 0.04 X10^3/uL; Basophil% 0.3 % (0-1); Eosinophil# 0.01 X10^3/uL; Eosinophils% 0.1 % (0-5); Hematocrit 38.3 % (37-47); Hemoglobin 12.6 g/dL (12.0-15.0); Lymphocyte # 0.23 X10^3/ul (0.83-4.51); Lymphocyte % 1.7 % (19-41); Mean Corp Hgb Conc 32.9 g/dL (32-36); Mean Corpuscular Hgb 31.1 pg (27.0-32.0); Mean Corpuscular Volume 94.6 fL (81-99); Mean Platelet Vol. 11.4 fl (6.2-12.0); Monocyte# 0.45 X10^3/uL; Monocyte% 3.4 % (0-10); NRBC Flagged by Analyzer 0 % (0-5); Neutrophil # 12.66 X10^3/uL (2.7-7.7); Neutrophil % 94.3 % (47-70); POSITIVE DIFFERENTIAL YES; Platelet Count 156 K/mm3 (150-450); RBC Distribution Width CV 12.7 % (11.6-14.6); RBC Distribution Width SD 44.4 fl (35.1-43.9); Red Blood Count 4.05 M/mm3 (4.2-5.4); White Blood Count 13.4 K/mm3 (4.4-11.0)
[2020-12-21 22:46] LABS: Differential Indicated SCAN CRITERIA MET
[2020-12-21 22:49] LABS: International Normalized Ratio 1.1; Prothrombin Time (Protime)PT. 13.2 SECONDS (11.7-14.9)
[2020-12-21 22:50] LABS: Partial Thromboplast Time 25.7 Seconds (24.1-36.2)
[2020-12-21 22:57] LABS: ALB/GLOB Ratio 0.9 RATIO (0.9-2.4); AST(SGOT) 23 U/L (15-37); Alanine Aminotransfer ALT/SGPT 18 U/L (13-56); Albumin, Serum 3.4 g/dL (3.2-5.0); Alkaline Phosphatase 64 U/L (45-117); Anion Gap 7 (5-15); BUN 19 mg/dL (7-18); BUN/Creat Ratio 17.6 RATIO (10-20); Calcium,Total 9.2 mg/dL (8.5-10.1); Chloride 103 mmol/L (98-107); Creatinine, Serum 1.08 mg/dL (0.55-1.02); EST Glomerular Filtration Rate 52 mL/min (>60); Est Glom Filt Rate - Afr Amer 63 mL/min (>60); Estimated Creatinine Clearance 49.44 ml/min; Globulin 3.9 g/dL (2.2-4.2); Glucose 119 mg/dL (74-106); Potassium 4.1 mmol/L (3.5-5.1); Protein, Total 7.3 g/dL (6.4-8.2); Sodium Level 137 mmol/L (136-145)
[2020-12-21] MEDS: Morphine 4 MG/ML Syringe IV (23:06)
[2020-12-21 23:08] LABS: Differential Comment SCANNED
[2020-12-21 23:10] LABS: Lactic Acid 1.6 mmol/L (0.4-1.9)
--- NOTE | 2020-12-21 23:41 | EX.ED.DYSGE1 ---
HPI History of Present Illness Chief Complaint: Cellulitis Detail of Chief Complaint: Left lower extremity, leg Informant: patient and family Onset/Context/Timing Onset: Days (Onset a couple days.) Context: Sudden Onset Timing: Continuous Quality: Erythematous rash distal left leg with mild drainage Location: Left distal leg Current Severity: Moderate Maximum Severity: Moderate Worsened by: Scratching Relieved by: Nothing Associated Symptoms Associated Symptoms: Fever to 101.0 ?F, nausea vomiting Narrative Narrative: Patient is an elderly woman who has multiple medical problems who was seen by her PCP and placed on cephalexin. A culture of the wound was obtained. The wound is superficial. She had documented fever with shaking chills. She took 1 dose of cephalexin. She has had vomiting was not able to keep the medicine down. She contacted her primary care provider, Lesly colunga. She recommended she come to the emergency department. She denies headache, visual, ocular auditory symptoms. She denies cardiac respiratory symptoms. She denies hematemesis. She denies black or maroon-colored stool. She denies dysuria, frequency, urgency or hematuria. She states she has type 2 diabetes controlled by diet. She has had prior infections. She does have history of venous stasis dermatitis. 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 Cellulitis of left leg Chronic venous hypertension (idiopathic) with inflammation of bilateral lower extremity Chronic venous hypertension (idiopathic) with ulcer of left lower extremity Chronic venous stasis dermatitis Decubitus ulcer of left buttock, stage 2 Diabetes Edema of both legs Essential hypertension Failure to thrive Generalized weakness GERD (gastroesophageal reflux disease) Heel spur Hiatal hernia history of cellulitis of leg Hx of venous thrombosis and embolism Hyperpigmentation of skin Hypertension Leg swelling Lipodermatosclerosis Localized edema Nausea 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 Obesity Osteoarthritis Palpitations Positional vertigo Post-phlebitic dermatosis of both lower extremities Pressure ulcer of right buttock, stage 3 Pure hypercholesterolemia Sludge in gallbladder Ulcer Venous stasis ulcer Home Medications irbesartan 75 mg PO DAILY 01/15/17 [History Last Taken 10/10/20] potassium chloride 10 mEq capsule,extended release 10 meq PO DAILY PRN 10/11/19 [History Last Taken Unknown] torsemide 20 mg DAILY 12/21/20 [History Last Taken Unknown] Allergy/AdvReac Type Severity Reaction Status Date / Time ezetimibe [From Zetia] Allergy Itching Verified 12/21/20 20:56 lisinopril Allergy cough Verified 12/21/20 20:56 neomycin [Neomycin] Allergy gets in Verified 12/21/20 20:56 blood stream and pass out neomycin sulfate Allergy Itching Verified 12/21/20 20:56 [From Neosporin ([id number])] polymyxin B [Polymyxin B] Allergy Unknown Verified 12/21/20 20:56 Sulfa (Sulfonamide Allergy Unknown Verified 12/21/20 20:56 Antibiotics) tetracycline [Tetracycline] Allergy Itching Verified 12/21/20 20:56 adhesive tape AdvReac Severe pulls Verified 12/21/20 20:56 skin atorvastatin calcium AdvReac Pain in Verified 12/21/20 20:56 [From Lipitor] joints, muscle damage Family History Mother CAD (coronary artery disease) Myocardial infarction Son Hypertension Brother Aortic aneurysm Father Diabetes Heart disease Surgical History H/O dilation and curettage history excision heel spur right foot History of cataract surgery History of cholecystectomy History of hernia repair History of left heart catheterization History of tubal ligation Lipoma Rectal fistula Social History household members: none Smoking Status: Never smoker alcohol intake: never substance use type: does not use caffeine: Yes Type: coffee Number of servings: 1 what type of physical activity do you participate in: none seatbelt use: always do you feel safe at home: Yes ROS ROS ED Constitutional Constitutional ED: Reports chills and fever(s); Denies subjective or sweats Eyes Eyes: Denies blurry vision, change in vision or diplopia ENT ENT ED: Denies ear pain, rhinorrhea or sore throat Cardiovascular Cardiovascular: Denies chest pain, orthopnea or palpitations Respiratory/Chest Respiratory/Chest: Denies cough, dyspnea, dyspnea on exertion or orthopnea Gastrointestinal Gastrointestinal: Reports nausea and vomiting; Denies abdominal pain or diarrhea Genitourinary Genitourinary ED: Denies dysuria, hematuria or urinary frequency Musculoskeletal Musculoskeletal: Denies arthralgias, back pain, myalgias or neck pain Integumentary Reports Abrasions Neurologic Neurologic: Denies headache(s), paresthesias or weakness Endocrine Endocrinology: Denies polydipsia, polyphagia or polyuria Allergic/Immunologic Allergic/Immunologic ED: Denies urticaria EXAM Physical Exam Const Vital Signs: 12/21/20 20:14 12/21/20 20:16 12/21/20 21:32 Temperature 98.4 F 98.4 F 98.4 F Temperature Source Oral Oral Oral Pulse Rate 99 99 92 Respiratory Rate 16 16 18 Blood Pressure 144/54 H 144/54 H 162/71 H Blood Pressure Mean 84 84 101 Pulse Ox 100 100 99 Oxygen Delivery Method Room Air Room Air Room Air 12/21/20 22:08 12/21/20 22:15 12/21/20 22:16 Temperature 98.7 F Temperature Source Temporal Pulse Rate 92 90 Respiratory Rate 16 20 H Blood Pressure 154/75 H 154/75 H Blood Pressure Mean 101 101 Pulse Ox 97 97 97 Oxygen Delivery Method Room Air Room Air Room Air 12/21/20 22:51 12/21/20 23:08 12/21/20 23:10 Temperature 98.9 F 99.4 F H 99.4 F H Temperature Source Oral Oral Oral Pulse Rate 90 92 Respiratory Rate 19 H 18 Blood Pressure 135/48 H 135/48 H Blood Pressure Mean 77 77 Pulse Ox 96 97 Oxygen Delivery Method Room Air Room Air Positive well nourished, well developed and obese General Appearance ED: well developed and other Patient does not appear well. Nutritional Appearance: obese HEENT Reports TM's clear and moist mucous membranes HEENT Narrative: Face is symmetric. Ears are normal. Nares patent. Posterior pharynx unremarkable. Tympanic Membrane ED: Yes TM's clear Eyes PERRL and EOMs intact bilaterally General Eye ED: Negative for pale conjunctiva or scleral icterus Neck no lymphadenopathy, supple and no JVD Resp normal respiratory effort and clear to auscultation bilaterally Auscultation: Negative for diminished lung sounds Cardio regular rate, regular rhythm, S1 normal heart sound, S2 normal heart sound and no murmurs GI normal to inspection, nondistended, normoactive bowel sounds and non-tender Palpation: soft Back/Spine Negative for no CVA tenderness Thoracic Spine / Upper Back: Negative for paraspinal muscle tenderness Lumbar Spine / Lower Back: Negative for lumbar spinal tenderness Extremity Negative for normal to inspection Extremity Narrative: Patient has evidence of venous stasis dermatitis. There is discoloration of the distal third of the right leg. There is no wounds. There is no lymphangitis, popliteal or inguinal lymphadenopathy. There is erythema with warmth induration distal left leg with open wounds. There is no drainage. There is no lymphangitis, popliteal or inguinal lymphadenopathy. There is swelling of the foot. There is no involvement of the foot. General Extremety ED: Yes edema, tenderness and other findings General Extremity: edema and other findings Neuro oriented x3, CN's II-XII intact bilaterally and no sensory deficits noted Sensorium / Orientation: alert Motor Exam: strength 5/5 throughout Psych mental status grossly normal Skin No no wounds Skin Narrative: Previously described Wounds: wounds noted MDM MDM MDM Narrative Medical decision making narrative: Patient has evidence of cellulitis. With documented fever heart rate of 101 sepsis work was undertaken. She was treated with Zosyn and vancomycin since she is diabetic. She probably will require observation since she has nausea and vomiting unable to drink or take the medication she was prescribed by her primary care provider. Lab Data Attestation: I reviewed the patient's lab results. Lab results narrative: White count is elevated with shift. Coags normal. Creatinine slightly elevated at 1.08. This is up from baseline. Lactate is normal. Hepatic/liver enzymes are normal. Blood sugar is 119 which is slightly elevated. Labs: Laboratory Results - last 24 hr 12/21/20 12/21/20 12/21/20 22:26 22:26 22:26 WBC 13.4 H RBC 4.05 L Hgb 12.6 Hct 38.3 MCV 94.6 MCH 31.1 MCHC 32.9 RDW Std Deviation 44.4 H RDW Coeff of Mihir 12.7 Plt Count 156 MPV 11.4 Immature Gran % (Auto) 0.200 Neut % (Auto) 94.3 H Lymph % (Auto) 1.7 L [place] % (Auto) 3.4 Eos % (Auto) 0.1 Baso % (Auto) 0.3 Absolute Neuts (auto) 12.7 H Absolute Lymphs (auto) 0.23 L Nucleated RBC % 0 Differential Comment SCANNED PT 13.2 INR 1.1 APTT 25.7 Sodium 137 Potassium 4.1 Chloride 103 Carbon Dioxide 27.0 Anion Gap 7 BUN 19 H Creatinine 1.08 H Estim Creat Clear Calc 49.44 Est GFR (MDRD) Af Amer 63 Est GFR (MDRD) Non-Af 52 L BUN/Creatinine Ratio 17.6 Glucose 119 H Lactic Acid Calcium 9.2 Total Bilirubin 0.90 AST 23 ALT 18 Alkaline Phosphatase 64 Total Protein 7.3 Albumin 3.4 Globulin 3.9 Albumin/Globulin Ratio 0.9 12/21/20 22:26 WBC RBC Hgb Hct MCV MCH MCHC RDW Std Deviation RDW Coeff of Mihir Plt Count MPV Immature Gran % (Auto) Neut % (Auto) Lymph % (Auto) [place] % (Auto) Eos % (Auto) Baso % (Auto) Absolute Neuts (auto) Absolute Lymphs (auto) Nucleated RBC % Differential Comment PT INR APTT Sodium Potassium Chloride Carbon Dioxide Anion Gap BUN Creatinine Estim Creat Clear Calc Est GFR (MDRD) Af Amer Est GFR (MDRD) Non-Af BUN/Creatinine Ratio Glucose Lactic Acid 1.6 Calcium Total Bilirubin AST ALT Alkaline Phosphatase Total Protein Albumin Globulin Albumin/Globulin Ratio Discharge Plan Triage Chief Complaint: Cellulitis ED Provider: Eladio Mai Dx/Rx/DC Orders Clinical Impression: Cellulitis of left leg, Sepsis, Acute kidney insufficiency, Moderate nausea and vomiting Prescriptions: No Action potassium chloride 10 mEq capsule, extended release 10 meq PO DAILY PRN (Reason: HYPOKALEMIA) RF: 0 irbesartan 75 MG tablet 75 mg PO DAILY RF: 0 torsemide 20 mg tablet 20 mg DAILY RF: 0 Primary Care Provider: Lesly Chairez NP Referrals: Lesly Chairez TRACTOR DISTRIBUTOR, TRACTOR DISTRIBUTOR-C [Primary Care Provider] - Disposition Disposition: Acute Care [facility]
--- NOTE | 2020-12-21 23:53 | EX.ED.DYSGE1 ---
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 Cellulitis of left leg Chronic venous hypertension (idiopathic) with inflammation of bilateral lower extremity Chronic venous hypertension (idiopathic) with ulcer of left lower extremity Chronic venous stasis dermatitis Decubitus ulcer of left buttock, stage 2 Diabetes Edema of both legs Essential hypertension Failure to thrive Generalized weakness GERD (gastroesophageal reflux disease) Heel spur Hiatal hernia history of cellulitis of leg Hx of venous thrombosis and embolism Hyperpigmentation of skin Hypertension Leg swelling Lipodermatosclerosis Localized edema Nausea 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 Obesity Osteoarthritis Palpitations Positional vertigo Post-phlebitic dermatosis of both lower extremities Pressure ulcer of right buttock, stage 3 Pure hypercholesterolemia Sludge in gallbladder Ulcer Venous stasis ulcer Home Medications irbesartan 75 mg PO DAILY 01/15/17 [History Last Taken 10/10/20] potassium chloride 10 mEq capsule,extended release 10 meq PO DAILY PRN 10/11/19 [History Last Taken Unknown] torsemide 20 mg DAILY 12/21/20 [History Last Taken Unknown] Allergy/AdvReac Type Severity Reaction Status Date / Time ezetimibe [From Zetia] Allergy Itching Verified 12/21/20 20:56 lisinopril Allergy cough Verified 12/21/20 20:56 neomycin [Neomycin] Allergy gets in Verified 12/21/20 20:56 blood stream and pass out neomycin sulfate Allergy Itching Verified 12/21/20 20:56 [From Neosporin ([id number])] polymyxin B [Polymyxin B] Allergy Unknown Verified 12/21/20 20:56 Sulfa (Sulfonamide Allergy Unknown Verified 12/21/20 20:56 Antibiotics) tetracycline [Tetracycline] Allergy Itching Verified 12/21/20 20:56 adhesive tape AdvReac Severe pulls Verified 12/21/20 20:56 skin atorvastatin calcium AdvReac Pain in Verified 12/21/20 20:56 [From Lipitor] joints, muscle damage Family History Mother CAD (coronary artery disease) Myocardial infarction Son Hypertension Brother Aortic aneurysm Father Diabetes Heart disease Surgical History H/O dilation and curettage history excision heel spur right foot History of cataract surgery History of cholecystectomy History of hernia repair History of left heart catheterization History of tubal ligation Lipoma Rectal fistula Social History household members: none Smoking Status: Never smoker alcohol intake: never substance use type: does not use caffeine: Yes Type: coffee Number of servings: 1 what type of physical activity do you participate in: none seatbelt use: always do you feel safe at home: Yes EXAM Physical Exam Const Vital Signs: 12/21/20 20:14 12/21/20 20:16 12/21/20 21:32 Temperature 98.4 F 98.4 F 98.4 F Temperature Source Oral Oral Oral Pulse Rate 99 99 92 Respiratory Rate 16 16 18 Blood Pressure 144/54 H 144/54 H 162/71 H Blood Pressure Mean 84 84 101 Pulse Ox 100 100 99 Oxygen Delivery Method Room Air Room Air Room Air 12/21/20 22:08 12/21/20 22:15 12/21/20 22:16 Temperature 98.7 F Temperature Source Temporal Pulse Rate 92 90 Respiratory Rate 16 20 H Blood Pressure 154/75 H 154/75 H Blood Pressure Mean 101 101 Pulse Ox 97 97 97 Oxygen Delivery Method Room Air Room Air Room Air 12/21/20 22:51 12/21/20 23:08 12/21/20 23:10 Temperature 98.9 F 99.4 F H 99.4 F H Temperature Source Oral Oral Oral Pulse Rate 90 92 Respiratory Rate 19 H 18 Blood Pressure 135/48 H 135/48 H Blood Pressure Mean 77 77 Pulse Ox 96 97 Oxygen Delivery Method Room Air Room Air MDM MDM Lab Data Labs: Laboratory Results - last 24 hr 12/21/20 12/21/20 12/21/20 22:26 22:26 22:26 WBC 13.4 H RBC 4.05 L Hgb 12.6 Hct 38.3 MCV 94.6 MCH 31.1 MCHC 32.9 RDW Std Deviation 44.4 H RDW Coeff of Mihir 12.7 Plt Count 156 MPV 11.4 Immature Gran % (Auto) 0.200 Neut % (Auto) 94.3 H Lymph % (Auto) 1.7 L Sargent % (Auto) 3.4 Eos % (Auto) 0.1 Baso % (Auto) 0.3 Absolute Neuts (auto) 12.7 H Absolute Lymphs (auto) 0.23 L Nucleated RBC % 0 Differential Comment SCANNED PT 13.2 INR 1.1 APTT 25.7 Sodium 137 Potassium 4.1 Chloride 103 Carbon Dioxide 27.0 Anion Gap 7 BUN 19 H Creatinine 1.08 H Estim Creat Clear Calc 49.44 Est GFR (MDRD) Af Amer 63 Est GFR (MDRD) Non-Af 52 L BUN/Creatinine Ratio 17.6 Glucose 119 H Lactic Acid Calcium 9.2 Total Bilirubin 0.90 AST 23 ALT 18 Alkaline Phosphatase 64 Total Protein 7.3 Albumin 3.4 Globulin 3.9 Albumin/Globulin Ratio 0.9 12/21/20 22:26 WBC RBC Hgb Hct MCV MCH MCHC RDW Std Deviation RDW Coeff of Mihir Plt Count MPV Immature Gran % (Auto) Neut % (Auto) Lymph % (Auto) Sargent % (Auto) Eos % (Auto) Baso % (Auto) Absolute Neuts (auto) Absolute Lymphs (auto) Nucleated RBC % Differential Comment PT INR APTT Sodium Potassium Chloride Carbon Dioxide Anion Gap BUN Creatinine Estim Creat Clear Calc Est GFR (MDRD) Af Amer Est GFR (MDRD) Non-Af BUN/Creatinine Ratio Glucose Lactic Acid 1.6 Calcium Total Bilirubin AST ALT Alkaline Phosphatase Total Protein Albumin Globulin Albumin/Globulin Ratio EKG Initial EKG: Attestation: I personally reviewed and interpreted this EKG as follows: Interpretation: Sinus Rhythm (Ventricular rate 89, GA interval 260 ms which is prolonged. QRS duration 96 ms. QT interval 3 and 58 ms. [place] to the left. 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
[2020-12-22] VITALS (12 sets, daily range): BP systolic 107–131; BP diastolic 44–63; PULSE 61–93; RESP 16–18; TEMP 36.2–37.2; O2SAT 94–98; BMI 36.2
--- NOTE | 2020-12-22 | HP.PCM.HOS_ITS ---
HPI - General General Date of Admission: 12/21/20 HPI Narrative BRISSA ARRIAGA, is a 80 F with a significant history of chronic venous stasis dermatitis who presents to the emergency department with increased redness and swelling of her left that started 3 days before presentation. Reportedly she hit her left leg a day before her symptoms started. The next day she noticed a draining from her left leg and other symptoms as above. On the day of presentation her PCP started her on Keflex. Later on the same day of presentation she developed nausea and vomiting. Further she also had a fever of 100.9 Fahrenheit at home; and chills. She called her PCP and she was advised to come to the emergency department. At the Emergency Department patient was given Zosyn. She was then started on vancomycin. Few minutes after vancomycin was started patient complained of substernal and epigastric pain as well as difficulty breathing. Further, she had a flushed face. 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 Cellulitis of left leg Chronic venous hypertension (idiopathic) with inflammation of bilateral lower extremity Chronic venous hypertension (idiopathic) with ulcer of left lower extremity Chronic venous stasis dermatitis Decubitus ulcer of left buttock, stage 2 Diabetes Diabetes DVT (deep venous thrombosis) Edema of both legs Essential hypertension Failure to thrive Generalized weakness GERD (gastroesophageal reflux disease) GI bleed Heel spur Hiatal hernia history of cellulitis of leg Hx of venous thrombosis and embolism Hyperpigmentation of skin Hypertension Kidney disease Leg swelling Lipodermatosclerosis Localized edema Nausea 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 Non-smoker Obesity Osteoarthritis Osteoporosis Palpitations Positional vertigo Post-phlebitic dermatosis of both lower extremities Pressure ulcer of right buttock, stage 3 Pure hypercholesterolemia Sludge in gallbladder Ulcer Venous stasis ulcer Home Medications irbesartan 75 mg PO DAILY 01/15/17 [History Last Taken 10/10/20] potassium chloride 10 mEq capsule,extended release 10 meq PO DAILY PRN 10/11/19 [History Last Taken Unknown] torsemide 20 mg DAILY 12/21/20 [History Last Taken Unknown] Allergy/AdvReac Type Severity Reaction Status Date / Time ezetimibe [From tia] Allergy Itching Verified 12/21/20 20:56 lisinopril Allergy cough Verified 12/21/20 20:56 neomycin [Neomycin] Allergy gets in Verified 12/21/20 20:56 blood stream and pass out neomycin sulfate Allergy Itching Verified 12/21/20 20:56 [From Neosporin ([id number])] polymyxin B [Polymyxin B] Allergy Unknown Verified 12/21/20 20:56 Sulfa (Sulfonamide Allergy Unknown Verified 12/21/20 20:56 Antibiotics) tetracycline [Tetracycline] Allergy Itching Verified 12/21/20 20:56 adhesive tape AdvReac Severe pulls Verified 12/21/20 20:56 skin atorvastatin calcium AdvReac Pain in Verified 12/21/20 20:56 [From Lipitor] joints, muscle damage Family History Mother CAD (coronary artery disease) Myocardial infarction Son Hypertension Brother Aortic aneurysm Father Diabetes Heart disease Surgical History H/O dilation and curettage history excision heel spur right foot History of cataract surgery History of cholecystectomy History of hernia repair History of left heart catheterization History of tubal ligation Lipoma Rectal fistula Social History household members: none housing: house current occupational status: employed Smoking Status: Never smoker alcohol intake: never substance use type: does not use caffeine: Yes Type: coffee Number of servings: 1 what type of physical activity do you participate in: none seatbelt use: always do you feel safe at home: Yes ROS ROS Narrative 12 point review of system is negative except as stated in HPI. Vital Signs Vital Signs Vital Signs: 12/21/20 20:14 12/21/20 20:16 12/21/20 21:32 Temperature 98.4 F 98.4 F 98.4 F Temperature Source Oral Oral Oral Pulse Rate 99 99 92 Respiratory Rate 16 16 18 Blood Pressure 144/54 H 144/54 H 162/71 H Blood Pressure Mean 84 84 101 Pulse Ox 100 100 99 Oxygen Delivery Method Room Air Room Air Room Air 12/21/20 22:08 12/21/20 22:15 12/21/20 22:16 Temperature 98.7 F Temperature Source Temporal Pulse Rate 92 90 Respiratory Rate 16 20 H Blood Pressure 154/75 H 154/75 H Blood Pressure Mean 101 101 Pulse Ox 97 97 97 Oxygen Delivery Method Room Air Room Air Room Air 12/21/20 22:51 12/21/20 23:08 12/21/20 23:10 Temperature 98.9 F 99.4 F H 99.4 F H Temperature Source Oral Oral Oral Pulse Rate 90 92 Respiratory Rate 19 H 18 Blood Pressure 135/48 H 135/48 H Blood Pressure Mean 77 77 Pulse Ox 96 97 Oxygen Delivery Method Room Air Room Air 12/21/20 23:58 Temperature 98.8 F Temperature Source Axillary Pulse Rate 86 Respiratory Rate 20 H Blood Pressure 112/55 L Blood Pressure Mean 74 Pulse Ox 98 Oxygen Delivery Method Room Air Weight Weight: 76.657 kg Body Mass Index (BMI) 35.3 Physical Exam Narrative Physical exam: General: Well-nourished, well-developed, no acute distress Head: Normocephalic, atraumatic, no tenderness Eyes: PERRLA, EOMI ENT, no trauma, moist mucous membranes, no rhinorrhea Neck: Nontender, full range of motion, no spinal tenderness, deformities, step- off CVS: Regular rate and rhythm Respiratory no acute distress, clear to auscultation bilaterally, chest wall nontender, no wheezing Abdomen: Soft, nontender, nondistended, normal bowel sounds, no masses : Deferred Extremities: Nontender full range of motion, no trauma Skin: Erythema of bilateral legs left worse than right. Swelling of bilateral legs. Tenderness of left leg. Neuro: Alert, oriented, cranial nerves II through XII grossly intact. Results Lab / Micro Data Result Diagrams: 12/21/20 22:26 12/21/20 22:26 Labs: Laboratory Results - last 24 hr 12/21/20 22:26: WBC 13.4 H, RBC 4.05 L, Hgb 12.6, Hct 38.3, MCV 94.6, MCH 31.1, MCHC 32.9, RDW Std Deviation 44.4 H, RDW Coeff of Mihir 12.7, Plt Count 156, MPV 11.4, Immature Gran % (Auto) 0.200, Neut % (Auto) 94.3 H, Lymph % (Auto) 1.7 L, Lares % (Auto) 3.4, Eos % (Auto) 0.1, Baso % (Auto) 0.3, Absolute Neuts (auto) 12.7 H, Absolute Lymphs (auto) 0.23 L, Nucleated RBC % 0, Differential Comment SCANNED 12/21/20 22:26: PT 13.2, INR 1.1, APTT 25.7 12/21/20 22:26: Sodium 137, Potassium 4.1, Chloride 103, Carbon Dioxide 27.0, Anion Gap 7, BUN 19 H, Creatinine 1.08 H, Estim Creat Clear Calc 49.44, Est GFR (MDRD) Af Amer 63, Est GFR (MDRD) Non-Af 52 L, BUN/Creatinine Ratio 17.6, Glucose 119 H, Calcium 9.2, Total Bilirubin 0.90, AST 23, ALT 18, Alkaline Phosphatase 64, Total Protein 7.3, Albumin 3.4, Globulin 3.9, Albumin/Globulin Ratio 0.9 12/21/20 22:26: Lactic Acid 1.6 Assessment & Plan Assessment/Plan (1) Sepsis: QUALIFIERS: Sepsis acute organ dysfunction status: without acute organ dysfunction Sepsis type: sepsis due to unspecified organism Qualified Code(s): A41.9 - Sepsis, unspecified organism (2) Cellulitis of left leg: (3) Elevated serum creatinine: (4) Chest pain: QUALIFIERS: Chest pain type: unspecified Qualified Code(s): R07.9 - Chest pain, unspecified PLAN: Sepsis SIRS criteria: Review of medical department labs showed White count of 13.4; heart rate of more than 90. Source of infection likely cellulitis of left leg. Received Zosyn in the emergency department. Started on vancomycin and discontinued because of a possible adverse reaction. Ancef 2 g every 8 hours ordered. As needed Tylenol ordered. Elevated serum creatinine Review of ED labs show serum creatinine of 1.08. There is a slight bump but within baseline. Trend BMP. Chest pain Aspirin 325 mg x 1. Trend troponin. EKG independently interpreted did not show any ST or T wave abnormalities. Repeat EKG ordered. Stasis dermatitis Torsemide continued DVT prophylaxis: Subcutaneous Lovenox ordered Charges/Coding Visit Charges Inpatient E&M: 16994 Init Hosp L3
--- NOTE | 2020-12-22 00:14 | ED.RN ---
Patient up for admit and call light pressed while dr Ruiz in with patient. Walked in and Dr Ruiz at bedside. Patient reports started with chest pain and heaviness x 5 minutes ago. ECG called and vanc stopped per dr Ruiz, waiting on zofran until ecg rechecked and reviewed
--- NOTE | 2020-12-22 00:16 | EKG12_ITS ---
Test Reason : CELLULITIS Blood Pressure : / mmHG Vent. Rate : 089 BPM Atrial Rate : 089 BPM P-R Int : 260 ms QRS Dur : 096 ms QT Int : 358 ms P-R-T Axes : 064 -58 064 degrees QTc Int : 435 ms Sinus rhythm with 1st degree A-V block Left anterior fascicular block Poor R wave progression Abnormal ECG Confirmed by NATALIA BAUTISTA, MARY ([id number]), editor house organ BARBARA JACOBO ([id number]) on 12/23/2020 12:40:57 PM Referred By: PATRICE Confirmed By:MARY FISHER MD
[2020-12-22] MEDS: Aspirin 325 MG Tablet PO (00:27)
[2020-12-22 02:45] LABS: Troponin-I HS 8.5 pg/mL (3.0-53.7)
--- NOTE | 2020-12-22 03:26 | EKG12_ITS ---
Test Reason : ADMISSION Blood Pressure : / mmHG Vent. Rate : 058 BPM Atrial Rate : 058 BPM P-R Int : 242 ms QRS Dur : 090 ms QT Int : 428 ms P-R-T Axes : 070 -55 016 degrees QTc Int : 420 ms Sinus bradycardia with 1st degree A-V block Left anterior fascicular block Nonspecific ST abnormality Abnormal ECG Confirmed by NATALIA BAUTISTA, MARY ([id number]), graphic editor BARBARA JACOBO ([id number]) on 12/23/2020 12:43:27 PM Referred By: WINSOME Confirmed By:MARY FISHER MD
[2020-12-22] MEDS: Ondansetron 4 MG/2 ML Vial IV (03:32)
[2020-12-22] MEDS: Dicyclomine 10 MG Capsule PO (03:32)
[2020-12-22] MEDS: 0.9% Saline Lock 10 ML Syringe IV (03:33)
[2020-12-22 03:44] LABS: Troponin-I HS 8.5 pg/mL (3.0-53.7)
[2020-12-22] MEDS: Cefazolin 2 GM in 0.9% Normal Saline 100 ML IV ×3 (06:21→21:26)
[2020-12-22 07:02] LABS: Absolute Lymphocyte Count 0.36 X10^3/uL (0.83-4.51); Absolute Neutrophil Count 7.1 X10^3/uL (2.0-7.7); Basophil# 0.02 X10^3/uL; Basophil% 0.3 % (0-1); Eosinophil# 0.02 X10^3/uL; Eosinophils% 0.3 % (0-5); Hematocrit 35.9 % (37-47); Hemoglobin 11.7 g/dL (12.0-15.0); Lymphocyte # 0.36 X10^3/ul (0.83-4.51); Lymphocyte % 4.6 % (19-41); Mean Corp Hgb Conc 32.6 g/dL (32-36); Mean Corpuscular Hgb 31.3 pg (27.0-32.0); Mean Platelet Vol. 11.5 fl (6.2-12.0); Monocyte# 0.27 X10^3/uL; Monocyte% 3.5 % (0-10); NRBC Flagged by Analyzer 0 % (0-5); Neutrophil # 7.13 X10^3/uL (2.7-7.7); Neutrophil % 91.2 % (47-70); POSITIVE COUNT YES; POSITIVE DIFFERENTIAL YES; Platelet Count 135 K/mm3 (150-450); RBC Distribution Width SD 45.9 fl (35.1-43.9); Red Blood Count 3.74 M/mm3 (4.2-5.4); White Blood Count 7.8 K/mm3 (4.4-11.0)
[2020-12-22 07:08] LABS: Differential Indicated SCAN CRITERIA MET
[2020-12-22 07:25] LABS: Differential Comment SCANNED
[2020-12-22 07:35] LABS: Anion Gap 4 (5-15); BUN 22 mg/dL (7-18); BUN/Creat Ratio 18.5 RATIO (10-20); Calcium,Total 8.4 mg/dL (8.5-10.1); Chloride 104 mmol/L (98-107); Creatinine, Serum 1.19 mg/dL (0.55-1.02); EST Glomerular Filtration Rate 46 mL/min (>60); Est Glom Filt Rate - Afr Amer 56 mL/min (>60); Estimated Creatinine Clearance 46.06 ml/min; Glucose 111 mg/dL (74-106); Potassium 4.6 mmol/L (3.5-5.1); Sodium Level 137 mmol/L (136-145)
[2020-12-22 07:39] LABS: Lipase 2085 U/L (73-393); Troponin-I HS 7.5 pg/mL (3.0-53.7)
[2020-12-22] MEDS: Losartan Potassium 25 MG Tablet PO (08:43)
[2020-12-22] MEDS: Enoxaparin 40 MG/0.4 ML Syringe SC (08:43)
[2020-12-22] MEDS: Famotidine 20 MG Tablet PO ×2 (08:43→20:16)
--- NOTE | 2020-12-22 09:54 | CASEMGMT ---
NOAH MURPHY NOTE: Pt screened with [facility] Palliative Care Screening Tool for strata 3, pt did not meet criteria. Priscilla BOONEN RN CM
--- NOTE | 2020-12-22 10:50 | CASEMGMT ---
Addendum entered by Jerardo Villagomez 12/22/20 11:27: Script for OP PT/OT obtained from Dr Hamilton and given to pt at this time. Pt made aware, if she chooses to go to OP therapy, she can take to a location of her choices. She voices understanding and appreciation. Original Note: NOAH MURPHY ASSESSMENT: RN CM to room to meet with patient for initial transition planning/care coordination assessment. NOAH MURPHY introduced self and role at [facility]. Pt voices understanding and consents to assessment at this time. Pt resting in bed in no distress at this time. Pt is A/O at this time and answers all questions appropriately. Care providers, pharmacy, and demographics verified/updated at this time. PCP: Mihaela SHIFT PRODUCTION ASSOCIATE Specialists: Michelle, research environmental scientist; MATT Oates; Snow, dj instructor. Preferred Pharmacy: [facility] [place] Insurance: [facility], [employer] Prescription Benefit: yes Living Will/HPOA: yes, daughter Terrie Bowers HPOA LNOK: Terrie/dtr (REBEKAH), SonJa. Dtr, Randa. Living Arrangements: Patient lives alone in a 2 story home with bed and bath on first floor. Independent w/ADL's and most IADL's. Family are supportive and check in on her. They get her groceries for her and help w/housecleaning. Pt able to prepare her meals and she manages her own medications and appts. Transportation: Pt drives at times/short distances. Family assist as needed. DME: Patient states she has shower chair, raised toilet, cane, walker, grab bars, and functioning glucometer. HHC/SNF: Patient denies previous HHC or SNF. Denies needs and no needs identified. Pt states she may be interested in OP therapy, but she is not sure yet. States would be interested in taking a script for therapy and then if she decides later she wants to go, she will have it. Pt wishes to return home and states has no concerns with going home at time of discharge. CM to follow for any further discharge planning/needs. Pt voices no further concerns/needs at this time. Advised pt to ask for CM if any further questions/concerns/needs arise. Voices understanding. PLAN: Home w/family support and possible OP therapy. Priscilla BOONEN RN CM
--- NOTE | 2020-12-22 15:25 | NURSING ---
wound photo: left lower leg
--- NOTE | 2020-12-22 15:25 | NURSING ---
wound photo: left lower leg
--- NOTE | 2020-12-22 16:25 | CHAPLAIN ---
Type of Pastoral Visit _x__ Initial Visit ___ Follow-up Visit ___ On-call Visit ___ General Patient Visit ___ Spiritual Assessment ___ Family Conference ___ Bereavement ___ Rapid Response ___ Code Blue ___ Other (describe below) Pastoral Care Referral From _x__ Patient ___ Family ___ Nurse ___ Physician ___ Estate Tax Examiner ___ Ordering Box Operator ___ Other (describe below) Sacrament/Intervention _x__ Active listening ___ Anointing ___ Christian ___ Bereavement ___ Communion _x__ Crystal exploration ___ _x__ Life review _x__ Prayer ___ Reconciliation ___ Sacrament of Sick ___ Supportive presence ___ Wedding ___ Other (describe below) Pastoral Comments
[2020-12-22] MEDS: Acetaminophen 325 MG Tablet 650 MG PO (20:15)
[2020-12-22] MEDS: MELATONIN 3 MG TABLET PO (20:16)
[2020-12-23] VITALS (8 sets, daily range): BP systolic 99–116; BP diastolic 32–52; PULSE 49–69; RESP 16–18; TEMP 36.3–37.1; O2SAT 95–98
--- NOTE | 2020-12-23 04:53 | NURSING ---
Report received from Fiorella ZAMORA, this RN is assuming care of pt. at this time.
[2020-12-23] MEDS: Cefazolin 2 GM in 0.9% Normal Saline 100 ML IV ×2 (06:19→13:19)
[2020-12-23] MEDS: Losartan Potassium 25 MG Tablet PO (08:46)
[2020-12-23] MEDS: Famotidine 20 MG Tablet PO (08:46)
[2020-12-23] MEDS: Enoxaparin 40 MG/0.4 ML Syringe SC (08:46)
[2020-12-23] MEDS: Acetaminophen 325 MG Tablet 650 MG PO (10:10)
--- NOTE | 2020-12-23 13:01 | PCM.DC ---
Discharge Instructions Diet Discharge Diet: 1800 Calorie Control Diet Activity Discharge Activity: Return to Normal Activity Weight Bearing Status: Full weight bearing Follow Up Care Test Results: Test results from this visit will be discussed in further detail at your follow-up appointment, if applicable. Discharge Plan Admission Admit Date/Time: 12/21/20 23:59 Primary Reason for Your Visit: cellulitis, pancreatitis Attending Provider: Ludwig Hamilton Primary Care Provider: Lesly Chairez NP Instructions Patient Instructions: ED Chest Pain, Noncardiac Additional Instructions / Restrictions: Follow up with the wound care center within 3 weeks Discharge Orders/Prescriptions Prescriptions: New cefdinir 300 mg capsule 300 mg PO BID Qty: 15 RF: 0 Continued potassium chloride 10 mEq capsule, extended release 10 meq PO PRN PRN (Reason: HYPOKALEMIA) RF: 0 irbesartan 75 MG tablet 75 mg PO DAILY RF: 0 torsemide 20 mg tablet 10 mg DAILY RF: 0 famotidine 20 mg tablet 20 mg PO BID RF: 0 Discontinued cephalexin 500 mg capsule 500 mg PO BID RF: 0 No Action Acetaminophen Pain Relief 500 mg 1,000 mg PRN PRN (Reason: Pain) RF: 0 Referrals / Follow Up: Lesly Chairez NP, DOUBLE SPINDLE SHAPER OPERATOR-C [Primary Care Provider] - Within 1 Week Disposition Disposition (needs filled in before D/C Order can be placed): Home, Self Care
--- NOTE | 2020-12-23 14:06 | PHA.DC.MC ---
Pharmacy Service has performed discharge medication reconciliation and counseling for this patient. 1. CEFDINIR 300MG PO Q12 X 7 DAYS The patient's discharge medication list was reviewed for discrepancies and discrepancies were resolved. Spoke to Dr. Hamilton. It looked like the cefdinir did not go to a pharmacy, but he called it in to [facility]. Home Medications irbesartan 75 mg PO DAILY 01/15/17 potassium chloride 10 mEq capsule,extended release 10 meq PO PRN PRN 10/11/19 torsemide 10 mg DAILY 12/21/20 Acetaminophen Pain Relief 1,000 mg PRN PRN 12/22/20 famotidine 20 mg PO BID 12/22/20 cefdinir 300 mg PO BID #15 cap 12/23/20 The patient was counseled on the following discharge medications and changes in medications for homegoing were reviewed. The Reason for Use, instructions for use, and potential side effects were reviewed for all new medications. The patient's questions regarding all of their medications were answered. The patient was able to verbally demonstrate an understanding of their discharge medications.
--- NOTE | 2020-12-24 16:26 | CASEMGMT ---
NOAH CM Discharge Follow-Up Phone Call. Lace: 11 Strata: 3 Discharge Date: 12/23/20 Adm Dx: Sepsis Attempted discharge f/u phone call. No answer. Non-identifying VM received. Non-descript VM left requesting return call if there are any questions or concerns. Phone number provided. Priscilla JORDAN RN CM
--- NOTE | 2020-12-28 08:59 | DS.PCM_ITS ---
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 Reason For Visit: SEPSIS Diagnosis Discharge Diagnosis (1) Sepsis: Status: Acute Code(s): A41.9 - Sepsis, unspecified organism Qualifiers: Sepsis type: sepsis due to unspecified organism Sepsis acute organ dysfunction status: without acute organ dysfunction Qualified Code(s): A41.9 - Sepsis, unspecified organism (2) Cellulitis of left leg: Status: Acute Code(s): L03.116 - Cellulitis of left lower limb (3) Elevated serum creatinine: Status: Acute Code(s): R79.89 - Other specified abnormal findings of blood chemistry (4) Chest pain: Status: Acute Code(s): R07.9 - Chest pain, unspecified Qualifiers: Chest pain type: unspecified Qualified Code(s): R07.9 - Chest pain, unspecified Plan: 1. Sepsis secondary to cellulitis of the left leg-organism unknown #2 cellulitis of the left leg-organism unknown #3 chronic stasis dermatitis of the lower legs #4 brief noncardiac chest pain #5 elevated creatinine-not secondary to chronic kidney disease, etiology unclear Medications at Discharge Home Medications irbesartan 75 mg PO DAILY 01/15/17 potassium chloride 10 mEq capsule,extended release 10 meq PO PRN PRN 10/11/19 torsemide 10 mg DAILY 12/21/20 Acetaminophen Pain Relief 1,000 mg PRN PRN 12/22/20 famotidine 20 mg PO BID 12/22/20 cefdinir 300 mg PO BID #15 cap 12/23/20 Hospital Course Operations None Procedures None Summary of Care Provided Minutes Spent on Discharge: 32 Hospital Course: This 80-year-old white female was seen in the emergency room at [facility] with a chief complaint of redness and tenderness of her left lower leg. Patient has a history of stasis dermatitis of her lower legs, patient stated to this examiner that she was unable to take diuretics due to leg cramping and she was unable to wrap her legs with Cuauhtemoc wraps or com pression bandages due to extreme tenderness of the legs. On examination the ER her left lower leg was noted to be reddened and tender, white blood cell count was elevated and patient met sepsis criteria. Patient was given vancomycin and had an episode of chest discomfort-it was unknown whether this was secondary to vancomycin or other noncardiac reasons. Patient was admitted to PCU, she was maintained on IV antibiotics, and she was seen by the wound nurse. Patient's blood cultures showed no growth, her redness and tenderness of her left lower leg improved during her hospital stay. On 12/23/2020, patient was seen and examined: On examination she appeared in good health and spirits, she does not appear to be in any distress. Vital signs as documented. Skin warm and dry and without overt rashes. Neck without JVD, thyroid appears normal, trachea is midline, neck is supple. Lungs clear, normal air movement was noted. Heart exam notable for regular rhythm, normal sounds and absence of murmurs, rubs or gallops. Abdomen unremarkable and without evidence of organomegaly, masses, or abdominal aortic enlargement, bowel sounds are present in all 4 quadrants, no abdominal tenderness was noted. Extremities generalized edema was noted over both lower legs along with stasis dermatitis changes, left lower leg was slightly more reddened than the right lower leg., no cyanosis was noted, no clubbing was noted. Neuro: Cranial nerves II through XII are grossly intact, no focal motor deficits were noted, sensation to light touch and pinprick is intact, motor exam 5/5 throughout. Psych: Patient is alert and oriented x3, she does not appear anxious or depressed, she does not appear agitated. On 12/23/2020, patient was seen and examined and felt to be in stable condition for discharge home Weight / BMI Weight Weight: 78.7 kg Body Mass Index (BMI) 36.2 ABG / Lab / Microbiology Data Result Diagrams: 12/22/20 06:45 12/22/20 06:45 Microbiology: Microbiology 12/21/20 22:46 Blood Culture (Wb) - Anticubital Left Blood Culture - Final No growth in 5 days. 12/21/20 22:26 Blood Culture (Wb) - Anticubital Left Blood Culture - Final No growth in 5 days. D/C Instructions Discharge Diet: 1800 Calorie Control Diet Weight Bearing Status: Full weight bearing Meaningful Use Info Meaningful Use Diagnoses (Choose all that apply): None applicable Discharge Plan Admission Admit Date/Time: 12/21/20 23:59 Primary Reason for Your Visit: cellulitis, pancreatitis Attending Provider: Ludwig Hamilton Primary Care Provider: Lesly Chairez NP Instructions Patient Instructions: ED Chest Pain, Noncardiac Additional Instructions / Restrictions: Follow up with the wound care center within 3 weeks Discharge Orders/Prescriptions Prescriptions: New cefdinir 300 mg capsule 300 mg PO BID Qty: 15 RF: 0 Continued potassium chloride 10 mEq capsule, extended release 10 meq PO PRN PRN (Reason: HYPOKALEMIA) RF: 0 irbesartan 75 MG tablet 75 mg PO DAILY RF: 0 torsemide 20 mg tablet 10 mg DAILY RF: 0 famotidine 20 mg tablet 20 mg PO BID RF: 0 Discontinued cephalexin 500 mg capsule 500 mg PO BID RF: 0 No Action Acetaminophen Pain Relief 500 mg 1,000 mg PRN PRN (Reason: Pain) RF: 0 Referrals / Follow Up: Lesly Chairez NP, [employer] [Primary Care Provider] - Within 1 Week Disposition Disposition (needs filled in before D/C Order can be placed): Home, Self Care Charges/Coding Visit Charges Inpatient E&M: [id number] Disch Hosp
== END 2020-12-23 16:17 | disposition home or self-care (01) | DRG 872 ==
LOC: ED 23:49 → PCU 12-22 00:29
PROVIDERS: Hospitalist; Admitting Provider Internal Medicine; Emergency Provider Emergency Medicine; PCP Nurse Practitioner; Visit Provider Internal Medicine
DX: A41.9 Sepsis, unspecified organism (principal); L03.116 Cellulitis of left lower limb; I87.313 Chronic venous hypertension (idiopathic) with ulcer of bilateral lower extremity; I87.312 Chronic venous hypertension (idiopathic) with ulcer of left lower extremity; E11.9 Type 2 diabetes mellitus without complications; R79.89 Other specified abnormal findings of blood chemistry; R07.89 Other chest pain; I87.2 Venous insufficiency (chronic) (peripheral); K21.9 Gastro-esophageal reflux disease without esophagitis; E78.00 Pure hypercholesterolemia, unspecified; I25.10 Atherosclerotic heart disease of native coronary artery without angina pectoris; I10 Essential (primary) hypertension; I25.2 Old myocardial infarction; N28.9 Disorder of kidney and ureter, unspecified; Z82.49 Family history of ischemic heart disease and other diseases of the circulatory system; Z83.3 Family history of diabetes mellitus; Z86.718 Personal history of other venous thrombosis and embolism; Z88.1 Allergy status to other antibiotic agents; Z88.2 Allergy status to sulfonamides; Z88.8 Allergy status to other drugs, medicaments and biological substances; Z90.49 Acquired absence of other specified parts of digestive tract; Z98.51 Tubal ligation status
CPT/HCPCS: 36415; 80048; 80053; 83605; 83690; 84484; 85025; 85610; 85730; 87040; 93005; 97162; 97166; 97530; 97535; 97802; 99285; J7050; A4216; J2405

== ENCOUNTER 2020-12-30 08:41 | Outpatient (RCR) | payer MEDICARE, OTHER, SELFPAY ==
[2020-12-22 00:53] VITALS: BMI 36.2
[2020-12-30 11:05] VITALS: BP 184/59; PULSE 67; TEMP 36.3; BMI 36.2
--- NOTE | 2020-12-30 11:51 | PCM.WC.HP ---
History of Present Illness Date of Service: 12/30/20 Chief Complaint: Non healing ulcers left lower extremity History of Wound: Ms. Soares is an 79-year-old who presents to the wound center due to nonhealing ulcer of left lower leg. She has been seen for similar ulcers in the past. She noticed the ulcers on 11/14/2019 and has been applying Adaptic initially and then ran out of this so she started to apply Xeroform that she had from a previous wound. She is not sure how they developed but she does have intermittent cellulitis and did have a flare of cellulitis at that time and saw her PCP who prescribed her keflex and referred her to be seen here at the wound center. She feels well otherwise at this time denies chills, fever or change in bowel habit. Her vascular studies show PAD in both legs. She complains of increased pain with elevation. 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, stage 2 Diabetes Diabetes DVT (deep venous thrombosis) Edema of both legs Essential hypertension Failure to thrive Generalized weakness GERD (gastroesophageal reflux disease) GI bleed Heel spur Hiatal hernia history of cellulitis of leg Hx of venous thrombosis and embolism Hyperpigmentation of skin Hypertension Kidney disease Leg swelling Lipodermatosclerosis Localized edema Nausea 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 Non-smoker Obesity Osteoarthritis Osteoporosis Palpitations Peripheral arterial disease Positional vertigo Post-phlebitic dermatosis of both lower extremities Pressure ulcer of right buttock, stage 3 Pure hypercholesterolemia Sludge in gallbladder Ulcer Venous stasis ulcer Home Medications irbesartan 75 mg PO DAILY 01/15/17 [History Last Taken 12/20/20 09:00] potassium chloride 10 mEq capsule,extended release 10 meq PO PRN PRN 10/11/19 [History Last Taken 12/21/20] torsemide 10 mg DAILY 12/21/20 [History Last Taken 12/21/20] Acetaminophen Pain Relief 1,000 mg PRN PRN 12/22/20 [History Last Taken 12/21/20] famotidine 20 mg PO BID 12/22/20 [History Last Taken 12/20/20] cefdinir 300 mg PO BID #15 cap 12/23/20 [Rx Last Taken Unknown] Allergy/AdvReac Type Severity Reaction Status Date / Time ezetimibe [From Zetia] Allergy Itching Verified 12/21/20 20:56 lisinopril Allergy cough Verified 12/21/20 20:56 neomycin [Neomycin] Allergy gets in Verified 12/21/20 20:56 blood stream and pass out neomycin sulfate Allergy Itching Verified 12/21/20 20:56 [From Neosporin ([id number]-[id number])] polymyxin B [Polymyxin B] Allergy Unknown Verified 12/21/20 20:56 Sulfa (Sulfonamide Allergy Unknown Verified 12/21/20 20:56 Antibiotics) tetracycline [Tetracycline] Allergy Itching Verified 12/21/20 20:56 adhesive tape AdvReac Severe pulls Verified 12/21/20 20:56 skin atorvastatin calcium AdvReac Pain in Verified 12/21/20 20:56 [From Lipitor] joints, muscle damage Family History Mother CAD (coronary artery disease) Myocardial infarction Son Hypertension Brother Aortic aneurysm Father Diabetes Heart disease Surgical History H/O dilation and curettage history excision heel spur right foot History of cataract surgery History of cholecystectomy History of hernia repair History of left heart catheterization History of tubal ligation Lipoma Rectal fistula Social History household members: none housing: house current occupational status: employed Smoking Status: Never smoker alcohol intake: never substance use type: does not use caffeine: Yes Type: coffee Number of servings: 1 what type of physical activity do you participate in: none seatbelt use: always do you feel safe at home: Yes ROS ROS Narrative 12 point review of system is negative except as stated in HPI. Vital Signs Vital Signs Vital Signs: 12/30/20 11:05 Temperature 97.4 F L Temperature Source Oral Pulse Rate 67 Blood Pressure 184/59 H Blood Pressure Mean 100 Blood Pressure Source Monitor Blood Pressure Position Supine Blood Pressure Location Left Arm Weight Body Mass Index (BMI) 36.2 Physical Exam Const oriented x3 General Appearance: cooperative Exam Limitations: no limitations HEENT normocephalic Head and Scalp: normal to inspection Face and Sinus: normal facial exam Nose: external nose normal General Ear: hearing grossly impaired External Ear: external ears normal Mouth: oral and palatal mucosa normal Eyes PERRL General Eye: normal appearance of both eyes Neck full ROM General: normal visual inspection Resp normal respiratory effort Effort and Inspection: able to speak in complete sentences Auscultation: clear to auscultation bilaterally Cardio regular rate and regular rhythm Palpation: normal PMI Rate: regular rate Rhythm: regular rhythm GI Auscultation: normoactive bowel sounds Palpation: soft and no hepatosplenomegaly external exam normal Back/Spine Cervical Spine: cervical ROM normal Thoracic Spine / Upper Back: normal to inspection Lumbar Spine / Lower Back: normal to inspection Extremity normal to inspection General Extremity: normal exam except as noted and vascular access Skin Lesions: lesion noted Rashes: rashes noted Neuro oriented x3 Psych Appearance: grossly normal Speech: normal speech Thought Content: normal thought content Judgement: judgement good Debridement Note Debridement Note Post-Debridement Measurements and Additional Note: Post-Debridement Measurements/Treatment JEAN PAUL - Nurse 1 - General Ulcer Assessment Start: 12/30/20 09:50 Freq: Status: Active Protocol: DYAN Activity Type Activity Date Activity User E-Sign Co-Sign Detail Recorded Client Recorded Date Recorded By Document 12/30/20 11:05 EVAN [id number] 12/30/20 11:07 EVAN 12/30/20 11:05 - Today's Visit Information Type of service Initial Visit Arrival Mode Ambulatory Patient Identification Verified (Name & Yes ) Height and Weight Body Mass Index (BMI) 36.2 BMI Classification Obese Vital Signs Temperature (97.8 F-99.1 F) 97.4 F L Temperature Source Oral Pulse Rate (60-100) 67 Pulse Location Monitor Blood Pressure (90/60-120/80) 184/59 H Blood Pressure Mean (mm Hg) 100 Source Monitor Position Supine Blood Pressure Location Left Arm History Since Last Visit- (Skip if this is Patient's initial visit) Have you changed medications since your No last visit? Any new allergies or adverse reactions No Had a fall/change in ADL's that may No increase risk of falls Signs or symptoms of abuse and/or No neglect since last visit Have you been in the hospital since your No last visit? Has dressing in place as prescribed No Has compression in place as prescribed N/A Has offloadiing in place as prescribed N/A Experienced any changes in pain level or No management Left Footwear Regular Shoe Right Footwear Regular Shoe Pain Scale: 0-10 Numeric Is Patient Pain Free? Yes WC - Nurse 1 - General Ulcer Measurement Start: 12/30/20 09:50 Freq: Status: Active Protocol: Activity Type Activity Date Activity User E-Sign Co-Sign Detail Recorded Client Recorded Date Recorded By Document 12/30/20 11:05 KR [id number] 12/30/20 11:07 KR 12/30/20 11:05 Wound Center Nurse 1 #8 left lateral LE cluster -Current Size (cm) - Length 5.8 -Current Size (cm) - Width 5 -Current Size (cm) - Depth 0.1 -Total Square Cm 29.0 -Exudate Amt Small -Exudate Type Serosanguineous -Wound Margin Distinct, Outline Attached -Granulation Amt Medium (34-66%) -Granulation Quality Red -Necrosis Amt None Present (0 %) -Texture (Leslye-wound Skin Appearance) Assessed, Scarring -Moisture (Leslye-wound Skin Appearance) No Abnormality, Assessed -Color (Leslye-wound Skin Appearance) No Abnormality, Assessed -Temperature (Leslye-wound Skin No Abnormality Appearance) (Pt Warm) -Tenderness on Palpation (Leslye-wound No Skin Appearance) -Ulcer Cleansing Rinsed/ Irrigated with Saline -Foul Odor after Cleansing No -Anesthetic Used 4% Lidocaine Solution - Nurse 2 - General Ulcer CM Notes Start: 12/30/20 09:50 Freq: Status: Active Protocol: Activity Type Activity Date Activity User E-Sign Co-Sign Detail Recorded Client Recorded Date Recorded By Document 12/30/20 09:52 MW [id number] 12/30/20 09:55 MW 12/30/20 09:52 Wound Center Nurse 2 -Time 09:53 -Correct Patient Yes -Correct Side, Site, Position Yes -Correct Procedure Yes -Procedure Performed No -Tunneling No -Undermining/Tunneling No -Circular Undermining No -Wound/Ulcer Outcome Not Healed -Ulcer Cleansing Rinsed/ Irrigated with Saline -Foul Odor after Cleansing No -Bioengineered Tissue No -Bleeding Controlled with NA -Offloading No -Treatment Response Procedure Tolerated Well Pain Scale: 0-10 Numeric Is Patient Pain Free? Yes WC - Nurse 3 - General Ulcer D/C NN Start: 12/30/20 09:50 Freq: Status: Active Protocol: Activity Type Activity Date Activity User E-Sign Co-Sign Detail Recorded Client Recorded Date Recorded By Document 12/30/20 10:13 ML [id number] 12/30/20 10:14 ML 12/30/20 10:13 Wound Care Nurse 3 #8 left lateral LE cluster -Ulcer Cleansing Rinsed/ Irrigated with Saline -Foul Odor after Cleansing No -Primary Dressing Applied Other -Other Dressing xeroform -Primary Dressing Covered/Secured with Dry Gauze, Secured with Tape WC - Visit Discharge Discharge Condition Stable Ambulatory Status Ambulatory Medication Reconcilliation completed & No provided to patient/care provider Clinical Summary of Care Provided Yes Wound debrided: Left lower leg No debridement was completed: No debridement was completed today Assessment/Plan Assessment/Plan (1) Peripheral arterial disease: CODE(S): I73.9 - Peripheral vascular disease, unspecified (2) 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 Cover with gauze and Joshua daily follow-up in 1 week (3) Chronic venous stasis dermatitis: CODE(S): I87.2 - Venous insufficiency (chronic) (peripheral)
== END 2021-01-02 23:59 ==
LOC: WC 08:41
PROVIDERS: PCP Nurse Practitioner; Visit Provider Nurse Practitioner
DX: E11.621 Type 2 diabetes mellitus with foot ulcer (principal); I70.348 Atherosclerosis of unspecified type of bypass graft(s) of the left leg with ulceration of other part of lower leg; I87.312 Chronic venous hypertension (idiopathic) with ulcer of left lower extremity; E78.00 Pure hypercholesterolemia, unspecified; I10 Essential (primary) hypertension; I25.10 Atherosclerotic heart disease of native coronary artery without angina pectoris; I70.249 Atherosclerosis of native arteries of left leg with ulceration of unspecified site; K44.9 Diaphragmatic hernia without obstruction or gangrene; E11.51 Type 2 diabetes mellitus with diabetic peripheral angiopathy without gangrene; M81.0 Age-related osteoporosis without current pathological fracture; Z86.718 Personal history of other venous thrombosis and embolism; Z79.899 Other long term (current) drug therapy
CPT/HCPCS: 99213; G0463

== ENCOUNTER 2021-01-13 09:00 | Outpatient (RCR) | payer MEDICARE, OTHER, SELFPAY ==
[2021-01-03 00:40] VITALS: BP 184/59; PULSE 67; TEMP 36.3
[2021-01-06 08:48] VITALS: BP 121/61; PULSE 81; TEMP 36.3; BMI 36.2
--- NOTE | 2021-01-06 10:00 | PN.PCM_ITS ---
History of Present Illness Date of Service: 01/06/21 Chief Complaint: Non healing ulcers left lower extremity History of Wound: Ms. Soares is an 79-year-old who presents to the wound center due to nonhealing ulcer of left lower leg. She has been seen for similar ulcers in the past. She noticed the ulcers on 11/14/2019 and has been applying Adaptic initially and then ran out of this so she started to apply Xeroform that she had from a previous wound. She is not sure how they developed but she does have intermittent cellulitis and did have a flare of cellulitis at that time and saw her PCP who prescribed her keflex and referred her to be seen here at the wound center. She feels well otherwise at this time denies chills, fever or change in bowel habit. Her vascular studies show PAD in both legs. She complains of increased pain with elevation. Progress of Wound: Patient had MRSA on her cultures and is now being treated and tolerating medication very well. Wound is healing there is superficial Xeroform is working very well to heal her. She can only have limited amount of compression because she has calcification of her arteries going into her feet and toes. Subjective Subjective No concerns only of the MRSA I told her if she finishes her antibiotic she should be good she still insists on seeing a infectious disease doctor about it which is fine. Objective Data Objective Data Healing superficial one small area on the front and one small area on the back of the left lower ankle area. Using Xeroform very well. Still using her compression told her not to overdo with heavy compression but she needs some support. 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 Physical Exam Const oriented x3 General Appearance: cooperative Exam Limitations: no limitations HEENT normocephalic Head and Scalp: normal to inspection Face and Sinus: normal facial exam Nose: external nose normal General Ear: hearing grossly impaired External Ear: external ears normal Mouth: oral and palatal mucosa normal Eyes PERRL General Eye: normal appearance of both eyes Neck full ROM General: normal visual inspection Resp normal respiratory effort Effort and Inspection: able to speak in complete sentences Auscultation: clear to auscultation bilaterally Cardio regular rate and regular rhythm Palpation: normal PMI Rate: regular rate Rhythm: regular rhythm GI Auscultation: normoactive bowel sounds Palpation: soft and no hepatosplenomegaly external exam normal Back/Spine Cervical Spine: cervical ROM normal Thoracic Spine / Upper Back: normal to inspection Lumbar Spine / Lower Back: normal to inspection Extremity normal to inspection General Extremity: normal exam except as noted and vascular access Skin Lesions: lesion noted Rashes: rashes noted Neuro oriented x3 Psych Appearance: grossly normal Speech: normal speech Thought Content: normal thought content Judgement: judgement good Debridement Note Debridement Note Post-Debridement Measurements and Additional Note: Post-Debridement Measurements/Treatment WC - Nurse 1 - General Ulcer Assessment Start: 01/06/21 08:47 Freq: Status: Active Protocol: DYAN Activity Type Activity Date Activity User E-Sign Co-Sign Detail Recorded Client Recorded Date Recorded By Document 01/06/21 08:48 ND [id number] 01/06/21 09:04 ANUJ 01/06/21 08:48 WC - Today's Visit Information Type of service Follow-up Visit (Physician/[employer] ) Arrival Mode Ambulatory,Cane Patient Identification Verified (Name & Yes ) Height and Weight Body Mass Index (BMI) 36.2 BMI Classification Obese Vital Signs Temperature (97.8 F-99.1 F) 97.3 F L Temperature Source Temporal Pulse Rate (60-100) 81 Pulse Location Monitor Blood Pressure (90/60-120/80) 121/61 H Blood Pressure Mean (mm Hg) 81 Source Monitor History Since Last Visit- (Skip if this is Patient's initial visit) Have you changed medications since your No last visit? Any new allergies or adverse reactions No Had a fall/change in ADL's that may No increase risk of falls Signs or symptoms of abuse and/or No neglect since last visit Have you been in the hospital since your No last visit? Has dressing in place as prescribed Yes Has compression in place as prescribed Yes Has offloadiing in place as prescribed N/A Left Footwear Regular Shoe Right Footwear Regular Shoe WC - Nurse 1 - General Ulcer Measurement Start: 01/06/21 08:47 Freq: Status: Active Protocol: Activity Type Activity Date Activity User E-Sign Co-Sign Detail Recorded Client Recorded Date Recorded By Document 01/06/21 08:48 AK [id number] 01/06/21 09:04 AK 01/06/21 08:48 Wound Center Nurse 1 #8 left lateral LE cluster -Combined with other wound No -Current Size (cm) - Length 6 -Current Size (cm) - Width 10.5 -Current Size (cm) - Depth 0.1 -Total Square Cm 63.0 -Photo Taken No -Epithelialization Small 1-33% -Tunneling No -Undermining/Tunneling No -Circular Undermining No -Exudate Type Purulent -Granulation Amt None Present (0 %) -Slough/Fibrin No -Necrosis Amt None Present (0 %) -Structure Exposed N/A -Texture (Leslye-wound Skin Appearance) No Abnormality, Assessed -Moisture (Leslye-wound Skin Appearance) No Abnormality, Assessed -Color (Leslye-wound Skin Appearance) No Abnormality, Assessed -Temperature (Leslye-wound Skin No Abnormality Appearance) (Pt Warm) -Tenderness on Palpation (Leslye-wound No Skin Appearance) -Ulcer Cleansing Rinsed/ Irrigated with Saline -Anesthetic Used 4% Lidocaine Solution Left Calf (cm) 46.5 Left Ankle (cm) 24.6 WC - Nurse 2 - General Ulcer CM Notes Start: 01/06/21 08:47 Freq: Status: Active Protocol: Activity Type Activity Date Activity User E-Sign Co-Sign Detail Recorded Client Recorded Date Recorded By Document 01/06/21 09:15 MW [id number] 01/06/21 09:17 MW 01/06/21 09:15 Wound Center Nurse 2 #9 left posterior LE -Time 09:16 -Correct Patient Yes -Correct Side, Site, Position Yes -Correct Procedure Yes -Procedure Performed Yes -Type of Procedure Debridement -Clinical Debridement Subcutaneous -Tissue Removed Subcutaneous -Post Debridement (cm) - Length 1.0 -Post Debridement (cm) - Width 0.5 -Post Debridement (cm) - Depth 0.1 -Total Square (Post) (cm) 0.50 -Area of Debridement (cm) - Length 1.0 -Area of Debridement (cm) - Width 0.5 -Total Square (Area) (cm) 0.50 -Tunneling No -Undermining/Tunneling No -Circular Undermining No -Wound/Ulcer Outcome Not Healed -Ulcer Cleansing Rinsed/ Irrigated with Saline -Foul Odor after Cleansing No -Bioengineered Tissue No -Bleeding Controlled with Pressure -Offloading No -Treatment Response Procedure Tolerated Well -Debridement - Subq, 1st 20sq cm No #8 left lateral LE cluster -Time 09:15 -Correct Patient Yes -Correct Side, Site, Position Yes -Correct Procedure Yes -Procedure Performed Yes -Type of Procedure Debridement -Clinical Debridement Subcutaneous -Tissue Removed Subcutaneous -Post Debridement (cm) - Length 0.3 -Post Debridement (cm) - Width 0.3 -Post Debridement (cm) - Depth 0.1 -Total Square (Post) (cm) 0.09 -Area of Debridement (cm) - Length 0.3 -Area of Debridement (cm) - Width 0.3 -Total Square (Area) (cm) 0.09 -Tunneling No -Undermining/Tunneling No -Circular Undermining No -Wound/Ulcer Outcome Not Healed -Ulcer Cleansing Rinsed/ Irrigated with Saline -Foul Odor after Cleansing No -Bioengineered Tissue No -Bleeding Controlled with Pressure -Offloading No -Treatment Response Procedure Tolerated Well -Debridement - Subq, 1st 20sq cm Yes Pain Scale: 0-10 Numeric Is Patient Pain Free? Yes WC - Nurse 3 - General Ulcer D/C NN Start: 01/06/21 08:47 Freq: Status: Active Protocol: Activity Type Activity Date Activity User E-Sign Co-Sign Detail Recorded Client Recorded Date Recorded By Document 01/06/21 09:20 MW [id number] 01/06/21 09:21 MW 01/06/21 09:20 Wound Care Nurse 3 #9 left posterior LE -Ulcer Cleansing Rinsed/ Irrigated with Saline -Foul Odor after Cleansing No -Negative Pressure Wound Therapy N/A -Other Dressing xeroform -Primary Dressing Covered/Secured with Dry Gauze & Roll Gauze, Secured with Tape #8 left lateral LE cluster -Ulcer Cleansing Rinsed/ Irrigated with Saline -Foul Odor after Cleansing No -Negative Pressure Wound Therapy N/A -Other Dressing xeroform -Primary Dressing Covered/Secured with Dry Gauze & Roll Gauze, Secured with Tape Right -Lotion applied to leg before No compression wrap -Size of Tubigrip Used Size F Left -Lotion applied to leg before No compression wrap -Size of Tubigrip Used Size F Treatment Response Procedure Tolerated Well Pain Scale: 0-10 Numeric Is Patient Pain Free? Yes Teaching: Wound Center Dressing Your Wound -Person Taught Patient -Teaching Method Discussion, Demonstration -Response to teaching Verbalize understanding WC - Visit Discharge Discharge Condition Stable Ambulatory Status Ambulatory,Cane Transportation Private Auto Accompanied by self Medication Reconcilliation completed & No provided to patient/care provider Clinical Summary of Care Provided Yes Wound debrided: Left lower leg ulcers Type of Debridement: Excisional debridement Anesthesia Used: 5% Lidocaine Gel Depth: in the subcutaneous layer Percentage of wound debrided: 100 Instrument Used: 3mm curette Tissue Removed: Fibrin Assessment/Plan Assessment/Plan (1) Peripheral arterial disease: CODE(S): I73.9 - Peripheral vascular disease, unspecified (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 Cover with gauze and Joshua daily follow-up in 1 week (3) Chronic venous stasis dermatitis: CODE(S): I87.2 - Venous insufficiency (chronic) (peripheral)
[2021-01-13 08:46] VITALS: BP 174/54; PULSE 77; RESP 18; TEMP 36.8; BMI 36.2
--- NOTE | 2021-01-13 10:10 | PN.PCM_ITS ---
History of Present Illness Date of Service: 01/13/21 Chief Complaint: Non healing ulcers left lower extremity History of Wound: Ms. Soares is an 79-year-old who presents to the wound center due to nonhealing ulcer of left lower leg. She has been seen for similar ulcers in the past. She noticed the ulcers on 11/14/2019 and has been applying Adaptic initially and then ran out of this so she started to apply Xeroform that she had from a previous wound. She is not sure how they developed but she does have intermittent cellulitis and did have a flare of cellulitis at that time and saw her PCP who prescribed her keflex and referred her to be seen here at the wound center. She feels well otherwise at this time denies chills, fever or change in bowel habit. Her vascular studies show PAD in both legs. She complains of increased pain with elevation. Progress of Wound: Patient has completely healed and will be discharged from the wound center today Subjective Subjective No concerns thought she was healed Objective Data Objective Data Left lower leg wounds are healed patient was instructed to continue using Xeroform whenever she gets an outbreak of superficial blistering or open areas. To continue using her Tubigrip's and her wraps as needed take stop having open areas. Patient is to follow-up as needed to the wound center if any issues occur but otherwise be discharged Vital Signs: Vital Signs Temp Pulse Resp BP 98.3 F 77 18 174/54 H 01/13/21 08:46 01/13/21 08:46 01/13/21 08:46 01/13/21 08:46 Body Mass Index (BMI) 36.2 Physical Exam Const oriented x3 General Appearance: cooperative Exam Limitations: no limitations HEENT normocephalic Head and Scalp: normal to inspection Face and Sinus: normal facial exam Nose: external nose normal General Ear: hearing grossly impaired External Ear: external ears normal Mouth: oral and palatal mucosa normal Eyes PERRL General Eye: normal appearance of both eyes Neck full ROM General: normal visual inspection Resp normal respiratory effort Effort and Inspection: able to speak in complete sentences Auscultation: clear to auscultation bilaterally Cardio regular rate and regular rhythm Palpation: normal PMI Rate: regular rate Rhythm: regular rhythm GI Auscultation: normoactive bowel sounds Palpation: soft and no hepatosplenomegaly external exam normal Back/Spine Cervical Spine: cervical ROM normal Thoracic Spine / Upper Back: normal to inspection Lumbar Spine / Lower Back: normal to inspection Extremity normal to inspection General Extremity: normal exam except as noted and vascular access Skin Lesions: lesion noted Rashes: rashes noted Neuro oriented x3 Psych Appearance: grossly normal Speech: normal speech Thought Content: normal thought content Judgement: judgement good Debridement Note Debridement Note No debridement was completed: No debridement was completed today Assessment/Plan Assessment/Plan (1) Peripheral arterial disease: CODE(S): I73.9 - Peripheral vascular disease, unspecified (2) 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: CODE(S): I70.249 - Atherosclerosis of [place] arteries of left leg with ulceration of unspecified site QUALIFIERS: Peripheral atherosclerosis artery type: bypass graft, unspecified type Lower extremity ulceration location: other part of lower leg Qualified Code(s): I70.348 - Atherosclerosis of unspecified type of bypass graft(s) of the left leg with ulceration of other part of lower leg PLAN: Discharge from the wound center follow-up as needed continue using compression and she has extra Xeroform in case she gets open areas on her own only follow-up as needed (3) Chronic venous stasis dermatitis: CODE(S): I87.2 - Venous insufficiency (chronic) (peripheral)
== END 2021-01-13 09:16 | disposition home or self-care (01) ==
LOC: WC 09:00
PROVIDERS: PCP Nurse Practitioner; Visit Provider Nurse Practitioner
DX: I70.348 Atherosclerosis of unspecified type of bypass graft(s) of the left leg with ulceration of other part of lower leg (principal); Z86.14 Personal history of Methicillin resistant Staphylococcus aureus infection; I87.312 Chronic venous hypertension (idiopathic) with ulcer of left lower extremity
CPT/HCPCS: 11042; 99213; G0463

== ENCOUNTER 2021-05-19 23:04 | Inpatient (IN) | payer MEDICARE, OTHER, SELFPAY ==
[2021-05-19 23:05] VITALS: BP 150/66; PULSE 65; RESP 16; TEMP 36.1; O2SAT 98; BMI 36.2
--- NOTE | 2021-05-19 23:28 | CT_ITS ---
STUDY: CT ABDOMEN AND PELVIS WITH CONTRAST REASON FOR EXAM: Female, 80 years old. Abd pain / ? Pancreatitis RADIATION DOSAGE (If Supplied By Facility): CTDIvol = ( 16.89 ) mGy, DLP = ( 931.51 ) mGycm TECHNIQUE: Transaxial images were obtained from the dome of the diaphragm to the symphysis pubis without oral contrast. IV 100mL Isovue-370 was administered. Sagittal and coronal images were reconstructed. Individualized dose optimization techniques were used for this CT. COMPARISON: October 11, 2020 CT abdomen and pelvis, MRCP abdomen October 26, 2020 FINDINGS: There is a small focus of right middle lobe consolidation partially seen on this study. There is trace lower lobe atelectasis. The visualized portions of the heart are within normal limits. Normal liver. There is intra and extrahepatic ductal dilatation. The common duct measures 1.6 cm at the [place] hepatis. At the level of the pancreas that measures 1.1 cm radiopaque stone is not visualized. Normal spleen. There is mild distention of the pancreatic duct. Normal bilateral adrenal glands. There is a 3.6 mm cyst right kidney no hydronephrosis. There is a cyst left kidney measuring 6.7 mm. Stable since prior study. No hydronephrosis. There is a small to moderate hiatal hernia stable since prior study measuring 5.3 x 3.5 cm. There is a mildly distended appearance of the duodenum with mild wall thickening greater than prior study. There is mild distention of the proximal small bowel. There is abundant stool within the visualized colon. The appendix is visualized and appears normal. There is diffuse atherosclerotic calcification of the abdominal aorta with elongation and tortuosity, but without a demonstrated aneurysm. Normal inferior vena cava. Normal retroperitoneum. Normal urinary bladder. Normal visualized uterus. There is bilateral dependent edema. There are calcifications within the subcutaneous soft tissues of the gluteal region. There is multilevel disc space narrowing spondylosis. There is multilevel neural foraminal narrowing secondary to multilevel disc osteophyte protrusion. There is a left lateral disc osteophyte protrusion at the level of L3-L4 with moderate to severe left neural foraminal narrowing. There is degenerative change of the SI joints. CT/Abdomen/Pelvis W IV Cont ONLY IMPRESSION: Persistent intra and extrahepatic ductal dilatation. Consider possible chronic partial obstruction at the level of the sphincter of Larry. There is mild distention of the duodenal mild wall thickening consider possible duodenitis. Constipation. Bilateral benign-appearing stable renal cysts Hiatal hernia. No appendicitis. No radiographic evidence of pancreatitis. Degenerative change of the thoracolumbar spine. Electronically Signed: Ashley Hartman MD at 1:41 EST Tel , Service support ,
[2021-05-19] MEDS: Morphine 2 MG/ML Syringe IV (23:47)
[2021-05-19] MEDS: Ondansetron 4 MG/2 ML Vial IV (23:47)
[2021-05-19 23:49] LABS: Color, Urine Yellow (Yellow); Glucose, Dipstick Normal (Normal); Ketone-Dipstick Negative (Negative); Leukocyte Esterase-Dipstick Negative /ul (Negative); Mucous, Urine 0 SEEN /hpf (<or=2+); Nitrite-Dipstick Negative (Negative); Occult Blood-Urine 25 /ul (Negative); Protein-Dipstick Negative (Negative); Specific Gravity, Urine 1.005 (1.002-1.030); Urine Bilirubin Dipstick Negative (Negative); Urine Clarity Clear (Clear); Urine Urobilinogen Normal (Normal); Urine pH 6.5 (5.0 - 8.0); White Blood Cells 0 SEEN /hpf (0-5)
[2021-05-20] VITALS (10 sets, daily range): BP systolic 125–170; BP diastolic 37–95; PULSE 55–87; RESP 16–18; TEMP 35.7–36.6; O2SAT 93–98; BMI 35.0
[2021-05-20 00:04] LABS: Absolute Lymphocyte Count 2.66 X10^3/uL (0.83-4.51); Absolute Neutrophil Count 2.3 X10^3/uL (2.0-7.7); Basophil# 0.02 X10^3/uL; Basophil% 0.4 % (0-1); Eosinophil# 0.04 X10^3/uL; Eosinophils% 0.7 % (0-5); Hemoglobin 13.2 g/dL (12.0-15.0); Lymphocyte # 2.66 X10^3/ul (0.83-4.51); Lymphocyte % 46.9 % (19-41); Mean Corp Hgb Conc 33.8 g/dL (32-36); Mean Corpuscular Hgb 32.4 pg (27.0-32.0); Mean Corpuscular Volume 95.8 fL (81-99); Mean Platelet Vol. 12.2 fl (6.2-12.0); Monocyte# 0.61 X10^3/uL; Monocyte% 10.8 % (0-10); NRBC Flagged by Analyzer 0 % (0-5); Neutrophil # 2.32 X10^3/uL (2.7-7.7); Neutrophil % 40.8 % (47-70); Platelet Count 139 K/mm3 (150-450); RBC Distribution Width CV 12.7 % (11.6-14.6); RBC Distribution Width SD 44.9 fl (35.1-43.9); Red Blood Count 4.07 M/mm3 (4.2-5.4); White Blood Count 5.7 K/mm3 (4.4-11.0)
[2021-05-20 00:12] LABS: Bacteria RARE /hpf (None Seen); Red Blood Cells-Urine 0-5 SEEN /hpf (0-5); Squamous Epithelial Cells - UA 0-5 SEEN /hpf (5-10)
[2021-05-20 00:15] LABS: AST(SGOT) 20 U/L (15-37); Alanine Aminotransfer ALT/SGPT 15 U/L (13-56); Albumin, Serum 2.9 g/dL (3.2-5.0); Alkaline Phosphatase 72 U/L (45-117); Anion Gap 3 (5-15); BUN 17 mg/dL (7-18); BUN/Creat Ratio 19.1 RATIO (10-20); Bilirubin, Direct 0.15 mg/dL (0.00-0.30); Calcium,Total 8.8 mg/dL (8.5-10.1); Chloride 107 mmol/L (98-107); Creatinine, Serum 0.89 mg/dL (0.55-1.02); EST Glomerular Filtration Rate 65 mL/min (>60); Est Glom Filt Rate - Afr Amer 78 mL/min (>60); Estimated Creatinine Clearance 61.51 ml/min; Globulin 4.2 g/dL (2.2-4.2); Glucose 122 mg/dL (74-106); Lipase 155 U/L (73-393); Potassium 3.8 mmol/L (3.5-5.1); Protein, Total 7.1 g/dL (6.4-8.2); Sodium Level 139 mmol/L (136-145)
[2021-05-20] MEDS: Morphine 2 MG/ML Syringe IV (02:01)
--- NOTE | 2021-05-20 04:03 | EX.ED.DYSGE1 ---
HPI History of Present Illness Chief Complaint: Abd Pain Narrative Narrative: Patient is an 80-year-old female who reports a past medical history of pancreatitis. She states that her gallbladder has been removed she does not drink alcohol and does not have an obvious reason for her pancreatitis. Patient states that she was at home this evening and around 830 noticed some pain in her upper abdomen which is sharp in nature and feels similar to the previous bouts of pancreatitis. 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 Cellulitis of left leg Chronic venous hypertension (idiopathic) with inflammation of bilateral lower extremity Chronic venous hypertension (idiopathic) with ulcer of left lower extremity Chronic venous stasis dermatitis Decubitus ulcer of left buttock, stage 2 Diabetes Diabetes DVT (deep venous thrombosis) Edema of both legs Essential hypertension Failure to thrive Generalized weakness GERD (gastroesophageal reflux disease) GI bleed Heel spur Hiatal hernia history of cellulitis of leg Hx of venous thrombosis and embolism Hyperpigmentation of skin Hypertension Kidney disease Leg swelling Lipodermatosclerosis Localized edema Nausea 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 Non-smoker Obesity Osteoarthritis Osteoporosis Palpitations Peripheral arterial disease Positional vertigo Post-phlebitic dermatosis of both lower extremities Pressure ulcer of right buttock, stage 3 Pure hypercholesterolemia Sludge in gallbladder Ulcer Venous stasis ulcer Home Medications irbesartan 75 mg PO DAILY 01/15/17 [History Last Taken 12/20/20 09:00] potassium chloride 10 mEq capsule,extended release 10 meq PO PRN PRN 10/11/19 [History Last Taken 12/21/20] torsemide 10 mg DAILY PRN PRN 12/21/20 [History Last Taken 12/21/20] famotidine 20 mg PO BID 12/22/20 [History Last Taken 12/20/20] Allergy/AdvReac Type Severity Reaction Status Date / Time ezetimibe [From Zetia] Allergy Itching Verified 12/21/20 20:56 lisinopril Allergy cough Verified 12/21/20 20:56 neomycin [Neomycin] Allergy gets in Verified 12/21/20 20:56 blood stream and pass out neomycin sulfate Allergy Itching Verified 12/21/20 20:56 [From Neosporin ([id number])] polymyxin B [Polymyxin B] Allergy Unknown Verified 12/21/20 20:56 Sulfa (Sulfonamide Allergy Unknown Verified 12/21/20 20:56 Antibiotics) tetracycline [Tetracycline] Allergy Itching Verified 12/21/20 20:56 adhesive tape AdvReac Severe pulls Verified 12/21/20 20:56 skin atorvastatin calcium AdvReac Pain in Verified 12/21/20 20:56 [From Lipitor] joints, muscle damage Family History Mother CAD (coronary artery disease) Myocardial infarction Son Hypertension Brother Aortic aneurysm Father Diabetes Heart disease Surgical History H/O dilation and curettage history excision heel spur right foot History of cataract surgery History of cholecystectomy History of hernia repair History of left heart catheterization History of tubal ligation Lipoma Rectal fistula Social History household members: none housing: house current occupational status: employed Smoking Status: Never smoker alcohol intake: never substance use type: does not use caffeine: Yes Type: coffee Number of servings: 1 what type of physical activity do you participate in: none seatbelt use: always do you feel safe at home: Yes ROS ROS ED Constitutional Constitutional ED: Denies chills or fever(s) ENT ENT ED: Denies sore throat Cardiovascular Cardiovascular: Denies chest pain Respiratory/Chest Respiratory/Chest: Denies cough or dyspnea Gastrointestinal Gastrointestinal: Reports abdominal pain and nausea; Denies diarrhea or vomiting Genitourinary Genitourinary ED: Reports urinary frequency; Denies dysuria Musculoskeletal Musculoskeletal: Denies myalgias Integumentary Denies rash Neurologic Neurologic: Denies headache(s) Hematologic/Lymphatic Hematologic/Lymphatic: Denies easy bleeding or easy bruising EXAM Physical Exam Const Vital Signs: 05/19/21 23:05 05/20/21 02:38 Temperature 97.0 F L Temperature Source Temporal Pulse Rate 65 Respiratory Rate 16 18 Blood Pressure 150/66 H Blood Pressure Mean 94 Pulse Ox 98 Oxygen Delivery Method Room Air Positive well nourished and well developed General Appearance ED: well developed HEENT Reports moist mucous membranes Eyes PERRL and EOMs intact bilaterally Eyes Narrative: No scleral icterus Neck supple Resp normal respiratory effort and clear to auscultation bilaterally Cardio regular rate and regular rhythm Rate: other Other Details: Radial pulses are plus 2 out of 4 bilaterally they are equal and symmetric GI non-tender and non-distended GI Narrative: There is pain with palpation in the midepigastric region with slight guarding at the site but no peritoneal signs or pulsatile mass Auscultation: normoactive bowel sounds Palpation: soft Extremity normal to inspection Neuro oriented x3 and CN's II-XII intact bilaterally Sensorium / Orientation: alert Motor Exam: strength 5/5 throughout Psych mental status grossly normal Skin no rashes or lesions noted Skin Narrative: No jaundice noted MDM MDM MDM Narrative Medical decision making narrative: Patient presented to the ER afebrile but did have pain in the midepigastric region and reported a history of pancreatitis. Secondary to this I elected to perform basic laboratory studies as well as CT scan. The patient's lipase is normal at [address] scan shows a dilated intra and extrahepatic bile duct. 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 The patient's chart was reviewed and these changes were present at her previous admission in December with MRCP showing no obvious stone as the cause of the dilation. Reportedly the patient states she saw a GI doctor who does not come to this hospital and he advised her that if symptoms are persisting that she may need a stent placed. Based on her recurrent pain as well as the abnormal CT scan I did discuss the case with GI on-call Dr. Lundberg. He recommends because of her recurrent pain and abnormal CAT scan that she be placed in the hospital undergo an MRI with possible stent placement if a recurrent stricture is noted. Therefore medicine was contacted and they do agreed to admit the patient at this time for further care of her intractable abdominal pain and biliary ductal dilation. The patient's initial lipase was normal but repeat does now have elevation at approximately 1800 consistent with acute pancreatitis. Lab Data Attestation: I reviewed the patient's lab results. Labs: Laboratory Results - last 24 hr 05/19/21 05/19/21 05/19/21 23:09 23:09 23:46 WBC 5.7 RBC 4.07 L Hgb 13.2 Hct 39.0 MCV 95.8 MCH 32.4 H MCHC 33.8 RDW Std Deviation 44.9 H RDW Coeff of Mihir 12.7 Plt Count 139 L MPV 12.2 H Immature Gran % (Auto) 0.400 Neut % (Auto) 40.8 L Lymph % (Auto) 46.9 H [place] % (Auto) 10.8 H Eos % (Auto) 0.7 Baso % (Auto) 0.4 Absolute Neuts (auto) 2.3 Absolute Lymphs (auto) 2.66 Nucleated RBC % 0 Sodium 139 Potassium 3.8 Chloride 107 Carbon Dioxide 29.0 Anion Gap 3 L BUN 17 Creatinine 0.89 Estim Creat Clear Calc 61.51 Est GFR (MDRD) Af Amer 78 Est GFR (MDRD) Non-Af 65 BUN/Creatinine Ratio 19.1 Glucose 122 H Calcium 8.8 Total Bilirubin 0.50 Direct Bilirubin 0.15 AST 20 ALT 15 Alkaline Phosphatase 72 Total Protein 7.1 Albumin 2.9 L Globulin 4.2 Lipase 155 Urine Color Yellow Urine Clarity Clear Urine pH 6.5 Ur Specific [place] 1.005 Urine Protein Negative Urine Glucose (UA) Normal Urine Ketones Negative Urine Occult Blood 25 H Urine Nitrite Negative Urine Bilirubin Negative Urine Urobilinogen Normal Ur Leukocyte Esterase Negative Urine RBC 0-5 SEEN Urine WBC 0 SEEN Ur Squamous Epith Cells 0-5 SEEN Urine Bacteria RARE Urine Mucus 0 SEEN 05/20/21 03:50 WBC RBC Hgb Hct MCV MCH MCHC RDW Std Deviation RDW Coeff of Mihir Plt Count MPV Immature Gran % (Auto) Neut % (Auto) Lymph % (Auto) [place] % (Auto) Eos % (Auto) Baso % (Auto) Absolute Neuts (auto) Absolute Lymphs (auto) Nucleated RBC % Sodium Potassium Chloride Carbon Dioxide Anion Gap BUN Creatinine Estim Creat Clear Calc Est GFR (MDRD) Af Amer Est GFR (MDRD) Non-Af BUN/Creatinine Ratio Glucose Calcium Total Bilirubin Direct Bilirubin AST ALT Alkaline Phosphatase Total Protein Albumin Globulin Lipase 1822 H Urine Color Urine Clarity Urine pH Ur Specific [place] Urine Protein Urine Glucose (UA) Urine Ketones Urine Occult Blood Urine Nitrite Urine Bilirubin Urine Urobilinogen Ur Leukocyte Esterase Urine RBC Urine WBC Ur Squamous Epith Cells Urine Bacteria Urine Mucus Radiography Diagnostic Testing: Clinical Impression(s) from Imaging Studies Abdomen/Pelvis CT 05/19/21 23:28 IMPRESSION: Persistent intra and extrahepatic ductal dilatation. Consider possible chronic partial obstruction at the level of the sphincter of Larry. There is mild distention of the duodenal mild wall thickening consider possible duodenitis. Constipation. Bilateral benign-appearing stable renal cysts Hiatal hernia. No appendicitis. No radiographic evidence of pancreatitis. Degenerative change of the thoracolumbar spine. Electronically Signed: Ashley Hartman MD at 1:41 EST Tel , Service support , Discharge Plan Triage Chief Complaint: Abd Pain ED Provider: Shahid Davis Dx/Rx/DC Orders Clinical Impression: Acute pancreatitis Prescriptions: No Action potassium chloride 10 mEq capsule, extended release 10 meq PO PRN PRN (Reason: HYPOKALEMIA) RF: 0 irbesartan 75 MG tablet 75 mg PO DAILY RF: 0 torsemide 20 mg tablet 10 mg DAILY PRN PRN (Reason: Edema) RF: 0 famotidine 20 mg tablet 20 mg PO BID RF: 0 Primary Care Provider: Lesly Chairez NP Referrals: Lesly Chairez SUPPORT ANALYST, SUPPORT ANALYST-C [Primary Care Provider] - Disposition Disposition: Acute Care [facility]
--- NOTE | 2021-05-20 04:07 | PCM.HP.STD ---
[facility] - General General Date of Service: 05/20/21 Chief Complaint: Upper quadrant abdominal pain HPI Narrative BRISSA ARRIAGA, is a 80 F who presents to the emergency room at [facility] with a chief complaint of upper quadrant abdominal pain which started approximately 830 on 05/19/2021. Patient was hospitalized in October 2020 for acute pancreatitis, reason for pancreatitis was not determined. Patient had an MRCP performed in October 2020 which showed mild intrahepatic biliary ductal dilatation and dilated common bile duct-no ductal stones were identified. Patient was following up with Dr. Oates as an outpatient, he recommended insertion of a biliary stent if the patient had further problems, he stated this would be done at [facility] but the patient did not want to go to this hospital to have this done. Work-up in the ER included labs, patient had a normal white blood cell count, patient's glucose was 122, initial lipase was 155. CT of the abdomen showed a dilated common bile duct, a stone was not visualized. There was mild distention of the pancreatic duct-there is noted to be mild distention of the abdominal wall with possible duodenitis. A small focus of right middle lobe consolidation was partially seen also. Patient has no signs or symptoms of pneumonia however. Patient's lipase was repeated in the emergency room at approximately 4 AM, result was 1822. Patient was admitted to [facility] as a full admission for acute recurrent pancreatitis. 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 Cellulitis of left leg Chronic venous hypertension (idiopathic) with inflammation of bilateral lower extremity Chronic venous hypertension (idiopathic) with ulcer of left lower extremity Chronic venous stasis dermatitis Decubitus ulcer of left buttock, stage 2 Diabetes Diabetes DVT (deep venous thrombosis) Edema of both legs Essential hypertension Failure to thrive Generalized weakness GERD (gastroesophageal reflux disease) GI bleed Heel spur Hiatal hernia history of cellulitis of leg Hx of venous thrombosis and embolism Hyperpigmentation of skin Hypertension Kidney disease Leg swelling Lipodermatosclerosis Localized edema Nausea 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 Non-smoker Obesity Osteoarthritis Osteoporosis Palpitations Peripheral arterial disease Positional vertigo Post-phlebitic dermatosis of both lower extremities Pressure ulcer of right buttock, stage 3 Pure hypercholesterolemia Sludge in gallbladder Ulcer Venous stasis ulcer Home Medications irbesartan 75 mg PO DAILY 01/15/17 [History Last Taken 12/20/20 09:00] potassium chloride 10 mEq capsule,extended release 10 meq PO PRN PRN 10/11/19 [History Last Taken 12/21/20] torsemide 10 mg DAILY PRN PRN 12/21/20 [History Last Taken 12/21/20] famotidine 20 mg PO BID 12/22/20 [History Last Taken 12/20/20] Allergy/AdvReac Type Severity Reaction Status Date / Time ezetimibe [From Zetia] Allergy Itching Verified 12/21/20 20:56 lisinopril Allergy cough Verified 12/21/20 20:56 neomycin [Neomycin] Allergy gets in Verified 12/21/20 20:56 blood stream and pass out neomycin sulfate Allergy Itching Verified 12/21/20 20:56 [From Neosporin ([id number])] polymyxin B [Polymyxin B] Allergy Unknown Verified 12/21/20 20:56 Sulfa (Sulfonamide Allergy Unknown Verified 12/21/20 20:56 Antibiotics) tetracycline [Tetracycline] Allergy Itching Verified 12/21/20 20:56 adhesive tape AdvReac Severe pulls Verified 12/21/20 20:56 skin atorvastatin calcium AdvReac Pain in Verified 12/21/20 20:56 [From Lipitor] joints, muscle damage Family History Mother CAD (coronary artery disease) Myocardial infarction Son Hypertension Brother Aortic aneurysm Father Diabetes Heart disease Surgical History H/O dilation and curettage history excision heel spur right foot History of cataract surgery History of cholecystectomy History of hernia repair History of left heart catheterization History of tubal ligation Lipoma Rectal fistula Social History household members: none housing: house current occupational status: employed Smoking Status: Never smoker alcohol intake: never substance use type: does not use caffeine: Yes Type: coffee Number of servings: 1 what type of physical activity do you participate in: none seatbelt use: always do you feel safe at home: Yes ROS Constitutional Constitutional: Denies anorexia, change in weight, fever(s), night sweats or weakness Eyes Eyes: Denies blurry vision, change in vision, discharge from eye(s) or eye pain Cardiovascular Cardiovascular: Denies chest pain, claudication, edema or palpitations Respiratory/Chest Respiratory/Chest: Denies cough, hemoptysis, shortness of breath at rest or shortness of breath with exertion Gastrointestinal Gastrointestinal: Reports abdominal pain and nausea; Denies constipation, diarrhea, hematemesis, hematochezia, melena or vomiting Genitourinary Genitourinary: Denies dysuria, hematuria, urinary frequency, urinary hesitancy, urinary incontinence or urinary urgency Musculoskeletal Musculoskeletal: Denies back pain, joint pain, joint stiffness, joint swelling, myalgias or neck pain Neurologic Neurologic: Denies abnormal gait, abnormal speech, dizziness, focal weakness, headache(s), loss of vision, numbness, other visual disturbances, paresthesias, syncope or tingling Psychiatric Psychiatric: Denies anxiety, cognitive impairment, depression, irritability, mood swings or suicidal ideation Endocrine Endocrinology: Denies change in body appearance, cold intolerance, excessive sweating, heat intolerance, polydipsia or polyuria Hematologic/Lymphatic Hematologic/Lymphatic: Denies none, anemia, easy bleeding, easy bruising or lymphadenopathy Allergic/Immunologic Allergic/Immunologic: Denies rhinitis, urticaria, eczemia or asthma Vital Signs Vital Signs Vital Signs: 05/19/21 23:05 05/20/21 02:38 Temperature 97.0 F L Temperature Source Temporal Pulse Rate 65 Respiratory Rate 16 18 Blood Pressure 150/66 H Blood Pressure Mean 94 Pulse Ox 98 Oxygen Delivery Method Room Air Weight Weight: 78.6 kg Body Mass Index (BMI) 36.2 Physical Exam Const alert, oriented x3, no apparent distress and healthy appearing General Appearance: cooperative, well kempt and well developed Orientation / Consciousness: awake, oriented to person, oriented to place and oriented to time HEENT normocephalic, head/scalp atraumatic, hearing grossly normal bilaterally and moist oral mucous membranes Eyes PERRL, EOMs intact bilaterally and conjunctivae normal Neck nuchal rigidity, supple, no JVD, thyroid normal and no carotid bruits General: trachea midline Resp normal respiratory effort, no retractions, no use of accessory muscles and clear to auscultation bilaterally Auscultation: Negative for rales, rhonchi or wheezes Cardio regular rate, regular rhythm, no murmurs, no rub and no gallops GI soft to palpation and non-distended GI Narrative: Patient's abdomen was not distended, bowel sounds were present, patient had diffuse abdominal tenderness across the upper abdomen-worse in the mid abdominal area. There is no rebound abdominal tenderness noted. Extremity no clubbing, cyanosis or edema Skin no rashes or lesions noted and no wounds Skin Narrative: There are chronic stasis dermatitis changes noted over the lower legs bilaterally, there is generalized swelling of both lower legs without pitting edema. General Skin Exam: no breakdown Neuro oriented x3, CN's II-XII intact bilaterally, no focal motor deficits and no sensory deficits noted Sensorium / Orientation: awake and alert Speech: speech normal Psych thought process normal and affect normal Results Lab / Micro Data Result Diagrams: 05/19/21 23:09 05/19/21 23:09 Labs: Laboratory Results - last 24 hr 05/19/21 23:09: WBC 5.7, RBC 4.07 L, Hgb 13.2, Hct 39.0, MCV 95.8, MCH 32.4 H, MCHC 33.8, RDW Std Deviation 44.9 H, RDW Coeff of Mihir 12.7, Plt Count 139 L, MPV 12.2 H, Immature Gran % (Auto) 0.400, Neut % (Auto) 40.8 L, Lymph % (Auto) 46.9 H, [place] % (Auto) 10.8 H, Eos % (Auto) 0.7, Baso % (Auto) 0.4, Absolute Neuts (auto) 2.3, Absolute Lymphs (auto) 2.66, Nucleated RBC % 0 05/19/21 23:09: Sodium 139, Potassium 3.8, Chloride 107, Carbon Dioxide 29.0, Anion Gap 3 L, BUN 17, Creatinine 0.89, Estim Creat Clear Calc 61.51, Est GFR (MDRD) Af Amer 78, Est GFR (MDRD) Non-Af 65, BUN/Creatinine Ratio 19.1, Glucose 122 H, Calcium 8.8, Total Bilirubin 0.50, Direct Bilirubin 0.15, AST 20, ALT 15, Alkaline Phosphatase 72, Total Protein 7.1, Albumin 2.9 L, Globulin 4.2, Lipase 155 05/19/21 23:46: Urine Color Yellow, Urine Clarity Clear, Urine pH 6.5, Ur Specific [place] 1.005, Urine Protein Negative, Urine Glucose (UA) Normal, Urine Ketones Negative, Urine Occult Blood 25 H, Urine Nitrite Negative, Urine Bilirubin Negative, Urine Urobilinogen Normal, Ur Leukocyte Esterase Negative, Urine RBC 0-5 SEEN, Urine WBC 0 SEEN, Ur Squamous Epith Cells 0-5 SEEN, Urine Bacteria RARE, Urine Mucus 0 SEEN Micro: Microbiology 05/20/21 02:14 Nasal Secretion SARS-CoV-2 Antigen (Rapid) - Final Radiology Impression Abdomen/Pelvis CT 05/19/21 23:28 IMPRESSION: Persistent intra and extrahepatic ductal dilatation. Consider possible chronic partial obstruction at the level of the sphincter of Larry. There is mild distention of the duodenal mild wall thickening consider possible duodenitis. Constipation. Bilateral benign-appearing stable renal cysts Hiatal hernia. No appendicitis. No radiographic evidence of pancreatitis. Degenerative change of the thoracolumbar spine. Electronically Signed: Ashley Hartman MD at 1:41 EST Tel , Service support , Assessment & Plan Assessment/Plan (1) Bile duct obstruction: PLAN: 1. Acute recurrent pancreatitis-patient will be admitted to [facility], she will be given IV fluids and seen in consultation by gastroenterology, MRCP will be ordered, she may need a biliary stent placed. #2 type 2 diabetes-patient is diet controlled #3 essential hypertension #4 possible common bile duct obstruction-again patient will undergo an MRCP and see GI. #5 chronic lower extremity edema/lymphedema with stasis dermatitis Charges/Coding Visit Charges Inpatient E&M: 44399 Init Hosp L3
[2021-05-20 04:29] LABS: Lipase 1822 U/L (73-393)
--- NOTE | 2021-05-20 04:48 | MRI_ITS ---
History: Recurrent pancreatitis ,upper abd pain; prev cholecystectomy EXAMINATION: MR MRCP W/O Contrast TECHNIQUE: Multiplanar and multisequence MR images of the abdomen were obtained with MRCP sequence. Three-dimensional post-processing reconstructions were performed. IV Contrast dosage and agent: None. COMPARISON: CT abdomen and pelvis May 20, 2021 FINDINGS: LIVER: No mass. Normal morphology. GALLBLADDER AND BILIARY TREE: Gallbladder is surgically absent. A very low insertion site of the cystic duct noted with a very long segment cystic duct remnant. The extrahepatic CBD measures 12 mm. Distended intra-hepatic bile ducts noted. There appears to be a 6 mm filling defect within the distal common bile duct just beyond the junction of the common bile duct and pancreatic duct suggestive of an obstructive stone. PANCREAS: The proximal pancreatic duct is distended measuring nearly 5 mm in maximum diameter. No evidence of acute pancreatitis SPLEEN: Non-enlarged. ADRENAL GLANDS: No nodules. KIDNEYS: Normal renal size and position. No hydronephrosis. No mass. LYMPH NODES: No enlarged periportal or retroperitoneal lymph nodes. PERITONEUM: No ascites or fluid collection. VESSELS: Aorta is non-dilated. LOWER CHEST: No pleural effusion. MRI/MRCP Abdomen without Contrast IMPRESSION: Findings suggest a 6 mm distal common bile duct stone causing distention of the biliary tree and pancreatic duct. Long cystic duct remnant secondary to low insertion site. No evidence of acute pancreatitis at 1036 Reported and signed by: Dilan Wadsworth MD Electronically Signed: Dilan Wadsworth MD at 10:34 EST Tel , Service support ,
[2021-05-20] MEDS: 0.9% Normal Saline 1,000 ML 175 ML IV ×3 (05:35→18:53)
--- NOTE | 2021-05-20 05:55 | NURSING ---
Family member Randa Perez called and updated.
--- NOTE | 2021-05-20 09:35 | PCS.PANDOC ---
PANDEMIC DOCUMENTATION INITIATED: Date: 01/18/2021 Time: 190
[2021-05-20] MEDS: Famotidine 20 MG Tablet PO ×2 (10:35→22:27)
[2021-05-20] MEDS: Heparin Injection (Vial) 5,000 UNIT/ML VIAL 5000 UNIT SC ×2 (10:35→22:27)
[2021-05-20] MEDS: Losartan Potassium 25 MG Tablet PO (10:36)
--- NOTE | 2021-05-20 11:15 | CASEMGMT ---
RN KATHERINE Face to Face with patient for initial transition planning/care coordination assessment. RN CM introduced self and role at [facility]. Patient lying in bed, alert and oriented. Patient willing to participate in assessment and is able to answer all questions appropriately. Care providers, pharmacy, and demographics verified. Patient wishes to discharge home, denies need for home health at this time. Patient states she has no further needs or concerns at this time. CM to follow for discharge planning needs that may arise. PCP: Lesly Chairez Specialists: Isa[employer] travel counselor; Michelle, campus monitor Preferred Pharmacy: [facility] Benef[facility]: yes Living Will/HPOA: yes, daughter Terrie Bowers LNOK: daughter, son Living Arrangements: Patient lives in 2 story home with bed and bath on first floor. 1 step to enter the home. Patient states she is independent at home. Transportation: self/daughter DME/HHC: Patient states she has shower chair, BSC, raised toilet, cane, walker, and grab bars at home. Patient denies previous HHC or SNF. Disposition Plan: Patient to discharge home with family support and follow-up plans in place. Lara JORDAN, RN, CM
--- NOTE | 2021-05-20 12:01 | CON.PCM.GI_ITS ---
HPI Consult Data Date of Consult: 05/20/21 HPI Narrative HPI Narrative: BRISSA ARRIAGA, is a 80 F who presents with acute abdominal pain. She has a past medical history of pancreatitis diagnosed back in 2019. It was thought to be idiopathic. She had had her gallbladder out 6 months prior to her having her first episode of pancreatitis. She had 3 episodes of pancreatitis that she knows of. She did undergo MRCP approximately 6 months ago for recurrent idiopathic pancreatitis. MRCP showed dilated extra and intrahepatic ducts with some mild pancreatic duct dilation. However no filling defect was seen on MRCP in the bile duct. She comes in on this current visit with worsening abdominal pain and discovered to have pancreatitis again. CT scan shows significant ductal dilation of the common bile duct up to 1.6 cm and dilation of the pancreatic duct up until 5 mm. An MRCP was ordered today and it showed a filling defect approximately 6 mm in diameter in the distal common bile duct with pancreatic ductal dilation. She is still having a little bit of abdominal pain but is much improved since her initial presentation. She does not drink any alcohol. She has a family history of pancreatic cancer or autoimmune pancreatitis. She does not know her triglyceride levels. She denies any chest pain or shortness of breath. She has not had any complications associated with pancreatitis including ARDS, renal failure, pseudocyst or chronic pancreatitis. She also has no history of type 1 diabetes secondary to recurrent pancreatitis. She does have a history of DVT but it was not thought to be provoked by a hypercoagulable state. [facility] Medical History (Updated 05/20/21 @ 12:[address] 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 Cellulitis of left leg Choledocholithiasis Chronic venous hypertension (idiopathic) with inflammation of bilateral lower extremity Chronic venous hypertension (idiopathic) with ulcer of left lower extremity Chronic venous stasis dermatitis Decubitus ulcer of left buttock, stage 2 Diabetes Diabetes DVT (deep venous thrombosis) Edema of both legs Essential hypertension Failure to thrive Generalized weakness GERD (gastroesophageal reflux disease) GI bleed Heel spur Hiatal hernia history of cellulitis of leg Hx of venous thrombosis and embolism Hyperpigmentation of skin Hypertension Kidney disease Leg swelling Lipodermatosclerosis Localized edema Nausea 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 Non-smoker Obesity Osteoarthritis Osteoporosis Palpitations Peripheral arterial disease Positional vertigo Post-phlebitic dermatosis of both lower extremities Pressure ulcer of right buttock, stage 3 Pure hypercholesterolemia Sludge in gallbladder Ulcer Venous stasis ulcer Home Medications irbesartan 75 mg PO DAILY 01/15/17 [History Last Taken 12/20/20 09:00] potassium chloride 10 mEq capsule,extended release 10 meq PO PRN PRN 10/11/19 [History Last Taken 12/21/20] torsemide 10 mg DAILY PRN PRN 12/21/20 [History Last Taken 12/21/20] famotidine 20 mg PO BID 12/22/20 [History Last Taken 12/20/20] Allergy/AdvReac Type Severity Reaction Status Date / Time ezetimibe [From Zetia] Allergy Itching Verified 12/21/20 20:56 lisinopril Allergy cough Verified 12/21/20 20:56 neomycin [Neomycin] Allergy gets in Verified 12/21/20 20:56 blood stream and pass out neomycin sulfate Allergy Itching Verified 12/21/20 20:56 [From Neosporin ([id number])] polymyxin B [Polymyxin B] Allergy Unknown Verified 12/21/20 20:56 Sulfa (Sulfonamide Allergy Unknown Verified 12/21/20 20:56 Antibiotics) tetracycline [Tetracycline] Allergy Itching Verified 12/21/20 20:56 adhesive tape AdvReac Severe pulls Verified 12/21/20 20:56 skin atorvastatin calcium AdvReac Pain in Verified 12/21/20 20:56 [From Lipitor] joints, muscle damage Family History Mother CAD (coronary artery disease) Myocardial infarction Son Hypertension Brother Aortic aneurysm Father Diabetes Heart disease Surgical History H/O dilation and curettage history excision heel spur right foot History of cataract surgery History of cholecystectomy History of hernia repair History of left heart catheterization History of tubal ligation Lipoma Rectal fistula Social History household members: none housing: house current occupational status: employed Smoking Status: Never smoker alcohol intake: never substance use type: does not use caffeine: Yes Type: coffee Number of servings: 1 what type of physical activity do you participate in: none seatbelt use: always do you feel safe at home: Yes ROS Review of Systems ROS Unobtainable: other Constitutional Constitutional: Denies fatigue, fever(s), poor appetite, weight gain or weight loss ENT HEENT: Denies mouth lesions Cardiovascular Cardiovascular: Denies abdominal bloating, abdominal edema or abdominal pain Respiratory/Chest Respiratory/Chest: Denies change in mental status, change in phlegm color, chest congestion or chest tightness Gastrointestinal Gastrointestinal: Denies belching, bloating, change in bowel habits, change in stool character, chewing difficulty, coffee ground emesis, constipation, sealer aircraft mping, diarrhea, dyspepsia, dysphagia, early satiety, excessive flatus, fecal incontinence, heartburn, hematemesis, hematochezia, hemorrhoids, loose stools, melena, nausea, odynophagia, rectal bleeding, tenesmus, vomiting or weight changes Genitourinary Genitourinary: Denies abdominal discomfort, burning urination or itching Musculoskeletal Musculoskeletal: Reports as per HPI; Denies muscle weakness or myalgias Integumentary Integumentary: Denies jaundice Neurologic Neurologic: Denies lack of coordination or weakness Psychiatric Psychiatric: Denies confusion, depression, memory loss, mood swings, paranoia or suicidal ideation Endocrine Endocrinology: Denies systems reviewed and no addt'l complaints, except as documented Hematologic/Lymphatic Hematologic/Lymphatic: Denies anemia, easy bleeding, easy bruising or lymphadenopathy Allergic/Immunologic Allergic/Immunologic: Denies systems reviewed and no addt'l complaints, except as documented Physical Exam Const alert General Appearance: cooperative Orientation / Consciousness: oriented to person HEENT hearing grossly normal bilaterally Head and Scalp: normal to inspection Face and Sinus: face symmetric Nose: external nose normal Mouth: oral and palatal mucosa normal Eyes conjunctivae normal General Eye: normal appearance of both eyes Neck full ROM General: normal visual inspection Lymph Lymphatic: no lymphadenopathy noted Chest inspection of chest normal and palpation of chest normal Chest: symmetrical chest wall rise Resp normal respiratory effort Effort and Inspection: able to speak in complete sentences Cardio regular rate GI non-distended Percussion: normal to percussion Rectal Exam: deferred Neuro Speech: speech normal Gait (Neuro): normal gait Lab / Micro Data Result Diagrams: 05/19/21 23:09 05/19/21 23:09 Labs: Laboratory Results - last 24 hr 05/19/21 23:09: WBC 5.7, RBC 4.07 L, Hgb 13.2, Hct 39.0, MCV 95.8, MCH 32.4 H, MCHC 33.8, RDW Std Deviation 44.9 H, RDW Coeff of [place] 12.7, Plt Count 139 L, MPV 12.2 H, Immature Gran % (Auto) 0.400, Neut % (Auto) 40.8 L, Lymph % (Auto) 46.9 H, [place] % (Auto) 10.8 H, Eos % (Auto) 0.7, Baso % (Auto) 0.4, Absolute Neuts (auto) 2.3, Absolute Lymphs (auto) 2.66, Nucleated RBC % 0 05/19/21 23:09: Sodium 139, Potassium 3.8, Chloride 107, Carbon Dioxide 29.0, Anion Gap 3 L, BUN 17, Creatinine 0.89, Estim Creat Clear Calc 61.51, Est GFR (MDRD) Af Amer 78, Est GFR (MDRD) Non-Af 65, BUN/Creatinine Ratio 19.1, Glucose 122 H, Calcium 8.8, Total Bilirubin 0.50, Direct Bilirubin 0.15, AST 20, ALT 15, Alkaline Phosphatase 72, Total Protein 7.1, Albumin 2.9 L, Globulin 4.2, Lipase 155 05/19/21 23:46: Urine Color Yellow, Urine Clarity Clear, Urine pH 6.5, Ur Specific [place] 1.005, Urine Protein Negative, Urine Glucose (UA) Normal, Urine Ketones Negative, Urine Occult Blood 25 H, Urine Nitrite Negative, Urine Bilirubin Negative, Urine Urobilinogen Normal, Ur Leukocyte Esterase Negative, Urine RBC 0-5 SEEN, Urine WBC 0 SEEN, Ur Squamous Epith Cells 0-5 SEEN, Urine Bacteria RARE, Urine Mucus 0 SEEN 05/20/21 03:50: Lipase 1822 H Micro: Microbiology 05/20/21 02:14 Nasal Secretion SARS-CoV-2 Antigen (Rapid) - Final Radiology Impression Abdomen/Pelvis CT 05/19/21 23:28 IMPRESSION: Persistent intra and extrahepatic ductal dilatation. Consider possible chronic partial obstruction at the level of the sphincter of Larry. There is mild distention of the duodenal mild wall thickening consider possible duodenitis. Constipation. Bilateral benign-appearing stable renal cysts Hiatal hernia. No appendicitis. No radiographic evidence of pancreatitis. Degenerative change of the thoracolumbar spine. Electronically Signed: Ashley Hartman MD at 1:41 EST Tel , Service support , MRCP 05/20/21 04:48 IMPRESSION: Findings suggest a 6 mm distal common bile duct stone causing distention of the biliary tree and pancreatic duct. Long cystic duct remnant secondary to low insertion site. 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 I do not see any signs of pancreatic divisum on her MRCP. I think this is likely secondary to recurrent choledocholithiasis either from intrahepatic stones that may have transitioned into the extrahepatic biliary system. At this time she has a low Vu's criteria by lab work and CT findings. I would hold anticoagulation to prevent transformation to hemorrhagic pancreatitis. She is not on any medicines associated pancreatitis. She is currently 125 cc of normal saline. She has not shown any signs of CHF or fluid overload. I would continue that treatment regimen at this time. The goal is to get her hematocrit level down to 35%. (2) Choledocholithiasis: PLAN: Her MRI did show choledocholithiasis. She will need to undergo ERCP with stone removal, sphincterotomy and possible stent placement. All questions were answered by the patient at the bedside. She was explained alternatives, risk, benefits including and not withstanding bleeding, infection, sepsis, post ERCP pancreatitis being approximately 5% of cases of ERCP. She agreed to septals risk through verbal and written consent. Charges/Coding Visit Charges Inpatient E&M: 98857 Init Hosp L3
[2021-05-20] MEDS: Morphine 4 MG/ML Syringe IV (12:59)
--- NOTE | 2021-05-20 14:27 | CHAPLAIN ---
Type of Pastoral Visit _x__ Initial Visit ___ Follow-up Visit ___ On-call Visit ___ General Patient Visit ___ Spiritual Assessment ___ Family Conference ___ Bereavement ___ Rapid Response ___ Code Blue ___ Other (describe below) Pastoral Care Referral From _x__ Patient ___ Family ___ Nurse ___ Physician ___ Mixer Machine Feeder ___ Cfa ___ Other (describe below) Sacrament/Intervention _x__ Active listening ___ Anointing ___ Methodist ___ Bereavement ___ Communion _x__ Crystal exploration ___ _x__ Life review _x__ Prayer ___ Reconciliation ___ Sacrament of Sick _x__ Supportive presence ___ Wedding ___ Other (describe below) Pastoral Comments patient and daughter in room waiting for surgery later today; pt talks about crystal, hopes for better health, and welcomes prayer and presence
--- NOTE | 2021-05-20 15:49 | PN.HOSP_ITS ---
Subjective Subjective Patient seen and examined. Daughter was by her bedside. She had no complaints. She said abdominal pain was better at time I reviewed her but it was episodic. MRCP showed a common bile duct stone and she is due for ERCP later today. Objective Data Objective Data Vital Signs: Vital Signs Temp Pulse Resp BP Pulse Ox 97.9 F 70 18 159/74 H 93 05/20/21 14:28 05/20/21 14:28 05/20/21 14:28 05/20/21 14:28 05/20/21 14:28 Oxygen Delivery Method Room Air Weight: 167 lb 8.821 oz Body Mass Index (BMI) 35.0 Intake & Output: Intake and Output for Last 24 Hours 05/18/21 05/19/21 05/20/21 23:59 23:59 23:59 Intake Total 1500 / 1500 Balance 1500 / 1500 Lab / Micro Data Result Diagrams: 05/19/21 23:09 05/19/21 23:09 Labs: Laboratory Results - last 24 hr 05/19/21 23:09: WBC 5.7, RBC 4.07 L, Hgb 13.2, Hct 39.0, MCV 95.8, MCH 32.4 H, MCHC 33.8, RDW Std Deviation 44.9 H, RDW Coeff of Mihir 12.7, Plt Count 139 L, MPV 12.2 H, Immature Gran % (Auto) 0.400, Neut % (Auto) 40.8 L, Lymph % (Auto) 46.9 H, [place] % (Auto) 10.8 H, Eos % (Auto) 0.7, Baso % (Auto) 0.4, Absolute Neuts (auto) 2.3, Absolute Lymphs (auto) 2.66, Nucleated RBC % 0 05/19/21 23:09: Sodium 139, Potassium 3.8, Chloride 107, Carbon Dioxide 29.0, Anion Gap 3 L, BUN 17, Creatinine 0.89, Estim Creat Clear Calc 61.51, Est GFR (MDRD) Af Amer 78, Est GFR (MDRD) Non-Af 65, BUN/Creatinine Ratio 19.1, Glucose 122 H, Calcium 8.8, Total Bilirubin 0.50, Direct Bilirubin 0.15, AST 20, ALT 15, Alkaline Phosphatase 72, Total Protein 7.1, Albumin 2.9 L, Globulin 4.2, Lipase 155 05/19/21 23:46: Urine Color Yellow, Urine Clarity Clear, Urine pH 6.5, Ur Specific [place] 1.005, Urine Protein Negative, Urine Glucose (UA) Normal, Urine Ketones Negative, Urine Occult Blood 25 H, Urine Nitrite Negative, Urine Bilirubin Negative, Urine Urobilinogen Normal, Ur Leukocyte Esterase Negative, Urine RBC 0-5 SEEN, Urine WBC 0 SEEN, Ur Squamous Epith Cells 0-5 SEEN, Urine Bacteria RARE, Urine Mucus 0 SEEN 05/20/21 03:50: Lipase 1822 H Micro: Microbiology 05/20/21 02:14 Nasal Secretion SARS-CoV-2 Antigen (Rapid) - Final Radiography Diagnostic Testing: Radiology Impression Abdomen/Pelvis CT 05/19/21 23:28 IMPRESSION: Persistent intra and extrahepatic ductal dilatation. Consider possible chronic partial obstruction at the level of the sphincter of Larry. There is mild distention of the duodenal mild wall thickening consider possible duodenitis. Constipation. Bilateral benign-appearing stable renal cysts Hiatal hernia. No appendicitis. No radiographic evidence of pancreatitis. Degenerative change of the thoracolumbar spine. Electronically Signed: Ashley Hartman MD at 1:41 EST Tel , Service support , MRCP 05/20/21 04:48 IMPRESSION: Findings suggest a 6 mm distal common bile duct stone causing distention of the biliary tree and pancreatic duct. Long cystic duct remnant secondary to low insertion site. No evidence of acute pancreatitis at 1036 Reported and signed by: Dilan Wadsworth MD Electronically Signed: Dilan Wadsworth MD at 10:34 EST Tel , Service support , Physical Exam Const alert, oriented x3 and no apparent distress Exam Limitations: no limitations Nutritional Appearance: cachectic HEENT head/scalp atraumatic, moist oral mucous membranes and oropharynx normal Head and Scalp: normocephalic Eyes PERRL, EOMs intact bilaterally and conjunctivae normal Neck no lymphadenopathy Resp normal respiratory effort, no retractions, no use of accessory muscles and clear to auscultation bilaterally Cardio regular rate, regular rhythm, S1 normal heart sound, S2 normal heart sound and no murmurs GI normal to inspection, nondistended, normoactive bowel sounds, soft to palpation and non-distended GI Narrative: mild epigastric tenderness, no guarding or rebound tenderness. Extremity normal to inspection and full ROM Peripheral Pulses: Yes pulses 2+ throughout Skin no rashes or lesions noted Neuro oriented x3 and CN's II-XII intact bilaterally Sensorium / Orientation: awake and alert Psych affect normal Assessment & Plan Assessment/Plan (1) Choledocholithiasis: (2) Acute pancreatitis: PLAN: #Acute pancreatitis due to choledocholithiasis * ERCP showed a common bile duct stone. Lipase was also elevated in the 1800s. * Liver enzymes are within normal limits. Currently n.p.o. and on IV morphine for pain. Been hydrated with IV fluids. * Gastroenterology on board. For ERCP later today * #Type 2 diabetes mellitus: Currently NPO. Insulin sliding scale. Accu-Cheks q. 4 hourly as she is n.p.o. #Benign essential hypertension * On losartan #Chronic lower extremity edema with stasis dermatitis: * Wound care on board * On torsemide * DVT prophylaxis: Heparin Charges/Coding Visit Charges Inpatient E&M: 05119 Subs Hosp L3
--- NOTE | 2021-05-20 16:40 | EKG12_ITS ---
Test Reason : PRE OP Blood Pressure : / mmHG Vent. Rate : 056 BPM Atrial Rate : 056 BPM P-R Int : 244 ms QRS Dur : 088 ms QT Int : 416 ms P-R-T Axes : 048 -49 019 degrees QTc Int : 401 ms Sinus bradycardia with sinus arrhythmia with 1st degree A-V block Left anterior fascicular block Abnormal ECG When compared with ECG of 22-DEC-2020 03:29, No significant change was found Confirmed by ELVA BAUTISTA, PEDRO ([id number]), sports editor BARBARA JACOBO ([id number]) on 05/25/2021 8:35:49 AM Referred By: BATSHEVA Confirmed By:PEDRO STEVENSON MD
--- NOTE | 2021-05-20 17:18 | RAD_ITS ---
CLINICAL HISTORY: PAIN COMPARISON: Earlier same day. TECHNIQUE: 5 image(s) of ERCP performed by Physician: RJ CHRISTIANSON were submitted for evaluation. FINDINGS: 5 fluoroscopic intraprocedural images are provided for interpretation. Endoscope is seen in place with cannulization and opacification of the biliary tree. There is distention of the common bile duct and intrahepatic biliary system. Questionable small filling defects are noted within the distal CBD. A balloon pass is demonstrated. The other soft tissues and osseous structures are unremarkable. RAD/ERCP Biliary Only IMPRESSION: 5 fluoroscopic images of an ERCP. Please see procedure report for further details. Electronically Signed: Shaheed Puga MD at 19:11 EST Tel , Service support ,
--- NOTE | 2021-05-20 18:54 | OP.CCLET_ITS ---
05/20/2021 Lesly Chairez, NOHEMY [address] [place] [address] Re : ERCP procedure for Rebeca Soares Dear Ms. Chairez This procedure was performed on May. My impressions and recommendations are as follows: Impressions : - Minor papilla not seen. - The entire main bile duct was severely dilated, with a stone causing an obstruction. - The entire main bile duct was dilated, with a stone causing an obstruction. - Choledocholithiasis was found. Partial removal was accomplished with balloon extraction; a stent was inserted. - A pancreatic sphincterotomy was performed. - The biliary tree was swept and debris, sludge and pus were found. - The lower third of the main bile duct was successfully dilated. - One temporary stent was placed into the common bile duct. - The major papilla appeared normal. - Choledocholithiasis with acute cholecystitis and with an obstruction was found. Partial removal was accomplished with biliary sphincterotomy; a stent was inserted. Recommendations : - Clear liquid diet today. My findings are described in the full procedure note, which is enclosed. If I can be of further assistance, please feel free to contact me at . Sincerely, Spike Lundberg DO 05/20/2021 6:53:51 PM This report has been signed electronically.
--- NOTE | 2021-05-20 18:54 | OP.ERCP_ITS ---
Patient Name: Rebeca Soares Procedure Date: 05/20/2021 5:18 PM Date of : 1940 Age: 80 Procedure: ERCP Indications: Acute pancreatitis Providers: Spike Lundberg DO Medicines: See the Anesthesia note for documentation of the administered medications Patient Profile: This is an 80 year old female. Refer to note in patient chart for documentation of history and physical. Patient has symptoms of acute epigastric abdominal pain. Complications: No immediate complications. Procedure: Pre-Anesthesia Assessment: - Prior to the procedure, a History and Physical was performed, and patient medications and allergies were reviewed. The patient is competent. The risks and benefits of the procedure and the sedation options and risks were discussed with the patient. All questions were answered and informed consent was obtained. Patient identification and proposed procedure were verified by the physician in the pre-procedure area. Mental Status Examination: alert and oriented. Airway Examination: normal oropharyngeal airway and neck mobility. Respiratory Examination: clear to auscultation. CV Examination: normal. Prophylactic Antibiotics: The patient does not require prophylactic antibiotics. Prior Anticoagulants: The patient has taken no previous 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 or antiplatelet agents. ASA Grade Assessment: II - A patient with mild systemic disease. After reviewing the risks and benefits, the patient was deemed in satisfactory condition to undergo the procedure. The anesthesia plan was to use moderate sedation / analgesia (conscious sedation). Immediately prior to administration of medications, the patient was re-assessed for adequacy to receive sedatives. The heart rate, respiratory rate, oxygen saturations, blood pressure, adequacy of pulmonary ventilation, and response to care were monitored throughout the procedure. The physical status of the patient was re-assessed after the procedure. After obtaining informed consent, the scope was passed under direct vision. Throughout the procedure, the patient's blood pressure, pulse, and oxygen saturations were monitored continuously. The [id number] endoscope was introduced through the mouth, and advanced to the duodenum and used to inject contrast into the bile duct and ventral pancreatic duct. The ERCP was accomplished without difficulty. The patient tolerated the procedure well. Moderate Sedation: Moderate (conscious) sedation was administered by the endoscopy nurse and supervised by the endoscopist. The patient's oxygen saturation, heart rate, blood pressure and response to care were monitored. Total physician intraservice time was 15 minutes. Scope In: 5:40:18 PM Scope Out: 6:32:13 PM Total Procedure Duration Time 0 hours 51 minutes 55 seconds Findings: The mammography supervisor film was normal. The scope was advanced to a normal major papilla in the descending duodenum. Examination of the pharynx, larynx and associated structures, and upper GI tract was normal. The minor papilla was not seen. The esophagus was successfully intubated under direct vision. The scope was advanced to a normal major papilla in the descending duodenum without detailed examination of the pharynx, larynx and associated structures, and upper GI tract. The upper GI tract was grossly normal. The bile duct was deeply cannulated with the short-nosed traction sphincterotome. Contrast was injected. I personally interpreted the bile duct images. There was appropriate flow of contrast through the ducts. Image quality was adequate. Contrast extended to the entire biliary tree. The main bile duct was severely dilated and diffusely dilated, with a stone causing an obstruction. The largest diameter was 17 mm. The lower third of the main bile duct contained multiple stones, the largest of which was 6 mm in diameter. The main bile duct was dilated, with a stone causing an obstruction. A 0.035 inch x 260 cm angled Hydra Jagwire was passed into the ventral pancreatic duct. A 5 mm ventral pancreatic sphincterotomy was made with a braided traction (standard) sphincterotome using ERBE electrocautery. There was no post-sphincterotomy bleeding. To discover objects, the biliary tree was swept with a 15 mm balloon starting at the bifurcation. Many stones were removed. All stones remained. Debris was swept from the duct. Sludge was swept from the duct. Pus was swept from the duct. Dilation of the lower third of the main bile duct with a 6-7-8 mm balloon (to a maximum balloon size of 8 mm) dilator resulted in 90 percent obliteration of the waist. One 10 Fr by 12 cm temporary stent with a single external flap and two internal flaps was placed 5 cm into the common bile duct. Bile flowed through the stent. The stent was in good position. Impression: - Minor papilla not seen. - The entire main bile duct was severely dilated, with a stone causing an obstruction. - The entire main bile duct was dilated, with a stone causing an obstruction. - Choledocholithiasis was found. Partial removal was accomplished with balloon extraction; a stent was inserted. - A pancreatic sphincterotomy was performed. - The biliary tree was swept and debris, sludge and pus were found. - The lower third of the main bile duct was successfully dilated. - One temporary stent was placed into the common bile duct. - The major papilla appeared normal. - Choledocholithiasis with acute cholecystitis and with an obstruction was found. Partial removal was accomplished with biliary sphincterotomy; a stent was inserted. Recommendation: - Clear liquid diet today. Procedure Code(s): --- Professional --- 52498, Endoscopic retrograde cholangiopancreatography (ERCP); with placement of endoscopic stent into biliary or pancreatic duct, including pre- and post-dilation and guide wire passage, when performed, including sphincterotomy, when performed, each stent 45655, Endoscopic retrograde cholangiopancreatography (ERCP); with removal of calculi/debris from biliary/pancreatic duct(s) 43665, 59, Endoscopic retrograde cholangiopancreatography (ERCP); with sphincterotomy/papillotomy 17483, 59, Moderate sedation services provided by the same physician or other qualified health child care associate teacher performing the diagnostic or therapeutic service that the sedation supports, requiring the presence of an independent trained observer to assist in the monitoring of the patient's level of consciousness and physiological status; initial 15 minutes of intraservice time, patient age 5 years or older CPT copyright 2017 [employer]. All rights reserved. The codes documented in this report are preliminary and upon donor relations manager review may be revised to meet current compliance requirements. Spike Lundberg DO 05/20/2021 6:53:51 PM This report has been signed electronically. Number of Addenda: 0 Note Initiated On: 05/20/2021 5:18 PM
[2021-05-20] MEDS: Ondansetron 4 MG/2 ML Vial IV (20:55)
[2021-05-21 00:30] VITALS: BP 169/63; PULSE 54; RESP 16; TEMP 36.3; O2SAT 98
[2021-05-21] MEDS: 0.9% Normal Saline 1,000 ML 200 ML IV ×4 (00:40→16:40)
[2021-05-21 03:00] VITALS: BP 180/78; PULSE 53; PULSE 56; RESP 18; TEMP 36.4; O2SAT 97
[2021-05-21] MEDS: Acetaminophen 325 MG Tablet 650 MG PO ×2 (03:00→10:07)
[2021-05-21] MEDS: Losartan Potassium 50 MG Tablet PO (04:26)
[2021-05-21 05:53] LABS: Absolute Lymphocyte Count 0.85 X10^3/uL (0.83-4.51); Absolute Neutrophil Count 2.9 X10^3/uL (2.0-7.7); Hematocrit 38.3 % (37-47); Hemoglobin 12.5 g/dL (12.0-15.0); Lymphocyte # 0.85 X10^3/ul (0.83-4.51); Lymphocyte % 22.1 % (19-41); Mean Corp Hgb Conc 32.6 g/dL (32-36); Mean Corpuscular Hgb 31.4 pg (27.0-32.0); Mean Corpuscular Volume 96.2 fL (81-99); Monocyte# 0.08 X10^3/uL; Monocyte% 2.1 % (0-10); NRBC Flagged by Analyzer 0 % (0-5); Neutrophil # 2.92 X10^3/uL (2.7-7.7); Neutrophil % 75.8 % (47-70); Platelet Count 121 K/mm3 (150-450); RBC Distribution Width CV 12.5 % (11.6-14.6); RBC Distribution Width SD 44.8 fl (35.1-43.9); Red Blood Count 3.98 M/mm3 (4.2-5.4); White Blood Count 3.9 K/mm3 (4.4-11.0)
[2021-05-21 06:14] LABS: ALB/GLOB Ratio 0.7 RATIO (0.9-2.4); AST(SGOT) 64 U/L (15-37); Alanine Aminotransfer ALT/SGPT 47 U/L (13-56); Albumin, Serum 2.6 g/dL (3.2-5.0); Alkaline Phosphatase 96 U/L (45-117); Anion Gap 7 (5-15); BUN 12 mg/dL (7-18); BUN/Creat Ratio 17.7 RATIO (10-20); Calcium,Total 7.7 mg/dL (8.5-10.1); Chloride 110 mmol/L (98-107); Creatinine, Serum 0.68 mg/dL (0.55-1.02); EST Glomerular Filtration Rate 88 mL/min (>60); Est Glom Filt Rate - Afr Amer 107 mL/min (>60); Estimated Creatinine Clearance 52.94 ml/min; Globulin 3.9 g/dL (2.2-4.2); Glucose 139 mg/dL (74-106); Potassium 4.3 mmol/L (3.5-5.1); Protein, Total 6.5 g/dL (6.4-8.2); Sodium Level 139 mmol/L (136-145)
[2021-05-21 08:41] VITALS: BP 155/65; PULSE 55; RESP 16; TEMP 36.3; O2SAT 96
[2021-05-21 09:35] VITALS: BP 138/63; PULSE 47; RESP 16; TEMP 36.4; O2SAT 97
[2021-05-21] MEDS: Famotidine 20 MG Tablet PO (10:07)
[2021-05-21] MEDS: Heparin Injection (Vial) 5,000 UNIT/ML VIAL 5000 UNIT SC ×2 (10:09→21:34)
--- NOTE | 2021-05-21 11:00 | PN.HOSP_ITS ---
Subjective Subjective Patient seen and examined. She is feeling much better than she did yesterday. She had the ERCP with removal of the stone in the common bile duct and had stent placement as well. Blood pressure has remained a bit elevated but she is otherwise hemodynamically stable. Objective Data Objective Data Vital Signs: Vital Signs Temp Pulse Resp BP Pulse Ox 97.4 F L 55 L 16 155/65 H 96 05/21/21 08:41 05/21/21 08:41 05/21/21 08:41 05/21/21 08:41 05/21/21 08:41 Oxygen Delivery Method Room Air Weight: 167 lb 8.821 oz Body Mass Index (BMI) 35.0 Intake & Output: Intake and Output for Last 24 Hours 05/19/21 05/20/21 05/21/21 23:59 23:59 23:59 Intake Total 2870.42 / 2970.42 1829.58 / 1829.58 Balance 2870.42 / 2970.42 1829.58 / 1829.58 Lab / Micro Data Result Diagrams: 05/21/21 05:15 05/21/21 05:15 Labs: Laboratory Results - last 24 hr 05/21/21 05:15: WBC 3.9 L, RBC 3.98 L, Hgb 12.5, Hct 38.3, MCV 96.2, MCH 31.4, MCHC 32.6, RDW Std Deviation 44.8 H, RDW Coeff of Mihir 12.5, Plt Count 121 L, MPV 12.0, Immature Gran % (Auto) 0.000, Neut % (Auto) 75.8 H, Lymph % (Auto) 22.1, [place] % (Auto) 2.1, Eos % (Auto) 0.0, Baso % (Auto) 0.0, Absolute Neuts (auto) 2.9, Absolute Lymphs (auto) 0.85, Nucleated RBC % 0 05/21/21 05:15: Sodium 139, Potassium 4.3, Chloride 110 H, Carbon Dioxide 22.0, Anion Gap 7, BUN 12, Creatinine 0.68, Estim Creat Clear Calc 52.94, Est GFR (MDRD) Af Amer 107, Est GFR (MDRD) Non-Af 88, BUN/Creatinine Ratio 17.7, Glucose 139 H, Calcium 7.7 L, Total Bilirubin 0.30, AST 64 H, ALT 47, Alkaline Phosphatase 96, Total Protein 6.5, Albumin 2.6 L, Globulin 3.9, Albumin/Globulin Ratio 0.7 L Micro: Microbiology 05/20/21 02:14 Nasal Secretion SARS-CoV-2 Antigen (Rapid) - Final Radiography Diagnostic Testing: Radiology Impression ERCP X-Ray 05/20/21 17:18 IMPRESSION: 5 fluoroscopic images of an ERCP. Please see procedure report for further details. Electronically Signed: Shaheed Puga MD at 19:11 EST Tel , Service support , Physical Exam Const alert, oriented x3 and no apparent distress General Appearance: cooperative, well kempt and well developed Orientation / Consciousness: awake, oriented to person, oriented to place and oriented to time Exam Limitations: no limitations HEENT normocephalic, head/scalp atraumatic, hearing grossly normal bilaterally, moist oral mucous membranes and oropharynx normal Head and Scalp: normocephalic Eyes PERRL, EOMs intact bilaterally and conjunctivae normal Neck nuchal rigidity, no lymphadenopathy, supple, no JVD, thyroid normal and no carotid bruits General: trachea midline Resp normal respiratory effort, no retractions, no use of accessory muscles and clear to auscultation bilaterally Auscultation: Negative for rales, rhonchi or wheezes Cardio regular rate, regular rhythm, S1 normal heart sound, S2 normal heart sound, no murmurs, no rub and no gallops GI normal to inspection, nondistended, normoactive bowel sounds, soft to palpation, non-tender and non-distended Extremity normal to inspection, full ROM and no clubbing, cyanosis or edema Peripheral Pulses: Yes pulses 2+ throughout Skin no rashes or lesions noted and no wounds Skin Narrative: chronic stasis dermatitis. General Skin Exam: no breakdown Neuro oriented x3, CN's II-XII intact bilaterally, no focal motor deficits and no sensory deficits noted Sensorium / Orientation: awake and alert Speech: speech normal Psych thought process normal and affect normal Assessment & Plan Assessment/Plan (1) Choledocholithiasis: (2) Acute pancreatitis: PLAN: #Acute pancreatitis due to choledocholithiasis * MRCP showed a common bile duct stone. Lipase was also elevated in the 1800s. * she had ERCP findings of which were partial removal of the stone in the common bile duct, with balloon extraction and insertion of stent, and pancreatic sphi ncterotomy; lower third of main bile duct was successfully dilated, and theree were findings of acute cholecystitis. * she has no elevated wbc, and liver enzymes are WNL * on clear liquid diet. * gastroentrology on board * #Type 2 diabetes mellitus:on clear liquid diet. Advance as tolerated. ON ISS. Ac brandy ELLIOTTS. #Benign essential hypertension * On losartan #Chronic lower extremity edema with stasis dermatitis: * Wound care on board * On torsemide * DVT prophylaxis: Heparin Charges/Coding Visit Charges Inpatient E&M: 38270 Subs Hosp L2
[2021-05-21 13:32] VITALS: BP 144/68; PULSE 52; RESP 18; TEMP 36.3; O2SAT 97
[2021-05-21 19:04] VITALS: BP 173/72; PULSE 50; RESP 16; TEMP 36.4; O2SAT 97
[2021-05-21] MEDS: Morphine 4 MG/ML Syringe IV (19:07)
[2021-05-21] MEDS: 0.9% Saline Lock 10 ML Syringe IV (19:07)
--- NOTE | 2021-05-21 19:33 | PN.GI_ITS ---
Subjective Subjective Patient underwent ERCP yesterday with stone removal and stent placement. She is still having signs and symptoms of pancreatitis. She has been on 200 cc of an hour of IV fluids. She has been urinating well. She is oxygenating well. She does have some nausea and abdominal pain. Objective Data Objective Data Vital Signs: Vital Signs Temp Pulse Resp BP Pulse Ox 97.6 F L 50 L 16 173/72 H 97 05/21/21 19:04 05/21/21 19:04 05/21/21 19:04 05/21/21 19:04 05/21/21 19:04 Oxygen Delivery Method Room Air Weight: 167 lb 8.821 oz Body Mass Index (BMI) 35.0 Intake & Output: Intake and Output for Last 24 Hours 05/19/21 05/20/21 05/21/21 23:59 23:59 23:59 Intake Total 2870.42 / 2970.42 4429.58 / 4429.58 Balance 2870.42 / 2970.42 4429.58 / 4429.58 Lab / Micro Data Result Diagrams: 05/21/21 05:15 05/21/21 05:15 Labs: Laboratory Results - last 24 hr 05/21/21 05:15: WBC 3.9 L, RBC 3.98 L, Hgb 12.5, Hct 38.3, MCV 96.2, MCH 31.4, MCHC 32.6, RDW Std Deviation 44.8 H, RDW Coeff of Mihir 12.5, Plt Count 121 L, MPV 12.0, Immature Gran % (Auto) 0.000, Neut % (Auto) 75.8 H, Lymph % (Auto) 22.1, [place] % (Auto) 2.1, Eos % (Auto) 0.0, Baso % (Auto) 0.0, Absolute Neuts (auto) 2.9, Absolute Lymphs (auto) 0.85, Nucleated RBC % 0 05/21/21 05:15: Sodium 139, Potassium 4.3, Chloride 110 H, Carbon Dioxide 22.0, Anion Gap 7, BUN 12, Creatinine 0.68, Estim Creat Clear Calc 52.94, Est GFR (MDRD) Af Amer 107, Est GFR (MDRD) Non-Af 88, BUN/Creatinine Ratio 17.7, Glucose 139 H, Calcium 7.7 L, Total Bilirubin 0.30, AST 64 H, ALT 47, Alkaline Phosphatase 96, Total Protein 6.5, Albumin 2.6 L, Globulin 3.9, Albumin/Globulin Ratio 0.7 L Micro: Microbiology 05/20/21 02:14 Nasal Secretion SARS-CoV-2 Antigen (Rapid) - Final Physical Exam Const alert General Appearance: cooperative Orientation / Consciousness: oriented to person HEENT hearing grossly normal bilaterally Head and Scalp: normal to inspection Face and Sinus: face symmetric Nose: external nose normal Mouth: oral and palatal mucosa normal Eyes conjunctivae normal General Eye: normal appearance of both eyes Neck full ROM General: normal visual inspection Lymph Lymphatic: no lymphadenopathy noted Chest inspection of chest normal and palpation of chest normal Chest: symmetrical chest wall rise Resp normal respiratory effort Effort and Inspection: able to speak in complete sentences Cardio regular rate GI non-distended Percussion: normal to percussion Rectal Exam: deferred Neuro Speech: speech normal Gait (Neuro): normal gait Assessment & Plan Assessment/Plan (1) Choledocholithiasis: PLAN: Choledocholithiasis status post ERCP with multiple stones removed and biliary stent placement. I will start her on ursodiol twice a day. (2) Acute pancreatitis: PLAN: She will need to continue on 200 cc an hour IV fluids. I will also give her Lasix. Continue pain medicine and antinausea medicine. Charges/Coding Visit Charges Inpatient E&M: 03184 Subs Hosp L2
[2021-05-21] MEDS: Furosemide 20 MG/2 ML VIAL 10 MG IV (20:26)
[2021-05-21] MEDS: 0.9% Normal Saline 1,000 ML 150 ML IV (22:55)
[2021-05-21] MEDS: Metoclopramide 10 MG/2 ML Vial 5 MG IV (23:41)
[2021-05-22 01:00] VITALS: BP 125/57; PULSE 52; RESP 16; TEMP 36.4; O2SAT 95
[2021-05-22 04:53] VITALS: BP 154/61; PULSE 49; RESP 16; TEMP 36.3; O2SAT 97
[2021-05-22] MEDS: Metoclopramide 10 MG/2 ML Vial 5 MG IV ×4 (05:00→23:19)
[2021-05-22] MEDS: 0.9% Normal Saline 1,000 ML 150 ML IV ×3 (05:52→21:00)
[2021-05-22 07:30] LABS: Absolute Neutrophil Count 4.8 X10^3/uL (2.0-7.7); Basophil# 0.01 X10^3/uL; Basophil% 0.1 % (0-1); Hematocrit 32.7 % (37-47); Mean Corp Hgb Conc 33.6 g/dL (32-36); Mean Corpuscular Hgb 30.7 pg (27.0-32.0); Mean Corpuscular Volume 91.3 fL (81-99); Mean Platelet Vol. 12.5 fl (6.2-12.0); Monocyte# 0.49 X10^3/uL; NRBC Flagged by Analyzer 0 % (0-5); Neutrophil # 4.84 X10^3/uL (2.7-7.7); Neutrophil % 69.5 % (47-70); Platelet Count 108 K/mm3 (150-450); RBC Distribution Width CV 12.7 % (11.6-14.6); RBC Distribution Width SD 42.9 fl (35.1-43.9); Red Blood Count 3.58 M/mm3 (4.2-5.4)
[2021-05-22] MEDS: Morphine 4 MG/ML Syringe IV (07:53)
[2021-05-22] MEDS: Furosemide 20 MG/2 ML VIAL 10 MG IV ×2 (07:54→17:31)
[2021-05-22 08:05] LABS: ALB/GLOB Ratio 0.6 RATIO (0.9-2.4); AST(SGOT) 34 U/L (15-37); Alanine Aminotransfer ALT/SGPT 30 U/L (13-56); Albumin, Serum 2.1 g/dL (3.2-5.0); Alkaline Phosphatase 71 U/L (45-117); Anion Gap 8 (5-15); BUN 13 mg/dL (7-18); Calcium,Total 7.4 mg/dL (8.5-10.1); Chloride 115 mmol/L (98-107); Creatinine, Serum 0.69 mg/dL (0.55-1.02); EST Glomerular Filtration Rate 87 mL/min (>60); Est Glom Filt Rate - Afr Amer 106 mL/min (>60); Estimated Creatinine Clearance 52.94 ml/min; Globulin 3.8 g/dL (2.2-4.2); Glucose 94 mg/dL (74-106); Potassium 4.5 mmol/L (3.5-5.1); Protein, Total 5.9 g/dL (6.4-8.2); Sodium Level 140 mmol/L (136-145)
[2021-05-22 08:59] VITALS: BP 123/72; PULSE 65; RESP 16; TEMP 36.3; O2SAT 98
[2021-05-22] MEDS: Losartan Potassium 100 MG Tablet PO (09:56)
[2021-05-22] MEDS: Heparin Injection (Vial) 5,000 UNIT/ML VIAL 5000 UNIT SC ×2 (09:57→21:20)
[2021-05-22 11:42] VITALS: BP 132/70; PULSE 65; RESP 18; TEMP 36.2; O2SAT 97
--- NOTE | 2021-05-22 11:49 | PN.HOSP_ITS ---
Subjective Subjective Patient seen and examined this morning. Her abdominal pain was much better and she had no active complaints. Review of systems otherwise negative. She was started on ursodiol by gastroenterology yesterday. Objective Data Objective Data Vital Signs: Vital Signs Temp Pulse Resp BP Pulse Ox 97.2 F L 65 18 132/70 H 97 05/22/21 11:42 05/22/21 11:42 05/22/21 11:42 05/22/21 11:42 05/22/21 11:42 Oxygen Delivery Method Room Air Weight: 167 lb 8.821 oz Body Mass Index (BMI) 35.0 Intake & Output: Intake and Output for Last 24 Hours 05/20/21 05/21/21 05/22/21 23:59 23:59 23:59 Intake Total 2870.42 / 2970.42 5539.58 / 5659.58 1840 / 1840 Balance 2870.42 / 2970.42 5539.58 / 5659.58 1840 / 1840 Lab / Micro Data Result Diagrams: 05/22/21 06:41 05/22/21 06:41 Labs: Laboratory Results - last 24 hr 05/22/21 06:41: WBC 7.0, RBC 3.58 L, Hgb 11.0 L, Hct 32.7 L, MCV 91.3 D, MCH 30.7, MCHC 33.6, RDW Std Deviation 42.9, RDW Coeff of Mihir 12.7, Plt Count 108 L, MPV 12.5 H, Immature Gran % (Auto) 0.400, Neut % (Auto) 69.5, Lymph % (Auto) 23.0, [place] % (Auto) 7.0, Eos % (Auto) 0.0, Baso % (Auto) 0.1, Absolute Neuts (auto) 4.8, Absolute Lymphs (auto) 1.60, Nucleated RBC % 0 05/22/21 06:41: Sodium 140, Potassium 4.5, Chloride 115 H, Carbon Dioxide 17.0 L , Anion Gap 8, BUN 13, Creatinine 0.69, Estim Creat Clear Calc 52.94, Est GFR (MDRD) Af Amer 106, Est GFR (MDRD) Non-Af 87, BUN/Creatinine Ratio 19.0, Glucose 94, Calcium 7.4 L, Total Bilirubin 0.30, AST 34, ALT 30, Alkaline Phosphatase 71, Total Protein 5.9 L, Albumin 2.1 L, Globulin 3.8, Albumin/Globulin Ratio 0.6 L Micro: Microbiology 05/20/21 02:14 Nasal Secretion SARS-CoV-2 Antigen (Rapid) - Final Physical Exam Const alert, oriented x3 and no apparent distress General Appearance: cooperative, well kempt and well developed Orientation / Consciousness: awake, oriented to person, oriented to place and oriented to time Exam Limitations: no limitations Nutritional Appearance: cachectic HEENT normocephalic, head/scalp atraumatic, hearing grossly normal bilaterally, moist oral mucous membranes and oropharynx normal Head and Scalp: normocephalic Eyes PERRL, EOMs intact bilaterally and conjunctivae normal Neck nuchal rigidity, no lymphadenopathy, supple, no JVD, thyroid normal and no carotid bruits General: trachea midline Resp normal respiratory effort, no retractions, no use of accessory muscles and clear to auscultation bilaterally Auscultation: Negative for rales, rhonchi or wheezes Cardio regular rate, regular rhythm, S1 normal heart sound, S2 normal heart sound, no murmurs, no rub and no gallops GI normal to inspection, nondistended, normoactive bowel sounds, soft to palpation, non-tender and non-distended Extremity normal to inspection, full ROM and no clubbing, cyanosis or edema Peripheral Pulses: Yes pulses 2+ throughout Skin no rashes or lesions noted and no wounds Skin Narrative: chronic stasis dermatitis. General Skin Exam: no breakdown Neuro oriented x3, CN's II-XII intact bilaterally, no focal motor deficits and no sensory deficits noted Sensorium / Orientation: awake and alert Speech: speech normal Psych thought process normal and affect normal Assessment & Plan Assessment/Plan (1) Choledocholithiasis: (2) Acute pancreatitis: PLAN: #Acute pancreatitis due to choledocholithiasis * MRCP showed a common bile duct stone. Lipase was also elevated in the 1800s. * she had ERCP findings of which were partial removal of the stone in the common bile duct, with balloon extraction and insertion of stent, and pancreatic sphincterotomy; lower third of main bile duct was successfully dilated, and theree were findings of acute cholecystitis. * on clear liquid diet; to advance as per gastroenterology * gastroentrology on board * Started on ursodiol yesterday by GI * #Type 2 diabetes mellitus:on clear liquid diet. Advance as tolerated. ON ISS. Accuchecks ACHS. #Benign essential hypertension * On losartan #Chronic lower extremity edema with stasis dermatitis: * Wound care on board * On torsemide * DVT prophylaxis: Heparin Charges/Coding Visit Charges Inpatient E&M: 88404 Subs Hosp L2
[2021-05-22] MEDS: Acetaminophen 325 MG Tablet 650 MG PO ×2 (11:57→17:36)
[2021-05-22] MEDS: 0.9% Saline Lock 10 ML Syringe IV ×2 (11:58→17:31)
[2021-05-22 20:40] VITALS: BP 150/63; PULSE 57; RESP 16; TEMP 36.6; O2SAT 96
[2021-05-23 02:27] VITALS: BP 155/64; PULSE 58; RESP 18; TEMP 36.6; O2SAT 98
[2021-05-23] MEDS: 0.9% Normal Saline 1,000 ML 150 ML IV ×2 (04:37→12:03)
[2021-05-23] MEDS: Metoclopramide 10 MG/2 ML Vial 5 MG IV ×3 (05:57→18:15)
[2021-05-23 07:19] LABS: Absolute Neutrophil Count 4.1 X10^3/uL (2.0-7.7); Basophil# 0.01 X10^3/uL; Basophil% 0.1 % (0-1); Eosinophil# 0.02 X10^3/uL; Eosinophils% 0.3 % (0-5); Hematocrit 35.7 % (37-47); Hemoglobin 11.6 g/dL (12.0-15.0); Lymphocyte % 35.7 % (19-41); Mean Corp Hgb Conc 32.5 g/dL (32-36); Mean Corpuscular Hgb 31.1 pg (27.0-32.0); Mean Corpuscular Volume 95.7 fL (81-99); Mean Platelet Vol. 12.7 fl (6.2-12.0); Monocyte# 0.57 X10^3/uL; Monocyte% 7.8 % (0-10); NRBC Flagged by Analyzer 0 % (0-5); Neutrophil # 4.08 X10^3/uL (2.7-7.7); Platelet Count 123 K/mm3 (150-450); RBC Distribution Width SD 46.2 fl (35.1-43.9); Red Blood Count 3.73 M/mm3 (4.2-5.4); White Blood Count 7.3 K/mm3 (4.4-11.0)
[2021-05-23 08:11] LABS: ALB/GLOB Ratio 0.6 RATIO (0.9-2.4); AST(SGOT) 32 U/L (15-37); Alanine Aminotransfer ALT/SGPT 27 U/L (13-56); Albumin, Serum 2.4 g/dL (3.2-5.0); Alkaline Phosphatase 77 U/L (45-117); Anion Gap 5 (5-15); BUN 9 mg/dL (7-18); BUN/Creat Ratio 11.9 RATIO (10-20); Calcium,Total 8.2 mg/dL (8.5-10.1); Chloride 114 mmol/L (98-107); Creatinine, Serum 0.76 mg/dL (0.55-1.02); EST Glomerular Filtration Rate 78 mL/min (>60); Est Glom Filt Rate - Afr Amer 94 mL/min (>60); Estimated Creatinine Clearance 52.94 ml/min; Globulin 3.7 g/dL (2.2-4.2); Glucose 68 mg/dL (74-106); Potassium 3.5 mmol/L (3.5-5.1); Protein, Total 6.1 g/dL (6.4-8.2); Sodium Level 143 mmol/L (136-145)
[2021-05-23] MEDS: Acetaminophen 325 MG Tablet 650 MG PO ×2 (08:34→21:15)
[2021-05-23 08:57] VITALS: BP 168/78; PULSE 58; RESP 16; TEMP 36.8; O2SAT 94
[2021-05-23] MEDS: Furosemide 20 MG/2 ML VIAL 10 MG IV (10:06)
[2021-05-23] MEDS: Losartan Potassium 100 MG Tablet PO (10:06)
[2021-05-23] MEDS: Heparin Injection (Vial) 5,000 UNIT/ML VIAL 5000 UNIT SC ×2 (10:06→21:15)
[2021-05-23] MEDS: 0.9% Saline Lock 10 ML Syringe IV ×3 (12:04→21:18)
--- NOTE | 2021-05-23 12:11 | PN.HOSP_ITS ---
Subjective Subjective Patient seen and examined. She feels better than yesterday. She feels her pain is improved significantly. Review of systems otherwise negative. Objective Data Objective Data Vital Signs: Vital Signs Temp Pulse Resp BP Pulse Ox 98.3 F 58 L 16 168/78 H 94 05/23/21 08:57 05/23/21 08:57 05/23/21 08:57 05/23/21 08:57 05/23/21 08:57 Oxygen Delivery Method Room Air Weight: 167 lb 8.821 oz Body Mass Index (BMI) 35.0 Intake & Output: Intake and Output for Last 24 Hours 05/21/21 05/22/21 05/23/21 23:59 23:59 23:59 Intake Total 5539.58 / 5659.58 3262.5 / 3262.5 2230 / 2230 Balance 5539.58 / 5659.58 3262.5 / 3262.5 2230 / 2230 Lab / Micro Data Result Diagrams: 05/23/21 06:49 05/23/21 06:49 Labs: Laboratory Results - last 24 hr 05/23/21 06:49: WBC 7.3, RBC 3.73 L, Hgb 11.6 L, Hct 35.7 L, MCV 95.7, MCH 31.1, MCHC 32.5, RDW Std Deviation 46.2 H, RDW Coeff of Mihir 13.0, Plt Count 123 L, MPV 12.7 H, Immature Gran % (Auto) 0.100, Neut % (Auto) 56.0, Lymph % (Auto) 35.7, [place] % (Auto) 7.8, Eos % (Auto) 0.3, Baso % (Auto) 0.1, Absolute Neuts (auto) 4.1, Absolute Lymphs (auto) 2.60, Nucleated RBC % 0 05/23/21 06:49: Sodium 143, Potassium 3.5, Chloride 114 H, Carbon Dioxide 24.0, Anion Gap 5, BUN 9, Creatinine 0.76, Estim Creat Clear Calc 52.94, Est GFR (MDRD) Af Amer 94, Est GFR (MDRD) Non-Af 78, BUN/Creatinine Ratio 11.9, Glucose 68 L, Calcium 8.2 L, Total Bilirubin 0.60, AST 32, ALT 27, Alkaline Phosphatase 77, Total Protein 6.1 L, Albumin 2.4 L, Globulin 3.7, Albumin/Globulin Ratio 0.6 L Micro: Microbiology 05/20/21 02:14 Nasal Secretion SARS-CoV-2 Antigen (Rapid) - Final Physical Exam Const alert, oriented x3 and no apparent distress General Appearance: cooperative, well kempt and well developed Orientation / Consciousness: awake, oriented to person, oriented to place and oriented to time Exam Limitations: no limitations Nutritional Appearance: cachectic HEENT normocephalic, head/scalp atraumatic, hearing grossly normal bilaterally, moist oral mucous membranes and oropharynx normal Head and Scalp: normocephalic Eyes PERRL, EOMs intact bilaterally and conjunctivae normal Neck nuchal rigidity, no lymphadenopathy, supple, no JVD, thyroid normal and no carotid bruits General: trachea midline Resp normal respiratory effort, no retractions, no use of accessory muscles and clear to auscultation bilaterally Auscultation: Negative for rales, rhonchi or wheezes Cardio regular rate, regular rhythm, S1 normal heart sound, S2 normal heart sound, no murmurs, no rub and no gallops GI normal to inspection, nondistended, normoactive bowel sounds, soft to palpation, non-tender and non-distended Extremity normal to inspection, full ROM and no clubbing, cyanosis or edema Peripheral Pulses: Yes pulses 2+ throughout Skin no rashes or lesions noted and no wounds Skin Narrative: chronic stasis dermatitis. General Skin Exam: no breakdown Neuro oriented x3, CN's II-XII intact bilaterally, no focal motor deficits and no sensory deficits noted Sensorium / Orientation: awake and alert Speech: speech normal Psych thought process normal and affect normal Assessment & Plan Assessment/Plan (1) Choledocholithiasis: (2) Acute pancreatitis: PLAN: #Acute pancreatitis due to choledocholithiasis * MRCP showed a common bile duct stone. Lipase was also elevated in the 1800s. * she had ERCP findings of which were partial removal of the stone in the common bile duct, with balloon extraction and insertion of stent, and pancreatic sphincterotomy; lower third of main bile duct was successfully dilated, and theree were findings of acute cholecystitis. * on clear liquid diet; to advance as per gastroenterology * gastroenterology on board * on ursodiol, as per GI * #Type 2 diabetes mellitus:on clear liquid diet. Advance as tolerated. ON ISS. Accuchecks ACHS. #Benign essential hypertension * On losartan #Chronic lower extremity edema with stasis dermatitis: * Wound care on board * On torsemide * DVT prophylaxis: Heparin Charges/Coding Visit Charges Inpatient E&M: 77133 Subs Hosp L2
--- NOTE | 2021-05-23 13:09 | EX.PCM.PN.GI ---
Subjective Subjective Patient states that she is hungry. Her abdominal pain is improved. She is not nauseous. She continues to be afebrile. Objective Data Objective Data Vital Signs: Vital Signs Temp Pulse Resp BP Pulse Ox 98.3 F 58 L 16 168/78 H 94 05/23/21 08:57 05/23/21 08:57 05/23/21 08:57 05/23/21 08:57 05/23/21 08:57 Oxygen Delivery Method Room Air Weight: 167 lb 8.821 oz Body Mass Index (BMI) 35.0 Intake & Output: Intake and Output for Last 24 Hours 05/21/21 05/22/21 05/23/21 23:59 23:59 23:59 Intake Total 5539.58 / 5659.58 3262.5 / 3262.5 2230 / 2230 Balance 5539.58 / 5659.58 3262.5 / 3262.5 2230 / 2230 Lab / Micro Data Result Diagrams: 05/23/21 06:49 05/23/21 06:49 Labs: Laboratory Results - last 24 hr 05/23/21 06:49: WBC 7.3, RBC 3.73 L, Hgb 11.6 L, Hct 35.7 L, MCV 95.7, MCH 31.1, MCHC 32.5, RDW Std Deviation 46.2 H, RDW Coeff of Mihir 13.0, Plt Count 123 L, MPV 12.7 H, Immature Gran % (Auto) 0.100, Neut % (Auto) 56.0, Lymph % (Auto) 35.7, [place] % (Auto) 7.8, Eos % (Auto) 0.3, Baso % (Auto) 0.1, Absolute Neuts (auto) 4.1, Absolute Lymphs (auto) 2.60, Nucleated RBC % 0 05/23/21 06:49: Sodium 143, Potassium 3.5, Chloride 114 H, Carbon Dioxide 24.0, Anion Gap 5, BUN 9, Creatinine 0.76, Estim Creat Clear Calc 52.94, Est GFR (MDRD) Af Amer 94, Est GFR (MDRD) Non-Af 78, BUN/Creatinine Ratio 11.9, Glucose 68 L, Calcium 8.2 L, Total Bilirubin 0.60, AST 32, ALT 27, Alkaline Phosphatase 77, Total Protein 6.1 L, Albumin 2.4 L, Globulin 3.7, Albumin/Globulin Ratio 0.6 L Micro: Microbiology 05/20/21 02:14 Nasal Secretion SARS-CoV-2 Antigen (Rapid) - Final Physical Exam Const alert General Appearance: cooperative Orientation / Consciousness: oriented to person HEENT hearing grossly normal bilaterally Head and Scalp: normal to inspection Face and Sinus: face symmetric Nose: external nose normal Mouth: oral and palatal mucosa normal Eyes conjunctivae normal General Eye: normal appearance of both eyes Neck full ROM General: normal visual inspection Lymph Lymphatic: no lymphadenopathy noted Chest inspection of chest normal and palpation of chest normal Chest: symmetrical chest wall rise Resp normal respiratory effort Effort and Inspection: able to speak in complete sentences Cardio regular rate GI non-distended Percussion: normal to percussion Rectal Exam: deferred Neuro Speech: speech normal Gait (Neuro): normal gait Assessment & Plan Assessment/Plan (1) Choledocholithiasis: PLAN: She is status post ERCP with stone removal and stent placement. She will need to have stent removed in approximately 2 to 3 months. She will need to be on ursodiol which I will start today. 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 She continues on IV fluids. She will have food introduced into her diet. If she tolerates food then she should be able to go home tomorrow Charges/Coding Visit Charges Inpatient E&M: 44500 Subs Hosp L2
[2021-05-23] MEDS: Ursodiol 250 MG Tablet PO ×2 (14:50→21:15)
[2021-05-23 17:07] VITALS: BP 151/64; PULSE 62; RESP 16; TEMP 36.4; O2SAT 99
[2021-05-23 19:44] VITALS: BP 136/58; PULSE 68; RESP 18; TEMP 36.6; O2SAT 96
[2021-05-24 02:33] VITALS: BP 137/64; PULSE 64; RESP 18; TEMP 36.4; O2SAT 95
[2021-05-24 05:34] VITALS: BP 144/68; PULSE 63; RESP 18; TEMP 36.6; O2SAT 95
[2021-05-24] MEDS: Metoclopramide 10 MG/2 ML Vial 5 MG IV (05:37)
[2021-05-24] MEDS: Furosemide 20 MG/2 ML VIAL 10 MG IV (05:37)
[2021-05-24 07:14] LABS: Absolute Lymphocyte Count 2.06 X10^3/uL (0.83-4.51); Absolute Neutrophil Count 3.2 X10^3/uL (2.0-7.7); Basophil# 0.02 X10^3/uL; Basophil% 0.3 % (0-1); Eosinophil# 0.04 X10^3/uL; Eosinophils% 0.7 % (0-5); Hematocrit 40.3 % (37-47); Hemoglobin 13.1 g/dL (12.0-15.0); Lymphocyte # 2.06 X10^3/ul (0.83-4.51); Lymphocyte % 35.5 % (19-41); Mean Corp Hgb Conc 32.5 g/dL (32-36); Mean Corpuscular Hgb 30.6 pg (27.0-32.0); Mean Corpuscular Volume 94.2 fL (81-99); Mean Platelet Vol. 12.3 fl (6.2-12.0); Monocyte# 0.43 X10^3/uL; Monocyte% 7.4 % (0-10); NRBC Flagged by Analyzer 0 % (0-5); Neutrophil # 3.23 X10^3/uL (2.7-7.7); Neutrophil % 55.8 % (47-70); POSITIVE MORPHOLOGY YES; Platelet Count 162 K/mm3 (150-450); RBC Distribution Width SD 44.5 fl (35.1-43.9); Red Blood Count 4.28 M/mm3 (4.2-5.4); White Blood Count 5.8 K/mm3 (4.4-11.0)
[2021-05-24 07:19] LABS: Differential Indicated SCAN CRITERIA MET
[2021-05-24 07:42] LABS: ALB/GLOB Ratio 0.7 RATIO (0.9-2.4); AST(SGOT) 36 U/L (15-37); Alanine Aminotransfer ALT/SGPT 33 U/L (13-56); Albumin, Serum 2.7 g/dL (3.2-5.0); Alkaline Phosphatase 87 U/L (45-117); Anion Gap 6 (5-15); BUN 7 mg/dL (7-18); BUN/Creat Ratio 8.8 RATIO (10-20); Calcium,Total 8.5 mg/dL (8.5-10.1); Chloride 111 mmol/L (98-107); EST Glomerular Filtration Rate 73 mL/min (>60); Est Glom Filt Rate - Afr Amer 89 mL/min (>60); Estimated Creatinine Clearance 66.17 ml/min; Globulin 4.1 g/dL (2.2-4.2); Glucose 73 mg/dL (74-106); Potassium 3.6 mmol/L (3.5-5.1); Protein, Total 6.8 g/dL (6.4-8.2); Sodium Level 141 mmol/L (136-145)
[2021-05-24] MEDS: Heparin Injection (Vial) 5,000 UNIT/ML VIAL 5000 UNIT SC (10:04)
[2021-05-24] MEDS: Losartan Potassium 100 MG Tablet PO (10:04)
[2021-05-24] MEDS: Ursodiol 250 MG Tablet PO (10:04)
--- NOTE | 2021-05-24 11:13 | PCM.DC ---
Discharge Instructions Diet Discharge Diet: Low fat / Low cholesterol, 1800 Calorie Control Diet and 2000 mg Sodium Diet Activity Discharge Activity: Return to Normal Activity Follow Up Care Test Results: Test results from this visit will be discussed in further detail at your follow-up appointment, if applicable. Discharge Plan Admission Admit Date/Time: 05/20/21 04:44 Primary Reason for Your Visit: Acute pancreatitis Attending Provider: Alcira Vanegas Primary Care Provider: Lesly Chairez NP Instructions Additional Instructions / Restrictions: Continue on your medications. Follow-up with Dr. Lundberg in the outpatient in 2 weeks. Discharge Orders/Prescriptions Prescriptions: New ursodiol 250 mg Tablet 250 mg PO BID 30 Days Qty: 60 RF: 0 colestipol [Colestid] 1 gram tablet 2 g PO DAILY 30 Days Qty: 60 RF: 0 famotidine 20 mg tablet 20 mg PO BID 30 Days Qty: 60 RF: 0 Continued potassium chloride 10 mEq capsule, extended release 10 meq PO PRN PRN (Reason: HYPOKALEMIA) RF: 0 irbesartan 75 MG tablet 75 mg PO DAILY RF: 0 torsemide 20 mg tablet 10 mg DAILY PRN PRN (Reason: Edema) RF: 0 Discontinued famotidine 20 mg tablet 20 mg PO BID RF: 0 Referrals / Follow Up: Lesly Chairez NP, [employer]UP[employer] PROFESSIONAL-C [Primary Care Provider] - Within 2 Weeks Spike Lundberg DO [STAFF PHYSICIAN] - Within 2 Weeks Disposition Disposition (needs filled in before D/C Order can be placed): Home, Self Care
--- NOTE | 2021-05-24 11:37 | DS.PCM_ITS ---
Providers Date of Admission: 05/20/21 Date of Discharge: 05/24/21 Primary Care Physician: GABRIELA Barbosa Consultations 05/20/21 05:20 Consult: Gastroenterology Routine Consulting Provider: [facility] Reason for Consult: recurrent pancreatitis EMERGENT Consult: No MD Notified: Yes Date Notified: 05/20/21 Time Notified: 04:46 Method of Notification: Verbal Method of Consult:: In-Person Comments:: notified via phone Reason For Visit: RECURRENT PANCREATITIS Diagnosis Discharge Diagnosis (1) Choledocholithiasis: Status: Acute Code(s): K80.50 - Calculus of bile duct without cholangitis or cholecystitis without obstruction (2) Acute pancreatitis: Status: Acute Code(s): K85.90 - Acute pancreatitis without necrosis or infection, unspecified Medications at Discharge Home Medications irbesartan 75 mg PO DAILY 01/15/17 potassium chloride 10 mEq capsule,extended release 10 meq PO PRN PRN 10/11/19 torsemide 10 mg DAILY PRN PRN 12/21/20 colestipol [Colestid] 2 g PO DAILY 30 Days #60 tab 05/24/21 famotidine 20 mg PO BID 30 Days #60 tab 05/24/21 ursodiol 250 mg PO BID 30 Days #60 tab 05/24/21 Hospital Course Operations None Procedures None Summary of Care Provided Minutes Spent on Discharge: 50 Hospital Course: 80-year-old female with past medical history of recurrent idiopathic pancreatitis who presented with abdominal pain. CT of the abdomen and pelvis showed safe count dilatation of the common bile duct up to 1.6 cm in dilatation of the pancreatic duct up to 5 5 mm. Patient had an MRCP done showed filling defect approximately 6 mm in diameter in the distal common bile duct with pancreatic ductal dilatation. Gastroenterology was consulted Patient underwent ERCP that showed severe dilatation of the entire main bile duct with a stone causing obstruction. Choledocholithiasis was found. Partial removal was accomplished with balloon extraction and stent was placed. The pancreatic sphincterotomy was performed. The biliary tree was swept and debris, sludge and past were found. The lower third of the main biliary duct was successfully dilated, a temporary stent was placed into the common bile duct. Patient was then managed in the [facility] floor with titration of her diet towards a regular consistency. Patient tolerated this. She was discharged on ursodiol and colestipol. She will follow-up with gastroenterology in 2 weeks. Physical Exam Narrative Physical exam: General: Alert, Oriented x3, Cooperative, No apparent distress, Well developed HEENT: Atraumatic Oral: Moist Mucosa Neck: Supple Lungs: Clear to auscultation Cardiovascular: HS I+II, regular, no murmurs Abdomen: Bowel Sounds Present, Soft, Non Tender Extremities: Bilateral leg edema +2 Weight / BMI Weight Weight: 76 kg Body Mass Index (BMI) 35.0 ABG / Lab / Microbiology Data Result Diagrams: 05/24/21 07:06 05/24/21 07:06 Laboratory: Laboratory Results - last 24 hr 05/24/21 07:06: WBC 5.8, RBC 4.28, Hgb 13.1, Hct 40.3, MCV 94.2, MCH 30.6, MCHC 32.5, RDW Std Deviation 44.5 H, RDW Coeff of Mihir 13.0, Plt Count 162, MPV 12.3 H , Immature Gran % (Auto) 0.300, Neut % (Auto) 55.8, Lymph % (Auto) 35.5, [place] % (Auto) 7.4, Eos % (Auto) 0.7, Baso % (Auto) 0.3, Absolute Neuts (auto) 3.2, Absolute Lymphs (auto) 2.06, Nucleated RBC % 0 05/24/21 07:06: Sodium 141, Potassium 3.6, Chloride 111 H, Carbon Dioxide 24.0, Anion Gap 6, BUN 7, Creatinine 0.80, Estim Creat Clear Calc 66.17, Est GFR (MDRD) Af Amer 89, Est GFR (MDRD) Non-Af 73, BUN/Creatinine Ratio 8.8 L, Glucose 73 L, Calcium 8.5, Total Bilirubin 0.70, AST 36, ALT 33, Alkaline Phosphatase 87, Total Protein 6.8, Albumin 2.7 L, Globulin 4.1, Albumin/Globulin Ratio 0.7 L Microbiology: Microbiology 05/20/21 02:14 Nasal Secretion SARS-CoV-2 Antigen (Rapid) - Final D/C Instructions Discharge Diet: Low fat / Low cholesterol, 1800 Calorie Control Diet and 2000 mg Sodium Diet Meaningful Use Info Meaningful Use Diagnoses (Choose all that apply): None applicable Discharge Plan Admission Admit Date/Time: 05/20/21 04:44 Primary Reason for Your Visit: Acute pancreatitis Attending Provider: Alcira Vanegas Primary Care Provider: Lesly Chairez NP Instructions Additional Instructions / Restrictions: Continue on your medications. Follow-up with Dr. Lundberg in the outpatient in 2 weeks. Discharge Orders/Prescriptions Prescriptions: New ursodiol 250 mg Tablet 250 mg PO BID 30 Days Qty: 60 RF: 0 colestipol [Colestid] 1 gram tablet 2 g PO DAILY 30 Days Qty: 60 RF: 0 famotidine 20 mg tablet 20 mg PO BID 30 Days Qty: 60 RF: 0 Continued potassium chloride 10 mEq capsule, extended release 10 meq PO PRN PRN (Reason: HYPOKALEMIA) RF: 0 irbesartan 75 MG tablet 75 mg PO DAILY RF: 0 torsemide 20 mg tablet 10 mg DAILY PRN PRN (Reason: Edema) RF: 0 Discontinued famotidine 20 mg tablet 20 mg PO BID RF: 0 Referrals / Follow Up: Spike Lundberg DO [STAFF PHYSICIAN] - Within 2 Weeks Lesly Chairez NP, [employer] [Primary Care Provider] - Within 2 Weeks Disposition Disposition (needs filled in before D/C Order can be placed): Home, Self Care Charges/Coding Visit Charges Inpatient E&M: 75448 Subs Hosp L2
[2021-05-24 13:18] VITALS: BP 161/70; PULSE 60; RESP 18; TEMP 36.7; O2SAT 99
[2021-05-24 15:30] VITALS: BP 161/70; PULSE 60; RESP 18; TEMP 36.7; O2SAT 99
== END 2021-05-24 16:40 | disposition home or self-care (01) | DRG 439 ==
LOC: ED 05-20 04:39 → MS2 05-20 04:45
PROVIDERS: Internal Medicine Gastroenterology; Student in an Organized Health Care Education/Training Program; Admitting Provider Internal Medicine; Emergency Provider Emergency Medicine; PCP Nurse Practitioner; Visit Provider Internal Medicine
PROC: 0FC98ZZ Extirpation of Matter from Common Bile Duct, Via Natural or Artificial Opening Endoscopic (ICD-10-PCS; CPT 43260; principal; 2021-05-20 14:45)
DX: K85.90 Acute pancreatitis without necrosis or infection, unspecified (principal); K80.43 Calculus of bile duct with acute cholecystitis with obstruction; I25.10 Atherosclerotic heart disease of native coronary artery without angina pectoris; I10 Essential (primary) hypertension; E11.9 Type 2 diabetes mellitus without complications; I87.2 Venous insufficiency (chronic) (peripheral); Z80.0 Family history of malignant neoplasm of digestive organs; Z86.718 Personal history of other venous thrombosis and embolism; E78.00 Pure hypercholesterolemia, unspecified; I89.0 Lymphedema, not elsewhere classified
CPT/HCPCS: 36415; 74177; 74181; 74328; 76000; 80048; 80053; 80076; 81001; 83690; 85025; 87426; 93005; 97162; 97166; 97802; 99285; J7030; Q9967; A4216; J1940; J2405

== ENCOUNTER 2021-08-16 07:10 | Day surgery (SDC) | payer MEDICARE, OTHER, SELFPAY ==
--- NOTE | 2021-08-16 07:26 | EKG12_ITS ---
Test Reason : PRE OP Blood Pressure : / mmHG Vent. Rate : 057 BPM Atrial Rate : 057 BPM P-R Int : 254 ms QRS Dur : 098 ms QT Int : 402 ms P-R-T Axes : 055 -47 004 degrees QTc Int : 391 ms Sinus bradycardia with 1st degree A-V block Left anterior fascicular block Nonspecific ST abnormality Abnormal ECG When compared with ECG of 20-MAY-2021 16:58, No significant change was found Confirmed by BHAKTI BAUTISTA, JAMAL ([id number]), newspaper editor BARBARA JACOBO ([id number]) on 08/19/2021 1:38:27 PM Referred By: Lesly Chairez Confirmed By:KRISTOPHER YA MD
--- NOTE | 2021-08-16 07:35 | HP.PCM_ITS ---
History and Physical Date of Admission: 08/16/21 BRISSA ARRIAGA, is a 80 F who presents to the office today for Presented to [facility] ED 05.20.21 for evaluation of upper abdominal pain that is sharp in nature causing nausea. History of pancreatitis. Discharged 05.24.21. Gastroenterology visit 05.20.21 MRCP showed dilated extra and int rahepatic ducts with some mild pancreatic duct dilation. However no filling defect was seen on MRCP in the bile duct. Choledocholitiasis ? s/p ERCP with stone removal and stent placement Acute pancreatitis ? secondary to choledocholitiasis as seen on choledocholitiasis. Will require ERCP. ERCP performed 05.20.21 with main bile duct severely dilated with stone causing obstruction. Choledocholitiasis found with acute cholecystitis, partial removal accomplished with temporary stent placed. Pancreatic sphincterotomy performed. Biliary tree swept with debris. Sludge and pus found. Lower third of main bile duct successfully dilated. Reports ongoing soreness RUQ which heat and Tylenol help. Soreness present with position changes and has remained the same. Has not returned to work at this [employer] because she has to bend, push and pull and this does cause more pain. Midepigastric region she gets a discomfort and mild pain which occurs periodically and will reduce intake and it will resolve. Reports a softer diet with small portions. Denies weight loss. ROS Const Constitutional: No anorexia, fatigue, fever(s), weight change or sleep problems Eyes Eyes: No change in vision ENT ENT: No abnormal hearing, difficulty swallowing, mouth lesions, tongue swelling or throat swelling Resp Respiratory: No cough or shortness of breath Cardio Cardiology: No chest pain at rest, chest pain with exertion, shortness of breath or dyspnea on exertion Gastro GI: No difficulty swallowing Genitourinary-Female: No difficulty urinating or burning urination Musc Musculoskeletal: No joint pain, joint swelling, muscle weakness or decreased muscle mass Skin Skin: No hair loss in leg, yellowing of the eye, itchy eyes, rash, skin ulcer or skin swelling Neuro Neurology: No abnormal hearing, abnormal movements, confusion, unsteady gait/balance or memory loss Psych Psychiatric: No anxiety, No confusion and No memory loss Endo Endocrine: No fatigue or weight change Aller/Imm Allergy/Immunologic: No itchy eyes, throat swelling or tongue swelling [place]/Lymp Hematologic/Lymphatic: No easy bleeding, easy bruising or enlarged lymph nodes Exam Const General: cooperative and comfortable Nutritional Appearance: average body habitus and well nourished HENMT Head: normal to inspection Ears: hearing grossly normal bilaterally Nose: external nose normal Face and sinus: normal facial exam Mouth: oral mucosae normal Throat: posterior oropharynx normal Eyes General: appearance normal, both eyes and all related structures Neck Neck: normal visual inspection Chest Chest palpation & inspection: normal inspection of the chest and normal palpation of entire chest wall Resp Effort & Inspection: normal respiratory effort Auscultation: Bilateral: Clear to Auscultation Cardio Palpation: normal PMI Rate: regular rate Rhythm: regular rhythm GI Inspection: normal to inspection Auscultation: normal bowel sounds Percussion: normal to percussion Palpation: no hepatosplenomegaly Skin General: no rashes or lesions noted Neuro General: patient alert Extrem General: normal to inspection Psych Affect: normal affect Quality Reporting Tobacco Screening ([facility] 138) Smoking Status: Never smoker Assessment and Plan Assessment and Plan (1) Choledocholithiasis: Status: Acute Plan - Dr. Spike Lundberg, DO: He is status post ERCP with stone removal, biliary stricture dilation and stent placement. We will remove her stent in approximately 6 weeks. At that time she may need a metal stent if the stricture has not improved. I will also put her on ursodiol therapy to decrease her risk of developing recurrent stones. (2) Right upper quadrant pain: Status: Acute Plan - Dr. Spike Lunbderg, DO: Right upper quadrant and left upper quadrant pain thought to be secondary to musculoskeletal pain. Recommended abdominal binder. (3) Pancreatitis: Status: Acute Qualifiers: Chronicity: acute Pancreatitis type: biliary Acute pancreatitis complication: unspecified Qualified Code(s): K85.10 - Biliary acute pancreatitis without necrosis or infection Plan - Dr. Spike Lundberg, DO: Pancreatitis was secondary to gallstone pancreatitis. She had no more episodes since undergone stone removal and stent placement. Plan Details Other Medications: New: ursodiol 250 mg PO DAILY 30 days 30 tabs 1RF I have re-examined the patient. There are no clinical changes since date of exam.
[2021-08-16 07:51] VITALS: BP 146/60; PULSE 78; RESP 17; TEMP 36.9; O2SAT 97
[2021-08-16 08:07] LABS: Bedside Glucose 94 mg/dL (74-106)
--- NOTE | 2021-08-16 08:07 | RAD_ITS ---
CLINICAL HISTORY: ERCP WITH STENT REMOVAL COMPARISON: ERCP from 05/20/2021. TECHNIQUE: 14 image(s) of ERCP performed by Physician: RJ CHRISTIANSON were submitted for evaluation. FINDINGS: 14 fluoroscopic intraprocedural images are provided for interpretation. Initial images demonstrate a biliary stent in place. Endoscopic cannulation with contrast opacification of the biliary tree. Biliary stent is successfully removed endoscopically. There is minimal residual distention of the biliary tree which is overall improved from previous study. The previously seen filling defect within the common bile duct which likely related to a stone is no longer identified. RAD/ERCP Biliary/Pancreas IMPRESSION: 14 fluoroscopic images of ERCP with endoscopic removal of the biliary stent. Please see intraoperative procedural report for further details. Electronically Signed: Pranav Crawford, at 14:54 EDT ,
[2021-08-16] MEDS: Lactated Ringers 1,000 ML 15 ML IV (08:15)
--- NOTE | 2021-08-16 08:15 | FLU_PTH ---
PATIENT: BRISSA ARRIAGA LOC: EN U#:[id number] AGE/SX: 81/F ROOM: RE08/16/[address]: Dr. Spike Lundberg DO : 1940 BED: DIS: 08/16/2021 SPEC #: [id number] RECD: 08/16/21 09:42 STATUS: NIRANJAN SNEHA #: [id number] RUBY: 08/16/21 08:[address]: Spike Lundberg DEPT: CYTOLOGY RECD BY: Shanti Ennis ENTERED: 08/16/21 10:45 SP TYPE: Fluid OTHR DR: Lesly Chairez, LEARNING OFFICER-C Tissues: A - Bile duct, NOS B - Bile duct, NOS C - Bile duct, NOS Procedures: Special Stain Group II Surgery Specimen Level IV Cytospin Fluid Cytology Other HEADER OPERATION: ERCP with stent removal PRE-OP DIAGNOSIS: Choledocholithiasis; right upper quadrant pain; pancreatitis TISSUE SUBMITTED: A - Biliary stent fluid for cytology, B - Biliary stricture brush tip, C - Biliary stricture brushings x3 slides DIAGNOSIS CYTOLOGY A. Biliary stent fluid (cytospin and cell block): Atypical ductal epithelial cells present. B. Biliary stricture brush (cell block): Atypical ductal epithelial cells present. C. Biliary stricture brushings (smears): Atypical ductal epithelial cells present. AM:hal 08/31/2021 COMMENT A reactive process is favored. However, low grade epithelial dysplasia/low grade neoplastic process cannot be entirely excluded. Clinical correlation is suggested. This case is seen I consultation with Dr. Bond of [employer] who concurs with the diagnosis. The complete consultative report is in EMR. CYTOLOGY STUDY Slides are reviewed. CYTOLOGY GROSS A - Received is 0.5 ml of yellow cloudy fluid labeled with the patient's name and and designated per the requisition as biliary stent. Submitted for cytology preparation including cell block. B - Received is a metallic endoscopic cytobrush with adherent minute fragments of landin-red tissue brush in 2 ml of clear red fluid and labeled with the patient's name and and designated per the requisition as brush tip. The material is dislodged from the brush and submitted for cytology preparation including cell block. C - Received are three smears labeled with the patient's name and designated per the requisition as biliary stricture brushings. Submitted for staining. / hal 08/16/2021 TC:? CPT: 76678 x2, 46969, 26470
--- NOTE | 2021-08-16 09:14 | OP.ERCP_ITS ---
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 Refer to note in patient chart for documentation of history and physical. Patient has symptoms of chronic dyspepsia and acute jaundice. She is status post ERCP for stone removal within the past three months. Complications: No immediate complications. Procedure: Pre-Anesthesia Assessment: - Prior to the procedure, a History and Physical was performed, and patient medications and allergies were reviewed. The patient is competent. The risks and benefits of the procedure and the sedation options and risks were discussed with the patient. All questions were answered and informed consent was obtained. Patient identification and proposed procedure were verified by the physician in the pre-procedure area. Mental Status Examination: alert and oriented. Airway Examination: normal oropharyngeal airway and neck mobility. Respiratory Examination: clear to auscultation. CV Examination: normal. Prophylactic Antibiotics: The patient does not require prophylactic antibiotics. Prior Anticoagulants: The patient has taken no previous 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 or antiplatelet agents. ASA Grade Assessment: II - A patient with mild systemic disease. After reviewing the risks and benefits, the patient was deemed in satisfactory condition to undergo the procedure. The anesthesia plan was to use moderate sedation / analgesia (conscious sedation). Immediately prior to administration of medications, the patient was re-assessed for adequacy to receive sedatives. The heart rate, respiratory rate, oxygen saturations, blood pressure, adequacy of pulmonary ventilation, and response to care were monitored throughout the procedure. The physical status of the patient was re-assessed after the procedure. After obtaining informed consent, the scope was passed under direct vision. Throughout the procedure, the patient's blood pressure, pulse, and oxygen saturations were monitored continuously. The duodenoscope was introduced through the mouth, and advanced to the duodenum and used to inject contrast into the bile duct. The ERCP was accomplished without difficulty. The patient tolerated the procedure well. Moderate Sedation: Moderate (conscious) sedation was administered by the endoscopy nurse and supervised by the endoscopist. The patient's oxygen saturation, heart rate, blood pressure and response to care were monitored. Total physician intraservice time was 15 minutes. Scope In: 8:37:18 AM Scope Out: 9:03:35 AM Total Procedure Duration Time 0 hours 26 minutes 17 seconds Findings: The door technician film was normal. The esophagus was successfully intubated under direct vision. The scope was advanced to a normal major papilla in the descending duodenum without detailed examination of the pharynx, larynx and associated structures, and upper GI tract. The upper GI tract was grossly normal. The bile duct was deeply cannulated with the short-nosed traction sphincterotome. Contrast was injected. I personally interpreted the bile duct images. There was brisk flow of contrast through the ducts. Opacification of the lower third of the main bile duct and main bile duct was successful. The maximum diameter of the ducts was 7 mm. The lower third of the main bile duct contained one stone, which was 6 mm in diameter. The upper third of the main bile duct was diffusely dilated, uncertain etiology. The largest diameter was 10 mm. A cholecystectomy had been performed. A straight Roadrunner wire was passed into the biliary tree. A 5 mm biliary sphincterotomy was made with a traction (standard) sphincterotome using ERBE electrocautery. There was no post-sphincterotomy bleeding. The biliary tree was swept with a 12 mm balloon starting at the bifurcation. Sludge was swept from the duct. Two stones were removed. All stones remained. Cells for cytology were obtained by brushing in the lower third of the main bile duct. Dilation of the common bile duct with an 8-9-10 mm balloon dilator was successful. One stent was removed from the biliary tree using a snare and sent for cytology. The stent was found to be occluded via the water column test. Impression: - The upper third of the main bile duct was dilated, uncertain etiology. - The patient has had a cholecystectomy. - Choledocholithiasis was found. Partial removal was accomplished by biliary sphincterotomy; no stent was inserted. - A biliary sphincterotomy was performed. - The biliary tree was swept. - Cells for cytology obtained in the lower third of the main duct. - Common bile duct was successfully dilated. - One stent was removed from the biliary tree. Procedure Code(s): --- Professional --- 89413, 59, Endoscopic retrograde cholangiopancreatography (ERCP); with trans-endoscopic balloon dilation of biliary/pancreatic duct(s) or of ampulla (sphincteroplasty), including sphincterotomy, when performed, each duct 45746, Endoscopic retrograde cholangiopancreatography (ERCP); with removal of foreign body(s) or stent(s) from biliary/pancreatic duct(s) 02153, Endoscopic retrograde cholangiopancreatography (ERCP); with removal of calculi/debris from biliary/pancreatic duct(s) 30673, Endoscopic catheterization of the biliary ductal system, radiological supervision and interpretation 61366, 59, Moderate sedation services provided by the same physician or other qualified health health care social worker performing the diagnostic or therapeutic service that the sedation supports, requiring the presence of an independent trained observer to assist in the monitoring of the patient's level of consciousness and physiological status; initial 15 minutes of intraservice time, patient age 5 years or older CPT copyright 2017 [employer]. All rights reserved. The codes documented in this report are preliminary and upon speech pathologist assistant review may be revised to meet current compliance requirements. Spike Lundberg DO 08/16/2021 9:13:30 AM This report has been signed electronically. Number of Addenda: 0 Note Initiated On: 08/16/2021 7:52 AM
--- NOTE | 2021-08-16 09:15 | OP.CCLET_ITS ---
08/16/2021 Lesly Villegaspopmichael, EATING DISORDER PSYCHOLOGIST [address] [place] [address] Re : ERCP procedure for Rebeca Soares Dear Ms. Chairez This procedure was performed on Monday, August 16, 2021. My impressions and recommendations are as follows: Impressions : - The upper third of the main bile duct was dilated, uncertain etiology. - The patient has had a cholecystectomy. - Choledocholithiasis was found. Partial removal was accomplished by biliary sphincterotomy; no stent was inserted. - A biliary sphincterotomy was performed. - The biliary tree was swept. - Cells for cytology obtained in the lower third of the main duct. - Common bile duct was successfully dilated. - One stent was removed from the biliary tree. Recommendations : My findings are described in the full procedure note, which is enclosed. If I can be of further assistance, please feel free to contact me at . Sincerely, Spike Lundberg DO 08/16/2021 9:13:30 AM This report has been signed electronically.
[2021-08-16 09:17] VITALS: BP 132/63; BP 146/60; PULSE 88; RESP 16; TEMP 36.2; O2SAT 100
[2021-08-16 09:30] VITALS: BP 146/60; BP 98/82; PULSE 74; RESP 16; O2SAT 100
[2021-08-16 09:45] VITALS: BP 139/69; BP 146/60; PULSE 62; RESP 16; TEMP 36.2; O2SAT 100
[2021-08-16 09:46] LABS: Bedside Glucose 101 mg/dL (74-106)
[2021-08-16 10:25] VITALS: BP 140/62; BP 146/60; PULSE 56; RESP 16; TEMP 36.5; O2SAT 97
[2021-08-16 11:44] VITALS: BP 146/60
== END 2021-08-16 23:59 | disposition home or self-care (01) ==
LOC: EN 07:11 → AC 07:13
PROVIDERS: PCP Nurse Practitioner; Referring Provider Nurse Practitioner; Visit Provider Internal Medicine Gastroenterology
PROC: (CPT 43260; principal; 2021-08-16 07:45)
DX: K80.51 Calculus of bile duct without cholangitis or cholecystitis with obstruction (principal); K83.8 Other specified diseases of biliary tract; R10.11 Right upper quadrant pain; K85.10 Biliary acute pancreatitis without necrosis or infection
CPT/HCPCS: 43275; 43264; 43277; 74330; 76000; 82962; 87426; 88108; 88161; 88305; 88313; 93005; J7120; J2405

== ENCOUNTER → 2021-10-12 | Outpatient (CLI) | payer MEDICARE, OTHER, SELFPAY ==
--- NOTE | 2021-10-12 14:39 | BI_ITS ---
MAMMOGRAPHY - BILATERAL SCREENING REASON FOR EXAM: Female, 81 years old. Routine annual screening examination. PERTINENT HISTORY: Non-contributory. TECHNIQUE: Digital bilateral breast wu (3D mammographic acquisition) in the CC and MLO projections. 2-D mediolateral oblique (MLO) and craniocaudad (CC) views of both breasts were obtained. CAD: Full Field Digital Mammography with Computer Added Detection was performed. COMPARISON: Comparison is made with prior examination of 03/22/2018 and 03/09/2017. FINDINGS: Breast Composition: There are scattered areas of fibroglandular density. There are no dominant masses or suspicious calcifications. No other significant abnormalities are identified. There has been no significant change since the prior study. BI/SCRN MAMM (CAD)W/WU BILAT IMPRESSION: Stable bilateral screening mammogram. Yearly follow-up mammogram recommended. (A) ASSESSMENT CATEGORY: BIRADS Category 1: Negative. A letter regarding these results will be sent to the patient by the facility within 30 days. Approximately 10% of breast cancers are not detected by mammography. A normal mammogram should not delay biopsy of a clinically suspicious abnormality. [id number] Electronically Signed: Sergio Perea MD at 15:43 EDT ,
--- NOTE | 2021-10-12 14:46 | BD_ITS ---
STUDY: DUAL ENERGY X-RAY ABSORPTIOMETRY / DXA REASON FOR EXAM: Female, 81 years old. Z780. The patient is postmenopausal. TECHNIQUE: Bone Mineral Density (BMD) measurements of lumbar spine and bilateral hips were obtained. COMPARISON: Comparison is made with prior study 03/22/2018. FINDINGS: Lumbar Spine (L1-L4): g/cm2 (1.102) / T-score (0.5) / Z-score (3.3) Findings are suggestive of normal bone density with a low fracture risk. Left Femur Total: g/cm2 (0.820) / T-score (-1.0) / Z-score (1.2) Left Femoral Neck: g/cm2 (0.801) / T-score (-0.4) / Z-score (2.0) Right Femur Total: g/cm2 (0.846) / T-score (-0.8) / Z-score (1.4) Right Femoral Neck: g/cm2 (0.891) / T-score (0.4) / Z-score (2.8) The T-Scores on the most recent prior examination were: Lumbar Spine (L1-L4): There has been improvement of bone density since the previous examination. Left Femur Total: which represents a worsening of 14.7%. Right Femur Total: which represents a worsening of 4.1%. BD/Dexa Bone Density Study IMPRESSION: The patient is considered normal as outlined below according to World Nico Organization (WHO) criteria with a low fracture risk. There has been worsening of bone density since the previous examination. Reference Information: The T-score is the number of standard deviations above or below the standard which is normal for young adults at their peak bone mineral density. The World Health Organization (WHO) interprets the T-scores as follows: Above -1 Normal bone density Between -1 and -2.5 Osteopenia Equal to / or below -2.5 Osteoporosis As a practical clinical guideline, osteopenia may be graded as follows: Mild -1 through -1.5 Moderate -1.6 through -2.0 Severe -2.1 through -2.4 The Z-score is the number of standard deviations above or below age-matched controls. A Z-score of less than -1.5 would be considered abnormal. References: 1. NIH Osteoporosis and Related Bone Diseases www osteo.org 2. International Society for Clinical Densitometry www iscd.org 3. National Osteoporosis Foundation www nof.org Electronically Signed: Sergio Perea MD at 13:50 EDT ,
== END | disposition home or self-care (01) ==
LOC: OPBD 14:37
PROVIDERS: PCP Nurse Practitioner; Visit Provider Nurse Practitioner
DX: Z12.31 Encounter for screening mammogram for malignant neoplasm of breast (principal); Z78.0 Asymptomatic menopausal state
CPT/HCPCS: 77063; 77067; 77080

== ENCOUNTER → 2022-03-08 | Outpatient (CLI) | payer MEDICARE, OTHER, SELFPAY ==
--- NOTE | 2022-03-08 13:09 | US_ITS ---
INDICATION: ENLARGED THYROID EXAMINATION: Ultrasound US Thyroid (eg thyroid, parathyroid, parotid) TECHNIQUE: Serrano scale and color doppler imaging was performed of the thyroid gland. COMPARISON: None. FINDINGS: RIGHT THYROID LOBE: 3.9 x 1.3 x 1.1 cm. Homogeneous echotexture with normal vascularity. Nodules: 1) 1.1 x 0.6 x 1.0 cm completely cystic anechoic nodule with smooth margins, wider than tall, no calcifications, TIRADS 1 2) 0.8 x 0.7 x 0.7 cm solid hypoechoic rim calcified nodule with smooth margins, wider than tall, TIRAD4 LEFT THYROID LOBE: 3.0 x 1.6 x 1.2 cm. Heterogeneous echotexture with normal vascularity. Nodules: 1) Posterior lateral 0.9 x 0.7 x 0.9 cm hypoechoic mixed cystic solid nodule, wider than tall, with smooth margins, and no calcifications, TIRAD3 2) lateral mid upper thyroid 0.5 x 0.3 x 0.5 cm hypoechoic solid nodule alignment with smooth margins and no calcification, TIRAD4 3) lower pole versus adjacent 3.8 x 3.0 x 2.2 cm solid hyperechoic nodule wider than tall with smooth margins and no calcifications, TIRAD3 ISTHMUS: 0.3 cm. Nodules: anterior partially exophytic 0.9 x 0.6 x 0.7 cm hypoechoic solid nodule with smooth margins, wider than tall, no calcifications, TIRAD4 US/Thyroid IMPRESSION: Bilateral multinodular thyroid. 3.8 cm left thyroid nodule versus adjacent nodule could represent mildly suspicious TIRADS 3 thyroid nodule or parathyroid adenoma. Correlate with serum calcium to suggest parathyroid adenoma. Endocrine follow-up is recommended for consideration of percutaneous FNA per ACR TIRAD criteria. Left thyroid TIRAD 3 and 4 nodules as above which are likely benign given the small size relative to age. Some lesions are less than 1 mm of the size recommended for follow- up per 2017 ACR TIRADS. Ultrasound follow-up as clinically indicated. Electronically Signed: Jose Angel Matthews MD at 3:02 EDT ,
== END | disposition home or self-care (01) ==
LOC: US 13:07
PROVIDERS: PCP Nurse Practitioner Family; Referring Provider Nurse Practitioner Family; Visit Provider Nurse Practitioner Family
DX: E04.9 Nontoxic goiter, unspecified (principal)
CPT/HCPCS: 76536

== ENCOUNTER → 2022-05-13 | Outpatient (CLI) | payer MEDICARE, OTHER, SELFPAY ==
--- NOTE | 2022-05-13 09:10 | FLU_PTH ---
PATIENT: BRISSA ARRIAGA LOC: [facility] U#:[id number] AGE/SX: 81/F ROOM: RE05/13/[address]: Dr. Jacques Lloyd MD : 1940 BED: DIS: 05/13/2022 SPEC #: [id number] RECD: 05/13/22 11:22 STATUS: NIRANJAN SNEHA #: [id number] RUBY: 05/13/22 09:[address]: Jacques Lloyd DEPT: CYTOLOGY RECD BY: Shanti Ennis ENTERED: 05/13/22 11:50 SP TYPE: Fluid OTHR DR: GABRIELA Martell Tissues: A - Thyroid gland, NOS B - Thyroid gland, NOS Procedures: Special Stain Group II Surgery Specimen Level IV Cytospin Fluid Cytology Other HEADER OPERATION: Fine needle aspiration left thyroid nodule PRE-OP DIAGNOSIS: Left thyroid nodule TISSUE SUBMITTED: A ? FNA left thyroid nodule fluid, B - FNA left thyroid nodule x4 slides DIAGNOSIS CYTOLOGY A. Fine needle aspiration, left thyroid nodule fluid (cytospin and cell block): Negative for malignant cells. Chronic inflammatory cells are present. B. Fine needle aspiration, left thyroid nodule (smears): Adequate for evaluation. Benign, consistent with benign follicular nodule (Hyden Category II). See comment. AM:hal 05/16/2022 COMMENT B. The Hyden System for thyroid diagnostic categorization was used in the evaluation of this case. The specimen is adequate for evaluation. CYTOLOGY STUDY Slides are reviewed. CYTOLOGY GROSS A - Received is 45 ml of red cloudy fluid labeled with the patient's name and and designated per the requisition as left thyroid nodule. Submitted for cytology preparation including cell block. B - Received are four smears labeled with the patient's name and designated per the requisition as left thyroid nodule. Submitted for staining. / hal 05/13/2022 TC:5 CPT: 61297 x2, 64723
== END | disposition home or self-care (01) ==
LOC: LAB 11:28
PROVIDERS: PCP Nurse Practitioner Family; Visit Provider Surgery
DX: E04.1 Nontoxic single thyroid nodule (principal)
CPT/HCPCS: 88108; 88161; 88305; 88313

== ENCOUNTER → 2022-05-18 | Outpatient (CLI) | payer MEDICARE, OTHER, SELFPAY ==
--- NOTE | 2022-05-18 14:50 | VDLE_ITS ---
Reason For Study: LEG PAIN RIGHT LEFT GSV is normal. CFV is compressible, spontaneous, competent, CFV is compressible, spontaneous, competent and demonstrates pulsatile venous flow. and demonstrates pulsatile venous flow. FV is compressible, spontaneous, competent and demonstrates pulsatile venous flow. POP V is compressible, spontaneous, competent and demonstrates pulsatile venous flow. T/P Trunk is compressible. PTV is compressible. RT PerV is compressible. RT Gastroc V is dilated and non-compressible with mixed echogenic intraluminal filling RT Varicose Veins of proximal calf are non- compressible and dilated with hypoechoic intraluminal filling. Procedure This is a venous duplex using B-mode, color flow and spectral Doppler. Exam performed in department. The exam was diagnostic. Technically difficult study due to swelling and calf edema. A preliminary report was called and/or faxed to Dr. Metz's office. VL/Venous Duplex US, Unilateral Interpretation Summary Acute deep venous thrombosis right gastrocnemius vein Superficial thrombophlebitis varicose veins of the right proximal calf Technically difficult examination secondary to swelling Patent and compressible right great saphenous vein Pulsatile venous flow noted bilaterally suggestive of proximal venous hypertens ion or obstruction. Clinical correlation would be appropriate. Ordering Physician: Ena Metz Referring Physician: Reny Live Performed By: Douglas Colunga RVT
== END | disposition home or self-care (01) ==
LOC: CVS 14:49
PROVIDERS: PCP Nurse Practitioner Family; Visit Provider Podiatrist
DX: M79.604 Pain in right leg (principal); I82.401 Acute embolism and thrombosis of unspecified deep veins of right lower extremity; I83.91 Asymptomatic varicose veins of right lower extremity; R60.0 Localized edema; I83.10 Varicose veins of unspecified lower extremity with inflammation
CPT/HCPCS: 93971

== ENCOUNTER → 2022-05-31 | Outpatient (CLI) | payer MEDICARE, OTHER, SELFPAY ==
--- NOTE | 2022-05-31 07:56 | VDLE_ITS ---
Reason For Study: LEG SWELLING RIGHT LEFT GSV is normal. CFV is compressible, spontaneous, competent, CFV is compressible, spontaneous, competent and demonstrates pulsatile venous flow. and demonstrates pulsatile venous flow. FV is compressible, spontaneous, competent and demonstrates pulsatile venous flow. POP V is compressible, spontaneous, competent and demonstrates pulsatile venous flow. T/P Trunk is compressible. PTV is compressible. RT PerV is compressible. RT Gastroc V is dilated and non-compressible with mixed echogenic intraluminal filling. Thrombus appears to begin 2-3 cm distal to vessel origin. RT Varicose Veins of proximal calf are non- compressible and dilated with hypoechoic intraluminal filling. Procedure This is a venous duplex using B-mode, color flow and spectral Doppler. Exam performed in department. The exam was diagnostic. Technically difficult study due to swelling and calf edema. A preliminary report was called and/or faxed to Jil/Sandhya. VL/Venous Duplex US, Unilateral Interpretation Summary Acute deep vein thrombosis is noted in the right gastrocnemius vein. Acute superficial vein thrombosis noted in right calf varicosities Negative for propagation Ordering Physician: Padmini Ley Referring Physician: Reny Live Performed By: Douglas Colunga RVT
== END | disposition home or self-care (01) ==
PROVIDERS: PCP Nurse Practitioner Family; Visit Provider Physician Assistant
DX: M79.89 Other specified soft tissue disorders (principal); I83.91 Asymptomatic varicose veins of right lower extremity; R00.2 Palpitations
CPT/HCPCS: 93225; 93226; 93971

== ENCOUNTER → 2022-06-20 | Outpatient (CLI) | payer MEDICARE, OTHER, SELFPAY ==
--- NOTE | 2022-06-20 09:53 | VDLE_ITS ---
Reason For Study: Swelling RIGHT LEFT GSV is normal. CFV is compressible, spontaneous, phasic, CFV is compressible, spontaneous, phasic, competent, and demonstrates normal competent and demonstrates normal augmentation. augmentation. FV is compressible, spontaneous, phasic, competent and demonstrates normal augmentation. POP V is compressible, spontaneous, phasic, competent and demonstrates normal augmentation. T/P Trunk is compressible. PTV is compressible. RT PerV is compressible. RT Gastroc V is dilated and non-compressible with mixed echogenic intraluminal filling. Thrombus appears to begin 3.70 cm distal to vessel origin. RT Varicose Veins of proximal calf are partially compressible. Procedure This is a venous duplex using B-mode, color flow and spectral Doppler. Exam performed in department. Compared to 05/31/2022. A preliminary report was called and/or faxed to Jil. VL/Venous Duplex US, Unilateral Interpretation Summary Acute deep vein thrombosis is noted in the right gastrocnemius vein. Negative for propagation Ordering Physician: Padmini Ley Referring Physician: Reny Live Performed By: Lara Johnson RVT
== END | disposition home or self-care (01) ==
LOC: CVS 09:55
PROVIDERS: PCP Nurse Practitioner Family; Referring Provider Physician Assistant; Visit Provider Physician Assistant
DX: I83.91 Asymptomatic varicose veins of right lower extremity (principal); I82.409 Acute embolism and thrombosis of unspecified deep veins of unspecified lower extremity; M79.89 Other specified soft tissue disorders
CPT/HCPCS: 93971

== ENCOUNTER → 2022-09-12 | Outpatient (CLI) | payer MEDICARE, OTHER, SELFPAY ==
--- NOTE | 2022-09-12 12:41 | VDLE_ITS ---
Reason For Study: Pain RIGHT LEFT GSV is normal. CFV is compressible, spontaneous, phasic, CFV is compressible, spontaneous, phasic, competent, and demonstrates normal competent and demonstrates normal augmentation. augmentation. FV is compressible, spontaneous, phasic, competent and demonstrates normal augmentation. POP V is compressible, spontaneous, phasic, competent and demonstrates normal augmentation. T/P Trunk is compressible. PTV is compressible. RT PerV is compressible. RT Gastroc V is DILATED and NON-COMPRESSIBLE with mixed echogenic intraluminal filling. Thrombus appears approximately 3 to 4 cm distal to origin. RT Varicose Veins of proximal calf are partially compressible. Procedure This is a venous duplex using B-mode, color flow and spectral Doppler. Exam performed in department. The exam was diagnostic. VL/Venous Duplex US, Unilateral Interpretation Summary Acute deep vein thrombosis is noted in the right gastrocnemius vein. Acute superficial vein thrombosis noted in right calf varicosities. Ordering Physician: Matt Arthur Referring Physician: Reny Live Performed By: Douglas Colunga RVT
== END | disposition home or self-care (01) ==
LOC: CVS 12:40
PROVIDERS: PCP Nurse Practitioner Family; Referring Provider Surgery Trauma Surgery; Visit Provider Surgery Trauma Surgery
DX: I87.312 Chronic venous hypertension (idiopathic) with ulcer of left lower extremity (principal)
CPT/HCPCS: 93971

== ENCOUNTER 2022-10-15 20:54 | Emergency (ER) | payer MEDICARE, OTHER, SELFPAY ==
[2022-10-15 20:56] VITALS: BP 159/54; PULSE 75; RESP 18; TEMP 36.7; O2SAT 99
--- NOTE | 2022-10-15 21:19 | ED.VIS.LOWEX ---
HPI History of Present Illness Chief Complaint: Lower Extremity Injury Informant: patient and family Narrative Narrative: Patient has longstanding history of poor venous circulation in both of her legs along with stasis dermatitis, she states both of her legs have been more swollen than usual for the past week. 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 She does not have an IVC filter, she tells me that was the plan if she had a DVT that mobilized which has not been the case so far. She states she was having pain earlier today, it is mostly in the left knee. She thinks it is due to the swelling and tightness. She states it was very hard to get around earlier today because of that pain but now it is better. She denies any new symptoms otherwise. She lives by herself, there are 2 family members here with her, she follows with Dr. Arthur with vascular for these issues. She also has torsemide that she takes along with potassium but takes it as needed; this past week since the swelling has been worse, she has taken torsemide 3 out of the last 7 days. She has not taken it today yet. 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 Back pain Cardiology follow-up encounter Cataract Cellulitis of left leg Choledocholithiasis Chronic venous hypertension (idiopathic) with inflammation of bilateral lower extremity Chronic venous hypertension (idiopathic) with ulcer of left lower extremity Chronic venous stasis dermatitis Decubitus ulcer of left buttock, stage 2 Diabetes DVT (deep venous thrombosis) Edema of both legs Essential hypertension Failure to thrive Gastric reflux Generalized weakness GERD (gastroesophageal reflux disease) GI bleed Heel spur Hiatal hernia History of bleeding ulcers history of cellulitis of leg History of echocardiogram History of edema History of hiatal hernia History of stress test History of ulceration Hx of venous thrombosis and embolism Hyperpigmentation of skin Hypertension Hypertension Kidney disease Leg swelling Lipodermatosclerosis Localized edema Loss of consciousness Nausea Nodular goiter 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 Non-smoker Obesity Osteoarthritis Osteoporosis Palpitations Peripheral arterial disease Positional vertigo Post-menopausal Post-phlebitic dermatosis of both lower extremities Pressure ulcer of right buttock, stage 3 Pure hypercholesterolemia Shortness of breath on exertion Sludge in gallbladder Ulcer Venous stasis ulcer Wears dentures Home Medications irbesartan 75 mg tablet 75 mg PO DAILY blood pressure 01/15/17 [History Last Taken 08/16/21] potassium chloride 10 mEq capsule,extended release 10 meq PO PRN PRN HYPOKALEMIA 10/11/19 [History Last Taken 12/21/20] torsemide 20 mg tablet 10 mg DAILY PRN PRN Edema 12/21/20 [History Last Taken 12/21/20] famotidine 20 mg tablet 20 mg PO BID 30 days #60 tabs 05/24/21 [Rx Last Taken Unknown] meclizine 25 mg tablet 25 mg PO DAILY PRN Vertigo 08/12/21 [History Last Taken Unknown] ursodiol 250 mg tablet 250 mg PO DAILY 30 days #30 tabs 04/14/22 [Rx Last Taken Unknown] Allergy/AdvReac Type Severity Reaction Status Date / Time cefdinir Allergy Other Verified 10/15/22 20:58 cephalexin Allergy Other Verified 10/15/22 20:58 ezetimibe [From Zetia] Allergy Itching Verified 10/15/22 20:58 lisinopril Allergy cough Verified 10/15/22 20:58 neomycin [Neomycin] Allergy gets in Verified 10/15/22 20:58 blood stream and pass out neomycin sulfate Allergy Itching Verified 10/15/22 20:58 [From Neosporin ([id number])] polymyxin B [Polymyxin B] Allergy Unknown Verified 10/15/22 20:58 Sulfa (Sulfonamide Allergy Unknown Verified 10/15/22 20:58 Antibiotics) tetracycline [Tetracycline] Allergy Itching Verified 10/15/22 20:58 adhesive tape AdvReac Severe pulls Verified 10/15/22 20:58 skin atorvastatin calcium AdvReac Pain in Verified 10/15/22 20:58 [From Lipitor] joints, muscle damage Family History Mother CAD (coronary artery disease) Myocardial infarction Son Hypertension Brother Aortic aneurysm Father Diabetes Heart disease Other Arthritis Bleeding disorder Blood clot in vein Bowel disease H/O ulcer disease Osteoporosis Severe allergy Surgical History H/O dilation and curettage history excision heel spur right foot History of cataract surgery History of cholecystectomy History of ERCP History of hernia repair History of left heart catheterization History of tubal ligation Lipoma Rectal fistula Social History household members: none housing: house current occupational status: employed Smoking Status: Never smoker alcohol intake: never substance use type: does not use caffeine: Yes Type: coffee Number of servings: 1 what type of physical activity do you participate in: none seatbelt use: always do you feel safe at home: Yes ROS ROS ED Constitutional Constitutional ED: Denies chills or fever(s) Cardiovascular Cardiovascular: Reports leg edema Musculoskeletal Musculoskeletal: Reports extremity pain; Denies neck pain Integumentary Denies Abrasions, rash or wounds Neurologic Neurologic: Denies paresthesias or weakness EXAM Physical Exam Const Vital Signs: 10/15/22 20:56 Temperature 98.1 F Temperature Source Temporal Pulse Rate 75 Respiratory Rate 18 Blood Pressure 159/54 H Blood Pressure Mean 89 Pulse Ox 99 Oxygen Delivery Method Room Air Positive well nourished and well developed General Appearance ED: well developed and NAD Neck full ROM and supple Back/Spine normal ROM and normal to inspection Extremity Extremity Narrative: Significant edema that appears symmetric to both lower extremities to the knees. Shiny blanching erythema both lower legs distally just above the ankles, symmetric, consistent with chronic stasis dermatitis, and without significant tenderness or subcutaneous emphysema. No lesions that appear to be infected. No calf tenderness. No palpable cords. Is able to range the knee, limited only at extreme flexion, seems more limited due to the edema and heaviness of her legs than she does pain, ligaments are stable, no palpable effusion but limited due to the amount of edema in her legs and/or obesity. Neuro oriented x3, no focal motor deficits and no sensory deficits noted Sensorium / Orientation: alert Psych mental status grossly normal and thought process normal Skin no wounds Rashes: no rashes MDM MDM MDM Narrative Medical decision making narrative: Patient presents on Monday night when venous ultrasound is not available. I think obtaining this is reasonable to reevaluate her clots. I think she can obtain it tomorrow when they are here between 9-, we wrote her for an outpatient ultrasound of both lower extremities to reevaluate her clots, and then she should follow-up with Dr. Arthur as an outpatient. I also recommend taking her diuretic every day in order to help get the fluid off. I offered several different options here. I offered admitting her to help diurese if she felt that she was in too much pain or too swollen to get around on her own at home but she declines that. I offered to do some labs to check her potassium level and her renal function, however she declined that in addition to a dose of diuretic here because they have a [id number] home, and she would prefer to drive home with her family and just take her torsemide 10 mg when she gets home so that she does not take the risk of being out when she needs to urinate which is usually an hour after taking the pill, and that way since it is after 9 PM, she is not up all night. She basically does not want any more delays since we cannot do the ultrasound here which I think is reasonable. We discussed reasons to return, otherwise following up after the weekend and taking her diuretic. Discussed at length with she and family they are comfortable with that plan. Discharge Plan Triage Chief Complaint: Lower Extremity Injury ED Provider: Momo Nuñez Dx/Rx/DC Orders Clinical Impression: Bilateral lower extremity edema, Chronic venous stasis dermatitis Prescriptions: No Action potassium chloride 10 mEq capsule, extended release 10 meq PO PRN PRN (Reason: HYPOKALEMIA) Label Comments: 1 tab when takes diuretic ursodiol 250 mg tablet 250 mg PO DAILY 30 Days Qty: 30 11RF irbesartan 75 MG tablet 75 mg PO DAILY torsemide 20 mg tablet 10 mg DAILY PRN PRN (Reason: Edema) famotidine 20 mg tablet 20 mg PO BID 30 Days Qty: 60 0RF meclizine 25 mg Tablet 25 mg PO DAILY PRN (Reason: Vertigo) Other Ambulatory Orders: Venous Duplex US - Jasson Extrem (Stat) Facility: [facility] - Location: [facility] Ordered By: Dr. Momo Nuñez Primary Care Provider: Reny Live Referrals: Matt Arthur MD [Med Staff - Active Staff] - 3-5 Days Reny Live NP-C [Primary Care Provider] - Disposition Disposition: Home, Self Care
[2022-10-15 21:23] VITALS: BMI 39.3
== END 2022-10-15 21:42 | disposition home or self-care (01) ==
PROVIDERS: Emergency Provider Emergency Medicine; PCP Nurse Practitioner Family; Visit Provider Emergency Medicine
DX: R60.0 Localized edema (principal); E11.9 Type 2 diabetes mellitus without complications; I25.10 Atherosclerotic heart disease of native coronary artery without angina pectoris; I10 Essential (primary) hypertension; I87.8 Other specified disorders of veins; E78.00 Pure hypercholesterolemia, unspecified; Z86.718 Personal history of other venous thrombosis and embolism
CPT/HCPCS: 99282

== ENCOUNTER → 2022-10-16 | Outpatient (CLI) | payer MEDICARE, OTHER, SELFPAY ==
--- NOTE | 2022-10-16 10:46 | VDLE_ITS ---
Reason For Study: BILATERAL LEG SWELLING RIGHT LEFT GSV is normal. GSV is normal. CFV is compressible, spontaneous, phasic, CFV is compressible, spontaneous, phasic, competent and demonstrates normal competent, and demonstrates normal augmentation. augmentation. FV is compressible, spontaneous, phasic, FV is compressible, spontaneous, phasic, competent and demonstrates normal competent and demonstrates normal augmentation. augmentation. POP V is compressible, spontaneous, phasic, POP V is compressible, spontaneous, phasic, competent and demonstrates normal competent and demonstrates normal augmentation. augmentation. T/P Trunk is compressible. T/P Trunk is compressible. PTV is compressible. PTV is compressible. PerV not visualized well, appear compressible PerV not visualized well, appear compressible with low flow. with low flow. Procedure This is a venous duplex using B-mode, color flow and spectral Doppler. Exam performed in department. The study was technically difficult. Images # 32, 33 & 34 are of the LT PERV. VL/Venous Duplex US - Jasson Extrem Interpretation Summary Deep veins of the bilateral lower extremities are patent and compressible segme ntally. There is no evidence of bilateral lower extremity deep vein thrombosis. The bilateral great saphenous veins appear patent and compressible segmentally. Limited study below knee bilateral Ordering Physician: Momo Nuñez Referring Physician: Reny Live Performed By: Joaquina Flores, COMFORTCS, RVT
== END | disposition home or self-care (01) ==
PROVIDERS: PCP Nurse Practitioner Family; Referring Provider Emergency Medicine; Visit Provider Emergency Medicine
DX: M79.89 Other specified soft tissue disorders (principal)
CPT/HCPCS: 93970

== ENCOUNTER → 2022-10-25 | Outpatient (CLI) | payer MEDICARE, OTHER, SELFPAY ==
--- NOTE | 2022-10-25 09:43 | VDLE_ITS ---
Reason For Study: Bilateral lower extremity edema RIGHT LEFT GSV is normal. GSV is partially compressible with CFV is compressible, spontaneous, phasic, intraluminal echoes. competent and demonstrates normal CFV is compressible, spontaneous, phasic, augmentation. competent, and demonstrates normal POP V is compressible, phasic, and augmentation. INCOMPETENT for greater than 1.0 second. FV is compressible, spontaneous, phasic, T/P Trunk is compressible. competent and demonstrates normal PTV is compressible. augmentation. RT PerV is compressible. POP V is compressible, spontaneous and Acute deep vein thrombosis is noted in the phasic. Right Gastrocnemius vein. It is dilated and T/P Trunk is compressible. NONCOMPRESSIBLE. PTV is compressible. Procedure LT PerV is compressible. This is a venous duplex using B-mode, color Acute deep vein thrombosis is noted in the flow and spectral Doppler. Left Gastrocnemius vein. It is dilated and Exam performed in department. NONCOMPRESSIBLE. The exam was diagnostic. A preliminary report was called and/or faxed to Kari MAGAÑA. VL/Venous Duplex US - Jasson Extrem Interpretation Summary Acute deep vein thrombosis is noted in the right gastrocnemius vein. Acute deep vein thrombosis is noted in the left gastrocnemius vein. Positive for reflux in the right popliteal vein Ordering Physician: Padmini Ley Referring Physician: Padmini Ley Performed By: Douglas Colunga RVT
== END | disposition home or self-care (01) ==
LOC: CVS 09:36
PROVIDERS: PCP Nurse Practitioner Family; Referring Provider Physician Assistant; Visit Provider Physician Assistant
DX: R60.0 Localized edema (principal); I82.409 Acute embolism and thrombosis of unspecified deep veins of unspecified lower extremity
CPT/HCPCS: 93970

== ENCOUNTER → 2022-11-03 | Outpatient (CLI) | payer MEDICARE, OTHER, SELFPAY ==
--- NOTE | 2022-11-03 09:54 | VDLE_ITS ---
Reason For Study: pain RIGHT LEFT GSV is normal. CFV is compressible, spontaneous, phasic, CFV is compressible, spontaneous, phasic, competent, and demonstrates normal competent and demonstrates normal augmentation. augmentation. FV is compressible, spontaneous, phasic, FV is compressible, spontaneous, phasic, competent and demonstrates normal competent and demonstrates normal augmentation. augmentation. POP V is compressible, spontaneous, phasic, POP V is compressible, phasic, and competent and demonstrates normal INCOMPETENT for greater than 1.0 second. augmentation. T/P Trunk is compressible. T/P Trunk is compressible. PTV is compressible. PTV is compressible. RT PerV is compressible. LT PerV is compressible. Acute deep vein thrombosis is noted in the Acute deep vein thrombosis is noted in the Right Gastrocnemius vein. It is dilated and Left Gastrocnemius vein. It is dilated and NONCOMPRESSIBLE. NONCOMPRESSIBLE. Procedure GSV is now dilated and noncompressible from This is a venous duplex using B-mode, color the ankle to the groin. SVT appears to be flow and spectral Doppler. loosley attached inthe groin. Exam performed in department. The exam was diagnostic. A preliminary report was called and/or faxed to Dr. Arthur's nurse. VL/Venous Duplex US - Jasson Extrem Interpretation Summary Acute deep vein thrombosis is noted in the right gastrocnemius vein, unchanged Acute deep vein thrombosis is noted in the left gastrocnemius vein, unchanged Acute superficial vein thrombosis in the left great saphenous vein, new from pr evious study. Ordering Physician: Padmini Ley Performed By: Gustavo Cooper, RVT
== END | disposition home or self-care (01) ==
PROVIDERS: PCP Nurse Practitioner Family; Referring Provider Physician Assistant; Visit Provider Physician Assistant
DX: I82.463 Acute embolism and thrombosis of calf muscular vein, bilateral (principal); I82.492 Acute embolism and thrombosis of other specified deep vein of left lower extremity
CPT/HCPCS: 93970

== ENCOUNTER → 2022-11-08 | Outpatient (CLI) | payer MEDICARE, OTHER, SELFPAY ==
[2022-11-08 15:22] LABS: Hemoglobin 12.2 g/dL (12.0-15.0)
== END | disposition home or self-care (01) ==
LOC: LAB 14:56
PROVIDERS: PCP Nurse Practitioner Family; Referring Provider Physician Assistant; Visit Provider Physician Assistant
DX: I70.348 Atherosclerosis of unspecified type of bypass graft(s) of the left leg with ulceration of other part of lower leg (principal)
CPT/HCPCS: 36415; 85018

== ENCOUNTER → 2022-11-23 | Outpatient (CLI) | payer MEDICARE, OTHER, SELFPAY ==
--- NOTE | 2022-11-23 08:31 | VDLE_ITS ---
Reason For Study: Bilateral leg pain RIGHT LEFT GSV is normal. GSV is normal. CFV is compressible, spontaneous, phasic, CFV is compressible, spontaneous, phasic, competent and demonstrates normal competent, and demonstrates normal augmentation. augmentation. FV is compressible, spontaneous, phasic, FV is compressible, spontaneous, phasic, competent and demonstrates normal competent and demonstrates normal augmentation. augmentation. POP V is compressible, spontaneous, phasic, POP V is compressible, spontaneous, phasic, competent and demonstrates normal competent and demonstrates normal augmentation. augmentation. T/P Trunk is compressible. T/P Trunk is compressible. PTV is compressible. PTV is compressible. RT PerV is compressible. LT PerV is compressible. Acute deep vein thrombosis is noted in the Left GastrocV is partially compressible with Right Gastrocnemius vein. It is dilated and minimal venous flow noted. partially noncompressible with minimal flow. GSV is dilated and noncompressible from the Procedure ankle to mid thigh. This is a venous duplex using B-mode, color flow and spectral Doppler. Exam performed in department. A preliminary report was called and/or faxed to Dr. Arthur. VL/Venous Duplex US - Jasson Extrem Interpretation Summary Acute deep vein thrombosis is noted in the right gastrocnemius vein, unchanged Acute deep vein thrombosis is noted in the left gastrocnemius vein, unchanged Acute superficial vein thrombus noted in the left mid thigh to ankle, improved from previous. Ordering Physician: Padmini Ley Referring Physician: Reny Live Performed By: Lara Johnson RVT
[2022-11-23 08:46] LABS: Hemoglobin 11.5 g/dL (12.0-15.0)
== END | disposition home or self-care (01) ==
PROVIDERS: PCP Nurse Practitioner Family; Referring Provider Physician Assistant; Visit Provider Physician Assistant
DX: I87.312 Chronic venous hypertension (idiopathic) with ulcer of left lower extremity (principal); I70.348 Atherosclerosis of unspecified type of bypass graft(s) of the left leg with ulceration of other part of lower leg; I82.403 Acute embolism and thrombosis of unspecified deep veins of lower extremity, bilateral
CPT/HCPCS: 36415; 85018; 93970

== ENCOUNTER → 2022-12-09 | Outpatient (CLI) | payer MEDICARE, OTHER, SELFPAY ==
[2022-12-09 11:16] LABS: Hemoglobin 11.8 g/dL (12.0-15.0)
== END | disposition home or self-care (01) ==
LOC: LAB 10:53
PROVIDERS: PCP Nurse Practitioner Family; Referring Provider Physician Assistant; Visit Provider Physician Assistant
DX: Z51.81 Encounter for therapeutic drug level monitoring (principal); Z79.01 Long term (current) use of 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s
CPT/HCPCS: 36415; 85018

== ENCOUNTER 2023-03-31 13:00 | Outpatient (RCR) | payer MEDICARE, OTHER, SELFPAY ==
[2023-03-14 10:25] VITALS: BP 157/49; PULSE 67; RESP 16; TEMP 36.2; BMI 37.4
--- NOTE | 2023-03-14 11:13 | PCM.WC.HP ---
History of Present Illness Date of Service: 03/14/23 Chief Complaint: Traumatic wound of the left lower extremity History of Wound: This is an 82-year-old female with a longstanding history of chronic venous disease. She suffers from chronic swelling and edema in her lower extremities bilaterally. She has a long history of venous stasis dermatitis in the gaiter areas bilaterally. In late January 2023, while in the grocery store, the patient reached for a milk carton, which fell and impacted the left pretibial surface. A wound resulted, which has failed to heal until the current time. The patient is currently treated with systemic anticoagulation for bilateral lower extremity deep vein thrombosis. She spends a good part of each night sleeping in a recliner. She is not very active. She spends long periods each day in a sitting position. She is also obese. She has a history of lower extremity thrombophlebitis. The patient has had ulcers in the distal left lower extremity in the past, treated at [facility]. A noninvasive lower extremity arterial study performed in November 2020 revealed no evidence of significant arterial occlusive disease. [facility] Medical History (Updated 03/14/23 @ 11:[address] 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 Back pain Cardiology follow-up encounter Cataract Cellulitis of left leg Choledocholithiasis Chronic ulcer of left lower extremity Chronic venous hypertension (idiopathic) with inflammation of bilateral lower extremity Chronic venous hypertension (idiopathic) with ulcer of left lower extremity Chronic venous insufficiency Chronic venous stasis dermatitis Decubitus ulcer of left buttock, stage 2 Diabetes DVT (deep venous thrombosis) Edema leg Edema of both legs Essential hypertension Failure to thrive Gastric reflux Generalized weakness GERD (gastroesophageal reflux disease) GI bleed Heel spur Hiatal hernia Hiatal hernia History of bleeding ulcers history of cellulitis of leg History of echocardiogram History of edema History of hiatal hernia History of stress test History of ulceration Hx of venous thrombosis and embolism Hyperpigmentation of skin Hypertension Hypertension Kidney disease Leg swelling Leg wound, left Lipodermatosclerosis Localized edema Loss of consciousness Nausea Nodular goiter 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 Non-smoker Obesity Osteoarthritis Osteoporosis Palpitations Peripheral arterial disease Positional vertigo Post-menopausal Post-phlebitic dermatosis of both lower extremities Pressure ulcer of right buttock, stage 3 Pure hypercholesterolemia Shortness of breath on exertion Sludge in gallbladder Ulcer Venous hypertension, chronic, with inflammation Venous stasis ulcer Wears dentures Home Medications irbesartan 75 mg tablet 75 mg PO DAILY blood pressure 01/15/17 [History Last Taken 08/16/21] potassium chloride 10 mEq capsule,extended release 10 meq PO PRN PRN HYPOKALEMIA 10/11/19 [History Last Taken 12/21/20] torsemide 20 mg tablet 10 mg PO DAILY PRN PRN Edema 12/21/20 [History Last Taken 12/21/20] famotidine 20 mg tablet 20 mg PO BID 30 days #60 tabs 05/24/21 [Rx Last Taken Unknown] meclizine 25 mg tablet 25 mg PO DAILY PRN Vertigo 08/12/21 [History Last Taken Unknown] ursodiol 250 mg tablet 250 mg PO DAILY 30 days #30 tabs 04/14/22 [Rx Last Taken Unknown] rivaroxaban 10 mg tablet (Xarelto) 10 mg PO DAILY #30 tabs 12/01/22 [Rx Last Taken Unknown] hydroxyzine HCl 10 mg tablet 10 mg PO TID PRN itching 03/14/23 [History Last Taken Unknown] Allergy/AdvReac Type Severity Reaction Status Date / Time neomycin sulfate Allergy Severe Itching Verified 03/14/23 10:48 [From Neosporin ([id number])] cefdinir Allergy Other Verified 03/14/23 10:48 ezetimibe [From Zetia] Allergy Itching Verified 03/14/23 10:48 lisinopril Allergy cough Verified 03/14/23 10:48 neomycin [Neomycin] Allergy gets in Verified 03/14/23 10:48 blood stream and pass out polymyxin B [Polymyxin B] Allergy Unknown Verified 03/14/23 10:48 Sulfa (Sulfonamide Allergy Unknown Verified 03/14/23 10:48 Antibiotics) tetracycline [Tetracycline] Allergy Itching Verified 03/14/23 10:48 adhesive tape AdvReac Severe pulls Verified 03/14/23 10:48 skin cephalexin AdvReac Mild Other Verified 03/14/23 10:48 atorvastatin calcium AdvReac Pain in Verified 03/14/23 10:48 [From Lipitor] joints, muscle damage Family History Mother CAD (coronary artery disease) Myocardial infarction Son Hypertension Brother Aortic aneurysm Father Diabetes Heart disease Other Arthritis Bleeding disorder Blood clot in vein Bowel disease H/O ulcer disease Osteoporosis Severe allergy Surgical History H/O dilation and curettage history excision heel spur right foot History of cataract surgery History of cholecystectomy History of ERCP History of hernia repair History of left heart catheterization History of tubal ligation Lipoma Rectal fistula Social History household members: none housing: house current occupational status: employed Smoking Status: Never smoker alcohol intake: never substance use type: does not use caffeine: Yes Type: coffee Number of servings: 1 what type of physical activity do you participate in: none seatbelt use: always do you feel safe at home: Yes Vital Signs Vital Signs Vital Signs: 03/14/23 10:25 Temperature 97.2 F L Temperature Source Temporal Pulse Rate 67 Respiratory Rate 16 Blood Pressure 157/49 H Blood Pressure Mean 85 Blood Pressure Source Monitor Blood Pressure Position Sitting Blood Pressure Location Left Arm Oxygen Delivery Method Room Air Weight Weight: 173 lb Body Mass Index (BMI) 37.4 Physical Exam Const alert, oriented x3, no apparent distress and well nourished Constitutional Narrative: The patient is obese, with a BMI of 37.4. General Appearance: cooperative, comfortable, well kempt and well developed Orientation / Consciousness: awake, oriented to person, oriented to place and oriented to time HEENT normocephalic, head/scalp atraumatic and hearing grossly normal bilaterally Head and Scalp: normal to inspection, normocephalic and atraumatic External Ear: external ears normal Eyes PERRL and EOMs intact bilaterally General Eye: normal appearance of both eyes Resp normal respiratory effort, normal air movement, no retractions and no use of accessory muscles Effort and Inspection: able to speak in complete sentences Extremity no calf tenderness General Extremity: Negative for clubbing or cyanosis Skin Wound Narrative: A traumatic wound is noted on the left pretibial surface. Moderate swelling and edema are noted in the patient's lower extremities bilaterally. Venous stasis dermatitis is noted bilaterally in the gaiter areas, associated with an inflammatory erythema. But for the traumatic wound, there are no keya open ulcerations. There is no sign of infection or cellulitis. The wound demonstrates a moderate amount of bioburden and nonviable tissue. Neuro oriented x3, CN's II-XII intact bilaterally, moves all extremities and no focal motor deficits Sensorium / Orientation: awake, alert, oriented to person, oriented to place and oriented to time Psych Appearance: grossly normal and appropriate Attitude: calm Activity / Motor Behavior: appropriate eye contact Speech: normal speech Mood & Affect: euthymic mood Thought Process: normal thought process Thought Content: normal thought content Attention / Concentration: attention grossly intact Debridement Note Debridement Note Wound debrided: Left pretibial traumatic wound Laterality: Left Type of Debridement: Excisional debridement Anesthesia Used: 5% Lidocaine Gel Depth: Down to and including healthy tissue and in the subcutaneous layer Percentage of wound debrided: 100 Instrument Used: 5mm curette Tissue Removed: Bioburden and nonviable tissue Severity: Fat Layer Exposed Amount of bleeding with debridement: Mild Bleeding Controlled with: Compression and gauze Patient tolerated procedure: Patient did not tolerate procedure well Post-Debridement Measurements and Additional Note: Post-Debridement Measurements/Treatment - Nurse 1 - General Ulcer Assessment Start: 03/14/23 09:45 Freq: Status: Active Protocol: [email or web address] [email or web address] Activity Type Activity Date Activity User E-sign Co-sign Detail Recorded Client Recorded Date Recorded By Document 03/14/23 10:25 [facility] Desktop 03/14/23 10:44 [facility] 03/14/23 10:25 - Today's Visit Information Type of service Initial Visit Arrival Mode Ambulatory,Cane Transfer Assistance None Patient Identification Verified (Name & Yes ) Patient Requires Transmission-Based No Precautions Height and Weight Height 4 ft 9 in Weight 173 lb Weight in Pounds 173.0 lbs Weight Measurement Method Estimated by Patient Body Mass Index (BMI) 37.4 BMI Classification Obese BSA - Michelle 1.69 Vital Signs Temperature (97.8 F-99.1 F) 97.2 F L Temperature Source Temporal Pulse Rate (60-100) 67 Pulse Location Monitor Respiratory Rate (12-18) 16 Respiratory rate source Observation Oxygen Delivery Method Room Air Blood Pressure (90/60-120/80) 157/49 H Blood Pressure Mean 85 Source Monitor Position Sitting Blood Pressure Location Left Arm History Since Last Visit- (Skip if this is Patient's initial visit) Left Footwear Diabetic Shoe Right Footwear Diabetic Shoe Pain Scale: 0-10 Numeric Is Patient Pain Free? Yes Lower Extremity Assessment/ Foot Assessment/ Toe Nail Assessment Right -Posterior Tibial Palpable No -Posterior Tibial Doppler Monophasic -Dorsalis Pedis Palpable No -Dorsalis Pedis Doppler Monophasic -Extremity Color Red -Hair Growth on Legs No -Hair Growth on Toes No -Temperature of Extremity Cool -Other Deformity No -Prior Foot Ulcer No -Charcot Joint No -Prior Amputation No -Thick Yes -Discolored Yes Left -Posterior Tibial Palpable No -Posterior Tibial Doppler Monophasic -Dorsalis Pedis Palpable No -Dorsalis Pedis Doppler Monophasic -Extremity Color Red -Hair Growth on Legs No -Hair Growth on Toes No -Temperature of Extremity Cool -Other Deformity No -Prior Foot Ulcer No -Charcot Joint No -Prior Amputation No -Thick Yes -Discolored Yes -Deformed No -Improper Length & Hygeine No Neuropathy Assessment Feet - Top Side and Bottom <Entered> (a) Communication Assessment Preferred language Lat[place]ian Bulk System Operator Required No Able to Read Yes Able to Write Yes Communication Tools None Right Hearing Abillity Normal Left Hearing Abillity Normal Visual Assistive Devices Glasses Teaching Assessment Preferences Verbal,Written, Audio/Visual, Demonstration Barriers to Learning None Readiness To Learn Excellent Willingness to Engage in Self Management High Activies Readiness to Engage in Self Management High Activities Anxiety Level Calm Cooperation Cooperative Perception Coherent Interest in Health Problem Asks Questions Education Importance Acknowledges Need Does Patient Smoke tobacco or other No substances Smoking Status Never smoker Is Patient Diabetic Yes Functional Assessment Recent Decline in Ability to Perform Denies Any Declines 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 Cultural/Religion Needs that may affect No Treatment Plan Teaching: [facility]ound Center *Welcome to the [facility]ound Center -Person Taught Patient -Teaching Method Discussion -Response to teaching Verbalize understanding Welcome to the [facility] [place]ian (a) 1 - + WC - Nurse 1 - General Ulcer Measurement Start: 03/14/23 09:45 Freq: Status: Active Protocol: Activity Type Activity Date Activity User E-sign Co-sign Detail Recorded Client Recorded Date Recorded By Document 03/14/23 10:25 [facility] Desktop 03/14/23 10:44 [facility] 03/14/23 10:25 [facility] Nurse 1 #11- L LAT LE CLUSTER -Combined with other wound No -Current Size (cm) - Length 6 -Current Size (cm) - Width 3 -Current Size (cm) - Depth 0.1 -Total Square Cm 18 -Date of Last Picture (Recall this 03/14/23 field) -Photo Taken Yes -Epithelialization None Present -Tunneling No -Undermining/Tunneling No -Circular Undermining No -Exudate Amt Medium -Exudate Type Serosanguineous -Wound Margin Distinct, Outline Attached -Granulation Amt Large (67-100%) -Granulation Quality Red -Slough/Fibrin No -Necrosis Amt None Present (0 %) -Texture (Leslye-wound Skin Appearance) Assessed, Scarring -Moisture (Leslye-wound Skin Appearance) Assessed,Dry/ Scaly -Color (Leslye-wound Skin Appearance) Assessed, Erythema -Temperature (Leslye-wound Skin No Abnormality Appearance) (Pt Warm) -Tenderness on Palpation (Leslye-wound No Skin Appearance) -Ulcer Cleansing Rinsed/ Irrigated with Saline -Foul Odor after Cleansing No -Anesthetic Used 5% Lidocaine Gel #10 L MED LE (TRAUMA) -Combined with other wound No -Current Size (cm) - Length 1.6 -Current Size (cm) - Width 2 -Current Size (cm) - Depth 0.1 -Total Square Cm 3.2 -Date of Last Picture (Recall this 03/14/23 field) -Photo Taken Yes -Epithelialization None Present -Tunneling No -Undermining/Tunneling No -Circular Undermining No -Exudate Amt Medium -Exudate Type Serosanguineous -Wound Margin Distinct, Outline Attached -Granulation Amt Large (67-100%) -Granulation Quality Red -Slough/Fibrin No -Necrosis Amt None Present (0 %) -Texture (Leslye-wound Skin Appearance) Assessed, Scarring -Moisture (Leslye-wound Skin Appearance) Assessed,Dry/ Scaly -Color (Leslye-wound Skin Appearance) Assessed, Erythema -Temperature (Leslye-wound Skin No Abnormality Appearance) (Pt Warm) -Tenderness on Palpation (Leslye-wound No Skin Appearance) -Ulcer Cleansing Rinsed/ Irrigated with Saline -Foul Odor after Cleansing No -Anesthetic Used 5% Lidocaine Gel Lower Limb Edema Present Yes Right Calf (cm) 48.2 Right Ankle (cm) 30.3 Left Calf (cm) 52.7 Left Ankle (cm) 24.7 Assessment/Plan Assessment/Plan (1) Leg wound, left: CODE(S): S81.802A - Unspecified open wound, left lower leg, initial encounter QUALIFIERS: Encounter type: initial encounter Qualified Code(s): S81.802A - Unspecified open wound, left lower leg, initial encounter (2) Venous hypertension, chronic, with inflammation: CODE(S): I87.329 - Chronic venous hypertension (idiopathic) with inflammation of unspecified lower extremity QUALIFIERS: Laterality: bilateral Qualified Code(s): I87.323 - Chronic venous hypertension (idiopathic) with inflammation of bilateral lower extremity (3) Chronic venous insufficiency: CODE(S): I87.2 - Venous insufficiency (chronic) (peripheral) (4) Chronic ulcer of left lower extremity: CODE(S): L97.929 - Non-pressure chronic ulcer of unspecified part of left lower leg with unspecified severity QUALIFIERS: Non-pressure ulcer stage: with fat layer exposed Qualified Code(s): L97.922 - Non-pressure chronic ulcer of unspecified part of left lower leg with fat layer exposed (5) Right leg DVT: CODE(S): I82.401 - Acute embolism and thrombosis of unspecified deep veins of right lower extremity QUALIFIERS: Affected thrombotic vein of extremity: calf muscle vein (6) Left leg DVT: CODE(S): I82.402 - Acute embolism and thrombosis of unspecified deep veins of left lower extremity QUALIFIERS: Affected thrombotic vein of extremity: calf muscle vein (7) Nodular goiter: CODE(S): E04.9 - Nontoxic goiter, unspecified (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: CODE(S): E11.59 - Type 2 diabetes mellitus with other circulatory complications (9) Umbilical hernia without obstruction or gangrene: CODE(S): K42.9 - Umbilical hernia without obstruction or gangrene (10) Pure hypercholesterolemia: CODE(S): E78.00 - Pure hypercholesterolemia, unspecified (11) Essential hypertension: CODE(S): I10 - Essential (primary) hypertension (12) GERD (gastroesophageal reflux disease): CODE(S): K21.9 - Gastro-esophageal reflux disease without esophagitis (13) Hiatal hernia: CODE(S): K44.9 - Diaphragmatic hernia without obstruction or gangrene (14) Osteoarthritis: CODE(S): M19.90 - Unspecified osteoarthritis, unspecified site (15) Atherosclerotic heart disease of [place] coronary artery without angina pectoris: CODE(S): I25.10 - Atherosclerotic heart disease of [place] coronary artery without angina pectoris QUALIFIERS: [place] vs. transplanted heart: [place] heart Qualified Code(s): I25.10 - Atherosclerotic heart disease of [place] coronary artery without angina pectoris (16) Obesity: CODE(S): E66.9 - Obesity, unspecified QUALIFIERS: Obesity type: due to excess calories Obesity classification: unspecified obesity classification Serious obesity comorbidity presence: unspecified whether serious comorbidity present Qualified Code(s): E66.09 - Other obesity due to excess calories (17) Leg swelling: CODE(S): M79.89 - Other specified soft tissue disorders (18) Edema leg: CODE(S): R60.0 - Localized edema (19) Post-phlebitic dermatosis of both lower extremities: CODE(S): I87.093 - Postthrombotic syndrome with other complications of bilateral lower extremity (20) Lipodermatosclerosis: CODE(S): I83.10 - Varicose veins of unspecified lower extremity with inflammation QUALIFIERS: Laterality: bilateral Qualified Code(s): M79.3 - Panniculitis, unspecified PLAN: Plan This is an 82-year-old female who presented with a traumatic wound on the left pretibial surface. She has pre-existing severe lower extremity venous disease, with longstanding swelling and edema in her lower extremities, associated with venous stasis dermatitis and inflammatory erythema. [facility]brid[facility] has been performed [facility] today. Conservative treatment measures have been discussed with the patient thoroughly. The patient has been encouraged to sleep on a flat surface at night, rather than a recliner. Leg elevation has been encouraged to heart level, or higher. Leg elevation is to be implemented during daytime hours is much as possible. Activity has been encouraged. Prolonged idle sitting has been discouraged. We are to implement the use of Promogran topically on the traumatic wound on the left pretibial surface. We are to implement the use of compression by means of Unna boots which will be applied bilaterally, and changed twice weekly. The patient is to return in 1 week for reevaluation. Total time: 48 minutes
[2023-03-17 11:34] VITALS: BP 180/69; PULSE 74; RESP 18; TEMP 36.1; BMI 37.4
[2023-03-21 10:16] VITALS: BP 181/63; PULSE 74; RESP 18; TEMP 35.9; BMI 37.4
--- NOTE | 2023-03-21 11:32 | PCM.WC.HP ---
History of Present Illness Date of Service: 03/21/23 Chief Complaint: Traumatic wound of the left lower extremity History of Wound: This is an 82-year-old female with a longstanding history of chronic venous disease. She suffers from chronic swelling and edema in her lower extremities bilaterally. She has a long history of venous stasis dermatitis in the gaiter areas bilaterally. In late January 2023, while in the grocery store, the patient reached for a milk carton, which fell and impacted the left pretibial surface. A wound resulted, which has failed to heal until the current time. The patient is currently treated with systemic anticoagulation for bilateral lower extremity deep vein thrombosis. She spends a good part of each night sleeping in a recliner. She is not very active. She spends long periods each day in a sitting position. She is also obese. She has a history of lower extremity thrombophlebitis. The patient has had ulcers in the distal left lower extremity in the past, treated at the [facility]. A noninvasive lower extremity arterial study performed in November 2020 revealed no evidence of significant arterial occlusive disease. 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 Back pain Cardiology follow-up encounter Cataract Cellulitis of left leg Choledocholithiasis Chronic ulcer of left lower extremity Chronic venous hypertension (idiopathic) with inflammation of bilateral lower extremity Chronic venous hypertension (idiopathic) with ulcer of left lower extremity Chronic venous insufficiency Chronic venous stasis dermatitis Decubitus ulcer of left buttock, stage 2 Diabetes DVT (deep venous thrombosis) Edema leg Edema of both legs Essential hypertension Failure to thrive Gastric reflux Generalized weakness GERD (gastroesophageal reflux disease) GI bleed Heel spur Hiatal hernia Hiatal hernia History of bleeding ulcers history of cellulitis of leg History of echocardiogram History of edema History of hiatal hernia History of stress test History of ulceration Hx of venous thrombosis and embolism Hyperpigmentation of skin Hypertension Hypertension Kidney disease Leg swelling Leg wound, left Lipodermatosclerosis Localized edema Loss of consciousness Nausea Nodular goiter 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 Non-smoker Obesity Osteoarthritis Osteoporosis Palpitations Peripheral arterial disease Positional vertigo Post-menopausal Post-phlebitic dermatosis of both lower extremities Pressure ulcer of right buttock, stage 3 Pure hypercholesterolemia Shortness of breath on exertion Sludge in gallbladder Ulcer Venous hypertension, chronic, with inflammation Venous stasis ulcer Wears dentures Home Medications irbesartan 75 mg tablet 75 mg PO DAILY blood pressure 01/15/17 [History Last Taken 08/16/21] potassium chloride 10 mEq capsule,extended release 10 meq PO PRN PRN HYPOKALEMIA 10/11/19 [History Last Taken 12/21/20] torsemide 20 mg tablet 10 mg PO DAILY PRN PRN Edema 12/21/20 [History Last Taken 12/21/20] famotidine 20 mg tablet 20 mg PO BID 30 days #60 tabs 05/24/21 [Rx Last Taken Unknown] meclizine 25 mg tablet 25 mg PO DAILY PRN Vertigo 08/12/21 [History Last Taken Unknown] ursodiol 250 mg tablet 250 mg PO DAILY 30 days #30 tabs 04/14/22 [Rx Last Taken Unknown] rivaroxaban 10 mg tablet (Xarelto) 10 mg PO DAILY #30 tabs 12/01/22 [Rx Last Taken Unknown] hydroxyzine HCl 10 mg tablet 10 mg PO TID PRN itching 03/14/23 [History Last Taken Unknown] Allergy/AdvReac Type Severity Reaction Status Date / Time neomycin sulfate Allergy Severe Itching Verified 03/14/23 10:48 [From Neosporin ([id number])] cefdinir Allergy Other Verified 03/14/23 10:48 ezetimibe [From Zetia] Allergy Itching Verified 03/14/23 10:48 lisinopril Allergy cough Verified 03/14/23 10:48 neomycin [Neomycin] Allergy gets in Verified 03/14/23 10:48 blood stream and pass out polymyxin B [Polymyxin B] Allergy Unknown Verified 03/14/23 10:48 Sulfa (Sulfonamide Allergy Unknown Verified 03/14/23 10:48 Antibiotics) tetracycline [Tetracycline] Allergy Itching Verified 03/14/23 10:48 adhesive tape AdvReac Severe pulls Verified 03/14/23 10:48 skin cephalexin AdvReac Mild Other Verified 03/14/23 10:48 atorvastatin calcium AdvReac Pain in Verified 03/14/23 10:48 [From Lipitor] joints, muscle damage Family History Mother CAD (coronary artery disease) Myocardial infarction Son Hypertension Brother Aortic aneurysm Father Diabetes Heart disease Other Arthritis Bleeding disorder Blood clot in vein Bowel disease H/O ulcer disease Osteoporosis Severe allergy Surgical History H/O dilation and curettage history excision heel spur right foot History of cataract surgery History of cholecystectomy History of ERCP History of hernia repair History of left heart catheterization History of tubal ligation Lipoma Rectal fistula Social History household members: none housing: house current occupational status: employed Smoking Status: Never smoker alcohol intake: never substance use type: does not use caffeine: Yes Type: coffee Number of servings: 1 what type of physical activity do you participate in: none seatbelt use: always do you feel safe at home: Yes Vital Signs Vital Signs Vital Signs: 03/21/23 10:16 Temperature 96.6 F L Temperature Source Temporal Pulse Rate 74 Respiratory Rate 18 Blood Pressure 181/63 H Blood Pressure Mean 102 Blood Pressure Source Monitor Blood Pressure Position Semi-Fowlers Blood Pressure Location Left Arm Weight Weight: 173 lb Body Mass Index (BMI) 37.4 Physical Exam Const alert, oriented x3, no apparent distress and well nourished Constitutional Narrative: The patient is obese, with a BMI of 37.4. General Appearance: cooperative, comfortable, well kempt and well developed Orientation / Consciousness: awake, oriented to person, oriented to place and oriented to time HEENT normocephalic, head/scalp atraumatic and hearing grossly normal bilaterally Head and Scalp: normal to inspection, normocephalic and atraumatic External Ear: external ears normal Eyes PERRL and EOMs intact bilaterally General Eye: normal appearance of both eyes Resp normal respiratory effort, normal air movement, no retractions and no use of accessory muscles Effort and Inspection: able to speak in complete sentences Extremity no calf tenderness General Extremity: Negative for clubbing or cyanosis Skin Wound Narrative: A traumatic wound is noted on the left pretibial surface. It appears to be slightly smaller in size, and is generally pink and healthy in appearance. Dimensions are documented elsewhere. Moderate swelling and edema are noted in the patient's lower extremities bilaterally. Venous stasis dermatitis is noted bilaterally in the gaiter areas, associated with an inflammatory erythema. But for the traumatic wound, there are no keya open ulcerations. There is no sign of infection or cellulitis. The wound demonstrates a moderate amount of bioburden and nonviable tissue. Neuro oriented x3, CN's II-XII intact bilaterally, moves all extremities and no focal motor deficits Sensorium / Orientation: awake, alert, oriented to person, oriented to place and oriented to time Psych Appearance: grossly normal and appropriate Attitude: calm Activity / Motor Behavior: appropriate eye contact Speech: normal speech Mood & Affect: euthymic mood Thought Process: normal thought process Thought Content: normal thought content Attention / Concentration: attention grossly intact Debridement Note Debridement Note Wound debrided: Left pretibial traumatic wound Laterality: Left Type of Debridement: Excisional debridement Anesthesia Used: 5% Lidocaine Gel Depth: Down to and including healthy tissue and in the subcutaneous layer Percentage of wound debrided: 100 Instrument Used: 5mm curette Tissue Removed: Bioburden and nonviable tissue Severity: Fat Layer Exposed Amount of bleeding with debridement: Mild Bleeding Controlled with: Compression and gauze Patient tolerated procedure: Patient tolerated procedure well Post-Debridement Measurements and Additional Note: Post-Debridement Measurements/Treatment - Nurse 1 - General Ulcer Assessment Start: 03/14/23 09:45 Freq: Status: Active Protocol: DYAN Activity Type Activity Date Activity User E-sign Co-sign Detail Recorded Client Recorded Date Recorded By Document 03/14/23 10:25 [facility] Desktop 03/14/23 10:44 [facility] Document 03/17/23 11:34 KW Desktop 03/17/23 11:48 KW Document 03/21/23 10:16 RB Desktop 03/21/23 10:30 RB 03/14/23 03/17/23 03/21/23 10:25 11:34 10:16 - Today's Visit Information Type of service Initial Visit Nurse-only Follow-up Visit 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 ) Arrival Mode Ambulatory,Cane Ambulatory,Cane Ambulatory Transfer Assistance None None Patient Identification Verified (Name & Yes Yes Yes ) Patient Requires Transmission-Based No No Precautions Height and Weight Height 4 ft 9 in Weight 173 lb Weight in Pounds 173.0 lbs Weight Measurement Method Estimated by Patient Body Mass Index (BMI) 37.4 37.4 37.4 BMI Classification Obese Obese Obese BSA - Michelle 1.69 Vital Signs Temperature (97.8 F-99.1 F) 97.2 F L 96.9 F L 96.6 F L Temperature Source Temporal Temporal Temporal Pulse Rate (60-100) 67 74 74 Pulse Location Monitor Monitor Monitor Respiratory Rate (12-18) 16 18 18 Respiratory rate source Observation Observation Observation Oxygen Delivery Method Room Air Room Air Blood Pressure (90/60-120/80) 157/49 H 180/69 H 181/63 H Blood Pressure Mean 85 106 102 Source Monitor Monitor Monitor Position Sitting Semi-Fowlers Semi-Fowlers Blood Pressure Location Left Arm Left Arm Left Arm History Since Last Visit- (Skip if this is Patient's initial visit) Have you changed medications since your No No last visit? Any new allergies or adverse reactions No No Had a fall/change in ADL's that may No No increase risk of falls Signs or symptoms of abuse and/or No No neglect since last visit Have you been in the hospital since your No No last visit? Has dressing in place as prescribed Yes Yes Has compression in place as prescribed Yes Yes Has offloadiing in place as prescribed No No Experienced any changes in pain level or No No management Left Footwear Diabetic Shoe Regular Shoe Right Footwear Diabetic Shoe Regular Shoe Pain Scale: 0-10 Numeric Is Patient Pain Free? Yes Yes Yes Lower Extremity Assessment/ Foot Assessment/ Toe Nail Assessment Right -Posterior Tibial Palpable No -Posterior Tibial Doppler Monophasic -Dorsalis Pedis Palpable No -Dorsalis Pedis Doppler Monophasic -Extremity Color Red -Hair Growth on Legs No -Hair Growth on Toes No -Temperature of Extremity Cool -Other Deformity No -Prior Foot Ulcer No -Charcot Joint No -Prior Amputation No -Thick Yes -Discolored Yes Left -Posterior Tibial Palpable No -Posterior Tibial Doppler Monophasic -Dorsalis Pedis Palpable No -Dorsalis Pedis Doppler Monophasic -Extremity Color Red -Hair Growth on Legs No -Hair Growth on Toes No -Temperature of Extremity Cool -Other Deformity No -Prior Foot Ulcer No -Charcot Joint No -Prior Amputation No -Thick Yes -Discolored Yes -Deformed No -Improper Length & Hygeine No Neuropathy Assessment Feet - Top Side and Bottom <Entered> (a) Communication Assessment Preferred language [place] Librarian Specialist Required No Able to Read Yes Able to Write Yes Communication Tools None Right Hearing Abillity Normal Left Hearing Abillity Normal Visual Assistive Devices Glasses Teaching Assessment Preferences Verbal,Written, Audio/Visual, Demonstration Barriers to Learning None Readiness To Learn Excellent Willingness to Engage in Self Management High Activies Readiness to Engage in Self Management High Activities Anxiety Level Calm Cooperation Cooperative Perception Coherent Interest in Health Problem Asks Questions Education Importance Acknowledges Need Does Patient Smoke tobacco or other No substances Smoking Status Never smoker Is Patient Diabetic Yes Functional Assessment Recent Decline in Ability to Perform Denies Any Declines 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 Cultural/Congregational Needs that may affect No Treatment Plan Teaching: Wound Center *Welcome to the Wound Center -Person Taught Patient -Teaching Method Discussion -Response to teaching Verbalize understanding Welcome to the [facility] [place] (a) 1 - + WC - Nurse 1 - General Ulcer Measurement Start: 03/14/23 09:45 Freq: Status: Active Protocol: Activity Type Activity Date Activity User E-sign Co-sign Detail Recorded Client Recorded Date Recorded By Document 03/14/23 10:25 [facility] Desktop 03/14/23 10:44 [facility] Document 03/17/23 11:34 KW Desktop 03/17/23 11:48 KW Document 03/21/23 10:16 RB Desktop 03/21/23 10:30 RB 03/14/23 03/17/23 03/21/23 10:25 11:34 10:16 Wound Center Nurse 1 #11- L LAT LE CLUSTER -Combined with other wound No No -Current Size (cm) - Length 6 10.0 0.1 -Current Size (cm) - Width 3 1.5 0.1 -Current Size (cm) - Depth 0.1 0.1 0.1 -Total Square Cm 18 15.00 0.01 -Date of Last Picture (Recall this 03/14/23 field) -Photo Taken Yes -Epithelialization None Present -Tunneling No No -Undermining/Tunneling No No -Circular Undermining No No -Exudate Amt Medium Medium Small -Exudate Type Serosanguineous Serosanguineous Sanguineous -Wound Margin Distinct, Distinct, Distinct, Outline Outline Outline Attached Attached Attached -Granulation Amt Large (67-100%) Large (67-100%) Medium (34-66%) -Granulation Quality Red Red [place] -Slough/Fibrin No Yes -Necrosis Amt None Present (0 Small (1-33%) %) -Necrotic Tissue Type Adherent Slough -Structure Exposed N/A -Texture (Leslye-wound Skin Appearance) Assessed, Assessed Assessed Scarring -Moisture (Leslye-wound Skin Appearance) Assessed,Dry/ Assessed, Assessed Scaly Weeping -Color (Leslye-wound Skin Appearance) Assessed, Assessed, Assessed Erythema Erythema -Temperature (Leslye-wound Skin No Abnormality No Abnormality No Abnormality Appearance) (Pt Warm) (Pt Warm) (Pt Warm) -Tenderness on Palpation (Leslye-wound No No Skin Appearance) -Ulcer Cleansing Rinsed/ Soap and Water Wound Cleanser Irrigated with Saline -Foul Odor after Cleansing No No -Anesthetic Used 5% Lidocaine Gel #10 L MED LE (TRAUMA) -Combined with other wound No No -Current Size (cm) - Length 1.6 1.3 1.7 -Current Size (cm) - Width 2 1.2 1.9 -Current Size (cm) - Depth 0.1 0.2 0.1 -Total Square Cm 3.2 1.56 3.23 -Date of Last Picture (Recall this 03/14/23 field) -Photo Taken Yes -Epithelialization None Present -Tunneling No No -Undermining/Tunneling No No -Circular Undermining No No -Exudate Amt Medium Medium Medium -Exudate Type Serosanguineous Serosanguineous Serosanguineous -Wound Margin Distinct, Distinct, Distinct, Outline Outline Outline Attached Attached Attached -Granulation Amt Large (67-100%) Large (67-100%) Medium (34-66%) -Granulation Quality Red Red [place] -Slough/Fibrin No Yes -Necrosis Amt None Present (0 Medium (34-66%) %) -Necrotic Tissue Type Adherent Slough -Structure Exposed N/A -Texture (Leslye-wound Skin Appearance) Assessed, Assessed, Assessed Scarring Localized Edema -Moisture (Leslye-wound Skin Appearance) Assessed,Dry/ Assessed, Assessed Scaly Weeping -Color (Leslye-wound Skin Appearance) Assessed, Assessed, Assessed, Erythema Erythema Hemosiderin Staining -Temperature (Leslye-wound Skin No Abnormality No Abnormality No Abnormality Appearance) (Pt Warm) (Pt Warm) (Pt Warm) -Tenderness on Palpation (Leslye-wound No No Skin Appearance) -Ulcer Cleansing Rinsed/ Soap and Water Wound Cleanser Irrigated with Saline -Foul Odor after Cleansing No Yes -Anesthetic Used 5% Lidocaine 5% Lidocaine Gel Gel Lower Limb Edema Present Yes Yes Right Calf (cm) 48.2 47.5 Right Ankle (cm) 30.3 28.2 Left Calf (cm) 52.7 52.3 Left Ankle (cm) 24.7 25.5 WC - Nurse 2 - General Ulcer CM Notes Start: 03/14/23 09:45 Freq: Status: Active Protocol: Activity Type Activity Date Activity User E-sign Co-sign Detail Recorded Client Recorded Date Recorded By Document 03/14/23 13:19 PL [id number] 03/14/23 13:21 PL Edit Result 03/14/23 13:19 PL (1) [id number] 03/15/23 07:27 PL (1) #10 L MED LE (TRAUMA) - Debridement, SubQ, ea addt'l 20sq cm => 1 or part thereof 03/14/23 13:19 Wound Center Nurse 2 #11- L LAT LE CLUSTER -Time 11:03 -Correct Patient Yes -Correct Side, Site, Position Yes -Correct Procedure Yes -Procedure Performed Yes -Type of Procedure Debridement -Clinical Debridement Subcutaneous -Tissue Removed Subcutaneous -Post Debridement (cm) - Length 6.0 -Post Debridement (cm) - Width 3.0 -Post Debridement (cm) - Depth 0.1 -Total Square (Post) (cm) 18.00 -Area of Debridement (cm) - Length 6.0 -Area of Debridement (cm) - Width 3.0 -Total Square (Area) (cm) 18.00 -Tunneling No -Undermining/Tunneling No -Circular Undermining No -Wound/Ulcer Outcome Not Healed -Ulcer Cleansing Rinsed/ Irrigated with Saline -Foul Odor after Cleansing No -Bioengineered Tissue No -Bleeding Controlled with Pressure -Treatment Response Procedure Tolerated Well -Debridement - Subq, 1st 20sq cm No #10 L MED LE (TRAUMA) -Time 11:03 -Correct Patient Yes -Correct Side, Site, Position Yes -Correct Procedure Yes -Procedure Performed Yes -Type of Procedure Debridement -Clinical Debridement Subcutaneous -Tissue Removed Subcutaneous -Post Debridement (cm) - Length 1.6 -Post Debridement (cm) - Width 2.0 -Post Debridement (cm) - Depth 0.1 -Total Square (Post) (cm) 3.20 -Area of Debridement (cm) - Length 1.6 -Area of Debridement (cm) - Width 2.0 -Total Square (Area) (cm) 3.20 -Tunneling No -Undermining/Tunneling No -Circular Undermining No -Wound/Ulcer Outcome Not Healed -Ulcer Cleansing Rinsed/ Irrigated with Saline -Foul Odor after Cleansing No -Bioengineered Tissue No -Bleeding Controlled with Pressure -Treatment Response Procedure Tolerated Well -Debridement - Subq, 1st 20sq cm Yes -Debridement, SubQ, ea addt'l 20sq cm 1 or part thereof Pain Scale: 0-10 Numeric Is Patient Pain Free? Yes - Nurse 3 - General Ulcer D/C NN Start: 03/14/23 09:45 Freq: Status: Active Protocol: Activity Type Activity Date Activity User E-sign Co-sign Detail Recorded Client Recorded Date Recorded By Document 03/14/23 11:29 [facility] Desktop 03/14/23 11:30 [facility] Document 03/17/23 11:24 [facility] Desktop 03/17/23 11:34 KW 03/14/23 03/17/23 11:29 11:24 Wound Care Center Nurse 3 #11- L LAT LE CLUSTER -Ulcer Cleansing Rinsed/ Irrigated with Saline -Foul Odor after Cleansing No -Primary Dressing Applied Optilok 6.5x10, Optilok 8x12 Promogran -Other Dressing unna boot -Primary Dressing Covered/Secured with Dry Gauze & Roll Gauze, Secured with Tape -Optilok 6.5x10 1 -Optilok 8x12 2 -Promogran 1 #10 L MED LE (TRAUMA) -Ulcer Cleansing Rinsed/ Irrigated with Saline -Foul Odor after Cleansing No -Primary Dressing Applied Optilok 6.5x10, Promogran -Other Dressing unna boot -Optilok 6.5x10 1 -Promogran 0 ble -Multi-Layered Wrap Application Unna Boot - Unna Boot - Bilateral ($) Bilateral ($) Treatment Response Procedure Tolerated Well Pain Scale: 0-10 Numeric Is Patient Pain Free? Yes Yes - Visit Discharge Discharge Condition Stable Stable Ambulatory Status Ambulatory Ambulatory,Cane Transportation Private Auto Private Auto Medication Reconcilliation completed & No provided to patient/care provider Clinical Summary of Care Provided Yes Assessment/Plan Assessment/Plan (1) Leg wound, left: CODE(S): S81.802A - Unspecified open wound, left lower leg, initial encounter QUALIFIERS: Encounter type: initial encounter Qualified Code(s): S81.802A - Unspecified open wound, left lower leg, initial encounter (2) Venous hypertension, chronic, with inflammation: CODE(S): I87.329 - Chronic venous hypertension (idiopathic) with inflammation of unspecified lower extremity QUALIFIERS: Laterality: bilateral Qualified Code(s): I87.323 - Chronic venous hypertension (idiopathic) with inflammation of bilateral lower extremity (3) Chronic venous insufficiency: CODE(S): I87.2 - Venous insufficiency (chronic) (peripheral) (4) Chronic ulcer of left lower extremity: CODE(S): L97.929 - Non-pressure chronic ulcer of unspecified part of left lower leg with unspecified severity QUALIFIERS: Non-pressure ulcer stage: with fat layer exposed Qualified Code(s): L97.922 - Non-pressure chronic ulcer of unspecified part of left lower leg with fat layer exposed (5) Right leg DVT: CODE(S): I82.401 - Acute embolism and thrombosis of unspecified deep veins of right lower extremity QUALIFIERS: Affected thrombotic vein of extremity: calf muscle vein (6) Left leg DVT: CODE(S): I82.402 - Acute embolism and thrombosis of unspecified deep veins of left lower extremity QUALIFIERS: Affected thrombotic vein of extremity: calf muscle vein (7) Nodular goiter: CODE(S): E04.9 - Nontoxic goiter, unspecified (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: CODE(S): E11.59 - Type 2 diabetes mellitus with other circulatory complications (9) Umbilical hernia without obstruction or gangrene: CODE(S): K42.9 - Umbilical hernia without obstruction or gangrene (10) Pure hypercholesterolemia: CODE(S): E78.00 - Pure hypercholesterolemia, unspecified (11) Essential hypertension: CODE(S): I10 - Essential (primary) hypertension (12) GERD (gastroesophageal reflux disease): CODE(S): K21.9 - Gastro-esophageal reflux disease without esophagitis (13) Hiatal hernia: CODE(S): K44.9 - Diaphragmatic hernia without obstruction or gangrene (14) Osteoarthritis: CODE(S): M19.90 - Unspecified osteoarthritis, unspecified site (15) Atherosclerotic heart disease of [place] coronary artery without angina pectoris: CODE(S): I25.10 - Atherosclerotic heart disease of [place] coronary artery without angina pectoris QUALIFIERS: [place] vs. 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 She has pre-existing severe lower extremity venous disease, with longstanding swelling and edema in her lower extremities, associated with venous stasis dermatitis and inflammatory erythema. Debridement has been performed in the [facility] today. Conservative treatment measures have been discussed with the patient thoroughly. The patient has been encouraged to sleep on a flat surface at night, rather than a recliner. Leg elevation has been encouraged to heart level, or higher. Leg elevation is to be implemented during daytime hours is much as possible. Activity has been encouraged. Prolonged idle sitting has been discouraged. We are to continue the use of Promogran topically on the traumatic wound on the left pretibial surface. We are to continue the use of compression by means of Unna boots which will be applied bilaterally, and changed twice weekly. It has been learned that the patient cut off the Unna boots prematurely since the last application. This practice has been discouraged. Rather, the patient has been encouraged to enhance her efforts at leg elevation and avoidance of idle sitting. The patient is to return in 1 week for reevaluation. Total time: 26 minutes
[2023-03-24 13:42] VITALS: BP 181/66; PULSE 76; RESP 18; TEMP 36.2; BMI 37.4
[2023-03-28 10:09] VITALS: BP 171/58; PULSE 75; RESP 18; TEMP 36.4; BMI 37.4
[2023-03-28 10:18] VITALS: BP 171/58; PULSE 82; RESP 18; TEMP 36.1; BMI 37.4
--- NOTE | 2023-03-28 12:39 | HP.PCM_ITS ---
History of Present Illness Date of Service: 03/28/23 Chief Complaint: Traumatic wound of the left lower extremity History of Wound: This is an 82-year-old female with a longstanding history of chronic venous disease. She suffers from chronic swelling and edema in her lower extremities bilaterally. She has a long history of venous stasis dermatitis in the gaiter areas bilaterally. In late January 2023, while in the grocery store, the patient reached for a milk carton, which fell and impacted the left pretibial surface. A wound resulted, which has failed to heal until the current time. The patient is currently treated with systemic anticoagulation for bilateral lower extremity deep vein thrombosis. She spends a good part of each night sleeping in a recliner. She is not very active. She spends long periods each day in a sitting position. She is also obese. She has a history of lower extremity thrombophlebitis. The patient has had ulcers in the distal left lower extremity in the past, treated at the [facility]. A noninvasive lower extremity arterial study performed in November 2020 revealed no evidence of significant arterial occlusive disease. 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 Back pain Cardiology follow-up encounter Cataract Cellulitis of left leg Choledocholithiasis Chronic ulcer of left lower extremity Chronic venous hypertension (idiopathic) with inflammation of bilateral lower extremity Chronic venous hypertension (idiopathic) with ulcer of left lower extremity Chronic venous insufficiency Chronic venous stasis dermatitis Decubitus ulcer of left buttock, stage 2 Diabetes DVT (deep venous thrombosis) Edema leg Edema of both legs Essential hypertension Failure to thrive Gastric reflux Generalized weakness GERD (gastroesophageal reflux disease) GI bleed Heel spur Hiatal hernia Hiatal hernia History of bleeding ulcers history of cellulitis of leg History of echocardiogram History of edema History of hiatal hernia History of stress test History of ulceration Hx of venous thrombosis and embolism Hyperpigmentation of skin Hypertension Hypertension Kidney disease Leg swelling Leg wound, left Lipodermatosclerosis Localized edema Loss of consciousness Nausea Nodular goiter 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 Non-smoker Obesity Osteoarthritis Osteoporosis Palpitations Peripheral arterial disease Positional vertigo Post-menopausal Post-phlebitic dermatosis of both lower extremities Pressure ulcer of right buttock, stage 3 Pure hypercholesterolemia Shortness of breath on exertion Sludge in gallbladder Ulcer Venous hypertension, chronic, with inflammation Venous stasis ulcer Wears dentures Home Medications irbesartan 75 mg tablet 75 mg PO DAILY blood pressure 01/15/17 [History Last Taken 08/16/21] potassium chloride 10 mEq capsule,extended release 10 meq PO PRN PRN HYPOKALEMIA 10/11/19 [History Last Taken 12/21/20] torsemide 20 mg tablet 10 mg PO DAILY PRN PRN Edema 12/21/20 [History Last Taken 12/21/20] famotidine 20 mg tablet 20 mg PO BID 30 days #60 tabs 05/24/21 [Rx Last Taken Unknown] meclizine 25 mg tablet 25 mg PO DAILY PRN Vertigo 08/12/21 [History Last Taken Unknown] ursodiol 250 mg tablet 250 mg PO DAILY 30 days #30 tabs 04/14/22 [Rx Last Taken Unknown] rivaroxaban 10 mg tablet (Xarelto) 10 mg PO DAILY #30 tabs 12/01/22 [Rx Last Taken Unknown] hydroxyzine HCl 10 mg tablet 10 mg PO TID PRN itching 03/14/23 [History Last Taken Unknown] Allergy/AdvReac Type Severity Reaction Status Date / Time neomycin sulfate Allergy Severe Itching Verified 03/14/23 10:48 [From Neosporin ([id number])] cefdinir Allergy Other Verified 03/14/23 10:48 ezetimibe [From Zetia] Allergy Itching Verified 03/14/23 10:48 lisinopril Allergy cough Verified 03/14/23 10:48 neomycin [Neomycin] Allergy gets in Verified 03/14/23 10:48 blood stream and pass out polymyxin B [Polymyxin B] Allergy Unknown Verified 03/14/23 10:48 Sulfa (Sulfonamide Allergy Unknown Verified 03/14/23 10:48 Antibiotics) tetracycline [Tetracycline] Allergy Itching Verified 03/14/23 10:48 adhesive tape AdvReac Severe pulls Verified 03/14/23 10:48 skin cephalexin AdvReac Mild Other Verified 03/14/23 10:48 atorvastatin calcium AdvReac Pain in Verified 03/14/23 10:48 [From Lipitor] joints, muscle damage Family History Mother CAD (coronary artery disease) Myocardial infarction Son Hypertension Brother Aortic aneurysm Father Diabetes Heart disease Other Arthritis Bleeding disorder Blood clot in vein Bowel disease H/O ulcer disease Osteoporosis Severe allergy Surgical History H/O dilation and curettage history excision heel spur right foot History of cataract surgery History of cholecystectomy History of ERCP History of hernia repair History of left heart catheterization History of tubal ligation Lipoma Rectal fistula Social History household members: none housing: house current occupational status: employed Smoking Status: Never smoker alcohol intake: never substance use type: does not use caffeine: Yes Type: coffee Number of servings: 1 what type of physical activity do you participate in: none seatbelt use: always do you feel safe at home: Yes Vital Signs Vital Signs Vital Signs: 03/28/23 10:09 03/28/23 10:18 Temperature 97.6 F L 97 F L Temperature Source Temporal Temporal Pulse Rate 75 82 Respiratory Rate 18 18 Blood Pressure 171/58 H 171/58 H Blood Pressure Mean 95 95 Blood Pressure Source Monitor Blood Pressure Position Semi-Fowlers Blood Pressure Location Left Arm Weight Weight: 173 lb Body Mass Index (BMI) 37.4 Physical Exam Const alert, oriented x3, no apparent distress and well nourished Constitutional Narrative: The patient is obese, with a BMI of 37.4. General Appearance: cooperative, comfortable, well kempt and well developed Orientation / Consciousness: awake, oriented to person, oriented to place and oriented to time HEENT normocephalic, head/scalp atraumatic and hearing grossly normal bilaterally Head and Scalp: normal to inspection, normocephalic and atraumatic External Ear: external ears normal Eyes PERRL and EOMs intact bilaterally General Eye: normal appearance of both eyes Resp normal respiratory effort, normal air movement, no retractions and no use of accessory muscles Effort and Inspection: able to speak in complete sentences Extremity no calf tenderness General Extremity: Negative for clubbing or cyanosis Skin Wound Narrative: A traumatic wound is noted on the left pretibial surface. It appears to be slightly smaller in size, and is generally pink and healthy in appearance. Dimensions are documented elsewhere. Moderate swelling and edema are noted in the patient's lower extremities bilaterally. Venous stasis dermatitis is noted bilaterally in the gaiter areas, associated with a mild inflammatory erythema. But for the traumatic wound, there are no keya open ulcerations. There is no sign of infection or cellulitis. The wound demonstrates a small amount of bioburden and nonviable tissue. Neuro oriented x3, CN's II-XII intact bilaterally, moves all extremities and no focal motor deficits Sensorium / Orientation: awake, alert, oriented to person, oriented to place and oriented to time Psych Appearance: grossly normal and appropriate Attitude: calm Activity / Motor Behavior: appropriate eye contact Speech: normal speech Mood & Affect: euthymic mood Thought Process: normal thought process Thought Content: normal thought content Attention / Concentration: attention grossly intact Debridement Note Debridement Note Wound debrided: Left pretibial traumatic wound Laterality: Left Type of Debridement: Excisional debridement Anesthesia Used: 5% Lidocaine Gel Depth: Down to and including healthy tissue and in the subcutaneous layer Percentage of wound debrided: 100 Instrument Used: 5mm curette Tissue Removed: Bioburden and nonviable tissue Severity: Fat Layer Exposed Amount of bleeding with debridement: Mild Bleeding Controlled with: Compression and gauze Patient tolerated procedure: Patient tolerated procedure well Post-Debridement Measurements and Additional Note: Post-Debridement Measurements/Treatment - Nurse 1 - General Ulcer Assessment Start: 03/14/23 09:45 Freq: Status: Active Protocol: JEAN PAUL.LOWVANDA Activity Type Activity Date Activity User E-sign Co-sign Detail Recorded Client Recorded Date Recorded By Document 03/14/23 10:25 [facility] Desktop 03/14/23 10:44 [facility] Document 03/17/23 11:34 KW Desktop 03/17/23 11:48 KW Document 03/21/23 10:16 RB Desktop 03/21/23 10:30 RB Document 03/24/23 13:42 RB Desktop 03/24/23 13:49 RB Document 03/28/23 10:09 PL Tablet 03/28/23 10:39 PL Document 03/28/23 10:18 RB Desktop 03/28/23 10:23 RB 03/14/23 03/17/23 03/21/23 10:25 11:34 10:16 - Today's Visit Information Type of service Initial Visit Nurse-only Follow-up Visit Visit (Physician/WEBBING WEAVER ) Arrival Mode Ambulatory,Cane Ambulatory,Cane Ambulatory Transfer Assistance None None Patient Identification Verified (Name & Yes Yes Yes ) Patient Requires Transmission-Based No No Precautions Safety Precautions Height and Weight Height 4 ft 9 in Weight 173 lb Weight in Pounds 173.0 lbs Weight Measurement Method Estimated by Patient Body Mass Index (BMI) 37.4 37.4 37.4 BMI Classification Obese Obese Obese BSA - Michelle 1.69 Vital Signs Temperature (97.8 F-99.1 F) 97.2 F L 96.9 F L 96.6 F L Temperature Source Temporal Temporal Temporal Pulse Rate (60-100) 67 74 74 Pulse Location Monitor Monitor Monitor Respiratory Rate (12-18) 16 18 18 Respiratory rate source Observation Observation Observation Oxygen Delivery Method Room Air Room Air Blood Pressure (90/60-120/80) 157/49 H 180/69 H 181/63 H Blood Pressure Mean 85 106 102 Source Monitor Monitor Monitor Position Sitting Semi-Fowlers Semi-Fowlers Blood Pressure Location Left Arm Left Arm Left Arm History Since Last Visit- (Skip if this is Patient's initial visit) Have you changed medications since your No No last visit? Any new allergies or adverse reactions No No Had a fall/change in ADL's that may No No increase risk of falls Signs or symptoms of abuse and/or No No neglect since last visit Have you been in the hospital since your No No last visit? Has dressing in place as prescribed Yes Yes Has compression in place as prescribed Yes Yes Has offloadiing in place as prescribed No No Experienced any changes in pain level or No No management Left Footwear Diabetic Shoe Regular Shoe Right Footwear Diabetic Shoe Regular Shoe Pain Scale: 0-10 Numeric Is Patient Pain Free? Yes Yes Yes Lower Extremity Assessment/ Foot Assessment/ Toe Nail Assessment Right -Posterior Tibial Palpable No -Posterior Tibial Doppler Monophasic -Dorsalis Pedis Palpable No -Dorsalis Pedis Doppler Monophasic -Extremity Color Red -Hair Growth on Legs No -Hair Growth on Toes No -Temperature of Extremity Cool -Other Deformity No -Prior Foot Ulcer No -Charcot Joint No -Prior Amputation No -Thick Yes -Discolored Yes Left -Posterior Tibial Palpable No -Posterior Tibial Doppler Monophasic -Dorsalis Pedis Palpable No -Dorsalis Pedis Doppler Monophasic -Extremity Color Red -Hair Growth on Legs No -Hair Growth on Toes No -Temperature of Extremity Cool -Other Deformity No -Prior Foot Ulcer No -Charcot Joint No -Prior Amputation No -Thick Yes -Discolored Yes -Deformed No -Improper Length & Hygeine No Neuropathy Assessment Feet - Top Side and Bottom <Entered> (a) Communication Assessment Preferred language 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 Operator 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 No Able to Read Yes Able to Write Yes Communication Tools None Right Hearing Abillity Normal Left Hearing Abillity Normal Visual Assistive Devices Glasses Teaching Assessment Preferences Verbal,Written, Audio/Visual, Demonstration Barriers to Learning None Readiness To Learn Excellent Willingness to Engage in Self Management High Activies Readiness to Engage in Self Management High Activities Anxiety Level Calm Cooperation Cooperative Perception Coherent Interest in Health Problem Asks Questions Education Importance Acknowledges Need Does Patient Smoke tobacco or other No substances Smoking Status Never smoker Is Patient Diabetic Yes Functional Assessment Recent Decline in Ability to Perform Denies Any Declines 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 Cultural/Pentecostalism Needs that may affect No Treatment Plan Teaching: [facility]ound Center *Welcome to the Wound Center -Person Taught Patient -Teaching Method Discussion -Response to teaching Verbalize understanding Welcome to the [facility] Wallisian 03/24/23 03/28/23 03/28/23 13:42 10:09 10:18 WC - Today's Visit Information Type of service Nurse-only Follow-up Visit Follow-up Visit Visit (Physician/WEBBING WEAVER (Physician/WEBBING WEAVER ) ) Arrival Mode Ambulatory Ambulatory,Cane Ambulatory Transfer Assistance None None None Patient Identification Verified (Name & Yes Yes Yes ) Patient Requires Transmission-Based No No No Precautions Safety Precautions NA Height and Weight Height Weight Weight in Pounds Weight Measurement Method Body Mass Index (BMI) 37.4 37.4 37.4 BMI Classification Obese Obese Obese [facility] [place] Vital Signs Temperature (97.8 F-99.1 F) 97.1 F L 97.6 F L 97 F L Temperature Source Temporal Temporal Temporal Pulse Rate (60-100) 76 75 82 Pulse Location Monitor Monitor Respiratory Rate (12-18) 18 18 18 Respiratory rate source Observation Observation Oxygen Delivery Method Blood Pressure (90/60-120/80) 181/66 H 171/58 H 171/58 H Blood Pressure Mean 104 95 95 Source Monitor Monitor Position Semi-Fowlers Semi-Fowlers Blood Pressure Location Left Arm Left Arm History Since Last Visit- (Skip if this is Patient's initial visit) Have you changed medications since your No No No last visit? Any new allergies or adverse reactions No No No Had a fall/change in ADL's that may No No No increase risk of falls Signs or symptoms of abuse and/or No No No neglect since last visit Have you been in the hospital since your No No No last visit? Has dressing in place as prescribed Yes Yes Yes Has compression in place as prescribed Yes Yes No Has offloadiing in place as prescribed No Yes No Experienced any changes in pain level or No No No management Left Footwear Right Footwear Pain Scale: 0-10 Numeric Is Patient Pain Free? Yes Yes Yes Lower Extremity Assessment/ Foot Assessment/ Toe Nail Assessment Right -Posterior Tibial Palpable -Posterior Tibial Doppler -Dorsalis Pedis Palpable -Dorsalis Pedis Doppler -Extremity Color -Hair Growth on Legs -Hair Growth on Toes -Temperature of Extremity -Other Deformity -Prior Foot Ulcer -Charcot Joint -Prior Amputation -Thick -Discolored Left -Posterior Tibial Palpable -Posterior Tibial Doppler -Dorsalis Pedis Palpable -Dorsalis Pedis Doppler -Extremity Color -Hair Growth on Legs -Hair Growth on Toes -Temperature of Extremity -Other Deformity -Prior Foot Ulcer -Charcot Joint -Prior Amputation -Thick -Discolored -Deformed -Improper Length & Hygeine Neuropathy Assessment Feet - Top Side and Bottom Communication Assessment Preferred professor of languages Required Able to Read Able to Write Communication Tools Right Hearing Abillity Left Hearing Abillity Visual Assistive Devices Teaching Assessment Preferences Barriers to Learning Readiness To Learn Willingness to Engage in Self Management Activies Readiness to Engage in Self Management Activities Anxiety Level Cooperation Perception Interest in Health Problem Education Importance Does Patient Smoke tobacco or other substances Smoking Status Is Patient Diabetic Functional Assessment Recent Decline in Ability to Perform 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 Cultural/Pentecostalism Needs that may affect Treatment Plan Teaching: Wound Center *Welcome to the [facility]ound Center -Person Taught -Teaching Method -Response to teaching Welcome to the [facility] (a) 1 - + WC - Nurse 1 - General Ulcer Measurement Start: 03/14/23 09:45 Freq: Status: Active Protocol: Activity Type Activity Date Activity User E-sign Co-sign Detail Recorded Client Recorded Date Recorded By Document 03/14/23 10:25 [facility] Desktop 03/14/23 10:44 [facility] Document 03/17/23 11:34 Desktop 03/17/23 11:48 KW Document 03/21/23 10:16 RB Desktop 03/21/23 10:30 RB Document 03/24/23 13:42 RB Desktop 03/24/23 13:49 RB Document 03/28/23 10:18 RB Desktop 03/28/23 10:23 RB 03/14/23 03/17/23 03/21/23 10:25 11:34 10:16 Wound Center Nurse 1 #11- L LAT LE CLUSTER -Combined with other wound No No -Current Size (cm) - Length 6 10.0 0.1 -Current Size (cm) - Width 3 1.5 0.1 -Current Size (cm) - Depth 0.1 0.1 0.1 -Total Square Cm 18 15.00 0.01 -Date of Last Picture (Recall this 03/14/23 field) -Photo Taken Yes -Epithelialization None Present -Tunneling No No -Undermining/Tunneling No No -Circular Undermining No No -Exudate Amt Medium Medium Small -Exudate Type Serosanguineous Serosanguineous Sanguineous -Wound Margin Distinct, Distinct, Distinct, Outline Outline Outline Attached Attached Attached -Granulation Amt Large (67-100%) Large (67-100%) Medium (34-66%) -Granulation Quality Red Red Hallett -Slough/Fibrin No Yes -Necrosis Amt None Present (0 Small (1-33%) %) -Necrotic Tissue Type Adherent Slough -Structure Exposed N/A -Texture (Leslye-wound Skin Appearance) Assessed, Assessed Assessed Scarring -Moisture (Leslye-wound Skin Appearance) Assessed,Dry/ Assessed, Assessed Scaly Weeping -Color (Leslye-wound Skin Appearance) Assessed, Assessed, Assessed Erythema Erythema -Temperature (Leslye-wound Skin No Abnormality No Abnormality No Abnormality Appearance) (Pt Warm) (Pt Warm) (Pt Warm) -Tenderness on Palpation (Leslye-wound No No Skin Appearance) -Ulcer Cleansing Rinsed/ Soap and Water Wound Cleanser Irrigated with Saline -Foul Odor after Cleansing No No -Anesthetic Used 5% Lidocaine Gel #10 L MED LE (TRAUMA) -Combined with other wound No No -Current Size (cm) - Length 1.6 1.3 1.7 -Current Size (cm) - Width 2 1.2 1.9 -Current Size (cm) - Depth 0.1 0.2 0.1 -Total Square Cm 3.2 1.56 3.23 -Date of Last Picture (Recall this 03/14/23 field) -Photo Taken Yes -Epithelialization None Present -Tunneling No No -Undermining/Tunneling No No -Circular Undermining No No -Exudate Amt Medium Medium Medium -Exudate Type Serosanguineous Serosanguineous Serosanguineous -Wound Margin Distinct, Distinct, Distinct, Outline Outline Outline Attached Attached Attached -Granulation Amt Large (67-100%) Large (67-100%) Medium (34-66%) -Granulation Quality Red Red Hallett -Slough/Fibrin No Yes -Necrosis Amt None Present (0 Medium (34-66%) %) -Necrotic Tissue Type Adherent Slough -Structure Exposed N/A -Texture (Leslye-wound Skin Appearance) Assessed, Assessed, Assessed Scarring Localized Edema -Moisture (Leslye-wound Skin Appearance) Assessed,Dry/ Assessed, Assessed Scaly Weeping -Color (Leslye-wound Skin Appearance) Assessed, Assessed, Assessed, Erythema Erythema Hemosiderin Staining -Temperature (Leslye-wound Skin No Abnormality No Abnormality No Abnormality Appearance) (Pt Warm) (Pt Warm) (Pt Warm) -Tenderness on Palpation (Leslye-wound No No Skin Appearance) -Ulcer Cleansing Rinsed/ Soap and Water Wound Cleanser Irrigated with Saline -Foul Odor after Cleansing No Yes -Anesthetic Used 5% Lidocaine 5% Lidocaine Gel Gel Lower Limb Edema Present Yes Yes Right Calf (cm) 48.2 47.5 Right Ankle (cm) 30.3 28.2 Left Calf (cm) 52.7 52.3 Left Ankle (cm) 24.7 25.5 03/24/23 03/28/23 13:42 10:18 Wound Center Nurse 1 #11- L LAT LE CLUSTER -Combined with other wound -Current Size (cm) - Length -Current Size (cm) - Width -Current Size (cm) - Depth -Total Square Cm -Date of Last Picture (Recall this field) -Photo Taken -Epithelialization -Tunneling -Undermining/Tunneling -Circular Undermining -Exudate Amt -Exudate Type -Wound Margin -Granulation Amt -Granulation Quality -Slough/Fibrin -Necrosis Amt -Necrotic Tissue Type -Structure Exposed -Texture (Leslye-wound Skin Appearance) -Moisture (Leslye-wound Skin Appearance) -Color (Leslye-wound Skin Appearance) -Temperature (Leslye-wound Skin Appearance) -Tenderness on Palpation (Leslye-wound Skin Appearance) -Ulcer Cleansing -Foul Odor after Cleansing -Anesthetic Used #10 L MED LE (TRAUMA) -Combined with other wound No -Current Size (cm) - Length 2 -Current Size (cm) - Width 2.1 -Current Size (cm) - Depth 0.1 -Total Square Cm 4.2 -Date of Last Picture (Recall this field) -Photo Taken -Epithelialization -Tunneling No -Undermining/Tunneling No -Circular Undermining No -Exudate Amt Medium -Exudate Type Serosanguineous -Wound Margin Distinct, Outline Attached -Granulation Amt Medium (34-66%) -Granulation Quality Hallett -Slough/Fibrin Yes -Necrosis Amt Medium (34-66%) -Necrotic Tissue Type Adherent Slough -Structure Exposed N/A -Texture (Leslye-wound Skin Appearance) Assessed -Moisture (Leslye-wound Skin Appearance) Assessed -Color (Leslye-wound Skin Appearance) Hemosiderin Staining -Temperature (Leslye-wound Skin No Abnormality Appearance) (Pt Warm) -Tenderness on Palpation (Leslye-wound No Skin Appearance) -Ulcer Cleansing Wound Cleanser -Foul Odor after Cleansing No -Anesthetic Used 5% Lidocaine Gel Lower Limb Edema Present Yes Yes Right Calf (cm) 44 44 Right Ankle (cm) 28.6 28 Left Calf (cm) 49.5 47 Left Ankle (cm) 26.5 26.5 WC - Nurse 2 - General Ulcer CM Notes Start: 03/14/23 09:45 Freq: Status: Active Protocol: Activity Type Activity Date Activity User E-sign Co-sign Detail Recorded Client Recorded Date Recorded By Document 03/14/23 13:19 PL [id number] 03/14/23 13:21 PL Edit Result 03/14/23 13:19 PL (1) [id number] 03/15/23 07:27 PL Document 03/21/23 10:45 PL [id number] 03/22/23 07:02 PL (1) #10 L MED LE (TRAUMA) - Debridement, SubQ, ea addt'l 20sq cm => 1 or part thereof 03/14/23 03/21/23 13:19 10:45 Wound Center Nurse 2 #11- L LAT LE CLUSTER -Time 11:03 10:43 -Correct Patient Yes Yes -Correct Side, Site, Position Yes Yes -Correct Procedure Yes Yes -Procedure Performed Yes Yes -Type of Procedure Debridement Debridement -Clinical Debridement Subcutaneous Subcutaneous -Tissue Removed Subcutaneous Subcutaneous -Post Debridement (cm) - Length 6.0 0.1 -Post Debridement (cm) - Width 3.0 0.1 -Post Debridement (cm) - Depth 0.1 0.1 -Total Square (Post) (cm) 18.00 0.01 -Area of Debridement (cm) - Length 6.0 0.1 -Area of Debridement (cm) - Width 3.0 0.1 -Total Square (Area) (cm) 18.00 0.01 -Tunneling No No -Undermining/Tunneling No No -Circular Undermining No No -Wound/Ulcer Outcome Not Healed Not Healed -Ulcer Cleansing Rinsed/ Rinsed/ Irrigated with Irrigated with Saline Saline -Foul Odor after Cleansing No No -Bioengineered Tissue No No -Bleeding Controlled with Pressure Pressure -Treatment Response Procedure Procedure Tolerated Well Tolerated Well -Debridement - Subq, 1st 20sq cm No Yes #10 L MED LE (TRAUMA) -Time 11:03 -Correct Patient Yes -Correct Side, Site, Position Yes -Correct Procedure Yes -Procedure Performed Yes -Type of Procedure Debridement -Clinical Debridement Subcutaneous -Tissue Removed Subcutaneous -Post Debridement (cm) - Length 1.6 -Post Debridement (cm) - Width 2.0 -Post Debridement (cm) - Depth 0.1 -Total Square (Post) (cm) 3.20 -Area of Debridement (cm) - Length 1.6 -Area of Debridement (cm) - Width 2.0 -Total Square (Area) (cm) 3.20 -Tunneling No -Undermining/Tunneling No -Circular Undermining No -Wound/Ulcer Outcome Not Healed -Ulcer Cleansing Rinsed/ Irrigated with Saline -Foul Odor after Cleansing No -Bioengineered Tissue No -Bleeding Controlled with Pressure -Treatment Response Procedure Tolerated Well -Debridement - Subq, 1st 20sq cm Yes -Debridement, SubQ, ea addt'l 20sq cm 1 or part thereof Pain Scale: 0-10 Numeric Is Patient Pain Free? Yes Yes WC - Nurse 3 - General Ulcer D/C NN Start: 03/14/23 09:45 Freq: Status: Active Protocol: Activity Type Activity Date Activity User E-sign Co-sign Detail Recorded Client Recorded Date Recorded By Document 03/14/23 11:29 BMF Desktop 03/14/23 11:30 BMF Document 03/17/23 11:24 KW Desktop 03/17/23 11:34 KW Document 03/21/23 12:18 RB [id number] 03/21/23 12:19 RB Document 03/24/23 13:42 RB Desktop 03/24/23 13:49 RB Document 03/28/23 11:12 MW Desktop 03/28/23 11:13 MW 03/14/23 03/17/23 03/21/23 11:29 11:24 12:18 [facility] Nurse 3 #11- L LAT LE CLUSTER -Ulcer Cleansing Rinsed/ Irrigated with Saline -Foul Odor after Cleansing No -Primary Dressing Applied Optilok 6.5x10, Optilok 8x12 Promogran Promogran -Other Dressing unna boot abd -Primary Dressing Covered/Secured with Dry Gauze & Roll Gauze, Secured with Tape -Optilok 6.5x10 1 -Optilok 8x12 2 -Promogran 1 1 #10 L MED LE (TRAUMA) -Ulcer Cleansing Rinsed/ Irrigated with Saline -Foul Odor after Cleansing No -Negative Pressure Wound Therapy -Primary Dressing Applied Optilok 6.5x10, Promogran -Other Dressing unna boot -Primary Dressing Covered/Secured with -Optilok 6.5x10 1 -Promogran 0 ble -Lotion applied to leg before compression wrap -Multi-Layered Wrap Application Unna Boot - Unna Boot - Unna Boot - Bilateral ($) Bilateral ($) Bilateral ($) Treatment Response Procedure Procedure Tolerated Well Tolerated Well Vital Signs Temperature (97.8 F-99.1 F) Temperature Source Pulse Rate (60-100) Pulse Location Respiratory Rate (12-18) Respiratory rate source Blood Pressure (90/60-120/80) Blood Pressure Mean Source Position Blood Pressure Location Pain Scale: 0-10 Numeric Is Patient Pain Free? Yes Yes Yes Teaching: Wound Center Compression Wraps & Stockings -Person Taught -Teaching Method -Response to teaching WC - Visit Discharge Discharge Condition Stable Stable Stable Ambulatory Status Ambulatory Ambulatory,Cane Ambulatory Transportation Private Auto Private Auto Private Auto Accompanied by Medication Reconcilliation completed & No No provided to patient/care provider Clinical Summary of Care Provided Yes Yes 03/24/23 03/28/23 13:42 11:12 Wound Care Center Nurse 3 #11- L LAT LE CLUSTER -Ulcer Cleansing Rinsed/ Irrigated with Saline -Foul Odor after Cleansing -Primary Dressing Applied Promogran -Other Dressing abd pad -Primary Dressing Covered/Secured with -Optilok 6.5x10 -Optilok 8x12 -Promogran 1 #10 L MED LE (TRAUMA) -Ulcer Cleansing Rinsed/ Irrigated with Saline -Foul Odor after Cleansing No -Negative Pressure Wound Therapy N/A -Primary Dressing Applied -Other Dressing promogran promogran -Primary Dressing Covered/Secured with Dry Gauze -Optilok 6.5x10 -Promogran ble -Lotion applied to leg before No compression wrap -Multi-Layered Wrap Application Unna Boot - Multi-Layer Bilateral ($) Comp - Bilat ($ ) Treatment Response Procedure Procedure Tolerated Well Tolerated Well Vital Signs Temperature (97.8 F-99.1 F) 97.1 F L Temperature Source Temporal Pulse Rate (60-100) 76 Pulse Location Monitor Respiratory Rate (12-18) 18 Respiratory rate source Observation Blood Pressure (90/60-120/80) 181/66 H Blood Pressure Mean 104 Source Monitor Position Semi-Fowlers Blood Pressure Location Left Arm Pain Scale: 0-10 Numeric Is Patient Pain Free? Yes Yes Teaching: Wound Center Compression Wraps & Stockings -Person Taught Patient -Teaching Method Discussion, Demonstration -Response to teaching Verbalize understanding WC - Visit Discharge Discharge Condition Stable Stable Ambulatory Status Ambulatory Ambulatory,Cane Transportation Private Auto Private Auto Accompanied by self Medication Reconcilliation completed & No No provided to patient/care provider Clinical Summary of Care Provided Yes Yes Assessment/Plan Assessment/Plan (1) Leg wound, left: CODE(S): S81.802A - Unspecified open wound, left lower leg, initial encounter QUALIFIERS: Encounter type: initial encounter Qualified Code(s): S81.802A - Unspecified open wound, left lower leg, initial encounter (2) Venous hypertension, chronic, with inflammation: CODE(S): I87.329 - Chronic venous hypertension (idiopathic) with inflammation of unspecified lower extremity QUALIFIERS: Laterality: bilateral Qualified Code(s): I87.323 - Chronic venous hypertension (idiopathic) with inflammation of bilateral lower extremity (3) Chronic venous insufficiency: CODE(S): I87.2 - Venous insufficiency (chronic) (peripheral) (4) Chronic ulcer of left lower extremity: CODE(S): L97.929 - Non-pressure chronic ulcer of unspecified part of left lower leg with unspecified severity QUALIFIERS: Non-pressure ulcer stage: with fat layer exposed Qualified Code(s): L97.922 - Non-pressure chronic ulcer of unspecified part of left lower leg with fat layer exposed (5) Right leg DVT: CODE(S): I82.401 - Acute embolism and thrombosis of unspecified deep veins of right lower extremity QUALIFIERS: Affected thrombotic vein of extremity: calf muscle vein (6) Left leg DVT: CODE(S): I82.402 - Acute embolism and thrombosis of unspecified deep veins of left lower extremity QUALIFIERS: Affected thrombotic vein of extremity: calf muscle vein (7) Nodular goiter: CODE(S): E04.9 - Nontoxic goiter, unspecified (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: CODE(S): E11.59 - Type 2 diabetes mellitus with other circulatory complications (9) Umbilical hernia without obstruction or gangrene: CODE(S): K42.9 - Umbilical hernia without obstruction or gangrene (10) Pure hypercholesterolemia: CODE(S): E78.00 - Pure hypercholesterolemia, unspecified (11) Essential hypertension: CODE(S): I10 - Essential (primary) hypertension (12) GERD (gastroesophageal reflux disease): CODE(S): K21.9 - Gastro-esophageal reflux disease without esophagitis (13) Hiatal hernia: CODE(S): K44.9 - Diaphragmatic hernia without obstruction or gangrene (14) Osteoarthritis: CODE(S): M19.90 - Unspecified osteoarthritis, unspecified site (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 She has pre-existing severe lower extremity venous disease, with longstanding swelling and edema in her lower extremities, associated with venous stasis dermatitis and inflammatory erythema. Debridement has been performed [facility] today. Conservative treatment measures have been discussed with the patient thoroughly. The patient has been encouraged to sleep on a flat surface at night, rather than a recliner. Leg elevation has been encouraged to heart level, or higher. Leg elevation is to be implemented during daytime hours is much as possible. Activity has been encouraged. Prolonged idle sitting has been discouraged. We are to continue the use of Promogran topically on the traumatic wound on the left pretibial surface. We are to implement compression to the lower extremities by means of 3M 2 layer compression wraps, which will be applied bilaterally, and changed twice weekly. The patient has been encouraged to enhance her efforts at leg elevation and avoidance of idle sitting. The patient is to return in 1 week for reevaluation. Total time: 24 minutes
[2023-03-31 12:58] VITALS: BP 180/64; PULSE 67; RESP 18; TEMP 36.6
[2023-04-04 11:24] VITALS: BP 172/55; PULSE 66; RESP 18; TEMP 36; BMI 37.4
== END 2023-04-04 23:59 | disposition home or self-care (01) ==
LOC: WC 13:00
PROVIDERS: PCP Nurse Practitioner Family; Referring Provider Nurse Practitioner Family; Visit Provider Surgery
DX: I87.323 Chronic venous hypertension (idiopathic) with inflammation of bilateral lower extremity (principal); E11.51 Type 2 diabetes mellitus with diabetic peripheral angiopathy without gangrene; L97.922 Non-pressure chronic ulcer of unspecified part of left lower leg with fat layer exposed; E11.40 Type 2 diabetes mellitus with diabetic neuropathy, unspecified; E11.59 Type 2 diabetes mellitus with other circulatory complications; E11.610 Type 2 diabetes mellitus with diabetic neuropathic arthropathy; I82.403 Acute embolism and thrombosis of unspecified deep veins of lower extremity, bilateral; K44.9 Diaphragmatic hernia without obstruction or gangrene; E78.00 Pure hypercholesterolemia, unspecified; R60.0 Localized edema; I87.2 Venous insufficiency (chronic) (peripheral); E04.9 Nontoxic goiter, unspecified; F41.9 Anxiety disorder, unspecified; E66.09 Other obesity due to excess calories; Z68.37 Body mass index [BMI] 37.0-37.9, adult; K21.9 Gastro-esophageal reflux disease without esophagitis; I25.10 Atherosclerotic heart disease of native coronary artery without angina pectoris; K42.9 Umbilical hernia without obstruction or gangrene; I83.90 Asymptomatic varicose veins of unspecified lower extremity; M19.90 Unspecified osteoarthritis, unspecified site; S81.802A Unspecified open wound, left lower leg, initial encounter; M79.3 Panniculitis, unspecified
CPT/HCPCS: 11042; 11045; 29580; 29581; 99213; G0463

== ENCOUNTER 2023-04-25 10:30 | Outpatient (RCR) | payer MEDICARE, OTHER, SELFPAY ==
[2023-04-05 00:52] VITALS: BP 172/55; PULSE 66; RESP 18; TEMP 36; BMI 37.4
[2023-04-11 10:33] VITALS: BP 176/56; PULSE 76; TEMP 35.8; BMI 37.4
--- NOTE | 2023-04-11 13:28 | PCM.WC.HP ---
History of Present Illness Date of Service: 04/11/23 Chief Complaint: Traumatic wound of the left lower extremity History of Wound: This is an 82-year-old female with a longstanding history of chronic venous disease. She suffers from chronic swelling and edema in her lower extremities bilaterally. She has a long history of venous stasis dermatitis in the gaiter areas bilaterally. In late January 2023, while in the grocery store, the patient reached for a milk carton, which fell and impacted the left pretibial surface. A wound resulted, which has failed to heal until the current time. The patient is currently treated with systemic anticoagulation for bilateral lower extremity deep vein thrombosis. She spends a good part of each night sleeping in a recliner. She is not very active. She spends long periods each day in a sitting position. She is also obese. She has a history of lower extremity thrombophlebitis. The patient has had ulcers in the distal left lower extremity in the past, [facility]. A noninvasive lower extremity arterial study performed in November 2020 revealed no evidence of significant arterial occlusive disease. [facility] Medical History (Updated 04/11/23 @ 13:[address] 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 Back pain Cardiology follow-up encounter Cataract Cellulitis of left leg Choledocholithiasis Chronic ulcer of left lower extremity Chronic venous hypertension (idiopathic) with inflammation of bilateral lower extremity Chronic venous hypertension (idiopathic) with ulcer of left lower extremity Chronic venous insufficiency Chronic venous stasis dermatitis Decubitus ulcer of left buttock, stage 2 Diabetes DVT (deep venous thrombosis) Edema leg Edema of both legs Essential hypertension Failure to thrive Gastric reflux Generalized weakness GERD (gastroesophageal reflux disease) GI bleed Heel spur Hiatal hernia Hiatal hernia History of bleeding ulcers history of cellulitis of leg History of echocardiogram History of edema History of hiatal hernia History of stress test History of ulceration Hx of venous thrombosis and embolism Hyperpigmentation of skin Hypertension Hypertension Kidney disease Leg swelling Leg wound, left Lipodermatosclerosis Localized edema Loss of consciousness Lymphedema of left leg Lymphedema of right lower extremity Nausea Nodular goiter 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 Non-smoker Obesity Osteoarthritis Osteoporosis Palpitations Peripheral arterial disease Positional vertigo Post-menopausal Post-phlebitic dermatosis of both lower extremities Pressure ulcer of right buttock, stage 3 Pure hypercholesterolemia Shortness of breath on exertion Sludge in gallbladder Ulcer Venous hypertension, chronic, with inflammation Venous stasis ulcer Wears dentures Home Medications irbesartan 75 mg tablet 75 mg PO DAILY blood pressure 01/15/17 [History Last Taken 08/16/21] potassium chloride 10 mEq capsule,extended release 10 meq PO PRN PRN HYPOKALEMIA 10/11/19 [History Last Taken 12/21/20] torsemide 20 mg tablet 10 mg PO DAILY PRN PRN Edema 12/21/20 [History Last Taken 12/21/20] famotidine 20 mg tablet 20 mg PO BID 30 days #60 tabs 05/24/21 [Rx Last Taken Unknown] meclizine 25 mg tablet 25 mg PO DAILY PRN Vertigo 08/12/21 [History Last Taken Unknown] ursodiol 250 mg tablet 250 mg PO DAILY 30 days #30 tabs 04/14/22 [Rx Last Taken Unknown] rivaroxaban 10 mg tablet (Xarelto) 10 mg PO DAILY #30 tabs 12/01/22 [Rx Last Taken Unknown] hydroxyzine HCl 10 mg tablet 10 mg PO TID PRN itching 03/14/23 [History Last Taken Unknown] Allergy/AdvReac Type Severity Reaction Status Date / Time neomycin sulfate Allergy Severe Itching Verified 03/14/23 10:48 [From Neosporin ([id number])] cefdinir Allergy Other Verified 03/14/23 10:48 ezetimibe [From Zetia] Allergy Itching Verified 03/14/23 10:48 lisinopril Allergy cough Verified 03/14/23 10:48 neomycin [Neomycin] Allergy gets in Verified 03/14/23 10:48 blood stream and pass out polymyxin B [Polymyxin B] Allergy Unknown Verified 03/14/23 10:48 Sulfa (Sulfonamide Allergy Unknown Verified 03/14/23 10:48 Antibiotics) tetracycline [Tetracycline] Allergy Itching Verified 03/14/23 10:48 adhesive tape AdvReac Severe pulls Verified 03/14/23 10:48 skin cephalexin AdvReac Mild Other Verified 03/14/23 10:48 atorvastatin calcium AdvReac Pain in Verified 03/14/23 10:48 [From Lipitor] joints, muscle damage Family History Mother CAD (coronary artery disease) Myocardial infarction Son Hypertension Brother Aortic aneurysm Father Diabetes Heart disease Other Arthritis Bleeding disorder Blood clot in vein Bowel disease H/O ulcer disease Osteoporosis Severe allergy Surgical History H/O dilation and curettage history excision heel spur right foot History of cataract surgery History of cholecystectomy History of ERCP History of hernia repair History of left heart catheterization History of tubal ligation Lipoma Rectal fistula Social History household members: none housing: house current occupational status: employed Smoking Status: Never smoker alcohol intake: never substance use type: does not use caffeine: Yes Type: coffee Number of servings: 1 what type of physical activity do you participate in: none seatbelt use: always do you feel safe at home: Yes Vital Signs Vital Signs Vital Signs: 04/11/23 10:33 Temperature 96.5 F L Temperature Source Temporal Pulse Rate 76 Blood Pressure 176/56 H Blood Pressure Mean 96 Blood Pressure Source Monitor Blood Pressure Position Sitting Blood Pressure Location Left Arm Oxygen Delivery Method Room Air Weight Weight: 173 lb Body Mass Index (BMI) 37.4 Physical Exam Const alert, oriented x3, no apparent distress and well nourished Constitutional Narrative: The patient is obese, with a BMI of 37.4. General Appearance: cooperative, comfortable, well kempt and well developed Orientation / Consciousness: awake, oriented to person, oriented to place and oriented to time HEENT normocephalic, head/scalp atraumatic and hearing grossly normal bilaterally Head and Scalp: normal to inspection, normocephalic and atraumatic External Ear: external ears normal Eyes PERRL and EOMs intact bilaterally General Eye: normal appearance of both eyes Resp normal respiratory effort, normal air movement, no retractions and no use of accessory muscles Effort and Inspection: able to speak in complete sentences Extremity no calf tenderness General Extremity: Negative for clubbing or cyanosis Skin Wound Narrative: A traumatic wound is noted on the left pretibial surface. It appears to be slightly smaller in size, and is generally pink and healthy in appearance. Dimensions are documented elsewhere. Moderate swelling and edema are noted in the patient's lower extremities bilaterally, with mild bilateral lymphedema.. Venous stasis dermatitis is noted bilaterally in the gaiter areas, associated with a mild inflammatory erythema. But for the traumatic wound, there are no keya open ulcerations. There is no sign of infection or cellulitis. The wound demonstrates a small amount of bioburden and nonviable tissue. A rather diffuse ecchymosis is noted in the left gaiter area, the etiology of which is uncertain. Neuro oriented x3, CN's II-XII intact bilaterally, moves all extremities and no focal motor deficits Sensorium / Orientation: awake, alert, oriented to person, oriented to place and oriented to time Psych Appearance: grossly normal and appropriate Attitude: calm Activity / Motor Behavior: appropriate eye contact Speech: normal speech Mood & Affect: euthymic mood Thought Process: normal thought process Thought Content: normal thought content Attention / Concentration: attention grossly intact Debridement Note Debridement Note Wound debrided: Left pretibial traumatic wound Laterality: Left Type of Debridement: Excisional debridement Anesthesia Used: 5% Lidocaine Gel Depth: Down to and including healthy tissue and in the subcutaneous layer Percentage of wound debrided: 100 Instrument Used: 5mm curette Tissue Removed: Bioburden and nonviable tissue Severity: Fat Layer Exposed Amount of bleeding with debridement: Mild Bleeding Controlled with: Compression and gauze Patient tolerated procedure: Patient tolerated procedure well Post-Debridement Measurements and Additional Note: Post-Debridement Measurements/Treatment - Nurse 1 - General Ulcer Assessment Start: 04/11/23 10:32 Freq: Status: Active Protocol: .LOWVANDA Activity Type Activity Date Activity User E-sign Co-sign Detail Recorded Client Recorded Date Recorded By Document 04/11/23 10:33 Desktop 04/11/23 10:43 04/11/23 10:33 - Today's Visit Information Type of service Follow-up Visit (Physician/[employer] ) Arrival Mode Ambulatory,Cane Transfer Assistance None Patient Identification Verified (Name & Yes ) Patient Requires Transmission-Based No Precautions Safety Precautions Fall Prevention Height and Weight Body Mass Index (BMI) 37.4 BMI Classification Obese Vital Signs Temperature (97.8 F-99.1 F) 96.5 F L Temperature Source Temporal Pulse Rate (60-100) 76 Pulse Location Monitor Oxygen Delivery Method Room Air Blood Pressure (90/60-120/80) 176/56 H Blood Pressure Mean 96 Source Monitor Position Sitting Blood Pressure Location Left Arm History Since Last Visit- (Skip if this is Patient's initial visit) Have you changed medications since your No last visit? Any new allergies or adverse reactions No Had a fall/change in ADL's that may No increase risk of falls Signs or symptoms of abuse and/or No neglect since last visit Have you been in the hospital since your No last visit? Has dressing in place as prescribed Yes Has compression in place as prescribed Yes Has offloadiing in place as prescribed No Experienced any changes in pain level or No management Pain Scale: 0-10 Numeric Is Patient Pain Free? Yes WC - Nurse 1 - General Ulcer Measurement Start: 04/11/23 10:32 Freq: Status: Active Protocol: Activity Type Activity Date Activity User E-sign Co-sign Detail Recorded Client Recorded Date Recorded By Document 04/11/23 10:33 Desktop 04/11/23 10:43 04/11/23 10:33 Wound Center Nurse 1 #11- L LAT LE CLUSTER -Current Size (cm) - Length 1.0 -Current Size (cm) - Width 0.6 -Current Size (cm) - Depth 0.1 -Total Square Cm 0.60 -Photo Taken No -Epithelialization Small 1-33% -Tunneling No -Undermining/Tunneling No -Circular Undermining No -Wound Margin Distinct, Outline Attached -Granulation Amt Medium (34-66%) -Granulation Quality Red -Necrosis Amt Small (1-33%) -Necrotic Tissue Type Adherent Slough -Structure Exposed N/A -Texture (Leslye-wound Skin Appearance) Assessed -Moisture (Leslye-wound Skin Appearance) Assessed -Color (Leslye-wound Skin Appearance) Assessed -Temperature (Leslye-wound Skin No Abnormality Appearance) (Pt Warm) -Tenderness on Palpation (Leslye-wound No Skin Appearance) -Ulcer Cleansing Not Cleansed -Foul Odor after Cleansing No -Wound Comment(s) she washed her legs before coming, and had zinc cream on them #10 L MED LE (TRAUMA) -Current Size (cm) - Length 1.0 -Current Size (cm) - Width 1.2 -Current Size (cm) - Depth 0.1 -Total Square Cm 1.20 -Photo Taken No -Epithelialization Small 1-33% -Tunneling No -Undermining/Tunneling No -Circular Undermining No -Wound Margin Distinct, Outline Attached -Granulation Amt Medium (34-66%) -Granulation Quality Red -Necrosis Amt Small (1-33%) -Necrotic Tissue Type Adherent Slough -Structure Exposed N/A -Texture (Leslye-wound Skin Appearance) Assessed -Moisture (Leslye-wound Skin Appearance) Assessed -Color (Leslye-wound Skin Appearance) Assessed -Temperature (Leslye-wound Skin No Abnormality Appearance) (Pt Warm) -Tenderness on Palpation (Leslye-wound No Skin Appearance) -Ulcer Cleansing Not Cleansed Right Calf (cm) 26.5 Right Ankle (cm) 45.0 Left Calf (cm) 26.4 Left Ankle (cm) 46 - Nurse 3 - General Ulcer D/C NN Start: 04/11/23 10:32 Freq: Status: Active Protocol: Activity Type Activity Date Activity User E-sign Co-sign Detail Recorded Client Recorded Date Recorded By Document 04/11/23 11:19 Desktop 04/11/23 11:21 04/11/23 11:19 W[facility] Center Nurse 3 #11- L LAT LE CLUSTER -Ulcer Cleansing Rinsed/ Irrigated with Saline -Primary Dressing Applied Mepilex Border, Promogran -Mepilex Border 1 -Promogran 1 #10 L MED LE (TRAUMA) -Primary Dressing Applied Mepilex Border -Other Dressing promogran -Mepilex Border 1 Right -Tubular Bandage Double Layer -Size of Tubigrip Used Size E -Size E ($) 4 Left -Tubular Bandage Double Layer -Size of Tubigrip Used Size E -Size E ($) 4 Treatment Response Procedure Tolerated Well Pain Scale: 0-10 Numeric Is Patient Pain Free? Yes - Visit Discharge Discharge Condition Stable Ambulatory Status Ambulatory Transportation Private Auto Medication Reconcilliation completed & No provided to patient/care provider Clinical Summary of Care Provided Yes Assessment/Plan Assessment/Plan (1) Leg wound, left: CODE(S): S81.802A - Unspecified open wound, left lower leg, initial encounter QUALIFIERS: Encounter type: subsequent encounter Qualified Code(s): S81.802D - Unspecified open wound, left lower leg, subsequent encounter (2) Venous hypertension, chronic, with inflammation: CODE(S): I87.329 - Chronic venous hypertension (idiopathic) with inflammation of unspecified lower extremity QUALIFIERS: Laterality: bilateral Qualified Code(s): I87.323 - Chronic venous hypertension (idiopathic) with inflammation of bilateral lower extremity (3) Chronic venous insufficiency: CODE(S): I87.2 - Venous insufficiency (chronic) (peripheral) (4) Chronic ulcer of left lower extremity: CODE(S): L97.929 - Non-pressure chronic ulcer of unspecified part of left lower leg with unspecified severity QUALIFIERS: Non-pressure ulcer stage: with fat layer exposed Qualified Code(s): L97.922 - Non-pressure chronic ulcer of unspecified part of left lower leg with fat layer exposed (5) Right leg DVT: CODE(S): I82.401 - Acute embolism and thrombosis of unspecified deep veins of right lower extremity QUALIFIERS: Affected thrombotic vein of extremity: calf muscle vein (6) Left leg DVT: CODE(S): I82.402 - Acute embolism and thrombosis of unspecified deep veins of left lower extremity QUALIFIERS: Affected thrombotic vein of extremity: calf muscle vein (7) Lymphedema of left leg: CODE(S): I89.0 - Lymphedema, not elsewhere classified (8) Lymphedema of right lower extremity: CODE(S): I89.0 - Lymphedema, not elsewhere classified (9) Nodular goiter: CODE(S): E04.9 - Nontoxic goiter, unspecified (10) Type 2 diabetes mellitus with other circulatory complications: CODE(S): E11.59 - Type 2 diabetes mellitus with other circulatory complications (11) Umbilical hernia without obstruction or gangrene: CODE(S): K42.9 - Umbilical hernia without obstruction or gangrene (12) Pure hypercholesterolemia: CODE(S): E78.00 - Pure hypercholesterolemia, unspecified (13) Essential hypertension: CODE(S): I10 - Essential (primary) hypertension (14) GERD (gastroesophageal reflux disease): CODE(S): K21.9 - Gastro-esophageal reflux disease without esophagitis (15) Hiatal hernia: CODE(S): K44.9 - Diaphragmatic hernia without obstruction or gangrene (16) Osteoarthritis: CODE(S): M19.90 - Unspecified osteoarthritis, unspecified site (17) Atherosclerotic heart disease of [place] coronary artery without angina pectoris: CODE(S): I25.10 - Atherosclerotic heart disease of [place] coronary artery without angina pectoris QUALIFIERS: [place] vs. transplanted heart: [place] heart Qualified Code(s): I25.10 - Atherosclerotic heart disease of [place] coronary artery without angina pectoris (18) Obesity: CODE(S): E66.9 - Obesity, unspecified QUALIFIERS: Obesity type: due to excess calories Obesity classification: unspecified obesity classification Serious obesity comorbidity presence: unspecified whether serious comorbidity present Qualified Code(s): E66.09 - Other obesity due to excess calories (19) Leg swelling: CODE(S): M79.89 - Other specified soft tissue disorders (20) Edema leg: CODE(S): R60.0 - Localized edema (21) Post-phlebitic dermatosis of both lower extremities: CODE(S): I87.093 - Postthrombotic syndrome with other complications of bilateral lower extremity (22) Lipodermatosclerosis: CODE(S): I83.10 - Varicose veins of unspecified lower extremity with inflammation QUALIFIERS: Laterality: bilateral Qualified Code(s): M79.3 - Panniculitis, unspecified PLAN: Plan This is an 82-year-old female who presented with a traumatic wound on the left pretibial surface. She has pre-existing severe lower extremity venous disease, with longstanding swelling and edema in her lower extremities, associated with venous stasis dermatitis and inflammatory erythema. [facility]. Conservative treatment measures have been discussed with the patient thoroughly. The patient has been encouraged to sleep on a flat surface at night, rather than a recliner. Leg elevation has been encouraged to heart level, or higher. Leg elevation is to be implemented during daytime hours is much as possible. Activity has been encouraged. Prolonged idle sitting has been discouraged. We are to continue the use of Promogran topically, which will be applied by the patient on a daily basis. The patient has been instructed in the appropriate means of application. Compression is to be applied daily by the use of double Tubigrip's. These are to be donned in the morning, and doffed at bedtime each day. The patient has been encouraged to enhance her efforts at leg elevation and avoidance of idle sitting. The patient is to return in 1 week for reevaluation. We are to seek preauthorization for the use of pneumatic mechanical compression pumps to the lower extremities. Total time: 26 minutes
[2023-04-18 10:24] VITALS: BP 194/67; PULSE 65; RESP 18; TEMP 35.7; BMI 37.4
--- NOTE | 2023-04-18 11:54 | HP.PCM_ITS ---
History of Present Illness Date of Service: 04/18/23 Chief Complaint: Traumatic wound of the left lower extremity History of Wound: This is an 82-year-old female with a longstanding history of chronic venous disease. She suffers from chronic swelling and edema in her lower extremities bilaterally. She has a long history of venous stasis dermatitis in the gaiter areas bilaterally. In late January 2023, while in the grocery store, the patient reached for a milk carton, which fell and impacted the left pretibial surface. A wound resulted, which has failed to heal until the current time. The patient is currently treated with systemic anticoagulation for bilateral lower extremity deep vein thrombosis. She spends a good part of each night sleeping in a recliner. She is not very active. She spends long periods each day in a sitting position. She is also obese. She has a history of lower extremity thrombophlebitis. The patient has had ulcers in the distal left lower extremity in the past, treated at [facility]. A noninvasive lower extremity arterial study performed in November 2020 revealed no evidence of significant arterial occlusive disease. 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 Back pain Cardiology follow-up encounter Cataract Cellulitis of left leg Choledocholithiasis Chronic ulcer of left lower extremity Chronic venous hypertension (idiopathic) with inflammation of bilateral lower extremity Chronic venous hypertension (idiopathic) with ulcer of left lower extremity Chronic venous insufficiency Chronic venous stasis dermatitis Decubitus ulcer of left buttock, stage 2 Diabetes DVT (deep venous thrombosis) Edema leg Edema of both legs Essential hypertension Failure to thrive Gastric reflux Generalized weakness GERD (gastroesophageal reflux disease) GI bleed Heel spur Hiatal hernia Hiatal hernia History of bleeding ulcers history of cellulitis of leg History of echocardiogram History of edema History of hiatal hernia History of stress test History of ulceration Hx of venous thrombosis and embolism Hyperpigmentation of skin Hypertension Hypertension Kidney disease Leg swelling Leg wound, left Lipodermatosclerosis Localized edema Loss of consciousness Lymphedema of left leg Lymphedema of right lower extremity Nausea Nodular goiter 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 Non-smoker Obesity Osteoarthritis Osteoporosis Palpitations Peripheral arterial disease Positional vertigo Post-menopausal Post-phlebitic dermatosis of both lower extremities Pressure ulcer of right buttock, stage 3 Pure hypercholesterolemia Shortness of breath on exertion Sludge in gallbladder Ulcer Venous hypertension, chronic, with inflammation Venous stasis ulcer Wears dentures Home Medications irbesartan 75 mg tablet 75 mg PO DAILY blood pressure 01/15/17 [History Last Taken 08/16/21] potassium chloride 10 mEq capsule,extended release 10 meq PO PRN PRN HYPOKALEMIA 10/11/19 [History Last Taken 12/21/20] torsemide 20 mg tablet 10 mg PO DAILY PRN PRN Edema 12/21/20 [History Last Taken 12/21/20] famotidine 20 mg tablet 20 mg PO BID 30 days #60 tabs 05/24/21 [Rx Last Taken Unknown] meclizine 25 mg tablet 25 mg PO DAILY PRN Vertigo 08/12/21 [History Last Taken Unknown] ursodiol 250 mg tablet 250 mg PO DAILY 30 days #30 tabs 04/14/22 [Rx Last Taken Unknown] rivaroxaban 10 mg tablet (Xarelto) 10 mg PO DAILY #30 tabs 12/01/22 [Rx Last Taken Unknown] hydroxyzine HCl 10 mg tablet 10 mg PO TID PRN itching 03/14/23 [History Last Taken Unknown] Allergy/AdvReac Type Severity Reaction Status Date / Time neomycin sulfate Allergy Severe Itching Verified 03/14/23 10:48 [From Neosporin ([id number])] cefdinir Allergy Other Verified 03/14/23 10:48 ezetimibe [From Zetia] Allergy Itching Verified 03/14/23 10:48 lisinopril Allergy cough Verified 03/14/23 10:48 neomycin [Neomycin] Allergy gets in Verified 03/14/23 10:48 blood stream and pass out polymyxin B [Polymyxin B] Allergy Unknown Verified 03/14/23 10:48 Sulfa (Sulfonamide Allergy Unknown Verified 03/14/23 10:48 Antibiotics) tetracycline [Tetracycline] Allergy Itching Verified 03/14/23 10:48 adhesive tape AdvReac Severe pulls Verified 03/14/23 10:48 skin cephalexin AdvReac Mild Other Verified 03/14/23 10:48 atorvastatin calcium AdvReac Pain in Verified 03/14/23 10:48 [From Lipitor] joints, muscle damage Family History Mother CAD (coronary artery disease) Myocardial infarction Son Hypertension Brother Aortic aneurysm Father Diabetes Heart disease Other Arthritis Bleeding disorder Blood clot in vein Bowel disease H/O ulcer disease Osteoporosis Severe allergy Surgical History H/O dilation and curettage history excision heel spur right foot History of cataract surgery History of cholecystectomy History of ERCP History of hernia repair History of left heart catheterization History of tubal ligation Lipoma Rectal fistula Social History household members: none housing: house current occupational status: employed Smoking Status: Never smoker alcohol intake: never substance use type: does not use caffeine: Yes Type: coffee Number of servings: 1 what type of physical activity do you participate in: none seatbelt use: always do you feel safe at home: Yes Vital Signs Vital Signs Vital Signs: 04/18/23 10:24 Temperature 96.3 F L Temperature Source Temporal Pulse Rate 65 Respiratory Rate 18 Blood Pressure 194/67 H Blood Pressure Mean 109 Blood Pressure Source Monitor Blood Pressure Position Semi-Fowlers Blood Pressure Location Left Arm Weight Weight: 173 lb Body Mass Index (BMI) 37.4 Physical Exam Const alert, oriented x3, no apparent distress and well nourished Constitutional Narrative: The patient is obese, with a BMI of 37.4. General Appearance: cooperative, comfortable, well kempt and well developed Orientation / Consciousness: awake, oriented to person, oriented to place and oriented to time HEENT normocephalic, head/scalp atraumatic and hearing grossly normal bilaterally Head and Scalp: normal to inspection, normocephalic and atraumatic External Ear: external ears normal Eyes PERRL and EOMs intact bilaterally General Eye: normal appearance of both eyes Resp normal respiratory effort, normal air movement, no retractions and no use of accessory muscles Effort and Inspection: able to speak in complete sentences Extremity no calf tenderness General Extremity: Negative for clubbing or cyanosis Skin Wound Narrative: A traumatic wound is noted on the left pretibial surface. It appears to be slightly smaller in size, and is generally pink and healthy in appearance. Dimensions are documented elsewhere. Moderate swelling and edema are noted in the patient's lower extremities bilaterally, with mild bilateral lymphedema. Venous stasis dermatitis is noted bilaterally in the gaiter areas, associated with a mild inflammatory erythema. Mild hyperpigmentation is noted in the left gaiter area. But for the traumatic wound, there are no keya open ulcerations. There is no sign of infection or cellulitis. The wound demonstrates a small amount of bioburden and nonviable tissue. Neuro oriented x3, CN's II-XII intact bilaterally, moves all extremities and no focal motor deficits Sensorium / Orientation: awake, alert, oriented to person, oriented to place and oriented to time Psych Appearance: grossly normal and appropriate Attitude: calm Activity / Motor Behavior: appropriate eye contact Speech: normal speech Mood & Affect: euthymic mood Thought Process: normal thought process Thought Content: normal thought content Attention / Concentration: attention grossly intact Debridement Note Debridement Note Wound debrided: Left pretibial traumatic wound Laterality: Left Type of Debridement: Excisional debridement Anesthesia Used: 5% Lidocaine Gel Depth: Down to and including healthy tissue and in the subcutaneous layer Percentage of wound debrided: 100 Instrument Used: 5mm curette Tissue Removed: Bioburden and nonviable tissue Severity: Fat Layer Exposed Amount of bleeding with debridement: Mild Bleeding Controlled with: Compression and gauze Patient tolerated procedure: Patient tolerated procedure well Post-Debridement Measurements and Additional Note: Post-Debridement Measurements/Treatment - Nurse 1 - General Ulcer Assessment Start: 04/11/23 10:32 Freq: Status: Active Protocol: .LOWVANDA Activity Type Activity Date Activity User E-sign Co-sign Detail Recorded Client Recorded Date Recorded By Document 04/11/23 10:33 Desktop 04/11/23 10:43 Document 04/18/23 10:24 Desktop 04/18/23 10:36 04/11/23 04/18/23 10:33 10:24 - Today's Visit Information Type of service Follow-up Visit Follow-up Visit (Physician/TELEGRAPH PLANT MAINTAINER (Physician/TELEGRAPH PLANT MAINTAINER ) ) Arrival Mode Ambulatory,Cane Ambulatory Transfer Assistance None None Patient Identification Verified (Name & Yes Yes ) Patient Requires Transmission-Based No No Precautions Safety Precautions Fall Prevention Height and Weight Body Mass Index (BMI) 37.4 37.4 BMI Classification Obese Obese Vital Signs Temperature (97.8 F-99.1 F) 96.5 F L 96.3 F L Temperature Source Temporal Temporal Pulse Rate (60-100) 76 65 Pulse Location Monitor Monitor Respiratory Rate (12-18) 18 Respiratory rate source Observation Oxygen Delivery Method Room Air Blood Pressure (90/60-120/80) 176/56 H 194/67 H Blood Pressure Mean 96 109 Source Monitor Monitor Position Sitting Semi-Fowlers Blood Pressure Location Left Arm Left Arm History Since Last Visit- (Skip if this is Patient's initial visit) Have you changed medications since your No No last visit? Any new allergies or adverse reactions No No Had a fall/change in ADL's that may No No increase risk of falls Signs or symptoms of abuse and/or No No neglect since last visit Have you been in the hospital since your No No last visit? Has dressing in place as prescribed Yes Yes Has compression in place as prescribed Yes Yes Has offloadiing in place as prescribed No No Experienced any changes in pain level or No No management Pain Scale: 0-10 Numeric Is Patient Pain Free? Yes Yes - Nurse 1 - General Ulcer Measurement Start: 04/11/23 10:32 Freq: Status: Active Protocol: Activity Type Activity Date Activity User E-sign Co-sign Detail Recorded Client Recorded Date Recorded By Document 04/11/23 10:33 Desktop 04/11/23 10:43 Document 04/18/23 10:24 Desktop 04/18/23 10:36 04/11/23 04/18/23 10:33 10:24 Wound Center Nurse 1 #11- L LAT LE CLUSTER -Combined with other wound No -Current Size (cm) - Length 1.0 0.1 -Current Size (cm) - Width 0.6 0.1 -Current Size (cm) - Depth 0.1 0.1 -Total Square Cm 0.60 0.01 -Photo Taken No -Epithelialization Small 1-33% -Tunneling No No -Undermining/Tunneling No No -Circular Undermining No No -Exudate Amt Small -Exudate Type Serosanguineous -Wound Margin Distinct, Distinct, Outline Outline Attached Attached -Granulation Amt Medium (34-66%) Medium (34-66%) -Granulation Quality [place] -Slough/Fibrin Yes -Necrosis Amt Small (1-33%) Medium (34-66%) -Necrotic Tissue Type Adherent Slough Adherent Slough -Structure Exposed N/A N/A -Texture (Leslye-wound Skin Appearance) Assessed Assessed -Moisture (Leslye-wound Skin Appearance) Assessed Assessed -Color (Leslye-wound Skin Appearance) Assessed Assessed, Hemosiderin Staining -Temperature (Leslye-wound Skin No Abnormality No Abnormality Appearance) (Pt Warm) (Pt Warm) -Tenderness on Palpation (Leslye-wound No No Skin Appearance) -Ulcer Cleansing Not Cleansed Wound Cleanser -Foul Odor after Cleansing No No -Anesthetic Used 5% Lidocaine Gel -Wound Comment(s) she washed her legs before coming, and had zinc cream on them #10 L MED LE (TRAUMA) -Combined with other wound No -Current Size (cm) - Length 1.0 2.9 -Current Size (cm) - Width 1.2 2 -Current Size (cm) - Depth 0.1 0.2 -Total Square Cm 1.20 5.8 -Photo Taken No -Epithelialization Small 1-33% -Tunneling No No -Undermining/Tunneling No No -Circular Undermining No No -Exudate Amt Medium -Exudate Type Serosanguineous -Wound Margin Distinct, Distinct, Outline Outline Attached Attached -Granulation Amt Medium (34-66%) Medium (34-66%) -Granulation Quality [place] -Slough/Fibrin Yes -Necrosis Amt Small (1-33%) Medium (34-66%) -Necrotic Tissue Type Adherent Slough Adherent Slough -Structure Exposed N/A N/A -Texture (Leslye-wound Skin Appearance) Assessed Assessed -Moisture (Leslye-wound Skin Appearance) Assessed Assessed -Color (Leslye-wound Skin Appearance) Assessed Assessed, Hemosiderin Staining -Temperature (Leslye-wound Skin No Abnormality No Abnormality Appearance) (Pt Warm) (Pt Warm) -Tenderness on Palpation (Leslye-wound No Skin Appearance) -Ulcer Cleansing Not Cleansed Wound Cleanser -Foul Odor after Cleansing No -Anesthetic Used 5% Lidocaine Gel Lower Limb Edema Present Yes Right Calf (cm) 26.5 42 Right Ankle (cm) 45.0 27.7 Left Calf (cm) 26.4 48 Left Ankle (cm) 46 25.6 WC - Nurse 2 - General Ulcer CM Notes Start: 04/11/23 10:32 Freq: Status: Active Protocol: Activity Type Activity Date Activity User E-sign Co-sign Detail Recorded Client Recorded Date Recorded By Document 04/11/23 13:45 PL [id number] 04/11/23 13:46 PL 04/11/23 13:45 Wound Center Nurse 2 #11- L TOMAS BELLE CLUSTER -Time 10:57 -Correct Patient Yes -Correct Side, Site, Position Yes -Correct Procedure Yes -Procedure Performed Yes -Type of Procedure Debridement -Clinical Debridement Subcutaneous -Tissue Removed Subcutaneous -Post Debridement (cm) - Length 1.0 -Post Debridement (cm) - Width 0.6 -Post Debridement (cm) - Depth 0.1 -Total Square (Post) (cm) 0.60 -Area of Debridement (cm) - Length 1.0 -Area of Debridement (cm) - Width 0.6 -Total Square (Area) (cm) 0.60 -Tunneling No -Undermining/Tunneling No -Circular Undermining No -Wound/Ulcer Outcome Not Healed -Ulcer Cleansing Rinsed/ Irrigated with Saline -Foul Odor after Cleansing No -Bioengineered Tissue No -Bleeding Controlled with Pressure -Treatment Response Procedure Tolerated Well -Debridement - Subq, 1st 20sq cm No #10 L MED LE (TRAUMA) -Time 10:57 -Correct Patient Yes -Correct Side, Site, Position Yes -Correct Procedure Yes -Procedure Performed Yes -Type of Procedure Debridement -Clinical Debridement Subcutaneous -Tissue Removed Subcutaneous -Post Debridement (cm) - Length 1.0 -Post Debridement (cm) - Width 1.2 -Post Debridement (cm) - Depth 0.1 -Total Square (Post) (cm) 1.20 -Area of Debridement (cm) - Length 1.0 -Area of Debridement (cm) - Width 1.2 -Total Square (Area) (cm) 1.20 -Tunneling No -Undermining/Tunneling No -Circular Undermining No -Wound/Ulcer Outcome Not Healed -Ulcer Cleansing Rinsed/ Irrigated with Saline -Foul Odor after Cleansing No -Bioengineered Tissue No -Bleeding Controlled with Pressure -Treatment Response Procedure Tolerated Well -Debridement - Subq, 1st 20sq cm Yes Pain Scale: 0-10 Numeric Is Patient Pain Free? Yes WC - Nurse 3 - General Ulcer D/C NN Start: 04/11/23 10:32 Freq: Status: Active Protocol: Activity Type Activity Date Activity User E-sign Co-sign Detail Recorded Client Recorded Date Recorded By Document 04/11/23 11:19 RB Desktop 04/11/23 11:21 RB Document 04/18/23 10:54 RB Desktop 04/18/23 10:58 RB 04/11/23 04/18/23 11:19 10:54 Wound Care Center Nurse 3 #11- L LAT LE CLUSTER -Ulcer Cleansing Rinsed/ Wound Cleanser Irrigated with Saline -Primary Dressing Applied Mepilex Border, Mepilex Border, Promogran Promogran -Mepilex Border 1 1 -Promogran 1 1 #10 L MED LE (TRAUMA) -Ulcer Cleansing Wound Cleanser -Primary Dressing Applied Mepilex Border -Other Dressing promogran promogran & foam dressing -Mepilex Border 1 Right -Tubular Bandage Double Layer Double Layer -Size of Tubigrip Used Size E Size E -Size E ($) 4 2 Left -Tubular Bandage Double Layer Double Layer -Size of Tubigrip Used Size E Size E -Size E ($) 4 2 Treatment Response Procedure Procedure Tolerated Well Tolerated Well Pain Scale: 0-10 Numeric Is Patient Pain Free? Yes Yes Teaching: Wound Center Dressing Your Wound -Person Taught Patient -Teaching Method Discussion, Demonstration -Response to teaching Verbalize understanding WC - Visit Discharge Discharge Condition Stable Stable Ambulatory Status Ambulatory Ambulatory Transportation Private Auto Private Auto Medication Reconcilliation completed & No No provided to patient/care provider Clinical Summary of Care Provided Yes Yes Assessment/Plan Assessment/Plan (1) Leg wound, left: CODE(S): S81.802A - Unspecified open wound, left lower leg, initial encounter QUALIFIERS: Encounter type: subsequent encounter Qualified Code(s): S81.802D - Unspecified open wound, left lower leg, subsequent encounter (2) Venous hypertension, chronic, with inflammation: CODE(S): I87.329 - Chronic venous hypertension (idiopathic) with inflammation of unspecified lower extremity QUALIFIERS: Laterality: bilateral Qualified Code(s): I87.323 - Chronic venous hypertension (idiopathic) with inflammation of bilateral lower extremity (3) Chronic venous insufficiency: CODE(S): I87.2 - Venous insufficiency (chronic) (peripheral) (4) Chronic ulcer of left lower extremity: CODE(S): L97.929 - Non-pressure chronic ulcer of unspecified part of left lower leg with unspecified severity QUALIFIERS: Non-pressure ulcer stage: with fat layer exposed Qualified Code(s): L97.922 - Non-pressure chronic ulcer of unspecified part of left lower leg with fat layer exposed (5) Right leg DVT: CODE(S): I82.401 - Acute embolism and thrombosis of unspecified deep veins of right lower extremity QUALIFIERS: Affected thrombotic vein of extremity: calf muscle vein (6) Left leg DVT: CODE(S): I82.402 - Acute embolism and thrombosis of unspecified deep veins of left lower extremity QUALIFIERS: Affected thrombotic vein of extremity: calf muscle vein (7) Lymphedema of left leg: CODE(S): I89.0 - Lymphedema, not elsewhere classified (8) Lymphedema of right lower extremity: CODE(S): I89.0 - Lymphedema, not elsewhere classified (9) Nodular goiter: CODE(S): E04.9 - Nontoxic goiter, unspecified (10) Type 2 diabetes mellitus with other circulatory complications: CODE(S): E11.59 - Type 2 diabetes mellitus with other circulatory complications (11) Umbilical hernia without obstruction or gangrene: CODE(S): K42.9 - Umbilical hernia without obstruction or gangrene (12) Pure hypercholesterolemia: CODE(S): E78.00 - Pure hypercholesterolemia, unspecified (13) Essential hypertension: CODE(S): I10 - Essential (primary) hypertension (14) GERD (gastroesophageal reflux disease): CODE(S): K21.9 - Gastro-esophageal reflux disease without esophagitis (15) Hiatal hernia: CODE(S): K44.9 - Diaphragmatic hernia without obstruction or gangrene (16) Osteoarthritis: CODE(S): M19.90 - Unspecified osteoarthritis, unspecified site (17) Atherosclerotic heart disease of [place] coronary artery without angina pectoris: CODE(S): I25.10 - Atherosclerotic heart disease of [place] coronary artery without angina pectoris QUALIFIERS: [place] vs. transplanted heart: [place] heart Qualified Code(s): I25.10 - Atherosclerotic heart disease of [place] coronary artery without angina pectoris (18) Obesity: CODE(S): E66.9 - Obesity, unspecified QUALIFIERS: Obesity type: due to excess calories Obesity classification: unspecified obesity classification Serious obesity comorbidity presence: unspecified whether serious comorbidity present Qualified Code(s): E66.09 - Other obesity due to excess calories (19) Leg swelling: CODE(S): M79.89 - Other specified soft tissue disorders (20) Edema leg: CODE(S): R60.0 - Localized edema (21) Post-phlebitic dermatosis of both lower extremities: CODE(S): I87.093 - Postthrombotic syndrome with other complications of bilateral lower extremity (22) Lipodermatosclerosis: CODE(S): I83.10 - Varicose veins of unspecified lower extremity with inflammation QUALIFIERS: Laterality: bilateral Qualified Code(s): M79.3 - Panniculitis, unspecified PLAN: Plan This is an 82-year-old female who presented with a traumatic wound on the left pretibial surface. She has pre-existing severe lower extremity venous disease, with longstanding swelling and edema in her lower extremities, associated with v enous stasis dermatitis and inflammatory erythema. [facility]brid[facility] has been [facility] today. Conservative treatment measures have been discussed with the patient thoroughly. The patient has been encouraged to sleep on a flat surface at night, rather than a recliner. Leg elevation has been encouraged to heart level, or higher. Leg elevation is to be implemented during daytime hours is much as possible. Activity has been encouraged. Prolonged idle sitting has been discouraged. We are to continue the use of Promogran topically, which will be applied by the patient on a daily basis. The patient has been instructed in the appropriate means of application. Compression is to be applied daily by the use of double Tubigrip's. These are to be donned in the morning, and doffed at bedtime each day. The patient has been encouraged to enhance her efforts at leg elevation and avoidance of idle sitting. The patient is to return in 1 week for reevaluation. We are to seek preauthorization for the use of pneumatic mechanical compression pumps to the lower extremities. Total time: 24 minutes
[2023-04-25 10:27] VITALS: RESP 18; TEMP 36.3; BMI 37.4
--- NOTE | 2023-04-25 12:35 | PCM.WC.HP ---
History of Present Illness Date of Service: 04/25/23 Chief Complaint: Traumatic wound of the left lower extremity History of Wound: This is an 82-year-old female with a longstanding history of chronic venous disease. She suffers from chronic swelling and edema in her lower extremities bilaterally. She has a long history of venous stasis dermatitis in the gaiter areas bilaterally. In late January 2023, while in the grocery store, the patient reached for a milk carton, which fell and impacted the left pretibial surface. A wound resulted, which has failed to heal until the current time. The patient is currently treated with systemic anticoagulation for bilateral lower extremity deep vein thrombosis. She spends a good part of each night sleeping in a recliner. She is not very active. She spends long periods each day in a sitting position. She is also obese. She has a history of lower extremity thrombophlebitis. The patient has had ulcers in the distal left lower extremity in the past, [facility]. A noninvasive lower extremity arterial study performed in November 2020 revealed no evidence of significant arterial occlusive disease. [facility] Medical History (Updated 04/25/23 @ 12:[address] 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 Back pain Cardiology follow-up encounter Cataract Cellulitis of left leg Choledocholithiasis Chronic ulcer of left lower extremity Chronic venous hypertension (idiopathic) with inflammation of bilateral lower extremity Chronic venous hypertension (idiopathic) with ulcer of left lower extremity Chronic venous insufficiency Chronic venous stasis dermatitis Decubitus ulcer of left buttock, stage 2 Diabetes DVT (deep venous thrombosis) Edema leg Edema of both legs Essential hypertension Failure to thrive Gastric reflux Generalized weakness GERD (gastroesophageal reflux disease) GI bleed Heel spur Hiatal hernia Hiatal hernia History of bleeding ulcers history of cellulitis of leg History of echocardiogram History of edema History of hiatal hernia History of stress test History of ulceration Hx of venous thrombosis and embolism Hyperpigmentation of skin Hypertension Hypertension Kidney disease Leg swelling Leg wound, left Lipodermatosclerosis Localized edema Loss of consciousness Lymphedema of left leg Lymphedema of right lower extremity Nausea Nodular goiter 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 Non-smoker Obesity Osteoarthritis Osteoporosis Palpitations Peripheral arterial disease Positional vertigo Post-menopausal Post-phlebitic dermatosis of both lower extremities Pressure ulcer of right buttock, stage 3 Pure hypercholesterolemia Shortness of breath on exertion Sludge in gallbladder Ulcer Venous hypertension, chronic, with inflammation Venous stasis ulcer Venous ulcer of left leg Venous ulcer of right leg Wears dentures Home Medications irbesartan 75 mg tablet 75 mg PO DAILY blood pressure 01/15/17 [History Last Taken 08/16/21] potassium chloride 10 mEq capsule,extended release 10 meq PO PRN PRN HYPOKALEMIA 10/11/19 [History Last Taken 12/21/20] torsemide 20 mg tablet 10 mg PO DAILY PRN PRN Edema 12/21/20 [History Last Taken 12/21/20] famotidine 20 mg tablet 20 mg PO BID 30 days #60 tabs 05/24/21 [Rx Last Taken Unknown] meclizine 25 mg tablet 25 mg PO DAILY PRN Vertigo 08/12/21 [History Last Taken Unknown] ursodiol 250 mg tablet 250 mg PO DAILY 30 days #30 tabs 04/14/22 [Rx Last Taken Unknown] rivaroxaban 10 mg tablet (Xarelto) 10 mg PO DAILY #30 tabs 12/01/22 [Rx Last Taken Unknown] hydroxyzine HCl 10 mg tablet 10 mg PO TID PRN itching 03/14/23 [History Last Taken Unknown] Allergy/AdvReac Type Severity Reaction Status Date / Time neomycin sulfate Allergy Severe Itching Verified 03/14/23 10:48 [From Neosporin ([id number])] cefdinir Allergy Other Verified 03/14/23 10:48 ezetimibe [From Zetia] Allergy Itching Verified 03/14/23 10:48 lisinopril Allergy cough Verified 03/14/23 10:48 neomycin [Neomycin] Allergy gets in Verified 03/14/23 10:48 blood stream and pass out polymyxin B [Polymyxin B] Allergy Unknown Verified 03/14/23 10:48 Sulfa (Sulfonamide Allergy Unknown Verified 03/14/23 10:48 Antibiotics) tetracycline [Tetracycline] Allergy Itching Verified 03/14/23 10:48 adhesive tape AdvReac Severe pulls Verified 03/14/23 10:48 skin cephalexin AdvReac Mild Other Verified 03/14/23 10:48 atorvastatin calcium AdvReac Pain in Verified 03/14/23 10:48 [From Lipitor] joints, muscle damage Family History Mother CAD (coronary artery disease) Myocardial infarction Son Hypertension Brother Aortic aneurysm Father Diabetes Heart disease Other Arthritis Bleeding disorder Blood clot in vein Bowel disease H/O ulcer disease Osteoporosis Severe allergy Surgical History H/O dilation and curettage history excision heel spur right foot History of cataract surgery History of cholecystectomy History of ERCP History of hernia repair History of left heart catheterization History of tubal ligation Lipoma Rectal fistula Social History household members: none housing: house current occupational status: employed Smoking Status: Never smoker alcohol intake: never substance use type: does not use caffeine: Yes Type: coffee Number of servings: 1 what type of physical activity do you participate in: none seatbelt use: always do you feel safe at home: Yes Vital Signs Vital Signs Vital Signs: 04/25/23 10:27 Temperature 97.4 F L Temperature Source Temporal Respiratory Rate 18 Blood Pressure Source Monitor Blood Pressure Position Semi-Fowlers Blood Pressure Location Left Arm Weight Weight: 173 lb Body Mass Index (BMI) 37.4 Physical Exam Const alert, oriented x3, no apparent distress and well nourished Constitutional Narrative: The patient is obese, with a BMI of 37.4. General Appearance: cooperative, comfortable, well kempt and well developed Orientation / Consciousness: awake, oriented to person, oriented to place and oriented to time HEENT normocephalic, head/scalp atraumatic and hearing grossly normal bilaterally Head and Scalp: normal to inspection, normocephalic and atraumatic External Ear: external ears normal Eyes PERRL and EOMs intact bilaterally General Eye: normal appearance of both eyes Resp normal respiratory effort, normal air movement, no retractions and no use of accessory muscles Effort and Inspection: able to speak in complete sentences Extremity no calf tenderness General Extremity: Negative for clubbing or cyanosis Skin Wound Narrative: A traumatic wound is noted on the left pretibial surface. It appears to be slightly smaller in size, and is generally pink and healthy in appearance. Dimensions are documented elsewhere. Moderate swelling and edema are noted in the patient's lower extremities bilaterally, with mild bilateral lymphedema. Several additional ulcerations are now noted in the lower extremities, one on the left medial calf, and one on the right medial calf. These have appeared since the patient's last visit. Venous stasis dermatitis is noted bilaterally in the gaiter areas, associated with a mild inflammatory erythema. Mild hyperpigmentation is noted in the left gaiter area. There is no sign of infection or cellulitis. The wound demonstrates a small amount of bioburden and nonviable tissue. Neuro oriented x3, CN's II-XII intact bilaterally, moves all extremities and no focal motor deficits Sensorium / Orientation: awake, alert, oriented to person, oriented to place and oriented to time Psych Appearance: grossly normal and appropriate Attitude: calm Activity / Motor Behavior: appropriate eye contact Speech: normal speech Mood & Affect: euthymic mood Thought Process: normal thought process Thought Content: normal thought content Attention / Concentration: attention grossly intact Debridement Note Debridement Note Wound debrided: Left pretibial traumatic wound and left medial calf Laterality: Left Type of Debridement: Excisional debridement Anesthesia Used: 5% Lidocaine Gel Depth: Down to and including healthy tissue and in the subcutaneous layer Percentage of wound debrided: 100 Instrument Used: 5mm curette Tissue Removed: Bioburden and nonviable tissue Severity: Fat Layer Exposed Amount of bleeding with debridement: Mild Bleeding Controlled with: Compression and gauze Patient tolerated procedure: Patient tolerated procedure well Post-Debridement Measurements and Additional Note: Post-Debridement Measurements/Treatment - Nurse 1 - General Ulcer Assessment Start: 04/11/23 10:32 Freq: Status: Active Protocol: DYAN Activity Type Activity Date Activity User E-sign Co-sign Detail Recorded Client Recorded Date Recorded By Document 04/11/23 10:33 Desktop 04/11/23 10:43 Document 04/18/23 10:24 RB Desktop 04/18/23 10:36 RB Document 04/25/23 10:27 RB Desktop 04/25/23 10:35 RB 04/11/23 04/18/23 04/25/23 10:33 10:24 10:27 - Today's Visit Information Type of service Follow-up Visit Follow-up Visit Follow-up Visit (Physician/EXHIBITIONS CURATOR (Physician/EXHIBITIONS CURATOR (Physician/EXHIBITIONS CURATOR ) ) ) Arrival Mode Ambulatory,Cane Ambulatory Ambulatory Transfer Assistance None None None Patient Identification Verified (Name & Yes Yes Yes ) Patient Requires Transmission-Based No No No Precautions Safety Precautions Fall Prevention Height and Weight Body Mass Index (BMI) 37.4 37.4 37.4 BMI Classification Obese Obese Obese Vital Signs Temperature (97.8 F-99.1 F) 96.5 F L 96.3 F L 97.4 F L Temperature Source Temporal Temporal Temporal Pulse Rate (60-100) 76 65 Pulse Location Monitor Monitor Monitor Respiratory Rate (12-18) 18 18 Respiratory rate source Observation Observation Oxygen Delivery Method Room Air Blood Pressure (90/60-120/80) 176/56 H 194/67 H Blood Pressure Mean 96 109 Source Monitor Monitor Monitor Position Sitting Semi-Fowlers Semi-Fowlers Blood Pressure Location Left Arm Left Arm Left Arm History Since Last Visit- (Skip if this is Patient's initial visit) Have you changed medications since your No No No last visit? Any new allergies or adverse reactions No No No Had a fall/change in ADL's that may No No No increase risk of falls Signs or symptoms of abuse and/or No No No neglect since last visit Have you been in the hospital since your No No No last visit? Has dressing in place as prescribed Yes Yes Yes Has compression in place as prescribed Yes Yes Yes Has offloadiing in place as prescribed No No No Experienced any changes in pain level or No No No management Pain Scale: 0-10 Numeric Is Patient Pain Free? Yes Yes Yes WC - Nurse 1 - General Ulcer Measurement Start: 04/11/23 10:32 Freq: Status: Active Protocol: Activity Type Activity Date Activity User E-sign Co-sign Detail Recorded Client Recorded Date Recorded By Document 04/11/23 10:33 Desktop 04/11/23 10:43 Document 04/18/23 10:24 RB Desktop 04/18/23 10:36 RB Document 04/25/23 10:27 RB Desktop 04/25/23 10:35 RB 04/11/23 04/18/23 04/25/23 10:33 10:24 10:27 Wound Center Nurse 1 #11- L LAT LE CLUSTER -Combined with other wound No -Current Size (cm) - Length 1.0 0.1 -Current Size (cm) - Width 0.6 0.1 -Current Size (cm) - Depth 0.1 0.1 -Total Square Cm 0.60 0.01 -Photo Taken No -Epithelialization Small 1-33% -Tunneling No No -Undermining/Tunneling No No -Circular Undermining No No -Exudate Amt Small -Exudate Type Serosanguineous -Wound Margin Distinct, Distinct, Outline Outline Attached Attached -Granulation Amt Medium (34-66%) Medium (34-66%) -Granulation Quality [place] -Slough/Fibrin Yes -Necrosis Amt Small (1-33%) Medium (34-66%) -Necrotic Tissue Type Adherent Slough Adherent Slough -Structure Exposed N/A N/A -Texture (Leslye-wound Skin Appearance) Assessed Assessed -Moisture (Leslye-wound Skin Appearance) Assessed Assessed -Color (Leslye-wound Skin Appearance) Assessed Assessed, Hemosiderin Staining -Temperature (Leslye-wound Skin No Abnormality No Abnormality Appearance) (Pt Warm) (Pt Warm) -Tenderness on Palpation (Leslye-wound No No Skin Appearance) -Ulcer Cleansing Not Cleansed Wound Cleanser -Foul Odor after Cleansing No No -Anesthetic Used 5% Lidocaine Gel -Wound Comment(s) she washed her legs before coming, and had zinc cream on them #10 L MED LE (TRAUMA) -Combined with other wound No No -Current Size (cm) - Length 1.0 2.9 2 -Current Size (cm) - Width 1.2 2 2 -Current Size (cm) - Depth 0.1 0.2 0.1 -Total Square Cm 1.20 5.8 4 -Photo Taken No -Epithelialization Small 1-33% -Tunneling No No No -Undermining/Tunneling No No No -Circular Undermining No No No -Exudate Amt Medium Medium -Exudate Type Serosanguineous Serosanguineous -Wound Margin Distinct, Distinct, Distinct, Outline Outline Outline Attached Attached Attached -Granulation Amt Medium (34-66%) Medium (34-66%) Medium (34-66%) -Granulation Quality [place] -Slough/Fibrin Yes -Necrosis Amt Small (1-33%) Medium (34-66%) Medium (34-66%) -Necrotic Tissue Type Adherent Slough Adherent Slough Adherent Slough -Structure Exposed N/A N/A N/A -Texture (Leslye-wound Skin Appearance) Assessed Assessed Assessed -Moisture (Leslye-wound Skin Appearance) Assessed Assessed Assessed -Color (Leslye-wound Skin Appearance) Assessed Assessed, Hemosiderin Hemosiderin Staining Staining -Temperature (Leslye-wound Skin No Abnormality No Abnormality No Abnormality Appearance) (Pt Warm) (Pt Warm) (Pt Warm) -Tenderness on Palpation (Leslye-wound No No Skin Appearance) -Ulcer Cleansing Not Cleansed Wound Cleanser Wound Cleanser -Foul Odor after Cleansing No No -Anesthetic Used 5% Lidocaine 5% Lidocaine Gel Gel Lower Limb Edema Present Yes Yes Right Calf (cm) 26.5 42 44.8 Right Ankle (cm) 45.0 27.7 32 Left Calf (cm) 26.4 48 50.4 Left Ankle (cm) 46 25.6 33 WC - Nurse 2 - General Ulcer CM Notes Start: 04/11/23 10:32 Freq: Status: Active Protocol: Activity Type Activity Date Activity User E-sign Co-sign Detail Recorded Client Recorded Date Recorded By Document 04/11/23 13:45 PL [id number] 04/11/23 13:46 PL Document 04/18/23 12:06 PL [id number] 04/18/23 12:07 PL Document 04/25/23 11:47 PL [id number] 04/25/23 11:48 PL 04/11/23 04/18/23 04/25/23 13:45 12:06 11:47 Wound Center Nurse 2 #11- L LAT LE CLUSTER -Time 10:57 -Correct Patient Yes -Correct Side, Site, Position Yes -Correct Procedure Yes -Procedure Performed Yes No -Type of Procedure Debridement -Clinical Debridement Subcutaneous -Tissue Removed Subcutaneous -Post Debridement (cm) - Length 1.0 -Post Debridement (cm) - Width 0.6 -Post Debridement (cm) - Depth 0.1 -Total Square (Post) (cm) 0.60 -Area of Debridement (cm) - Length 1.0 -Area of Debridement (cm) - Width 0.6 -Total Square (Area) (cm) 0.60 -Tunneling No -Undermining/Tunneling No -Circular Undermining No -Wound/Ulcer Outcome Not Healed Healed- Epithelialized -Ulcer Cleansing Rinsed/ Irrigated with Saline -Foul Odor after Cleansing No -Bioengineered Tissue No -Bleeding Controlled with Pressure -Treatment Response Procedure Tolerated Well -Debridement - Subq, 1st 20sq cm No #10 L MED LE (TRAUMA) -Time 10:57 10:41 10:45 -Correct Patient Yes Yes Yes -Correct Side, Site, Position Yes Yes Yes -Correct Procedure Yes Yes Yes -Procedure Performed Yes Yes Yes -Type of Procedure Debridement Debridement Debridement -Clinical Debridement Subcutaneous Subcutaneous Subcutaneous -Tissue Removed Subcutaneous Subcutaneous Subcutaneous -Post Debridement (cm) - Length 1.0 2.9 2.0 -Post Debridement (cm) - Width 1.2 2.0 2.0 -Post Debridement (cm) - Depth 0.1 0.2 0.1 -Total Square (Post) (cm) 1.20 5.80 4.00 -Area of Debridement (cm) - Length 1.0 2.9 2.0 -Area of Debridement (cm) - Width 1.2 2.0 2.0 -Total Square (Area) (cm) 1.20 5.80 4.00 -Tunneling No No No -Undermining/Tunneling No No No -Circular Undermining No No No -Wound/Ulcer Outcome Not Healed Not Healed Not Healed -Ulcer Cleansing Rinsed/ Rinsed/ Rinsed/ Irrigated with Irrigated with Irrigated with Saline Saline Saline -Foul Odor after Cleansing No No No -Bioengineered Tissue No No No -Bleeding Controlled with Pressure Pressure Pressure -Treatment Response Procedure Procedure Procedure Tolerated Well Tolerated Well Tolerated Well -Debridement - Subq, 1st 20sq cm Yes Yes Yes Pain Scale: 0-10 Numeric Is Patient Pain Free? Yes Yes Yes WC - Nurse 3 - General Ulcer D/C NN Start: 04/11/23 10:32 Freq: Status: Active Protocol: Activity Type Activity Date Activity User E-sign Co-sign Detail Recorded Client Recorded Date Recorded By Document 04/11/23 11:19 RB Desktop 04/11/23 11:21 RB Document 04/18/23 10:54 RB Desktop 04/18/23 10:58 RB Document 04/25/23 11:15 NRL Desktop 04/25/23 11:17 NRL 04/11/23 04/18/23 04/25/23 11:19 10:54 11:15 Wound Care Center Nurse 3 #11- L LAT LE CLUSTER -Ulcer Cleansing Rinsed/ Wound Cleanser Irrigated with Saline -Primary Dressing Applied Mepilex Border, Mepilex Border, Promogran Promogran -Mepilex Border 1 1 -Promogran 1 1 #10 L MED LE (TRAUMA) -Ulcer Cleansing Wound Cleanser Rinsed/ Irrigated with Saline -Primary Dressing Applied Mepilex Border Promogran -Other Dressing promogran promogran & Gauze roll over foam dressing foam dressing -Mepilex Border 1 -Promogran 1 Right -Tubular Bandage Double Layer Double Layer Double Layer -Size of Tubigrip Used Size E Size E Size F -Size E ($) 4 2 -Size F ($) 2 Left -Tubular Bandage Double Layer Double Layer Double Layer -Size of Tubigrip Used Size E Size E Size F -Size E ($) 4 2 -Size F ($) 2 Treatment Response Procedure Procedure Tolerated Well Tolerated Well Pain Scale: 0-10 Numeric Is Patient Pain Free? Yes Yes Yes Teaching: Wound Center Dressing Your Wound -Person Taught Patient -Teaching Method Discussion, Demonstration -Response to teaching Verbalize understanding WC - Visit Discharge Discharge Condition Stable Stable Stable Ambulatory Status Ambulatory Ambulatory Ambulatory,Cane Transportation Private Auto Private Auto Private Auto Accompanied by Self Medication Reconcilliation completed & No No Yes provided to patient/care provider Clinical Summary of Care Provided Yes Yes Yes Additional Wound Wound debrided: Right medial calf Laterality: Right Type of Debridement: Excisional debridement Anesthesia Used: 5% Lidocaine Gel Depth: Down to and including healthy tissue and in the subcutaneous layer Percentage of wound debrided: 100 Instrument Used: 5mm curette Tissue Removed: Bioburden Severity: Fat Layer Exposed Amount of bleeding with debridement: Mild Bleeding Controlled with: Compression and gauze Patient tolerated procedure: Patient tolerated procedure well Assessment/Plan Assessment/Plan (1) Leg wound, left: CODE(S): S81.802A - Unspecified open wound, left lower leg, initial encounter QUALIFIERS: Encounter type: subsequent encounter Qualified Code(s): S81.802D - Unspecified open wound, left lower leg, subsequent encounter (2) Venous hypertension, chronic, with inflammation: CODE(S): I87.329 - Chronic venous hypertension (idiopathic) with inflammation of unspecified lower extremity QUALIFIERS: Laterality: bilateral Qualified Code(s): I87.323 - Chronic venous hypertension (idiopathic) with inflammation of bilateral lower extremity (3) Venous ulcer of left leg: CODE(S): I83.029 - Varicose veins of left lower extremity with ulcer of unspecified site; L97.929 - Non-pressure chronic ulcer of unspecified part of left lower leg with unspecified severity (4) Venous ulcer of right leg: CODE(S): I83.019 - Varicose veins of right lower extremity with ulcer of unspecified site; L97.919 - Non-pressure chronic ulcer of unspecified part of right lower leg with unspecified severity (5) Chronic venous insufficiency: CODE(S): I87.2 - Venous insufficiency (chronic) (peripheral) (6) Chronic ulcer of left lower extremity: CODE(S): L97.929 - Non-pressure chronic ulcer of unspecified part of left lower leg with unspecified severity QUALIFIERS: Non-pressure ulcer stage: with fat layer exposed Qualified Code(s): L97.922 - Non-pressure chronic ulcer of unspecified part of left lower leg with fat layer exposed (7) Right leg DVT: CODE(S): I82.401 - Acute embolism and thrombosis of unspecified deep veins of right lower extremity QUALIFIERS: Affected thrombotic vein of extremity: calf muscle vein (8) Left leg DVT: CODE(S): I82.402 - Acute embolism and thrombosis of unspecified deep veins of left lower extremity QUALIFIERS: Affected thrombotic vein of extremity: calf muscle vein (9) Lymphedema of left leg: CODE(S): I89.0 - Lymphedema, not elsewhere classified (10) Lymphedema of right lower extremity: CODE(S): I89.0 - Lymphedema, not elsewhere classified (11) Nodular goiter: CODE(S): E04.9 - Nontoxic goiter, unspecified (12) Type 2 diabetes mellitus with other circulatory complications: CODE(S): E11.59 - Type 2 diabetes mellitus with other circulatory complications (13) Umbilical hernia without obstruction or gangrene: CODE(S): K42.9 - Umbilical hernia without obstruction or gangrene (14) Pure hypercholesterolemia: CODE(S): E78.00 - Pure hypercholesterolemia, unspecified (15) Essential hypertension: CODE(S): I10 - Essential (primary) hypertension (16) GERD (gastroesophageal reflux disease): CODE(S): K21.9 - Gastro-esophageal reflux disease without esophagitis (17) Hiatal hernia: CODE(S): K44.9 - Diaphragmatic hernia without obstruction or gangrene (18) Osteoarthritis: CODE(S): M19.90 - Unspecified osteoarthritis, unspecified site (19) Atherosclerotic heart disease of [place] coronary artery without angina pectoris: CODE(S): I25.10 - Atherosclerotic heart disease of [place] coronary artery without angina pectoris QUALIFIERS: [place] vs. transplanted heart: [place] heart Qualified Code(s): I25.10 - Atherosclerotic heart disease of [place] coronary artery without angina pectoris (20) Obesity: CODE(S): E66.9 - Obesity, unspecified QUALIFIERS: Obesity type: due to excess calories Obesity classification: unspecified obesity classification Serious obesity comorbidity presence: unspecified whether serious comorbidity present Qualified Code(s): E66.09 - Other obesity due to excess calories (21) Leg swelling: CODE(S): M79.89 - Other specified soft tissue disorders (22) Edema leg: CODE(S): R60.0 - Localized edema (23) Post-phlebitic dermatosis of both lower extremities: CODE(S): I87.093 - Postthrombotic syndrome with other complications of bilateral lower extremity (24) Lipodermatosclerosis: CODE(S): I83.10 - Varicose veins of unspecified lower extremity with inflammation PLAN: Plan This is an 82-year-old female who presented with a traumatic wound on the left pretibial surface. She has pre-existing severe lower extremity venous disease, with longstanding swelling and edema in her lower extremities, associated with venous stasis dermatitis and inflammatory erythema. [facility]brid[facility] has been [facility]. In addition, several new ulcerations have now appeared on the right and left medial calf, thought to be due to the patient's chronic venous disease, venous hypertension, and dependent edema. It is suspected that the patient has failed to elevate her lower extremities to the degree recommended. Conservative treatment measures have been discussed with the patient thoroughly. The patient has been encouraged to sleep on a flat surface at night, rather than a recliner. Leg elevation has been encouraged to heart level, or higher. Leg elevation is to be implemented during daytime hours is much as possible. Activity has been encouraged. Prolonged idle sitting has been discouraged. We are to continue the use of Promogran topically, which will be applied by the patient on a daily basis to each of her lower extremity wounds/ulcerations. The patient has been instructed in the appropriate means of application. Compression is to be continued daily by the use of double Tubigrip's. These are to be donned in the morning, and doffed at bedtime each day. The patient has been encouraged to enhance her efforts at leg elevation and avoidance of idle sitting. The patient is to return in 1 week for reevaluation. We are to seek preauthorization for the use of pneumatic mechanical compression pumps to the lower extremities. Total time: 24 minutes
== END 2023-05-04 23:59 | disposition home or self-care (01) ==
LOC: WC 10:30
PROVIDERS: PCP Nurse Practitioner Family; Referring Provider Nurse Practitioner Family; Visit Provider Surgery
DX: I87.323 Chronic venous hypertension (idiopathic) with inflammation of bilateral lower extremity (principal); E11.51 Type 2 diabetes mellitus with diabetic peripheral angiopathy without gangrene; L97.922 Non-pressure chronic ulcer of unspecified part of left lower leg with fat layer exposed; E11.59 Type 2 diabetes mellitus with other circulatory complications; I82.403 Acute embolism and thrombosis of unspecified deep veins of lower extremity, bilateral; K21.9 Gastro-esophageal reflux disease without esophagitis; M19.90 Unspecified osteoarthritis, unspecified site; K42.9 Umbilical hernia without obstruction or gangrene; I89.0 Lymphedema, not elsewhere classified; E66.09 Other obesity due to excess calories; Z68.37 Body mass index [BMI] 37.0-37.9, adult; E78.00 Pure hypercholesterolemia, unspecified; I25.10 Atherosclerotic heart disease of native coronary artery without angina pectoris; R60.0 Localized edema; K44.9 Diaphragmatic hernia without obstruction or gangrene; E04.9 Nontoxic goiter, unspecified; M79.89 Other specified soft tissue disorders; I83.10 Varicose veins of unspecified lower extremity with inflammation
CPT/HCPCS: 11042

== ENCOUNTER 2023-05-09 09:37 | Outpatient (RCR) | payer MEDICARE, OTHER, SELFPAY ==
[2023-05-05 00:49] VITALS: BP 194/67; PULSE 65; RESP 18; TEMP 36.3; BMI 37.4
[2023-05-09 09:45] VITALS: BP 186/68; PULSE 85; RESP 20; TEMP 36.2; BMI 37.4
--- NOTE | 2023-05-09 14:15 | PCM.WC.HP ---
History of Present Illness Date of Service: 05/09/23 Chief Complaint: Traumatic wound of the left lower extremity History of Wound: This is an 82-year-old female with a longstanding history of chronic venous disease. She suffers from chronic swelling and edema in her lower extremities bilaterally. She has a long history of venous stasis dermatitis in the gaiter areas bilaterally. In late January 2023, while in the grocery store, the patient reached for a milk carton, which fell and impacted the left pretibial surface. A wound resulted, which has failed to heal until the current time. The patient is currently treated with systemic anticoagulation for bilateral lower extremity deep vein thrombosis. She spends a good part of each night sleeping in a recliner. She is not very active. She spends long periods each day in a sitting position. She is also obese. She has a history of lower extremity thrombophlebitis. The patient has had ulcers in the distal left lower extremity in the past, [facility]. A noninvasive lower extremity arterial study performed in November 2020 revealed no evidence of significant arterial occlusive disease. 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 Back pain Cardiology follow-up encounter Cataract Cellulitis of left leg Choledocholithiasis Chronic ulcer of left lower extremity Chronic venous hypertension (idiopathic) with inflammation of bilateral lower extremity Chronic venous hypertension (idiopathic) with ulcer of left lower extremity Chronic venous insufficiency Chronic venous stasis dermatitis Decubitus ulcer of left buttock, stage 2 Diabetes DVT (deep venous thrombosis) Edema leg Edema of both legs Essential hypertension Failure to thrive Gastric reflux Generalized weakness GERD (gastroesophageal reflux disease) GI bleed Heel spur Hiatal hernia Hiatal hernia History of bleeding ulcers history of cellulitis of leg History of echocardiogram History of edema History of hiatal hernia History of stress test History of ulceration Hx of venous thrombosis and embolism Hyperpigmentation of skin Hypertension Hypertension Kidney disease Leg swelling Leg wound, left Lipodermatosclerosis Localized edema Loss of consciousness Lymphedema of left leg Lymphedema of right lower extremity Nausea Nodular goiter 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 Non-smoker Obesity Osteoarthritis Osteoporosis Palpitations Peripheral arterial disease Positional vertigo Post-menopausal Post-phlebitic dermatosis of both lower extremities Pressure ulcer of right buttock, stage 3 Pure hypercholesterolemia Shortness of breath on exertion Sludge in gallbladder Ulcer Venous hypertension, chronic, with inflammation Venous stasis ulcer Venous ulcer of left leg Venous ulcer of right leg Wears dentures Home Medications irbesartan 75 mg tablet 75 mg PO DAILY blood pressure 01/15/17 [History Last Taken 08/16/21] potassium chloride 10 mEq capsule,extended release 10 meq PO PRN PRN HYPOKALEMIA 10/11/19 [History Last Taken 12/21/20] torsemide 20 mg tablet 10 mg PO DAILY PRN PRN Edema 12/21/20 [History Last Taken 12/21/20] famotidine 20 mg tablet 20 mg PO BID 30 days #60 tabs 05/24/21 [Rx Last Taken Unknown] meclizine 25 mg tablet 25 mg PO DAILY PRN Vertigo 08/12/21 [History Last Taken Unknown] rivaroxaban 10 mg tablet (Xarelto) 10 mg PO DAILY #30 tabs 12/01/22 [Rx Last Taken Unknown] hydroxyzine HCl 10 mg tablet 10 mg PO TID PRN itching 03/14/23 [History Last Taken Unknown] ursodiol 250 mg tablet 250 mg PO DAILY 30 days #30 tabs 04/26/23 [Rx Last Taken Unknown] Allergy/AdvReac Type Severity Reaction Status Date / Time neomycin sulfate Allergy Severe Itching Verified 03/14/23 10:48 [From Neosporin ([id number])] cefdinir Allergy Other Verified 03/14/23 10:48 ezetimibe [From Zetia] Allergy Itching Verified 03/14/23 10:48 lisinopril Allergy cough Verified 03/14/23 10:48 neomycin [Neomycin] Allergy gets in Verified 03/14/23 10:48 blood stream and pass out polymyxin B [Polymyxin B] Allergy Unknown Verified 03/14/23 10:48 Sulfa (Sulfonamide Allergy Unknown Verified 03/14/23 10:48 Antibiotics) tetracycline [Tetracycline] Allergy Itching Verified 03/14/23 10:48 adhesive tape AdvReac Severe pulls Verified 03/14/23 10:48 skin cephalexin AdvReac Mild Other Verified 03/14/23 10:48 atorvastatin calcium AdvReac Pain in Verified 03/14/23 10:48 [From Lipitor] joints, muscle damage Family History Mother CAD (coronary artery disease) Myocardial infarction Son Hypertension Brother Aortic aneurysm Father Diabetes Heart disease Other Arthritis Bleeding disorder Blood clot in vein Bowel disease H/O ulcer disease Osteoporosis Severe allergy Surgical History H/O dilation and curettage history excision heel spur right foot History of cataract surgery History of cholecystectomy History of ERCP History of hernia repair History of left heart catheterization History of tubal ligation Lipoma Rectal fistula Social History household members: none housing: house current occupational status: employed Smoking Status: Never smoker alcohol intake: never substance use type: does not use caffeine: Yes Type: coffee Number of servings: 1 what type of physical activity do you participate in: none seatbelt use: always do you feel safe at home: Yes Vital Signs Vital Signs Vital Signs: 05/09/23 09:45 Temperature 97.2 F L Temperature Source Temporal Pulse Rate 85 Respiratory Rate 20 H Blood Pressure 186/68 H Blood Pressure Mean 107 Blood Pressure Source Monitor Weight Weight: 173 lb Body Mass Index (BMI) 37.4 Physical Exam Const alert, oriented x3, no apparent distress and well nourished Constitutional Narrative: The patient is obese, with a BMI of 37.4. General Appearance: cooperative, comfortable, well kempt and well developed Orientation / Consciousness: awake, oriented to person, oriented to place and oriented to time HEENT normocephalic, head/scalp atraumatic and hearing grossly normal bilaterally Head and Scalp: normal to inspection, normocephalic and atraumatic External Ear: external ears normal Eyes PERRL and EOMs intact bilaterally General Eye: normal appearance of both eyes Resp normal respiratory effort, normal air movement, no retractions and no use of accessory muscles Effort and Inspection: able to speak in complete sentences Extremity no calf tenderness General Extremity: Negative for clubbing or cyanosis Skin Wound Narrative: The wounds and ulcerations on the patient's lower extremities now appear to be completely healed and epithelialized. There has been significant improvement since the patient's prior visit. Moderate swelling and edema are noted in the patient's lower extremities bilaterally, with mild bilateral lymphedema. The dermatitis related to the patient's venous disease appears to be well-controlled and minimized. Mild hyperpigmentation is noted in the left gaiter area. There is no sign of infection or cellulitis. Neuro oriented x3, CN's II-XII intact bilaterally, moves all extremities and no focal motor deficits Sensorium / Orientation: awake, alert, oriented to person, oriented to place and oriented to time Psych Appearance: grossly normal and appropriate Attitude: calm Activity / Motor Behavior: appropriate eye contact Speech: normal speech Mood & Affect: euthymic mood Thought Process: normal thought process Thought Content: normal thought content Attention / Concentration: attention grossly intact Debridement Note Debridement Note No debridement was completed: No debridement was completed today (There are no open wounds or ulcerations.) Post-Debridement Measurements and Additional Note: Post-Debridement Measurements/Treatment WC - Nurse 1 - General Ulcer Assessment Start: 05/09/23 09:45 Freq: Status: Active Protocol: DYAN Activity Type Activity Date Activity User E-sign Co-sign Detail Recorded Client Recorded Date Recorded By Document 05/09/23 09:45 DL Desktop 05/09/23 09:55 DL 05/09/23 09:45 WC - Today's Visit Information Type of service Follow-up Visit (Physician/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 ) Arrival Mode Ambulatory Transfer Assistance None Patient Identification Verified (Name & Yes ) Patient Requires Transmission-Based No Precautions Height and Weight Body Mass Index (BMI) 37.4 BMI Classification Obese Vital Signs Temperature (97.8 F-99.1 F) 97.2 F L Temperature Source Temporal Pulse Rate (60-100) 85 Pulse Location Monitor Respiratory Rate (12-18) 20 H Respiratory rate source Observation Blood Pressure (90/60-120/80) 186/68 H Blood Pressure Mean 107 Source Monitor History Since Last Visit- (Skip if this is Patient's initial visit) Have you changed medications since your No last visit? Any new allergies or adverse reactions No Had a fall/change in ADL's that may No increase risk of falls Signs or symptoms of abuse and/or No neglect since last visit Have you been in the hospital since your No last visit? Has dressing in place as prescribed Yes Has compression in place as prescribed Yes Has offloadiing in place as prescribed N/A Pain Scale: 0-10 Numeric Is Patient Pain Free? Yes WC - Nurse 1 - General Ulcer Measurement Start: 05/09/23 09:45 Freq: Status: Active Protocol: Activity Type Activity Date Activity User E-sign Co-sign Detail Recorded Client Recorded Date Recorded By Document 05/09/23 09:45 DL Desktop 05/09/23 09:55 DL 05/09/23 09:45 Wound Center Nurse 1 #10 L MED LE (TRAUMA) -Current Size (cm) - Length 0 -Current Size (cm) - Width 0 -Current Size (cm) - Depth 0 -Total Square Cm 0 -Photo Taken Yes -Exudate Amt None Present -Wound Margin Flat & Intact -Granulation Amt Large (67-100%) -Granulation Quality [place] -Necrosis Amt None Present (0 %) -Structure Exposed N/A -Texture (Leslye-wound Skin Appearance) Scarring -Moisture (Leslye-wound Skin Appearance) Dry/Scaly -Color (Leslye-wound Skin Appearance) Hemosiderin Staining -Temperature (Leslye-wound Skin No Abnormality Appearance) (Pt Warm) -Tenderness on Palpation (Leslye-wound No Skin Appearance) -Ulcer Cleansing Soap and Water -Foul Odor after Cleansing No Right Calf (cm) 43 Right Ankle (cm) 25.5 Left Calf (cm) 45 Left Ankle (cm) 24 - Nurse 2 - General Ulcer CM Notes Start: 05/09/23 09:45 Freq: Status: Active Protocol: Activity Type Activity Date Activity User E-sign Co-sign Detail Recorded Client Recorded Date Recorded By Document 05/09/23 12:52 PL [id number] 05/09/23 12:53 PL 05/09/23 12:52 Wound Center Nurse 2 #10 L MED LE (TRAUMA) -Procedure Performed No -Wound/Ulcer Outcome Healed- Epithelialized Pain Scale: 0-10 Numeric Is Patient Pain Free? Yes - Nurse 3 - General Ulcer D/C NN Start: 05/09/23 09:45 Freq: Status: Active Protocol: Activity Type Activity Date Activity User E-sign Co-sign Detail Recorded Client Recorded Date Recorded By Document 05/09/23 11:06 DL [id number] 05/09/23 11:08 DL 05/09/23 11:06 Wound Care Center Nurse 3 #10 L MED LE (TRAUMA) -Ulcer Cleansing Rinsed/ Irrigated with Saline -Foul Odor after Cleansing No -Other Covering No Dressing mar -Tubular Bandage Double Layer -Size of Tubigrip Used Size D -Size D ($) 2 Treatment Response Procedure Tolerated Well Pain Scale: 0-10 Numeric Is Patient Pain Free? Yes WC - Visit Discharge Discharge Condition Stable Ambulatory Status Ambulatory,Cane Transportation family Notes: Pt healed and discharged. pt to obtain CircAids. Assessment/Plan Assessment/Plan (1) Leg wound, left: CODE(S): S81.802A - Unspecified open wound, left lower leg, initial encounter QUALIFIERS: Encounter type: subsequent encounter Qualified Code(s): S81.802D - Unspecified open wound, left lower leg, subsequent encounter (2) Venous hypertension, chronic, with inflammation: CODE(S): I87.329 - Chronic venous hypertension (idiopathic) with inflammation of unspecified lower extremity QUALIFIERS: Laterality: bilateral Qualified Code(s): I87.323 - Chronic venous hypertension (idiopathic) with inflammation of bilateral lower extremity (3) Venous ulcer of left leg: CODE(S): I83.029 - Varicose veins of left lower extremity with ulcer of unspecified site; L97.929 - Non-pressure chronic ulcer of unspecified part of left lower leg with unspecified severity (4) Venous ulcer of right leg: CODE(S): I83.019 - Varicose veins of right lower extremity with ulcer of unspecified site; L97.919 - Non-pressure chronic ulcer of unspecified part of right lower leg with unspecified severity (5) Chronic venous insufficiency: CODE(S): I87.2 - Venous insufficiency (chronic) (peripheral) (6) Chronic ulcer of left lower extremity: CODE(S): L97.929 - Non-pressure chronic ulcer of unspecified part of left lower leg with unspecified severity QUALIFIERS: Non-pressure ulcer stage: with fat layer exposed Qualified Code(s): L97.922 - Non-pressure chronic ulcer of unspecified part of left lower leg with fat layer exposed (7) Right leg DVT: CODE(S): I82.401 - Acute embolism and thrombosis of unspecified deep veins of right lower extremity QUALIFIERS: Affected thrombotic vein of extremity: calf muscle vein (8) Left leg DVT: CODE(S): I82.402 - Acute embolism and thrombosis of unspecified deep veins of left lower extremity QUALIFIERS: Affected thrombotic vein of extremity: calf muscle vein (9) Lymphedema of left leg: CODE(S): I89.0 - Lymphedema, not elsewhere classified (10) Lymphedema of right lower extremity: CODE(S): I89.0 - Lymphedema, not elsewhere classified (11) Nodular goiter: CODE(S): E04.9 - Nontoxic goiter, unspecified (12) Type 2 diabetes mellitus with other circulatory complications: CODE(S): E11.59 - Type 2 diabetes mellitus with other circulatory complications (13) Umbilical hernia without obstruction or gangrene: CODE(S): K42.9 - Umbilical hernia without obstruction or gangrene (14) Pure hypercholesterolemia: CODE(S): E78.00 - Pure hypercholesterolemia, unspecified (15) Essential hypertension: CODE(S): I10 - Essential (primary) hypertension (16) GERD (gastroesophageal reflux disease): CODE(S): K21.9 - Gastro-esophageal reflux disease without esophagitis (17) Hiatal hernia: CODE(S): K44.9 - Diaphragmatic hernia without obstruction or gangrene (18) Osteoarthritis: CODE(S): M19.90 - Unspecified osteoarthritis, unspecified site (19) Atherosclerotic heart disease of [place] coronary artery without angina pectoris: CODE(S): I25.10 - Atherosclerotic heart disease of [place] coronary artery without angina pectoris QUALIFIERS: [place] vs. transplanted heart: [place] heart Qualified Code(s): I25.10 - Atherosclerotic heart disease of [place] coronary artery without angina pectoris (20) Obesity: CODE(S): E66.9 - Obesity, unspecified QUALIFIERS: Obesity type: due to excess calories Obesity classification: unspecified obesity classification Serious obesity comorbidity presence: unspecified whether serious comorbidity present Qualified Code(s): E66.09 - Other obesity due to excess calories (21) Leg swelling: CODE(S): M79.89 - Other specified soft tissue disorders (22) Edema leg: CODE(S): R60.0 - Localized edema (23) Post-phlebitic dermatosis of both lower extremities: CODE(S): I87.093 - Postthrombotic syndrome with other complications of bilateral lower extremity (24) Lipodermatosclerosis: CODE(S): I83.10 - Varicose veins of unspecified lower extremity with inflammation PLAN: Plan This is an 82-year-old female who presented with a traumatic wound on the left pretibial surface. She has pre-existing severe lower extremity venous disease, with longstanding swelling and edema in her lower extremities, associated with venous stasis dermatitis and inflammatory erythema. Debridement has been performed [facility] today. In addition, several new ulcerations have now appeared on the right and left medial calf, thought to be due to the patient's chronic venous disease, venous hypertension, and dependent edema. It is suspected that the patient has failed to elevate her lower extremities to the degree recommended. Conservative treatment measures have been discussed with the patient thoroughly. The patient has been encouraged to sleep on a flat surface at night, rather than a recliner. Leg elevation has been encouraged to heart level, or higher. Leg elevation is to be implemented during daytime hours is much as possible. Activity has been encouraged. Prolonged idle sitting has been discouraged. The patient's wounds and ulcerations are now completely healed and epithelialized. Therefore, she is to be discharged, and will follow-up henceforth on an as-needed basis. We are to arrange for the patient to obtain CircAid Velcro compression garments for daily use. As discussed with the patient, it will be necessary for her to continue with a regimen of leg elevation, avoidance of idle standing and sitting, lower extremity compression, etc. Unfortunately, she appears to be somewhat resistant to the idea of such long-term measures. Unfortunately, should she fail to demonstrate compliance, it is likely that she will return with recurrent skin changes and ulcerations in her lower extremities. At this time, however, she is to be discharged. Should her lower extremity manifestations recur, pneumatic mechanical compression pumps may be of benefit. Total time: 26 minutes
== END 2023-05-10 15:46 | disposition home or self-care (01) ==
LOC: WC 09:37
PROVIDERS: PCP Nurse Practitioner Family; Referring Provider Nurse Practitioner Family; Visit Provider Surgery
DX: L97.922 Non-pressure chronic ulcer of unspecified part of left lower leg with fat layer exposed (principal); E11.51 Type 2 diabetes mellitus with diabetic peripheral angiopathy without gangrene; L97.919 Non-pressure chronic ulcer of unspecified part of right lower leg with unspecified severity; E11.59 Type 2 diabetes mellitus with other circulatory complications; I82.403 Acute embolism and thrombosis of unspecified deep veins of lower extremity, bilateral; E66.09 Other obesity due to excess calories; E78.00 Pure hypercholesterolemia, unspecified; I89.0 Lymphedema, not elsewhere classified; K21.9 Gastro-esophageal reflux disease without esophagitis; K44.9 Diaphragmatic hernia without obstruction or gangrene; Z68.37 Body mass index [BMI] 37.0-37.9, adult; I25.10 Atherosclerotic heart disease of native coronary artery without angina pectoris; K42.9 Umbilical hernia without obstruction or gangrene; M19.90 Unspecified osteoarthritis, unspecified site; E04.9 Nontoxic goiter, unspecified; R60.0 Localized edema; I87.329 Chronic venous hypertension (idiopathic) with inflammation of unspecified lower extremity; S81.802D Unspecified open wound, left lower leg, subsequent encounter
CPT/HCPCS: 99213; G0463

== ENCOUNTER → 2023-11-02 | Outpatient (CLI) | payer MEDICARE, OTHER, SELFPAY ==
--- NOTE | 2023-11-02 12:10 | BI_ITS ---
MAMMOGRAPHY - BILATERAL SCREENING REASON FOR EXAM: Female, 83 years old. Routine annual screening examination. PERTINENT HISTORY: Palpable lump in the left breast. TECHNIQUE: Digital bilateral breast wu (3D mammographic acquisition) in the CC and MLO projections. 2-D mediolateral oblique (MLO) and craniocaudad (CC) views of both breasts were obtained. CAD: Full Field Digital Mammography with Computer Added Detection was performed. COMPARISON: Comparison is made with prior examination dated October 12, 2021. FINDINGS: Breast Composition: There are scattered areas of fibroglandular density. There now is evidence of a 1.3 cm spiculated nodule with retraction in the deep upper lateral aspect of the left breast. Biopsy recommended. No other significant abnormalities are identified. BI/SCRN MAMM (CAD)W/WU BILAT IMPRESSION: 1.3 cm spiculated nodule in the deep upper lateral aspect of the left breast. Biopsy recommended. ASSESSMENT CATEGORY: BIRADS Category 4: Suspicious - Biopsy Should Be Considered. A letter regarding these results will be sent to the patient by the facility within 30 days. Approximately 10% of breast cancers are not detected by mammography. A normal mammogram should not delay biopsy of a clinically suspicious abnormality. [id number] Electronically Signed: Sergio Perea MD at 14:13 EDT ,
--- NOTE | 2023-11-02 12:11 | BD_ITS ---
STUDY: DUAL ENERGY X-RAY ABSORPTIOMETRY / DXA REASON FOR EXAM: Female, 83 years old. [id number] TECHNIQUE: Bone Mineral Density (BMD) measurements of lumbar spine and bilateral hips were obtained. COMPARISON: Comparison is made with prior study dated October 12, 2021. FINDINGS: Lumbar Spine (L1-L4): g/cm2 (1.116) / T-score (0.6) / Z-score (3.5) Findings are suggestive of normal bone density with a low fracture risk. Left Femur Total: g/cm2 (0.846) / T-score (-0.8) / Z-score (1.5) Left Femoral Neck: g/cm2 (0.766) / T-score (-0.7) / Z-score (1.7) Right Femur Total: g/cm2 (0.843) / T-score (-0.8) / Z-score (1.5) Right Femoral Neck: g/cm2 (0.713) / T-score (-1.2) / Z-score (1.3) The T-Scores on the most recent prior examination were: Lumbar Spine (L1-L4): There has been improvement of bone density since the previous examination. Left Femur Total: which represents an improvement of 3.2%. Right Femur Total: which represents a worsening of 0.4%. BD/Dexa Bone Density Study IMPRESSION: The patient is considered osteopenic as outlined below according to World Nico Organization (WHO) criteria with a low fracture risk. There has been worsening of bone density since the previous examination. Reference Information: The T-score is the number of standard deviations above or below the standard which is normal for young adults at their peak bone mineral density. The World Health Organization (WHO) interprets the T-scores as follows: Above -1 Normal bone density Between -1 and -2.5 Osteopenia Equal to / or below -2.5 Osteoporosis As a practical clinical guideline, osteopenia may be graded as follows: Mild -1 through -1.5 Moderate -1.6 through -2.0 Severe -2.1 through -2.4 The Z-score is the number of standard deviations above or below age-matched controls. A Z-score of less than -1.5 would be considered abnormal. References: 1. NIH Osteoporosis and Related Bone Diseases www osteo.org 2. International Society for Clinical Densitometry www iscd.org 3. National Osteoporosis Foundation www nof.org Electronically Signed: Sergio Perea MD at 15:13 EDT ,
== END | disposition home or self-care (01) ==
LOC: OPBD 12:10
PROVIDERS: PCP Nurse Practitioner Family; Referring Provider Nurse Practitioner Family; Visit Provider Nurse Practitioner Family
DX: Z12.31 Encounter for screening mammogram for malignant neoplasm of breast (principal); Z78.0 Asymptomatic menopausal state
CPT/HCPCS: 77063; 77067; 77080

== ENCOUNTER → 2023-11-06 | Outpatient (CLI) | payer MEDICARE, OTHER, SELFPAY ==
[2023-11-06 15:01] LABS: Absolute Lymphocyte Count 2.27 X10^3/uL (0.83-4.51); Absolute Neutrophil Count 2.8 X10^3/uL (2.0-7.7); Basophil# 0.04 X10^3/uL; Basophil% 0.7 % (0-1); Eosinophil# 0.07 X10^3/uL; Eosinophils% 1.2 % (0-5); Hemoglobin 12.3 g/dL (12.0-15.0); Lymphocyte # 2.27 X10^3/ul (0.83-4.51); Mean Corp Hgb Conc 31.5 g/dL (32-36); Mean Corpuscular Hgb 30.8 pg (27.0-32.0); Mean Corpuscular Volume 97.5 fL (81-99); Mean Platelet Vol. 12.5 fl (6.2-12.0); Monocyte# 0.54 X10^3/uL; Monocyte% 9.5 % (0-10); NRBC Flagged by Analyzer 0 % (0-5); Neutrophil # 2.75 X10^3/uL (2.7-7.7); Neutrophil % 48.4 % (47-70); Platelet Count 189 K/mm3 (150-450); RBC Distribution Width CV 13.3 % (11.6-14.6); RBC Distribution Width SD 48.6 fl (35.1-43.9); White Blood Count 5.7 K/mm3 (4.4-11.0)
[2023-11-06 15:03] LABS: Platelet Count 183 K/mm3 (150-450); RET-HE 35.6 pg (30-35); Reticulocyte Count 1.07 % (0.5-1.5)
[2023-11-06 15:22] LABS: Vitamin B12 203 pg/mL (211-911); Vitamin D,25 Hydroxy 36.4 ng/mL
[2023-11-06 15:40] LABS: Ferritin 66 ng/mL (8-252); Iron 101 ug/dL (50-170); Iron Binding Capacity,Total 298 ug/dL (250-450); LDH 244 U/L (84-246)
[2023-11-06 15:56] LABS: ALB/GLOB Ratio 0.8 RATIO (0.9-2.4); AST(SGOT) 25 U/L (15-37); Alanine Aminotransfer ALT/SGPT 16 U/L (13-56); Albumin, Serum 3.4 g/dL (3.2-5.0); Alkaline Phosphatase 69 U/L (45-117); Anion Gap 8 (5-15); BUN 20 mg/dL (7-18); BUN/Creat Ratio 20.9 RATIO (10-20); Calcium,Total 9.7 mg/dL (8.5-10.1); Chloride 108 mmol/L (98-107); Cholesterol 175 mg/dL (200); Creatinine, Serum 0.96 mg/dL (0.55-1.02); EST Glomerular Filtration Rate 59 mL/min (>60); Est Glom Filt Rate - Afr Amer 72 mL/min (>60); Globulin 4.2 g/dL (2.2-4.2); Glucose 84 mg/dL (74-106); High Density Lipoprotein 63 mg/dL; Potassium 3.9 mmol/L (3.5-5.1); Protein, Total 7.6 g/dL (6.4-8.2); Sodium Level 139 mmol/L (136-145); Triglycerides 102 mg/dL; Very Low Density Lipoprotein 20 mg/dL (5-40)
[2023-11-08 15:09] LABS: Albumin 3.2 g/dL (2.9-4.4); Alpha-1-Globulins 0.2 g/dL (0.0-0.4); Alpha-2-Globulins 0.9 g/dL (0.4-1.0); Endomysial Antibody IgA Negative (Negative); Gamma Globulin 1.3 g/dL (0.4-1.8); IMMUNOFIXATION RESULT,S Comment: (.); Immunoglobulin A 806 mg/dL (64-422); Immunoglobulin G 1227 mg/dL (586-1602); Immunoglobulin M 36 mg/dL (26-217); PROEL- TOTAL PROTEIN 6.9 g/dL (6.0-8.5); t-Transglutaminase IgA <2 U/mL (0-3)
== END | disposition home or self-care (01) ==
PROVIDERS: PCP Nurse Practitioner Family; Referring Provider Internal Medicine Gastroenterology; Visit Provider Internal Medicine Gastroenterology
DX: E11.9 Type 2 diabetes mellitus without complications (principal); E78.00 Pure hypercholesterolemia, unspecified; E55.9 Vitamin D deficiency, unspecified
CPT/HCPCS: 36415; 80053; 80061; 82043; 82306; 82570; 82607; 82728; 82746; 82784; 83516; 83540; 83550; 83615; 84165; 84443; 85025; 85045; 86255; 86334

== ENCOUNTER → 2023-11-10 | Outpatient (CLI) | payer MEDICARE, OTHER, SELFPAY ==
--- NOTE | 2023-11-10 08:04 | US_ITS ---
STUDY: ULTRASOUND BREAST - LEFT REASON FOR EXAM: Female, 83 years old. Abnormal screening mammogram. TECHNIQUE: Axial and longitudinal images of the LEFT breast were performed with a high resolution ultrasound transducer. # OF IMAGES: 9 COMPARISON: Comparison is made with prior mammogram dated November 02, 2023. FINDINGS: LEFT Breast: The mammographic abnormality corresponds to a 1.3 cm x 1.2 cm x 1.3 cm spiculated heterogeneous hypoechoic mass with posterior acoustical shadowing. This is at the 2:00 position of the breast at 5 cm from the nipple. Biopsy recommended. US/Breast Limited Unilateral IMPRESSION: 1.3 cm x 1.2 cm x 1.3 cm spiculated heterogeneous hypoechoic mass with posterior acoustical shadowing at the 2:00 position of the breast at 5 cm from the nipple. Biopsy recommended. ASSESSMENT CATEGORY: BIRADS Category 5: Highly Suggestive of Malignancy - Appropriate Action Should Be Taken. A letter regarding these results will be sent to the patient by the facility within 30 days. Electronically Signed: Sergio Perea MD at 11:09 EDT ,
== END | disposition home or self-care (01) ==
LOC: OPUS 08:02
PROVIDERS: PCP Nurse Practitioner Family; Referring Provider Nurse Practitioner Family; Visit Provider Nurse Practitioner Family
DX: N63.0 Unspecified lump in unspecified breast (principal); R92.8 Other abnormal and inconclusive findings on diagnostic imaging of breast
CPT/HCPCS: 76642

== ENCOUNTER → 2023-11-10 | Outpatient (CLI) | payer MEDICARE, OTHER, SELFPAY ==
[2023-11-10 19:48] LABS: Microalbumin,Random Urine < 5.0 mg/L (NO RANGE EST.)
== END | disposition home or self-care (01) ==
LOC: MTLAB 09:08
PROVIDERS: PCP Nurse Practitioner Family; Referring Provider Nurse Practitioner Family; Visit Provider Nurse Practitioner Family
DX: E11.9 Type 2 diabetes mellitus without complications (principal); E55.9 Vitamin D deficiency, unspecified; E78.00 Pure hypercholesterolemia, unspecified
CPT/HCPCS: 82043; 82570

== ENCOUNTER → 2023-11-16 | Outpatient (CLI) | payer MEDICARE, OTHER, SELFPAY ==
--- NOTE | 2023-11-16 | IMM_PTH ---
PATIENT: BRISSA ARRIAGA LOC: [facility] U#:[id number] AGE/SX: 83/F ROOM: RE11/16/[address]: Dr. Spencer Estevez MD : 1940 BED: DIS: 11/16/2023 SPEC #: [id number] RECD: 11/20/23 12:40 STATUS: NIRANJAN REQ #: [id number] RUBY: 11/16/23 00:[address]: pSencer Estevez DEPT: IMMUNOHISTOCHEMISTRY RECD BY: Elgin Hutchison ENTERED: 11/20/23 12:41 SP TYPE: IMMUNO OTHR DR: Reny Live, PAN PUSHER-C Tissues: Breast, NOS Procedures: CALPONIN-1 (add) CK5-6 (add) CK8 (add) E-CAD (add) HER2 SHAYLEE (add) KI-67 (add) P53 (add) WI (add) P40 (add) MOC-31 (add) ER (initial) PHYSICIAN & [address] [address] SPECIMEN INFORMATION: Tissue Source: Left breast mass Clinical Info: Left breast mass Specimen Number: [id number] CPT code: 97125,52746j75 METHODOLOGY: Deparaffinized sections of prefer/formalin-fixed tissue or PAP/DQ stained slides are incubated with monoclonal/polyclonal antibodies/oligonucleotide probes. Localization is made via biotin free immunoperoxidase method. Appropriate controls are performed and reacted as expected. Results on target cell population are indicated in the following table: RESULTS: ANTIBODY / CLONE RESULT P53 (DO-7) positive, wild type, dim Ki-67 (30-9) positive, 10% CK8 (05prruS55) positive CK5-6 (D5 & 1684) negative Calponin-1 (LO473M) negative P40 (BC28) negative E-Cad (ECH-6) positive MOC-31 (4561) positive MORPHOMETRIC ANALYSIS ER (clone 6F11) >95%, strong intensity WI (clone 16/1E2) 30%, strong intensity Her-2Neu (clone CB11) 3+ The prognostic test for HER2 is performed on formalin-fixed paraffin embedded tissue. A 3+ (positive) staining pattern is defined as intense, homogeneous, complete, circumferential membranous staining in >10% of contiguous tumor cells. A similar weak (2+) staining pattern is interpreted as equivocal. AMARILYS follow-up testing is recommended for all equivocal cases. Positivity/negativity for ER/WI is reported if > or < 1% of the tumor cells are immuno- reactive, respectively. The ASCO/CAP criteria is used for scoring. Reference: Journal of Clinical Oncology, 2013; 31:2224-2658 & 2010; 16:3976-7486. Ischemic time: Less than one hour. Duration of fixation: 5 Hrs; Sample Adequate: Yes. These assays have not been validated on decalcified tissues. Results should be interpreted with caution given the likelihood of false negativity on decalcified specimens or fixation greater than 72 hours. Alternative testing methods (FISH/dualISH for Her2; gene expression for ER) are recommended, if applicable. Please notify the laboratory if additional testing is required. These tests were developed and their performance characteristics determined by [facility]. They may not have been cleared or approved by the U.S. Food and Drug Administration. The FDA has determined that such clearance or approval is not necessary. The above immunohistochemical/dualISH markers are ordered and reviewed by the Pathologist. 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 Positive for estrogen receptors (favorable prognostic indicator). Positive for progesterone receptors (favorable prognostic indicator). Positive for overexpression of HEV2omj. AM/mr 11/23/2023
--- NOTE | 2023-11-16 14:45 | BRBX_PTH ---
PATIENT: BRISSA ARRIAGA [facility] U#:[id number] AGE/SX: 83/F ROOM: RE11/16/[address]: Dr. Spencer Estevez MD : 1940 BED: DIS: 11/16/2023 SPEC #: [id number] RECD: 11/16/23 15:12 STATUS: NIRANJAN REIvis #: [id number] RUBY: 11/16/23 14:[address]: Spencer Estevez DEPT: SURGICAL PATHOLOGY RECD BY: Milagros Valencia ENTERED: 11/17/23 08:52 SP TYPE: BREAST BX OTHR DR: Reny Live, NOHEMY-Parul Tissues: Left breast, NOS Procedures: Surgery Specimen Level IV HEADER OPERATION: Left breast biopsy PRE-OP DIAGNOSIS: Left breast mass TISSUE SUBMITTED: Left breast mass Ischemic Time: 1 minute Fixation Time: 5hours MICROSCOPIC DIAGNOSIS Left breast mass, core biopsy: Invasive ductal carcinoma. See cancer template below. AM/mr 11/20/2023 COMMENT Immunohistochemistry ([id number]) supports the above diagnosis. INVASIVE BREAST CANCER SUMMARY: Procedure: Needle core biopsy Specimen Laterality: left breast Tumor site: Not specified Histologic type: Invasive ductal carcinoma Provisional Histologic grade: 1 Tubule Differentiation Score:2 Nuclear Pleomorphism Score: 2 Mitotic Rate Score: 1 Tumor Size ( greatest dimension): 10mm Ductal Carcinoma Insitu: not identified Lymphatic/vascular invasion: not identified Architectural Pattern: Nuclear Grade: Necrosis: Angiolymphatic Invasion: Microcalcifications: Present Additional Findings: Collagenosis and mild chronic inflammation Breast Marker Study: [id number] ER: 95%, strong intensity [place]: 30%, strong intensity Her2: 3+ (positive) Ki67: 10% Lai2LajaoEU: N/A The above summary is in compliance with [employer] [place] [employer] (CAP) Cancer Protocols Checklist and [place] Joint Committee on Cancer (AJCC), Staging Manual, 8th Ed. MICROSCOPIC DESCRIPTION Slides are reviewed. GROSS DESCRIPTION Received in fixative is one container labeled with the patient's name and designated Left breast mass. The specimen consists of multiple elongated fragments of landin-yellow fibroadipose tissue that in aggregate measure 2.0 x 0.3 x 0.1 cm. The specimen is totally submitted in one cassette. NAN/ 11/17/2023 TC:0 CPT:55474
== END | disposition home or self-care (01) ==
LOC: LABSPEC 11-17 08:31
PROVIDERS: PCP Nurse Practitioner Family; Visit Provider Surgery
DX: C50.912 Malignant neoplasm of unspecified site of left female breast (principal)
CPT/HCPCS: 81002; 88305; 88341; 88342

== ENCOUNTER → 2023-12-05 | Outpatient (CLI) | payer MEDICARE, OTHER, SELFPAY ==
--- NOTE | 2023-12-05 07:45 | ECHOD_ITS ---
Reason For Study: CORONARY ARTERY DISEASE Procedure This was a 2D Doppler, Color Flow transthoracic echocardiogram. Exam performed in department. Left Ventricle Normal LV size. Left ventricular systolic function is normal. The left ventricular ejection fraction is 60 %. Stage 1 diastolic dysfunction. No regional wall motion abnormalities noted. Right Ventricle Normal RV size. Normal systolic function. Atria Normal left atrium. Normal right atrium. Mitral Valve There is mild mitral annular calcification. Tricuspid Valve Normal tricuspid valve. Mild (1+) tricuspid valve insufficiency. Pulmonary artery systolic pressure is 34 mmHg. Aortic Valve Trisinus/trileaflet aortic valve. Pulmonic Valve Normal pulmonic valve. Great Vessels Normal aortic root. The pulmonary artery is normal size. The inferior vena cava is dilated. Pericardium/Pleural No pericardial effusion. MMode/2D Measurements & Calculations LVIDd: 3.8 cm IVSd: 1.3 cm LVOT diam: 1.9 cm LVIDs: 2.1 cm LVPWd: 1.0 cm LVOT area: 2.9 cm2 RVDd: 3.6 cm FS: 43.6 % Ao root diam: 3.1 cm LAV(MOD-bp): 43.9 ml LVAd ap4: 20.1 cm2 LAV(MOD-bp) Indexed: 26.5 ml/m2 LVLd ap4: 6.5 cm LAV(MOD-sp2): 45.3 ml EDV(MOD-sp4): 50.2 ml LAV(MOD-sp4): 40.0 ml EDV(sp4-el): 53.3 ml LVAs ap4: 10.8 cm2 LVLs ap4: 5.3 cm ESV(MOD-sp4): 19.2 ml ESV(sp4-el): 18.5 ml EF(MOD-sp4): 61.9 % EF(sp4-el): 65.2 % LVAd ap2: 21.3 cm2 SV(MOD-sp4): 31.1 ml SV(MOD-sp2): 37.6 ml LVLd ap2: 6.5 cm EDV(MOD-sp2): 55.9 ml EDV(sp2-el): 59.5 ml LVAs ap2: 11.0 cm2 LVLs ap2: 5.5 cm ESV(MOD-sp2): 18.3 ml ESV(sp2-el): 18.5 ml EF(MOD-sp2): 67.2 % SV(sp4-el): 34.7 ml LA dimension(2D): 3.3 cm LA A4 area: 15.3 cm2 RA A4 area: 13.9 cm2 TAPSE: 2.1 cm Time Measurements MV dec time: 0.20 sec Doppler Measurements & Calculations MV E max sergei: 82.2 cm/sec Lat Peak E' Sergei: 9.8 cm/sec Med Peak E' Sergei: 7.8 cm/sec MV A max sergei: 108.2 cm/sec E/E' lat: 8.4 E/E' med: 10.5 MV E/A: 0.76 Ao V2 max: 118.4 cm/sec LV V1 max: 86.6 cm/sec MV dec slope: 408.7 cm/sec2 Ao max P.6 mmHg LV V1 max P.0 mmHg Ao V2 mean: 90.3 cm/sec LV V1 mean P.7 mmHg Ao mean P.5 mmHg LV V1 mean: 60.7 cm/sec Ao V2 VTI: 29.6 cm LV V1 VTI: 25.2 cm AV (velocity ratio): 0.85 RASHMI(I,D): 2.5 cm2 RASHMI(V,D): 2.1 cm2 SV(LVOT): 73.3 ml PA V2 max: 81.2 cm/sec TR max sergei: 265.4 cm/sec PA max PG (full): 1.2 mmHg TR max P.2 mmHg ECHO/Echo Complete Interpretation Summary Normal LV size. Left ventricular systolic function is normal. The left ventricular ejection fraction is 60 %. Stage 1 diastolic dysfunction. Mild (1+) tricuspid valve insufficiency. Ordering Physician: Jacques Lamb Referring Physician: Jacques Lamb MD Performed By: Damaris Mathew RDCS
== END | disposition home or self-care (01) ==
PROVIDERS: PCP Nurse Practitioner Family; Referring Provider Internal Medicine Cardiovascular Disease; Visit Provider Internal Medicine Cardiovascular Disease
DX: I25.10 Atherosclerotic heart disease of native coronary artery without angina pectoris (principal)
CPT/HCPCS: 93306

== ENCOUNTER 2023-12-25 07:19 | Day surgery (SDC) | payer MEDICARE, OTHER, SELFPAY ==
[2023-12-25] VITALS (14 sets, daily range): BP systolic 120–154; BP diastolic 47–82; PULSE 70–77; RESP 14–18; TEMP 36.5–37.1; O2SAT 93–98; BMI 36.3
--- NOTE | 2023-12-25 | IMM_PTH ---
PATIENT: BRISSA ARRIAGA LOC: [facility] U#:[id number] AGE/SX: 83/F ROOM: RE12/25/[address]: Dr. Spencer Estevez MD : 1940 BED: DIS: 12/25/2023 SPEC #: [id number] RECD: 12/28/23 11:28 STATUS: NIRANJAN REQ #: [id number] RUBY: 12/25/23 00:[address]: Spencer Estevez DEPT: IMMUNOHISTOCHEMISTRY RECD BY: Elgin Hutchison ENTERED: 12/28/23 11:29 SP TYPE: IMMUNO OTHR DR: Reny Live, SUPERVISOR [employer] SHOP-C Tissues: A - Axillary lymph node, NOS B - Axillary lymph node, NOS Procedures: CK8 (initial) CK8 (add) Pankeratin (initial) Pankeratin (add) PHYSICIAN & INSTITUTION [place] [id number] SPECIMEN INFORMATION: Tissue Source: A- Left axillary sentinel lymph node, B- Left axillary lymph node Clinical Info: Breast cancer Specimen Number: [id number] CPT code: 43410m7,32289o5 METHODOLOGY: Deparaffinized sections of prefer/formalin-fixed tissue or PAP/DQ stained slides are incubated with monoclonal/polyclonal antibodies/oligonucleotide probes. Localization is made via biotin free immunoperoxidase method. Appropriate controls are performed and reacted as expected. Results on target cell population are indicated in the following table: RESULTS: ANTIBODY / CLONE RESULT Block A 1 AE1-3 (AE1/AE3/PCK26) negative CK8 ([id number]) negative Block A 2 AE1-3 (AE1/AE3/PCK26) negative CK8 (99iomgQ07) negative Block B 1 AE1-3 (AE1/AE3/PCK26) positive CK8 (67nkhyR64) positive Block B 2 AE1-3 (AE1/AE3/PCK26) positive CK8 (87rsyoK78) positive These tests were developed and their performance characteristics determined by [facility]. They may not have been cleared or approved by the U.S. Food and Drug Administration. The FDA has determined that such clearance or approval is not necessary. The above immunohistochemical/dualISH markers are ordered and reviewed by the Pathologist. INTERPRETATION: A. Left axillary sentinel lymph node, biopsy: Two out of two lymph nodes negative for carcinoma. B. Left axillary lymph node, biopsy: One of one lymph node positive for carcinoma. KAYLEEN/ 12/29/2023
--- NOTE | 2023-12-25 07:32 | NM_ITS ---
PROCEDURE: NUCLEAR MEDICINE Injection [place] Node - LEFT breast(s). REASON FOR EXAM: Female, 83 years old. Left breast cancer. TECHNIQUE: [place]vang node localization using radionuclide methods of the LEFT breast(s) was performed following subcutaneous administration of 1.2 mCi of of sulfur colloid Tc-99m. COMPARISON STUDIES : NM - None. CR - Not available for review at this time. CT - Not available for review at this time. MR - Not available for review at this time. US - Not available for review at this time. FINDINGS: 1.2 mCi of technetium labeled sulfur colloid was injected in the periareolar region subcutaneously for sentinel node imaging. NM/Lymph Node Injection Only IMPRESSION: Subcutaneous injection of 1.2 mCi of technetium labeled sulfa colloid in the periareolar region for sentinel node imaging. Electronically Signed: Sergio Perea MD at 8:51 EDT ,
[2023-12-25] MEDS: Lactated Ringers 1,000 ML 15 ML IV (08:13)
[2023-12-25 08:24] LABS: Bedside Glucose 93 mg/dL (74-106)
--- NOTE | 2023-12-25 08:27 | PCM.PRE.AN2 ---
ASA Classification* ASA Classification ASA Classification: 3 Assessment & Plan Anesthesia* Anesthesia Assessment Anesthesia Assessment: Discussed sedation and/or anesthesia options, risks, benefits, and alternatives with patient/parents/legal guardian/POA. Questions invited. The patient/parents/legal guardian/POA seems to understand and agrees to proceed with anesthesia plan. Reviewed the physical assessment, medical history, allergy history and patient home medications list prior to surgery/procedure/anesthetic and documented any changes. Performed airway and anesthesia risk assessments. Anesthesia Type Anesthesia Type: General History Source History Obtained from:: Patient and Chart Anesthesia Focused Assessment* Temperature: 98.2 F Pulse Rate: 70 Blood Pressure: 154/47 Respiratory Rate: 18 Pulse Ox: 98 Oxygen Delivery Method: Room Air Airway Assessment Mouth opens: 2 cm Mallampati Score: IV Teeth Condition: Upper (Upper denture is out.) Neck Range of motion (ROM): Full ROM Pertinent Findings EKG Pertinent Findings:: November 15, 2023. Sinus rhythm with primary AV block. Left anterior fascicular block. No change from 2021. ECHO Pertinent Findings:: December 05, 2023. Ejection fraction 60%. Pulmonary artery systolic pressure is 34 mmHg. Consults Pertinent Findings:: November 15, 2023. Seen by Dr. Lamb. 1. chronic venous insufficiency she has had a clot and is on Xarelto. Okay to stop for surgery. 2. Hypertension continue to monitor. Add spironolactone. 3. Coronary artery disease. Echo as above. Focused Labs Anesthesia Preop lab: CBC WBC 5.7 K/mm3 (4.4-11.0) 11/06/23 11:24 RBC 4.00 M/mm3 (4.2-5.4) L 11/06/23 11:24 Hgb 12.3 g/dL (12.0-15.0) 11/06/23 11:24 Hct 39.0 % (37-47) 11/06/23 11:24 Plt Count 189 K/mm3 (150-450) 11/06/23 11:24 CHEMISTRY Potassium 3.9 mmol/L (3.5-5.1) 11/06/23 11:24 Sodium 139 mmol/L (136-145) 11/06/23 11:24 Magnesium 2.2 mg/dL (1.6-2.6) 10/13/20 06:05 Phosphorus 3.4 mg/dL (2.5-4.9) 09/27/15 05:15 BUN 20 mg/dL (7-18) H 11/06/23 11:24 Creatinine 0.96 mg/dL (0.55-1.02) 11/06/23 11:24 Glucose 84 mg/dL (74-106) 11/06/23 11:24 POC Glucose 93 mg/dL (74-106) 12/25/23 07:46 TSH 0.60 uIU/mL (0.358-3.74) 11/06/23 11:24 COAG PT 13.2 SECONDS (11.7-14.9) 12/21/20 22:26 Pre-Assessment Diagnosis/Proposed Procedure Planned Operative Procedure(s): BREAST PARTIAL LUMPECTOMY [place]coe NODE BIOPSY BLUE DYE Anesthesia History 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 When Was Last Pacemaker Check QUESTION #4 FULL TEXT: You/Your Family Experience fever (hyperthermia) with Anesthesia Last Oral Intake Last Oral intake: Last Oral Intake NPO since 03:00 12/25/23 07:54 Meds taken in AM with sips of Yes 12/25/23 07:54 water? Meds patient instructed to take am of surgery Any additional information?: Yes NPO since: 05:20 Meds taken in AM with sips of water?: Yes PONV PONV - airplane rigger: PONV - airplane rigger Female Yes 12/15/23 14:41 HX of Motion Sickness Yes 12/15/23 14:41 HX of N/V After Surgery No 12/15/23 14:41 Non-Smoker Yes 12/15/23 14:41 Duration of Surgery greater Yes 12/15/23 14:41 than 60 minutes Number of Risk Factors 4 12/15/23 14:41 PONV Score Severe Risk 12/15/23 14:41 Height & Weight Height & Weight: Anesthesia: Height & Weight Height 4 ft 9 in 12/25/23 07:54 Weight: 76.113 kg 12/25/23 07:54 Body Mass Index (BMI) 36.3 12/25/23 07:54 Respiratory Assessment Respiratory Assessment - airplane rigger: Respiratory Tract Infection Hx - airplane rigger Hx Respiratory Tract Infection No 12/15/23 14:41 Any additional information?: Yes Hx Respiratory Tract Infection: No (Patient has had her allergies acting up recently.) STOP Sleep Apnea STOP Sleep Apnea - airplane rigger: STOP Sleep Apnea - airplane rigger Hx Hypertension Yes: CONTROLLED WITH MED 12/15/23 14:41 Hx Sleep Apnea No 12/15/23 14:41 CPAP BIPAP Do you snore loudly (louder No 12/15/23 14:41 than talking or can be heard Do you often feel tired/ Yes 12/15/23 14:41 fatigued/ sleepy during daytime? Has anyone observed you stop No 12/15/23 14:41 breathing during sleep? STOP Results Positive 12/15/23 14:41 QUESTION #5 FULL TEXT : Do you snore loudly (louder than talking or can be heard through closed doors)? 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 Specify any problems Hx of Preganancy in last 3 No 12/15/23 14:41 Months Nurse Filling Out Transfusion DSCHRIBER 12/15/23 14:41 & Questions: Date: 12/15/23 12/15/23 14:41 Time: 14:43 12/15/23 14:41 Patient unable to answer at this time (ie. confused, unrespo /Reproduction History /Reproductive History - airplane rigger: /Reproductive Hx- airplane rigger Hx Now No 12/15/23 14:41 Gestational Age (in weeks): EDC: Hx Hx Para Hx Section SAB No 12/15/23 14:41 Active Medications Active Medications: Current Medications Generic Name Dose Route Start Last Admin Trade Name Freq PRN Reason Stop Dose Admin Cefazolin Sodium 2 gm/ Sodium 110 mls @ 150 mls/hr 12/25/23 11:00 Chloride IV 12/25/23 11:43 PREOP ONE Lactated Ringer's 1,000 mls @ 15 mls/hr 12/25/23 07:30 12/25/23 08:13 IV 15 mls/hr .Q48H STEPHANIE Administration PFSH Medical History (Updated 12/15/23 @ 14:54 by Margie Alatorre) Loss of hearing Wears glasses Cancer Pressure ulcer Fatty liver History of IBS Leg cramps Cellulitis Venous ulcer of left leg Venous ulcer of right leg Lymphedema of right lower extremity Lymphedema of left leg Chronic ulcer of left lower extremity Edema leg Hiatal hernia Venous hypertension, chronic, with inflammation Chronic venous insufficiency Leg wound, left Nodular goiter Wears dentures Post-menopausal Diabetes Ambulates with cane Arthritis Back pain Loss of consciousness History of hiatal hernia Gastric reflux Shortness of breath on exertion History of edema History of echocardiogram History of stress test Hypertension Cardiology follow-up encounter History of bleeding ulcers Choledocholithiasis Peripheral arterial disease Osteoporosis GI bleed Non-smoker DVT (deep venous thrombosis) Abdominal pain Pure hypercholesterolemia Essential hypertension Pressure ulcer of right buttock, stage 3 Decubitus ulcer of left buttock, stage 2 Venous stasis ulcer Hiatal hernia Edema of both legs Osteoarthritis GERD (gastroesophageal reflux disease) Abnormal exercise myocardial perfusion study Palpitations Atherosclerotic heart disease of three affiliated coronary artery without angina pectoris Leg swelling Hyperpigmentation of skin Lipodermatosclerosis Post-phlebitic dermatosis of both lower extremities Chronic venous hypertension (idiopathic) with inflammation of bilateral lower extremity Localized edema Non-pressure chronic ulcer of left calf with fat layer exposed Generalized weakness Hypertension Chronic venous hypertension (idiopathic) with ulcer of left lower extremity Chronic venous stasis dermatitis Non-pressure chronic ulcer of left ankle with fat layer exposed 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 Cellulitis of left leg Failure to thrive Positional vertigo Ulcer Obesity Hx of venous thrombosis and embolism history of cellulitis of leg Home Medications ?Medication ?Instructions ?Recorded ?Last Taken ?Type irbesartan 75 mg tablet 75 mg PO DAILY blood pressure 01/15/17 12/25/23 05:20 History potassium chloride 10 mEq 10 meq PO PRN PRN HYPOKALEMIA 10/11/19 12/18/23 History capsule,extended release famotidine 20 mg tablet 20 mg PO BID 30 days #60 tabs 05/24/21 12/24/23 Rx meclizine 25 mg tablet 25 mg PO DAILY PRN Vertigo 08/12/21 Unknown History hydroxyzine HCl 10 mg tablet 10 mg PO TID PRN itching 03/14/23 Unknown History ursodiol 250 mg tablet 250 mg PO DAILY 30 days #30 tabs 04/26/23 12/24/23 Rx latanoprost 0.005 % eye drops 1 drp ophthalmic (eye) QPM 05/24/23 12/24/23 History rivaroxaban 10 mg tablet (Xarelto) 10 mg PO DAILY #90 tabs 08/17/23 12/20/23 Rx torsemide 20 mg tablet 20 mg PO DAILY PRN PRN Edema 10/27/23 Unknown History hydroxocobalamin-cobamamide (vit 1 tab PO DAILY 11/15/23 12/24/23 History B12) 2,500 mcg disintegrating tablet (Adeno-Hydroxo B12) Allergy/AdvReac Type Severity Reaction Status Date / Time neomycin sulfate (From Allergy Severe Itching Verified 12/25/23 07:45 Neosporin ([id number])) benzethonium chloride (From Allergy Unknown unknown Verified 12/25/23 07:45 Lanacane [place]) benzocaine (From Lanacane Allergy Unknown unknown Verified 12/25/23 07:45 [place]) levofloxacin (From Levaquin) Allergy Unknown Rash Verified 12/25/23 07:45 cefdinir Allergy Other Verified 12/25/23 07:45 ezetimibe (From Zetia) Allergy Itching Verified 12/25/23 07:45 neomycin (Neomycin) Allergy gets in Verified 12/25/23 07:45 blood stream and pass out polymyxin B (Polymyxin B) Allergy Unknown Verified 12/25/23 07:45 Sulfa (Sulfonamide Allergy Unknown Verified 12/25/23 07:45 Antibiotics) tetracycline (Tetracycline) Allergy Itching Verified 12/25/23 07:45 lisinopril AdvReac Intermediate cough Verified 12/25/23 07:45 cephalexin AdvReac Mild Other Verified 12/25/23 07:45 atorvastatin calcium (From AdvReac Pain in Verified 12/25/23 07:45 Lipitor) joints, muscle damage Family History Mother CAD (coronary artery disease) Myocardial infarction Son Hypertension Brother AAA (abdominal aortic aneurysm) Father Diabetes Heart disease CAD (coronary artery disease) Liver disease Other Arthritis Bleeding disorder Blood clot in vein Bowel disease Cancer H/O ulcer disease Osteoporosis Severe allergy Surgical History (Updated 12/15/23 @ 14:54 by Margie Alatorre) History of foot surgery History of ERCP History of cholecystectomy History of hernia repair History of left heart catheterization (06/14/13) H/O dilation and curettage Lipoma History of tubal ligation History of cataract surgery Rectal fistula Social History household members: none housing: house current occupational status: employed Smoking Status: Never smoker alcohol intake: current substance use type: does not use caffeine: Yes Type: coffee Number of servings: 3 what type of physical activity do you participate in: none seatbelt use: always do you feel safe at home: Yes Review of Systems (Anesthesia) ROS Narrative System reviewed and no additional complaints, except as documented.
--- NOTE | 2023-12-25 10:44 | HP.PCM_ITS ---
History and Physical Date of Admission: 12/25/23 Intake Vital Signs 11/14/2409:32 Height 4 ft 9 in Intake Visit Reasons: DISCUSS SURGERY Chief Complaint: discuss surgery Global Program Director Required: No Is patient in pain?: No Allergies neomycin sulfate (From Neosporin ([id number])) Allergy (Severe, Verified 12/11/23 13:05) Itchingbenzethonium chloride (From Lanacane [place]) Allergy (Unknown, Verified 12/11/23 13:05) unknownbenzocaine (From Lanacane [place]) Allergy (Unknown, Verified 12/11/23 13:05) unknownlevofloxacin (From Levaquin) Allergy (Unknown, Verified 12/11/23 13:05) Rashcefdinir Allergy (Verified 12/11/23 13:05) Otherezetimibe (From Zetia) Allergy (Verified 12/11/23 13:05) Itchingneomycin (Neomycin) Allergy (Verified 12/11/23 13:05) gets in blood stream and pass outpolymyxin B (Polymyxin B) Allergy (Verified 12/11/23 13:05) UnknownSulfa (Sulfonamide Antibiotics) Allergy (Verified 12/11/23 13:05) Unknowntetracycline (Tetracycline) Allergy (Verified 12/11/23 13:05) Itchingadhesive tape Adverse Reaction (Severe, Verified 12/11/23 13:05) pulls skinlisinopril Adverse Reaction (Intermediate, Verified 12/11/23 13:05) coughcephalexin Adverse Reaction (Mild, Verified 12/11/23 13:05) Otheratorvastatin calcium (From Lipitor) Adverse Reaction (Verified 12/11/23 13:05) Pain in joints, muscle damage Medications ?Medication ?Instructions ?Recorded ?Confirmed ?Type irbesartan 75 mg tablet 75 mg PO DAILY blood pressure 01/15/17 12/11/23 History potassium chloride 10 mEq 10 meq PO PRN PRN HYPOKALEMIA 10/11/19 12/11/23 History capsule,extended release famotidine 20 mg tablet 20 mg PO BID 30 days #60 tabs 05/24/21 12/11/23 Rx meclizine 25 mg tablet 25 mg PO DAILY PRN Vertigo 08/12/21 12/11/23 History hydroxyzine HCl 10 mg tablet 10 mg PO TID PRN itching 03/14/23 12/11/23 History ursodiol 250 mg tablet 250 mg PO DAILY 30 days #30 tabs 04/26/23 12/11/23 Rx latanoprost 0.005 % eye drops 1 drp ophthalmic (eye) QPM 05/24/23 12/11/23 History rivaroxaban 10 mg tablet (Xarelto) 10 mg PO DAILY #90 tabs 08/17/23 12/11/23 Rx torsemide 20 mg tablet 20 mg PO DAILY PRN PRN Edema 10/27/23 12/11/23 History fiber tab PO DAILY 11/15/23 12/11/23 History hydroxocobalamin-cobamamide (vit tab PO DAILY 11/15/23 12/11/23 History B12) 2,500 mcg disintegrating tablet (Adeno-Hydroxo B12) Have you fallen in the past year?: No PFSH Medical History Venous ulcer of left leg Venous ulcer of right leg Lymphedema of right lower extremity Lymphedema of left leg Chronic ulcer of left lower extremity Edema leg Hiatal hernia Venous hypertension, chronic, with inflammation Chronic venous insufficiency Leg wound, left Nodular goiter Cataract Wears dentures Post-menopausal Diabetes Ambulates with cane Arthritis Back pain Loss of consciousness History of hiatal hernia History of ulceration Gastric reflux Shortness of breath on exertion History of edema History of echocardiogram History of stress test Hypertension Cardiology follow-up encounter History of bleeding ulcers Choledocholithiasis Peripheral arterial disease Osteoporosis Kidney disease GI bleed Non-smoker DVT (deep venous thrombosis) Nausea Sludge in gallbladder Abdominal pain Pure hypercholesterolemia Essential hypertension Heel spur Pressure ulcer of right buttock, stage 3 Decubitus ulcer of left buttock, stage 2 Venous stasis ulcer Hiatal hernia Edema of both legs Osteoarthritis GERD (gastroesophageal reflux disease) Abnormal exercise myocardial perfusion study Palpitations Atherosclerotic heart disease of [place] coronary artery without angina pectoris Leg swelling Hyperpigmentation of skin Lipodermatosclerosis Post-phlebitic dermatosis of both lower extremities Chronic venous hypertension (idiopathic) with inflammation of bilateral lower extremity Localized edema Non-pressure chronic ulcer of left calf with fat layer exposed Generalized weakness Hypertension Chronic venous hypertension (idiopathic) with ulcer of left lower extremity Chronic venous stasis dermatitis Non-pressure chronic ulcer of left ankle with fat layer exposed 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 Cellulitis of left leg Failure to thrive Positional vertigo Ulcer Obesity Hx of venous thrombosis and embolism history of cellulitis of leg Surgical History History of foot surgery History of ERCP History of cholecystectomy History of hernia repair History of left heart catheterization (06/14/13) H/O dilation and curettage Lipoma History of tubal ligation History of cataract surgery Rectal fistula Family History Mother CAD (coronary artery disease) Myocardial infarctionSon HypertensionBrother AAA (abdominal aortic aneurysm)Father Diabetes Heart disease CAD (coronary artery disease) Liver diseaseOther Arthritis Bleeding disorder Blood clot in vein Bowel disease Cancer H/O ulcer disease Osteoporosis Severe allergy Social History household members: none housing: house current occupational status: employed Smoking Status: Never smoker alcohol intake: current substance use type: does not use caffeine: Yes Type: coffee Number of servings: 3 what type of physical activity do you participate in: none seatbelt use: always do you feel safe at home: Yes HPI HPI HPI: Patient is an 83-year-old female with left breast cancer. She is here to discuss surgery. She is not having any issues since her biopsy. ROS General General: Yes breast cancer HEENT HEENT: No difficulty swallowing Endo Endocrine: No thyroid disease Breast Breast: Yes left breast lump Musc Musculoskeletal: No back problems Cardio Cardiovascular: No pacemaker Resp Respiratory: No shortness of breath Gastro Gastrointestinal: No diarrhea Raoul Hematologic: Yes blood thinners Exam Const General: cooperative Orientation: alert and oriented x3 HENMT Head: normal to inspection Neck Neck: normal visual inspection and full ROM Chest Chest palpation & inspection: normal inspection of the chest Resp Effort & Inspection: normal respiratory effort Auscultation: clear to auscultation bilaterally Cardio Rate: regular rate Rhythm: regular rhythm GI Inspection: non-distended Palpation: soft and nontender Skin General: no rashes or lesions noted Neuro General: patient alert and patient oriented x3 Extrem General: full ROM Psych Appearance: grossly normal Mental Status: mental status grossly normal Assessment and Plan Assessment and Plan (1) Breast cancer: Status: Acute Qualifiers: Breast location: lower outer quadrant of breast Estrogen receptor status: positive Patient sex: female Laterality: left Qualified Code(s): C50.512 - Malignant neoplasm of lower-outer quadrant of left female breast; Z17.0 - Estrogen receptor positive status [ER+] Plan: The patient has cancer in the lower outer portion of her left breast. There is overlying skin puckering. 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 I discussed partial mastectomy with her in detail. I also discussed sentinel lymph node biopsy. I discussed the risks of both as well as benefits. I discussed the risks of bleeding, infection, injury other organs, nerve injury or lymphedema, need for radiation therapy. Patient understands all the risks and is willing to proceed. Spencer Estevez MD Pager: [facility] [address] [place] [address], [address] [place] [address] Office: I have seen and examined the patient and reviewed the H&P. THere are no changes.
[2023-12-25] MEDS: Cefazolin 2 GM in 0.9% Normal Saline (100mL Bag) 100 ML IV (11:00)
[2023-12-25] MEDS: Isosulfan Blue 1% 5 ML Vial (11:20)
[2023-12-25] MEDS: 0.9% Normal Saline (Pres. free 10 ML Vial (11:20)
[2023-12-25] MEDS: Bupivacaine 0.25% 30 ML Vial (11:30)
--- NOTE | 2023-12-25 12:07 | BI_ITS ---
SURGICAL BREAST SPECIMEN RADIOGRAPH CLINICAL: Document presence of tissue clip marker in biopsy specimen. FINDINGS: Specimen shows presence of tissue clip marker. Electronically Signed: Sergio Perea MD at 12:45 EDT , BI/Breast Biopsy Specimen IMPRESSION: undefined
--- NOTE | 2023-12-25 12:15 | AXNB_PTH ---
PATIENT: BRISSA ARRIAGA [place] [facility] [id number] AGE/SX: 83/F ROOM: RE12/25/[address]: Dr. Spencer Estevez MD : 1940 BED: DIS: 12/25/2023 SPEC #: [id number] RECD: 12/25/23 12:39 STATUS: NIRANJAN REIvis #: [id number] RUBY: 12/25/23 12:[address]: Spencer Estevez DEPT: SURGICAL PATHOLOGY RECD BY: Elgin Hutchison ENTERED: 12/25/23 12:40 SP TYPE: AX NODE BX OTHR DR: Reny Live, CEO [place] Tissues: A - Axillary lymph node, NOS B - Lymph node, NOS C - Skin of breast, NOS Procedures: Frozen Section (charge) Frozen Section Add'l ([facility]) Surgery Specimen Level IV HEADER OPERATION: Breast, partial mastectomy, sentinel axillary lymph node biopsies PRE-OP DIAGNOSIS: Breast cancer TISSUE SUBMITTED: A- Left axillary sentinel lymph node, B- Left axillary lymph node, C- Left breast tissue- frozen for margins tags long lateral short superior FROZEN SECTION DIAGNOSIS A. Left axillary sentinel lymph node, biopsy: Two out of two lymph nodes, negative for metastatic carcinoma. B. Left axillary sentinel lymph node, biopsy: One lymph node positive for micro metastatic carcinoma MICROSCOPIC DIAGNOSIS A. Left axillary sentinel lymph node, biopsy: Two out of two lymph nodes negative for metastatic carcinoma. See comment. B. Left axillary sentinel lymph node, biopsy: One out of one lymph node positive for macro metastatic carcinoma. See comment. C. Left breast, lumpectomy: Invasive ductal carcinoma. See synoptic report below. AM/ 12/28/2023 COMMENT A, B. Immunohistochemistry ([id number]) supports the above diagnosis. C. BREAST CANCER SUMMARY Procedure: Excision with wire guidance Specimen: Type: Partial breast Size: 6.5 x 4.5 x 2.5cm Laterality: Left breast Invasive Tumor: Size: 1.9 x 1.8 x 1.0cm Focality: Single focus of invasive carcinoma Histologic type: Invasive ductal carcinoma. Histologic grade ([place] grade): Glandular/tubular differentiation score: 3 Nuclear pleomorphism score: 2 Mitotic count score: 1 Overall grade: 2 (score of 6) Lymph vascular invasion: Not identified Perineural invasion: Present Ductal Carcinoma In Situ: Present Estimated quantification: (5% of total tumor volume). Number of blocks: 2 of 12 blocks Architectural pattern: Solid and cribriform Nuclear grade: 2/3 Necrosis: Comedo necrosis focally present Lobular Carcinoma In Situ: Not present Tumor extension: Skin: Free of invasive and in situ carcinoma Nipple: Not present Skeletal muscle: Not present Margins Involved by Invasive Carcinoma: Distance from closest margin: 0.5 cm from inked superior and inferior margin Margins Involved by In Situ Carcinoma: Distance from closest margin: 0.5 cm from inked superior and inferior margin Lymph Nodes: Number of sentinel lymph nodes examined: 3 Total number of sentinel nodes examined: 3 Macro metastatic carcinoma is present in one out of three lymph nodes Size of largest metastatic deposit: 3.0mm Extra anum extension: Present. See specimens A and B Microcalcifications: Present and associated with invasive carcinoma and non-neoplastic tissue. Treatment Effect: Unknown Additional Pathologic Findings: Mild fibrocystic change and calcifications of vessel pierce Ancillary Studies: Previously performed on same tumor ([id number]) ER: positive (>95%), strong intensity MA: positive (30%) strong intensity [id number]: positive, 3+ Ki67: 10% Clinical History: Mass of left breast. PATHOLOGIC STAGE: pT1c N1a Mx The above summary is in compliance with [employer] (CAP) Cancer Protocol Checklist and [place] Joint Committee on Cancer (AJCC) Staging Manual, 8th Ed. B. The metastatic focus in the sentinel lymph node measures 1.5mm in greatest dimension and is contiguous with the adjacent extra anum extension of tumor [discovered in deeper permanent sections] that measures 3.0mm in greatest dimension. No line of demarcation is identified between the anum and extra anum tumor and hence, the entire focus is favored to represent anum disease. Case has been reviewed in consultation with Dr. Magaña who concurs with the above diagnosis. IDC:SJ MICROSCOPIC DESCRIPTION Slides are reviewed. GROSS DESCRIPTION A. Received fresh for frozen section diagnosis labeled with the patient's name is a specimen designated Right axillary sentinel lymph node. The specimen consists of a piece of adipose tissue measuring 3.0 x 3.0 x 1.0cm. Two nodules consistent lymph node are noted measuring 1.5 and 3.0cm in greatest dimension. The entire specimen is submitted for frozen section diagnosis in three cassettes as follows: 1- one bisected lymph node, 2 and 3- one bisected lymph node. B. Received fresh for frozen section diagnosis labeled with the patient's name is a specimen designated Left axillary sentinel lymph node. The specimen consists of a piece of adipose tissue measuring 2.5 x 2.0 x 0.7cm. One nodule consistent with lymph node is noted measuring 2.0cm in greatest dimension. This lymph node is bisected and submitted for frozen section diagnosis in two cassettes. NAN/ 12/25/2023 C. Received fresh for intraoperative consultation diagnosis labeled with the patient's name is a specimen designated Left breast tissue. The specimen consists of a piece of fibroadipose tissue measuring 6.5 x 4.5 x 2.5cm. A piece of skin is present anteriorly measuring 5.5 x 1.9cm. Sections reveal a landin-brown lesion in the skin each measuring 0.7cm in greatest dimension. The specimen is inked as follows: posterior - black, superior - blue, inferior - green, medial - red and lateral - orange. Serial sections reveal a landin indurated mass measuring 1.9 x 1.8 x 1.0cm. This mass is 0.5cm away from the closest superior and inferior dissection margins. This information is conveyed to the surgeon intraoperatively. Section of the rest of this specimen reveal landin-yellow adipose cut surfaces mixed with landin white fibrous areas. Revenue St[employer] Cutter sections are submitted in twelve cassettes as follows: 1- perpendicular medial, lateral and posterior margins, perpendicular superior and inferior margins, 3- skin with lesions, entirely submitted, 4-8- entire tumor, 9-12- licensing representative sections adjacent to and away from the tumor. Sections are submitted after additional fixation. NAN/ 12/26/2023 TC:[id number]
--- NOTE | 2023-12-25 12:31 | PCM.OPRPT ---
Report of Operation Date of Procedure: 12/25/23 Pre-Operative Diagnosis: Left breast cancer Post-Operative Diagnosis: Left breast cancer lower outer quadrant Surgery/Procedure Performed:: 1. Left partial mastectomy 2. Left axillary sentinel lymph node biopsy 3. Injection of blue dye Type of Anesthesia: General/Regional Specimen's removed: 1. Left breast axillary lymph node 2. Left breast mass Estimated Blood Loss (mL): 10 Description of Procedure: Patient was brought back to the operating room and general anesthesia was induced. The left breast was prepped and then 5 cc of Lymphazurin was injected in the retroareolar space as well as 5 cc of saline and then massage was performed. The left axilla and chest were prepped and draped in usual sterile fashion. The left axillary incision was marked and injected with local anesthetic. Axillary incision was then made with a scalpel and deepened to the axillary fascia which was incised. The area was explored and there was a blue lymph node identified and 2 other lymph nodes that were palpable. All 3 of these lymph nodes were dissected free and clipped and removed. They were all sent for sentinel lymph node in the axilla was irrigated and suctioned dry and hemostasis was obtained. Next the area was packed with a wet gauze. The breast was then addressed. An elliptical incision was marked around the skin area and injected with local anesthetic. Elliptical incision was made with a scalpel and electrocautery was used to contain bleeding and flaps were created. The mass was dissected free circumferentially using electrocautery it was marked and sent for pathology. The cavity was irrigated and suctioned dry and hemostasis was obtained using electrocautery. The pathology from the lymph node came back as a micrometastasis in 1 lymph node. The breast came back as negative margins. Both incisions were closed with dermal 3-0 Vicryl sutures and a running 4-0 Monocryl to close the skin. Dermabond was applied to both incisions and the patient was awoken and taken to PACU in stable condition and tolerated the procedure well.
--- NOTE | 2023-12-25 12:41 | EX.PCM.DISCH ---
Discharge Instructions Diet Discharge Diet: Light diet - advance as tolerated Activity Discharge Activity: May Not Drive (for 2-3 days or while taking narcotic pain medications.) and May Shower Lifting Restrictions: 15 lbs for 1 week Additional Activity Instructions:: Take tylenol for pain, oxycodone as needed Resume Xarelto on Monday Dressing / Incision Call your doctor if your incision/area has: Continuous Slow Oozing, Sudden Increased Bleeding, Increased Pain/ Swelling, Increased Redness, Foul Smelling Discharge and Swelling at the incision site Call your doctor if you observe: Fever of 101 or Higher Suture Line Care: Avoid Pulling/Pushing and Avoid Pinching/Bending Follow Up Care Please Follow Up With: Spencer Estevez MD When: Please call to schedule 2 week follow up appointment. [phone] Test Results: Test results from this visit will be discussed in further detail at your follow-up appointment, if applicable. Discharge Plan Admission Attending Provider: Spencer Estevez Primary Care Provider: Reny Live Instructions Print Language: [place] Discharge Orders/Prescriptions Prescriptions: New oxycodone 5 mg Tablet 5 - 10 mg PO Q4H PRN PRN (Reason: Pain Score 4-10) 5 Days Qty: 20 0RF No Action potassium chloride 10 mEq capsule, extended release 10 meq PO PRN PRN (Reason: HYPOKALEMIA) Patient Comments: 1 tab when takes diuretic latanoprost 0.005 % drops 1 drp ophthalmic (eye) QPM Adeno-Hydroxo B12 2,500 mcg tablet,disintegrating 1 tab PO DAILY irbesartan 75 MG tablet 75 mg PO DAILY torsemide 20 mg tablet 20 mg PO DAILY PRN PRN (Reason: Edema) famotidine 20 mg tablet 20 mg PO BID 30 Days Qty: 60 0RF meclizine 25 mg Tablet 25 mg PO DAILY PRN (Reason: Vertigo) hydroxyzine HCl 10 mg tablet 10 mg PO TID PRN (Reason: itching) ursodiol 250 mg tablet 250 mg PO DAILY 30 Days Qty: 30 11RF Xarelto 10 mg tablet 10 mg PO DAILY Qty: 90 3RF Referrals / Follow Up: Reny Live, [employer] BLOCKER-C [Primary Care Provider] - Disposition Disposition (needs filled in before D/C Order can be placed): Home, Self Care
--- NOTE | 2023-12-25 15:04 | PCM.POST.ANE ---
Anesthesia: Postop Eval I Current Vital Signs Temperature: 98.8 F Pulse Rate: 77 Blood Pressure: 142/59 Respiratory Rate: 16 Pulse Ox: 93 Oxygen Delivery Method: Room Air Assessment Airway patent: Yes Spontaneous unlabored respirations: Yes Mental status: Awake and Calm nausea: No Vomiting: No Anesthesia Complication: No Fluid Hydration Crystalloid volume administer (ml): 800 Total IV fluid infused: 800 Progress Note Anesthesia document: Postop Eval 1 completed: Yes
--- NOTE | 2023-12-25 15:04 | PCM.POSTANE2 ---
Anesthesia Postop Eval I Sum Anesthesia Postop Eval I Summary Anesthesia Postop Eval I Summary: Anesthesia Postop Eval I: Assessment Summary Airway patent Spontaneous unlabored respirations Mental status nausea Vomiting Anesthesia Postop Eval I: Fluid Summary Crystalloid volume administer (ml) Colloids volume administered ( ml) Blood Product volume administered (ml) Total IV fluid infused Anesthesia Postop Eval I: Summary Notes Anesthesia Complication Anesthesia Complication Comment: Post-operative progress note Anesthesia: Postop Eval II Evaluation Mental status: Awake and Calm Pain Level: 1 nausea: No Vomiting: No Complications Anesthesia Complication: No
[2023-12-25 15:50] LABS: Bedside Glucose 133 mg/dL (74-106)
== END 2023-12-25 16:05 | disposition home or self-care (01) ==
LOC: SDC 07:21 → AC 07:22
PROVIDERS: PCP Nurse Practitioner Family; Referring Provider Surgery; Visit Provider Surgery
PROC: 0HBV0ZZ Excision of Bilateral Breast, Open Approach (ICD-10-PCS; CPT 19302; principal; 2023-12-25 10:45)
DX: C50.512 Malignant neoplasm of lower-outer quadrant of left female breast (principal); C77.3 Secondary and unspecified malignant neoplasm of axilla and upper limb lymph nodes; E11.9 Type 2 diabetes mellitus without complications; I25.10 Atherosclerotic heart disease of native coronary artery without angina pectoris; K76.0 Fatty (change of) liver, not elsewhere classified; K21.9 Gastro-esophageal reflux disease without esophagitis; Z79.01 Long term (current) use of 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s; Z79.899 Other long term (current) drug therapy; Z86.718 Personal history of other venous thrombosis and embolism; Z17.0 Estrogen receptor positive status [ER+]
CPT/HCPCS: 19301; 38525; 00400; 38792; 76098; 82962; 88305; 88331; 88332; 88341; 88342; A4648; A9541; J7120; J2405; J3490; Q9968

== ENCOUNTER → 2024-08-01 | Outpatient (CLI) | payer MEDICARE, OTHER, SELFPAY | END | disposition home or self-care (01) | PROVIDERS: PCP Nurse Practitioner Family; Referring Provider Nurse Practitioner Family; Visit Provider Nurse Practitioner Family | DX: E87.5 Hyperkalemia (principal) | CPT/HCPCS: 84132 ==

== ENCOUNTER → 2024-10-07 | Outpatient (CLI) | payer MEDICARE, OTHER, SELFPAY ==
--- NOTE | 2024-10-07 08:30 | US_ITS ---
PROCEDURE: BREAST LIMITED UNILATERAL 10/07/2024 REASON FOR EXAM: AXILLARY MASS New left breast axillary palpable mass. History of left breast cancer. TECHNIQUE: Targeted left breast ultrasound. COMPARISON: Mammogram dated 10/07/2024, 11/10/2023 and 11/02/2023 FINDINGS: Left breast ultrasound was targeted to the left breast axillary region. There is a cystic appearing mass in the left breast axillary region measuring 1.9 x 1.8 x 1.3 cm. The wall is thick. There is blood flow along the periphery. This mass does correlate to the new palpable abnormality and mass seen on the mammogram. It may represent a seroma however aspiration is recommended. If any residual solid component persist the solid component should then be biopsied. US/Breast Limited Unilateral IMPRESSION: Impression: The cystic mass in the left breast axillary region should be aspira juan. If any residual solid component persist, the solid component should then be biopsied. Birads: BI-RADS 4: SUSPICIOUS ABNORMALITY. Reading Location: [id number]
--- NOTE | 2024-10-07 08:30 | BI_ITS ---
EXAM: DIAG MAMM W/CAD, BILAT N/A CLINICAL HISTORY: F, Age 84 y/o , HISTORY OF BREAST CANCER new palpable abnormality left breast axillary region. Evaluate. Yearly screening mammography right breast. TECHNIQUE: Bilateral Diagnostic digital breast tomosynthesis with 2D and 3D images. Computer aided detection. COMPARISON: Prior exam(s) dated 11/02/2023 and 10/12/2021. FINDINGS: TISSUE DENSITY: The breast tissue is composed of scattered area of fibroglandular density. Bilateral Breast Mammographic Findings: No significant masses, calcifications or other abnormalities are identified in the right breast. Benign vascular calcifications and round microcalcifications are seen in the right breast.. There is a 2 cm mass in the right axillary region correlating to the palpable area. The mass is located just anterior to surgical clips. Further workup with ultrasound will be performed for further evaluation. Benign vascular calcifications and round microcalcifications are seen in the left breast. There is architectural distortion from her prior lumpectomy. BI/DIAG MAMM W/CAD, BILAT IMPRESSION: OVERALL FINAL ASSESSMENT: BIRADS 0 Incomplete: Need additional imaging evaluati on and/or prior mammograms for comparison.. RECOMMENDATION: Ultrasound. A letter with findings and recommendations will be mailed to the patient. Reading Location: [id number]
== END | disposition home or self-care (01) ==
LOC: OPBI 08:29
PROVIDERS: PCP Nurse Practitioner Family; Referring Provider Nurse Practitioner Family; Visit Provider Nurse Practitioner Family
DX: C50.412 Malignant neoplasm of upper-outer quadrant of left female breast (principal); Z17.0 Estrogen receptor positive status [ER+]; R22.32 Localized swelling, mass and lump, left upper limb
CPT/HCPCS: 76642; 77062; 77066; G0279

== ENCOUNTER → 2024-10-21 | Outpatient (CLI) | payer MEDICARE, OTHER, SELFPAY ==
--- NOTE | 2024-10-21 13:30 | FLU_PTH ---
PATIENT: BRISSA ARRIAGA [facility]: [facility] U#:[id number] AGE/SX: 84/F ROOM: RE10/21/[address]: Dr. Spencer Estevez MD : 1940 BED: DIS: 10/21/2024 SPEC #: [id number] RECD: 10/21/24 15:00 STATUS: NIRANJAN SNEHA #: [id number] RUBY: 10/21/24 13:[address]: Spencer Estevez DEPT: CYTOLOGY RECD BY: Elgin Hutchison ENTERED: 10/22/24 08:46 SP TYPE: Fluid OTHR DR: Reny Live, [employer] ATTENDANT-C Tissues: A - Axilla, NOS Procedures: Special Stain Group II Surgery Specimen Level IV Cytospin Fluid HEADER OPERATION: Left axilla seroma PRE-OP DIAGNOSIS: Localized swelling, mass and lump, left upper limb TISSUE SUBMITTED: A- Left axilla seroma fluid for cytology DIAGNOSIS CYTOLOGY A. Left axilla, seroma, fine needle aspiration (cytospin and cellblock): * No malignant cells identified. CYTOLOGY STUDY Slides are reviewed. CYTOLOGY GROSS A. Received is 1 ml of brown-cloudy fluid labeled with the patient's name and and designated per the requisition as Left axilla seroma. Submitted for cytology and cell block preparation. Mr 10/22/2024 CPT: 09917, [id number]
[2024-10-21 14:40] LABS: Cytology, Body Fluid / CSF SEE PATHOLOGY REPORT
== END | disposition home or self-care (01) ==
LOC: LABSPEC 14:32
PROVIDERS: PCP Nurse Practitioner Family; Referring Provider Surgery; Visit Provider Surgery
DX: S40.022A Contusion of left upper arm, initial encounter (principal); X58.XXXA Exposure to other specified factors, initial encounter
CPT/HCPCS: 88108; 88305; 88313

== ENCOUNTER 2024-10-28 02:35 | Inpatient (IN) | payer MEDICARE, OTHER, SELFPAY ==
[2024-10-28] VITALS (27 sets, daily range): BP systolic 90–194; BP diastolic 42–93; PULSE 51–91; RESP 11–23; TEMP 36.3–36.9; O2SAT 94–100; BMI 35.6; BMI 34.7
--- NOTE | 2024-10-28 02:54 | EDS_ITS ---
HPI HPI - GI History of Present Illness Chief Complaint: GI Bleed Informant: patient, family and EMS Narrative Narrative: 84-year-old female presenting to the emergency room with vomiting blood. Patient states she has a history of stomach ulcers. She states that she also has a history of a hiatal hernia and recurrent pancreatitis. She ate dinner around 1600 hrs. and did not have any discomfort with eating. Late tonight she began to have hiccups and developed a pressure in her mid chest and began to vomit bright red blood with some clots. 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 She has seen Dr. Lundberg in the past for gastroenterology as well as Dr. Arthur for vascular surgery. She notes a normal brown bowel movement earlier in the day. She states back in 2015 when she had a bleeding ulcer she had black tarry stools. She denies any abdominal pain currently. No syncope. She does note that the past couple times she vomited there was no blood. [facility] Medical History History of breast cancer Mass of left axilla Encounter for education Regional lymph node metastasis present Glaucoma Loss of hearing Wears glasses Cancer Pressure ulcer Fatty liver History of IBS Leg cramps Cellulitis Venous ulcer of left leg Venous ulcer of right leg Lymphedema of right lower extremity Lymphedema of left leg Chronic ulcer of left lower extremity Edema leg Hiatal hernia Venous hypertension, chronic, with inflammation Chronic venous insufficiency Leg wound, left Nodular goiter Wears dentures Post-menopausal Diabetes Ambulates with cane Arthritis Back pain Loss of consciousness History of hiatal hernia Gastric reflux Shortness of breath on exertion History of edema History of echocardiogram History of stress test Hypertension Cardiology follow-up encounter History of bleeding ulcers Choledocholithiasis Peripheral arterial disease Osteoporosis GI bleed Non-smoker DVT (deep venous thrombosis) Abdominal pain Pure hypercholesterolemia Essential hypertension Pressure ulcer of right buttock, stage 3 Decubitus ulcer of left buttock, stage 2 Venous stasis ulcer Hiatal hernia Edema of both legs Osteoarthritis GERD (gastroesophageal reflux disease) Abnormal exercise myocardial perfusion study Palpitations Atherosclerotic heart disease of [place] coronary artery without angina pectoris Leg swelling Hyperpigmentation of skin Lipodermatosclerosis Post-phlebitic dermatosis of both lower extremities Chronic venous hypertension (idiopathic) with inflammation of bilateral lower extremity Localized edema Non-pressure chronic ulcer of left calf with fat layer exposed Generalized weakness Hypertension Chronic venous hypertension (idiopathic) with ulcer of left lower extremity Chronic venous stasis dermatitis Non-pressure chronic ulcer of left ankle with fat layer exposed 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 Cellulitis of left leg Failure to thrive Positional vertigo Ulcer Obesity Hx of venous thrombosis and embolism history of cellulitis of leg Home Medications ?Medication ?Instructions ?Recorded ?Last Taken ?Type potassium chloride 10 mEq 10 meq PO PRN PRN HYPOKALEMI A 10/11/19 12/18/23 History capsule,extended release famotidine 20 mg tablet 20 mg PO BID 30 days #60 tab s 05/24/21 12/24/23 Rx meclizine 25 mg tablet 25 mg PO DAILY PRN Vertigo 0 08/12/21 Unknown History hydroxyzine HCl 10 mg tablet 10 mg PO TID PRN itching 03/14/23 Unknown History latanoprost 0.005 % eye drops 1 drp ophthalmic (eye) Q PM 05/24/23 12/24/23 History torsemide 20 mg tablet 20 mg PO DAILY PRN PRN Edema 10/27/23 Unknown History anastrozole 1 mg tablet 1 mg PO DAILY #30 tabs 01/17 Unknown Rx psyllium husk 0.4 gram capsule 0.4 g PO DAILY 01/18/24 Unknown History (Daily Fiber) irbesartan 75 mg tablet 75 mg PO DAILY 01/29/24 Unkn own History hydroxocobalamin-cobamamide (vit 1 tab PO Q OTHER DAY 04/22/24 Unknown History B12) 2,500 mcg disintegrating tablet (Adeno-Hydroxo B12) ursodiol 250 mg tablet 250 mg PO DAILY 90 days #90 tabs 04/22/24 Unknown Rx rivaroxaban 10 mg tablet (Xarelto) 10 mg PO QDAY #90 t abs 06/26/24 Unknown Rx hydrocortisone 2.5 % topical cream applic topical RAYMUNDO Y PRN itching 10/28/24 Unknown History Allergy/AdvReac Type Severity Reaction Status Date / Time neomycin sulfate (From Allergy Severe Itching Verified 10/21/24 13:20 Neosporin ([id number])) benzethonium chloride (From Allergy Unknown unknown Verified 10/21/24 13:20 Lanacane [place]) benzocaine (From Lanacane Allergy Unknown unknown Verified 10/21/24 13:20 [place]) levofloxacin (From Levaquin) Allergy Unknown Rash Verified 10/21/24 13:20 cefdinir Allergy Other Verified 10/21/24 13:20 ezetimibe (From Zetia) Allergy Itching Verified 10/21/24 13:20 neomycin (Neomycin) Allergy gets in Verified 10/21/24 13:20 blood stream and pass out polymyxin B (Polymyxin B) Allergy Unknown Verified 10/21/24 13:20 Sulfa (Sulfonamide Allergy Unknown Verified 10/21/24 13:20 Antibiotics) tetracycline (Tetracycline) Allergy Itching Verified 10/21/24 13:20 adhesive tape AdvReac Severe skin Verified 10/21/24 13:20 pulling lisinopril AdvReac Intermediate cough Verified 10/21/24 13:20 cephalexin AdvReac Mild Other Verified 10/21/24 13:20 atorvastatin calcium (From AdvReac Pain in Verified 10/21/24 13:20 Lipitor) joints, muscle damage Family History Mother CAD (coronary artery disease) Myocardial infarction Son Hypertension Brother AAA (abdominal aortic aneurysm) Father Diabetes Heart disease CAD (coronary artery disease) Liver disease Other Arthritis Bleeding disorder Blood clot in vein Bowel disease Cancer H/O ulcer disease Osteoporosis Severe allergy Surgical History History of foot surgery History of ERCP History of cholecystectomy History of hernia repair History of left heart catheterization (06/14/13) H/O dilation and curettage Lipoma History of tubal ligation History of cataract surgery Rectal fistula Social History household members: none housing: house current occupational status: employed Smoking Status: Never smoker alcohol intake: never substance use type: does not use caffeine: Yes Type: coffee Number of servings: 3 what type of physical activity do you participate in: none seatbelt use: always do you feel safe at home: Yes ROS ROS ED Constitutional Constitutional ED: Denies chills or weight loss Eyes Eyes: Denies change in vision or diplopia ENT ENT ED: Denies ear pain, rhinorrhea or sore throat Cardiovascular Cardiovascular: Reports chest pain; Denies orthopnea, palpitations or racing heartbeat Respiratory/Chest Respiratory/Chest: Denies cough, dyspnea or orthopnea Gastrointestinal Gastrointestinal: Reports nausea and vomiting; Denies abdominal pain or diarrhea Genitourinary Genitourinary ED: Denies dysuria, hematuria or urinary frequency Musculoskeletal Musculoskeletal: Denies arthralgias or myalgias Integumentary Denies abscess or rash Neurologic Neurologic: Denies headache(s) or weakness Psychiatric Psychiatric: Denies anxiety, depression, suicidal ideation or suicidal thoughts Endocrine Endocrinology: Denies polydipsia, polyphagia or polyuria Allergic/Immunologic Allergic/Immunologic ED: Denies mouth swelling, tongue swelling or urticaria EXAM Physical Exam Const Vital Signs: 10/28/24 02:36 10/28/24 02:36 10/28/24 02:45 Temperature 98.5 F Temperature Source Oral Pulse Rate 79 Respiratory Rate 22 H Blood Pressure 156/58 H Blood Pressure Mean 90 Pulse Ox 98 Oxygen Delivery Method Room Air 10/28/24 04:13 Temperature Temperature Source Pulse Rate 91 Respiratory Rate 18 Blood Pressure Blood Pressure Mean Pulse Ox 97 Oxygen Delivery Method Room Air Positive well nourished and well developed General Appearance ED: well developed HEENT Reports normocephalic, head/scalp atraumatic and moist mucous membranes Eyes PERRL and EOMs intact bilaterally Neck no lymphadenopathy, supple and no JVD Resp normal respiratory effort and clear to auscultation bilaterally Cardio regular rate, regular rhythm and no murmurs GI normal to inspection, nondistended, normoactive bowel sounds and non-tender Palpation: soft Back/Spine no CVA tenderness and normal ROM Extremity normal to inspection General Extremety ED: Negative for edema General Extremity: Negative for edema Neuro oriented x3 and CN's II-XII intact bilaterally Sensorium / Orientation: alert Motor Exam: strength 5/5 throughout Psych mental status grossly normal Mood & Affect: Negative for depressed or tearful Skin no rashes or lesions noted and no wounds MDM MDM MDM Narrative Medical decision making narrative: Differential diagnosis includes but not limited to bleeding esophageal varicosities duodenal and gastric ulcers pancreatitis acute blood loss anemia 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 induced bleeding medical hernia anemia requiring transfusion Patient's white count 7.1 with a hemoglobin of 10.9. This about 1.5 down from her last in January 2024. BUN is elevated at 29 with a creatinine of 0.98 LFTs show transaminases are elevated at 87 and 72 alk phos 176 normal lipase troponin is 26. EKG is nonischemic and shows a sinus rhythm first-degree AV block at a rate of 77. Patient received Protonix as well as Zofran. CTA of the abdomen pelvis was obtained. Please see radiologist full read for details I do not appreciate any active extravasation into the stomach or duodenum. History & Record Review Discussion w/independent historian: Patient and Family Additional record(s) reviewed:: Prior inpatient record, Prior outpatient record, Prior ED visit and Prior labs Lab Data Attestation: I reviewed the patient's lab results. Labs: Laboratory Results - last 24 hr 10/28/24 10/28/24 10/28/24 02:47 02:47 03:58 WBC Cancelled 7.1 Corrected WBC Cancelled RBC Cancelled 3.50 L Hgb Cancelled 10.9 L Hct Cancelled 33.6 L MCV Cancelled 96.0 MCH Cancelled 31.1 MCHC Cancelled 32.4 RDW Std Deviation Cancelled 46.7 H RDW Coeff of Mihir Cancelled 13.2 Plt Count Cancelled 189 MPV Cancelled 11.6 Immature Gran % (Auto) Cancelled 0.300 Neut % (Auto) Cancelled 64.3 Lymph % (Auto) Cancelled 26.0 [place] % (Auto) Cancelled 8.5 Eos % (Auto) Cancelled 0.6 Baso % (Auto) Cancelled 0.3 Absolute Neuts (auto) Cancelled 4.6 Absolute Lymphs (auto) Cancelled 1.84 Total Counted Cancelled Neutrophils % (Manual) Cancelled Band Neutrophils % Cancelled Lymphocytes % (Manual) Cancelled Monocytes % (Manual) Cancelled Eosinophils % (Manual) Cancelled Basophils % (Manual) Cancelled Metamyelocytes % Cancelled Myelocytes % Cancelled Promyelocytes % Cancelled Blast Cells % Cancelled Plasma Cell % (Manual) Cancelled Other Cells % Cancelled Nucleated RBC % Cancelled 0 Nucleated RBCs/100 WBC Cancelled Differential Comment Cancelled Diff Path Review Cancelled Hypersegmented Neuts Cancelled Atypical Lymphocytes Cancelled Reactive Lymphocytes Cancelled Smudge Cells Cancelled Toxic Granulation Cancelled Toxic Vacuolation Cancelled Dohle Bodies Cancelled Radha Rods Cancelled Platelet Estimate Cancelled Plt Morphology Comment Cancelled RBC Morphology Cancelled Cancelled Polychromasia Cancelled Hypochromasia Cancelled Basophilic Stippling Cancelled Anisocytosis Cancelled Microcytosis Cancelled Macrocytosis Cancelled Spherocytes Cancelled Sickle Cells Cancelled Target Cells Cancelled Tear Drop Cells Cancelled Ovalocytes Cancelled Stomatocytes Cancelled [place] Bodies Cancelled Elmo Cells Cancelled Bite Cells Cancelled Crenated Cell Cancelled Acanthocytes (Spur) Cancelled Rouleaux Cancelled Schistocytes Cancelled PT 16.3 H INR 1.3 APTT 24.9 Sodium 137 Potassium 4.6 Chloride 103 Carbon Dioxide 23.1 Anion Gap 11 BUN 29 H Creatinine 0.98 Estim Creat Clear Calc 37.96 L Est GFR (MDRD) Non-Af 56 L BUN/Creatinine Ratio 29.7 H Glucose 112 H Lactic Acid 1.3 Calcium 9.3 Magnesium 1.9 Total Bilirubin 0.54 Direct Bilirubin < 0.08 AST 87 H ALT 72 H Alkaline Phosphatase 176 H Troponin T High Sens 26 H Total Protein 7.0 Albumin 3.3 L Globulin 3.8 Lipase 16 Blood Type A POSITIVE Antibody Screen NEGATIVE Radiography Diagnostic Testing: Clinical Impression(s) from Imaging Studies Abdomen CTA 10/28/24 04:13 IMPRESSION: No gastric distention. Duodenal sweep appears within limits. No evidence of blush of contrast to suggest active GI bleed at this time. [id number] hiatal hernia. Very small portion of the top of the hiatal hernia is excluded from imaging at the top of the scan. Nodular appearing contour to the surface of the liver, can not exclude underlying degree of fibrosis. Prominence of the biliary ductal system although still within limits for post cholecystectomy biliary ectasia, reservoir effect. Reading Location: [facility] EKG Initial EKG: Attestation: I personally reviewed and interpreted this EKG as follows: Comments: Sinus rhythm with a ventricular rate of 77 bpm with first-degree AV block Management Discussion w/another healthcare provider: Hospitalist (Dr. Huff) and Lodging Facilities Manager (Dr. Lundberg) Discharge Plan Dx/Rx/DC Orders Clinical Impression: Acute upper GI bleed, Hernia, hiatal, Acute blood loss anemia Disposition Disposition: [facility]
--- NOTE | 2024-10-28 02:56 | EKG12_ITS ---
Test Reason : CP Blood Pressure : */* mmHG Vent. Rate : 77 BPM Atrial Rate : 77 BPM P-R Int : 290 ms QRS Dur : 100 ms QT Int : 370 ms P-R-T Axes : 52 -25 45 degrees QTcB Int : 418 ms Sinus rhythm with marked sinus arrhythmia with 1st degree A-V block Otherwise normal ECG Confirmed by Jacques Lamb [id number]), editor news MAURO RAMSEY ([id number]) on 11/04/2024 1:17:35 PM Referred By: Confirmed By: Jacques Lamb
[2024-10-28] MEDS: Ondansetron 4 MG/2 ML Vial IV ×3 (03:32→11:59)
[2024-10-28] MEDS: Pantoprazole Sodium 80 MG in 0.9% Normal Saline (50mL Bag) 15 ML 420 MG IV BOLUS (03:33)
[2024-10-28 03:36] LABS: International Normalized Ratio 1.3; Partial Thromboplast Time 24.9 Seconds (24.1-36.2); Prothrombin Time (Protime)PT. 16.3 SECONDS (11.7-14.9)
[2024-10-28 03:44] LABS: Lipase 16 U/L (13-75)
[2024-10-28 03:56] LABS: AST(SGOT) 87 U/L (<=31); Alanine Aminotransfer ALT/SGPT 72 U/L (<=34); Albumin, Serum 3.3 g/dL (3.4-4.8); Alkaline Phosphatase 176 U/L (35-104); Anion Gap 11 (5-15); BUN 29 mg/dL (4-19); BUN/Creat Ratio 29.7 RATIO (10-20); Bilirubin, Direct < 0.08 mg/dL (0.00-0.30); Calcium,Total 9.3 mg/dL (7.6-11.0); Carbon Dioxide 23.1 mmol/L (21.0-32.0); Chloride 103 mmol/L (98-108); Creatinine, Serum 0.98 mg/dL (0.70-1.20); EST Glomerular Filtration Rate 56 (>60); Estimated Creatinine Clearance 37.96 ml/min (50-250); Globulin 3.8 g/dL (2.2-4.2); Glucose 112 mg/dL (70-99); Potassium 4.6 mmol/L (3.3-5.1); Sodium Level 137 mmol/L (133-145); Total Bilirubin 0.54 mg/dL (0.00-1.30)
[2024-10-28 04:04] LABS: Absolute Lymphocyte Count 1.84 X10^3/uL (0.83-4.51); Absolute Neutrophil Count 4.6 X10^3/uL (2.0-7.7); Basophil# 0.02 X10^3/uL; Basophil% 0.3 % (0-1); Eosinophil# 0.04 X10^3/uL; Eosinophils% 0.6 % (0-5); Hematocrit 33.6 % (37-47); Hemoglobin 10.9 g/dL (12.0-15.0); Lymphocyte # 1.84 X10^3/ul (0.83-4.51); Mean Corp Hgb Conc 32.4 g/dL (32-36); Mean Corpuscular Hgb 31.1 pg (27.0-32.0); Mean Platelet Vol. 11.6 fl (6.2-12.0); Monocyte% 8.5 % (0-10); NRBC Flagged by Analyzer 0 % (0-5); Neutrophil # 4.56 X10^3/uL (2.7-7.7); Neutrophil % 64.3 % (47-70); Platelet Count 189 K/mm3 (150-450); RBC Distribution Width CV 13.2 % (11.6-14.6); RBC Distribution Width SD 46.7 fl (35.1-43.9); White Blood Count 7.1 K/mm3 (4.4-11.0)
[2024-10-28 04:08] LABS: Lactic Acid 1.3 mmol/L (0.0-2.0)
[2024-10-28 04:10] LABS: Troponin T High Sensitivity 26 ng/L (<=14)
--- NOTE | 2024-10-28 04:13 | CT_ITS ---
PROCEDURE: CTA ABDOMEN W/WO CONTRAST 10/28/2024 REASON FOR EXAM: UPPER GI BLEED TECHNIQUE: CTA imaging of the abdomen and pelvis with intravenous contrast. Multiplanar and multisequence images were obtained. Coronal and sagittal MIP images CONTRAST: 99 cc Isovue 370 IV One or more dose reduction techniques were used (e.g., Automated exposure control, adjustment of the mA and/or kV according to patient size, use of iterative reconstruction technique). RADIATION DOSE SUMMARY: CTDlvol: 28.50 mGy DLP: 346.50 mGycm COMPARISON: None available FINDINGS: [id number] hiatal hernia. Very small portion of the top of the hiatal hernia is excluded from imaging at the top of the scan. The lung bases appear clear. Nodular appearing contour to the surface of the liver, can not exclude underlying degree of fibrosis. 7 mm low-density focus posterior right lobe of the liver axial 44 may represent hepatic cyst and is too small to further characterize. Status post cholecystectomy. Prominence of the biliary ductal system although still within limits for post cholecystectomy biliary ectasia, reservoir effect. The adrenal glands, kidneys and spleen appear within limits. Pancreas appears within limits. No visualized bowel dilation or free air. Aortoiliac atherosclerotic calcifications without abdominal aortic aneurysm. The celiac, SMA, renal arteries and JADIEL contain contrast as expected. No gastric distention. Duodenal sweep appears within limits. No evidence of blush of contrast to suggest active GI bleed at this time. Multilevel spondylosis/discogenic change. CT/CTA Abdomen W/WO Contrast IMPRESSION: No gastric distention. Duodenal sweep appears within limits. No evidence of alissa sh of contrast to suggest active GI bleed at this time. [id number] hiatal hernia. Very small portion of the top of the hiatal h ernia is excluded from imaging at the top of the scan. Nodular appearing contour to the surface of the liver, can not exclude underlyi ng degree of fibrosis. Prominence of the biliary ductal system although still within limits for post c holecystectomy biliary ectasia, reservoir effect. Reading Location: [id number]
--- NOTE | 2024-10-28 04:35 | HP.PCM.HOS_ITS ---
[facility] - [facility] Date of Service: 10/28/24 Chief Complaint: UGIB with Hematemesis. HPI Narrative BRISSA SOARES, is a 84 F with a past medical history of essential hypertension; on irbesartan and torsemide daily prn, history of nodular goiter, obesity; with BMI of 35.7 this admission, history of fatty liver, history of bilateral lower extremity DVT/PE; on rivaroxaban, history of breast cancer with left axillary mass and regional lymph node metastasis; on anastrozole, chronic bilateral lower extremity lymphedema, chronic venous stasis of LLE; bilateral lower extremity venous ulcerations followed by Dr. Arthur of vascular surgery, history of LLE cellulitis, history of stage II-III decubitus ulcer of buttocks, history of lipodermatosclerosis, history of pancreatitis, history of rectal fistula, history of BPPV; on as needed meclizine, glaucoma; on latanoprost, chronic pruritus; on hydroxyzine 3 times daily as needed and hydrocortisone cream daily as needed, history of IBS, history of umbilical hernia, history of gallbladder sludge with microlithiasis; s/p multiple ERCP's, history of GERD; with hiatal hernia and GI bleed causing black tarry stools (2016); history with PUD and bleeding ulcers on EGD - currently not on treatment followed by Dr. Lundberg of gastroenterology and OA who presents to [facility] ER complaining of upper GI bleed with hematemesis. Ms. Soares reports she ate dinner around 1600 hrs. and did not have any discomfort when eating and she had a normal brown bowel movement earlier in the day. Then later in the evening she began to have hiccups and developed a pressure sensation in her mid chest and then began to vomit bright red blood with clots. Unfortunately, she has been taking her rivaroxaban as prescribed for her previous diagnosis of VTE. She admits to chest pain. She denies associated abdominal pain currently though she is having nausea and vomiting that is refractory to treatment. She also informed the ER physician that the last 2 sticks reported to the time she vomited there was no blood in her emesis. She also denies related fever, chills, changes in vision, runny nose, sore throat, ear pain, palpitations, heart racing, abdominal pain, diarrhea, dysuria, hematuria, arthralgias, myalgias, headache or rash. In the ER she was diagnosed with UGIB with Hematemesis likely due to recurrent PUD suspected to be triggered by Adverse Drug Reaction to DOAC with confirmatory elevated BUN of 29 mg/dL with a normal serum creatinine of 0.98 mg/dL and hemoglobin of 10.9 g/dL present on admission when she was then admitted to the ICU for ongoing care for state that is expected to extend beyond 2 midnights. [facility] Medical History History of breast cancer Mass of left axilla Encounter for education Regional lymph node metastasis present Glaucoma Loss of hearing Wears glasses Cancer Pressure ulcer Fatty liver History of IBS Leg cramps Cellulitis Venous ulcer of left leg Venous ulcer of right leg Lymphedema of right lower extremity Lymphedema of left leg Chronic ulcer of left lower extremity Edema leg Hiatal hernia Venous hypertension, chronic, with inflammation Chronic venous insufficiency Leg wound, left Nodular goiter Wears dentures Post-menopausal Diabetes Ambulates with cane Arthritis Back pain Loss of consciousness History of hiatal hernia Gastric reflux Shortness of breath on exertion History of edema History of echocardiogram History of stress test Hypertension Cardiology follow-up encounter History of bleeding ulcers Choledocholithiasis Peripheral arterial disease Osteoporosis GI bleed Non-smoker DVT (deep venous thrombosis) Abdominal pain Pure hypercholesterolemia Essential hypertension Pressure ulcer of right buttock, stage 3 Decubitus ulcer of left buttock, stage 2 Venous stasis ulcer Hiatal hernia Edema of both legs Osteoarthritis GERD (gastroesophageal reflux disease) Abnormal exercise myocardial perfusion study Palpitations Atherosclerotic heart disease of [place] coronary artery without angina pectoris Leg swelling Hyperpigmentation of skin Lipodermatosclerosis Post-phlebitic dermatosis of both lower extremities Chronic venous hypertension (idiopathic) with inflammation of bilateral lower extremity Localized edema Non-pressure chronic ulcer of left calf with fat layer exposed Generalized weakness Hypertension Chronic venous hypertension (idiopathic) with ulcer of left lower extremity Chronic venous stasis dermatitis Non-pressure chronic ulcer of left ankle with fat layer exposed 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 Cellulitis of left leg Failure to thrive Positional vertigo Ulcer Obesity Hx of venous thrombosis and embolism history of cellulitis of leg Home Medications ?Medication ?Instructions ?Recorded ?Last Taken ?Type potassium chloride 10 mEq 10 meq PO PRN PRN HYPOKALEMI A 10/11/19 12/18/23 History capsule,extended release famotidine 20 mg tablet 20 mg PO BID 30 days #60 tab s 05/24/21 12/24/23 Rx meclizine 25 mg tablet 25 mg PO DAILY PRN Vertigo 0 08/12/21 Unknown History hydroxyzine HCl 10 mg tablet 10 mg PO TID PRN itching 03/14/23 Unknown History latanoprost 0.005 % eye drops 1 drp ophthalmic (eye) Q PM 05/24/23 12/24/23 History torsemide 20 mg tablet 20 mg PO DAILY PRN PRN Edema 10/27/23 Unknown History anastrozole 1 mg tablet 1 mg PO DAILY #30 tabs 01/17 Unknown Rx psyllium husk 0.4 gram capsule 0.4 g PO DAILY 01/18/24 Unknown History (Daily Fiber) irbesartan 75 mg tablet 75 mg PO DAILY 01/29/24 Unkn own History hydroxocobalamin-cobamamide (vit 1 tab PO Q OTHER DAY 04/22/24 Unknown History B12) 2,500 mcg disintegrating tablet (Adeno-Hydroxo B12) ursodiol 250 mg tablet 250 mg PO DAILY 90 days #90 tabs 04/22/24 Unknown Rx rivaroxaban 10 mg tablet (Xarelto) 10 mg PO QDAY #90 t abs 06/26/24 Unknown Rx hydrocortisone 2.5 % topical cream applic topical RAYMUNDO Y PRN itching 10/28/24 Unknown History Allergy/AdvReac Type Severity Reaction Status Date / Time neomycin sulfate (From Allergy Severe Itching Verified 10/21/24 13:20 Neosporin ([id number])) benzethonium chloride (From Allergy Unknown unknown Verified 10/21/24 13:20 Lanacane [place]) benzocaine (From Lanacane Allergy Unknown unknown Verified 10/21/24 13:20 [place]) levofloxacin (From Levaquin) Allergy Unknown Rash Verified 10/21/24 13:20 cefdinir Allergy Other Verified 10/21/24 13:20 ezetimibe (From Zetia) Allergy Itching Verified 10/21/24 13:20 neomycin (Neomycin) Allergy gets in Verified 10/21/24 13:20 blood stream and pass out polymyxin B (Polymyxin B) Allergy Unknown Verified 10/21/24 13:20 Sulfa (Sulfonamide Allergy Unknown Verified 10/21/24 13:20 Antibiotics) tetracycline (Tetracycline) Allergy Itching Verified 10/21/24 13:20 adhesive tape AdvReac Severe skin Verified 10/21/24 13:20 pulling lisinopril AdvReac Intermediate cough Verified 10/21/24 13:20 cephalexin AdvReac Mild Other Verified 10/21/24 13:20 atorvastatin calcium (From AdvReac Pain in Verified 10/21/24 13:20 Lipitor) joints, muscle damage Family History Mother CAD (coronary artery disease) Myocardial infarction Son Hypertension Brother AAA (abdominal aortic aneurysm) Father Diabetes Heart disease CAD (coronary artery disease) Liver disease Other Arthritis Bleeding disorder Blood clot in vein Bowel disease Cancer H/O ulcer disease Osteoporosis Severe allergy Surgical History History of foot surgery History of ERCP History of cholecystectomy History of hernia repair History of left heart catheterization (06/14/13) H/O dilation and curettage Lipoma History of tubal ligation History of cataract surgery Rectal fistula Social History household members: none housing: house current occupational status: employed Smoking Status: Never smoker alcohol intake: never substance use type: does not use caffeine: Yes Type: coffee Number of servings: 3 what type of physical activity do you participate in: none seatbelt use: always do you feel safe at home: Yes ROS ROS Narrative Review of Systems: Constitutional: Patient denies fever or chills. Eyes: Patient denies changes in vision or discharge from eyes. ENT: Patient denies runny nose, sore throat or ear pain. Resp: Patient denies shortness of breath or cough. CV: Patient admits to chest pain but she denies palpitations or heart racing. GI: Patient admits to nausea vomiting with bright red blood but she denies abdominal pain or diarrhea. : Patient denies dysuria, hematuria urinary frequency. MSK: Patient denies arthralgias or myalgias. Skin: Patient denies rash, abscess or jaundice. Psych: Patient denies symptoms of uncontrolled depression or anxiety. Neuro: Patient denies headache, paresthesias or focal neurologic deficits. Allergy: Patient denies lip swelling, tongue swelling or urticaria. Hematology: Patient admits to UGIB with hematemesis as per HPI. Endocrinology: Patient denies polyuria, polydipsia, polyphagia or heat/cold intolerance. 14 point ROS otherwise negative save for positives noted above in HPI. Vital Signs Vital Signs Vital Signs: 10/28/24 02:36 10/28/24 02:36 10/28/24 02:45 Temperature 98.5 F Temperature Source Oral Pulse Rate 79 Respiratory Rate 22 H Blood Pressure 156/58 H Blood Pressure Mean 90 Pulse Ox 98 Oxygen Delivery Method Room Air 10/28/24 04:13 Temperature Temperature Source Pulse Rate 91 Respiratory Rate 18 Blood Pressure Blood Pressure Mean Pulse Ox 97 Oxygen Delivery Method Room Air Weight Weight: 165 lb 5.547 oz Body Mass Index (BMI) 35.6 Physical Exam Const alert and oriented x3 Constitutional Narrative: Moderate distress noted with continued nausea vomiting in setting of obesity and advanced age. General Appearance: cooperative HEENT normocephalic, head/scalp atraumatic, hearing grossly normal bilaterally and moist oral mucous membranes Eyes PERRL and EOMs intact bilaterally Neck no lymphadenopathy, supple and no JVD Resp normal respiratory effort, no retractions, no use of accessory muscles and clear to auscultation bilaterally Cardio regular rate and regular rhythm GI normal to inspection, nondistended, normoactive bowel sounds, soft to palpation, non-tender and non-distended Extremity normal to inspection, full ROM and no clubbing, cyanosis or edema Skin Skin Narrative: Patient has no evidence of rash, abscess, wounds or jaundice. Neuro oriented x3, CN's II-XII intact bilaterally, moves all extremities and no focal motor deficits Sensorium / Orientation: awake, alert, oriented to person, oriented to place and oriented to time Speech: speech normal Psych affect normal Results Medical Records Data Attestation: I reviewed the patient's medical records Lab / Micro Data Attestation: I reviewed the patient's lab results. 10/28/24 03:58 10/28/24 02:47 Labs: Laboratory Results - last 24 hr 10/28/24 02:47: WBC Cancelled, Corrected WBC Cancelled, RBC Cancelled, Hgb Cancelled, Hct Cancelled, MCV Cancelled, MCH Cancelled, MCHC Cancelled, RDW Std Deviation Cancelled, RDW Coeff of Mihir Cancelled, Plt Count Cancelled, MPV Cancelled, Immature Gran % (Auto) Cancelled, Neut % (Auto) Cancelled, Lymph % (Auto) Cancelled, [place] % (Auto) Cancelled, Eos % (Auto) Cancelled, Baso % (Auto) Cancelled, Absolute Neuts (auto) Cancelled, Absolute Lymphs (auto) Cancelled, Total Counted Cancelled, Neutrophils % (Manual) Cancelled, Band Neutrophils % Cancelled, Lymphocytes % (Manual) Cancelled, Monocytes % (Manual) Cancelled, Eosinophils % (Manual) Cancelled, Basophils % (Manual) Cancelled, Metamyelocytes % Cancelled, Myelocytes % Cancelled, Promyelocytes % Cancelled, Blast Cells % Cancelled, Plasma Cell % (Manual) Cancelled, Other Cells % Cancelled, Nucleated RBC % Cancelled, Nucleated RBCs/100 WBC Cancelled, Differential Comment Cancelled, Diff Path Review Cancelled, Hypersegmented Neuts Cancelled, Atypical Lymphocytes Cancelled, Reactive Lymphocytes Cancelled, Smudge Cells Cancelled, Toxic Granulation Cancelled, Toxic Vacuolation Cancelled, Dohle Bodies Cancelled, Radha Rods Cancelled, Platelet Estimate Cancelled, Plt Morphology Comment Cancelled, RBC Morphology Cancelled 10/28/24 02:47: RBC Morphology Cancelled, Polychromasia Cancelled, Hypochromasia Cancelled, Basophilic Stippling Cancelled, Anisocytosis Cancelled, Microcytosis Cancelled, Macrocytosis Cancelled, Spherocytes Cancelled, Sickle Cells Cancelled, Target Cells Cancelled, Tear Drop Cells Cancelled, Ovalocytes Cancelled, Stomatocytes Cancelled, [place] Heart Bodies Cancelled, [employer] Cells Cancelled, Bite Cells Cancelled, Crenated Cell Cancelled, Acanthocytes (Spur) Cancelled, Rouleaux Cancelled, Schistocytes Cancelled, PT 16.3 H, INR 1.3, APTT 24.9, Sodium 137, Potassium 4.6, Chloride 103, Carbon Dioxide 23.1, Anion Gap 11, BUN 29 H, Creatinine 0.98, Estim Creat Clear Calc 37.96 L, Est GFR (MDRD) Non-Af 56 L, BUN/Creatinine Ratio 29.7 H, Glucose 112 H, Lactic Acid 1.3, Calcium 9.3, Total Bilirubin 0.54, Direct Bilirubin < 0.08, AST 87 H, ALT 72 H, Alkaline Phosphatase 176 H, Troponin T High Sens 26 H, Total Protein 7.0, A lbumin 3.3 L, Globulin 3.8, Lipase 16, Blood Type A POSITIVE, Antibody Screen NEGATIVE 10/28/24 03:58: WBC 7.1, RBC 3.50 L, Hgb 10.9 L, Hct 33.6 L, MCV 96.0, MCH 31.1, MCHC 32.4, RDW Std Deviation 46.7 H, RDW Coeff of Mihir 13.2, Plt Count 189, MPV 11.6, Immature Gran % (Auto) 0.300, Neut % (Auto) 64.3, Lymph % (Auto) 26.0, [place] % (Auto) 8.5, Eos % (Auto) 0.6, Baso % (Auto) 0.3, Absolute Neuts (auto) 4.6, Absolute Lymphs (auto) 1.84, Nucleated RBC % 0 Imaging [facility] Imaging Services [address] [place] [address] CTA Abdomen W/WO Contrast MR#: [id number] Acct: [id number] Name: BRISSA SOARES Rep #: [id number] : 1940 F 84 From: James Atkinson MD PCP: GABRIELA Martell Status: REG ER Study: CTA Abdomen W/WO Contrast Date of Exam: 10/28/24 Exam# [id number] Ordering Dr: Alan Aleman DO PROCEDURE: CTA ABDOMEN W/WO CONTRAST 10/28/2024 REASON FOR EXAM: UPPER GI BLEED TECHNIQUE: CTA imaging of the abdomen and pelvis with intravenous contrast. Multiplanar and multisequence images were obtained. Coronal and sagittal MIP images CONTRAST: 99 cc Isovue 370 IV One or more dose reduction techniques were used (e.g., Automated exposure control, adjustment of the mA and/or kV according to patient size, use of iterative reconstruction technique). RADIATION DOSE SUMMARY: CTDlvol: 28.50 mGy DLP: 346.50 mGycm COMPARISON: None available FINDINGS: [id number] hiatal hernia. Very small portion of the top of the hiatal hernia is excluded from imaging at the top of the scan. The lung bases appear clear. Nodular appearing contour to the surface of the liver, can not exclude underlying degree of fibrosis. 7 mm low-density focus posterior right lobe of the liver axial 44 may represent hepatic cyst and is too small to further characterize. Status post cholecystectomy. Prominence of the biliary ductal system although still within limits for post cholecystectomy biliary ectasia, reservoir effect. The adrenal glands, kidneys and spleen appear within limits. Pancreas appears within limits. No visualized bowel dilation or free air. Aortoiliac atherosclerotic calcifications without abdominal aortic aneurysm. The celiac, SMA, renal arteries and JADIEL contain contrast as expected. No gastric distention. Duodenal sweep appears within limits. No evidence of blush of contrast to suggest active GI bleed at this time. Multilevel spondylosis/discogenic change. CT/CTA Abdomen W/WO Contrast IMPRESSION: No gastric distention. Duodenal sweep appears within limits. No evidence of blush of contrast to suggest active GI bleed at this time. [id number] hiatal hernia. Very small portion of the top of the hiatal hernia is excluded from imaging at the top of the scan. Nodular appearing contour to the surface of the liver, can not exclude underlying degree of fibrosis. Prominence of the biliary ductal system although still within limits for post cholecystectomy biliary ectasia, reservoir effect. Reading Location: [id number] CC: GABRIELA Live; Dr. Alan Aleman, DO ~ Crabbing Machine Operator: Signed Assessment & Plan Assessment/Plan (1) Upper GI bleed: (2) Acute blood loss anemia (ABLA): (3) Elevated BUN: (4) Adverse drug reaction: QUALIFIERS: Encounter type: initial encounter Qualified Code(s): T50.905A - Adverse effect of unspecified drugs, medicaments and biological substances, initial encounter (5) DVT (deep venous thrombosis): QUALIFIERS: DVT location: lower extremity Affected thrombotic vein of extremity: unspecified vein of extremity Chronicity: unspecified L aterality: unspecified laterality Qualified Code(s): I82.409 - Acute embolism and thrombosis of unspecified deep veins of unspecified lower extremity (6) Chronic anticoagulation: (7) Obesity (BMI 30-39.9): PLAN: Plan 1. UGIB with Hematemesis likely due to recurrent PUD with confirmatory elevated BUN of 29 mg/dL with a normal serum creatinine of 0.98 mg/dL and hemoglobin of 10.9 g/dL present on admission with ABLA with Intractable Nausea and Vomiting - Admit to ICU. Keep strict NPO. Continue IV pantoprazole infusion. Type & Screen blood and transfuse for hemoglobin <7 g/dL. Check iron studies and ferritin. Give ondansetron IV prn for nausea and vomiting. Give promethazine IM prn for breakthrough nausea. Place scopolamine patch 1.5 mg top q. 72 hours. Finally, we will consult Dr. Lundberg of gastroenterology to see this patient on- rounds in the AM for further recommendations regarding EGD this admission with help appreciated in advance. 2. Adverse Drug Reaction to DOAC used to treat bilateral DVT/PE likely triggering #1 - Hold DOAC and consider IVC filter of bleeding complications persist and contraindicate further anticoagulation. 3. History of GERD; with hiatal hernia and GI bleed causing black tarry stools (2016); history with PUD and bleeding ulcers on EGD - currently not on treatment followed by Dr. Lundberg of gastroenterology located #1 & #2 - Noted. 4. Obesity; with BMI of 35.7 this admission with previously known fatty liver compounding #1 - #3 - Weight loss will be recommended. Check TSH. This complicates her case and may hamper recovery. 5. Essential hypertension; on irbesartan and torsemide daily prn - Hold scheduled antihypertensives in light of #1. 6. History of nodular goiter - Noted. 7. History of breast cancer with Left axillary mass and regional lymph node metastasis; on anastrozole - Restart this agent when she is able to tolerate oral intake. 8. Chronic bilateral lower extremity lymphedema - Noted. 9. Chronic venous stasis of LLE; bilateral lower extremity venous ulcerations followed by Dr. Arthur of vascular surgery - Stable. 10. History of LLE cellulitis - Noted with no evidence of recurrence at this time. 11. History of stage II-III decubitus ulcer of buttocks - Noted. 12. History of lipodermatosclerosis - Noted. 13. History of pancreatitis - Serum lipase 16 U/L present on admission with CT abdomen and pelvis pending final read at this time. 14. History of rectal fistula - Noted with no evidence of recurrence at this time. 15. History of BPPV; on as needed meclizine - Restart this agent when patient resumes oral intake. 16. Glaucoma; on latanoprost - Maintain latanoprost as before. 17. Chronic pruritus; on hydroxyzine 3 times daily as needed and hydrocortisone cream daily as needed - Give diphenhydramine IV prn for pruritis. 18. History of IBS - Noted. 19. History of umbilical hernia - Noted. 20. History of gallbladder sludge with microlithiasis; s/p multiple ERCP's - Noted. 21. OA - Stable. 22. DVT prophylaxis - SCD's only in light of #1 contraindicating chemoprophylaxis. Total time: Approximately (but not less than) 75 minutes. Charges/Coding Visit Charges Inpatient E&M: 67353 Init Hosp L3
[2024-10-28 06:42] LABS: Magnesium 1.9 mg/dL (1.5-2.2)
[2024-10-28] MEDS: Scopolamine 1mg/72hr Patch 1 PATCH TD (06:55)
--- NOTE | 2024-10-28 07:07 | HP.PCM.HOS_ITS ---
HPI - General General Date of Admission: 10/28/24 Chief Complaint: UGIB with Hematemesis. HPI Narrative BRISSA ARRIAGA, is a 84 F who presents [facility] Medical History History of breast cancer Mass of left axilla Encounter for education Regional lymph node metastasis present Glaucoma Loss of hearing Wears glasses Cancer Pressure ulcer Fatty liver History of IBS Leg cramps Cellulitis Venous ulcer of left leg Venous ulcer of right leg Lymphedema of right lower extremity Lymphedema of left leg Chronic ulcer of left lower extremity Edema leg Hiatal hernia Venous hypertension, chronic, with inflammation Chronic venous insufficiency Leg wound, left Nodular goiter Wears dentures Post-menopausal Diabetes Ambulates with cane Arthritis Back pain Loss of consciousness History of hiatal hernia Gastric reflux Shortness of breath on exertion History of edema History of echocardiogram History of stress test Hypertension Cardiology follow-up encounter History of bleeding ulcers Choledocholithiasis Peripheral arterial disease Osteoporosis GI bleed Non-smoker DVT (deep venous thrombosis) Abdominal pain Pure hypercholesterolemia Essential hypertension Pressure ulcer of right buttock, stage 3 Decubitus ulcer of left buttock, stage 2 Venous stasis ulcer Hiatal hernia Edema of both legs Osteoarthritis GERD (gastroesophageal reflux disease) Abnormal exercise myocardial perfusion study Palpitations Atherosclerotic heart disease of [place] coronary artery without angina pectoris Leg swelling Hyperpigmentation of skin Lipodermatosclerosis Post-phlebitic dermatosis of both lower extremities Chronic venous hypertension (idiopathic) with inflammation of bilateral lower extremity Localized edema Non-pressure chronic ulcer of left calf with fat layer exposed Generalized weakness Hypertension Chronic venous hypertension (idiopathic) with ulcer of left lower extremity Chronic venous stasis dermatitis Non-pressure chronic ulcer of left ankle with fat layer exposed 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 Cellulitis of left leg Failure to thrive Positional vertigo Ulcer Obesity Hx of venous thrombosis and embolism history of cellulitis of leg Home Medications ?Medication ?Instructions ?Recorded ?Last Taken ?Type potassium chloride 10 mEq 10 meq PO PRN PRN HYPOKALEMI A 10/11/19 12/18/23 History capsule,extended release famotidine 20 mg tablet 20 mg PO BID 30 days #60 tab s 05/24/21 12/24/23 Rx meclizine 25 mg tablet 25 mg PO DAILY PRN Vertigo 0 08/12/21 Unknown History hydroxyzine HCl 10 mg tablet 10 mg PO TID PRN itching 03/14/23 Unknown History latanoprost 0.005 % eye drops 1 drp ophthalmic (eye) Q PM 05/24/23 12/24/23 History torsemide 20 mg tablet 20 mg PO DAILY PRN PRN Edema 10/27/23 Unknown History anastrozole 1 mg tablet 1 mg PO DAILY #30 tabs 01/17 Unknown Rx psyllium husk 0.4 gram capsule 0.4 g PO DAILY 01/18/24 Unknown History (Daily Fiber) irbesartan 75 mg tablet 75 mg PO DAILY 01/29/24 Unkn own History hydroxocobalamin-cobamamide (vit 1 tab PO Q OTHER DAY 04/22/24 Unknown History B12) 2,500 mcg disintegrating tablet (Adeno-Hydroxo B12) ursodiol 250 mg tablet 250 mg PO DAILY 90 days #90 tabs 04/22/24 Unknown Rx rivaroxaban 10 mg tablet (Xarelto) 10 mg PO QDAY #90 t abs 06/26/24 Unknown Rx hydrocortisone 2.5 % topical cream applic topical RAYMUNDO Y PRN itching 10/28/24 Unknown History Allergy/AdvReac Type Severity Reaction Status Date / Time neomycin sulfate (From Allergy Severe Itching Verified 10/21/24 13:20 Neosporin ([id number])) benzethonium chloride (From Allergy Unknown unknown Verified 10/21/24 13:20 Lanacane [place]) benzocaine (From Lanacane Allergy Unknown unknown Verified 10/21/24 13:20 [place]) levofloxacin (From Levaquin) Allergy Unknown Rash Verified 10/21/24 13:20 cefdinir Allergy Other Verified 10/21/24 13:20 ezetimibe (From Zetia) Allergy Itching Verified 10/21/24 13:20 neomycin (Neomycin) Allergy gets in Verified 10/21/24 13:20 blood stream and pass out polymyxin B (Polymyxin B) Allergy Unknown Verified 10/21/24 13:20 Sulfa (Sulfonamide Allergy Unknown Verified 10/21/24 13:20 Antibiotics) tetracycline (Tetracycline) Allergy Itching Verified 10/21/24 13:20 adhesive tape AdvReac Severe skin Verified 10/21/24 13:20 pulling lisinopril AdvReac Intermediate cough Verified 10/21/24 13:20 cephalexin AdvReac Mild Other Verified 10/21/24 13:20 atorvastatin calcium (From AdvReac Pain in Verified 10/21/24 13:20 Lipitor) joints, muscle damage Family History Mother CAD (coronary artery disease) Myocardial infarction Son Hypertension Brother AAA (abdominal aortic aneurysm) Father Diabetes Heart disease CAD (coronary artery disease) Liver disease Other Arthritis Bleeding disorder Blood clot in vein Bowel disease Cancer H/O ulcer disease Osteoporosis Severe allergy Surgical History History of foot surgery History of ERCP History of cholecystectomy History of hernia repair History of left heart catheterization (06/14/13) H/O dilation and curettage Lipoma History of tubal ligation History of cataract surgery Rectal fistula Social History household members: none housing: house current occupational status: employed Smoking Status: Never smoker alcohol intake: never substance use type: does not use caffeine: Yes Type: coffee Number of servings: 3 what type of physical activity do you participate in: none seatbelt use: always do you feel safe at home: Yes Vital Signs Vital Signs Vital Signs: 10/28/24 02:36 10/28/24 02:36 10/28/24 02:45 Temperature 98.5 F Temperature Source Oral Pulse Rate 79 Respiratory Rate 22 H Blood Pressure 156/58 H Blood Pressure Mean 90 Pulse Ox 98 Oxygen Delivery Method Room Air 10/28/24 04:13 10/28/24 06:00 Temperature Temperature Source Pulse Rate 91 71 Respiratory Rate 18 18 Blood Pressure 168/70 H Blood Pressure Mean 102 Pulse Ox 97 100 Oxygen Delivery Method Room Air Room Air Weight Weight: 75 kg Body Mass Index (BMI) 35.6 Results Lab / Micro Data 10/28/24 03:58 10/28/24 02:47 Labs: Laboratory Results - last 24 hr 10/28/24 02:47: WBC Cancelled, Corrected WBC Cancelled, RBC Cancelled, Hgb Cancelled, Hct Cancelled, MCV Cancelled, MCH Cancelled, MCHC Cancelled, RDW Std Deviation Cancelled, RDW Coeff of Mihir Cancelled, Plt Count Cancelled, MPV Cancelled, Immature Gran % (Auto) Cancelled, Neut % (Auto) Cancelled, Lymph % (Auto) Cancelled, [place] % (Auto) Cancelled, Eos % (Auto) Cancelled, Baso % (Auto) Cancelled, Absolute Neuts (auto) Cancelled, Absolute Lymphs (auto) Cancelled, Total Counted Cancelled, Neutrophils % (Manual) Cancelled, Band Neutrophils % Cancelled, Lymphocytes % (Manual) Cancelled, Monocytes % (Manual) Cancelled, Eosinophils % (Manual) Cancelled, Basophils % (Manual) Cancelled, Metamyelocytes % Cancelled, Myelocytes % Cancelled, Promyelocytes % Cancelled, Blast Cells % Cancelled, Plasma Cell % (Manual) Cancelled, Other Cells % Cancelled, Nucleated RBC % Cancelled, Nucleated RBCs/100 WBC Cancelled, Differential Comment Cancelled, Diff Path Review Cancelled, Hypersegmented Neuts Cancelled, Atypical Lymphocytes Cancelled, Reactive Lymphocytes Cancelled, Smudge Cells Cancelled, Toxic Granulation Cancelled, Toxic Vacuolation Cancelled, Dohle Bodies Cancelled, Radha Rods Cancelled, Platelet Estimate Cancelled, Plt Morphology Comment Cancelled, RBC Morphology Cancelled 10/28/24 02:47: RBC Morphology Cancelled, Polychromasia Cancelled, Hypochromasia Cancelled, Basophilic Stippling Cancelled, Anisocytosis Cancelled, Microcytosis Cancelled, Macrocytosis Cancelled, Spherocytes Cancelled, Sickle Cells Cancelled, Target Cells Cancelled, Tear Drop Cells Cancelled, Ovalocytes Cancelled, Stomatocytes Cancelled, [place] Bodies Cancelled, [place] Cells Cancelled, Bite Cells Cancelled, Crenated Cell Cancelled, Acanthocytes (Spur) Cancelled, Rouleaux Cancelled, Schistocytes Cancelled, PT 16.3 H, INR 1.3, APTT 24.9, Sodium 137, Potassium 4.6, Chloride 103, Carbon Dioxide 23.1, Anion Gap 11, BUN 29 H, Creatinine 0.98, Estim Creat Clear Calc 37.96 L, Est GFR (MDRD) Non-Af 56 L, BUN/Creatinine Ratio 29.7 H, Glucose 112 H, Lactic Acid 1.3, Calcium 9.3, Magnesium 1.9, Total Bilirubin 0.54, Direct Bilirubin < 0.08, AST 87 H, ALT 72 H, Alkaline Phosphatase 176 H, Troponin T High Sens 26 H, Total Protein 7.0, Albumin 3.3 L, Globulin 3.8, Lipase 16, Blood Type A POSITIVE, Antibody Screen NEGATIVE 10/28/24 03:58: WBC 7.1, RBC 3.50 L, Hgb 10.9 L, Hct 33.6 L, MCV 96.0, MCH 31.1, MCHC 32.4, RDW Std Deviation 46.7 H, RDW Coeff of Mihir 13.2, Plt Count 189, MPV 11.6, Immature Gran % (Auto) 0.300, Neut % (Auto) 64.3, Lymph % (Auto) 26.0, [place] % (Auto) 8.5, Eos % (Auto) 0.6, Baso % (Auto) 0.3, Absolute Neuts (auto) 4.6, Absolute Lymphs (auto) 1.84, Nucleated RBC % 0 Imaging Radiology Impression Abdomen CTA 10/28/24 04:13 IMPRESSION: No gastric distention. Duodenal sweep appears within limits. No evidence of blush of contrast to suggest active GI bleed at this time. [id number] hiatal hernia. Very small portion of the top of the hiatal hernia is excluded from imaging at the top of the scan. Nodular appearing contour to the surface of the liver, can not exclude underlying degree of fibrosis. Prominence of the biliary ductal system although still within limits for post cholecystectomy biliary ectasia, reservoir effect. Reading Location: [facility] Assessment & Plan Assessment/Plan PLAN: Plan 1. UGIB with Hematemesis likely due to recurrent PUD with confirmatory elevated BUN of 29 mg/dL with a normal serum creatinine of 0.98 mg/dL and hemoglobin of 10.9 g/dL present on admission with ABLA with Intractable Nausea and Vomiting - Admit to ICU. Keep strict NPO. Continue IV pantoprazole infusion. Type & Screen blood and transfuse for hemoglobin <7 g/dL. Check iron studies and ferritin. Give ondansetron IV prn for nausea and vomiting. Give promethazine IM prn for breakthrough nausea. Place scopolamine patch 1.5 mg top q. 72 hours. Finally, we will consult Dr. Lundberg of gastroenterology to see this patient on- rounds in the AM for further recommendations regarding EGD this admission with help appreciated in advance. 2. Adverse Drug Reaction to DOAC used to treat bilateral DVT/PE likely triggering #1 - Hold DOAC and consider IVC filter of bleeding complications persist and contraindicate further anticoagulation. 3. History of GERD; with hiatal hernia and GI bleed causing black tarry stools (2016); history with PUD and bleeding ulcers on EGD - currently not on treatment followed by Dr. Lundberg of gastroenterology located #1 & #2 - Noted. 4. Obesity; with BMI of 35.7 this admission with previously known fatty liver compounding #1 - #3 - Weight loss will be recommended. Check TSH. This complicates her case and may hamper recovery. 5. Essential hypertension; on irbesartan and torsemide daily prn - Hold scheduled antihypertensives in light of #1. 6. History of nodular goiter - Noted. 7. History of breast cancer with Left axillary mass and regional lymph node metastasis; on anastrozole - Restart this agent when she is able to tolerate oral intake. 8. Chronic bilateral lower extremity lymphedema - Noted. 9. Chronic venous stasis of LLE; bilateral lower extremity venous ulcerations followed by Dr. Arthur of vascular surgery - Stable.
--- NOTE | 2024-10-28 07:19 | PCM.PN.HOSP ---
Reason for Visit Reason for Visit: Diagnoses Acute posthemorrhagic anemia (10/28/24) Obesity, unspecified (10/28/24) Acute embolism and thrombosis of unspecified deep veins of unspecified lower extremity (10/28/24) Gastrointestinal hemorrhage, unspecified (10/28/24) Abnormal finding of blood chemistry, unspecified (10/28/24) Adverse effect of unspecified drugs, medicaments and biological substances, initial encounter (10/28/24) prison (current) use of 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s (10/28/24) Subjective Subjective Patient is an 84-year-old lady with history of VTE with previous PE and DVT a systemic anticoagulation with rivaroxaban who presented with hematemesis. Admitted to the intensive care unit where patient is currently undergoing management Objective Data Objective Data Vital Signs: Vital Signs Temp Pulse Resp BP Pulse Ox O2 Del Method 98.5 F 71 18 168/70 H 100 Room Air 10/28/24 02:36 10/28/24 06:00 10/28/24 06:00 10/28/24 06:00 10/28/24 06:00 10/28/24 06:00 Oxygen Delivery Method Room Air Weight: 75 kg Body Mass Index (BMI) 35.6 Intake & Output: Intake and Output for Last 24 Hours 10/26/24 10/27/24 10/28/24 23:59 23:59 23:59 Intake Total 35 / 35 Balance 35 / 35 Lab / Micro Data 10/28/24 03:58 10/28/24 02:47 Labs: Laboratory Results - last 24 hr 10/28/24 02:47: WBC Cancelled, Corrected WBC Cancelled, RBC Cancelled, Hgb Cancelled, Hct Cancelled, MCV Cancelled, MCH Cancelled, MCHC Cancelled, RDW Std Deviation Cancelled, RDW Coeff of Mihir Cancelled, Plt Count Cancelled, MPV Cancelled, Immature Gran % (Auto) Cancelled, Neut % (Auto) Cancelled, Lymph % (Auto) Cancelled, [place] % (Auto) Cancelled, Eos % (Auto) Cancelled, Baso % (Auto) Cancelled, Absolute Neuts (auto) Cancelled, Absolute Lymphs (auto) Cancelled, Total Counted Cancelled, Neutrophils % (Manual) Cancelled, Band Neutrophils % Cancelled, Lymphocytes % (Manual) Cancelled, Monocytes % (Manual) Cancelled, Eosinophils % (Manual) Cancelled, Basophils % (Manual) Cancelled, Metamyelocytes % Cancelled, Myelocytes % Cancelled, Promyelocytes % Cancelled, Blast Cells % Cancelled, Plasma Cell % (Manual) Cancelled, Other Cells % Cancelled, Nucleated RBC % Cancelled, Nucleated RBCs/100 WBC Cancelled, Differential Comment Cancelled, Diff Path Review Cancelled, Hypersegmented Neuts Cancelled, Atypical Lymphocytes Cancelled, Reactive Lymphocytes Cancelled, Smudge Cells Cancelled, Toxic Granulation Cancelled, Toxic Vacuolation Cancelled, Dohle Bodies Cancelled, Radha Rods Cancelled, Platelet Estimate Cancelled, Plt Morphology Comment Cancelled, RBC Morphology Cancelled 10/28/24 02:47: RBC Morphology Cancelled, Polychromasia Cancelled, Hypochromasia Cancelled, Basophilic Stippling Cancelled, Anisocytosis Cancelled, Microcytosis Cancelled, Macrocytosis Cancelled, Spherocytes Cancelled, Sickle Cells Cancelled, Target Cells Cancelled, Tear Drop Cells Cancelled, Ovalocytes Cancelled, Stomatocytes Cancelled, [place] Bodies Cancelled, [place] Cells Cancelled, Bite Cells Cancelled, Crenated Cell Cancelled, Acanthocytes (Spur) Cancelled, Rouleaux Cancelled, Schistocytes Cancelled, PT 16.3 H, INR 1.3, APTT 24.9, Sodium 137, Potassium 4.6, Chloride 103, Carbon Dioxide 23.1, Anion Gap 11, BUN 29 H, Creatinine 0.98, Estim Creat Clear Calc 37.96 L, Est GFR (MDRD) Non-Af 56 L, BUN/Creatinine Ratio 29.7 H, Glucose 112 H, Lactic Acid 1.3, Calcium 9.3, Magnesium 1.9, Total Bilirubin 0.54, Direct Bilirubin < 0.08, AST 87 H, ALT 72 H, Alkaline Phosphatase 176 H, Troponin T High Sens 26 H, Total Protein 7.0, Albumin 3.3 L, Globulin 3.8, Lipase 16, Blood Type A POSITIVE, Antibody Screen NEGATIVE 10/28/24 03:58: WBC 7.1, RBC 3.50 L, Hgb 10.9 L, Hct 33.6 L, MCV 96.0, MCH 31.1, MCHC 32.4, RDW Std Deviation 46.7 H, RDW Coeff of Mihir 13.2, Plt Count 189, MPV 11.6, Immature Gran % (Auto) 0.300, Neut % (Auto) 64.3, Lymph % (Auto) 26.0, [place] % (Auto) 8.5, Eos % (Auto) 0.6, Baso % (Auto) 0.3, Absolute Neuts (auto) 4.6, Absolute Lymphs (auto) 1.84, Nucleated RBC % 0 Radiography Diagnostic Testing: Radiology Impression Abdomen CTA 10/28/24 04:13 IMPRESSION: No gastric distention. Duodenal sweep appears within limits. No evidence of blush of contrast to suggest active GI bleed at this time. [id number] hiatal hernia. Very small portion of the top of the hiatal hernia is excluded from imaging at the top of the scan. Nodular appearing contour to the surface of the liver, can not exclude underlying degree of fibrosis. Prominence of the biliary ductal system although still within limits for post cholecystectomy biliary ectasia, reservoir effect. Reading Location: [facility] Physical Exam Narrative GENERAL: cooperative HEENT: Atraumatic; normocephalic EYES; Anicteric, Normal Conjunctiva NECK; supple, normal thyroid, RESPIRATORY: Diminished to auscultation CARDIOVASCULAR: Regular S1 S2, GI: soft, normoactive bowel sounds, : No Renal angle tenderness; EXTREMITIES: Bilateral stasis dermatitis, MUSCULOSKELETAL: no muscle wasting NEURO: Awake; no lateralizing signs. SKIN: No Rash PSYCH; Flat affect Assessment & Plan Assessment/Plan (1) Acute blood loss anemia: PLAN: Plan Patient is an 84-year-old lady with history of VTE with previous PE and DVT a systemic anticoagulation with rivaroxaban who presented with hematemesis 1. Upper GI bleed ? Suspected to be secondary to peptic ulcer disease versus gastritis exacerbated by the use of systemic anticoagulation?rivaroxaban. Patient admitted to the intensive care unit. Patient did receive Protonix bolus in the emergency department ordered Protonix drip. Patient kept n.p.o. private and screened For 2 unit PRBC. Also ordered H&H every 4 hours with plans to transfuse if patient is deemed to be symptomatic or hemoglobin falls below 7. Consult placed to GI for endoscopic evaluation and intervention if warranted 2. Anemia Secondary to acute blood loss anemia management as discussed above 3. History of bilateral PE/DVT ? Patient is on systemic anticoagulation with rivaroxaban which is currently being held given her presentation 4. Hypertension ? Patient antihypertensive had been held on admission given concern for her presentation patient blood pressure is however markedly elevated. Added hydralazine as needed for systolic blood pressure greater than 160 5 .History of left breast CA ? With previous partial mastectomy. Patient is on anastrozole 6. Class II obesity with BMI of 35.7 ? Complicating care weight loss advised 7. Bilateral stasis dermatitis ? Consult placed to wound care nurse for heber wrap 8. DVT prophylaxis ? Patient is on systemic anticoagulation currently being held given her presentation Critical time spent in the patient's overall evaluation,decision-making process, review of diagnostic data, adjustment of management, discussion with other providers, nursing nursing and ancillary staff involved in patient's care documentation, 40 Minutes Charges/Coding Procedures Hospitalists Procedures: 10999 Critical Care 1st Hr
[2024-10-28] MEDS: 0.9% Normal Saline (1000mL) 1,000 ML 999 ML IV (08:14)
[2024-10-28] MEDS: Lactated Ringers 1,000 ML 125 ML IV ×2 (09:40→18:08)
[2024-10-28] MEDS: proCHLORPERazine 10 MG/2 ML Vial IV ×2 (09:42→14:58)
[2024-10-28 10:23] LABS: Hematocrit 35.4 % (37-47); Hemoglobin 11.3 g/dL (12.0-15.0)
[2024-10-28] MEDS: hydrALAZINE 20 MG/ML Vial 10 MG IV (10:31)
[2024-10-28] MEDS: Pantoprazole Sodium 80 MG in 0.9% Normal Saline (100mL Bag) 80 ML 10 MG CONT INF ×2 (10:31→19:54)
[2024-10-28] MEDS: Morphine 2 MG/ML Syringe IV ×2 (11:20→14:58)
--- NOTE | 2024-10-28 12:02 | CON.PCM.GI_ITS ---
HPI Consult Data Date of Consult: 10/28/24 HPI Narrative Reason for Consultation: GI bleed HPI Narrative: BRISSA ARRIAGA, is [id number] female who presented to the emergency room with a chief complaint vomiting blood. Patient states she has a history of stomach ulcers. She also states that she also has a history of a hiatal hernia and recurrent pancreatitis. She was hemodynamically stable in the ED. Her hemoglobin decreased from 12.4 only down to 10.9 in the ED. 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 She ate dinner around 4 PM yesterday and did not have any discomfort with eating. Late tonight she began to have hiccups and developed a pressure in her mid chest and began to vomit bright red blood with some clots. CTA of the abdomen pelvis: [id number] hiatal hernia. Very small portion of the top of the hiatal hernia is excluded from imaging at the top of the scan. The lung bases appear clear. Nodular appearing contour to the surface of the liver, can not exclude underlying degree of fibrosis. 7 mm low-density focus posterior right lobe of the liver axial 44 may represent hepatic cyst and is too small to further characterize. Status post cholecystectomy. Prominence of the biliary ductal system although still within limits for post cholecystectomy biliary ectasia, reservoir effect. I have seen her in the past before for abdominal pain and constipation. She does have a history of a dilated common bile duct and suspected choledocholithiasis causing recurrent pancreatitis. Will placed on ursodiol therapy for prevention of recurrent choledocholithiasis. [facility] Medical History History of breast cancer Mass of left axilla Encounter for education Regional lymph node metastasis present Glaucoma Loss of hearing Wears glasses Cancer Pressure ulcer Fatty liver History of IBS Leg cramps Cellulitis Venous ulcer of left leg Venous ulcer of right leg Lymphedema of right lower extremity Lymphedema of left leg Chronic ulcer of left lower extremity Edema leg Hiatal hernia Venous hypertension, chronic, with inflammation Chronic venous insufficiency Leg wound, left Nodular goiter Wears dentures Post-menopausal Diabetes Ambulates with cane Arthritis Back pain Loss of consciousness History of hiatal hernia Gastric reflux Shortness of breath on exertion History of edema History of echocardiogram History of stress test Hypertension Cardiology follow-up encounter History of bleeding ulcers Choledocholithiasis Peripheral arterial disease Osteoporosis GI bleed Non-smoker DVT (deep venous thrombosis) Abdominal pain Pure hypercholesterolemia Essential hypertension Pressure ulcer of right buttock, stage 3 Decubitus ulcer of left buttock, stage 2 Venous stasis ulcer Hiatal hernia Edema of both legs Osteoarthritis GERD (gastroesophageal reflux disease) Abnormal exercise myocardial perfusion study Palpitations Atherosclerotic heart disease of [place] coronary artery without angina pectoris Leg swelling Hyperpigmentation of skin Lipodermatosclerosis Post-phlebitic dermatosis of both lower extremities Chronic venous hypertension (idiopathic) with inflammation of bilateral lower extremity Localized edema Non-pressure chronic ulcer of left calf with fat layer exposed Generalized weakness Hypertension Chronic venous hypertension (idiopathic) with ulcer of left lower extremity Chronic venous stasis dermatitis Non-pressure chronic ulcer of left ankle with fat layer exposed 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 Cellulitis of left leg Failure to thrive Positional vertigo Ulcer Obesity Hx of venous thrombosis and embolism history of cellulitis of leg Home Medications ?Medication ?Instructions ?Recorded ?Last Taken ?Type potassium chloride 10 mEq 10 meq PO PRN PRN HYPOKALEMI A 10/11/19 12/18/23 History capsule,extended release famotidine 20 mg tablet 20 mg PO BID 30 days #60 tab s 05/24/21 10/27/24 Rx meclizine 25 mg tablet 25 mg PO DAILY PRN Vertigo 0 08/12/21 Unknown History hydroxyzine HCl 10 mg tablet 10 mg PO TID PRN itching 03/14/23 Unknown History latanoprost 0.005 % eye drops 1 drp ophthalmic (eye) Q PM eye 05/24/23 10/27/24 History drops torsemide 20 mg tablet 20 mg PO DAILY PRN PRN Edema 10/27/23 Unknown History anastrozole 1 mg tablet 1 mg PO DAILY #30 tabs 01/1710/27/24 Rx psyllium husk 0.4 gram capsule 0.4 g PO DAILY suppleme nt 01/18/24 Unknown History (Daily Fiber) irbesartan 75 mg tablet 75 mg PO DAILY blood pressur e 01/29/24 10/27/24 History hydroxocobalamin-cobamamide (vit 1 tab PO Q OTHER DAY supplement 04/22/24 Unknown History B12) 2,500 mcg disintegrating tablet (Adeno-Hydroxo B12) ursodiol 250 mg tablet 250 mg PO DAILY 90 days #90 tabs 11/18/24 05/25/25 Rx rivaroxaban 10 mg tablet (Xarelto) 10 mg PO QDAY #90 t abs 06/26/24 10/27/24 Rx hydrocortisone 2.5 % topical cream applic topical RAYMUNDO Y PRN itching 10/28/24 10/26/24 History Allergy/AdvReac Type Severity Reaction Status Date / Time neomycin sulfate (From Allergy Severe Itching Verified 10/21/24 13:20 Neosporin ([id number])) benzethonium chloride (From Allergy Unknown unknown Verified 10/21/24 13:20 Lanacane [place]) benzocaine (From Lanacane Allergy Unknown unknown Verified 10/21/24 13:20 Liberty) levofloxacin (From Levaquin) Allergy Unknown Rash Verified 10/21/24 13:20 cefdinir Allergy Other Verified 10/21/24 13:20 ezetimibe (From Zetia) Allergy Itching Verified 10/21/24 13:20 neomycin (Neomycin) Allergy gets in Verified 10/21/24 13:20 blood stream and pass out polymyxin B (Polymyxin B) Allergy Unknown Verified 10/21/24 13:20 Sulfa (Sulfonamide Allergy Unknown Verified 10/21/24 13:20 Antibiotics) tetracycline (Tetracycline) Allergy Itching Verified 10/21/24 13:20 adhesive tape AdvReac Severe skin Verified 10/21/24 13:20 pulling lisinopril AdvReac Intermediate cough Verified 10/21/24 13:20 cephalexin AdvReac Mild Other Verified 10/21/24 13:20 atorvastatin calcium (From AdvReac Pain in Verified 10/21/24 13:20 Lipitor) joints, muscle damage Family History Mother CAD (coronary artery disease) Myocardial infarction Son Hypertension Brother AAA (abdominal aortic aneurysm) Father Diabetes Heart disease CAD (coronary artery disease) Liver disease Other Arthritis Bleeding disorder Blood clot in vein Bowel disease Cancer H/O ulcer disease Osteoporosis Severe allergy Surgical History History of foot surgery History of ERCP History of cholecystectomy History of hernia repair History of left heart catheterization (06/14/13) H/O dilation and curettage Lipoma History of tubal ligation History of cataract surgery Rectal fistula Social History household members: none housing: house current occupational status: employed Smoking Status: Never smoker alcohol intake: never substance use type: does not use caffeine: Yes Type: coffee Number of servings: 3 what type of physical activity do you participate in: none seatbelt use: always do you feel safe at home: Yes ROS ROS Narrative Review of Systems: Constitutional: Patient denies fever or chills. Eyes: Patient denies changes in vision or discharge from eyes. ENT: Patient denies runny nose, sore throat or ear pain. Resp: Patient denies shortness of breath or cough. CV: Patient admits to chest pain but she denies palpitations or heart racing. GI: Patient admits to nausea vomiting with bright red blood but she denies abdominal pain or diarrhea. : Patient denies dysuria, hematuria urinary frequency. MSK: Patient denies arthralgias or myalgias. Skin: Patient denies rash, abscess or jaundice. Psych: Patient denies symptoms of uncontrolled depression or anxiety. Neuro: Patient denies headache, paresthesias or focal neurologic deficits. Allergy: Patient denies lip swelling, tongue swelling or urticaria. Hematology: Patient admits to UGIB with hematemesis as per HPI. Endocrinology: Patient denies polyuria, polydipsia, polyphagia or heat/cold intolerance. 14 point ROS otherwise negative save for positives noted above in HPI. Physical Exam Narrative GENERAL: cooperative HEENT: Atraumatic; normocephalic EYES; Anicteric, Normal Conjunctiva NECK; supple, normal thyroid, RESPIRATORY: Diminished to auscultation CARDIOVASCULAR: Regular S1 S2, GI: soft, normoactive bowel sounds, : No Renal angle tenderness; EXTREMITIES: Bilateral stasis dermatitis, MUSCULOSKELETAL: no muscle wasting NEURO: Awake; no lateralizing signs. SKIN: No Rash PSYCH; Flat affect Lab / Micro Data 10/28/24 09:40 10/28/24 02:47 Labs: Laboratory Results - last 24 hr 10/28/24 02:47: WBC Cancelled, Corrected WBC Cancelled, RBC Cancelled, Hgb Cancelled, Hct Cancelled, MCV Cancelled, MCH Cancelled, MCHC Cancelled, RDW Std Deviation Cancelled, RDW Coeff of Mihir Cancelled, Plt Count Cancelled, MPV Cancelled, Immature Gran % (Auto) Cancelled, Neut % (Auto) Cancelled, Lymph % (Auto) Cancelled, Hughes % (Auto) Cancelled, Eos % (Auto) Cancelled, Baso % (Auto) Cancelled, Absolute Neuts (auto) Cancelled, Absolute Lymphs (auto) Cancelled, Total Counted Cancelled, Neutrophils % (Manual) Cancelled, Band Neutrophils % Cancelled, Lymphocytes % (Manual) Cancelled, Monocytes % (Manual) Cancelled, Eosinophils % (Manual) Cancelled, Basophils % (Manual) Cancelled, Metamyelocytes % Cancelled, Myelocytes % Cancelled, Promyelocytes % Cancelled, Blast Cells % Cancelled, Plasma Cell % (Manual) Cancelled, Other Cells % Cancelled, Nucleated RBC % Cancelled, Nucleated RBCs/100 WBC Cancelled, Differential Comment Cancelled, Diff Path Review Cancelled, Hypersegmented Neuts Cancelled, Atypical Lymphocytes Cancelled, Reactive Lymphocytes Cancelled, Smudge Cells Cancelled, Toxic Granulation Cancelled, Toxic Vacuolation Cancelled, Dohle Bodies Cancelled, Radha Rods Cancelled, Platelet Estimate Cancelled, Plt Morphology Comment Cancelled, RBC Morphology Cancelled 10/28/24 02:47: RBC Morphology Cancelled, Polychromasia Cancelled, Hypochromasia Cancelled, Basophilic Stippling Cancelled, Anisocytosis Cancelled, Microcytosis Cancelled, Macrocytosis Cancelled, Spherocytes Cancelled, Sickle Cells Cancelled, Target Cells Cancelled, Tear Drop Cells Cancelled, Ovalocytes Cancelled, Stomatocytes Cancelled, [place] Bodies Cancelled, [place] Cells Cancelled, Bite Cells Cancelled, Crenated Cell Cancelled, Acanthocytes (Spur) Cancelled, Rouleaux Cancelled, Schistocytes Cancelled, PT 16.3 H, INR 1.3, APTT 24.9, Sodium 137, Potassium 4.6, Chloride 103, Carbon Dioxide 23.1, Anion Gap 11, BUN 29 H, Creatinine 0.98, Estim Creat Clear Calc 37.96 L, Est GFR (MDRD) Non-Af 56 L, BUN/Creatinine Ratio 29.7 H, Glucose 112 H, Lactic Acid 1.3, Calcium 9.3, Magnesium 1.9, Total Bilirubin 0.54, Direct Bilirubin < 0.08, AST 87 H, ALT 72 H, Alkaline Phosphatase 176 H, Troponin T High Sens 26 H, Total Protein 7.0, Albumin 3.3 L, Globulin 3.8, Lipase 16, Blood Type A POSITIVE, Antibody Screen NEGATIVE, Crossmatch See Detail 10/28/24 03:58: WBC 7.1, RBC 3.50 L, Hgb 10.9 L, Hct 33.6 L, MCV 96.0, MCH 31.1, MCHC 32.4, RDW Std Deviation 46.7 H, RDW Coeff of Mihir 13.2, Plt Count 189, MPV 11.6, Immature Gran % (Auto) 0.300, Neut % (Auto) 64.3, Lymph % (Auto) 26.0, Hughes % (Auto) 8.5, Eos % (Auto) 0.6, Baso % (Auto) 0.3, Absolute Neuts (auto) 4.6, Absolute Lymphs (auto) 1.84, Nucleated RBC % 0 10/28/24 09:40: Hgb 11.3 L, Hct 35.4 L Imaging Radiology Impression Abdomen CTA 10/28/24 04:13 IMPRESSION: No gastric distention. Duodenal sweep appears within limits. No evidence of blush of contrast to suggest active GI bleed at this time. [id number] hiatal hernia. Very small portion of the top of the hiatal hernia is excluded from imaging at the top of the scan. Nodular appearing contour to the surface of the liver, can not exclude underlying degree of fibrosis. Prominence of the biliary ductal system although still within limits for post cholecystectomy biliary ectasia, reservoir effect. Reading Location: [id number] Assessment & Plan Assessment/Plan (1) Acute blood loss anemia: (2) Hernia, hiatal: (3) Chronic anticoagulation: PLAN: (4) Upper GI bleed: (5) Acute blood loss anemia (ABLA): (6) Elevated BUN: (7) Adverse drug reaction: QUALIFIERS: Encounter type: initial encounter Qualified Code(s): T50.905A - Adverse effect of unspecified drugs, medicaments and biological substances, initial encounter (8) DVT (deep venous thrombosis): QUALIFIERS: DVT location: lower extremity Affected thrombotic vein of extremity: unspecified vein of extremity Chronicity: unspecified L aterality: unspecified laterality Qualified Code(s): I82.409 - Acute embolism and thrombosis of unspecified deep veins of unspecified lower extremity (9) Obesity (BMI 30-39.9): PLAN: Plan 84-year-old with multiple comorbidities on Xarelto for bilateral DVTs presents with vomiting blood. She likely has a UGIB with Hematemesis likely due to recurrent PUD, Darin's erosions, hiatal hernia, peptic ulcer disease, angiodysplasia or gastric antral vascular ectasia. She does not seem to be clinically unstable at this time. Patient should continue PPI drip. As needed antinausea medications. She can have clear liquids and n.p.o. past night for EGD tomorrow. Charges/Coding Visit Charges Inpatient E&M: 19568 Init Hosp L3
[2024-10-28 14:39] LABS: Hematocrit 29.5 % (37-47); Hemoglobin 9.7 g/dL (12.0-15.0)
[2024-10-28 18:02] LABS: Hematocrit 27.5 % (37-47); Hemoglobin 9.1 g/dL (12.0-15.0)
[2024-10-28] MEDS: Latanoprost 0.005% 1 Bottle 1 DRP OPHTHALMIC (21:23)
[2024-10-28 21:48] LABS: Hematocrit 26.6 % (37-47); Hemoglobin 8.7 g/dL (12.0-15.0)
[2024-10-28] MEDS: Midodrine HCl 5 MG Tablet 10 MG PO (23:45)
[2024-10-29] VITALS (29 sets, daily range): BP systolic 88–145; BP diastolic 40–76; PULSE 45–87; RESP 9–21; TEMP 36.2–36.9; O2SAT 94–100; BMI 36.8
[2024-10-29] MEDS: 0.9% Normal Saline (500mL Bag) 500 ML 999 ML IV (02:35)
[2024-10-29 03:42] LABS: Anion Gap 7 (5-15); BUN 27 mg/dL (4-19); BUN/Creat Ratio 31.8 RATIO (10-20); Calcium,Total 8.3 mg/dL (7.6-11.0); Chloride 111 mmol/L (98-108); Creatinine, Serum 0.84 mg/dL (0.70-1.20); EST Glomerular Filtration Rate 68 (>60); Estimated Creatinine Clearance 43.57 ml/min (50-250); Glucose 83 mg/dL (70-99); Magnesium 1.8 mg/dL (1.5-2.2); Phosphorus 2.8 mg/dL (2.7-4.5); Potassium 4.1 mmol/L (3.3-5.1); Sodium Level 141 mmol/L (133-145)
[2024-10-29 03:44] LABS: Hematocrit 27.1 % (37-47); Hemoglobin 8.6 g/dL (12.0-15.0); Mean Corp Hgb Conc 31.7 g/dL (32-36); Mean Corpuscular Hgb 31.2 pg (27.0-32.0); Mean Corpuscular Volume 98.2 fL (81-99); Mean Platelet Vol. 11.8 fl (6.2-12.0); Platelet Count 161 K/mm3 (150-450); RBC Distribution Width CV 13.6 % (11.6-14.6); RBC Distribution Width SD 48.8 fl (35.1-43.9); Red Blood Count 2.76 M/mm3 (4.2-5.4); White Blood Count 7.1 K/mm3 (4.4-11.0)
[2024-10-29 04:08] LABS: Color, Urine Yellow (Yellow); Glucose, Dipstick Normal (Normal); Ketone-Dipstick Negative (Negative); Leukocyte Esterase-Dipstick 25 /ul (Negative); Mucous, Urine 0 SEEN /hpf (<or=2+); Nitrite-Dipstick Negative (Negative); Occult Blood-Urine 150 /ul (Negative); Protein-Dipstick 30 mg/dl (Negative); Specific Gravity, Urine 1.015 (1.002-1.030); Urine Bilirubin Dipstick Negative (Negative); Urine Clarity Sl. Cloudy (Clear); Urine Urobilinogen Normal (Normal)
[2024-10-29 04:15] LABS: Bacteria 4+ /hpf (None Seen); Red Blood Cells-Urine 0-5 SEEN /hpf (0-5); Squamous Epithelial Cells - UA 0-5 SEEN /hpf (5-10); White Blood Cells 0-5 SEEN /hpf (0-5)
[2024-10-29] MEDS: Pantoprazole Sodium 80 MG in 0.9% Normal Saline (100mL Bag) 80 ML 10 MG CONT INF (05:04)
--- NOTE | 2024-10-29 07:11 | PN.HOSP_ITS ---
Reason for Visit Reason for Visit: Diagnoses Acute posthemorrhagic anemia (10/28/24) Obesity, unspecified (10/28/24) Acute embolism and thrombosis of unspecified deep veins of unspecified lower extremity (10/28/24) Gastrointestinal hemorrhage, unspecified (10/28/24) Abnormal finding of blood chemistry, unspecified (10/28/24) Adverse effect of unspecified drugs, medicaments and biological substances, initial encounter (10/28/24) longterm (current) use of 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s (10/28/24) Subjective Subjective Patient was kept n.p.o. after midnight with plans for patient to undergo EGD by GI. Patient did experience significant drop in hemoglobin level however currently does not meet criteria for blood transfusion. Patient had urinalysis obtained during the early hours of the morning came back abnormal patient subsequently started on ceftriaxone Objective Data Objective Data Vital Signs: Vital Signs Temp Pulse Resp BP Pulse Ox O2 Del Method 97.6 F L 54 L 11 L 109/48 L 98 Room Air 10/29/24 04:00 10/29/24 07:00 10/29/24 07:00 10/29/24 07:00 10/29/24 07:00 10/29/24 07:00 Oxygen Delivery Method Room Air Weight: 77.2 kg Body Mass Index (BMI) 36.8 Intake & Output: Intake and Output for Last 24 Hours 10/27/24 10/28/24 10/29/24 23:59 23:59 23:59 Intake Total 2128.83 / 2128.83 1591.67 / 1591.67 Output Total 450 / 450 200 / 200 Balance 1678.83 / 1678.83 1391.67 / 1391.67 Lab / Micro Data 10/29/24 03:10 10/29/24 03:10 Labs: Laboratory Results - last 24 hr 10/28/24 02:47: Crossmatch See Detail 10/28/24 09:40: Hgb 11.3 L, Hct 35.4 L 10/28/24 14:25: Hgb 9.7 L, Hct 29.5 L 10/28/24 17:50: Hgb 9.1 L, Hct 27.5 L 10/28/24 21:30: Hgb 8.7 L, Hct 26.6 L 10/29/24 02:50: Urine Color Yellow, Urine Clarity Sl. Cloudy, Urine pH 6.0, Ur Specific [place] 1.015, Urine Protein 30 H, Urine Glucose (UA) Normal, Urine Ketones Negative, Urine Occult Blood 150 H, Urine Nitrite Negative, Urine Bilirubin Negative, Urine Urobilinogen Normal, Ur Leukocyte Esterase 25 H, Urine RBC 0-5 SEEN, Urine WBC 0-5 SEEN, Ur Squamous Epith Cells 0-5 SEEN, Urine Bacteria 4+, Urine Mucus 0 SEEN 10/29/24 03:10: WBC 7.1, RBC 2.76 L, Hgb 8.6 L, Hct 27.1 L, MCV 98.2, MCH 31.2, MCHC 31.7 L, RDW Std Deviation 48.8 H, RDW Coeff of Mihir 13.6, Plt Count 161, MPV 11.8, Sodium 141, Potassium 4.1, Chloride 111 H, Carbon Dioxide 23.0, Anion Gap 7, BUN 27 H, Creatinine 0.84, Estim Creat Clear Calc 43.57 L, Est GFR (MDRD) Non-Af 68, BUN/Creatinine Ratio 31.8 H, Glucose 83, Calcium 8.3, Phosphorus 2.8, Magnesium 1.8 Physical Exam Narrative GENERAL: cooperative HEENT: Atraumatic; normocephalic EYES; Anicteric, Normal Conjunctiva NECK; supple, normal thyroid, RESPIRATORY: Diminished to auscultation CARDIOVASCULAR: Regular S1 S2, GI: soft, normoactive bowel sounds, : No Renal angle tenderness; EXTREMITIES: Bilateral stasis dermatitis, MUSCULOSKELETAL: no muscle wasting NEURO: Awake; no lateralizing signs. SKIN: No Rash PSYCH; Flat affect Assessment & Plan Assessment/Plan (1) Acute blood loss anemia: PLAN: Plan Patient is an 84-year-old lady with history of VTE with previous PE and DVT a systemic anticoagulation with rivaroxaban who presented with hematemesis 1. Upper GI bleed ? Suspected to be secondary to peptic ulcer disease versus gastritis exacerbated by the use of systemic anticoagulation?rivaroxaban. Patient admitted to the intensive care unit. Patient did receive Protonix bolus in the emergency department ordered Protonix drip. Patient kept n.p.o. private and screened For 2 unit PRBC. Also ordered H&H every 4 hours with plans to transfuse if patient is deemed to be symptomatic or hemoglobin falls below 7. Consult placed to GI for endoscopic evaluation and intervention if warranted ? 10/29/2024;Patient was kept n.p.o. after midnight with plans for patient to undergo EGD by GI. There is been significant drop in patient hemoglobin level we will continue with H&H monitoring 2. Anemia Secondary to acute blood loss anemia management as discussed above ? 10/29/2024; significant drop in patient hemoglobin level from admitting level of 10.9-8.6 as of this a.m. we will continue with monitoring and transfuse if patient is deemed to be symptomatic or hemoglobin falls below 7 3. History of bilateral PE/DVT ? Patient is on systemic anticoagulation with rivaroxaban which is currently being held given her presentation 4. Hypertension ? Patient antihypertensive had been held on admission given concern for her presentation patient blood pressure is however markedly elevated. Added hydralazine as needed for systolic blood pressure greater than 160 5 .History of left breast CA ? With previous partial mastectomy. Patient is on anastrozole 6. Class II obesity with BMI of 35.7 ? Complicating care weight loss advised 7. Bilateral stasis dermatitis ? Consult placed to wound care nurse for heber wrap 8. DVT prophylaxis ? Patient is on systemic anticoagulation currently being held given her presentation 9. Suspected cystitis ? Patient started on ceftriaxone. Ordered urine culture Advance planning; did discuss with the patient (in the presence of patient's nurse) advanced directives as well as CODE STATUS. Did explain the various scenarios involved ( FULL CODE, DNR CCA, DNR CCA with no intubation, and DNR CC and what each meant) patient elected to remain full code with CPR and intubation if warranted. Order was placed. Time spent on discussion 18 minutes. Charges/Coding Multi Select Codes Visit Charges Visit Charges: 03038 [facility] Hospitalists' Procedures Procedures: 52461 Advncd Care Plan 30 Min
--- NOTE | 2024-10-29 09:50 | CASEMGMT ---
RN?CM?SKETCH MAKER?CM?to room to meet with patient for initial transition planning/care coordination?assessment.?RN?CM?introduced self and role at [facility].? Pt voices understanding and consents to?assessment?at this time.? Pt resting in bed in no distress at this time.? Daughter and granddaughter @ bedside and pt agreeable to assessment w/them present. Pt is A/O at this time and answers all questions appropriately.?? Care providers, pharmacy, and demographics verified/updated at this time. Strata: 2 PCP: Reny Live NP Specialists: Dr Lamb/PAR[facility]/Cardiology (has appt 12/10), Dr Lundberg-GI (has appt 11/19 @ 10 AM), Dr Connell/[employer] Laura-oncology, Dr Vieira-dermatology, Dr Metz-podiatry Preferred Pharmacy: [facility] Rx @ dc. Otherwise, goes to [facility] Insurance: [facility], AARP Prescription Benefit:?Yes LNOK: Daughter, Terrie. Son, Ja. Pt also has another daughter. Living Arrangements: Pt lives in a 2-story home w/1 step to enter. [employer]. Daughter is currently living w/her, temporarily. Pt is independent w/ADL's and manages her own medications. Pt able to do housework, family does assist w/some laundry and cleaning. Dtr also gets the groceries and provides transportation. Transportation:?Pt states she can still drive, but does not drive often, and mainly only drives locally/in [place]. Daughter provides transportation. DME: ?States has the following DME:?shower chair, BSC, raised toilet, cane, walker. She has a glucometer and thinks the strips may be . She wlll f/u with PCP about how often she wants her to check her BS's and discuss Rx for strips at that time. She states she rarely checks her BS's and she gets HgbA1C checked, stating it has been good recently. Pt states no need for further DME at this time.? HHC/SNF: No hx of SNF. Recently had [facility] (just discharged from their services in August of this year). Pt wishes to return home and states has no concerns with going home at time of discharge.?She declines wanting/needing HHC or OP therapy. Made aware to f/u with her PCP if she changes her mind once returning home. CM?to follow for any further discharge planning/needs.? Pt and family voice no further concerns/needs at this time.? Advised them to ask for?CM?if any further questions/concerns/needs arise.? They voice understanding. PLAN:??Home w/family support and discharge plans in place. Priscilla BSN?RN?CM
[2024-10-29] MEDS: Ceftriaxone 1 GM/50 ML BAG IV (10:03)
--- NOTE | 2024-10-29 15:16 | PRE.ANES_ITS ---
ASA Classification* ASA Classification ASA Classification: 3 Assessment & Plan Anesthesia* Anesthesia Assessment Anesthesia Assessment: Discussed sedation and/or anesthesia options, risks, benefits, and alternatives with patient/parents/legal guardian/POA. Questions invited. The patient/parents/legal guardian/POA seems to understand and agrees to proceed with anesthesia plan. Reviewed the physical assessment, medical history, allergy history and patient home medications list prior to surgery/procedure/anesthetic and documented any changes. Performed airway and anesthesia risk assessments. Anesthesia Type Anesthesia Type: MAC History Source History Obtained from:: Patient and Chart Anesthesia Focused Assessment* Temperature: 98.5 F Pulse Rate: 56 Blood Pressure: 127/48 Respiratory Rate: 13 Pulse Ox: 96 Oxygen Delivery Method: Room Air Airway Assessment Mouth opens: >3 cm Mallampati Score: IV Teeth Condition: Chipped/Broken (Patient has chipped and broken teeth on the bottom.) and Dentures (Upper dentures are out.) Neck Range of motion (ROM): Full ROM Focused Labs Anesthesia Preop lab: CBC WBC 7.1 K/mm3 (4.4-11.0) 10/29/24 03:10 10/29/24 RBC 2.76 M/mm3 (4.2-5.4) L 10/29/24 03:10 10/29/24 Hgb 8.6 g/dL (12.0-15.0) L 10/29/24 03:10 10/29/24 Hct 27.1 % (37-47) L 10/29/24 03:10 10/29/24 Plt Count 161 K/mm3 (150-450) 10/29/24 03:10 10/29/24 CHEMISTRY Potassium 4.1 mmol/L (3.3-5.1) 10/29/24 03:10 10/29/24 Sodium 141 mmol/L (133-145) 10/29/24 03:10 10/29/24 Magnesium 1.8 mg/dL (1.5-2.2) 10/29/24 03:10 10/29/24 Phosphorus 2.8 mg/dL (2.7-4.5) 10/29/24 03:10 10/29/24 BUN 27 mg/dL (4-19) H 10/29/24 03:10 10/29/24 Creatinine 0.84 mg/dL (0.70-1.20) 10/29/24 03:10 10/29/24 Glucose 83 mg/dL (70-99) 10/29/24 03:10 10/29/24 POC Glucose 133 mg/dL (74-106) H 12/25/23 15:25 12/25/23 TSH 0.60 uIU/mL (0.358-3.74) 11/06/23 11:24 COAG PT 16.3 SECONDS (11.7-14.9) H 10/28/24 02:47 10/04 11/27 Pre-Assessment Diagnosis/Proposed Procedure Planned Operative Procedure(s): Esophagogastroduodenoscopy. Anesthesia History Anesthesia History - senior systems analyst: Anesthesia History - senior systems analyst Hx Hospitalization No 12/15/23 14:41 Any Problems With Anesthesia No 12/15/23 14:41 Cholinesterase deficiency No 12/15/23 14:41 You/Your Family Experience No 12/15/23 14:41 fever (hyperthermia) with Relationship Recent Exposure to Contagious No 12/25/23 07:51 Disease Does patient have nerve No 12/15/23 14:41 stimulator Patient instructed to have device shut off --Does patient have Pacemaker or ICD? When Was Last Pacemaker Check QUESTION #4 FULL TEXT: You/Your Family Experience fever (hyperthermia) with Anesthesia Last Oral Intake Last Oral intake: Last Oral Intake NPO since Meds taken in AM with sips of water? Meds patient instructed to take am of surgery Any additional information?: Yes NPO since: 00:00 Meds taken in AM with sips of water?: No PONV PONV - senior systems analyst: PONV - senior systems analyst Female HX of Motion Sickness HX of N/V After Surgery Non-Smoker Duration of Surgery greater than 60 minutes Number of Risk Factors PONV Score Height & Weight Height & Weight: Anesthesia: Height & Weight Height 4 ft 9 in 10/29/24 08:49 Weight: 77.2 kg 10/29/24 08:49 Body Mass Index (BMI) 36.8 10/29/24 05:34 Respiratory Assessment Respiratory Assessment - senior systems analyst: Respiratory Tract Infection Hx - senior systems analyst Hx Respiratory Tract Infection No: Patient has had her 12/25/23 09:01 allergies acting up recently . STOP Sleep Apnea STOP Sleep Apnea - senior systems analyst: STOP Sleep Apnea - senior systems analyst Hx Hypertension Yes: CONTROLLED WITH MED 10/29/24 12:14 Hx Sleep Apnea No 10/28/24 08:18 CPAP BIPAP Do you snore loudly (louder No 10/28/24 08:18 than talking or can be heard Do you often feel tired/ No 10/28/24 08:18 fatigued/ sleepy during daytime? Has anyone observed you stop No 10/28/24 08:18 breathing during sleep? STOP Results Negative 10/28/24 08:18 QUESTION #5 FULL TEXT : Do you snore loudly (louder than talking or can be heard through closed doors)? Tobacco Use History Tobacco Use History - senior systems analyst: Tobacco Use History - senior systems analyst Tobacco Use Non-smoker 10/11/20 16:57 Smoking Status Never smoker 10/28/24 08:18 Hx Tobacco Use No 10/28/24 08:18 Years Smoking Packs Smoked per Day Smoking Cessation Date was within the last 15 years Hx Smoking Cessation Date Hx Smoking Cessation No 10/28/24 08:18 Counseling Hematologic Medial History Hematologic Hx - senior systems analyst: Hematologic Medical Hx - dot compliance coordinator Hx of Blood Transfusion Yes 10/28/24 08:18 Hx of Transfusion in last 3 No 10/28/24 08:18 Months Date of Last Transfusion (if within last 3 months) Ever experience any problems No 10/28/24 08:18 with transfusion(s)? Specify any problems Hx of Preganancy in last 3 N/A 10/28/24 08:18 Months Nurse Filling Out Transfusion MAGI 10/28/24 08:18 & Questions: Date: 10/28/24 10/28/24 08:18 Time: 09:06 10/28/24 08:18 Patient unable to answer at this time (ie. confused, unrespo /Reproduction History /Reproductive History - senior systems analyst: /Reproductive Hx- senior systems analyst Hx Now Gestational Age (in weeks): EDC: Hx Hx Para Hx Section SAB No 12/15/23 14:41 Active Medications Active Medications: Current Medications Generic Name Dose Route Start Last Admin Trade Name Freq PRN Reason Stop Dose Admin Calamine/Phenol 1 applic 10/29/24 10:00 10/29/24 10:04 Menthol/Lanolin/Calamine/Znox 113 Gm Tube TOPICAL Not Given BID [facility] Protocol Hydralazine HCl 10 mg 10/28/24 08:43 10/28/24 10:31 Hydralazine 20 Mg/Ml Vial IV 10 mg Q4H PRN PRN Administration SBP >160 Protocol Hydrocortisone 1 applic 10/28/24 08:16 Hydrocortisone 2.5% Crm TOPICAL DAILY PRN itching Protocol Sodium Chloride 250 mls @ 15 mls/hr 10/28/24 08:20 IV .[id number] PRN Saline Flush Sodium Chloride 250 mls @ 15 mls/hr 10/28/24 08:20 IV .[id number] PRN Additional IVPB Infusion Pantoprazole Sodium 80 mg/ 100 mls @ 10 mls/hr 10/28/24 08:45 10/29/24 15:05 Sodium Chloride CONT INF Infused Q10H STEPHANIE Infusion Ceftriaxone Sodium 1 gm in 50 mls @ 100 mls/hr 10/29/24 10:00 10/29/24 12:53 Rocephin IV Infused Q24 STEPHANIE Infusion Lactated Ringer's 1,000 mls @ 15 mls/hr 10/29/24 15:15 IV .Q48H STEPHANIE Latanoprost 1 drp 10/28/24 22:00 10/28/24 21:23 Latanoprost 0.005% 1 Bottle OPHTHALMIC 1 drp QHS STEPHANIE Administration Morphine Sulfate 2 mg 10/28/24 08:16 10/28/24 14:58 Morphine 2 Mg/Ml Syringe IV 2 mg Q4H PRN PRN Administration Pain Score 6-10 Ondansetron HCl 4 mg 10/28/24 08:16 10/28/24 11:59 Ondansetron 4 Mg/2 Ml Vial IV 4 mg Q8H PRN PRN Administration NAUSEA/VOMITING Prochlorperazine Edisylate 10 mg 10/28/24 08:42 10/28/24 14:58 Prochlorperazine 10 Mg/2 Ml Vial IV 10 mg Q4H PRN PRN Administration NAUSEA/VOMITING Prochlorperazine Maleate 12.5 mg 10/28/24 08:16 Prochlorperazine 25 Mg Suppos. RC BID PRN PRN Breakthrough Nausea/Vomiting Scopolamine HBr 1 patch 10/28/24 06:15 10/28/24 06:55 Scopolamine 1mg/72hr Patch TD 1 patch Q3D@1000 STEPHANIE Administration Sodium Chloride 10 - 40 ml 10/28/24 08:20 0.9% Saline Lock 10 Ml Syringe IV UD PRN SALINE FLUSH PFSH Medical History History of breast cancer Mass of left axilla Encounter for education Regional lymph node metastasis present Glaucoma Loss of hearing Wears glasses Cancer Pressure ulcer Fatty liver History of IBS Leg cramps Cellulitis Venous ulcer of left leg Venous ulcer of right leg Lymphedema of right lower extremity Lymphedema of left leg Chronic ulcer of left lower extremity Edema leg Hiatal hernia Venous hypertension, chronic, with inflammation Chronic venous insufficiency Leg wound, left Nodular goiter Wears dentures Post-menopausal Diabetes Ambulates with cane Arthritis Back pain Loss of consciousness History of hiatal hernia Gastric reflux Shortness of breath on exertion History of edema History of echocardiogram History of stress test Hypertension Cardiology follow-up encounter History of bleeding ulcers Choledocholithiasis Peripheral arterial disease Osteoporosis GI bleed Non-smoker DVT (deep venous thrombosis) Abdominal pain Pure hypercholesterolemia Essential hypertension Pressure ulcer of right buttock, stage 3 Decubitus ulcer of left buttock, stage 2 Venous stasis ulcer Hiatal hernia Edema of both legs Osteoarthritis GERD (gastroesophageal reflux disease) Abnormal exercise myocardial perfusion study Palpitations Atherosclerotic heart disease of [place] coronary artery without angina pectoris Leg swelling Hyperpigmentation of skin Lipodermatosclerosis Post-phlebitic dermatosis of both lower extremities Chronic venous hypertension (idiopathic) with inflammation of bilateral lower extremity Localized edema Non-pressure chronic ulcer of left calf with fat layer exposed Generalized weakness Hypertension Chronic venous hypertension (idiopathic) with ulcer of left lower extremity Chronic venous stasis dermatitis Non-pressure chronic ulcer of left ankle with fat layer exposed 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 Cellulitis of left leg Failure to thrive Positional vertigo Ulcer Obesity Hx of venous thrombosis and embolism history of cellulitis of leg Home Medications ?Medication ?Instructions ?Recorded ?Last Taken ?Type potassium chloride 10 mEq 10 meq PO PRN PRN HYPOKALEMI A 10/11/19 12/18/23 History capsule,extended release famotidine 20 mg tablet 20 mg PO BID 30 days #60 tab s 05/24/21 10/27/24 Rx meclizine 25 mg tablet 25 mg PO DAILY PRN Vertigo 0 08/12/21 Unknown History hydroxyzine HCl 10 mg tablet 10 mg PO TID PRN itching 03/14/23 Unknown History latanoprost 0.005 % eye drops 1 drp ophthalmic (eye) Q PM eye 05/24/23 10/27/24 History drops torsemide 20 mg tablet 20 mg PO DAILY PRN PRN Edema 10/27/23 Unknown History anastrozole 1 mg tablet 1 mg PO DAILY #30 tabs 01/1710/27/24 Rx psyllium husk 0.4 gram capsule 0.4 g PO DAILY suppleme nt 01/18/24 Unknown History (Daily Fiber) irbesartan 75 mg tablet 75 mg PO DAILY blood pressur e 01/29/24 10/27/24 History hydroxocobalamin-cobamamide (vit 1 tab PO Q OTHER DAY supplement 04/22/24 Unknown History B12) 2,500 mcg disintegrating tablet (Adeno-Hydroxo B12) ursodiol 250 mg tablet 250 mg PO DAILY 90 days #90 tabs 04/22/24 10/27/24 Rx rivaroxaban 10 mg tablet (Xarelto) 10 mg PO QDAY #90 t abs 06/26/24 10/27/24 Rx hydrocortisone 2.5 % topical cream applic topical RAYMUNDO Y PRN itching 10/28/24 10/26/24 History Allergy/AdvReac Type Severity Reaction Status Date / Time neomycin sulfate (From Allergy Severe Itching Verified 10/21/24 13:20 Neosporin ([id number])) benzethonium chloride (From Allergy Unknown unknown Verified 10/21/24 13:20 Lanacane [place]) benzocaine (From Lanacane Allergy Unknown unknown Verified 10/21/24 13:20 [place]) levofloxacin (From Levaquin) Allergy Unknown Rash Verified 10/21/24 13:20 cefdinir Allergy Other Verified 10/21/24 13:20 ezetimibe (From Zetia) Allergy Itching Verified 10/21/24 13:20 neomycin (Neomycin) Allergy gets in Verified 10/21/24 13:20 blood stream and pass out polymyxin B (Polymyxin B) Allergy Unknown Verified 10/21/24 13:20 Sulfa (Sulfonamide Allergy Unknown Verified 10/21/24 13:20 Antibiotics) tetracycline (Tetracycline) Allergy Itching Verified 10/21/24 13:20 adhesive tape AdvReac Severe skin Verified 10/21/24 13:20 pulling lisinopril AdvReac Intermediate cough Verified 10/21/24 13:20 cephalexin AdvReac Mild Other Verified 10/21/24 13:20 atorvastatin calcium (From AdvReac Pain in Verified 10/21/24 13:20 Lipitor) joints, muscle damage Family History Mother CAD (coronary artery disease) Myocardial infarction Son Hypertension Brother AAA (abdominal aortic aneurysm) Father Diabetes Heart disease CAD (coronary artery disease) Liver disease Other Arthritis Bleeding disorder Blood clot in vein Bowel disease Cancer H/O ulcer disease Osteoporosis Severe allergy Surgical History History of foot surgery History of ERCP History of cholecystectomy History of hernia repair History of left heart catheterization (06/14/13) H/O dilation and curettage Lipoma History of tubal ligation History of cataract surgery Rectal fistula Social History household members: none housing: house current occupational status: employed Smoking Status: Never smoker alcohol intake: never substance use type: does not use caffeine: Yes Type: coffee Number of servings: 3 what type of physical activity do you participate in: none seatbelt use: always do you feel safe at home: Yes Review of Systems (Anesthesia) ROS Narrative System reviewed and no additional complaints, except as documented.
--- NOTE | 2024-10-29 15:47 | PN_ITS ---
Progress Note Patient has been n.p.o. since midnight. No vomiting overnight. She is for upper endoscopy today. Physical Exam Const alert, oriented x3, no apparent distress and healthy appearing General Appearance: cooperative GI normal to inspection, nondistended, normoactive bowel sounds, soft to palpation, non-tender and non-distended Percussion: normal to percussion Rectal Exam: deferred Assessment & Plan Assessment/Plan (1) Acute blood loss anemia: (2) Hernia, hiatal: (3) Chronic anticoagulation: PLAN: (4) Upper GI bleed: (5) Acute blood loss anemia (ABLA): (6) Elevated BUN: (7) Adverse drug reaction: QUALIFIERS: Encounter type: initial encounter Qualified Code(s): T50.905A - Adverse effect of unspecified drugs, medicaments and biological substances, initial encounter (8) DVT (deep venous thrombosis): QUALIFIERS: DVT location: lower extremity Affected thrombotic vein of extremity: unspecified vein of extremity Chronicity: unspecified Laterality: unspecified laterality Qualified Code(s): I82.409 - Acute embolism and thrombosis of unspecified deep veins of unspecified lower extremity (9) Obesity (BMI 30-39.9): PLAN: Plan 84-year-old with multiple comorbidities on Xarelto for bilateral DVTs presents w ith vomiting blood. She likely has a UGIB with Hematemesis likely due to recurrent PUD, Darin's erosions, hiatal hernia, peptic ulcer disease, angiodysplasia or gastric antral vascular ectasia. She does not seem to be clinically unstable at this time. Patient should continue PPI drip. As needed antinausea medications. She can have clear liquids and n.p.o. past night for EGD tomorrow. 10/29/2024-all questions were answered prior to the procedure. She was explained alternatives, risk and benefits include not withstanding bleeding, infection, sepsis, perforation, need for more surgery . She will have an ASA of 3. Visit Charges Inpatient E&M: 74937 Subs Hosp L2
--- NOTE | 2024-10-29 16:52 | PCM.POST.ANE ---
Anesthesia: Postop Eval I Current Vital Signs Temperature: 97.4 F Pulse Rate: 87 Blood Pressure: 126/58 Respiratory Rate: 16 Pulse Ox: 94 Assessment Airway patent: Yes Spontaneous unlabored respirations: Yes nausea: No Vomiting: No Anesthesia Complication: No Fluid Hydration Crystalloid volume administer (ml): 200 Total IV fluid infused: 200 Progress Note Anesthesia document: Postop Eval 1 completed: Yes
--- NOTE | 2024-10-29 17:24 | OP.EGD_ITS ---
Patient Name: Rebeca Soares Procedure Date: 10/29/2024 4:07 PM Date of : 1940 Age: 84 Procedure: Upper GI endoscopy Indications: Coffee-ground emesis, Hematemesis Providers: Spike Lundberg DO Medicines: Monitored Anesthesia Care Patient Profile: This is an 84 year old female. Refer to note in patient chart for documentation of history and physical. Patient has symptoms of acute chest pain, acute nausea and acute vomiting. Complications: No immediate complications. Procedure: Pre-Anesthesia Assessment: - Prior to the procedure, a History and Physical was performed, and patient medications and allergies were reviewed. The patient is competent. The risks and benefits of the procedure and the sedation options and risks were discussed with the patient. All questions were answered and informed consent was obtained. Patient identification and proposed procedure were verified by the physician in the pre-procedure area. Mental Status Examination: alert and oriented. Airway Examination: normal oropharyngeal airway and neck mobility. Respiratory Examination: clear to auscultation. CV Examination: normal. Prophylactic Antibiotics: The patient does not require prophylactic antibiotics. Prior Anticoagulants: The patient has taken no 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 or antiplatelet agents except for NSAID medication. ASA Grade Assessment: II - A patient with mild systemic disease. After reviewing the risks and benefits, the patient was deemed in satisfactory condition to undergo the procedure. The anesthesia plan was to use monitored anesthesia care (MAC). Immediately prior to administration of medications, the patient was re-assessed for adequacy to receive sedatives. The heart rate, respiratory rate, oxygen saturations, blood pressure, adequacy of pulmonary ventilation, and response to care were monitored throughout the procedure. The physical status of the patient was re-assessed after the procedure. After obtaining informed consent, the endoscope was passed under direct vision. Throughout the procedure, the patient's blood pressure, pulse, and oxygen saturations were monitored continuously. The Endoscope was introduced through the mouth, and advanced to the third part of the duodenum. Small bowel enteroscopy was deemed necessary. The upper GI endoscopy was accomplished without difficulty. The patient tolerated the procedure well. Scope In: 4:30:00 PM Scope Out: 4:35:38 PM Total Procedure Duration Time 0 hours 5 minutes 38 seconds Findings: LA Grade D (one or more mucosal breaks involving at least 75% of esophageal circumference) esophagitis with bleeding was found 30 to 39 cm from the incisors. Three cratered esophageal ulcers actively bleeding were found 29 to 32 cm from the incisors. The largest lesion was 6 mm in largest dimension. Coagulation for hemostasis using heater probe was successful. Estimated blood loss was minimal. A hiatal hernia was present. No gross lesions were noted in the entire examined stomach. No gross lesions were noted in the entire examined duodenum. Impression: - LA Grade D erosive esophagitis with bleeding. - Esophageal ulcers actively bleeding. Treated with a heater probe. - Hiatal hernia. - No gross lesions in the entire stomach. - No gross lesions in the entire examined duodenum. - No specimens collected. Recommendation: - Advance diet as tolerated. - Use Protonix (pantoprazole) 40 mg PO BID for 1 year. - Use sucralfate tablets 1 gram PO BID for 6 weeks. - Continue present medications. Procedure Code(s): --- Professional --- 86940, Small intestinal endoscopy, enteroscopy beyond second portion of duodenum, not including ileum; with control of bleeding (eg, injection, bipolar cautery, unipolar cautery, laser, heater probe, stapler, plasma sas statistical programmer) CPT copyright 2021 [employer]. All rights reserved. The codes documented in this report are preliminary and upon digital production artist review may be revised to meet current compliance requirements. Spike Lundberg DO 10/29/2024 5:23:33 PM This report has been signed electronically. Number of Addenda: 0 Note Initiated On: 10/29/2024 4:07 PM
--- NOTE | 2024-10-29 17:24 | OP.CCLET_ITS ---
10/29/2024 Jojo Martell Re : Upper GI endoscopy procedure for Rebeca Soares Dear Calos This procedure was performed on Tuesday, October 29, 2024. My impressions and recommendations are as follows: Impressions : - LA Grade D erosive esophagitis with bleeding. - Esophageal ulcers actively bleeding. Treated with a heater probe. - Hiatal hernia. - No gross lesions in the entire stomach. - No gross lesions in the entire examined duodenum. - No specimens collected. Recommendations : - Advance diet as tolerated. - Use Protonix (pantoprazole) 40 mg PO BID for 1 year. - Use sucralfate tablets 1 gram PO BID for 6 weeks. - Continue present medications. My findings are described in the full procedure note, which is enclosed. If I can be of further assistance, please feel free to contact me at . Sincerely, Spike Friend, 10/29/2024 5:23:33 PM This report has been signed electronically.
[2024-10-29] MEDS: Pantoprazole Sodium 40 MG in 0.9% Normal Saline (100mL MB+) 100 ML 330 MG IV (20:21)
[2024-10-29] MEDS: Latanoprost 0.005% 1 Bottle 1 DRP OPHTHALMIC (20:21)
[2024-10-29] MEDS: Menthol/Lanolin/Calamine/Znox 113 GM Tube 1 APPLIC TOPICAL (20:22)
--- NOTE | 2024-10-29 20:25 | POSTOPAN2_ITS ---
Anesthesia Postop Eval I Sum Postop Eval Completion status Anesthesia document: Postop Eval 1 completed: Yes Anesthesia Postop Eval I Summary Anesthesia Postop Eval I Summary: Anesthesia Postop Eval I: Assessment Summary Airway patent Yes 10/29/24 16:52 OSD [email or web address] Spontaneous unlabored Yes 10/29/24 16:52 OSD [email or web address] respirations Mental status nausea No 10/29/24 16:52 OSD [email or web address] Vomiting No 10/29/24 16:52 OSD [email or web address] Anesthesia Postop Eval I: Fluid Summary Crystalloid volume administer 200 10/29/24 16:52 OSD [email or web address] (ml) Colloids volume administered ( ml) Blood Product volume administered (ml) Total IV fluid infused 200 10/29/24 16:52 OSD [email or web address] Anesthesia Postop Eval I: Summary Notes Anesthesia Complication No 10/29/24 16:52 OSD [email or web address] Anesthesia Complication Comment: Post-operative progress note Anesthesia: Postop Eval II Evaluation Mental status: Awake and Calm Pain Level: 0 nausea: No Vomiting: No Complications Anesthesia Complication: No
--- NOTE | 2024-10-29 20:25 | PCM.POSTANE2 ---
Anesthesia Postop Eval I Sum Postop Eval Completion status Anesthesia document: Postop Eval 1 completed: Yes Anesthesia Postop Eval I Summary Anesthesia Postop Eval I Summary: Anesthesia Postop Eval I: Assessment Summary Airway patent Yes 10/29/24 16:52 HOME MORTGAGE DISCLOSURE ACT SPECIALIST.[email or web address] Spontaneous unlabored Yes 10/29/24 16:52 HOME MORTGAGE DISCLOSURE ACT SPECIALIST.[email or web address] respirations Mental status nausea No 10/29/24 16:52 HOME MORTGAGE DISCLOSURE ACT SPECIALIST.[email or web address] Vomiting No 10/29/24 16:52 HOME MORTGAGE DISCLOSURE ACT SPECIALIST.TNES Anesthesia Postop Eval I: Fluid Summary Crystalloid volume administer 200 10/29/24 16:52 HOME MORTGAGE DISCLOSURE ACT SPECIALIST.TNES (ml) Colloids volume administered ( ml) Blood Product volume administered (ml) Total IV fluid infused 200 10/29/24 16:52 HOME MORTGAGE DISCLOSURE ACT SPECIALIST.TNES Anesthesia Postop Eval I: Summary Notes Anesthesia Complication No 10/29/24 16:52 HOME MORTGAGE DISCLOSURE ACT SPECIALIST.TNES Anesthesia Complication Comment: Post-operative progress note Anesthesia: Postop Eval II Evaluation Mental status: Awake and Calm Pain Level: 0 nausea: No Vomiting: No Complications Anesthesia Complication: No
[2024-10-30] VITALS (14 sets, daily range): BP systolic 91–143; BP diastolic 37–109; PULSE 59–77; RESP 12–21; TEMP 36.2–36.6; O2SAT 95–100; BMI 37.6
[2024-10-30 05:23] LABS: Hematocrit 28.6 % (37-47); Hemoglobin 9.2 g/dL (12.0-15.0); Mean Corp Hgb Conc 32.2 g/dL (32-36); Mean Corpuscular Hgb 31.3 pg (27.0-32.0); Mean Corpuscular Volume 97.3 fL (81-99); Mean Platelet Vol. 11.8 fl (6.2-12.0); Platelet Count 169 K/mm3 (150-450); RBC Distribution Width CV 13.3 % (11.6-14.6); Red Blood Count 2.94 M/mm3 (4.2-5.4); White Blood Count 5.9 K/mm3 (4.4-11.0)
[2024-10-30 06:15] LABS: Anion Gap 9 (5-15); BUN 22 mg/dL (4-19); BUN/Creat Ratio 23.9 RATIO (10-20); Calcium,Total 8.7 mg/dL (7.6-11.0); Carbon Dioxide 22.2 mmol/L (21.0-32.0); Chloride 109 mmol/L (98-108); Creatinine, Serum 0.91 mg/dL (0.70-1.20); EST Glomerular Filtration Rate 62 (>60); Glucose 83 mg/dL (70-99); Sodium Level 141 mmol/L (133-145)
--- NOTE | 2024-10-30 07:22 | PN.HOSP_ITS ---
Reason for Visit Reason for Visit: Diagnoses Acute posthemorrhagic anemia (10/28/24) Obesity, unspecified (10/28/24) Acute embolism and thrombosis of unspecified deep veins of unspecified lower extremity (10/28/24) Diaphragmatic hernia without obstruction or gangrene (10/28/24) Gastrointestinal hemorrhage, unspecified (10/28/24) Abnormal finding of blood chemistry, unspecified (10/28/24) Adverse effect of unspecified drugs, medicaments and biological substances, initial encounter (10/28/24) [facility] (current) use of 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s (10/28/24) Subjective Subjective Patient underwent EGD the day prior findings as documented below Objective Data Objective Data Vital Signs: Vital Signs Temp Pulse Resp BP Pulse Ox O2 Del Method 97.2 F L 59 L 16 111/37 L 100 Room Air 10/30/24 04:00 10/30/24 06:00 10/30/24 06:00 10/30/24 06:00 10/30/24 06:00 10/30/24 06:00 Oxygen Delivery Method Room Air Weight: 78.9 kg Body Mass Index (BMI) 37.6 Intake & Output: Intake and Output for Last 24 Hours 10/28/24 10/29/24 10/30/24 23:59 23:59 23:59 Intake Total 2128.83 / 2128.83 2081.67 / 2081.67 Output Total 450 / 450 200 / 200 Balance 1678.83 / 1678.83 1881.67 / 1881.67 Lab / Micro Data 10/30/24 05:15 10/30/24 05:15 Labs: Laboratory Results - last 24 hr 10/30/24 05:15: WBC 5.9, RBC 2.94 L, Hgb 9.2 L, Hct 28.6 L, MCV 97.3, MCH 31.3, MCHC 32.2, RDW Std Deviation 48.0 H, RDW Coeff of Mihir 13.3, Plt Count 169, MPV 11.8, Sodium 141, Potassium 4.0, Chloride 109 H, Carbon Dioxide 22.2, Anion Gap 9, BUN 22 H, Creatinine 0.91, Estim Creat Clear Calc 42.00 L, Est GFR (MDRD) Non-Af 62, BUN/Creatinine Ratio 23.9 H, Glucose 83, Calcium 8.7 Physical Exam Narrative GENERAL: cooperative HEENT: Atraumatic; normocephalic EYES; Anicteric, Normal Conjunctiva NECK; supple, normal thyroid, RESPIRATORY: Diminished to auscultation CARDIOVASCULAR: Regular S1 S2, GI: soft, normoactive bowel sounds, : No Renal angle tenderness; EXTREMITIES: Bilateral stasis dermatitis, MUSCULOSKELETAL: no muscle wasting NEURO: Awake; no lateralizing signs. SKIN: No Rash PSYCH; Flat affect Assessment & Plan Assessment/Plan (1) Acute blood loss anemia: PLAN: Plan Patient is an 84-year-old lady with history of VTE with previous PE and DVT a systemic anticoagulation with rivaroxaban who presented with hematemesis 1. Upper GI bleed ? Suspected to be secondary to peptic ulcer disease versus gastritis exacerbated by the use of systemic anticoagulation?rivaroxaban. Patient admitted to the intensive care unit. Patient did receive Protonix bolus in the emergency department ordered Protonix drip. Patient kept n.p.o. private and screened For 2 unit PRBC. Also ordered H&H every 4 hours with plans to transfuse if patient is deemed to be symptomatic or hemoglobin falls below 7. Consult placed to GI for endoscopic evaluation and intervention if warranted ? 10/29/2024;Patient was kept n.p.o. after midnight with plans for patient to undergo EGD by GI. There is been significant drop in patient hemoglobin level we will continue with H&H monitoring ?10/30/2024; patient underwent EGD the day prior findings and recommendation as below Impressions : - LA Grade D erosive esophagitis with bleeding. - Esophageal ulcers actively bleeding. Treated with a heater probe. - Hiatal hernia. - No gross lesions in the entire stomach. - No gross lesions in the entire examined duodenum. - No specimens collected. Recommendations : - Advance diet as tolerated. - Use Protonix (pantoprazole) 40 mg PO BID for 1 year. - Use sucralfate tablets 1 gram PO BID for 6 weeks. - Continue present medications. 2. Anemia Secondary to acute blood loss anemia management as discussed above ? 10/29/2024; significant drop in patient hemoglobin level from admitting level of 10.9-8.6 as of this a.m. we will continue with monitoring and transfuse if patient is deemed to be symptomatic or hemoglobin falls below 7 ? 10/30/2024; patient hemoglobin remained stable at 9.2 3. History of bilateral PE/DVT ? Patient is on systemic anticoagulation with rivaroxaban which is currently being held given her presentation 4. Hypertension ? Patient antihypertensive had been held on admission given concern for her presentation patient blood pressure is however markedly elevated. Added hydralazine as needed for systolic blood pressure greater than 160 5 .History of left breast CA ? With previous partial mastectomy. Patient is on anastrozole 6. Class II obesity with BMI of 35.7 ? Complicating care weight loss advised 7. Bilateral stasis dermatitis ? Consult placed to wound care nurse for heber wrap 8. DVT prophylaxis ? Patient is on systemic anticoagulation currently being held given her presentation 9. Suspected cystitis ? Patient started on ceftriaxone. Ordered urine culture Charges/Coding Visit Charges Inpatient E&M: 50018 Subs Hosp L2
[2024-10-30] MEDS: Pantoprazole Sodium 40 MG in 0.9% Normal Saline (100mL MB+) 100 ML 330 MG IV ×2 (10:09→22:03)
[2024-10-30] MEDS: 0.9% Normal Saline (250mL Bag) 250 ML 15 ML IV (10:11)
[2024-10-30] MEDS: Menthol/Lanolin/Calamine/Znox 113 GM Tube 1 APPLIC TOPICAL ×2 (10:17→22:04)
[2024-10-30] MEDS: Ceftriaxone 1 GM/50 ML BAG IV (10:51)
--- NOTE | 2024-10-30 12:31 | CASEMGMT ---
NOAH MURPHY NOTE: NOAH CM to room. Pt sitting up in chair. GD @ bedside. Inquired if pt has any home-going needs and how she has been feeling getting up OOB/ambulating. She declines wanting HHC at this time & inquired what she should do if she decides once returning home that she wants it again. Questions answered and she was made aware to f/u with PCP re: HHC if she decides she does want that again. She states she may be interested in doing OP therapy, but she also is not sure about that yet either. She would like a script @ dc and will decide once she returns home. Pt and GD voiced appreciation for info provided and deny having further dc needs or concerns. Priscilla JORDAN RN, CM
--- NOTE | 2024-10-30 16:26 | CASEMGMT ---
Social Work- SW participated in interdisciplinary rounds with care team. Pt participating with PT and requesting HHC. No SW needs at this time. SW remains available to follow. BRUNO Winston
--- NOTE | 2024-10-30 19:33 | PCM.PN.BLA ---
Progress Note Patient states to be tolerating a diet today. She denies any abdominal pain. She does have some esophageal dysphagia. She is status post upper endoscopy. She has not vomited any blood and has not seen any dark stools. She remains off of any anticoagulates or antiplatelet therapy at this time. Physical Exam Narrative GENERAL: cooperative HEENT: Atraumatic; normocephalic EYES; Anicteric, Normal Conjunctiva NECK; supple, normal thyroid, RESPIRATORY: Diminished to auscultation CARDIOVASCULAR: Regular S1 S2, GI: soft, normoactive bowel sounds, : No Renal angle tenderness; EXTREMITIES: Bilateral stasis dermatitis, MUSCULOSKELETAL: no muscle wasting NEURO: Awake; no lateralizing signs. SKIN: No Rash PSYCH; Flat affect Assessment & Plan Assessment/Plan (1) Acute blood loss anemia: (2) Acute upper GI bleed: PLAN: Findings: LA Grade D (one or more mucosal breaks involving at least 75% of esophageal circumference) esophagitis with bleeding was found 30 to 39 cm from the incisors. Three cratered esophageal ulcers actively bleeding were found 29 to 32 cm from the incisors. The largest lesion was 6 mm in largest dimension. Coagulation for hemostasis using heater probe was successful. Estimated blood loss was minimal. A hiatal hernia was present. No gross lesions were noted in the entire examined stomach. No gross lesions were noted in the entire examined duodenum. Impression: - LA Grade D erosive esophagitis with bleeding. - Esophageal ulcers actively bleeding. Treated with a heater probe. - Hiatal hernia. - No gross lesions in the entire stomach. - No gross lesions in the entire examined duodenum. - No specimens collected. Recommendation: - Advance diet as tolerated. - Use Protonix (pantoprazole) 40 mg PO BID for 1 year. - Use sucralfate tablets 1 gram PO BID for 6 weeks. Acute upper GI bleed in the setting of anticoagulation likely secondary to esophageal dysmotility leading to digestion of medications in the esophagus specifically her 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s. Patient is tolerating medications without any problems. Her hemoglobin seems to be stable. Continue to hold anticoagulation. Visit Charges Inpatient E&M: 42127 [facility] L3
[2024-10-30] MEDS: Latanoprost 0.005% 1 Bottle 1 DRP OPHTHALMIC (22:02)
[2024-10-31 02:00] VITALS: BP 95/59; PULSE 73; RESP 13; TEMP 36.4; O2SAT 99
[2024-10-31 04:09] LABS: Hematocrit 27.3 % (37-47); Mean Corpuscular Hgb 31.9 pg (27.0-32.0); Mean Corpuscular Volume 96.8 fL (81-99); Mean Platelet Vol. 11.6 fl (6.2-12.0); Platelet Count 149 K/mm3 (150-450); RBC Distribution Width CV 13.2 % (11.6-14.6); Red Blood Count 2.82 M/mm3 (4.2-5.4); White Blood Count 5.8 K/mm3 (4.4-11.0)
[2024-10-31 04:31] VITALS: BMI 35.3
[2024-10-31 04:41] LABS: Anion Gap 10 (5-15); BUN 17 mg/dL (4-19); BUN/Creat Ratio 18.2 RATIO (10-20); Calcium,Total 9.1 mg/dL (7.6-11.0); Carbon Dioxide 22.7 mmol/L (21.0-32.0); Chloride 108 mmol/L (98-108); Creatinine, Serum 0.91 mg/dL (0.70-1.20); EST Glomerular Filtration Rate 62 (>60); Glucose 90 mg/dL (70-99); Potassium 4.1 mmol/L (3.3-5.1); Sodium Level 141 mmol/L (133-145)
[2024-10-31 06:47] VITALS: O2SAT 97
--- NOTE | 2024-10-31 07:12 | PCM.DC.SUM ---
Providers Date of Admission: 10/28/24 Date of Discharge: 10/31/24 Primary Care Physician: Reny Live, GABRIELA Consultations 10/28/24 08:16 Consult: Gastroenterology Routine Consulting Provider: [facility] Reason for Consult: UGIB with hematemesis and ABLA 2/2 ADR to DOAC w/ h/o PUD with Bleed. EMERGENT Consult: No MD Notified: Yes Date Notified: 10/28/24 Time Notified: 05:45 Method of Notification: ED Physician Initiated Reason For Visit: UGIB WITH HEMATAMESIS, ABLA, ADVERSE DRUG RXN TO Diagnosis Discharge Diagnosis (1) Acute blood loss anemia: Status: Acute Code(s): D62 - Acute posthemorrhagic anemia (2) Acute upper GI bleed: Status: Acute Code(s): K92.2 - Gastrointestinal hemorrhage, unspecified Plan Patient is an 84-year-old lady with history of VTE with previous PE and DVT a systemic anticoagulation with rivaroxaban who presented with hematemesis 1. Upper GI bleed ? Suspected to be secondary to peptic ulcer disease versus gastritis exacerbated by the use of systemic anticoagulation?rivaroxaban. Patient admitted to the intensive care unit. Patient did receive Protonix bolus in the emergency department ordered Protonix drip. Patient kept n.p.o. private and screened For 2 unit PRBC. Also ordered H&H every 4 hours with plans to transfuse if patient is deemed to be symptomatic or hemoglobin falls below 7. Consult placed to GI for endoscopic evaluation and intervention if warranted ? 10/29/2024;Patient was kept n.p.o. after midnight with plans for patient to undergo EGD by GI. There is been significant drop in patient hemoglobin level we will continue with H&H monitoring ?10/30/2024; patient underwent EGD the day prior findings and recommendation as below Impressions : - LA Grade D erosive esophagitis with bleeding. - Esophageal ulcers actively bleeding. Treated with a heater probe. - Hiatal hernia. - No gross lesions in the entire stomach. - No gross lesions in the entire examined duodenum. - No specimens collected. Recommendations : - Advance diet as tolerated. - Use Protonix (pantoprazole) 40 mg PO BID for 1 year. - Use sucralfate tablets 1 gram PO BID for 6 weeks. - Continue present medications. 2. Anemia Secondary to acute blood loss anemia management as discussed above ? 10/29/2024; significant drop in patient hemoglobin level from admitting level of 10.9-8.6 as of this a.m. we will continue with monitoring and transfuse if patient is deemed to be symptomatic or hemoglobin falls below 7 ? 10/30/2024; patient hemoglobin remained stable at 9.2 3. History of bilateral PE/DVT ? Patient is on systemic anticoagulation with rivaroxaban which is currently being held given her presentation ? 10/31/2024; patient rivaroxaban was held for total of 7 days on discharge 4. Hypertension ? Patient antihypertensive had been held on admission given concern for her presentation patient blood pressure is however markedly elevated. Added hydralazine as needed for systolic blood pressure greater than 160 5 .History of left breast CA ? With previous partial mastectomy. Patient is on anastrozole 6. Class II obesity with BMI of 35.7 ? Complicating care weight loss advised 7. Bilateral stasis dermatitis ? Consult placed to wound care nurse for heber wrap 8. DVT prophylaxis ? Patient is on systemic anticoagulation currently being held given her presentation 9. Acute cystitis with E. coli ? Patient started on ceftriaxone. Ordered urine culture ? Patient urine cultures came back positive for E. coli discharged on appropriate antibiotic therapy Medications at Discharge Home Medications potassium chloride 10 mEq capsule,extended release 10 meq PO PRN PRN HYPOKALEMIA 10/11/19 meclizine 25 mg tablet 25 mg PO DAILY PRN Vertigo 08/12/21 hydroxyzine HCl 10 mg tablet 10 mg PO TID PRN itching 03/14/23 latanoprost 0.005 % eye drops 1 drp ophthalmic (eye) QPM eye drops 05/24/23 torsemide 20 mg tablet 20 mg PO DAILY PRN PRN Edema 10/27/23 anastrozole 1 mg tablet 1 mg PO DAILY #30 tabs 01/18/24 psyllium husk 0.4 gram capsule (Daily Fiber) 0.4 g PO DAILY supplement 01/18/24 irbesartan 75 mg tablet 75 mg PO DAILY blood pressure 01/29/24 hydroxocobalamin-cobamamide (vit B12) 2,500 mcg disintegrating tablet (Adeno-Hydroxo B12) 1 tab PO Q OTHER DAY supplement 04/22/24 ursodiol 250 mg tablet 250 mg PO DAILY 90 days #90 tabs 04/22/24 rivaroxaban 10 mg tablet (Xarelto) 10 mg PO QDAY #90 tabs 06/26/24 Held on 10/31/24. Instructions: Resume on 11/06/24. hydrocortisone 2.5 % topical cream applic topical DAILY PRN itching 10/28/24 cefpodoxime 100 mg tablet 100 mg PO BID #14 tabs 10/31/24 pantoprazole 40 mg tablet,delayed release (Protonix) 40 mg PO BID 90 days #180 tabs 10/31/24 sucralfate 1 gram tablet 1 g PO BID 6 weeks #84 tabs 10/31/24 Hospital Course Summary of Care Provided Minutes Spent on Discharge: 35 Physical Exam Narrative GENERAL: cooperative HEENT: Atraumatic; normocephalic EYES; Anicteric, Normal Conjunctiva NECK; supple, normal thyroid, RESPIRATORY: Diminished to auscultation CARDIOVASCULAR: Regular S1 S2, GI: soft, normoactive bowel sounds, : No Renal angle tenderness; EXTREMITIES: Bilateral stasis dermatitis, MUSCULOSKELETAL: no muscle wasting NEURO: Awake; no lateralizing signs. SKIN: No Rash PSYCH; Flat affect Weight / BMI Weight Weight: 74 kg Body Mass Index (BMI) 35.3 ABG / Lab / Microbiology Data 10/31/24 04:00 10/31/24 04:00 Laboratory: Laboratory Results - last 24 hr 10/31/24 04:00: WBC 5.8, RBC 2.82 L, Hgb 9.0 L, Hct 27.3 L, MCV 96.8, MCH 31.9, MCHC 33.0, RDW Std Deviation 47.0 H, RDW Coeff of Mihir 13.2, Plt Count 149 L, MPV 11.6, Sodium 141, Potassium 4.1, Chloride 108, Carbon Dioxide 22.7, Anion Gap 10, BUN 17, Creatinine 0.91, Estim Creat Clear Calc 40.60 L, Est GFR (MDRD) Non-Af 62, BUN/Creatinine Ratio 18.2, Glucose 90, Calcium 9.1 Microbiology: Microbiology 10/29/24 02:50 Urine, Clean Catch Urine Culture - Final Escherichia coli GNR Poss Pseudomonas sp D/C Instructions Discharge Diet: No restrictions Discharge Activity: Return to Normal Activity Call your doctor if you observe: Fever of 101 or Higher, Shortness of breath, Fainting spells and Chest pain DC O2, CPAP, BIPAP Needs Home O2 Discharge instructions: No Meaningful Use Info Meaningful Use Meaningful Use Diagnoses (Choose all that apply): None applicable Ischemic Stroke Statin Dosing Therapy Reference: STATIN DOSE THERAPY REFERENCE: * Patients > 75 years receive moderate or high dose statin therapy. * Patients 75 years or YOUNGER should receive HIGH intensity statin dose unless contraindicated. You will be required to document reason for non-treatment if statin daily dose does not meet guidelines. HIGH DOSE STATIN THERAPY DAILY Atorvastatin > than or = to 40 mg Rosuvastatin > than or = to 20 mg Amlodipine + Atorvastatin > than or = to 2.5/40 mg Ezetimibe + Simvastatin 10/80 mg Simvastatin 80mg Discharge Plan Admission Admit Date/Time: 10/28/24 05:38 Attending Provider: Yoel Whiteside Primary Care Provider: Reny Live Consulting Providers: Yoel Powell Discharge Orders/Prescriptions Prescriptions: New cefpodoxime 100 mg tablet 100 mg PO BID Qty: 14 0RF Rx Instructions: must administer with a meal/food pantoprazole [Protonix] 40 mg tablet,delayed release (DR/EC) 40 mg PO BID 90 Days Qty: 180 3RF sucralfate 1 gram tablet 1 g PO BID 42 Days Qty: 84 0RF Continued potassium chloride 10 mEq capsule, extended release 10 meq PO PRN PRN (Reason: HYPOKALEMIA) Patient Comments: 1 tab when takes diuretic latanoprost 0.005 % drops 1 drp ophthalmic (eye) QPM ursodiol 250 mg tablet 250 mg PO DAILY 90 Days Qty: 90 2RF Adeno-Hydroxo B12 2,500 mcg tablet,disintegrating 1 tab PO Q OTHER DAY psyllium husk [Daily Fiber] 0.4 gram capsule 0.4 g PO DAILY anastrozole 1 mg tablet 1 mg PO DAILY Qty: 30 12RF irbesartan 75 mg tablet 75 mg PO DAILY torsemide 20 mg tablet 20 mg PO DAILY PRN PRN (Reason: Edema) meclizine 25 mg Tablet 25 mg PO DAILY PRN (Reason: Vertigo) hydroxyzine HCl 10 mg tablet 10 mg PO TID PRN (Reason: itching) hydrocortisone 2.5 % cream topical DAILY PRN (Reason: itching) Held Xarelto 10 mg tablet 10 mg PO QDAY Qty: 90 3RF Hold Instructions: Resume on 11/06/24. Discontinued famotidine 20 mg tablet 20 mg PO BID 30 Days Qty: 60 0RF Referrals / Follow Up: Reny Live, [employer] BANK CUSTODIAN-C [Primary Care Provider] - Within 1 Week Disposition Disposition (needs filled in before D/C Order can be placed): Home, Self Care Charges/Coding Visit Charges Inpatient E&M: 26835 Disch Hosp >30min
[2024-10-31 08:00] VITALS: BP 127/56; PULSE 65; RESP 12; TEMP 36.6; O2SAT 98
[2024-10-31] MEDS: Menthol/Lanolin/Calamine/Znox 113 GM Tube 1 APPLIC TOPICAL (10:40)
[2024-10-31] MEDS: Pantoprazole Sodium 40 MG in 0.9% Normal Saline (100mL MB+) 100 ML 330 MG IV (10:41)
--- NOTE | 2024-10-31 10:45 | CASEMGMT ---
Addendum entered by Jerardo Villagomez 10/31/24 12:17: Script for OP PT obtained from Dr Whiteside and given to pt & instructed on use. She was made aware of several locations in [place] that do OP PT. She states, if she decides to go, she would prefer to go to [facility], but she will decide later for sure. Original Note: NOAH MURPHY NOTE: DC order is in. RN CM to room. Pt sitting up in chair. She confirms that she still does not want HHC and would like OP script for PT in case she decides to do OP PT once she gets home. Pt is aware to f/u with PCP if she changes her mind about HHC. She is aware Rx's have been e-scribed to [facility] retail pharmacy. She would like [id number] & would like them to call her GD or dtr for payment of any co-pay. Call to Imani in the pharmacy and she was notified & provided w/phone #'s to call for payment. Pt made aware she is to f/u with PCP in one week. Questions answered. She denies having further discharge needs or concerns. Priscilla JORDAN RN CM
[2024-10-31] MEDS: 0.9% Saline Lock 10 ML Syringe IV (10:50)
[2024-10-31] MEDS: Scopolamine 1mg/72hr Patch 1 PATCH TD (12:37)
[2024-10-31 14:00] VITALS: BP 147/54; PULSE 66; RESP 17; TEMP 36.5; O2SAT 100
== END 2024-10-31 17:25 | disposition home or self-care (01) | DRG 381 ==
LOC: ED 06:38 → ICU 06:50
PROVIDERS: Internal Medicine Gastroenterology; Admitting Provider Internal Medicine; Emergency Provider Emergency Medicine; PCP Nurse Practitioner Family; Visit Provider Internal Medicine
PROC: 0DJ08ZZ Inspection of Upper Intestinal Tract, Via Natural or Artificial Opening Endoscopic (ICD-10-PCS; CPT 43235; principal; 2024-10-29 15:55)
DX: K22.11 Ulcer of esophagus with bleeding (principal); D68.32 Hemorrhagic disorder due to extrinsic circulating 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s; D62 Acute posthemorrhagic anemia; N30.00 Acute cystitis without hematuria; Z66 Do not resuscitate; K21.01 Gastro-esophageal reflux disease with esophagitis, with bleeding; E11.9 Type 2 diabetes mellitus without complications; I10 Essential (primary) hypertension; K76.0 Fatty (change of) liver, not elsewhere classified; E66.812 Obesity, class 2; K22.4 Dyskinesia of esophagus; E78.00 Pure hypercholesterolemia, unspecified; K44.9 Diaphragmatic hernia without obstruction or gangrene; I87.2 Venous insufficiency (chronic) (peripheral); L29.9 Pruritus, unspecified; I25.10 Atherosclerotic heart disease of native coronary artery without angina pectoris; M19.90 Unspecified osteoarthritis, unspecified site; R13.10 Dysphagia, unspecified; B96.20 Unspecified Escherichia coli [E. coli] as the cause of diseases classified elsewhere; H40.9 Unspecified glaucoma; Z86.718 Personal history of other venous thrombosis and embolism; Z79.01 Long term (current) use of 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s; Z68.35 Body mass index [BMI] 35.0-35.9, adult; Z82.49 Family history of ischemic heart disease and other diseases of the circulatory system; Z85.3 Personal history of malignant neoplasm of breast; Z86.711 Personal history of pulmonary embolism; T45.515A Adverse effect of 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s, initial encounter
CPT/HCPCS: 36415; 36569; 74175; 80048; 80076; 81001; 83605; 83690; 83735; 84100; 84484; 85014; 85018; 85025; 85027; 85610; 85730; 86850; 86900; 86901; 87086; 87088; 87186; 93005; 94668; 94762; 97116; 97162; 97166; 97530; 97535; 99285; C1889; Q9967; A4216; J2405

== ENCOUNTER → 2024-11-22 | Outpatient (CLI) | payer MEDICARE, OTHER, SELFPAY ==
--- NOTE | 2024-11-22 09:38 | VDLE_ITS ---
Reason For Study Reason For Study: Swelling BLE RIGHT LEFT CFV is compressible, spontaneous, phasic, competent CFV is compressible, spontaneous, phasic, competent, and demonstrates normal augmentation. and demonstrates normal augmentation. FV is compressible, spontaneous, phasic, competent FV is compressible, spontaneous, phasic, competent and demonstrates normal augmentation. and demonstrates normal augmentation. POP V is compressible, spontaneous, phasic, competent POP V is compressible, spontaneous, phasic, competent and demonstrates normal augmentation. and demonstrates normal augmentation. T/P Trunk is compressible. T/P Trunk is compressible. PTV is compressible. PTV is compressible. RT PerV is compressible. LT PerV is compressible. SFJ is competent and measures 0.55cm x 0.65 cm. SFJ is INCOMPETENT and measures 0.69cm x 0.64 cm. GSV proximal thigh measures 0.48cm x 0.58 cm. GSV proximal thigh measures 0.48cm x 0.54 cm. GSV at knee measures 0.51cm x 0.56 cm. GSV at knee measures 0.44cm x 0.49 cm. GSV above knee is competent. GSV INCOMPETENT throughout for greater than 0.5 GSV below knee is INCOMPETENT for greater than 0.5 seconds. seconds. SSV mid calf is INCOMPETENT for greater than 0.5 SSV mid calf is competent and measures 0.23cm x 0.20 seconds and measures 0.27cm x 0.27 cm. cm. ASV mid calf is INCOMPETENT for greater than 0.5 ASV at knee is INCOMPETENT for greater than 0.5 seconds and measures 0.29cmx 0.44 cm. seconds and measures 0.39cm x 0.45 cm. ASV distal calf is INCOMPETENT for greater than 0.5 ASV proximal calf is INCOMPETENT for greater than 0.5 seconds and measures 0.41cm x 0.51 cm. seconds and measures 0.41cm x 0.47 cm. Difficult to visualize calf veins due to patient body ASV mid calf is INCOMPETENT for greater than 0.5 habitus/edema. seconds and measures 0.42cm x 0.41 cm. Difficult to visualize calf veins due to patient body habitus/edema. Procedure This is a venous duplex using B-mode, color flow and spectral Doppler. Exam performed in department. A preliminary report was called and/or faxed to Padmini MAGAÑA. VL/Venous Duplex US - Jasson Extrem Interpretation Summary Deep veins of the bilateral lower extremities are patent and compressible segme ntally. There is no evidence of bilateral lower extremity deep vein thrombosis. The bilateral great saphenous veins appea r patent and compressible segmentally. Positive for reflux in the right great saphenous vein below the knee, accessory saphenous veins at knee/proximal calf/mid calf. Positive for reflux in the left saphenofemoral junction, great saphenous vein t hroughout, small saphenous vein, accessory saphenous vein in mid calf/distal calf Ordering Physician: Padmini Pickard Referring Physician: Reny Live Performed By: Emily Perez, RDRAH, RVT
== END | disposition home or self-care (01) ==
LOC: CVS 09:38
PROVIDERS: PCP Nurse Practitioner Family; Referring Provider Physician Assistant; Visit Provider Physician Assistant
DX: I87.2 Venous insufficiency (chronic) (peripheral) (principal); I87.323 Chronic venous hypertension (idiopathic) with inflammation of bilateral lower extremity
CPT/HCPCS: 93970

== ENCOUNTER → 2025-01-21 | Outpatient (CLI) | payer MEDICARE, OTHER, SELFPAY | END | disposition home or self-care (01) | LOC: LABSPEC 09:07 | PROVIDERS: PCP Nurse Practitioner Family; Visit Provider Physician Assistant | DX: R30.0 Dysuria (principal) | CPT/HCPCS: 87086; 87088 ==

== ENCOUNTER 2025-02-25 09:00 | Outpatient (RCR) | payer MEDICARE, OTHER, SELFPAY ==
[2025-02-20 10:20] VITALS: BP 125/51; PULSE 83; RESP 18; TEMP 36.1
--- NOTE | 2025-02-20 11:36 | HP.PCM_ITS ---
History of Present Illness Date of Service: 02/20/25 Chief Complaint: Bilateral lower extremity wounds/abrasions secondary to chronic venous stasis History of Wound: This is an 84-year-old female who is well-known to the wound care center and is returning for bilateral lower extremity chronic venous stasis ulcerations secondary to significant lower extremity edema complicated by lymphedema. She has PMHx of chronic venous insufficiency, lymphedema, lipodermatosclerosis, GERD, HTN, DM type II, Hx of bilateral lower extremity DVT, Hx of thrombophlebitis, Hx breast cancer with regional node metastasis, hiatal hernia, anemia, obesity, and GI bleed. She returns to the wound care center for continued significance of her lower extremity edema and multiple small ulcerations/skin tears of bilateral lower extremity secondary to her edema. Per documentation she has been following with Dr. Arthur for continued venous stasis and did undergo venous studies in November 2024. Patient states that she cannot tolerate any form of compression and does not want to wear compression, and cannot elevate lower extremities due to back pain and has difficulty sleeping flat due to back pain. Patient has been seen over the last several years for the same issue of swelling with chronic complaint of inability to tolerate compression. She had been on Eliquis for her DVT however has not been able to tolerate medication secondary to dysphagia thus this has been discontinued. From discussion it still seems that she does spend a good part of each day in a reclining chair but does not recline/elevate the feet and often has slept in this position. Patient is not active and does spend a large amount of her day in the seated position. She denies constitutional symptoms today. Denies further complaints. [facility] Medical History (Updated 02/20/25 @ 12:[address] Jacques Candelaria, DPM) Non-pressure chronic ulcer of left calf with fat layer exposed Dysuria Acute blood loss anemia Adverse drug reaction History of breast cancer Mass of left axilla Encounter for education Regional lymph node metastasis present Glaucoma Loss of hearing Wears glasses Cancer Pressure ulcer Fatty liver History of IBS Leg cramps Cellulitis Venous ulcer of left leg Venous ulcer of right leg Chronic ulcer of left lower extremity Hiatal hernia Venous hypertension, chronic, with inflammation Chronic venous insufficiency Leg wound, left Nodular goiter Wears dentures Post-menopausal Diabetes Ambulates with cane Arthritis Back pain Loss of consciousness History of hiatal hernia Gastric reflux Shortness of breath on exertion History of edema History of echocardiogram History of stress test Hypertension Cardiology follow-up encounter History of bleeding ulcers Choledocholithiasis Peripheral arterial disease Osteoporosis GI bleed Non-smoker DVT (deep venous thrombosis) Abdominal pain Pure hypercholesterolemia Essential hypertension Pressure ulcer of right buttock, stage 3 Decubitus ulcer of left buttock, stage 2 Venous stasis ulcer Hiatal hernia Edema of both legs Osteoarthritis GERD (gastroesophageal reflux disease) Abnormal exercise myocardial perfusion study Palpitations Atherosclerotic heart disease of [place] coronary artery without angina pectoris Leg swelling Hyperpigmentation of skin Lipodermatosclerosis Chronic venous hypertension (idiopathic) with inflammation of bilateral lower extremity Localized edema Generalized weakness Hypertension Chronic venous hypertension (idiopathic) with ulcer of left lower extremity Chronic venous stasis dermatitis Non-pressure chronic ulcer of left ankle with fat layer exposed Cellulitis of left leg Failure to thrive Positional vertigo Ulcer Obesity Hx of venous thrombosis and embolism history of cellulitis of leg Home Medications ?Medication ?Instructions ?Recorded ?Last Taken ?Type potassium chloride 10 mEq 10 meq PO PRN PRN HYPOKALEMI A 10/11/19 12/18/23 History capsule,extended release meclizine 25 mg tablet 25 mg PO DAILY PRN Vertigo 0 08/12/21 Unknown History latanoprost 0.005 % eye drops 1 drp ophthalmic (eye) Q PM eye 05/24/23 10/27/24 History drops torsemide 20 mg tablet 20 mg PO DAILY PRN PRN Edema 10/27/23 Unknown History irbesartan 75 mg tablet 75 mg PO DAILY blood pressur e 01/29/24 10/27/24 History ursodiol 250 mg tablet 250 mg PO DAILY 90 days #90 tabs 04/22/24 10/27/24 Rx rivaroxaban 10 mg tablet (Xarelto) 10 mg PO QDAY #90 t abs 06/26/24 10/27/24 Rx hydrocortisone 2.5 % topical cream 1 applic topical DA GARY PRN itching 10/28/24 10/26/24 History pantoprazole 40 mg tablet,delayed 40 mg PO BID 90 days #180 tabs 10/31/24 Unknown Rx release (Protonix) sucralfate 1 gram tablet 1 g PO BID 6 weeks #84 tabs 10/31/24 Unknown Rx Held on 02/20/25. Instructions: Order Completed anastrozole 1 mg tablet 1 mg PO DAILY #90 tabs 07/21 /25 Unknown Rx cefpodoxime 100 mg tablet 100 mg PO BID #14 tabs 01/21 Unknown Rx famotidine 20 mg tablet 20 mg PO BID 02/20/25 Unknow n History fluorouracil 5 % topical cream 1 applic topical BID Unknown History hydroxyzine HCl 10 mg tablet 10 mg PO TID itch 5 Unknown History nitrofurantoin 1 cap PO Q12.TCU 02/20/25 Un known History monohydrate/macrocrystals 100 mg capsule rivaroxaban 10 mg tablet (Xarelto) 10 mg PO DAILY 02/03 01/27 Unknown History Allergy/AdvReac Type Severity Reaction Status Date / Time neomycin sulfate (From Allergy Severe Itching Verified 01/21/25 08:44 Neosporin ([id number])) benzethonium chloride (From Allergy Unknown unknown Verified 01/21/25 08:44 Lanacane [place]) benzocaine (From Lanacane Allergy Unknown unknown Verified 01/21/25 08:44 [place]) levofloxacin (From Levaquin) Allergy Unknown Rash Verified 01/21/25 08:44 cefdinir Allergy Other Verified 01/21/25 08:44 ezetimibe (From Zetia) Allergy Itching Verified 01/21/25 08:44 neomycin (Neomycin) Allergy gets in Verified 01/21/25 08:44 blood stream and pass out polymyxin B (Polymyxin B) Allergy Unknown Verified 01/21/25 08:44 Sulfa (Sulfonamide Allergy Unknown Verified 01/21/25 08:44 Antibiotics) tetracycline (Tetracycline) Allergy Itching Verified 01/21/25 08:44 adhesive tape AdvReac Severe skin Verified 01/21/25 08:44 pulling lisinopril AdvReac Intermediate cough Verified 01/21/25 08:44 cephalexin AdvReac Mild Other Verified 01/21/25 08:44 atorvastatin calcium (From AdvReac Pain in Verified 01/21/25 08:44 Lipitor) joints, muscle damage Family History Mother CAD (coronary artery disease) Myocardial infarction Son Hypertension Brother AAA (abdominal aortic aneurysm) Father Diabetes Heart disease CAD (coronary artery disease) Liver disease Other Arthritis Bleeding disorder Blood clot in vein Bowel disease Cancer H/O ulcer disease Osteoporosis Severe allergy Surgical History (Updated 01/21/25 @ 08:33 by Ketty Rascon MA) Hx of breast surgery History of foot surgery History of ERCP History of cholecystectomy History of hernia repair History of left heart catheterization (06/14/13) H/O dilation and curettage Lipoma History of tubal ligation History of cataract surgery Rectal fistula Social History household members: none housing: house current occupational status: employed Smoking Status: Never smoker alcohol intake: never substance use type: does not use caffeine: Yes Type: coffee Number of servings: 3 what type of physical activity do you participate in: none seatbelt use: always do you feel safe at home: Yes ROS Constitutional Constitutional: Denies anorexia, change in weight, chills, fatigue or fever(s) Eyes Eyes: Denies blurry vision, change in vision or double vision ENT HEENT: Denies dysphagia, nasal congestion or nasal discharge Cardiovascular Cardiovascular: Denies chest pain, claudication or palpitations Respiratory/Chest Respiratory/Chest: Denies cough, shortness of breath at rest or wheezing Gastrointestinal Gastrointestinal: Denies abdominal pain, constipation, diarrhea, nausea or vomiting Genitourinary Genitourinary: Denies dysuria, hematuria or urinary urgency Musculoskeletal Musculoskeletal: Denies joint pain, joint stiffness or joint swelling Integumentary Integumentary: Denies lesions, pruritus or rash Neurologic Neurologic: Denies dizziness, numbness or seizures Psychiatric Psychiatric: Denies anxiety or depression Endocrine Endocrinology: Denies cold intolerance or heat intolerance Hematologic/Lymphatic Hematologic/Lymphatic: Denies easy bleeding or easy bruising Vital Signs Vital Signs Vital Signs: 02/20/25 10:20 Temperature 97 F L Temperature Source Temporal Pulse Rate 83 Respiratory Rate 18 Blood Pressure 125/51 H Blood Pressure Mean 75 Blood Pressure Source Monitor Blood Pressure Position Sitting Blood Pressure Location Right Arm Oxygen Delivery Method Room Air Physical Exam Const alert, oriented x3 and no apparent distress General Appearance: cooperative HEENT normocephalic Eyes General Eye: normal appearance of both eyes Neck General: normal visual inspection Lymph Lymphatic: no lymphadenopathy noted and no lymphedema noted Resp normal respiratory effort Cardio regular rate and regular rhythm Extremity no calf tenderness Extremity Narrative: Bilateral lower extremity: Vascular: DP pulse palpable, PT pulse nonpalpable secondary to significant edema. CFT is less than 5 seconds to digits. Normal temperature gradient. Pedal hair growth is absent to digits/lower leg Neurologic: Gross sensation is intact. Protective sensation is diminished at toes. Musculoskeletal: Muscle strength 5 of 5 age-appropriate. Decreased range of motion of the ankle joint dorsiflexion with the knee extended without pain or crepitus. Decreased range of motion of the first MTPJ without pain or crepitus. Dermatologic: There is significant lower extremity pitting edema secondary to chronic venous stasis/insufficiency. There is also skin changes consistent with lymphedema/lipodermatosclerosis with rubor present secondary to skin irritation. There is multiple superficial lower extremity ulceration secondary to skin tearing in relation to her significant edema. Ulceration sites are healthy with granular base and some superficial fibrotic sloughing secondary to previous drainage/crusting. Skin General Skin Exam: venous stasis and dermatitis Neuro moves all extremities Debridement Note Debridement Note Wound debrided: Left lower extremity Laterality: Left Wound Grade/Stage: [place] stage I Type of Debridement: Excisional debridement Anesthesia Used: 5% Lidocaine Gel Depth: Down to and including healthy tissue and in the subcutaneous layer Percentage of wound debrided: 100 Instrument Used: 5mm curette Tissue Removed: Fibrous, devitalized subcutaneous, biofilm, slough Severity: Fat Layer Exposed Amount of bleeding with debridement: Mild Bleeding Controlled with: Compression and gauze Patient tolerated procedure: Patient tolerated procedure well Post-Debridement Measurements and Additional Note: Post-Debridement Measurements/Treatment - Nurse 1 - General Ulcer Assessment Start: 02/20/25 10:19 Freq: Status: Active Protocol: .KVNG Activity Type Activity Date Activity User E-sign Co-sign Detail Recorded Client Recorded Date Recorded By Document 02/20/25 10:20 [facility] [id number] 02/20/25 10:30 [facility] 02/20/25 10:20 - Today's Visit Information Type of service Follow-up Visit (Physician/CREDIT ADMINISTRATION OFFICER ) Arrival Mode Ambulatory, Wheelchair Accompanied by daughter Patient Identification Verified (Name & Yes ) Safety Precautions Fall Prevention Vital Signs Temperature (97.8 F-99.1 F) 97 F L Temperature Source Temporal Pulse Rate (60-100) 83 Pulse Location Monitor Respiratory Rate (12-18) 18 Respiratory rate source Observation Oxygen Delivery Method Room Air Blood Pressure (90/60-120/80) 125/51 H Blood Pressure Mean 75 Source Monitor Position Sitting Blood Pressure Location Right Arm History Since Last Visit- (Skip if this is Patient's initial visit) Has dressing in place as prescribed Yes Has compression in place as prescribed Yes Has offloadiing in place as prescribed Yes Experienced any changes in pain level or Yes management Left Footwear Regular Shoe Right Footwear Regular Shoe Pain Scale: 0-10 Numeric Is Patient Pain Free? Yes WC - Nurse 1 - General Ulcer Measurement Start: 02/20/25 10:19 Freq: Status: Active Protocol: Activity Type Activity Date Activity User E-sign Co-sign Detail Recorded Client Recorded Date Recorded By Document 02/20/25 10:20 [facility] [id number] 02/20/25 10:30 [facility] 02/20/25 10:20 Wound Center Nurse 1 #12 Right Lower Legs Cluster -Current Size (cm) - Length 0.1 -Current Size (cm) - Width 0.1 -Current Size (cm) - Depth 0.1 -Total Square Cm 0.01 -Date of Last Picture (Recall this 02/20/25 field) -Photo Taken Yes -Tunneling No -Undermining/Tunneling No -Circular Undermining No -Exudate Amt Large -Exudate Type Serosanguineous -Wound Margin Flat & Intact -Granulation Amt Large (67-100%) -Granulation Quality Pale,[place] -Necrosis Amt Small (1-33%) -Necrotic Tissue Type Adherent Slough -Texture (Leslye-wound Skin Appearance) Assessed, Localized Edema -Moisture (Leslye-wound Skin Appearance) Assessed, Maceration, Weeping -Color (Leslye-wound Skin Appearance) Assessed, Erythema, Hemosiderin Staining -Temperature (Leslye-wound Skin No Abnormality Appearance) (Pt Warm) -Tenderness on Palpation (Leslye-wound No Skin Appearance) -Ulcer Cleansing Soap and Water -Foul Odor after Cleansing No -Anesthetic Used 5% Lidocaine Gel #13 Left Lower leg medial -Current Size (cm) - Length 0.1 -Current Size (cm) - Width 0.1 -Current Size (cm) - Depth 0.1 -Total Square Cm 0.01 -Date of Last Picture (Recall this 02/20/25 field) -Photo Taken Yes -Tunneling No -Undermining/Tunneling No -Circular Undermining No -Exudate Amt Medium -Exudate Type Serosanguineous -Wound Margin Flat & Intact -Granulation Amt Large (67-100%) -Granulation Quality Pale,[place] -Necrosis Amt Small (1-33%) -Texture (Leslye-wound Skin Appearance) Assessed -Moisture (Leslye-wound Skin Appearance) Assessed -Color (Leslye-wound Skin Appearance) Assessed -Temperature (Leslye-wound Skin No Abnormality Appearance) (Pt Warm) -Tenderness on Palpation (Leslye-wound No Skin Appearance) -Ulcer Cleansing Soap and Water -Foul Odor after Cleansing No -Anesthetic Used 5% Lidocaine Gel Right Calf (cm) 50 Right Ankle (cm) 32.5 Left Calf (cm) 51 Left Ankle (cm) 27.5 WC - Nurse 2 - General Ulcer CM Notes Start: 02/20/25 10:19 Freq: Status: Active Protocol: Activity Type Activity Date Activity User E-sign Co-sign Detail Recorded Client Recorded Date Recorded By Document 02/20/25 10:52 [facility] [id number] 02/20/25 11:04 [facility] 02/20/25 10:52 Wound Center Nurse 2 #13 Left Lower leg medial -Time 10:54 -Correct Patient Yes -Correct Side, Site, Position Yes -Correct Procedure Yes -Procedure Performed Yes -Type of Procedure Debridement -Clinical Debridement Subcutaneous -Tissue Removed Subcutaneous -Post Debridement (cm) - Length 1.5 -Post Debridement (cm) - Width 1.3 -Post Debridement (cm) - Depth 0.1 -Total Square (Post) (cm) 1.95 -Area of Debridement (cm) - Length 1.5 -Area of Debridement (cm) - Width 1.3 -Total Square (Area) (cm) 1.95 -Tunneling No -Undermining/Tunneling No -Circular Undermining No -Ulcer Cleansing Rinsed/ Irrigated with Saline -Foul Odor after Cleansing No -Bioengineered Tissue No -Bleeding Controlled with Pressure -Treatment Response Procedure Tolerated Well -Debridement - Subq, 1st 20sq cm Yes #1 Left Medial Lower Extremity -Time 11:04 -Correct Patient Yes -Correct Side, Site, Position Yes -Correct Procedure Yes -Procedure Performed Yes -Type of Procedure Debridement -Clinical Debridement Subcutaneous -Tissue Removed Subcutaneous -Post Debridement (cm) - Length 1.5 -Post Debridement (cm) - Width 3 -Post Debridement (cm) - Depth 0.1 -Total Square (Post) (cm) 4.5 -Area of Debridement (cm) - Length 1.5 -Area of Debridement (cm) - Width 3 -Total Square (Area) (cm) 4.5 -Tunneling No -Undermining/Tunneling No -Circular Undermining No -Wound/Ulcer Outcome Not Healed -Ulcer Cleansing Rinsed/ Irrigated with Saline -Foul Odor after Cleansing No -Bioengineered Tissue No -Bleeding Controlled with Pressure -Treatment Response Procedure Tolerated Well -Debridement - Subq, 1st 20sq cm Yes Pain Scale: 0-10 Numeric Is Patient Pain Free? Yes WC - Nurse 3 - General Ulcer D/C NN Start: 02/20/25 10:19 Freq: Status: Active Protocol: Activity Type Activity Date Activity User E-sign Co-sign Detail Recorded Client Recorded Date Recorded By Document 02/20/25 11:26 [facility] [id number] 02/20/25 11:31 [facility] 02/20/25 11:26 Wound Care Center Nurse 3 #13 Left Lower leg medial -Primary Dressing Applied Promogran Milena Matter -Promogran Milena Matter 1 BLE -Multi-Layered Wrap Application Unna Boot - Bilateral -Unna- Bilat (Qty applied) 1 Pain Scale: 0-10 Numeric Is Patient Pain Free? Yes Assessment/Plan Assessment/Plan (1) Non-pressure chronic ulcer of right calf with fat layer exposed: CODE(S): L97.212 - Non-pressure chronic ulcer of right calf with fat layer exposed (2) Lymphedema: CODE(S): I89.0 - Lymphedema, not elsewhere classified (3) Non-pressure chronic ulcer of left calf with fat layer exposed: CODE(S): L97.222 - Non-pressure chronic ulcer of left calf with fat layer exposed (4) Chronic venous insufficiency: CODE(S): I87.2 - Venous insufficiency (chronic) (peripheral) (5) Lipodermatosclerosis of both lower extremities: CODE(S): M79.3 - Panniculitis, unspecified (6) Type 2 diabetes mellitus without complications: CODE(S): E11.9 - Type 2 diabetes mellitus without complications PLAN: Plan Patient seen and evaluated Predebridement measurement: 1.4 cm x 1.2 cm x 0.1 cm Postdebridement measurement: 1.5 cm x 1.3 cm x 0.1 cm Ulceration was debrided as noted in the clinical panel above. Following debridement site was dressed with Milena to the wound bed and bilateral Unna boots were applied for compression status. Discussed with the patient and her daughter today the essential need to continue compression despite her intolerance. Discussed with the patient that without compression therapy this will continue to be an issue with swelling and ulcerations to the lower extremities. Discussed her history of bilateral lower extremity edema as in which she has seen Dr. Brothers in the past, Dr. Arthur, and Racquel Fritz NP. Discussed that this continues to remain an issue with frequent return to wound care center due to failure in compliance to wear compression stockings Discussed the need to elevate legs higher than what she had previously been doing despite discomfort level to aid in edema control. Discussed with the patient and daughter she may need to have adjustment of her current Lasix therap y to aid in edema control. Discussed laying flat in bed with possible pillow modification under her lower back so that she may have a level status to aid in venous return/control of lower extremity edema as opposed to sleeping in a recliner with legs down. Discussed the need to continue to move at multiple points of the day instead of remaining in a seated position with legs down. Discussed once lower extremities have edema improved she would be required to wear compression stocking versus a juxta light compression wrapping to aid in continuing to control lower extremity edema. Discussed diet to maintain strict glycemic control to aid in wound healing. Discussed protein supplement to continue to aid in wound healing. Discussed signs and symptoms of infection. Discussed if she notices continued redness around the ulcerative sites that spreads up the leg, purulent drainage from any wound site, increasing foul odor from the wounds, or if she experiences fever greater than 101 degree accompanied by nausea, vomiting, chills is even signs of a progressing infection and she should report to the ED for IV antibiotics and further evaluation. She and daughter are understanding of this today. The following work up and care recommendations were made: Dressing: Milena, dry sterile dressing, and Unna boot compression to bilateral lower extremities. Wash: Do not get wet. Utilize cast bags when showering to maintain compliance. Tissue growth optimization: Milena Offload: Unna boot compression therapy Vascular: DP pulse was palpable, PT nonpalpable secondary to significant lower extremity edema. Hx of vascular occlusion in 2020 but appears current status is not affecting wound healing as this is mostly venous insufficiency/lipodermatosclerosis Edema: Bilateral Unna boot compression therapy, elevation of lower extremities, lifestyle modification Infection: No signs of infection Pain: May take [id number] Tylenol for discomfort given diabetic status Host factors: DM type II, lipodermatosclerosis, chronic venous insufficiency, noncompliance and compression treatment all complicates care I answered all the patient's questions. To return to the wound healing center in 1 week or call sooner if the patient has any questions or concerns.
--- NOTE | 2025-02-21 09:40 | WC ---
PHOTO-RIGHT LOWER LEG 02/20/25
--- NOTE | 2025-02-21 09:42 | WC ---
PHOTO-LEFT LOWER LEG 02/20/25
--- NOTE | 2025-02-21 09:52 | WC ---
PHOTO-RIGHT LOWER LEG 02/20/25
--- NOTE | 2025-02-21 09:54 | WC ---
PHOTO-LLE 02/20/25
[2025-02-25 10:27] VITALS: BP 132/88; PULSE 81; RESP 16; TEMP 35.7
--- NOTE | 2025-03-04 08:25 | WC ---
Dr. Candelaria transfers care of this patient over to Dr. Finnegan as of 02/27/25
== END 2025-03-04 23:59 | disposition home or self-care (01) ==
LOC: WC 09:00
PROVIDERS: PCP Nurse Practitioner Family; Referring Provider Nurse Practitioner Family; Visit Provider Internal Medicine
DX: E11.51 Type 2 diabetes mellitus with diabetic peripheral angiopathy without gangrene (principal); E11.621 Type 2 diabetes mellitus with foot ulcer; L97.222 Non-pressure chronic ulcer of left calf with fat layer exposed; L97.212 Non-pressure chronic ulcer of right calf with fat layer exposed; E11.59 Type 2 diabetes mellitus with other circulatory complications; I87.2 Venous insufficiency (chronic) (peripheral); I89.0 Lymphedema, not elsewhere classified
CPT/HCPCS: 11042; 29580; 99213; G0463

== ENCOUNTER 2025-04-03 09:15 | Outpatient (RCR) | payer MEDICARE, OTHER, SELFPAY ==
[2025-03-06 08:50] VITALS: BP 137/72; PULSE 83; RESP 18; TEMP 36.2; O2SAT 94
--- NOTE | 2025-03-06 12:17 | PCM.WC.HP ---
History of Present Illness Date of Service: 03/06/25 Chief Complaint: Left lower extremity ulceration History of Wound: Ms. Soares is an 84-year-old who is a transfer of care to mo. Had previously seen podiatry/wound care here. Being seen for lower extremity ulcerations. Chronic history of venous stasis/venous ulcerations. Also follows up with vascular recently had studies done. Difficulty with compression compliance due to other chronic morbidities/factors. Also very largely sedentary sitting in a chair most of the day. Had an Unna boot on which she did not tolerate as well, she states that it felt too tight this time but had tolerated the first time it was applied 2 weeks prior. History of diabetes mellitus which is well-controlled, currently not on medication for this. She states that she feels well otherwise. Appetite is good. No chills, fever or new concerns reported. [facility] Medical History (Updated 03/06/25 @ 13:[address] David Finnegan MD) Ulcer of left lower extremity with fat layer exposed Non-pressure chronic ulcer of left calf with fat layer exposed Dysuria Acute blood loss anemia Adverse drug reaction History of breast cancer Mass of left axilla Encounter for education Regional lymph node metastasis present Glaucoma Loss of hearing Wears glasses Cancer Pressure ulcer Fatty liver History of IBS Leg cramps Cellulitis Venous ulcer of left leg Venous ulcer of right leg Chronic ulcer of left lower extremity Hiatal hernia Venous hypertension, chronic, with inflammation Chronic venous insufficiency Leg wound, left Nodular goiter Wears dentures Post-menopausal Diabetes Ambulates with cane Arthritis Back pain Loss of consciousness History of hiatal hernia Gastric reflux Shortness of breath on exertion History of edema History of echocardiogram History of stress test Hypertension Cardiology follow-up encounter History of bleeding ulcers Choledocholithiasis Peripheral arterial disease Osteoporosis GI bleed Non-smoker DVT (deep venous thrombosis) Abdominal pain Pure hypercholesterolemia Essential hypertension Pressure ulcer of right buttock, stage 3 Decubitus ulcer of left buttock, stage 2 Venous stasis ulcer Hiatal hernia Edema of both legs Osteoarthritis GERD (gastroesophageal reflux disease) Abnormal exercise myocardial perfusion study Palpitations Atherosclerotic heart disease of [place] coronary artery without angina pectoris Leg swelling Hyperpigmentation of skin Lipodermatosclerosis Chronic venous hypertension (idiopathic) with inflammation of bilateral lower extremity Localized edema Generalized weakness Hypertension Chronic venous hypertension (idiopathic) with ulcer of left lower extremity Chronic venous stasis dermatitis Non-pressure chronic ulcer of left ankle with fat layer exposed Cellulitis of left leg Failure to thrive Positional vertigo Ulcer Obesity Hx of venous thrombosis and embolism history of cellulitis of leg Home Medications Medication Instructions Recorded Last Taken Type potassium chloride 10 mEq 10 meq PO PRN PRN HYPOKALEMIA 10/11/19 12/18/23 History capsule,extended release meclizine 25 mg tablet 25 mg PO DAILY PRN Vertigo 08/12/21 Unknown History latanoprost 0.005 % eye drops 1 drp ophthalmic (eye) QPM eye 05/24/23 10/27/24 History drops torsemide 20 mg tablet 20 mg PO DAILY PRN PRN Edema 10/27/23 Unknown History irbesartan 75 mg tablet 75 mg PO DAILY blood pressure 01/29/24 10/27/24 History rivaroxaban 10 mg tablet (Xarelto) 10 mg PO QDAY #90 tabs 06/26/24 10/27/24 Rx hydrocortisone 2.5 % topical cream 1 applic topical DAILY PRN itching 10/28/24 10/26/24 History pantoprazole 40 mg tablet,delayed 40 mg PO BID 90 days #180 tabs 10/31/24 Unknown Rx release (Protonix) sucralfate 1 gram tablet 1 g PO BID 6 weeks #84 tabs 10/31/24 Unknown Rx Held on 02/20/25. Instructions: Order Completed anastrozole 1 mg tablet 1 mg PO DAILY #90 tabs 12/23/24 Unknown Rx cefpodoxime 100 mg tablet 100 mg PO BID #14 tabs 01/21/25 Unknown Rx famotidine 20 mg tablet 20 mg PO BID 02/20/25 Unknown History fluorouracil 5 % topical cream 1 applic topical BID 02/20/25 Unknown History hydroxyzine HCl 10 mg tablet 10 mg PO TID itch 02/20/25 Unknown History nitrofurantoin 1 cap PO Q12.TCU 02/20/25 Unknown History monohydrate/macrocrystals 100 mg capsule rivaroxaban 10 mg tablet (Xarelto) 10 mg PO DAILY 02/20/25 Unknown History ursodiol 250 mg tablet 250 mg PO DAILY 90 days #90 tabs 03/03/25 Unknown Rx Allergy/AdvReac Type Severity Reaction Status Date / Time neomycin sulfate (From Allergy Severe Itching Verified 01/21/25 08:44 Neosporin ([id number])) benzethonium chloride (From Allergy Unknown unknown Verified 01/21/25 08:44 Lanacane [place]) benzocaine (From Lanacane Allergy Unknown unknown Verified 01/21/25 08:44 [place]) levofloxacin (From Levaquin) Allergy Unknown Rash Verified 01/21/25 08:44 cefdinir Allergy Other Verified 01/21/25 08:44 ezetimibe (From Zetia) Allergy Itching Verified 01/21/25 08:44 neomycin (Neomycin) Allergy "gets in Verified 01/21/25 08:44 blood stream and pass out" polymyxin B (Polymyxin B) Allergy Unknown Verified 01/21/25 08:44 Sulfa (Sulfonamide Allergy Unknown Verified 01/21/25 08:44 Antibiotics) tetracycline (Tetracycline) Allergy Itching Verified 01/21/25 08:44 adhesive tape AdvReac Severe skin Verified 01/21/25 08:44 pulling lisinopril AdvReac Intermediate cough Verified 01/21/25 08:44 cephalexin AdvReac Mild Other Verified 01/21/25 08:44 atorvastatin calcium (From AdvReac Pain in Verified 01/21/25 08:44 Lipitor) joints, muscle damage Family History Mother CAD (coronary artery disease) Myocardial infarction Son Hypertension Brother AAA (abdominal aortic aneurysm) Father Diabetes Heart disease CAD (coronary artery disease) Liver disease Other Arthritis Bleeding disorder Blood clot in vein Bowel disease Cancer H/O ulcer disease Osteoporosis Severe allergy Surgical History (Updated 01/21/25 @ 08:33 by Ketty Rascon MA) Hx of breast surgery History of foot surgery History of ERCP History of cholecystectomy History of hernia repair History of left heart catheterization (06/14/13) H/O dilation and curettage Lipoma History of tubal ligation History of cataract surgery Rectal fistula Social History household members: none housing: house current occupational status: employed Smoking Status: Never smoker alcohol intake: never substance use type: does not use caffeine: Yes Type: coffee Number of servings: 3 what type of physical activity do you participate in: none seatbelt use: always do you feel safe at home: Yes ROS Constitutional Constitutional: Denies anorexia, change in weight, chills, excessive sweating, fatigue or fever(s) Eyes Eyes: Denies blurry vision, burning, change in vision, discharge from eye(s), discongugate gaze or double vision ENT HEENT: Denies dysphagia, foreign body in nose, halitosis, hearing loss, nasal congestion or nasal discharge Cardiovascular Cardiovascular: Denies bluish discoloration of hand/feet, chest pain, claudication, cold extremities, cyanosis, diaphoresis or palpitations Respiratory/Chest Respiratory/Chest: Denies cough, excessive phlegm production, hemoptysis, hoarseness, inability to speak, shortness of breath at rest or wheezing Gastrointestinal Gastrointestinal: Denies abdominal pain, bloating, constipation, diarrhea, nausea or vomiting Genitourinary Genitourinary: Denies abdominal discomfort, dysuria, flank pain, hematuria or urinary urgency Musculoskeletal Musculoskeletal: Denies joint pain, joint stiffness, joint swelling, numbness, tingling or tremors Integumentary Integumentary: Reports wounds; Denies furuncle, hirsutism, jaundice, lesions, pruritus or rash Neurologic Neurologic: Denies abnormal speech, behavior changes, dizziness, lack of coordination, numbness or seizures Psychiatric Psychiatric: Denies anxiety, auditory hallucinations, behavioral changes, depression, tactile hallucinations or visual hallucinations Endocrine Endocrinology: Denies cold intolerance, deepening of the voice, excessive sweating, fatigue, heat intolerance or increase in ring/shoe/hat size Hematologic/Lymphatic Hematologic/Lymphatic: Denies easy bleeding, easy bruising or lymphadenopathy Allergic/Immunologic Allergic/Immunologic: Denies itchy eyes, lip swelling, tongue swelling, hives, urticaria or eczemia Vital Signs Vital Signs Vital Signs: 03/06/25 08:50 Temperature 97.2 F L Temperature Source Temporal Pulse Rate 83 Respiratory Rate 18 Blood Pressure 137/72 H Blood Pressure Mean 93 Blood Pressure Source Monitor Blood Pressure Position Semi-Fowlers Blood Pressure Location Right Arm Pulse Ox 94 Oxygen Delivery Method Room Air Physical Exam Const alert, oriented x3 and no apparent distress General Appearance: cooperative and comfortable HEENT normocephalic, head/scalp atraumatic and hearing grossly normal bilaterally Eyes EOMs intact bilaterally General Eye: normal appearance of both eyes Neck full ROM General: normal visual inspection Resp normal respiratory effort Effort and Inspection: able to speak in complete sentences Extremity General Extremity: edema Skin General Skin Exam: venous stasis Wounds: wounds noted size Size: See Clinical note, bed granulating well, margins well approximated, no odor, open and surrounding erythema Neuro oriented x3, CN's II-XII intact bilaterally, moves all extremities and no focal motor deficits Psych mental status grossly normal, thought process normal, cooperative and affect normal Debridement Note Debridement Note Wound debrided: Left lower extremity (medial) Anesthesia Used: 5% Lidocaine Gel Depth: Down to and including healthy tissue and in the subcutaneous layer Percentage of wound debrided: 100 Instrument Used: 5mm curette Tissue Removed: Slough and devitalized tissue Severity: Fat Layer Exposed Amount of bleeding with debridement: Mild Bleeding Controlled with: Pressure Patient tolerated procedure: Patient tolerated procedure well Post-Debridement Measurements and Additional Note: Post-Debridement Measurements/Treatment - Nurse 1 - General Ulcer Assessment Start: 03/06/25 08:50 Freq: Status: Active Protocol: DYAN Activity Type Activity Date Activity User E-sign Co-sign Detail Recorded Client Recorded Date Recorded By Document 03/06/25 08:50 LIVE [id number] 03/06/25 09:04 LIVE 03/06/25 08:50 - Today's Visit Information Type of service Follow-up Visit (Physician/PHARMACY BILLING ADJUDICATOR ) Arrival Mode Cane,Wheelchair Transfer Assistance None Transfer Assist (Other) 1 Accompanied by daughter Patient Identification Verified (Name & Yes ) Patient Requires Transmission-Based No Precautions Safety Precautions Fall Prevention Vital Signs Temperature (97.8 F-99.1 F) 97.2 F L Temperature Source Temporal Pulse Rate (60-100) 83 Pulse Location Monitor Respiratory Rate (12-18) 18 Respiratory rate source Observation Pulse Oximetry 94 Oxygen Delivery Method Room Air Blood Pressure (90/60-120/80) 137/72 H Blood Pressure Mean 93 Source Monitor Position Semi-Fowlers Blood Pressure Location Right Arm History Since Last Visit- (Skip if this is Patient's initial visit) Have you changed medications since your No last visit? Any new allergies or adverse reactions No Had a fall/change in ADL's that may No increase risk of falls Signs or symptoms of abuse and/or No neglect since last visit Have you been in the hospital since your No last visit? Has dressing in place as prescribed Yes Has compression in place as prescribed Yes Has offloadiing in place as prescribed N/A Experienced any changes in pain level or No management Left Footwear Regular Shoe Right Footwear Regular Shoe Pain Scale: 0-10 Numeric Is Patient Pain Free? Yes WC - Nurse 1 - General Ulcer Measurement Start: 03/06/25 08:50 Freq: Status: Active Protocol: Activity Type Activity Date Activity User E-sign Co-sign Detail Recorded Client Recorded Date Recorded By Document 03/06/25 09:04 LIVE [id number] 03/06/25 09:19 LIVE 03/06/25 09:04 Wound Center Nurse 1 #14 LLE lateral -Combined with other wound No -Current Size (cm) - Length 0.5 -Current Size (cm) - Width 0.8 -Current Size (cm) - Depth 0.1 -Total Square Cm 0.40 -Date of Last Picture (Recall this 03/06/25 field) -Photo Taken Yes -Tunneling No -Undermining/Tunneling No -Circular Undermining No -Exudate Amt None Present -Wound Margin Distinct, Outline Attached -Granulation Amt None Present (0 %) -Slough/Fibrin Yes -Necrosis Amt Large (67-100%) -Necrotic Tissue Type Adherent Slough -Texture (Leslye-wound Skin Appearance) Assessed -Moisture (Leslye-wound Skin Appearance) Assessed -Color (Leslye-wound Skin Appearance) Assessed -Temperature (Leslye-wound Skin No Abnormality Appearance) (Pt Warm) -Tenderness on Palpation (Leslye-wound Yes Skin Appearance) -Ulcer Cleansing Soap and Water -Foul Odor after Cleansing No -Anesthetic Used 5% Lidocaine Gel #1 Left Medial Lower Extremity -Combined with other wound No -Current Size (cm) - Length 2.1 -Current Size (cm) - Width 1.8 -Current Size (cm) - Depth 0.1 -Total Square Cm 3.78 -Date of Last Picture (Recall this 03/06/25 field) -Photo Taken Yes -Tunneling No -Undermining/Tunneling No -Circular Undermining No -Exudate Amt Medium -Exudate Type Serosanguineous -Wound Margin Distinct, Outline Attached -Granulation Amt Small (1-33%) -Granulation Quality [place] -Slough/Fibrin Yes -Necrosis Amt Large (67-100%) -Necrotic Tissue Type Adherent Slough -Texture (Leslye-wound Skin Appearance) Assessed -Moisture (Leslye-wound Skin Appearance) Assessed -Color (Leslye-wound Skin Appearance) Assessed, Erythema -Temperature (Leslye-wound Skin No Abnormality Appearance) (Pt Warm) -Tenderness on Palpation (Leslye-wound Yes Skin Appearance) -Ulcer Cleansing Soap and Water -Foul Odor after Cleansing No -Anesthetic Used 5% Lidocaine Gel Right Calf (cm) 48 Right Ankle (cm) 29 Left Calf (cm) 50.5 Left Ankle (cm) 21.1 WC - Nurse 2 - General Ulcer CM Notes Start: 03/06/25 08:50 Freq: Status: Active Protocol: Activity Type Activity Date Activity User E-sign Co-sign Detail Recorded Client Recorded Date Recorded By Document 03/06/25 09:32 [id number] 03/06/25 09:39 03/06/25 09:32 Wound Center Nurse 2 #14 LLE lateral -Time 09:34 -Correct Patient Yes -Correct Side, Site, Position Yes -Correct Procedure Yes -Procedure Performed Yes -Type of Procedure Debridement -Clinical Debridement Subcutaneous -Tissue Removed Subcutaneous -Post Debridement (cm) - Length 0.6 -Post Debridement (cm) - Width 0.8 -Post Debridement (cm) - Depth 0.1 -Total Square (Post) (cm) 0.48 -Area of Debridement (cm) - Length 0.6 -Area of Debridement (cm) - Width 0.8 -Total Square (Area) (cm) 0.48 -Tunneling No -Undermining/Tunneling No -Circular Undermining No -Wound/Ulcer Outcome Not Healed -Ulcer Cleansing Rinsed/ Irrigated with Saline -Foul Odor after Cleansing No -Bioengineered Tissue No -Bleeding Controlled with Pressure -Treatment Response Procedure Tolerated Well -Offloading No -Debridement - Subq, 1st 20sq cm No #1 Left Medial Lower Extremity -Time 09:38 -Correct Patient Yes -Correct Side, Site, Position Yes -Correct Procedure Yes -Procedure Performed Yes -Type of Procedure Debridement -Clinical Debridement Subcutaneous -Tissue Removed Subcutaneous -Post Debridement (cm) - Length 2.3 -Post Debridement (cm) - Width 1.1 -Post Debridement (cm) - Depth 0.1 -Total Square (Post) (cm) 2.53 -Area of Debridement (cm) - Length 2.3 -Area of Debridement (cm) - Width 1.1 -Total Square (Area) (cm) 2.53 -Tunneling No -Undermining/Tunneling No -Circular Undermining No -Wound/Ulcer Outcome Not Healed -Ulcer Cleansing Rinsed/ Irrigated with Saline -Foul Odor after Cleansing No -Bioengineered Tissue No -Bleeding Controlled with Pressure -Treatment Response Procedure Tolerated Well -Offloading No -Debridement - Subq, 1st 20sq cm Yes Pain Scale: 0-10 Numeric Is Patient Pain Free? Yes - Nurse 3 - General Ulcer D/C NN Start: 03/06/25 08:50 Freq: Status: Active Protocol: Activity Type Activity Date Activity User E-sign Co-sign Detail Recorded Client Recorded Date Recorded By Document 03/06/25 10:29 DS [id number] 03/06/25 10:33 DS 03/06/25 10:29 Wound Care Center Nurse 3 #14 LLE lateral -Primary Dressing Applied Aquacel Extra -Aquacel Extra 0 #1 Left Medial Lower Extremity -Primary Dressing Applied Aquacel Extra -Aquacel Extra 1 BLE -Multi-Layered Wrap Application Unna Boot - Bilateral -Unna- Bilat (Qty applied) 1 Pain Scale: 0-10 Numeric Is Patient Pain Free? Yes - Visit Discharge Discharge Condition Stable Ambulatory Status Ambulatory,Cane ,Wheelchair Transportation Private Auto Additional Wound Wound debrided: Left Lower Extremity ( lateral ) Type of Debridement: Excisional debridement Anesthesia Used: 5% Lidocaine Gel Depth: Down to and including healthy tissue and in the subcutaneous layer Percentage of wound debrided: 100 Instrument Used: 5mm curette Tissue Removed: Slough and devitalized tissue Severity: Fat Layer Exposed Amount of bleeding with debridement: Mild Bleeding Controlled with: Pressure Patient tolerated procedure: Patient tolerated procedure well Charges/Coding Visit Charges Office Visits / Consults: [id number] OV L3 New 30min Procedures Integumentary [id number]: [id number] Yasmeen subq tissue 20 sq cm/< Assessment/Plan Assessment/Plan (1) Ulcer of left lower extremity with fat layer exposed: CODE(S): L97.922 - Non-pressure chronic ulcer of unspecified part of left lower leg with fat layer exposed (2) Lymphedema: CODE(S): I89.0 - Lymphedema, not elsewhere classified (3) Non-pressure chronic ulcer of left calf with fat layer exposed: CODE(S): L97.222 - Non-pressure chronic ulcer of left calf with fat layer exposed (4) Chronic venous insufficiency: CODE(S): I87.2 - Venous insufficiency (chronic) (peripheral) (5) Lipodermatosclerosis of both lower extremities: CODE(S): M79.3 - Panniculitis, unspecified (6) Type 2 diabetes mellitus without complications: CODE(S): E11.9 - Type 2 diabetes mellitus without complications PLAN: Plan Debridement done as documented above, procedure was well-tolerated. As above, transfer of care to mo. No acute or significant concerns at this time. Did not tolerate the Unna boot's well because she felt it was "too tight". Tried to get it off but was mostly in place. She is willing to continue this. Culture taken due to change in size compared to last visit. Continue Aquacel extra, gauze/foam dressing and apply Unna boot. Follow-up with Monday for nurse visit/change. Last A1c was less than 6, continue optimal diabetes control by lifestyle and dietary modifications. Currently not on medication for diabetes. Very largely sedentary and stays in a chair most of the time. Chair does not fully recline. The patient and family, in the process of getting an electric/lift chair for better reclining and hopefully better elevation. Continue adequate protein intake. She states that she has a pair of CircAid's at home once ulcer is healed for continued compression. Continue other chronic wound care measures as previously documented. Their questions were answered, and they were advised to let us know if they had any further questions or concerns. Follow-up on Monday for nurse visit and in a week with me. This note was generated with [employer] dictation software. It may contain incorrect words, spelling, and punctuation that were not noted in checking the note before signing.
[2025-03-10 09:09] VITALS: BP 121/61; PULSE 79; RESP 18; TEMP 36.4
--- NOTE | 2025-03-10 10:23 | WC ---
[facility] 03/06/25
--- NOTE | 2025-03-10 10:24 | WC ---
PHOTO-[facility] 03/06/25
[2025-03-13 09:04] VITALS: BP 147/53; PULSE 77; RESP 16; TEMP 36.3
--- NOTE | 2025-03-13 10:27 | PCM.WC.PN ---
History of Present Illness Date of Service: 03/13/25 Chief Complaint: Left lower extremity ulceration History of Wound: Ms. Soares is an 84-year-old who is a transfer of care to [place] Had previously seen podiatry/wound care here. Being seen for lower extremity ulcerations. Chronic history of venous stasis/venous ulcerations. Also follows up with vascular recently had studies done. Difficulty with compression compliance due to other chronic morbidities/factors. Also very largely sedentary sitting in a chair most of the day. Had an Unna boot on which she did not tolerate as well, she states that it felt too tight this time but had tolerated the first time it was applied 2 weeks prior. History of diabetes mellitus which is well-controlled, currently not on medication for this. She states that she feels well otherwise. Appetite is good. No chills, fever or new concerns reported. Progress of Wound: No acute concerns at this time. Tolerated Unna boots better. Some improvement noted. Cultures with very rare growth. Objective Data Objective Data Vital Signs: Vital Signs Temp Pulse Resp BP Pulse Ox O2 Del Method 97.4 F L 77 16 147/53 H 94 Room Air 03/13/25 09:04 03/13/25 09:04 03/13/25 09:04 03/13/25 09:04 03/06/25 08:50 03/13/25 09:04 Oxygen Delivery Method Room Air Lab / Micro Data Micro: Microbiology 03/06/25 09:40 Wound - Leg, Left Gram Stain - Final 03/06/25 09:40 Wound - Leg, Left Wound Culture - Final Proteus vulgaris Morganella morganii sp morgani 03/06/25 09:40 Wound - Leg, Left Anaerobic Culture - Final No anaerobic bacteria isolated. Charges/Coding Procedures Integumentary 111xxx-113xx: [id number] Yasmeen subq tissue 20 sq cm/< Physical Exam Const alert, oriented x3 and no apparent distress General Appearance: cooperative and comfortable HEENT normocephalic, head/scalp atraumatic and hearing grossly normal bilaterally Eyes EOMs intact bilaterally General Eye: normal appearance of both eyes Neck full ROM General: normal visual inspection Resp normal respiratory effort Effort and Inspection: able to speak in complete sentences Extremity General Extremity: edema Skin General Skin Exam: venous stasis Wounds: wounds noted size Size: See Clinical note, bed granulating well, margins well approximated, no odor, open and surrounding erythema Neuro oriented x3, CN's II-XII intact bilaterally, moves all extremities and no focal motor deficits Psych mental status grossly normal, thought process normal, cooperative and affect normal Debridement Note Debridement Note Wound debrided: Left lower extremity (medial) Type of Debridement: Excisional debridement Anesthesia Used: 5% Lidocaine Gel Depth: Down to and including healthy tissue and in the subcutaneous layer Percentage of wound debrided: 100 Instrument Used: 5mm curette Tissue Removed: Slough and devitalized tissue Severity: Fat Layer Exposed Amount of bleeding with debridement: Mild Bleeding Controlled with: Pressure Patient tolerated procedure: Patient tolerated procedure well Post-Debridement Measurements and Additional Note: Post-Debridement Measurements/Treatment - Nurse 1 - General Ulcer Assessment Start: 03/06/25 08:50 Freq: Status: Active Protocol: DYAN Activity Type Activity Date Activity User E-sign Co-sign Detail Recorded Client Recorded Date Recorded By Document 03/06/25 08:50 LIVE [id number] 03/06/25 09:04 Document 03/10/25 09:09 RB [id number] 03/10/25 09:12 RB Document 03/13/25 09:04 LIVE [id number] 03/13/25 09:15 LIVE 03/06/25 03/10/25 03/13/25 08:50 09:09 09:04 - Today's Visit Information Type of service Follow-up Visit Follow-up Visit Follow-up Visit (Physician/FREE LANCE MODEL (Physician/FREE LANCE MODEL (Physician/FREE LANCE MODEL ) ) ) Arrival Mode Cane,Wheelchair Wheelchair Wheelchair Transfer Assistance None Manual Manual Transfer Assist (Other) 1 Accompanied by daughter daughter Patient Identification Verified (Name & Yes Yes Yes ) Patient Requires Transmission-Based No No No Precautions Safety Precautions Fall Prevention Fall Prevention Vital Signs Temperature (97.8 F-99.1 F) 97.2 F L 97.5 F L 97.4 F L Temperature Source Temporal Temporal Temporal Pulse Rate (60-100) 83 79 77 Pulse Location Monitor Monitor Monitor Respiratory Rate (12-18) 18 18 16 Respiratory rate source Observation Observation Observation Pulse Oximetry 94 Oxygen Delivery Method Room Air Room Air Blood Pressure (90/60-120/80) 137/72 H 121/61 H 147/53 H Blood Pressure Mean (mm Hg) 93 81 84 Source Monitor Monitor Monitor Position Semi-Fowlers Semi-Fowlers Semi-Fowlers Blood Pressure Location Right Arm Left Arm Right Arm History Since Last Visit- (Skip if this is Patient's initial visit) Have you changed medications since your No No No last visit? Any new allergies or adverse reactions No No No Had a fall/change in ADL's that may No No No increase risk of falls Signs or symptoms of abuse and/or No No No neglect since last visit Have you been in the hospital since your No No No last visit? Has dressing in place as prescribed Yes Yes Yes Has compression in place as prescribed Yes Yes Yes Has offloadiing in place as prescribed N/A N/A No Experienced any changes in pain level or No No No management Left Footwear Regular Shoe Regular Shoe Regular Shoe Right Footwear Regular Shoe Regular Shoe Regular Shoe Pain Scale: 0-10 Numeric Is Patient Pain Free? Yes Yes Yes WC - Nurse 1 - General Ulcer Measurement Start: 03/06/25 08:50 Freq: Status: Active Protocol: Activity Type Activity Date Activity User E-sign Co-sign Detail Recorded Client Recorded Date Recorded By Document 03/06/25 09:04 LIVE [id number] 03/06/25 09:19 JM Document 03/10/25 09:09 RB [id number] 03/10/25 09:12 RB Document 03/13/25 09:04 [id number] 03/13/25 09:15 03/06/25 03/10/25 03/13/25 09:04 09:09 09:04 Wound Center Nurse 1 #14 LLE lateral -Combined with other wound No No -Current Size (cm) - Length 0.5 0.4 -Current Size (cm) - Width 0.8 0.4 -Current Size (cm) - Depth 0.1 0.1 -Total Square Cm 0.40 0.16 -Date of Last Picture (Recall this 03/06/25 03/13/25 field) -Photo Taken Yes Yes -Tunneling No No -Undermining/Tunneling No No -Circular Undermining No No -Exudate Amt None Present Small -Exudate Type Serosanguineous -Wound Margin Distinct, Distinct, Outline Outline Attached Attached -Granulation Amt None Present (0 Small (1-33%) %) -Granulation Quality Red -Slough/Fibrin Yes Yes -Necrosis Amt Large (67-100%) Medium (34-66%) -Necrotic Tissue Type Adherent Slough Adherent Slough -Texture (Leslye-wound Skin Appearance) Assessed Assessed -Moisture (Leslye-wound Skin Appearance) Assessed Assessed -Color (Leslye-wound Skin Appearance) Assessed Assessed -Temperature (Leslye-wound Skin No Abnormality No Abnormality Appearance) (Pt Warm) (Pt Warm) -Tenderness on Palpation (Leslye-wound Yes Skin Appearance) -Ulcer Cleansing Soap and Water Soap and Water -Foul Odor after Cleansing No No -Anesthetic Used 5% Lidocaine 5% Lidocaine Gel Gel #1 Left Medial Lower Extremity -Combined with other wound No No -Current Size (cm) - Length 2.1 2 -Current Size (cm) - Width 1.8 1 -Current Size (cm) - Depth 0.1 0.1 -Total Square Cm 3.78 2 -Date of Last Picture (Recall this 03/06/25 03/13/25 field) -Photo Taken Yes Yes -Tunneling No No -Undermining/Tunneling No No -Circular Undermining No No -Exudate Amt Medium Medium -Exudate Type Serosanguineous Serosanguineous -Wound Margin Distinct, Distinct, Outline Outline Attached Attached -Granulation Amt Small (1-33%) Medium (34-66%) -Granulation Quality [place] -Slough/Fibrin Yes -Necrosis Amt Large (67-100%) Medium (34-66%) -Necrotic Tissue Type Adherent Slough Adherent Slough -Texture (Leslye-wound Skin Appearance) Assessed Assessed -Moisture (Leslye-wound Skin Appearance) Assessed Assessed -Color (Leslye-wound Skin Appearance) Assessed, Assessed, Erythema Erythema -Temperature (Leslye-wound Skin No Abnormality No Abnormality Appearance) (Pt Warm) (Pt Warm) -Tenderness on Palpation (Leslye-wound Yes Yes Skin Appearance) -Ulcer Cleansing Soap and Water Soap and Water -Foul Odor after Cleansing No No -Anesthetic Used 5% Lidocaine 5% Lidocaine Gel Gel Lower Limb Edema Present Yes Right Calf (cm) 48 46.2 43.5 Right Ankle (cm) 29 27.4 26.6 Left Calf (cm) 50.5 46.2 50 Left Ankle (cm) 21.1 24.2 24 WC - Nurse 2 - General Ulcer CM Notes Start: 03/06/25 08:50 Freq: Status: Active Protocol: Activity Type Activity Date Activity User E-sign Co-sign Detail Recorded Client Recorded Date Recorded By Document 03/06/25 09:32 [id number] 03/06/25 09:39 Document 03/13/25 09:29 [id number] 03/13/25 09:33 03/06/25 03/13/25 09:32 09:29 Wound Center Nurse 2 #14 LLE lateral -Time 09:34 09:29 -Correct Patient Yes Yes -Correct Side, Site, Position Yes Yes -Correct Procedure Yes Yes -Procedure Performed Yes Yes -Type of Procedure Debridement Debridement -Clinical Debridement Subcutaneous Subcutaneous -Tissue Removed Subcutaneous Subcutaneous -Post Debridement (cm) - Length 0.6 0.3 -Post Debridement (cm) - Width 0.8 0.5 -Post Debridement (cm) - Depth 0.1 0.2 -Total Square (Post) (cm) 0.48 0.15 -Area of Debridement (cm) - Length 0.6 0.3 -Area of Debridement (cm) - Width 0.8 0.5 -Total Square (Area) (cm) 0.48 0.15 -Tunneling No No -Undermining/Tunneling No No -Circular Undermining No No -Wound/Ulcer Outcome Not Healed Not Healed -Ulcer Cleansing Rinsed/ Rinsed/ Irrigated with Irrigated with Saline Saline -Foul Odor after Cleansing No No -Bioengineered Tissue No No -Bleeding Controlled with Pressure Pressure -Treatment Response Procedure Procedure Tolerated Well Tolerated Well -Offloading No No -Debridement - Subq, 1st 20sq cm No Yes #1 Left Medial Lower Extremity -Time 09:38 09:29 -Correct Patient Yes Yes -Correct Side, Site, Position Yes Yes -Correct Procedure Yes Yes -Procedure Performed Yes Yes -Type of Procedure Debridement Debridement -Clinical Debridement Subcutaneous Subcutaneous -Tissue Removed Subcutaneous Subcutaneous -Post Debridement (cm) - Length 2.3 2.0 -Post Debridement (cm) - Width 1.1 1.1 -Post Debridement (cm) - Depth 0.1 0.1 -Total Square (Post) (cm) 2.53 2.20 -Area of Debridement (cm) - Length 2.3 2.0 -Area of Debridement (cm) - Width 1.1 1.1 -Total Square (Area) (cm) 2.53 2.20 -Tunneling No No -Undermining/Tunneling No No -Circular Undermining No No -Wound/Ulcer Outcome Not Healed Not Healed -Ulcer Cleansing Rinsed/ Rinsed/ Irrigated with Irrigated with Saline Saline -Foul Odor after Cleansing No No -Bioengineered Tissue No No -Bleeding Controlled with Pressure Pressure -Treatment Response Procedure Procedure Tolerated Well Tolerated Well -Offloading No No -Debridement - Subq, 1st 20sq cm Yes No Pain Scale: 0-10 Numeric Is Patient Pain Free? Yes Yes - Nurse 3 - General Ulcer D/C NN Start: 03/06/25 08:50 Freq: Status: Active Protocol: Activity Type Activity Date Activity User E-sign Co-sign Detail Recorded Client Recorded Date Recorded By Document 03/06/25 10:29 DS [id number] 03/06/25 10:33 DS Document 03/10/25 09:09 RB [id number] 03/10/25 09:12 RB Document 03/13/25 10:08 RB [id number] 03/13/25 10:19 RB 03/06/25 03/10/25 03/13/25 10:29 09:09 10:08 Wound Care Center Nurse 3 #14 LLE lateral -Primary Dressing Applied Aquacel Extra Aquacel Extra -Other Dressing aquacel extra bacitracin -Aquacel Extra 0 1 #1 Left Medial Lower Extremity -Primary Dressing Applied Aquacel Extra -Other Dressing aquacel extra aquacel extra/ bactracin -Aquacel Extra 1 BLE -Multi-Layered Wrap Application Unna Boot - Unna Boot - Unna Boot - Bilateral Bilateral Bilateral -Unna- Bilat (Qty applied) 1 1 1 Treatment Response Procedure Procedure Tolerated Well Tolerated Well Pain Scale: 0-10 Numeric Is Patient Pain Free? Yes Yes Yes - Visit Discharge Discharge Condition Stable Stable Stable Ambulatory Status Ambulatory,Cane Wheelchair Wheelchair ,Wheelchair Transportation Private Auto Private Auto Private Auto Accompanied by daughter Medication Reconcilliation completed & No No provided to patient/care provider Clinical Summary of Care Provided Yes Yes Additional Wound Wound debrided: Left lower extremity (lateral) Type of Debridement: Excisional debridement Anesthesia Used: 5% Lidocaine Gel Depth: Down to and including healthy tissue and in the subcutaneous layer Percentage of wound debrided: 100 Instrument Used: 5mm curette Tissue Removed: Slough and devitalized tissue Severity: Fat Layer Exposed Amount of bleeding with debridement: Mild Bleeding Controlled with: Pressure Patient tolerated procedure: Patient tolerated procedure well Assessment/Plan Assessment/Plan (1) Ulcer of left lower extremity with fat layer exposed: CODE(S): L97.922 - Non-pressure chronic ulcer of unspecified part of left lower leg with fat layer exposed (2) Lymphedema: CODE(S): I89.0 - Lymphedema, not elsewhere classified (3) Non-pressure chronic ulcer of left calf with fat layer exposed: CODE(S): L97.222 - Non-pressure chronic ulcer of left calf with fat layer exposed (4) Chronic venous insufficiency: CODE(S): I87.2 - Venous insufficiency (chronic) (peripheral) (5) Lipodermatosclerosis of both lower extremities: CODE(S): M79.3 - Panniculitis, unspecified (6) Type 2 diabetes mellitus without complications: CODE(S): E11.9 - Type 2 diabetes mellitus without complications PLAN: Plan Debridement done as documented above, procedure was well-tolerated. No new concerns at this time. Some improvement noted since her last visit. Cultures reviewed, very rare growth. No anaerobic growth. Apply thin layer of bacitracin, continue Aquacel extra, gauze/foam dressing and apply Unna boot. Follow-up on Monday for nurse visit/change. Last A1c was less than 6, continue optimal diabetes control by lifestyle and dietary modifications. Currently not on medication for diabetes. Very largely sedentary and stays in a chair most of the time. Exercise as tolerated and leg elevation. Continue adequate protein intake. She states that she has a pair of CircAid's at home once ulcer is healed for continued compression. Continue other chronic wound care measures as previously documented. Their questions were answered, and they were advised to let us know if they had any further questions or concerns. Follow-up on Monday for nurse visit and in a week for a courtesy visit. This note was generated with [employer] dictation software. It may contain incorrect words, spelling, and punctuation that were not noted in checking the note before signing.
--- NOTE | 2025-03-14 10:22 | WC ---
PHOTO-LEFT [facility] 03/13/25
--- NOTE | 2025-03-14 10:24 | WC ---
PHOTO-LEFT [facility] LE 03/13/25
[2025-03-17 08:47] VITALS: BP 116/96; PULSE 78; RESP 18; TEMP 36.1
[2025-03-20 09:08] VITALS: BP 149/69; PULSE 82; RESP 18; TEMP 36.5
--- NOTE | 2025-03-21 10:28 | WC ---
PHOTO-LEFT MED LEG 03/20/25
--- NOTE | 2025-03-21 10:29 | WC ---
PHOTO-LEFT LATERAL LEG 03/20/25
[2025-03-24 09:29] VITALS: BP 155/70; PULSE 79; RESP 16; TEMP 36.3
--- NOTE | 2025-03-24 12:00 | PCM.WC.HP ---
History of Present Illness Date of Service: 03/20/25 Chief Complaint: Left lower extremity ulceration History of Wound: The patient is seen as a courtesy visit for Dr. Finnegan. The patient's history below is as previously documented: Ms. Soares is an 84-year-old who is a transfer of care to [place]. Had previously seen podiatry/wound care here. Being seen for lower extremity ulcerations. Chronic history of venous stasis/venous ulcerations. Also follows up with vascular recently had studies done. Difficulty with compression compliance due to other chronic morbidities/factors. Also very largely sedentary sitting in a chair most of the day. Had an Unna boot on which she did not tolerate as well, she states that it felt too tight this time but had tolerated the first time it was applied 2 weeks prior. History of diabetes mellitus which is well-controlled, currently not on medication for this. She states that she feels well otherwise. Appetite is good. No chills, fever or new concerns reported." The patient has a history of bilateral lower extremity deep vein thrombosis, and is noted to be on systemic anticoagulation with Xarelto. [facility] Medical History Ulcer of left lower extremity with fat layer exposed Non-pressure chronic ulcer of left calf with fat layer exposed Dysuria Acute blood loss anemia Adverse drug reaction History of breast cancer Mass of left axilla Encounter for education Regional lymph node metastasis present Glaucoma Loss of hearing Wears glasses Cancer Pressure ulcer Fatty liver History of IBS Leg cramps Cellulitis Venous ulcer of left leg Venous ulcer of right leg Chronic ulcer of left lower extremity Hiatal hernia Venous hypertension, chronic, with inflammation Chronic venous insufficiency Leg wound, left Nodular goiter Wears dentures Post-menopausal Diabetes Ambulates with cane Arthritis Back pain Loss of consciousness History of hiatal hernia Gastric reflux Shortness of breath on exertion History of edema History of echocardiogram History of stress test Hypertension Cardiology follow-up encounter History of bleeding ulcers Choledocholithiasis Peripheral arterial disease Osteoporosis GI bleed Non-smoker DVT (deep venous thrombosis) Abdominal pain Pure hypercholesterolemia Essential hypertension Pressure ulcer of right buttock, stage 3 Decubitus ulcer of left buttock, stage 2 Venous stasis ulcer Hiatal hernia Edema of both legs Osteoarthritis GERD (gastroesophageal reflux disease) Abnormal exercise myocardial perfusion study Palpitations 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 Leg swelling Hyperpigmentation of skin Lipodermatosclerosis Chronic venous hypertension (idiopathic) with inflammation of bilateral lower extremity Localized edema Generalized weakness Hypertension Chronic venous hypertension (idiopathic) with ulcer of left lower extremity Chronic venous stasis dermatitis Non-pressure chronic ulcer of left ankle with fat layer exposed Cellulitis of left leg Failure to thrive Positional vertigo Ulcer Obesity Hx of venous thrombosis and embolism history of cellulitis of leg Home Medications Medication Instructions Recorded Last Taken Type potassium chloride 10 mEq 10 meq PO PRN PRN HYPOKALEMIA 10/11/19 12/18/23 History capsule,extended release meclizine 25 mg tablet 25 mg PO DAILY PRN Vertigo 08/12/21 Unknown History latanoprost 0.005 % eye drops 1 drp ophthalmic (eye) QPM eye 05/24/23 10/27/24 History drops torsemide 20 mg tablet 20 mg PO DAILY PRN PRN Edema 10/27/23 Unknown History irbesartan 75 mg tablet 75 mg PO DAILY blood pressure 01/29/24 10/27/24 History hydrocortisone 2.5 % topical cream 1 applic topical DAILY PRN itching 10/28/24 10/26/24 History pantoprazole 40 mg tablet,delayed 40 mg PO BID 90 days #180 tabs 10/31/24 Unknown Rx release (Protonix) sucralfate 1 gram tablet 1 g PO BID 6 weeks #84 tabs 10/31/24 Unknown Rx Held on 02/20/25. Instructions: Order Completed anastrozole 1 mg tablet 1 mg PO DAILY #90 tabs 12/23/24 Unknown Rx cefpodoxime 100 mg tablet 100 mg PO BID #14 tabs 01/21/25 Unknown Rx famotidine 20 mg tablet 20 mg PO BID 02/20/25 Unknown History fluorouracil 5 % topical cream 1 applic topical BID 02/20/25 Unknown History hydroxyzine HCl 10 mg tablet 10 mg PO TID itch 02/20/25 Unknown History rivaroxaban 10 mg tablet (Xarelto) 10 mg PO DAILY 02/20/25 Unknown History ursodiol 250 mg tablet 250 mg PO DAILY 90 days #90 tabs 03/03/25 Unknown Rx ascorbic acid (vitamin C) 500 mg 500 mg PO QDAY 03/24/25 Unknown History tablet ferrous sulfate 325 mg (65 mg 325 mg PO QDAY 03/24/25 Unknown History iron) tablet Allergy/AdvReac Type Severity Reaction Status Date / Time neomycin sulfate (From Allergy Severe Itching Verified 03/24/25 11:04 Neosporin ([id number])) benzethonium chloride (From Allergy Unknown unknown Verified 03/24/25 11:04 Lanacane Sherwood) benzocaine (From Lanacane Allergy Unknown unknown Verified 03/24/25 11:04 Sherwood) levofloxacin (From Levaquin) Allergy Unknown Rash Verified 03/24/25 11:04 cefdinir Allergy Other Verified 03/24/25 11:04 ezetimibe (From Zetia) Allergy Itching Verified 03/24/25 11:04 neomycin (Neomycin) Allergy "gets in Verified 03/24/25 11:04 blood stream and pass out" polymyxin B (Polymyxin B) Allergy Unknown Verified 03/24/25 11:04 Sulfa (Sulfonamide Allergy Unknown Verified 03/24/25 11:04 Antibiotics) tetracycline (Tetracycline) Allergy Itching Verified 03/24/25 11:04 adhesive tape AdvReac Severe skin Verified 03/24/25 11:04 pulling lisinopril AdvReac Intermediate cough Verified 03/24/25 11:04 cephalexin AdvReac Mild Other Verified 03/24/25 11:04 atorvastatin calcium (From AdvReac Pain in Verified 03/24/25 11:04 Lipitor) joints, muscle damage Family History Mother CAD (coronary artery disease) Myocardial infarction Son Hypertension Brother AAA (abdominal aortic aneurysm) Father Diabetes Heart disease CAD (coronary artery disease) Liver disease Other Arthritis Bleeding disorder Blood clot in vein Bowel disease Cancer H/O ulcer disease Osteoporosis Severe allergy Surgical History Hx of breast surgery History of foot surgery History of ERCP History of cholecystectomy History of hernia repair History of left heart catheterization (06/14/13) H/O dilation and curettage Lipoma History of tubal ligation History of cataract surgery Rectal fistula Social History household members: none housing: house current occupational status: employed Smoking Status: Never smoker alcohol intake: never substance use type: does not use caffeine: Yes Type: coffee Number of servings: 3 what type of physical activity do you participate in: none seatbelt use: always do you feel safe at home: Yes Vital Signs Vital Signs Vital Signs: 03/24/25 09:29 Temperature 97.4 F L Temperature Source Temporal Pulse Rate 79 Respiratory Rate 16 Blood Pressure 155/70 H Blood Pressure Mean 98 Blood Pressure Source Monitor Blood Pressure Position Sitting Blood Pressure Location Right Forearm Physical Exam Narrative ECOG 2. Const alert, oriented x3 and no apparent distress General Appearance: cooperative, comfortable, ill appearing Positive for chronically and frail Orientation / Consciousness: awake Nutritional Appearance: obese HEENT normocephalic and head/scalp atraumatic Head and Scalp: normal to inspection Face and Sinus: normal facial exam Nose: external nose normal General Ear: hearing grossly impaired External Ear: external ears normal Teeth and Gingiva: poor dentition Eyes General Eye: normal appearance of both eyes Neck no JVD Resp normal respiratory effort, normal air movement, no retractions and no use of accessory muscles Effort and Inspection: able to speak in complete sentences Cardio Jugular Venous Distention: Negative for JVD Extremity Extremity Narrative: Lower extremities with gross edema and evidence for chronic venous insufficiency and prior recurrent episodes of lower extremity cellulitis General Extremity: edema bilateral lower extremity Details: severe; Negative for clubbing or cyanosis Skin Wound Narrative: An ulceration is noted on both the medial and lateral portions of the distal left lower extremity. The ulcerations are full-thickness in nature, extending through all layers of the dermis and into the subcutaneous tissues. A small amount of slough and devitalized tissue is present at each site. There is no sign of infection or cellulitis. Dimensions are documented elsewhere. Ulcer margins are well beveled. Mild swelling and edema are noted in the lower extremities. Lipodermatosclerosis and hyperpigmentation are noted in the gaiter areas bilaterally, more pronounced in the left lower extremity. Neuro oriented x3, CN's II-XII intact bilaterally, moves all extremities and no focal motor deficits Sensorium / Orientation: awake and alert Speech: speech normal Psych mental status grossly normal Activity / Motor Behavior: appropriate eye contact Speech: normal speech Mood & Affect: euthymic mood Debridement Note Debridement Note Wound debrided: Left lower extremity (medial and lateral) ulcerations Laterality: Left Type of Debridement: Excisional debridement Anesthesia Used: 5% Lidocaine Gel Depth: Down to and including healthy tissue and in the subcutaneous layer Percentage of wound debrided: 100 Instrument Used: 5mm curette Tissue Removed: Slough and devitalized tissue Severity: Fat Layer Exposed Amount of bleeding with debridement: Mild Bleeding Controlled with: Compression and gauze Patient tolerated procedure: Patient tolerated procedure well Post-Debridement Measurements and Additional Note: Post-Debridement Measurements/Treatment WC - Nurse 1 - General Ulcer Assessment Start: 03/06/25 08:50 Freq: Status: Active Protocol: LOWEXT Activity Type Activity Date Activity User E-sign Co-sign Detail Recorded Client Recorded Date Recorded By Document 03/06/25 08:50 JM [id number] 03/06/25 09:04 JM Document 03/10/25 09:09 RB [id number] 03/10/25 09:12 RB Document 03/13/25 09:04 JM [id number] 03/13/25 09:15 JM Document 03/17/25 08:47 MT [id number] 03/17/25 08:50 MT Document 03/20/25 09:08 RB [id number] 03/20/25 09:17 RB Document 03/24/25 09:29 TS [id number] 03/24/25 09:35 TS 03/06/25 03/10/25 03/13/25 08:50 09:09 09:04 - Today's Visit Information Type of service Follow-up Visit Follow-up Visit Follow-up Visit (Physician/ENTRY LEVEL CIVIL ENGINEER (Physician/ENTRY LEVEL CIVIL ENGINEER (Physician/ENTRY LEVEL CIVIL ENGINEER ) ) ) Arrival Mode Cane,Wheelchair Wheelchair Wheelchair Transfer Assistance None Manual Manual Transfer Assist (Other) 1 Accompanied by daughter daughter Patient Identification Verified (Name & Yes Yes Yes ) Patient Requires Transmission-Based No No No Precautions Safety Precautions Fall Prevention Fall Prevention Vital Signs Temperature (97.8 F-99.1 F) 97.2 F L 97.5 F L 97.4 F L Temperature Source Temporal Temporal Temporal Pulse Rate (60-100) 83 79 77 Pulse Location Monitor Monitor Monitor Respiratory Rate (12-18) 18 18 16 Respiratory rate source Observation Observation Observation Pulse Oximetry 94 Oxygen Delivery Method Room Air Room Air Blood Pressure (90/60-120/80) 137/72 H 121/61 H 147/53 H Blood Pressure Mean 93 81 84 Source Monitor Monitor Monitor Position Semi-Fowlers Semi-Fowlers Semi-Fowlers Blood Pressure Location Right Arm Left Arm Right Arm History Since Last Visit- (Skip if this is Patient's initial visit) Have you changed medications since your No No No last visit? Any new allergies or adverse reactions No No No Had a fall/change in ADL's that may No No No increase risk of falls Signs or symptoms of abuse and/or No No No neglect since last visit Have you been in the hospital since your No No No last visit? Has dressing in place as prescribed Yes Yes Yes Has compression in place as prescribed Yes Yes Yes Has offloadiing in place as prescribed N/A N/A No Experienced any changes in pain level or No No No management Left Footwear Regular Shoe Regular Shoe Regular Shoe Right Footwear Regular Shoe Regular Shoe Regular Shoe Pain Scale: 0-10 Numeric Is Patient Pain Free? Yes Yes Yes 03/17/25 03/20/25 03/24/25 08:47 09:08 09:29 - Today's Visit Information Type of service Nurse-only Follow-up Visit Nurse-only Visit (Physician/ENTRY LEVEL CIVIL ENGINEER Visit ) Arrival Mode Ambulatory, Wheelchair Cane,Wheelchair Wheelchair Transfer Assistance Manual Transfer Assist (Other) Accompanied by daughter daughter Patient Identification Verified (Name & Yes Yes Yes ) Patient Requires Transmission-Based No No Precautions Safety Precautions Fall Prevention Vital Signs Temperature (97.8 F-99.1 F) 97 F L 97.7 F L 97.4 F L Temperature Source Temporal Temporal Temporal Pulse Rate (60-100) 78 82 79 Pulse Location Monitor Monitor Respiratory Rate (12-18) 18 18 16 Respiratory rate source Monitor Observation Observation Pulse Oximetry Oxygen Delivery Method Room Air Blood Pressure (90/60-120/80) 116/96 H 149/69 H 155/70 H Blood Pressure Mean 102 95 98 Source Monitor Monitor Monitor Position Supine Sitting Sitting Blood Pressure Location Right Arm Left Arm Right Forearm History Since Last Visit- (Skip if this is Patient's initial visit) Have you changed medications since your No last visit? Any new allergies or adverse reactions No Had a fall/change in ADL's that may No increase risk of falls Signs or symptoms of abuse and/or No neglect since last visit Have you been in the hospital since your No last visit? Has dressing in place as prescribed Yes Yes Has compression in place as prescribed Yes Yes Has offloadiing in place as prescribed Yes N/A Experienced any changes in pain level or Yes No management Left Footwear Regular Shoe Regular Shoe Regular Shoe Right Footwear Regular Shoe Regular Shoe Regular Shoe Pain Scale: 0-10 Numeric Is Patient Pain Free? Yes Yes Yes WC - Nurse 1 - General Ulcer Measurement Start: 03/06/25 08:50 Freq: Status: Active Protocol: Activity Type Activity Date Activity User E-sign Co-sign Detail Recorded Client Recorded Date Recorded By Document 03/06/25 09:04 JM [id number] 03/06/25 09:19 JM Document 03/10/25 09:09 RB [id number] 03/10/25 09:12 RB Document 03/13/25 09:04 JM [id number] 03/13/25 09:15 JM Document 03/20/25 09:08 RB [id number] 03/20/25 09:17 RB Document 03/24/25 09:29 TS [id number] 03/24/25 09:35 TS 03/06/25 03/10/25 03/13/25 09:04 09:09 09:04 Wound Center Nurse 1 #14 LLE lateral -Combined with other wound No No -Current Size (cm) - Length 0.5 0.4 -Current Size (cm) - Width 0.8 0.4 -Current Size (cm) - Depth 0.1 0.1 -Total Square Cm 0.40 0.16 -Date of Last Picture (Recall this 03/06/25 03/13/25 field) -Photo Taken Yes Yes -Tunneling No No -Undermining/Tunneling No No -Circular Undermining No No -Exudate Amt None Present Small -Exudate Type Serosanguineous -Wound Margin Distinct, Distinct, Outline Outline Attached Attached -Granulation Amt None Present (0 Small (1-33%) %) -Granulation Quality Red -Slough/Fibrin Yes Yes -Necrosis Amt Large (67-100%) Medium (34-66%) -Necrotic Tissue Type Adherent Slough Adherent Slough -Structure Exposed -Texture (Leslye-wound Skin Appearance) Assessed Assessed -Moisture (Leslye-wound Skin Appearance) Assessed Assessed -Color (Leslye-wound Skin Appearance) Assessed Assessed -Temperature (Leslye-wound Skin No Abnormality No Abnormality Appearance) (Pt Warm) (Pt Warm) -Tenderness on Palpation (Leslye-wound Yes Skin Appearance) -Ulcer Cleansing Soap and Water Soap and Water -Foul Odor after Cleansing No No -Anesthetic Used 5% Lidocaine 5% Lidocaine Gel Gel #1 Left Medial Lower Extremity -Combined with other wound No No -Current Size (cm) - Length 2.1 2 -Current Size (cm) - Width 1.8 1 -Current Size (cm) - Depth 0.1 0.1 -Total Square Cm 3.78 2 -Date of Last Picture (Recall this 03/06/25 03/13/25 field) -Photo Taken Yes Yes -Tunneling No No -Undermining/Tunneling No No -Circular Undermining No No -Exudate Amt Medium Medium -Exudate Type Serosanguineous Serosanguineous -Wound Margin Distinct, Distinct, Outline Outline Attached Attached -Granulation Amt Small (1-33%) Medium (34-66%) -Granulation Quality Norlina Norlina -Slough/Fibrin Yes -Necrosis Amt Large (67-100%) Medium (34-66%) -Necrotic Tissue Type Adherent Slough Adherent Slough -Structure Exposed -Texture (Leslye-wound Skin Appearance) Assessed Assessed -Moisture (Leslye-wound Skin Appearance) Assessed Assessed -Color (Leslye-wound Skin Appearance) Assessed, Assessed, Erythema Erythema -Temperature (Leslye-wound Skin No Abnormality No Abnormality Appearance) (Pt Warm) (Pt Warm) -Tenderness on Palpation (Leslye-wound Yes Yes Skin Appearance) -Ulcer Cleansing Soap and Water Soap and Water -Foul Odor after Cleansing No No -Anesthetic Used 5% Lidocaine 5% Lidocaine Gel Gel Lower Limb Edema Present Yes Right Calf (cm) 48 46.2 43.5 Right Ankle (cm) 29 27.4 26.6 Left Calf (cm) 50.5 46.2 50 Left Ankle (cm) 21.1 24.2 24 03/20/25 03/24/25 09:08 09:29 Wound Center Nurse 1 #14 LLE lateral -Combined with other wound No -Current Size (cm) - Length 0.3 -Current Size (cm) - Width 0.4 -Current Size (cm) - Depth 0.1 -Total Square Cm 0.12 -Date of Last Picture (Recall this field) -Photo Taken Yes -Tunneling No -Undermining/Tunneling No -Circular Undermining No -Exudate Amt Medium -Exudate Type Serosanguineous -Wound Margin Distinct, Outline Attached -Granulation Amt Medium (34-66%) -Granulation Quality Norlina -Slough/Fibrin Yes -Necrosis Amt Small (1-33%) -Necrotic Tissue Type Adherent Slough -Structure Exposed N/A -Texture (Leslye-wound Skin Appearance) Assessed -Moisture (Leslye-wound Skin Appearance) Assessed -Color (Leslye-wound Skin Appearance) Hemosiderin Staining -Temperature (Leslye-wound Skin No Abnormality Appearance) (Pt Warm) -Tenderness on Palpation (Leslye-wound No Skin Appearance) -Ulcer Cleansing Wound Cleanser -Foul Odor after Cleansing No -Anesthetic Used 5% Lidocaine Gel #1 Left Medial Lower Extremity -Combined with other wound No -Current Size (cm) - Length 2.4 -Current Size (cm) - Width 1.4 -Current Size (cm) - Depth 0.1 -Total Square Cm 3.36 -Date of Last Picture (Recall this field) -Photo Taken Yes -Tunneling No -Undermining/Tunneling No -Circular Undermining No -Exudate Amt Medium -Exudate Type Serosanguineous -Wound Margin Distinct, Outline Attached -Granulation Amt Medium (34-66%) -Granulation Quality Norlina -Slough/Fibrin Yes -Necrosis Amt Medium (34-66%) -Necrotic Tissue Type Adherent Slough -Structure Exposed N/A -Texture (Leslye-wound Skin Appearance) Assessed -Moisture (Leslye-wound Skin Appearance) Assessed -Color (Leslye-wound Skin Appearance) Hemosiderin Staining -Temperature (Leslye-wound Skin No Abnormality Appearance) (Pt Warm) -Tenderness on Palpation (Leslye-wound No Skin Appearance) -Ulcer Cleansing Wound Cleanser -Foul Odor after Cleansing No -Anesthetic Used 5% Lidocaine Gel Lower Limb Edema Present Yes Yes Right Calf (cm) 40.5 37.2 Right Ankle (cm) 26.5 26.4 Left Calf (cm) 47.6 40.7 Left Ankle (cm) 27.4 23.5 WC - Nurse 2 - General Ulcer CM Notes Start: 03/06/25 08:50 Freq: Status: Active Protocol: Activity Type Activity Date Activity User E-sign Co-sign Detail Recorded Client Recorded Date Recorded By Document 03/06/25 09:32 [id number] 03/06/25 09:39 GM Document 03/13/25 09:29 [id number] 03/13/25 09:33 Document 03/20/25 09:26 [id number] 03/20/25 09:34 03/06/25 03/13/25 03/20/25 09:32 09:29 09:26 Wound Center Nurse 2 #14 SHELIA lateral -Time : 09:29 09:26 -Correct Patient Yes Yes Yes -Correct Side, Site, Position Yes Yes Yes -Correct Procedure Yes Yes Yes -Procedure Performed Yes Yes Yes -Type of Procedure Debridement Debridement Debridement -Clinical Debridement Subcutaneous Subcutaneous Subcutaneous -Tissue Removed Subcutaneous Subcutaneous Subcutaneous -Post Debridement (cm) - Length 0.6 0.3 0.3 -Post Debridement (cm) - Width 0.8 0.5 0.3 -Post Debridement (cm) - Depth 0.1 0.2 0.1 -Total Square (Post) (cm) 0.48 0.15 0.09 -Area of Debridement (cm) - Length 0.6 0.3 0.3 -Area of Debridement (cm) - Width 0.8 0.5 0.3 -Total Square (Area) (cm) 0.48 0.15 0.09 -Tunneling No No No -Undermining/Tunneling No No No -Circular Undermining No No No -Wound/Ulcer Outcome Not Healed Not Healed Not Healed -Ulcer Cleansing Rinsed/ Rinsed/ Rinsed/ Irrigated with Irrigated with Irrigated with Saline Saline Saline -Foul Odor after Cleansing No No No -Bioengineered Tissue No No No -Bleeding Controlled with Pressure Pressure Pressure -Treatment Response Procedure Procedure Procedure Tolerated Well Tolerated Well Tolerated Well -Offloading No No No -Debridement - Subq, 1st 20sq cm No Yes No #1 Left Medial Lower Extremity -Time 09: 09:29 09:27 -Correct Patient Yes Yes Yes -Correct Side, Site, Position Yes Yes Yes -Correct Procedure Yes Yes Yes -Procedure Performed Yes Yes Yes -Type of Procedure Debridement Debridement Debridement -Clinical Debridement Subcutaneous Subcutaneous Subcutaneous -Tissue Removed Subcutaneous Subcutaneous Subcutaneous -Post Debridement (cm) - Length 2.3 2.0 2.0 -Post Debridement (cm) - Width 1.1 1.1 1.7 -Post Debridement (cm) - Depth 0.1 0.1 0.4 -Total Square (Post) (cm) 2.53 2.20 3.40 -Area of Debridement (cm) - Length 2.3 2.0 2.0 -Area of Debridement (cm) - Width 1.1 1.1 1.7 -Total Square (Area) (cm) 2.53 2.20 3.40 -Tunneling No No No -Undermining/Tunneling No No No -Circular Undermining No No No -Wound/Ulcer Outcome Not Healed Not Healed Not Healed -Ulcer Cleansing Rinsed/ Rinsed/ Rinsed/ Irrigated with Irrigated with Irrigated with Saline Saline Saline -Foul Odor after Cleansing No No No -Bioengineered Tissue No No No -Bleeding Controlled with Pressure Pressure Pressure -Treatment Response Procedure Procedure Procedure Tolerated Well Tolerated Well Tolerated Well -Offloading No No No -Total Non-Weight Bearing to Left Lower Extremity -Debridement - Subq, 1st 20sq cm Yes No Yes Pain Scale: 0-10 Numeric Is Patient Pain Free? Yes Yes Yes WC - Nurse 3 - General Ulcer D/C NN Start: 03/06/25 08:50 Freq: Status: Active Protocol: Activity Type Activity Date Activity User E-sign Co-sign Detail Recorded Client Recorded Date Recorded By Document 03/06/25 10:29 DS [id number] 03/06/25 10:33 DS Document 03/10/25 09:09 RB [id number] 03/10/25 09:12 RB Document 03/13/25 10:08 RB [id number] 03/13/25 10:19 RB Document 03/17/25 08:47 MT [id number] 03/17/25 08:50 MT Document 03/20/25 09:53 GM [id number] 03/20/25 09:54 GM Document 03/24/25 09:29 TS [id number] 03/24/25 09:35 TS 03/06/25 03/10/25 03/13/25 10:29 09:09 10:08 Wound Care Center Nurse 3 #14 LLE lateral -Ulcer Cleansing -Foul Odor after Cleansing -Primary Dressing Applied Aquacel Extra Aquacel Extra -Other Dressing aquacel extra bacitracin -Primary Dressing Covered/Secured with -Patient Supplied Dressing -Aquacel Extra 0 1 -Wound Comment(s) #1 Left Medial Lower Extremity -Ulcer Cleansing -Foul Odor after Cleansing -Primary Dressing Applied Aquacel Extra -Other Dressing aquacel extra aquacel extra/ bactracin -Primary Dressing Covered/Secured with -Patient Supplied Dressing -Aquacel Extra 1 LLE -Multi-Layered Wrap Application -Unna- Left (Qty applied) RLE -Multi-Layered Wrap Application -Unna- Right (Qty applied) BLE -Lotion applied to leg before compression wrap -Multi-Layered Wrap Application Unna Boot - Unna Boot - Unna Boot - Bilateral Bilateral Bilateral -Unna- Bilat (Qty applied) 1 1 1 Treatment Response Procedure Procedure Tolerated Well Tolerated Well Pain Scale: 0-10 Numeric Is Patient Pain Free? Yes Yes Yes WC - Visit Discharge Discharge Condition Stable Stable Stable Ambulatory Status Ambulatory,Cane Wheelchair Wheelchair ,Wheelchair Transportation Private Auto Private Auto Private Auto Accompanied by daughter Medication Reconcilliation completed & No No provided to patient/care provider Clinical Summary of Care Provided Yes Yes 03/17/25 03/20/25 03/24/25 08:47 09:53 09:29 Wound Care Center Nurse 3 #14 LLE lateral -Ulcer Cleansing Not Cleansed Soap and Water -Foul Odor after Cleansing No -Primary Dressing Applied Aquacel Extra -Other Dressing aquacel and bacitracin bacitran -Primary Dressing Covered/Secured with Dry Gauze & Dry Gauze Roll Gauze, Secured with Tape -Patient Supplied Dressing Yes -Aquacel Extra 0 -Wound Comment(s) nurse visit, pt brought own aquacel extra #1 Left Medial Lower Extremity -Ulcer Cleansing Not Cleansed Soap and Water -Foul Odor after Cleansing No -Primary Dressing Applied Aquacel Extra -Other Dressing bacitracin and bacitracin aquacel extra from home -Primary Dressing Covered/Secured with Dry Gauze -Patient Supplied Dressing Yes -Aquacel Extra 0 LLE -Multi-Layered Wrap Application Unna Boot - Left -Unna- Left (Qty applied) 1 RLE -Multi-Layered Wrap Application Unna Boot - Right -Unna- Right (Qty applied) 1 BLE -Lotion applied to leg before No compression wrap -Multi-Layered Wrap Application Unna Boot - Unna Boot - Bilateral Bilateral -Unna- Bilat (Qty applied) 1 1 Treatment Response Pain Scale: 0-10 Numeric Is Patient Pain Free? Yes Yes Yes WC - Visit Discharge Discharge Condition Stable Stable Stable Ambulatory Status Ambulatory, Ambulatory, Ambulatory,Cane Wheelchair Walker ,Wheelchair Transportation Private Auto Private Auto Private Auto Accompanied by daughter Medication Reconcilliation completed & No No provided to patient/care provider Clinical Summary of Care Provided Yes No Charges/Coding Multi Select Codes Visit Charges Office Visit/Consults: 69830 OV L4 Est 30min Integumentary Integumentary CPT Codes: 29049 Yasmeen subq tissue 20 sq cm/< Assessment/Plan Assessment/Plan (1) Ulcer of left lower extremity with fat layer exposed: CODE(S): L97.922 - Non-pressure chronic ulcer of unspecified part of left lower leg with fat layer exposed (2) Lymphedema: CODE(S): I89.0 - Lymphedema, not elsewhere classified (3) Non-pressure chronic ulcer of left calf with fat layer exposed: CODE(S): L97.222 - Non-pressure chronic ulcer of left calf with fat layer exposed (4) Chronic venous insufficiency: CODE(S): I87.2 - Venous insufficiency (chronic) (peripheral) (5) Lipodermatosclerosis of both lower extremities: CODE(S): M79.3 - Panniculitis, unspecified (6) Type 2 diabetes mellitus without complications: CODE(S): E11.9 - Type 2 diabetes mellitus without complications PLAN: Plan Debridement done as documented above, procedure was well-tolerated. We are to continue the measures which have been previously implemented - apply thin layer of bacitracin, continue Aquacel extra, gauze/foam dressing and apply Unna boot. Dressing changes and Unna compression wraps will be changed twice weekly. We have discussed the measures appropriate to the management of the patient's chronic venous disease. She has been encouraged to sleep on a flat mattress at night, rather than in a recliner, which has been her habit. Prolonged idle sitting has been discouraged. Activity/ambulation has been encouraged. The patient has been encouraged to continue optimal diabetes control by lifestyle and dietary modifications. Currently not on medication for diabetes. She is to continue adequate protein intake. She states that she has a pair of CircAid's at home once ulcer is healed for continued compression. The patient is to follow-up in 1 week for reevaluation by her [facility], Dr. Finnegan. Total time: 35 minutes
[2025-03-27 09:06] VITALS: BP 129/63; PULSE 84; RESP 18
--- NOTE | 2025-03-27 09:36 | WC ---
PHOTO: LEFT MEDIAL LOWER 03/27/25
--- NOTE | 2025-03-27 09:37 | WC ---
PHOTO: SHELIA LATERAL 03/27/25
--- NOTE | 2025-03-27 10:45 | PCM.WC.PN ---
History of Present Illness Date of Service: 03/27/25 Chief Complaint: Left lower extremity ulceration History of Wound: Ms. Soares is an 84-year-old who [place]. Had previously seen podiatry/wound care here. Being seen for lower extremity ulcerations. Chronic history of venous stasis/venous ulcerations. Also follows up with vascular recently had studies done. Difficulty with compression compliance due to other chronic morbidities/factors. Also very largely sedentary sitting in a chair most of the day. Had an Unna boot on which she did not tolerate as well, she states that it felt too tight this time but had tolerated the first time it was applied 2 weeks prior. History of diabetes mellitus which is well-controlled, currently not on medication for this. She states that she feels well otherwise. Appetite is good. No chills, fever or new concerns reported. Progress of Wound: No acute concerns at this time. Had some concerns with Unna boot over the last week. No significant change in ulcer. Feels well otherwise. Objective Data Objective Data Vital Signs: Vital Signs Temp Pulse Resp BP Pulse Ox O2 Del Method 97.4 F L 84 18 129/63 H 94 Room Air 03/24/25 09:29 03/27/25 09:06 03/27/25 09:06 03/27/25 09:06 03/06/25 08:50 03/27/25 09:06 Oxygen Delivery Method Room Air Lab / Micro Data Micro: Microbiology 03/06/25 09:40 Wound - Leg, Left Gram Stain - Final 03/06/25 09:40 Wound - Leg, Left Wound Culture - Final Proteus vulgaris Morganella morganii sp morgani 03/06/25 09:40 Wound - Leg, Left Anaerobic Culture - Final No anaerobic bacteria isolated. Charges/Coding Procedures Integumentary [id number]: [id number] Yasmeen subq tissue 20 sq cm/< Debridement Note Debridement Note Wound debrided: Left lower extremity (medial) Type of Debridement: Excisional debridement Anesthesia Used: 5% Lidocaine Gel and Cetacaine Depth: Down to and including healthy tissue Percentage of wound debrided: 100 Instrument Used: 5mm curette Tissue Removed: Slough and devitalized tissue Severity: Fat Layer Exposed Amount of bleeding with debridement: Mild Bleeding Controlled with: Pressure Patient tolerated procedure: Patient tolerated procedure well Post-Debridement Measurements and Additional Note: Post-Debridement Measurements/Treatment - Nurse 1 - General Ulcer Assessment Start: 03/06/25 08:50 Freq: Status: Active Protocol: DYAN Activity Type Activity Date Activity User E-sign Co-sign Detail Recorded Client Recorded Date Recorded By Document 03/06/25 08:50 JM [id number] 03/06/25 09:04 JM Document 03/10/25 09:09 RB [id number] 03/10/25 09:12 RB Document 03/13/25 09:04 JM [id number] 03/13/25 09:15 JM Document 03/17/25 08:47 MT [id number] 03/17/25 08:50 MT Document 03/20/25 09:08 RB [id number] 03/20/25 09:17 RB Document 03/24/25 09:29 TS [id number] 03/24/25 09:35 TS Document 03/27/25 09:06 MT [id number] 03/27/25 09:25 MT 03/06/25 03/10/25 03/13/25 08:50 09:09 09:04 - Today's Visit Information Type of service Follow-up Visit Follow-up Visit Follow-up Visit (Physician/LEAD PASTOR (Physician/LEAD PASTOR (Physician/LEAD PASTOR ) ) ) Arrival Mode Cane,Wheelchair Wheelchair Wheelchair Transfer Assistance None Manual Manual Transfer Assist (Other) 1 Accompanied by daughter daughter Patient Identification Verified (Name & Yes Yes Yes ) Patient Requires Transmission-Based No No No Precautions Safety Precautions Fall Prevention Fall Prevention Vital Signs Temperature (97.8 F-99.1 F) 97.2 F L 97.5 F L 97.4 F L Temperature Source Temporal Temporal Temporal Pulse Rate (60-100) 83 79 77 Pulse Location Monitor Monitor Monitor Respiratory Rate (12-18) 18 18 16 Respiratory rate source Observation Observation Observation Pulse Oximetry 94 Oxygen Delivery Method Room Air Room Air Blood Pressure (90/60-120/80) 137/72 H 121/61 H 147/53 H Blood Pressure Mean (mm Hg) 93 81 84 Source Monitor Monitor Monitor Position Semi-Fowlers Semi-Fowlers Semi-Fowlers Blood Pressure Location Right Arm Left Arm Right Arm History Since Last Visit- (Skip if this is Patient's initial visit) Have you changed medications since your No No No last visit? Any new allergies or adverse reactions No No No Had a fall/change in ADL's that may No No No increase risk of falls Signs or symptoms of abuse and/or No No No neglect since last visit Have you been in the hospital since your No No No last visit? Has dressing in place as prescribed Yes Yes Yes Has compression in place as prescribed Yes Yes Yes Has offloadiing in place as prescribed N/A N/A No Experienced any changes in pain level or No No No management Left Footwear Regular Shoe Regular Shoe Regular Shoe Right Footwear Regular Shoe Regular Shoe Regular Shoe Pain Scale: 0-10 Numeric Is Patient Pain Free? Yes Yes Yes 03/17/25 03/20/25 03/24/25 08:47 09:08 09:29 WC - Today's Visit Information Type of service Nurse-only Follow-up Visit Nurse-only Visit (Physician/LEAD PASTOR Visit ) Arrival Mode Ambulatory, Wheelchair Cane,Wheelchair Wheelchair Transfer Assistance Manual Transfer Assist (Other) Accompanied by daughter daughter Patient Identification Verified (Name & Yes Yes Yes ) Patient Requires Transmission-Based No No Precautions Safety Precautions Fall Prevention Vital Signs Temperature (97.8 F-99.1 F) 97 F L 97.7 F L 97.4 F L Temperature Source Temporal Temporal Temporal Pulse Rate (60-100) 78 82 79 Pulse Location Monitor Monitor Respiratory Rate (12-18) 18 18 16 Respiratory rate source Monitor Observation Observation Pulse Oximetry Oxygen Delivery Method Room Air Blood Pressure (90/60-120/80) 116/96 H 149/69 H 155/70 H Blood Pressure Mean (mm Hg) 102 95 98 Source Monitor Monitor Monitor Position Supine Sitting Sitting Blood Pressure Location Right Arm Left Arm Right Forearm History Since Last Visit- (Skip if this is Patient's initial visit) Have you changed medications since your No last visit? Any new allergies or adverse reactions No Had a fall/change in ADL's that may No increase risk of falls Signs or symptoms of abuse and/or No neglect since last visit Have you been in the hospital since your No last visit? Has dressing in place as prescribed Yes Yes Has compression in place as prescribed Yes Yes Has offloadiing in place as prescribed Yes N/A Experienced any changes in pain level or Yes No management Left Footwear Regular Shoe Regular Shoe Regular Shoe Right Footwear Regular Shoe Regular Shoe Regular Shoe Pain Scale: 0-10 Numeric Is Patient Pain Free? Yes Yes Yes 03/27/25 09:06 WC - Today's Visit Information Type of service Follow-up Visit (Physician/LEAD PASTOR ) Arrival Mode Ambulatory,Cane ,Wheelchair Transfer Assistance Transfer Assist (Other) Accompanied by daughter Patient Identification Verified (Name & Yes ) Patient Requires Transmission-Based Precautions Safety Precautions Fall Prevention Vital Signs Temperature (97.8 F-99.1 F) Temperature Source Temporal Pulse Rate (60-100) 84 Pulse Location Monitor Respiratory Rate (12-18) 18 Respiratory rate source Observation Pulse Oximetry Oxygen Delivery Method Room Air Blood Pressure (90/60-120/80) 129/63 H Blood Pressure Mean (mm Hg) 85 Source Monitor Position Sitting Blood Pressure Location Right Arm History Since Last Visit- (Skip if this is Patient's initial visit) Have you changed medications since your last visit? Any new allergies or adverse reactions Had a fall/change in ADL's that may increase risk of falls Signs or symptoms of abuse and/or neglect since last visit Have you been in the hospital since your Yes last visit? Has dressing in place as prescribed Yes Has compression in place as prescribed Yes Has offloadiing in place as prescribed Yes Experienced any changes in pain level or Yes management Left Footwear Regular Shoe Right Footwear Regular Shoe Pain Scale: 0-10 Numeric Is Patient Pain Free? Yes - Nurse 1 - General Ulcer Measurement Start: 03/06/25 08:50 Freq: Status: Active Protocol: Activity Type Activity Date Activity User E-sign Co-sign Detail Recorded Client Recorded Date Recorded By Document 03/06/25 09:04 JM [id number] 03/06/25 09:19 JM Document 03/10/25 09:09 RB [id number] 03/10/25 09:12 RB Document 03/13/25 09:04 JM [id number] 03/13/25 09:15 JM Document 03/20/25 09:08 RB [id number] 03/20/25 09:17 RB Document 03/24/25 09:29 TS [id number] 03/24/25 09:35 TS Document 03/27/25 09:06 MT [id number] 03/27/25 09:25 MT 03/06/25 03/10/25 03/13/25 09:04 09:09 09:04 Wound Center Nurse 1 #14 LLE lateral -Combined with other wound No No -Current Size (cm) - Length 0.5 0.4 -Current Size (cm) - Width 0.8 0.4 -Current Size (cm) - Depth 0.1 0.1 -Total Square Cm 0.40 0.16 -Date of Last Picture (Recall this 03/06/25 03/13/25 field) -Photo Taken Yes Yes -Epithelialization -Tunneling No No -Undermining/Tunneling No No -Circular Undermining No No -Exudate Amt None Present Small -Exudate Type Serosanguineous -Wound Margin Distinct, Distinct, Outline Outline Attached Attached -Granulation Amt None Present (0 Small (1-33%) %) -Granulation Quality Red -Slough/Fibrin Yes Yes -Necrosis Amt Large (67-100%) Medium (34-66%) -Necrotic Tissue Type Adherent Slough Adherent Slough -Structure Exposed -Texture (Leslye-wound Skin Appearance) Assessed Assessed -Moisture (Leslye-wound Skin Appearance) Assessed Assessed -Color (Leslye-wound Skin Appearance) Assessed Assessed -Temperature (Leslye-wound Skin No Abnormality No Abnormality Appearance) (Pt Warm) (Pt Warm) -Tenderness on Palpation (Leslye-wound Yes Skin Appearance) -Ulcer Cleansing Soap and Water Soap and Water -Foul Odor after Cleansing No No -Anesthetic Used 5% Lidocaine 5% Lidocaine Gel Gel #1 Left Medial Lower Extremity -Combined with other wound No No -Current Size (cm) - Length 2.1 2 -Current Size (cm) - Width 1.8 1 -Current Size (cm) - Depth 0.1 0.1 -Total Square Cm 3.78 2 -Date of Last Picture (Recall this 03/06/25 03/13/25 field) -Photo Taken Yes Yes -Epithelialization -Tunneling No No -Undermining/Tunneling No No -Circular Undermining No No -Exudate Amt Medium Medium -Exudate Type Serosanguineous Serosanguineous -Wound Margin Distinct, Distinct, Outline Outline Attached Attached -Granulation Amt Small (1-33%) Medium (34-66%) -Granulation Quality [place] -Slough/Fibrin Yes -Necrosis Amt Large (67-100%) Medium (34-66%) -Necrotic Tissue Type Adherent Slough Adherent Slough -Structure Exposed -Texture (Leslye-wound Skin Appearance) Assessed Assessed -Moisture (Leslye-wound Skin Appearance) Assessed Assessed -Color (Leslye-wound Skin Appearance) Assessed, Assessed, Erythema Erythema -Temperature (Leslye-wound Skin No Abnormality No Abnormality Appearance) (Pt Warm) (Pt Warm) -Tenderness on Palpation (Leslye-wound Yes Yes Skin Appearance) -Ulcer Cleansing Soap and Water Soap and Water -Foul Odor after Cleansing No No -Anesthetic Used 5% Lidocaine 5% Lidocaine Gel Gel Lower Limb Edema Present Yes Right Calf (cm) 48 46.2 43.5 Right Ankle (cm) 29 27.4 26.6 Left Calf (cm) 50.5 46.2 50 Left Ankle (cm) 21.1 24.2 24 03/20/25 03/24/25 03/27/25 09:08 09:29 09:06 Wound Center Nurse 1 #14 LLE lateral -Combined with other wound No -Current Size (cm) - Length 0.3 0.1 -Current Size (cm) - Width 0.4 0.1 -Current Size (cm) - Depth 0.1 0.1 -Total Square Cm 0.12 0.01 -Date of Last Picture (Recall this 03/27/25 field) -Photo Taken Yes Yes -Epithelialization Large 67-100% -Tunneling No No -Undermining/Tunneling No No -Circular Undermining No No -Exudate Amt Medium Small -Exudate Type Serosanguineous Serosanguineous -Wound Margin Distinct, Flat & Intact Outline Attached -Granulation Amt Medium (34-66%) Large (67-100%) -Granulation Quality [place] Pale,[place] -Slough/Fibrin Yes -Necrosis Amt Small (1-33%) Small (1-33%) -Necrotic Tissue Type Adherent Slough Adherent Slough -Structure Exposed N/A -Texture (Leslye-wound Skin Appearance) Assessed Assessed -Moisture (Leslye-wound Skin Appearance) Assessed Assessed -Color (Leslye-wound Skin Appearance) Hemosiderin Assessed Staining -Temperature (Leslye-wound Skin No Abnormality No Abnormality Appearance) (Pt Warm) (Pt Warm) -Tenderness on Palpation (Leslye-wound No No Skin Appearance) -Ulcer Cleansing Wound Cleanser Soap and Water -Foul Odor after Cleansing No No -Anesthetic Used 5% Lidocaine 5% Lidocaine Gel Gel #1 Left Medial Lower Extremity -Combined with other wound No -Current Size (cm) - Length 2.4 2.5 -Current Size (cm) - Width 1.4 1.5 -Current Size (cm) - Depth 0.1 0.1 -Total Square Cm 3.36 3.75 -Date of Last Picture (Recall this 03/27/25 field) -Photo Taken Yes Yes -Epithelialization Small 1-33% -Tunneling No No -Undermining/Tunneling No No -Circular Undermining No No -Exudate Amt Medium Medium -Exudate Type Serosanguineous Serosanguineous -Wound Margin Distinct, Flat & Intact Outline Attached -Granulation Amt Medium (34-66%) Medium (34-66%) -Granulation Quality [place] Pale,[place] -Slough/Fibrin Yes -Necrosis Amt Medium (34-66%) Small (1-33%) -Necrotic Tissue Type Adherent Slough -Structure Exposed N/A -Texture (Leslye-wound Skin Appearance) Assessed Assessed -Moisture (Leslye-wound Skin Appearance) Assessed Assessed -Color (Leslye-wound Skin Appearance) Hemosiderin Assessed Staining -Temperature (Leslye-wound Skin No Abnormality Appearance) (Pt Warm) -Tenderness on Palpation (Leslye-wound No Skin Appearance) -Ulcer Cleansing Wound Cleanser -Foul Odor after Cleansing No -Anesthetic Used 5% Lidocaine Gel Lower Limb Edema Present Yes Yes Right Calf (cm) 40.5 37.2 35.5 Right Ankle (cm) 26.5 26.4 25.5 Left Calf (cm) 47.6 40.7 46 Left Ankle (cm) 27.4 23.5 24.5 WC - Nurse 2 - General Ulcer CM Notes Start: 03/06/25 08:50 Freq: Status: Active Protocol: Activity Type Activity Date Activity User E-sign Co-sign Detail Recorded Client Recorded Date Recorded By Document 03/06/25 09:32 [id number] 03/06/25 09:39 GM Document 03/13/25 09:29 [id number] 03/13/25 09:33 GM Document 03/20/25 09:26 GM [id number] 03/20/25 09:34 GM Document 03/27/25 09:41 [id number] 03/27/25 09:47 03/06/25 03/13/25 03/20/25 09:32 09:29 09:26 Wound Center Nurse 2 #14 LLE lateral -Time 09:34 09:29 09:26 -Correct Patient Yes Yes Yes -Correct Side, Site, Position Yes Yes Yes -Correct Procedure Yes Yes Yes -Procedure Performed Yes Yes Yes -Type of Procedure Debridement Debridement Debridement -Clinical Debridement Subcutaneous Subcutaneous Subcutaneous -Tissue Removed Subcutaneous Subcutaneous Subcutaneous -Post Debridement (cm) - Length 0.6 0.3 0.3 -Post Debridement (cm) - Width 0.8 0.5 0.3 -Post Debridement (cm) - Depth 0.1 0.2 0.1 -Total Square (Post) (cm) 0.48 0.15 0.09 -Area of Debridement (cm) - Length 0.6 0.3 0.3 -Area of Debridement (cm) - Width 0.8 0.5 0.3 -Total Square (Area) (cm) 0.48 0.15 0.09 -Tunneling No No No -Undermining/Tunneling No No No -Circular Undermining No No No -Wound/Ulcer Outcome Not Healed Not Healed Not Healed -Ulcer Cleansing Rinsed/ Rinsed/ Rinsed/ Irrigated with Irrigated with Irrigated with Saline Saline Saline -Foul Odor after Cleansing No No No -Bioengineered Tissue No No No -Bleeding Controlled with Pressure Pressure Pressure -Treatment Response Procedure Procedure Procedure Tolerated Well Tolerated Well Tolerated Well -Offloading No No No -Debridement - Subq, 1st 20sq cm No Yes No #1 Left Medial Lower Extremity -Time 09:38 09:29 09:27 -Correct Patient Yes Yes Yes -Correct Side, Site, Position Yes Yes Yes -Correct Procedure Yes Yes Yes -Procedure Performed Yes Yes Yes -Type of Procedure Debridement Debridement Debridement -Clinical Debridement Subcutaneous Subcutaneous Subcutaneous -Tissue Removed Subcutaneous Subcutaneous Subcutaneous -Post Debridement (cm) - Length 2.3 2.0 2.0 -Post Debridement (cm) - Width 1.1 1.1 1.7 -Post Debridement (cm) - Depth 0.1 0.1 0.4 -Total Square (Post) (cm) 2.53 2.20 3.40 -Area of Debridement (cm) - Length 2.3 2.0 2.0 -Area of Debridement (cm) - Width 1.1 1.1 1.7 -Total Square (Area) (cm) 2.53 2.20 3.40 -Tunneling No No No -Undermining/Tunneling No No No -Circular Undermining No No No -Wound/Ulcer Outcome Not Healed Not Healed Not Healed -Ulcer Cleansing Rinsed/ Rinsed/ Rinsed/ Irrigated with Irrigated with Irrigated with Saline Saline Saline -Foul Odor after Cleansing No No No -Bioengineered Tissue No No No -Bleeding Controlled with Pressure Pressure Pressure -Treatment Response Procedure Procedure Procedure Tolerated Well Tolerated Well Tolerated Well -Offloading No No No -Total Non-Weight Bearing to Left Lower Extremity -Debridement - Subq, 1st 20sq cm Yes No Yes Pain Scale: 0-10 Numeric Is Patient Pain Free? Yes Yes Yes 03/27/25 09:41 Wound Center Nurse 2 #14 LLE lateral -Time 09:41 -Correct Patient Yes -Correct Side, Site, Position Yes -Correct Procedure Yes -Procedure Performed Yes -Type of Procedure Debridement -Clinical Debridement Subcutaneous -Tissue Removed Subcutaneous -Post Debridement (cm) - Length 0.5 -Post Debridement (cm) - Width 0.4 -Post Debridement (cm) - Depth 0.1 -Total Square (Post) (cm) 0.20 -Area of Debridement (cm) - Length 0.5 -Area of Debridement (cm) - Width 0.4 -Total Square (Area) (cm) 0.20 -Tunneling No -Undermining/Tunneling No -Circular Undermining No -Wound/Ulcer Outcome Not Healed -Ulcer Cleansing Rinsed/ Irrigated with Saline -Foul Odor after Cleansing No -Bioengineered Tissue -Bleeding Controlled with Pressure -Treatment Response Procedure Tolerated Well -Offloading No -Debridement - Subq, 1st 20sq cm No #1 Left Medial Lower Extremity -Time 09:45 -Correct Patient Yes -Correct Side, Site, Position Yes -Correct Procedure Yes -Procedure Performed Yes -Type of Procedure Debridement -Clinical Debridement Subcutaneous -Tissue Removed Subcutaneous -Post Debridement (cm) - Length 2.5 -Post Debridement (cm) - Width 1.2 -Post Debridement (cm) - Depth 0.1 -Total Square (Post) (cm) 3.00 -Area of Debridement (cm) - Length 2.5 -Area of Debridement (cm) - Width 1.2 -Total Square (Area) (cm) 3.00 -Tunneling No -Undermining/Tunneling No -Circular Undermining No -Wound/Ulcer Outcome Not Healed -Ulcer Cleansing Rinsed/ Irrigated with Saline -Foul Odor after Cleansing No -Bioengineered Tissue No -Bleeding Controlled with Pressure -Treatment Response Procedure Tolerated Well -Offloading No -Total Non-Weight Bearing to -Debridement - Subq, 1st 20sq cm Yes Pain Scale: 0-10 Numeric Is Patient Pain Free? Yes WC - Nurse 3 - General Ulcer D/C NN Start: 03/06/25 08:50 Freq: Status: Active Protocol: Activity Type Activity Date Activity User E-sign Co-sign Detail Recorded Client Recorded Date Recorded By Document 03/06/25 10:29 DS [id number] 03/06/25 10:33 DS Document 03/10/25 09:09 RB [id number] 03/10/25 09:12 RB Document 03/13/25 10:08 RB [id number] 03/13/25 10:19 RB Document 03/17/25 08:47 MT [id number] 03/17/25 08:50 MT Document 03/20/25 09:53 GM [id number] 03/20/25 09:54 GM Document 03/24/25 09:29 TS [id number] 03/24/25 09:35 TS Edit Result 03/24/25 09:29 TS(2) (1) [id number] 03/25/25 08:45 JF Document 03/27/25 10:34 MT [id number] 03/27/25 10:36 MT (1) LLE - Multi-Layered Wrap Application Unna Boot - Left => - Unna- Left (Qty applied) 1 => RLE - Multi-Layered Wrap Application Unna Boot - Right => - Unna- Right (Qty applied) 1 => BLE - Multi-Layered Wrap Application => Unna Boot - => Bilateral - Unna- Bilat (Qty applied) => 1 03/06/25 03/10/25 03/13/25 10:29 09:09 10:08 Wound Care Center Nurse 3 #14 LLE lateral -Ulcer Cleansing -Foul Odor after Cleansing -Primary Dressing Applied Aquacel Extra Aquacel Extra -Other Dressing aquacel extra bacitracin -Primary Dressing Covered/Secured with -Patient Supplied Dressing -Aquacel Extra 0 1 -Wound Comment(s) #1 Left Medial Lower Extremity -Ulcer Cleansing -Foul Odor after Cleansing -Primary Dressing Applied Aquacel Extra -Other Dressing aquacel extra aquacel extra/ bactracin -Primary Dressing Covered/Secured with -Patient Supplied Dressing -Aquacel Extra 1 BLE -Lotion applied to leg before compression wrap -Multi-Layered Wrap Application Unna Boot - Unna Boot - Unna Boot - Bilateral Bilateral Bilateral -Stockings -Unna- Bilat (Qty applied) 1 1 1 Treatment Response Procedure Procedure Tolerated Well Tolerated Well Pain Scale: 0-10 Numeric Is Patient Pain Free? Yes Yes Yes WC - Visit Discharge Discharge Condition Stable Stable Stable Ambulatory Status Ambulatory,Cane Wheelchair Wheelchair ,Wheelchair Transportation Private Auto Private Auto Private Auto Accompanied by daughter Medication Reconcilliation completed & No No provided to patient/care provider Clinical Summary of Care Provided Yes Yes 03/17/25 03/20/25 03/24/25 08:47 09:53 09:29 Wound Care Center Nurse 3 #14 LLE lateral -Ulcer Cleansing Not Cleansed Soap and Water -Foul Odor after Cleansing No -Primary Dressing Applied Aquacel Extra -Other Dressing aquacel and bacitracin bacitran -Primary Dressing Covered/Secured with Dry Gauze & Dry Gauze Roll Gauze, Secured with Tape -Patient Supplied Dressing Yes -Aquacel Extra 0 -Wound Comment(s) nurse visit, pt brought own aquacel extra #1 Left Medial Lower Extremity -Ulcer Cleansing Not Cleansed Soap and Water -Foul Odor after Cleansing No -Primary Dressing Applied Aquacel Extra -Other Dressing bacitracin and bacitracin aquacel extra from home -Primary Dressing Covered/Secured with Dry Gauze -Patient Supplied Dressing Yes -Aquacel Extra 0 BLE -Lotion applied to leg before No compression wrap -Multi-Layered Wrap Application Unna Boot - Unna Boot - Unna Boot - Bilateral Bilateral Bilateral -Stockings -Unna- Bilat (Qty applied) 1 1 1 Treatment Response Pain Scale: 0-10 Numeric Is Patient Pain Free? Yes Yes Yes WC - Visit Discharge Discharge Condition Stable Stable Stable Ambulatory Status Ambulatory, Ambulatory, Ambulatory,Cane Wheelchair Walker ,Wheelchair Transportation Private Auto Private Auto Private Auto Accompanied by daughter Medication Reconcilliation completed & No No provided to patient/care provider Clinical Summary of Care Provided Yes No 03/27/25 10:34 Wound Care Center Nurse 3 #14 LLE lateral -Ulcer Cleansing Soap and Water -Foul Odor after Cleansing -Primary Dressing Applied -Other Dressing abd used on top of leg -Primary Dressing Covered/Secured with Dry Gauze & Roll Gauze, Secured with Tape -Patient Supplied Dressing Yes -Aquacel Extra -Wound Comment(s) pt supplied AQ extra #1 Left Medial Lower Extremity -Ulcer Cleansing -Foul Odor after Cleansing -Primary Dressing Applied -Other Dressing -Primary Dressing Covered/Secured with -Patient Supplied Dressing Yes -Aquacel Extra BLE -Lotion applied to leg before compression wrap -Multi-Layered Wrap Application Unna Boot - Bilateral -Stockings Yes -Unna- Bilat (Qty applied) 1 Treatment Response Pain Scale: 0-10 Numeric Is Patient Pain Free? Yes WC - Visit Discharge Discharge Condition Ambulatory Status Transportation Accompanied by Medication Reconcilliation completed & provided to patient/care provider Clinical Summary of Care Provided Additional Wound Wound debrided: Left lower extremity (lateral) Type of Debridement: Excisional debridement Anesthesia Used: 5% Lidocaine Gel and Cetacaine Depth: Down to and including healthy tissue Percentage of wound debrided: 100 Instrument Used: 5mm curette Tissue Removed: Slough and vitalized tissue Severity: Fat Layer Exposed Amount of bleeding with debridement: Mild Bleeding Controlled with: Pressure Patient tolerated procedure: Patient tolerated procedure well Assessment/Plan Assessment/Plan (1) Ulcer of left lower extremity with fat layer exposed: CODE(S): L97.922 - Non-pressure chronic ulcer of unspecified part of left lower leg with fat layer exposed (2) Lymphedema: CODE(S): I89.0 - Lymphedema, not elsewhere classified (3) Non-pressure chronic ulcer of left calf with fat layer exposed: CODE(S): L97.222 - Non-pressure chronic ulcer of left calf with fat layer exposed (4) Chronic venous insufficiency: CODE(S): I87.2 - Venous insufficiency (chronic) (peripheral) (5) Lipodermatosclerosis of both lower extremities: CODE(S): M79.3 - Panniculitis, unspecified (6) Type 2 diabetes mellitus without complications: CODE(S): E11.9 - Type 2 diabetes mellitus without complications PLAN: Plan Debridement done as documented above, procedure was well-tolerated. No significant waste/materials exchange specialist the last couple of weeks despite changes in dressing. Will apply for skin substitute as I believe this would be beneficial given adequate compression using Unna boots and failure of traditional wound care. Continue to apply thin layer of bacitracin, continue Aquacel extra, gauze/foam dressing and apply Unna boot. Follow-up on Monday for nurse visit/change. Last A1c was less than 6, continue optimal diabetes control by lifestyle and dietary modifications. Currently not on medication for diabetes. Very largely sedentary and stays in a chair most of the time. Exercise as tolerated and leg elevation. Continue adequate protein intake. Continue other chronic wound care measures as previously documented. Their questions were answered, and they were advised to let us know if they had any further questions or concerns. Follow-up on Monday for nurse visit and in a week with me. This note was generated with [employer] dictation software. It may contain incorrect words, spelling, and punctuation that were not noted in checking the note before signing.
[2025-04-03 09:06] VITALS: BP 155/84; PULSE 96; RESP 16; TEMP 36.3
--- NOTE | 2025-04-03 10:13 | PCM.WC.PN ---
History of Present Illness Date of Service: 04/03/25 Chief Complaint: Left lower extremity ulceration History of Wound: Ms. Soares is an 84-year-old who is a [place] of care [place]. Had previously seen podiatry/wound care here. Being seen for lower extremity ulcerations. Chronic history of venous stasis/venous ulcerations. Also follows up with vascular recently had studies done. Difficulty with compression compliance due to other chronic morbidities/factors. Also very largely sedentary sitting in a chair most of the day. Had an Unna boot on which she did not tolerate as well, she states that it felt too tight this time but had tolerated the first time it was applied 2 weeks prior. History of diabetes mellitus which is well-controlled, currently not on medication for this. She states that she feels well otherwise. Appetite is good. No chills, fever or new concerns reported. Progress of Wound: No acute concerns or significant change since her last visit. Now approved for EpiFix. Tolerated Unna boot well. Objective Data Objective Data Vital Signs: Vital Signs Temp Pulse Resp BP Pulse Ox O2 Del Method 97.3 F L 96 16 155/84 H 94 Room Air 04/03/25 09:06 04/03/25 09:06 04/03/25 09:06 04/03/25 09:06 03/06/25 08:50 04/03/25 09:06 Oxygen Delivery Method Room Air Lab / Micro Data Micro: Microbiology 03/06/25 09:40 Wound - Leg, Left Gram Stain - Final 03/06/25 09:40 Wound - Leg, Left Wound Culture - Final Proteus vulgaris Morganella morganii sp morgani 03/06/25 09:40 Wound - Leg, Left Anaerobic Culture - Final No anaerobic bacteria isolated. Charges/Coding Procedures Integumentary 150xxx-152xx: [id number] Skin sub graft trnk/arm/leg Physical Exam Const alert, oriented x3 and no apparent distress General Appearance: cooperative and comfortable HEENT normocephalic, head/scalp atraumatic and hearing grossly normal bilaterally Eyes EOMs intact bilaterally General Eye: normal appearance of both eyes Neck full ROM General: normal visual inspection Resp normal respiratory effort Effort and Inspection: able to speak in complete sentences Extremity General Extremity: edema Skin General Skin Exam: venous stasis Wounds: wounds noted size Size: See Clinical note, bed granulating well, margins well approximated, no odor, open and surrounding erythema Neuro oriented x3, CN's II-XII intact bilaterally, moves all extremities and no focal motor deficits Psych mental status grossly normal, thought process normal, cooperative and affect normal Debridement Note Debridement Note Wound debrided: Left lower extremity (medial) Type of Debridement: Excisional debridement Anesthesia Used: 5% Lidocaine Gel Depth: Down to and including healthy tissue and in the subcutaneous layer Percentage of wound debrided: 100 Instrument Used: 5mm curette Tissue Removed: Devitalized tissue Severity: Fat Layer Exposed Amount of bleeding with debridement: Mild Bleeding Controlled with: Pressure Patient tolerated procedure: Patient tolerated procedure well Post-Debridement Measurements and Additional Note: Post-Debridement Measurements/Treatment - Nurse 1 - General Ulcer Assessment Start: 03/06/25 08:50 Freq: Status: Active Protocol: DYAN Activity Type Activity Date Activity User E-sign Co-sign Detail Recorded Client Recorded Date Recorded By Document 03/06/25 08:50 [id number] 03/06/25 09:04 JM Document 03/10/25 09:09 RB [id number] 03/10/25 09:12 RB Document 03/13/25 09:04 JM [id number] 03/13/25 09:15 JM Document 03/17/25 08:47 MT [id number] 03/17/25 08:50 MT Document 03/20/25 09:08 RB [id number] 03/20/25 09:17 RB Document 03/24/25 09:29 TS [id number] 03/24/25 09:35 TS Document 03/27/25 09:06 MT [id number] 03/27/25 09:25 MT Document 04/03/25 09:06 TS(2) [id number] 04/03/25 09:20 TS(2) 03/06/25 03/10/25 03/13/25 08:50 09:09 09:04 - Today's Visit Information Type of service Follow-up Visit Follow-up Visit Follow-up Visit (Physician/EMBEDDED LINUX DEVELOPER (Physician/EMBEDDED LINUX DEVELOPER (Physician/EMBEDDED LINUX DEVELOPER ) ) ) Arrival Mode Cane,Wheelchair Wheelchair Wheelchair Transfer Assistance None Manual Manual Transfer Assist (Other) 1 Accompanied by daughter daughter Patient Identification Verified (Name & Yes Yes Yes ) Patient Requires Transmission-Based No No No Precautions Safety Precautions Fall Prevention Fall Prevention Vital Signs Temperature (97.8 F-99.1 F) 97.2 F L 97.5 F L 97.4 F L Temperature Source Temporal Temporal Temporal Pulse Rate (60-100) 83 79 77 Pulse Location Monitor Monitor Monitor Respiratory Rate (12-18) 18 18 16 Respiratory rate source Observation Observation Observation Pulse Oximetry 94 Oxygen Delivery Method Room Air Room Air Blood Pressure (90/60-120/80) 137/72 H 121/61 H 147/53 H Blood Pressure Mean (mm Hg) 93 81 84 Source Monitor Monitor Monitor Position Semi-Fowlers Semi-Fowlers Semi-Fowlers Blood Pressure Location Right Arm Left Arm Right Arm History Since Last Visit- (Skip if this is Patient's initial visit) Have you changed medications since your No No No last visit? Any new allergies or adverse reactions No No No Had a fall/change in ADL's that may No No No increase risk of falls Signs or symptoms of abuse and/or No No No neglect since last visit Have you been in the hospital since your No No No last visit? Has dressing in place as prescribed Yes Yes Yes Has compression in place as prescribed Yes Yes Yes Has offloadiing in place as prescribed N/A N/A No Experienced any changes in pain level or No No No management Left Footwear Regular Shoe Regular Shoe Regular Shoe Right Footwear Regular Shoe Regular Shoe Regular Shoe Pain Scale: 0-10 Numeric Is Patient Pain Free? Yes Yes Yes 03/17/25 03/20/25 03/24/25 08:47 09:08 09:29 WC - Today's Visit Information Type of service Nurse-only Follow-up Visit Nurse-only Visit (Physician/EMBEDDED LINUX DEVELOPER Visit ) Arrival Mode Ambulatory, Wheelchair Cane,Wheelchair Wheelchair Transfer Assistance Manual Transfer Assist (Other) Accompanied by daughter daughter Patient Identification Verified (Name & Yes Yes Yes ) Patient Requires Transmission-Based No No Precautions Safety Precautions Fall Prevention Vital Signs Temperature (97.8 F-99.1 F) 97 F L 97.7 F L 97.4 F L Temperature Source Temporal Temporal Temporal Pulse Rate (60-100) 78 82 79 Pulse Location Monitor Monitor Respiratory Rate (12-18) 18 18 16 Respiratory rate source Monitor Observation Observation Pulse Oximetry Oxygen Delivery Method Room Air Blood Pressure (90/60-120/80) 116/96 H 149/69 H 155/70 H Blood Pressure Mean (mm Hg) 102 95 98 Source Monitor Monitor Monitor Position Supine Sitting Sitting Blood Pressure Location Right Arm Left Arm Right Forearm History Since Last Visit- (Skip if this is Patient's initial visit) Have you changed medications since your No last visit? Any new allergies or adverse reactions No Had a fall/change in ADL's that may No increase risk of falls Signs or symptoms of abuse and/or No neglect since last visit Have you been in the hospital since your No last visit? Has dressing in place as prescribed Yes Yes Has compression in place as prescribed Yes Yes Has offloadiing in place as prescribed Yes N/A Experienced any changes in pain level or Yes No management Left Footwear Regular Shoe Regular Shoe Regular Shoe Right Footwear Regular Shoe Regular Shoe Regular Shoe Pain Scale: 0-10 Numeric Is Patient Pain Free? Yes Yes Yes 03/27/25 04/03/25 09:06 09:06 - Today's Visit Information Type of service Follow-up Visit Follow-up Visit (Physician/EMBEDDED LINUX DEVELOPER (Physician/EMBEDDED LINUX DEVELOPER ) ) Arrival Mode Ambulatory,Cane Ambulatory ,Wheelchair Transfer Assistance Transfer Assist (Other) Accompanied by daughter Patient Identification Verified (Name & Yes Yes ) Patient Requires Transmission-Based No Precautions Safety Precautions Fall Prevention Fall Prevention Vital Signs Temperature (97.8 F-99.1 F) 97.3 F L Temperature Source Temporal Temporal Pulse Rate (60-100) 84 96 Pulse Location Monitor Monitor Respiratory Rate (12-18) 18 16 Respiratory rate source Observation Observation Pulse Oximetry Oxygen Delivery Method Room Air Room Air Blood Pressure (90/60-120/80) 129/63 H 155/84 H Blood Pressure Mean (mm Hg) 85 107 Source Monitor Monitor Position Sitting Sitting Blood Pressure Location Right Arm Right Arm History Since Last Visit- (Skip if this is Patient's initial visit) Have you changed medications since your No last visit? Any new allergies or adverse reactions No Had a fall/change in ADL's that may No increase risk of falls Signs or symptoms of abuse and/or No neglect since last visit Have you been in the hospital since your Yes No last visit? Has dressing in place as prescribed Yes Yes Has compression in place as prescribed Yes N/A Has offloadiing in place as prescribed Yes N/A Experienced any changes in pain level or Yes No management Left Footwear Regular Shoe Regular Shoe Right Footwear Regular Shoe Regular Shoe Pain Scale: 0-10 Numeric Is Patient Pain Free? Yes Yes WC - Nurse 1 - General Ulcer Measurement Start: 03/06/25 08:50 Freq: Status: Active Protocol: Activity Type Activity Date Activity User E-sign Co-sign Detail Recorded Client Recorded Date Recorded By Document 03/06/25 09:04 JM [id number] 03/06/25 09:19 JM Document 03/10/25 09:09 RB [id number] 03/10/25 09:12 RB Document 03/13/25 09:04 JM [id number] 03/13/25 09:15 JM Document 03/20/25 09:08 RB [id number] 03/20/25 09:17 RB Document 03/24/25 09:29 TS [id number] 03/24/25 09:35 TS Document 03/27/25 09:06 MT [id number] 03/27/25 09:25 MT Document 04/03/25 09:06 TS(2) [id number] 04/03/25 09:20 TS(2) 03/06/25 03/10/25 03/13/25 09:04 09:09 09:04 Wound Center Nurse 1 #14 LLE lateral -Combined with other wound No No -Current Size (cm) - Length 0.5 0.4 -Current Size (cm) - Width 0.8 0.4 -Current Size (cm) - Depth 0.1 0.1 -Total Square Cm 0.40 0.16 -Date of Last Picture (Recall this 03/06/25 03/13/25 field) -Photo Taken Yes Yes -Epithelialization -Tunneling No No -Undermining/Tunneling No No -Circular Undermining No No -Exudate Amt None Present Small -Exudate Type Serosanguineous -Wound Margin Distinct, Distinct, Outline Outline Attached Attached -Granulation Amt None Present (0 Small (1-33%) %) -Granulation Quality Red -Slough/Fibrin Yes Yes -Necrosis Amt Large (67-100%) Medium (34-66%) -Necrotic Tissue Type Adherent Slough Adherent Slough -Structure Exposed -Texture (Leslye-wound Skin Appearance) Assessed Assessed -Moisture (Leslye-wound Skin Appearance) Assessed Assessed -Color (Leslye-wound Skin Appearance) Assessed Assessed -Temperature (Leslye-wound Skin No Abnormality No Abnormality Appearance) (Pt Warm) (Pt Warm) -Tenderness on Palpation (Leslye-wound Yes Skin Appearance) -Ulcer Cleansing Soap and Water Soap and Water -Foul Odor after Cleansing No No -Anesthetic Used 5% Lidocaine 5% Lidocaine Gel Gel #1 Left Medial Lower Extremity -Combined with other wound No No -Current Size (cm) - Length 2.1 2 -Current Size (cm) - Width 1.8 1 -Current Size (cm) - Depth 0.1 0.1 -Total Square Cm 3.78 2 -Date of Last Picture (Recall this 03/06/25 03/13/25 field) -Photo Taken Yes Yes -Epithelialization -Tunneling No No -Undermining/Tunneling No No -Circular Undermining No No -Exudate Amt Medium Medium -Exudate Type Serosanguineous Serosanguineous -Wound Margin Distinct, Distinct, Outline Outline Attached Attached -Granulation Amt Small (1-33%) Medium (34-66%) -Granulation Quality [place] -Slough/Fibrin Yes -Necrosis Amt Large (67-100%) Medium (34-66%) -Necrotic Tissue Type Adherent Slough Adherent Slough -Structure Exposed -Texture (Leslye-wound Skin Appearance) Assessed Assessed -Moisture (Leslye-wound Skin Appearance) Assessed Assessed -Color (Leslye-wound Skin Appearance) Assessed, Assessed, Erythema Erythema -Temperature (Leslye-wound Skin No Abnormality No Abnormality Appearance) (Pt Warm) (Pt Warm) -Tenderness on Palpation (Leslye-wound Yes Yes Skin Appearance) -Ulcer Cleansing Soap and Water Soap and Water -Foul Odor after Cleansing No No -Anesthetic Used 5% Lidocaine 5% Lidocaine Gel Gel Lower Limb Edema Present Yes Right Calf (cm) 48 46.2 43.5 Point of measurement (cm from the medial instep) Right Ankle (cm) 29 27.4 26.6 Point of Measurement (cm from the medial instep) Left Calf (cm) 50.5 46.2 50 Point of measurement (cm from the medial instep) Left Ankle (cm) 21.1 24.2 24 Point of Measurement (cm from the medial instep) 03/20/25 03/24/25 03/27/25 09:08 09:29 09:06 Wound Center Nurse 1 #14 LLE lateral -Combined with other wound No -Current Size (cm) - Length 0.3 0.1 -Current Size (cm) - Width 0.4 0.1 -Current Size (cm) - Depth 0.1 0.1 -Total Square Cm 0.12 0.01 -Date of Last Picture (Recall this 03/27/25 field) -Photo Taken Yes Yes -Epithelialization Large 67-100% -Tunneling No No -Undermining/Tunneling No No -Circular Undermining No No -Exudate Amt Medium Small -Exudate Type Serosanguineous Serosanguineous -Wound Margin Distinct, Flat & Intact Outline Attached -Granulation Amt Medium (34-66%) Large (67-100%) -Granulation Quality [place] Pale,[place]ge -Slough/Fibrin Yes -Necrosis Amt Small (1-33%) Small (1-33%) -Necrotic Tissue Type Adherent Slough Adherent Slough -Structure Exposed N/A -Texture (Leslye-wound Skin Appearance) Assessed Assessed -Moisture (Leslye-wound Skin Appearance) Assessed Assessed -Color (Leslye-wound Skin Appearance) Hemosiderin Assessed Staining -Temperature (Leslye-wound Skin No Abnormality No Abnormality Appearance) (Pt Warm) (Pt Warm) -Tenderness on Palpation (Leslye-wound No No Skin Appearance) -Ulcer Cleansing Wound Cleanser Soap and Water -Foul Odor after Cleansing No No -Anesthetic Used 5% Lidocaine 5% Lidocaine Gel Gel #1 Left Medial Lower Extremity -Combined with other wound No -Current Size (cm) - Length 2.4 2.5 -Current Size (cm) - Width 1.4 1.5 -Current Size (cm) - Depth 0.1 0.1 -Total Square Cm 3.36 3.75 -Date of Last Picture (Recall this 03/27/25 field) -Photo Taken Yes Yes -Epithelialization Small 1-33% -Tunneling No No -Undermining/Tunneling No No -Circular Undermining No No -Exudate Amt Medium Medium -Exudate Type Serosanguineous Serosanguineous -Wound Margin Distinct, Flat & Intact Outline Attached -Granulation Amt Medium (34-66%) Medium (34-66%) -Granulation Quality [place] Pale,[place] -Slough/Fibrin Yes -Necrosis Amt Medium (34-66%) Small (1-33%) -Necrotic Tissue Type Adherent Slough -Structure Exposed N/A -Texture (Leslye-wound Skin Appearance) Assessed Assessed -Moisture (Leslye-wound Skin Appearance) Assessed Assessed -Color (Leslye-wound Skin Appearance) Hemosiderin Assessed Staining -Temperature (Leslye-wound Skin No Abnormality Appearance) (Pt Warm) -Tenderness on Palpation (Leslye-wound No Skin Appearance) -Ulcer Cleansing Wound Cleanser -Foul Odor after Cleansing No -Anesthetic Used 5% Lidocaine Gel Lower Limb Edema Present Yes Yes Right Calf (cm) 40.5 37.2 35.5 Point of measurement (cm from the medial instep) Right Ankle (cm) 26.5 26.4 25.5 Point of Measurement (cm from the medial instep) Left Calf (cm) 47.6 40.7 46 Point of measurement (cm from the medial instep) Left Ankle (cm) 27.4 23.5 24.5 Point of Measurement (cm from the medial instep) 04/03/25 09:06 Wound Center Nurse 1 #14 LLE lateral -Combined with other wound No -Current Size (cm) - Length 0.1 -Current Size (cm) - Width 0.1 -Current Size (cm) - Depth 1 -Total Square Cm 0.01 -Date of Last Picture (Recall this field) -Photo Taken Yes -Epithelialization Medium 34-66% -Tunneling No -Undermining/Tunneling No -Circular Undermining No -Exudate Amt None Present -Exudate Type -Wound Margin Distinct, Outline Attached -Granulation Amt Medium (34-66%) -Granulation Quality Pale -Slough/Fibrin No -Necrosis Amt -Necrotic Tissue Type -Structure Exposed None/Limited to Skin Breakdown -Texture (Leslye-wound Skin Appearance) Assessed, Localized Edema -Moisture (Leslye-wound Skin Appearance) Assessed -Color (Leslye-wound Skin Appearance) Assessed -Temperature (Leslye-wound Skin No Abnormality Appearance) (Pt Warm) -Tenderness on Palpation (Leslye-wound Skin Appearance) -Ulcer Cleansing -Foul Odor after Cleansing No -Anesthetic Used 5% Lidocaine Gel #1 Left Medial Lower Extremity -Combined with other wound No -Current Size (cm) - Length 2.5 -Current Size (cm) - Width 1.5 -Current Size (cm) - Depth 0.1 -Total Square Cm 3.75 -Date of Last Picture (Recall this 04/03/25 field) -Photo Taken Yes -Epithelialization Medium 34-66% -Tunneling No -Undermining/Tunneling No -Circular Undermining No -Exudate Amt Medium -Exudate Type Serosanguineous -Wound Margin Distinct, Outline Attached -Granulation Amt Medium (34-66%) -Granulation Quality Red -Slough/Fibrin Yes -Necrosis Amt -Necrotic Tissue Type -Structure Exposed None/Limited to Skin Breakdown -Texture (Leslye-wound Skin Appearance) Assessed, Localized Edema -Moisture (Leslye-wound Skin Appearance) Assessed -Color (Leslye-wound Skin Appearance) Assessed -Temperature (Leslye-wound Skin No Abnormality Appearance) (Pt Warm) -Tenderness on Palpation (Leslye-wound No Skin Appearance) -Ulcer Cleansing Soap and Water -Foul Odor after Cleansing No -Anesthetic Used 5% Lidocaine Gel Lower Limb Edema Present Right Calf (cm) Point of measurement (cm from the medial 32 instep) Right Ankle (cm) Point of Measurement (cm from the medial 25 instep) Left Calf (cm) Point of measurement (cm from the medial 35 instep) Left Ankle (cm) Point of Measurement (cm from the medial 27 instep) WC - Nurse 2 - General Ulcer CM Notes Start: 03/06/25 08:50 Freq: Status: Active Protocol: Activity Type Activity Date Activity User E-sign Co-sign Detail Recorded Client Recorded Date Recorded By Document 03/06/25 09:32 [id number] 03/06/25 09:39 Document 03/13/25 09:29 [id number] 03/13/25 09:33 GM Document 03/20/25 09:26 GM [id number] 03/20/25 09:34 Document 03/27/25 09:41 GM [id number] 03/27/25 09:47 GM Document 04/03/25 09:29 DS [id number] 04/03/25 09:46 DS 03/06/25 03/13/25 03/20/25 09:32 09:29 09:26 Wound Center Nurse 2 #14 LLE lateral -Time 09:34 09:29 09:26 -Correct Patient Yes Yes Yes -Correct Side, Site, Position Yes Yes Yes -Correct Procedure Yes Yes Yes -Procedure Performed Yes Yes Yes -Type of Procedure Debridement Debridement Debridement -Clinical Debridement Subcutaneous Subcutaneous Subcutaneous -Tissue Removed Subcutaneous Subcutaneous Subcutaneous -Post Debridement (cm) - Length 0.6 0.3 0.3 -Post Debridement (cm) - Width 0.8 0.5 0.3 -Post Debridement (cm) - Depth 0.1 0.2 0.1 -Total Square (Post) (cm) 0.48 0.15 0.09 -Area of Debridement (cm) - Length 0.6 0.3 0.3 -Area of Debridement (cm) - Width 0.8 0.5 0.3 -Total Square (Area) (cm) 0.48 0.15 0.09 -Tunneling No No No -Undermining/Tunneling No No No -Circular Undermining No No No -Wound/Ulcer Outcome Not Healed Not Healed Not Healed -Ulcer Cleansing Rinsed/ Rinsed/ Rinsed/ Irrigated with Irrigated with Irrigated with Saline Saline Saline -Foul Odor after Cleansing No No No -Bioengineered Tissue No No No -Bleeding Controlled with Pressure Pressure Pressure -Treatment Response Procedure Procedure Procedure Tolerated Well Tolerated Well Tolerated Well -Offloading No No No -Debridement - Subq, 1st 20sq cm No Yes No #1 Left Medial Lower Extremity -Time 09:38 09:29 09:27 -Correct Patient Yes Yes Yes -Correct Side, Site, Position Yes Yes Yes -Correct Procedure Yes Yes Yes -Procedure Performed Yes Yes Yes -Type of Procedure Debridement Debridement Debridement -Clinical Debridement Subcutaneous Subcutaneous Subcutaneous -Tissue Removed Subcutaneous Subcutaneous Subcutaneous -Post Debridement (cm) - Length 2.3 2.0 2.0 -Post Debridement (cm) - Width 1.1 1.1 1.7 -Post Debridement (cm) - Depth 0.1 0.1 0.4 -Total Square (Post) (cm) 2.53 2.20 3.40 -Area of Debridement (cm) - Length 2.3 2.0 2.0 -Area of Debridement (cm) - Width 1.1 1.1 1.7 -Total Square (Area) (cm) 2.53 2.20 3.40 -Tunneling No No No -Undermining/Tunneling No No No -Circular Undermining No No No -Wound/Ulcer Outcome Not Healed Not Healed Not Healed -Ulcer Cleansing Rinsed/ Rinsed/ Rinsed/ Irrigated with Irrigated with Irrigated with Saline Saline Saline -Foul Odor after Cleansing No No No -Bioengineered Tissue No No No -Type of Bioengineered Tissue -Expiration Date -Product Lot Number -Percent Used -Lot number of Saline Used -Bleeding Controlled with Pressure Pressure Pressure -Treatment Response Procedure Procedure Procedure Tolerated Well Tolerated Well Tolerated Well -Offloading No No No -Total Non-Weight Bearing to Left Lower Extremity -Debridement - Subq, 1st 20sq cm Yes No Yes -Apply Skin Sub - 1st 25 sq cm - Legs -Epifix Application 1-4 (per sq cm) Pain Scale: 0-10 Numeric Is Patient Pain Free? Yes Yes Yes 03/27/25 04/03/25 09:41 09:29 Wound Center Nurse 2 #14 LLE lateral -Time : 09:29 -Correct Patient Yes Yes -Correct Side, Site, Position Yes Yes -Correct Procedure Yes Yes -Procedure Performed Yes Yes -Type of Procedure Debridement Debridement -Clinical Debridement Subcutaneous Subcutaneous -Tissue Removed Subcutaneous Subcutaneous -Post Debridement (cm) - Length 0.5 0.1 -Post Debridement (cm) - Width 0.4 0.1 -Post Debridement (cm) - Depth 0.1 0.1 -Total Square (Post) (cm) 0.20 0.01 -Area of Debridement (cm) - Length 0.5 0.1 -Area of Debridement (cm) - Width 0.4 0.1 -Total Square (Area) (cm) 0.20 0.01 -Tunneling No No -Undermining/Tunneling No No -Circular Undermining No No -Wound/Ulcer Outcome Not Healed Not Healed -Ulcer Cleansing Rinsed/ Rinsed/ Irrigated with Irrigated with Saline Saline -Foul Odor after Cleansing No No -Bioengineered Tissue No -Bleeding Controlled with Pressure Pressure -Treatment Response Procedure Procedure Tolerated Well Tolerated Well -Offloading No -Debridement - Subq, 1st 20sq cm No Yes #1 Left Medial Lower Extremity -Time 09:45 09:30 -Correct Patient Yes Yes -Correct Side, Site, Position Yes Yes -Correct Procedure Yes Yes -Procedure Performed Yes Yes -Type of Procedure Debridement Debridement -Clinical Debridement Subcutaneous Subcutaneous -Tissue Removed Subcutaneous Subcutaneous -Post Debridement (cm) - Length 2.5 2.4 -Post Debridement (cm) - Width 1.2 1.2 -Post Debridement (cm) - Depth 0.1 0.1 -Total Square (Post) (cm) 3.00 2.88 -Area of Debridement (cm) - Length 2.5 2.4 -Area of Debridement (cm) - Width 1.2 1.2 -Total Square (Area) (cm) 3.00 2.88 -Tunneling No No -Undermining/Tunneling No No -Circular Undermining No No -Wound/Ulcer Outcome Not Healed Not Healed -Ulcer Cleansing Rinsed/ Rinsed/ Irrigated with Irrigated with Saline Saline -Foul Odor after Cleansing No No -Bioengineered Tissue No Yes -Type of Bioengineered Tissue Epifix -Expiration Date 08/03/29 -Product Lot Number [id number] -Percent Used 100 -Lot number of Saline Used [id number] -Bleeding Controlled with Pressure Pressure -Treatment Response Procedure Procedure Tolerated Well Tolerated Well -Offloading No -Total Non-Weight Bearing to -Debridement - Subq, 1st 20sq cm Yes No -Apply Skin Sub - 1st 25 sq cm - Legs 1 -Epifix Application 1-4 (per sq cm) 4 Pain Scale: 0-10 Numeric Is Patient Pain Free? Yes Yes WC - Nurse 3 - General Ulcer D/C NN Start: 03/06/25 08:50 Freq: Status: Active Protocol: Activity Type Activity Date Activity User E-sign Co-sign Detail Recorded Client Recorded Date Recorded By Document 03/06/25 10:29 DS [id number] 03/06/25 10:33 DS Document 03/10/25 09:09 RB [id number] 03/10/25 09:12 RB Document 03/13/25 10:08 RB [id number] 03/13/25 10:19 RB Document 03/17/25 08:47 MT [id number] 03/17/25 08:50 MT Document 03/20/25 09:53 GM [id number] 03/20/25 09:54 GM Document 03/24/25 09:29 TS [id number] 03/24/25 09:35 TS Edit Result 03/24/25 09:29 TS(2) (1) [id number] 03/25/25 08:45 JF Document 03/27/25 10:34 MT [id number] 03/27/25 10:36 MT Document 04/03/25 09:57 RB [id number] 04/03/25 09:58 RB (1) LLE - Multi-Layered Wrap Application Unna Boot - Left => - Unna- Left (Qty applied) 1 => RLE - Multi-Layered Wrap Application Unna Boot - Right => - Unna- Right (Qty applied) 1 => BLE - Multi-Layered Wrap Application => Unna Boot - => Bilateral - Unna- Bilat (Qty applied) => 1 03/06/25 03/10/25 03/13/25 10:29 09:09 10:08 Wound Care Center Nurse 3 #14 LLE lateral -Ulcer Cleansing -Foul Odor after Cleansing -Primary Dressing Applied Aquacel Extra Aquacel Extra -Other Dressing aquacel extra bacitracin -Primary Dressing Covered/Secured with -Patient Supplied Dressing -Aquacel Extra 0 1 -Wound Comment(s) #1 Left Medial Lower Extremity -Ulcer Cleansing -Foul Odor after Cleansing -Primary Dressing Applied Aquacel Extra -Other Dressing aquacel extra aquacel extra/ bactracin -Primary Dressing Covered/Secured with -Patient Supplied Dressing -Aquacel Extra 1 BLE -Lotion applied to leg before compression wrap -Multi-Layered Wrap Application Unna Boot - Unna Boot - Unna Boot - Bilateral Bilateral Bilateral -Stockings -Unna- Bilat (Qty applied) 1 1 1 Treatment Response Procedure Procedure Tolerated Well Tolerated Well Pain Scale: 0-10 Numeric Is Patient Pain Free? Yes Yes Yes WC - Visit Discharge Discharge Condition Stable Stable Stable Ambulatory Status Ambulatory,Cane Wheelchair Wheelchair ,Wheelchair Transportation Private Auto Private Auto Private Auto Accompanied by daughter Medication Reconcilliation completed & No No provided to patient/care provider Clinical Summary of Care Provided Yes Yes 03/17/25 03/20/25 03/24/25 08:47 09:53 09:29 Wound Care Center Nurse 3 #14 LLE lateral -Ulcer Cleansing Not Cleansed Soap and Water -Foul Odor after Cleansing No -Primary Dressing Applied Aquacel Extra -Other Dressing aquacel and bacitracin bacitran -Primary Dressing Covered/Secured with Dry Gauze & Dry Gauze Roll Gauze, Secured with Tape -Patient Supplied Dressing Yes -Aquacel Extra 0 -Wound Comment(s) nurse visit, pt brought own aquacel extra #1 Left Medial Lower Extremity -Ulcer Cleansing Not Cleansed Soap and Water -Foul Odor after Cleansing No -Primary Dressing Applied Aquacel Extra -Other Dressing bacitracin and bacitracin aquacel extra from home -Primary Dressing Covered/Secured with Dry Gauze -Patient Supplied Dressing Yes -Aquacel Extra 0 BLE -Lotion applied to leg before No compression wrap -Multi-Layered Wrap Application Unna Boot - Unna Boot - Unna Boot - Bilateral Bilateral Bilateral -Stockings -Unna- Bilat (Qty applied) 1 1 1 Treatment Response Pain Scale: 0-10 Numeric Is Patient Pain Free? Yes Yes Yes WC - Visit Discharge Discharge Condition Stable Stable Stable Ambulatory Status Ambulatory, Ambulatory, Ambulatory,Cane Wheelchair Walker ,Wheelchair Transportation Private Auto Private Auto Private Auto Accompanied by daughter Medication Reconcilliation completed & No No provided to patient/care provider Clinical Summary of Care Provided Yes No 03/27/25 04/03/25 10:34 09:57 Wound Care Center Nurse 3 #14 LLE lateral -Ulcer Cleansing Soap and Water -Foul Odor after Cleansing -Primary Dressing Applied -Other Dressing abd used on top of leg -Primary Dressing Covered/Secured with Dry Gauze & Roll Gauze, Secured with Tape -Patient Supplied Dressing Yes -Aquacel Extra -Wound Comment(s) pt supplied AQ extra #1 Left Medial Lower Extremity -Ulcer Cleansing -Foul Odor after Cleansing -Primary Dressing Applied -Other Dressing -Primary Dressing Covered/Secured with -Patient Supplied Dressing Yes -Aquacel Extra BLE -Lotion applied to leg before compression wrap -Multi-Layered Wrap Application Unna Boot - Unna Boot - Bilateral Bilateral -Stockings Yes -Unna- Bilat (Qty applied) 1 1 Treatment Response Procedure Tolerated Well Pain Scale: 0-10 Numeric Is Patient Pain Free? Yes Yes WC - Visit Discharge Discharge Condition Stable Ambulatory Status Wheelchair Transportation Private Auto Accompanied by daughter Medication Reconcilliation completed & No provided to patient/care provider Clinical Summary of Care Provided Yes Additional Wound Wound debrided: Left lower extremity (lateral) Type of Debridement: Excisional debridement Anesthesia Used: 5% Lidocaine Gel and Cetacaine Depth: Down to and including healthy tissue and in the subcutaneous layer Percentage of wound debrided: 100 Instrument Used: 5mm curette Tissue Removed: Devitalized tissue Severity: Fat Layer Exposed Amount of bleeding with debridement: Mild Bleeding Controlled with: Pressure Patient tolerated procedure: Patient tolerated procedure well Assessment/Plan Assessment/Plan (1) Ulcer of left lower extremity with fat layer exposed: CODE(S): L97.922 - Non-pressure chronic ulcer of unspecified part of left lower leg with fat layer exposed (2) Lymphedema: CODE(S): I89.0 - Lymphedema, not elsewhere classified (3) Non-pressure chronic ulcer of left calf with fat layer exposed: CODE(S): L97.222 - Non-pressure chronic ulcer of left calf with fat layer exposed (4) Chronic venous insufficiency: CODE(S): I87.2 - Venous insufficiency (chronic) (peripheral) (5) Lipodermatosclerosis of both lower extremities: CODE(S): M79.3 - Panniculitis, unspecified (6) Type 2 diabetes mellitus without complications: CODE(S): E11.9 - Type 2 diabetes mellitus without complications PLAN: Plan Debridement done as documented above, procedure was well-tolerated. Better granulation otherwise no significant change in circumference since her last visit. Now approved for EpiFix. Initial application done using 100% of product to left medial and lateral ulcers. Moistened with saline/hydrogel and covered with Adaptic touch. Aquacel over medial ulcer and cover with gauze. Leave in place for a week. Continue Unna boot and leave in place as well for a week. Last A1c was less than 6, continue optimal diabetes control by lifestyle and dietary modifications. Currently not on medication for diabetes. Very largely sedentary and stays in a chair most of the time. Exercise as tolerated and leg elevation. Continue adequate protein intake. Continue other chronic wound care measures as previously documented. Their questions were answered, and they were advised to let us know if they had any further questions or concerns. Follow-up in 1 week This note was generated with [employer] dictation software. It may contain incorrect words, spelling, and punctuation that were not noted in checking the note before signing.
--- NOTE | 2025-04-04 07:40 | WC ---
PHOTO-LLE 04/03/25
== END 2025-04-04 23:59 | disposition home or self-care (01) ==
LOC: WC 09:15
PROVIDERS: PCP Nurse Practitioner Family; Referring Provider Nurse Practitioner Family; Visit Provider Internal Medicine
DX: E11.622 Type 2 diabetes mellitus with other skin ulcer (principal); L97.222 Non-pressure chronic ulcer of left calf with fat layer exposed; E11.51 Type 2 diabetes mellitus with diabetic peripheral angiopathy without gangrene; E11.59 Type 2 diabetes mellitus with other circulatory complications; Z79.01 Long term (current) use of 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s; I10 Essential (primary) hypertension; Z82.49 Family history of ischemic heart disease and other diseases of the circulatory system; I89.0 Lymphedema, not elsewhere classified; K21.9 Gastro-esophageal reflux disease without esophagitis; I87.2 Venous insufficiency (chronic) (peripheral); I25.10 Atherosclerotic heart disease of native coronary artery without angina pectoris; E78.00 Pure hypercholesterolemia, unspecified; Z86.718 Personal history of other venous thrombosis and embolism; Z83.3 Family history of diabetes mellitus; M79.3 Panniculitis, unspecified; Z90.49 Acquired absence of other specified parts of digestive tract; Z98.51 Tubal ligation status
CPT/HCPCS: 11042; 15271; 29580; 87070; 87075; 87077; 87186; 87205; Q4186

== ENCOUNTER 2025-04-24 09:30 | Outpatient (RCR) | payer MEDICARE, OTHER, SELFPAY ==
[2025-04-10 09:53] VITALS: BP 152/77; PULSE 83; RESP 16; TEMP 36.3
--- NOTE | 2025-04-10 10:54 | PN.PCM_ITS ---
History of Present Illness Date of Service: 04/10/25 Chief Complaint: Left lower extremity ulceration History of Wound: Ms. Soares is an 84-year-old who [place] of care [place]. Had previously seen podiatry/wound care here. Being seen for lower extremity ulcerations. Chronic history of venous stasis/venous ulcerations. Also follows up with vascular recently had studies done. Difficulty with compression compliance due to other chronic morbidities/factors. Also very largely sedentary sitting in a chair most of the day. Had an Unna boot on which she did not tolerate as well, she states that it felt too tight this time but had tolerated the first time it was applied 2 weeks prior. History of diabetes mellitus which is well-controlled, currently not on medication for this. She states that she feels well otherwise. Appetite is good. No chills, fever or new concerns reported. Progress of Wound: Had initial application of EpiFix last week. Tolerated well without any concerns. Some improvement noted. Objective Data Objective Data Vital Signs: Vital Signs Temp Pulse Resp BP O2 Del Method 97.4 F L 83 16 152/77 H Room Air 04/10/25 09:53 04/10/25 09:53 04/10/25 09:53 04/10/25 09:53 04/10/25 09:53 Oxygen Delivery Method Room Air Charges/Coding Procedures Integumentary 150xxx-152xx: 33852 Skin sub graft trnk/arm/leg Physical Exam Const alert, oriented x3 and no apparent distress General Appearance: cooperative and comfortable HEENT normocephalic, head/scalp atraumatic and hearing grossly normal bilaterally Eyes EOMs intact bilaterally General Eye: normal appearance of both eyes Neck full ROM General: normal visual inspection Resp normal respiratory effort Effort and Inspection: able to speak in complete sentences Extremity General Extremity: edema Skin General Skin Exam: venous stasis Wounds: wounds noted size Size: See Clinical note, bed granulating well, margins well approximated, no odor, open and surrounding erythema Neuro oriented x3, CN's II-XII intact bilaterally, moves all extremities and no focal motor deficits Psych mental status grossly normal, thought process normal, cooperative and affect normal Debridement Note Debridement Note Wound debrided: Left lower extremity (medial) Type of Debridement: Excisional debridement Anesthesia Used: 5% Lidocaine Gel and Cetacaine Depth: Down to and including healthy tissue and in the subcutaneous layer Percentage of wound debrided: 100 Instrument Used: 5mm curette Tissue Removed: Slough and devitalized tissue Severity: Fat Layer Exposed Amount of bleeding with debridement: Mild Bleeding Controlled with: Pressure Patient tolerated procedure: Patient tolerated procedure well Post-Debridement Measurements and Additional Note: Post-Debridement Measurements/Treatment - Nurse 1 - General Ulcer Assessment Start: 04/10/25 09:52 Freq: Status: Active Protocol: DYAN Activity Type Activity Date Activity User E-sign Co-sign Detail Recorded Client Recorded Date Recorded By Document 04/10/25 09:53 LIVE [id number] 04/10/25 10:38 LIVE 04/10/25 09:53 - Today's Visit Information Type of service Follow-up Visit (Physician/EQUIPMENT VALIDATION SPECIALIST ) Arrival Mode Cane,Walker Transfer Assistance Manual Transfer Assist (Other) 1 Patient Identification Verified (Name & Yes ) Patient Requires Transmission-Based No Precautions Safety Precautions Fall Prevention Vital Signs Temperature (97.8 F-99.1 F) 97.4 F L Temperature Source Temporal Pulse Rate (60-100) 83 Pulse Location Monitor Respiratory Rate (12-18) 16 Respiratory rate source Observation Oxygen Delivery Method Room Air Blood Pressure (90/60-120/80) 152/77 H Blood Pressure Mean (mm Hg) 102 Source Monitor Position Sitting Blood Pressure Location Right Arm History Since Last Visit- (Skip if this is Patient's initial visit) Have you changed medications since your No last visit? Any new allergies or adverse reactions No Had a fall/change in ADL's that may No increase risk of falls Signs or symptoms of abuse and/or No neglect since last visit Have you been in the hospital since your No last visit? Has dressing in place as prescribed Yes Has compression in place as prescribed Yes Has offloadiing in place as prescribed N/A Experienced any changes in pain level or No management Left Footwear Regular Shoe Right Footwear Regular Shoe Pain Scale: 0-10 Numeric Is Patient Pain Free? No RT palafox -Description Dull - Nurse 1 - General Ulcer Measurement Start: 04/10/25 09:52 Freq: Status: Active Protocol: Activity Type Activity Date Activity User E-sign Co-sign Detail Recorded Client Recorded Date Recorded By Document 04/10/25 09:53 LIVE [id number] 04/10/25 10:38 LIVE 04/10/25 09:53 Wound Center Nurse 1 #14 LLE lateral -Combined with other wound No -Current Size (cm) - Length 0.1 -Current Size (cm) - Width 0.1 -Current Size (cm) - Depth 0.1 -Total Square Cm 0.01 -Date of Last Picture (Recall this 04/10/25 field) -Photo Taken Yes -Tunneling No -Undermining/Tunneling No -Circular Undermining No -Exudate Amt None Present -Wound Margin Distinct, Outline Attached -Granulation Amt Large (67-100%) -Granulation Quality [place] -Slough/Fibrin No -Necrosis Amt None Present (0 %) -Texture (Leslye-wound Skin Appearance) Assessed -Moisture (Leslye-wound Skin Appearance) Assessed -Color (Leslye-wound Skin Appearance) Assessed -Temperature (Leslye-wound Skin No Abnormality Appearance) (Pt Warm) -Tenderness on Palpation (Leslye-wound Yes Skin Appearance) -Ulcer Cleansing Soap and Water -Anesthetic Used 5% Lidocaine Gel #1 Left Medial Lower Extremity -Combined with other wound No -Current Size (cm) - Length 2.4 -Current Size (cm) - Width 1.2 -Current Size (cm) - Depth 0.1 -Total Square Cm 2.88 -Date of Last Picture (Recall this 04/10/25 field) -Photo Taken Yes -Tunneling No -Undermining/Tunneling No -Circular Undermining No -Exudate Amt Large -Exudate Type Serosanguineous -Wound Margin Distinct, Outline Attached -Granulation Amt Medium (34-66%) -Granulation Quality [place] -Necrosis Amt Medium (34-66%) -Necrotic Tissue Type Adherent Slough -Texture (Leslye-wound Skin Appearance) Assessed -Moisture (Leslye-wound Skin Appearance) Assessed -Color (Leslye-wound Skin Appearance) Assessed -Temperature (Leslye-wound Skin No Abnormality Appearance) (Pt Warm) -Tenderness on Palpation (Leslye-wound Yes Skin Appearance) -Ulcer Cleansing Soap and Water -Anesthetic Used 5% Lidocaine Gel Right Calf (cm) 34.2 Right Ankle (cm) 20.4 Left Calf (cm) 35 Left Ankle (cm) 20.5 Assessment/Plan Assessment/Plan (1) Ulcer of left lower extremity with fat layer exposed: CODE(S): L97.922 - Non-pressure chronic ulcer of unspecified part of left lower leg with fat layer exposed (2) Lymphedema: CODE(S): I89.0 - Lymphedema, not elsewhere classified (3) Non-pressure chronic ulcer of left calf with fat layer exposed: CODE(S): L97.222 - Non-pressure chronic ulcer of left calf with fat layer exposed (4) Chronic venous insufficiency: CODE(S): I87.2 - Venous insufficiency (chronic) (peripheral) (5) Lipodermatosclerosis of both lower extremities: CODE(S): M79.3 - Panniculitis, unspecified (6) Type 2 diabetes mellitus without complications: CODE(S): E11.9 - Type 2 diabetes mellitus without complications PLAN: Plan Debridement done as documented above, procedure was well-tolerated. Lateral ulcer is healed. Medial with some improvement. Second application of EpiFix done using 100% of product to left medial ulcer moistened with saline and covered with wound veil. Aquacel over medial ulcer and cover with gauze. Adaptic to lateral area. Leave in place for a week. Continue Unna boot and leave in place as well for a week. Last A1c was less than 6, continue optimal diabetes control by lifestyle and dietary modifications. Currently not on medication for diabetes. Very largely sedentary and stays in a chair most of the time. Exercise as tolerated and leg elevation. Continue adequate protein intake. Continue other chronic wound care measures as previously documented. Their questions were answered, and they were advised to let us know if they had any further questions or concerns. Follow-up in 1 week This note was generated with [employer] software. It may contain incorrect words, spelling, and punctuation that were not noted in checking the note before signing.
--- NOTE | 2025-04-11 09:03 | WC ---
PHOTO-LLE LAT 04/10/25
--- NOTE | 2025-04-11 09:03 | WC ---
PHOTO-LEFT LOWER EXT. 04/10/25
[2025-04-17 10:04] VITALS: BP 137/70; PULSE 87; RESP 18; TEMP 36.9
--- NOTE | 2025-04-17 12:29 | PCM.WC.PN ---
History of Present Illness Date of Service: 04/17/25 Chief Complaint: Left lower extremity ulceration History of Wound: Ms. Soares is an 84-year-old who is a transfer of care to dc. Had previously seen podiatry/wound care here. Being seen for lower extremity ulcerations. Chronic history of venous stasis/venous ulcerations. Also follows up with vascular recently had studies done. Difficulty with compression compliance due to other chronic morbidities/factors. Also very largely sedentary sitting in a chair most of the day. Had an Unna boot on which she did not tolerate as well, she states that it felt too tight this time but had tolerated the first time it was applied 2 weeks prior. History of diabetes mellitus which is well-controlled, currently not on medication for this. She states that she feels well otherwise. Appetite is good. No chills, fever or new concerns reported. Progress of Wound: No acute concerns at this time. Has had 2 applications of EpiFix so far. Improving. Objective Data Objective Data Vital Signs: Vital Signs Temp Pulse Resp BP O2 Del Method 98.5 F 87 18 137/70 H Room Air 04/17/25 10:04 04/17/25 10:04 04/17/25 10:04 04/17/25 10:04 04/17/25 10:04 Oxygen Delivery Method Room Air Charges/Coding Procedures Integumentary 150xxx-152xx: 31428 Skin sub graft trnk/arm/leg Physical Exam Const alert, oriented x3 and no apparent distress General Appearance: cooperative and comfortable HEENT normocephalic, head/scalp atraumatic and hearing grossly normal bilaterally Eyes EOMs intact bilaterally General Eye: normal appearance of both eyes Neck full ROM General: normal visual inspection Resp normal respiratory effort Effort and Inspection: able to speak in complete sentences Extremity General Extremity: edema Skin Wounds: wounds noted size Size: See Clinical note, bed granulating well, margins well approximated, no odor and open Neuro oriented x3, CN's II-XII intact bilaterally, moves all extremities and no focal motor deficits Psych mental status grossly normal, thought process normal, cooperative and affect normal Debridement Note Debridement Note Wound debrided: Left lower extremity Type of Debridement: Excisional debridement Anesthesia Used: 5% Lidocaine Gel Depth: Down to and including healthy tissue and in the subcutaneous layer Percentage of wound debrided: 100 Instrument Used: 5mm curette Tissue Removed: Devitalized tissue Severity: Fat Layer Exposed Amount of bleeding with debridement: Mild Bleeding Controlled with: Pressure Patient tolerated procedure: Patient tolerated procedure well Post-Debridement Measurements and Additional Note: Post-Debridement Measurements/Treatment - Nurse 1 - General Ulcer Assessment Start: 04/10/25 09:52 Freq: Status: Active Protocol: DYAN Activity Type Activity Date Activity User E-sign Co-sign Detail Recorded Client Recorded Date Recorded By Document 04/10/25 09:53 [id number] 04/10/25 10:38 Document 04/17/25 10:04 RB [id number] 04/17/25 10:07 RB 04/10/25 04/17/25 09:53 10:04 - Today's Visit Information Type of service Follow-up Visit Follow-up Visit (Physician/MAGNET VALVE ASSEMBLER (Physician/MAGNET VALVE ASSEMBLER ) ) Arrival Mode Cane,Walker Wheelchair Transfer Assistance Manual Manual Transfer Assist (Other) 1 Patient Identification Verified (Name & Yes Yes ) Patient Requires Transmission-Based No No Precautions Safety Precautions Fall Prevention Vital Signs Temperature (97.8 F-99.1 F) 97.4 F L 98.5 F Temperature Source Temporal Temporal Pulse Rate (60-100) 83 87 Pulse Location Monitor Monitor Respiratory Rate (12-18) 16 18 Respiratory rate source Observation Observation Oxygen Delivery Method Room Air Room Air Blood Pressure (90/60-120/80) 152/77 H 137/70 H Blood Pressure Mean (mm Hg) 102 92 Source Monitor Monitor Position Sitting Semi-Fowlers Blood Pressure Location Right Arm Left Arm History Since Last Visit- (Skip if this is Patient's initial visit) Have you changed medications since your No No last visit? Any new allergies or adverse reactions No No Had a fall/change in ADL's that may No No increase risk of falls Signs or symptoms of abuse and/or No No neglect since last visit Have you been in the hospital since your No No last visit? Has dressing in place as prescribed Yes Yes Has compression in place as prescribed Yes Yes Has offloadiing in place as prescribed N/A N/A Experienced any changes in pain level or No No management Left Footwear Regular Shoe Right Footwear Regular Shoe Pain Scale: 0-10 Numeric Is Patient Pain Free? No Yes RT palafox -Description Dull - Nurse 1 - General Ulcer Measurement Start: 04/10/25 09:52 Freq: Status: Active Protocol: Activity Type Activity Date Activity User E-sign Co-sign Detail Recorded Client Recorded Date Recorded By Document 04/10/25 09:53 LIVE [id number] 04/10/25 10:38 JM Document 04/17/25 10:04 RB [id number] 04/17/25 10:07 RB 04/10/25 04/17/25 09:53 10:04 Wound Center Nurse 1 #14 LLE lateral -Combined with other wound No -Current Size (cm) - Length 0.1 -Current Size (cm) - Width 0.1 -Current Size (cm) - Depth 0.1 -Total Square Cm 0.01 -Date of Last Picture (Recall this 04/10/25 field) -Photo Taken Yes -Tunneling No -Undermining/Tunneling No -Circular Undermining No -Exudate Amt None Present -Wound Margin Distinct, Outline Attached -Granulation Amt Large (67-100%) -Granulation Quality Virgie -Slough/Fibrin No -Necrosis Amt None Present (0 %) -Texture (Leslye-wound Skin Appearance) Assessed -Moisture (Leslye-wound Skin Appearance) Assessed -Color (Leslye-wound Skin Appearance) Assessed -Temperature (Leslye-wound Skin No Abnormality Appearance) (Pt Warm) -Tenderness on Palpation (Leslye-wound Yes Skin Appearance) -Ulcer Cleansing Soap and Water -Anesthetic Used 5% Lidocaine Gel #1 Left Medial Lower Extremity -Combined with other wound No No -Current Size (cm) - Length 2.4 1.5 -Current Size (cm) - Width 1.2 1 -Current Size (cm) - Depth 0.1 0.1 -Total Square Cm 2.88 1.5 -Date of Last Picture (Recall this 04/10/25 field) -Photo Taken Yes Yes -Tunneling No No -Undermining/Tunneling No No -Circular Undermining No No -Exudate Amt Large Medium -Exudate Type Serosanguineous Serosanguineous -Wound Margin Distinct, Distinct, Outline Outline Attached Attached -Granulation Amt Medium (34-66%) Medium (34-66%) -Granulation Quality Virgie Virgie -Slough/Fibrin Yes -Necrosis Amt Medium (34-66%) Small (1-33%) -Necrotic Tissue Type Adherent Slough Adherent Slough -Structure Exposed N/A -Texture (Leslye-wound Skin Appearance) Assessed Assessed -Moisture (Leslye-wound Skin Appearance) Assessed Assessed -Color (Leslye-wound Skin Appearance) Assessed Hemosiderin Staining -Temperature (Leslye-wound Skin No Abnormality No Abnormality Appearance) (Pt Warm) (Pt Warm) -Tenderness on Palpation (Leslye-wound Yes No Skin Appearance) -Ulcer Cleansing Soap and Water Wound Cleanser -Foul Odor after Cleansing No -Anesthetic Used 5% Lidocaine 5% Lidocaine Gel Gel Lower Limb Edema Present Yes Right Calf (cm) 34.2 36 Right Ankle (cm) 20.4 24 Left Calf (cm) 35 47 Left Ankle (cm) 20.5 22.7 WC - Nurse 2 - General Ulcer CM Notes Start: 04/10/25 09:52 Freq: Status: Active Protocol: Activity Type Activity Date Activity User E-sign Co-sign Detail Recorded Client Recorded Date Recorded By Document 04/10/25 10:51 GM [id number] 04/10/25 10:56 GM Edit Result 04/10/25 10:51 GM (1) [id number] 04/11/25 15:36 GM Document 04/17/25 10:34 GM [id number] 04/17/25 10:39 GM (1) #1 Left Medial Lower Extremity - Debridement - Subq, 1st 20sq cm No => Yes 04/10/25 04/17/25 10:51 10:34 Wound Center Nurse 2 #14 LLE lateral -Time 10:52 -Correct Patient Yes -Correct Side, Site, Position Yes -Correct Procedure No -Procedure Performed No -Tunneling No -Undermining/Tunneling No -Circular Undermining No -Wound/Ulcer Outcome Healed- Epithelialized -Ulcer Cleansing Not Cleansed -Foul Odor after Cleansing No -Bioengineered Tissue No -Bleeding Controlled with Pressure -Treatment Response Procedure Tolerated Well #1 Left Medial Lower Extremity -Time 10:53 10:34 -Correct Patient Yes Yes -Correct Side, Site, Position Yes Yes -Correct Procedure Yes Yes -Procedure Performed Yes Yes -Type of Procedure Debridement Debridement -Clinical Debridement Subcutaneous Subcutaneous -Tissue Removed Subcutaneous Subcutaneous -Post Debridement (cm) - Length 2.3 1.6 -Post Debridement (cm) - Width 0.9 0.7 -Post Debridement (cm) - Depth 0.1 0.1 -Total Square (Post) (cm) 2.07 1.12 -Area of Debridement (cm) - Length 2.3 1.6 -Area of Debridement (cm) - Width 0.9 0.7 -Total Square (Area) (cm) 2.07 1.12 -Tunneling No No -Undermining/Tunneling No No -Circular Undermining No No -Wound/Ulcer Outcome Not Healed Not Healed -Ulcer Cleansing Rinsed/ Rinsed/ Irrigated with Irrigated with Saline Saline -Foul Odor after Cleansing No No -Bioengineered Tissue Yes Yes -Type of Bioengineered Tissue Epifix Epifix 18mm Disc -Expiration Date 08/03/29 12/03/29 -Product Lot Number [id number] -Percent Used 100 100 -Lot number of Saline Used [id number] -Bleeding Controlled with Pressure NA -Treatment Response Procedure Procedure Tolerated Well Tolerated Well -Offloading No No -Total Non-Weight Bearing to Left Lower Extremity -Debridement - Subq, 1st 20sq cm Yes Yes -Apply Skin Sub - 1st 25 sq cm - Legs 1 1 -Epifix Application 1-4 (per sq cm) 4 -Epifix 18mm Disc Application 1-4 3 Pain Scale: 0-10 Numeric Is Patient Pain Free? Yes Yes - Nurse 3 - General Ulcer D/C NN Start: 04/10/25 09:52 Freq: Status: Active Protocol: Activity Type Activity Date Activity User E-sign Co-sign Detail Recorded Client Recorded Date Recorded By Document 04/10/25 11:28 [id number] 04/10/25 11:29 Document 04/17/25 11:17 RB [id number] 04/17/25 11:18 04/10/25 04/17/25 11:28 11:17 Wound Care Center Nurse 3 #14 LLE lateral -Ulcer Cleansing Not Cleansed -Foul Odor after Cleansing No #1 Left Medial Lower Extremity -Ulcer Cleansing Not Cleansed -Foul Odor after Cleansing No -Primary Dressing Applied Aquacel Extra, NonAdherent Contact Layer -Other Dressing aquacel extra pt own -Primary Dressing Covered/Secured with Dry Gauze, Dry Gauze Secured with Tape -Aquacel Extra 1 BLE -Lotion applied to leg before No compression wrap -Multi-Layered Wrap Application Unna Boot - Unna Boot - Bilateral Bilateral -Unna- Bilat (Qty applied) 1 1 Treatment Response Procedure Tolerated Well Pain Scale: 0-10 Numeric Is Patient Pain Free? Yes Yes WC - Visit Discharge Discharge Condition Stable Stable Ambulatory Status Wheelchair Wheelchair Transportation Private Auto Private Auto Medication Reconcilliation completed & No provided to patient/care provider Clinical Summary of Care Provided Yes Assessment/Plan Assessment/Plan (1) Ulcer of left lower extremity with fat layer exposed: CODE(S): L97.922 - Non-pressure chronic ulcer of unspecified part of left lower leg with fat layer exposed (2) Lymphedema: CODE(S): I89.0 - Lymphedema, not elsewhere classified (3) Non-pressure chronic ulcer of left calf with fat layer exposed: CODE(S): L97.222 - Non-pressure chronic ulcer of left calf with fat layer exposed (4) Chronic venous insufficiency: CODE(S): I87.2 - Venous insufficiency (chronic) (peripheral) (5) Lipodermatosclerosis of both lower extremities: CODE(S): M79.3 - Panniculitis, unspecified (6) Type 2 diabetes mellitus without complications: CODE(S): E11.9 - Type 2 diabetes mellitus without complications PLAN: Plan Debridement done as documented above, procedure was well-tolerated. Good improvement noted over the last week. As above, no new concerns reported. 3rd application of EpiFix done using 100% of product to left medial ulcer moistened with saline and covered with wound veil. Leave in place for a week. Continue Unna boot and leave in place as well for a week. Last A1c was less than 6, continue optimal diabetes control by lifestyle and dietary modifications. Currently not on medication for diabetes. Very largely sedentary and stays in a chair most of the time. Exercise as tolerated and leg elevation. Continue adequate protein intake. Continue other chronic wound care measures as previously documented. Their questions were answered, and they were advised to let us know if they had any further questions or concerns. Follow-up in 1 week This note was generated with [employer] software. It may contain incorrect words, spelling, and punctuation that were not noted in checking the note before signing.
--- NOTE | 2025-04-21 08:36 | WC ---
PHOTO-LLE 04/17/25
[2025-04-24 09:12] VITALS: BP 150/59; PULSE 80; RESP 18; TEMP 36.3; BMI 30.9
--- NOTE | 2025-04-24 10:19 | PCM.WC.PN ---
History of Present Illness Date of Service: 04/24/25 Chief Complaint: Left lower extremity ulceration History of Wound: Ms. Soares is an 84-year-old who is a transfer of care to [place]. Had previously seen podiatry/wound care here. Being seen for lower extremity ulcerations. Chronic history of venous stasis/venous ulcerations. Also follows up with vascular recently had studies done. Difficulty with compression compliance due to other chronic morbidities/factors. Also very largely sedentary sitting in a chair most of the day. Had an Unna boot on which she did not tolerate as well, she states that it felt too tight this time but had tolerated the first time it was applied 2 weeks prior. History of diabetes mellitus which is well-controlled, currently not on medication for this. She states that she feels well otherwise. Appetite is good. No chills, fever or new concerns reported. Progress of Wound: No acute concerns reported. Continues to show good improvement. Has had 3 applications of EpiFix so far. Objective Data Objective Data Vital Signs: Vital Signs Temp Pulse Resp BP O2 Del Method 97.3 F L 80 18 150/59 H Room Air 04/24/25 09:12 04/24/25 09:12 04/24/25 09:12 04/24/25 09:12 04/24/25 09:12 Oxygen Delivery Method Room Air Weight: 143 lb Body Mass Index (BMI) 30.9 Charges/Coding Procedures Integumentary 150xxx-152xx: [id number] Skin sub graft trnk/arm/leg Physical Exam Const alert, oriented x3 and no apparent distress General Appearance: cooperative and comfortable HEENT normocephalic, head/scalp atraumatic and hearing grossly normal bilaterally Eyes EOMs intact bilaterally General Eye: normal appearance of both eyes Neck full ROM General: normal visual inspection Resp normal respiratory effort Effort and Inspection: able to speak in complete sentences Extremity General Extremity: edema Skin Wounds: wounds noted size Size: See Clinical note, bed granulating well, margins well approximated, no odor and open Neuro oriented x3, CN's II-XII intact bilaterally, moves all extremities and no focal motor deficits Psych mental status grossly normal, thought process normal, cooperative and affect normal Debridement Note Debridement Note Wound debrided: Left lower extremity Type of Debridement: Excisional debridement Anesthesia Used: 5% Lidocaine Gel Depth: Down to and including healthy tissue and in the subcutaneous layer Percentage of wound debrided: 100 Instrument Used: 3mm curette Tissue Removed: Devitalized tissue Severity: Fat Layer Exposed Amount of bleeding with debridement: Mild Bleeding Controlled with: Pressure Patient tolerated procedure: Patient tolerated procedure well Post-Debridement Measurements and Additional Note: Post-Debridement Measurements/Treatment WC - Nurse 1 - General Ulcer Assessment Start: 04/10/25 09:52 Freq: Status: Active Protocol: [email or web address] [email or web address] Activity Type Activity Date Activity User E-sign Co-sign Detail Recorded Client Recorded Date Recorded By Document 04/10/25 09:53 JM [id number] 04/10/25 10:38 JM Document 04/17/25 10:04 RB [id number] 04/17/25 10:07 RB Document 04/24/25 09:12 GM [id number] 04/24/25 09:28 04/10/25 04/17/25 04/24/25 09:53 10:04 09:12 - Today's Visit Information Type of service Follow-up Visit Follow-up Visit Follow-up Visit (Physician/FLIGHT RESERVATIONS MANAGER (Physician/FLIGHT RESERVATIONS MANAGER (Physician/FLIGHT RESERVATIONS MANAGER ) ) ) Arrival Mode Cane,Walker Wheelchair Ambulatory,Cane ,Wheelchair Transfer Assistance Manual Manual Transfer Assist (Other) 1 Patient Identification Verified (Name & Yes Yes Yes ) Patient Requires Transmission-Based No No Precautions Safety Precautions Fall Prevention Height and Weight Height 4 ft 9 in Weight 143 lb Weight in Pounds 143.0 lbs Weight Measurement Method Stated by Patient Body Mass Index (BMI) 30.9 BMI Classification Obese Vital Signs Temperature (97.8 F-99.1 F) 97.4 F L 98.5 F 97.3 F L Temperature Source Temporal Temporal Temporal Pulse Rate (60-100) 83 87 80 Pulse Location Monitor Monitor Monitor Respiratory Rate (12-18) 16 18 18 Respiratory rate source Observation Observation Observation Oxygen Delivery Method Room Air Room Air Room Air Blood Pressure (90/60-120/80) 152/77 H 137/70 H 150/59 H Blood Pressure Mean (mm Hg) 102 92 89 Source Monitor Monitor Monitor Position Sitting Semi-Fowlers Sitting Blood Pressure Location Right Arm Left Arm Right Arm History Since Last Visit- (Skip if this is Patient's initial visit) Have you changed medications since your No No No last visit? Any new allergies or adverse reactions No No No Had a fall/change in ADL's that may No No No increase risk of falls Signs or symptoms of abuse and/or No No No neglect since last visit Have you been in the hospital since your No No No last visit? Has dressing in place as prescribed Yes Yes Yes Has compression in place as prescribed Yes Yes Yes Has offloadiing in place as prescribed N/A N/A N/A Experienced any changes in pain level or No No management Left Footwear Regular Shoe Regular Shoe Right Footwear Regular Shoe Regular Shoe Pain Scale: 0-10 Numeric Is Patient Pain Free? No Yes Yes RT palafox -Description Dull WC - Nurse 1 - General Ulcer Measurement Start: 04/10/25 09:52 Freq: Status: Active Protocol: Activity Type Activity Date Activity User E-sign Co-sign Detail Recorded Client Recorded Date Recorded By Document 04/10/25 09:53 JM [id number] 04/10/25 10:38 JM Document 04/17/25 10:04 RB [id number] 04/17/25 10:07 RB Document 04/24/25 09:12 [id number] 04/24/25 09:28 04/10/25 04/17/25 04/24/25 09:53 10:04 09:12 Wound Center Nurse 1 #14 LLE lateral -Combined with other wound No -Current Size (cm) - Length 0.1 -Current Size (cm) - Width 0.1 -Current Size (cm) - Depth 0.1 -Total Square Cm 0.01 -Date of Last Picture (Recall this 04/10/25 field) -Photo Taken Yes -Tunneling No -Undermining/Tunneling No -Circular Undermining No -Exudate Amt None Present -Wound Margin Distinct, Outline Attached -Granulation Amt Large (67-100%) -Granulation Quality Centre Hall -Slough/Fibrin No -Necrosis Amt None Present (0 %) -Texture (Leslye-wound Skin Appearance) Assessed -Moisture (Leslye-wound Skin Appearance) Assessed -Color (Leslye-wound Skin Appearance) Assessed -Temperature (Leslye-wound Skin No Abnormality Appearance) (Pt Warm) -Tenderness on Palpation (Leslye-wound Yes Skin Appearance) -Ulcer Cleansing Soap and Water -Anesthetic Used 5% Lidocaine Gel #1 Left Medial Lower Extremity -Combined with other wound No No No -Current Size (cm) - Length 2.4 1.5 1.9 -Current Size (cm) - Width 1.2 1 0.9 -Current Size (cm) - Depth 0.1 0.1 0.1 -Total Square Cm 2.88 1.5 1.71 -Date of Last Picture (Recall this 04/10/25 04/24/25 field) -Photo Taken Yes Yes Yes -Epithelialization Medium 34-66% -Tunneling No No No -Undermining/Tunneling No No No -Circular Undermining No No No -Exudate Amt Large Medium Small -Exudate Type Serosanguineous Serosanguineous Serosanguineous -Wound Margin Distinct, Distinct, Distinct, Outline Outline Outline Attached Attached Attached -Granulation Amt Medium (34-66%) Medium (34-66%) None Present (0 %) -Granulation Quality Centre Hall Centre Hall -Slough/Fibrin Yes No -Necrosis Amt Medium (34-66%) Small (1-33%) None Present (0 %) -Necrotic Tissue Type Adherent Slough Adherent Slough -Structure Exposed N/A N/A -Texture (Leslye-wound Skin Appearance) Assessed Assessed Assessed -Moisture (Leslye-wound Skin Appearance) Assessed Assessed Assessed -Color (Leslye-wound Skin Appearance) Assessed Hemosiderin Assessed Staining -Temperature (Leslye-wound Skin No Abnormality No Abnormality No Abnormality Appearance) (Pt Warm) (Pt Warm) (Pt Warm) -Tenderness on Palpation (Leslye-wound Yes No No Skin Appearance) -Ulcer Cleansing Soap and Water Wound Cleanser Soap and Water -Foul Odor after Cleansing No No -Anesthetic Used 5% Lidocaine 5% Lidocaine 5% Lidocaine Gel Gel Gel Lower Limb Edema Present Yes Yes Right Calf (cm) 34.2 36 33.5 Right Ankle (cm) 20.4 24 25.0 Left Calf (cm) 35 47 35.5 Left Ankle (cm) 20.5 22.7 24.5 WC - Nurse 2 - General Ulcer CM Notes Start: 04/10/25 09:52 Freq: Status: Active Protocol: Activity Type Activity Date Activity User E-sign Co-sign Detail Recorded Client Recorded Date Recorded By Document 04/10/25 10:51 GM(2) [id number] 04/10/25 10:56 GM(2) Edit Result 04/10/25 10:51 GM(2) (1) [id number] 04/11/25 15:36 GM(2) Document 11/13/25 10:34 GM(2) [id number] 04/17/25 10:39 GM(2) Document 04/24/25 10:00 GM(2) [id number] 04/24/25 10:02 GM(2) (1) #1 Left Medial Lower Extremity - Debridement - Subq, 1st 20sq cm No => Yes 04/10/25 04/17/25 04/24/25 10:51 10:34 10:00 Wound Center Nurse 2 #14 LLE lateral -Time 10:52 -Correct Patient Yes -Correct Side, Site, Position Yes -Correct Procedure No -Procedure Performed No -Tunneling No -Undermining/Tunneling No -Circular Undermining No -Wound/Ulcer Outcome Healed- Epithelialized -Ulcer Cleansing Not Cleansed -Foul Odor after Cleansing No -Bioengineered Tissue No -Bleeding Controlled with Pressure -Treatment Response Procedure Tolerated Well #1 Left Medial Lower Extremity -Time 10:53 10:34 10:00 -Correct Patient Yes Yes Yes -Correct Side, Site, Position Yes Yes Yes -Correct Procedure Yes Yes Yes -Procedure Performed Yes Yes Yes -Type of Procedure Debridement Debridement Debridement -Clinical Debridement Subcutaneous Subcutaneous Subcutaneous -Tissue Removed Subcutaneous Subcutaneous Subcutaneous -Post Debridement (cm) - Length 2.3 1.6 1.5 -Post Debridement (cm) - Width 0.9 0.7 0.3 -Post Debridement (cm) - Depth 0.1 0.1 0.1 -Total Square (Post) (cm) 2.07 1.12 0.45 -Area of Debridement (cm) - Length 2.3 1.6 1.5 -Area of Debridement (cm) - Width 0.9 0.7 0.3 -Total Square (Area) (cm) 2.07 1.12 0.45 -Tunneling No No No -Undermining/Tunneling No No No -Circular Undermining No No No -Wound/Ulcer Outcome Not Healed Not Healed Not Healed -Ulcer Cleansing Rinsed/ Rinsed/ Rinsed/ Irrigated with Irrigated with Irrigated with Saline Saline Saline -Foul Odor after Cleansing No No No -Bioengineered Tissue Yes Yes Yes -Type of Bioengineered Tissue Epifix Epifix 18mm Epifix 18mm Disc Disc -Expiration Date 08/03/29 12/03/2930 -Product Lot Number [id number] -Percent Used 100 100 100 -Lot number of Saline Used [id number] -Bleeding Controlled with Pressure NA Pressure -Treatment Response Procedure Procedure Procedure Tolerated Well Tolerated Well Tolerated Well -Offloading No No No -Total Non-Weight Bearing to Left Lower Extremity -Debridement - Subq, 1st 20sq cm Yes Yes Yes -Apply Skin Sub - 1st 25 sq cm - Legs 1 1 1 -Epifix Application 1-4 (per sq cm) 4 -Epifix 18mm Disc Application 1-4 3 3 Pain Scale: 0-10 Numeric Is Patient Pain Free? Yes Yes Yes - Nurse 3 - General Ulcer D/C NN Start: 04/10/25 09:52 Freq: Status: Active Protocol: Activity Type Activity Date Activity User E-sign Co-sign Detail Recorded Client Recorded Date Recorded By Document 04/10/25 11:28 GM(2) [id number] 04/10/25 11:29 GM(2) Document 04/17/25 11:17 RB [id number] 04/17/25 11:18 RB 04/10/25 04/17/25 11:28 11:17 Wound Care Center Nurse 3 #14 LLE lateral -Ulcer Cleansing Not Cleansed -Foul Odor after Cleansing No #1 Left Medial Lower Extremity -Ulcer Cleansing Not Cleansed -Foul Odor after Cleansing No -Primary Dressing Applied Aquacel Extra, NonAdherent Contact Layer -Other Dressing aquacel extra pt own -Primary Dressing Covered/Secured with Dry Gauze, Dry Gauze Secured with Tape -Aquacel Extra 1 BLE -Lotion applied to leg before No compression wrap -Multi-Layered Wrap Application Unna Boot - Unna Boot - Bilateral Bilateral -Unna- Bilat (Qty applied) 1 1 Treatment Response Procedure Tolerated Well Pain Scale: 0-10 Numeric Is Patient Pain Free? Yes Yes - Visit Discharge Discharge Condition Stable Stable Ambulatory Status Wheelchair Wheelchair Transportation Private Auto Private Auto Medication Reconcilliation completed & No provided to patient/care provider Clinical Summary of Care Provided Yes Assessment/Plan Assessment/Plan (1) Ulcer of left lower extremity with fat layer exposed: CODE(S): L97.922 - Non-pressure chronic ulcer of unspecified part of left lower leg with fat layer exposed (2) Lymphedema: CODE(S): I89.0 - Lymphedema, not elsewhere classified (3) Non-pressure chronic ulcer of left calf with fat layer exposed: CODE(S): L97.222 - Non-pressure chronic ulcer of left calf with fat layer exposed (4) Chronic venous insufficiency: CODE(S): I87.2 - Venous insufficiency (chronic) (peripheral) (5) Lipodermatosclerosis of both lower extremities: CODE(S): M79.3 - Panniculitis, unspecified (6) Type 2 diabetes mellitus without complications: CODE(S): E11.9 - Type 2 diabetes mellitus without complications PLAN: Plan Debridement done as documented above, procedure was well-tolerated. Continues to show good improvement. 4th application of EpiFix done using 100% of product to left medial ulcer moistened with saline and covered with Adaptic touch. Secured with Steri-Strips, leave in place for 2 weeks. Continue Unna boot and leave in place as well for a week, due to the holiday, may come in on Monday for Unna boot change. Last A1c was less than 6, continue optimal diabetes control by lifestyle and dietary modifications. Currently not on medication for diabetes. Very largely sedentary and stays in a chair most of the time. Exercise as tolerated and leg elevation. Continue adequate protein intake. Continue other chronic wound care measures as previously documented. Her questions were answered, and she was advised to let us know if she had any further questions or concerns. Follow-up on Monday for Unna boot change and possibly outer dressing change and in 2 weeks with me. This note was generated with [employer] software. It may contain incorrect words, spelling, and punctuation that were not noted in checking the note before signing.
--- NOTE | 2025-04-25 08:50 | WC ---
PHOTO-LEFT MEDIAL LEG 04/24/25
== END 2025-05-04 23:59 | disposition home or self-care (01) ==
LOC: WC 09:30
PROVIDERS: PCP Nurse Practitioner Family; Referring Provider Nurse Practitioner Family; Visit Provider Internal Medicine
DX: E11.622 Type 2 diabetes mellitus with other skin ulcer (principal); L97.222 Non-pressure chronic ulcer of left calf with fat layer exposed; I89.0 Lymphedema, not elsewhere classified; I87.2 Venous insufficiency (chronic) (peripheral); M79.3 Panniculitis, unspecified
CPT/HCPCS: 11042; 15271; 29580; Q4186

== ENCOUNTER 2025-04-27 17:58 | Emergency (ER) | payer MEDICARE, OTHER, SELFPAY ==
[2025-04-27 17:59] VITALS: BP 141/59; PULSE 93; RESP 18; TEMP 36; O2SAT 100
[2025-04-27 18:56] LABS: Hematocrit 34.2 % (37-47); Hemoglobin 10.8 g/dL (12.0-15.0); Immature Granulocytes Count 0.020 X10^3/uL (0.0-0.0); Mean Corp Hgb Conc 31.6 g/dL (32-36); Mean Corpuscular Volume 93.7 fL (81-99); Mean Platelet Vol. 11.1 fl (6.2-12.0); NRBC Flagged by Analyzer 0 % (0-5); Platelet Count 268 K/mm3 (150-450); RBC Distribution Width CV 14.3 % (11.6-14.6); RBC Distribution Width SD 49.2 fl (35.1-43.9); Red Blood Count 3.65 M/mm3 (4.2-5.4); White Blood Count 8.0 K/mm3 (4.4-11.0)
[2025-04-27 19:18] LABS: Lipase 11 U/L (13-75)
[2025-04-27 19:20] LABS: AST(SGOT) 25 U/L (<=31); Alanine Aminotransfer ALT/SGPT < 5 U/L (<=34); Albumin, Serum 2.7 g/dL (3.4-4.8); Alkaline Phosphatase 127 U/L (35-104); Anion Gap 12 (5-15); BUN 9 mg/dL (4-19); BUN/Creat Ratio 11.7 RATIO (10-20); Calcium,Total 8.8 mg/dL (7.6-11.0); Carbon Dioxide 20.9 mmol/L (21.0-32.0); Chloride 102 mmol/L (98-108); Globulin 4.4 g/dL (2.2-4.2); Glucose 104 mg/dL (70-99); Potassium 4.3 mmol/L (3.3-5.1)
--- NOTE | 2025-04-27 19:30 | RAD_ITS ---
PROCEDURE: ACUTE ABDOMEN INC CHEST 04/27/2025 REASON FOR EXAM: ABDOMINAL PAIN, CONSTIPATION, DISTENTION TECHNIQUE: Procedure Code: RADABDCA Modality: DX Procedure: ACUTE ABDOMEN INC CHEST COMPARISON: 10/28/2024 CTA. FINDINGS: The heart is normal in size. The lungs are clear. No acute osseous abnormalities. Left axillary surgical clips. Nonspecific nonobstructive bowel gas pattern. Dense colonic stool indicating constipation. No suspicious calcifications. No evidence of subdiaphragmatic free air. RAD/Acute Abdomen Inc Chest IMPRESSION: Constipation. Reading Location: [id number]
--- NOTE | 2025-04-27 19:38 | EDS_ITS ---
HPI History of Present Illness Chief Complaint: Constipation Detail of Chief Complaint: Lack of appetite, nausea, no bowel movement for 10 days Informant: patient Onset/Context/Timing Onset: Weeks (1.5) Context: Sudden Onset Timing: Continuous and Waxes and wanes Quality: Anorexia, food does not taste well, nausea without vomiting and constipatio Location: GI Current Severity: Mild Maximum Severity: Moderate Worsened by: Attempt to eat or drink anything Relieved by: Nothing in patient has tried multiple things Associated Symptoms Associated Symptoms: Slight abdominal distention/discomfort Narrative Narrative: Patient is an 84-year-old woman. She has history of peptic ulcer disease with GI bleed, lymphedema, hiatal hernia, BMI 30-39.9. History of breast cancer, history of superficial venous thrombosis left lower extremity, DVT of both the right and left leg, type 2 diabetes with circulatory complications, GERD, pure hypercholesterolemia and essential hypertension. She also has history of failure to thrive. She presents because she has no appetite because everything tastes poor. She has had very little to eat. She is only had tea today. She does not recall what she had yesterday. She may have had a yogurt. She denies decreased or increased urination. She denies dysuria, frequency, urgency or hematuria. She does endorse nausea without vomiting. She has not had a bowel movement 10 days. She also complains of some mild abdominal discomfort. Family is concerned because she has a diagnosis of peptic ulcer disease. She has not had black or maroon-colored stool, however. She is not bruising easily. She has had no fever or chills. She has had some weight loss because she is not eating. She denies night sweats. She does have swelling of her legs which is chronic and not out of the ordinary for her. She had a placenta graft placed because of a chronic wound left lower extremity. Prior similar symptoms: No Recent Illness/Hospitalization: No PFSH [facility] Medical History Ulcer of left lower extremity with fat layer exposed Non-pressure chronic ulcer of left calf with fat layer exposed Dysuria Acute blood loss anemia Adverse drug reaction History of breast cancer Mass of left axilla Encounter for education Regional lymph node metastasis present Glaucoma Loss of hearing Wears glasses Cancer Pressure ulcer Fatty liver History of IBS Leg cramps Cellulitis Venous ulcer of left leg Venous ulcer of right leg Chronic ulcer of left lower extremity Hiatal hernia Venous hypertension, chronic, with inflammation Chronic venous insufficiency Leg wound, left Nodular goiter Wears dentures Post-menopausal Diabetes Ambulates with cane Arthritis Back pain Loss of consciousness History of hiatal hernia Gastric reflux Shortness of breath on exertion History of edema History of echocardiogram History of stress test Hypertension Cardiology follow-up encounter History of bleeding ulcers Choledocholithiasis Peripheral arterial disease Osteoporosis GI bleed Non-smoker DVT (deep venous thrombosis) Abdominal pain Pure hypercholesterolemia Essential hypertension Pressure ulcer of right buttock, stage 3 Decubitus ulcer of left buttock, stage 2 Venous stasis ulcer Hiatal hernia Edema of both legs Osteoarthritis GERD (gastroesophageal reflux disease) Abnormal exercise myocardial perfusion study Palpitations Atherosclerotic heart disease of [place] coronary artery without angina pectoris Leg swelling Hyperpigmentation of skin Lipodermatosclerosis Chronic venous hypertension (idiopathic) with inflammation of bilateral lower extremity Localized edema Generalized weakness Hypertension Chronic venous hypertension (idiopathic) with ulcer of left lower extremity Chronic venous stasis dermatitis Non-pressure chronic ulcer of left ankle with fat layer exposed Cellulitis of left leg Failure to thrive Positional vertigo Ulcer Obesity Hx of venous thrombosis and embolism history of cellulitis of leg Home Medications Medication Instructions Recorded Last Taken Type potassium chloride 10 mEq 10 meq PO PRN PRN HYPOKALEMI A 10/11/19 12/18/23 History capsule,extended release meclizine 25 mg tablet 25 mg PO DAILY PRN Vertigo 0 08/12/21 Unknown History latanoprost 0.005 % eye drops 1 drp ophthalmic (eye) Q PM eye 05/24/23 10/27/24 History drops torsemide 20 mg tablet 20 mg PO DAILY PRN PRN Edema 10/27/23 Unknown History irbesartan 75 mg tablet 75 mg PO DAILY blood pressur e 01/29/24 10/27/24 History hydrocortisone 2.5 % topical cream 1 applic topical DA GARY PRN itching 10/28/24 10/26/24 History pantoprazole 40 mg tablet,delayed 40 mg PO BID 90 days #180 tabs 10/31/24 Unknown Rx release (Protonix) sucralfate 1 gram tablet 1 g PO BID 6 weeks #84 tabs 10/31/24 Unknown Rx Held on 02/20/25. Instructions: Order Completed anastrozole 1 mg tablet 1 mg PO DAILY #90 tabs 12/23 Unknown Rx cefpodoxime 100 mg tablet 100 mg PO BID #14 tabs 01/21 Unknown Rx famotidine 20 mg tablet 20 mg PO BID 02/20/25 Unknow n History fluorouracil 5 % topical cream 1 applic topical BID Unknown History hydroxyzine HCl 10 mg tablet 10 mg PO TID itch 5 Unknown History rivaroxaban 10 mg tablet (Xarelto) 10 mg PO DAILY 02/03 01/27 Unknown History ursodiol 250 mg tablet 250 mg PO DAILY 90 days #90 tabs 03/03/25 Unknown Rx ascorbic acid (vitamin C) 500 mg 500 mg PO QDAY Unknown History tablet ferrous sulfate 325 mg (65 mg 325 mg PO QDAY 03/24/25 Unknown History iron) tablet Allergy/AdvReac Type Severity Reaction Status Date / Time neomycin sulfate (From Allergy Severe Itching Verified 04/27/25 17:59 Neosporin ([id number])) benzethonium chloride (From Allergy Unknown unknown Verified 04/27/25 17:59 Lanacane [place]) benzocaine (From Lanacane Allergy Unknown unknown Verified 04/27/25 17:59 [place]) levofloxacin (From Levaquin) Allergy Unknown Rash Verified 04/27/25 17:59 cefdinir Allergy Other Verified 04/27/25 17:59 ezetimibe (From Zetia) Allergy Itching Verified 04/27/25 17:59 neomycin (Neomycin) Allergy "gets in Verified 04/27/25 17:59 blood stream and pass out" polymyxin B (Polymyxin B) Allergy Unknown Verified 04/27/25 17:59 Sulfa (Sulfonamide Allergy Unknown Verified 04/27/25 17:59 Antibiotics) tetracycline (Tetracycline) Allergy Itching Verified 04/27/25 17:59 adhesive tape AdvReac Severe skin Verified 04/27/25 17:59 pulling lisinopril AdvReac Intermediate cough Verified 04/27/25 17:59 cephalexin AdvReac Mild Other Verified 04/27/25 17:59 atorvastatin calcium (From AdvReac Pain in Verified 04/27/25 17:59 Lipitor) joints, muscle damage Family History Mother CAD (coronary artery disease) Myocardial infarction Son Hypertension Brother AAA (abdominal aortic aneurysm) Father Diabetes Heart disease CAD (coronary artery disease) Liver disease Other Arthritis Bleeding disorder Blood clot in vein Bowel disease Cancer H/O ulcer disease Osteoporosis Severe allergy Surgical History Hx of breast surgery History of foot surgery History of ERCP History of cholecystectomy History of hernia repair History of left heart catheterization (06/14/13) H/O dilation and curettage Lipoma History of tubal ligation History of cataract surgery Rectal fistula Social History household members: none housing: house current occupational status: employed Smoking Status: Never smoker alcohol intake: never substance use type: does not use caffeine: Yes Type: coffee Number of servings: 3 what type of physical activity do you participate in: none seatbelt use: always do you feel safe at home: Yes ROS ROS ED Constitutional Constitutional ED: Reports weight loss; Denies chills, fever(s), subjective or sweats Eyes Eyes: Denies blurry vision, change in vision or diplopia ENT ENT ED: Denies ear pain, rhinorrhea or sore throat Cardiovascular Cardiovascular: Denies chest pain, palpitations, paroxysmal nocturnal dyspnea or racing heartbeat Respiratory/Chest Respiratory/Chest: Denies cough, dyspnea, dyspnea on exertion or paroxysmal nocturnal dyspnea Gastrointestinal Gastrointestinal: Reports abdominal pain, constipation and nausea; Denies diarrhea, melena or vomiting Genitourinary Genitourinary ED: Denies dysuria, hematuria or urinary frequency Musculoskeletal Musculoskeletal: Denies arthralgias, myalgias or neck pain Integumentary Denies rash Neurologic Neurologic: Reports weakness; Denies headache(s) or paresthesias Psychiatric Psychiatric: Reports depression; Denies anxiety Hematologic/Lymphatic Hematologic/Lymphatic: Reports systems reviewed and no addt'l complaints, except as documented EXAM Physical Exam Const Vital Signs: 04/27/25 17:59 04/27/25 19:58 Temperature 96.8 F L Temperature Source Temporal Pulse Rate 93 64 Respiratory Rate 18 20 H Blood Pressure 141/59 H 136/76 H Blood Pressure Mean 86 96 Pulse Ox 100 100 Oxygen Delivery Method Room Air Room Air Positive well nourished and well developed General Appearance ED: well developed, NAD and pallor HEENT Reports moist mucous membranes HEENT Narrative: Head is atraumatic and normocephalic. Ears normal. Nares patent. Posterior pharynx without erythema or exudate. Uvula midline. No deviation tongue or protrusion. Eyes PERRL and EOMs intact bilaterally General Eye ED: Negative for pale conjunctiva or scleral icterus Neck no lymphadenopathy, supple and no JVD Neck Narrative: Limited due to body habitus Resp normal respiratory effort and clear to auscultation bilaterally Cardio regular rate, regular rhythm, S1 normal heart sound, S2 normal heart sound and no murmurs GI no masses; Negative for non-tender, non-distended or hepatosplenomegaly GI Narrative: There is slight tympany to percussion. Bowel sounds are diminished. Patient has remanence of prior hemorrhoids, sentinel tags. There is no blood noted. Is no fissures or fistulas noted. Stool is brown. There is no fecal matter in the rectal vault on digital exam. She is complaining some discomfort, however. Inspection: abdominal distention Palpation: soft Back/Spine no CVA tenderness Extremity Negative for normal to inspection General Extremety ED: Yes edema General Extremity: edema Neuro oriented x3 and CN's II-XII intact bilaterally Sensorium / Orientation: alert Psych mental status grossly normal Skin no rashes or lesions noted and no wounds General Skin Exam: pallor; Negative for elasticity normal or jaundice MDM MDM MDM Narrative Medical decision making narrative: Differential diagnosis is failure to thrive, malignancy, electrolyte abnormality, chronic abdominal pain. Apparently she does have history of pancreatitis according to [facility] member. Will obtain a lipase as well as appropriate blood work i.e. CBC with differential, comprehensive metabolic panel to assess electrolytes, renal function, glucose, liver enzymes. History & Record Review Additional record(s) reviewed:: Prior outpatient record, Prior ED visit and Prior labs Lab Data Attestation: I reviewed the patient's lab results. Lab results narrative: CBC reveals mild anemia with normal indices. Competence of metabolic panel reveals slight decrease in CO2 of 20.9 with a normal anion gap. Glucose is slightly elevated 104. Liver enzymes are unremarkable. Albumin is low at 2.7. Labs: Laboratory Results - last 24 hr 04/27/25 18:50 WBC 8.0 RBC 3.65 L Hgb 10.8 L Hct 34.2 L MCV 93.7 MCH 29.6 MCHC 31.6 L RDW Std Deviation 49.2 H RDW Coeff of Mihir 14.3 Plt Count 268 MPV 11.1 Immature Gran % (Auto) 0.300 Neut % (Auto) 56.2 Lymph % (Auto) 34.0 [place] % (Auto) 8.2 Eos % (Auto) 0.8 Baso % (Auto) 0.5 Absolute Neuts (auto) 4.5 Absolute Lymphs (auto) 2.71 Nucleated RBC % 0 Sodium 135 Potassium 4.3 Chloride 102 Carbon Dioxide 20.9 L Anion Gap 12 BUN 9 Creatinine 0.79 Est GFR (MDRD) Non-Af 73 BUN/Creatinine Ratio 11.7 Glucose 104 H Calcium 8.8 Total Bilirubin 0.53 AST 25 ALT < 5 Alkaline Phosphatase 127 H Total Protein 7.1 Albumin 2.7 L Globulin 4.4 H Albumin/Globulin Ratio 0.6 L Lipase 11 L Radiography Chest X-Ray - ED: Read by ED Physician (3 view abdominal series reveals significant mount of fecal stasis. There is no pneumoperitoneum. There is no evidence of any abnormality of the lung parenchyma. Cardiac silhouette size normal. Osseous structures with no acute process.) Discharge Plan Triage Chief Complaint: Constipation ED Provider: Eladio Mai Dx/Rx/DC Orders Clinical Impression: Obstipation, Hypertension, Anticoagulant long-term use, Anemia, unspecified, Hypoalbuminemia, Lymphedema associated with obesity Instructions: ED Constipation (Adult) Prescriptions: No Action potassium chloride 10 mEq capsule, extended release 10 meq PO PRN PRN (Reason: HYPOKALEMIA) Patient Comments: 1 tab when takes diuretic latanoprost 0.005 % drops 1 drp ophthalmic (eye) QPM irbesartan 75 mg tablet 75 mg PO DAILY anastrozole 1 mg tablet 1 mg PO DAILY Qty: 90 3RF ascorbic acid (vitamin C) 500 mg tablet 500 mg PO QDAY ferrous sulfate 325 mg (65 mg iron) tablet 325 mg PO QDAY Patient Comments: Pt takes off and on cefpodoxime 100 mg tablet 100 mg PO BID Qty: 14 0RF Rx Instructions: must administer with a meal/food torsemide 20 mg tablet 20 mg PO DAILY PRN PRN (Reason: Edema) meclizine 25 mg Tablet 25 mg PO DAILY PRN (Reason: Vertigo) hydrocortisone 2.5 % cream 1 applic topical DAILY PRN (Reason: itching) pantoprazole [Protonix] 40 mg tablet,delayed release (DR/EC) 40 mg PO BID 90 Days Qty: 180 3RF sucralfate 1 gram tablet 1 g PO BID 42 Days Qty: 84 0RF fluorouracil 5 % cream 1 applic topical BID famotidine 20 mg tablet 20 mg PO BID hydroxyzine HCl 10 mg tablet 10 mg PO TID Xarelto 10 mg tablet 10 mg PO DAILY ursodiol 250 mg tablet 250 mg PO DAILY 90 Days Qty: 90 2RF Primary Care Provider: Reny Live Referrals: Reny Live, [employer] [Primary Care Provider, Internal Medicine] - 3-5 Days if not improving Activity Restrictions/Additional Instructions: Tomorrow morning drink 10 ounces of mag citrate. 4 hours after you drink the mag citrate 1 capful of MiraLAX and a full glass of your favorite beverage. Repeat 1 cap of MiraLAX in your favorite beverage every 1-2 hours until you start to have results. Print Language: Upper Sorbian Disposition Disposition: Home, Self Care
[2025-04-27 19:58] VITALS: BP 136/76; PULSE 64; RESP 20; O2SAT 100
[2025-04-27 20:18] VITALS: BP 136/76; PULSE 76; RESP 13; TEMP 36.4; O2SAT 100
== END 2025-04-27 20:22 | disposition home or self-care (01) ==
PROVIDERS: Emergency Provider Emergency Medicine; PCP Nurse Practitioner Family; Visit Provider Emergency Medicine
DX: K59.00 Constipation, unspecified (principal); Z86.718 Personal history of other venous thrombosis and embolism; R63.0 Anorexia; I10 Essential (primary) hypertension; I25.10 Atherosclerotic heart disease of native coronary artery without angina pectoris; E78.00 Pure hypercholesterolemia, unspecified; E88.09 Other disorders of plasma-protein metabolism, not elsewhere classified; D64.9 Anemia, unspecified; R14.0 Abdominal distension (gaseous); Z79.01 Long term (current) use of 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s; R11.0 Nausea; Z85.3 Personal history of malignant neoplasm of breast; Z90.49 Acquired absence of other specified parts of digestive tract; Z98.51 Tubal ligation status; R10.9 Unspecified abdominal pain; R53.1 Weakness; R63.4 Abnormal weight loss; F32.A Depression, unspecified; E66.9 Obesity, unspecified; I89.0 Lymphedema, not elsewhere classified; Z68.39 Body mass index [BMI] 39.0-39.9, adult; Z87.11 Personal history of peptic ulcer disease
CPT/HCPCS: 74022; 80053; 83605; 83690; 85025; 99284; A4216

== ENCOUNTER 2025-05-26 10:30 | Outpatient (RCR) | payer MEDICARE, OTHER, SELFPAY ==
[2025-05-05 11:18] VITALS: BP 138/72; PULSE 94; RESP 16; TEMP 36.2
[2025-05-08 09:37] VITALS: BP 156/71; PULSE 83; RESP 18; TEMP 36.1
--- NOTE | 2025-05-08 10:53 | PN.PCM_ITS ---
History of Present Illness Date of Service: 05/08/25 Chief Complaint: Left lower extremity ulceration History of Wound: Ms. Soares is an 84-year-old who is a [place] of care [place]. Had previously seen podiatry/wound care here. Being seen for lower extremity ulcerations. Chronic history of venous stasis/venous ulcerations. Also follows up with vascular recently had studies done. Difficulty with compression compliance due to other chronic morbidities/factors. Also very largely sedentary sitting in a chair most of the day. Had an Unna boot on which she did not tolerate as well, she states that it felt too tight this time but had tolerated the first time it was applied 2 weeks prior. History of diabetes mellitus which is well-controlled, currently not on medication for this. She states that she feels well otherwise. Appetite is good. No chills, fever or new concerns reported. Progress of Wound: Left medial leg ulcer is healed after 4 applications of EpiFix however, presents with new right and left lower extremity ulcerations which started out as blisters. Took off her Unna boot a week ago because it felt tight. Did not put on any other form of compression. She states that she had CircAid's at home. Objective Data Objective Data Vital Signs: Vital Signs Temp Pulse Resp BP O2 Del Method 97 F L 83 18 156/71 H Room Air 05/08/25 09:37 05/08/25 09:37 05/08/25 09:37 05/08/25 09:37 05/08/25 09:37 Oxygen Delivery Method Room Air Charges/Coding Procedures Integumentary 111xxx-113xx: [id number] Yasmeen bone 20 sq cm/< Add On Codes: 07639 Yasmeen subq tissue add-on (x1 additional square centimeter debrided, please refer to clinical note) Physical Exam Const alert, oriented x3 and no apparent distress General Appearance: cooperative and comfortable HEENT normocephalic, head/scalp atraumatic and hearing grossly normal bilaterally Eyes EOMs intact bilaterally General Eye: normal appearance of both eyes Neck full ROM General: normal visual inspection Resp normal respiratory effort Effort and Inspection: able to speak in complete sentences Extremity General Extremity: edema Skin Wounds: wounds noted size Size: See Clinical note, bed granulating well, margins well approximated, no odor and open Neuro oriented x3, CN's II-XII intact bilaterally, moves all extremities and no focal motor deficits Psych mental status grossly normal, thought process normal, cooperative and affect normal Debridement Note Debridement Note Wound debrided: Right lower extremity cluster Type of Debridement: Excisional debridement Anesthesia Used: 5% Lidocaine Gel Depth: Down to and including healthy tissue and in the subcutaneous layer Percentage of wound debrided: 100 Instrument Used: 5mm curette Tissue Removed: Devitalized tissue Severity: Fat Layer Exposed Amount of bleeding with debridement: Mild Bleeding Controlled with: Pressure Patient tolerated procedure: Patient tolerated procedure well Post-Debridement Measurements and Additional Note: Post-Debridement Measurements/Treatment - Nurse 1 - General Ulcer Assessment Start: 05/05/25 11:18 Freq: Status: Active Protocol: JEAN [email or web address] Activity Type Activity Date Activity User E-sign Co-sign Detail Recorded Client Recorded Date Recorded By Document 05/05/25 11:18 [id number] 05/05/25 11:20 Document 05/08/25 09:37 [id number] 05/08/25 09:42 05/05/25 05/08/25 11:18 09:37 - Today's Visit Information Type of service Nurse-only Follow-up Visit Visit (Physician/PHYSICIAN SPECIALIST ) Arrival Mode Ambulatory, Wheelchair Stretcher Transfer Assistance Manual None Accompanied by DAUGHTER Patient Identification Verified (Name & Yes Yes ) Patient Requires Transmission-Based No No Precautions Vital Signs Temperature (97.8 F-99.1 F) 97.2 F L 97 F L Temperature Source Temporal Temporal Pulse Rate (60-100) 94 83 Pulse Location Monitor Monitor Respiratory Rate (12-18) 16 18 Respiratory rate source Observation Observation Oxygen Delivery Method Room Air Blood Pressure (90/60-120/80) 138/72 H 156/71 H Blood Pressure Mean (mm Hg) 94 99 Source Monitor Monitor Position Semi-Fowlers Semi-Fowlers Blood Pressure Location Right Arm Left Arm History Since Last Visit- (Skip if this is Patient's initial visit) Have you changed medications since your Yes No last visit? Any new allergies or adverse reactions No Had a fall/change in ADL's that may No increase risk of falls Signs or symptoms of abuse and/or No neglect since last visit Have you been in the hospital since your No last visit? Has dressing in place as prescribed Yes Has compression in place as prescribed Yes Has offloadiing in place as prescribed N/A Experienced any changes in pain level or No management Left Footwear Regular Shoe Right Footwear Regular Shoe Pain Scale: 0-10 Numeric Is Patient Pain Free? Yes Yes WC - Nurse 1 - General Ulcer Measurement Start: 05/05/25 11:18 Freq: Status: Active Protocol: Activity Type Activity Date Activity User E-sign Co-sign Detail Recorded Client Recorded Date Recorded By Document 05/05/25 11:18 JF [id number] 05/05/25 11:20 JF Document 05/08/25 09:37 GM [id number] 05/08/25 09:42 GM 05/05/25 05/08/25 11:18 09:37 Wound Center Nurse 1 #15 RLE lateral -Combined with other wound No -Current Size (cm) - Length 6 -Current Size (cm) - Width 6 -Current Size (cm) - Depth 0.1 -Total Square Cm 36 -Date of Last Picture (Recall this 05/08/25 field) -Photo Taken Yes -Exudate Amt Medium -Exudate Type Serosanguineous -Wound Margin Flat & Intact -Granulation Amt Small (1-33%) -Granulation Quality [place],Red -Slough/Fibrin Yes -Necrosis Amt Small (1-33%) -Necrotic Tissue Type Adherent Slough -Structure Exposed N/A -Texture (Leslye-wound Skin Appearance) Assessed, Excoriation -Moisture (Leslye-wound Skin Appearance) Assessed,Dry/ Scaly -Color (Leslye-wound Skin Appearance) No Abnormality, Erythema -Temperature (Leslye-wound Skin No Abnormality Appearance) (Pt Warm) -Tenderness on Palpation (Leslye-wound No Skin Appearance) -Ulcer Cleansing Soap and Water -Foul Odor after Cleansing No -Anesthetic Used 5% Lidocaine Gel Lower Limb Edema Present Yes Yes Right Calf (cm) 44.5 40.5 Right Ankle (cm) 30.8 28.4 Point of Measurement (cm from the distal 43.5 point) Left Calf (cm) 48.5 Point of measurement (cm from the medial 23.5 instep) Left Ankle (cm) 24.0 WC - Nurse 2 - General Ulcer CM Notes Start: 05/05/25 11:18 Freq: Status: Active Protocol: Activity Type Activity Date Activity User E-sign Co-sign Detail Recorded Client Recorded Date Recorded By Document 05/08/25 09:56 (2) [id number] 05/08/25 10:05 GM(2) 05/08/25 09:56 Wound Center Nurse 2 L Posterior leg -Time 10:03 -Correct Patient Yes -Correct Side, Site, Position Yes -Correct Procedure Yes -Procedure Performed Yes -Type of Procedure Debridement -Clinical Debridement Subcutaneous -Tissue Removed Subcutaneous -Post Debridement (cm) - Length 1.2 -Post Debridement (cm) - Width 1.5 -Post Debridement (cm) - Depth 0.1 -Total Square (Post) (cm) 1.80 -Area of Debridement (cm) - Length 1.2 -Area of Debridement (cm) - Width 1.5 -Total Square (Area) (cm) 1.80 -Tunneling No -Undermining/Tunneling No -Circular Undermining No -Wound/Ulcer Outcome Not Healed -Ulcer Cleansing Rinsed/ Irrigated with Saline -Foul Odor after Cleansing No -Bioengineered Tissue No -Bleeding Controlled with Pressure -Treatment Response Procedure Tolerated Well -Offloading No -Debridement - Subq, 1st 20sq cm No #15 RLE lateral -Time 09:56 -Correct Patient Yes -Correct Side, Site, Position Yes -Correct Procedure Yes -Procedure Performed Yes -Type of Procedure Debridement -Clinical Debridement Subcutaneous -Tissue Removed Subcutaneous -Post Debridement (cm) - Length 9.0 -Post Debridement (cm) - Width 6.0 -Post Debridement (cm) - Depth 0.1 -Total Square (Post) (cm) 54.00 -Area of Debridement (cm) - Length 9.0 -Area of Debridement (cm) - Width 6.0 -Total Square (Area) (cm) 54.00 -Tunneling No -Undermining/Tunneling No -Circular Undermining No -Wound/Ulcer Outcome Not Healed -Ulcer Cleansing Rinsed/ Irrigated with Saline -Foul Odor after Cleansing No -Bioengineered Tissue No -Bleeding Controlled with Pressure -Treatment Response Procedure Tolerated Well -Offloading No -Debridement - Subq, 1st 20sq cm Yes -Debridement, SubQ, ea addt'l 20sq cm 2 or part thereof #1 Left Medial Lower Extremity -Time 09:56 -Correct Patient Yes -Correct Side, Site, Position Yes -Correct Procedure No -Procedure Performed No -Wound/Ulcer Outcome Healed- Epithelialized -Ulcer Cleansing Not Cleansed -Foul Odor after Cleansing No -Bioengineered Tissue No -Offloading No -Debridement - Subq, 1st 20sq cm No Pain Scale: 0-10 Numeric Is Patient Pain Free? Yes - Nurse 3 - General Ulcer D/C NN Start: 05/05/25 11:18 Freq: Status: Active Protocol: Activity Type Activity Date Activity User E-sign Co-sign Detail Recorded Client Recorded Date Recorded By Document 05/05/25 11:18 [id number] 05/05/25 11:20 Document 05/08/25 10:32 [id number] 05/08/25 10:37 05/05/25 05/08/25 11:18 10:32 Pain Scale: 0-10 Numeric Is Patient Pain Free? Yes Yes Wound Care Center Nurse 3 L Posterior leg -Ulcer Cleansing Rinsed/ Irrigated with Saline -Foul Odor after Cleansing No -Negative Pressure Wound Therapy N/A -Primary Dressing Applied Aquacel Extra -Other Dressing ABD -Primary Dressing Covered/Secured with Dry Gauze & Roll Gauze -Aquacel Extra 0 -Silicone Border Foam 4x4 0 #15 RLE lateral -Ulcer Cleansing Rinsed/ Irrigated with Saline -Foul Odor after Cleansing No -Negative Pressure Wound Therapy N/A -Primary Dressing Applied Aquacel Extra -Other Dressing ABD -Primary Dressing Covered/Secured with Dry Gauze & Roll Gauze -Patient Supplied Dressing Yes -Aquacel Extra 0 #1 Left Medial Lower Extremity -Ulcer Cleansing Rinsed/ Rinsed/ Irrigated with Irrigated with Saline Saline -Foul Odor after Cleansing No -Negative Pressure Wound Therapy N/A -Primary Dressing Applied Aquacel Extra NonAdherent Contact Layer, Silicone Border Foam 4x4 -Primary Dressing Covered/Secured with Dry Gauze & Dry Gauze & Roll Gauze, Roll Gauze Secured with Tape -Patient Supplied Dressing Yes -Aquacel Extra 0 -Silicone Border Foam 4x4 1 BLE -Multi-Layered Wrap Application Unna Boot - Unna Boot - Bilateral Bilateral -Unna- Bilat (Qty applied) 1 1 Treatment Response Procedure Tolerated Well - Visit Discharge Discharge Condition Stable Stable Ambulatory Status Ambulatory, Walker Wheelchair Transportation Private Auto Private Auto Accompanied by DAUGHTER daughter Medication Reconcilliation completed & No provided to patient/care provider Clinical Summary of Care Provided Yes Additional Wound Wound debrided: Left posterior (calf) Type of Debridement: Excisional debridement Anesthesia Used: 5% Lidocaine Gel Depth: Down to and including healthy tissue and in the subcutaneous layer Percentage of wound debrided: 100 Instrument Used: 5mm curette Tissue Removed: Devitalized tissue Severity: Fat Layer Exposed Amount of bleeding with debridement: Mild Bleeding Controlled with: Pressure Patient tolerated procedure: Patient tolerated procedure well Assessment/Plan Assessment/Plan (1) Ulcer of left lower extremity with fat layer exposed: CODE(S): L97.922 - Non-pressure chronic ulcer of unspecified part of left lower leg with fat layer exposed (2) Lymphedema: CODE(S): I89.0 - Lymphedema, not elsewhere classified (3) Non-pressure chronic ulcer of left calf with fat layer exposed: CODE(S): L97.222 - Non-pressure chronic ulcer of left calf with fat layer exposed (4) Chronic venous insufficiency: CODE(S): I87.2 - Venous insufficiency (chronic) (peripheral) (5) Lipodermatosclerosis of both lower extremities: CODE(S): M79.3 - Panniculitis, unspecified (6) Type 2 diabetes mellitus without complications: CODE(S): E11.9 - Type 2 diabetes mellitus without complications (7) Ulcer of right lower extremity with fat layer exposed: CODE(S): L97.912 - Non-pressure chronic ulcer of unspecified part of right lower leg with fat layer exposed PLAN: Plan Debridement done as documented above, procedure was well-tolerated. As above, new areas of ulceration which started after she took off her Unna boot. Did not utilize any other form of compression in over a week. Left medial area of ulceration has healed after 4 applications of EpiFix, no new concerns in that regard. To open areas, Aquacel, Adaptic and foam dressing. Leave in place until nurse visit on Monday. She is open to reapplying Unna boots again. Strongly advised that she comply with compression, leg elevation and exercise as tolerated. Continue other chronic wound care measures as previously discussed. She was advised to call with any questions or concerns. Follow-up on Monday for nurse visit and in 1 week with me. This note was generated with [employer] software. It may contain incorrect words, spelling, and punctuation that were not noted in checking the note before signing.
--- NOTE | 2025-05-09 09:15 | WC ---
PHOTO-RLE LATERAL 05/08/25
[2025-05-12 11:40] VITALS: BP 153/80; PULSE 84; RESP 16; TEMP 35.8
[2025-05-15 09:29] VITALS: BP 160/100; PULSE 83; RESP 18; TEMP 36
--- NOTE | 2025-05-15 10:53 | PCM.WC.PN ---
History of Present Illness Date of Service: 05/15/25 Chief Complaint: Left lower extremity ulceration History of Wound: Ms. Soares is an 84-year-old who is a transfer of care to [place]. Had previously seen podiatry/wound care here. Being seen for lower extremity ulcerations. Chronic history of venous stasis/venous ulcerations. Also follows up with vascular recently had studies done. Difficulty with compression compliance due to other chronic morbidities/factors. Also very largely sedentary sitting in a chair most of the day. Had an Unna boot on which she did not tolerate as well, she states that it felt too tight this time but had tolerated the first time it was applied 2 weeks prior. History of diabetes mellitus which is well-controlled, currently not on medication for this. She states that she feels well otherwise. Appetite is good. No chills, fever or new concerns reported. Progress of Wound: Left medial lower extremity ulceration stays healed. Right lower extremity and left calf with some improvement since her last visit. No acute concerns reported. Objective Data Objective Data Vital Signs: Vital Signs Temp Pulse Resp BP O2 Del Method 96.8 F L 83 18 160/100 H Room Air 05/15/25 09:29 05/15/25 09:29 05/15/25 09:29 05/15/25 09:29 05/15/25 09:29 Oxygen Delivery Method Room Air Charges/Coding Procedures Integumentary 111xxx-113xx: [id number] Yasmeen subq tissue 20 sq cm/< Physical Exam Const alert, oriented x3 and no apparent distress General Appearance: cooperative and comfortable HEENT normocephalic, head/scalp atraumatic and hearing grossly normal bilaterally Eyes EOMs intact bilaterally General Eye: normal appearance of both eyes Neck full ROM General: normal visual inspection Resp normal respiratory effort Effort and Inspection: able to speak in complete sentences Extremity General Extremity: edema Skin Wounds: wounds noted size Size: See Clinical note, bed granulating well, margins well approximated, no odor and open Neuro oriented x3, CN's II-XII intact bilaterally, moves all extremities and no focal motor deficits Psych mental status grossly normal, thought process normal, cooperative and affect normal Debridement Note Debridement Note Wound debrided: Right lower extremity (cluster) Type of Debridement: Excisional debridement Anesthesia Used: 5% Lidocaine Gel Depth: Down to and including healthy tissue and in the subcutaneous layer Percentage of wound debrided: 100 Instrument Used: 5mm curette Tissue Removed: Slough and devitalized tissue Severity: Fat Layer Exposed Amount of bleeding with debridement: Mild Bleeding Controlled with: Pressure Patient tolerated procedure: Patient tolerated procedure well Post-Debridement Measurements and Additional Note: Post-Debridement Measurements/Treatment WC - Nurse 1 - General Ulcer Assessment Start: 05/05/25 11:18 Freq: Status: Active Protocol: JEAN [email or web address].KVNG Activity Type Activity Date Activity User E-sign Co-sign Detail Recorded Client Recorded Date Recorded By Document 05/05/25 11:18 JF [id number] 05/05/25 11:20 JF Document 05/08/25 09:37 GM [id number] 05/08/25 09:42 GM Document 05/12/25 11:40 TS [id number] 05/12/25 12:12 TS Document 05/15/25 09:29 RB [id number] 05/15/25 09:49 RB 05/05/25 05/08/25 05/12/25 11:18 09:37 11:40 WC - Today's Visit Information Type of service Nurse-only Follow-up Visit Nurse-only Visit (Physician/RETAIL BUSINESS DEVELOPMENT MANAGER Visit ) Arrival Mode Ambulatory, Wheelchair Wheelchair Stretcher Transfer Assistance Manual None Accompanied by DAUGHTER Patient Identification Verified (Name & Yes Yes Yes ) Patient Requires Transmission-Based No No No Precautions Safety Precautions Fall Prevention Vital Signs Temperature (97.8 F-99.1 F) 97.2 F L 97 F L 96.4 F L Temperature Source Temporal Temporal Temporal Pulse Rate (60-100) 94 83 84 Pulse Location Monitor Monitor Monitor Respiratory Rate (12-18) 16 18 16 Respiratory rate source Observation Observation Observation Oxygen Delivery Method Room Air Room Air Blood Pressure (90/60-120/80) 138/72 H 156/71 H 153/80 H Blood Pressure Mean (mm Hg) 94 99 104 Source Monitor Monitor Monitor Position Semi-Fowlers Semi-Fowlers Sitting Blood Pressure Location Right Arm Left Arm Left Arm History Since Last Visit- (Skip if this is Patient's initial visit) Have you changed medications since your Yes No No last visit? Any new allergies or adverse reactions No No Had a fall/change in ADL's that may No No increase risk of falls Signs or symptoms of abuse and/or No No neglect since last visit Have you been in the hospital since your No No last visit? Has dressing in place as prescribed Yes Yes Has compression in place as prescribed Yes Yes Has offloadiing in place as prescribed N/A N/A Experienced any changes in pain level or No No management Left Footwear Regular Shoe Regular Shoe Right Footwear Regular Shoe Regular Shoe Pain Scale: 0-10 Numeric Is Patient Pain Free? Yes Yes Yes 05/15/25 09:29 WC - Today's Visit Information Type of service Follow-up Visit (Physician/RETAIL BUSINESS DEVELOPMENT MANAGER ) Arrival Mode Cane Transfer Assistance None Accompanied by Patient Identification Verified (Name & Yes ) Patient Requires Transmission-Based No Precautions Safety Precautions Vital Signs Temperature (97.8 F-99.1 F) 96.8 F L Temperature Source Temporal Pulse Rate (60-100) 83 Pulse Location Monitor Respiratory Rate (12-18) 18 Respiratory rate source Observation Oxygen Delivery Method Room Air Blood Pressure (90/60-120/80) 160/100 H Blood Pressure Mean (mm Hg) 120 Source Monitor Position Semi-Fowlers Blood Pressure Location Right Arm History Since Last Visit- (Skip if this is Patient's initial visit) Have you changed medications since your No last visit? Any new allergies or adverse reactions No Had a fall/change in ADL's that may No increase risk of falls Signs or symptoms of abuse and/or No neglect since last visit Have you been in the hospital since your No last visit? Has dressing in place as prescribed Yes Has compression in place as prescribed Yes Has offloadiing in place as prescribed N/A Experienced any changes in pain level or No management Left Footwear Right Footwear Pain Scale: 0-10 Numeric Is Patient Pain Free? Yes - Nurse 1 - General Ulcer Measurement Start: 05/05/25 11:18 Freq: Status: Active Protocol: Activity Type Activity Date Activity User E-sign Co-sign Detail Recorded Client Recorded Date Recorded By Document 05/05/25 11:18 JF [id number] 05/05/25 11:20 JF Document 05/08/25 09:37 GM [id number] 05/08/25 09:42 GM Document 05/15/25 09:29 RB [id number] 05/15/25 09:49 RB 05/05/25 05/08/25 05/15/25 11:18 09:37 09:29 Wound Center Nurse 1 L Posterior leg -Combined with other wound No -Current Size (cm) - Length 0.4 -Current Size (cm) - Width 0.4 -Current Size (cm) - Depth 0.1 -Total Square Cm 0.16 -Date of Last Picture (Recall this 05/15/25 field) -Photo Taken Yes -Tunneling No -Undermining/Tunneling No -Circular Undermining No -Exudate Amt Medium -Exudate Type Serosanguineous -Wound Margin Distinct, Outline Attached -Granulation Quality [place] -Slough/Fibrin Yes -Necrosis Amt Medium (34-66%) -Necrotic Tissue Type Adherent Slough -Structure Exposed N/A -Texture (Leslye-wound Skin Appearance) Assessed, Friable -Moisture (Leslye-wound Skin Appearance) Assessed -Color (Leslye-wound Skin Appearance) Assessed, Hemosiderin Staining -Temperature (Leslye-wound Skin No Abnormality Appearance) (Pt Warm) -Tenderness on Palpation (Leslye-wound No Skin Appearance) -Ulcer Cleansing Wound Cleanser -Foul Odor after Cleansing No -Anesthetic Used 5% Lidocaine Gel #15 RLE lateral -Combined with other wound No No -Current Size (cm) - Length 6 4.5 -Current Size (cm) - Width 6 4.5 -Current Size (cm) - Depth 0.1 0.1 -Total Square Cm 36 20.25 -Date of Last Picture (Recall this 05/08/25 05/15/25 field) -Photo Taken Yes Yes -Epithelialization Small 1-33% -Tunneling No -Undermining/Tunneling No -Circular Undermining No -Exudate Amt Medium Medium -Exudate Type Serosanguineous Serosanguineous -Wound Margin Flat & Intact Distinct, Outline Attached -Granulation Amt Small (1-33%) Medium (34-66%) -Granulation Quality [place],Red [place] -Slough/Fibrin Yes Yes -Necrosis Amt Small (1-33%) Medium (34-66%) -Necrotic Tissue Type Adherent Slough Adherent Slough -Structure Exposed N/A N/A -Texture (Leslye-wound Skin Appearance) Assessed, Assessed, Excoriation Excoriation -Moisture (Leslye-wound Skin Appearance) Assessed,Dry/ Assessed Scaly -Color (Leslye-wound Skin Appearance) No Abnormality, Assessed Erythema -Temperature (Leslye-wound Skin No Abnormality No Abnormality Appearance) (Pt Warm) (Pt Warm) -Tenderness on Palpation (Leslye-wound No No Skin Appearance) -Ulcer Cleansing Soap and Water Wound Cleanser -Foul Odor after Cleansing No No -Anesthetic Used 5% Lidocaine 5% Lidocaine Gel Gel Lower Limb Edema Present Yes Yes Yes Right Calf (cm) 44.5 40.5 43 Right Ankle (cm) 30.8 28.4 26 Point of Measurement (cm from the distal 43.5 point) Left Calf (cm) 48.5 45 Point of measurement (cm from the medial 23.5 instep) Left Ankle (cm) 24.0 27 WC - Nurse 2 - General Ulcer CM Notes Start: 05/05/25 11:18 Freq: Status: Active Protocol: Activity Type Activity Date Activity User E-sign Co-sign Detail Recorded Client Recorded Date Recorded By Document 05/08/25 09:56 GM(2) [id number] 05/08/25 10:05 GM(2) Document 05/15/25 10:15 GM(2) [id number] 05/15/25 10:18 GM(2) 05/08/25 05/15/25 09:56 10:15 Wound Center Nurse 2 #1 Left Medial Lower Extremity -Time 09:56 -Correct Patient Yes -Correct Side, Site, Position Yes -Correct Procedure No -Procedure Performed No -Wound/Ulcer Outcome Healed- Epithelialized -Ulcer Cleansing Not Cleansed -Foul Odor after Cleansing No -Bioengineered Tissue No -Offloading No -Debridement - Subq, 1st 20sq cm No L Posterior leg -Time 10:03 10:15 -Correct Patient Yes Yes -Correct Side, Site, Position Yes Yes -Correct Procedure Yes Yes -Procedure Performed Yes Yes -Type of Procedure Debridement Debridement -Clinical Debridement Subcutaneous Subcutaneous -Tissue Removed Subcutaneous Subcutaneous -Post Debridement (cm) - Length 1.2 0.3 -Post Debridement (cm) - Width 1.5 0.6 -Post Debridement (cm) - Depth 0.1 0.1 -Total Square (Post) (cm) 1.80 0.18 -Area of Debridement (cm) - Length 1.2 0.3 -Area of Debridement (cm) - Width 1.5 0.6 -Total Square (Area) (cm) 1.80 0.18 -Tunneling No No -Undermining/Tunneling No No -Circular Undermining No No -Wound/Ulcer Outcome Not Healed Not Healed -Ulcer Cleansing Rinsed/ Rinsed/ Irrigated with Irrigated with Saline Saline -Foul Odor after Cleansing No No -Bioengineered Tissue No No -Bleeding Controlled with Pressure Pressure -Treatment Response Procedure Procedure Tolerated Well Tolerated Well -Offloading No No -Debridement - Subq, 1st 20sq cm No No #15 RLE lateral -Time 09:56 10:16 -Correct Patient Yes Yes -Correct Side, Site, Position Yes Yes -Correct Procedure Yes Yes -Procedure Performed Yes Yes -Type of Procedure Debridement Debridement -Clinical Debridement Subcutaneous Subcutaneous -Tissue Removed Subcutaneous Subcutaneous -Post Debridement (cm) - Length 9.0 4.2 -Post Debridement (cm) - Width 6.0 4.5 -Post Debridement (cm) - Depth 0.1 0.1 -Total Square (Post) (cm) 54.00 18.90 -Area of Debridement (cm) - Length 9.0 4.2 -Area of Debridement (cm) - Width 6.0 4.5 -Total Square (Area) (cm) 54.00 18.90 -Tunneling No -Undermining/Tunneling No -Circular Undermining No No -Wound/Ulcer Outcome Not Healed Not Healed -Ulcer Cleansing Rinsed/ Rinsed/ Irrigated with Irrigated with Saline Saline -Foul Odor after Cleansing No No -Bioengineered Tissue No No -Bleeding Controlled with Pressure Pressure -Treatment Response Procedure Procedure Tolerated Well Tolerated Well -Offloading No No -Debridement - Subq, 1st 20sq cm Yes Yes -Debridement, SubQ, ea addt'l 20sq cm 2 or part thereof Pain Scale: 0-10 Numeric Is Patient Pain Free? Yes Yes WC - Nurse 3 - General Ulcer D/C NN Start: 05/05/25 11:18 Freq: Status: Active Protocol: Activity Type Activity Date Activity User E-sign Co-sign Detail Recorded Client Recorded Date Recorded By Document 05/05/25 11:18 JF [id number] 05/05/25 11:20 JF Document 05/08/25 10:32 GM [id number] 05/08/25 10:37 GM Document 05/12/25 11:40 TS [id number] 05/12/25 12:12 TS Document 05/15/25 10:33 RB [id number] 05/15/25 10:34 RB 05/05/25 05/08/25 05/12/25 11:18 10:32 11:40 Pain Scale: 0-10 Numeric Is Patient Pain Free? Yes Yes Yes Wound Care Center Nurse 3 #1 Left Medial Lower Extremity -Ulcer Cleansing Rinsed/ Rinsed/ Soap and Water Irrigated with Irrigated with Saline Saline -Foul Odor after Cleansing No -Negative Pressure Wound Therapy N/A -Primary Dressing Applied Aquacel Extra NonAdherent NonAdherent Contact Layer, Contact Layer, Silicone Border Silicone Border Foam 4x4 Foam 4x4 -Primary Dressing Covered/Secured with Dry Gauze & Dry Gauze & Roll Gauze, Roll Gauze Secured with Tape -Patient Supplied Dressing Yes -Aquacel Extra 0 -Silicone Border Foam 4x4 1 1 L Posterior leg -Ulcer Cleansing Rinsed/ Soap and Water Irrigated with Saline -Foul Odor after Cleansing No -Negative Pressure Wound Therapy N/A -Primary Dressing Applied Aquacel Extra Aquacel Extra -Other Dressing ABD abd -Primary Dressing Covered/Secured with Dry Gauze & Roll Gauze -Patient Supplied Dressing Yes -Aquacel Extra 0 0 -Silicone Border Foam 4x4 0 1 #15 RLE lateral -Ulcer Cleansing Rinsed/ Soap and Water Irrigated with Saline -Foul Odor after Cleansing No -Negative Pressure Wound Therapy N/A -Primary Dressing Applied Aquacel Extra Aquacel Extra -Other Dressing ABD abd -Primary Dressing Covered/Secured with Dry Gauze & Roll Gauze -Patient Supplied Dressing Yes -Aquacel Extra 0 0 BLE -Lotion applied to leg before Yes compression wrap -Multi-Layered Wrap Application Unna Boot - Unna Boot - Unna Boot - Bilateral Bilateral Bilateral -Unna- Bilat (Qty applied) 1 1 1 Treatment Response Procedure Procedure Tolerated Well Tolerated Well WC - Visit Discharge Discharge Condition Stable Stable Stable Ambulatory Status Ambulatory, Walker Wheelchair Wheelchair Transportation Private Auto Private Auto Private Auto Accompanied by DAUGHTER daughter Medication Reconcilliation completed & No No provided to patient/care provider Clinical Summary of Care Provided Yes Yes 05/15/25 10:33 Pain Scale: 0-10 Numeric Is Patient Pain Free? Yes Wound Care Center Nurse 3 #1 Left Medial Lower Extremity -Ulcer Cleansing -Foul Odor after Cleansing -Negative Pressure Wound Therapy -Primary Dressing Applied -Primary Dressing Covered/Secured with -Patient Supplied Dressing -Aquacel Extra -Silicone Border Foam 4x4 L Posterior leg -Ulcer Cleansing -Foul Odor after Cleansing -Negative Pressure Wound Therapy -Primary Dressing Applied -Other Dressing aquacel extra -Primary Dressing Covered/Secured with -Patient Supplied Dressing Yes -Aquacel Extra -Silicone Border Foam 4x4 #15 RLE lateral -Ulcer Cleansing -Foul Odor after Cleansing -Negative Pressure Wound Therapy -Primary Dressing Applied -Other Dressing aquacel/abd -Primary Dressing Covered/Secured with -Patient Supplied Dressing -Aquacel Extra BLE -Lotion applied to leg before compression wrap -Multi-Layered Wrap Application Unna Boot - Bilateral -Unna- Bilat (Qty applied) 1 Treatment Response Procedure Tolerated Well WC - Visit Discharge Discharge Condition Stable Ambulatory Status Ambulatory Transportation Private Auto Accompanied by Medication Reconcilliation completed & No provided to patient/care provider Clinical Summary of Care Provided Yes Additional Wound Wound debrided: Left Calf Type of Debridement: Excisional debridement Anesthesia Used: 5% Lidocaine Gel Depth: Down to and including healthy tissue and in the subcutaneous layer Percentage of wound debrided: 100 Instrument Used: 5mm curette Tissue Removed: Slough and devitalized tissue Severity: Fat Layer Exposed Amount of bleeding with debridement: Mild Bleeding Controlled with: Pressure Patient tolerated procedure: Patient tolerated procedure well Assessment/Plan Assessment/Plan (1) Ulcer of left lower extremity with fat layer exposed: CODE(S): L97.922 - Non-pressure chronic ulcer of unspecified part of left lower leg with fat layer exposed (2) Lymphedema: CODE(S): I89.0 - Lymphedema, not elsewhere classified (3) Non-pressure chronic ulcer of left calf with fat layer exposed: CODE(S): L97.222 - Non-pressure chronic ulcer of left calf with fat layer exposed (4) Chronic venous insufficiency: CODE(S): I87.2 - Venous insufficiency (chronic) (peripheral) (5) Lipodermatosclerosis of both lower extremities: CODE(S): M79.3 - Panniculitis, unspecified (6) Type 2 diabetes mellitus without complications: CODE(S): E11.9 - Type 2 diabetes mellitus without complications (7) Ulcer of right lower extremity with fat layer exposed: CODE(S): L97.912 - Non-pressure chronic ulcer of unspecified part of right lower leg with fat layer exposed PLAN: Plan Debridement done as documented above, procedure was well-tolerated. Significant improvement noted since her last visit. No new concerns reported at this time. Tolerated Unna boot better this week. Continue Aquacel, Adaptic and foam dressing, leave in place until nurse visit on Monday. Strongly advised that she comply with compression, leg elevation and exercise as tolerated. Continue other chronic wound care measures as previously discussed. Prescription for CircAid's sent, we discussed compliance with compression following healing. Patient and daughter voiced understanding. Has used CircAid in the past and tolerated it. She was advised to call with any questions or concerns. Follow-up on Monday for nurse visit and in 1 week with me. This note was generated with [employer] dictation software. It may contain incorrect words, spelling, and punctuation that were not noted in checking the note before signing.
--- NOTE | 2025-05-16 11:37 | WC ---
PHOTO-RIGHT LE CLUSTER 05/15/25
[2025-05-22 09:56] VITALS: BP 148/66; PULSE 88; RESP 18; TEMP 36.2
--- NOTE | 2025-05-22 10:25 | PCM.WC.PN ---
History of Present Illness Date of Service: 05/22/25 Chief Complaint: Left lower extremity ulceration History of Wound: Ms. Soares is an 84-year-old who is a transfer of care to pa. Had previously seen podiatry/wound care here. Being seen for lower extremity ulcerations. Chronic history of venous stasis/venous ulcerations. Also follows up with vascular recently had studies done. Difficulty with compression compliance due to other chronic morbidities/factors. Also very largely sedentary sitting in a chair most of the day. Had an Unna boot on which she did not tolerate as well, she states that it felt too tight this time but had tolerated the first time it was applied 2 weeks prior. History of diabetes mellitus which is well-controlled, currently not on medication for this. She states that she feels well otherwise. Appetite is good. No chills, fever or new concerns reported. Progress of Wound: Took off both Unna boots due to pain. No pain at rest, pain with initial movement but no pain subsequently. Significant bilateral lower extremity edema noted today however, no open areas. Had CircAid's at home but did not use. Objective Data Objective Data Vital Signs: Vital Signs Temp Pulse Resp BP O2 Del Method 97.2 F L 88 18 148/66 H Room Air 05/22/25 09:56 05/22/25 09:56 05/22/25 09:56 05/22/25 09:56 05/22/25 09:56 Oxygen Delivery Method Room Air Charges/Coding Visit Charges Office Visits / Consults: 49102 OV L3 Est 20min Physical Exam Const alert, oriented x3 and no apparent distress General Appearance: cooperative and comfortable HEENT normocephalic, head/scalp atraumatic and hearing grossly normal bilaterally Eyes EOMs intact bilaterally General Eye: normal appearance of both eyes Neck full ROM General: normal visual inspection Resp normal respiratory effort Effort and Inspection: able to speak in complete sentences Extremity General Extremity: edema Neuro oriented x3, CN's II-XII intact bilaterally, moves all extremities and no focal motor deficits Psych mental status grossly normal, thought process normal, cooperative and affect normal Debridement Note Debridement Note Post-Debridement Measurements and Additional Note: Post-Debridement Measurements/Treatment JEAN PAUL - Nurse 1 - General Ulcer Assessment Start: 05/05/25 11:18 Freq: Status: Active Protocol: DYAN Activity Type Activity Date Activity User E-sign Co-sign Detail Recorded Client Recorded Date Recorded By Document 05/05/25 11:18 JF [id number] 05/05/25 11:20 JF Document 05/08/25 09:37 GM [id number] 05/08/25 09:42 GM Document 05/12/25 11:40 TS [id number] 05/12/25 12:12 TS Document 05/15/25 09:29 RB [id number] 05/15/25 09:49 RB Document 05/22/25 09:56 RB [id number] 05/22/25 09:59 RB 05/05/25 05/08/25 05/12/25 11:18 09:37 11:40 WC - Today's Visit Information Type of service Nurse-only Follow-up Visit Nurse-only Visit (Physician/TRAFFIC SERGEANT Visit ) Arrival Mode Ambulatory, Wheelchair Wheelchair Stretcher Transfer Assistance Manual None Accompanied by DAUGHTER Patient Identification Verified (Name & Yes Yes Yes ) Patient Requires Transmission-Based No No No Precautions Safety Precautions Fall Prevention Vital Signs Temperature (97.8 F-99.1 F) 97.2 F L 97 F L 96.4 F L Temperature Source Temporal Temporal Temporal Pulse Rate (60-100) 94 83 84 Pulse Location Monitor Monitor Monitor Respiratory Rate (12-18) 16 18 16 Respiratory rate source Observation Observation Observation Oxygen Delivery Method Room Air Room Air Blood Pressure (90/60-120/80) 138/72 H 156/71 H 153/80 H Blood Pressure Mean (mm Hg) 94 99 104 Source Monitor Monitor Monitor Position Semi-Fowlers Semi-Fowlers Sitting Blood Pressure Location Right Arm Left Arm Left Arm History Since Last Visit- (Skip if this is Patient's initial visit) Have you changed medications since your Yes No No last visit? Any new allergies or adverse reactions No No Had a fall/change in ADL's that may No No increase risk of falls Signs or symptoms of abuse and/or No No neglect since last visit Have you been in the hospital since your No No last visit? Has dressing in place as prescribed Yes Yes Has compression in place as prescribed Yes Yes Has offloadiing in place as prescribed N/A N/A Experienced any changes in pain level or No No management Left Footwear Regular Shoe Regular Shoe Right Footwear Regular Shoe Regular Shoe Pain Scale: 0-10 Numeric Is Patient Pain Free? Yes Yes Yes 05/15/25 05/22/25 09:29 09:56 WC - Today's Visit Information Type of service Follow-up Visit Follow-up Visit (Physician/TRAFFIC SERGEANT (Physician/TRAFFIC SERGEANT ) ) Arrival Mode Cane Cane,Wheelchair Transfer Assistance None None Accompanied by Patient Identification Verified (Name & Yes Yes ) Patient Requires Transmission-Based No No Precautions Safety Precautions Vital Signs Temperature (97.8 F-99.1 F) 96.8 F L 97.2 F L Temperature Source Temporal Temporal Pulse Rate (60-100) 83 88 Pulse Location Monitor Monitor Respiratory Rate (12-18) 18 18 Respiratory rate source Observation Observation Oxygen Delivery Method Room Air Room Air Blood Pressure (90/60-120/80) 160/100 H 148/66 H Blood Pressure Mean (mm Hg) 120 93 Source Monitor Monitor Position Semi-Fowlers Semi-Fowlers Blood Pressure Location Right Arm Left Arm History Since Last Visit- (Skip if this is Patient's initial visit) Have you changed medications since your No No last visit? Any new allergies or adverse reactions No No Had a fall/change in ADL's that may No No increase risk of falls Signs or symptoms of abuse and/or No No neglect since last visit Have you been in the hospital since your No No last visit? Has dressing in place as prescribed Yes Yes Has compression in place as prescribed Yes Yes Has offloadiing in place as prescribed N/A N/A Experienced any changes in pain level or No No management Left Footwear Right Footwear Pain Scale: 0-10 Numeric Is Patient Pain Free? Yes Yes - Nurse 1 - General Ulcer Measurement Start: 05/05/25 11:18 Freq: Status: Active Protocol: Activity Type Activity Date Activity User E-sign Co-sign Detail Recorded Client Recorded Date Recorded By Document 05/05/25 11:18 JF [id number] 05/05/25 11:20 JF Document 05/08/25 09:37 GM [id number] 05/08/25 09:42 GM Document 05/15/25 09:29 RB [id number] 05/15/25 09:49 RB Document 05/22/25 09:56 RB [id number] 05/22/25 09:59 RB 05/05/25 05/08/25 05/15/25 11:18 09:37 09:29 Wound Center Nurse 1 L Posterior leg -Combined with other wound No -Current Size (cm) - Length 0.4 -Current Size (cm) - Width 0.4 -Current Size (cm) - Depth 0.1 -Total Square Cm 0.16 -Date of Last Picture (Recall this 05/15/25 field) -Photo Taken Yes -Tunneling No -Undermining/Tunneling No -Circular Undermining No -Exudate Amt Medium -Exudate Type Serosanguineous -Wound Margin Distinct, Outline Attached -Granulation Amt -Granulation Quality [place] -Slough/Fibrin Yes -Necrosis Amt Medium (34-66%) -Necrotic Tissue Type Adherent Slough -Structure Exposed N/A -Texture (Leslye-wound Skin Appearance) Assessed, Friable -Moisture (Leslye-wound Skin Appearance) Assessed -Color (Leslye-wound Skin Appearance) Assessed, Hemosiderin Staining -Temperature (Leslye-wound Skin No Abnormality Appearance) (Pt Warm) -Tenderness on Palpation (Leslye-wound No Skin Appearance) -Ulcer Cleansing Wound Cleanser -Foul Odor after Cleansing No -Anesthetic Used 5% Lidocaine Gel #15 RLE lateral -Combined with other wound No No -Current Size (cm) - Length 6 4.5 -Current Size (cm) - Width 6 4.5 -Current Size (cm) - Depth 0.1 0.1 -Total Square Cm 36 20.25 -Date of Last Picture (Recall this 05/08/25 05/15/25 field) -Photo Taken Yes Yes -Epithelialization Small 1-33% -Tunneling No -Undermining/Tunneling No -Circular Undermining No -Exudate Amt Medium Medium -Exudate Type Serosanguineous Serosanguineous -Wound Margin Flat & Intact Distinct, Outline Attached -Granulation Amt Small (1-33%) Medium (34-66%) -Granulation Quality [place] -Slough/Fibrin Yes Yes -Necrosis Amt Small (1-33%) Medium (34-66%) -Necrotic Tissue Type Adherent Slough Adherent Slough -Structure Exposed N/A N/A -Texture (Leslye-wound Skin Appearance) Assessed, Assessed, Excoriation Excoriation -Moisture (Leslye-wound Skin Appearance) Assessed,Dry/ Assessed Scaly -Color (Leslye-wound Skin Appearance) No Abnormality, Assessed Erythema -Temperature (Leslye-wound Skin No Abnormality No Abnormality Appearance) (Pt Warm) (Pt Warm) -Tenderness on Palpation (Leslye-wound No No Skin Appearance) -Ulcer Cleansing Soap and Water Wound Cleanser -Foul Odor after Cleansing No No -Anesthetic Used 5% Lidocaine 5% Lidocaine Gel Gel Lower Limb Edema Present Yes Yes Yes Right Calf (cm) 44.5 40.5 43 Right Ankle (cm) 30.8 28.4 26 Point of Measurement (cm from the distal 43.5 point) Left Calf (cm) 48.5 45 Point of measurement (cm from the medial 23.5 instep) Left Ankle (cm) 24.0 27 05/22/25 09:56 Wound Center Nurse 1 L Posterior leg -Combined with other wound No -Current Size (cm) - Length 0.1 -Current Size (cm) - Width 0.1 -Current Size (cm) - Depth 0.1 -Total Square Cm 0.01 -Date of Last Picture (Recall this 05/22/25 field) -Photo Taken Yes -Tunneling No -Undermining/Tunneling No -Circular Undermining No -Exudate Amt Small -Exudate Type Serosanguineous -Wound Margin Distinct, Outline Attached -Granulation Amt Medium (34-66%) -Granulation Quality [place] -Slough/Fibrin Yes -Necrosis Amt Medium (34-66%) -Necrotic Tissue Type Adherent Slough -Structure Exposed N/A -Texture (Leslye-wound Skin Appearance) Localized Edema -Moisture (Leslye-wound Skin Appearance) Assessed -Color (Leslye-wound Skin Appearance) Assessed -Temperature (Leslye-wound Skin No Abnormality Appearance) (Pt Warm) -Tenderness on Palpation (Leslye-wound No Skin Appearance) -Ulcer Cleansing Wound Cleanser -Foul Odor after Cleansing No -Anesthetic Used 5% Lidocaine Gel #15 RLE lateral -Combined with other wound No -Current Size (cm) - Length 0.1 -Current Size (cm) - Width 0.1 -Current Size (cm) - Depth 0.1 -Total Square Cm 0.01 -Date of Last Picture (Recall this 05/22/25 field) -Photo Taken Yes -Epithelialization -Tunneling No -Undermining/Tunneling No -Circular Undermining No -Exudate Amt Small -Exudate Type Serosanguineous -Wound Margin Distinct, Outline Attached -Granulation Amt Medium (34-66%) -Granulation Quality [place] -Slough/Fibrin Yes -Necrosis Amt Medium (34-66%) -Necrotic Tissue Type Adherent Slough -Structure Exposed N/A -Texture (Leslye-wound Skin Appearance) Assessed, Localized Edema -Moisture (Leslye-wound Skin Appearance) Assessed -Color (Leslye-wound Skin Appearance) Assessed -Temperature (Leslye-wound Skin No Abnormality Appearance) (Pt Warm) -Tenderness on Palpation (Leslye-wound No Skin Appearance) -Ulcer Cleansing Wound Cleanser -Foul Odor after Cleansing No -Anesthetic Used 5% Lidocaine Gel Lower Limb Edema Present Yes Right Calf (cm) 47.7 Right Ankle (cm) 25 Point of Measurement (cm from the distal point) Left Calf (cm) 50 Point of measurement (cm from the medial instep) Left Ankle (cm) 27 WC - Nurse 2 - General Ulcer CM Notes Start: 05/05/25 11:18 Freq: Status: Active Protocol: Activity Type Activity Date Activity User E-sign Co-sign Detail Recorded Client Recorded Date Recorded By Document 05/08/25 09:56 GM(2) [id number] 05/08/25 10:05 GM(2) Document 05/15/25 10:15 GM(2) [id number] 05/15/25 10:18 GM(2) Document 05/22/25 10:16 GM(2) [id number] 05/22/25 10:18 GM(2) 05/08/25 05/15/25 05/22/25 09:56 10:15 10:16 Wound Center Nurse 2 #1 Left Medial Lower Extremity -Time 09:56 -Correct Patient Yes -Correct Side, Site, Position Yes -Correct Procedure No -Procedure Performed No -Wound/Ulcer Outcome Healed- Epithelialized -Ulcer Cleansing Not Cleansed -Foul Odor after Cleansing No -Bioengineered Tissue No -Offloading No -Debridement - Subq, 1st 20sq cm No L Posterior leg -Time 10:03 10:15 10:17 -Correct Patient Yes Yes Yes -Correct Side, Site, Position Yes Yes Yes -Correct Procedure Yes Yes No -Procedure Performed Yes Yes No -Type of Procedure Debridement Debridement -Clinical Debridement Subcutaneous Subcutaneous -Tissue Removed Subcutaneous Subcutaneous -Post Debridement (cm) - Length 1.2 0.3 -Post Debridement (cm) - Width 1.5 0.6 -Post Debridement (cm) - Depth 0.1 0.1 -Total Square (Post) (cm) 1.80 0.18 -Area of Debridement (cm) - Length 1.2 0.3 -Area of Debridement (cm) - Width 1.5 0.6 -Total Square (Area) (cm) 1.80 0.18 -Tunneling No No -Undermining/Tunneling No No -Circular Undermining No No -Wound/Ulcer Outcome Not Healed Not Healed Healed- Epithelialized -Ulcer Cleansing Rinsed/ Rinsed/ Not Cleansed Irrigated with Irrigated with Saline Saline -Foul Odor after Cleansing No No No -Bioengineered Tissue No No -Bleeding Controlled with Pressure Pressure NA -Treatment Response Procedure Procedure Tolerated Well Tolerated Well -Offloading No No No -Debridement - Subq, 1st 20sq cm No No #15 RLE lateral -Time 09:56 10:16 10:17 -Correct Patient Yes Yes Yes -Correct Side, Site, Position Yes Yes Yes -Correct Procedure Yes Yes No -Procedure Performed Yes Yes No -Type of Procedure Debridement Debridement -Clinical Debridement Subcutaneous Subcutaneous -Tissue Removed Subcutaneous Subcutaneous -Post Debridement (cm) - Length 9.0 4.2 -Post Debridement (cm) - Width 6.0 4.5 -Post Debridement (cm) - Depth 0.1 0.1 -Total Square (Post) (cm) 54.00 18.90 -Area of Debridement (cm) - Length 9.0 4.2 -Area of Debridement (cm) - Width 6.0 4.5 -Total Square (Area) (cm) 54.00 18.90 -Tunneling No No -Undermining/Tunneling No No -Circular Undermining No No No -Wound/Ulcer Outcome Not Healed Not Healed Healed- Epithelialized -Ulcer Cleansing Rinsed/ Rinsed/ Not Cleansed Irrigated with Irrigated with Saline Saline -Foul Odor after Cleansing No No No -Bioengineered Tissue No No No -Bleeding Controlled with Pressure Pressure NA -Treatment Response Procedure Procedure Tolerated Well Tolerated Well -Offloading No No No -Debridement - Subq, 1st 20sq cm Yes Yes -Debridement, SubQ, ea addt'l 20sq cm 2 or part thereof Pain Scale: 0-10 Numeric Is Patient Pain Free? Yes Yes Yes WC - Nurse 3 - General Ulcer D/C NN Start: 05/05/25 11:18 Freq: Status: Active Protocol: Activity Type Activity Date Activity User E-sign Co-sign Detail Recorded Client Recorded Date Recorded By Document 05/05/25 11:18 JF [id number] 05/05/25 11:20 JF Document 05/08/25 10:32 GM [id number] 05/08/25 10:37 GM Document 05/12/25 11:40 TS [id number] 05/12/25 12:12 TS Document 05/15/25 10:33 RB [id number] 05/15/25 10:34 RB 05/05/25 05/08/25 05/12/25 11:18 10:32 11:40 Pain Scale: 0-10 Numeric Is Patient Pain Free? Yes Yes Yes Wound Care Center Nurse 3 #1 Left Medial Lower Extremity -Ulcer Cleansing Rinsed/ Rinsed/ Soap and Water Irrigated with Irrigated with Saline Saline -Foul Odor after Cleansing No -Negative Pressure Wound Therapy N/A -Primary Dressing Applied Aquacel Extra NonAdherent NonAdherent Contact Layer, Contact Layer, Silicone Border Silicone Border Foam 4x4 Foam 4x4 -Primary Dressing Covered/Secured with Dry Gauze & Dry Gauze & Roll Gauze, Roll Gauze Secured with Tape -Patient Supplied Dressing Yes -Aquacel Extra 0 -Silicone Border Foam 4x4 1 1 L Posterior leg -Ulcer Cleansing Rinsed/ Soap and Water Irrigated with Saline -Foul Odor after Cleansing No -Negative Pressure Wound Therapy N/A -Primary Dressing Applied Aquacel Extra Aquacel Extra -Other Dressing ABD abd -Primary Dressing Covered/Secured with Dry Gauze & Roll Gauze -Patient Supplied Dressing Yes -Aquacel Extra 0 0 -Silicone Border Foam 4x4 0 1 #15 RLE lateral -Ulcer Cleansing Rinsed/ Soap and Water Irrigated with Saline -Foul Odor after Cleansing No -Negative Pressure Wound Therapy N/A -Primary Dressing Applied Aquacel Extra Aquacel Extra -Other Dressing ABD abd -Primary Dressing Covered/Secured with Dry Gauze & Roll Gauze -Patient Supplied Dressing Yes -Aquacel Extra 0 0 BLE -Lotion applied to leg before Yes compression wrap -Multi-Layered Wrap Application Unna Boot - Unna Boot - Unna Boot - Bilateral Bilateral Bilateral -Unna- Bilat (Qty applied) 1 1 1 Treatment Response Procedure Procedure Tolerated Well Tolerated Well WC - Visit Discharge Discharge Condition Stable Stable Stable Ambulatory Status Ambulatory, Walker Wheelchair Wheelchair Transportation Private Auto Private Auto Private Auto Accompanied by DAUGHTER daughter Medication Reconcilliation completed & No No provided to patient/care provider Clinical Summary of Care Provided Yes Yes 05/15/25 10:33 Pain Scale: 0-10 Numeric Is Patient Pain Free? Yes Wound Care Center Nurse 3 #1 Left Medial Lower Extremity -Ulcer Cleansing -Foul Odor after Cleansing -Negative Pressure Wound Therapy -Primary Dressing Applied -Primary Dressing Covered/Secured with -Patient Supplied Dressing -Aquacel Extra -Silicone Border Foam 4x4 L Posterior leg -Ulcer Cleansing -Foul Odor after Cleansing -Negative Pressure Wound Therapy -Primary Dressing Applied -Other Dressing aquacel extra -Primary Dressing Covered/Secured with -Patient Supplied Dressing Yes -Aquacel Extra -Silicone Border Foam 4x4 #15 RLE lateral -Ulcer Cleansing -Foul Odor after Cleansing -Negative Pressure Wound Therapy -Primary Dressing Applied -Other Dressing aquacel/abd -Primary Dressing Covered/Secured with -Patient Supplied Dressing -Aquacel Extra BLE -Lotion applied to leg before compression wrap -Multi-Layered Wrap Application Unna Boot - Bilateral -Unna- Bilat (Qty applied) 1 Treatment Response Procedure Tolerated Well WC - Visit Discharge Discharge Condition Stable Ambulatory Status Ambulatory Transportation Private Auto Accompanied by Medication Reconcilliation completed & No provided to patient/care provider Clinical Summary of Care Provided Yes Assessment/Plan Assessment/Plan (1) Ulcer of left lower extremity with fat layer exposed: CODE(S): L97.922 - Non-pressure chronic ulcer of unspecified part of left lower leg with fat layer exposed (2) Lymphedema: CODE(S): I89.0 - Lymphedema, not elsewhere classified (3) Non-pressure chronic ulcer of left calf with fat layer exposed: CODE(S): L97.222 - Non-pressure chronic ulcer of left calf with fat layer exposed (4) Chronic venous insufficiency: CODE(S): I87.2 - Venous insufficiency (chronic) (peripheral) (5) Lipodermatosclerosis of both lower extremities: CODE(S): M79.3 - Panniculitis, unspecified (6) Type 2 diabetes mellitus without complications: CODE(S): E11.9 - Type 2 diabetes mellitus without complications (7) Ulcer of right lower extremity with fat layer exposed: CODE(S): L97.912 - Non-pressure chronic ulcer of unspecified part of right lower leg with fat layer exposed PLAN: Plan Again, took off Unna boots a few days ago on the left and yesterday on the right due to pain. Significant lower extremity edema worse on the left than right. Thankfully, no open areas appreciated. Some areas of erythema. Now has CircAid's for both lower extremities but did not utilize this at home. Cover areas of erythema with Adaptic, foam dressing and 3M wrap for compression. Strongly advised that she comply with compression, leg elevation and exercise as tolerated. She was advised to come in on Monday with her CircAid's for a nurse visit. She will be instructed on how to use CircAid's when she comes in on Monday for nurse visit and then she was advised that she would wear those every day. May take off at night if she sleeps in bed/lays flat. Continue other chronic wound care measures as previously discussed. Patient and daughter voiced understanding. She was advised to call with any questions or concerns. Follow-up on Monday for nurse visit and in 3 weeks with me due to the holiday. This note was generated with [employer] dictation software. It may contain incorrect words, spelling, and punctuation that were not noted in checking the note before signing.
--- NOTE | 2025-05-23 09:24 | WC ---
PHOTO-LLE 05/22/25
--- NOTE | 2025-05-23 09:25 | WC ---
PHOTO-RLE 05/22/25
[2025-05-26 10:18] VITALS: BP 156/64; PULSE 95; RESP 16; TEMP 36.3
== END 2025-06-04 23:59 | disposition home or self-care (01) ==
LOC: WC 10:30
PROVIDERS: PCP Nurse Practitioner Family; Referring Provider Nurse Practitioner Family; Visit Provider Internal Medicine
DX: E11.622 Type 2 diabetes mellitus with other skin ulcer (principal); L97.222 Non-pressure chronic ulcer of left calf with fat layer exposed; I89.0 Lymphedema, not elsewhere classified; I87.2 Venous insufficiency (chronic) (peripheral); M79.3 Panniculitis, unspecified
CPT/HCPCS: 11042; 11045; 29580; 29581; 99212; 99213; G0463